=== PATIENT | male | born 1945 | race Caucasian/White ===

== ENCOUNTER 2021-02-17 13:57 | Observation (INO) | payer MEDICARE, SELFPAY ==
[2021-02-17] VITALS (8 sets, daily range): BP systolic 119–151; BP diastolic 77–97; PULSE 59–61; RESP 14–26; TEMP 36.3–37; O2SAT 90–99; BMI 18.9; BMI 19.3
--- NOTE | 2021-02-17 14:40 | EKG12_ITS ---
Test Reason : FATIGUE Blood Pressure : / mmHG Vent. Rate : 118 BPM Atrial Rate : 118 BPM P-R Int : 000 ms QRS Dur : 090 ms QT Int : 244 ms P-R-T Axes : 000 -89 -74 degrees QTc Int : 342 ms Electronic Atrial Pacemaker Low voltage QRS Left axis deviation Abnormal ECG Confirmed by ROSEANN BALES, ELIA ([id number]), editor newspaper BRANDO CHAVEZ ([id number]) on 02/21/2021 1:21:56 PM Referred By: ROBERT Confirmed By:ELIA WHITFIELD MD
--- NOTE | 2021-02-17 14:41 | EX.ED.DYSGE1 ---
HPI History of Present Illness Chief Complaint: Fatigue Detail of Chief Complaint: Fatigue and not feeling well for about a week Informant: patient Narrative Narrative: Patient presents to the emergency department complaining of feeling tired and having no energy for about a week or so. Patient had decreased p.o. intake and has early satiety. Patient has intermittent upper abdominal pain. He has history of a stent for AAA repair in his abdomen in 2012. Patient has shortness of breath and a cough that is chronic as he has COPD. Patient wears as needed oxygen at home mostly at night 4 L. Patient has pacemaker that is scheduled to be replaced soon as he has had it for 13 years. He denies any chest pain. He denies vomiting or diarrhea. He denies blood in stool or black tarry stool. Patient has been losing weight and has lost 20 to 25 pounds recently. Patient denies any fevers. He denies urinary symptoms. Prior similar symptoms: No PFSH PFS Medical History (Updated 02/17/21 @ 16:[address] Juan Pablo Hopper, DO) AAA (abdominal aortic aneurysm) COPD (chronic obstructive pulmonary disease) Coronary artery disease Emphysema lung High cholesterol Hypertension Myocardial infarct Pacemaker Home Medications albuterol sulfate 2.5 mg INHALATION Q6H PRN 02/17/21 [History Last Taken Unknown] aspirin 81 mg PO DAILY 02/17/21 [History Last Taken Unknown] atorvastatin 10 mg PO DAILY 02/17/21 [History Last Taken Unknown] budesonide-formoterol 2 puff INHALATION Q12H 02/17/21 [History Last Taken Unknown] folic acid 1 mg PO DAILY 02/17/21 [History Last Taken Unknown] ipratropium-albuterol 3 ml INHALATION Q6H 02/17/21 [History Last Taken Unknown] metoprolol tartrate 25 mg PO BID 02/17/21 [History Last Taken Unknown] midodrine 5 mg PO DAILY 02/17/21 [History Last Taken Unknown] nitroglycerin [Nitrostat] 0.4 mg SUBLINGUAL Q5M PRN 02/17/21 [History Last Taken Unknown] tiotropium bromide [Spiriva Respimat] 2 puff INHALATION DAILY 02/17/21 [History Last Taken Unknown] Allergy/AdvReac Type Severity Reaction Status Date / Time clopidogrel [From Plavix] Allergy Hives Verified 02/17/21 14:03 Penicillins Allergy Hives Verified 02/17/21 14:04 tamsulosin [From Flomax] Allergy Other Verified 02/17/21 14:03 Surgical History (Updated 02/17/21 @ 14:27 by Fouzia Villeda) Previous back surgery Social History Smoking Status: Current every day smoker tobacco type: cigarettes ROS ROS ED ROS Narrative Generalized weakness Constitutional Constitutional ED: Reports systems reviewed and no addt'l complaints, except as documented; Denies body ache(s), change in weight or chills Eyes Eyes: Denies acute decrease in peripheral vision, change in vision, double vision or loss of vision ENT ENT ED: Reports none; Denies ear pain, lip swelling, loss taste/smell, neck pain, otalgia or sore throat Cardiovascular Cardiovascular: Reports none; Denies abdominal pain, chest pain with activity, leg edema, lightheadedness, palpitations, rapid heart rate or syncope Respiratory/Chest Respiratory/Chest: Reports none, cough and dyspnea; Denies change in mental status, dry cough, hemoptysis, shortness of breath at rest or shortness of breath with exertion Gastrointestinal Gastrointestinal: Reports none and abdominal pain; Denies change in stool character, diarrhea, hematemesis, hematochezia, melena, rectal bleeding or vomiting Genitourinary Genitourinary ED: Reports none; Denies abdominal discomfort, anuria, dysuria, genital pain or polyuria Musculoskeletal Musculoskeletal: Reports none; Denies arthralgias, back pain, difficulty walking, extremity pain, muscle weakness or myalgias Integumentary Reports none; Denies abscess or rash Neurologic Neurologic: Reports none; Denies abnormal gait, confusion, focal weakness, frequent falls, headache(s), loss of vision, numbness, paresthesias, radicular pain, vertigo or weakness Psychiatric Psychiatric: Reports systems reviewed and no addt'l complaints, except as documented and none; Denies behavioral changes, confusion, difficulty concentrating, hallucinations, suicidal ideation, tactile hallucinations or visual hallucinations Endocrine Endocrinology: Denies none, cold intolerance, excessive sweating, fatigue or heat intolerance Hematologic/Lymphatic Hematologic/Lymphatic: Reports none; Denies anemia, easy bleeding or easy bruising Allergic/Immunologic Allergic/Immunologic ED: Denies as per HPI, none, lip swelling, mouth swelling, throat swelling, tongue swelling or hives EXAM Physical Exam Const Vital Signs: 02/17/21 13:59 02/17/21 14:15 02/17/21 14:58 Temperature 97.4 F L Temperature Source Temporal Pulse Rate 59 L 60 Respiratory Rate 14 20 H Respiratory Effort Normal Respiratory Pattern Normal Blood Pressure 124/81 H 119/77 Blood Pressure Mean 95 91 Pulse Ox 90 97 Oxygen Delivery Method Room Air Room Air 02/17/21 15:50 Temperature Temperature Source Pulse Rate 60 Respiratory Rate 16 Respiratory Effort Respiratory Pattern Blood Pressure 142/82 H Blood Pressure Mean 102 Pulse Ox 99 Oxygen Delivery Method Positive well nourished and well developed General Appearance ED: well developed and NAD HEENT Reports TM's clear and moist mucous membranes normocephalic and atraumatic; Negative for trauma or tenderness Tympanic Membrane ED: Yes TM's clear Eyes PERRL and EOMs intact bilaterally General Eye ED: Negative for pale conjunctiva or scleral icterus Neck no lymphadenopathy, supple and no JVD General: Negative for tenderness Chest Wall inspection of chest normal and palpation of chest normal Chest: Negative for tenderness Resp normal respiratory effort and clear to auscultation bilaterally Effort and Inspection: Negative for respiratory distress or pain with movement Auscultation: Negative for rhonchi, wheezes or diminished lung sounds Cardio regular rate, regular rhythm, S1 normal heart sound, S2 normal heart sound and no murmurs Peripheral Pulses: pulses 2+ throughout GI normal to inspection, nondistended, normoactive bowel sounds, soft to palpation, non-distended and no masses GI Narrative: Some mild tenderness in the epigastric region with mild guarding. There is no rebound, rigidity, or peritoneal signs. Palpation: tender Back/Spine no CVA tenderness and no thoracic nor lumbar tenderness Extremity normal to inspection General Extremety ED: Negative for edema General Extremity: Negative for edema Neuro oriented x3, CN's II-XII intact bilaterally, no sensory deficits noted and gait normal Sensorium / Orientation: awake, alert, oriented to person, oriented to place and oriented to time Motor Exam: strength 5/5 throughout and strength abnormal Psych mental status grossly normal Skin no rashes or lesions noted and no wounds MDM MDM MDM Narrative Medical decision making narrative: Patient was started on Rocephin 1 g IV. Family is concerned about patient going home as he is having hard time ambulating and generally is very weak. Case discussed with hospitalist will evaluate patient for possible admission. Lab Data Attestation: I reviewed the patient's lab results. Labs: Laboratory Results - last 24 hr 02/17/21 02/17/21 02/17/21 14:50 14:50 14:50 WBC 3.0 L RBC 3.67 L Hgb 11.1 L Hct 33.7 L MCV 91.8 MCH 30.2 MCHC 32.9 RDW Std Deviation 52.6 H RDW Coeff of Jimbo 15.5 H Plt Count 125 L MPV 10.5 Immature Gran % (Auto) 0.700 Neut % (Auto) 71.9 H Lymph % (Auto) 12.2 L [place] % (Auto) 14.2 H Eos % (Auto) 0.3 Baso % (Auto) 0.7 Absolute Neuts (auto) 2.2 Absolute Lymphs (auto) 0.37 L Nucleated RBC % 0 Differential Comment SCANNED Diff Path Review May foll Sodium 136 Potassium 4.1 Chloride 105 Carbon Dioxide 27.0 Anion Gap 4 L BUN 24 H Creatinine 1.15 Estim Creat Clear Calc 52.60 Est GFR (MDRD) Af Amer 80 Est GFR (MDRD) Non-Af 66 BUN/Creatinine Ratio 20.9 H Glucose 90 Lactic Acid 1.0 Calcium 8.6 Total Bilirubin 0.50 AST 26 ALT 18 Alkaline Phosphatase 55 Troponin I High Sens 10.6 Total Protein 6.1 L Albumin 2.9 L Globulin 3.2 Albumin/Globulin Ratio 0.9 Lipase 207 Urine Color Urine Clarity Urine pH Ur Specific [place] Urine Protein Urine Glucose (UA) Urine Ketones Urine Occult Blood Urine Nitrite Urine Bilirubin Urine Urobilinogen Ur Leukocyte Esterase Urine RBC Urine WBC Ur Squamous Epith Cells Urine Bacteria Urine Mucus 02/17/21 16:00 WBC RBC Hgb Hct MCV MCH MCHC RDW Std Deviation RDW Coeff of Jimbo Plt Count MPV Immature Gran % (Auto) Neut % (Auto) Lymph % (Auto) [place] % (Auto) Eos % (Auto) Baso % (Auto) Absolute Neuts (auto) Absolute Lymphs (auto) Nucleated RBC % Differential Comment Diff Path Review Sodium Potassium Chloride Carbon Dioxide Anion Gap BUN Creatinine Estim Creat Clear Calc Est GFR (MDRD) Af Amer Est GFR (MDRD) Non-Af BUN/Creatinine Ratio Glucose Lactic Acid Calcium Total Bilirubin AST ALT Alkaline Phosphatase Troponin I High Sens Total Protein Albumin Globulin Albumin/Globulin Ratio Lipase Urine Color Yellow Urine Clarity Cloudy Urine pH 6.0 Ur Specific [place] 1.020 Urine Protein 100 H Urine Glucose (UA) Normal Urine Ketones Negative Urine Occult Blood 25 H Urine Nitrite Positive H Urine Bilirubin Negative Urine Urobilinogen Normal Ur Leukocyte Esterase 500 H Urine RBC 0 SEEN Urine WBC 50-100 SEEN Ur Squamous Epith Cells 0-5 SEEN Urine Bacteria 4+ Urine Mucus 0 SEEN Radiography Diagnostic Testing: Radiology Impression Chest X-Ray 02/17/21 15:15 IMPRESSION: Pulmonary hyperinflation with no acute pulmonary abnormality. at 1546 Reported and signed by: Colton Alexander MD Electronically Signed: Colton Alexander MD at 15:44 EDT Tel , Service support , 1 view chest x-ray interpreted by myself as hyperinflation with no acute disease process. Radiology in agreement. EKG Initial EKG: Attestation: I personally reviewed and interpreted this EKG as follows: Comments: Ventricularly paced rhythm with nonspecific ST changes with a rate of 118 bpm Discharge Plan Triage Chief Complaint: Fatigue ED Provider: Juan Pablo Hopper Dx/Rx/DC Orders Clinical Impression: COVID-19, Acute UTI, Generalized weakness Prescriptions: No Action ipratropium-albuterol 0.5 mg-3 mg(2.5 mg base)/3 mL Solution For Nebulization 3 ml INHALATION Q6H RF: 0 albuterol sulfate 2.5 mg /3 mL (0.083 %) Solution For Nebulization 2.5 mg INHALATION Q6H PRN (Reason: Wheezing) RF: 0 atorvastatin 10 mg Tablet 10 mg PO DAILY RF: 0 midodrine 5 mg Tablet 5 mg PO DAILY RF: 0 nitroglycerin [Nitrostat] 0.4 mg Tablet, Sublingual 0.4 mg SUBLINGUAL Q5M PRN (Reason: Chest Pain) RF: 0 folic acid 1 mg Tablet 1 mg PO DAILY RF: 0 aspirin 81 mg Tablet 81 mg PO DAILY RF: 0 metoprolol tartrate 25 mg Tablet 25 mg PO BID RF: 0 budesonide-formoterol 160-4.5 mcg/actuation Hfa Aerosol Inhaler 2 puff INHALATION Q12H RF: 0 Spiriva Respimat 2.5 mcg/actuation Mist 2 puff INHALATION DAILY RF: 0 Referrals: Artemio Ivan [Other] Disposition Disposition: Acute Care Hospital [facility]
[2021-02-17] MEDS: 0.9% Normal Saline 1,000 ML 150 ML IV ×2 (15:03→20:54)
[2021-02-17 15:11] LABS: Absolute Lymphocyte Count 0.37 X10^3/uL (0.83-4.51); Absolute Neutrophil Count 2.2 X10^3/uL (2.0-7.7); Basophil# 0.02 X10^3/uL; Basophil% 0.7 % (0-1); Eosinophil# 0.01 X10^3/uL; Eosinophils% 0.3 % (0-5); Hematocrit 33.7 % (40-54); Hemoglobin 11.1 g/dL (13.0-16.5); Lymphocyte # 0.37 X10^3/ul (0.83-4.51); Lymphocyte % 12.2 % (19-41); Mean Corp Hgb Conc 32.9 g/dL (32-36); Mean Corpuscular Hgb 30.2 pg (27.0-32.0); Mean Corpuscular Volume 91.8 fL (80-94); Mean Platelet Vol. 10.5 fl (6.2-12.0); Monocyte# 0.43 X10^3/uL; Monocyte% 14.2 % (0-10); NRBC Flagged by Analyzer 0 % (0-5); Neutrophil # 2.18 X10^3/uL (2.7-7.7); Neutrophil % 71.9 % (47-70); POSITIVE DIFFERENTIAL YES; POSITIVE MORPHOLOGY YES; Platelet Count 125 K/mm3 (150-450); RBC Distribution Width CV 15.5 % (11.6-14.6); RBC Distribution Width SD 52.6 fl (35.1-43.9); Red Blood Count 3.67 M/mm3 (4.6-6.2)
--- NOTE | 2021-02-17 15:15 | RAD_ITS ---
EXAM: XR CHEST, 1 VIEW : 1945 CLINICAL INDICATION: dyspnea TECHNIQUE: Frontal view of the chest. This report was created using [employer] report generation technology. COMPARISON: None. FINDINGS: LUNGS AND PLEURAL SPACES: Lungs are mildly hyperinflated. No pneumothorax. No effusion. HEART: Unremarkable. Cardiac silhouette not enlarged. MEDIASTINUM: Central airways and mediastinal contour are unremarkable. BONES/JOINTS: Unremarkable. SOFT TISSUES: Unremarkable. TUBES, LINES AND DEVICES: Left-sided pacemaker is in good position. RAD/Chest 1 View (Portable) IMPRESSION: Pulmonary hyperinflation with no acute pulmonary abnormality. at 1546 Reported and signed by: Colton Alexander MD Electronically Signed: Colton Alexander MD at 15:44 EDT Tel , Service support ,
[2021-02-17 15:16] LABS: Differential Indicated SCAN CRITERIA MET
[2021-02-17 15:34] LABS: ALB/GLOB Ratio 0.9 RATIO (0.9-2.4); AST(SGOT) 26 U/L (15-37); Alanine Aminotransfer ALT/SGPT 18 U/L (16-61); Albumin, Serum 2.9 g/dL (3.2-5.0); Alkaline Phosphatase 55 U/L (45-117); Anion Gap 4 (5-15); BUN 24 mg/dL (7-18); BUN/Creat Ratio 20.9 RATIO (10-20); Calcium,Total 8.6 mg/dL (8.5-10.1); Chloride 105 mmol/L (98-107); Creatinine, Serum 1.15 mg/dL (0.70-1.30); EST Glomerular Filtration Rate 66 mL/min (>60); Est Glom Filt Rate - Afr Amer 80 mL/min (>60); Globulin 3.2 g/dL (2.2-4.2); Glucose 90 mg/dL (74-106); Lipase 207 U/L (73-393); Potassium 4.1 mmol/L (3.5-5.1); Protein, Total 6.1 g/dL (6.4-8.2); Sodium Level 136 mmol/L (136-145); Troponin-I HS 10.6 pg/mL (3.0-78.5)
[2021-02-17 15:49] LABS: Differential Comment SCANNED
[2021-02-17 16:05] LABS: Mucous, Urine 0 SEEN /hpf (<or=2+); Red Blood Cells-Urine 0 SEEN /hpf (0-5)
[2021-02-17 16:12] LABS: Color, Urine Yellow (Yellow); Glucose, Dipstick Normal (Normal); Ketone-Dipstick Negative (Negative); Leukocyte Esterase-Dipstick 500 /ul (Negative); Nitrite-Dipstick Positive (Negative); Occult Blood-Urine 25 /ul (Negative); Protein-Dipstick 100 mg/dl (Negative); Urine Bilirubin Dipstick Negative (Negative); Urine Clarity Cloudy (Clear); Urine Urobilinogen Normal (Normal)
[2021-02-17 16:22] LABS: White Blood Cells 50-100 SEEN /hpf (0-5)
[2021-02-17 16:23] LABS: Bacteria 4+ /hpf (None Seen); Squamous Epithelial Cells - UA 0-5 SEEN /hpf (0-5)
[2021-02-17] MEDS: Ceftriaxone 1 GM/50 ML BAG IV (16:55)
--- NOTE | 2021-02-17 17:28 | HP.PCM.HOS_ITS ---
HPI - General General Date of Admission: 02/17/21 Date of Service: 02/17/21 Chief Complaint: Generalized weakness, fatigue HPI Narrative DARIN CHUN, is a 76 M who presents to the emergency room at [facility] with chief complaint of generalized weakness and fatigue, he was seen at an emergency room in [facility] 2 days ago and he was felt to be dehydrated he was given IV fluids and sent home, he has not improved since then and he has become fatigued and the family states that they do not feel he is drinking or eating well. Patient denies any cough, shortness of breath, purulent sputum production, diarrhea, abdominal pain, or altered taste or smell. Patient has not had the Covid vaccine, he has not been around any individuals that knowingly had Covid. Work-up in the emergency room included labs which showed a leukopenia with a white cell count of 3, hemoglobin was 11.1, platelet count was 125,000, BUN was 94, and UA indicated a urinary tract infection with bacteria and white blood cells. Patient had a Covid antigen test performed which was positive, patient was not hypoxic in the emergency room-on room air his O2 sat was 94%, and patient's chest x-ray showed no evidence of infiltrates. Patient is on home O2 at night at 4 L. Patient was given IV Rocephin in the emergency room for acute cystitis, he will be placed in observation status on MedSurg for acute cystitis and debility, he will be given IV fluids, a PCR will be performed to verify that he has SARS 2 infection-I talked with the patient's POA who is his son and was in the room at the time of my examination, I talked to him about having the patient receive monoclonal antibody if he was able to be discharged tomorrow. He is in favor of this. Patient also has no objections to it. [facility] Medical History (Updated 02/17/21 @ 16:[address] Juan Pablo Hopper DO) AAA (abdominal aortic aneurysm) COPD (chronic obstructive pulmonary disease) Coronary artery disease Emphysema lung High cholesterol Hypertension Myocardial infarct Pacemaker Home Medications albuterol sulfate 2.5 mg INHALATION Q6H PRN 02/17/21 [History Last Taken Unkno wn] aspirin 81 mg PO DAILY 02/17/21 [History Last Taken Unknown] atorvastatin 10 mg PO DAILY 02/17/21 [History Last Taken Unknown] budesonide-formoterol 2 puff INHALATION Q12H 02/17/21 [History Last Taken Unknown] folic acid 1 mg PO DAILY 02/17/21 [History Last Taken Unknown] ipratropium-albuterol 3 ml INHALATION Q6H 02/17/21 [History Last Taken Unknown] metoprolol tartrate 25 mg PO BID 02/17/21 [History Last Taken Unknown] midodrine 5 mg PO DAILY 02/17/21 [History Last Taken Unknown] nitroglycerin [Nitrostat] 0.4 mg SUBLINGUAL Q5M PRN 02/17/21 [History Last Taken Unknown] tiotropium bromide [Spiriva Respimat] 2 puff INHALATION DAILY 02/17/21 [History Last Taken Unknown] Allergy/AdvReac Type Severity Reaction Status Date / Time clopidogrel [From Plavix] Allergy Hives Verified 02/17/21 14:03 Penicillins Allergy Hives Verified 02/17/21 14:04 tamsulosin [From Flomax] Allergy Other Verified 02/17/21 14:03 Surgical History (Updated 02/17/21 @ 14:27 by Fouzia Villeda) Previous back surgery Social History Smoking Status: Current every day smoker tobacco type: cigarettes ROS Constitutional Constitutional: Reports fatigue and weakness; Denies chills, fever(s), malaise or night sweats Eyes Eyes: Denies blurry vision, change in vision or double vision ENT HEENT: Denies abnormal hearing, dysphagia, ear pain, epistaxis, headache(s), hearing loss or nasal congestion Cardiovascular Cardiovascular: Denies chest pain, edema, lightheadedness, orthopnea, palpitations, paroxysmal nocturnal dyspnea or rapid heart rate Respiratory/Chest Respiratory/Chest: Reports dyspnea, shortness of breath with exertion and other Details: Patient has chronic dyspnea with exertion due to COPD ; Denies cough, productive cough or shortness of breath at rest Gastrointestinal Gastrointestinal: Denies abdominal pain, coffee ground emesis, constipation, diarrhea, dyspepsia or hematemesis Genitourinary Genitourinary: Denies burning urination, difficulty urinating, dysuria, hematuria, nocturia or urinary frequency Musculoskeletal Musculoskeletal: Denies arthralgias, back pain, joint pain, joint stiffness or joint swelling Neurologic Neurologic: Denies abnormal gait, abnormal speech, confusion, disequilibrium, dizziness or focal weakness Psychiatric Psychiatric: Denies anxiety, depression or homicidal ideation Endocrine Endocrinology: Denies cold intolerance, excessive sweating, heat intolerance or polydipsia Hematologic/Lymphatic Hematologic/Lymphatic: Denies anemia, easy bleeding or easy bruising Allergic/Immunologic Allergic/Immunologic: Denies eczemia or asthma Vital Signs Vital Signs Vital Signs: 02/17/21 13:59 02/17/21 14:15 02/17/21 14:58 Temperature 97.4 F L Temperature Source Temporal Pulse Rate 59 L 60 Respiratory Rate 14 20 H Respiratory Effort Normal Respiratory Pattern Normal Blood Pressure 124/81 H 119/77 Blood Pressure Mean 95 91 Pulse Ox 90 97 Oxygen Delivery Method Room Air Room Air 02/17/21 15:50 02/17/21 16:55 Temperature 98.6 F Temperature Source Oral Pulse Rate 60 60 Respiratory Rate 16 22 H Respiratory Effort Respiratory Pattern Blood Pressure 142/82 H 149/97 H Blood Pressure Mean 102 114 Pulse Ox 99 94 Oxygen Delivery Method Room Air Weight Weight: 67 kg Body Mass Index (BMI) 18.9 Physical Exam Const alert, oriented x3 and no apparent distress Constitutional Narrative: Patient appears frail and older than his stated age, he is in no distress General Appearance: cooperative, well kempt and well developed Orientation / Consciousness: awake, oriented to person, oriented to place and oriented to time HEENT normocephalic, head/scalp atraumatic, hearing grossly normal bilaterally and m oist oral mucous membranes Eyes PERRL, EOMs intact bilaterally and conjunctivae normal Neck nuchal rigidity, supple, no JVD, thyroid normal and no carotid bruits General: trachea midline Resp normal respiratory effort, no retractions, no use of accessory muscles and clear to auscultation bilaterally Resp Narrative: Breath sounds are distant bilaterally Auscultation: Negative for rales, rhonchi or wheezes Cardio regular rate, regular rhythm, S1 normal heart sound, S2 normal heart sound, no murmurs, no rub and no gallops Cardio Narrative: Patient has paced rhythm GI normal to inspection, nondistended, normoactive bowel sounds, soft to palpation, non-tender and non-distended Extremity normal to inspection and no clubbing, cyanosis or edema Skin no rashes or lesions noted, no wounds, skin turgor normal and no jaundice General Skin Exam: no breakdown Neuro oriented x3, CN's II-XII intact bilaterally, no focal motor deficits and no sensory deficits noted Sensorium / Orientation: awake and alert Speech: speech normal Psych thought process normal and affect normal Results Lab / Micro Data Result Diagrams: 02/17/21 14:50 02/17/21 14:50 Labs: Laboratory Results - last 24 hr 02/17/21 14:50: WBC 3.0 L, RBC 3.67 L, Hgb 11.1 L, Hct 33.7 L, MCV 91.8, MCH 30.2, MCHC 32.9, RDW Std Deviation 52.6 H, RDW Coeff of Jimbo 15.5 H, Plt Count 125 L, MPV 10.5, Immature Gran % (Auto) 0.700, Neut % (Auto) 71.9 H, Lymph % (Auto) 12.2 L, [place] % (Auto) 14.2 H, Eos % (Auto) 0.3, Baso % (Auto) 0.7, Absolute Neuts (auto) 2.2, Absolute Lymphs (auto) 0.37 L, Nucleated RBC % 0, Differential Comment SCANNED, Diff Path Review May foll 02/17/21 14:50: Sodium 136, Potassium 4.1, Chloride 105, Carbon Dioxide 27.0, Anion Gap 4 L, BUN 24 H, Creatinine 1.15, Estim Creat Clear Calc 52.60, Est GFR (MDRD) Af Amer 80, Est GFR (MDRD) Non-Af 66, BUN/Creatinine Ratio 20.9 H, Glucose 90, Calcium 8.6, Total Bilirubin 0.50, AST 26, ALT 18, Alkaline Phosphatase 55, Troponin I High Sens 10.6, Total Protein 6.1 L, Albumin 2.9 L, Globulin 3.2, Albumin/Globulin Ratio 0.9, Lipase 207 02/17/21 14:50: Lactic Acid 1.0 02/17/21 16:00: Urine Color Yellow, Urine Clarity Cloudy, Urine pH 6.0, Ur Specific [place] 1.020, Urine Protein 100 H, Urine Glucose (UA) Normal, Urine Ketones Negative, Urine Occult Blood 25 H, Urine Nitrite Positive H, Urine Bilirubin Negative, Urine Urobilinogen Normal, Ur Leukocyte Esterase 500 H, Urine RBC 0 SEEN, Urine WBC 50-100 SEEN, Ur Squamous Epith Cells 0-5 SEEN, Urine Bacteria 4+, Urine Mucus 0 SEEN Micro: Microbiology 02/17/21 15:00 Mucosa - Nose SARS-CoV-2 Antigen (Rapid) - Final Radiology Impression Chest X-Ray 02/17/21 15:15 IMPRESSION: Pulmonary hyperinflation with no acute pulmonary abnormality. at 1546 Reported and signed by: Colton Alexander MD Electronically Signed: Colton Alexander MD at 15:44 EDT Tel , Service support , Assessment & Plan Assessment/Plan (1) Acute UTI: PLAN: 1. Acute cystitis-patient will be admitted to [facility], he will receive IV Rocephin, CBC will be repeated tomorrow #2 acute debility secondary to multiple medical problems including acute cystitis and COPD #3 ? SARS 2 infection-patient does not have any evidence of pneumonia and he is not hypoxic, patient will be eligible for monoclonal antibody administration if he is indeed positive for SARS 2, I feel his antigen test may be a false positive, I have ordered a PCR test on the patient #4 chronic obstructive pulmonary disease #5 hyperlipidemia #6 dehydration-patient will be given IV fluids Charges/Coding Visit Charges OBSV E&M: 42170 Initial observation care L3
[2021-02-17 18:41] LABS: Probe Check PASS; Specimen Processing Control PASS
[2021-02-17] MEDS: Ipratropium/Albuterol Sulfate 3 ML AMPUL.NEB INHALATION (19:47)
[2021-02-17] MEDS: Atorvastatin Calcium 10 MG Tablet PO (20:55)
[2021-02-17] MEDS: Metoprolol Tartrate 25 MG Tablet PO (20:55)
[2021-02-17] MEDS: Acetaminophen 325 MG Tablet 650 MG PO (20:55)
[2021-02-18] VITALS (8 sets, daily range): BP systolic 109–143; BP diastolic 64–79; PULSE 59–64; RESP 16–22; TEMP 36.6–36.9; O2SAT 92–100
[2021-02-18 01:14] LABS: Ferritin 353 ng/mL (26-388); LDH 182 U/L (87-241); Magnesium 1.8 mg/dL (1.6-2.6)
[2021-02-18 01:18] LABS: D-Dimer Quantitative (DVT/PE) 1.14 FEU/ug/m (0.27-0.49)
--- NOTE | 2021-02-18 01:21 | CT_ITS ---
EXAM: CT ANGIOGRAPHY CHEST WITHOUT AND WITH INTRAVENOUS CONTRAST : 1945 CLINICAL INDICATION: ELEVATED D-DIMER, SUSPECTED PE TECHNIQUE: Helically acquired angiography images were obtained of the chest without and with intravenous contrast. This CT exam was performed using one or more of the following dose reduction techniques: automated exposure control, adjustment of the mA and/or kV according to patient size, and/or use of iterative reconstruction technique. This report was created using [employer] report generation technology. MIP reconstructed images were created and reviewed. CONTRAST: IV 75mL [id number] COMPARISON: None. FINDINGS: PULMONARY ARTERIES: Unremarkable. Normal in caliber. No evidence of pulmonary embolism. AORTA: Unremarkable. Normal in caliber. No evidence of dissection. GREAT VESSELS OF AORTIC ARCH: Unremarkable. Normal in caliber. No evidence of dissection. LUNGS AND PLEURAL SPACES: Bronchial wall thickening in the lower lobes. Moderate to severe emphysematous changes. Bibasilar scarring. No mass. No pleural effusion or thickening. No pneumothorax. HEART: Heart size is normal. Left chest pacer. No pericardial effusion. No signs of right heart strain. MEDIASTINUM: Benign calcified mediastinal and hilar lymph nodes. Esophagus is unremarkable. No hiatal hernia. THYROID: Unremarkable. No thyroid lesions. BONES/JOINTS: Diffuse degenerative changes of the spine. No suspicious lytic or blastic abnormality. CT/CTA Chest W/WO Contrast IMPRESSION: 1. No evidence of pulmonary embolism. 2. Moderate to severe emphysematous changes. 3. Bronchial wall thickening in the lower lobes. This is nonspecific but may indicate infectious or inflammatory bronchiolitis. Individualized dose optimization techniques were used for this CT. at 0326 Reported and signed by: Eron Varela MD Electronically Signed: Eron Varela MD at 3:26 EDT Tel , Service support ,
--- NOTE | 2021-02-18 01:30 | PCM.HOSP.N ---
Hospitalist Note Patient with positive COVID testing. Requested sputum cultures, respiratory viral panel and urine antigens, D-dimer, procalcitonin, CRP, CPK, Ferritin, LDH, trop and BNP, given oxygenation 94% on ED presentation, patient started on IV decadron x 10 doses, given presentation w/ history < 10 days, will also initiate IV remdesivir. D-dimer elevated with CTPA requested.
[2021-02-18] MEDS: Ipratropium/Albuterol Sulfate 3 ML AMPUL.NEB INHALATION ×2 (01:34→07:40)
[2021-02-18 01:35] LABS: Procalcitonin 0.08 ng/mL (0.00-0.09)
[2021-02-18 01:53] LABS: BNP,B-Type NATRIURETIC PEPTIDE 110.6 pg/mL (0-100)
[2021-02-18] MEDS: dexAMETHasone 4 MG/ML Vial 6 MG IV ×2 (01:59→08:36)
[2021-02-18] MEDS: 0.9% Normal Saline 1,000 ML 150 ML IV ×2 (04:30→12:10)
[2021-02-18 06:52] LABS: Absolute Lymphocyte Count 0.27 X10^3/uL (0.83-4.51); Absolute Neutrophil Count 1.5 X10^3/uL (2.0-7.7); Basophil# 0.01 X10^3/uL; Basophil% 0.5 % (0-1); Eosinophil# 0.01 X10^3/uL; Eosinophils% 0.5 % (0-5); Hematocrit 32.5 % (40-54); Hemoglobin 10.6 g/dL (13.0-16.5); Lymphocyte # 0.27 X10^3/ul (0.83-4.51); Lymphocyte % 14.1 % (19-41); Mean Corp Hgb Conc 32.6 g/dL (32-36); Mean Corpuscular Hgb 29.8 pg (27.0-32.0); Mean Corpuscular Volume 91.3 fL (80-94); Mean Platelet Vol. 10.7 fl (6.2-12.0); Monocyte% 5.2 % (0-10); NRBC Flagged by Analyzer 0 % (0-5); Neutrophil # 1.51 X10^3/uL (2.7-7.7); Neutrophil % 78.7 % (47-70); POSITIVE DIFFERENTIAL YES; POSITIVE MORPHOLOGY YES; Platelet Count 113 K/mm3 (150-450); RBC Distribution Width CV 15.2 % (11.6-14.6); RBC Distribution Width SD 51.1 fl (35.1-43.9); Red Blood Count 3.56 M/mm3 (4.6-6.2); White Blood Count 1.9 K/mm3 (4.4-11.0)
[2021-02-18 07:02] LABS: Differential Indicated SCAN CRITERIA MET
[2021-02-18 07:17] LABS: ALB/GLOB Ratio 0.9 RATIO (0.9-2.4); AST(SGOT) 25 U/L (15-37); Alanine Aminotransfer ALT/SGPT 16 U/L (16-61); Albumin, Serum 2.7 g/dL (3.2-5.0); Alkaline Phosphatase 53 U/L (45-117); Anion Gap 5 (5-15); BUN 20 mg/dL (7-18); Calcium,Total 8.2 mg/dL (8.5-10.1); Chloride 107 mmol/L (98-107); Creatinine, Serum 1.05 mg/dL (0.70-1.30); EST Glomerular Filtration Rate 73 mL/min (>60); Est Glom Filt Rate - Afr Amer 89 mL/min (>60); Estimated Creatinine Clearance 57.16 ml/min; Glucose 107 mg/dL (74-106); Protein, Total 5.7 g/dL (6.4-8.2); Sodium Level 136 mmol/L (136-145)
[2021-02-18 08:05] LABS: Differential Comment SCANNED; Reactive Lymphocyte 1+
[2021-02-18] MEDS: Enoxaparin 40 MG/0.4 ML Syringe SC (08:28)
[2021-02-18] MEDS: Folic Acid 1 MG Tablet PO (08:36)
[2021-02-18] MEDS: Aspirin 81 MG TAB.CHEW PO (08:36)
[2021-02-18] MEDS: Metoprolol Tartrate 25 MG Tablet PO (08:37)
[2021-02-18] MEDS: Midodrine HCl 5 MG Tablet PO (08:37)
[2021-02-18] MEDS: Ceftriaxone 1 GM/50 ML BAG IV (08:40)
[2021-02-18] MEDS: 0.9% Saline Lock 10 ML Syringe IV (08:43)
--- NOTE | 2021-02-18 11:17 | NURSING ---
this nurse reached out to Lakshmi Jolly METAL NUM[employer]ICAL CONTROL PROGRAMMER and Nathaniel Kiran RN director outpt services as requested by to arrange outpt treatment of monoclonal infusion, awaiting return calls.
--- NOTE | 2021-02-18 12:39 | PCM.DC ---
Discharge Instructions Diet Discharge Diet: No restrictions Activity Discharge Activity: Return to Normal Activity Dressing / Incision Call your doctor if you observe: Fever of 101 or Higher, Shortness of breath, Dizziness, Swelling in the ankles, Chest pain and Increased palpitations (irregular heartbeat) Follow Up Care Test Results: Test results from this visit will be discussed in further detail at your follow-up appointment, if applicable. Discharge Plan Admission Admit Date/Time: 02/17/21 17:11 Attending Provider: Navjot Lim Discharge Orders/Prescriptions Prescriptions: New cefdinir 300 mg capsule 300 mg PO BID 5 Days Qty: 10 RF: 0 Continued ipratropium-albuterol 0.5 mg-3 mg(2.5 mg base)/3 mL Solution For Nebulization 3 ml INHALATION Q6H RF: 0 albuterol sulfate 2.5 mg /3 mL (0.083 %) Solution For Nebulization 2.5 mg INHALATION Q6H PRN (Reason: Wheezing) RF: 0 atorvastatin 10 mg Tablet 10 mg PO DAILY RF: 0 midodrine 5 mg Tablet 5 mg PO DAILY RF: 0 nitroglycerin [Nitrostat] 0.4 mg Tablet, Sublingual 0.4 mg SUBLINGUAL Q5M PRN (Reason: Chest Pain) RF: 0 folic acid 1 mg Tablet 1 mg PO DAILY RF: 0 aspirin 81 mg Tablet 81 mg PO DAILY RF: 0 metoprolol tartrate 25 mg Tablet 25 mg PO BID RF: 0 budesonide-formoterol 160-4.5 mcg/actuation Hfa Aerosol Inhaler 2 puff INHALATION Q12H RF: 0 Spiriva Respimat 2.5 mcg/actuation Mist 2 puff INHALATION DAILY RF: 0 Referrals / Follow Up: Artemio Ivan [Other] - In 1 Week Artemio Ivan [Other] Disposition Disposition (needs filled in before D/C Order can be placed): Home, Self Care
--- NOTE | 2021-02-18 12:45 | DS.PCM_ITS ---
Providers Date of Admission: 02/17/21 Primary Care Physician: Artemio Ivan Reason For Visit: CYSTITIS, DEBILITY, SARS-2 Diagnosis Discharge Diagnosis (1) Acute UTI: Status: Acute Code(s): N39.0 - Urinary tract infection, site not specified Medications at Discharge Home Medications Spiriva Respimat 2 puff INHALATION DAILY 02/17/21 albuterol sulfate 2.5 mg INHALATION Q6H PRN 02/17/21 aspirin 81 mg PO DAILY 02/17/21 atorvastatin 10 mg PO DAILY 02/17/21 budesonide-formoterol 2 puff INHALATION Q12H 02/17/21 folic acid 1 mg PO DAILY 02/17/21 ipratropium-albuterol 3 ml INHALATION Q6H 02/17/21 metoprolol tartrate 25 mg PO BID 02/17/21 midodrine 5 mg PO DAILY 02/17/21 nitroglycerin [Nitrostat] 0.4 mg SUBLINGUAL Q5M PRN 02/17/21 cefdinir 300 mg PO BID 5 Days #10 cap 02/18/21 Hospital Course Operations None Procedures None Summary of Care Provided Minutes Spent on Discharge: 45 Hospital Course: Per HPI: DARIN CHUN, is a 76 M who presents to the emergency room at [facility] with chief complaint of generalized weakness and fatigue, he was seen at an emergency room in [facility] 2 days ago and he was felt to be dehydrated he was given IV fluids and sent home, he has not improved since then and he has become fatigued and the family states that they do not feel he is drinking or eating well. Patient denies any cough, shortness of breath, purulent sputum production, diarrhea, abdominal pain, or altered taste or smell. Patient has not had the Covid vaccine, he has not been around any individuals that knowingly had Covid. Work-up in the emergency room included labs which showed a leukopenia with a white cell count of 3, hemoglobin was 11.1, platelet count was 125,000, BUN was 94, and UA indicated a urinary tract infection with bacteria and white blood cells. Patient had a Covid antigen test performed which was positive, patient was not hypoxic in the emergency room-on room air his O2 sat was 94%, and patient's chest x-ray showed no evidence of infiltrates. Patient is on home O2 at night at 4 L. Patient was given IV Rocephin in the emergency room for acute cystitis, he will be placed in observation status on MedSurg for acute cystitis and debility, he will be given IV fluids, a PCR will be performed to verify that he has SARS 2 infection-I talked with the patient's POA who is his son and was in the room at the time of my examination, I talked to him about having the patient receive monoclonal antibody if he was able to be discharged tomorrow. He is in favor of this. Patient also has no objections to it. Hospital Course: 1. General fatigue and weakness secondary to acute UTI and [id number]-year-old male with history of emphysema presented to the hospital with shortness of breath as well as weakness. He is on chronic 4 L of oxygen at home as needed and he has not had to go up on his oxygen but he would did develop a little bit of a cough mild symptoms consistent with Covid however chest x-ray was unremarkable, he has been feeling weak for the last several days and had gone to an outside hospital for IV fluids. He was also found to have a UTI which is growing gram-negative rods. He is improved with Rocephin overnight he was sta rted on remdesivir and Decadron despite the lack of pulmonary findings. These were discontinued and he will be discharged today for outpatient follow-up and monoclonal antibody therapy for the Covid. He has received 2 doses of Rocephin, and will discharge home on 5 more days of cefdinir twice daily. Recommend that he follow-up with his PCP on discharge and that he also obtain the COVID-19 vaccine as an outpatient. He feels much better today than he did when he came in, I discussed with him the plan for discharge today and he expressed understanding of the risk and benefits of going home and would like to go home today. 2. Hypertension, hyperlipidemia, COPD are chronic medical conditions which complicate his care. His home medications were continued where appropriate. Physical Exam Const alert, oriented x3 and no apparent distress General Appearance: cooperative HEENT normocephalic and moist oral mucous membranes Eyes PERRL, EOMs intact bilaterally and conjunctivae normal Neck supple and no JVD Resp normal respiratory effort, no retractions, no use of accessory muscles and clear to auscultation bilaterally Auscultation: Negative for crackles, rales, rhonchi or wheezes Cardio regular rate, regular rhythm, S1 normal heart sound, S2 normal heart sound and no murmurs GI soft to palpation, non-tender and non-distended; Negative for hepatosplenomegaly Extremity no clubbing, cyanosis or edema Skin no rashes or lesions noted Neuro no focal motor deficits and no sensory deficits noted Psych affect normal Appearance: appropriate Weight / BMI Weight Weight: 146 lb 9 oz Body Mass Index (BMI) 19.3 ABG / Lab / Microbiology Data Result Diagrams: 02/18/21 06:30 02/18/21 06:30 Laboratory: Laboratory Results - last 24 hr 02/17/21 14:50: WBC 3.0 L, RBC 3.67 L, Hgb 11.1 L, Hct 33.7 L, MCV 91.8, MCH 30.2, MCHC 32.9, RDW Std Deviation 52.6 H, RDW Coeff of Jimbo 15.5 H, Plt Count 125 L, MPV 10.5, Immature Gran % (Auto) 0.700, Neut % (Auto) 71.9 H, Lymph % (Auto) 12.2 L, Daggett % (Auto) 14.2 H, Eos % (Auto) 0.3, Baso % (Auto) 0.7, Absolute Neuts (auto) 2.2, Absolute Lymphs (auto) 0.37 L, Nucleated RBC % 0, Differential Comment SCANNED, Diff Path Review November02/17/21 14:50: Sodium 136, Potassium 4.1, Chloride 105, Carbon Dioxide 27.0, Anion Gap 4 L, BUN 24 H, Creatinine 1.15, Estim Creat Clear Calc 52.60, Est GFR (MDRD) Af Amer 80, Est GFR (MDRD) Non-Af 66, BUN/Creatinine Ratio 20.9 H, Glu cose 90, Calcium 8.6, Total Bilirubin 0.50, AST 26, ALT 18, Alkaline Phosphatase 55, Troponin I High Sens 10.6, Total Protein 6.1 L, Albumin 2.9 L, Globulin 3.2, Albumin/Globulin Ratio 0.9, Lipase 207 02/17/21 14:50: Lactic Acid 1.0 02/17/21 14:50: Magnesium 1.8, Ferritin 353, Lactate Dehydrogenase 182, C-React Prot Ext Range 11.20 H 02/17/21 14:50: B-Natriuretic Peptide 110.6 H 02/17/21 16:00: Urine Color Yellow, Urine Clarity Cloudy, Urine pH 6.0, Ur Specific [place] 1.020, Urine Protein 100 H, Urine Glucose (UA) Normal, Urine Ketones Negative, Urine Occult Blood 25 H, Urine Nitrite Positive H, Urine Bilirubin Negative, Urine Urobilinogen Normal, Ur Leukocyte Esterase 500 H, Urine RBC 0 SEEN, Urine WBC 50-100 SEEN, Ur Squamous Epith Cells 0-5 SEEN, Urine Bacteria 4+, Urine Mucus 0 SEEN 02/17/21 17:26: COVID-19 ([facility]ADD) Positive 02/18/21 01:00: D-Dimer Quant (PE/DVT) 1.14 H* 02/18/21 01:00: Procalcitonin 0.08 02/18/21 06:30: WBC 1.9 L, RBC 3.56 L, Hgb 10.6 L, Hct 32.5 L, MCV 91.3, MCH 29.8, MCHC 32.6, RDW Std Deviation 51.1 H, RDW Coeff of Jimbo 15.2 H, Plt Count 113 L, MPV 10.7, Immature Gran % (Auto) 1.000 H, Neut % (Auto) 78.7 H, Lymph % (Auto) 14.1 L, Dag[place] % (Auto) 5.2, Eos % (Auto) 0.5, Baso % (Auto) 0.5, Absolute Neuts (auto) 1.5 L, Absolute Lymphs (auto) 0.27 L, Nucleated RBC % 0, Differential Comment SCANNED, Diff Path Review May foll, Reactive Lymphocytes 1+ 02/18/21 06:30: Sodium 136, Potassium 4.0, Chloride 107, Carbon Dioxide 24.0, Anion Gap 5, BUN 20 H, Creatinine 1.05, Estim Creat Clear Calc 57.16, Est GFR (MDRD) Af Amer 89, Est GFR (MDRD) Non-Af 73, BUN/Creatinine Ratio 19.0, Glucose 107 H, Calcium 8.2 L, Total Bilirubin 0.40, AST 25, ALT 16, Alkaline Phosphatase 53, Total Protein 5.7 L, Albumin 2.7 L, Globulin 3.0, Albumin/Globulin Ratio 0.9 Microbiology: Microbiology 02/18/21 02:30 Interface Orders Gram Stain - Final 02/18/21 02:30 Interface Orders Streptococcus pneumoniae Antigen (M - Final 02/17/21 16:00 Urine, Clean Catch Urine Culture - Preliminary GNR lactose gerontological nurse practitioner 02/17/21 17:26 Mucosa - Nasopharyngeal Respiratory Panel (PCR) - Final 02/18/21 02:50 Interface Orders Legionella Antigen - Final 02/17/21 15:00 Mucosa - Nose SARS-CoV-2 Antigen (Rapid) - Final Radiography Diagnostic Testing: Radiology Impression Chest X-Ray 02/17/21 15:15 IMPRESSION: Pulmonary hyperinflation with no acute pulmonary abnormality. at 1546 Reported and signed by: Colton Alexander MD Electronically Signed: Colton Alexander MD at 15:44 EDT Tel , Service support , Chest CTA 02/18/21 01:21 IMPRESSION: 1. No evidence of pulmonary embolism. 2. Moderate to severe emphysematous changes. 3. Bronchial wall thickening in the lower lobes. This is nonspecific but may indicate infectious or inflammatory bronchiolitis. Individualized dose optimization techniques were used for this CT. at 0326 Reported and signed by: Eron Varela MD Electronically Signed: Eron Varela MD at 3:26 EDT Tel , Service support , D/C Instructions Discharge Diet: No restrictions Call your doctor if you observe: Fever of 101 or Higher, Shortness of breath, Dizziness, Swelling in the ankles, Chest pain and Increased palpitations (irregular heartbeat) Meaningful Use Info Meaningful Use Diagnoses (Choose all that apply): None applicable Discharge Plan Admission Admit Date/Time: 02/17/21 17:11 Attending Provider: Navjot Lim Discharge Orders/Prescriptions Prescriptions: New cefdinir 300 mg capsule 300 mg PO BID 5 Days Qty: 10 RF: 0 Continued ipratropium-albuterol 0.5 mg-3 mg(2.5 mg base)/3 mL Solution For Nebulization 3 ml INHALATION Q6H RF: 0 albuterol sulfate 2.5 mg /3 mL (0.083 %) Solution For Nebulization 2.5 mg INHALATION Q6H PRN (Reason: Wheezing) RF: 0 atorvastatin 10 mg Tablet 10 mg PO DAILY RF: 0 midodrine 5 mg Tablet 5 mg PO DAILY RF: 0 nitroglycerin [Nitrostat] 0.4 mg Tablet, Sublingual 0.4 mg SUBLINGUAL Q5M PRN (Reason: Chest Pain) RF: 0 folic acid 1 mg Tablet 1 mg PO DAILY RF: 0 aspirin 81 mg Tablet 81 mg PO DAILY RF: 0 metoprolol tartrate 25 mg Tablet 25 mg PO BID RF: 0 budesonide-formoterol 160-4.5 mcg/actuation Hfa Aerosol Inhaler 2 puff INHALATION Q12H RF: 0 Spiriva Respimat 2.5 mcg/actuation Mist 2 puff INHALATION DAILY RF: 0 Referrals / Follow Up: Artemio Ivan [Other] - In 1 Week Artemio Ivan [Other] Disposition Disposition (needs filled in before D/C Order can be placed): Home, Self Care Charges/Coding Visit Charges OBSV E&M: 29564 Observation care discharge
--- NOTE | 2021-02-18 13:20 | CASEMGMT ---
STANISLAW HAQ Assessment: Face to Face with pt for initial transition planning/care coordination assessment. STANISLAW HAQ introduced self and role at [facility], pt voices understanding and consents to assessment. Pt is A/O x4 and answers all questions appropriately at this time. Pt sitting up in chair in no distress. Pt states he needs to use the restroom. Assessment answered between pt and his grandson via tc Navjot Sandoval who is DPOA. Care providers, pharmacy, and demographics verified/updated. Admitting Dx: cystitis, debility, SARS-2 PCP: [facility] Specialists:v belt coverer, grandson unaware of name Preferred Pharmacy: [facility] for medications for this admission Insurance: [employer] [facility] Prescription Benefit: yes LW/HPOA: Pt has LW/DPOA. Pt grandson gave copy of DPOA to ER lastnight. DPOA is Navjot stock. LNOK: Navjot Sandoval, grandson; Corey Varma, dtr in law, Rabia Perla, sig other Living Arrangements: Pt lives with sig other, dtr in law in a two story house. Pt uses main level. Pt indep with ADL's and denies concerns at home. Pt has two steps to enter home. Transportation: Pt drives self and denies concerns with transportation. DME/HHC/SNF: Pt has access to cane and walker although does not use at home. Pt uses 3L O2 at through [facility]. Pt denies any previous HHC or SNF stays. Pt has a bedroom and bathroom that he can use while he is in quarantine. His family is able to obtain groceries and supplies for him. He is aware of the need to quarantine. Pt states no concerns with going home at time of dc. Pt states no further concerns/needs. CM to follow. Advised pt to ask CM if any further question/concerns/needs arise, voices understanding. Pt Goal: Home with family support Plan: Home with family support
[2021-02-18 13:29] LABS: Pathologist Review Reviewed
[2021-02-18 13:36] LABS: Pathologist Review Reviewed
== END 2021-02-18 16:48 | disposition home or self-care (01) ==
LOC: ED 17:02 → MS3 17:46
PROVIDERS: Family Medicine; Admitting Provider Internal Medicine; Emergency Provider Emergency Medicine; Visit Provider Family Medicine
DX: U07.1 COVID-19 (principal); N30.00 Acute cystitis without hematuria; I25.10 Atherosclerotic heart disease of native coronary artery without angina pectoris; J43.9 Emphysema, unspecified; I10 Essential (primary) hypertension; I25.2 Old myocardial infarction; F17.210 Nicotine dependence, cigarettes, uncomplicated; E78.5 Hyperlipidemia, unspecified; E86.0 Dehydration; R06.02 Shortness of breath; Z79.899 Other long term (current) drug therapy; Z79.82 Long term (current) use of aspirin; Z99.81 Dependence on supplemental oxygen; Z95.0 Presence of cardiac pacemaker; Z23 Encounter for immunization
CPT/HCPCS: 36415; 71045; 71275; 80053; 81001; 82728; 83605; 83615; 83690; 83735; 83880; 84145; 84484; 85025; 85379; 86140; 87070; 87077; 87086; 87088; 87186; 87205; 87426; 87449; 87633; 87635; 93005; 94640; 94762; 96361; 96365; 96366; 96372; 96375; 96376; 97162; 97166; 97802; 99218; 99284; 99406; J7030; J7050; M0243; Q9967; U0005; A4216; G0378; Q0244; U0003

== ENCOUNTER 2021-02-18 16:54 | Outpatient (CLI) | payer MEDICARE, SELFPAY ==
[2021-02-18 13:36] VITALS: BMI 19.3
[2021-02-18 17:13] VITALS: BP 129/71; PULSE 60; RESP 20; TEMP 36.4; O2SAT 94
[2021-02-18 17:16] VITALS: BMI 19.1
[2021-02-18] MEDS: 0.9% Saline Lock 10 ML Syringe IV ×2 (17:16→17:52)
[2021-02-18 17:26] VITALS: BP 124/72; PULSE 60; RESP 20; TEMP 36.4; O2SAT 93
[2021-02-18 17:52] VITALS: BP 146/82; PULSE 60; RESP 20; TEMP 36.4; O2SAT 96
[2021-02-18 18:22] VITALS: BP 140/76; PULSE 60; RESP 20; TEMP 36.6; O2SAT 95
[2021-02-18 18:52] VITALS: BP 136/85; PULSE 60; RESP 20; TEMP 36.4; O2SAT 95
[2021-02-18 18:54] VITALS: BP 136/85; PULSE 60; RESP 20; TEMP 36.4; O2SAT 95
== END 2021-02-18 19:12 | disposition home or self-care (01) ==
LOC: MEDOUTP 16:57 → MS3 16:57
PROVIDERS: Visit Provider Nurse Practitioner Acute Care
DX: Z00.00 Encounter for general adult medical examination without abnormal findings (principal)
CPT/HCPCS: J7050; M0243; A4216; Q0244

== ENCOUNTER → 2021-03-12 12:03 | Outpatient (CLI) | payer MEDICARE, SELFPAY ==
[2021-03-12 15:12] LABS: Absolute Lymphocyte Count 0.47 X10^3/uL (0.83-4.51); Absolute Neutrophil Count 4.7 X10^3/uL (2.0-7.7); Basophil# 0.03 X10^3/uL; Basophil% 0.5 % (0-1); Eosinophils% 3.3 % (0-5); Hematocrit 31.7 % (40-54); Hemoglobin 9.8 g/dL (13.0-16.5); Lymphocyte # 0.47 X10^3/ul (0.83-4.51); Lymphocyte % 7.8 % (19-41); Mean Corp Hgb Conc 30.9 g/dL (32-36); Mean Corpuscular Hgb 30.5 pg (27.0-32.0); Mean Corpuscular Volume 98.8 fL (80-94); Mean Platelet Vol. 10.4 fl (6.2-12.0); Monocyte# 0.57 X10^3/uL; Monocyte% 9.5 % (0-10); NRBC Flagged by Analyzer 0 % (0-5); Neutrophil # 4.72 X10^3/uL (2.7-7.7); Neutrophil % 78.2 % (47-70); POSITIVE DIFFERENTIAL YES; Platelet Count 151 K/mm3 (150-450); RBC Distribution Width CV 17.2 % (11.6-14.6); RBC Distribution Width SD 61.5 fl (35.1-43.9); Red Blood Count 3.21 M/mm3 (4.6-6.2)
[2021-03-12 15:15] LABS: Differential Indicated SCAN CRITERIA MET
[2021-03-12 15:29] LABS: AST(SGOT) 22 U/L (15-37); Alanine Aminotransfer ALT/SGPT 40 U/L (16-61); Albumin, Serum 3.1 g/dL (3.2-5.0); Alkaline Phosphatase 58 U/L (45-117); Anion Gap 4 (5-15); BUN 26 mg/dL (7-18); BUN/Creat Ratio 26.4 RATIO (10-20); Calcium,Total 9.3 mg/dL (8.5-10.1); Chloride 104 mmol/L (98-107); Creatinine, Serum 0.98 mg/dL (0.70-1.30); EST Glomerular Filtration Rate 79 mL/min (>60); Est Glom Filt Rate - Afr Amer 95 mL/min (>60); Globulin 3.2 g/dL (2.2-4.2); Glucose 96 mg/dL (74-106); Protein, Total 6.3 g/dL (6.4-8.2); Sodium Level 136 mmol/L (136-145)
[2021-03-12 15:48] LABS: Anisocytosis 1+; Macrocytosis RARE; Platelet Estimate ADEQUATE (ADEQ); Red Cell Morphology N CHROM NORMAL (NORM C&C)
[2021-03-13 09:32] LABS: Vitamin B12 481 pg/mL (211-911)
[2021-03-13 09:37] LABS: Iron 38 ug/dL (65-175); Iron Binding Capacity,Total 279 ug/dL (250-450); PERCENT IRON SATURATION 13.6 % (15.0-55.0); Thyroid Stim Hormone (TSH) 5.28 uIU/mL (0.358-3.74)
[2021-03-13 13:05] LABS: Free T3 2.6 pg/mL (2.18-3.98); T4 Free Direct 0.88 ng/dL (0.76-1.46)
== END ==
LOC: BIMLAB 12:04
PROVIDERS: PCP Internal Medicine; Referring Provider Internal Medicine; Visit Provider Internal Medicine
DX: J44.9 Chronic obstructive pulmonary disease, unspecified (principal); D72.819 Decreased white blood cell count, unspecified; D64.9 Anemia, unspecified; R79.89 Other specified abnormal findings of blood chemistry
CPT/HCPCS: 36415; 80053; 82306; 82607; 83540; 83550; 84439; 84443; 84481; 85025

== ENCOUNTER → 2021-06-04 12:37 | Outpatient (CLI) | payer MEDICARE, SELFPAY ==
[2021-06-04 13:34] LABS: AST(SGOT) 14 U/L (15-37); Alanine Aminotransfer ALT/SGPT 13 U/L (16-61); Albumin, Serum 3.5 g/dL (3.2-5.0); Alkaline Phosphatase 75 U/L (45-117); Bilirubin, Direct 0.13 mg/dL (0.00-0.30); Cholesterol 142 mg/dL (200); Globulin 3.4 g/dL (2.2-4.2); High Density Lipoprotein 43 mg/dL; Protein, Total 6.9 g/dL (6.4-8.2); Triglycerides 77 mg/dL; Very Low Density Lipoprotein 15 mg/dL (5-40)
[2021-06-04 13:57] LABS: Free T3 2.3 pg/mL (2.18-3.98); T4 Free Direct 0.88 ng/dL (0.76-1.46); Thyroid Stim Hormone (TSH) 1.74 uIU/mL (0.358-3.74)
== END ==
PROVIDERS: PCP Internal Medicine; Referring Provider Internal Medicine Cardiovascular Disease; Visit Provider Internal Medicine Cardiovascular Disease
DX: R79.89 Other specified abnormal findings of blood chemistry (principal); E78.00 Pure hypercholesterolemia, unspecified
CPT/HCPCS: 36415; 80061; 80076; 84439; 84443; 84481

== ENCOUNTER 2021-06-04 12:58 | Emergency (ER) | payer MEDICARE, SELFPAY ==
[2021-06-04 12:59] VITALS: BP 150/92; PULSE 62; RESP 16; TEMP 36.4; O2SAT 100; BMI 21.5
--- NOTE | 2021-06-04 13:05 | RAD_ITS ---
STUDY: X-RAY - LEFT WRIST REASON FOR EXAM: Male, 76 years old. PAIN TECHNIQUE: 3 view(s) of the wrist were obtained. COMPARISON: None. FINDINGS: No acute fracture. No acute dislocation. Osteopenia. Cyst/erosions of the distal radius, ulna and lunate. Moderate first carpometacarpal joint arthrosis. Mild intercarpal joint arthrosis. Mild radiocarpal joint arthrosis. Chondrocalcinosis. Moderate soft tissue swelling. RAD/Wrist min 3 Views IMPRESSION: Left wrist intact Inflammatory arthropathy with joint space narrowing and cyst/erosions Chondrocalcinosis with moderate soft tissue swelling Electronically Signed: Mike Rodgers DO at 13:31 EST Tel , Service support ,
--- NOTE | 2021-06-04 15:22 | EDS_ITS ---
HPI History of Present Illness Chief Complaint: Upper Extremity Injury Informant: patient Onset/Context/Timing Onset: Month(s) (-07/21) Context: Gradual Onset Timing: Continuous Quality of Pain: Sharp Location: Left wrist Worsened by: Movement, lifting things Relieved by: Nothing Narrative Narrative: Patient presents with left wrist pain that has been getting worse for the past 1-1/2 months. Patient denies any trauma or injury. Patient states it has gradually gotten worse. Patient states the pain is worse with any movement or lifting things. Patient describes his pain as sharp. Patient denies any paresthesias or weakness. Patient denies any radiation of the pain. Patient states he feels a cracking sensation in his wrist. [facility] Medical History AAA (abdominal aortic aneurysm) Atherosclerotic heart disease of [place] coronary artery without angina pectoris Atrial fibrillation Atrial tachycardia Bilateral carotid artery stenosis Carotid artery stenosis Chest pain COPD (chronic obstructive pulmonary disease) Coronary artery disease Emphysema lung Essential hypertension First degree AV block GERD (gastroesophageal reflux disease) High cholesterol Mixed hyperlipidemia Myocardial infarct Paroxysmal atrial fibrillation Presence of permanent cardiac pacemaker (~04/09/21) Presence of stent in coronary artery (~1996) Sick sinus syndrome Smoker Symptomatic bradycardia Home Medications Spiriva Respimat 2 puff INHALATION DAILY 02/17/21 [History Last Taken Unknown] albuterol sulfate 2.5 mg INHALATION Q6H PRN 02/17/21 [History Last Taken Unknown] aspirin 81 mg PO DAILY 02/17/21 [History Last Taken Unknown] atorvastatin 10 mg PO DAILY 02/17/21 [History Last Taken Unknown] budesonide-formoterol 2 puff INHALATION Q12H 02/17/21 [History Last Taken Unknown] folic acid 1 mg PO DAILY 02/17/21 [History Last Taken Unknown] ipratropium-albuterol 3 ml INHALATION Q6H 02/17/21 [History Last Taken Unknown] midodrine 5 mg PO DAILY 02/17/21 [History Last Taken Unknown] metoprolol tartrate 25 mg tablet 25 mg PO BID #180 tab 05/23/21 [Rx Last Taken Unknown] nitroglycerin 0.4 mg sublingual tablet 0.4 mg SUBLINGUAL Q5-15M PRN #23 tab 05/23/21 [Rx Last Taken Unknown] meloxicam 15 mg PO DAILY #10 tab 11/16/21 [Rx Last Taken Unknown] Allergy/AdvReac Type Severity Reaction Status Date / Time clopidogrel [From Plavix] Allergy Hives Verified 06/04/21 13:01 Penicillins Allergy Hives Verified 06/04/21 13:01 tamsulosin [From Flomax] Allergy Other Verified 06/04/21 13:01 Family History Other Breast cancer CVA (cerebral vascular accident) Cancer Heart disease Hypertension Myocardial infarction Parkinson disease Surgical History History of AAA (abdominal aortic aneurysm) repair (~01/31/16) History of bilateral cataract extraction History of carpal tunnel release History of coronary artery stent placement History of hernia repair Presence of coronary angioplasty implant and graft (~1996) Previous back surgery Social History Smoking Status: Light Smoker (<10/day) alcohol intake: former substance use type: does not use caffeine: Yes Type: coffee Number of servings: 2 ROS ROS ED Constitutional Constitutional ED: Denies chills or fever(s) Eyes Eyes: Denies blurry vision or change in vision ENT ENT ED: Denies rhinorrhea or sore throat Cardiovascular Cardiovascular: Denies chest pain or palpitations Respiratory/Chest Respiratory/Chest: Reports cough; Denies dyspnea Gastrointestinal Gastrointestinal: Denies nausea or vomiting Genitourinary Genitourinary ED: Denies dysuria or hematuria Musculoskeletal Musculoskeletal: Reports back pain; Denies neck pain Integumentary Denies abscess or rash Neurologic Neurologic: Denies headache(s) or weakness Allergic/Immunologic Allergic/Immunologic ED: Denies mouth swelling or urticaria EXAM Physical Exam Const Vital Signs: 06/04/21 12:59 Temperature 97.6 F L Temperature Source Temporal Pulse Rate 62 Respiratory Rate 16 Blood Pressure 150/92 H Blood Pressure Mean 111 Pulse Ox 100 Oxygen Delivery Method Room Air Positive well nourished and well developed General Appearance ED: well developed HEENT Reports moist mucous membranes Neck full ROM and supple Extremity Extremity Narrative: There is some mild tenderness over the left wrist. There is a bony prominence over the radial styloid. There is no tenderness over the anatomic snuffbox. There is no edema or erythema. There is no warmth. There is also a ganglion cyst noted over the posterior aspect of the left wrist. Range of motion was slightly limited in all motions of the left wrist secondary to pain. There is also some tenderness of the left long finger. There is some mild edema. There is no ecchymosis or deformity. Radial pulses are equal bilateral. Sensation was intact to light touch in the radial, median, and ulnar areas. Strength is 5/5 in the radial, median, and ulnar areas. Neuro oriented x3, CN's II-XII intact bilaterally, moves all extremities, no focal motor deficits and no sensory deficits noted Sensorium / Orientation: alert Psych mental status grossly normal MDM MDM MDM Narrative Medical decision making narrative: X-rays of the left wrist were obtained. There are 3 views. On my interpretation, there is no acute fracture. There is no dislocation. There is no soft tissue swelling. Radiologist also interpreted the x-rays and agrees. Patient, was advised of his findings. Patient was instructed to elevate the left wrist. Patient was given a prescription for meloxicam. Patient was given a Velcro wrist splint. Patient was instructed to follow-up with his primary care physician in 5 to 7 days. Patient understood and was agreeable with the plan. All questions were answered. 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 Instructions: ED Osteoarthritis Prescriptions: New meloxicam 15 mg tablet 15 mg PO DAILY Qty: 10 RF: 0 No Action nitroglycerin [Nitrostat] 0.4 mg tablet, sublingual 0.4 mg SUBLINGUAL Q5-15M PRN (Reason: Chest Pain) Qty: 23 RF: 2 metoprolol tartrate 25 mg tablet 25 mg PO BID Qty: 180 RF: 4 ipratropium-albuterol 0.5 mg-3 mg(2.5 mg base)/3 mL Solution For Nebulization 3 ml INHALATION Q6H RF: 0 albuterol sulfate 2.5 mg /3 mL (0.083 %) Solution For Nebulization 2.5 mg INHALATION Q6H PRN (Reason: Wheezing) RF: 0 atorvastatin 10 mg Tablet 10 mg PO DAILY RF: 0 midodrine 5 mg Tablet 5 mg PO DAILY RF: 0 folic acid 1 mg Tablet 1 mg PO DAILY RF: 0 aspirin 81 mg Tablet 81 mg PO DAILY RF: 0 budesonide-formoterol 160-4.5 mcg/actuation Hfa Aerosol Inhaler 2 puff INHALATION Q12H RF: 0 Spiriva Respimat 2.5 mcg/actuation Mist 2 puff INHALATION DAILY RF: 0 Primary Care Provider: Brittany Persaud Referrals: Brittany Persaud MD [Primary Care Provider] - 5-7 Days Disposition Disposition: Home, Self Care Discharge Date/Time: 06/04/21 15:47
== END 2021-06-04 15:47 | disposition home or self-care (01) ==
PROVIDERS: Emergency Provider Emergency Medicine; PCP Internal Medicine
DX: M19.032 Primary osteoarthritis, left wrist (principal); R79.89 Other specified abnormal findings of blood chemistry; E78.00 Pure hypercholesterolemia, unspecified; F17.200 Nicotine dependence, unspecified, uncomplicated; I25.10 Atherosclerotic heart disease of native coronary artery without angina pectoris; Z95.0 Presence of cardiac pacemaker; Z95.5 Presence of coronary angioplasty implant and graft
CPT/HCPCS: 36415; 73110; 80061; 80076; 84439; 84443; 84481; 99283

== ENCOUNTER 2021-07-29 10:50 | Outpatient (CLI) | payer MEDICARE, SELFPAY ==
[2021-07-29 12:06] LABS: Absolute Neutrophil Count 5.1 X10^3/uL (2.0-7.7); Basophil# 0.08 X10^3/uL; Basophil% 1.2 % (0-1); Eosinophil# 0.16 X10^3/uL; Eosinophils% 2.4 % (0-5); Hematocrit 39.7 % (40-54); Hemoglobin 12.4 g/dL (13.0-16.5); Lymphocyte % 8.9 % (19-41); Mean Corp Hgb Conc 31.2 g/dL (32-36); Mean Corpuscular Hgb 29.5 pg (27.0-32.0); Mean Corpuscular Volume 94.3 fL (80-94); Mean Platelet Vol. 10.6 fl (6.2-12.0); Monocyte# 0.76 X10^3/uL; Monocyte% 11.3 % (0-10); NRBC Flagged by Analyzer 0 % (0-5); Neutrophil # 5.13 X10^3/uL (2.7-7.7); Neutrophil % 75.9 % (47-70); POSITIVE DIFFERENTIAL YES; Platelet Count 192 K/mm3 (150-450); RBC Distribution Width CV 14.9 % (11.6-14.6); RBC Distribution Width SD 51.9 fl (35.1-43.9); Red Blood Count 4.21 M/mm3 (4.6-6.2); White Blood Count 6.8 K/mm3 (4.4-11.0)
[2021-07-29 12:11] LABS: Differential Indicated SCAN CRITERIA MET
[2021-07-29 12:31] LABS: Anion Gap 5 (5-15); BUN 20 mg/dL (7-18); BUN/Creat Ratio 17.7 RATIO (10-20); Chloride 108 mmol/L (98-107); Creatinine, Serum 1.13 mg/dL (0.70-1.30); EST Glomerular Filtration Rate 67 mL/min (>60); Est Glom Filt Rate - Afr Amer 81 mL/min (>60); Glucose 81 mg/dL (74-106); Iron 36 ug/dL (65-175); Iron Binding Capacity,Total 253 ug/dL (250-450); PERCENT IRON SATURATION 14.2 % (15.0-55.0); PSA,Total - Annual Screen 1.53 ng/mL (0.00-4.00); Potassium 4.1 mmol/L (3.5-5.1); Sodium Level 141 mmol/L (136-145)
== END 2021-07-29 23:59 | disposition short-term general hospital (02) ==
LOC: BIMLAB 10:51
PROVIDERS: PCP Internal Medicine; Referring Provider Internal Medicine; Visit Provider Internal Medicine
DX: D72.819 Decreased white blood cell count, unspecified (principal); J43.9 Emphysema, unspecified; I10 Essential (primary) hypertension; D64.9 Anemia, unspecified; Z12.5 Encounter for screening for malignant neoplasm of prostate
CPT/HCPCS: 36415; 80048; 82746; 83540; 83550; 84153; 85025; G0103

== ENCOUNTER → 2021-12-02 | Outpatient (CLI) | payer MEDICARE, SELFPAY ==
--- NOTE | 2021-12-02 07:05 | CDU_ITS ---
Reason For Study: carotid stenosis Rt. Velocities/BP Lt. Velocities/BP Prox CCA 79.9/26.5 cm/sec. Prox CCA 89.3/22.3 cm/sec. Mid CCA 78.6/20.0 cm/sec. Mid CCA 76.1/25.6 cm/sec. Dist CCA 66.9/17.3 cm/sec. Dist CCA 65.1/19.0 cm/sec. Prox ICA 55.3/13.5 cm/sec. Prox ICA 82.7/28.6 cm/sec. Mid ICA 130.1/42.5 cm/sec. Mid ICA 118.3/37.2 cm/sec. Dist ICA 118.3/29.8 cm/sec. Dist ICA 109.7/39.7 cm/sec. Rt. ICA/CCA = 1.7. Lt. ICA/CCA = 1.6. Prox ECA 81.2/8.2 cm/sec. Prox ECA 58.6/8.0 cm/sec. Rt. Vert. 56.9/12.6 cm/sec. Lt. Vert. 50.7/18.8 cm/sec. Right Extracranial There is homogeneous, smooth atherosclerotic plaque noted in the right common carotid artery. There is heterogeneous, irregular atherosclerotic plaque noted in the right internal carotid artery. There is heterogeneous, irregular atherosclerotic plaque noted in the right external carotid artery. Antegrade flow is noted in the right vertebral artery. Left Extracranial There is homogeneous, smooth atherosclerotic plaque noted in the left common carotid artery. There is heterogeneous, irregular atherosclerotic plaque noted in the left internal carotid artery. There is heterogeneous, irregular atherosclerotic plaque noted in the left external carotid artery. Antegrade flow is noted in the left vertebral artery. Procedure Carotid Duplex 64709. This is a Carotid Duplex examination using B-mode, color flow and specral Doppler. The exam was diagnostic. Exam performed in department. VL/Carotid Duplex Ultrasound Interpretation Summary Mild (<50%) stenosis right extracranial internal carotid. Mild (<50%) stenosis left extracranial internal carotid. Flow within the vertebral arteries is antegrade bilaterally. Ordering Physician: Bronson Beard Performed By: Cecilio Marie RVT
--- NOTE | 2021-12-02 12:14 | STRESSREP ---
Stress Test Report Date: 12-02-2021 Procedure: Pharmacologic stress nuclear imaging study Indications: Chest pain; CAD; PCI; history of atrial fibrillation; history of permanent pacemaker Consent: Per the patient Procedure: The patient underwent pharmacologic (Regadenoson 0.4mg ) evaluation with a peak heart rate of 71 beats per minute (48%predicted maximal heart rate) and a peak blood pressure of 182/88 mmHg. The baseline ECG demonstrated electronic atrial pacemaker. The peak pharmacologic ECG demonstrated no obvious ECG changes. There were no cardiac dysrhythmias pretest, during pharmacologic infusion, or recovery. There was no complaint of chest discomfort during pharmacologic infusion or recovery. The examination was discontinued secondary to completion of protocol. Impression: 1. Pharmacologic (Regadenoson) evaluation 2. Peak pharmacologic ECG with no obvious ECG changes. 3. There were no cardiac dysrhythmias pretest, during pharmacologic infusion, or recovery. 4. Nuclear images pending Myocardial perfusion imaging study: Technique: The patient was injected with 11.9 millicuries of technetium 99m Cardiolite and subsequently rest SPECT Cardiolite nuclear imaging was obtained in the horizontal long, vertical long, and short axis views. The patient underwent pharmacologic (Regadenoson) evaluation with a peak heart rate of 71 beats per minute (48% percent predicted maximal heart rate) and a peak blood pressure of 182/88 mmHg. The patient was injected with 33.1 millicuries of technetium 99m Cardiolite and subsequently stress SPECT Cardiolite nuclear imaging was obtained in the horizontal long, vertical long, and short axis views. A gated Cardiolite study at peak stress was obtained. Interpretation: Rest and stress SPECT Cardiolite nuclear imaging status post realignment, normalization, and attenuation correction demonstrate relative uniform tracer uptake and myocardial perfusion appearing within normal limits. There is end systolic thickening and brightening. The gated Cardiolite study demonstrates myocardial thickening and inward wall motion. The reported LVEF is 69%. Impression: 1. Rest and stress SPECT Cardiolite nuclear imaging demonstrate relative uniform tracer uptake and myocardial perfusion appearing within normal limits. 2. The gated Cardiolite study reports an LVEF of 69%. This note was generated with [employer] ([employer]ation software. It may contain incorrect words, spelling, and punctuation that were not noted in checking the note before signing.
== END | disposition home or self-care (01) ==
LOC: CVS 07:04
PROVIDERS: PCP Internal Medicine; Referring Provider Internal Medicine Cardiovascular Disease; Visit Provider Internal Medicine Cardiovascular Disease
DX: R07.9 Chest pain, unspecified (principal); I71.4 Abdominal aortic aneurysm, without rupture; I48.0 Paroxysmal atrial fibrillation; I49.5 Sick sinus syndrome; I25.10 Atherosclerotic heart disease of native coronary artery without angina pectoris; I65.23 Occlusion and stenosis of bilateral carotid arteries; E78.2 Mixed hyperlipidemia; I10 Essential (primary) hypertension; R00.1 Bradycardia, unspecified; Z95.0 Presence of cardiac pacemaker; Z95.5 Presence of coronary angioplasty implant and graft
CPT/HCPCS: 78452; 93017; 93880; A9500; A4216; J2785

== ENCOUNTER → 2022-01-17 | Outpatient (CLI) | payer MEDICARE, SELFPAY ==
[2022-01-17 13:37] VITALS: PULSE 60; PULSE 63; PULSE 72; PULSE 79; PULSE 81; PULSE 83; PULSE 84; PULSE 91; O2SAT 93; O2SAT 94; O2SAT 95; O2SAT 96; O2SAT 97; O2SAT 98
--- NOTE | 2022-01-18 07:21 | PCM.PSN.6M ---
PSN 6 Minute Walk Test 6 Minute Walk Test 6 Minute Walk Test: 6 Minute Walk Test PSN:6-Minute Walk Test Start: 01/17/22 13:21 Freq: Status: Active Protocol: [id number].[id number] Document 01/17/22 13:37 DAVID (Rec: 01/17/22 13:39 DAVID [id number]) 6 Minute Walk Test Date Performed 01/17/22 Time Performed 12:45 Height 6 ft 2 in Weight: 156 lb Weight in Pounds 156.[address]: Chencho Madison Assistive device used: None Pre-test Oxygen Delivery Method Room Air Pulse Ox (%) 98 Pulse Rate (60-100 beats/min) 60 Dyspnea Arabella Scale (0-10) 3 Exertion Arabella Scale (6-20) 6 1st minute Oxygen Delivery Method Room Air Pulse Ox (%) 93 Pulse Rate (60-100 beats/min) 72 2nd minute Oxygen Delivery Method Room Air Pulse Ox (%) 97 Pulse Rate (60-100 beats/min) 81 3rd minute Oxygen Delivery Method Room Air Pulse Ox (%) 94 Pulse Rate (60-100 beats/min) 83 Number of Rests Taken 1 4th minute Oxygen Delivery Method Room Air Pulse Ox (%) 97 Pulse Rate (60-100 beats/min) 79 5th minute Oxygen Delivery Method Room Air Pulse Ox (%) 96 Pulse Rate (60-100 beats/min) 84 6th minute Oxygen Delivery Method Room Air Pulse Ox (%) 97 Pulse Rate (60-100 beats/min) 91 Dyspnea Arabella Scale (0-10) 5 Exertion Arabella Scale (6-20) 14 Post-test Oxygen Delivery Method Room Air Pulse Ox (%) 95 Pulse Rate (60-100 beats/min) 63 Full Laps Walked 14 Partial Lap, Number of Tiles Walked 20 Total Distance Walked (ft) 846 Interpretation Interpretation: The patient ambulated 846 feet over the course of 6 minutes beginning on room air without assistive devices. Pretesting oxygen saturation was noted to be 98% on room air. With ambulation, the [place] oxygen saturation was 93%. This represents a significant exertional oxygen desaturation. Recommendations Recommendations: There is no indication for the use of supplemental oxygen at this time.
== END | disposition home or self-care (01) ==
LOC: PSN 12:43
PROVIDERS: PCP Internal Medicine; Referring Provider Internal Medicine Critical Care Medicine; Visit Provider Internal Medicine Critical Care Medicine
DX: J44.9 Chronic obstructive pulmonary disease, unspecified (principal)
CPT/HCPCS: 94618

== ENCOUNTER → 2022-01-23 | Outpatient (CLI) | payer MEDICARE, SELFPAY ==
--- NOTE | 2022-01-24 05:44 | PFTCOMP_ITS ---
COMPLETE PULMONARY FUNCTION TEST INTERPRETATION Brief HPI: Patient is a 77-year-old male, currently under the care of myself, who presents to [facility] for complete pulmonary function tests secondary to diagnosis of COPD. Respiratory therapist reports good effort and reproducible results. Interpretation: Forced expiration spirometry shows a very severe large airways obstructive ventilatory defect with an FEV1 of 30% predicted. There is no significant bronchodilator response by strict ATS criteria. Spirograms are of good quality and plateau slowly, indicating slowly emptying areas of the lungs. The respiratory flow volume loop shows decreased expiratory flow rates at all lung volumes consistent with airway obstruction. Lung volumes by body plethysmography show a normal total lung capacity at 8.13 L, 110% predicted. FRC and RV are elevated out of proportion. Lung volume loida urements are consistent with hyperinflation and air-trapping. Diffusion capacity by carbon monoxide is decreased at 47% predicted. The airway resistance is elevated. No previous pulmonary function tests were available for review. Impression: Irreversible very severe large airways obstructive ventilatory defect with a symmetric reduction diffusion capacity, resulting in air trapping with hyperinflation, and a pattern consistent with advanced COPD.
== END | disposition home or self-care (01) ==
LOC: PSN 12:30
PROVIDERS: PCP Internal Medicine; Referring Provider Internal Medicine Critical Care Medicine; Visit Provider Internal Medicine Critical Care Medicine
DX: J44.9 Chronic obstructive pulmonary disease, unspecified (principal)
CPT/HCPCS: 94060; 94726; 94729

== ENCOUNTER → 2022-01-28 | Outpatient (CLI) | payer MEDICARE, SELFPAY ==
--- NOTE | 2022-01-28 12:49 | CT_ITS ---
STUDY: CT BRAIN WITHOUT CONTRAST REASON FOR EXAM: Male, 77 years old. New daily persistent headache, frontal RADIATION DOSAGE (If Supplied By Facility): CTDIvol = ( 47.06 ) mGy, DLP = ( 890.33 ) mGycm TECHNIQUE: Transaxial CT imaging of the brain was performed without administration of intravenous contrast material. Individualized dose optimization techniques were used for this CT. COMPARISON: No relevant priors. FINDINGS: Normal soft tissue structures. Normal calvarium. There is mild cerebral atrophy with widening of the extra-axial spaces and ventricular dilatation. Normal white matter tracts of the cerebral hemispheres. Normal basal ganglia and thalami. Normal brainstem. Normal cerebellum. There is no intracranial hemorrhage. There are no findings of an acute ischemic infarction. Atherosclerotic plaque formation of the cavernous portions of the internal carotid arteries bilaterally. Normal visualized paranasal sinuses. CT/Brain/Head without Contrast IMPRESSION: Chronic involutional changes of the brain. Electronically Signed: Lico Torrez MD at 14:03 EDT ,
== END | disposition home or self-care (01) ==
LOC: CT 12:48
PROVIDERS: PCP Internal Medicine; Referring Provider Internal Medicine; Visit Provider Internal Medicine
DX: G44.52 New daily persistent headache (NDPH) (principal)
CPT/HCPCS: 70450

== ENCOUNTER → 2022-01-29 | Outpatient (CLI) | payer MEDICARE, SELFPAY ==
[2022-01-29 17:33] LABS: Absolute Lymphocyte Count 1.35 X10^3/uL (0.83-4.51); Absolute Neutrophil Count 6.6 X10^3/uL (2.0-7.7); Basophil# 0.09 X10^3/uL; Eosinophil# 0.22 X10^3/uL; Eosinophils% 2.4 % (0-5); Hematocrit 39.8 % (40-54); Hemoglobin 13.1 g/dL (13.0-16.5); Lymphocyte # 1.35 X10^3/ul (0.83-4.51); Mean Corp Hgb Conc 32.9 g/dL (32-36); Mean Corpuscular Hgb 31.3 pg (27.0-32.0); Mean Corpuscular Volume 95.2 fL (80-94); Mean Platelet Vol. 10.3 fl (6.2-12.0); Monocyte# 0.69 X10^3/uL; Monocyte% 7.7 % (0-10); NRBC Flagged by Analyzer 0 % (0-5); Neutrophil # 6.64 X10^3/uL (2.7-7.7); Neutrophil % 73.7 % (47-70); Platelet Count 228 K/mm3 (150-450); RBC Distribution Width CV 14.7 % (11.6-14.6); RBC Distribution Width SD 51.6 fl (35.1-43.9); Red Blood Count 4.18 M/mm3 (4.6-6.2)
[2022-01-29 17:34] LABS: Erythrocyte Sedimentation Rate 7 mm/hr (0-20)
[2022-01-29 17:49] LABS: ALB/GLOB Ratio 1.2 RATIO (0.9-2.4); AST(SGOT) 12 U/L (15-37); Alanine Aminotransfer ALT/SGPT 17 U/L (16-61); Albumin, Serum 3.9 g/dL (3.2-5.0); Alkaline Phosphatase 83 U/L (45-117); Anion Gap 4 (5-15); BUN 35 mg/dL (7-18); Calcium,Total 9.5 mg/dL (8.5-10.1); Chloride 109 mmol/L (98-107); Creatinine, Serum 1.94 mg/dL (0.70-1.30); EST Glomerular Filtration Rate 36 mL/min (>60); Est Glom Filt Rate - Afr Amer 44 mL/min (>60); Globulin 3.3 g/dL (2.2-4.2); Glucose 98 mg/dL (74-106); Potassium 4.3 mmol/L (3.5-5.1); Protein, Total 7.2 g/dL (6.4-8.2); Sodium Level 141 mmol/L (136-145)
== END | disposition home or self-care (01) ==
PROVIDERS: PCP Internal Medicine
DX: I10 Essential (primary) hypertension (principal); G44.52 New daily persistent headache (NDPH)
CPT/HCPCS: 80053; 85025; 85652

== ENCOUNTER → 2022-03-19 | Outpatient (CLI) | payer MEDICARE, SELFPAY ==
[2022-03-19 10:31] LABS: Absolute Lymphocyte Count 1.01 X10^3/uL (0.83-4.51); Absolute Neutrophil Count 4.4 X10^3/uL (2.0-7.7); Basophil# 0.09 X10^3/uL; Basophil% 1.5 % (0-1); Eosinophil# 0.22 X10^3/uL; Eosinophils% 3.6 % (0-5); Hematocrit 39.4 % (40-54); Hemoglobin 12.8 g/dL (13.0-16.5); Lymphocyte # 1.01 X10^3/ul (0.83-4.51); Lymphocyte % 16.3 % (19-41); Mean Corp Hgb Conc 32.5 g/dL (32-36); Mean Corpuscular Hgb 31.4 pg (27.0-32.0); Mean Corpuscular Volume 96.8 fL (80-94); Monocyte# 0.48 X10^3/uL; Monocyte% 7.8 % (0-10); NRBC Flagged by Analyzer 0 % (0-5); Neutrophil # 4.36 X10^3/uL (2.7-7.7); Neutrophil % 70.5 % (47-70); Platelet Count 226 K/mm3 (150-450); RBC Distribution Width CV 14.6 % (11.6-14.6); Red Blood Count 4.07 M/mm3 (4.6-6.2); White Blood Count 6.2 K/mm3 (4.4-11.0)
[2022-03-19 10:57] LABS: Anion Gap 2 (5-15); BUN 26 mg/dL (7-18); BUN/Creat Ratio 18.4 RATIO (10-20); Calcium,Total 9.6 mg/dL (8.5-10.1); Chloride 108 mmol/L (98-107); Creatinine, Serum 1.41 mg/dL (0.70-1.30); EST Glomerular Filtration Rate 52 mL/min (>60); Est Glom Filt Rate - Afr Amer 63 mL/min (>60); Glucose 89 mg/dL (74-106); Iron 73 ug/dL (65-175); Iron Binding Capacity,Total 248 ug/dL (250-450); PERCENT IRON SATURATION 29.4 % (15.0-55.0); Potassium 4.7 mmol/L (3.5-5.1); Sodium Level 141 mmol/L (136-145)
[2022-03-19 11:10] LABS: AST(SGOT) 17 U/L (15-37); Alanine Aminotransfer ALT/SGPT 20 U/L (16-61); Albumin, Serum 3.7 g/dL (3.2-5.0); Alkaline Phosphatase 88 U/L (45-117); Bilirubin, Direct 0.18 mg/dL (0.00-0.30); Cholesterol 104 mg/dL (200); Globulin 3.5 g/dL (2.2-4.2); High Density Lipoprotein 41 mg/dL; Protein, Total 7.2 g/dL (6.4-8.2); Triglycerides 58 mg/dL; Very Low Density Lipoprotein 12 mg/dL (5-40)
== END | disposition home or self-care (01) ==
LOC: LAB 10:15
PROVIDERS: Nurse Practitioner Family; PCP Internal Medicine; Referring Provider Internal Medicine; Visit Provider Internal Medicine
DX: G44.52 New daily persistent headache (NDPH) (principal); J96.11 Chronic respiratory failure with hypoxia; I47.1 Supraventricular tachycardia; R79.89 Other specified abnormal findings of blood chemistry; I25.10 Atherosclerotic heart disease of native coronary artery without angina pectoris; E78.2 Mixed hyperlipidemia; E61.1 Iron deficiency; Z99.81 Dependence on supplemental oxygen
CPT/HCPCS: 36415; 80048; 80061; 80076; 83540; 83550; 85025

== ENCOUNTER 2022-08-22 13:24 | Observation (INO) | payer MEDICARE, SELFPAY ==
[2022-08-22] VITALS (14 sets, daily range): BP systolic 86–184; BP diastolic 44–103; PULSE 79–115; RESP 18–28; TEMP 36.8–37.7; O2SAT 82–98; BMI 23.1; BMI 20.5
--- NOTE | 2022-08-22 14:08 | RAD_ITS ---
STUDY: X-RAY CHEST REASON FOR EXAM: Male, 77 years old. SOB TECHNIQUE: Single AP portable view of the chest. COMPARISON: Comparison is made with prior study 02/17/2021. FINDINGS: EKG electrodes are seen. There is hyperinflation of the lungs consistent with chronic obstructive lung disease (COPD). Mild linear scarring at the right lung base. There is no demonstrated pleural abnormality. Normal size heart. A left-sided dual-chamber pacemaker is seen. Normal mediastinum and jonah. Normal visualized pulmonary arteries. Normal visualized aortic arch and descending thoracic aorta. There are diffuse degenerative changes of the visualized thoracic spine. Normal visualized ribs, clavicles, and shoulders. There is no demonstrated abnormality of the visualized soft tissue structures of the upper abdomen. RAD/Chest 1 View (Portable) IMPRESSION: Hyperinflation. Mild linear scarring at the right lung base. Electronically Signed: Lico Torrez MD at 15:00 EST ,
--- NOTE | 2022-08-22 14:08 | EKG12_ITS ---
Test Reason : Blood Pressure : / mmHG Vent. Rate : 098 BPM Atrial Rate : 098 BPM P-R Int : 222 ms QRS Dur : 092 ms QT Int : 346 ms P-R-T Axes : 086 -89 -42 degrees QTc Int : 441 ms Sinus rhythm with 1st degree A-V block Left axis deviation Nonspecific ST abnormality Abnormal ECG Confirmed by JAMIR BALES, YOGESH ([id number]), magazine editor ANJALI BEDNER ([id number]) on 08/25/2022 11:10:52 AM Referred By: NIRMALA Confirmed By:YOGESH BOWIE MD
--- NOTE | 2022-08-22 14:14 | EX.ED.DYSGE1 ---
HPI History of Present Illness Chief Complaint: Shortness of Breath Informant: patient Narrative Narrative: Patient presents with upper complaints. 1 is that he feels he has been short of breath. He has a history of COPD. He states he has been wheezing a little bit more off and on for a week or so. No real cough that is different. He did turn his oxygen up from 3 to 4 L at home. He states even at 4 L he had oxygen saturations down in the 70%. But it sounds like he has a very long oxygen tube. We are getting oxygen levels at 97% with 4 L here. He also complains of dysuria frequency and actually urinary incontinence which is new for him. This is all within the last 2 days. He is also noted some blood in the urine. He is on Eliquis and has been taking it 5 mg twice a day. This is for history of intermittent A. fib. He said he had some tightness in his chest when the breathing was bad but no pain. No back pain. He has had a AAA with stents he is having no abdominal or back pain in that area. He is also had cardiac stents before. He lives at home with family members. But he states he is very weak. He has not been vomiting or having nausea. He may have had fevers but has not checked at home. No change in medications recently. [facility] Medical History (Updated 08/22/22 @ 22:[address] Randy Ojeda MD) AAA (abdominal aortic aneurysm) Atherosclerotic heart disease of [place] coronary artery without angina pectoris Atrial fibrillation Atrial tachycardia Bilateral carotid artery stenosis Carotid artery stenosis Chest pain COPD (chronic obstructive pulmonary disease) Coronary artery disease Emphysema lung Essential hypertension First degree AV block GERD (gastroesophageal reflux disease) High cholesterol Mixed hyperlipidemia Myocardial infarct Paroxysmal atrial fibrillation Presence of permanent cardiac pacemaker (~04/09/21) Presence of stent in coronary artery (~1996) Severe protein-calorie malnutrition Sick sinus syndrome Smoker Symptomatic bradycardia Home Medications albuterol sulfate 2.5 mg/3 mL (0.083 %) solution for nebulization 2.5 mg inhalation Q6H PRN Wheezing 02/17/21 [History Last Taken 3 Days Ago ~08/19/22] aspirin 81 mg tablet 81 mg PO DAILY 02/17/21 [History Last Taken 08/21/22] folic acid 1 mg tablet 1 mg PO DAILY 02/17/21 [History Last Taken Unknown] ipratropium 0.5 mg-albuterol 3 mg (2.5 mg base)/3 mL nebulization soln 3 ml inhalation Q6H 02/17/21 [History Last Taken 3 Days Ago ~08/19/22] albuterol sulfate 90 mcg/actuation aerosol inhaler See Rx Instructions .Route .COMPLEX #8.5 grams 08/22/21 [Rx Last Taken 08/22/22] nitroglycerin 0.4 mg sublingual tablet (Nitrostat) 0.4 mg sublingual Q5-15M PRN Chest Pain #23 tabs 10/24/21 [Rx Last Taken Unknown] cholecalciferol (vitamin D3) 50 mcg (2,000 unit) capsule 50 mcg PO DAILY 01/08/22 [History Last Taken 08/21/22] ferrous sulfate 325 mg (65 mg iron) tablet (Feosol) 325 mg PO DAILY 01/08/22 [History Last Taken 08/21/22] apixaban 5 mg tablet (Eliquis) 5 mg PO BID #60 tabs 02/11/22 [Rx Last Taken 08/21/22] atorvastatin 10 mg tablet 10 mg PO DAILY #90 tabs 02/14/22 [Rx Last Taken 08/21/22] lisinopril 10 mg tablet 10 mg PO DAILY #90 tabs 02/14/22 [Rx Last Taken 08/21/22] midodrine 5 mg tablet 5 mg PO DAILY #90 tabs 02/14/22 [Rx Last Taken 08/21/22] tiotropium bromide 2.5 mcg/actuation mist for inhalation (Spiriva Respimat) 2 puff inhalation DAILY #4 grams 03/21/22 [Rx Last Taken 08/21/22] fluticasone propionate 50 mcg/actuation nasal spray,suspension (Flonase Allergy Relief) 2 spray intranasal DAILY #16 grams 05/22/22 [Rx Last Taken 08/21/22] metoprolol tartrate 50 mg tablet 50 mg PO BID #180 tabs 07/04/22 [Rx Last Taken 08/09/22] budesonide-formoterol HFA 160 mcg-4.5 mcg/actuation aerosol inhaler (Symbicort) See Rx Instructions .Route .COMPLEX #10.2 grams 07/31/22 [Rx Last Taken 08/21/22] Allergy/AdvReac Type Severity Reaction Status Date / Time clopidogrel [From Plavix] Allergy Hives Verified 08/22/22 13:28 Penicillins Allergy Hives Verified 08/22/22 13:28 tamsulosin [From Flomax] Allergy Other Verified 08/22/22 13:28 Family History Other Breast cancer CVA (cerebral vascular accident) Cancer Heart disease Hypertension Myocardial infarction Parkinson disease Surgical History History of AAA (abdominal aortic aneurysm) repair (~01/31/16) History of bilateral cataract extraction History of carpal tunnel release History of coronary artery stent placement History of hernia repair Presence of coronary angioplasty implant and graft (~1996) Previous back surgery Social History Smoking Status: Current every day smoker tobacco type: cigarettes Tobacco: How many years used: 66 Electronic Cigarette Use: not used second hand exposure: No alcohol intake: former substance use type: does not use caffeine: Yes Type: coffee Number of servings: 2 ROS ROS ED Constitutional Constitutional ED: Reports subjective Eyes Eyes: Denies change in vision ENT ENT ED: Denies rhinorrhea or sore throat Cardiovascular Cardiovascular: Denies chest pain, palpitations or racing heartbeat Respiratory/Chest Respiratory/Chest: Reports cough and dyspnea; Denies sputum Gastrointestinal Gastrointestinal: Denies abdominal pain, nausea or vomiting Genitourinary Genitourinary ED: Reports dysuria, hematuria and urinary frequency Musculoskeletal Musculoskeletal: Denies arthralgias, back pain, myalgias or neck pain Integumentary Denies rash Neurologic Neurologic: Denies headache(s) Endocrine Endocrinology: Denies polydipsia or polyuria Hematologic/Lymphatic Hematologic/Lymphatic: Reports easy bleeding and easy bruising Allergic/Immunologic Allergic/Immunologic ED: Denies urticaria EXAM Physical Exam Const Vital Signs: 08/22/22 13:26 08/22/22 13:24 08/22/22 14:24 Temperature 99.8 F H Temperature Source Temporal Pulse Rate 115 H 95 Respiratory Rate 26 H Respiratory Effort Short of Breath Respiratory Depth Shallow Respiratory Pattern Tachypnea Blood Pressure 184/103 H Blood Pressure Mean 130 Pulse Ox 82 95 Oxygen Delivery Method Nasal Cannula Nasal Cannula Nasal Cannula Oxygen Flow Rate (L/min) 3 4 08/22/22 14:34 08/22/22 15:45 08/22/22 15:46 Temperature 98.4 F Temperature Source Oral Pulse Rate 79 97 96 Respiratory Rate 20 H 22 H 18 Respiratory Effort Respiratory Depth Respiratory Pattern Normal Blood Pressure 121/60 H Blood Pressure Mean 80 Pulse Ox 94 95 Oxygen Delivery Method Nasal Cannula Nasal Cannula Oxygen Flow Rate (L/min) 3 3 08/22/22 16:53 Temperature Temperature Source Pulse Rate 99 Respiratory Rate 24 H Respiratory Effort Respiratory Depth Respiratory Pattern Blood Pressure 113/64 Blood Pressure Mean 80 Pulse Ox 96 Oxygen Delivery Method Nasal Cannula Oxygen Flow Rate (L/min) 3 Positive well nourished and well developed General Appearance ED: well developed and NAD; Negative for pallor HEENT Reports dry mucous membranes Mouth ED: Yes dry mucous membranes Mouth: dry mucous membranes Eyes General Eye ED: Negative for pale conjunctiva or scleral icterus Neck supple and no JVD Chest Wall inspection of chest normal Resp Resp Narrative: Overall quiet breath sounds. There is just a very subtle wheeze but not notable. His saturation was measured at 82% on nasal cannula. But he is actually 97% on 4 L nasal cannula while I am in the room. This shows no hypoxia currently Cardio regular rhythm Rate: tachycardic and other Other Details: Heart rate is tachycardic. But he does look to be in sinus rhythm on the monitor. He has a history of A. fib. GI normal to inspection, nondistended, normoactive bowel sounds, non-tender and non-distended Back/Spine no CVA tenderness Neuro oriented x3 Sensorium / Orientation: alert Psych mental status grossly normal Skin no rashes or lesions noted General Skin Exam: Negative for jaundice or pallor MDM MDM MDM Narrative Medical decision making narrative: My independent interpretation of his chest x-ray shows some mild basilar atelectasis. No acute infiltrative process. Likely COPD. Final reading by radiology shows hyperinflation and mild scarring Patient's CBC shows mild elevation of his white count at 13 4 with mild anemia at 11.0. Platelets normal. Electrolytes showed mild elevation of the creatinine at 1.47 showing some mild dehydration. Troponin is negative. Lactate was elevated 2.3. His urine showed 5-10 white cells along with positive nitrites and leukocyte Estrace. I did look back on prior cultures done in February 2021. With a urinalysis that was similar, he did end up growing out E. coli. I then noted that at that time it was resistant to Levaquin. I had given him Levaquin here because he had both pulmonary and urinary symptoms and had significant allergy to penicillin [place] with hives and trouble breathing. We discussed the patient and the above issues with the hospitalist that he will be brought in the hospital. His daughter did come in. She states he has been very weak for the last day. He is not able to get up and easily move around at home. He is too weak to get up on his own and this is not normal for him. Lab Data Attestation: I reviewed the patient's lab results. Labs: Laboratory Results - last 24 hr 08/22/22 08/22/22 08/22/22 14:00 14:00 14:00 WBC 13.4 H RBC 3.50 L Hgb 11.0 L Hct 33.6 L MCV 96.0 H MCH 31.4 MCHC 32.7 RDW Std Deviation 52.5 H RDW Coeff of Jimbo 15.3 H Plt Count 176 MPV 10.4 Immature Gran % (Auto) 0.600 Neut % (Auto) 94.8 H Lymph % (Auto) 1.8 L [place] % (Auto) 2.2 Eos % (Auto) 0.2 Baso % (Auto) 0.4 Absolute Neuts (auto) 12.7 H Absolute Lymphs (auto) 0.24 L Nucleated RBC % 0 Differential Comment COMMENT Sodium 143 Potassium 3.8 Chloride 107 Carbon Dioxide 27.0 Anion Gap 9 BUN 34 H Creatinine 1.47 H Estim Creat Clear Calc 49.37 Est GFR (MDRD) Af Amer 60 Est GFR (MDRD) Non-Af 49 L BUN/Creatinine Ratio 23.1 H Glucose 107 H Lactic Acid 2.3 H* Calcium 9.3 Troponin I High Sens 10 Urine Color Urine Clarity Urine pH Ur Specific [place] Urine Protein Urine Glucose (UA) Urine Ketones Urine Occult Blood Urine Nitrite Urine Bilirubin Urine Urobilinogen Ur Leukocyte Esterase Urine RBC Urine WBC Ur Squamous Epith Cells Urine Bacteria Urine Mucus 08/22/22 15:40 WBC RBC Hgb Hct MCV MCH MCHC RDW Std Deviation RDW Coeff of Jimbo Plt Count MPV Immature Gran % (Auto) Neut % (Auto) Lymph % (Auto) [place] % (Auto) Eos % (Auto) Baso % (Auto) Absolute Neuts (auto) Absolute Lymphs (auto) Nucleated RBC % Differential Comment Sodium Potassium Chloride Carbon Dioxide Anion Gap BUN Creatinine Estim Creat Clear Calc Est GFR (MDRD) Af Amer Est GFR (MDRD) Non-Af BUN/Creatinine Ratio Glucose Lactic Acid Calcium Troponin I High Sens Urine Color Yellow Urine Clarity Clear Urine pH 6.0 Ur Specific [place] 1.010 Urine Protein 30 H Urine Glucose (UA) Normal Urine Ketones Negative Urine Occult Blood 150 H Urine Nitrite Positive H Urine Bilirubin Negative Urine Urobilinogen 4 H Ur Leukocyte Esterase 500 H Urine RBC 0 SEEN Urine WBC 5-10 SEEN Ur Squamous Epith Cells 0-5 SEEN Urine Bacteria 2+ Urine Mucus 0 SEEN Radiography Diagnostic Testing: Clinical Impression(s) from Imaging Studies Chest X-Ray 08/22/22 14:08 IMPRESSION: Hyperinflation. Mild linear scarring at the right lung base. Electronically Signed: Lico Torrez MD at 15:00 EST , EKG Initial EKG: Comments: My independent interpretation of an EKG none for dyspnea and history of atrial fibrillation showed sinus rhythm with first-degree AV block. Overall rate is 98. No ventricular ectopy. There is very subtle ST depression in lead V3 and possibly V4. Some of this could be some subtle baseline variation. This may be a very minimal change from May 23, 2021. No ST elevation. [place] interval is long. QRS duration and QTc are normal. Discharge Plan Dx/Rx/DC Orders Clinical Impression: Acute UTI, Generalized weakness, Dehydration, Creatinine elevation Disposition Disposition: Acute Care [facility] Discharge Date/Time: 08/22/22 18:03
[2022-08-22] MEDS: Ipratropium/Albuterol Sulfate 3 ML AMPUL.NEB INHALATION ×2 (14:34→19:41)
[2022-08-22 14:37] LABS: Absolute Lymphocyte Count 0.24 X10^3/uL (0.83-4.51); Absolute Neutrophil Count 12.7 X10^3/uL (2.0-7.7); Basophil# 0.06 X10^3/uL; Basophil% 0.4 % (0-1); Eosinophil# 0.03 X10^3/uL; Eosinophils% 0.2 % (0-5); Hematocrit 33.6 % (40-54); Lymphocyte # 0.24 X10^3/ul (0.83-4.51); Lymphocyte % 1.8 % (19-41); Mean Corp Hgb Conc 32.7 g/dL (32-36); Mean Corpuscular Hgb 31.4 pg (27.0-32.0); Mean Platelet Vol. 10.4 fl (6.2-12.0); Monocyte% 2.2 % (0-10); NRBC Flagged by Analyzer 0 % (0-5); Neutrophil # 12.65 X10^3/uL (2.7-7.7); Neutrophil % 94.8 % (47-70); POSITIVE DIFFERENTIAL YES; Platelet Count 176 K/mm3 (150-450); RBC Distribution Width CV 15.3 % (11.6-14.6); RBC Distribution Width SD 52.5 fl (35.1-43.9); White Blood Count 13.4 K/mm3 (4.4-11.0)
[2022-08-22 14:44] LABS: Differential Indicated SCAN CRITERIA MET
[2022-08-22 14:58] LABS: Anion Gap 9 (5-15); BUN 34 mg/dL (7-18); BUN/Creat Ratio 23.1 RATIO (10-20); Calcium,Total 9.3 mg/dL (8.5-10.1); Chloride 107 mmol/L (98-107); Creatinine, Serum 1.47 mg/dL (0.70-1.30); EST Glomerular Filtration Rate 49 mL/min (>60); Est Glom Filt Rate - Afr Amer 60 mL/min (>60); Estimated Creatinine Clearance 49.37 ml/min; Glucose 107 mg/dL (74-106); Potassium 3.8 mmol/L (3.5-5.1); Sodium Level 143 mmol/L (136-145); Troponin-I HS 10 pg/mL (3.0-78.0)
[2022-08-22 15:20] LABS: Lactic Acid 2.3 mmol/L (0.4-1.9)
[2022-08-22] MEDS: 0.9% Normal Saline 1,000 ML 999 ML IV (15:46)
[2022-08-22 15:48] LABS: Mucous, Urine 0 SEEN /hpf (<or=2+); Red Blood Cells-Urine 0 SEEN /hpf (0-5)
[2022-08-22] MEDS: levoFLOXacin IV 750 MG/150 ML BAG 100 MG IV (15:50)
[2022-08-22 16:21] LABS: Color, Urine Yellow (Yellow); Glucose, Dipstick Normal (Normal); Ketone-Dipstick Negative (Negative); Leukocyte Esterase-Dipstick 500 /ul (Negative); Nitrite-Dipstick Positive (Negative); Occult Blood-Urine 150 /ul (Negative); Protein-Dipstick 30 mg/dl (Negative); Urine Bilirubin Dipstick Negative (Negative); Urine Clarity Clear (Clear); Urine Urobilinogen 4 mg/dl (Normal)
[2022-08-22 16:29] LABS: Bacteria 2+ /hpf (None Seen); Squamous Epithelial Cells - UA 0-5 SEEN /hpf (0-5); White Blood Cells 5-10 SEEN /hpf (0-5)
--- NOTE | 2022-08-22 17:12 | HP.PCM.HOS_ITS ---
[facility] - General General Date of Service: 08/22/22 Chief Complaint: hypoxia HPI Narrative DARIN CHUN, is a 77 M who presents with hypoxia from home. Patient is on o xygen chronically at 4 L/min and with being on oxygen, patient's pulse ox is noted to be in the 70s. Patient was brought to the emergency room. Patient has had few other episodes where drop down in the 70s but did not respond. In the emergency room, patient was not noted to be hypoxic. Patient had apparently noted some blood in urine and some urinary frequency and dysuria. Patient had a urinalysis that showed only 5-10 white blood cells but received levofloxacin for urinary tract infection. Additionally, patient did receive IV fluids. Daughter, was present at bedside, states that the patient is not drinking much fluid despite her insistence that he to drink. Patient has just been at his son's house, normally stays at his daughter's house, but apparently his close had been infested with bedbugs which have since been removed. [facility] Medical History (Updated 08/22/22 @ 17:[address] Mike Brown, ) AAA (abdominal aortic aneurysm) Atherosclerotic heart disease of false pass coronary artery without angina pectoris Atrial fibrillation Atrial tachycardia Bilateral carotid artery stenosis Carotid artery stenosis Chest pain COPD (chronic obstructive pulmonary disease) Coronary artery disease Emphysema lung Essential hypertension First degree AV block GERD (gastroesophageal reflux disease) High cholesterol Mixed hyperlipidemia Myocardial infarct Paroxysmal atrial fibrillation Presence of permanent cardiac pacemaker (~04/09/21) Presence of stent in coronary artery (~1996) Severe protein-calorie malnutrition Sick sinus syndrome Smoker Symptomatic bradycardia Home Medications albuterol sulfate 2.5 mg/3 mL (0.083 %) solution for nebulization 2.5 mg inhalation Q6H PRN Wheezing 02/17/21 [History Last Taken Unknown] aspirin 81 mg tablet 81 mg PO DAILY 02/17/21 [History Last Taken Unknown] folic acid 1 mg tablet 1 mg PO DAILY 02/17/21 [History Last Taken Unknown] ipratropium 0.5 mg-albuterol 3 mg (2.5 mg base)/3 mL nebulization soln 3 ml inhalation Q6H 02/17/21 [History Last Taken Unknown] albuterol sulfate 90 mcg/actuation aerosol inhaler See Rx Instructions .Route .COMPLEX #8.5 grams 08/22/21 [Rx Last Taken Unknown] nitroglycerin 0.4 mg sublingual tablet (Nitrostat) 0.4 mg sublingual Q5-15M PRN Chest Pain #23 tabs 10/24/21 [Rx Last Taken Unknown] cholecalciferol (vitamin D3) 50 mcg (2,000 unit) capsule 50 mcg PO DAILY 01/08/22 [History Last Taken Unknown] ferrous sulfate 325 mg (65 mg iron) tablet (Feosol) 325 mg PO DAILY 01/08/22 [History Last Taken Unknown] apixaban 5 mg tablet (Eliquis) 5 mg PO BID #60 tabs 02/11/22 [Rx Last Taken Unknown] atorvastatin 10 mg tablet 10 mg PO DAILY #90 tabs 02/14/22 [Rx Last Taken Unknown] lisinopril 10 mg tablet 10 mg PO DAILY #90 tabs 02/14/22 [Rx Last Taken Unknown] midodrine 5 mg tablet 5 mg PO DAILY #90 tabs 02/14/22 [Rx Last Taken Unknown] tiotropium bromide 2.5 mcg/actuation mist for inhalation (Spiriva Respimat) 2 puff inhalation DAILY #4 grams 03/21/22 [Rx Last Taken Unknown] fluticasone propionate 50 mcg/actuation nasal spray,suspension (Flonase Allergy Relief) 2 spray intranasal DAILY #16 grams 05/22/22 [Rx Last Taken Unknown] metoprolol tartrate 50 mg tablet 50 mg PO BID #180 tabs 07/04/22 [Rx Last Taken Unknown] budesonide-formoterol HFA 160 mcg-4.5 mcg/actuation aerosol inhaler (Symbicort) See Rx Instructions .Route .COMPLEX #10.2 grams 07/31/22 [Rx Last Taken Unknown] Allergy/AdvReac Type Severity Reaction Status Date / Time clopidogrel [From Plavix] Allergy Hives Verified 08/22/22 13:28 Penicillins Allergy Hives Verified 08/22/22 13:28 tamsulosin [From Flomax] Allergy Other Verified 08/22/22 13:28 Family History Other Breast cancer CVA (cerebral vascular accident) Cancer Heart disease Hypertension Myocardial infarction Parkinson disease Surgical History History of AAA (abdominal aortic aneurysm) repair (~01/31/16) History of bilateral cataract extraction History of carpal tunnel release History of coronary artery stent placement History of hernia repair Presence of coronary angioplasty implant and graft (~1996) Previous back surgery Social History Smoking Status: Current every day smoker tobacco type: cigarettes Tobacco: How many years used: 66 Electronic Cigarette Use: not used second hand exposure: No alcohol intake: former substance use type: does not use caffeine: Yes Type: coffee Number of servings: 2 ROS ROS Narrative According to daughter, the patient has been pretty independent and driving himself around. She has no concerns about his weakness nor requiring a usp facility. ROS Vital Signs Vital Signs Vital Signs: 08/22/22 13:26 08/22/22 13:24 08/22/22 14:24 Temperature 37.7 C H Temperature Source Temporal Pulse Rate 115 H 95 Respiratory Rate 26 H Respiratory Effort Short of Breath Respiratory Depth Shallow Respiratory Pattern Tachypnea Blood Pressure 184/103 H Blood Pressure Mean 130 Pulse Ox 82 95 Oxygen Delivery Method Nasal Cannula Nasal Cannula Nasal Cannula Oxygen Flow Rate (L/min) 3 4 08/22/22 14:34 08/22/22 15:45 08/22/22 15:46 Temperature 36.9 C Temperature Source Oral Pulse Rate 79 97 96 Respiratory Rate 20 H 22 H 18 Respiratory Effort Respiratory Depth Respiratory Pattern Normal Blood Pressure 121/60 H Blood Pressure Mean 80 Pulse Ox 94 95 Oxygen Delivery Method Nasal Cannula Nasal Cannula Oxygen Flow Rate (L/min) 3 3 08/22/22 16:53 Temperature Temperature Source Pulse Rate 99 Respiratory Rate 24 H Respiratory Effort Respiratory Depth Respiratory Pattern Blood Pressure 113/64 Blood Pressure Mean 80 Pulse Ox 96 Oxygen Delivery Method Nasal Cannula Oxygen Flow Rate (L/min) 3 Weight Weight: 81.647 kg Body Mass Index (BMI) 23.1 Physical Exam Const alert and no apparent distress Constitutional Narrative: Listless. Cooperative. No acute distress. HEENT normocephalic and hearing grossly normal bilaterally Resp normal respiratory effort, no retractions, no use of accessory muscles and clear to auscultation bilaterally Cardio regular rate, regular rhythm, S1 normal heart sound and S2 normal heart sound GI normal to inspection, nondistended, normoactive bowel sounds, soft to palpation, non-tender and non-distended Extremity normal to inspection and full ROM Skin Skin Narrative: Numerous small petechial bites on bilateral lower extremities below his knees as well as some on the upper extremities. Neuro Sensorium / Orientation: awake Psych Psych Narrative: Flat affect Results Lab / Micro Data Attestation: I reviewed the patient's lab results. Lab results narrative: Chest x-ray reviewed and showed hyperinflated airways with pacemaker leads in p lace. Result Diagrams: 08/22/22 14:00 08/22/22 14:00 Labs: Laboratory Results - last 24 hr 08/22/22 14:00: WBC 13.4 H, RBC 3.50 L, Hgb 11.0 L, Hct 33.6 L, MCV 96.0 H, MCH 31.4, MCHC 32.7, RDW Std Deviation 52.5 H, RDW Coeff of Jimbo 15.3 H, Plt Count 176, MPV 10.4, Immature Gran % (Auto) 0.600, Neut % (Auto) 94.8 H, Lymph % (Auto) 1.8 L, Dickenson % (Auto) 2.2, Eos % (Auto) 0.2, Baso % (Auto) 0.4, Absolute Neuts (auto) 12.7 H, Absolute Lymphs (auto) 0.24 L, Nucleated RBC % 0, Differential Comment COMMENT 08/22/22 14:00: Sodium 143, Potassium 3.8, Chloride 107, Carbon Dioxide 27.0, Anion Gap 9, BUN 34 H, Creatinine 1.47 H, Estim Creat Clear Calc 49.37, Est GFR (MDRD) Af Amer 60, Est GFR (MDRD) Non-Af 49 L, BUN/Creatinine Ratio 23.1 H, Glucose 107 H, Calcium 9.3, Troponin I High Sens 10 08/22/22 14:00: Lactic Acid 2.3 H* 08/22/22 15:40: Urine Color Yellow, Urine Clarity Clear, Urine pH 6.0, Ur Specific [place] 1.010, Urine Protein 30 H, Urine Glucose (UA) Normal, Urine Ketones Negative, Urine Occult Blood 150 H, Urine Nitrite Positive H, Urine Bilirubin Negative, Urine Urobilinogen 4 H, Ur Leukocyte Esterase 500 H, Urine RBC 0 SEEN, Urine WBC 5-10 SEEN, Ur Squamous Epith Cells 0-5 SEEN, Urine Bacteria 2+, Urine Mucus 0 SEEN Micro: Microbiology 08/22/22 14:00 Nasal Secretion SARS-CoV-2 & FLU Antigen (Rapid) - Final Radiology Impression Chest X-Ray 08/22/22 14:08 IMPRESSION: Hyperinflation. Mild linear scarring at the right lung base. Electronically Signed: Lico Torrez MD at 15:00 EST , Assessment & Plan Assessment/Plan (1) COPD exacerbation: PLAN: Patient had transient hypoxia at home but not currently seen there. No audible wheezing. Continue with bronchodilators. 5 days of prednisone (2) Debility: PLAN: Patient was pretty active with his ADLs up until yesterday but weaker today. PTOT evaluate and treat Daughter does not feel that he would require usp facility (3) Hypoxia: PLAN: Tranxene as above. No infiltrate appreciated on x-ray. Patient does have advanced COPD with an FEV1 of 30%. (4) Bedbug bite: PLAN: No signs symptoms of infection. According to the daughter, patient was staying with his son which is where he got the bedbugs. Clothing has been removed that was infested with the bedbugs. No sign of cellulitis at this time. (5) Severe protein-calorie malnutrition: PLAN: Add supplements with Ensure Consult nutrition PLAN: Plan VTE prophylaxis: Not indicated given observation status. Charges/Coding Visit Charges Inpatient E&M: 23227 Init Hosp L2
[2022-08-22 18:31] LABS: Reflex Lactate? Y
[2022-08-22] MEDS: 0.9% Normal Saline 1,000 ML 150 ML IV (18:42)
[2022-08-22 19:39] LABS: Lactic Acid 2.6 mmol/L (0.4-1.9)
[2022-08-22] MEDS: Midodrine HCl 5 MG Tablet PO (20:24)
[2022-08-22] MEDS: predniSONE 20 MG Tablet 40 MG PO (20:25)
[2022-08-22] MEDS: APIXABAN 5 MG TABLET PO (21:56)
[2022-08-22] MEDS: Atorvastatin Calcium 10 MG Tablet PO (21:56)
--- NOTE | 2022-08-22 23:08 | NURSING ---
Pt calls RN into room c/o shortness of breath. SpO2 93% on 2L O2. Pt anxious, sitting up in bed after using urinal recently. Jeovanny, CPS notified of pt's complaint as well as pt wheezing stating he will be up to give pt a PRN breathing treatment.
[2022-08-22] MEDS: Albuterol 2.5 MG/3 ML VIAL.NEB. INHALATION (23:12)
[2022-08-23] VITALS (9 sets, daily range): BP systolic 95–111; BP diastolic 50–62; PULSE 69–92; RESP 18–20; TEMP 36.4–36.9; O2SAT 88–98
[2022-08-23] MEDS: Ipratropium/Albuterol Sulfate 3 ML AMPUL.NEB INHALATION ×3 (01:15→13:13)
[2022-08-23 05:43] LABS: Absolute Lymphocyte Count 0.16 X10^3/uL (0.83-4.51); Absolute Neutrophil Count 13.4 X10^3/uL (2.0-7.7); Basophil# 0.03 X10^3/uL; Basophil% 0.2 % (0-1); Hematocrit 26.8 % (40-54); Hemoglobin 8.3 g/dL (13.0-16.5); Lymphocyte # 0.16 X10^3/ul (0.83-4.51); Lymphocyte % 1.1 % (19-41); Mean Corpuscular Hgb 30.4 pg (27.0-32.0); Mean Corpuscular Volume 98.2 fL (80-94); Mean Platelet Vol. 10.7 fl (6.2-12.0); Monocyte# 0.44 X10^3/uL; Monocyte% 3.1 % (0-10); NRBC Flagged by Analyzer 0 % (0-5); Neutrophil # 13.44 X10^3/uL (2.7-7.7); POSITIVE DIFFERENTIAL YES; Platelet Count 141 K/mm3 (150-450); RBC Distribution Width CV 15.6 % (11.6-14.6); Red Blood Count 2.73 M/mm3 (4.6-6.2); White Blood Count 14.2 K/mm3 (4.4-11.0)
[2022-08-23 05:50] LABS: Differential Indicated SCAN CRITERIA MET
[2022-08-23 06:12] LABS: Differential Comment SCANNED
[2022-08-23 06:18] LABS: Anion Gap 7 (5-15); BUN 28 mg/dL (7-18); BUN/Creat Ratio 21.1 RATIO (10-20); Calcium,Total 8.4 mg/dL (8.5-10.1); Chloride 110 mmol/L (98-107); Creatinine, Serum 1.33 mg/dL (0.70-1.30); EST Glomerular Filtration Rate 56 mL/min (>60); Est Glom Filt Rate - Afr Amer 67 mL/min (>60); Glucose 142 mg/dL (74-106); Potassium 4.1 mmol/L (3.5-5.1); Sodium Level 140 mmol/L (136-145)
--- NOTE | 2022-08-23 07:16 | PCM.PN.HOSP ---
Subjective Subjective Mr. Sheikh is a 7-year-old male who presented from home with hypoxia. He is evidently on 4 L/min [id number] at home and was noted to be hypoxic with sats in the 70s. He was brought to the emergency department where he was not found to be hypoxic. He did have some hematuria as well as urinary frequency and dysuria. He was started on Levaquin in the emergency department and was given IV fluids. His daughter was present at the time of admission and reported that she had been trying to get him to drink more however he had not increase her p.o. intake. He had been living with his son but normally lives with his daughter. Evidently his clothes were infested with bedbugs at the time of admission. He was admitted to the medical floor with hypoxia and COPD exacerbation as well as debility. And is currently being treated for acute exacerbation of COPD. Patient was evaluated the morning after admission. He states he feels much better and feels like he is probably back to baseline. He denies any breathing issues. He is currently on 2 L at rest and when tested for home O2 he only needed oxygen with exertion with 2 L being his requirement. As noted above he is on 4 L at baseline. He indicates his plan is to go home and live with his daughter at discharge. We will go ahead and discharge him home later today. Objective Data Objective Data Vital Signs: Vital Signs Temp Pulse Resp BP Pulse Ox O2 Del Method O2 Flow Rate 98.5 F 74 20 H 106/57 L 97 Nasal Cannula 2 08/23/22 06:06 08/23/22 06:06 08/23/22 06:06 08/23/22 06:06 08/23/22 06:06 08/23/22 06:06 08/23/22 06:06 Oxygen Flow Rate (L/min) [ 2 AMBULATING with Oxygen #1] Oxygen Flow Rate (L/min) [ 0 AMBULATING on Room Air] Oxygen Flow Rate (L/min) [At 0 REST on Room Air] Oxygen Flow Rate (L/min) 2 Oxygen Delivery Method Nasal Cannula Weight: 72.575 kg Body Mass Index (BMI) 20.5 Intake & Output: Intake and Output for Last 24 Hours 08/21/22 08/22/22 08/23/22 23:59 23:59 23:59 Intake Total 2707.5 / 2707.5 1242.5 / 1242.5 Output Total 400 / 400 475 / 475 Balance 2307.5 / 2307.5 767.5 / 767.5 Lab / Micro Data Result Diagrams: 08/23/22 04:40 08/23/22 04:40 Labs: Laboratory Results - last 24 hr 08/22/22 14:00: WBC 13.4 H, RBC 3.50 L, Hgb 11.0 L, Hct 33.6 L, MCV 96.0 H, MCH 31.4, MCHC 32.7, RDW Std Deviation 52.5 H, RDW Coeff of Jimbo 15.3 H, Plt Count 176, MPV 10.4, Immature Gran % (Auto) 0.600, Neut % (Auto) 94.8 H, Lymph % (Auto) 1.8 L, Hopkins % (Auto) 2.2, Eos % (Auto) 0.2, Baso % (Auto) 0.4, Absolute Neuts (auto) 12.7 H, Absolute Lymphs (auto) 0.24 L, Nucleated RBC % 0, Differential Comment COMMENT 08/22/22 14:00: Sodium 143, Potassium 3.8, Chloride 107, Carbon Dioxide 27.0, Anion Gap 9, BUN 34 H, Creatinine 1.47 H, Estim Creat Clear Calc 49.37, Est GFR (MDRD) Af Amer 60, Est GFR (MDRD) Non-Af 49 L, BUN/Creatinine Ratio 23.1 H, Glucose 107 H, Calcium 9.3, Troponin I High Sens 10 08/22/22 14:00: Lactic Acid 2.3 H* 08/22/22 15:40: Urine Color Yellow, Urine Clarity Clear, Urine pH 6.0, Ur Specific [place] 1.010, Urine Protein 30 H, Urine Glucose (UA) Normal, Urine Ketones Negative, Urine Occult Blood 150 H, Urine Nitrite Positive H, Urine Bilirubin Negative, Urine Urobilinogen 4 H, Ur Leukocyte Esterase 500 H, Urine RBC 0 SEEN, Urine WBC 5-10 SEEN, Ur Squamous Epith Cells 0-5 SEEN, Urine Bacteria 2+, Urine Mucus 0 SEEN 08/22/22 18:45: Lactic Acid 2.6 H* 08/23/22 04:40: WBC 14.2 H, RBC 2.73 L, Hgb 8.3 L, Hct 26.8 L, MCV 98.2 H, MCH 30.4, MCHC 31.0 L D, RDW Std Deviation 56.0 H, RDW Coeff of Jimbo 15.6 H, Plt Count 141 L, MPV 10.7, Immature Gran % (Auto) 0.600, Neut % (Auto) 95.0 H, Lymph % (Auto) 1.1 L, [place] % (Auto) 3.1, Eos % (Auto) 0.0, Baso % (Auto) 0.2, Absolute Neuts (auto) 13.4 H, Absolute Lymphs (auto) 0.16 L, Nucleated RBC % 0, Differential Comment SCANNED 08/23/22 04:40: Sodium 140, Potassium 4.1, Chloride 110 H, Carbon Dioxide 23.0, Anion Gap 7, BUN 28 H, Creatinine 1.33 H, Estim Creat Clear Calc 48.50, Est GFR (MDRD) Af Amer 67, Est GFR (MDRD) Non-Af 56 L, BUN/Creatinine Ratio 21.1 H, Glucose 142 H, Calcium 8.4 L Micro: Microbiology 08/22/22 14:00 Nasal Secretion SARS-CoV-2 & FLU Antigen (Rapid) - Final Radiography Diagnostic Testing: Radiology Impression Chest X-Ray 08/22/22 14:08 IMPRESSION: Hyperinflation. Mild linear scarring at the right lung base. Electronically Signed: Lico Torrez MD at 15:00 EST Reading Location ID and State: [address] [place] [address] , Service support , Physical Exam Const alert, oriented x3, no apparent distress and average body habitus Constitutional Narrative: Thin, older, white male, sitting up in a chair at the bedside, appears comfortable nontoxic, no issues with respiratory status HEENT head/scalp atraumatic and moist oral mucous membranes HEENT Narrative: Edentulous, Mallampati 1, no thrush Head and Scalp: normocephalic Resp normal respiratory effort, no retractions, no use of accessory muscles and No clear to auscultation bilaterally Resp Narrative: Diffusely diminished with few wheezes scattered but otherwise clear and no signs of respiratory distress/extremis, no conversational dyspnea Auscultation: wheezes; Negative for crackles or rhonchi Cardio regular rate, regular rhythm, S1 normal heart sound, S2 normal heart sound, no murmurs, no rub, no gallops and no clicks GI normal to inspection, nondistended, normoactive bowel sounds, soft to palpation and non-tender Extremity no clubbing, cyanosis or edema Extremity Narrative: Decreased lean muscle mass Neuro oriented x3, moves all extremities and no focal motor deficits Neuro Narrative: Mild Weakness proximal greater than distal Speech: speech normal Psych affect normal Psych Narrative: Very pleasant, appropriately interactive Assessment & Plan Assessment/Plan (1) Acute UTI: (2) Generalized weakness: (3) Hypoxia: (4) Bedbug bite: (5) COPD exacerbation: PLAN: Plan Hypoxia secondary to acute exacerbation of COPD -Patient had transient hypoxia at home but has been stable here on his baseline oxygen of 4 L -Has actually been weaned to 2 L with sats of 97% at this time -Continue prednisone taper -COVID and flu were negative -Continue scheduled DuoNebs and as needed albuterol -Chest x-ray reviewed and shows hyperinflation with flattened diaphragms but no acute pulmonary process -Ambulatory pulse ox performed and patient only is requiring oxygen with exertion at 2 L/min Urinary tract infection -Patient with dysuria and frequency on presentation -UA with limited white cells but did have 5-10 per-power field present as well as nitrites, leuk esterase, and bacteria -We will go ahead and treat with ceftriaxone -Blood and urine cultures are pending -We will plan on discharge for 6 more days of Keflex Debility -Patient had evidently been fairly active and stable with regards to his IADLs and ADLs up until the day prior to presentation -Weaker on the day of presentation -PT/OT evaluated the patient felt he would be stable for discharge home with home health -Upon admission daughter did not feel that he would required group home facility at discharge but will await therapy recommendations Microscopic hematuria -Would recommend outpatient follow-up after infection treatment has been completed as patient does have tobacco abuse history and would be at increased risk for bladder CA -We will recommend follow-up with Dr. Melendez after discharge -No gross hematuria Bedbug bite -Clothes have been removed that were infested at the time of admission -No sign of cellulitis -Continue to monitor CKD stage III A -Baseline serum creatinine appears to be between 1.3 and 1.4 -Current serum creatinine is 1.33 -Avoid nephrotoxins as able -Continue to monitor Severe malnutrition -Dietitian consult -Continue supplements with Ensure COPD Gold classification stage IV -Follows with pulmonary as an outpatient -Last FEV1 was 30% of predicted -Still is smoking -Has follow-up with Dr. Madison in November -Hold home inhalers and restart at discharge CAD/HPL/HTN Continue home aspirin -Continue home -Home lisinopril is on hold secondary to borderline blood pressures -Continue home metoprolol PAF/SSS -History of sick sinus syndrome with symptomatic bradycardia status post pacemaker -Continue home metoprolol with hold parameters -Continue home apixaban AAA -Status postrepair 2015 Vitamin D deficiency -Continue home vitamin D supplementation Tobacco abuse -Recommend cessation -Nicotine replacement offered DVT prophylaxis -Patient is fully anticoagulated on apixaban
[2022-08-23] MEDS: Cholecalciferol (VIT D3) 25 MCG TABLET (1,000 UNITS) 50 MCG PO (08:45)
[2022-08-23] MEDS: Midodrine HCl 5 MG Tablet PO (08:45)
[2022-08-23] MEDS: Folic Acid 1 MG Tablet PO (08:45)
[2022-08-23] MEDS: predniSONE 20 MG Tablet 40 MG PO (08:46)
[2022-08-23] MEDS: Aspirin 81 MG TAB.CHEW PO (08:46)
[2022-08-23] MEDS: Ensure Plus High Protein 120 ML LIQUID PO ×2 (08:48→11:19)
[2022-08-23] MEDS: Ceftriaxone 1 GM/50 ML BAG IV (11:14)
[2022-08-23] MEDS: Ferrous Sulfate 325 MG Tablet PO (11:16)
[2022-08-23] MEDS: Fluticasone 0.05% 1 SPRAY NASAL.SRY 2 SPRAY NASAL (11:16)
[2022-08-23] MEDS: APIXABAN 5 MG TABLET PO (11:16)
[2022-08-23] MEDS: 0.9% Saline Lock 10 ML Syringe IV ×2 (11:17→12:51)
--- NOTE | 2022-08-23 11:30 | CASEMGMT ---
STANISLAW HAQ DC Planning Assessment: Face to Face with patient for initial transition planning/care coordination assessment. Pt alert, oriented x3, and sitting up in chair eating lunch. STANISLAW HAQ introduced self and role at [facility], pt voiced understanding.? Care providers, pharmacy,?and demographics verified. ? Admitting Dx: debility, UTI PCP: Dr. Persaud Specialists:[facility] (pulm) Insurance: [facility] Prescription Benefit:?Yes Living Will/HPOA: Yes/Yes: Granduriel Morfin (1st), BISHOP Nicole (2nd) Living Arrangements: Pt had been living with BISHOP but recently moved in with his son. Pt presented from son's home with bedbugs. Pt states he is returning home with his daughter Corey in [place]. PT states he is independent with all ADLS including self care and household tasks. Transportation: Pt states he has been driving himself and denies any concerns with transportation. DME: [facility] at 3l/min, has a walker but does not use. SNF: none HHC: Had previously from [facility] Plan: Pt plans to return to his daughter's home at discharge. Discussed recommendation for additional therapy at discharge to assist with pt getting stronger during his recovery. Pt states he is not sure he needs it but states he is willing to try it. Asked that this RN SEVERINO discuss with [facility] Providers with Corey. This RN CM called Corey who states she would be agreeable to pt receiving home health care in her home. Reviewed the list of home health care providers from [facility] that are in-network with pt's insurance, consistent with pt's medical needs and including quality and resource use data. Corey states pt had [facility] in the past and would chose [facility] as their first choice. Referral placed in [facility]. Will follow-up on Thursday for acceptance and SOC. STANISLAW HAQ explained [facility]Z for to patient, patient voiced understanding. Patient signed [facility] Form and filed in chart.? Patient provided with copy of signed RAMIREZ form.? Patient had no further questions or concerns.?? ? Jovanni Allen RN CM
--- NOTE | 2022-08-23 13:45 | DS.PCM_ITS ---
Providers Date of Admission: 08/22/22 Date of Discharge: 08/23/22 Primary Care Physician: Dr. Brittany Persaud MD Reason For Visit: DEBILITY Diagnosis Discharge Diagnosis (1) Acute UTI: Status: Acute Code(s): N39.0 - Urinary tract infection, site not specified (2) Generalized weakness: Status: Acute Code(s): R53.1 - Weakness (3) Hypoxia: Status: Chronic Code(s): R09.02 - Hypoxemia (4) Bedbug bite: Status: Acute Code(s): W57.XXXA - Bitten or stung by nonvenomous insect and other nonvenomous arthropods, initial encounter (5) COPD exacerbation: Status: Chronic Code(s): J44.1 - Chronic obstructive pulmonary disease with (acute) exacerbation Medications at Discharge Home Medications albuterol sulfate 2.5 mg/3 mL (0.083 %) solution for nebulization 2.5 mg inhalation Q6H PRN Wheezing 02/17/21 aspirin 81 mg tablet 81 mg PO DAILY 02/17/21 folic acid 1 mg tablet 1 mg PO DAILY 02/17/21 ipratropium 0.5 mg-albuterol 3 mg (2.5 mg base)/3 mL nebulization soln 3 ml inhalation Q6H 02/17/21 albuterol sulfate 90 mcg/actuation aerosol inhaler See Rx Instructions .Route .COMPLEX #8.5 grams 08/22/21 nitroglycerin 0.4 mg sublingual tablet (Nitrostat) 0.4 mg sublingual Q5-15M PRN Chest Pain #23 tabs 10/24/21 cholecalciferol (vitamin D3) 50 mcg (2,000 unit) capsule 50 mcg PO DAILY 01/08/22 ferrous sulfate 325 mg (65 mg iron) tablet (Feosol) 325 mg PO DAILY 01/08/22 apixaban 5 mg tablet (Eliquis) 5 mg PO BID #60 tabs 02/11/22 atorvastatin 10 mg tablet 10 mg PO DAILY #90 tabs 02/14/22 lisinopril 10 mg tablet 10 mg PO DAILY #90 tabs 02/14/22 midodrine 5 mg tablet 5 mg PO DAILY #90 tabs 02/14/22 tiotropium bromide 2.5 mcg/actuation mist for inhalation (Spiriva Respimat) 2 puff inhalation DAILY #4 grams 03/21/22 fluticasone propionate 50 mcg/actuation nasal spray,suspension (Flonase Allergy Relief) 2 spray intranasal DAILY #16 grams 05/22/22 metoprolol tartrate 50 mg tablet 50 mg PO BID #180 tabs 07/04/22 budesonide-formoterol HFA 160 mcg-4.5 mcg/actuation aerosol inhaler (Symbicort) See Rx Instructions .Route .COMPLEX #10.2 grams 07/31/22 cephalexin 500 mg capsule 500 mg PO BID #12 caps 08/23/22 prednisone 10 mg tablet 10 mg PO DAILY #40 tabs 08/23/22 Hospital Course Operations None Procedures None Summary of Care Provided Minutes Spent on Discharge: 28 Hospital Course: Mr. Breaux is a 77-year-old white male who presented to the emergency department at [facility] on 08/22/2021 with hypoxia. The patient is evidently on 4 L [id number] at home with supplemental oxygen and was noted to be hypoxic with oxygen saturations in the 70s at home. He was brought to the emergency department where he was not found to be hypoxic at the time of admission. He did have some hematuria as well as urinary frequency and dysuria and was started on Levaquin. He was also given IV fluids as he appeared somewhat dehydrated. His daughter was present at the time of admission and reported she had been trying to get him to drink more however he had not increased his p.o. intake with her recommendations. He had been living with his son but normally lives with his daughter. Evidently his close were infested with bedbugs on admission. He was admitted to the medical floor with hypoxia and acute exacerbation of COPD as well as debility. He was placed on steroids and nebulizers. I evaluated the patient on the morning of 08/23/2022. Patient indicated he feels much better than the time of admission and felt that he was probably back to his baseline. He was actually on 2 L of oxygen at rest and an ambulatory pulse ox was performed and he needed no oxygen at rest and 2 L with exertion. His baseline is 4 L continuously. We did give him a dose of ceftriaxone as he is UA suggested infection and a urine culture was pending at the time of discharge. I will go ahead and discharge him with 6 more days of Keflex to complete treatment for this and we will review the cultures for sensitivities after discharge. He showed some signs of debility on presentation was evaluated by physical and Occupational Therapy. They recommended ongoing therapy with home health at discharge. This was arranged prior to discharge. He was found to have microscopic hematuria. With his history of tobacco abuse he would be high risk for bladder CA and I have referred him to see urology. He is to call on Thursday to make an appointment. He is anticoagulated at baseline with apixaban so this may be the etiology but with his history of tobacco abuse he at least needs reevaluated. He has appointment with Dr. Madison in November and I encouraged him to keep this appointment. I also recommended he follow-up with his primary care physician within the next 2 weeks. He was discharged home in stable condition on 08/23/2021. 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 CAD Hyperlipidemia Hypertension PAF Sick sinus syndrome History of AAA status post repair in 2016 Vitamin D deficiency Tobacco abuse Physical Exam Const alert, oriented x3, no apparent distress and average body habitus Constitutional Narrative: Thin, older, white male, sitting up in a chair at the bedside, appears comfortable nontoxic, no issues with respiratory status General Appearance: cooperative, comfortable, well kempt and well developed Orientation / Consciousness: awake, oriented to person, oriented to place and oriented to time Exam Limitations: no limitations Nutritional Appearance: thin HEENT normocephalic, head/scalp atraumatic, hearing grossly normal bilaterally and moist oral mucous membranes HEENT Narrative: Edentulous, Mallampati 1-2 Resp normal respiratory effort, no retractions, no use of accessory muscles and No clear to auscultation bilaterally Resp Narrative: Diffusely diminished with few wheezes scattered but otherwise clear and no signs of respiratory distress/extremis, no conversational dyspnea Auscultation: wheezes; Negative for crackles or rhonchi Cardio regular rate, regular rhythm, S1 normal heart sound, S2 normal heart sound, no murmurs, no rub, no gallops and no clicks GI normal to inspection, nondistended, normoactive bowel sounds, soft to palpation, non-tender and non-distended Extremity normal to inspection, full ROM and no clubbing, cyanosis or edema Extremity Narrative: Decreased lean muscle mass Skin Skin Narrative: Numerous small petechial bites on bilateral lower extremities below his knees as well as some on the upper extremities. Neuro oriented x3, moves all extremities and no focal motor deficits Neuro Narrative: Mild, Weakness proximal greater than distal Speech: speech normal Psych affect normal Psych Narrative: Very pleasant, appropriately interactive Weight / BMI Weight Weight: 72.575 kg Body Mass Index (BMI) 20.5 ABG / Lab / Microbiology Data Result Diagrams: 08/23/22 04:40 08/23/22 04:40 Laboratory: Laboratory Results - last 24 hr 08/22/22 14:00: WBC 13.4 H, RBC 3.50 L, Hgb 11.0 L, Hct 33.6 L, MCV 96.0 H, MCH 31.4, MCHC 32.7, RDW Std Deviation 52.5 H, RDW Coeff of Jimbo 15.3 H, Plt Count 176, MPV 10.4, Immature Gran % (Auto) 0.600, Neut % (Auto) 94.8 H, Lymph % (Auto) 1.[address] L, [place] % (Auto) 2.2, Eos % (Auto) 0.2, Baso % (Auto) 0.4, Absolute Neuts (auto) 12.7 H, Absolute Lymphs (auto) 0.24 L, Nucleated RBC % 0, Diff erential Comment COMMENT 08/22/22 14:00: Sodium 143, Potassium 3.8, Chloride 107, Carbon Dioxide 27.0, Anion Gap 9, BUN 34 H, Creatinine 1.47 H, Estim Creat Clear Calc 49.37, Est GFR (MDRD) Af Amer 60, Est GFR (MDRD) Non-Af 49 L, BUN/Creatinine Ratio 23.1 H, Glucose 107 H, Calcium 9.3, Troponin I High Sens 10 08/22/22 14:00: Lactic Acid 2.3 H* 08/22/22 15:40: Urine Color Yellow, Urine Clarity Clear, Urine pH 6.0, Ur Specific [place] 1.010, Urine Protein 30 H, Urine Glucose (UA) Normal, Urine Ketones Negative, Urine Occult Blood 150 H, Urine Nitrite Positive H, Urine Bilirubin Negative, Urine Urobilinogen 4 H, Ur Leukocyte Esterase 500 H, Urine RBC 0 SEEN, Urine WBC 5-10 SEEN, Ur Squamous Epith Cells 0-5 SEEN, Urine Bacteria 2+, Urine Mucus 0 SEEN 08/22/22 18:45: Lactic Acid 2.6 H* 08/23/22 04:40: WBC 14.2 H, RBC 2.73 L, Hgb 8.3 L, Hct 26.8 L, MCV 98.2 H, MCH 30.4, MCHC 31.0 L D, RDW Std Deviation 56.0 H, RDW Coeff of Jimbo 15.6 H, Plt Count 141 L, MPV 10.7, Immature Gran % (Auto) 0.600, Neut % (Auto) 95.0 H, Lymph % (Auto) 1.[address] L, [place] % (Auto) 3.1, Eos % (Auto) 0.0, Baso % (Auto) 0.2, Absolute Neuts (auto) 13.4 H, Absolute Lymphs (auto) 0.16 L, Nucleated RBC % 0, Differential Comment SCANNED 08/23/22 04:40: Sodium 140, Potassium 4.1, Chloride 110 H, Carbon Dioxide 23.0, Anion Gap 7, BUN 28 H, Creatinine 1.33 H, Estim Creat Clear Calc 48.50, Est GFR (MDRD) Af Amer 67, Est GFR (MDRD) Non-Af 56 L, BUN/Creatinine Ratio 21.1 H, Glucose 142 H, Calcium 8.4 L Microbiology: Microbiology 08/22/22 15:40 Urine, Clean Catch Urine Culture - Final Mixed Gram Pos & Gram Neg Org 08/22/22 14:00 Nasal Secretion SARS-CoV-2 & FLU Antigen (Rapid) - Final Radiography Diagnostic Testing: Radiology Impression Chest X-Ray 08/22/22 14:08 IMPRESSION: Hyperinflation. Mild linear scarring at the right lung base. Electronically Signed: Lico Torrez MD at 15:00 EST , D/C Instructions Discharge Diet: Low fat / Low cholesterol Meaningful Use Info Meaningful Use Diagnoses (Choose all that apply): None applicable Discharge Plan Admission Admit Date/Time: 08/22/22 17:06 Primary Reason for Your Visit: Hypoxia Attending Provider: Skylar Smith Primary Care Provider: Brittany Persaud Consulting Providers: Mike Brown Discharge Orders/Prescriptions Prescriptions: New prednisone 10 mg tablet 10 mg PO DAILY Qty: 40 0RF Rx Instructions: 4 tablets x 4 days, 3 tablets x 4 days, 2 tablets x 4 days, 1 tablet x 4 days cephalexin 500 mg capsule 500 mg PO BID Qty: 12 0RF Continued atorvastatin 10 mg tablet 10 mg PO DAILY Qty: 90 3RF lisinopril 10 mg tablet 10 mg PO DAILY Qty: 90 3RF midodrine 5 mg tablet 5 mg PO DAILY Qty: 90 3RF ferrous sulfate [Feosol] 325 mg (65 mg iron) tablet 325 mg PO DAILY cholecalciferol (vitamin D3) 50 mcg (2,000 unit) capsule 50 mcg PO DAILY fluticasone propionate [Flonase Allergy Relief] 50 mcg/actuation spray,suspension 2 spray intranasal DAILY Qty: 16 3RF Rx Instructions: administer into each nostril ipratropium-albuterol 0.5 mg-3 mg(2.5 mg base)/3 mL Solution For Nebulization 3 ml INHALATION Q6H albuterol sulfate 2.5 mg /3 mL (0.083 %) Solution For Nebulization 2.5 mg INHALATION Q6H PRN (Reason: Wheezing) folic acid 1 mg Tablet 1 mg PO DAILY aspirin 81 mg Tablet 81 mg PO DAILY albuterol sulfate 90 mcg/actuation HFA aerosol inhaler See Rx Instructions .ROUTE .COMPLEX Qty: 8.5 5RF Dose Instruction: inhale 2 puffs by mouth and INTO THE LUNGS every 6 hours if needed for shortness of breath or wheezing Rx Instructions: inhale 2 puffs by mouth and INTO THE LUNGS every 6 hours if needed for shortness of breath or wheezing nitroglycerin [Nitrostat] 0.4 mg tablet, sublingual 0.4 mg SUBLINGUAL Q5-15M PRN (Reason: Chest Pain) Qty: 23 2RF Eliquis 5 mg tablet 5 mg PO BID Qty: 60 11RF Hold Instructions: Order Changed Spiriva Respimat 2.5 mcg/actuation mist 2 puff INHALATION DAILY Qty: 4 3RF metoprolol tartrate 50 mg tablet 50 mg PO BID Qty: 180 4RF budesonide-formoterol [Symbicort] 160-4.5 mcg/actuation HFA aerosol inhaler See Rx Instructions .ROUTE .COMPLEX Qty: 10.2 5RF Dose Instruction: inhale 2 puffs by mouth every 12 hours Rx Instructions: inhale 2 puffs by mouth every 12 hours Referrals / Follow Up: Chencho Madison MD [Med Staff - Active Staff] - See Referral Note (as scheduled) Isael Melendez MD [Med Staff - Active Staff] - (Call thursday for an appt to be seen for microscopic hematuria (small amt of blood in the urine)) Brittany Persaud MD [Primary Care Provider] - Within 2 Weeks Disposition Disposition (needs filled in before D/C Order can be placed): Home Health Service Charges/Coding Visit Charges Inpatient E&M: 96183 Disch Hosp
--- NOTE | 2022-08-23 19:53 | CASEMGMT ---
Social Work Note LACEY met with patient's RN Albina and was informed patient and patient's family were no longer interested in HHC and asked to cancel the referral to [facility]. LACEY to follow up. LACEY contacted RN SEVERINO Mcmillan to inquire about referral for HHC via [facility]. LACEY informed the referral wasn't sent yet; [facility] will no longer be following up about HHC referral. Patient is already discharged home. Rosalind Mccray MSW, MALACHI
== END 2022-08-23 17:25 | disposition home health service (06) ==
LOC: ED 14:19 → MS3 17:22
PROVIDERS: Emergency Provider Emergency Medicine; PCP Internal Medicine; Visit Provider Internal Medicine
DX: J44.1 Chronic obstructive pulmonary disease with (acute) exacerbation (principal); E43 Unspecified severe protein-calorie malnutrition; I48.0 Paroxysmal atrial fibrillation; N18.31 Chronic kidney disease, stage 3a; N39.0 Urinary tract infection, site not specified; I12.9 Hypertensive chronic kidney disease with stage 1 through stage 4 chronic kidney disease, or unspecified chronic kidney disease; Z95.5 Presence of coronary angioplasty implant and graft; Z79.82 Long term (current) use of aspirin; D64.9 Anemia, unspecified; E55.9 Vitamin D deficiency, unspecified; E86.0 Dehydration; Z79.01 Long term (current) use of anticoagulants; R31.29 Other microscopic hematuria; E78.00 Pure hypercholesterolemia, unspecified; I25.10 Atherosclerotic heart disease of native coronary artery without angina pectoris; F17.210 Nicotine dependence, cigarettes, uncomplicated; Z79.899 Other long term (current) drug therapy; Z99.81 Dependence on supplemental oxygen; Z68.23 Body mass index [BMI] 23.0-23.9, adult; T14.8XXA Other injury of unspecified body region, initial encounter; W57.XXXA Bitten or stung by nonvenomous insect and other nonvenomous arthropods, initial encounter; Y92.019 Unspecified place in single-family (private) house as the place of occurrence of the external cause
CPT/HCPCS: 36415; 71045; 80048; 81001; 83605; 84484; 85025; 87040; 87086; 87088; 87428; 93005; 94640; 96361; 96365; 96366; 97162; 97165; 97802; 99221; 99285; J7030; J7040; P9612; A4216; G0378

== ENCOUNTER → 2023-01-01 | Outpatient (CLI) | payer MEDICARE, SELFPAY | END | disposition home or self-care (01) | LOC: LABSPEC 11:07 | PROVIDERS: PCP Internal Medicine; Referring Provider Internal Medicine Critical Care Medicine; Visit Provider Internal Medicine Critical Care Medicine | DX: G47.33 Obstructive sleep apnea (adult) (pediatric) (principal); J44.9 Chronic obstructive pulmonary disease, unspecified; J96.11 Chronic respiratory failure with hypoxia; Z99.81 Dependence on supplemental oxygen | CPT/HCPCS: 87070; 87077; 87186; 87205 ==

== ENCOUNTER → 2023-01-16 | Outpatient (CLI) | payer MEDICARE, SELFPAY ==
--- NOTE | 2023-01-16 18:04 | CT_ITS ---
STUDY: LOW DOSE CT LUNG CANCER SCREENING REASON FOR EXAM: Male, 78 years old. current smoker RADIATION DOSAGE (If Supplied By Facility): CTDIvol = ( 1.59 ) mGy, DLP = ( 65.54 ) mGycm TECHNIQUE: No contrast was administered. Low dose technique was utilized (average mAS-38 and kVp 120). 1.25 mm axial source images with a slice interval of 1.25-mm were reconstructed in lung windows. 2.5 mm axial source images with a slice interval of 2.5-mm were reconstructed in lung windows. 5.0 mm axial source images with a slice interval of 5.0-mm were reconstructed in soft tissue windows. COMPARISON: 02/18/2021 Left subclavian pacemaker. Emphysema: Mild emphysema. No change in the 4 mm noncalcified nodule in the right upper lobe of the lungs on image 63 consistent with a noncalcified granuloma. 2 new adjacent noncalcified nodules in the superior segment of the right lower lobe lungs measuring 6 mm in diameter each on image 163 and follow-up CT is recommended in 3 months document stability or resolution. No change in the thick scar in the posterior right middle lobe. Right lower lobe cylindrical bronchiectasis. Some left lower lobe linear scarring. Endobronchial lesion: Aorta: No aortic aneurysm. CORONARY ARTERIES: Coronary artery calcification is seen. Heart: No cardiomegaly. Pulmonary artery: Normal Mediastinal nodes: Normal Other chest and abdominal findings: Mild S-shaped scoliosis thoracic spine with degenerative disc disease. CT/Low Dose CT Lung Screening IMPRESSION: Lung-RADS category 4A - Screening at 3 months with LDCT or evaluation with PET/CT may be used. IMPORTANT NOTES FOR USE: ACR Lung-RADS Version 1.1 Assessment Categories Release Date: 2018 Category: Coded 0-4 bases on nodule(s) with highest degree of suspicion. Negative screen is defined as categories 1 and 2; a positive screen is defined as categories 3 and 4. Category 3 and 4A nodules that are unchanged on interval CT should be coded as category 2, and individuals returned to screening in 12 months. Category 4X: Category 3 or 4 nodules with additional imaging findings that increase the suspicion of lung cancer, such as spiculation, GGN that doubles in size in 1 year, enlarged lymph notes, etc. Category Modifiers: S (significant finding unrelated to lung cancer) Electronically Signed: Charanjit Rios MD at 23:58 EDT ,
== END | disposition home or self-care (01) ==
LOC: CT 17:43
PROVIDERS: PCP Internal Medicine; Referring Provider Nurse Practitioner Acute Care; Visit Provider Nurse Practitioner Acute Care
DX: Z12.2 Encounter for screening for malignant neoplasm of respiratory organs (principal); F17.210 Nicotine dependence, cigarettes, uncomplicated
CPT/HCPCS: 71271

== ENCOUNTER → 2023-01-22 | Outpatient (CLI) | payer MEDICARE, SELFPAY ==
--- NOTE | 2023-01-22 11:20 | PET_ITS ---
This 78-year-old patient of Drs. Brittany Persaud and Chencho Madison had a 6-minute walk test on room air by the pulmonary function lab. Indication: Determine need for supplemental oxygen with exertion. Date of study: January 22, 2023 at 1345 hrs. The patient completed the test, covered 495 feet, did not use an assistive device, took 3 rest breaks for dyspnea. Oxygen saturation was 97% at baseline, minimum saturation was 90% at 3 minutes exercise. Heart rate ranged from 60 bpm at baseline, maximum 70 at 1 minute exercise. His dyspnea scale maximum was 4 on the Arabella scale consistent with mild to moderate dyspnea. His dyspnea score was between 6 and 13 on the Arabella exertion scale with a range of 6-20. (Mild to moderate He was returned to his usual oxygen therapy at the end of the study, pending physician review and advice. Impression: 1. Moderately decreased exercise tolerance due to dyspnea. Clinical and radiographic correlation is recommended. 2. No indication for supplemental oxygen with exertion on room air. Luis Cheung MD [facility] Pulmonary Medicine [facility] January 23, 2023 11:28 AM 01/23/23 1128 <Electronically signed by Luis Cheung MD> Date Luis Cheung MD
[2023-01-22 13:45] VITALS: PULSE 60; PULSE 63; PULSE 65; PULSE 68; PULSE 70; PULSE 96; O2SAT 90; O2SAT 93; O2SAT 94; O2SAT 95; O2SAT 96; O2SAT 97; O2SAT 98
--- NOTE | 2023-01-22 13:51 | CPS ---
Pt was removed from his O2 and placed on room air upon arrival. Walk was started on room air and pt was able to remain on room air for entire walk. Pt did state that he normally doesn't drop for his saturation during his walks. Pt states his breathing becomes harder for him but his oxygen is always ok. Pt did stop for breaks at minutes 2,3 and 4 due to his increased work of breathing. Pt was placed back on his 3 lpm for recocery post the 6 minutes.
--- NOTE | 2023-01-23 11:20 | PFT_ITS ---
This 78-year-old patient of Drs. Brittany Persaud and Chencho Madison had a 6-minute walk test on room air by the pulmonary function lab. Indication: Determine need for supplemental oxygen with exertion. Date of study: January 22, 2023 at 1345 hrs. The patient completed the test, covered 495 feet, did not use an assistive device, took 3 rest breaks for dyspnea. Oxygen saturation was 97% at baseline, minimum saturation was 90% at 3 minutes exercise. Heart rate ranged from 60 bpm at baseline, maximum 70 at 1 minute exercise. His dyspnea scale maximum was 4 on the Arabella scale consistent with mild to moderate dyspnea. His dyspnea score was between 6 and 13 on the [place]ella exertion scale with a range of 6-20. (Mild to moderate He was returned to his usual oxygen therapy at the end of the study, pending physician review and advice. Impression: 1. Moderately decreased exercise tolerance due to dyspnea. Clinical and radiographic correlation is recommended. 2. No indication for supplemental oxygen with exertion on room air. Luis Cheung MD [facility] Pulmonary Medicine [facility] January 23, 2023 11:28 AM
== END | disposition home or self-care (01) ==
LOC: PSN 13:20
PROVIDERS: PCP Internal Medicine; Referring Provider Internal Medicine Critical Care Medicine; Visit Provider Internal Medicine Critical Care Medicine
DX: G47.33 Obstructive sleep apnea (adult) (pediatric) (principal); J44.9 Chronic obstructive pulmonary disease, unspecified; J96.11 Chronic respiratory failure with hypoxia; Z99.81 Dependence on supplemental oxygen
CPT/HCPCS: 94618

== ENCOUNTER → 2023-03-27 | Outpatient (CLI) | payer MEDICARE, SELFPAY ==
[2023-03-27 12:10] LABS: Absolute Lymphocyte Count 1.23 X10^3/uL (0.83-4.51); Absolute Neutrophil Count 4.2 X10^3/uL (2.0-7.7); Basophil% 1.6 % (0-1); Eosinophil# 0.23 X10^3/uL; Eosinophils% 3.7 % (0-5); Lymphocyte # 1.23 X10^3/ul (0.83-4.51); Lymphocyte % 19.6 % (19-41); Mean Corp Hgb Conc 31.6 g/dL (32-36); Mean Corpuscular Hgb 30.1 pg (27.0-32.0); Mean Corpuscular Volume 95.2 fL (80-94); Mean Platelet Vol. 10.6 fl (6.2-12.0); Monocyte# 0.47 X10^3/uL; Monocyte% 7.5 % (0-10); NRBC Flagged by Analyzer 0 % (0-5); Neutrophil # 4.23 X10^3/uL (2.7-7.7); Neutrophil % 67.3 % (47-70); Platelet Count 237 K/mm3 (150-450); RBC Distribution Width CV 14.9 % (11.6-14.6); RBC Distribution Width SD 52.2 fl (35.1-43.9); Red Blood Count 3.99 M/mm3 (4.6-6.2); White Blood Count 6.3 K/mm3 (4.4-11.0)
[2023-03-27 12:27] LABS: BNP,B-Type NATRIURETIC PEPTIDE 139.6 pg/mL (0-100)
[2023-03-27 13:08] LABS: AST(SGOT) 12 U/L (15-37); AST(SGOT) 14 U/L (15-37); Alanine Aminotransfer ALT/SGPT 12 U/L (16-61); Albumin, Serum 3.4 g/dL (3.2-5.0); Alkaline Phosphatase 78 U/L (45-117); Alkaline Phosphatase 79 U/L (45-117); Anion Gap 2 (5-15); BUN 19 mg/dL (7-18); BUN/Creat Ratio 14.6 RATIO (10-20); Bilirubin, Direct 0.23 mg/dL (0.00-0.30); Chloride 107 mmol/L (98-107); Cholesterol 97 mg/dL (200); EST Glomerular Filtration Rate 57 mL/min (>60); Est Glom Filt Rate - Afr Amer 69 mL/min (>60); Globulin 3.4 g/dL (2.2-4.2); Glucose 88 mg/dL (74-106); High Density Lipoprotein 41 mg/dL; Potassium 4.2 mmol/L (3.5-5.1); Protein, Total 6.8 g/dL (6.4-8.2); Sodium Level 137 mmol/L (136-145); Triglycerides 53 mg/dL; Very Low Density Lipoprotein 11 mg/dL (5-40)
== END | disposition home or self-care (01) ==
LOC: LAB 11:12
PROVIDERS: Nurse Practitioner Family; PCP Internal Medicine; Referring Provider Nurse Practitioner Gerontology; Visit Provider Nurse Practitioner Gerontology
DX: E78.00 Pure hypercholesterolemia, unspecified (principal); R06.09 Other forms of dyspnea; I10 Essential (primary) hypertension
CPT/HCPCS: 36415; 80053; 80061; 80076; 83880; 85025

== ENCOUNTER → 2023-04-15 | Outpatient (CLI) | payer MEDICARE, SELFPAY ==
--- NOTE | 2023-04-15 12:08 | ECHOD_ITS ---
Reason For Study: SOB Procedure This was a 2D Doppler, Color Flow transthoracic echocardiogram. Exam performed in department. Left Ventricle Normal size and thickness. The left ventricular ejection fraction is 55 %. Stage 1 diastolic dysfunction. Right Ventricle ICD or pacer leads identified within the right ventricle. Atria Normal left atrium. ICD or pacer leads identified within the right atrium. Mitral Valve Mild diffuse mitral valve thickening. Mild (1+) mitral valve insufficiency. Tricuspid Valve Mild tricuspid valve insufficiency. Right ventricular systolic pressure estimated to be 42 mmHg. Aortic Valve Aortic sclerosis, no stenosis. Mild (1+) aortic valve insufficiency. Pulmonic Valve The pulmonic valve is not well visualized. Great Vessels Moderately dilated aortic root. Pericardium/Pleural No pericardial effusion. MMode/2D Measurements & Calculations LVIDd: 4.3 cm IVSd: 1.1 cm Ao root diam: 4.5 cm LVIDs: 2.9 cm LVPWd: 1.1 cm RVDd: 3.2 cm FS: 33.8 % LAV(MOD-bp): 44.5 ml LVAd ap4: 27.8 cm2 LVAd ap2: 27.9 cm2 LAV(MOD-bp) Indexed: 22.7 ml/m2 LVLd ap4: 8.3 cm LVLd ap2: 8.7 cm LAV(MOD-sp2): 44.4 ml EDV(MOD-sp4): 80.8 ml EDV(MOD-sp2): 73.1 ml LAV(MOD-sp4): 45.0 ml EDV(sp4-el): 79.4 ml EDV(sp2-el): 76.2 ml LVAs ap4: 17.9 cm2 LVAs ap2: 19.2 cm2 LVLs ap4: 8.0 cm LVLs ap2: 8.2 cm ESV(MOD-sp4): 34.6 ml ESV(MOD-sp2): 37.7 ml ESV(sp4-el): 33.9 ml ESV(sp2-el): 38.1 ml EF(MOD-sp4): 57.2 % EF(MOD-sp2): 48.5 % EF(sp4-el): 57.3 % SV(MOD-sp4): 46.2 ml SV(MOD-sp2): 35.4 ml SV(sp4-el): 45.5 ml LA dimension(2D): 3.0 cm LA A4 area: 17.7 cm2 RA A4 area: 19.3 cm2 TAPSE: 2.3 cm Doppler Measurements & Calculations MV E max chinmay: 38.7 cm/sec Lat Peak E' Chinmay: 3.8 cm/sec Med Peak E' Chinmay: 4.0 cm/sec MV A max chinmay: 62.2 cm/sec E/E' lat: 10.2 E/E' med: 9.7 MV E/A: 0.62 Ao V2 max: 80.6 cm/sec LV V1 max: 61.8 cm/sec PA V2 max: 46.2 cm/sec Ao max P.6 mmHg LV V1 max P.5 mmHg Ao V2 mean: 52.4 cm/sec LV V1 mean P.78 mmHg Ao mean P.3 mmHg LV V1 mean: 40.6 cm/sec Ao V2 VTI: 19.4 cm LV V1 VTI: 17.8 cm AV (velocity ratio): 0.92 TR max chinmay: 262.5 cm/sec TR max P.6 mmHg ECHO/Echo Complete Interpretation Summary The left ventricular ejection fraction is 55 %. Stage 1 diastolic dysfunction. Mild (1+) mitral valve insufficiency. Aortic sclerosis, no stenosis. Mild (1+) aortic valve insufficiency. Moderately dilated aortic root. Ordering Physician: Fouzia Aponte Referring Physician: Brittany Persaud M.D. Performed By: Christiane Orantes RDCS
== END | disposition home or self-care (01) ==
PROVIDERS: PCP Internal Medicine; Referring Provider Nurse Practitioner Gerontology; Visit Provider Nurse Practitioner Gerontology
DX: R06.09 Other forms of dyspnea (principal)
CPT/HCPCS: 93306

== ENCOUNTER → 2023-04-21 | Outpatient (CLI) | payer MEDICARE, SELFPAY ==
--- NOTE | 2023-04-21 15:05 | CT_ITS ---
STUDY: CT CHEST WITHOUT CONTRAST REASON FOR EXAM: Male, 78 years old. Follow mutliple nodules RADIATION DOSAGE (If Supplied By Facility): CTDIvol = ( 7.28 ) mGy, DLP = ( 311.00 ) mGycm TECHNIQUE: Transaxial imaging was performed without the administration of intravenous contrast material. Multiplanar coronal and sagittal images were reformatted. Individualized dose optimization techniques were used for this CT. COMPARISON: Comparison is made with prior study dated January 16, 2023. FINDINGS: CHEST Hyperinflation. Emphysematous changes. Stable linear density in the right middle lobe posteriorly with a volume loss suggestive of bronchiectasis and volume loss. Stable 4 mm noncalcified nodule in the right upper lobe as seen on axial image #34. The previously seen 2 adjacent nodules in the posterior aspect of the right lower lobe is not seen at this time. There is no demonstrated pleural abnormality. There are calcifications of the coronary arteries. A left-sided dual-chamber pacemaker is seen. Normal mediastinum. Calcified right hilar lymph nodes. Normal unenhanced pulmonary arteries. There is atherosclerotic calcification of the aortic arch. There are multi-level degenerative changes of the thoracic spine. There is no demonstrated abnormality of the visualized upper abdomen. CT/Chest without Contrast IMPRESSION: Hyperinflation and emphysematous changes. The previously seen 2 adjacent nodules in the right lower lobe as seen on prior study on axial 163 are not seen at this time. Electronically Signed: Lico Torrez MD at 15:40 EDT ,
== END | disposition home or self-care (01) ==
LOC: CT 15:02
PROVIDERS: PCP Internal Medicine; Referring Provider Nurse Practitioner Acute Care; Visit Provider Nurse Practitioner Acute Care
DX: R91.1 Solitary pulmonary nodule (principal)
CPT/HCPCS: 71250

== ENCOUNTER → 2023-07-22 | Outpatient (CLI) | payer MEDICARE, SELFPAY ==
--- NOTE | 2023-07-22 16:17 | RAD_ITS ---
STUDY: X-RAY CHEST REASON FOR EXAM: Male, 78 years old. Productive cough, COPD TECHNIQUE: PA and lateral views of the chest. COMPARISON: 08/22/2022 FINDINGS: Left subclavian pacemaker which is unchanged. There is hyperinflation of the lungs consistent with chronic obstructive lung disease (COPD). There is no demonstrated pleural abnormality. Normal size heart. Normal mediastinum and jonah. Normal visualized pulmonary arteries. Normal visualized aortic arch and descending thoracic aorta. There is a levoscoliosis of the thoracic spine. Normal visualized ribs, clavicles, and shoulders. There is no demonstrated abnormality of the visualized soft tissue structures of the upper abdomen. RAD/Chest PA and Lateral IMPRESSION: Emphysema without pneumonia or atelectasis. Electronically Signed: Charanjit Rios MD at 19:15 EST ,
[2023-07-22 16:35] LABS: Hematocrit 39.1 % (40-54); Hemoglobin 12.5 g/dL (13.0-16.5); Mean Corpuscular Hgb 30.1 pg (27.0-32.0); Mean Corpuscular Volume 94.2 fL (80-94); Mean Platelet Vol. 11.4 fl (6.2-12.0); Platelet Count 155 K/mm3 (150-450); RBC Distribution Width CV 15.3 % (11.6-14.6); RBC Distribution Width SD 53.4 fl (35.1-43.9); Red Blood Count 4.15 M/mm3 (4.6-6.2)
[2023-07-22 17:04] LABS: BNP,B-Type NATRIURETIC PEPTIDE 258.4 pg/mL (0-100)
[2023-07-22 17:08] LABS: ALB/GLOB Ratio 0.9 RATIO (0.9-2.4); AST(SGOT) 21 U/L (15-37); Alanine Aminotransfer ALT/SGPT 18 U/L (16-61); Albumin, Serum 3.2 g/dL (3.2-5.0); Alkaline Phosphatase 72 U/L (45-117); Anion Gap 1 (5-15); BUN 36 mg/dL (7-18); BUN/Creat Ratio 26.7 RATIO (10-20); Calcium,Total 9.1 mg/dL (8.5-10.1); Chloride 111 mmol/L (98-107); Creatinine, Serum 1.35 mg/dL (0.70-1.30); EST Glomerular Filtration Rate 54 mL/min (>60); Est Glom Filt Rate - Afr Amer 66 mL/min (>60); Globulin 3.5 g/dL (2.2-4.2); Glucose 109 mg/dL (74-106); Potassium 3.9 mmol/L (3.5-5.1); Protein, Total 6.7 g/dL (6.4-8.2); Sodium Level 141 mmol/L (136-145)
== END | disposition home or self-care (01) ==
LOC: LAB 16:02
PROVIDERS: PCP Internal Medicine; Referring Provider Nurse Practitioner Gerontology; Visit Provider Nurse Practitioner Gerontology
DX: R05.8 Other specified cough (principal); R06.09 Other forms of dyspnea; R91.8 Other nonspecific abnormal finding of lung field; R53.1 Weakness
CPT/HCPCS: 36415; 71046; 80053; 83880; 85027

== ENCOUNTER 2023-08-05 14:12 | Emergency (ER) | payer MEDICARE, SELFPAY ==
[2023-08-05 14:14] VITALS: BP 201/67; PULSE 79; RESP 24; TEMP 36.6; O2SAT 65
[2023-08-05 14:18] VITALS: O2SAT 94
[2023-08-05 14:21] VITALS: PULSE 60; RESP 20
[2023-08-05 14:25] VITALS: PULSE 60; RESP 18; O2SAT 98
--- NOTE | 2023-08-05 15:20 | CT_ITS ---
EXAM: CT ANGIOGRAPHY CHEST WITHOUT AND WITH INTRAVENOUS CONTRAST CLINICAL INDICATION: hemoptysis TECHNIQUE: Helically acquired angiography images were obtained of the chest without and with intravenous contrast. This CT exam was performed using one or more of the following dose reduction techniques: automated exposure control, adjustment of the mA and/or kV according to patient size, and/or use of iterative reconstruction technique. MIP reconstructed images were created and reviewed. CONTRAST: IV 100mL [id number] COMPARISON: 04/21/2023 FINDINGS: PULMONARY ARTERIES: Unremarkable. Normal in caliber. No evidence of pulmonary embolism. AORTA: Unremarkable. Normal in caliber. No evidence of dissection. GREAT VESSELS OF AORTIC ARCH: Unremarkable. Normal in caliber. No evidence of dissection. LUNGS AND PLEURAL SPACES: There is minimal consolidation seen within the right middle lobe which may represent atelectasis. There is also minimal consolidation in the left lung base may represent atelectasis or developing pneumonia. Lungs are mildly hyperinflated. There are emphysematous changes seen within the lung apices and left lung base. No mass. No pleural effusion or thickening. HEART: Unremarkable. Heart size is normal. No pericardial effusion. No significant coronary artery calcifications. MEDIASTINUM: Unremarkable. No mediastinal or hilar adenopathy. Esophagus is unremarkable. No hiatal hernia. THYROID: Unremarkable. No thyroid lesions. BONES/JOINTS: Unremarkable. No suspicious lytic or blastic abnormality. CT/CTA Chest W/WO Contrast IMPRESSION: 1. No evidence of pulmonary embolus. 2. Pulmonary hyperinflation with emphysematous change. There is consolidation at the left lung base as well as in the right middle lobe which may represent atelectasis or early pneumonia. Electronically Signed: Colton Alexander MD at 16:57 EST ,
--- NOTE | 2023-08-05 15:20 | EKG12_ITS ---
Test Reason : SOB Blood Pressure : / mmHG Vent. Rate : 060 BPM Atrial Rate : 060 BPM P-R Int : 270 ms QRS Dur : 090 ms QT Int : 440 ms P-R-T Axes : 000 -89 -81 degrees QTc Int : 440 ms Atrial-paced rhythm with prolonged AV conduction Left axis deviation ST & T wave abnormality, consider inferior ischemia Abnormal ECG Confirmed by JAMIR BALES, YOGESH ([id number]), video effects editor BRANDO CHAVEZ ([id number]) on 08/07/2023 9:47:29 AM Referred By: Confirmed By:YOGESH BOWIE MD
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
[2023-08-05 15:59] LABS: Absolute Lymphocyte Count 0.77 X10^3/uL (0.83-4.51); Basophil# 0.04 X10^3/uL; Basophil% 0.4 % (0-1); Eosinophil# 0.06 X10^3/uL; Eosinophils% 0.6 % (0-5); Hematocrit 39.1 % (40-54); Hemoglobin 12.2 g/dL (13.0-16.5); Lymphocyte # 0.77 X10^3/ul (0.83-4.51); Lymphocyte % 7.6 % (19-41); Mean Corp Hgb Conc 31.2 g/dL (32-36); Mean Corpuscular Hgb 29.5 pg (27.0-32.0); Mean Corpuscular Volume 94.4 fL (80-94); Mean Platelet Vol. 11.2 fl (6.2-12.0); Monocyte# 0.23 X10^3/uL; Monocyte% 2.3 % (0-10); NRBC Flagged by Analyzer 0 % (0-5); Neutrophil # 8.98 X10^3/uL (2.7-7.7); Neutrophil % 88.4 % (47-70); Platelet Count 268 K/mm3 (150-450); RBC Distribution Width SD 51.9 fl (35.1-43.9); Red Blood Count 4.14 M/mm3 (4.6-6.2); White Blood Count 10.2 K/mm3 (4.4-11.0)
[2023-08-05 16:09] LABS: Anion Gap 6 (5-15); BUN 37 mg/dL (7-18); BUN/Creat Ratio 24.5 RATIO (10-20); Calcium,Total 9.8 mg/dL (8.5-10.1); Chloride 104 mmol/L (98-107); Creatinine, Serum 1.51 mg/dL (0.70-1.30); EST Glomerular Filtration Rate 48 mL/min (>60); Est Glom Filt Rate - Afr Amer 58 mL/min (>60); Glucose 98 mg/dL (74-106); Sodium Level 138 mmol/L (136-145); Troponin-I HS 7 pg/mL (3.0-78.0)
--- OUTSIDE RECORDS SUMMARY | 2023-08-05 16:16 | XMS RPT_ITS | CCD ---
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 [facility] Start: 03-20-2023 Influenza vaccination INFLUENZA VACCINE (#1) [facility] Start: 03-20-2022 Influenza vaccination INFLUENZA VACCINE (Season Ended) [facility] Start: 07-26-2021 Colonoscopy COLORECTAL CANCER SCREENING DISCUSSION [facility] Start: 07-26-2021 Screening for malignant neoplasm of colon COLORECTAL CANCER SCREENING DISCUSSION [facility] Start: 06-06-2021 End: 06-06-2021 Patient encounter procedure 06/06/2021 Office Visit Pulmonary Disease Keely Lanier, PATIENT CARE ASSISTANT-ROLL COVERER [address] [address] [facility] Pulmonary Disease [facility] Start: 06-05-2021 End: 06-05-2021 Patient encounter procedure [facility] Start: 05-09-2021 Prostate specific antigen measurement PROSTATE CANCER SCREENING DISCUSSION [facility] Start: 04-18-2021 End: 04-18-2021 Patient encounter procedure [facility] [place] Start: 04-11-2021 End: 04-11-2021 Patient encounter procedure [facility] [place] Start: 03-27-2021 End: 03-27-2021 Patient encounter procedure 03/27/2021 Office Visit Pulmonary Disease Eugene Ch MD [address] [place] [address] [facility] [place] Start: 03-20-2021 Influenza vaccination [facility] Start: 03-14-2021 End: 03-14-2021 Patient encounter procedure [facility] Pulmonary Disease [facility] [place] Start: 03-12-2021 End: 03-12-2021 Patient encounter procedure 03/12/2021 Office Visit Pulmonary Disease Eugene Ch MD [address] [place] [address] [facility] [place] Start: 03-06-2021 End: 12-04-[address] CHEST WITHOUT CONTRAST Imaging Routine Pulmonary nodules Centrilobular emphysema Expected: 03/06/2021 (Approximate), Expires: 12/04/2021 [facility] Immunizations Immunization Date Immunization Notes Care Provider Montrell gould 05-22-2022 influenza virus vaccine, unspecified formulation Sergio Fuentes MD Work Phone: [facility] 06-19-2016 influenza virus vaccine, unspecified formulation Charleen Mendoza [facility] Payers Date Payer Category Payer Medicare [facility] [id number] 2021-Present [address] [address] [place] [address] [id number] 2021 Private Health Insurance [id number] 2020 Medicare [id number] 1979 Medicare [id number] 1975 Medicare MEDICARE MEDICAR E A AND B xxxxxxxxxxx 1975-Present [place], [place] xxxxxxxxxxx [id number] 1975 Medicare MEDICARE MEDICAR E A AND B [id number] 1975-Present [place] [id number] 1975 Medicare [id number] 1945 Unknown [id number] 1945 Unknown [id number] 1945 Unknown [id number] 1945 Unknown [id number] Unknown [facility] MCARE HMO Social History Date Type Detail Facility Start: 07-19-2018 End: 02-05-2021 Tobacco smoking status NHIS Current every day smoker [facility] Work Phone: Start: 1945 Sex Assigned At Not on file O [facility] Work Phone: Start: 10-21-2018 End: 07-10-2023 Cigarettes smoked current (pack per day) - Reported [facility] Start: 07-11-2019 End: 07-10-2023 Alcohol intake Current non-drinker of alcohol (finding) [facility] Start: 07-19-2018 End: 02-18-2020 Tobacco use and exposure Never used [facility] Exposure to SARS-CoV -2 (event) Not sure [employer] Exposure to SARS-CoV -2 (event) Unable to assess [facility] Start: 03-14-2021 End: 04-09-2021 Tobacco smoking status NHIS Former smoker [facility] Start: 03-14-2021 End: 04-09-2021 Tobacco use and exposure Former user [employer] End: 02-25-2021 History of tobacco use User of smokeless tobacco [facility] End: 02-25-2021 History of tobacco use Current smoker [employer] Tobacco smoking consumption unknown [facility] End: 02-25-2021 History of tobacco use Cigarette Smoker [employer] Start: 07-10-2023 Tobacco use panel [facility] Start: 07-19-2018 Gender identity Identifies as male gender (finding) [employer] Medical Equipment Procedure Code Equipment Code Equipment Origin al Text Equipment Identifier Dates Cardiac pacemaker, device (physical object) ([id number]) [employer] Pulse Generator [id number] Start: 04-10-2021 Clinical Notes 11-19-2020 to 07-10-2023 Discharge InstructionsAttachmentsSergio Fuentes MD - 07/10/2023 2:34 PM Suyapa Fuentes MD - 07/10/2023 2:34 PM Tran Walker RN - 07/10/2023 2:33 PM Dank Instr - Activity Note Date & Type Note Facility 07-10-2023 Hospital Discharg e instructions Sergio Fuentes MD - 07/10/2023 4:14 PM EST Ice pack to there intermittently. Tylenol 500 mg every 4-6 hours as needed for aches or pains over the next 2 days. Do not take aspirin, ibuprofen, or other nonsteroidal anti-inflammatory medications. Return to ER if you have any other questions or concerns, or feel worse in any way. The following attachments cannot be sent through Care Everywhere.Fall Prevention at Home ([facility]) (Armenian)Head Injury: Closed: General Info (Armenian)documented in this encounter [facility] 07-10-2023 Physician Emergen cy department Note Emergency Room Note [facility] Service Date:.07/10/23 PCP: Estephania Persaud Chief Complaint: Chief Complaint Patient presents with Fall Patient arrives today for a fall and a hematoma around the right eye. Pt takes blood thinners. Pt denies LOC HPI Isaias Breaux is a 78 y.o. male presents to the ED today due to right facial pain and swelling after fall. Patient fell around 9:00 a.m. this morning. Struck the right side of his face. He states he tripped over his oxygen cord and fell. He did not lose consciousness. He has no neck pain or back pain. He was able to get up off the floor. He went to bed and took a nap. He came in because his face is now swollen and slightly sore. He has no visual changes. He has no nausea or vomiting. States other than the swelling and pain on the right side of his face he has no complaints. Review of Systems: Review of Systems Usual state of health until this occurred at 9:00 a.m. this morning. He states he simply tripped and fell over his oxygen cord. He had no lightheadedness, vertigo, or syncope. He had no chest pain. He has chronic shortness breath which he states is unchanged. He does wear oxygen at night. Longstanding history of smoking and he does continue to smoke. He denies any recent nausea, vomiting, or other gastrointestinal complaints. Denies any recent hematuria, dysuria, or other genitourinary complaints. He does take Eliquis and states he bruises easily. He has had no recent epistaxis, hematuria, melena, or hematochezia. He did have some bleeding from the right side of his nose after he fell. He was able to stop this with minimal pressure. He denies any other bleeding. He has no recent unexplained weight loss. Denies feeling anxious or depressed. I did go through remainder of review of systems with this patient to include 10 systems and is negative unless mentioned above. Past Medical History: Past Medical History: Diagnosis Date Arrhythmia Arthritis CAD (coronary artery disease) Cardiac angina COPD (chronic obstructive pulmonary disease) Emphysema lung Hyperlipidemia Hypertension Lung disease [place] (myocardial infarction) ROMEO (obstructive sleep apnea) Pacemaker Renal disease Seizure 06/06/2020 Witnessed Past Surgical History: Past Surgical History: Procedure Laterality Date AAA REPAIR 01/31/2016 REMOVAL CATARACT (PEM) Bilateral 2012 PACEMAKER PLACEMENT 2002 battery change 2012 CORONARY STENT PLACEMENT 1996 BACK SURGERY N/A [id number] HEART CATHETERIZATION RELEASE CARPAL TUNNEL Right Allergies: Allergies Allergen Reactions Penicillins Hives and Swelling Tamsulosin Other reaction(s): Other (See Comments) Makes him blackout Clopidogrel Itching Medications: Patient's Medications New Prescriptions No medications on file Previous Medications ALBUTEROL (2.5 MG/3ML) 0.083% INHALATION SOLUTION inhale contents of 1 vial ( 3 milliliters ) in nebulizer by mouth and INTO THE LUNGS every 6 hours if needed ALBUTEROL 108 (90 BASE) MCG/ACT AERO SOLN INHALER Inhale 1-2 puffs every 6 hours as needed for Shortness of Breath or Wheezing. ASPIRIN (ECOTRIN LOW STRENGTH) [address] TABLET Take 1 tablet by mouth daily. ATORVASTATIN 10 MG TABLET Take 1 tablet by mouth daily. BUDESONIDE-FORMOTEROL (SYMBICORT) 160-4.5 MCG/PUFF AEROSOL INHALER Inhale 2 puffs every 12 hours. DISABILITY PLACARD Disability placard end date 08/29/2020 DISABILITY PLACARD Disability placard end date 09/19/2025 FLUTICASONE 50 MCG/ACT SUSPENSION NASAL SPRAY 2 sprays by Nasal route daily. FOLIC ACID 1 MG TABLET Take 1 tablet by mouth daily. IPRATROPIUM-ALBUTEROL 0.5-2.5 (3) MG/3ML NEBULIZER SOLUTION Take 3 mL by nebulization 4 times daily. LISINOPRIL 10 MG TABLET Take 1 tablet by mouth daily. METOPROLOL 25 MG TAB REGULAR RELEASE Take 1 tablet by mouth 2 times daily. MIDODRINE 5 MG TABLET Take 1 tablet by mouth 3 times daily (space doses 6 hours apart). MISC. DEVICES MISC by Unknown route. APAP 5-20 cm H2O set up 04/19/21 [facility] NITROGLYCERIN 0.[address] 1 tablet under tongue every 5 minutes as needed for Chest pain. max = 3 doses. If CP persists after 3rd dose, call 911 OXYGEN GAS Patient discharged from [facility] on 4 Liters of Oxygen via nc due to desaturation. Please provide oxygen for patient due to [facility] ED discharge instructions. This order certifies that this patient is under my care and that I, or a Nurse Practitioner or Physician's Grinder Gear had a Ydlg-sl-Bjbu Encounter with them. Based upon those findings, the equipment/supplies listed above are medically necessary. ROFLUMILAST (DALIRESP) 500 MCG TABLET Take 1 tablet by mouth daily. TIOTROPIUM (SPIRIVA RESPIMAT) 2.5 MCG/ACT AERO SOLN INHALER Inhale 2 puffs daily. Modified Medications No medications on file Discontinued Medications No medications on file Family History: Family History Problem Relation Age of Onset Dysrhythmia Mother Dysrhythmia Brother Myocardial Infarction Brother Social History: Social History Socioeconomic History Marital status: Single Spouse name: Not on file Number of children: Not on file Years of education: Not on file Highest education level: Not on file Occupational History Not on file Tobacco Use Smoking status: Former Packs/day: .25 Types: Cigarettes Quit date: 02/25/2021 Years since quittin.3 Smokeless tobacco: Former Quit date: 02/25/2021 Vaping Use Vaping Use: Never used Substance and Sexual Activity Alcohol use: No Drug use: No Sexual activity: Not on file Other Topics Concern Service Not Asked Blood Transfusions Not Asked Caffeine Concern Not Asked Occupational Exposure Not Asked Hobby Hazards Not Asked Sleep Concern Not Asked Stress Concern Not Asked Weight Concern Not Asked Special Diet Not Asked Back Care Not Asked Exercise Not Asked Bike Helmet Not Asked Seat Belt Not Asked Domestic Violence No Social History Narrative Not on file Social Determinants of Health Financial Resource Strain: Not on file Food Insecurity: Not on file Transportation Needs: Not on file Physical Activity: Not on file Stress: Not on file Social Connections: Not on file Intimate Partner Violence: Not on file Housing Stability: Not on file Physical Exam: Physical Exam 78-year-old male who is awake and alert. He is opening eyes spontaneously. He answers questions appropriately. He moves all 4 extremities on command. He is oriented to person, place, and time. His Corrie coma scale is 15. He has ecchymosis with soft tissue swelling entire right orbital area as well as a right superior orbital area. He has some swelling with ecchymosis over the bridge of the nose as well. I do not see any other signs of trauma on HEENT exam. Sclera and conjunctiva clear and moist. I do not see any redness or drainage from the eyes. Pupils are equal and reactive. Extraocular movements are grossly intact. He is tender to palpation right inferior orbital area but he does have good sensation in this area. He is some tenderness over the bridge of the nose. There is some dry blood right naris but I do not see any active bleeding. Midface stable. No dental or oral lesions. No tenderness over the mandible or the TMJs. He has no tenderness over the posterior cervical spine. He has good range of motion neck without difficulty or discomfort. Trachea is midline. No crepitus or subcu emphysema. Chest has symmetrical excursion. He has no tenderness over the anterior chest. Lungs have markedly diminished breath sounds bilaterally occasional rhonchi. Heart is regular distant heart sounds. He has no tenderness over the back and no signs of trauma with inspection of the back. Abdomen is soft and nontender. Pelvis is stable and nontender. Has bruising of different ages on the forearms. He has no tenderness palpation over the upper extremities. He moves his shoulders, elbows, and wrists without difficulty or discomfort. 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 Good range of motion hips, knees, ankles without difficulty or discomfort. There is no tenderness to palpation over the lower extremities. Vital Signs During ED Visit Patient Vitals for the past 24 hrs: BP Temp Temp src Pulse Resp SpO2 Height 07/10/23 1600 -- -- -- 60 -- 95 % -- 07/10/23 1544 187/87 -- -- 60 12 97 % -- 07/10/23 1418 -- -- -- -- -- -- 1.88 m (6' 2 ) 07/10/23 1416 175/86 97.8 F (36.6 C) Temporal 93 19 94 % -- Orders/Results: Orders Placed This Encounter CT HEAD WITHOUT CONTRAST CT FACIAL WITHOUT CONTRAST Results for orders placed or performed during the hospital encounter of 09/11/22 [facility]ON[facility] LAB 1 - NASOPHARYNGEAL Specimen: NASOPHARYNGEAL; Fluid/Swab Result Value Ref Range SARS COV 2 RNA, QL REAL TIME RT PCR NOT DETECTED NOT DETECTED NARRATIVE -1 This test was performed using isothermal CHADD and has been approved as Emergency Use Authorization (EUA) for the qualitative detection [id number] nucleic acid. TROPONIN I, HIGH SENSITIVITY Result Value Ref Range TROPONIN I, HIGH SENSITIVITY 10 0 - 20 pg/mL CBC, EDIF, PLATELET Result Value Ref Range WBC (WHITE BLOOD COUNT) 11.0 3.6 - 11.0 10*3/uL RBC 3.84 (L) 4.0 - 6.1 10*6/uL HEMOGLOBIN (HGB) 11.6 (L) 14.0 - 18.0 G/DL HEMATOCRIT (HCT) 36.0 (L) 42.0 - 52.0 % MEAN CELL VOLUME 93.8 80.0 - 100.0 FL Mean Cell HGB 30.3 26.0 - 35.0 PG MEAN CELL HGB CONCENTRATION 32.3 27.0 - 37.0 G/DL RBC DISTRIBUTION 16.3 (H) 11.5 - 14.5 % PLATELET COUNT 155 130.0 - 400.0 10*3/uL MEAN PLATELET VOLUME 9.3 7.4 - 11.0 FL DIFFERENTIAL TYPE AUTO DIFF % NEUTROPHILS 85.0 (H) 37.0 - 75.0 % LYMPHOCYTE 6.5 (L) 20.0 - 55.0 % MONOCYTE % 6.9 0.0 - 10.0 % EOSINOPHIL % 1.0 0.0 - 11.0 % BASOPHIL % 0.6 0.0 - 2.0 % Absolute Neutrophil Count 9.4 (H) 1.4 - 6.5 10*3/uL LYMPHOCYTES, ABSOLUTE 0.7 (L) 1.2 - 3.4 10*3/uL MONOCYTES, ABSOLUTE 0.8 (H) 0.0 - 0.7 10*3/uL ABSOLUTE EOSINOPHIL COUNT 0.1 0.0 - 0.7 10*3/uL ABSOLUTE BASOPHIL COUNT 0.1 0.0 - 0.2 10*3/uL COMPREHENSIVE METABOLIC PANEL Result Value Ref Range Glucose 82 70 - 100 MG/DL BUN 34 (H) 7 - 20 MG/DL CREATININE SERUM 1.23 0.66 - 1.25 MG/DL SODIUM 135 (L) 136 - 145 MMOL/L POTASSIUM 3.8 3.5 - 5.1 MMOL/L CHLORIDE 104 98 - 107 MMOL/L CALCIUM 8.6 8.4 - 10.2 MG/DL PROTEIN, TOTAL 6.5 6.3 - 8.2 GM/DL Albumin 3.2 (L) 3.5 - 5.0 G/dl BILIRUBIN, TOTAL 0.7 0.2 - 1.2 MG/DL AST 15 15 - 41 IU/L ALKALINE PHOSPHATASE 54 38 - 126 IU/L CARBON DIOXIDE (CO2) 23 22 - 30 MMOL/L A/G Ratio 1.0 (L) 1.3 - 2.2 RATIO ALT 16 (L) 17 - 63 IU/L ESTIMATED GFR, NON AMER 61 ml/min/1.73sq.m ESTIMATED GFR, 74 ml/min/1.73sq.m GFR COMMENT Average GFR for 70+ years old = 75. Radiographic Imaging CT FACIAL WITHOUT CONTRAST Final Result IMPRESSION: No acute facial fracture is identified. CT HEAD WITHOUT CONTRAST Final Result IMPRESSION: Age-appropriate atrophy and small vessel ischemic changes. No evidence of intracranial hemorrhage or other acute finding. Procedures: Procedures Moderate Sedation Procedure: No ED Summary/MDM No acute findings on the CT scans. The patient remains awake and alert. On recheck Corrie coma scale 15. He is ambulatory. States feels good and wants to go home. Ice pack to the area intermittently. Tylenol as directed for any aches or pains. Follow up his primary care provider next week. Return to ER if any other questions or concerns. He did voice understanding and agreement with this. He had no further questions at this time. He is discharged ambulatory and in stable condition. Clinical Impression: 1. Contusion of face, initial encounter 2. Injury of head, initial encounter 3. Fall, initial encounter No follow-ups on file. New Prescriptions No medications on file Discontinued Medications No medications on file An After Visit Summary was printed and given to the patient with above information. . Sergio Fuentes MD 07/10/[address] [facility] 07-10-2023 Emergency department Note Emergency Room Note [facility] Service Date:.07/10/23 PCP: Estephania Persaud Chief Complaint: Chief Complaint Patient presents with Fall Patient arrives today for a fall and a hematoma around the right eye. Pt takes blood thinners. Pt denies LOC HPI Isaias Breaux is a 78 y.o. male presents to the ED today due to right facial pain and swelling after fall. Patient fell around 9:00 a.m. this morning. Struck the right side of his face. He states he tripped over his oxygen cord and fell. He did not lose consciousness. He has no neck pain or back pain. He was able to get up off the floor. He went to bed and took a nap. He came in because his face is now swollen and slightly sore. He has no visual changes. He has no nausea or vomiting. States other than the swelling and pain on the right side of his face he has no complaints. Review of Systems: Review of Systems Usual state of health until this occurred at 9:00 a.m. this morning. He states he simply tripped and fell over his oxygen cord. He had no lightheadedness, vertigo, or syncope. He had no chest pain. He has chronic shortness breath which he states is unchanged. He does wear oxygen at night. Longstanding history of smoking and he does continue to smoke. He denies any recent nausea, vomiting, or other gastrointestinal complaints. Denies any recent hematuria, dysuria, or other genitourinary complaints. He does take Eliquis and states he bruises easily. He has had no recent epistaxis, hematuria, melena, or hematochezia. He did have some bleeding from the right side of his nose after he fell. He was able to stop this with minimal pressure. He denies any other bleeding. He has no recent unexplained weight loss. Denies feeling anxious or depressed. I did go through remainder of review of systems with this patient to include 10 systems and is negative unless mentioned above. Past Medical History: Past Medical History: Diagnosis Date Arrhythmia Arthritis CAD (coronary artery disease) Cardiac angina COPD (chronic obstructive pulmonary disease) Emphysema lung Hyperlipidemia Hypertension Lung disease [place] (myocardial infarction) ROMEO (obstructive sleep apnea) Pacemaker Renal disease Seizure 06/06/2020 Witnessed Past Surgical History: Past Surgical History: Procedure Laterality Date AAA REPAIR 01/31/2016 REMOVAL CATARACT (PEM) Bilateral 2012 PACEMAKER PLACEMENT 2002 battery change 2012 CORONARY STENT PLACEMENT 1996 BACK SURGERY N/A [id number] HEART CATHETERIZATION RELEASE CARPAL TUNNEL Right Allergies: Allergies Allergen Reactions Penicillins Hives and Swelling Tamsulosin Other reaction(s): Other (See Comments) Makes him blackout Clopidogrel Itching Medications: Patient's Medications New Prescriptions No medications on file Previous Medications ALBUTEROL (2.5 MG/3ML) 0.083% INHALATION SOLUTION inhale contents of 1 vial ( 3 milliliters ) in nebulizer by mouth and INTO THE LUNGS every 6 hours if needed ALBUTEROL 108 (90 BASE) MCG/ACT AERO SOLN INHALER Inhale 1-2 puffs every 6 hours as needed for Shortness of Breath or Wheezing. ASPIRIN (ECOTRIN LOW STRENGTH) [address] TABLET Take 1 tablet by mouth daily. ATORVASTATIN 10 MG TABLET Take 1 tablet by mouth daily. BUDESONIDE-FORMOTEROL (SYMBICORT) 160-4.5 MCG/PUFF AEROSOL INHALER Inhale 2 puffs every 12 hours. DISABILITY PLACARD Disability placard end date 08/29/2020 DISABILITY PLACARD Disability placard end date 09/19/2025 FLUTICASONE 50 MCG/ACT SUSPENSION NASAL SPRAY 2 sprays by Nasal route daily. FOLIC ACID 1 MG TABLET Take 1 tablet by mouth daily. IPRATROPIUM-ALBUTEROL 0.5-2.5 (3) MG/3ML NEBULIZER SOLUTION Take 3 mL by nebulization 4 times daily. LISINOPRIL 10 MG TABLET Take 1 tablet by mouth daily. METOPROLOL 25 MG TAB REGULAR RELEASE Take 1 tablet by mouth 2 times daily. MIDODRINE 5 MG TABLET Take 1 tablet by mouth 3 times daily (space doses 6 hours apart). MISC. DEVICES MISC by Unknown route. APAP 5-20 cm H2O set up 04/19/21 [facility] NITROGLYCERIN 0.[address] 1 tablet under tongue every 5 minutes as needed for Chest pain. max = 3 doses. If CP persists after 3rd dose, call 911 OXYGEN GAS Patient discharged from [facility] on 4 Liters of Oxygen via nc due to desaturation. Please provide oxygen for patient due to [facility] ED discharge instructions. This order certifies that this patient is under my care and that I, or a Nurse Practitioner or Physician's Grinder Gear had a Bbuq-de-Qtle Encounter with them. Based upon those findings, the equipment/supplies listed above are medically necessary. ROFLUMILAST (DALIRESP) 500 MCG TABLET Take 1 tablet by mouth daily. TIOTROPIUM (SPIRIVA RESPIMAT) 2.5 MCG/ACT AERO SOLN INHALER Inhale 2 puffs daily. Modified Medications No medications on file Discontinued Medications No medications on file Family History: Family History Problem Relation Age of Onset Dysrhythmia Mother Dysrhythmia Brother Myocardial Infarction Brother Social History: Social History Socioeconomic History Marital status: Single Spouse name: Not on file Number of children: Not on file Years of education: Not on file Highest education level: Not on file Occupational History Not on file Tobacco Use Smoking status: Former Packs/day: .25 Types: Cigarettes Quit date: 02/25/2021 Years since quittin.3 Smokeless tobacco: Former Quit date: 02/25/2021 Vaping Use Vaping Use: Never used Substance and Sexual Activity Alcohol use: No Drug use: No Sexual activity: Not on file Other Topics Concern Service Not Asked Blood Transfusions Not Asked Caffeine Concern Not Asked Occupational Exposure Not Asked Hobby Hazards Not Asked Sleep Concern Not Asked Stress Concern Not Asked Weight Concern Not Asked Special Diet Not Asked Back Care Not Asked Exercise Not Asked Bike Helmet Not Asked Seat Belt Not Asked Domestic Violence No Social History Narrative Not on file Social Determinants of Health Financial Resource Strain: Not on file Food Insecurity: Not on file Transportation Needs: Not on file Physical Activity: Not on file Stress: Not on file Social Connections: Not on file Intimate Partner Violence: Not on file Housing Stability: Not on file Physical Exam: Physical Exam 78-year-old male who is awake and alert. He is opening eyes spontaneously. He answers questions appropriately. He moves all 4 extremities on command. He is oriented to person, place, and time. His Corrie coma scale is 15. He has ecchymosis with soft tissue swelling entire right orbital area as well as a right superior orbital area. He has some swelling with ecchymosis over the bridge of the nose as well. I do not see any other signs of trauma on HEENT exam. Sclera and conjunctiva clear and moist. I do not see any redness or drainage from the eyes. Pupils are equal and reactive. Extraocular movements are grossly intact. He is tender to palpation right inferior orbital area but he does have good sensation in this area. He is some tenderness over the bridge of the nose. There is some dry blood right naris but I do not see any active bleeding. Midface stable. No dental or oral lesions. No tenderness over the mandible or the TMJs. He has no tenderness over the posterior cervical spine. He has good range of motion neck without difficulty or discomfort. Trachea is midline. No crepitus or subcu emphysema. Chest has symmetrical excursion. He has no tenderness over the anterior chest. Lungs have markedly diminished breath sounds bilaterally occasional rhonchi. Heart is regular distant heart sounds. He has no tenderness over the back and no signs of trauma with inspection of the back. Abdomen is soft and nontender.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 congruent to situation Verbal Skills no deficits noted Current Interpersonal Conduct/Behavior appropriate to situation Mental Health Conditions/Symptoms denies Thought Process Alterations no deficits noted Previous Mental Health Treatment none Referral Information Referral Source physician 02/26/21 0845 Time In/Out Time In 0845 Time Out 0918 Total Visit Time 33 minutes Total Treatment Time 33 minutes PT Therapy Completed Yes Initial Evaluation/Screen Completed? yes General Information RN Approved Intervention as tolerated Diagnosis COPD with acute exacerbation Surgical Procedure none Past Medical History Past Medical History: Diagnosis Date COPD (chronic obstructive pulmonary disease) Emphysema lung Hypertension Lung disease Pacemaker Seizure 06/06/2020 Witnessed Past Surgical History Past Surgical History: Procedure Laterality Date AAA REPAIR 01/31/2016 REMOVAL CATARACT (PEM) Bilateral 2012 PACEMAKER PLACEMENT 2002 battery change 2012 CORONARY STENT PLACEMENT 1996 BACK SURGERY N/A [id number] HEART CATHETERIZATION RELEASE CARPAL TUNNEL Right Existing Precautions/Restrictions fall;supplemental oxygen (2lpm via NC) Left Upper Extremity full weight bearing Right Upper Extremity full weight bearing Left Lower Extremity full weight bearing Right Lower Extremity full weight bearing Home Setting Residence House Lives With ( grandson's mother ; ex daughter in-law) First floor setup bedroom;tub shower Second floor setup other (see comments) (not used) Number of stairs to enter home 2 Number of stairs in home 12 Stair Railings at Home entry - no rail Mobility Equipment Available none used Home Environment Details Pt's ex daughter in-law has been performing grocery shopping for the last two months Previous Level of Function Ambulation Skills independent Assistive Device none used Level of Ambulation household General Pain Documentation (Adult, OB, Peds) Presence of Pain denies pain/discomfort Cognitive Status Examination Orientation Status (Cognition) oriented x 4 Level of Consciousness alert;cooperative Able to Follow Commands (Communication) WFL Personal Safety and Judgment intact Vision (reading glasses) Hearing no gross deficit noted Range of Motion (ROM) Range of Motion Examination bilateral lower extremity ROM was WFL Manual Muscle Testing (MMT) Manual Muscle Testing Results (4/5 globally BLE) Bed Mobility Skill: Supine to Sit, Rehab Eval Level of [place]: Supine/Sit contact guard Transfer Skill: Sit To Stand, Rehab Eval [place] (Sit-Stand Transfers) contact guard Assistive Device For Transfer: Sit/Stand (none used) Gait Skills, PT Eval Level of [place]: Gait contact guard Assistive Device For Transfer: Gait (none used) Gait Distance 25 feet (x2 with 1 standing rest break) Gait Analysis, PT Eval Gait Pattern Used swing-through gait Gait Deviations Identified (Gait) decreased demetrio;decreased gait speed;decreased heel strike;decreased step length;decreased stride length Impairments Contributing To Gait Deviations impaired balance;pain;decreased strength Stair Negotiation [place] Level: Stair Negotiation unable to assess (Pt became too weak during ambulation) Balance Additional Documentation (Fair standing regressed to fair (-) with ambulation) Plan of Care Interventions Planned Therapy Interventions balance training;bed mobility training;endurance;gait training;strengthening;transfer training Assessment Assessment Narrative Pt presents with increased weakness and decreased functional strength/ endurance. Pt ambulat to maintain 90% or greater SPO2 throughout the evaluation with short recovery time in standing. Pt biggest complaint is significant weakness in BLE as walking progresses which limits his safe ambulatory distance. Pt would benefit from skilled PT treatment to address these deficits and improve safety. Discharge Recommendations home with rollator and HH PT Clinical Impression Co-evaluation/co-treatment performed? No simultaneous treatment performed Criteria for Skilled Therapeutic Interventions Met (PT Eval) yes, treatment indicated Impairments Found (PT Eval) ergonomics and body mechanics;gait, locomotion, and balance;muscle performance Rehab Potential (PT Eval) good Therapy Frequency 7 times a week PT Therapies Still to Complete 5 Anticipated Equipment Needs at Discharge (PT Eval) other (see comments) (rollator) Continue care plan yes Today's Treatment Included PT evaluation, pt education Goals Goals For Discharge Home with HH PT and use of rollator Therapist Recommendations At Discharge Recommendations PT Services recommended at Discharge Plan Plan for next session gait training with rollator, stairs, ther ex Therapist Information License # [id number] 1. Pt will increase TUG score to 12 decrease fall risk. 2. Pt will perform all transfers with mod I to ensure safety at home. 3. Pt will ambulate 150' with rest breaks and use of rollator to ensure safety with short community ambulation. 4. Pt will ambulate up and down 4 steps with rail and CGA. 5. Pt will be independent with HEP. documented in this encounter [facility] 02-26-2021 Miscellaneous Notes Patient is discharging home at this time. Discharge instructions and handouts are provided to the patient at this time. He verbalizes understanding of these as well as new medications and the importance of following up outpatient. He denies further questions and is awaiting his ride home. Assessment is complete and remains unchanged from previous at this time with any exceptions noted in the flowsheet. Patient denies pain, SOB, and further needs and is left with call light and personals in reach. Discharge instructions and continuity of care is faxed to [facility] at this time. Corey, friend, is updated via phone at this time. Rested well throughout the night. No jameson signs of shortness of breath. O2 saturations remained in the high 90s on 2L NC. Call steinberg and personal items within reach. Will continue to monitor. documented in this encounter [facility] 02-26-2021 Hospital course Narrative Images from the original note were not included. Discharge Summary Summary Time: 02/26/21 11:12 AM Name: Isaias Breaux Age: 76 y.o. Birthday: 1945 Admit Date: 02/25/2021 8:44 AM Discharge Date: 02/26/2021 Brief Summary of Hospital Course: Patient is a 76 y.o. male presents to [facility] for evaluation of shortness of breath and abdominal pain. The patient was complaining of epigastric pain has been continuous for the last 4 days. Patient also reports he has been having increased shortness of breath and decreased by mouth intake. Patient presented to the emergency department at [facility]. Patient is currently taking Levaquin and prednisone for COPD exacerbation. He recently presented to the emergency department multiple times for dehydration and COPD exacerbations. Patient did report nausea and vomiting but no diarrhea. In the emergency department basic laboratory values were obtained. Urinalysis was negative, sodium 138, potassium 3.8, chloride 105, CO2 24, BUN 32, creatinine 1.46, calcium 8.8, hemoglobin 10.1. CT chest was ordered and showed severe emphysema with bullous changes worse in the lower lobes. Patient has stable noncalcified triangular-shaped right lower lobe pulmonary nodule unchanged from previous. Patient has CT abdomen and pelvis done and showed suboptimal examination of soft tissue structures and bowel without IV or oral contrast. Aorta iliac stent graft for treatment of abdominal aortic aneurysm with maximal size of the abdominal aorta 2.8 x 2.6 cm similar to previous study. Patient was admitted to the hospitalist service, Dr. Ovalles for COPD exacerbation and dehydration. On my evaluation the patient states he feels significantly better. He is on his baseline oxygen at 2 L nasal cannula. He states that he feels comfortable going home at this time. He denies chest pain or shortness of breath other than normal. Patient will be started on an a prednisone taper. Was directed to continue Levaquin and start Zithromax. The patient was directed to return to the hospital for any worsening symptoms. 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 Consultants: AIRAM Discharge Diagnosis: Principal Problem: COPD with acute exacerbation Active Problems: Essential hypertension OSCAR (acute kidney injury) Hx of cardiac pacemaker Cigarette nicotine dependence with nicotine-induced disorder Centrilobular emphysema Chronic respiratory failure with hypoxia, on home oxygen therapy ROMEO (obstructive sleep apnea) Discharge Vital Signs: Blood pressure 160/78, pulse 63, temperature 97.8 F (36.6 C), temperature source Oral, resp. rate 16, height 1.88 m (6' 2 ), weight 67.3 kg (148 lb 4.8 oz), SpO2 97 %. O2 Sat (%): 97 % (02/27 728) O2 Device: nasal cannula (02/27 840) Flow (L/min): 2 (02/27 840) Discharge Labs: Lab Results Component Value Date WBC 4.1 02/26/2021 HGB 10.1 (L) 02/26/2021 HCT 29.6 (L) 02/26/2021 PLATELET 213 02/26/2021 MCV 88.5 02/26/2021 @LASTMAGNESIUM(1D,2)@ Lab Results Component Value Date INR 1.08 02/25/2021 INR 0.98 11/19/2020 INR 0.94 06/30/2020 PT 14.3 02/25/2021 PT 13.2 11/19/2020 PT 12.3 06/30/2020 Lab Results Component Value Date CREATSERUM 1.46 (H) 02/26/2021 BUN 32 (H) 02/26/2021 SODIUM 138 02/26/2021 POTASSIUM 3.8 02/26/2021 CHLORIDE 105 02/26/2021 CO2 24 02/26/2021 Lab Results Component Value Date SPGRVTYUR 1.020 02/25/2021 GLUCOSEURINE NEGATIVE 02/25/2021 BILIRUBINURI NEGATIVE 02/25/2021 KETONESURINE NEGATIVE 02/25/2021 NITRITESURIN NEGATIVE 02/25/2021 LEUKOCESTUR NEGATIVE 02/25/2021 WBCURINE NEGATIVE 02/25/2021 RBCURINE NEGATIVE 02/25/2021 BACTERIAURIN NEGATIVE 02/25/2021 PHYSICAL EXAM: General: Patient resting comfortably. Awake. No acute distress. Cardiovascular: Regular rate and rhythm, without murmurs, rubs, or gallops. Respiratory: Bilateral Upper and Lower Lobes with wheezes Abdomen: Soft, rounded, non-tender. Bowel sounds present x4 quadrants. No rebound. No organomegaly or masses noted upon deep palpation. Extremities: No edema, clubbing or cyanosis, pulses palpable 2+ distally. Skin: Warm, Dry, Intact. Discharge Medications: Medication List for when you go home START taking these medications azithromycin 500 MG TABS Take 1 tablet by mouth daily for 5 days. Commonly known as: ZITHROMAX CHANGE how you take these medications predniSONE 20 MG TABS Take 2 tablets by mouth 2 times daily for 3 days, THEN 1 tablet 2 times daily for 4 days, THEN 0.5 tablets 2 times daily for 4 days. Commonly known as: DELTASONE What changed: See the new instructions. Start taking on: February 26, 2021 CONTINUE taking these medications * albuterol (2.5 MG/3ML) 0.083% inhalation solution Take 3 mL by nebulization every 6 hours as needed. Commonly known as: PROVENTIL * albuterol 108 (90 Base) MCG/ACT AERS inhaler Inhale 1-2 puffs every 6 hours as needed for Shortness of Breath or Wheezing. Commonly known as: VENTOLIN HFA For diagnoses: Chronic obstructive pulmonary disease, unspecified COPD type Aspirin [address] tablet Take 1 tablet by mouth daily. Commonly known as: Ecotrin Low Strength atorvastatin 10 MG TABS Take 1 tablet by mouth daily. Commonly known as: LIPITOR budesonide-formoterol 160-4.5 mcg/puff AERO inhaler Inhale 2 puffs every 12 hours. Commonly known as: Symbicort For diagnoses: Chronic obstructive pulmonary disease, unspecified COPD type Daliresp 500 MCG TABS Take 1 tablet by mouth daily. For diagnoses: Chronic obstructive pulmonary disease, unspecified COPD type Generic drug: roflumilast * DISABILITY PLACARD Disability placard end date 08/29/2020 For diagnoses: Syncope and collapse, Orthostatic hypotension * DISABILITY PLACARD Disability placard end date 09/19/2025 For diagnoses: Syncope and collapse, Cardiac pacemaker in situ fluticasone 50 MCG/ACT SUSP nasal spray 2 sprays by Nasal route daily. Commonly known as: FLONASE For diagnoses: Non-seasonal allergic rhinitis, unspecified trigger folic acid 1 MG TABS Take 1 tablet by mouth daily. Commonly known as: FOLVITE For diagnoses: Other folate deficiency anemias ipratropium-albuterol 0.5-2.5 (3) MG/3ML nebulizer solution Take 3 mL by nebulization 4 times daily. Commonly known as: DUONEB levoFLOXacin 750 MG TABS Take 1 tablet by mouth daily for 10 days. Commonly known as: LEVAQUIN metoprolol 25 MG tab regular release Take 1 tablet by mouth 2 times daily. Commonly known as: LOPRESSOR For diagnoses: Atherosclerosis of nikolai coronary artery of nikolai heart, angina presence unspecified, Old myocardial infarction, Hypertensive heart disease without congestive heart failure midodrine 5 MG TABS Take 1 tablet by mouth 3 times daily (space doses 6 hours apart). Commonly known as: ProAmatine For diagnoses: Syncope and collapse, Orthostatic hypotension nitroGLYCERIN 0.[address] 1 tablet under tongue every 5 minutes as needed for Chest pain. max = 3 doses. If CP persists after 3rd dose, call 911 Commonly known as: NITROSTAT For diagnoses: Chest pain, unspecified type oxygen gas Patient discharged from [facility] on 4 Liters of Oxygen via nc due to desaturation. Please provide oxygen for patient due to [facility] ED discharge instructions. This order certifies that this patient is under my care and that I, or a Nurse Practitioner or Physician's Grinder Gear had a [id number] Encounter with them. Based upon those findings, the equipment/supplies listed above are medically necessary. For diagnoses: Chronic obstructive pulmonary disease, unspecified COPD type Spiriva Respimat 2.5 MCG/ACT AERS inhaler Inhale 2 puffs daily. For diagnoses: Chronic obstructive pulmonary disease, unspecified COPD type Generic drug: tiotropium * The same medication is listed twice. Please discuss with your provider. Discharge Activity: Resume pre-hospital activities as tolerated. Discharge Diet: Resume pre-hospital diet as tolerated. Discharge Follow-up: Charleen Mendoza MD [id number] [place] [id number] Eugene Eagle MD [address] [facility] [id number] In 1 week Discharge Disposition: Patient will be discharged in stable condition. Discharge Time: Including assessment, planning, and medication reconciliation was greater than 35 min. Chris Montiel APRN-ROLL COVERER completing Discharge Summary for Dr. Ovalles Please note portions of this note utilized Soceaniqation software, please excuse any typographical or grammatical errors Associated attestation - Jose Ovalles MD - 02/26/2021 12:55 PM EDT Patient seen and examined. All testing reviewed. Discussed with ROLL COVERER and agree with A/P. Feels back to baseline. AF, VS normal. Taking po well. Ambulated. Slight drop in hgb likely dilutional. WBC normal. Home on cefdinir, Zithromax, and prednisone taper. Close outpt follow up. Objective: Blood pressure 127/64, pulse 67, temperature 97.9 F (36.6 C), temperature source Oral, resp. rate 16, height 1.88 m (6' 2 ), weight 67.3 kg (148 lb 4.8 oz), SpO2 99 %. Results for orders placed or performed during the hospital encounter of 02/25/21 RESPIRATORY CULTURE Specimen: SPUTUM Result Value Ref Range SPECIMEN DESCRIPTION SPUTUM GRAM STAIN SPECIMEN IS OF UNACCEPTABLE QUALITY, PLEASE RESUBMIT. RESULT-CULT PENDING REPORT STATUS PENDING NOVEL CORONAVIRUS LAB 1 - NASOPHARYNGEAL Specimen: NASOPHARYNGEAL; Fluid/Swab Result Value Ref Range SARS COV 2 RNA, QL REAL TIME RT PCR NOT DETECTED NOT DETECTED NARRATIVE -1 This test was performed using isothermal CHADD and has been approved as Emergency Use Authorization (EUA) for the qualitative detection [id number] nucleic acid. TROPONIN I, HIGH SENSITIVITY Result Value Ref Range TROPONIN I, HIGH SENSITIVITY 16 0 - 20 pg/mL CHEM 7 (LYTES,BUN,CREA,GLUC) Result Value Ref Range GLUCOSE 133 (H) 70 - 100 MG/DL BUN 32 (H) 7.0 - 20.0 MG/DL CREATININE SERUM 1.50 (H) 0.6 - 1.2 MG/DL SODIUM 138 136 - 145 MMOL/L POTASSIUM 3.3 (L) 3.5 - 5.1 MMOL/L CHLORIDE 102 98 - 107 MMOL/L CARBON DIOXIDE (CO2) 25 22 - 30 MMOL/L ESTIMATED GFR, NON AMER 48 ml/min/1.73sq.m ESTIMATED GFR, 59 ml/min/1.73sq.m GFR COMMENT Average GFR for 70+ years old = 75. HEPATIC FUNCTION PANEL Result Value Ref Range ALBUMIN 3.9 2.9 - 5.3 G/DL BILIRUBIN, TOTAL 1.2 0.2 - 1.2 MG/DL ALKALINE PHOSPHATASE 48 38 - 126 IU/L AST 31 15 - 41 IU/L BILIRUBIN, DIRECT 0.1 0.0 - 0.2 MG/DL PROTEIN, TOTAL 6.5 6.3 - 8.2 GM/DL ALT 37 17 - 63 IU/L LIPASE Result Value Ref Range LIPASE 43 23 - 300 U/L B-TYPE NATRIURETIC PEPTIDE (BRAIN) Result Value Ref Range BRAIN NATRIURETIC PEPTIDE 128 (H) 0 - 100 pg/mL CBC, EDIF, PLATELET Result Value Ref Range WBC (WHITE BLOOD COUNT) 9.3 3.6 - 11.0 10*3/uL RBC 4.31 4.0 - 6.1 10*6/uL HEMOGLOBIN (HGB) 13.1 (L) 14.0 - 18.0 G/DL HEMATOCRIT (HCT) 37.7 (L) 42.0 - 52.0 % MEAN CELL VOLUME 87.4 80.0 - 100.0 FL Mean Cell HGB 30.3 26.0 - 35.0 PG MEAN CELL HGB CONCENTRATION 34.7 27.0 - 37.0 G/DL RBC DISTRIBUTION 15.9 (H) 11.5 - 14.5 % PLATELET COUNT 370 130 - 400 10*3/uL MEAN PLATELET VOLUME 9.0 7.4 - 11.0 FL DIFFERENTIAL TYPE AUTO DIFF % NEUTROPHILS 79.5 (H) 37.0 - 75.0 % LYMPHOCYTE 11.6 (L) 20.0 - 55.0 % MONOCYTE % 8.5 0.0 - 10.0 % EOSINOPHIL % 0.3 0.0 - 11.0 % BASOPHIL % 0.1 0.0 - 2.0 % Absolute Neutrophil Count 7.4 (H) 1 - 6 10*3/uL LYMPHOCYTES, ABSOLUTE 1.10 (L) 1.2 - 3.4 10*3/uL MONOCYTES, ABSOLUTE 0.8 (H) 0.0 - 0.7 10*3/uL ABSOLUTE EOSINOPHIL COUNT 0.00 0 - 0 10*3/uL ABSOLUTE BASOPHIL COUNT 0.0 0 - 0 10*3/uL C REACTIVE PROTEIN Result Value Ref Range C-REACTIVE PROTEIN <7.9 0 - 10.0 MG/L SEDIMENTATION RATE, AUTOMATED Result Value Ref Range SEDIMENTATION RATE AUTOMATED 10 0 - 20 MM/HR PROTIME-INR Result Value Ref Range PT 14.3 11.8 - 14.4 SEC INR 1.08 0.85 - 1.10 CBC, EDIF, PLATELET Result Value Ref Range WBC (WHITE BLOOD COUNT) 4.1 3.6 - 11.0 10*3/uL RBC 3.35 (L) 4.0 - 6.1 10*6/uL HEMOGLOBIN (HGB) 10.1 (L) 14.0 - 18.0 G/DL HEMATOCRIT (HCT) 29.6 (L) 42.0 - 52.0 % MEAN CELL VOLUME 88.5 80.0 - 100.0 FL Mean Cell HGB 30.1 26.0 - 35.0 PG MEAN CELL HGB CONCENTRATION 34.0 27.0 - 37.0 G/DL RBC DISTRIBUTION 15.7 (H) 11.5 - 14.5 % PLATELET COUNT 213 130 - 400 10*3/uL MEAN PLATELET VOLUME 8.7 7.4 - 11.0 FL DIFFERENTIAL TYPE AUTO DIFF % NEUTROPHILS 93.9 (H) 37.0 - 75.0 % LYMPHOCYTE 3.6 (L) 20.0 - 55.0 % MONOCYTE % 2.5 0.0 - 10.0 % EOSINOPHIL % 0.0 0.0 - 11.0 % BASOPHIL % 0.0 0.0 - 2.0 % Absolute Neutrophil Count 3.9 1 - 6 10*3/uL LYMPHOCYTES, ABSOLUTE 0.10 (L) 1.2 - 3.4 10*3/uL MONOCYTES, ABSOLUTE 0.1 0.0 - 0.7 10*3/uL ABSOLUTE EOSINOPHIL COUNT 0.00 0 - 0 10*3/uL ABSOLUTE BASOPHIL COUNT 0.0 0 - 0 10*3/uL MAGNESIUM Result Value Ref Range MAGNESIUM 2.1 1.6 - 2.3 MG/DL RENAL FUNCTION PANEL Result Value Ref Range GLUCOSE 194 (H) 70 - 100 MG/DL BUN 32 (H) 7.0 - 20.0 MG/DL CREATININE SERUM 1.46 (H) 0.6 - 1.2 MG/DL SODIUM 138 136 - 145 MMOL/L POTASSIUM 3.8 3.5 - 5.1 MMOL/L CHLORIDE 105 98 - 107 MMOL/L CARBON DIOXIDE (CO2) 24 22 - 30 MMOL/L ALBUMIN 3.1 (L) 3.5 - 5.0 G/dl CALCIUM 8.8 8.4 - 10.2 MG/DL PHOSPHORUS 3.0 2.5 - 4.5 MG/DL ESTIMATED GFR, NON AMER 50 ml/min/1.73sq.m ESTIMATED GFR, >60 ml/min/1.73sq.m GFR COMMENT Average GFR for 70+ years old = 75. C REACTIVE PROTEIN Result Value Ref Range C-REACTIVE PROTEIN <5.0 0 - 10.0 MG/L SEDIMENTATION RATE, AUTOMATED Result Value Ref Range SEDIMENTATION RATE AUTOMATED 6 0 - 20 MM/HR HEPATIC FUNCTION PANEL Result Value Ref Range ALBUMIN 3.1 (L) 3.5 - 5.0 G/DL BILIRUBIN, TOTAL 0.8 0.2 - 1.2 MG/DL ALKALINE PHOSPHATASE 40 38 - 126 IU/L AST 22 15 - 41 IU/L BILIRUBIN, DIRECT 0.1 0.0 - 0.2 MG/DL PROTEIN, TOTAL 5.5 (L) 6.3 - 8.2 GM/DL ALT 27 17 - 63 IU/L GLUCOSE (POC DEVICE) Result Value Ref Range GLUCOSE, POINT OF CARE 125 (H) 70 - 100 MG/DL Surgical Lead 205,953 [facility] Result Value Ref Range Legionella Urinary Antigen, serogroup 1 NEGATIVE NEGATIVE STREP PNEUMONIAE ANTIGEN, URINE Result Value Ref Range STREP PNEUMONIAE ANTIGEN, URINE NEGATIVE NEGATIVE URINALYSIS, MACRO Result Value Ref Range COLOR, URINE YELLOW YELLOW APPEARANCE, URINE CLEAR CLEAR SPECIFIC GRAVITY, URINE 1.020 1.010 - 1.025 PH URINE 6.0 5.0 - 7.0 PROTEIN, URINE TRACE (A) NEGATIVE mg/dl GLUCOSE, URINE NEGATIVE NEGATIVE mg/dl KETONES, URINE NEGATIVE NEGATIVE mg/dl BILIRUBIN, URINE NEGATIVE NEGATIVE BLOOD, URINE DIPSTICK NEGATIVE NEGATIVE NITRITES, URINE NEGATIVE NEGATIVE UROBILINOGEN, URINE 0.2 0.2 - 1.0 E.U./dL LEUKOCYTE ESTERASE, URINE NEGATIVE NEGATIVE URINE MICROSCOPIC Result Value Ref Range WBC, URINE NEGATIVE NEGATIVE /HPF RBC, URINE NEGATIVE NEGATIVE /HPF Epithelial Cells UA 1 TO 5 /HPF Mucus NEGATIVE NEGATIVE BACTERIA, URINE NEGATIVE NEGATIVE CRYSTALS, URINE NONE NONE CASTS, URINE RARE (A) NONE /LPF COMMENT, URINE PHYSICIAN REQUESTED CULTURE HEENT: NC/AT, PERRLA, EOMI, fundi benign, external ears normal, OP normal. Neck: No LAD/thyromegaly. No JVD/bruit. Lungs: Clear to auscultation bilaterally. No wheezes, rales, ronchi. Heart: RRR. No S3/S4. Abdomen: Soft, NT/ND, normal bowel sounds, no HSM, no bruits. Extremities: No clubbing, cyanosis, edema. Normal pulses. Neurologic: CN II-XII intact. Strength/DTR's/sensation symmetric. Cerebellar function normal. Skin: No rash or suspicious lesions. Musculoskeletal: No edema, redness, warmth, deformities. Psychiatric: Alert and oriented. Affect and mood normal. Jose Ovalles MD 02/26/2021 documented in this encounter [facility] 02-26-2021 Hospital Discharg e instructions Sharri Gandhi RN - 02/26/2021 11:11 AM EDT Resume home activity as tolerated. Sharri Gandhi RN - 02/26/2021 11:11 AM EDT Resume home diet as tolerated. Sharri Gandhi RN - 02/26/2021 11:34 AM EDT Return or worsening of symptoms. In the event of an emergency, call 911 or go to the nearest ER. The following attachments cannot be sent through Care Everywhere.COPD (Armenian)azithromycin (oral/injection) (Armenian)prednisone (Armenian)documented in this encounter [facility] 02-26-2021 History and physical note [facility] History and Physical Examination 02/26/21 10:54 AM Chief Complaint: Chief Complaint Patient presents with Shortness of Breath Cough Abdominal Pain History of Present Illness: Patient is a 76 y.o. male presents to [facility] for evaluation of shortness of breath and abdominal pain. The patient was complaining of epigastric pain has been continuous for the last 4 days. Patient also reports he has been having increased shortness of breath and decreased by mouth intake. Patient presented to the emergency department at [facility]. Patient is currently taking Levaquin and prednisone for COPD exacerbation. He recently presented to the emergency department multiple times for dehydration and COPD exacerbations. Patient did report nausea and vomiting but no diarrhea. In the emergency department basic laboratory values were obtained. Urinalysis was negative, sodium 138, potassium 3.8, chloride 105, CO2 24, BUN 32, creatinine 1.46, calcium 8.8, hemoglobin 10.1. CT chest was ordered and showed severe emphysema with bullous changes worse in the lower lobes. Patient has stable noncalcified triangular-shaped right lower lobe pulmonary nodule unchanged from previous. Patient has CT abdomen and pelvis done and showed suboptimal examination of soft tissue structures and bowel without IV or oral contrast. Aorta iliac stent graft for treatment of abdominal aortic aneurysm with maximal size of the abdominal aorta 2.8 x 2.6 cm similar to previous study. Patient was admitted to the hospitalist service, Dr. Ovalles for COPD exacerbation and dehydration. On my evaluation the patient states he feels significantly better. He is on his baseline oxygen at 2 L nasal cannula. He states that he feels comfortable going home at this time. He denies chest pain or shortness of breath other than normal. Objective: Patient Active Problem List Diagnosis Date Noted COPD with acute exacerbation 02/25/2021 Cigarette nicotine dependence with nicotine-induced disorder 12/04/2020 COPD (chronic obstructive pulmonary disease) 12/04/2020 Centrilobular emphysema 12/04/2020 Chronic respiratory failure with hypoxia, on home oxygen therapy 12/04/2020 ROMEO (obstructive sleep apnea) 12/04/2020 Acute cystitis without hematuria 12/01/2020 Cigarette smoker 12/01/2020 OSCAR (acute kidney injury) 12/01/2020 Hx of cardiac pacemaker 12/01/2020 Pulmonary nodules 12/01/2020 Chest pain 11/30/2020 Essential hypertension 07/13/2019 Chronic obstructive pulmonary disease with acute exacerbation 07/13/2019 Mixed hyperlipidemia 07/13/2019 Past Medical History: Diagnosis Date COPD (chronic obstructive pulmonary disease) Emphysema lung Hypertension Lung disease Pacemaker Seizure 06/06/2020 Witnessed Past Surgical History: Procedure Laterality Date AAA REPAIR 01/31/2016 REMOVAL CATARACT (PEM) Bilateral 2012 PACEMAKER PLACEMENT 2002 battery change 2012 CORONARY STENT PLACEMENT 1996 BACK SURGERY N/A [id number] HEART CATHETERIZATION RELEASE CARPAL TUNNEL Right Social History Tobacco Use Smoking status: Current Every Day Smoker Packs/day: 0.25 Smokeless tobacco: Never Used Substance Use Topics Alcohol use: No Family History Problem Relation Age of Onset Dysrhythmia Mother Dysrhythmia Brother Myocardial Infarction Brother Medications Prior to Admission Medication Sig Dispense Refill Last Dose albuterol (2.5 MG/3ML) 0.083% inhalation solution Take 3 mL by nebulization every 6 hours as needed. 20 vial 3 Past Week at Unknown time albuterol 108 (90 Base) MCG/ACT Aero Soln inhaler Inhale 1-2 puffs every 6 hours as needed for Shortness of Breath or Wheezing. 1 Inhaler 2 Past Week at Unknown time Aspirin (ECOTRIN LOW STRENGTH) [address] tablet Take 1 tablet by mouth daily. 90 tablet 3 Past Week at Unknown time atorvastatin 10 MG tablet Take 1 tablet by mouth daily. 90 tablet 1 Past Week at Unknown time budesonide-formoterol (Symbicort) 160-4.5 mcg/puff Aerosol inhaler Inhale 2 puffs every 12 hours. 10.2 g 3 Past Week at Unknown time DISABILITY PLACARD Disability placard end date 08/29/2020 1 Each 0 Past Week at Unknown time DISABILITY PLACARD Disability placard end date 09/19/2025 1 Each 0 Past Week at Unknown time fluticasone 50 MCG/ACT Suspension nasal spray 2 sprays by Nasal route daily. 9.9 mL 0 Past Week at Unknown time folic acid 1 MG tablet Take 1 tablet by mouth daily. 90 tablet 1 Past Week at Unknown time ipratropium-albuterol 0.5-2.5 (3) MG/3ML nebulizer solution Take 3 mL by nebulization 4 times daily. 30 Each 0 Past Week at Unknown time levoFLOXacin 750 MG tablet Take 1 tablet by mouth daily for 10 days. 10 tablet 0 Past Week at Unknown time metoprolol 25 MG tab regular release Take 1 tablet by mouth 2 times daily. 180 tablet 3 Past Week at Unknown time midodrine 5 MG tablet Take 1 tablet by mouth 3 times daily (space doses 6 hours apart). 90 tablet 3 Past Week at Unknown time nitroGLYCERIN 0.[address] 1 tablet under tongue every 5 minutes as needed for Chest pain. max = 3 doses. If CP persists after 3rd dose, call 911 25 tablet 0 Past Week at Unknown time oxygen gas Patient discharged from [facility] on 4 Liters of Oxygen via nc due to desaturation. Please provide oxygen for patient due to [facility] ED discharge instructions. This order certifies that this patient is under my care and that I, or a Nurse Practitioner or Physician's Grinder Gear had a [id number] Encounter with them. Based upon those findings, the equipment/supplies listed above are medically necessary. 1 Device 0 Past Week at Unknown time predniSONE 20 MG tablet Take 1 tablet by mouth daily. 10 tablet 0 Past Week at Unknown time roflumilast (Daliresp) 500 MCG tablet Take 1 tablet by mouth daily. 30 tablet 5 Past Week at Unknown time tiotropium (Spiriva Respimat) 2.5 MCG/ACT Aero Soln inhaler Inhale 2 puffs daily. 4 g 5 Past Week at Unknown time Allergies Allergen Reactions Penicillins Hives and Swelling Tamsulosin Other reaction(s): Other (See Comments) Makes him blackout Clopidogrel Itching Review of Systems: Ten systems reviewed and found to be negative unless otherwise stated in the history and present illness. PHYSICAL EXAM: Patient Vitals for the past 8 hrs: BP Temp Temp src Pulse Resp SpO2 Weight 02/26/21 0728 160/78 97.8 F (36.6 C) Oral 63 16 97 % 02/26/21 0600 98 % 02/26/21 0441 150/83 97.5 F (36.4 C) Oral 64 16 97 % 67.3 kg (148 lb 4.8 oz) General: Patient resting comfortably. Awake. No acute distress. HEENT: Normalcephalic, atraumatic. Pupils equal, round, reactive, to light and accomodation B/L. Bilateral nares patent without obvious drainage. Oral mucosa moist, pink, intact without ulcers or lesions. Neck: No JVD, no thyromegaly, no anterior or posterior lymphadenopathy. Cardiovascular: Regular rate and rhythm, without murmurs, rubs, or gallops. Respiratory: Bilateral Upper and Lower Lobes anterior and posteriorly with wheezes. Abdomen: Soft, rounded, non-tender. Bowel sounds present x4 quadrants. No rebound. No organomegaly or masses noted upon deep palpation. Extremities: No edema, clubbing or cyanosis, pulses palpable 2+ distally. Skin: Warm, Dry, Intact. No obvious rashes or lesions noted. Neuro: Patient awake, alert, orientedx3. Cranial nerves 2-12 grossly intact upon seated examination. No focal defiects noted. M/S: No joint errythema or pain noted; no clubbing Diagnostics: Lab Results Component Value Date WBC 4.1 02/26/2021 HGB 10.1 (L) 02/26/2021 HCT 29.6 (L) 02/26/2021 PLATELET 213 02/26/2021 MCV 88.5 02/26/2021 @LASTMAGNESIUM(1D,2)@ Lab Results Component Value Date INR 1.08 02/25/2021 INR 0.98 11/19/2020 INR 0.94 06/30/2020 PT 14.3 02/25/2021 PT 13.2 11/19/2020 PT 12.3 06/30/2020 Lab Results Component Value Date CREATSERUM 1.46 (H) 02/26/2021 BUN 32 (H) 02/26/2021 SODIUM 138 02/26/2021 POTASSIUM 3.8 02/26/2021 CHLORIDE 105 02/26/2021 CO2 24 02/26/2021 Lab Results Component Value Date SPGRVTYUR 1.020 02/25/2021 GLUCOSEURINE NEGATIVE 02/25/2021 BILIRUBINURI NEGATIVE 02/25/2021 KETONESURINE NEGATIVE 02/25/2021 NITRITESURIN NEGATIVE 02/25/2021 LEUKOCESTUR NEGATIVE 02/25/2021 WBCURINE NEGATIVE 02/25/2021 RBCURINE NEGATIVE 02/25/2021 BACTERIAURIN NEGATIVE 02/25/2021 Full Code Impression and Plan: Principal Problem: COPD with acute exacerbation - currently on baseline oxygen at 2 L nasal cannula. Zithromax and Rocephin. Solu-Medrol. Currently speaking in complete sentences. Active Problems: Essential hypertension - continue home medications. PRN labetalol. OSCAR (acute kidney injury) - discontinue nephrotoxic medications. Monitor. Just slightly above baseline. Improving and CREAT 1.46 today. Hx of cardiac pacemaker Cigarette nicotine dependence with nicotine-induced disorder - encourage cessation. Reports significantly decreased cigarette usage. Centrilobular emphysema - chronic. On baseline oxygen at 2 L nasal cannula. Chronic respiratory failure with hypoxia, on home oxygen therapy - on baseline oxygen at 2 L nasal cannula. ROMEO (obstructive sleep apnea) - nocturnal CPAP. PT OT SS for dc planning GI/DVT prophylaxis with protonix and lovenox Chris Montiel APRN-ROLL COVERER Completing history and physical for Dr. Ovalles 10:54 AM Please note Portions of this note utilized ED01 dictation software, please excuse any typographical or grammatical errors Associated attestation - Jose Ovalles MD - 02/26/2021 12:54 PM EDT Patient seen and examined. All testing reviewed. Discussed with ROLL COVERER and agree with A/P. Worsening symptoms despite Levaquin and steroids. CT's noted. Chronic changes only. Cr 1.5. CBC noted. IV steroids, Rocephin, Zithromax and nebs. IVF and follow labs. Objective: Blood pressure 127/64, pulse 67, temperature 97.9 F (36.6 C), temperature source Oral, resp. rate 16, height 1.88 m (6' 2 ), weight 67.3 kg (148 lb 4.8 oz), SpO2 99 %. Results for orders placed or performed during the hospital encounter of 02/25/21 RESPIRATORY CULTURE Specimen: SPUTUM Result Value Ref Range SPECIMEN DESCRIPTION SPUTUM GRAM STAIN SPECIMEN IS OF UNACCEPTABLE QUALITY, PLEASE RESUBMIT. RESULT-CULT PENDING REPORT STATUS PENDING NOVEL CORONAVIRUS LAB 1 - NASOPHARYNGEAL Specimen: NASOPHARYNGEAL; Fluid/Swab Result Value Ref Range SARS COV 2 RNA, QL REAL TIME RT PCR NOT DETECTED NOT DETECTED NARRATIVE -1 This test was performed using isothermal CHADD and has been approved as Emergency Use Authorization (EUA) for the qualitative detection [id number] nucleic acid. TROPONIN I, HIGH SENSITIVITY Result Value Ref Range TROPONIN I, HIGH SENSITIVITY 16 0 - 20 pg/mL CHEM 7 (LYTES,BUN,CREA,GLUC) Result Value Ref Range GLUCOSE 133 (H) 70 - 100 MG/DL BUN 32 (H) 7.0 - 20.0 MG/DL CREATININE SERUM 1.50 (H) 0.6 - 1.2 MG/DL SODIUM 138 136 - 145 MMOL/L POTASSIUM 3.3 (L) 3.5 - 5.1 MMOL/L CHLORIDE 102 98 - 107 MMOL/L CARBON DIOXIDE (CO2) 25 22 - 30 MMOL/L ESTIMATED GFR, NON AMER 48 ml/min/1.73sq.m ESTIMATED GFR, 59 ml/min/1.73sq.m GFR COMMENT Average GFR for 70+ years old = 75. HEPATIC FUNCTION PANEL Result Value Ref Range ALBUMIN 3.9 2.9 - 5.3 G/DL BILIRUBIN, TOTAL 1.2 0.2 - 1.2 MG/DL ALKALINE PHOSPHATASE 48 38 - 126 IU/L AST 31 15 - 41 IU/L BILIRUBIN, DIRECT 0.1 0.0 - 0.2 MG/DL PROTEIN, TOTAL 6.5 6.3 - 8.2 GM/DL ALT 37 17 - 63 IU/L LIPASE Result Value Ref Range LIPASE 43 23 - 300 U/L B-TYPE NATRIURETIC PEPTIDE (BRAIN) Result Value Ref Range BRAIN NATRIURETIC PEPTIDE 128 (H) 0 - 100 pg/mL CBC, EDIF, PLATELET Result Value Ref Range WBC (WHITE BLOOD COUNT) 9.3 3.6 - 11.0 10*3/uL RBC 4.31 4.0 - 6.1 10*6/uL HEMOGLOBIN (HGB) 13.1 (L) 14.0 - 18.0 G/DL HEMATOCRIT (HCT) 37.7 (L) 42.0 - 52.0 % MEAN CELL VOLUME 87.4 80.0 - 100.0 FL Mean Cell HGB 30.3 26.0 - 35.0 PG MEAN CELL HGB CONCENTRATION 34.7 27.0 - 37.0 G/DL RBC DISTRIBUTION 15.9 (H) 11.5 - 14.5 % PLATELET COUNT 370 130 - 400 10*3/uL MEAN PLATELET VOLUME 9.0 7.4 - 11.0 FL DIFFERENTIAL TYPE AUTO DIFF % NEUTROPHILS 79.5 (H) 37.0 - 75.0 % LYMPHOCYTE 11.6 (L) 20.0 - 55.0 % MONOCYTE % 8.5 0.0 - 10.0 % EOSINOPHIL % 0.3 0.0 - 11.0 % BASOPHIL % 0.1 0.0 - 2.0 % Absolute Neutrophil Count 7.4 (H) 1 - 6 10*3/uL LYMPHOCYTES, ABSOLUTE 1.10 (L) 1.2 - 3.4 10*3/uL MONOCYTES, ABSOLUTE 0.8 (H) 0.0 - 0.7 10*3/uL ABSOLUTE EOSINOPHIL COUNT 0.00 0 - 0 10*3/uL ABSOLUTE BASOPHIL COUNT 0.0 0 - 0 10*3/uL C REACTIVE PROTEIN Result Value Ref Range C-REACTIVE PROTEIN <7.9 0 - 10.0 MG/L SEDIMENTATION RATE, AUTOMATED Result Value Ref Range SEDIMENTATION RATE AUTOMATED 10 0 - 20 MM/HR PROTIME-INR Result Value Ref Range PT 14.3 11.8 - 14.4 SEC INR 1.08 0.85 - 1.10 CBC, EDIF, PLATELET Result Value Ref Range WBC (WHITE BLOOD COUNT) 4.1 3.6 - 11.0 10*3/uL RBC 3.35 (L) 4.0 - 6.1 10*6/uL HEMOGLOBIN (HGB) 10.1 (L) 14.0 - 18.0 G/DL HEMATOCRIT (HCT) 29.6 (L) 42.0 - 52.0 % MEAN CELL VOLUME 88.5 80.0 - 100.0 FL Mean Cell HGB 30.1 26.0 - 35.0 PG MEAN CELL HGB CONCENTRATION 34.0 27.0 - 37.0 G/DL RBC DISTRIBUTION 15.7 (H) 11.5 - 14.5 % PLATELET COUNT 213 130 - 400 10*3/uL MEAN PLATELET VOLUME 8.7 7.4 - 11.0 FL DIFFERENTIAL TYPE AUTO DIFF % NEUTROPHILS 93.9 (H) 37.0 - 75.0 % LYMPHOCYTE 3.6 (L) 20.0 - 55.0 % MONOCYTE % 2.5 0.0 - 10.0 % EOSINOPHIL % 0.0 0.0 - 11.0 % BASOPHIL % 0.0 0.0 - 2.0 % Absolute Neutrophil Count 3.9 1 - 6 10*3/uL LYMPHOCYTES, ABSOLUTE 0.10 (L) 1.2 - 3.4 10*3/uL MONOCYTES, ABSOLUTE 0.1 0.0 - 0.7 10*3/uL ABSOLUTE EOSINOPHIL COUNT 0.00 0 - 0 10*3/uL ABSOLUTE BASOPHIL COUNT 0.0 0 - 0 10*3/uL MAGNESIUM Result Value Ref Range MAGNESIUM 2.1 1.6 - 2.3 MG/DL RENAL FUNCTION PANEL Result Value Ref Range GLUCOSE 194 (H) 70 - 100 MG/DL BUN 32 (H) 7.0 - 20.0 MG/DL CREATININE SERUM 1.46 (H) 0.6 - 1.2 MG/DL SODIUM 138 136 - 145 MMOL/L POTASSIUM 3.8 3.5 - 5.1 MMOL/L CHLORIDE 105 98 - 107 MMOL/L CARBON DIOXIDE (CO2) 24 22 - 30 MMOL/L ALBUMIN 3.1 (L) 3.5 - 5.0 G/dl CALCIUM 8.8 8.4 - 10.2 MG/DL PHOSPHORUS 3.0 2.5 - 4.5 MG/DL ESTIMATED GFR, NON AMER 50 ml/min/1.73sq.m ESTIMATED GFR, >60 ml/min/1.73sq.m GFR COMMENT Average GFR for 70+ years old = 75. C REACTIVE PROTEIN Result Value Ref Range C-REACTIVE PROTEIN <5.0 0 - 10.0 MG/L SEDIMENTATION RATE, AUTOMATED Result Value Ref Range SEDIMENTATION RATE AUTOMATED 6 0 - 20 MM/HR HEPATIC FUNCTION PANEL Result Value Ref Range ALBUMIN 3.1 (L) 3.5 - 5.0 G/DL BILIRUBIN, TOTAL 0.8 0.2 - 1.2 MG/DL ALKALINE PHOSPHATASE 40 38 - 126 IU/L AST 22 15 - 41 IU/L BILIRUBIN, DIRECT 0.1 0.0 - 0.2 MG/DL PROTEIN, TOTAL 5.5 (L) 6.3 - 8.2 GM/DL ALT 27 17 - 63 IU/L GLUCOSE (POC DEVICE) Result Value Ref Range GLUCOSE, POINT OF CARE 125 (H) 70 - 100 MG/DL Surgical Lead 205,953 [facility] Result Value Ref Range Legionella Urinary Antigen, serogroup 1 NEGATIVE NEGATIVE STREP PNEUMONIAE ANTIGEN, URINE Result Value Ref Range STREP PNEUMONIAE ANTIGEN, URINE NEGATIVE NEGATIVE URINALYSIS, MACRO Result Value Ref Range COLOR, URINE YELLOW YELLOW APPEARANCE, URINE CLEAR CLEAR SPECIFIC GRAVITY, URINE 1.020 1.010 - 1.025 PH URINE 6.0 5.0 - 7.0 PROTEIN, URINE TRACE (A) NEGATIVE mg/dl GLUCOSE, URINE NEGATIVE NEGATIVE mg/dl KETONES, URINE NEGATIVE NEGATIVE mg/dl BILIRUBIN, URINE NEGATIVE NEGATIVE BLOOD, URINE DIPSTICK NEGATIVE NEGATIVE NITRITES, URINE NEGATIVE NEGATIVE UROBILINOGEN, URINE 0.2 0.2 - 1.0 E.U./dL LEUKOCYTE ESTERASE, URINE NEGATIVE NEGATIVE URINE MICROSCOPIC Result Value Ref Range WBC, URINE NEGATIVE NEGATIVE /HPF RBC, URINE NEGATIVE NEGATIVE /HPF Epithelial Cells UA 1 TO 5 /HPF Mucus NEGATIVE NEGATIVE BACTERIA, URINE NEGATIVE NEGATIVE CRYSTALS, URINE NONE NONE CASTS, URINE RARE (A) NONE /LPF COMMENT, URINE PHYSICIAN REQUESTED CULTURE HEENT: NC/AT, PERRLA, EOMI, fundi benign, external ears normal, OP normal. Neck: No LAD/thyromegaly. No JVD/bruit. Lungs: Diffuse exp wheeze. Heart: RRR. No S3/S4. Abdomen: Soft, NT/ND, normal bowel sounds, no HSM, no bruits. Extremities: No clubbing, cyanosis, edema. Normal pulses. Neurologic: CN II-XII intact. Strength/DTR's/sensation symmetric. Cerebellar function normal. Skin: No rash or suspicious lesions. Musculoskeletal: No edema, redness, warmth, deformities. Psychiatric: Alert and oriented. Affect and mood normal. Jose Ovalles MD 02/26/2021 documented in this encounter [facility] 02-25-2021 Emergency department Note [facility] taking to floor at this time Menu given to pt at this time Patient assigned to room #[id number]. Meal tray ordered for patient at this time. PCC notified of admission at this time, waiting on a room assignment. Dr. Ovalles called back at this time. Called Dr. Ovalles at this time, he will call back when he is available. Emergency Department Report [facility] EMERGENCY DEPARTMENT Service Date:.02/25/21 PCP: Charleen Mendoza Chief Complaint: Chief Complaint Patient presents with Shortness of Breath Cough Abdominal Pain HPI Isaias Breaux is a 76 y.o. male presents to the ED today due to shortness of breath and abdominal pain. The patient's complaining of epigastric pain is continuous for the last 4 days. He is also having increased shortness of breath and decreased by mouth intake. Patient said several visits to the ER recently for D hydration as well as COPD exacerbations. He is currently on Levaquin and prednisone. Patient denies diarrhea. Review of Systems: Review of Systems Constitutional: Negative for activity change, appetite change, fatigue and fever. HENT: Negative for ear pain, hearing loss, rhinorrhea, sneezing and trouble swallowing. Eyes: Negative for photophobia, pain, redness and visual disturbance. Respiratory: Positive for chest tightness and shortness of breath. Negative for wheezing. Cardiovascular: Negative for chest pain, palpitations and leg swelling. Gastrointestinal: Positive for abdominal pain, nausea and vomiting. Negative for anal bleeding and diarrhea. Endocrine: Negative for polydipsia, polyphagia and polyuria. Genitourinary: Negative for difficulty urinating, flank pain, hematuria and urgency. Musculoskeletal: Negative for back pain, joint swelling, neck pain and neck stiffness. Skin: Negative for color change, pallor and rash. Allergic/Immunologic: Negative for environmental allergies and immunocompromised state. Neurological: Negative for dizziness, seizures, syncope, weakness, numbness and headaches. Hematological: Negative for adenopathy. Does not bruise/bleed easily. Psychiatric/Behavioral: Negative for behavioral problems, confusion, dysphoric mood, hallucinations and self-injury. The patient is not nervous/anxious. Past Medical History: Past Medical History: Diagnosis Date COPD (chronic obstructive pulmonary disease) Emphysema lung Hypertension Lung disease Pacemaker Seizure 06/06/2020 Witnessed Past Surgical History: Past Surgical History: Procedure Laterality Date AAA REPAIR 01/31/2016 REMOVAL CATARACT (PEM) Bilateral 2012 PACEMAKER PLACEMENT 2002 battery change 2012 CORONARY STENT PLACEMENT 1996 BACK SURGERY N/A [id number] HEART CATHETERIZATION RELEASE CARPAL TUNNEL Right Allergies: Allergies Allergen Reactions Penicillins Hives and Swelling Tamsulosin Other reaction(s): Other (See Comments) Makes him blackout Clopidogrel Itching Medications: Patient's Medications New Prescriptions No medications on file Previous Medications ALBUTEROL (2.5 MG/3ML) 0.083% INHALATION SOLUTION Take 3 mL by nebulization every 6 hours as needed. ALBUTEROL 108 (90 BASE) MCG/ACT AERO SOLN INHALER Inhale 1-2 puffs every 6 hours as needed for Shortness of Breath or Wheezing. ASPIRIN (ECOTRIN LOW STRENGTH) [address] TABLET Take 1 tablet by mouth daily. ATORVASTATIN 10 MG TABLET Take 1 tablet by mouth daily. BUDESONIDE-FORMOTEROL (SYMBICORT) 160-4.5 MCG/PUFF AEROSOL INHALER Inhale 2 puffs every 12 hours. DISABILITY PLACARD Disability placard end date 08/29/2020 DISABILITY PLACARD Disability placard end date 09/19/2025 FLUTICASONE 50 MCG/ACT SUSPENSION NASAL SPRAY 2 sprays by Nasal route daily. FOLIC ACID 1 MG TABLET Take 1 tablet by mouth daily. IPRATROPIUM-ALBUTEROL 0.5-2.5 (3) MG/3ML NEBULIZER SOLUTION Take 3 mL by nebulization 4 times daily. LEVOFLOXACIN 750 MG TABLET Take 1 tablet by mouth daily for 10 days. METOPROLOL 25 MG TAB REGULAR RELEASE Take 1 tablet by mouth 2 times daily. MIDODRINE 5 MG TABLET Take 1 tablet by mouth 3 times daily (space doses 6 hours apart). NITROGLYCERIN 0.[address] 1 tablet under tongue every 5 minutes as needed for Chest pain. max = 3 doses. If CP persists after 3rd dose, call 911 OXYGEN GAS Patient discharged from [facility] on 4 Liters of Oxygen via nc due to desaturation. Please provide oxygen for patient due to [facility] ED discharge instructions. This order certifies that this patient is under my care and that I, or a Nurse Practitioner or Physician's Grinder Gear had a [id number] Encounter with them. Based upon those findings, the equipment/supplies listed above are medically necessary. PREDNISONE 20 MG TABLET Take 1 tablet by mouth daily. ROFLUMILAST (DALIRESP) 500 MCG TABLET Take 1 tablet by mouth daily. TIOTROPIUM (SPIRIVA RESPIMAT) 2.5 MCG/ACT AERO SOLN INHALER Inhale 2 puffs daily. Modified Medications No medications on file Discontinued Medications No medications on file Family History: Family History Problem Relation Age of Onset Dysrhythmia Mother Dysrhythmia Brother Myocardial Infarction Brother Social History: Social History Socioeconomic History Marital status: Single Spouse name: Not on file Number of children: Not on file Years of education: Not on file Highest education level: Not on file Occupational History Not on file Tobacco Use Smoking status: Current Every Day Smoker Packs/day: 0.25 Smokeless tobacco: Never Used Vaping Use Vaping Use: Never used Substance and Sexual Activity Alcohol use: No Drug use: No Sexual activity: Not on file Other Topics Concern Service Not Asked Blood Transfusions Not Asked Caffeine Concern Not Asked Occupational Exposure Not Asked Hobby Hazards Not Asked Sleep Concern Not Asked Stress Concern Not Asked Weight Concern Not Asked Special Diet Not Asked Back Care Not Asked Exercise Not Asked Bike Helmet Not Asked Seat Belt Not Asked Domestic Violence No Social History Narrative Not on file Social Determinants of Health Financial Resource Strain: Difficulty of Paying Living Expenses: Food Insecurity: Worried About Running Out of Food in the Last Year: Ran Out of Food in the Last Year: Transportation Needs: Lack of Transportation (Medical): Lack of Transportation (Non-Medical): Physical Activity: Days of Exercise per Week: Minutes of Exercise per Session: Stress: Feeling of Stress : Social Connections: Frequency of Communication with Friends and Family: Frequency of Social Gatherings with Friends and Family: Attends Hindu Services: Active Member of Clubs or Organizations: Attends Club or Organization Meetings: Marital Status: Intimate Partner Violence: Fear of Current or Ex-Partner: Emotionally Abused: Physically Abused: Sexually Abused: Physical Exam: Physical Exam Vitals and nursing note reviewed. Constitutional: General: He is not in acute distress. Appearance: He is well-developed. He is not diaphoretic. HENT: Head: Normocephalic and atraumatic. Nose: Nose normal. Mouth/Throat: Pharynx: No oropharyngeal exudate. Eyes: General: No scleral icterus. Right eye: No discharge. Left eye: No discharge. Conjunctiva/sclera: Conjunctivae normal. Pupils: Pupils are equal, round, and reactive to light. Neck: Thyroid: No thyromegaly. Vascular: No JVD. Cardiovascular: Rate and Rhythm: Normal rate and regular rhythm. Heart sounds: Normal heart sounds. No murmur heard. No friction rub. No gallop. Pulmonary: Effort: Pulmonary effort is normal. No respiratory distress. Breath sounds: Decreased breath sounds and wheezing present. No rales. Chest: Chest wall: No tenderness. Abdominal: General: Bowel sounds are normal. There is no distension. Palpations: Abdomen is soft. There is no mass. Tenderness: There is no abdominal tenderness. There is no guarding or rebound. Hernia: No hernia is present. Musculoskeletal: General: No tenderness or deformity. Normal range of motion. Cervical back: Normal range of motion and neck supple. Skin: General: Skin is warm and dry. Capillary Refill: Capillary refill takes less than 2 seconds. Coloration: Skin is not pale. Findings: No erythema or rash. Neurological: General: No focal deficit present. Mental Status: He is alert and oriented to person, place, and time. Cranial Nerves: No cranial nerve deficit. Motor: No abnormal muscle tone. Coordination: Coordination normal. Psychiatric: Behavior: Behavior normal. Thought Content: Thought content normal. Judgment: Judgment normal. Vital Signs During ED Visit Patient Vitals for the past 24 hrs: BP Temp Temp src Pulse Resp SpO2 Weight 02/25/21 1134 151/77 69 22 98 % 02/25/21 1133 71 20 97 % 02/25/21 1022 125/75 77 20 94 % 02/25/21 0900 62.4 kg (137 lb 8 oz) 02/25/21 0859 109/73 97.9 F (36.6 C) Oral 107 (!) 26 94 % Orders/Results: Orders Placed This Encounter CT PE STUDY CT ABDOMEN/PELVIS WITHOUT CONTRAST Troponin I, High sensitivity CHEM 7 (LYTES,BUN,CREA,GLUC) HEPATIC FUNCTION PANEL LIPASE B-TYPE NATRIURETIC PEPTIDE (BRAIN) CBC, EDIF, PLATELET ECG ipratropium-albuterol (DUONEB) 0.5-2.5 (3) MG/3ML nebulizer solution 3 mL ondansetron 4mg/2ml (ZOFRAN) injection 4 mg sodium chloride 0.9% IV solution 1,000 mL iodixanol (VISIPAQUE) 320 MG/ML injection 75 mL sodium chloride 0.9% IV solution 75 mL sodium chloride 0.9% IV solution 500 mL methylPREDNISolone sodium succinate (SOLU-MEDROL) injection 125 mg Results for orders placed or performed during the hospital encounter of 02/25/21 TROPONIN I, HIGH SENSITIVITY Result Value Ref Range TROPONIN I, HIGH SENSITIVITY 16 0 - 20 pg/mL CHEM 7 (LYTES,BUN,CREA,GLUC) Result Value Ref Range GLUCOSE 133 (H) 70 - 100 MG/DL BUN 32 (H) 7.0 - 20.0 MG/DL CREATININE SERUM 1.50 (H) 0.6 - 1.2 MG/DL SODIUM 138 136 - 145 MMOL/L POTASSIUM 3.3 (L) 3.5 - 5.1 MMOL/L CHLORIDE 102 98 - 107 MMOL/L CARBON DIOXIDE (CO2) 25 22 - 30 MMOL/L ESTIMATED GFR, NON AMER 48 ml/min/1.73sq.m ESTIMATED GFR, 59 ml/min/1.73sq.m GFR COMMENT Average GFR for 70+ years old = 75. HEPATIC FUNCTION PANEL Result Value Ref Range ALBUMIN 3.9 2.9 - 5.3 G/DL BILIRUBIN, TOTAL 1.2 0.2 - 1.2 MG/DL ALKALINE PHOSPHATASE 48 38 - 126 IU/L AST 31 15 - 41 IU/L BILIRUBIN, DIRECT 0.1 0.0 - 0.2 MG/DL PROTEIN, TOTAL 6.5 6.3 - 8.2 GM/DL ALT 37 17 - 63 IU/L LIPASE Result Value Ref Range LIPASE 43 23 - 300 U/L B-TYPE NATRIURETIC PEPTIDE (BRAIN) Result Value Ref Range BRAIN NATRIURETIC PEPTIDE 128 (H) 0 - 100 pg/mL CBC, EDIF, PLATELET Result Value Ref Range WBC (WHITE BLOOD COUNT) 9.3 3.6 - 11.0 10*3/uL RBC 4.31 4.0 - 6.1 10*6/uL HEMOGLOBIN (HGB) 13.1 (L) 14.0 - 18.0 G/DL HEMATOCRIT (HCT) 37.7 (L) 42.0 - 52.0 % MEAN CELL VOLUME 87.4 80.0 - 100.0 FL Mean Cell HGB 30.3 26.0 - 35.0 PG MEAN CELL HGB CONCENTRATION 34.7 27.0 - 37.0 G/DL RBC DISTRIBUTION 15.9 (H) 11.5 - 14.5 % PLATELET COUNT 370 130 - 400 10*3/uL MEAN PLATELET VOLUME 9.0 7.4 - 11.0 FL DIFFERENTIAL TYPE AUTO DIFF % NEUTROPHILS 79.5 (H) 37.0 - 75.0 % LYMPHOCYTE 11.6 (L) 20.0 - 55.0 % MONOCYTE % 8.5 0.0 - 10.0 % EOSINOPHIL % 0.3 0.0 - 11.0 % BASOPHIL % 0.1 0.0 - 2.0 % Absolute Neutrophil Count 7.4 (H) 1 - 6 10*3/uL LYMPHOCYTES, ABSOLUTE 1.10 (L) 1.2 - 3.4 10*3/uL MONOCYTES, ABSOLUTE 0.8 (H) 0.0 - 0.7 10*3/uL ABSOLUTE EOSINOPHIL COUNT 0.00 0 - 0 10*3/uL ABSOLUTE BASOPHIL COUNT 0.0 0 - 0 10*3/uL Radiographic Imaging CT PE STUDY Final Result IMPRESSION: CHEST: 1. Negative for pulmonary embolism. Recent CT pulmonary angiogram on 02/19/2021 was also negative for pulmonary embolism. 2. Thoracic aortic atherosclerosis and coronary artery calcifications without thoracic aortic aneurysm or dissection. Normal heart size with cardiac pacer. 3. Severe emphysema with bullous changes worse in both lower lobes, with chronic atelectasis or scarring in the right middle lobe that is unchanged from 09/30/2019. There is mild bibasilar atelectasis and secretions/mucous plugging in the proximal bronchioles of both lower lobes, without acute lung consolidation. 4. Stable 4 mm noncalcified triangular-shaped right lower lobe pulmonary nodule along the oblique fissure that is unchanged from 09/30/2019 consistent with a perifissural lymph node. Stable indeterminate 6 mm noncalcified right upper lobe pulmonary nodule, and 3 mm dense but not definitely calcified left upper lobe pulmonary nodule, both also unchanged from 09/30/2019. No new noncalcified pulmonary nodule. Recommend annual noncontrast low-dose chest CT for lung cancer screening. 5. Mild right hilar lymphadenopathy, unchanged from 12/01/2020. No new or progression of thoracic lymphadenopathy. 6. Sequela of old healed granulomatous infection. ABDOMEN AND PELVIS: 1. Suboptimal examination of soft tissue structures and bowel without intravenous and oral contrast. 2. Normal appendix and colonic diverticulosis. Negative for bowel obstruction or gross bowel inflammation. 3. No free fluid or free air. 4. Negative for renal obstruction or urinary calculus. 5. No gross inflammation of the gallbladder or pancreas. No radiopaque gallstones. 6. Aortobiiliac stent graft for treatment of abdominal aortic aneurysm. Maximum size of the abdominal aorta 2.8 x 2.6 cm, similar to 02/18/2020. 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 7. Additional incidental findings discussed above. CT ABDOMEN/PELVIS WITHOUT CONTRAST Final Result IMPRESSION: CHEST: 1. Negative for pulmonary embolism. Recent CT pulmonary angiogram on 02/19/2021 was also negative for pulmonary embolism. 2. Thoracic aortic atherosclerosis and coronary artery calcifications without thoracic aortic aneurysm or dissection. Normal heart size with cardiac pacer. 3. Severe emphysema with bullous changes worse in both lower lobes, with chronic atelectasis or scarring in the right middle lobe that is unchanged from 09/30/2019. There is mild bibasilar atelectasis and secretions/mucous plugging in the proximal bronchioles of both lower lobes, without acute lung consolidation. 4. Stable 4 mm noncalcified triangular-shaped right lower lobe pulmonary nodule along the oblique fissure that is unchanged from 09/30/2019 consistent with a perifissural lymph node. Stable indeterminate 6 mm noncalcified right upper lobe pulmonary nodule, and 3 mm dense but not definitely calcified left upper lobe pulmonary nodule, both also unchanged from 09/30/2019. No new noncalcified pulmonary nodule. Recommend annual noncontrast low-dose chest CT for lung cancer screening. 5. Mild right hilar lymphadenopathy, unchanged from 12/01/2020. No new or progression of thoracic lymphadenopathy. 6. Sequela of old healed granulomatous infection. ABDOMEN AND PELVIS: 1. Suboptimal examination of soft tissue structures and bowel without intravenous and oral contrast. 2. Normal appendix and colonic diverticulosis. Negative for bowel obstruction or gross bowel inflammation. 3. No free fluid or free air. 4. Negative for renal obstruction or urinary calculus. 5. No gross inflammation of the gallbladder or pancreas. No radiopaque gallstones. 6. Aortobiiliac stent graft for treatment of abdominal aortic aneurysm. Maximum size of the abdominal aorta 2.8 x 2.6 cm, similar to 02/18/2020. 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 7. Additional incidental findings discussed above. Moderate Sedation Procedure: No Procedures: Procedures EKG interpreted myself shows A. fib flutter with a ventricular rate of 108 right axis deviation there is some occasional ST depressions in the V3 through V6. No other apparent ectopy. ED Summary/MDM Patient was given a fluid bolus and breathing treatments and CT scans. DT scans showed severe COPD changes. There is some verbal bronchial thickening started for bronchitis. He has scattered nodules which appear to be chronic. The documented in the radiology report. His EKG shows no acute changes. His labs show that he is at his baseline with some mild renal insufficiency and hypokalemia. Patient was given an IV site Medrol bolus and Dr. Broussard agreed to place under observation for acute bronchitis and exacerbation of COPD. We will start him on Rocephin and Zithromax Clinical Impression: 1. Acute bronchitis with chronic obstructive pulmonary disease (COPD) No follow-ups on file. New Prescriptions No medications on file Discontinued Medications No medications on file An After Visit Summary was printed and given to the patient with above information. . . Aubrey Zurita MD 02/25/21 1135 Pt c/o shortness of breath and productive cough documented in this encounter [facility] 02-19-2021 Emergency department Note Corey Varma called and informed of patients discharge and that patient needs a ride home. Aware to call hospital when arrived and will bring patient out. Pt much more relaxed and calm, breathing easy and unlabored. Lungs diminshed in the bases with right posterior crackles in the upper lung. Pt aware of repeat lab work. Called [facility] regarding patient and receiving antibodies. ED staff states that patient was admitted to hospital and transfers to floor where I spoke with Simona DOVER who confirms that patient did receive antibodies yesterday. States she will fax over SEP. Dr. Wheeler aware. Family member Corey Varma calls in for patient update. Update provided at this time. States patient got something to fight the Covid at [facility] on Thursday that you can only get if you home. Dr. Wheeler made aware. Positive Covid result received from [facility] at this time. Patient again yelling and screaming help me I cant breath . Into room and encouraged patient to stop yelling and concentrate on his breathing. SPO2 increased from 87% to 96%. Pt states Can't you please just get me a fan or open the door a little bit? Again went over with the patient the he had a contagious virus that we do not want to spread not only to other patients but to staff as well. Pt again states that [facility] did not have the door closed when he was there just a curtain. Made aware the door will remained closed. Into medicate patient, pt yelling at arrival to room, SPO2 87% patient encouraged to stop yelling and breath in through nose and out mouth, when patient stops yelling SPO2 increases to 97%. Pt states take me back to [facility], they dont close me in like you do here. Pt. Made aware due to being Covid + he should have been in isolation at [facility] also and he will be in isolation where ever he is at. Turned on TV for patient to help occupy patient time and take mind off things. As walking out door patient states Can you keep the door open just a little? It feels so much better with the door open just a little. Again explained the reason for door being closed. Urinal provided at this time. Emergency Department Report [facility] EMERG[facility]Y [facility]PART[facility] Service Date:.02/19/21 PCP: Charleen Mendoza Chief Complaint: Chief Complaint Patient presents with Shortness of Breath HPI Isaias Breaux is a 76 y.o. male presents to the ED with chief complaint of shortness of breath. Patient was recently diagnosed with coated. He is an oxygen dependent COPD patient as well. He states he is been getting worse. He was recently seen at this hospital on the and at [facility] on Thursday. He states he is coughing and short of breath. He denies fever, syncope, chest pain. Review of Systems: Review of Systems Review of Systems Constitutional: Negative for fevers, chills Skin: Negative for rash, bruising HENT: Negative for sore throat, earache, nosebleeds Eyes: Negative for redness, drainage Cardiovascular: Negative for chest pain, palpitations Gastrointestinal: Negative for nausea, vomiting, diarrhea Respiratory: Positive for cough, shortness of breath. Phlegm production Genitourinary: Negative for frequency, dysuria Musculoskeletal: Negative for fall, trauma Neurological: Negative for headache, weakness Past Medical History: Past Medical History: Diagnosis Date COPD (chronic obstructive pulmonary disease) Emphysema lung Hypertension Lung disease Pacemaker Seizure 06/06/2020 Witnessed Past Surgical History: Past Surgical History: Procedure Laterality Date AAA REPAIR 01/31/2016 REMOVAL CATARACT (PEM) Bilateral 2013 PACEMAKER PLACEMENT 2002 battery change 2012 CORONARY STENT PLACEMENT 1996 BACK SURGERY N/A [id number] HEART CATHETERIZATION RELEASE CARPAL TUNNEL Right Allergies: Allergies Allergen Reactions Penicillins Hives and Swelling Tamsulosin Other reaction(s): Other (See Comments) Makes him blackout Clopidogrel Itching Medications: Patient's Medications New Prescriptions No medications on file Previous Medications ALBUTEROL (2.5 MG/3ML) 0.083% INHALATION SOLUTION Take 3 mL by nebulization every 6 hours as needed. ALBUTEROL 108 (90 BASE) MCG/ACT AERO SOLN INHALER Inhale 1-2 puffs every 6 hours as needed for Shortness of Breath or Wheezing. ASPIRIN (ECOTRIN LOW STRENGTH) [address] TABLET Take 1 tablet by mouth daily. ATORVASTATIN 10 MG TABLET Take 1 tablet by mouth daily. BUDESONIDE-FORMOTEROL (SYMBICORT) 160-4.5 MCG/PUFF AEROSOL INHALER Inhale 2 puffs every 12 hours. DISABILITY PLACARD Disability placard end date 08/29/2020 DISABILITY PLACARD Disability placard end date 09/19/2025 FLUTICASONE 50 MCG/ACT SUSPENSION NASAL SPRAY 2 sprays by Nasal route daily. FOLIC ACID 1 MG TABLET Take 1 tablet by mouth daily. IPRATROPIUM-ALBUTEROL 0.5-2.5 (3) MG/3ML NEBULIZER SOLUTION Take 3 mL by nebulization 4 times daily. METOPROLOL 25 MG TAB REGULAR RELEASE Take 1 tablet by mouth 2 times daily. MIDODRINE 5 MG TABLET Take 1 tablet by mouth 3 times daily (space doses 6 hours apart). NITROGLYCERIN 0.[address] 1 tablet under tongue every 5 minutes as needed for Chest pain. max = 3 doses. If CP persists after 3rd dose, call [phone] OXYGEN GAS Patient discharged from [facility] on 4 Liters of Oxygen via nc due to desaturation. Please provide oxygen for patient due to [facility] ED discharge instructions. This order certifies that this patient is under my care and that I, or a Nurse Practitioner or Physician's [employer]inder [employer] had a [id number] Encounter with them. Based upon those findings, the equipment/supplies listed above are medically necessary. ROFLUMILAST (DALIRESP) 500 MCG TABLET Take 1 tablet by mouth daily. TIOTROPIUM (SPIRIVA RESPIMAT) 2.5 MCG/ACT AERO SOLN INHALER Inhale 2 puffs daily. Modified Medications No medications on file Discontinued Medications No medications on file Family History: Family History Problem Relation Age of Onset Dysrhythmia Mother Dysrhythmia Brother Myocardial Infarction Brother Social History: Social History Socioeconomic History Marital status: Single Spouse name: Not on file Number of children: Not on file Years of education: Not on file Highest education level: Not on file Occupational History Not on file Tobacco Use Smoking status: Current Every Day Smoker Packs/day: 0.25 Smokeless tobacco: Never Used Vaping Use Vaping Use: Never used Substance and Sexual Activity Alcohol use: No Drug use: No Sexual activity: Not on file Other Topics Concern Service Not Asked Blood Transfusions Not Asked Caffeine Concern Not Asked Occupational Exposure Not Asked Hobby Hazards Not Asked Sleep Concern Not Asked Stress Concern Not Asked Weight Concern Not Asked Special Diet Not Asked Back Care Not Asked Exercise Not Asked Bike Helmet Not Asked Seat Belt Not Asked Domestic Violence No Social History Narrative Not on file Social Determinants of Health Financial Resource Strain: Difficulty of Paying Living Expenses: Food Insecurity: Worried About Running Out of Food in the Last Year: Ran Out of Food in the Last Year: Transportation Needs: Lack of Transportation (Medical): Lack of Transportation (Non-Medical): Physical Activity: Days of Exercise per Week: Minutes of Exercise per Session: Stress: Feeling of Stress : Social Connections: Frequency of Communication with Friends and Family: Frequency of Social Gatherings with Friends and Family: Attends Hindu Services: Active Member of Clubs or Organizations: Attends Club or Organization Meetings: Marital Status: Intimate Partner Violence: Fear of Current or Ex-Partner: Emotionally Abused: Physically Abused: Sexually Abused: Physical Exam: Physical Exam General: Thin male. General look of someone with chronic disease HENT: Head is atraumatic. Face is symmetric. Mucous membranes are hydrated. Nose without exudates Eyes: Pupils are equal. Sclerae anicteric Skin: Warm, dry Abdomen: Soft. No distention, guarding, rebound Respiratory: Expiratory wheezing Heart: Heart tones are regular. Capillary refill is brisk Neurologic: Awake, alert, anxious. Moving all extremities well Lymphatic: No lymphedema or lymphadenopathy Musculoskeletal: Negative Homans sign. No palpable cords Psychiatric: Anxious Vital Signs During ED Visit Patient Vitals for the past 24 hrs: BP Temp Temp src Pulse Resp SpO2 02/19/21 1014 126/68 66 20 97 % 02/19/21 0929 144/73 72 24 94 % 02/19/21 0900 159/81 77 (!) 28 94 % 02/19/21 0837 (!) 157/100 92 (!) 28 97 % 02/19/21 0754 97.7 F (36.5 C) Oral 02/19/21 0723 (!) 167/100 72 22 95 % 02/19/21 0639 177/80 97.9 F (36.6 C) Oral 65 22 100 % Orders/Results: Results for orders placed or performed during the hospital encounter of 02/19/21 COMPREHENSIVE METABOLIC PANEL Result Value Ref Range GLUCOSE 103 (H) 70 - 100 MG/DL BUN 29 (H) 7.0 - 20.0 MG/DL CREATININE SERUM 1.32 (H) 0.6 - 1.2 MG/DL SODIUM 140 136 - 145 MMOL/L POTASSIUM 4.0 3.5 - 5.1 MMOL/L CHLORIDE 102 98 - 107 MMOL/L CALCIUM 9.3 8.4 - 10.2 MG/DL PROTEIN, TOTAL 6.7 6.3 - 8.2 GM/DL ALBUMIN 3.6 3.5 - 5.0 G/dl BILIRUBIN, TOTAL 0.5 0.2 - 1.2 MG/DL AST 31 15 - 41 IU/L ALKALINE PHOSPHATASE 56 38 - 126 IU/L CARBON DIOXIDE (CO2) 22 22 - 30 MMOL/L A/G Ratio 1.2 (L) 1.3 - 2.2 RATIO ALT 18 17 - 63 IU/L ESTIMATED GFR, NON AMER 56 ml/min/1.73sq.m ESTIMATED GFR, >60 ml/min/1.73sq.m GFR COMMENT Average GFR for 70+ years old = 75. CBC, EDIF, PLATELET Result Value Ref Range WBC (WHITE BLOOD COUNT) 6.7 3.6 - 11.0 10*3/uL RBC 4.01 4.0 - 6.1 10*6/uL HEMOGLOBIN (HGB) 12.2 (L) 14.0 - 18.0 G/DL HEMATOCRIT (HCT) 35.4 (L) 42.0 - 52.0 % MEAN CELL VOLUME 88.1 80.0 - 100.0 FL Mean Cell HGB 30.4 26.0 - 35.0 PG MEAN CELL HGB CONCENTRATION 34.5 27.0 - 37.0 G/DL RBC DISTRIBUTION 15.7 (H) 11.5 - 14.5 % PLATELET COUNT 184 130 - 400 10*3/uL MEAN PLATELET VOLUME 9.0 7.4 - 11.0 FL DIFFERENTIAL TYPE AUTO DIFF % NEUTROPHILS 70.7 37.0 - 75.0 % LYMPHOCYTE 16.4 (L) 20.0 - 55.0 % MONOCYTE % 12.7 (H) 0.0 - 10.0 % EOSINOPHIL % 0.0 0.0 - 11.0 % BASOPHIL % 0.2 0.0 - 2.0 % Absolute Neutrophil Count 4.7 1 - 6 10*3/uL LYMPHOCYTES, ABSOLUTE 1.10 (L) 1.2 - 3.4 10*3/uL MONOCYTES, ABSOLUTE 0.8 (H) 0.0 - 0.7 10*3/uL ABSOLUTE EOSINOPHIL COUNT 0.00 0 - 0 10*3/uL ABSOLUTE BASOPHIL COUNT 0.0 0 - 0 10*3/uL MAGNESIUM Result Value Ref Range MAGNESIUM 2.6 (H) 1.6 - 2.3 MG/DL TROPONIN I, HIGH SENSITIVITY Result Value Ref Range TROPONIN I, HIGH SENSITIVITY 10 0 - 20 pg/mL B-TYPE NATRIURETIC PEPTIDE (BRAIN) Result Value Ref Range BRAIN NATRIURETIC PEPTIDE 280 (H) 0 - 100 pg/mL LACTATE, BLOOD Result Value Ref Range LACTATE, PLASMA 5.1 (HH) 0.5 - 2.0 MMOL/L C REACTIVE PROTEIN Result Value Ref Range C-REACTIVE PROTEIN 12.3 (H) 0 - 10.0 MG/L SEDIMENTATION RATE, AUTOMATED Result Value Ref Range SEDIMENTATION RATE AUTOMATED 20 0 - 20 MM/HR LACTATE, BLOOD Result Value Ref Range LACTATE, PLASMA 2.6 (HH) 0.5 - 2.0 MMOL/L Radiographic Imaging CT PE STUDY Final Result IMPRESSION: 1. No evidence of pulmonary embolism. 2. Stable pulmonary nodules up to 6 mm, with comparison to prior studies dating back to 09/30/2019. These are probably benign. Additional follow-up suggested as clinically warranted to assure greater than 2 years of long-term stability. 3. Centrilobular bullous emphysema and pleural-parenchymal scarring. No superimposed acute infiltrate. 4. Mildly enlarged right hilar lymph node of 1.3 cm, decreased in size compared to the most recent study of 12/01/2020, previously 1.6 cm. This is probably reactive in nature. Follow-up as clinically warranted. Procedures: Procedures Moderate Sedation Procedure: No ED Summary/MDM EKG interpretation by me shows a sinus rhythm first degree AV block. No STEMI. There is baseline artifact. NH interval 216 ms. This EKG is compared to February 15, 2021 We were able to get patient's Covid positive test from the blister. He has had breathing treatments. He is feeling better at this time. His initial lactic acid level was elevated. He is been treated and it is been repeated and is come down significantly. He initially states he did not receive the antibodies but family member called and after discussion with them and confirming with [facility] he did receive the antibodies. At this time he is resting comfortably. He will be discharged home in stable condition and he does have a prescription for antibiotics along with steroids Clinical Impression: 1. Chronic obstructive pulmonary disease with acute exacerbation 2. COVID-19 No follow-ups on file. New Prescriptions No medications on file Discontinued Medications No medications on file An After Visit Summary was printed and given to the patient with above information. . Clau Wheeler MD 02/19/21 1052 Pt arrives via EMS c/o shortness of breath. Pt recently diagnosed with Covid. Woke up around 0500 with labored breathing. Solumedrol 125 mg IVP and Magnesium 2 g IV given by EMS [employer]. Bed: E009 Expected date: Expected time: Means of arrival: Comments: ems documented in this encounter [facility] 02-15-2021 Emergency department Note Pt denies any symptoms with V tach Emergency Department Report [facility] Service Date:.02/15/21 PCP: Charleen Mendoza Chief Complaint: Chief Complaint Patient presents with Fatigue HPI Isaias Breaux is a 76 y.o. male presents to the ED today due to weakness. Family noted the patient's been increasingly tremor tremulous and having much decreased activity levels at home. They were attentive for couple days and they suspected didn't feed himself while they're out of town. Now they're back in town and they've noted him to be much quieter and disinterested in food or drinking. He's only had one cigarette as opposed to his typical 5 or 6 and he is having very decreased activity levels. There is no lateralizing signs or symptoms his speech is still clear but diminished in volume. The patient has no complaints of chest pain or abdominal pain or diarrhea Review of Systems: Review of Systems Constitutional: Positive for fatigue. Negative for activity change, appetite change and fever. HENT: Negative for ear pain, hearing loss, rhinorrhea, sneezing and trouble swallowing. Eyes: Negative for photophobia, pain, redness and visual disturbance. Respiratory: Negative for chest tightness, shortness of breath and wheezing. Cardiovascular: Negative for chest pain, palpitations and leg swelling. Gastrointestinal: Negative for abdominal pain, anal bleeding, diarrhea and nausea. Endocrine: Negative for polydipsia, polyphagia and polyuria. Genitourinary: Negative for difficulty urinating, flank pain, hematuria and urgency. Musculoskeletal: Negative for back pain, joint swelling, neck pain and neck stiffness. Skin: Negative for color change, pallor and rash. Allergic/Immunologic: Negative for environmental allergies and immunocompromised state. Neurological: Positive for dizziness, tremors and weakness. Negative for seizures, syncope, facial asymmetry, speech difficulty, light-headedness, numbness and headaches. Hematological: Negative for adenopathy. Does not bruise/bleed easily. Psychiatric/Behavioral: Negative for behavioral problems, confusion, dysphoric mood, hallucinations and self-injury. The patient is not nervous/anxious. Past Medical History: Past Medical History: Diagnosis Date COPD (chronic obstructive pulmonary disease) Emphysema lung Hypertension Lung disease Pacemaker Seizure 06/06/2020 Witnessed Past Surgical History: Past Surgical History: Procedure Laterality Date AAA REPAIR 01/31/2016 REMOVAL CATARACT (PEM) Bilateral 2013 PACEMAKER PLACEMENT 2003 battery change 2012 CORONARY STENT PLACEMENT 1996 BACK SURGERY N/A [id number] HEART CATHETERIZATION RELEASE CARPAL TUNNEL Right Allergies: Allergies Allergen Reactions Penicillins Hives and Swelling Tamsulosin Other reaction(s): Other (See Comments) Makes him blackout Clopidogrel Itching Medications: Current Discharge Medication List CONTINUE these medications which have NOT CHANGED Details albuterol (2.5 MG/3ML) 0.083% inhalation solution Take 3 mL by nebulization every 6 hours as needed. Qty: 20 vial, Refills: 3 albuterol 108 (90 Base) MCG/ACT Aero Soln inhaler Inhale 1-2 puffs every 6 hours as needed for Shortness of Breath or Wheezing. Qty: 1 Inhaler, Refills: 2 Associated Diagnoses: Chronic obstructive pulmonary disease, unspecified COPD type Aspirin (ECOTRIN LOW STRENGTH) [address] tablet Take 1 tablet by mouth daily. Qty: 90 tablet, Refills: 3 atorvastatin 10 MG tablet Take 1 tablet by mouth daily. Qty: 90 tablet, Refills: 1 budesonide-formoterol (Symbicort) 160-4.5 mcg/puff Aerosol inhaler Inhale 2 puffs every 12 hours. Qty: 10.2 g, Refills: 3 Associated Diagnoses: Chronic obstructive pulmonary disease, unspecified COPD type fluticasone 50 MCG/ACT Suspension nasal spray 2 sprays by Nasal route daily. Qty: 9.9 mL, Refills: 0 Associated Diagnoses: Non-seasonal allergic rhinitis, unspecified trigger metoprolol 25 MG tab regular release Take 1 tablet by mouth 2 times daily. Qty: 180 tablet, Refills: 3 Associated Diagnoses: Atherosclerosis of nikolai coronary artery of nikolai heart, angina presence unspecified; Old myocardial infarction; Hypertensive heart disease without congestive heart failure midodrine 5 MG tablet Take 1 tablet by mouth 3 times daily (space doses 6 hours apart). Qty: 90 tablet, Refills: 3 Associated Diagnoses: Syncope and collapse; Orthostatic hypotension oxygen gas Patient discharged from [facility] on 4 Liters of Oxygen via nc due to desaturation. Please provide oxygen for patient due to [facility] ED discharge instructions. This order certifies that this patient is under my care and that I, or a Nurse Practitioner or Physician's Grinder Gear had a [id number] Encounter with them. Based upon those findings, the equipment/supplies listed above are medically necessary. Qty: 1 Device, Refills: 0 Associated Diagnoses: Chronic obstructive pulmonary disease, unspecified COPD type roflumilast (Daliresp) 500 MCG tablet Take 1 tablet by mouth daily. Qty: 30 tablet, Refills: 5 Associated Diagnoses: Chronic obstructive pulmonary disease, unspecified COPD type tiotropium (Spiriva Respimat) 2.5 MCG/ACT Aero Soln inhaler Inhale 2 puffs daily. Qty: 4 g, Refills: 5 Associated Diagnoses: Chronic obstructive pulmonary disease, unspecified COPD type !! DISABILITY PLACARD Disability placard end date 08/29/2020 Qty: 1 Each, Refills: 0 Associated Diagnoses: Syncope and collapse; Orthostatic hypotension !! [facility] Qty: 1 Each, Refills: 0 Associated Diagnoses: Syncope and collapse; Cardiac pacemaker in situ folic acid 1 MG tablet Take 1 tablet by mouth daily. Qty: 90 tablet, Refills: 1 Associated Diagnoses: Other folate deficiency anemias ipratropium-albuterol 0.5-2.5 (3) MG/3ML nebulizer solution Take 3 mL by nebulization 4 times daily. Qty: 30 Each, Refills: 0 nitroGLYCERIN 0.[address] 1 tablet under tongue every 5 minutes as needed for Chest pain. max = 3 doses. If CP persists after 3rd dose, call 911 Qty: 25 tablet, Refills: 0 Associated Diagnoses: Chest pain, unspecified type !! - Potential duplicate medications found. Please discuss with provider. Family History: Family History Problem Relation Age of Onset Dysrhythmia Mother Dysrhythmia Brother Myocardial Infarction Brother Social History: Social History Socioeconomic History Marital status: Single Spouse name: Not on file Number of children: Not on file Years of education: Not on file Highest education level: Not on file Occupational History Not on file Tobacco Use Smoking status: Current Every Day Smoker Packs/day: 0.25 Smokeless tobacco: Never Used Vaping Use Vaping Use: Never used Substance and Sexual Activity Alcohol use: No Drug use: No Sexual activity: Not on file Other Topics Concern Service Not Asked Blood Transfusions Not Asked Caffeine Concern Not Asked Occupational Exposure Not Asked Hobby Hazards Not Asked Sleep Concern Not Asked Stress Concern Not Asked Weight Concern Not Asked Special Diet Not Asked Back Care Not Asked Exercise Not Asked Bike Helmet Not Asked Seat Belt Not Asked Domestic Violence No Social History Narrative Not on file Social Determinants of Health Financial Resource Strain: Difficulty of Paying Living Expenses: Food Insecurity: Worried About Running Out of Food in the Last Year: Ran Out of Food in the Last Year: Transportation Needs: Lack of Transportation (Medical): Lack of Transportation (Non-Medical): Physical Activity: Days of Exercise per Week: Minutes of Exercise per Session: Stress: Feeling of Stress : Social Connections: Frequency of Communication with Friends and Family: Frequency of Social Gatherings with Friends and Family: Attends Hindu Services: Active Member of Clubs or Organizations: Attends Club or Organization Meetings: Marital Status: Intimate Partner Violence: Fear of Current or Ex-Partner: Emotionally Abused: Physically Abused: Sexually Abused: Physical Exam: Physical Exam Vitals and nursing note reviewed. Constitutional: General: He is not in acute distress. Appearance: He is well-developed. He is not diaphoretic. Comments: Elderly white male awake follows commands but apathetic HENT: Head: Normocephalic and atraumatic. Nose: Nose normal. Mouth/Throat: Mouth: Mucous membranes are dry. Pharynx: No oropharyngeal exudate. Eyes: General: No scleral icterus. Right eye: No discharge. Left eye: No discharge. Conjunctiva/sclera: Conjunctivae normal. Pupils: Pupils are equal, round, and reactive to light. Neck: Thyroid: No thyromegaly. Vascular: No JVD. Cardiovascular: Rate and Rhythm: Normal rate and regular rhythm. Heart sounds: Normal heart sounds. No murmur heard. No friction rub. No gallop. Pulmonary: Effort: Pulmonary effort is normal. No respiratory distress. Breath sounds: Normal breath sounds. No wheezing or rales. Chest: Chest wall: No tenderness. Abdominal: General: Bowel sounds are normal. There is no distension. Palpations: Abdomen is soft. There is no mass. Tenderness: There is no abdominal tenderness. There is no guarding or rebound. Hernia: No hernia is present. Musculoskeletal: General: No tenderness or deformity. Normal range of motion. Cervical back: Normal range of motion and neck supple. Skin: General: Skin is warm and dry. Capillary Refill: Capillary refill takes less than 2 seconds. Coloration: Skin is not pale. Findings: No erythema or rash. Neurological: General: No focal deficit present. Mental Status: He is alert and oriented to person, place, and time. Cranial Nerves: No cranial nerve deficit. Motor: No abnormal muscle tone. Coordination: Coordination normal. Psychiatric: Behavior: Behavior normal. Thought Content: Thought content normal. Judgment: Judgment normal. Vital Signs During ED Visit Patient Vitals for the past 24 hrs: BP Temp Temp src Pulse Resp SpO2 Height Weight 02/15/21 1546 72 02/15/21 1545 133/76 02/15/21 1544 143/75 60 02/15/21 1532 150/80 72 20 93 % 02/15/21 1432 142/70 60 20 98 % 02/15/21 1354 115/66 86 22 100 % 02/15/21 1303 85/51 60 02/15/21 1301 87/53 02/15/21 1300 109/62 72 02/15/21 1259 98 % 02/15/21 1246 1.88 m (6' 2 ) 66 kg (145 lb 8 oz) 02/15/21 1240 108/67 98.2 F (36.8 C) Oral 72 (!) 26 94 % Orders/Results: Orders Placed This Encounter XR CHEST AP PORTABLE CT HEAD WITHOUT CONTRAST CHEM 7 (LYTES,BUN,CREA,GLUC) HEPATIC FUNCTION PANEL MAGNESIUM Troponin I, High sensitivity CBC, EDIF, PLATELET BLOOD GAS VENOUS sodium chloride 0.9% IV solution 500 mL sodium chloride 0.9% IV solution 1,000 mL sodium chloride 0.9% IV solution 500 mL URINALYSIS, MACRO Results for orders placed or performed during the hospital encounter of 02/15/21 CHEM 7 (LYTES,BUN,CREA,GLUC) Result Value Ref Range GLUCOSE 91 70 - 100 MG/DL BUN 34 (H) 7.0 - 20.0 MG/DL CREATININE SERUM 1.56 (H) 0.6 - 1.2 MG/DL SODIUM 136 136 - 145 MMOL/L POTASSIUM 4.0 3.5 - 5.1 MMOL/L CHLORIDE 102 98 - 107 MMOL/L CARBON DIOXIDE (CO2) 25 22 - 30 MMOL/L ESTIMATED GFR, NON AMER 46 ml/min/1.73sq.m ESTIMATED GFR, 56 ml/min/1.73sq.m GFR COMMENT Average GFR for 70+ years old = 75. HEPATIC FUNCTION PANEL Result Value Ref Range ALBUMIN 3.6 3.5 - 5.0 G/DL BILIRUBIN, TOTAL 0.6 0.2 - 1.2 MG/DL ALKALINE PHOSPHATASE 51 38 - 126 IU/L AST 24 15 - 41 IU/L BILIRUBIN, DIRECT 0.1 0.0 - 0.2 MG/DL PROTEIN, TOTAL 6.7 6.3 - 8.2 GM/DL ALT 14 (L) 17 - 63 IU/L MAGNESIUM Result Value Ref Range MAGNESIUM 1.9 1.6 - 2.3 MG/DL TROPONIN I, HIGH SENSITIVITY Result Value Ref Range TROPONIN I, HIGH SENSITIVITY 12 0 - 20 pg/mL CBC, EDIF, PLATELET Result Value Ref Range WBC (WHITE BLOOD COUNT) 2.5 (L) 3.6 - 11.0 10*3/uL RBC 3.88 (L) 4.0 - 6.1 10*6/uL HEMOGLOBIN (HGB) 11.8 (L) 14.0 - 18.0 G/DL HEMATOCRIT (HCT) 34.4 (L) 42.0 - 52.0 % MEAN CELL VOLUME 88.8 80.0 - 100.0 FL Mean Cell HGB 30.5 26.0 - 35.0 PG MEAN CELL HGB CONCENTRATION 34.4 27.0 - 37.0 G/DL RBC DISTRIBUTION 15.6 (H) 11.5 - 14.5 % PLATELET COUNT 134 130 - 400 10*3/uL MEAN PLATELET VOLUME 9.0 7.4 - 11.0 FL DIFFERENTIAL TYPE AUTO DIFF % NEUTROPHILS 70.7 37.0 - 75.0 % LYMPHOCYTE 12.3 (L) 20.0 - 55.0 % MONOCYTE % 16.2 (H) 0.0 - 10.0 % EOSINOPHIL % 0.1 0.0 - 11.0 % BASOPHIL % 0.7 0.0 - 2.0 % Absolute Neutrophil Count 1.8 1 - 6 10*3/uL LYMPHOCYTES, ABSOLUTE 0.30 (L) 1.2 - 3.4 10*3/uL MONOCYTES, ABSOLUTE 0.4 0.0 - 0.7 10*3/uL ABSOLUTE EOSINOPHIL COUNT 0.00 0 - 0 10*3/uL ABSOLUTE BASOPHIL COUNT 0.0 0 - 0 10*3/uL Radiographic Imaging CT HEAD WITHOUT CONTRAST Final Result IMPRESSION: 1. No interval change or acute intracranial abnormality. 2. Age-related minor cerebral cortical atrophy. XR CHEST AP PORTABLE Final Result IMPRESSION: 1. Prominent pulmonary hyperinflation is again noted suggesting underlying emphysematous or COPD changes. 2. Left pectoral pacemaker. 3. No acute chest finding otherwise. Moderate Sedation Procedure: No Procedures: Procedures EKG interpreted by myself shows a paced rhythm with normal axis QRS and ST segments are normal no evidence of acute ischemic changes or ST elevation per ED Summary/MDM Patient an IV established EKG basic labs as well as CT of x-ray were performed. Orthostatic vital signs were positive for symptoms and blood pressure changes. Patient was hydrated using 2 L of IV normal saline given over 2-1/2 hours. He felt much improved. His BUN and creatinine ratio climbed from his baseline and so that confirms his dehydration. He is tolerating by mouth there is no signs of elevations of any of his liver or cardiac markers and therefore given his nontoxic appearance his ability to tolerate by mouth and his ambulatory status. Discharge him home with early follow-up with his primary physician. Patient stable at this time and discharged in good condition Clinical Impression: 1. Dehydration No follow-ups on file. Current Discharge Medication List Current Discharge Medication List An After Visit Summary was printed and given to the patient with above information. . . Aubrey Zurita MD 02/15/21 1617 Pt c/o feeling weak for several days documented in this encounter [facility] 02-05-2021 History of Presen t illness Narrative PROGRESS NOTE SUBJECTIVE HPI The patient is a 76 y.o.male who presents today with the complains of pressure over the sinuses, cough, nasal congestion, nasal discharge which is clear, watery eyes with burning for one week headache last all day Continues to have shortness of breath. He has cough with clear mucus. Sneezing and coughing at the same time. Pain in the lower back on both sides Patient follows up with automotive specialty technician Dr. Lee for his COPD and the hypoxemic respiratory failure . Patient's blood pressure is being managed by his welding process engineer and as the patient had hypotension and he restarted him on Midodrine 5 mg 3 times daily.. Patient continues to smoke cigarettes less than 1/2 a pack(4 or 5) per day which he started at the age of 10. Review of Systems Constitutional: Negative for fever, chills, no fatigue. HENT: Positive for nasal congestion, pressure and some rhinorrhea Negative for hearing loss, ear pain, nosebleeds, congestion, sore throat. Eyes: Negative for blurred vision, double vision, eye pain, eye discharge, eye redness and eye watering. Cardiovascular: Negative for chest pain, dyspnea on exertion, palpitations, orthopnea, claudication, leg swelling and PND. Respiratory: Negative for cough. No shortness of breath, wheezing or stridor. Gastrointestinal: Negative for heartburn, nausea, vomiting, abdominal pain, diarrhea, constipation, blood in stool, melena. Genitourinary: Negative for bladder incontinence, dysuria, urgency, polyuria, frequency, hematuria. Musculoskeletal: Negative for myalgias, back pain, joint pain and falls. Neurological: Negative for dizziness, tingling, sensory change, speech change, focal weakness, seizures, loss of consciousness and headaches. OBJECTIVE Physical Exam Blood pressure 124/80, pulse 74, temperature 97.9 F (36.6 C), resp. rate 16, height 1.88 m (6' 2 ), weight 68.5 kg (151 lb 1.6 oz), SpO2 95 %., Body mass index is 19.4 kg/m . Constitutional:alert, well appearing, and in no distress, oriented to person, place, and time and normal appearing weight. Eyes: Reactive pupils, no conjunctival injection, no jaundice. Nose: Nasal congestion/bogginess present, percussive tenderness present over her maxillary sinuses bilaterally. Neck: Neck supple. Thyroid not enlarged. No anterior cervical adenopathy Chest: Decreased breath sounds on auscultation bilaterally, decreased chest expansion & respiratory effort.. Occasional scattered rhonchi and wheezing noted but no rales. Heart:normal rate, regular rhythm,hear rate 64 bpm normal S1, S2, no murmurs, rubs, clicks or gallops Abd:abdomen is soft without significant tenderness, masses, organomegaly or guarding. Ext:no peripheral edema and no swelling/erythema/tenderness Neurological: Alert. Extraocular movements intact, normal facial movements. Grossly normal strength noted during exam movements. Normal speech. Musculoskeletal: No joint deformity of hands, neck, or knees noted. Good ROM of all visible joints during exam. Gait & balance normal on observation within exam room. Psychiatric: Mood and affect normal. Judgment normal. Ordered thought content. RESULTS Imaging: Labs: No results found for this or any previous visit (from the past 672 hour(s)). ASSESSMENT: ICD-10-CM 1. Acute non-recurrent maxillary sinusitis J01.00 2. Non-seasonal allergic rhinitis, unspecified trigger J30.89 3. Tobacco use disorder F17.200 PLAN: Start the patient on azithromycin 250 mg(Z-Josh) 2 tablets on day 1 followed by 1 tablet daily for 4 more days. Start the patient on fluticasone propionic nasal spray 2 sprays on each nostril once daily. Patient take Claritin 10 mg 1 by mouth daily. Continue current medications including all inhalers as prescribed. Advised the patient to quit smoking as he has already extensive cardiovascular disease, hypoxemia and severe COPD. We will check CBC, comprehensive metabolic panel and lipid panel prior to next visit Return as scheduled in March 2021 or sooner when necessary. Orders Placed This Encounter azithromycin 250 MG tablet fluticasone 50 MCG/ACT Suspension nasal spray Discontinued Medications: There are no discontinued medications. Requested Prescriptions Signed Prescriptions Disp Refills azithromycin 250 MG tablet 6 tablet 0 Sig: Take by mouth 2 tablets (500 mg) on Day 1, then 1 tablet (250 mg) daily on Days 2-5 fluticasone 50 MCG/ACT Suspension nasal spray 9.9 mL 0 Si sprays by Nasal route daily. There are no Patient Instructions on file for this visit. Signed by: Charleen Mendoza MD documented in this encounter [facility] 01-18-2021 History of Presen t illness Narrative ..Patient arrived at 2120. He was roomed in bed two. The following is attached to the encounter: Test Data/Misc documented in this encounter [facility] 01-15-2021 History of Presen t illness Narrative Nurse Note: Review of Systems Constitutional: Negative for chills, fever and unexpected weight change. HENT: Negative for trouble swallowing. Respiratory: Positive for cough, shortness of breath and wheezing. Cardiovascular: Negative for chest pain and leg swelling. Gastrointestinal: Negative for diarrhea, nausea and vomiting. Musculoskeletal: Negative for neck pain. Allergic/Immunologic: Negative for environmental allergies. Neurological: Positive for dizziness. Negative for seizures and syncope. Hematological: Bruises/bleeds easily. Psychiatric/Behavioral: Positive for sleep disturbance. Nursing Assessment: Oxygen use __4 liters____ patient is benefiting from oxygen use. [facility] Most recent CT 12/01/20 Most recent PFT- 12/31/20 Symptoms include: Increase in shortness of breath- Yes Dyspnea upon exertion- Yes Dyspnea at rest- Yes Cough- productive Yes Pt presents for 6 week follow up. States he feels pretty good today but the heat and long periods of walking increase his shortness of breath. Medication refill? No Patient is a 76 y.o. male who came to be evaluated and managed for COPD, smoker hypoxemia; [facility] hosp 11/2020 Follow-up (6 week) and Chronic Obstructive Pulmonary Disease . HPI 01/15/21: not in AE; on inhalers. PFT, 6mwt, Echo, labs noted. BACKGROUND HISTORY - Smoker, hx of COPD, Chr Resp Failure on home O2 3L baseline. Ff'd by Pulm Dr. Townsend. - Admitted 11/30-: AECOPD, OSCAR. CTPE: as noted; no PE or PNA; lung nodules seen. Better after steroids, atbx levaquin, IVF. Also advised out-pt ffup w/ cardiol. for pacemaker battery. - details below Discharge Summary Admit Date: 11/30/2020 8:18 PM Discharge Date: 12/02/2020 Discharge Assesment and Plan: Principal Problem: Chronic obstructive pulmonary disease with acute exacerbation: complete atb. Steroid taper. Resume home nebs, ICS. Ct pe study ruled out pe. Pna. Will set fu with pulmonology as outpt. Active Problems: Essential hypertension: Resume home rx, stable Mixed hyperlipidemia: resume home rx. Chest pain: appear pleuritic. Worse with cough. Cardiac enzymes negative. Cs cardiology per pt/ family request. Ct pe study. + d dimer. dw dr gary no further inpt workup needed. Acute cystitis without hematuria: iv atb. GNR: complete atb course. Chronic respiratory failure with hypoxia: Baseline 02 3l/nc-- improved now back to baseline. Cigarette smoker: cessation strongly advised. OSCAR (acute kidney injury): prerenal 2/2 poor oral intake. Improving with ivf. Hx of cardiac pacemaker: Battery is nearing JASWINDER indices (0.25-0.5 years left, 2.71V) Brief Summary of Hospital Course: Patient presented with mid sternal chest pain. He was ruled out for acute coronary syndrome, pulmonary embolism, pneumonia. Patient treated for an acute exacerbation of COPD. He was also treated for acute kidney injury with IV fluid. Patient is back to baseline oxygen.Patient states she's feeling much better today and would like to go home. Cardiology did evaluate the patient and they will need to follow with him as an outpatient for his pacemaker nearing end battery. Consultants: cardiology. Current Outpatient Medications: albuterol (2.5 MG/3ML) 0.083% inhalation solution, Take 3 mL by nebulization every 6 hours as needed., Disp: 20 vial, Rfl: 3 albuterol 108 (90 Base) MCG/ACT Aero Soln inhaler, Inhale 1-2 puffs every 6 hours as needed for Shortness of Breath or Wheezing., Disp: 1 Inhaler, Rfl: 2 Aspirin (ECOTRIN LOW STRENGTH) [address] tablet, Take 1 tablet by mouth daily., Disp: 90 tablet, Rfl: 3 atorvastatin 10 MG tablet, Take 1 tablet by mouth daily., Disp: 90 tablet, Rfl: 1 budesonide-formoterol (Symbicort) 160-4.5 mcg/puff Aerosol inhaler, Inhale 2 puffs every 12 hours., Disp: 10.2 g, Rfl: 3 DISABILITY PLACARD, Disability placard end date 08/29/2020, Disp: 1 Each, Rfl: 0 DISABILITY PLACARD, Disability placard end date 09/19/2025, Disp: 1 Each, Rfl: 0 folic acid 1 MG tablet, Take 1 tablet by mouth daily., Disp: 90 tablet, Rfl: 1 ipratropium-albuterol 0.5-2.5 (3) MG/3ML nebulizer solution, Take 3 mL by nebulization 4 times daily., Disp: 30 Each, Rfl: 0 metoprolol 25 MG tab regular release, Take 1 tablet by mouth 2 times daily., Disp: 180 tablet, Rfl: 3 midodrine 5 MG tablet, Take 1 tablet by mouth daily., Disp: 90 tablet, Rfl: 3 nitroGLYCERIN 0.4 MG tablet SL, Place 1 tablet under tongue every 5 minutes as needed for Chest pain. max = 3 doses. If CP persists after 3rd dose, call 911, Disp: 25 tablet, Rfl: 0 oxygen gas, Patient discharged from [facility] on 4 Liters of Oxygen via nc due to desaturation. Please provide oxygen for patient due to [facility] ED discharge instructions. This order certifies that this patient is under my care and that I, or a Nurse Practitioner or Physician's Grinder Gear had a [id number] Encounter with them. Based upon those findings, the equipment/supplies listed above are medically necessary., Disp: 1 Device, Rfl: 0 roflumilast (Daliresp) 500 MCG tablet, Take 1 tablet by mouth daily., Disp: 30 tablet, Rfl: 5 tiotropium (Spiriva Respimat) 2.5 MCG/ACT Aero Soln inhaler, Inhale 2 puffs daily., Disp: 1 Inhaler, Rfl: 2 Past Medical History: Diagnosis Date COPD (chronic obstructive pulmonary disease) Emphysema lung Hypertension Lung disease Pacemaker Seizure 06/06/2020 Witnessed Past Surgical History: Procedure Laterality Date AAA REPAIR 01/31/2016 REMOVAL CATARACT (PEM) Bilateral 2012 PACEMAKER PLACEMENT 2002 battery change 2012 CORONARY STENT PLACEMENT 1996 BACK SURGERY N/A [id number] HEART CATHETERIZATION RELEASE CARPAL TUNNEL Right Social History Tobacco Use Smoking status: Current Every Day Smoker Packs/day: 0.25 Smokeless tobacco: Never Used Substance Use Topics Alcohol use: No Family History Problem Relation Age of Onset Dysrhythmia Mother Dysrhythmia Brother Myocardial Infarction Brother Allergies Allergen Reactions Penicillins Hives and Swelling Tamsulosin Other reaction(s): Other (See Comments) Makes him blackout Clopidogrel Itching Review of Systems Constitutional: Negative for appetite change, chills, diaphoresis, fever and unexpected weight change. HENT: Negative for nosebleeds, sinus pain and voice change. Eyes: Negative for pain and discharge. Respiratory: Positive for cough, shortness of breath and wheezing. Negative for apnea, choking, chest tightness and stridor. Cardiovascular: Negative for chest pain and leg swelling. Genitourinary: Negative for dysuria and hematuria. Allergic/Immunologic: Positive for environmental allergies. Negative for food allergies and immunocompromised state. Neurological: Negative for seizures. Psychiatric/Behavioral: Positive for sleep disturbance. Negative for confusion. The patient is not nervous/anxious. Nurse Note: Review of Systems Constitutional: Negative for chills, fever and unexpected weight change. HENT: Negative for trouble swallowing. Respiratory: Positive for cough, shortness of breath and wheezing. Cardiovascular: Negative for chest pain and leg swelling. Gastrointestinal: Negative for diarrhea, nausea and vomiting. Musculoskeletal: Negative for neck pain. Allergic/Immunologic: Negative for environmental allergies. Neurological: Positive for dizziness. Negative for seizures and syncope. Hematological: Bruises/bleeds easily. Psychiatric/Behavioral: Positive for sleep disturbance. Nursing Assessment: Oxygen use __4 liters____ patient is benefiting from oxygen use. [facility] Most recent CT 12/01/20 Most recent PFT- 12/31/20 Symptoms include: Increase in shortness of breath- Yes Dyspnea upon exertion- Yes Dyspnea at rest- Yes Cough- productive Yes Pt presents for 6 week follow up. States he feels pretty good today but the heat and long periods of walking increase his shortness of breath. Medication refill? No Vitals: 01/15/21 1307 BP: 100/72 Pulse: 69 Resp: 20 SpO2: 97% Weight: 69.4 kg (152 lb 14.4 oz) Height: 1.88 m (6' 2 ) Physical Exam Vitals and nursing note reviewed. Constitutional: General: He is not in acute distress. HENT: Head: Normocephalic and atraumatic. Right Ear: External ear normal. Left Ear: External ear normal. Nose: Nose normal. Mouth/Throat: Mouth: Mucous membranes are moist. Pharynx: Oropharynx is clear. No oropharyngeal exudate or posterior oropharyngeal erythema. Eyes: General: No scleral icterus. Conjunctiva/sclera: Conjunctivae normal. Pupils: Pupils are equal, round, and reactive to light. Neck: Vascular: No JVD. Trachea: No tracheal deviation. Cardiovascular: Rate and Rhythm: Normal rate and regular rhythm. Heart sounds: Normal heart sounds. Pulmonary: Effort: Pulmonary effort is normal. No respiratory distress. Breath sounds: No stridor. Examination of the right-lower field reveals decreased breath sounds. Examination of the left-lower field reveals decreased breath sounds. Decreased breath sounds present. No wheezing, rhonchi or rales. Chest: Chest wall: No tenderness. There is no dullness to percussion. Genitourinary: Comments: Deferred Musculoskeletal: Cervical back: Neck supple. Right lower leg: No edema. Left lower leg: No edema. Lymphadenopathy: Cervical: No cervical adenopathy. Skin: General: Skin is warm and dry. Coloration: Skin is not jaundiced. Neurological: Mental Status: He is alert and oriented to person, place, and time. Psychiatric: Mood and Affect: Mood normal. Behavior: Behavior normal. ICD-10-CM 1. Chronic obstructive pulmonary disease, unspecified COPD type J44.9 AMB REFERRAL TO PULMONARY REHAB 2. Centrilobular emphysema J43.2 AMB REFERRAL TO PULMONARY REHAB 3. Chronic respiratory failure with hypoxia, on home oxygen therapy J96.11 Z99.81 4. Cigarette nicotine dependence with nicotine-induced disorder F17.219 NH SMOKE/TOBACCO COUNSELING 3-10 MIN 5. Pulmonary nodules R91.8 6. Secondary pulmonary arterial hypertension I27.21 7. ROMEO (obstructive sleep apnea) G47.33 Problem List Items Addressed This Visit Centrilobular emphysema See COPD Relevant Orders AMB REFERRAL TO PULMONARY REHAB Chronic respiratory failure with hypoxia, on home oxygen therapy - Continue O2 3L; may titrate to keep spO2>90%; wean as tolerated; pt benefits from O2. Cigarette nicotine dependence with nicotine-induced disorder Smoking Cessation Counseling (including rationale, help that can be provided to assist in cessation; risks of smoking-related cancer, COPD or arteriovascular disease, including CAD, PVD or stroke are increased with continued smoking); 3 minutes spent; current smoker: yes; ready to quit:no; options, aids, discussed with pt. Relevant Orders NH SMOKE/TOBACCO COUNSELING 3-10 MIN COPD (chronic obstructive pulmonary disease) - Primary Smoker; chr SOB, some cough. CT w/ BUL predom Emphysema, mild central bronch. Thickening - 12/31/2020 PFT: Severe Obstruction/COPD; possibly with mild emphysema; with possible element of reversible obstruction (reactive airway disease, asthma). TLC NL. DL/VA NL. --- FEV1 to FVC ratio is 32%. FEV1 1.30 L at 36% predicted value. FVC 4.08 L at 82% predicted value. Maximal Mid-Expiratory or Small Airways Flow Rate FEF 25-75% 0.28 L/s at 11% predicted value. PEF 2.99 L/s at 34% predicted value. There was NO OR MILD (only FEF 25-75% improved, by 16%; FEV1 increased by 11%) statistically significant bronchodilator response. - 12/31/2020 LABS: Alpha 1 Antitrypsin enzyme level 189 not deficient. - 12/31/2020 IgE 13 NL. Mini-Panel, Mold Allergens : Neg. Except for Equivocal/ low level sensitization to Dog dander - minimize/avoid exposures (vacuum, wash beddings frequently, etc). May take [id number] Zyrtec (or xyzal, gino, claritin) as needed if having nasal allergy symptoms. - 12/31/2020 Vit D low (Vit D 22.3) - take OTC Vit D 5000 units daily. - PFT 02/01/2018 OSH: Severe Obstruction, w/ BD response. - On Symbicort, Spiriva, Duonebs; albuterol prn; use spacer - consider Daliresp, long-term Azithromycin, randy if has freq. AECOPD; as abdiel; if feasible - may also use duonebs; budesonide+formoterol nebs alternatively - pt benefits from nebulizer treatments - Inhaler technique teaching done/reviewed prev.; rinse mouth after inhaler use, especially steroid inhalers - Smoking cessation - monitor PFT prn, as indic. - monitor imaging prn, CXR prn (CT Chest as indicated) - Pulmonary rehab program, if feasible; rec to stay active - Influenza, pneumococcal, COVID19 vaccines recommended, updated Relevant Orders AMB REFERRAL TO PULMONARY REHAB AMB REFERRAL TO PULMONARY REHAB ROMEO (obstructive sleep apnea) Snoring, poss. Apneas, poor sleep, some excessive daytime somnolence - Sleep study; CPAP, Sleep Clinic referral, as indic. - Reinforced: adverse consequences of ROMEO, compliance, side sleeping if feasible, sleep hygiene (and avoid/minimize alcohol, sedative/respiratory depressant meds, nicotine/smoking cessation), not driving/operating machinery while sleepy. Pulmonary nodules - CTPE 11/2020: noncalcified nodules, nodular linear opacities and irregular opacities within the lung dietz as described. There are stable mediastinal and bilateral hilar lymph nodes. The mediastinal lymph nodes are not pathologically enlarged based on size however the bilateral hilar lymph nodes are prominent. BUL predom. Emphysematous changes. - prob. Benign, but smoker w/ COPD - follow-up CT 3 months is recommended to confirm continued stability. Ordered 02/2021 - further evaluation, management pending results, clinical course. - Diagnostic (malignant vs benign) and management options discussed at length w/ pt; questions answered; and pt stated understanding and agreement. RESOLVED: Secondary pulmonary arterial hypertension May develop sec PH related to cardiopulm dis. - 12/31/2020 Echocardiogram reviewed: satisfactory; normal function (LVEF), no overt pulm HTN (RVSP 31). Stable c/w 05/2020. - monitor Echo as indic - optimize underlying conditions - consider PSG, if indic I personally reviewed selected chart notes, results, interpreted tests, imaging today before seeing the pt; reviewed and discussed w/ pt, questions answered - 12/31/2020 PFT: Severe Obstruction/COPD; possibly with mild emphysema; with possible element of reversible obstruction (reactive airway disease, asthma). TLC NL. DL/VA NL. --- FEV1 to FVC ratio is 32%. FEV1 1.30 L at 36% predicted value. FVC 4.08 L at 82% predicted value. Maximal Mid-Expiratory or Small Airways Flow Rate FEF 25-75% 0.28 L/s at 11% predicted value. PEF 2.99 L/s at 34% predicted value. There was NO OR MILD (only FEF 25-75% improved, by 16%; FEV1 increased by 11%) statistically significant bronchodilator response. - 12/31/2020 LABS: Alpha 1 Antitrypsin enzyme level 189 not deficient. - 12/31/2020 IgE 13 NL. Mini-Panel, Mold Allergens : Neg. Except for Equivocal/ low level sensitization to Dog dander - minimize/avoid exposures (vacuum, wash beddings frequently, etc). May take [id number] Zyrtec (or xyzal, gino, claritin) as needed if having nasal allergy symptoms. - 12/31/2020 Vit D low (Vit D 22.3) - take OTC Vit D 5000 units daily. - 12/31/2020 6MWT: on Room Air. - As per protocol, pt. walked for 6 minutes, for a distance of 800 ft (6MWD 243.8 m). - Baseline SpO2 at rest on room air: 98%. - Significant oxygen desaturation while walking: NO OR MILD; lowest spO2 91% at 2 min; post-test spO2 94%. - Dyspnea: SEVERE, highest Mod. Arabella Dyspnea Scale Score: 10/10. IMP: Exercise limitation: YES. Required or Qualified for Oxygen Supplementation: NO. - 12/31/2020 Echocardiogram reviewed: satisfactory; normal function (LVEF), no overt pulm HTN (RVSP 31). Stable c/w 05/2020. - CTPE 11/2020: noncalcified nodules, nodular linear opacities and irregular opacities within the lung dietz as described. There are stable mediastinal and bilateral hilar lymph nodes. The mediastinal lymph nodes are not pathologically enlarged based on size however the bilateral hilar lymph nodes are prominent. A follow-up CT examination of the chest in 3 months is recommended to confirm continued stability. BUL predom. Emphysematous changes. IMPRESSION: There is no pulmonary embolus. The lung dietz are emphysematous. There are noncalcified nodules, nodular linear opacities and irregular opacities within the lung dietz as described. There are stable mediastinal and bilateral hilar lymph nodes. The mediastinal lymph nodes are not pathologically enlarged based on size however the bilateral hilar lymph nodes are prominent. A follow-up CT examination of the chest in 3 months is recommended to confirm continued stability. - PFT 02/01/2018 OSH: Severe Obstruction, w/ BD response. Return in about 3 months (around 04/17/2021). [address] 02/2021 FOLLOW-UP Patient was advised to call with any questions or concerns. If symptoms worsen or fail to improve patient was advised to call for follow up in our office and/or PCP, or go to the Emergency Dept. Benefits, Risks, Contraindications, and Complications of recommended treatments were explained, and the patient stated understanding and agreement to proceed with plan. (The above report was entered in part using Dragon voice recognition medical dictation software. Although I have reviewed this report for accuracy, certain words and phrases may not be entered as intended. Please excuse typographical and grammatical errors.) Eugene Lee MD, MPH, [facility] Pulmonary/Critical Care Medicine 01/15/2021 documented in this encounter [facility] 01-15-2021 Miscellaneous Notes Associated Problem(s): ROMEO (obstructive sleep apnea) Snoring, poss. Apneas, poor sleep, some excessive daytime somnolence - Sleep study; CPAP, Sleep Clinic referral, as indic. - Reinforced: adverse consequences of ROMEO, compliance, side sleeping if feasible, sleep hygiene (and avoid/minimize alcohol, sedative/respiratory depressant meds, nicotine/smoking cessation), not driving/operating machinery while sleepy. Associated Problem(s): Secondary pulmonary arterial hypertension (Resolved 01/15/2021) May develop sec PH related to cardiopulm dis. - 12/31/2020 Echocardiogram reviewed: satisfactory; normal function (LVEF), no overt pulm HTN (RVSP 31). Stable c/w 05/2020. - monitor Echo as indic - optimize underlying conditions - consider PSG, if indic Associated Problem(s): Pulmonary nodules - CTPE 11/2020: noncalcified nodules, nodular linear opacities and irregular opacities within the lung dietz as described. There are stable mediastinal and bilateral hilar lymph nodes. The mediastinal lymph nodes are not pathologically enlarged based on size however the bilateral hilar lymph nodes are prominent. BUL predom. Emphysematous changes. - prob. Benign, but smoker w/ COPD - follow-up CT 3 months is recommended to confirm continued stability. Ordered 02/2021 - further evaluation, management pending results, clinical course. - Diagnostic (malignant vs benign) and management options discussed at length w/ pt; questions answered; and pt stated understanding and agreement. Associated Problem(s): COPD (chronic obstructive pulmonary disease) Smoker; chr SOB, some cough. CT w/ BUL predom Emphysema, mild central bronch. Thickening - 12/31/2020 PFT: Severe Obstruction/COPD; possibly with mild emphysema; with possible element of reversible obstruction (reactive airway disease, asthma). TLC NL. DL/VA NL. --- FEV1 to FVC ratio is 32%. FEV1 1.30 L at 36% predicted value. FVC 4.08 L at 82% predicted value. Maximal Mid-Expiratory or Small Airways Flow Rate FEF 25-75% 0.28 L/s at 11% predicted value. PEF 2.99 L/s at 34% predicted value. There was NO OR MILD (only FEF 25-75% improved, by 16%; FEV1 increased by 11%) statistically significant bronchodilator response. - 12/31/2020 LABS: Alpha 1 Antitrypsin enzyme level 189 not deficient. - 12/31/2020 IgE 13 NL. Mini-Panel, Mold Allergens : Neg. Except for Equivocal/ low level sensitization to Dog dander - minimize/avoid exposures (vacuum, wash beddings frequently, etc). May take [id number] Zyrtec (or xyzal, gino, claritin) as needed if having nasal allergy symptoms. - 12/31/2020 Vit D low (Vit D 22.3) - take OTC Vit D 5000 units daily. - PFT 02/01/2018 OSH: Severe Obstruction, w/ BD response. - On Symbicort, Spiriva, Duonebs; albuterol prn; use spacer - consider Daliresp, long-term Azithromycin, randy if has freq. AECOPD; as abdiel; if feasible - may also use duonebs; budesonide+formoterol nebs alternatively - pt benefits from nebulizer treatments - Inhaler technique teaching done/reviewed prev.; rinse mouth after inhaler use, especially steroid inhalers - Smoking cessation - monitor PFT prn, as indic. - monitor imaging prn, CXR prn (CT Chest as indicated) - Pulmonary rehab program, if feasible; rec to stay active - Influenza, pneumococcal, COVID19 vaccines recommended, updated Associated Problem(s): Cigarette nicotine dependence with nicotine-induced disorder Smoking Cessation Counseling (including rationale, help that can be provided to assist in cessation; risks of smoking-related cancer, COPD or arteriovascular disease, including CAD, PVD or stroke are increased with continued smoking); 3 minutes spent; current smoker: yes; ready to quit:no; options, aids, discussed with pt. Associated Problem(s): Chronic respiratory failure with hypoxia, on home oxygen therapy - Continue O2 3L; may titrate to keep spO2>90%; wean as tolerated; pt benefits from O2. Associated Problem(s): Centrilobular emphysema See COPD documented in this encounter [facility] 01-10-2021 History of Presen t illness Narrative PROGRESS NOTE SUBJECTIVE HPI The patient is a 75 y.o.male who presents today for follow up of hyperlipidemia and anemia Patient says that he is doing good today. Patient was admitted to [facility] from 11/30/2020 to 2020 for exacerbation of COPD was discharged to home with the prednisone and the Levaquin. Patient was referred to automotive specialty technician Dr. Lee for his COPD and the hypoxemic respiratory failure . Patient's blood pressure is being managed by his welding process engineer and as the patient had hypotension he restarted him on Midodrine 5 mg 3 times daily which was discontinued may be in the ED. Patient continues to smoke cigarettes less than 1/2 a pack per day which he started at the age of 10. Patient had a negative cologuard test in July 2020. Review of Systems Constitutional: Negative for fever, chills, no fatigue. HENT: Negative for hearing loss, ear pain, nosebleeds, congestion, sore throat, rhinorrhea and sinus pain. Eyes: Negative for blurred vision, double vision, eye pain, eye discharge, eye redness and eye watering. Cardiovascular: Negative for chest pain, dyspnea on exertion, palpitations, orthopnea, claudication, leg swelling and PND. Respiratory: Negative for cough. No shortness of breath, wheezing or stridor. Gastrointestinal: Negative for heartburn, nausea, vomiting, abdominal pain, diarrhea, constipation, blood in stool, melena. Genitourinary: Negative for bladder incontinence, dysuria, urgency, polyuria, frequency, hematuria. Musculoskeletal: Negative for myalgias, back pain, joint pain and falls. Neurological: Negative for dizziness, tingling, sensory change, speech change, focal weakness, seizures, loss of consciousness and headaches. OBJECTIVE Physical Exam Blood pressure 128/64, pulse 64, temperature 98.1 F (36.7 C), resp. rate 16, height 1.88 m (6' 2 ), weight 68.6 kg (151 lb 3.2 oz), SpO2 97 %., Body mass index is 19.41 kg/m . Constitutional:alert, well appearing, and in no distress, oriented to person, place, and time and normal appearing weight. Eyes: Reactive pupils, no conjunctival injection, no jaundice. Nose: No nasal congestion/bogginess, no sinus tenderness Neck: Neck supple. Thyroid not enlarged. No anterior cervical adenopathy Chest: Decreased breath sounds on auscultation bilaterally, decreased chest expansion & respiratory effort.. Occasional scattered rhonchi and wheezing noted but no rales. Heart:normal rate, regular rhythm,hear rate 64 bpm normal S1, S2, no murmurs, rubs, clicks or gallops Abd:abdomen is soft without significant tenderness, masses, organomegaly or guarding. Ext:no peripheral edema and no swelling/erythema/tenderness Neurological: Alert. Extraocular movements intact, normal facial movements. Grossly normal strength noted during exam movements. Normal speech. Musculoskeletal: No joint deformity of hands, neck, or knees noted. Good ROM of all visible joints during exam. Gait & balance normal on observation within exam room. Psychiatric: Mood and affect normal. Judgment normal. Ordered thought content. RESULTS Imaging: Labs: Recent Results (from the past 672 hour(s)) MINI-PANEL ALLERGEN PROFILE Collection Time: 12/31/20 1:43 PM Result Value Ref Range CLASS DESCRIPTION Comment BERMUDA GRASS IGE <0.10 CAT DANDER, CONV, CLASS <0.10 House Dust Mites/D.P., Class <0.10 ELM, IGE <0.10 HUNGARIAN PLANTAIN, IGE <0.10 BLUEGRASS, [place] <0.10 OAK, WHITE <0.10 SHORT RAGWEED, IGE <0.10 House Dust Mites/D.F.,Class <0.10 ALTERNARIA ALTERNATA <0.10 Mouse Urine Protein, IgE <0.10 ALLERGEN, DOG DANDER, IGE 0.12 (A) ALLERGEN PROFILE, MOLD Collection Time: 12/31/20 1:44 PM Result Value Ref Range CLASS DESCRIPTION Comment CLADOSPORIUM HERBARUM IGE <0.10 ASPERGILLUS FUMIGATUS, IGE <0.10 IGE MUCOR RACEMOSUS <0.10 IGE USAMA ALBICANS <0.10 IGE AUREOBASIDIUM PULLUL <0.10 IGE PHOMA BETAE <0.10 IGE EPICOCCUM PURPURASCE <0.10 PENICILLIUM CHRYSOGEN <0.10 ALTERNARIA ALTERNATA <0.10 Fusarium Proliferatum <0.10 STEMPHYLIUM HERBARUM <0.10 SETOMELANOMMA ROSTRAT <0.10 IMMUNOGLOBULIN IGE Collection Time: 12/31/20 1:44 PM Result Value Ref Range IMMUNOGLOBULIN IGE 13 VITAMIN D (25-HYDROXY,TOTAL) Collection Time: 12/31/20 1:44 PM Result Value Ref Range VITAMIN D 25 HYDROXY 22.3 (L) >30 NG/ML ALPHA 1 ANTITRYPSIN Collection Time: 12/31/20 1:44 PM Result Value Ref Range ALPHA 1 ANTITRYPSIN 189 (H) ASSESSMENT: ICD-10-CM 1. Mixed hyperlipidemia E78.2 2. Tobacco use disorder F17.200 3. Anemia, normocytic normochromic D64.9 PLAN: Review of the records from her return. Review of Hospital regarding patient's admission in November 2020. Reviewed the records from his automotive specialty technician at [facility]. Continue current medications including all inhalers as prescribed. Advised the patient to quit smoking as he has already extensive cardiovascular disease, hypoxemia and severe COPD. Patient to follow-up with pulmonary. We will check CBC, comprehensive metabolic panel and lipid panel prior to next visit Return in 3 months or sooner when necessary. No orders of the defined types were placed in this encounter. Discontinued Medications: Medications Discontinued During This Encounter Medication Reason predniSONE 10 MG tablet Therapy completed Requested Prescriptions No prescriptions requested or ordered in this encounter There are no Patient Instructions on file for this visit. Signed by: Charleen Mendoza MD documented in this encounter [facility] 01-10-2021 Miscellaneous Notes Addended by: VAL BELL on: 01/10/2021 11:54 AM Modules accepted: Orders documented in this encounter [facility] 12-31-2020 Procedure note Associated Order(s): PFT COMPLETE Procedure(s): PFT COMPLETE 12/31/2020 Isaias Breaux is a 75 y.o. male, Date of :1945. Dx: COPD. Ht 74 in, Wt 159 lbs. Smoker: YES. Medications not listed. Pt efforts: FAIR. Data appear acceptable and reproducible. Albuterol given for postbronchodilator spirometry. Procedure: Pulmonary Function Test Complete PFT including spirometry, spirometry with bronchodilator response, lung volumes, Diffusion capacity and Flow Volume Loop were performed during this session. Spirometry: FEV1 to FVC ratio is 32%. FEV1 1.30 L at 36% predicted value. FVC 4.08 L at 82% predicted value. Maximal Mid-Expiratory or Small Airways Flow Rate FEF 25-75% 0.28 L/s at 11% predicted value. PEF 2.99 L/s at 34% predicted value. There was NO OR MILD (only FEF 25-75% improved, by 16%; FEV1 increased by 11%) statistically significant bronchodilator response. Maximum voluntary ventilation (MVV) 31 L/min; which is at 21% predicted value, REDUCED, somewhat [id number] from the FEV1 (suggesting either difficulty or fatigue during the maneuver, and/or hyperventilation-induced bronchospasm; please correlate clinically). Lung volumes : RV to TLC ratio 44%; Peripheral Air Trapping: YES. TLC 6.92 L at 93% predicted value. RV 3.06 L at 106% predicted value. Diffusion Capacity : DLCO at a single breath at 51% predicted value. DLCO corrected for alveolar volume (DL/VA) at 86% predicted value. Flow volume loop was reviewed: Obstructive pattern. Upper Airway Obstruction Pattern: NO. Analysis: 1. Spirometry, Flow Volume Loops: Severe Obstructive Ventilatory Defect. 2. FEF 25-75% Maximal Mid-Expiratory or Small Airways Flow Rate: REDUCED, suggesting possible Small Airways Flow limitation (small airways dysfunction/obstruction, although this parameter has poor reproducibility in general). 3. PEF Peak Expiratory Flow rate: REDUCED. 4. Statistically significant bronchodilator response: NO OR MILD (this does not preclude clinical benefit from bronchodilators; results may be affected by recent use of bronchodilators, steroids, etc.). 5. MVV: REDUCED. 6. Lung Volumes: Total Lung Capacity was NORMAL; Peripheral Air Trapping: YES. 7. Diffusion Capacity, gas transfer/gas exchange, was MODERATELY REDUCED. However, Diffusion Capacity normalizes when adjusted or corrected for lung/alveolar volume; the DL/VA ratio was Normal; suggesting more of extra-parenchymal defect (e.g., body habitus, obesity, chest wall restriction, neuromuscular disease, pleural effusions, etc.) more than intra-parenchymal abnormality (e.g., Emphysema, Pulm. Fibrosis, pulmonary vascular disease, etc.) Impression: Results would be compatible with: - 12/31/2020 PFT: Severe Obstruction/COPD; possibly with mild emphysema; with possible element of reversible obstruction (reactive airway disease, asthma). Please correlate clinically. (The above report was entered in part using Neptune recognition medical dictation software. Although I have reviewed this report for accuracy, certain words and phrases may not be entered as intended. Please excuse typographical and grammatical errors.) Associated Order(s): EXERCISE-6 MIN. WALK Procedure(s): EXERCISE-6 MIN. WALK 75 y.o. male; Dx: COPD. - 12/31/2020 6MWT: on Room Air. - As per protocol, pt. walked for 6 minutes, for a distance of 800 ft (6MWD 243.8 m). - Baseline SpO2 at rest on room air: 98%. - Significant oxygen desaturation while walking: NO OR MILD; lowest spO2 91% at 2 min; post-test spO2 94%. - Dyspnea: SEVERE, highest Mod. Arabella Dyspnea Scale Score: 10/10. IMP: Exercise limitation: YES. Required or Qualified for Oxygen Supplementation: NO. documented in this encounter [facility] 12-31-2020 Miscellaneous Notes - 12/31/2020 Echocardiogram reviewed: satisfactory; normal function (LVEF), no overt pulm HTN (RVSP 31). Stable c/w 05/2020. Will discuss details further during follow-up visit. Staff: please inform patient. Thanks. documented in this encounter [facility] 12-26-2020 History of Presen t illness Narrative FINDINGS: PPM interrogation only evaluation. Battery is nearing JASWINDER indices (2.66V with estimated 9 months, was 2.71V with 6 months at last check 8 weeks ago). PPM site examined and shows no abnormalities. Presenting rhythm is NSR at 69 bpm. Episode log indicates that there were 0 VHR, 750 AMS episodes since last interrogation. No episodes were available for EGM review to assess rhythm. Impedance, pacing, and sensing thresholds WNL. Safety margins maintained. AP 66%, ASSOCIATE ART DIRECTOR 3.8%. Mode switch 2.6% of the time. On ASA. HR histograms reviewed and WNL. No programming changes were made. Return to office for full check in 8 weeks. For full summary, see PaceArt attachment under Procedures tab under Device Evaluation for this date. If PDF from erp programmer and/or remote monitoring website is needed, please look in PaceArt or contact [facility]. documented in this encounter [facility] 12-04-2020 Miscellaneous Notes Associated Problem(s): ROMEO (obstructive sleep apnea) Snoring, poss. Apneas, poor sleep, some excessive daytime somnolence - Sleep study; CPAP, Sleep Clinic referral, as indic. - Reinforced: adverse consequences of ROMEO, compliance, side sleeping if feasible, sleep hygiene (and avoid/minimize alcohol, sedative/respiratory depressant meds, nicotine/smoking cessation), not driving/operating machinery while sleepy. Associated Problem(s): Chronic respiratory failure with hypoxia, on home oxygen therapy - Continue O2 3L; may titrate to keep spO2>90%; wean as tolerated; pt benefits from O2. Associated Problem(s): Secondary pulmonary arterial hypertension May develop sec PH related to cardiopulm dis. - monitor Echo as indic - optimize underlying conditions - consider PSG, if indic Associated Problem(s): Centrilobular emphysema See COPD Associated Problem(s): COPD (chronic obstructive pulmonary disease) Smoker; chr SOB, some cough. CT w/ BUL predom Emphysema, mild central bronch. Thickening - PFT 02/01/2018 OSH: Severe Obstruction, w/ BD response. - On Symbicort, Spiriva, Duonebs; albuterol prn; use spacer - consider Daliresp, long-term Azithromycin, randy if has freq. AECOPD; as abdiel; if feasible - may also use duonebs; budesonide+formoterol nebs alternatively - pt benefits from nebulizer treatments - Inhaler technique teaching done/reviewed prev.; rinse mouth after inhaler use, especially steroid inhalers - Smoking cessation - monitor PFT prn, as indic. - monitor imaging prn, CXR prn (CT Chest as indicated) - Pulmonary rehab program, if feasible; rec to stay active - Influenza, pneumococcal, COVID19 vaccines recommended, updated Associated Problem(s): Cigarette nicotine dependence with nicotine-induced disorder Smoking Cessation Counseling, 3 minutes spent; current smoker: yes; ready to quit:no; options, aids, discussed with pt. Associated Problem(s): Pulmonary nodules - CTPE 11/2020: noncalcified nodules, nodular linear opacities and irregular opacities within the lung dietz as described. There are stable mediastinal and bilateral hilar lymph nodes. The mediastinal lymph nodes are not pathologically enlarged based on size however the bilateral hilar lymph nodes are prominent. BUL predom. Emphysematous changes. - prob. Benign, but smoker w/ COPD - follow-up CT 3 months is recommended to confirm continued stability. - further evaluation, management pending results, clinical course. - Diagnostic (malignant vs benign) and management options discussed at length w/ pt; questions answered; and pt stated understanding and agreement. documented in this encounter [facility] 12-04-2020 History of Presen t illness Narrative Nurse Note: Review of Systems Eyes: Positive for discharge and itching. Respiratory: Positive for cough, chest tightness, shortness of breath and wheezing. Cardiovascular: Positive for chest pain. Allergic/Immunologic: Positive for environmental allergies. Neurological: Positive for dizziness, tremors, seizures, syncope, weakness, light-headedness and headaches. Hematological: Bruises/bleeds easily. Psychiatric/Behavioral: Positive for sleep disturbance. Nursing Assessment: Oxygen use ___yes, 4 lpm ___ patient is benefiting from oxygen use. [facility] Most recent CT 12/01/2020 Most recent PFT- 02/10/2018 Symptoms include: Increase in shortness of breath-yes, pt has had seizer like activity Dyspnea upon exertion-yes, walking, stairs, inclines Dyspnea at rest-no Cough- productive-yes, color-yellow/green Pt presents for review of symptoms Pt has Symbicort + Sprivia Pt has rescue inhaler, nebulizer-Duonebs Pt was 92% at rest on room air. Patient is a 75 y.o. male who came to be evaluated and managed for COPD, smoker hypoxemia; AECOPD hosp 11/2020 Other (New Patient-Low Oxygen) . HPI BACKGROUND HISTORY - Smoker, hx of COPD, Chr Resp Failure on home O2 3L baseline. Ff'd by Pulm Dr. Townsend. - Admitted 11/30-: AECOPD, OSCAR. CTPE: as noted; no PE or PNA; lung nodules seen. Better after steroids, atbx levaquin, IVF. Also advised out-pt ffup w/ cardiol. for pacemaker battery. - details below Discharge Summary Admit Date: 11/30/2020 8:18 PM Discharge Date: 12/02/2020 Discharge Assesment and Plan: Principal Problem: Chronic obstructive pulmonary disease with acute exacerbation: complete atb. Steroid taper. Resume home nebs, ICS. Ct pe study ruled out pe. Pna. Will set fu with pulmonology as outpt. Active Problems: Essential hypertension: Resume home rx, stable Mixed hyperlipidemia: resume home rx. Chest pain: appear pleuritic. Worse with cough. Cardiac enzymes negative. Cs cardiology per pt/ family request. Ct pe study. + d dimer. dw dr gary no further inpt workup needed. Acute cystitis without hematuria: iv atb. GNR: complete atb course. Chronic respiratory failure with hypoxia: Baseline 02 3l/nc-- improved now back to baseline. Cigarette smoker: cessation strongly advised. OSCAR (acute kidney injury): prerenal 2/2 poor oral intake. Improving with ivf. Hx of cardiac pacemaker: Battery is nearing JASWINDER indices (0.25-0.5 years left, 2.71V) Brief Summary of Hospital Course: Patient presented with mid sternal chest pain. He was ruled out for acute coronary syndrome, pulmonary embolism, pneumonia. Patient treated for an acute exacerbation of COPD. He was also treated for acute kidney injury with IV fluid. Patient is back to baseline oxygen.Patient states she's feeling much better today and would like to go home. Cardiology did evaluate the patient and they will need to follow with him as an outpatient for his pacemaker nearing end battery. Consultants: cardiology. Current Outpatient Medications: albuterol 108 (90 Base) MCG/ACT Aero Soln inhaler, Inhale 1-2 puffs every 6 hours as needed for Shortness of Breath or Wheezing., Disp: 1 Inhaler, Rfl: 2 Aspirin (ECOTRIN LOW STRENGTH) [address] tablet, Take 1 tablet by mouth daily., Disp: 90 tablet, Rfl: 3 atorvastatin 10 MG tablet, Take 1 tablet by mouth daily., Disp: 90 tablet, Rfl: 1 budesonide-formoterol (Symbicort) 160-4.5 mcg/puff Aerosol inhaler, Inhale 2 puffs every 12 hours., Disp: 10.2 g, Rfl: 3 DISABILITY PLACARD, Disability placard end date 08/29/2020, Disp: 1 Each, Rfl: 0 DISABILITY PLACARD, Disability placard end date 09/19/2025, Disp: 1 Each, Rfl: 0 folic acid 1 MG tablet, Take 1 tablet by mouth daily., Disp: 90 tablet, Rfl: 1 ipratropium-albuterol 0.5-2.5 (3) MG/3ML nebulizer solution, Take 3 mL by nebulization 4 times daily., Disp: 30 Each, Rfl: 0 levoFLOXacin 500 MG tablet, Take 1 tablet by mouth daily for 3 days., Disp: 3 tablet, Rfl: 0 metoprolol 25 MG tab regular release, Take 1 tablet by mouth 2 times daily., Disp: 180 tablet, Rfl: 3 midodrine 5 MG tablet, Take 1 tablet by mouth daily., Disp: 90 tablet, Rfl: 3 nitroGLYCERIN 0.4 MG tablet SL, Place 1 tablet under tongue every 5 minutes as needed for Chest pain. max = 3 doses. If CP persists after 3rd dose, call 911, Disp: 25 tablet, Rfl: 0 oxygen gas, Patient discharged from [facility] on 4 Liters of Oxygen via nc due to desaturation. Please provide oxygen for patient due to [facility] ED discharge instructions. This order certifies that this patient is under my care and that I, or a Nurse Practitioner or Physician's [employer] had a Pide-rf-Lbeh Encounter with them. Based upon those findings, the equipment/supplies listed above are medically necessary., Disp: 1 Device, Rfl: 0 predniSONE 10 MG tablet, 4 tabs po daily x 3 days, 3 tabs po daily x 3 days, 2 tabs po daily x 3 days, 1 tab po daily x 3 days, then discontinue, Disp: 30 tablet, Rfl: 0 tiotropium (Spiriva Respimat) 2.5 MCG/ACT Aero Soln inhaler, Inhale 2 puffs daily., Disp: 1 Inhaler, Rfl: 2 albuterol (2.5 MG/3ML) 0.083% inhalation solution, Take 3 mL by nebulization every 6 hours as needed. (Patient not taking: Reported on 12/04/2020), Disp: 20 vial, Rfl: 3 roflumilast (Daliresp) 500 MCG tablet, Take 1 tablet by mouth daily., Disp: 30 tablet, Rfl: 5 Past Medical History: Diagnosis Date COPD (chronic obstructive pulmonary disease) Emphysema lung Hypertension Lung disease Pacemaker Seizure 06/06/2020 Witnessed Past Surgical History: Procedure Laterality Date AAA REPAIR 01/31/2016 REMOVAL CATARACT (PEM) Bilateral 2013 PACEMAKER PLACEMENT 2002 battery change 2012 CORONARY STENT PLACEMENT 1996 BACK SURGERY N/A [id number] HEART CATHETERIZATION RELEASE CARPAL TUNNEL Right Social History Tobacco Use Smoking status: Current Every Day Smoker Packs/day: 0.25 Smokeless tobacco: Never Used Substance Use Topics Alcohol use: No Family History Problem Relation Age of Onset Dysrhythmia Mother Dysrhythmia Brother Myocardial Infarction Brother Allergies Allergen Reactions Penicillins Hives and Swelling Tamsulosin Other reaction(s): Other (See Comments) Makes him blackout Clopidogrel Itching Review of Systems Constitutional: Negative for appetite change, chills, diaphoresis, fever and unexpected weight change. HENT: Negative for nosebleeds, sinus pain and voice change. Eyes: Negative for pain and discharge. Respiratory: Positive for cough, shortness of breath and wheezing. Negative for apnea, choking, chest tightness and stridor. Cardiovascular: Negative for chest pain and leg swelling. Genitourinary: Negative for dysuria and hematuria. Allergic/Immunologic: Positive for environmental allergies. Negative for food allergies and immunocompromised state. Neurological: Negative for seizures. Psychiatric/Behavioral: Positive for sleep disturbance. Negative for confusion. The patient is not nervous/anxious. Other Nurse Note: Review of Systems Eyes: Positive for discharge and itching. Respiratory: Positive for cough, chest tightness, shortness of breath and wheezing. Cardiovascular: Positive for chest pain. Allergic/Immunologic: Positive for environmental allergies. Neurological: Positive for dizziness, tremors, seizures, syncope, weakness, light-headedness and headaches. Hematological: Bruises/bleeds easily. Psychiatric/Behavioral: Positive for sleep disturbance. Nursing Assessment: Oxygen use ___yes, 4 lpm ___ patient is benefiting from oxygen use. [facility] Most recent PFT- 02/10/2018 Symptoms include: Increase in shortness of breath-yes, pt has had seizer like activity Dyspnea upon exertion-yes, walking, stairs, inclines Dyspnea at rest-no Cough- productive-yes, color-yellow/green Pt presents for review of symptoms Pt has Symbicort + Sprivia Pt has rescue inhaler, nebulizer-Duonebs Pt was 92% at rest on room air. Vitals: 12/04/20 1307 BP: 116/64 Pulse: 74 Resp: 18 Temp: 97.7 degrees F (36.5 degrees C) TempSrc: Infrared SpO2: 98% Weight: 72.2 kg (159 lb 1.6 oz) Height: 1.88 m (6' 2.02 ) Physical Exam Vitals and nursing note reviewed. Constitutional: General: He is not in acute distress. HENT: Head: Normocephalic and atraumatic. Right Ear: External ear normal. Left Ear: External ear normal. Nose: Nose normal. Mouth/Throat: Mouth: Mucous membranes are moist. Pharynx: Oropharynx is clear. No oropharyngeal exudate or posterior oropharyngeal erythema. Eyes: General: No scleral icterus. Conjunctiva/sclera: Conjunctivae normal. Pupils: Pupils are equal, round, and reactive to light. Neck: Vascular: No JVD. Trachea: No tracheal deviation. Cardiovascular: Rate and Rhythm: Normal rate and regular rhythm. Heart sounds: Normal heart sounds. Pulmonary: Effort: Pulmonary effort is normal. No respiratory distress. Breath sounds: No stridor. Examination of the right-lower field reveals decreased breath sounds. Examination of the left-lower field reveals decreased breath sounds. Decreased breath sounds present. No wheezing, rhonchi or rales. Chest: Chest wall: No tenderness. There is no dullness to percussion. Genitourinary: Comments: Deferred Musculoskeletal: Cervical back: Neck supple. Right lower leg: No edema. Left lower leg: No edema. Lymphadenopathy: Cervical: No cervical adenopathy. Skin: General: Skin is warm and dry. Coloration: Skin is not jaundiced. Neurological: Mental Status: He is alert and oriented to person, place, and time. Psychiatric: Mood and Affect: Mood normal. Behavior: Behavior normal. ICD-10-CM 1. Chronic obstructive pulmonary disease, unspecified COPD type J44.9 ALPHA 1 ANTITRYPSIN IMMUNOGLOBULIN IGE ALLERGEN PROFILE, MOLD MINI-PANEL ALLERGEN PROFILE EXERCISE-6 MIN. WALK PFT COMPLETE roflumilast (Daliresp) 500 MCG tablet 2. Pulmonary nodules R91.8 CT CHEST WITHOUT CONTRAST 3. Cigarette nicotine dependence with nicotine-induced disorder F17.219 NH SMOKE/TOBACCO COUNSELING 3-10 MIN AMB REFERRAL TO SMOKING CESSATION 4. Centrilobular emphysema J43.[address] CHEST WITHOUT CONTRAST 5. Chronic respiratory failure with hypoxia, on home oxygen therapy J96.11 Z99.81 6. Secondary pulmonary arterial hypertension I27.21 ECHOCARDIOGRAM 7. Vitamin D deficiency E55.9 VITAMIN D (25-HYDROXY,TOTAL) 8. Screening for viral disease Z11.59 NOVEL CORONAVIRUS- NASOPHARYNGEAL 9. Uncomplicated asthma, unspecified asthma severity, unspecified whether persistent J45.909 ALLERGEN PROFILE, MOLD MINI-PANEL ALLERGEN PROFILE 10. ROMEO (obstructive sleep apnea) G47.33 SLEEP STUDY - DIAGNOSTIC SLEEP STUDY - TITRATION Problem List Items Addressed This Visit Respiratory Centrilobular emphysema See COPD Relevant Orders ALPHA [address] CHEST WITHOUT CONTRAST Chronic respiratory failure with hypoxia, on home oxygen therapy - Continue O2 3L; may titrate to keep spO2>90%; wean as tolerated; pt benefits from O2. COPD (chronic obstructive pulmonary disease) - Primary Smoker; chr SOB, some cough. CT w/ BUL predom Emphysema, mild central bronch. Thickening - PFT 02/01/2018 OSH: Severe Obstruction, w/ BD response. - On Symbicort, Spiriva, Duonebs; albuterol prn; use spacer - consider Daliresp, long-term Azithromycin, randy if has freq. AECOPD; as abdiel; if feasible - may also use duonebs; budesonide+formoterol nebs alternatively - pt benefits from nebulizer treatments - Inhaler technique teaching done/reviewed prev.; rinse mouth after inhaler use, especially steroid inhalers - Smoking cessation - monitor PFT prn, as indic. - monitor imaging prn, CXR prn (CT Chest as indicated) - Pulmonary rehab program, if feasible; rec to stay active - Influenza, pneumococcal, COVID19 vaccines recommended, updated Relevant Medications roflumilast (Daliresp) 500 MCG tablet Other Relevant Orders ALPHA [address] CHEST WITHOUT CONTRAST ALPHA 1 ANTITRYPSIN IMMUNOGLOBULIN IGE ALLERGEN PROFILE, MOLD MINI-PANEL ALLERGEN PROFILE EXERCISE-6 MIN. WALK PFT COMPLETE ROMEO (obstructive sleep apnea) Snoring, poss. Apneas, poor sleep, some excessive daytime somnolence - Sleep study; CPAP, Sleep Clinic referral, as indic. - Reinforced: adverse consequences of ROMEO, compliance, side sleeping if feasible, sleep hygiene (and avoid/minimize alcohol, sedative/respiratory depressant meds, nicotine/smoking cessation), not driving/operating machinery while sleepy. Relevant Orders SLEEP STUDY - DIAGNOSTIC SLEEP STUDY - TITRATION Pulmonary nodules - CTPE 11/2020: noncalcified nodules, nodular linear opacities and irregular opacities within the lung dietz as described. There are stable mediastinal and bilateral hilar lymph nodes. The mediastinal lymph nodes are not pathologically enlarged based on size however the bilateral hilar lymph nodes are prominent. BUL predom. Emphysematous changes. - prob. Benign, but smoker w/ COPD - follow-up CT 3 months is recommended to confirm continued stability. - further evaluation, management pending results, clinical course. - Diagnostic (malignant vs benign) and management options discussed at length w/ pt; questions answered; and pt stated understanding and agreement. Relevant Orders CT CHEST WITHOUT CONTRAST Cardiovascular Secondary pulmonary arterial hypertension May develop sec PH related to cardiopulm dis. - monitor Echo as indic - optimize underlying conditions - consider PSG, if indic Relevant Orders ECHOCARDIOGRAM Nervous Cigarette nicotine dependence with nicotine-induced disorder Smoking Cessation Counseling, 3 minutes spent; current smoker: yes; ready to quit:no; options, aids, discussed with pt. Relevant Orders NH SMOKE/TOBACCO COUNSELING 3-10 MIN AMB REFERRAL TO SMOKING CESSATION Other Visit Diagnoses Vitamin D deficiency Relevant Orders VITAMIN D (25-HYDROXY,TOTAL) Screening for viral disease Relevant Orders NOVEL CORONAVIRUS- NASOPHARYNGEAL Uncomplicated asthma, unspecified asthma severity, unspecified whether persistent Relevant Orders ALLERGEN PROFILE, MOLD MINI-PANEL ALLERGEN PROFILE I personally reviewed selected chart notes, results, interpreted tests, imaging today before seeing the pt; reviewed and discussed w/ pt, questions answered - CTPE 11/2020: noncalcified nodules, nodular linear opacities and irregular opacities within the lung dietz as described. There are stable mediastinal and bilateral hilar lymph nodes. The mediastinal lymph nodes are not pathologically enlarged based on size however the bilateral hilar lymph nodes are prominent. A follow-up CT examination of the chest in 3 months is recommended to confirm continued stability. BUL predom. Emphysematous changes. IMPRESSION: There is no pulmonary embolus. The lung dietz are emphysematous. There are noncalcified nodules, nodular linear opacities and irregular opacities within the lung dietz as described. There are stable mediastinal and bilateral hilar lymph nodes. The mediastinal lymph nodes are not pathologically enlarged based on size however the bilateral hilar lymph nodes are prominent. A follow-up CT examination of the chest in 3 months is recommended to confirm continued stability. - PFT 02/01/2018 OSH: Severe Obstruction, w/ BD response. Return in about 6 weeks (around 01/15/2021). ffup 6 wks FOLLOW-UP Patient was advised to call with any questions or concerns. If symptoms worsen or fail to improve patient was advised to call for follow up in our office and/or PCP, or go to the Emergency Dept. Benefits, Risks, Contraindications, and Complications of recommended treatments were explained, and the patient stated understanding and agreement to proceed with plan. (The above report was entered in part using [employer] recognition medical dictation software. Although I have reviewed this report for accuracy, certain words and phrases may not be entered as intended. Please excuse typographical and grammatical errors.) Eugene Lee MD, MPH, FCCP Pulmonary/Critical Care Medicine 12/04/2020 Other documented in this encounter [facility] 11-19-2020 Emergency department Note Emergency Department Report [facility] EM[facility] Service Date:.11/19/20 PCP: Charleen Mendoza Chief Complaint: Chief Complaint Patient presents with Shortness of Breath shortness of breath began this AM when patient got up to go to bathroom. wears 3L O2 at home BESSIE Breaux is a 75 y.o. male presents to the ED with chief complaint of this of breath. Patient is not oxygen dependent male with COPD presenting to the emergency department complaining of increasing shortness of breath. He states started this morning. He states he has had a cough which is productive of phlegm but states that a chronic issue and not new. He denies hemoptysis. He denies any shaking chills, loss of taste or smell or sick contacts. He denies chest pain, palpitations, frequency, urgency. He states he has no other complaints Review of Systems: Review of Systems Review of Systems Constitutional: Negative for fevers or chills Skin: Negative for rash, bruising HENT: Negative for sore throat, earache, nosebleeds Eyes: Negative for redness, drainage Cardiovascular: Negative for chest pain, palpitations Gastrointestinal: Negative for vomiting, diarrhea Respiratory: Positive for cough, COPD, shortness of breath Genitourinary: Negative for frequency, dysuria Musculoskeletal: Negative for calf pain, swelling, falls Neurological: Negative for headache, weakness Past Medical History: Past Medical History: Diagnosis Date COPD (chronic obstructive pulmonary disease) Emphysema lung Hypertension Lung disease Pacemaker Seizure 06/06/2020 Witnessed Past Surgical History: Past Surgical History: Procedure Laterality Date AAA REPAIR 01/31/2016 REMOVAL CATARACT (PEM) Bilateral 2013 PACEMAKER PLACEMENT 2003 battery change 2012 CORONARY STENT PLACEMENT 1997 HEART CATHETERIZATION RELEASE CARPAL TUNNEL Right Allergies: Allergies Allergen Reactions Penicillins Hives and Swelling Tamsulosin Other reaction(s): Other (See Comments) Makes him blackout Clopidogrel Itching Medications: Patient's Medications New Prescriptions LEVOFLOXACIN 750 MG TABLET Take 1 tablet by mouth daily for 10 days. PREDNISONE 20 MG TABLET Take 1 tablet by mouth daily. Previous Medications ALBUTEROL (2.5 MG/3ML) 0.083% INHALATION SOLUTION Take 3 mL by nebulization every 6 hours as needed. ALBUTEROL 108 (90 BASE) MCG/ACT AERO SOLN INHALER Inhale 1-2 puffs every 6 hours as needed for Shortness of Breath or Wheezing. ASPIRIN (ECOTRIN LOW STRENGTH) [address] TABLET Take 1 tablet by mouth daily. ATORVASTATIN 10 MG TABLET Take 1 tablet by mouth daily. BUDESONIDE-FORMOTEROL (SYMBICORT) 160-4.5 MCG/PUFF AEROSOL INHALER Inhale 2 puffs every 12 hours. DISABILITY PLACARD Disability placard end date 08/29/2020 DISABILITY PLACARD Disability placard end date 09/19/2025 FOLIC ACID 1 MG TABLET Take 1 tablet by mouth daily. IPRATROPIUM-ALBUTEROL 0.5-2.5 (3) MG/3ML NEBULIZER SOLUTION Take 3 mL by nebulization 4 times daily. METOPROLOL 25 MG TAB REGULAR RELEASE Take 1 tablet by mouth 2 times daily. MIDODRINE 5 MG TABLET Take 1 tablet by mouth daily. NITROGLYCERIN 0.[address] 1 tablet under tongue every 5 minutes as needed for Chest pain. max = 3 doses. If CP persists after 3rd dose, call 911 TIOTROPIUM (SPIRIVA RESPIMAT) 2.5 MCG/ACT AERO SOLN INHALER Inhale 2 puffs daily. Modified Medications No medications on file Discontinued Medications PREDNISONE 20 MG TAB TABLET Take 2 tablets by mouth daily for 3 days. PREDNISONE 20 MG TAB TABLET Take 2 tablets by mouth daily for 5 days. PREDNISONE 20 MG TAB TABLET Take 1 tablet by mouth 2 times daily for 3 days. Family History: Family History Problem Relation Age of Onset Dysrhythmia Mother Dysrhythmia Brother Myocardial Infarction Brother Social History: Social History Socioeconomic History Marital status: Single Spouse name: Not on file Number of children: Not on file Years of education: Not on file Highest education level: Not on file Occupational History Not on file Tobacco Use Smoking status: Current Every Day Smoker Packs/day: 0.25 Smokeless tobacco: Never Used Substance and Sexual Activity Alcohol use: No Drug use: No Sexual activity: Not on file Other Topics Concern Service Not Asked Blood Transfusions Not Asked Caffeine Concern Not Asked Occupational Exposure Not Asked Hobby Hazards Not Asked Sleep Concern Not Asked Stress Concern Not Asked Weight Concern Not Asked Special Diet Not Asked Back Care Not Asked Exercise Not Asked Bike Helmet Not Asked Seat Belt Not Asked Domestic Violence No Social History Narrative Not on file Social Determinants of Health Financial Resource Strain: Difficulty of Paying Living Expenses: Not on file Food Insecurity: Worried About Running Out of Food in the Last Year: Not on file Ran Out of Food in the Last Year: Not on file Transportation Needs: Lack of Transportation (Medical): Not on file Lack of Transportation (Non-Medical): Not on file Physical Activity: Days of Exercise per Week: Not on file Minutes of Exercise per Session: Not on file Stress: Feeling of Stress : Not on file Social Connections: Frequency of Communication with Friends and Family: Not on file Frequency of Social Gatherings with Friends and Family: Not on file Attends Hindu Services: Not on file Active Member of Clubs or Organizations: Not on file Attends Club or Organization Meetings: Not on file Marital Status: Not on file Intimate Partner Violence: Fear of Current or Ex-Partner: Not on file Emotionally Abused: Not on file Physically Abused: Not on file Sexually Abused: Not on file Physical Exam: Physical Exam General: Well-nourished well-hydrated nontoxic male HENT: Head is atraumatic. Scalp is nontender. Face is symmetric. Mucous membranes are well-hydrated. Nose without exudates Eyes: Pupils are equal and reactive. Sclerae anicteric Skin: Warm and dry. No rash. No petechiae, purpura Abdomen: Soft and nontender. Good bowel sounds are heard in all 4 quadrants. There is no distention, guarding, rebound Respiratory: Decreased breath sounds in the bases. Coughing occasionally. No subcostal retractions Heart: Heart tones are regular. Capillary refill is brisk and less than 2 seconds Neurologic: Awake alert and oriented 3. Moving all extremities well. Nonfocal neurologic exam Lymphatic: No lymphedema or lymphadenopathy Musculoskeletal: Negative Homans sign. No palpable cords Psychiatric: Cooperative and alert with examiner Vital Signs During ED Visit Patient Vitals for the past 24 hrs: BP Temp Temp src Pulse Resp SpO2 Height 11/19/20 0752 163/77 86 18 97 % 11/19/20 0652 95 % 11/19/20 0648 1.88 m (6' 2 ) 11/19/20 0644 (!) 185/100 97.8 F (36.6 C) Oral 82 18 95 % Orders/Results: Results for orders placed or performed during the hospital encounter of 11/19/20 CBC, EDIF, PLATELET Result Value Ref Range WBC (WHITE BLOOD COUNT) 4.9 3.6 - 11.0 10*3/uL RBC 3.91 (L) 4.0 - 6.1 10*6/uL HEMOGLOBIN (HGB) 12.1 (L) 14.0 - 18.0 G/DL HEMATOCRIT (HCT) 36.0 (L) 42.0 - 52.0 % MEAN CELL VOLUME 92.1 80.0 - 100.0 FL Mean Cell HGB 30.9 26.0 - 35.0 PG MEAN CELL HGB CONCENTRATION 33.5 27.0 - 37.0 G/DL RBC DISTRIBUTION 15.2 (H) 11.5 - 14.5 % PLATELET COUNT 176 130 - 400 10*3/uL MEAN PLATELET VOLUME 8.2 7.4 - 11.0 FL DIFFERENTIAL TYPE AUTO DIFF % NEUTROPHILS 68.5 37.0 - 75.0 % LYMPHOCYTE 17.4 (L) 20.0 - 55.0 % MONOCYTE % 7.8 0.0 - 10.0 % EOSINOPHIL % 4.8 0.0 - 11.0 % BASOPHIL % 1.5 0.0 - 2.0 % Absolute Neutrophil Count 3.3 1 - 6 10*3/uL LYMPHOCYTES, ABSOLUTE 0.80 (L) 1.2 - 3.4 10*3/uL MONOCYTES, ABSOLUTE 0.4 0.0 - 0.7 10*3/uL ABSOLUTE EOSINOPHIL COUNT 0.20 0 - 0 10*3/uL ABSOLUTE BASOPHIL COUNT 0.1 0 - 0 10*3/uL CHEM 7 (LYTES,BUN,CREA,GLUC) Result Value Ref Range GLUCOSE 108 (H) 70 - 100 MG/DL BUN 25 (H) 7.0 - 20.0 MG/DL CREATININE SERUM 1.16 0.6 - 1.2 MG/DL SODIUM 138 136 - 145 MMOL/L POTASSIUM 4.4 3.5 - 5.1 MMOL/L CHLORIDE 102 98 - 107 MMOL/L CARBON DIOXIDE (CO2) 28 22 - 30 MMOL/L ESTIMATED GFR, NON AMER >60 ml/min/1.73sq.m ESTIMATED GFR, >60 ml/min/1.73sq.m GFR COMMENT Average GFR for 70+ years old = 75. TROPONIN I, HIGH SENSITIVITY Result Value Ref Range TROPONIN I, HIGH SENSITIVITY 5 0 - 20 pg/mL PROTIME-INR Result Value Ref Range PT 13.2 11.8 - 14.4 SEC INR 0.98 0.88 - 1.12 PTT Result Value Ref Range PTT 31.0 22.4 - 34.7 SEC Radiographic Imaging XR CHEST PA AND LATERAL Final Result IMPRESSION: No active disease in the chest Procedures: Procedures Moderate Sedation Procedure: No ED Summary/MDM EKG interpreted by me shows a paced rhythm with a rate is 71 bpm. No STEMI. QRS duration of 80 ms. When compared to most recent EKGs dated June 30, 2020 he had paced rhythm at that time as well Patient is feeling better after his breathing treatments. His blood work has been reviewed. Chest x-ray shows no active disease. At this time his troponin is not elevated. He will be discharged home on steroids. He is to use his breathing treatments as indicated Clinical Impression: 1. COPD exacerbation No follow-ups on file. New Prescriptions LEVOFLOXACIN 750 MG TABLET Take 1 tablet by mouth daily for 10 days. PREDNISONE 20 MG TABLET Take 1 tablet by mouth daily. Discontinued Medications PREDNISONE 20 MG TAB TABLET Take 2 tablets by mouth daily for 3 days. PREDNISONE 20 MG TAB TABLET Take 2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 Negative for cough. No shortness of breath, wheezing or stridor. Gastrointestinal: Negative for heartburn, nausea, vomiting, abdominal pain, diarrhea, constipation,blood in stool, melena. Genitourinary: Negative for bladder incontinence, dysuria, urgency, polyuria, frequency, hematuria. Musculoskeletal: Negative for myalgias, back pain, joint pain and falls. Neurological: Negative for dizziness, tingling, sensory change, speech change, focal weakness, seizures, loss of consciousness and headaches. OBJECTIVE Physical Exam Blood pressure 130/76, pulse 59, temperature 97.9 F (36.6 C), resp. rate 16, height 1.88 m (6' 2 ),weight 70.6 kg (155 lb 9.6 oz), SpO2 96 %., Body mass index is 19.98 kg/m . Constitutional:alert, well appearing, and in no distress, oriented to person, place, and time and normal appearing weight. Eyes: Reactive pupils, no conjunctival injection, no jaundice. Nose: No nasal congestion/bogginess, no sinus tenderness Mouth/Throat: Moist mucous membranes. No pharyngeal erythema Neck: Neck supple. Thyroid not enlarged. No anterior cervical adenopathy Chest: Decreased breath sounds on auscultation bilaterally, decreased chest expansion & respiratory effort.. Occasional scattered rhonchi and wheezing noted but no rales. Heart:normal rate, regular rhythm, normal S1, S2, no murmurs, rubs, clicks or gallops Abd:abdomen is soft without significant tenderness, masses, organomegaly or guarding. Ext:no peripheral edema and no swelling/erythema/tenderness Neurological: Alert. Extraocular movements intact, normal facial movements. Grossly normal strengthnoted during exam movements. Normal speech. Musculoskeletal: No joint deformity of hands, neck, or knees noted. Good ROM of all visible joints during exam. Gait & balance normal on observation within exam room. Psychiatric: Mood and affect normal. Judgment normal. Ordered thought content. RESULTS Imaging: No results found. Labs: No results found for this or any previous visit (from the past 672 hour(s)). ASSESSMENT: ICD-10-CM 1. Encounter to establish care with new doctor Z76.89 2. Essential hypertension I10 3. Mixed hyperlipidemia E78.2 4. Tobacco use disorder F17.200 5. Chronic obstructive pulmonary disease, unspecified COPD type J44.9 PLAN: Continue current medications unchanged. Medications were reviewed with the patient. . Advised the patient to quit smoking. Will check comprehensive metabolic panel, lipid panel and CBC prior to next visit. . We'll schedule the patient for screening colonoscopy when he comes back for his next visit.Will get the records from his previous physician. Patient to follow up with welding process engineer Dr. Watson as scheduled. Return in 2 months or sooner when necessary. Orders Placed This Encounter COMPREHENSIVE METABOLIC PANEL LIPID PANEL W CALCULATED LDL CBC, EDIF, PLATELET Discontinued Medications: Medications Discontinued During This Encounter Medication Reason Acetaminophen-Caffeine (EXCEDRIN ASPIRIN FREE PO) Ineffective ketorolac 10 MG Tab Therapy completed Requested Prescriptions No prescriptions requested or ordered in this encounter There are no Patient Instructions on file for this visit. Signed by: Charleen Mendoza MD documented in this encounter* Charleen Mendoza MD - 09/22/2019 11:30 AM EST PROGRESS NOTE SUBJECTIVE HPI The patient is a 74 y.o.male who presents today for hypertension, COPD and hyperlipidemia months after establishing as a new patient to this practice. Patient complains of cough productive with lightgreen to yellow mucus with tightness in his chest when he coughs. Patient also has some soreness when he coughs. Patient was evaluated at [facility] on 08/19/2019 for productive cough and shortness of breath and the chest x-ray that was done at that time showed questionable 10 mm right lower lung nodule versus composite. COPD type changes. No consolidative pneumonia.. Patient was discharged to home with prednisone on a tapering dose and was instructed to follow-up with primary care physician. Patient continues to smoke half a pack now previously was smoking 2 packs per day and he startedto smoke at the age of 10. Denies any chest pain, palpitation, headache, near syncope or syncope. Review of Systems Constitutional: Negative for fever, chills, no fatigue. HENT: Negative for hearing loss, ear pain, nosebleeds, congestion, sore throat, rhinorrhea and sinus pain. Eyes: Negative for blurred vision, double vision, eye pain, eye discharge, eye redness and eye watering. Cardiovascular: Negative for chest pain, dyspnea on exertion, palpitations, orthopnea, claudication, leg swelling and PND. Respiratory: Negative for cough. No shortness of breath, wheezing or stridor. Gastrointestinal: Negative for heartburn, nausea, vomiting, abdominal pain, diarrhea, constipation,blood in stool, melena. Genitourinary: Negative for bladder incontinence, dysuria, urgency, polyuria, frequency, hematuria. Musculoskeletal: Negative for myalgias, back pain, joint pain and falls. Neurological: Negative for dizziness, tingling, sensory change, speech change, focal weakness, seizures, loss of consciousness and headaches. OBJECTIVE Physical Exam Blood pressure 122/78, pulse 66, temperature 98.3 F (36.8 C), resp. rate 16, height 1.88 m (6' 2 ),weight 71.2 kg (157 lb), SpO2 96 %., Body mass index is 20.16 kg/m . Constitutional:alert, well appearing, and in no distress, oriented to person, place, and time and normal appearing weight. Eyes: Reactive pupils, no conjunctival injection, no jaundice. Nose: No nasal congestion/bogginess, no sinus tenderness Mouth/Throat: Moist mucous membranes. No pharyngeal erythema Neck: Neck supple. Thyroid not enlarged. No anterior cervical adenopathy Chest: Decreased breath sounds on auscultation bilaterally, decreased chest expansion & respiratory effort.. Occasional scattered rhonchi and wheezing noted but no rales. Heart:normal rate, regular rhythm, normal S1, S2, no murmurs, rubs, clicks or gallops Abd:abdomen is soft without significant tenderness, masses, organomegaly or guarding. Ext:no peripheral edema and no swelling/erythema/tenderness Neurological: Alert. Extraocular movements intact, normal facial movements. Grossly normal strengthnoted during exam movements. Normal speech. Musculoskeletal: No joint deformity of hands, neck, or knees noted. Good ROM of all visible joints during exam. Gait & balance normal on observation within exam room. Psychiatric: Mood and affect normal. Judgment normal. Ordered thought content. RESULTS Imaging: No results found. Labs: No results found for this or any previous visit (from the past 672 hour(s)). ASSESSMENT: ICD-10-CM 1. Nodule of lower lobe of right lung R91.1 2. Chronic obstructive pulmonary disease, unspecified COPD type J44.9 3. Chronic bronchitis, unspecified chronic bronchitis type J42 4. Tobacco use disorder F17.200 5. Essential hypertension I10 PLAN: Start Doxycycline 100 mg 1 by mouth 3 times a day for 10 days.Continue current medications unchanged including the inhalers and Spiriva Respimat. Medications were reviewed with the patient. Will get CT scan of the chest without IV contrast to further evaluate the questionable nodule in his right lower lobe with his long history of smoking. Advised the patient to quit smoking. We'll schedule the patient for screening colonoscopy when he comes back for his next visit. Patient to follow up with welding process engineer Dr. Watson as scheduled. Return in 2 to 3 weeks follow-up of CT scan of chest or soonerwhen necessary. Orders Placed This Encounter CT CHEST WITHOUT CONTRAST tiotropium (Spiriva Respimat) 2.5 MCG/ACT Aero Soln inhaler doxycycline hyclate 100 MG capsule midodrine 5 MG tablet metoprolol 25 MG tab regular release budesonide-formoterol (Symbicort) 160-4.5 mcg/puff Aerosol inhaler atorvastatin 10 MG tablet albuterol 108 (90 Base) MCG/ACT Aero Soln inhaler albuterol (2.5 MG/3ML) 0.083% inhalation solution Discontinued Medications: Medications Discontinued During This Encounter Medication Reason midodrine 5 MG Tab tablet Reorder metoprolol 25 MG tab regular release Reorder budesonide-formoterol (SYMBICORT) 160-4.5 mcg/puff Aerosol inhaler Reorder atorvastatin 10 MG Tab tablet Reorder albuterol 108 (90 Base) MCG/ACT Aero Soln inhaler Reorder albuterol (2.5 MG/3ML) 0.083% inhalation solution Reorder Requested Prescriptions Signed Prescriptions Disp Refills tiotropium (Spiriva Respimat) 2.5 MCG/ACT Aero Soln inhaler 1 Inhaler 2 Sig: Inhale 2 puffs daily. doxycycline hyclate 100 MG capsule 20 capsule 0 Sig: Take 1 capsule by mouth 2 times daily for 10 days. midodrine 5 MG tablet 90 tablet 1 Sig: Take 1 tablet by mouth daily. metoprolol 25 MG tab regular release 90 tablet 1 Sig: Take 0.5 tablets by mouth 2 times daily. budesonide-formoterol (Symbicort) 160-4.5 mcg/puff Aerosol inhaler 1 Inhaler 0 Sig: Inhale 2 puffs every 12 hours. atorvastatin 10 MG tablet 90 tablet 1 Sig: Take 1 tablet by mouth daily. albuterol 108 (90 Base) MCG/ACT Aero Soln inhaler 1 Inhaler 2 Sig: Inhale 1-2 puffs every 6 hours as needed for Shortness of Breath or Wheezing. albuterol (2.5 MG/3ML) 0.083% inhalation solution 20 vial 3 Sig: Take 3 mL by nebulization every 6 hours as needed. There are no Patient Instructions on file for this visit. Signed by: Charleen Mendoza MD documented in this encounter* Charleen Mendoza MD - 04/17/2020 11:30 AM EDT PROGRESS NOTE SUBJECTIVE HPI The patient is a 75 y.o.male who presents today for hypertension, COPD and hyperlipidemia. Patient says that he is getting some dizziness intermittently especially when he he rises from sitting to standing or from lying to sitting. Patient also has been having leg cramps and they are worse at nightand wakes him up from sleep. Patient says he gets some relief temporarily when he gets up and walksaround or moving his legs.. He also notices that his legs moving on their own while he is sleeping.Following that he has muscle aches during the day. Patient also says that when the weather is hot and humid he has some trouble breathing and also the masks restricts him from breathing easily. Patient continues to smoke half a pack now previously was smoking 2 packs per day and he started to smokeat the age of 10. Denies any chest pain, palpitation, headache, near syncope or syncope. Review of Systems Constitutional: Negative for fever, chills, no fatigue. HENT: Negative for hearing loss, ear pain, nosebleeds, congestion, sore throat, rhinorrhea and sinus pain. Eyes: Negative for blurred vision, double vision, eye pain, eye discharge, eye redness and eye watering. Cardiovascular: Negative for chest pain, dyspnea on exertion, palpitations, orthopnea, claudication, leg swelling and PND. Respiratory: Negative for cough. No shortness of breath, wheezing or stridor. Gastrointestinal: Negative for heartburn, nausea, vomiting, abdominal pain, diarrhea, constipation,blood in stool, melena. Genitourinary: Negative for bladder incontinence, dysuria, urgency, polyuria, frequency, hematuria. Musculoskeletal: Negative for myalgias, back pain, joint pain and falls. Neurological: Negative for dizziness, tingling, sensory change, speech change, focal weakness, seizures, loss of consciousness and headaches. OBJECTIVE Physical Exam Blood pressure (!) 132/100, pulse 64, temperature 97.4 F (36.3 C), resp. rate 16, height 1.829 m (6'), weight 67.4 kg (148 lb 11.2 oz), SpO2 97 %., Body mass index is 20.17 kg/m . Constitutional:alert, well appearing, and in no distress, oriented to person, place, and time and normal appearing weight. Eyes: Reactive pupils, no conjunctival injection, no jaundice. Nose: No nasal congestion/bogginess, no sinus tenderness Neck: Neck supple. Thyroid not enlarged. No anterior cervical adenopathy Chest: Decreased breath sounds on auscultation bilaterally, decreased chest expansion & respiratory effort.. Occasional scattered rhonchi and wheezing noted but no rales. Heart:normal rate, regular rhythm, normal S1, S2, no murmurs, rubs, clicks or gallops Abd:abdomen is soft without significant tenderness, masses, organomegaly or guarding. Ext:no peripheral edema and no swelling/erythema/tenderness Neurological: Alert. Extraocular movements intact, normal facial movements. Grossly normal strengthnoted during exam movements. Normal speech. Musculoskeletal: No joint deformity of hands, neck, or knees noted. Good ROM of all visible joints during exam. Gait & balance normal on observation within exam room. Psychiatric: Mood and affect normal. Judgment normal. Ordered thought content. RESULTS Imaging: No results found. Labs: No results found for this or any previous visit (from the past 672 hour(s)). ASSESSMENT: ICD-10-CM 1. Restless leg syndrome G25.81 2. Essential hypertension I10 3. Mixed hyperlipidemia E78.2 4. Chronic obstructive pulmonary disease, unspecified COPD type J44.9 5. Tobacco use disorder F17.200 6. Screening for malignant neoplasm of prostate Z12.5 PLAN: Start Pramipexole 0.125 milligrams 1 tablet 2-3 hours before bedtime for restless leg syndrome.Continue current medications unchanged including the inhalers and Spiriva Respimat. Medications were reviewed with the patient. Advised the patient to quit smoking. We'll schedule the patient for screening colonoscopy when he comes back for his next visit. Patient to follow up with welding process engineer Dr. Watson as scheduled. . We will check comprehensive metabolic panel, CBC, lipid panel and PSA prior to next visit. Return in 3 months or sooner when necessary. Orders Placed This Encounter COMPREHENSIVE METABOLIC PANEL CBC, EDIF, PLATELET LIPID PANEL W CALCULATED LDL PSA, SCREENING albuterol 108 (90 Base) MCG/ACT Aero Soln inhaler atorvastatin 10 MG tablet budesonide-formoterol (Symbicort) 160-4.5 mcg/puff Aerosol inhaler midodrine 5 MG tablet tiotropium (Spiriva Respimat) 2.5 MCG/ACT Aero Soln inhaler Pramipexole Dihydrochloride 0.125 MG tablet metoprolol 25 MG tab regular release Discontinued Medications: Medications Discontinued During This Encounter Medication Reason atorvastatin 10 MG tablet Reorder albuterol 108 (90 Base) MCG/ACT Aero Soln inhaler Reorder budesonide-formoterol (Symbicort) 160-4.5 mcg/puff Aerosol inhaler Reorder metoprolol 25 MG tab regular release Reorder midodrine 5 MG tablet Reorder tiotropium (Spiriva Respimat) 2.5 MCG/ACT Aero Soln inhaler Reorder Requested Prescriptions Signed Prescriptions Disp Refills albuterol 108 (90 Base) MCG/ACT Aero Soln inhaler 1 Inhaler 2 Sig: Inhale 1-2 puffs every 6 hours as needed for Shortness of Breath or Wheezing. atorvastatin 10 MG tablet 90 tablet 0 Sig: Take 1 tablet by mouth daily. budesonide-formoterol (Symbicort) 160-4.5 mcg/puff Aerosol inhaler 1 Inhaler 2 Sig: Inhale 2 puffs every 12 hours. midodrine 5 MG tablet 90 tablet 0 Sig: Take 1 tablet by mouth daily. tiotropium (Spiriva Respimat) 2.5 MCG/ACT Aero Soln inhaler 1 Inhaler 2 Sig: Inhale 2 puffs daily. Pramipexole Dihydrochloride 0.125 MG tablet 30 tablet 2 Sig: Take 1 tab 3 to 4 hours prior to bedtime metoprolol 25 MG tab regular release 180 tablet 0 Sig: Take 0.5 tablets by mouth 2 times daily. There are no Patient Instructions on file for this visit. Signed by: Charleen Mendoza MD documented in this encounter* Roberto Carlos Townsend MD - 05/21/2020 3:45 PM EST BESSIE Breaux is a 75 y.o. male being seen today for COPD evaluation. He was diagnosed with Emphysema over 13 years ago and uses oxygen 3 LPM continuously at home which he uses it mainly at night. He takes DuoNeb, Albuterol HFA, Symbicort (160-4.5 mcg) and Spiriva at home. He has shortness of breath with exertion which has been progressively worse over the years. He has a chronic cough productive of green looking mucus. Occasionally he stated that he sees some red spot in his phlegm. He has wheezing. He was at [facility] recently with acute exacerbation of his COPD and was discharged home with Prednisone taper and antibiotic. He is currently feeling better. He smokes about 1 pack over 3 days. He has over 100 pack year history of smoking. 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 He denied any exposure to Asbestos or TB. CXR from 05/03/2020 showed no acute process. His CT chest from 09/30/2019 showed pulmonary emphysema. Past Medical History: Diagnosis Date COPD (chronic obstructive pulmonary disease) Emphysema lung Hypertension Lung disease Pacemaker Past Surgical History: Procedure Laterality Date AAA REPAIR 01/31/2016 CORONARY STENT PLACEMENT 1997 HEART CATHETERIZATION PACEMAKER PLACEMENT RELEASE CARPAL TUNNEL Right Allergies Allergen Reactions Penicillins Hives and Swelling Tamsulosin Other reaction(s): Other (See Comments) Makes him blackout Clopidogrel Itching Outpatient Medications Prior to Visit Medication Sig Dispense Refill albuterol (2.5 MG/3ML) 0.083% inhalation solution Take 3 mL by nebulization every 6 hours as needed. 20 vial 3 albuterol 108 (90 Base) MCG/ACT Aero Soln inhaler Inhale 1-2 puffs every 6 hours as needed for Shortness of Breath or Wheezing. 1 Inhaler 2 Aspirin (ECOTRIN LOW STRENGTH) [address] tablet Take 1 tablet by mouth daily. 90 tablet 3 atorvastatin 10 MG tablet Take 1 tablet by mouth daily. 90 tablet 0 budesonide-formoterol (Symbicort) 160-4.5 mcg/puff Aerosol inhaler Inhale 2 puffs every 12 hours. 1Inhaler 2 ipratropium-albuterol 0.5-2.5 (3) MG/3ML nebulizer solution Take 3 mL by nebulization 4 times daily. 30 Each 0 midodrine 5 MG tablet Take 1 tablet by mouth daily. 90 tablet 0 nitroGLYCERIN 0.[address] 1 tablet under tongue every 5 minutes as needed for Chest pain. max = 3 doses. If CP persists after 3rd dose, call 911 25 tablet 0 Pramipexole Dihydrochloride 0.125 MG tablet Take 1 tab 3 to 4 hours prior to bedtime 30 tablet 2 tiotropium (Spiriva Respimat) 2.5 MCG/ACT Aero Soln inhaler Inhale 2 puffs daily. 1 Inhaler 2 dicyclomine 10 MG capsule Take 1 capsule by mouth 3 times daily as needed for Abdominal Spasms. (Patient not taking: Reported on 05/21/2020) 15 capsule 0 guaiFENesin 600 MG Tab SR 12 HR tablet SR Take 1 tablet by mouth 2 times daily as needed. (Patient not taking: Reported on 09/22/2019) 30 tablet 0 metoprolol 25 MG tab regular release Take 0.5 tablets by mouth 2 times daily. (Patient not taking: Reported on 05/21/2020) 180 tablet 0 ondansetron 4 MG Tab Dispersible tablet Take 1 tablet by mouth every 8 hours as needed for Nausea for up to [address] on tongue (Patient not taking: Reported on 05/21/2020) 12 tablet 0 predniSONE 20 MG tablet Take 1 tablet by mouth 2 times daily. (Patient not taking: Reported on 05/21/2020) 20 tablet 0 No facility-administered medications prior to visit. Family History Problem Relation Age of Onset Dysrhythmia Mother Dysrhythmia Brother Myocardial Infarction Brother Social History Socioeconomic History Marital status: Single Spouse name: Not on file Number of children: Not on file Years of education: Not on file Highest education level: Not on file Occupational History Not on file Social Needs Financial resource strain: Not on file Food insecurity Worry: Not on file Inability: Not on file Transportation needs Medical: Not on file Non-medical: Not on file Tobacco Use Smoking status: Current Every Day Smoker Packs/day: 0.25 Smokeless tobacco: Never Used Substance and Sexual Activity Alcohol use: No Drug use: No Sexual activity: Not on file Lifestyle Physical activity Days per week: Not on file Minutes per session: Not on file Stress: Not on file Relationships Social connections Talks on phone: Not on file Gets together: Not on file Attends spiritism service: Not on file Active member of club or organization: Not on file Attends meetings of clubs or organizations: Not on file Relationship status: Not on file Intimate partner violence Fear of current or ex partner: Not on file Emotionally abused: Not on file Physically abused: Not on file Forced sexual activity: Not on file Other Topics Concern Service Not Asked Blood Transfusions Not Asked Caffeine Concern Not Asked Occupational Exposure Not Asked Hobby Hazards Not Asked Sleep Concern Not Asked Stress Concern Not Asked Weight Concern Not Asked Special Diet Not Asked Back Care Not Asked Exercise Not Asked Bike Helmet Not Asked Seat Belt Not Asked Domestic Violence No Social History Narrative Not on file Project Consultant Assessment Oxygen Use- 3L at night Most Recent Ct Thorax- 09/30/19 Symptoms include : Increase in shortness of breath- Yes Dyspnea upon Exertion-Yes Dyspnea at rest-Occasional Chest pain-Yes goes across his chest. Cough-All the time, productive yellow-green color Wheezing-Yes Swelling LE-No Hemoptysis- Occasional when coughing States he's woke up in the morning and can barely breath. Gets dizzy often. Was in bed sleeping andwoke up and couldn't breath so he went to ER. Review of Systems Constitutional: Positive for fatigue. Negative for activity change, appetite change, chills and fever. HENT: Positive for voice change. Negative for congestion, ear discharge, ear pain, hearing loss, nosebleeds and sore throat. Eyes: Negative for photophobia, pain, discharge and redness. Respiratory: Positive for cough, shortness of breath and wheezing. Negative for chest tightness. Cardiovascular: Positive for chest pain. Negative for palpitations and leg swelling. Gastrointestinal: Negative for abdominal pain, blood in stool, constipation, diarrhea and vomiting. Endocrine: Negative for cold intolerance, heat intolerance, polydipsia, polyphagia and polyuria. Genitourinary: Positive for urgency. Negative for dysuria, frequency and hematuria. Musculoskeletal: Positive for arthralgias and back pain. Negative for joint swelling, neck pain andneck stiffness. Skin: Negative for color change, rash and wound. Allergic/Immunologic: Negative for environmental allergies, food allergies and immunocompromised state. Neurological: Positive for dizziness. Negative for seizures, syncope, numbness and headaches. Hematological: Negative for adenopathy. Bruises/bleeds easily. Psychiatric/Behavioral: Negative for agitation, decreased concentration and hallucinations. The patient is not nervous/anxious. Physical Examination: Vitals: 05/21/20 1555 BP: 110/76 Pulse: 80 Resp: 20 SpO2: 94% Weight: 69.2 kg (152 lb 8 oz) Height: 1.88 m (6' 2 ) Physical Exam Vitals signs and nursing note reviewed. Constitutional: General: He is not in acute distress. Appearance: He is not diaphoretic. HENT: Head: Normocephalic and atraumatic. Right Ear: External ear normal. Left Ear: External ear normal. Nose: Nose normal. Eyes: General: Right eye: No discharge. Left eye: No discharge. Conjunctiva/sclera: Conjunctivae normal. Pupils: Pupils are equal, round, and reactive to light. Neck: Musculoskeletal: Normal range of motion and neck supple. Vascular: No JVD. Cardiovascular: Rate and Rhythm: Normal rate and regular rhythm. Heart sounds: Normal heart sounds. No murmur. No friction rub. No gallop. Pulmonary: Effort: Pulmonary effort is normal. No respiratory distress. Breath sounds: No stridor. Decreased breath sounds present. No wheezing. Abdominal: General: Bowel sounds are normal. There is no distension. Palpations: Abdomen is soft. Tenderness: There is no abdominal tenderness. Musculoskeletal: Normal range of motion. General: No deformity. Skin: General: Skin is warm and dry. Neurological: Mental Status: He is alert and oriented to person, place, and time. Psychiatric: Judgment: Judgment normal. IMPRESSION AND PLAN: - Emphysema - SOB - Smoking history * Patient will continue with Spiriva, Symbicort and Albuterol. * Patient was advised to stop using his DuoNeb while using Spiriva and instead uses Albuterol neb. * Patient was advised to get a Pneumococcal and Influenza vaccines. * Patient was advised to exercise precaution regarding COVID pandemic * Will get a PFT and 6MWT. * Rita Park LPN - 05/21/2020 3:45 PM EST Project Consultant Assessment Oxygen Use- 3L at night Most Recent Ct Thorax- 09/30/19 Symptoms include : Increase in shortness of breath- Yes Dyspnea upon Exertion-Yes Dyspnea at rest-Occasional Chest pain-Yes goes across his chest. Cough-All the time, productive yellow-green color Wheezing-Yes Swelling LE-No Hemoptysis- Occasional when coughing States he's woke up in the morning and can barely breath. Gets dizzy often. Was in bed sleeping andwoke up and couldn't breath so he went to ER. documented in this encounter* Charleen Mendoza MD - 06/21/2020 11:30 AM EST PROGRESS NOTE SUBJECTIVE HPI The patient is a 75 y.o.male who presents today for follow up after he was seen twice at [facility] ED on 06/06/2020 for possible seizure. Patient started having vigorous shaking on 06/05/2020 while he was standing and he was helped to sit on a chair and at that time the family noticed that he last consciousness for about 2 minutes. Patient had evaluation including CT scan of the brain which showed no acute abnormality. Patient was discharged to home and a referral was made with neurologist for further evaluation. Patient was again seen at emergency room on 06/19/2020 as he developed right-sided chest pain of acute onset and it was worse with coughing and that taking deep breath. He had aCT of the chest, PE study and there was no pulmonary embolus and he was diagnosed with costochondritis and bronchitis. Patient was discharged to home with the azithromycin, prednisone and benzonatatefor cough. Patient says he is doing better now but the occasionally has some chest tightness Patient continues to smoke 5 cigarettes per day. Review of Systems Constitutional: Negative for fever, chills, no fatigue. HENT: Negative for hearing loss, ear pain, nosebleeds, congestion, sore throat, rhinorrhea and sinus pain. Eyes: Negative for blurred vision, double vision, eye pain, eye discharge, eye redness and eye watering. Cardiovascular: Negative for chest pain, dyspnea on exertion, palpitations, orthopnea, claudication, leg swelling and PND. Respiratory: Negative for cough. No shortness of breath, wheezing or stridor. Gastrointestinal: Negative for heartburn, nausea, vomiting, abdominal pain, diarrhea, constipation,blood in stool, melena. Genitourinary: Negative for bladder incontinence, dysuria, urgency, polyuria, frequency, hematuria. Musculoskeletal: Negative for myalgias, back pain, joint pain and falls. Neurological: Negative for dizziness, tingling, sensory change, speech change, focal weakness, seizures, loss of consciousness and headaches. OBJECTIVE Physical Exam Blood pressure 140/80, pulse 62, temperature 99.6 F (37.6 C), resp. rate 18, height 1.88 m (6' 2 ),weight 72.2 kg (159 lb 1.6 oz), SpO2 95 %., Body mass index is 20.43 kg/m . Constitutional:alert, well appearing, and in no distress, oriented to person, place, and time and normal appearing weight. Eyes: Reactive pupils, no conjunctival injection, no jaundice. Nose: No nasal congestion/bogginess, no sinus tenderness Neck: Neck supple. Thyroid not enlarged. No anterior cervical adenopathy Chest: Decreased breath sounds on auscultation bilaterally, decreased chest expansion & respiratory effort.. Occasional scattered rhonchi and wheezing noted but no rales. Heart:normal rate, regular rhythm, normal S1, S2, no murmurs, rubs, clicks or gallops Abd:abdomen is soft without significant tenderness, masses, organomegaly or guarding. Ext:no peripheral edema and no swelling/erythema/tenderness Neurological: Alert. Extraocular movements intact, normal facial movements. Grossly normal strengthnoted during exam movements. Normal speech. Musculoskeletal: No joint deformity of hands, neck, or knees noted. Good ROM of all visible joints during exam. Gait & balance normal on observation within exam room. Psychiatric: Mood and affect normal. Judgment normal. Ordered thought content. RESULTS Imaging: Labs: Recent Results (from the past 672 hour(s)) [facility] 1 - NASOPHARYNGEAL Collection Time: 06/01/20 9:10 AM Specimen: NASOPHARYNGEAL; Fluid/Swab Result Value Ref Range SARS COV 2 RNA, QL REAL TIME RT PCR NOT DETECTED NOT DETECTED NARRATIVE -1 This test was performed using isothermal CHADD and has been approved as Emergency Use Authorization (EUA) for the qualitative detection [id number] nucleic acid. CBC, EDIF, PLATELET Collection Time: 06/06/20 1:00 PM Result Value Ref Range WBC (WHITE BLOOD COUNT) 4.9 3.6 - 11.0 10*3/uL RBC 4.06 4.0 - 6.1 10*6/uL HEMOGLOBIN (HGB) 12.7 (L) 14.0 - 18.0 G/DL HEMATOCRIT (HCT) 38.0 (L) 42.0 - 52.0 % MEAN CELL VOLUME 93.6 80.0 - 100.0 FL Mean Cell HGB 31.2 26.0 - 35.0 PG MEAN CELL HGB CONCENTRATION 33.3 27.0 - 37.0 G/DL RBC DISTRIBUTION 15.7 (H) 11.5 - 14.5 % PLATELET COUNT 184 130.0 - 400.0 10*3/uL MEAN PLATELET VOLUME 8.0 7.4 - 11.0 FL DIFFERENTIAL TYPE AUTO DIFF % NEUTROPHILS 70.5 37.0 - 75.0 % LYMPHOCYTE 17.8 (L) 20.0 - 55.0 % MONOCYTE % 7.3 0.0 - 10.0 % EOSINOPHIL % 2.8 0.0 - 11.0 % BASOPHIL % 1.6 0.0 - 2.0 % Absolute Neutrophil Count 3.4 1.4 - 6.5 10*3/uL LYMPHOCYTES, ABSOLUTE 0.90 (L) 1.2 - 3.4 10*3/uL MONOCYTES, ABSOLUTE 0.4 0.0 - 0.7 10*3/uL ABSOLUTE EOSINOPHIL COUNT 0.10 0.0 - 0.7 10*3/uL ABSOLUTE BASOPHIL COUNT 0.1 0.0 - 0.2 10*3/uL CHEM 7 (LYTES,BUN,CREA,GLUC) Collection Time: 06/06/20 1:00 PM Result Value Ref Range GLUCOSE 88 70 - 100 MG/DL BUN 25 (H) 7 - 20 MG/DL CREATININE SERUM 1.19 0.66 - 1.25 MG/DL SODIUM 141 136 - 145 MMOL/L POTASSIUM 4.2 3.5 - 5.1 MMOL/L CHLORIDE 106 98 - 107 MMOL/L CARBON DIOXIDE (CO2) 27 22 - 30 MMOL/L ESTIMATED GFR, NON AMER >60 ml/min/1.73sq.m ESTIMATED GFR, >60 ml/min/1.73sq.m GFR COMMENT Average GFR for 70+ years old = 75. TROPONIN I, HIGH SENSITIVITY Collection Time: 06/06/20 1:00 PM Result Value Ref Range TROPONIN I, HIGH SENSITIVITY 3 0 - 20 pg/mL AMMONIA Collection Time: 06/06/20 1:00 PM Result Value Ref Range AMMONIA 20 11 - 35 UMOL/L URINALYSIS, MACRO Collection Time: 06/06/20 2:08 PM Result Value Ref Range COLOR, URINE YELLOW YELLOW APPEARANCE, URINE SLIGHTLY CLOUDY (A) CLEAR SPECIFIC GRAVITY, URINE 1.025 1.010 - 1.025 PH URINE 7.0 5.0 - 7.0 PROTEIN, URINE NEGATIVE NEGATIVE mg/dl GLUCOSE, URINE NEGATIVE NEGATIVE mg/dl KETONES, URINE NEGATIVE NEGATIVE mg/dl BILIRUBIN, URINE NEGATIVE NEGATIVE BLOOD, URINE DIPSTICK NEGATIVE NEGATIVE NITRITES, URINE POSITIVE (A) NEGATIVE UROBILINOGEN, URINE 1.0 0.2 - 1.0 E.U./dL LEUKOCYTE ESTERASE, URINE SMALL (A) NEGATIVE TOXICOLOGY DRUG SCREEN, URINE Collection Time: 06/06/20 2:08 PM Result Value Ref Range CANNABINOIDS (MARIJUANA) NEGATIVE NEGATIVE NG/ML PHENCYCLIDINE NEGATIVE NEGATIVE NG/ML Cocaine Metabolite NEGATIVE NEGATIVE NG/ML METHAMPHETAMINE NEGATIVE NEGATIVE NG/ML Opiates NEGATIVE NEGATIVE NG/ML AMPHETAMINE NEGATIVE NEGATIVE NG/ML BENZODIAZEPINES NEGATIVE NEGATIVE NG/ML TRICYCLIC ANTIDEPRESSANTS SCREEN, URINE NEGATIVE NEGATIVE NG/ML METHADONE NEGATIVE NEGATIVE NG/ML Barbiturate NEGATIVE NEGATIVE NG/ML Oxycodone NEGATIVE NEGATIVE NG/ML PROPOXYPHENE NEGATIVE NEGATIVE NG/ML BUPRENORPHINE NEGATIVE NEGATIVE NG/ML URINE MICROSCOPIC Collection Time: 06/06/20 2:08 PM Result Value Ref Range WBC, URINE '5 TO 10 NEGATIVE /HPF RBC, URINE NEGATIVE NEGATIVE /HPF Epithelial Cells UA 1 TO 5 /HPF Mucus NEGATIVE NEGATIVE BACTERIA, URINE 3+ (A) NEGATIVE CRYSTALS, URINE NONE NONE CASTS, URINE NONE NONE /LPF COMMENT, URINE REFLEX CULTURE PER ESTABLISHED CRITERIA. URINE CULTURE Collection Time: 06/06/20 2:08 PM Result Value Ref Range SPECIMEN DESCRIPTION URINE CLEAN CATCH UA Dipstick LEUKOCYTE POSITIVE RESULT-CULT ESCHERICHIA COLI REPORT STATUS 06/08/2020 ORGANISM IDENTIFIED ESCHERICHIA COLI Susceptibility Escherichia coli - LYNNETTE (UG/ML/INTERP)* Ampicillin >=32 RESISTANT Resistant Ampicillin/Sulbactam (c) >=32 RESISTANT Resistant Ceftriaxone <=1 SUSCEPTIBLE Sensitive Cefazolin <=4 SUSCEPTIBLE Sensitive Imipenem <=0.25 SUSCEPTIBLE Sensitive Gentamicin 8 INTERMEDIATE Intermediate Tobramycin 8 INTERMEDIATE Intermediate Trimethoprim/Sulfamethoxazol >=320 RESISTANT Resistant Amoxicillin/Clavulanic A 16 INTERMEDIATE Intermediate Nitrofurantoin <=16 SUSCEPTIBLE Sensitive Piperacillin/Tazobactam(d) <=4 SUSCEPTIBLE Sensitive Levofloxacin >=8 RESISTANT Resistant ESBL NEGATIVE Susceptible Ceftazidime <=1 SUSCEPTIBLE Sensitive * ESCHERICHIA COLI CBC, EDIF, PLATELET Collection Time: 06/19/20 10:19 AM Result Value Ref Range WBC (WHITE BLOOD COUNT) 6.3 3.6 - 11.0 10*3/uL RBC 3.84 (L) 4.0 - 6.1 10*6/uL HEMOGLOBIN (HGB) 12.2 (L) 14.0 - 18.0 G/DL HEMATOCRIT (HCT) 36.1 (L) 42.0 - 52.0 % MEAN CELL VOLUME 94.0 80.0 - 100.0 FL Mean Cell HGB 31.7 26.0 - 35.0 PG MEAN CELL HGB CONCENTRATION 33.7 27.0 - 37.0 G/DL RBC DISTRIBUTION 15.1 (H) 11.5 - 14.5 % PLATELET COUNT 173 130.0 - 400.0 10*3/uL MEAN PLATELET VOLUME 8.2 7.4 - 11.0 FL DIFFERENTIAL TYPE AUTO DIFF % NEUTROPHILS 73.8 37.0 - 75.0 % LYMPHOCYTE 13.3 (L) 20.0 - 55.0 % MONOCYTE % 7.7 0.0 - 10.0 % EOSINOPHIL % 3.8 0.0 - 11.0 % BASOPHIL % 1.4 0.0 - 2.0 % Absolute Neutrophil Count 4.7 1.4 - 6.5 10*3/uL LYMPHOCYTES, ABSOLUTE 0.80 (L) 1.2 - 3.4 10*3/uL MONOCYTES, ABSOLUTE 0.5 0.0 - 0.7 10*3/uL ABSOLUTE EOSINOPHIL COUNT 0.20 0.0 - 0.7 10*3/uL ABSOLUTE BASOPHIL COUNT 0.1 0.0 - 0.2 10*3/uL COMPREHENSIVE METABOLIC PANEL Collection Time: 06/19/20 10:19 AM Result Value Ref Range GLUCOSE 102 (H) 70 - 100 MG/DL BUN 30 (H) 7 - 20 MG/DL CREATININE SERUM 1.30 (H) 0.66 - 1.25 MG/DL SODIUM 139 136 - 145 MMOL/L POTASSIUM 4.5 3.5 - 5.1 MMOL/L CHLORIDE 106 98 - 107 MMOL/L CALCIUM 9.5 8.4 - 10.2 MG/DL PROTEIN, TOTAL 7.0 6.3 - 8.2 GM/DL ALBUMIN 4.1 3.5 - 5.0 G/dl BILIRUBIN, TOTAL 0.7 0.2 - 1.2 MG/DL AST 15 15 - 41 IU/L ALKALINE PHOSPHATASE 62 38 - 126 IU/L CARBON DIOXIDE (CO2) 26 22 - 30 MMOL/L A/G Ratio 1.4 1.3 - 2.2 RATIO ALT 11 (L) 17 - 63 IU/L ESTIMATED GFR, NON AMER 57 ml/min/1.73sq.m ESTIMATED GFR, >60 ml/min/1.73sq.m GFR COMMENT Average GFR for 70+ years old = 75. SEDIMENTATION RATE, AUTOMATED Collection Time: 06/19/20 10:19 AM Result Value Ref Range SEDIMENTATION RATE AUTOMATED 18 0 - 20 MM/HR D-DIMER,QUANTITATIVE Collection Time: 06/19/20 10:19 AM Result Value Ref Range D-DIMER 1.39 (HH) <0.56 mg/L FEU C REACTIVE PROTEIN Collection Time: 06/19/20 10:19 AM Result Value Ref Range C-REACTIVE PROTEIN 9.0 0 - 10.0 MG/L TROPONIN I, HIGH SENSITIVITY Collection Time: 06/19/20 10:19 AM Result Value Ref Range TROPONIN I, HIGH SENSITIVITY 4 0 - 20 pg/mL [facility] LAB 1 - NASOPHARYNGEAL Collection Time: 06/19/20 10:36 AM Specimen: NASOPHARYNGEAL; Fluid/Swab Result Value Ref Range SARS COV 2 RNA, QL REAL TIME RT PCR NOT DETECTED NOT DETECTED NARRATIVE -1 This test was performed using isothermal CHADD and has been approved as Emergency Use Authorization (EUA) for the qualitative detection [id number] nucleic acid. ASSESSMENT: No diagnosis found. PLAN: Review of the records from [facility] ED regarding patient's evaluation on 06/06/2020 and 06/19/2020,including their management, labs, imaging, discharge medications and discharge instructions. Continue current medications including all inhalers as prescribed. Patient to rinse his mouth after taking the Symbicort. . Continue and complete the antibiotic and prednisone as prescribed at the ED on 06/19/2020. Medications were reviewed with the patient. Advised the patient to quit smoking. Patient to follow-up with welding process engineer Dr. Watson as scheduled for 06/22/2020. Patient to follow-up with neurologist Dr. Irwin on 06/25/2020. Patient also to see pulmonary on 07/09/2020 as scheduled. We will check iron, iron-binding capacity/transferrin, ferritin, vitamin B12 and serum folate tofurther evaluate the anemia. We'll get cologuard test as the patient as the patient un willing to have colonoscopy. Return in 3 months or sooner when necessary. No orders of the defined types were placed in this encounter. Discontinued Medications: There are no discontinued medications. Requested Prescriptions No prescriptions requested or ordered in this encounter There are no Patient Instructions on file for this visit. Signed by: Charleen Mendoza MD documented in this encounter* Jovan Irwin MD - 06/25/2020 2:20 PM EST CC: Seizures? History of Present Illness Mr. Breaux is a 75 year-old, right-handed male referred for possible seizures. He is accompanied by his granddaughter. The patient and granddaughter both explain that he has episodes only upon standing up. He will get dizzy and sometimes get weak to the point where he cannot hold himself up. Apparently, he has had several of these over the past 6+ months. Some may have actually included shaking and complete loss ofawareness for a short timeframe. The patient denies any auras or feelings before the episodes. He reports that he gets dizzy often upon standing. In fact, I was able to find that he takes Midodrine 5 mg daily, which was started several months ago by his PCP. He has never bitten his tongue or lost control of his bladder. The episodes have always happened upon standing. Patient does have a pacemaker and follows with Dr. Watson of [facility]. Dr. Watson recently increased the patient's Lopressor. The patient has not had a Tilt Table Test. The patient recently had a rather normal stress test with Dr. Watson. Seizure Risk Factors 1. / Issues -- N 2. Febrile Seizures -- N 3. Head Trauma -- N 4. SHRUB PLANTER Infection -- N 5. Family History of Epilepsy -- N Seizure Testing 1. MRI Brain -- Has pacemaker 2. CT Head -- Y (May 2020 -- unremarkable ) 3. Routine EEG -- N 4. EMU/LTM -- N AED History None OARRS-- reviewed Labs & Studies Extensive time was taken to review all available records received with the new patient referral. Inaddition, extensive time was taken to query other [facility] databases, which include [employer], [employer], [employer], [employer], and radiology PACS systems. 06/06/2020 1:41 PM EXAMINATION: CT HEAD WITHOUT CONTRAST HISTORY: Seizure. Headache. COMPARISON: None. TECHNIQUE: CT examination of the head without IV contrast. Dose reduction techniques were achieved by using automated exposure control and/or adjustment of mA and/or kV according to patient size and/or use of iterative reconstruction technique. FINDINGS: No midline shift, mass effect or intracranial hemorrhage are identified. The mastoid air cells and the visualized paranasal sinuses are clear. IMPRESSION IMPRESSION: Unremarkable unenhanced brain CT. 06/01/2020 1:49 PM EXAMINATION: VASC DUPLEX CAROTID BILATERAL HISTORY: Bilateral carotid artery occlusion. COMPARISON: 11/30/2018. TECHNIQUE: Bilateral carotid arterial duplex examination was performed using B-mode, color flow, and spectral analysis. Carotid stenosis is reported according to validated velocity parameters, similar to NASCET criteria. FINDINGS: Imaging shows that both distal common carotid bulbs extending into the internal and external carotid arteries have complex soft and calcific plaquing. There is mild color-flow alteration. Right carotid: The peak systolic velocity in the right internal carotid artery was 145 cm/s. Peak end-diastolic velocity is 45 cm/s. The ratio of the internal common carotid artery was 1.6. Left carotid: Peak systolic velocity in the left internal carotid artery was 135 cm/s. Peak end-diastolic velocity was 64 cm/s. The ratio of the internal common carotid artery is 1.7. Antegrade vertebral flow is documented bilaterally. IMPRESSION IMPRESSION: Since the prior exam there has been bilateral increase in peak systolic and end-diastolic velocities in the internal carotid arteries. By velocities the patient now has 50% to 69% bilateral carotid stenosis although visibly it does not appear as narrowed as velocities would suggest. I suspect stenosis is approaching 50% bilaterally. Bilateral antegrade vertebral flow is documented. May 2020 -- Echocardiogram APPROVED REPORT Other Information Study Quality: Fair Conclusion Left Ventricle : The left ventricular systolic function is normal. The left ventricular ejection fraction is within the normal range. Paradoxical septal motion consistent with paced rhythm. LVEF is 55-60%. Mild asymmetric septal thickening is noted. Mild diastolic dysfunction is present (impaired relaxation pattern). Right Ventricle : The right ventricle is normal size. The right ventricular systolic function is normal. Tricuspid Valve : Mild tricuspid regurgitation. No pulmonary hypertension. Right Ventricle : Pacemaker lead is present in the right ventricle. Past Medical History: Diagnosis Date COPD (chronic obstructive pulmonary disease) Emphysema lung Hypertension Lung disease Pacemaker Past Surgical History: Procedure Laterality Date AAA REPAIR 01/31/2016 CORONARY STENT PLACEMENT 1997 HEART CATHETERIZATION PACEMAKER PLACEMENT RELEASE CARPAL TUNNEL Right Current Outpatient Medications Medication Sig Last Dose Start Date End Date Authorizing Provider albuterol (2.5 MG/3ML) 0.083% inhalation solution 2.5 mg, Nebulization, EVERY 6 HOURS NEEDED 09/22/19 Charleen Mendoza MD albuterol 108 (90 Base) MCG/ACT Aero Soln inhaler 1-2 puffs, Inhalation, EVERY 6 HOURS NEEDED 04/17/20 Charleen Mendoza MD Aspirin (ECOTRIN LOW STRENGTH) [address] tablet 81 mg, Oral, DAILY 10/21/18 Luis Watson II, MD atorvastatin 10 MG tablet 10 mg, Oral, DAILY 04/17/20 Charleen Mendoza MD azithromycin 250 MG tablet Take 500 mg X1 then 250 mg PO Once Daily X 4 days 06/19/20 06/23/20 Latricia Teran PA-C benzonatate (Tessalon Perles) 100 MG capsule 100 mg, Oral, 3 TIMES DAILY NEEDED 06/19/20 Edis Aguila PA-C budesonide-formoterol (Symbicort) 160-4.5 mcg/puff Aerosol inhaler 2 puffs, Inhalation, EVERY 12 HOURS 04/17/20 Charleen Mendoza MD ipratropium-albuterol 0.5-2.5 (3) MG/3ML nebulizer solution 3 mL, Nebulization, 4 TIMES DAILY 05/03/20 Sergio Fuentes MD metoprolol 25 MG tab regular release 12.5 mg, Oral, 2 TIMES DAILY 04/17/20 Charleen Mendoza MD midodrine 5 MG tablet 5 mg, Oral, DAILY 04/17/20 Charleen Mendoza MD nitroGLYCERIN 0.4 MG tablet SL 0.4 mg, Sublingual, EVERY 5 MINUTES NEEDED, max = 3 doses. If CP persists after 3rd dose, call 911 01/21/19 Luis Watson II, MD Pramipexole Dihydrochloride 0.125 MG tablet Take 1 tab 3 to 4 hours prior to bedtime 04/17/20 Charleen Mendoza MD predniSONE 20 MG tablet 20 mg, Oral, 2 TIMES DAILY 06/19/20 Edis Teran PA-C tiotropium (Spiriva Respimat) 2.5 MCG/ACT Aero Soln inhaler 2 puffs, Inhalation, DAILY 04/17/20 MD Brenda Allergies Allergen Reactions Penicillins Hives and Swelling Tamsulosin Other reaction(s): Other (See Comments) Makes him blackout Clopidogrel Itching Social History Socioeconomic History Marital status: Single Spouse name: Not on file Number of children: Not on file Years of education: Not on file Highest education level: Not on file Occupational History Not on file Social Needs Financial resource strain: Not on file Food insecurity Worry: Not on file Inability: Not on file Transportation needs Medical: Not on file Non-medical: Not on file Tobacco Use Smoking status: Current Every Day Smoker Packs/day: 0.25 Smokeless tobacco: Never Used Substance and Sexual Activity Alcohol use: No Drug use: No Sexual activity: Not on file Lifestyle Physical activity Days per week: Not on file Minutes per session: Not on file Stress: Not on file Relationships Social connections Talks on phone: Not on file Gets together: Not on file Attends spiritism service: Not on file Active member of club or organization: Not on file Attends meetings of clubs or organizations: Not on file Relationship status: Not on file Intimate partner violence Fear of current or ex partner: Not on file Emotionally abused: Not on file Physically abused: Not on file Forced sexual activity: Not on file Other Topics Concern Service Not Asked Blood Transfusions Not Asked Caffeine Concern Not Asked Occupational Exposure Not Asked Hobby Hazards Not Asked Sleep Concern Not Asked Stress Concern Not Asked Weight Concern Not Asked Special Diet Not Asked Back Care Not Asked Exercise Not Asked Bike Helmet Not Asked Seat Belt Not Asked Domestic Violence No Social History Narrative Not on file Family History Problem Relation Age of Onset Dysrhythmia Mother Dysrhythmia Brother Myocardial Infarction Brother Review of Systems Constitutional: Negative for appetite change, chills, diaphoresis, fatigue, fever and unexpected weight change. HENT: Negative for congestion, ear pain, hearing loss, nosebleeds, rhinorrhea, sinus pressure, sinus pain, sneezing, sore throat, tinnitus, trouble swallowing and voice change. Eyes: Negative for photophobia, pain and visual disturbance. Respiratory: Negative for apnea, cough, choking, chest tightness, shortness of breath, wheezing andstridor. Cardiovascular: Negative for chest pain, palpitations and leg swelling. Gastrointestinal: Negative for abdominal distention, abdominal pain, anal bleeding, blood in stool,constipation, diarrhea, nausea, rectal pain and vomiting. Endocrine: Negative for cold intolerance, heat intolerance, polydipsia, polyphagia and polyuria. Genitourinary: Negative for decreased urine volume, difficulty urinating, dysuria, flank pain, frequency, hematuria and urgency. Musculoskeletal: Negative for arthralgias, back pain, gait problem, joint swelling, myalgias, neck pain and neck stiffness. Skin: Negative for color change, pallor, rash and wound. Allergic/Immunologic: Negative for food allergies and immunocompromised state. Neurological: Positive for tremors. Negative for dizziness, seizures, syncope, facial asymmetry, speech difficulty, weakness, light-headedness, numbness and headaches. Hematological: Negative for adenopathy. Does not bruise/bleed easily. Psychiatric/Behavioral: Negative for agitation, behavioral problems, confusion, decreased concentration, dysphoric mood, hallucinations, self-injury, sleep disturbance and suicidal ideas. The patientis not nervous/anxious and is not hyperactive. Vitals: Blood pressure 132/76, pulse 60, resp. rate 18, height 1.88 m (6' 2 ), weight 71.7 kg (158 lb). Physical Exam Constitutional: General: He is not in acute distress. Appearance: Normal appearance. He is well-developed. He is not ill-appearing, toxic-appearing or diaphoretic. HENT: Head: Normocephalic and atraumatic. Right Ear: Hearing and external ear normal. Left Ear: Hearing and external ear normal. Nose: Nose normal. Mouth/Throat: Pharynx: Uvula midline. Eyes: General: Lids are normal. Conjunctiva/sclera: Conjunctivae normal. Pupils: Pupils are equal, round, and reactive to light. Neck: Musculoskeletal: Full passive range of motion without pain, normal range of motion and neck supple.Normal range of motion. No neck rigidity, spinous process tenderness or muscular tenderness. Vascular: No carotid bruit. Trachea: Trachea and phonation normal. Cardiovascular: Rate and Rhythm: Normal rate and regular rhythm. Heart sounds: Normal heart sounds, S1 normal and S2 normal. Pulmonary: Effort: Pulmonary effort is normal. No tachypnea, bradypnea, accessory muscle usage or respiratory distress. Breath sounds: Normal breath sounds. Abdominal: General: Bowel sounds are normal. Palpations: Abdomen is soft. Tenderness: There is no abdominal tenderness. Lymphadenopathy: Cervical: No cervical adenopathy. Skin: General: Skin is warm and dry. Coloration: Skin is not pale. Findings: No rash. Nails: There is no clubbing. Neurological: Mental Status: He is alert and oriented to person, place, and time. Cranial Nerves: Cranial nerves are intact. Motor: Motor function is intact. No abnormal muscle tone. Coordination: Coordination is intact. Gait: Gait normal. Psychiatric: Attention and Perception: Attention normal. Mood and Affect: Mood normal. Speech: Speech normal. Behavior: Behavior normal. Thought Content: Thought content normal. Neurologic Exam Mental Status Oriented to person, place, and time. Speech: speech is normal Cranial Nerves CN III, IV, Pupils are equal, round, and reactive to light. Assessment and Plan 1. Syncope/near-syncope with syncopal convulsions A. The patient's history is consistent with orthostatic hypotension or POTS. I recommend that he follow-up with his welding process engineer and be considered for a Tilt Table Test. B. I asked the patient to cut out caffeine and increase his hydration. I also taught him isometric muscle contract maneuvers that can help prevent the episodes. C. Given that the patient's history is so classic for presyncope/syncope, we did not move forward with an EEG. I did offer the test to him, but we all decided that he has had enough tests for now. D. I asked to call with any more episodes. E. Follow up is prn. Please note this visit consumed 30-35 minutes, of which half or more was dedicated to [id number] counseling of the problems/issues and coordination of all care. documented in this encounter* Evelina España LPN - 07/09/2020 11:30 AM EST Upon check out, patient and granddaughter requested an order for a portable oxygen concentrator as his current portable tanks are tiny . I informed them I would pass along the information to nursingto fax an order. * Roberto Carlos Townsend MD - 07/09/2020 11:30 AM EST SUBJECTIVE: Isaias Breaux is a 75 y.o. male being seen today for COPD follow up. His 6MWT from last month showed oxygen desaturation to the 80's on room air and improved with 3 LPM. Currently he uses 3 LPM oxygen at night at home. He stated that he has shortness of breath with exertion. Has cough and wheezing occasionally. He takes DuoNeb, Albuterol HFA, Symbicort (160-4.5 mcg) and Spiriva at home. Project Consultant Assessment Oxygen Use- 2 liters at nighttime [facility] Symptoms include : Increase in shortness of breath- No Dyspnea upon Exertion-Yes Dyspnea at rest-No Chest pain-Yes it comes and goes Cough-yes productive light yellow to green phelgm Wheezing-Yes Swelling LE-No Hemoptysis-No CURRENT MEDICATIONS: Current Outpatient Medications Medication Sig Dispense Refill albuterol (2.5 MG/3ML) 0.083% inhalation solution Take 3 mL by nebulization every 6 hours as needed. 20 vial 3 albuterol 108 (90 Base) MCG/ACT Aero Soln inhaler Inhale 1-2 puffs every 6 hours as needed for Shortness of Breath or Wheezing. 1 Inhaler 2 Aspirin (ECOTRIN LOW STRENGTH) [address] tablet Take 1 tablet by mouth daily. 90 tablet 3 atorvastatin 10 MG tablet Take 1 tablet by mouth daily. 90 tablet 0 benzonatate (Tessalon Perles) 100 MG capsule Take 1 capsule by mouth 3 times daily as needed for Cough. 21 capsule 0 budesonide-formoterol (Symbicort) 160-4.5 mcg/puff Aerosol inhaler Inhale 2 puffs every 12 hours. 1Inhaler 2 folic acid 1 MG tablet Take 1 tablet by mouth daily. 90 tablet 1 ipratropium-albuterol 0.5-2.5 (3) MG/3ML nebulizer solution Take 3 mL by nebulization 4 times daily. 30 Each 0 metoprolol 25 MG tab regular release Take 1 tablet by mouth 2 times daily. 180 tablet 3 midodrine 5 MG tablet Take 1 tablet by mouth daily. 90 tablet 0 nitroGLYCERIN 0.[address] 1 tablet under tongue every 5 minutes as needed for Chest pain. max = 3 doses. If CP persists after 3rd dose, call [phone] 25 tablet 0 Pramipexole Dihydrochloride 0.125 MG tablet Take 1 tab 3 to 4 hours prior to bedtime 30 tablet 2 tiotropium (Spiriva Respimat) 2.5 MCG/ACT Aero Soln inhaler Inhale 2 puffs daily. 1 Inhaler 2 No current facility-administered medications for this visit. PHYSICAL EXAMINATION: Blood pressure 134/78, pulse 88, resp. rate 18, height 1.88 m (6' 2 ), weight 71.7 kg (158 lb). Lungs: Decreased breath sounds to auscultation bilaterally. Heart: Regular in rate and rhythm. Abd: Soft and non-distended. Skin: No obvious rashes or cyanosis. Neuro: Grossly non-focal examination. MS: No joint erythema/edema. ASSESSMENT & PLAN: * COPD * Hypoxic respiratory failure * Smoking history * His 6MWT result was reviewed and discussed with the patient during this visit. * Patient will be placed on 3 LPM oxygen continuously at home. * Patient will continue with Spiriva, Symbicort and Albuterol. * Patient was advised to get a Pneumococcal and Influenza vaccines. * Patient was advised to exercise precaution regarding COVID pandemic * Peter Acacia - 07/09/2020 11:30 AM EST Project Consultant Assessment Oxygen Use- 2 liters at nighttime [facility] Symptoms include : Increase in shortness of breath- No Dyspnea upon Exertion-Yes Dyspnea at rest-No Chest pain-Yes it comes and goes Cough-yes productive light yellow to green phelgm Wheezing-Yes Swelling LE-No Hemoptysis-No documented in this encounter* Erma Garibay, ROBIN-ROLL COVERER - 08/08/2020 9:00 AM EST FINDINGS: PPM programming evaluation. Battery is nearing JASWINDER indices (estimated 0.50 - 1 years, 2.71V). PPM site examined and shows no abnormalities. Presenting rhythm is AP-VS at 72 bpm. Underlying rhythm is CHB. Episode log indicates that there were 0 episodes since last interrogation. Impedance, pacing, and sensing thresholds WNL. Patient's A lead is stable, but impedance is often right around 200 with today's reading of 223 to <200. Safety margins maintained. AP 76%, ASSOCIATE ART DIRECTOR 1.3%. AF <1% of the time. HR histograms reviewed and WNL. No programming changes were made. Return to office in 8 weeks for battery check. For full summary, see PaceArt attachment under Procedures tab under Device Evaluation for this date. If PDF from erp programmer and/or remote monitoring website is needed, please look in [employer] or contact [facility]. documented in this encounter* Luis Watson II, MD - 01/19/2019 2:20 PM EDT Chief Complaint follow up from testing in November Isaias Breaux is a 74 y.o. male who [facility] today for follow up after havingdiagnostic testing performed in 11/2018. He had a transthoracic echocardiogram performed on 11/30/2018. This was a technically difficult study due to the patient's body habitus. Almost the entire studyhad to be done subcostally. The study revealed that the patient had normal left ventricular systolic function with an LV EF of 65-70%. A pacemaker wire was seen in the right atrium and the right ventricle. The patient had mild aortic valve sclerosis. 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 There is mild mitral valve prolapse and moderate tricuspid valve prolapse. Mild tricuspid regurgitation was seen as well as trace to mild pulmonic regurgitation. Lower extremity Doppler studies performed on 11/30/2018 were reported to show normal resting ABIs with multiphasic waveforms. Carotid arterial Doppler studies in 11/30/2018 showed mild bilateral carotid arterial d isease with lesions of less than 50% in the right and left internal carotid arteries. The patient'svertebral arteries were patent with antegrade flow. He had a dobutamine stress echocardiogram on 12/15/2018. There was 100% atrial pacing and 100% ventricular sensing at rest. With stress there was occasional ventricular pacing and periods of sinus rhythm and sinus tachycardia. The patient's LV EF was 60-65%. He achieved 85% of his maximum predicted heart rate with stress. There is no symptomatic,electrocardiographic, nor echocardiographic evidence of coronary artery ischemia. The patient currently admits to chest pain, outpatient dictations, shortness of breath, lightheadedness, and dizziness , but seems to be comfortable at rest. He failed to take his cardiovascular medicines this morning. There is no problem list on file for this patient. Review of System 1. Chest discomfort: yes 2. Shortness of breath: yes 3. Palpitations: yes 4. Dizziness: yes 5. Lightheadedness: yes 6. Syncope: no 7. Nausea: no 8. Vomiting: no 9. Diaphoresis: yes - at night occasionally 10. Jaw discomfort: no 11. Neck discomfort: no 12. Back discomfort: no 13. Arm discomfort or numbness: yes 14. Orthopnea: yes 15. PND: no 16. Increased abdominal girth: no 17. Weight gain/loss: yes - weight loss 18. Malaise: no 19. Fatigue: yes 20. Exercise intolerance: no 21. Hematemesis, hemoptysis, hematuria, melena, or hematochezia: no 22. Lower extremity swelling yes 23. Cough yes 24. Fevers/chills no Physical Exam Blood pressure (!) 158/98, pulse 80, height 1.88 m (6' 2 ), weight 67.7 kg (149 lb 3.2 oz), SpO2 93%. General appearance - Tall and slender gentleman who was alert, oriented, and in no distress Skin - normal coloration and turgor, no laxity. Nodes - anterior cervical, posterior cervical, epitrochlear, and inguinal nonpalpable. HEENT PERRLA, EOMI, no xanthelasma nor icterus. Neck - supple, FROM, No JVD,Carotids upstroke 1+ bilaterally without bruits. No thyromegaly and no lymphadenopathy. Chest - status post permanent pacemaker placement along the left anterior chest wall and the scar was well-healed. His chest was otherwisesymmetrical and non-tender. Lungs - clear to auscultation, moderate respiratory excursions, no wheezes, rales nor rhonchi. Decreased breath sounds at both bases. Heart - PMI MCL 5th ICS, normal rate and regular rhythm, S1 and S2 normal, no murmurs, rubs, nor gallops noted. Abdomen - soft, nontender, nondistended. No HSM, masses, nor bruits appreciated. Extremities -no cyanosis, clubbing, nor edema. Upper and lower extremity pulses trace to 1+ bilaterally. No femoral bruits. Musculoskeletal - mild and diffuse arthritic changes bilaterally, no tendon xanthomas. Psych- appropriate mood and affect Neurological - no focal neurological deficits appreciated. Speech fluent and appropriate, moves all4 extremities. Lab Results Component Value Date CHOLESTEROL 112 01/19/2019 TRIG 65 01/19/2019 HDL 41 01/19/2019 LDLCALC 58 01/19/2019 12 lead ECG: none. Diagnoses: 1. Coronary artery disease. 2. Status post 2 myocardial infarctions. 3. A history of abdominal aortic aneurysm for which he is status post endovascular repair 4. Status post the placement of a dual-chamberSt. [employer] pacemaker device with a generator change last performed on 06/23/2013. 5. Hypertension and hypertensive heart disease. 6. Dyslipidemia. 7. Tobacco abuse. 8. Emphysema and reliance on home oxygen therapy. 9. Recurrent episodes of syncope or near syncope for which he has been on midodrine. 10. Bilateral carotid arterial disease. 11. Medical noncompliance. Assessment & Plan His is a 74-year-old gentleman with an extensive history of cardiovascular disease as noted above who is status post diagnostic testing as noted above indicating no evidence of coronary artery ischemia, normal left ventricular function, no significant arterial disease of the lower extremities, mildand bilateral carotid arterial disease, and appropriate pacemaker function. I need to ensure that his blood pressure is adequately controlled on his current medications, and I have recommended that he adhere to these as well as to a 2 g sodium and a low-fat diet. He is to return for a follow-up visit in 4 weeks. * Genny Martinez - 01/19/2019 2:20 PM EDT Chief Complaint follow up from testing in November HPI Isaias Breaux is a 74 y.o. male who was seen by [facility] cardiology today for follow up from testingin November There is no problem list on file for this patient. Review of System 1. Chest discomfort: yes 2. Shortness of breath: yes 3. Palpitations: yes 4. Dizziness: yes 5. Lightheadedness: yes 6. Syncope: no 7. Nausea: no 8. Vomiting: no 9. Diaphoresis: yes - at night occasionally 10. Jaw discomfort: no 11. Neck discomfort: no 12. Back discomfort: no 13. Arm discomfort or numbness: yes 14. Orthopnea: yes 15. PND: no 16. Increased abdominal girth: no 17. Weight gain/loss: yes - weight loss 18. Malaise: no 19. Fatigue: yes 20. Exercise intolerance: no 21. Hematemesis, hemoptysis, hematuria, melena, or hematochezia: no 22. Lower extremity swelling yes 23. Cough yes 24. Fevers/chills no documented in this encounter* Erma Garibay APRN-CNP - 08/29/2020 1:15 PM EST FINDINGS: PPM programming evaluation. Battery is nearing JASWINDER indices with estimated 0.75- 1.25 years til JASWINDER at 2.72V (for reference, JASWINDER at 2.50V). PPM site examined and shows no abnormalities. Presenting rhythm is AP-ASSOCIATE ART DIRECTOR AT 60 bpm. Underlying rhythm is SR at 55-61 bpm. Episode log indicates that there were 1AMS episodes since last interrogation. AMS episode occurred on 08/27/20 at 6:21 pm with a duration of 8 hours and 17 minutes. No EGM is available for this event, no V rate recorded for this event but it does coordinate to patient's report of elevated HR of 135 bpm. Impedance, pacing, and sensing thresholds WNL. Safety margins maintained. AP 76%, ASSOCIATE ART DIRECTOR 1.1%. AF 1.6% of the time. On ASA only. HR histograms reviewed and show majority of time HR is between 60 to 90 bpm, very rarely 100-140 bpm. No programming changes were made. Return to office in [address] battery check[address] Watson notified. For full summary, see PaceArt attachment under Procedures tab under Device Evaluation for this date. If PDF from erp programmer and/or remote monitoring website is needed, please look in PaceArt or contact [facility]. documented in this encounter* Charleen Mendoza MD - 09/20/2020 11:00 AM EST PROGRESS NOTE SUBJECTIVE HPI The patient is a 75 y.o.male who presents today for follow up of hyperlipidemia and anemia Patient says that he is doing pretty good today. Patient says that his blood pressure is high at home with systolic blood pressure greater than 160. Patient's blood pressure is being managed by his welding process engineer and as the patient had hypotension he restarted him on Midodrine 5 mg 3 times daily which was discontinued may be in the ED. Patient has been having some chronic chest pressure for several months and patient has been seeing welding process engineer Dr. Watson and he had a Holter monitor for 7 days and he has an appointment to see him back in this office on September,. Patient also follows with the p ulmonologist Dr. Townsend for his COPD and the hypoxemic respiratory failure was advised to have oxygen 3 L continuously. Patient continues to smoke cigarettes less than 1/2 a pack per day which he started at the age of 10. Patient had a negative cologuard test in July 2020. Review of Systems Constitutional: Negative for fever, chills, no fatigue. HENT: Negative for hearing loss, ear pain, nosebleeds, congestion, sore throat, rhinorrhea and sinus pain. Eyes: Negative for blurred vision, double vision, eye pain, eye discharge, eye redness and eye watering. Cardiovascular: Negative for chest pain, dyspnea on exertion, palpitations, orthopnea, claudication, leg swelling and PND. Respiratory: Negative for cough. No shortness of breath, wheezing or stridor. Gastrointestinal: Negative for heartburn, nausea, vomiting, abdominal pain, diarrhea, constipation,blood in stool, melena. Genitourinary: Negative for bladder incontinence, dysuria, urgency, polyuria, frequency, hematuria. Musculoskeletal: Negative for myalgias, back pain, joint pain and falls. Neurological: Negative for dizziness, tingling, sensory change, speech change, focal weakness, seizures, loss of consciousness and headaches. OBJECTIVE Physical Exam Blood pressure (!) 180/98, pulse (!) 46, temperature 97.1 F (36.2 C), resp. rate 16, height 1.88 m (6' 2 ), weight 72.7 kg (160 lb 3.2 oz), SpO2 (!) 89 %., Body mass index is 20.57 kg/m . Repeat blood pressure 168/90 mm of Hg. Constitutional:alert, well appearing, and in no distress, oriented to person, place, and time and normal appearing weight. Eyes: Reactive pupils, no conjunctival injection, no jaundice. Nose: No nasal congestion/bogginess, no sinus tenderness Neck: Neck supple. Thyroid not enlarged. No anterior cervical adenopathy Chest: Decreased breath sounds on auscultation bilaterally, decreased chest expansion & respiratory effort.. Occasional scattered rhonchi and wheezing noted but no rales. Heart:normal rate, regular rhythm,hear rate 64 bpm normal S1, S2, no murmurs, rubs, clicks or gallops Abd:abdomen is soft without significant tenderness, masses, organomegaly or guarding. Ext:no peripheral edema and no swelling/erythema/tenderness Neurological: Alert. Extraocular movements intact, normal facial movements. Grossly normal strengthnoted during exam movements. Normal speech. Musculoskeletal: No joint deformity of hands, neck, or knees noted. Good ROM of all visible joints during exam. Gait & balance normal on observation within exam room. Psychiatric: Mood and affect normal. Judgment normal. Ordered thought content. RESULTS Imaging: Labs: No results found for this or any previous visit (from the past 672 hour(s)). ASSESSMENT: ICD-10-CM 1. Essential hypertension I10 2. Mixed hyperlipidemia E78.2 3. Anemia, normocytic normochromic D64.9 4. Tobacco use disorder F17.200 PLAN: Review of the records from his welding process engineer Dr. Watson at [facility] regarding his evaluation on 08/29/2020, his plan of care and recommendations. Patient needs to follow up with him as scheduled. Reviewed the records from his automotive specialty technician at [facility]. Continue current medications including all inhalers as prescribed. Advised the patient to quit smoking as he has already extensive cardiovascular disease, hypoxemia and severe COPD. Patient to follow-up with pulmonary. We will check CBC, comprehensive metabolic panel and lipid panel prior to next visit Return in 3months or sooner when necessary. Orders Placed This Encounter COMPREHENSIVE METABOLIC PANEL CBC, EDIF, PLATELET LIPID PANEL W CALCULATED LDL Discontinued Medications: There are no discontinued medications. Requested Prescriptions No prescriptions requested or ordered in this encounter There are no Patient Instructions on file for this visit. Signed by: Charleen Mendoza MD documented in this encounter* Uzma Gilbert, PATIENT CARE ASSISTANT-ROLL COVERER - 12/20/2018 9:10 AM EDT HPI Isaias Breaux is a 73 y.o. male presenting to the clinic for cough and congestion. States that he is daily smoker. [place] here [place] city. He denies any CP or SOB. He has not been taking any OTC meds. ROS Constitutional: Denies Fever or chills Eyes: Denies visual change or eye discharge Head/Ear/Nose/Throat: Denies earache or sore throat Respiratory: Denies shortness of breath. Denies cough Cardiovascular: Denies chest pain or palpitations Gastrointestinal: Denies abdominal pain, Denies nausea or vomiting. Denies constipation or diarrhea Genitourinary: Denies dysuria Musculoskeletal: Denies Joint pain, Denies muscle pain Skin: Denies Rash Neurological: Denies Headache, Denies focal neuro symptoms Social History Tobacco Use Smoking status: Current Every Day Smoker Packs/day: 0.25 Smokeless tobacco: Never Used Substance Use Topics Alcohol use: No Drug use: No PHYSICAL EXAM Blood pressure 136/82, pulse 75, temperature 98.7 F (37.1 C), temperature source Temporal, resp. rate 16, height 1.88 m (6' 2 ), weight 68.6 kg (151 lb 3.2 oz), SpO2 96 %. Primary Assessment: Airway patent. Respirations unlabored, Normal respiratory effort Constitutional: Vital signs reviewed. Well appearing. No distress Skin: Warm and dry. No rashes noted HENT: Normocephalic. Normal Tms. Posterior pharynx clear. Thorax/ Respiratory: Respiratory effort non-labored. CTAB. Heart: Regular rate and rhythm Musculoskeletal: Neck supple. All joints grossly normal. Neurologic: Alert and Oriented Diagnosis: ICD-10-CM 1. Cough R05 XR CHEST PA AND LATERAL Plan: Xray was reviewed with the patient today of suggestion to have a follow up CT study done. He is to follow up with PCP - states that she is working on finding him one now. Smoking cessation was given. He denied any questions, voiced understanding of follow up care of today's visit. WANG Sinclair 12/20/2018 documented in this encounter* Charleen Mendoza MD - 05/01/2020 10:30 AM EDT PROGRESS NOTE SUBJECTIVE HPI The patient is a 75 y.o.male who presents today for follow up after he was evaluated at the [facility] ED on 04/25/2020 for acute exacerbation of COPD.. Patient went to [facility] in ED with shortness of breath, productive cough with green mucus was diagnosed with exacerbation of COPD was given aerosol treatment, IV Solu-Medrol and Levaquin 500 mg IV And his workup for his GERD so he was discharged to home with prednisone and Zithromax. . Patient says he is doing better now but the occasionally has some chest tightness Patient continues to smoke 5 cigarettes per day. Review of Systems Constitutional: Negative for fever, chills, no fatigue. HENT: Negative for hearing loss, ear pain, nosebleeds, congestion, sore throat, rhinorrhea and sinus pain. Eyes: Negative for blurred vision, double vision, eye pain, eye discharge, eye redness and eye watering. Cardiovascular: Negative for chest pain, dyspnea on exertion, palpitations, orthopnea, claudication, leg swelling and PND. Respiratory: Negative for cough. No shortness of breath, wheezing or stridor. Gastrointestinal: Negative for heartburn, nausea, vomiting, abdominal pain, diarrhea, constipation,blood in stool, melena. Genitourinary: Negative for bladder incontinence, dysuria, urgency, polyuria, frequency, hematuria. Musculoskeletal: Negative for myalgias, back pain, joint pain and falls. Neurological: Negative for dizziness, tingling, sensory change, speech change, focal weakness, seizures, loss of consciousness and headaches. OBJECTIVE Physical Exam Blood pressure 162/86, pulse 60, temperature 97.7 F (36.5 C), resp. rate 16, height 1.88 m (6' 2 ),weight 70.3 kg (154 lb 14.4 oz), SpO2 91 %., Body mass index is 19.89 kg/m . Constitutional:alert, well appearing, and in no distress, oriented to person, place, and time and normal appearing weight. Eyes: Reactive pupils, no conjunctival injection, no jaundice. Nose: No nasal congestion/bogginess, no sinus tenderness Neck: Neck supple. Thyroid not enlarged. No anterior cervical adenopathy Chest: Decreased breath sounds on auscultation bilaterally, decreased chest expansion & respiratory effort.. Occasional scattered rhonchi and wheezing noted but no rales. Heart:normal rate, regular rhythm, normal S1, S2, no murmurs, rubs, clicks or gallops Abd:abdomen is soft without significant tenderness, masses, organomegaly or guarding. Ext:no peripheral edema and no swelling/erythema/tenderness Neurological: Alert. Extraocular movements intact, normal facial movements. Grossly normal strengthnoted during exam movements. Normal speech. Musculoskeletal: No joint deformity of hands, neck, or knees noted. Good ROM of all visible joints during exam. Gait & balance normal on observation within exam room. Psychiatric: Mood and affect normal. Judgment normal. Ordered thought content. RESULTS Imaging: Xr Chest Ap Portable Result Date: 04/25/2020 EXAM: XR CHEST AP PORTABLE HISTORY: sob COMPARISON: CT chest study dated 09/30/2019 TECHNIQUE: AP view of the chest was obtained with portable technique at 0745 hours. FINDINGS: Heart and mediastinal contours are unremarkable in appearance. No acute infiltrate or consolidations are seen. Pacemaker seen on the left similar to prior study. Generalized COPD. Slight convexity of the upper thoracic spine to the left in the midthoracic spine to the right. IMPRESSION: COPD. No acute infiltrate or consolidation seen. Labs: Recent Results (from the past 672 hour(s)) CHEM 7 (LYTES,BUN,CREA,GLUC) Collection Time: 04/25/20 7:51 AM Result Value Ref Range GLUCOSE 101 (H) 70 - 100 MG/DL BUN 20 7 - 20 MG/DL CREATININE SERUM 1.20 0.66 - 1.25 MG/DL SODIUM 137 136 - 145 MMOL/L POTASSIUM 4.0 3.5 - 5.1 MMOL/L CHLORIDE 105 98 - 107 MMOL/L CARBON DIOXIDE (CO2) 24 22 - 30 MMOL/L ESTIMATED GFR, NON AMER >60 ml/min/1.73sq.m ESTIMATED GFR, >60 ml/min/1.73sq.m GFR COMMENT Average GFR for 70+ years old = 75. HEPATIC FUNCTION PANEL Collection Time: 04/25/20 7:51 AM Result Value Ref Range ALBUMIN 4.1 3.5 - 5.0 G/DL BILIRUBIN, TOTAL 0.6 0.2 - 1.2 MG/DL ALKALINE PHOSPHATASE 58 38 - 126 IU/L AST 17 15 - 41 IU/L BILIRUBIN, DIRECT 0.1 0.0 - 0.2 MG/DL PROTEIN, TOTAL 7.1 6.3 - 8.2 GM/DL ALT 18 17 - 63 IU/L TROPONIN I, HIGH SENSITIVITY Collection Time: 04/25/20 7:51 AM Result Value Ref Range TROPONIN I, HIGH SENSITIVITY 2 0 - 20 pg/mL B-TYPE NATRIURETIC PEPTIDE (BRAIN) Collection Time: 04/25/20 7:51 AM Result Value Ref Range BRAIN NATRIURETIC PEPTIDE 142 (H) 0 - 100 pg/mL CBC, EDIF, PLATELET Collection Time: 04/25/20 7:51 AM Result Value Ref Range WBC (WHITE BLOOD COUNT) 8.0 3.6 - 11.0 10*3/uL RBC 3.72 (L) 4.0 - 6.1 10*6/uL HEMOGLOBIN (HGB) 11.6 (L) 14.0 - 18.0 G/DL HEMATOCRIT (HCT) 34.1 (L) 42.0 - 52.0 % MEAN CELL VOLUME 91.7 80.0 - 100.0 FL Mean Cell HGB 31.3 26.0 - 35.0 PG MEAN CELL HGB CONCENTRATION 34.1 27.0 - 37.0 G/DL RBC DISTRIBUTION 15.5 (H) 11.5 - 14.5 % PLATELET COUNT 205 130.0 - 400.0 10*3/uL MEAN PLATELET VOLUME 8.1 7.4 - 11.0 FL DIFFERENTIAL TYPE AUTO DIFF % NEUTROPHILS 88.4 (H) 37.0 - 75.0 % LYMPHOCYTE 5.3 (L) 20.0 - 55.0 % MONOCYTE % 3.6 0.0 - 10.0 % EOSINOPHIL % 1.8 0.0 - 11.0 % BASOPHIL % 0.9 0.0 - 2.0 % Absolute Neutrophil Count 7.1 (H) 1.4 - 6.5 10*3/uL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 GUAIFENESIN 600 MG TAB SR 12 HR TABLET SR Take 1 tablet by mouth 2 times daily as needed. METOPROLOL 25 MG TAB REGULAR RELEASE Take 0.5 tablets by mouth 2 times daily. MIDODRINE 5 MG TABLET Take 1 tablet by mouth daily. NITROGLYCERIN 0.[address] 1 tablet under tongue every 5 minutes as needed for Chest pain. max = 3 doses. If CP persists after 3rd dose, call 911 ONDANSETRON 4 MG TAB DISPERSIBLE TABLET Take 1 tablet by mouth every 8 hours as needed for Nausea for up to [address]. [address] on tongue PRAMIPEXOLE DIHYDROCHLORIDE 0.125 MG TABLET Take 1 tab 3 to 4 hours prior to bedtime TIOTROPIUM (SPIRIVA RESPIMAT) 2.5 MCG/ACT AERO SOLN INHALER Inhale 2 puffs daily. Modified Medications No medications on file Discontinued Medications No medications on file Family History: Family History Problem Relation Age of Onset Dysrhythmia Mother Dysrhythmia Brother Myocardial Infarction Brother Social History: Social History Socioeconomic History Marital status: Single Spouse name: Not on file Number of children: Not on file Years of education: Not on file Highest education level: Not on file Occupational History Not on file Social Needs Financial resource strain: Not on file Food insecurity Worry: Not on file Inability: Not on file Transportation needs Medical: Not on file Non-medical: Not on file Tobacco Use Smoking status: Current Every Day Smoker Packs/day: 0.25 Smokeless tobacco: Never Used Substance and Sexual Activity Alcohol use: No Drug use: No Sexual activity: Not on file Lifestyle Physical activity Days per week: Not on file Minutes per session: Not on file Stress: Not on file Relationships Social connections Talks on phone: Not on file Gets together: Not on file Attends spiritism service: Not on file Active member of club or organization: Not on file Attends meetings of clubs or organizations: Not on file Relationship status: Not on file Intimate partner violence Fear of current or ex partner: Not on file Emotionally abused: Not on file Physically abused: Not on file Forced sexual activity: Not on file Other Topics Concern Service Not Asked Blood Transfusions Not Asked Caffeine Concern Not Asked Occupational Exposure Not Asked Hobby Hazards Not Asked Sleep Concern Not Asked Stress Concern Not Asked Weight Concern Not Asked Special Diet Not Asked Back Care Not Asked Exercise Not Asked Bike Helmet Not Asked Seat Belt Not Asked Domestic Violence No Social History Narrative Not on file Physical Exam: @PHYSICALEXAM@ Patient is awake alert and active. Vital signs were reviewed. Mental status is good. Patient appears to have a COPD body habitus. Heart is regular rate and rhythm with no tachycardia. No murmurs. Lungs actually show good air movement in all lung dietz. No inspiratory rhonchi or rales. No expiratory wheezing. Persistent coughing noted. Abdomen thin and soft with hypoactive bowel sounds. No peripheral edema. Poor pulses to the dorsalis pedis and posterior Terrier tibial area. However, good capillary refill in the extremities are warm. Vital Signs During ED Visit Patient Vitals for the past 24 hrs: BP Temp Temp src Pulse Resp SpO2 04/25/20 0749 183/83 97.3 F (36.3 C) Oral 62 24 98 % Differential Diagnosis: COPD exacerbation chronic tobacco abuse Orders/Results: Orders Placed This Encounter BLOOD CULTURE, PERIPHERAL 1ST SITE BLOOD CULTURE, PERIPHERAL 2ND SITE XR CHEST AP PORTABLE CHEM 7 (LYTES,BUN,CREA,GLUC) HEPATIC FUNCTION PANEL Troponin I, High sensitivity B-TYPE NATRIURETIC PEPTIDE (BRAIN) CBC, EDIF, PLATELET PROTIME-INR LACTATE, BLOOD SEDIMENTATION RATE, AUTOMATED C REACTIVE PROTEIN sodium chloride 0.9% IV solution methylPREDNISolone sodium succinate (SOLU-MEDROL) injection 125 mg levoFLOXacin (LEVAQUIN) 500 mg in dextrose 5% premix IVPB Results for orders placed or performed during the hospital encounter of 02/18/20 CBC, EDIF, PLATELET Result Value Ref Range WBC (WHITE BLOOD COUNT) 9.1 3.6 - 11.0 10*3/uL RBC 4.33 4.0 - 6.1 10*6/uL HEMOGLOBIN (HGB) 13.3 (L) 14.0 - 18.0 G/DL HEMATOCRIT (HCT) 40.0 (L) 42.0 - 52.0 % MEAN CELL VOLUME 92.4 80.0 - 100.0 FL Mean Cell HGB 30.7 26.0 - 35.0 PG MEAN CELL HGB CONCENTRATION 33.2 27.0 - 37.0 G/DL RBC DISTRIBUTION 15.4 (H) 11.5 - 14.5 % PLATELET COUNT 186 130.0 - 400.0 10*3/uL MEAN PLATELET VOLUME 8.7 7.4 - 11.0 FL DIFFERENTIAL TYPE AUTO DIFF % NEUTROPHILS 88.3 (H) 37.0 - 75.0 % LYMPHOCYTE 5.9 (L) 20.0 - 55.0 % MONOCYTE % 3.9 0.0 - 10.0 % EOSINOPHIL % 1.2 0.0 - 11.0 % BASOPHIL % 0.7 0.0 - 2.0 % Absolute Neutrophil Count 8.0 (H) 1.4 - 6.5 10*3/uL LYMPHOCYTES, ABSOLUTE 0.50 (L) 1.2 - 3.4 10*3/uL MONOCYTES, ABSOLUTE 0.4 0.0 - 0.7 10*3/uL ABSOLUTE EOSINOPHIL COUNT 0.10 0.0 - 0.7 10*3/uL ABSOLUTE BASOPHIL COUNT 0.1 0.0 - 0.2 10*3/uL COMPREHENSIVE METABOLIC PANEL Result Value Ref Range GLUCOSE 102 (H) 70 - 100 MG/DL BUN 30 (H) 7 - 20 MG/DL CREATININE SERUM 1.23 0.66 - 1.25 MG/DL SODIUM 134 (L) 136 - 145 MMOL/L POTASSIUM 4.2 3.5 - 5.1 MMOL/L CHLORIDE 104 98 - 107 MMOL/L CALCIUM 9.2 8.4 - 10.2 MG/DL PROTEIN, TOTAL 7.6 6.3 - 8.2 GM/DL ALBUMIN 4.6 3.5 - 5.0 G/dl BILIRUBIN, TOTAL 0.9 0.2 - 1.2 MG/DL AST 16 15 - 41 IU/L ALKALINE PHOSPHATASE 63 38 - 126 IU/L CARBON DIOXIDE (CO2) 22 22 - 30 MMOL/L A/G Ratio 1.5 1.3 - 2.2 RATIO ALT 11 (L) 17 - 63 IU/L ESTIMATED GFR, NON AMER >60 ml/min/1.73sq.m ESTIMATED GFR, >60 ml/min/1.73sq.m GFR COMMENT Average GFR for 70+ years old = 75. Radiographic Imaging XR CHEST AP PORTABLE (Results Pending) Lab/Imaging Results Summary: EKG demonstrates a sinus rhythm. 62 bpm. NH interval of 272 ms. QRS duration of 90 ms. Left axis deviation. Nonspecific ST-T wave changes. No acute ischemic changes. First degree AV block is noted. Chest x-ray demonstrates COPD. No acute CHF or pneumonia. No evidence of any basilar effusions. CBC good. Chemistry profile good. Troponin good. Brain naturally peptide good. Moderate Sedation: Procedures: Procedures Progress Notes/Re-evaluation: Discharged ED Summary: Patient has exacerbation of COPD and chronic tobacco abuse. We will be progressing with chest x-ray, EKG, and IV. Patient will receive fluid bolus and maintenance drip. We will give Solu-Medrol 125 mg IV, Levaquin 500 mg IV piggyback, and DuoNeb. Based upon the initial evaluation, clinical appearance, vital signs, it would appear that admission will be probably unlikely unless bloodwork suggests cardiac issues. Disposition will be dependent upon test results. Workup is good. We have good vital signs. Good bloodwork. Good chest x-ray/EKG. Patient will be discharged with prednisone and Zithromax. I did review all test results with patient and family and answered questions. We suggested tobacco or evidence and this was discussed. Follow-up with primary care physician and a consult was placed. Return if more ill. Clinical Impression: Acute exacerbation of COPD chronic tobacco abuse No diagnosis found. No follow-ups on file. New Prescriptions No medications on file Discontinued Medications No medications on file An After Visit Summary was printed and given to the patient with above information. . Macario Garza DO 04/25/20 0857 documented in this encounter Clay Hernandez CNP [facility] Possible seizure yesterday. Family member reports she was walking and started shaking. Another family member was able to get into a chair. He states he seemed to be unconscious for a couple minutes minimal back. Concern for possible seizure. Call the doctor's office today and was told to come to the emergency department. Patient denies any paresthesias or focal weakness. Is not complaining the headache at this time. He did complain of headache to Radha Hernandez CNP. Please see her note for further details. He is ambulatory and speaking in full sentences. He has any facial droop. No tenderness over the scalp or face. His neck was supple is trachea is midline. Carotid upstrokes symmetrical. He is moving all extremities and has good strength in all extremities. Lungs do have slight diminished but symmetrical breath sounds. Just occasional rhonchi. Heart is regular. EKG: Atrial paced rhythm at 60 bpm. Castration is 98 ms. There is not severe ST-T wave changes present on the tracing. It is similar previous tracing done May 03, 2020. No acute findings on CT scan of the head. GFR is greater than 60. No significant abnormality on the patient's chemistry panel. Hemoglobin is 12.7 and hematocrit is 38. No leukocytosis. Platelet count is 184,000. At this time or waiting on urinalysis and urine drug screen. Please see note from Radha Hernandez CNP, for further details. Sergio Fuentes MD 06/06/20 1351 documented in this encounter Patient was seen by me as well as the PA all medical decision making and course was discussed with me. 75 [id number] male with cough for the past 2 days. He states it hurts on the right side of his chest when he coughs. Patient is a smoker and he states the cough has been productive of some green phlegm. He denies any fevers or chills. He denies sick contacts. Denies any headache. Denies palpitations, syncope, abdominal pain. He denies frequency or urgency. He denies any headache or rash. He denies loss of bowel or bladder control. He denies hemoptysis On exam patient is awake nontoxic. Lung sounds diminished in the bases. Right greater than left. There is no dullness to percussion. Heart tones are regular. Skin is warm and dry. Sclerae anicteric. Mucous membranes are well-hydrated. Neurologically he is answering questions appropriately moving all extremities well has a nonfocal neurologic exam. Negative Homans sign. Clau Wheeler MD 06/19/20 1021 documented in this encounter Emergency Department Report [facility] Service Date:.06/30/20 PCP: Charleen Mendoza Chief Complaint: Chief Complaint Patient presents with Chest Pain reports left arm pain x2 days. denies injury. reports chest pain since last night around 0 HPI Isaias Breaux is a 75 y.o. male presents to the ED today due to chest pain. Patient states he's had chest pain for the last 3 hours but also had pain in his left arm for the last 2 days. He has a prior history of coronary disease. He had a recent stress echo on June 20 which was negative. He denies any associated shortness of breath, diaphoresis or vomiting. Review of Systems: Review of Systems Constitutional: Negative for fever. Respiratory: Negative for shortness of breath. Gastrointestinal: Negative for vomiting. Past Medical History: Past Medical History: Diagnosis Date COPD (chronic obstructive pulmonary disease) Emphysema lung Hypertension Lung disease Pacemaker Seizure 06/06/2020 Witnessed Past Surgical History: Past Surgical History: Procedure Laterality Date AAA REPAIR 01/31/2016 REMOVAL CATARACT (PEM) Bilateral 2012 PACEMAKER PLACEMENT 2002 battery change 2012 CORONARY STENT PLACEMENT 1997 HEART CATHETERIZATION RELEASE CARPAL TUNNEL Right Allergies: Allergies Allergen Reactions Penicillins Hives and Swelling Tamsulosin Other reaction(s): Other (See Comments) Makes him blackout Clopidogrel Itching Medications: Patient's Medications New Prescriptions No medications on file Previous Medications ALBUTEROL (2.5 MG/3ML) 0.083% INHALATION SOLUTION Take 3 mL by nebulization every 6 hours as needed. ALBUTEROL 108 (90 BASE) MCG/ACT AERO SOLN INHALER Inhale 1-2 puffs every 6 hours as needed for Shortness of Breath or Wheezing. ASPIRIN (ECOTRIN LOW STRENGTH) [address] TABLET Take 1 tablet by mouth daily. ATORVASTATIN 10 MG TABLET Take 1 tablet by mouth daily. BENZONATATE (TESSALON PERLES) 100 MG CAPSULE Take 1 capsule by mouth 3 times daily as needed for Cough. BUDESONIDE-FORMOTEROL (SYMBICORT) 160-4.5 MCG/PUFF AEROSOL INHALER Inhale 2 puffs every 12 hours. FOLIC ACID 1 MG TABLET Take 1 tablet by mouth daily. IPRATROPIUM-ALBUTEROL 0.5-2.5 (3) MG/3ML NEBULIZER SOLUTION Take 3 mL by nebulization 4 times daily. METOPROLOL 25 MG TAB REGULAR RELEASE Take 1 tablet by mouth 2 times daily. MIDODRINE 5 MG TABLET Take 1 tablet by mouth daily. NITROGLYCERIN 0.[address] 1 tablet under tongue every 5 minutes as needed for Chest pain. max = 3 doses. If CP persists after 3rd dose, call 911 PRAMIPEXOLE DIHYDROCHLORIDE 0.125 MG TABLET Take 1 tab 3 to 4 hours prior to bedtime TIOTROPIUM (SPIRIVA RESPIMAT) 2.5 MCG/ACT AERO SOLN INHALER Inhale 2 puffs daily. Modified Medications No medications on file Discontinued Medications No medications on file Family History: Family History Problem Relation Age of Onset Dysrhythmia Mother Dysrhythmia Brother Myocardial Infarction Brother Social History: Social History Socioeconomic History Marital status: Single Spouse name: Not on file Number of children: Not on file Years of education: Not on file Highest education level: Not on file Occupational History Not on file Social Needs Financial resource strain: Not on file Food insecurity Worry: Not on file Inability: Not on file Transportation needs Medical: Not on file Non-medical: Not on file Tobacco Use Smoking status: Current Every Day Smoker Packs/day: 0.25 Smokeless tobacco: Never Used Substance and Sexual Activity Alcohol use: No Drug use: No Sexual activity: Not on file Lifestyle Physical activity Days per week: Not on file Minutes per session: Not on file Stress: Not on file Relationships Social connections Talks on phone: Not on file Gets together: Not on file Attends spiritism service: Not on file Active member of club or organization: Not on file Attends meetings of clubs or organizations: Not on file Relationship status: Not on file Intimate partner violence Fear of current or ex partner: Not on file Emotionally abused: Not on file Physically abused: Not on file Forced sexual activity: Not on file Other Topics Concern Service Not Asked Blood Transfusions Not Asked Caffeine Concern Not Asked Occupational Exposure Not Asked Hobby Hazards Not Asked Sleep Concern Not Asked Stress Concern Not Asked Weight Concern Not Asked Special Diet Not Asked Back Care Not Asked Exercise Not Asked Bike Helmet Not Asked Seat Belt Not Asked Domestic Violence No Social History Narrative Not on file Physical Exam: Physical Exam Physical Exam Nursing note and vitals reviewed. Constitutional: Patient is well-developed, well-nourished, and in no distress. HENT: Head: Normocephalic and atraumatic. Eyes: Conjunctivae are normal. Cardiovascular: Normal rate, regular rhythm and normal heart sounds. Pulmonary/Chest: Effort normal and breath sounds normal. Abd: Soft nontender nondistended normoactive bowel sounds no rebound or guarding Neurological: Patient is alert. GCS score is 15. Skin: Skin is warm and dry. Psychiatric: Affect and judgment normal. Vital Signs During ED Visit Patient Vitals for the past 24 hrs: BP Temp Temp src Pulse Resp SpO2 06/30/20 0232 60 06/30/20 0217 146/86 97.5 F (36.4 C) Oral 60 18 94 % Orders/Results: Orders Placed This Encounter XR CHEST AP PORTABLE PTT PROTIME-INR CBC, EDIF, PLATELET BASIC METABOLIC PANEL Troponin I, High sensitivity ECG Results for orders placed or performed during the hospital encounter of 06/30/20 PTT Result Value Ref Range PTT 29.6 22.4 - 34.7 SEC PROTIME-INR Result Value Ref Range PT 12.3 11.8 - 14.4 SEC INR 0.94 0.88 - 1.12 CBC, EDIF, PLATELET Result Value Ref Range WBC (WHITE BLOOD COUNT) 6.9 3.6 - 11.0 10*3/uL RBC 4.06 4.0 - 6.1 10*6/uL HEMOGLOBIN (HGB) 12.8 (L) 14.0 - 18.0 G/DL HEMATOCRIT (HCT) 38.1 (L) 42.0 - 52.0 % MEAN CELL VOLUME 93.8 80.0 - 100.0 FL Mean Cell HGB 31.4 26.0 - 35.0 PG MEAN CELL HGB CONCENTRATION 33.5 27.0 - 37.0 G/DL RBC DISTRIBUTION 15.6 (H) 11.5 - 14.5 % PLATELET COUNT 194 130.0 - 400.0 10*3/uL MEAN PLATELET VOLUME 8.3 7.4 - 11.0 FL DIFFERENTIAL TYPE AUTO DIFF % NEUTROPHILS 67.5 37.0 - 75.0 % LYMPHOCYTE 16.0 (L) 20.0 - 55.0 % MONOCYTE % 8.5 0.0 - 10.0 % EOSINOPHIL % 5.7 0.0 - 11.0 % BASOPHIL % 2.3 (H) 0.0 - 2.0 % Absolute Neutrophil Count 4.6 1.4 - 6.5 10*3/uL LYMPHOCYTES, ABSOLUTE 1.10 (L) 1.2 - 3.4 10*3/uL MONOCYTES, ABSOLUTE 0.6 0.0 - 0.7 10*3/uL ABSOLUTE EOSINOPHIL COUNT 0.40 0.0 - 0.7 10*3/uL ABSOLUTE BASOPHIL COUNT 0.2 0.0 - 0.2 10*3/uL BASIC METABOLIC PANEL Result Value Ref Range GLUCOSE 113 (H) 70 - 100 MG/DL BUN 29 (H) 7 - 20 MG/DL CREATININE SERUM 1.24 0.66 - 1.25 MG/DL SODIUM 140 136 - 145 MMOL/L POTASSIUM 3.9 3.5 - 5.1 MMOL/L CHLORIDE 106 98 - 107 MMOL/L CARBON DIOXIDE (CO2) 22 22 - 30 MMOL/L ANION GAP 12 8 - 16 MMOL/L CALCIUM 9.2 8.4 - 10.2 MG/DL ESTIMATED GFR, NON AMER >60 ml/min/1.73sq.m ESTIMATED GFR, >60 ml/min/1.73sq.m GFR COMMENT Average GFR for 70+ years old = 75. TROPONIN I, HIGH SENSITIVITY Result Value Ref Range TROPONIN I, HIGH SENSITIVITY 5 0 - 20 pg/mL Radiographic Imaging XR CHEST AP PORTABLE Final Result IMPRESSION: 1. Hyperinflation. No consolidation. Procedures: Procedures Moderate Sedation Procedure: No ED Summary/MDM EKG paced rhythm rate 60 QRS 96 QTc 347 turgor by myself. MDM Number of Diagnoses or Management Options Amount and/or Complexity of Data Reviewed Clinical lab tests: reviewed and ordered Tests in the radiology section of CPT : reviewed and ordered Review and summarize past medical records: yes Independent visualization of images, tracings, or specimens: yes Clinical Impression: 1. Chest pain, unspecified type No follow-ups on file. New Prescriptions No medications on file Discontinued Medications No medications on file An After Visit Summary was printed and given to the patient with above information. . . Alcon Mcconnell MD 06/30/20 0328 documented in this encounter Discharge instructions discussed with patient, no questions at this time. Patient and belongings wheeled off of unit. Emergency Room Note [facility] Service Date:.05/03/20 PCP: Charleen Mendoza Chief Complaint: Chief Complaint Patient presents with Chest Pain increased with cough, headache, productive cough with greenish sputum HPI Isaias Breaux is a 75 y.o. male presents to the ED today due to cough, shortness of breath. Patient states he was seen approximately week ago for similar complaints. Given medicine and was feeling improved until today. States today's coughing. He states he feels like he has no energy. States is bringing up a little bit of greenish sputum. He is a long history of COPD with chronic respiratory failure. Is on home O2. He continues to smoke. He states he is down to a quart a pack of cigarettes a day but at one point he was smoking between 2 and 3 packs cigarettes a day. He also states she has had some chest pain off and on today when he coughs. Describes as a sharp pain in the center of his chest when he coughs. He is not complaining chest pain at rest. He has had intermittent headache which he states seems to be when he has coughing episodes. Is not complaining the headache at this time. He does have chronic cough but states it seems to be getting worse. Review of Systems: Review of Systems He has not noticed any fever or chills at home. Is not complaining sore throat. Denies any swelling or asymmetry of the extremities. He generally feels like he has no energy but he denies any focal weakness or paresthesias. He does bruise easily but he denies abnormal bleeding. He has had no vertigo or syncope. He denies feeling anxious or depressed. I did go through review of systems with this patient to include 10 systems and it was negative unless mentioned above in history present illness. Past Medical History: Past Medical History: Diagnosis Date COPD (chronic obstructive pulmonary disease) Emphysema lung Hypertension Lung disease Pacemaker Past Surgical History: Past Surgical History: Procedure Laterality Date AAA REPAIR 01/31/2016 CORONARY STENT PLACEMENT 1997 HEART CATHETERIZATION PACEMAKER PLACEMENT RELEASE CARPAL TUNNEL Right Allergies: Allergies Allergen Reactions Penicillins Hives and Swelling Tamsulosin Other reaction(s): Other (See Comments) Makes him blackout Clopidogrel Itching Medications: Patient's Medications New Prescriptions IPRATROPIUM-ALBUTEROL 0.5-2.5 (3) MG/3ML NEBULIZER SOLUTION Take 3 mL by nebulization 4 times daily. Previous Medications ALBUTEROL (2.5 MG/3ML) 0.083% INHALATION SOLUTION Take 3 mL by nebulization every 6 hours as needed. ALBUTEROL 108 (90 BASE) MCG/ACT AERO SOLN INHALER Inhale 1-2 puffs every 6 hours as needed for Shortness of Breath or Wheezing. ASPIRIN (ECOTRIN LOW STRENGTH) [address] TABLET Take 1 tablet by mouth daily. ATORVASTATIN 10 MG TABLET Take 1 tablet by mouth daily. BUDESONIDE-FORMOTEROL (SYMBICORT) 160-4.5 MCG/PUFF AEROSOL INHALER Inhale 2 puffs every 12 hours. DICYCLOMINE 10 MG CAPSULE Take 1 capsule by mouth 3 times daily as needed for Abdominal Spasms. GUAIFENESIN 600 MG TAB SR 12 HR TABLET SR Take 1 tablet by mouth 2 times daily as needed. METOPROLOL 25 MG TAB REGULAR RELEASE Take 0.5 tablets by mouth 2 times daily. MIDODRINE 5 MG TABLET Take 1 tablet by mouth daily. NITROGLYCERIN 0.[address] 1 tablet under tongue every 5 minutes as needed for Chest pain. max = 3 doses. If CP persists after 3rd dose, call 911 ONDANSETRON 4 MG TAB DISPERSIBLE TABLET Take 1 tablet by mouth every 8 hours as needed for Nausea for up to [address] on tongue PRAMIPEXOLE DIHYDROCHLORIDE 0.125 MG TABLET Take 1 tab 3 to 4 hours prior to bedtime PREDNISONE 20 MG TABLET Take 1 tablet by mouth 2 times daily. TIOTROPIUM (SPIRIVA RESPIMAT) 2.5 MCG/ACT AERO SOLN INHALER Inhale 2 puffs daily. Modified Medications No medications on file Discontinued Medications No medications on file Family History: Family History Problem Relation Age of Onset Dysrhythmia Mother Dysrhythmia Brother Myocardial Infarction Brother Social History: Social History Socioeconomic History Marital status: Single Spouse name: Not on file Number of children: Not on file Years of education: Not on file Highest education level: Not on file Occupational History Not on file Social Needs Financial resource strain: Not on file Food insecurity Worry: Not on file Inability: Not on file Transportation needs Medical: Not on file Non-medical: Not on file Tobacco Use Smoking status: Current Every Day Smoker Packs/day: 0.25 Smokeless tobacco: Never Used Substance and Sexual Activity Alcohol use: No Drug use: No Sexual activity: Not on file Lifestyle Physical activity Days per week: Not on file Minutes per session: Not on file Stress: Not on file Relationships Social connections Talks on phone: Not on file Gets together: Not on file Attends spiritism service: Not on file Active member of club or organization: Not on file Attends meetings of clubs or organizations: Not on file Relationship status: Not on file Intimate partner violence Fear of current or ex partner: Not on file Emotionally abused: Not on file Physically abused: Not on file Forced sexual activity: Not on file Other Topics Concern Service Not Asked Blood Transfusions Not Asked Caffeine Concern Not Asked Occupational Exposure Not Asked Hobby Hazards Not Asked Sleep Concern Not Asked Stress Concern Not Asked Weight Concern Not Asked Special Diet Not Asked Back Care Not Asked Exercise Not Asked Bike Helmet Not Asked Seat Belt Not Asked Domestic Violence No Social History Narrative Not on file Physical Exam: Physical Exam [age] male who is awake and alert. He is speaking in full sentences. He does have occasional use of accessory muscles. He is not against pursed lips. Sclera conjunctiva clear moist mouth has pink moist mucosa. Neck is supple and trachea is midline. There is no obvious JVD. He has good range of motion neck without difficulty. No crepitus or subcutaneous emphysema. He does have increased AP diameter the chest. Lungs have diminished breath sounds bilaterally. He has some coarse rhonchi with some expiratory wheezing. Expiratory phase is prolonged. Heart is regular with distant heart sounds. He does have a pacemaker in place. There is no overlying erythema or warmth. No tenderness over this. Abdomen is soft and nontender. He has no pitting peripheral edema. Radial pulses are symmetrical. There is no tenderness over the back. Skin is warm and dry. No rash. No cyanosis or mottling. He does move all extremities on command. His radial pulses are symmetrical but I can feel just very weak dorsalis pedis pulses. Capillary refill is less than 2 seconds distally however. Skin is warm. Vital Signs During ED Visit Patient Vitals for the past 24 hrs: BP Temp Temp src Pulse Resp SpO2 Weight 05/03/20 2246 148/78 61 15 99 % 05/03/20 2144 164/80 59 19 100 % 05/03/204 98 % 05/03/202040 174/80 98 F (36.7 C) Oral 59 18 100 % 05/03/202038 70 kg (154 lb 4.8 oz) Orders/Results: EKG: Atrial paced rhythm at 60 bpm. QRS duration is 82 ms. [place] is rightward. There is non-specific ST-T wave changes present on the tracing. Orders Placed This Encounter XR CHEST PA AND LATERAL Troponin I, High sensitivity COMPREHENSIVE METABOLIC PANEL CBC, EDIF, PLATELET B-TYPE NATRIURETIC PEPTIDE (BRAIN) AMB REFERRAL TO PULMONARY AMB REFERRAL TO INTERNAL MEDICINE ECG ipratropium-albuterol (DUONEB) 0.5-2.5 (3) MG/3ML nebulizer solution 3 mL methylPREDNISolone sodium succinate (SOLU-MEDROL) injection 80 mg ondansetron 4mg/2ml (ZOFRAN) injection 4 mg pantoprazole (PROTONIX) injection 40 mg diphenhydrAMINE (BENADRYL) injection 12.5 mg magnesium sulfate 2 g/50 mL in sterile water premix IVPB 2 g 50 mL (total volume) ipratropium-albuterol 0.5-2.5 (3) MG/3ML nebulizer solution Results for orders placed or performed during the hospital encounter of 05/03/20 TROPONIN I, HIGH SENSITIVITY Result Value Ref Range TROPONIN I, HIGH SENSITIVITY 2 0 - 20 pg/mL COMPREHENSIVE METABOLIC PANEL Result Value Ref Range GLUCOSE 95 70 - 100 MG/DL BUN 33 (H) 7 - 20 MG/DL CREATININE SERUM 1.17 0.66 - 1.25 MG/DL SODIUM 138 136 - 145 MMOL/L POTASSIUM 4.6 3.5 - 5.1 MMOL/L CHLORIDE 104 98 - 107 MMOL/L CALCIUM 9.5 8.4 - 10.2 MG/DL PROTEIN, TOTAL 7.1 6.3 - 8.2 GM/DL ALBUMIN 4.2 3.5 - 5.0 G/dl BILIRUBIN, TOTAL 0.7 0.2 - 1.2 MG/DL AST 15 15 - 41 IU/L ALKALINE PHOSPHATASE 50 38 - 126 IU/L CARBON DIOXIDE (CO2) 26 22 - 30 MMOL/L A/G Ratio 1.4 1.3 - 2.2 RATIO ALT 15 (L) 17 - 63 IU/L ESTIMATED GFR, NON AMER >60 ml/min/1.73sq.m ESTIMATED GFR, >60 ml/min/1.73sq.m GFR COMMENT Average GFR for 70+ years old = 75. CBC, EDIF, PLATELET Result Value Ref Range WBC (WHITE BLOOD COUNT) 5.8 3.6 - 11.0 10*3/uL RBC 3.85 (L) 4.0 - 6.1 10*6/uL HEMOGLOBIN (HGB) 11.9 (L) 14.0 - 18.0 G/DL HEMATOCRIT (HCT) 35.8 (L) 42.0 - 52.0 % MEAN CELL VOLUME 93.1 80.0 - 100.0 FL Mean Cell HGB 31.0 26.0 - 35.0 PG MEAN CELL HGB CONCENTRATION 33.3 27.0 - 37.0 G/DL RBC DISTRIBUTION 15.6 (H) 11.5 - 14.5 % PLATELET COUNT 195 130.0 - 400.0 10*3/uL MEAN PLATELET VOLUME 8.2 7.4 - 11.0 FL DIFFERENTIAL TYPE AUTO DIFF % NEUTROPHILS 80.4 (H) 37.0 - 75.0 % LYMPHOCYTE 12.1 (L) 20.0 - 55.0 % MONOCYTE % 6.5 0.0 - 10.0 % EOSINOPHIL % 0.5 0.0 - 11.0 % BASOPHIL % 0.5 0.0 - 2.0 % Absolute Neutrophil Count 4.7 1.4 - 6.5 10*3/uL LYMPHOCYTES, ABSOLUTE 0.70 (L) 1.2 - 3.4 10*3/uL MONOCYTES, ABSOLUTE 0.4 0.0 - 0.7 10*3/uL ABSOLUTE EOSINOPHIL COUNT 0.00 0.0 - 0.7 10*3/uL ABSOLUTE BASOPHIL COUNT 0.0 0.0 - 0.2 10*3/uL B-TYPE NATRIURETIC PEPTIDE (BRAIN) Result Value Ref Range BRAIN NATRIURETIC PEPTIDE 129 (H) 0 - 100 pg/mL Radiographic Imaging XR CHEST PA AND LATERAL Final Result IMPRESSION: Nonacute portable chest with chronic changes and findings of [id number] COPD. Procedures: Procedures Moderate Sedation Procedure: No ED Summary/MDM Patient feels markedly improved after treatment in emergency department. He states he is back to his baseline and like to go home. I reexam he has much better air movement bilaterally. He still has some coarse rhonchi bilaterally. He is speaking to me in full sentences. He still has steroids to take over the next few days. He is to continue this prescription. He has an aerosol machine at home. I did give him a prescription for DuoNeb unit dose for the aerosol machine. I have asked him to use the DuoNeb aerosol every 4-5 hours while awake for the next 5 days. He is referred to Dr. Townsend for pulmonology. I did place ambulatory referral. He is also to follow-up this primary care provider, Dr. Mendoza. He is to call tomorrow to schedule follow-up for next week. Ambulatory referral was placed in the computer. I spoke at length with the patient and his daughter. I went over treatment and home going instructions outlined. They voiced understanding and had no further questions at this time. The patient is discharged in improved condition with his daughter. Clinical Impression: 1. COPD with acute exacerbation 2. Chest pain, unspecified type 3. Weakness generalized No follow-ups on file. New Prescriptions IPRATROPIUM-ALBUTEROL 0.5-2.5 (3) MG/3ML NEBULIZER SOLUTION Take 3 mL by nebulization 4 times daily. Discontinued Medications No medications on file An After Visit Summary was printed and given to the patient with above information. . Sergio Fuentes MD 05/03/20 2715 at bedside. documented in this encounter Addendum Note - Val Bell LPN - 09/20/2020 11:00 AM EST Miscellaneous Notes (unrecog nized section and content) Addended by: VAL BELL on: 09/20/2020 12:37 PM Modules accepted: Orders documented in this encounter Scheduled Active and Recently Administ ered Medications (unrecognized section and content) Scheduled Medication Order 02/17/2021 02/18/2021 02/19/2021 iodixanol (VISIPAQUE) 320 MG/ML injection 75 mL (COMPLETED) 75 mL, Intravenous, ONCE, 1 dose, On Thu02/19/21 at 0845, Extravasation Risk, Radiology Procedure 0809 (Given - Radiol ogy - Provider: Carmelina Brooks) ipratropium-albuterol (DUONEB) 0.5-2.5 (3) MG/3ML nebulizer solution 3 mL (COMPLETED) 3 mL, Nebulization, ONCE, 1 dose, On Thu02/19/21 at 0745 0729 (Given - Provid er: Mora Aguiar, EUN - Comment: iso) ipratropium-albuterol (DUONEB) 0.5-2.5 (3) MG/3ML nebulizer solution 3 mL (COMPLETED) 3 mL, Nebulization, ONCE, 1 dose, On Thu02/19/21 at 0745 0728 (Given - Provid er: Mora Aguiar, EUN) levoFLOXacin (LEVAQUIN) 750 mg in dextrose 5% premix IVPB (COMPLETED) 750 mg, Intravenous, Administer over 90 Minutes, ONCE, 1 dose, On Thu02/19/21 at 0745 0754 ($$New Bag$$ - Provider: Remedios Jones RN)0929 (Stopped - Provider: Remedios Jones RN) methylPREDNISolone sodium succinate (SOLU-MEDROL) injection 125 mg (COMPLETED) 125 mg, Intravenous, ONCE, 1 dose, On Thu02/19/21 at 0745 0719 (Given - Provid er: Remedios Jones RN) sodium chloride 0.9% IV solution 75 mL (COMPLETED) 75 mL, Intravenous, ONCE, 1 dose, On Thu02/19/21 at 0845, Radiology Procedure 0809 ($$New Bag$$ - Provider: Carmelina Brooks) Scheduled Medication Order 02/24/2021 02/25/2021 02/26/[address] 81 mg 81 mg, Oral, DAILY, First dose on Thu02/26/21 at 0900, Until Discontinued 0842 (Given - Provid er: Sharri Gandhi RN) atorvastatin (LIPITOR) tablet 10 mg 10 mg, Oral, DAILY, First dose on Thu02/26/21 at 0900, Until Discontinued 0842 (Given - Provid er: Sharri Gandhi RN) azithromycin (ZITHROMAX) 500 mg in sodium chloride 0.9% 250 mL (total volume) IVPB 500 mg, Intravenous, Administer over 60 Minutes, EVERY 24 HOURS, First dose on Thu02/26/21 at 0900, Until Discontinued 0843 ($$New Bag$$ - Provider: Sharri Gandhi RN) azithromycin (ZITHROMAX) tablet 500 mg (COMPLETED) 500 mg, Oral, ONCE, 1 dose, On Thu02/25/21 at 1215 1250 (Given - Provider: Siri Ley, STANISLAW) enOXAParin (LOVENOX) injection 40 mg 40 mg, Subcutaneous, DAILY, First dose on Thu02/26/21 at 0900, Until Discontinued, Indications: DVT/PE prophylaxis 0841 (Given - Provid er: Sharri Gandhi RN) fluticasone (FLONASE) 50 MCG/ACT nasal spray 2 spray 2 spray, Nasal, DAILY, First dose on Thu02/26/21 at 0900, Until Discontinued, Dose is for each nostril. 1152 (Given - Provid er: Sharri Gandhi RN) iodixanol (VISIPAQUE) 320 MG/ML injection 75 mL (COMPLETED) 75 mL, Intravenous, ONCE, 1 dose, On Thu02/25/21 at 1100, Extravasation Risk, Radiology Procedure 1006 (Given - Radiology - Provider: Carmelina Brooks) ipratropium-albuterol (DUONEB) 0.5-2.5 (3) MG/3ML nebulizer solution 3 mL (COMPLETED) 3 mL, Nebulization, ONCE, 1 dose, On Thu02/25/21 at 0945 0910 (Given - Provider: Cierra Tomas, EUN) ipratropium-albuterol (DUONEB) 0.5-2.5 (3) MG/3ML nebulizer solution 3 mL 3 mL, Nebulization, EVERY 6 HOURS, First dose (after last modification) on Thu02/25/21 at 1900, Until Discontinued 1938 (Given - Provider: Monika Hall, RAIL SETTER) 0057 (Given - Provider: Monika Hall, RAIL SETTER)0726 (Given - Provider: Nba Barker, RT)1243 (Given - Provider: Oma Ken, EUN) magnesium sulfate 2 g/50 mL in sterile water premix IVPB 2 g 50 mL (total volume) 2 g, Intravenous, Administer over 4 Hours, DAILY, First dose on Thu02/26/21 at 0600, Until Discontinued, Give if magnesium is less than 2 on morning labs. Infuse at a rate of 0.5 gm/hour. 0742 (Not Given - Provider: Sharri Gandhi RN - Reason: Order Parameters not met) methylPREDNISolone sodium succinate (SOLU-MEDROL) injection 125 mg (COMPLETED) 125 mg, Intravenous, ONCE, 1 dose, On Thu02/25/21 at 1145 1128 (Given - Provider: Siri Ley RN) methylPREDNISolone sodium succinate (SOLU-MEDROL) injection 40 mg (CANCELED) 40 mg, Intravenous, EVERY 6 HOURS, First dose on Thu02/25/21 at 1945, Until Discontinued 2105 (Given (IVP/IVPB) - Provider: Skylar Ny RN) methylPREDNISolone sodium succinate (SOLU-MEDROL) injection 40 mg 40 mg, Intravenous, EVERY 6 HOURS NON-STANDARD, First dose (after last modification) on Thu02/26/21 at 0300, Until Discontinued 2100 (Given (IVP/IVPB) - Provider: Skylar Ny RN) 024 (Given - Provider: Skylar Ny RN)0842 (Given - Provider: Sharri Gandhi RN)1500 (Canceled Entry - Provider: System Discharge - Comment: Automatically canceled at discontinue of medication order) midodrine (ProAmatine) tablet 5 mg 5 mg, Oral, 3 TIMES DAILY, EVERY 6 HOURS, First dose on Thu02/25/21 at 1945, Until Discontinued 2101 (Given - Provider: Skylar Ny RN) 0612 (Given - Provider: Skylar Ny RN)1046 (Not Given - Provider: Sharri Gandhi RN - Reason: Order Parameters not met) ondansetron 4mg/2ml (ZOFRAN) injection 4 mg (COMPLETED) 4 mg, Intravenous, ONCE, 1 dose, On Thu02/25/21 at 0945 0916 (Given - Provider: Marycruz Lion, STANISLAW) pantoprazole (PROTONIX) tablet DR 40 mg 40 mg, Oral, DAILY, First dose on Thu02/26/21 at 0900, Until Discontinued, Do not crush., Indications: Inpt Stress Ulcer Prophylaxis 0842 (Given - Provid er: Sharri Gandhi RN) potassium chloride (K-DUR) tablet ER 40 mEq(Linked Group 1) 40 mEq, Oral, DAILY, First dose on Thu02/26/21 at 0600, Until Discontinued, Give if potassium is 3.1 to 3.4 on morning labs and patient is able to tolerate oral medications Swallow tablets whole; do not crush, chew, or suck on tablet. Tablet may also be broken in half and each half swallowed separately. 0743 (Not Given - Provider: Sharri Gandhi RN - Reason: Order Parameters not met) potassium chloride 40 mEq in 0.9% sodium chloride 500 ml IVPB(Linked Group 1) 40 mEq, Intravenous, at 125 mL/hr, Administer over 4 Hours, DAILY, First dose on Thu02/26/21 at 0600, Until Discontinued, Give if potassium is less than 3.1 on morning labs OR if potassium is 3.1 to 3.4 on morning labs and patient is UNABLE to tolerate oral medications 0743 (See Alternativ e - Provider: Sharri Gandhi RN) sodium chloride 0.9% IV solution 1,000 mL (COMPLETED) 1,000 mL, Intravenous, ONCE, 1 dose, On Thu02/25/21 at 0945 0915 ($$New Bag$$ - Provider: Marycruz Lion RN)1030 (Stopped - Provider: Siri Ley RN) sodium chloride 0.9% IV solution 500 mL (COMPLETED) 500 mL, Intravenous, ONCE, 1 dose, On Thu02/25/21 at 1145 1127 ($$New Bag$$ - Provider: Siri Ley RN)1411 (Stopped - Provider: Siri Ley RN) sodium chloride 0.9% IV solution 75 mL (COMPLETED) 75 mL, Intravenous, ONCE, 1 dose, On Thu02/25/21 at 1100, Radiology Procedure 1006 ($$New Bag$$ - Provider: Carmelina Brooks)1550 (Stopped - Provider: Siri Ley RN) Continuous Medication Order 02/24/2021 02/25/2021 02/26/2021 sodium chloride 0.9% IV solution Intravenous, at 75 mL/hr, CONTINUOUS, Starting on Thu02/25/21 at 1945, Until Thu02/26/21 at 1602 2101 ($$New Bag$$ - Provider: Skylar Ny RN) 0843 ($$New Bag$$ - Provider: Sharri Gandhi RN) PRN Medication Order 02/24/2021 02/25/2021 02/26/2021 acetaminophen (TYLENOL) tablet 325-650 mg 325-650 mg, Oral, EVERY 4 HOURS NEEDED, Starting on Thu02/25/21 at 1938, Until Thu02/26/21 at 1602, Mild Pain, Maximum dose of acetaminophen is 4000 mg from all sources in 24 hours. labetalol (NORMODYNE) injection 20 mg 20 mg, Intravenous, EVERY 4 HOURS NEEDED, Starting on Thu02/25/21 at 1938, Until Thu02/26/21 at 1602, systolic blood pressure greater than 160, Administration duration: up to 20 mg over 2 minutes. ondansetron 4mg/2ml (ZOFRAN) injection 4 mg 4 mg, Intravenous, EVERY 4 HOURS NEEDED, Starting on Thu02/25/21 at 1938, Until Thu02/26/21 at 1602, Nausea / Vomiting potassium phosphates 30 mmol in sodium chloride 0.9%, with overfill 535 mL (total volume) IVPB 30 mmol, Intravenous, Administer over 6 Hours, NEEDED, Starting on Thu02/25/21 at 1938, Until Thu02/26/21 at 1602, Other, If phospate <2.5, give 30mmol, Extravasation Risk sodium chloride (PF) 0.9 % injection 5 mL 5 mL, Intravenous, ADMINISTER DIRECTED, Starting on Thu02/25/21 at 1939, Until Thu02/26/21 at 1602, Flush, per IV Care Guidelines Linked Groups Order Group 1: potassium chloride (K-DUR) tablet ER 40 mEqJump to med 40 mEq, Oral, DAILY, First dose on Thu02/26/21 at 0600, Until Discontinued
Give if potassium is 3.1 to 3.4 on morning labs and patient is able to tolerate oral medications Swallow tablets whole; do not crush, chew, or suck on tablet. Tablet may also be broken in half and each half swallowed separately.
Or potassium chloride 40 mEq in 0.9% sodium chloride 500 ml IVPBJump to med 40 mEq, Intravenous, at 125 mL/hr, Administer over 4 Hours, DAILY, First dose on Thu02/26/21 at 0600, Until Discontinued
Give if potassium is less than 3.1 on morning labs OR if potassium is 3.1 to 3.4 on morning labs and patient is UNABLE to tolerate oral medications
Care Teams (unrecognized sec tion and content) Pole Shaver Relationship Specialty Start Date End Date Charleen Mendoza MD [address] [place] [address] [id number] PCP - General Internal Medicine 07/11/19 Pole Shaver Relationship Specialty Start Date End Date Charleen Mendoza MD [address] [place] [address] [id number] PCP - General Internal Medicine 07/11/19 Pole Shaver Relationship Specialty Start Date End Date Charleen Mendoza MD [address] [place] [address] [id number] PCP - General Internal Medicine 07/11/19 Pole Shaver Relationship Specialty Start Date End Date Charleen Mendoza MD [address] [place] [address] [id number] PCP - General Internal Medicine 07/11/19 Pole Shaver Relationship Specialty Start Date End Date Charleen Mendoza MD [address] [place] [address] [id number] PCP - General Internal Medicine 07/11/19 Pole Shaver Relationship Specialty Start Date End Date Estephania Persaud MD [address] [place] [id number] PCP - General Pulmonary Disease 07/10/23 <item> Privacy Markings (unrecogniz ed section and content) Section Author: Rubina Montanez PROHIBITION ON REDISCLOSURE OF CONFIDENTIAL INFORMATION This notice accompanies a disclosure of information concerning a client made to you with the consent of such client. FOR RECORDS PERTAINING TO PATIENTS WHO ARE OR HAVE BEEN ENROLLED IN A CHEMICAL DEPENDENCY/SUBSTANCEABUSE PROGRAM, SOME INFORMATION MAY BE OMITTED. This clinical summary was aggregated from multiple sources. Caution should be exercised in using it in the provision of clinical care. This summary normalizes information from multiple sources, and as a consequence, information in this document may materially change the coding, format and clinical context of patient data. In addition, data may be omitted in some cases. CLINICAL DECISIONS SHOULD BE BASED ON THE PRIMARY CLINICAL RECORDS. [facility]. provides no warranty or guarantee of the accuracy or completeness of information in this document.
[2023-08-05 17:18] VITALS: PULSE 60; RESP 17; O2SAT 100
[2023-08-05] MEDS: Benzonatate 100 MG Capsule 200 MG PO (17:37)
[2023-08-05] MEDS: levoFLOXacin 750 MG Tablet PO (17:37)
== END 2023-08-05 17:47 | disposition home or self-care (01) ==
PROVIDERS: Emergency Provider Emergency Medicine; PCP Internal Medicine; Visit Provider Emergency Medicine
DX: R04.2 Hemoptysis (principal); I48.0 Paroxysmal atrial fibrillation; J18.9 Pneumonia, unspecified organism; F17.200 Nicotine dependence, unspecified, uncomplicated; I25.2 Old myocardial infarction; I25.10 Atherosclerotic heart disease of native coronary artery without angina pectoris; Z79.01 Long term (current) use of anticoagulants; Z95.0 Presence of cardiac pacemaker; Z95.5 Presence of coronary angioplasty implant and graft
CPT/HCPCS: 71275; 80048; 84484; 85025; 87631; 93005; 99283; Q9967; A4216

== ENCOUNTER → 2023-10-20 | Outpatient (CLI) | payer MEDICARE, SELFPAY ==
--- NOTE | 2023-10-20 07:47 | AAVD_ITS ---
Reason For Study: AAA w/repair Aorta Measurements Aorta Doppler Measurements Proximal aorta measures2.57 x 2.71cm. in cross- Peak systolic flow velocities within the proximal sectional axis. aorta measure 54.8 cm/sec. Proximal aorta measures2.51cm. in longitudinal Peak systolic flow velocities within the mid aorta axis. measure 39.5 cm/sec. Mid aorta measures1.98 x 1.98cm. in cross- Limb 1, 48.8 cm/sec. sectional axis. Limb 2, 36.5 cm/sec. Mid aorta measures1.93cm. in longitudinal axis. Distal Aorta, residual sac, 1.84 x 3.02 x 2.76 cm. Limb 1, 1.21 x 1.20 x 1.25 cm. Limb 2, 1.23 x 1.25 x 1.20 cm. Left Iliac Artery Left iliac artery measures 1.42 x 1.42 cm. in the cross-sectional axis. Left iliac artery measures 1.42 cm. in the longitudinal axis. Peak systolic velocity in the left iliac artery measures 32.7 cm/sec. Right Iliac Artery Right iliac artery measures 1.60 x 1.57 cm. in the cross-sectional axis. Right iliac artery measures 1.35 cm. in the longitudinal axis. Peak systolic velocity in the right iliac artery measures 34.5 cm/sec. Procedure Aorta IVC Iliac vasculature or bypass grafts [id number]. Exam performed in department. 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 Right iliac limb patent with normal velocities Left iliac limb patent with normal velocities Ordering Physician: Nimesh Valentin Referring Physician: Brittany Persaud M.D. Performed By: Antoinette Garcia RVT
--- NOTE | 2023-10-20 07:47 | CDU_ITS ---
Reason For Study: Carotid artery stenosis Rt. Velocities/BP Lt. Velocities/BP Prox CCA 76.8/19.2 cm/sec. Prox CCA 84.6/24.3 cm/sec. Mid CCA 75.9/25.8 cm/sec. Mid CCA 57/13.5 cm/sec. Dist CCA 71.1/18.2 cm/sec. Dist CCA 42.9/10.9 cm/sec. Prox ICA 56.3/15.7 cm/sec. Prox ICA 94.9/26.7 cm/sec. Mid ICA 112/42.6 cm/sec. Mid ICA 86.1/30 cm/sec. Dist ICA 87.6/33.5 cm/sec. Dist ICA 110.9/40.9 cm/sec. Rt. ICA/CCA = 1.46. Lt. ICA/CCA = 1.9. Prox ECA 80.6/9.7 cm/sec. Prox ECA 51.5/7.3 cm/sec. Rt. Vert. 47.6/13.5 cm/sec. Lt. Vert. 79/22.5 cm/sec. Right Extracranial There is homogeneous, smooth atherosclerotic plaque noted in the right common carotid artery. There is heterogeneous, irregular atherosclerotic plaque noted in the right internal carotid artery. There is heterogeneous, irregular atherosclerotic plaque noted in the right external carotid artery. Antegrade flow is noted in the right vertebral artery. Left Extracranial There is homogeneous, smooth atherosclerotic plaque noted in the left common carotid artery. There is heterogeneous, irregular atherosclerotic plaque noted in the left internal carotid artery. There is heterogeneous, irregular atherosclerotic plaque noted in the left external carotid artery. Antegrade flow is noted in the left vertebral artery. Procedure Carotid Duplex [id number]. This is a Carotid Duplex examination using B-mode, color flow and specral Doppler. Exam performed in department. VL/Carotid Duplex Ultrasound Interpretation Summary Mild (<50%) stenosis right extracranial internal carotid. Mild (<50%) stenosis left extracranial internal carotid. Patent and antegrade vertebrals bilaterally. Ordering Physician: Nimesh Valentin Referring Physician: Brittany Persaud M.D. Performed By: Antoinette Garcia RVT and Student
== END | disposition home or self-care (01) ==
LOC: CVS 07:43
PROVIDERS: PCP Internal Medicine; Referring Provider Internal Medicine Cardiovascular Disease; Visit Provider Internal Medicine Cardiovascular Disease
DX: I65.23 Occlusion and stenosis of bilateral carotid arteries (principal); I25.10 Atherosclerotic heart disease of native coronary artery without angina pectoris; I10 Essential (primary) hypertension; Z95.0 Presence of cardiac pacemaker; Z86.79 Personal history of other diseases of the circulatory system
CPT/HCPCS: 93880; 93978

== ENCOUNTER → 2024-01-05 | Outpatient (CLI) | payer MEDICARE, SELFPAY ==
--- NOTE | 2024-01-05 12:29 | STRESSREP_ITS ---
Stress Test Report Date: 01/05/2024 Procedure: Pharmacologic stress nuclear imaging study Indications: Chest pain Consent: Per the patient Procedure: The patient underwent pharmacologic (Regadenoson 0.4mg ) evaluation with a peak heart rate of 67 beats per minute (46%predicted maximal heart rate) and a peak blood pressure of 142/84 mmHg. The baseline ECG demonstrated electronic ventricular pacemaker activity. The peak pharmacologic ECG demonstrated no diagnostic changes secondary to electronic ventricular pacemaker. There were no cardiac dysrhythmias pretest, during pharmacologic infusion, or recovery. Patient complained of chest pain during recovery. The chest pain was resolved with sublingual nitroglycerin. The patient was injected with 11.9 millicuries of technetium 99m Cardiolite and subsequently rest SPECT Cardiolite nuclear imaging was obtained in the horizontal long, vertical long, and short axis views. The patient underwent pharmacologic (Regadenoson) evaluation. The patient was injected with 33.7 millicuries of technetium 99m Cardiolite and subsequently stress SPECT Cardiolite nuclear imaging was obtained in the horizontal long, vertical long, and short axis views. A gated Cardiolite study at peak stress was obtained. The examination was stopped secondary to completion of protocol. Rest and stress SPECT Cardiolite nuclear imaging status post realignment, normalization, and attenuation correction demonstrate small reversible perfusion defect of the apex. There is end systolic thickening and brightening. The gated study showed inferior hypokinesis. The reported LVEF is 43%. Impression: 1. Pharmacologic (Regadenoson) evaluation 2. Peak pharmacologic ECG with no diagnostic changes. 3. There were no cardiac dysrhythmias pretest, during pharmacologic infusion, or recovery. 5. Small reversible perfusion defect of the apex suggestive of mild ischemia. 6. The gated Cardiolite study reports an LVEF of 43%. This note was generated with [employer] software. It may contain incorrect words, spelling, and punctuation that were not noted in checking the note before signing.
== END | disposition home or self-care (01) ==
PROVIDERS: PCP Internal Medicine; Referring Provider Internal Medicine Cardiovascular Disease; Visit Provider Internal Medicine Cardiovascular Disease
DX: R07.9 Chest pain, unspecified (principal); I48.0 Paroxysmal atrial fibrillation; I25.10 Atherosclerotic heart disease of native coronary artery without angina pectoris; I65.29 Occlusion and stenosis of unspecified carotid artery; Z95.5 Presence of coronary angioplasty implant and graft; Z95.0 Presence of cardiac pacemaker
CPT/HCPCS: 78452; 93017; A9500; A4216; J2785

== ENCOUNTER 2024-01-12 10:55 | Day surgery (SDC) | payer MEDICARE, SELFPAY ==
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
--- NOTE | 2024-01-11 12:18 | RAD_ITS ---
STUDY: X-RAY CHEST REASON FOR EXAM: Male, 78 years old. Abnormal stress test. TECHNIQUE: Frontal and lateral views of the chest. COMPARISON: July 22, 2023 FINDINGS: Marked hyperinflation with flattening of the hemidiaphragms compatible with moderate to marked COPD, unchanged. Stable mild pectus excavatum defect. There is no demonstrated pleural abnormality. Mild cardiomegaly with dual lead cardiac pacer unchanged. Normal mediastinum and jonah. Stable prominent central pulmonary arteries. Aortic tortuosity with calcification unchanged. Thoracic osteopenia with diffuse mild thoracic spondylosis. Normal visualized ribs, clavicles, and shoulders. No abnormality of the visualized soft tissue structures of the upper abdomen. RAD/Chest PA and Lateral IMPRESSION: Stable chest with findings compatible with moderate to severe COPD. No acute or emergent finding. Electronically Signed: Donis Siddiqui MD at 10:06 EDT ,
[2024-01-11 13:05] VITALS: BMI 19.6
[2024-01-11 13:20] LABS: Absolute Lymphocyte Count 1.62 X10^3/uL (0.83-4.51); Absolute Neutrophil Count 5.6 X10^3/uL (2.0-7.7); Basophil# 0.12 X10^3/uL; Basophil% 1.5 % (0-1); Eosinophil# 0.17 X10^3/uL; Eosinophils% 2.1 % (0-5); Hematocrit 40.5 % (40-54); Hemoglobin 12.8 g/dL (13.0-16.5); Lymphocyte # 1.62 X10^3/ul (0.83-4.51); Lymphocyte % 19.6 % (19-41); Mean Corp Hgb Conc 31.6 g/dL (32-36); Mean Corpuscular Hgb 30.3 pg (27.0-32.0); Mean Platelet Vol. 10.6 fl (6.2-12.0); Monocyte# 0.72 X10^3/uL; Monocyte% 8.7 % (0-10); NRBC Flagged by Analyzer 0 % (0-5); Neutrophil # 5.61 X10^3/uL (2.7-7.7); Neutrophil % 67.9 % (47-70); Platelet Count 259 K/mm3 (150-450); RBC Distribution Width CV 14.9 % (11.6-14.6); RBC Distribution Width SD 52.8 fl (35.1-43.9); Red Blood Count 4.22 M/mm3 (4.6-6.2); White Blood Count 8.3 K/mm3 (4.4-11.0)
[2024-01-11 13:44] LABS: Anion Gap 4 (5-15); BUN 29 mg/dL (7-18); BUN/Creat Ratio 17.7 RATIO (10-20); Calcium,Total 9.7 mg/dL (8.5-10.1); Chloride 103 mmol/L (98-107); Creatinine, Serum 1.64 mg/dL (0.70-1.30); EST Glomerular Filtration Rate 43 mL/min (>60); Est Glom Filt Rate - Afr Amer 53 mL/min (>60); Estimated Creatinine Clearance 37.03 ml/min; Glucose 87 mg/dL (74-106); Potassium 3.9 mmol/L (3.5-5.1); Sodium Level 137 mmol/L (136-145)
[2024-01-11 14:10] LABS: AST(SGOT) 14 U/L (15-37); Alanine Aminotransfer ALT/SGPT 14 U/L (16-61); Albumin, Serum 3.6 g/dL (3.2-5.0); Alkaline Phosphatase 94 U/L (45-117); Bilirubin, Direct 0.28 mg/dL (0.00-0.30); Cholesterol 102 mg/dL (200); Globulin 3.8 g/dL (2.2-4.2); High Density Lipoprotein 35 mg/dL; Protein, Total 7.4 g/dL (6.4-8.2); Triglycerides 116 mg/dL; Very Low Density Lipoprotein 23 mg/dL (5-40)
--- NOTE | 2024-01-12 12:30 | CL.D_ITS ---
Patient Name: DARIN CHUN Study Date: 01/12/2024 Performing: Nimesh Valentin MD Ht: 74 inches 187.96 cm : 1945 Wt: 153 lbs 69.4 kg Age: 78 Gender: male BSA: 1.94 PROCEDURE(S) PERFORMED DC02-(70754)C/COR CLINICAL PROFILE AND INDICATIONS Heart Failure: None Stress/Imaging Stress Test w/SPECT MPI: Yes Result: Positive Intermediate RiskStress Test with SPECT MPI: Positive Intermediate Risk Angina Classification Anginal Classification w/in 2 Weeks: CCS II CAD Presentations: Stable angina. CONCLUSIONS 80% Mid LAD 80% ostial/Prox LCX 90% ISR distal RCA, 70% Mid RCA RECOMMENDATIONS Surgery consult for coronary revascularization DESCRIPTION OF PROCEDURE The patient arrived to the procedure lab. The risks and benefits of the procedure as well as a full description of our services here and current unavailability of surgical backup were fully explained to the patient and/or their significant other prior to the catheterization. The Timeout was completed, verifying the correct patient and procedure. The patient's procedural site was prepped and draped in the usual fashion. Local anesthetic was given subcutaneously to right radial region with Lidocaine 2%. Using a modified Seldinger technique, arterial access was obtained via the right radial artery, a 6Fr sheath was inserted. Left Coronary Artery selective angiography was performed in multiple views using a 5 Fr. 4.0 [place] catheter. Right Coronary Artery selective angiography was then performed in multiple views using a 5 Fr. 4.0 [place] catheter.The arterial sheath was pulled and a TR Band was applied for hemostasis w/ 11ml air CORONARY ANGIOGRAPHY DOMINANCE: Right Dominant LEFT MAIN: No significant disease noted LEFT ANTERIOR DESCENDING ARTERY: LAD: In-Stent Restenosis 50% Proximal lesion in LAD Tubular 80% Mid lesion in LAD OM 1: Tubular 70% Proximal lesion in MARG2 OM 2: Tubular 70% Proximal lesion in MARG2 RIGHT CORONARY ARTERY: RCA: In-Stent Restenosis 90% Distal lesion in RCA, STENT to 90% Calcified 70% Mid lesion in RCA COMPLICATIONS No Complications PROCEDURE MEDICATIONS Versed 1 mg IV Fentanyl 50 mcg IV Oxygen: 3 L/min via nasal cannula as per home Aspirin (325mg) 1 Tabs PO @ 01/12/2024 09:19:48 Heparin given IA 01/12/2024 11:31:43 Heparin 2000 unit(s) IV 01/12/2024 11:40:00 Verapamil 2.5mg, Ntg 200mcgs, 2000 units of Heparin given IA 01/12/2024 11:31:43 SUMMARY OF HEMODYNAMIC DATA Time AIR REST ECG 09:21:44 Art 128/65 (87) 11:35:39 AO 131/75 (97) SA 11:43:24 Signed By Nimesh Valentin MD On 01/12/2024 12:29:17 Nimesh Valentin MD
== END 2024-01-12 14:09 | disposition home or self-care (01) ==
PROVIDERS: Nurse Practitioner Family; Nurse Practitioner Gerontology; PCP Internal Medicine; Visit Provider Internal Medicine Cardiovascular Disease
DX: I25.118 Atherosclerotic heart disease of native coronary artery with other forms of angina pectoris (principal); J44.9 Chronic obstructive pulmonary disease, unspecified; R07.9 Chest pain, unspecified; I10 Essential (primary) hypertension; F17.200 Nicotine dependence, unspecified, uncomplicated; E78.00 Pure hypercholesterolemia, unspecified; I25.2 Old myocardial infarction; G47.33 Obstructive sleep apnea (adult) (pediatric); Z79.51 Long term (current) use of inhaled steroids; Z79.82 Long term (current) use of aspirin; Z79.899 Other long term (current) drug therapy; Z95.5 Presence of coronary angioplasty implant and graft; Z95.0 Presence of cardiac pacemaker; Z86.16 Personal history of COVID-19
CPT/HCPCS: 36415; 71046; 80048; 80061; 80076; 85025; 93454; 99152; 99153; J7040; Q9967; C1769; C1894

== ENCOUNTER 2024-02-15 11:32 | Emergency (ER) | payer MEDICARE, SELFPAY ==
[2024-02-15] VITALS (33 sets, daily range): BP systolic 104–140; BP diastolic 53–95; PULSE 57–76; RESP 13–18; TEMP 36.6–36.9; O2SAT 92–100; BMI 20.5
--- NOTE | 2024-02-15 12:37 | EKG12_ITS ---
Test Reason : SOB Blood Pressure : / mmHG Vent. Rate : 072 BPM Atrial Rate : 241 BPM P-R Int : 000 ms QRS Dur : 088 ms QT Int : 432 ms P-R-T Axes : 000 -07 -18 degrees QTc Int : 473 ms LIKELY AFIB Otherwise normal ECG Confirmed by STACY BALES, HOLLY ([id number]), editorial director ANJALI BENDER ([id number]) on 02/19/2024 9:54:02 AM Referred By: ES/TB Confirmed By:MAXI KUMAR MD
--- NOTE | 2024-02-15 12:37 | RAD_ITS ---
STUDY: X-RAY CHEST REASON FOR EXAM: Male, 79 years old. Chest pain and shortness of breath. Recent coronary bypass graft. TECHNIQUE: Single AP portable view of the chest. COMPARISON: Comparison is made with prior study dated January 11, 2024. FINDINGS: EKG electrodes are seen. Small bilateral pleural effusions with bibasilar atelectasis and/or infiltrates worse at the left lung base. Clinical correlation recommended. Sternal cerclage wires and vascular clips are present from a prior sternotomy and coronary artery bypass graft procedure (CABG). Mitral valve replacement. A left-sided dual-chamber pacemaker is seen. Normal mediastinum and jonah. Normal visualized pulmonary arteries. Normal visualized aortic arch and descending thoracic aorta. There are diffuse degenerative changes of the visualized thoracic spine. Normal visualized ribs, clavicles, and shoulders. There is no demonstrated abnormality of the visualized soft tissue structures of the upper abdomen. RAD/Chest 1 View (Portable) IMPRESSION: Bilateral pleural effusions left greater than right with bibasilar atelectasis and/or infiltrates more prominent at the left lung base. Status post midline sternotomy and coronary artery bypass graft as well as mitral valve replacement. Electronically Signed: Lico Torrez MD at 12:59 EDT ,
[2024-02-15] MEDS: Ipratropium/Albuterol Sulfate 3 ML AMPUL.NEB INHALATION ×2 (12:46)
[2024-02-15 12:48] LABS: Absolute Lymphocyte Count 0.72 X10^3/uL (0.83-4.51); Absolute Neutrophil Count 6.7 X10^3/uL (2.0-7.7); Basophil# 0.11 X10^3/uL; Basophil% 1.3 % (0-1); Eosinophil# 0.13 X10^3/uL; Eosinophils% 1.6 % (0-5); Hemoglobin 9.1 g/dL (13.0-16.5); Lymphocyte # 0.72 X10^3/ul (0.83-4.51); Lymphocyte % 8.7 % (19-41); Mean Corp Hgb Conc 30.3 g/dL (32-36); Mean Corpuscular Hgb 29.2 pg (27.0-32.0); Mean Corpuscular Volume 96.2 fL (80-94); Mean Platelet Vol. 10.7 fl (6.2-12.0); Monocyte# 0.59 X10^3/uL; Monocyte% 7.1 % (0-10); NRBC Flagged by Analyzer 0 % (0-5); Neutrophil % 80.8 % (47-70); Platelet Count 382 K/mm3 (150-450); RBC Distribution Width CV 16.2 % (11.6-14.6); RBC Distribution Width SD 56.7 fl (35.1-43.9); Red Blood Count 3.12 M/mm3 (4.6-6.2); White Blood Count 8.3 K/mm3 (4.4-11.0)
[2024-02-15 12:57] LABS: International Normalized Ratio 1.3; Prothrombin Time (Protime)PT. 16.5 SECONDS (11.7-14.9)
[2024-02-15 12:58] LABS: Partial Thromboplast Time 35.8 Seconds (24.1-36.2)
[2024-02-15 13:03] LABS: Allen Test Positive; Base Excess 1 mmol/L (-2 to +2); Blood Gas Specimen Type ART; Mode Not entered; O2 Delivery Device Cannula; PO2 119 mmHG (75-100); SITE R Radial; SO2 99 % (95-99); Total Carbon Dioxide 27 mmol/L; pCO2 42.8 mmHg (35-45); pH 7.39 (7.35-7.45)
[2024-02-15 13:11] LABS: BNP,B-Type NATRIURETIC PEPTIDE 729.2 pg/mL (0-100)
[2024-02-15 13:15] LABS: Anion Gap 2 (5-15); BUN 23 mg/dL (7-18); BUN/Creat Ratio 19.3 RATIO (10-20); Calcium,Total 9.1 mg/dL (8.5-10.1); Chloride 107 mmol/L (98-107); Creatinine, Serum 1.19 mg/dL (0.70-1.30); EST Glomerular Filtration Rate 63 mL/min (>60); Est Glom Filt Rate - Afr Amer 76 mL/min (>60); Estimated Creatinine Clearance 52.32 ml/min; Glucose 87 mg/dL (74-106); Potassium 4.1 mmol/L (3.5-5.1); Sodium Level 139 mmol/L (136-145); Troponin-I HS (w/2H Reflex) 133 pg/mL (3.0-78.0)
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
[2024-02-15 14:14] LABS: Color, Urine Yellow (Yellow); Glucose, Dipstick Normal (Normal); Ketone-Dipstick 5 mg/dl (Negative); Leukocyte Esterase-Dipstick 25 /ul (Negative); Nitrite-Dipstick Negative (Negative); Occult Blood-Urine Negative /ul (Negative); Protein-Dipstick 30 mg/dl (Negative); Specific Gravity, Urine 1.025 (1.002-1.030); Urine Clarity Sl. Cloudy (Clear); Urine Urobilinogen 1 mg/dl (Normal)
[2024-02-15 14:15] LABS: Urine Bilirubin Dipstick 1 mg/dL (Negative)
[2024-02-15 14:21] LABS: Bacteria RARE /hpf (None Seen); Mucous, Urine RARE /hpf (<or=2+); Red Blood Cells-Urine 0-5 SEEN /hpf (0-5); Squamous Epithelial Cells - UA 0-5 SEEN /hpf (0-5); White Blood Cells 0-5 SEEN /hpf (0-5)
[2024-02-15 14:44] LABS: Reflex Troponin-HS? (from REC) Y
--- NOTE | 2024-02-15 15:30 | ED.RN ---
report called to Nedra at [facility], all questions answered.
[2024-02-15 15:37] LABS: Troponin-I HS 126 pg/mL (3.0-78.0)
== END 2024-02-15 18:26 | disposition short-term general hospital (02) ==
PROVIDERS: Emergency Provider Emergency Medicine; PCP Internal Medicine; Visit Provider Emergency Medicine
DX: R07.9 Chest pain, unspecified (principal); J44.9 Chronic obstructive pulmonary disease, unspecified; I10 Essential (primary) hypertension; I25.10 Atherosclerotic heart disease of native coronary artery without angina pectoris; G47.33 Obstructive sleep apnea (adult) (pediatric); I25.2 Old myocardial infarction; Z79.01 Long term (current) use of anticoagulants; Z95.1 Presence of aortocoronary bypass graft; Z87.891 Personal history of nicotine dependence; Z86.16 Personal history of COVID-19; Z95.5 Presence of coronary angioplasty implant and graft
CPT/HCPCS: 36600; 71045; 80048; 81001; 82803; 83880; 84484; 85025; 85610; 85730; 93005; 94640; 99285; A4216

== ENCOUNTER 2024-02-25 16:13 | Inpatient (IN) | payer MEDICARE, SELFPAY ==
[2024-02-25 16:35] VITALS: BP 108/61; PULSE 55; RESP 18; TEMP 36.3; O2SAT 99; BMI 19.6
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
[2024-02-25] MEDS: APIXABAN 5 MG TABLET PO (20:40)
[2024-02-25] MEDS: Senna/Docusate Sodium 1 Tablet 2 TABLET PO (20:41)
[2024-02-25] MEDS: Fluticasone/Salmeterol 232-14 Inhaler 1 PUFF INHALATION (20:42)
[2024-02-25] MEDS: Atorvastatin Calcium 80 MG Tablet PO (20:42)
[2024-02-25 20:45] VITALS: PULSE 88; RESP 18; O2SAT 94
[2024-02-25 20:50] VITALS: BP 106/69; PULSE 76
[2024-02-25] MEDS: Metoprolol Tartrate 25 MG Tablet PO (20:50)
[2024-02-25 23:18] VITALS: O2SAT 97
[2024-02-25 23:20] VITALS: PULSE 71; RESP 22
[2024-02-25] MEDS: Ipratropium/Albuterol Sulfate 3 ML AMPUL.NEB INHALATION (23:20)
[2024-02-25 23:30] VITALS: O2SAT 96
[2024-02-26] MEDS: Albuterol IH (6.7 GM) 1 PUFF INHALER 2 PUFF INHALATION (04:28)
[2024-02-26 07:09] VITALS: O2SAT 93
[2024-02-26 07:22] LABS: Absolute Lymphocyte Count 0.59 X10^3/uL (0.83-4.51); Absolute Neutrophil Count 4.2 X10^3/uL (2.0-7.7); Basophil# 0.01 X10^3/uL; Basophil% 0.2 % (0-1); Eosinophil# 0.02 X10^3/uL; Eosinophils% 0.4 % (0-5); Hematocrit 28.6 % (40-54); Hemoglobin 8.8 g/dL (13.0-16.5); Lymphocyte # 0.59 X10^3/ul (0.83-4.51); Lymphocyte % 11.2 % (19-41); Mean Corp Hgb Conc 30.8 g/dL (32-36); Mean Corpuscular Hgb 28.9 pg (27.0-32.0); Mean Corpuscular Volume 93.8 fL (80-94); Mean Platelet Vol. 11.1 fl (6.2-12.0); Monocyte# 0.47 X10^3/uL; Monocyte% 8.9 % (0-10); NRBC Flagged by Analyzer 0 % (0-5); Neutrophil # 4.15 X10^3/uL (2.7-7.7); Neutrophil % 78.7 % (47-70); POSITIVE DIFFERENTIAL YES; Platelet Count 245 K/mm3 (150-450); RBC Distribution Width CV 15.9 % (11.6-14.6); RBC Distribution Width SD 54.6 fl (35.1-43.9); Red Blood Count 3.05 M/mm3 (4.6-6.2); White Blood Count 5.3 K/mm3 (4.4-11.0)
[2024-02-26 07:55] LABS: Anion Gap 3 (5-15); BUN 36 mg/dL (7-18); BUN/Creat Ratio 21.8 RATIO (10-20); Calcium,Total 9.5 mg/dL (8.5-10.1); Chloride 106 mmol/L (98-107); Creatinine, Serum 1.65 mg/dL (0.70-1.30); EST Glomerular Filtration Rate 43 mL/min (>60); Est Glom Filt Rate - Afr Amer 52 mL/min (>60); Estimated Creatinine Clearance 36.22 ml/min; Glucose 88 mg/dL (74-106); Potassium 4.7 mmol/L (3.5-5.1); Sodium Level 137 mmol/L (136-145)
[2024-02-26] MEDS: Folic Acid 1 MG Tablet PO (08:01)
[2024-02-26] MEDS: Ferrous Sulfate 325 MG Tablet PO (08:01)
[2024-02-26] MEDS: Smz/Tmp Ds Tablet 1 TABLET PO ×2 (08:01→18:22)
[2024-02-26 08:02] VITALS: BP 94/67; PULSE 74
[2024-02-26] MEDS: predniSONE 20 MG Tablet 40 MG PO (08:02)
[2024-02-26] MEDS: APIXABAN 5 MG TABLET PO ×2 (08:02→22:47)
[2024-02-26] MEDS: Metoprolol Tartrate 25 MG Tablet PO ×2 (08:02→22:47)
[2024-02-26] MEDS: Pantoprazole Sodium 20 MG Tablet PO (08:03)
[2024-02-26] MEDS: Cholecalciferol (VIT D3) 25 MCG TABLET (1,000 UNITS) 50 MCG PO (08:03)
[2024-02-26] MEDS: Fluticasone/Salmeterol 232-14 Inhaler 1 PUFF INHALATION ×2 (08:05→22:47)
[2024-02-26] MEDS: Umeclidinium Bromide Inhaler 1 PUFF INHALATION (08:05)
[2024-02-26] MEDS: Fluticasone 0.05% 1 SPRAY NASAL.SRY 2 SPRAY NASAL (08:06)
[2024-02-26 10:00] VITALS: BMI 19.3
--- NOTE | 2024-02-26 10:58 | NURSING ---
Equity Sales Assistant Note; Activity Asset: Kymberly Esparza is independent in his choice of daily activities. He will read if its not a lot, watches tv, enjoys paling card and dominos with his grandson. Staff will encourage group, remind him of weekly activities and respect his right to say no.
[2024-02-26 13:37] VITALS: PULSE 76; RESP 20; O2SAT 92
[2024-02-26] MEDS: Ipratropium/Albuterol Sulfate 3 ML AMPUL.NEB INHALATION (13:37)
[2024-02-26] MEDS: Tuberculin,Purif.prot.deriv. 50 TU/ML Vial 0.1 ML ID (13:42)
[2024-02-26] MEDS: Menthol/Lanolin/Calamine/Znox 113 GM Tube 1 APPLIC TOPICAL ×2 (13:47→22:48)
--- NOTE | 2024-02-26 15:10 | CASEMGMT ---
Social Work SW met with patient to complete initial assessment. Introduced self and role. Verified contacts. Patient confirmed code status as full code. Educated to [facility] insurance and continued stay is not guaranteed with each review. Pt lives at home with ex-DIL and 7 children/grandchildren. Pt states he uses 3-4LPM of O2 at home through [employer], but wishes to switch to another company. SW offered [employer] and pt agreeable. SW to assist with coordination. When verifying contacts, SW explored family history. Pt shared he's had three wives, 5 children. Pt's ex-DIL, Corey (pronounced Jalil) is from pt's son, who is estranged for the past 12 years; Navjot, pt's grandson, is Marcelon's son. Pt's children are in prison, estranged, on drugs and estranged, per pt report. SW provided supportive listening. Pt denied depression or anxiety. SW will continue to follow for DC planning and support. Salina Navas, DATA CONTROL CLERK SUPERVISOR ACID WASH OPERATOR
[2024-02-26 16:00] VITALS: BP 99/57; PULSE 71; RESP 18; TEMP 35.9; O2SAT 97
[2024-02-26 22:47] VITALS: BP 122/76; PULSE 76
[2024-02-26] MEDS: Atorvastatin Calcium 80 MG Tablet PO (22:47)
[2024-02-26 22:52] VITALS: BP 122/76; PULSE 76; O2SAT 98
--- NOTE | 2024-02-27 | NURSING ---
Resident informed this nurse after hs medication administration that he has been coughing up blood. Initially started w/ hemoptysis approximately 6 months ago which lasted for one week. Hemoptysis started again while at [facility] prior to transfer to TCU but has progressively become worse. Denies any clots noted in sputum. This nurse noted one episode of a moderate to lg amount of dark, bloody sputum slightly diluted w/ clear sputum. Reports some midsternal discomfort s/p surgery that is not new. Given pillow and encouraged to splint chest when coughing. Will continue to monitor.
[2024-02-27 02:05] VITALS: PULSE 70; RESP 16
[2024-02-27] MEDS: Ipratropium/Albuterol Sulfate 3 ML AMPUL.NEB INHALATION ×2 (02:05→22:30)
[2024-02-27 06:02] LABS: Hemoglobin 8.4 g/dL (13.0-16.5)
[2024-02-27 08:13] VITALS: BP 104/63; PULSE 76; RESP 18; TEMP 36.7; O2SAT 96
[2024-02-27] MEDS: Albuterol IH (6.7 GM) 1 PUFF INHALER 2 PUFF INHALATION (08:19)
[2024-02-27] MEDS: Ferrous Sulfate 325 MG Tablet PO (08:19)
[2024-02-27] MEDS: Smz/Tmp Ds Tablet 1 TABLET PO (08:19)
[2024-02-27] MEDS: Menthol/Lanolin/Calamine/Znox 113 GM Tube 1 APPLIC TOPICAL ×2 (08:20→22:21)
[2024-02-27] MEDS: Folic Acid 1 MG Tablet PO (08:20)
[2024-02-27] MEDS: predniSONE 20 MG Tablet 40 MG PO (08:20)
[2024-02-27] MEDS: Fluticasone 0.05% 1 SPRAY NASAL.SRY 2 SPRAY NASAL (08:21)
[2024-02-27] MEDS: Fluticasone/Salmeterol 232-14 Inhaler 1 PUFF INHALATION ×2 (08:21→22:26)
[2024-02-27] MEDS: Umeclidinium Bromide Inhaler 1 PUFF INHALATION (08:21)
[2024-02-27] MEDS: APIXABAN 5 MG TABLET PO ×2 (08:21→22:26)
[2024-02-27 08:22] VITALS: PULSE 76
[2024-02-27] MEDS: Metoprolol Tartrate 25 MG Tablet PO ×2 (08:22→22:26)
[2024-02-27] MEDS: Pantoprazole Sodium 20 MG Tablet PO (08:23)
[2024-02-27] MEDS: Cholecalciferol (VIT D3) 25 MCG TABLET (1,000 UNITS) 50 MCG PO (08:23)
--- NOTE | 2024-02-27 10:27 | CPS ---
Spoke to Erickson in pharmacy about patient being on Incruse Ellipta and Duoneb aerosols. Potential side effects of these meds being used together. I spoke to nurse about possibly increasing the frequency of the Albuterol MDI. RN will address this with Dr. Castro.
--- NOTE | 2024-02-27 11:16 | EKG12_ITS ---
Test Reason : CHEST TIGHTNESS Blood Pressure : / mmHG Vent. Rate : 072 BPM Atrial Rate : 072 BPM P-R Int : 000 ms QRS Dur : 170 ms QT Int : 498 ms P-R-T Axes : 000 116 080 degrees QTc Int : 545 ms Ventricular-paced rhythm with occasional supraventricular complexes Abnormal ECG When compared with ECG of 15-FEB-2024 11:39, Previous ECG has undetermined rhythm, needs review Confirmed by JAMIR BALES, YOGESH ([id number]), loan expeditor ANJALI BENDER ([id number]) on 02/29/2024 2:12:26 PM Referred By: Dirk Castro Confirmed By:YOGESH BOWIE MD
--- NOTE | 2024-02-27 11:28 | NURSING ---
Addendum entered by Ulices Barkley 02/27/24 15:41: Patient returned to unit at this time. Addendum entered by Ulices Barkley 02/27/24 12:14: Patient exited the unit at 1135. Original Note: Patient called out to nursing not feeling well. Patient c/o shortness of breath and chest pain. Stat EKG placed. BP 83/53. HR 78 and irregular. Patient poor in color, pale. Nursing transferred patient to bed. Patient became dizzy and almost passed out. SpO2 trending down from 99% on 4L to 90%. Call placed to Dr. Castro. Order to send patient to ER for evaluation. Report called to nurse Shannan. Patient updated. No further questions at this time.
[2024-02-27 11:30] VITALS: O2SAT 90
--- NOTE | 2024-02-27 11:39 | NURSING ---
Patient c/o chest discomfort, dizziness. EKG completed. VS obtained, BP low, decrease in SpO2. Call placed to Dr. Castro. New order to send to ED for evaluation. Family aware.
--- NOTE | 2024-02-27 14:48 | NURSING ---
Call received from Dr. Castro. New orders received. Patient to start IV Levaquin x7 days pharmacy to dose. D/C Bactrim. New orders placed.
[2024-02-27] MEDS: levoFLOXacin IV 750 MG/150 ML BAG 100 MG IV (16:07)
[2024-02-27] MEDS: 0.9% Normal Saline (250mL Bag) 250 ML 15 ML IV (16:07)
[2024-02-27 16:12] VITALS: BMI 19.8
[2024-02-27] MEDS: 0.9% Saline Lock 10 ML Syringe IV ×2 (16:19→18:22)
[2024-02-27 22:26] VITALS: BP 121/71; PULSE 75
[2024-02-27] MEDS: Senna/Docusate Sodium 1 Tablet 2 TABLET PO (22:27)
[2024-02-27] MEDS: Atorvastatin Calcium 80 MG Tablet PO (22:27)
[2024-02-27 22:31] VITALS: PULSE 70; RESP 16
[2024-02-28] MEDS: Albuterol IH (6.7 GM) 1 PUFF INHALER 2 PUFF INHALATION (05:40)
[2024-02-28 06:18] LABS: Absolute Lymphocyte Count 0.32 X10^3/uL (0.83-4.51); Absolute Neutrophil Count 5.5 X10^3/uL (2.0-7.7); Basophil# 0.01 X10^3/uL; Basophil% 0.2 % (0-1); Hematocrit 28.5 % (40-54); Hemoglobin 8.6 g/dL (13.0-16.5); Lymphocyte # 0.32 X10^3/ul (0.83-4.51); Lymphocyte % 5.2 % (19-41); Mean Corp Hgb Conc 30.2 g/dL (32-36); Mean Corpuscular Hgb 28.6 pg (27.0-32.0); Mean Corpuscular Volume 94.7 fL (80-94); Mean Platelet Vol. 10.7 fl (6.2-12.0); Monocyte# 0.34 X10^3/uL; Monocyte% 5.5 % (0-10); NRBC Flagged by Analyzer 0 % (0-5); Neutrophil # 5.46 X10^3/uL (2.7-7.7); Neutrophil % 88.5 % (47-70); POSITIVE DIFFERENTIAL YES; Platelet Count 242 K/mm3 (150-450); RBC Distribution Width CV 15.7 % (11.6-14.6); RBC Distribution Width SD 53.8 fl (35.1-43.9); Red Blood Count 3.01 M/mm3 (4.6-6.2); White Blood Count 6.2 K/mm3 (4.4-11.0)
[2024-02-28 06:40] LABS: Anion Gap 3 (5-15); BUN 33 mg/dL (7-18); BUN/Creat Ratio 23.1 RATIO (10-20); Calcium,Total 8.9 mg/dL (8.5-10.1); Chloride 105 mmol/L (98-107); Creatinine, Serum 1.43 mg/dL (0.70-1.30); EST Glomerular Filtration Rate 51 mL/min (>60); Est Glom Filt Rate - Afr Amer 62 mL/min (>60); Estimated Creatinine Clearance 42.09 ml/min; Glucose 144 mg/dL (74-106); Potassium 4.9 mmol/L (3.5-5.1); Sodium Level 135 mmol/L (136-145)
[2024-02-28 09:51] VITALS: BP 104/70; PULSE 88; RESP 19; TEMP 35.8; O2SAT 94
[2024-02-28] MEDS: Ferrous Sulfate 325 MG Tablet PO (09:57)
[2024-02-28] MEDS: Folic Acid 1 MG Tablet PO (09:57)
[2024-02-28] MEDS: APIXABAN 5 MG TABLET PO ×2 (09:58→23:35)
[2024-02-28] MEDS: Menthol/Lanolin/Calamine/Znox 113 GM Tube 1 APPLIC TOPICAL ×2 (09:58→23:34)
[2024-02-28] MEDS: Fluticasone 0.05% 1 SPRAY NASAL.SRY 2 SPRAY NASAL (09:58)
[2024-02-28] MEDS: Fluticasone/Salmeterol 232-14 Inhaler 1 PUFF INHALATION ×2 (09:59→23:35)
[2024-02-28] MEDS: Umeclidinium Bromide Inhaler 1 PUFF INHALATION (09:59)
[2024-02-28 10:00] VITALS: PULSE 88
[2024-02-28] MEDS: Metoprolol Tartrate 25 MG Tablet PO ×2 (10:00→23:35)
[2024-02-28] MEDS: Cholecalciferol (VIT D3) 25 MCG TABLET (1,000 UNITS) 50 MCG PO (10:01)
[2024-02-28] MEDS: Senna/Docusate Sodium 1 Tablet 2 TABLET PO ×2 (10:01→23:36)
[2024-02-28] MEDS: Pantoprazole Sodium 20 MG Tablet PO (10:01)
[2024-02-28 14:04] VITALS: O2SAT 94
[2024-02-28 16:44] VITALS: BMI 19.3
[2024-02-28 16:51] VITALS: BMI 19.3
[2024-02-28] MEDS: 0.9% Saline Lock 10 ML Syringe IV (19:03)
[2024-02-28 23:35] VITALS: BP 111/72; PULSE 73
[2024-02-28] MEDS: Atorvastatin Calcium 80 MG Tablet PO (23:35)
[2024-02-28] MEDS: Ipratropium/Albuterol Sulfate 3 ML AMPUL.NEB INHALATION (23:41)
[2024-02-28 23:44] VITALS: PULSE 75; RESP 18
[2024-02-29] VITALS (7 sets, daily range): BP systolic 94–102; BP diastolic 60–70; PULSE 66–78; RESP 17–20; TEMP 36.1; O2SAT 92–100; BMI 19.3
--- NOTE | 2024-02-29 07:58 | NURSING ---
Addendum entered by Courtney Morrissey 03/01/24 10:38: Discussed with patient that IDT can approve patient to self administer med, per policy, but unable to leave med at bedside, has to be locked in box. Patient had no problems with having med locked up and calling nursing when needing to use. Said he usually uses 2x/day. Albuterol locked in med box. Original Note: Verbal order received and read back that resident may keep Albuterol MDI at bedside.
--- NOTE | 2024-02-29 11:14 | PCM.PN.DRR ---
Documented by User: Kassie Barrera 02/29/24 12:49 TCU RX Drug Regimen Review Subjective/Objective Subjective/Objective: Subjective: TCU Admission. 79 YOM presented to the ER with shortness of breath and chest pain. Hospitalized for acute respiratory failure with hypoxia 2/2 copd exacerbation, serratia pneumonia, complicated by pleural effusion requiring thoracentesis/chest tube. Admitted to TCU with debility for strengthening and rehabilitation. Objective: Allergies clopidogrel (From Plavix) Allergy (Verified 02/27/24 11:50) Hives Penicillins Allergy (Verified 02/27/24 11:50) Hives tamsulosin (From Flomax) Allergy (Verified 02/27/24 11:50) Other BLACKOUT Current Medications Generic Name Dose Route Start Last Admin Trade Name Freq PRN Reason Stop Dose Admin Acetaminophen 1,000 mg 02/25/24 19:49 Acetaminophen 500 Mg Tablet PO Q6H PRN PRN Pain Score 1-5 Albuterol Sulfate 2 puff 02/29/24 07:57 Albuterol Ih (6.7 Gm) 1 Puff Inhaler INHALATION Q6H PRN SHORTNESS OF BREATH/WHEEZING Albuterol/Ipratropium 3 ml 02/25/24 17:32 02/28/24 23:41 Ipratropium/Albuterol Sulfate 3 Ml Ampul.Neb INHALATION 3 ml Q6H PRN Administration shortness of breath or wheezing Apixaban 5 mg 02/25/24 22:00 02/28/24 23:35 Apixaban 5 Mg Tablet PO 5 mg BID ALICIA Administration Atorvastatin Calcium 80 mg 02/25/24 22:00 02/28/24 23:35 Atorvastatin Calcium 80 Mg Tablet PO 80 mg QHS ALICIA Administration Benzonatate 200 mg 02/25/24 17:51 Benzonatate 100 Mg Capsule PO TID PRN PRN cough Bisacodyl 10 mg 02/25/24 17:16 Bisacodyl 10 Mg Suppository RC DAILY PRN PRN Constipation Calamine/Phenol 1 applic 02/26/24 10:00 02/28/24 23:34 Menthol/Lanolin/Calamine/Znox 113 Gm Tube TOPICAL 1 applic BID ALICIA Administration Protocol Cholecalciferol 50 mcg 02/26/24 10:00 02/28/24 10:01 Cholecalciferol (Vit D3) 25 Mcg Tablet (1,000 Units) PO 50 mcg DAILY [facility] Administration Ferrous Sulfate 325 mg 02/26/24 08:00 02/28/24 09:57 Ferrous Sulfate 325 Mg Tablet PO 325 mg DAILYCM ALICIA Administration Fluticasone Propionate 2 spray 02/26/24 10:00 02/28/24 09:58 Fluticasone 0.05% 1 [place] Nasal.Sry NASAL 2 spray DAILY ALICIA Administration Folic Acid 1 mg 02/26/24 08:00 02/28/24 09:57 Folic Acid 1 Mg Tablet PO 1 mg DAILYCM ALICIA Administration Levofloxacin 750 mg in 150 mls @ 100 mls/hr 02/29/24 10:00 Levaquin Iv IV 03/07/24 10:01 Q48 ALICIA Sodium Chloride 250 mls @ 15 mls/hr 02/27/24 15:55 02/27/24 18:24 IV 0 mls/hr .[id number] PRN Infusion Additional IVPB Infusion Magnesium Citrate 300 ml 02/25/24 17:16 Magnesium Citrate 300 Ml PO X1 PRN Constipation Metoprolol Tartrate 25 mg 02/25/24 22:00 02/28/24 23:35 Metoprolol Tartrate 25 Mg Tablet PO 25 mg BID ALICIA Administration Protocol Oxycodone HCl 5 mg 02/25/24 19:49 Oxycodone 5 Mg Tablet PO 03/01/24 19:49 Q4H PRN PRN Pain Score 6-10 or Pre PT/OT Pantoprazole Sodium 20 mg 02/26/24 10:00 02/28/24 10:01 Pantoprazole Sodium 20 Mg Tablet PO 20 mg DAILY ALICIA Administration Fluticasone/Salmeterol 1 puff 02/25/24 22:00 02/28/24 23:35 Fluticasone/Salmeterol 232-14 Inhaler INHALATION 1 puff Q12 ALICIA Administration Senna/Docusate Sodium 2 tablet 02/25/24 22:00 02/28/24 23:36 Senna/Docusate Sodium 1 Tablet PO 2 tablet BID ALICIA Administration Sodium Chloride 10 - 40 ml 02/27/24 15:55 02/28/24 19:03 0.9% Saline Lock 10 Ml Syringe IV 10 ml UD PRN Administration SALINE FLUSH Tuberculin PPD 0.1 ml 03/04/24 10:00 Tuberculin,Purif.Prot.Deriv. 50 Tu/Ml Vial ID 03/04/24 10:01 X1 ONE Umeclidinium [place] 1 puff 02/26/24 10:00 02/28/24 09:59 Umeclidinium [place] Inhaler INHALATION 1 puff DAILY ALICIA Administration Problem List GERD (gastroesophageal reflux disease) (Acute) Iron deficiency anemia (Acute) Vitamin D deficiency (Acute) Pneumonia due to Serratia marcescens (Acute) COPD exacerbation (Chronic) Bilateral pleural effusion (Acute) Acute respiratory failure with hypoxia (Acute) Debility (Acute) Coronary artery disease (Chronic) Essential hypertension (Chronic) AAA (abdominal aortic aneurysm) (Acute) Atrial fibrillation (Acute) Vital Signs Temp Pulse Resp BP Pulse Ox O2 Del Method O2 Flow Rate 96.5 F L 75 18 111/72 92 Nasal Cannula 4 02/28/24 09:51 02/28/24 23:44 02/28/24 23:44 02/28/24 23:35 02/29/24 09:26 02/29/24 07:26 02/29/24 09:26 Oxygen Flow Rate (L/min) 4 Oxygen Delivery Method Nasal Cannula Weight: 68.22 kg Body Mass Index (BMI) 19.3 Sodium 135 mmol/L (136-145) L 02/28/24 05:55 Potassium 4.9 mmol/L (3.5-5.1) 02/28/24 05:55 Chloride 105 mmol/L (98-107) 02/28/24 05:55 Carbon Dioxide 27.0 mmol/L (21.0-32.0) 02/28/24 05:55 Anion Gap 3 (5-15) L 02/28/24 05:55 BUN 33 mg/dL (7-18) H 02/28/24 05:55 Creatinine 1.43 mg/dL (0.70-1.30) H 02/28/24 05:55 Est GFR (MDRD) Af Amer 62 mL/min (>60) 02/28/24 05:55 Est GFR (MDRD) Non-Af 51 mL/min (>60) L 02/28/24 05:55 BUN/Creatinine Ratio 23.1 RATIO (10-20) H 02/28/24 05:55 Glucose 144 mg/dL (74-106) H 02/28/24 05:55 Assessment/Plan: 1. Pain: acetaminophen 1000mg PO Q6H PRN pain 1-5 and oxycodone 5mg PO Q4H PRN pain 6-10. Resident has not had any PRN doses. Please continue to monitor for increased pain and PRN usage. 2. Bowel: senna/docusate 2T PO BID, bisacodyl 10mg RC daily PRN constipation and magnesium citrate 300mL PO x1 PRN constipation. No PRN doses have been given. Last documented bowel movement was 02/27. Please continue to monitor for constipation and PRN usage. 3. Atrial fibrillation/CAD s/p CABGx3: metoprolol tartrate 20mg PO BID and apixaban 5mg PO BID. Please continue to monitor BP (last 111/72), HR (last 75), hemoglobin (last 8.6g/dL) and S/S of bleeding. 4. COPD exacerbation: fluticasone/salmeterol 232/14mcg 1puff inhalation Q12, Incruse ellipta 1puff inhalation daily, albuterol MDI 2puff inhalation Q6H PRN SOB/wheezing and Duoneb 3mL inhalation Q6H PRN SOB/wheezing. Please clarify if Duoneb or Albuterol MDI should be given first or second line for PRN SOB/wheezing. Thanks. Please continue to monitor for SOB, wheezing, PRN doses (5 Duoneb given), HR, thrush. Please rinse mouth with water and spit following fluticasone/salmeterol administration to prevent thrush. Thanks. 5. Pneumonia/cough: levofloxacin 750mg IV Q48 thru 03/07/24 and benzonatate 200mg PO TID PRN cough (no doses given). Previously on Bactrim for serratia pneumonia. Please continue to monitor renal function, tendon pain, O2, PRN usage and diarrhea. 6. Hyperlipidemia: atorvastatin 80mg PO QHS. Please continue to monitor for lipid panel (last 01/09/24), LFTs (last 02/27/24) and muscle pain. 7. Iron deficiency anemia: ferrous sulfate 325mg PO daily. Please continue to monitor hemoglobin, dark stools, constipation and iron studies (last 02/2022). 8. GERD: pantoprazole 20mg PO daily. Please continue to monitor for S/S of GERD and diarrhea (BEERs medication). 9. Allergic rhinitis: fluticasone nasal spray 0.05% 2 sprays nasal daily. Please continue to monitor for S/S of allergies and nasal irritation. 10. Folate and vitamin D deficiencies: folic acid 1mg PO daily and cholecalciferol 50mcg PO daily. Please consider ordering a vitamin D level if clinically appropriate as the last level was from 2020. Thanks. Assessment/Plan for indications treated with psychotropic medications: None Medical chart and medication regimen reviewed. The following medication irregularities or issues were identified: 1. Albuterol MDI 2puff inhalation Q6H PRN SOB/wheezing and Duoneb 3mL inhalation Q6H PRN SOB/wheezing. Please clarify if Duoneb or Albuterol MDI should be given first or second line for PRN SOB/wheezing. Thanks. 2. Cholecalciferol 50mcg PO daily. Please consider ordering a vitamin D level if clinically appropriate as the last level was from 2020. Thanks. Date Date of Note:: 02/29/24 Documented by User: Dr. Dirk Castro MD 02/29/24 12:56 TCU RX Drug Regimen Review Provider Comments Provider responsibility Provider Comments to Recommendations by Pharmacy: Agree
[2024-02-29] MEDS: Ferrous Sulfate 325 MG Tablet PO (11:50)
[2024-02-29] MEDS: APIXABAN 5 MG TABLET PO ×2 (11:51→20:45)
[2024-02-29] MEDS: Fluticasone 0.05% 1 SPRAY NASAL.SRY 2 SPRAY NASAL (11:51)
[2024-02-29] MEDS: Folic Acid 1 MG Tablet PO (11:51)
[2024-02-29] MEDS: Pantoprazole Sodium 20 MG Tablet PO (11:52)
[2024-02-29] MEDS: Fluticasone/Salmeterol 232-14 Inhaler 1 PUFF INHALATION ×2 (11:52→20:45)
[2024-02-29] MEDS: Cholecalciferol (VIT D3) 25 MCG TABLET (1,000 UNITS) 50 MCG PO (11:53)
[2024-02-29] MEDS: Senna/Docusate Sodium 1 Tablet 2 TABLET PO ×2 (11:53→20:46)
[2024-02-29] MEDS: Umeclidinium Bromide Inhaler 1 PUFF INHALATION (11:54)
[2024-02-29] MEDS: Menthol/Lanolin/Calamine/Znox 113 GM Tube 1 APPLIC TOPICAL ×2 (11:54→20:48)
[2024-02-29] MEDS: Metoprolol Tartrate 25 MG Tablet PO (11:58)
[2024-02-29] MEDS: levoFLOXacin IV 750 MG/150 ML BAG 100 MG IV (12:24)
[2024-02-29] MEDS: 0.9% Normal Saline (250mL Bag) 250 ML 15 ML IV (12:30)
[2024-02-29] MEDS: 0.9% Saline Lock 10 ML Syringe IV ×2 (12:30→20:44)
[2024-02-29] MEDS: Atorvastatin Calcium 80 MG Tablet PO (20:46)
[2024-02-29] MEDS: Ipratropium/Albuterol Sulfate 3 ML AMPUL.NEB INHALATION (23:58)
[2024-03-01] VITALS (7 sets, daily range): BP systolic 96–105; BP diastolic 54–64; PULSE 70–80; RESP 18; TEMP 36.2; O2SAT 94–98; BMI 19.5
[2024-03-01] MEDS: Albuterol IH (6.7 GM) 1 PUFF INHALER 2 PUFF INHALATION (02:30)
[2024-03-01] MEDS: Benzonatate 100 MG Capsule 200 MG PO (02:31)
[2024-03-01] MEDS: Metoprolol Tartrate 25 MG Tablet PO (10:09)
[2024-03-01] MEDS: Folic Acid 1 MG Tablet PO (10:09)
[2024-03-01] MEDS: Ferrous Sulfate 325 MG Tablet PO (10:09)
[2024-03-01] MEDS: Pantoprazole Sodium 20 MG Tablet PO (10:09)
[2024-03-01] MEDS: Senna/Docusate Sodium 1 Tablet 2 TABLET PO ×2 (10:09→20:54)
[2024-03-01] MEDS: APIXABAN 5 MG TABLET PO ×2 (10:09→20:55)
[2024-03-01] MEDS: Cholecalciferol (VIT D3) 25 MCG TABLET (1,000 UNITS) 50 MCG PO (10:09)
[2024-03-01] MEDS: Umeclidinium Bromide Inhaler 1 PUFF INHALATION (10:11)
[2024-03-01] MEDS: Fluticasone 0.05% 1 SPRAY NASAL.SRY 2 SPRAY NASAL (10:11)
[2024-03-01] MEDS: Fluticasone/Salmeterol 232-14 Inhaler 1 PUFF INHALATION ×2 (10:11→20:55)
[2024-03-01] MEDS: Menthol/Lanolin/Calamine/Znox 113 GM Tube 1 APPLIC TOPICAL ×2 (10:12→20:57)
--- NOTE | 2024-03-01 13:02 | NURSING ---
Updated patient and grandson Gerardo (via phone) that a staff member tested covid positive.
[2024-03-01] MEDS: 0.9% Saline Lock 10 ML Syringe IV (20:54)
[2024-03-01] MEDS: Atorvastatin Calcium 80 MG Tablet PO (20:55)
[2024-03-01] MEDS: Acetaminophen 500 MG Tablet 1000 MG PO (20:55)
[2024-03-01] MEDS: Ipratropium/Albuterol Sulfate 3 ML AMPUL.NEB INHALATION (23:35)
[2024-03-02 07:00] VITALS: O2SAT 94
[2024-03-02 08:30] VITALS: O2SAT 98
--- NOTE | 2024-03-02 09:06 | CASEMGMT ---
Social Work IDT met with patient, grandson, ex-DIL, ex-, and friend for care plan meeting. Discussed patient's progress in PT/OT/SN. Educated to [facility] insurance with NRD 03/04, EDC 03/07. Provided pt/family written communication on insurance process and copay coverage during stay. IDT recommending family complete therapy training to ensure they can provide the assistance pt needs. However, IDT expressed concern with pt returning home at this time d/t being medically fragile. Pt is currently on increased O2 that what pt was on at home, and IV ATB > 03/07. SW educated that if pt does still want to switch O2 providers from [facility] to [facility], to contact [facility] to roller picker equipment at home, and this worker will place a referral to [facility]. Ex-DIL to drop off the equipment at their local branch. Pt is requesting mini conservating devices at [place]. SW educated to need for meeting qualifications and this worker will make the referral for [facility] to determine. Pt also requesting hospital bed at [place] as well. Therapy educated to cardiac rehab, which [employer] would make referral. Pt/family agreeable to attending [facility]. SW to make referral for skilled HHC at [place]. SW also educated to palliative care services and encouraged to consider to medical oversight at home. Family/pt to consider and notify this worker if they want a referral made. SW to continue to follow for DC planning. KARINA LanderosW
[2024-03-02 10:11] VITALS: BP 93/54; PULSE 64; RESP 18; TEMP 36.7; O2SAT 95
[2024-03-02] MEDS: Ferrous Sulfate 325 MG Tablet PO (10:16)
[2024-03-02] MEDS: Folic Acid 1 MG Tablet PO (10:16)
[2024-03-02] MEDS: Menthol/Lanolin/Calamine/Znox 113 GM Tube 1 APPLIC TOPICAL ×2 (10:17→22:13)
[2024-03-02] MEDS: Fluticasone 0.05% 1 SPRAY NASAL.SRY 2 SPRAY NASAL (10:17)
[2024-03-02] MEDS: APIXABAN 5 MG TABLET PO ×2 (10:17→22:12)
[2024-03-02] MEDS: Cholecalciferol (VIT D3) 25 MCG TABLET (1,000 UNITS) 50 MCG PO (10:18)
[2024-03-02] MEDS: Umeclidinium Bromide Inhaler 1 PUFF INHALATION (10:18)
[2024-03-02] MEDS: Fluticasone/Salmeterol 232-14 Inhaler 1 PUFF INHALATION ×2 (10:18→22:12)
[2024-03-02] MEDS: Pantoprazole Sodium 20 MG Tablet PO (10:18)
[2024-03-02] MEDS: Senna/Docusate Sodium 1 Tablet 2 TABLET PO ×2 (10:19→22:12)
[2024-03-02] MEDS: 0.9% Normal Saline (250mL Bag) 250 ML 15 ML IV (10:29)
[2024-03-02] MEDS: levoFLOXacin IV 750 MG/150 ML BAG 100 MG IV (10:30)
[2024-03-02] MEDS: 0.9% Saline Lock 10 ML Syringe IV ×2 (10:30→22:14)
--- NOTE | 2024-03-02 11:10 | NURSING ---
Updated Dr. Castro that patient has had low BPs with controlled heart rate. Verbal order to DC metoprolol.
--- NOTE | 2024-03-02 11:43 | NURSING ---
Addendum entered by Courtney Morrissey 03/02/24 11:53: Call back from Priya, she said patient has appt scheduled in mid March and doesn't look like they have an earlier appt. She said she talked to Lakshmi Jolly CNP, they will talk to Dr. Walker and see what he wants to do. Original Note: Left VM with pulmonology office to see about scheduling appt. Patient does not want family updated or to have anyone go with him to appt.
--- NOTE | 2024-03-02 13:47 | NURSING ---
Call from Zoe at [facility] per Lakshmi Jolly NP and Dr. Walker recommendations for Dr. Castro to consider are to D/C Eliquis for hemoptysis and to send patient to ED with any worsening condition. [facility] will see patient at his next scheduled appt. on 03/30 @0699.
[2024-03-02] MEDS: Atorvastatin Calcium 80 MG Tablet PO (22:12)
[2024-03-02 23:45] VITALS: PULSE 78; RESP 16
[2024-03-02] MEDS: Ipratropium/Albuterol Sulfate 3 ML AMPUL.NEB INHALATION (23:45)
[2024-03-03] MEDS: APIXABAN 5 MG TABLET PO ×2 (09:56→20:00)
[2024-03-03] MEDS: Fluticasone/Salmeterol 232-14 Inhaler 1 PUFF INHALATION ×2 (09:57→19:55)
[2024-03-03] MEDS: Folic Acid 1 MG Tablet PO (09:57)
[2024-03-03] MEDS: Zinc Sulfate 50 mg zinc (220 mg) ORAL capsule PO (09:57)
[2024-03-03] MEDS: Cyanocobalamin 500 MCG Tablet 1000 MCG PO (09:57)
[2024-03-03] MEDS: Pantoprazole Sodium 20 MG Tablet PO (09:57)
[2024-03-03] MEDS: Senna/Docusate Sodium 1 Tablet 2 TABLET PO ×2 (09:57→20:00)
[2024-03-03] MEDS: Cholecalciferol (VIT D3) 25 MCG TABLET (1,000 UNITS) 50 MCG PO (09:57)
[2024-03-03] MEDS: Ferrous Sulfate 325 MG Tablet PO (09:57)
[2024-03-03] MEDS: Fluticasone 0.05% 1 SPRAY NASAL.SRY 2 SPRAY NASAL (09:58)
[2024-03-03] MEDS: Umeclidinium Bromide Inhaler 1 PUFF INHALATION (09:58)
[2024-03-03] MEDS: Menthol/Lanolin/Calamine/Znox 113 GM Tube 1 APPLIC TOPICAL ×2 (10:05→19:52)
--- NOTE | 2024-03-03 11:30 | CASEMGMT ---
Social Work- SW completed MDS assessment ; BIMS 06/03 and PHQ9 0/2. ANGEL Christianson
[2024-03-03 12:09] LABS: Vitamin D 1,25-Dihydroxy 20.3 pg/mL (24.8-81.5)
[2024-03-03 15:08] VITALS: BP 121/56; PULSE 81; RESP 16; TEMP 36.4; O2SAT 98
[2024-03-03] MEDS: 0.9% Saline Lock 10 ML Syringe IV (19:47)
[2024-03-03] MEDS: Atorvastatin Calcium 80 MG Tablet PO (20:00)
[2024-03-03 22:12] VITALS: PULSE 75; RESP 18
[2024-03-03] MEDS: Ipratropium/Albuterol Sulfate 3 ML AMPUL.NEB INHALATION (22:12)
[2024-03-04 05:51] LABS: Absolute Lymphocyte Count 0.74 X10^3/uL (0.83-4.51); Absolute Neutrophil Count 4.7 X10^3/uL (2.0-7.7); Basophil# 0.04 X10^3/uL; Basophil% 0.6 % (0-1); Eosinophil# 0.19 X10^3/uL; Hemoglobin 8.6 g/dL (13.0-16.5); Lymphocyte # 0.74 X10^3/ul (0.83-4.51); Lymphocyte % 11.5 % (19-41); Mean Corp Hgb Conc 30.7 g/dL (32-36); Mean Corpuscular Volume 94.3 fL (80-94); Mean Platelet Vol. 10.1 fl (6.2-12.0); Monocyte# 0.67 X10^3/uL; Monocyte% 10.5 % (0-10); NRBC Flagged by Analyzer 0 % (0-5); Neutrophil # 4.72 X10^3/uL (2.7-7.7); Neutrophil % 73.6 % (47-70); Platelet Count 225 K/mm3 (150-450); RBC Distribution Width CV 16.5 % (11.6-14.6); RBC Distribution Width SD 55.8 fl (35.1-43.9); Red Blood Count 2.97 M/mm3 (4.6-6.2); White Blood Count 6.4 K/mm3 (4.4-11.0)
[2024-03-04 06:00] VITALS: BMI 19.6
[2024-03-04 06:06] LABS: Anion Gap 3 (5-15); BUN 23 mg/dL (7-18); BUN/Creat Ratio 18.3 RATIO (10-20); Calcium,Total 8.8 mg/dL (8.5-10.1); Chloride 106 mmol/L (98-107); Creatinine, Serum 1.26 mg/dL (0.70-1.30); EST Glomerular Filtration Rate 59 mL/min (>60); Est Glom Filt Rate - Afr Amer 71 mL/min (>60); Estimated Creatinine Clearance 47.12 ml/min; Glucose 103 mg/dL (74-106); Potassium 4.2 mmol/L (3.5-5.1); Sodium Level 138 mmol/L (136-145)
[2024-03-04] MEDS: Umeclidinium Bromide Inhaler 1 PUFF INHALATION (08:17)
[2024-03-04] MEDS: Fluticasone 0.05% 1 SPRAY NASAL.SRY 2 SPRAY NASAL (08:17)
[2024-03-04] MEDS: Fluticasone/Salmeterol 232-14 Inhaler 1 PUFF INHALATION ×2 (08:17→20:25)
[2024-03-04] MEDS: Senna/Docusate Sodium 1 Tablet 2 TABLET PO (08:18)
[2024-03-04] MEDS: Pantoprazole Sodium 20 MG Tablet PO (08:18)
[2024-03-04] MEDS: Cholecalciferol (VIT D3) 25 MCG TABLET (1,000 UNITS) 50 MCG PO (08:18)
[2024-03-04] MEDS: Folic Acid 1 MG Tablet PO (08:18)
[2024-03-04] MEDS: Cyanocobalamin 500 MCG Tablet 1000 MCG PO (08:18)
[2024-03-04] MEDS: Ferrous Sulfate 325 MG Tablet PO (08:18)
[2024-03-04] MEDS: Zinc Sulfate 50 mg zinc (220 mg) ORAL capsule PO (08:18)
[2024-03-04] MEDS: APIXABAN 5 MG TABLET PO ×2 (08:19→20:25)
[2024-03-04] MEDS: Menthol/Lanolin/Calamine/Znox 113 GM Tube 1 APPLIC TOPICAL ×2 (08:22→20:26)
--- NOTE | 2024-03-04 08:31 | NURSING ---
Restaurant Assistant Note; MDS for 03/03/2024 Complete
[2024-03-04] MEDS: 0.9% Normal Saline (250mL Bag) 250 ML 15 ML IV (10:37)
[2024-03-04] MEDS: levoFLOXacin IV 750 MG/150 ML BAG 100 MG IV (10:44)
[2024-03-04] MEDS: 0.9% Saline Lock 10 ML Syringe IV (10:49)
[2024-03-04 15:02] LABS: Absolute Lymphocyte Count 0.84 X10^3/uL (0.83-4.51); Absolute Neutrophil Count 4.5 X10^3/uL (2.0-7.7); Basophil# 0.04 X10^3/uL; Basophil% 0.6 % (0-1); Eosinophil# 0.19 X10^3/uL; Erythrocyte Sedimentation Rate 3 mm/hr (0-20); Hemoglobin 8.7 g/dL (13.0-16.5); Lymphocyte # 0.84 X10^3/ul (0.83-4.51); Lymphocyte % 13.3 % (19-41); Mean Corpuscular Hgb 28.7 pg (27.0-32.0); Mean Corpuscular Volume 95.7 fL (80-94); Monocyte# 0.63 X10^3/uL; NRBC Flagged by Analyzer 0 % (0-5); Neutrophil # 4.54 X10^3/uL (2.7-7.7); Platelet Count 217 K/mm3 (150-450); RBC Distribution Width CV 16.7 % (11.6-14.6); RBC Distribution Width SD 57.2 fl (35.1-43.9); Red Blood Count 3.03 M/mm3 (4.6-6.2); White Blood Count 6.3 K/mm3 (4.4-11.0)
[2024-03-04 15:22] LABS: ALB/GLOB Ratio 0.9 RATIO (0.9-2.4); AST(SGOT) 20 U/L (15-37); Alanine Aminotransfer ALT/SGPT 31 U/L (16-61); Albumin, Serum 2.7 g/dL (3.2-5.0); Alkaline Phosphatase 90 U/L (45-117); Anion Gap 5 (5-15); BUN 23 mg/dL (7-18); BUN/Creat Ratio 18.3 RATIO (10-20); CRP 6.99 mg/L (0.0-3.0); Calcium,Total 8.6 mg/dL (8.5-10.1); Chloride 104 mmol/L (98-107); Creatinine, Serum 1.26 mg/dL (0.70-1.30); EST Glomerular Filtration Rate 59 mL/min (>60); Est Glom Filt Rate - Afr Amer 71 mL/min (>60); Estimated Creatinine Clearance 47.52 ml/min; Globulin 3.1 g/dL (2.2-4.2); Glucose 99 mg/dL (74-106); Potassium 4.4 mmol/L (3.5-5.1); Protein, Total 5.8 g/dL (6.4-8.2); Rheumatoid Factor < 10.0 IU/mL (<15); Sodium Level 137 mmol/L (136-145)
[2024-03-04] MEDS: Tuberculin,Purif.prot.deriv. 50 TU/ML Vial 0.1 ML ID (16:15)
--- NOTE | 2024-03-04 16:36 | NURSING ---
pt coughing up large amount of bloody sputum through out shift, Lung sounds are diminished maintaining at 92% oxygen on 4L AAT, this nurse has helped encourage pt to continue using IS and aerosol treatments.
[2024-03-04 16:46] VITALS: BP 113/69; PULSE 75; RESP 18; TEMP 36.6; O2SAT 100
[2024-03-04] MEDS: Albuterol IH (6.7 GM) 1 PUFF INHALER 2 PUFF INHALATION (18:47)
[2024-03-04] MEDS: Atorvastatin Calcium 80 MG Tablet PO (20:26)
[2024-03-05 00:13] VITALS: PULSE 83; RESP 22; O2SAT 96
[2024-03-05] MEDS: Ipratropium/Albuterol Sulfate 3 ML AMPUL.NEB INHALATION (00:13)
--- NOTE | 2024-03-05 06:43 | NURSING ---
Pt continues to have a strong, moist cough this shift, producing a moderate amount of blood-streaked sputum. Pt encouraged to use IS. Lung sounds diminished throughout. SpO2 of 93%; remains on 4L of oxygen via nasal cannula. Pt requested nebulizer treatment once during shift.
[2024-03-05 08:50] VITALS: BP 95/53; PULSE 75; RESP 18; TEMP 36.5; O2SAT 100
[2024-03-05 08:53] VITALS: BP 97/59
[2024-03-05] MEDS: Pantoprazole Sodium 20 MG Tablet PO (08:56)
[2024-03-05] MEDS: Folic Acid 1 MG Tablet PO (08:56)
[2024-03-05] MEDS: Senna/Docusate Sodium 1 Tablet 2 TABLET PO (08:56)
[2024-03-05] MEDS: Ferrous Sulfate 325 MG Tablet PO (08:56)
[2024-03-05] MEDS: Cyanocobalamin 500 MCG Tablet 1000 MCG PO (08:56)
[2024-03-05] MEDS: Zinc Sulfate 50 mg zinc (220 mg) ORAL capsule PO (08:56)
[2024-03-05] MEDS: Cholecalciferol (VIT D3) 25 MCG TABLET (1,000 UNITS) 50 MCG PO (08:56)
[2024-03-05] MEDS: Menthol/Lanolin/Calamine/Znox 113 GM Tube 1 APPLIC TOPICAL ×2 (08:57→21:58)
[2024-03-05] MEDS: Fluticasone 0.05% 1 SPRAY NASAL.SRY 2 SPRAY NASAL (08:57)
[2024-03-05] MEDS: Fluticasone/Salmeterol 232-14 Inhaler 1 PUFF INHALATION ×2 (08:57→21:55)
[2024-03-05] MEDS: Umeclidinium Bromide Inhaler 1 PUFF INHALATION (08:57)
[2024-03-05] MEDS: APIXABAN 5 MG TABLET PO ×2 (08:57→21:55)
[2024-03-05] MEDS: 0.9% Saline Lock 10 ML Syringe IV ×2 (08:58→21:56)
[2024-03-05 09:10] VITALS: BMI 20.1
[2024-03-05 11:30] VITALS: PULSE 82; RESP 18; O2SAT 95
--- NOTE | 2024-03-05 11:42 | NURSING ---
pt resting in bed on rt side, LT lung diminished to auscultation, rt lung clear, sat 95% on 3 liters oxygen. pt coughing up thick rust colored sputum. order to schedule appt with pulmonary for hemoptyses. Alert & oriented. BURGOS, sat dropped 88% when ambulating with therapy but recovered quickly to the 90's per physical therapist on 3 liters. denies needs at this time. call light in reach. no respiratory distress noted with resting in bed at this time. humidification placed on oxygen, old bottle emptied
[2024-03-05] MEDS: Albuterol IH (6.7 GM) 1 PUFF INHALER 2 PUFF INHALATION (16:02)
--- NOTE | 2024-03-05 16:04 | NURSING ---
Addendum entered by Acacia Fabian 03/05/24 18:15: pt denies SOB, inhaler effective. pt heard coughing, noted thick blood tinged mucus in kleenex. Original Note: albuteral inhaler administered per order, for SOB/wheezing. pt continues to cough up bloody sputum, states almost everytime. oxygen at 3 liters NC humidified, sat 83%, turned up to 4 liters sat 96%.
[2024-03-05 16:08] VITALS: BP 114/70; PULSE 83; O2SAT 96
[2024-03-05] MEDS: Atorvastatin Calcium 80 MG Tablet PO (21:54)
--- NOTE | 2024-03-06 04:10 | NURSING ---
Patient continuing to cough up a moderate amount of bloody sputum throughout the shift. Patient states he coughs up a lot of blood several times throughout the day and is worse at night. [facility] Inhalers administered this shift, PRN albuterol at patient's bedside. Patient currently on 4L O2 via NC, SpO2 at 95%.
[2024-03-06 05:37] VITALS: BMI 19.8
[2024-03-06 06:11] VITALS: PULSE 84; RESP 19; O2SAT 95
[2024-03-06] MEDS: Albuterol IH (6.7 GM) 1 PUFF INHALER 2 PUFF INHALATION (06:30)
[2024-03-06 07:53] VITALS: BP 110/69; PULSE 86; RESP 18; TEMP 36.1; O2SAT 98
[2024-03-06] MEDS: Ferrous Sulfate 325 MG Tablet PO (07:57)
[2024-03-06] MEDS: Fluticasone 0.05% 1 SPRAY NASAL.SRY 2 SPRAY NASAL (07:57)
[2024-03-06] MEDS: Cholecalciferol (VIT D3) 25 MCG TABLET (1,000 UNITS) 50 MCG PO (07:57)
[2024-03-06] MEDS: Umeclidinium Bromide Inhaler 1 PUFF INHALATION (07:57)
[2024-03-06] MEDS: Folic Acid 1 MG Tablet PO (07:57)
[2024-03-06] MEDS: Zinc Sulfate 50 mg zinc (220 mg) ORAL capsule PO (07:57)
[2024-03-06] MEDS: Fluticasone/Salmeterol 232-14 Inhaler 1 PUFF INHALATION ×2 (07:57→20:12)
[2024-03-06] MEDS: Pantoprazole Sodium 20 MG Tablet PO (07:57)
[2024-03-06] MEDS: Cyanocobalamin 500 MCG Tablet 1000 MCG PO (07:57)
[2024-03-06] MEDS: APIXABAN 5 MG TABLET PO ×2 (07:57→20:12)
[2024-03-06] MEDS: 0.9% Saline Lock 10 ML Syringe IV (07:58)
[2024-03-06] MEDS: Menthol/Lanolin/Calamine/Znox 113 GM Tube 1 APPLIC TOPICAL ×2 (07:58→20:12)
[2024-03-06 08:00] VITALS: O2SAT 87; O2SAT 90; O2SAT 99
[2024-03-06] MEDS: levoFLOXacin IV 750 MG/150 ML BAG 100 MG IV (08:02)
--- NOTE | 2024-03-06 17:45 | NURSING ---
pt continues with hemoptysis, pink tinged early AM but then turns darker during day. offered PRN aerosal tx's or inhaler today but pt declined, stated doing fine. PRN albuterol at bedside, only used early AM, none since per pt.
--- NOTE | 2024-03-06 17:49 | NURSING ---
pt began coughing this evening, sputum was pink tinged, not quite as bloody as during mid day.
[2024-03-06] MEDS: Atorvastatin Calcium 80 MG Tablet PO (20:12)
[2024-03-06 23:10] VITALS: PULSE 80; RESP 16; O2SAT 95
[2024-03-06] MEDS: Ipratropium/Albuterol Sulfate 3 ML AMPUL.NEB INHALATION (23:10)
[2024-03-07 05:26] VITALS: BMI 19.8
--- NOTE | 2024-03-07 06:02 | NURSING ---
Patient continues to have hemoptysis. Sputum moderate amount, thick, and pink-tinged. ALICIA inhalers and PRN duoneb treatment administered this shift, was effective.
[2024-03-07 07:53] VITALS: O2SAT 96
[2024-03-07 08:34] VITALS: O2SAT 98
--- NOTE | 2024-03-07 09:10 | CASEMGMT ---
Social Work LACEY received call from Rafal frantically stating nursing staff told pt he was discharging home today, and expressed concern as pt had no DME arranged. LACEY apologized for miscommunication, but there is no DC date set. LACEY educated that insurance update was 03/04 and stated pt was not medically stable d/t blood in sputum, and insurance approved continued stay with NRD 03/09. LACEY educated to 3 day notice for DC, which would be earliest DC of 03/12. LACEY assured Rafal that this worker will have all needs coordinated once DC date is set and this worker will thoroughly communicate DC date and needs. Rafal appreciative of this workers explanation, but frustrated with whomever provided that information to pt. Rafal stated she will update pt on correction. LACEY again apologized for miscommunication and assured her this worker will be in contact with pt/family once DC date is known. LACEY educated all staff to miscommunication of DC date. Salina Navas, ANALYSIS INTERN PACK PRESS OPERATOR
[2024-03-07] MEDS: Folic Acid 1 MG Tablet PO (09:44)
[2024-03-07] MEDS: APIXABAN 5 MG TABLET PO ×2 (09:44→20:51)
[2024-03-07] MEDS: Pantoprazole Sodium 20 MG Tablet PO (09:44)
[2024-03-07] MEDS: Cyanocobalamin 500 MCG Tablet 1000 MCG PO (09:44)
[2024-03-07] MEDS: Zinc Sulfate 50 mg zinc (220 mg) ORAL capsule PO (09:44)
[2024-03-07] MEDS: Cholecalciferol (VIT D3) 25 MCG TABLET (1,000 UNITS) 50 MCG PO (09:44)
[2024-03-07] MEDS: Ferrous Sulfate 325 MG Tablet PO (09:44)
[2024-03-07] MEDS: Umeclidinium Bromide Inhaler 1 PUFF INHALATION (09:45)
[2024-03-07] MEDS: Menthol/Lanolin/Calamine/Znox 113 GM Tube 1 APPLIC TOPICAL ×2 (09:45→20:53)
[2024-03-07] MEDS: Fluticasone 0.05% 1 SPRAY NASAL.SRY 2 SPRAY NASAL (09:45)
[2024-03-07] MEDS: Fluticasone/Salmeterol 232-14 Inhaler 1 PUFF INHALATION ×2 (09:45→20:51)
[2024-03-07 11:49] VITALS: BP 129/77; PULSE 91; RESP 17; TEMP 36.4; O2SAT 93
[2024-03-07 17:07] LABS: ANTINUCLEAR ANTIBODIES DIRECT Negative (Negative)
[2024-03-07 20:45] VITALS: PULSE 74; O2SAT 94
[2024-03-07] MEDS: Atorvastatin Calcium 80 MG Tablet PO (20:51)
[2024-03-07] MEDS: Senna/Docusate Sodium 1 Tablet 2 TABLET PO (20:51)
[2024-03-08 07:20] VITALS: O2SAT 93
--- NOTE | 2024-03-08 09:49 | MDS.RN ---
Information for the MDS was obtained from review of the clinical record, interview of resident, staff, and direct observation of resident?s care.
[2024-03-08 10:00] VITALS: BP 103/68; PULSE 79; RESP 18; TEMP 36.5; O2SAT 95
[2024-03-08] MEDS: Fluticasone 0.05% 1 SPRAY NASAL.SRY 2 SPRAY NASAL (10:03)
[2024-03-08] MEDS: Menthol/Lanolin/Calamine/Znox 113 GM Tube 1 APPLIC TOPICAL ×2 (10:03→20:35)
[2024-03-08] MEDS: Cholecalciferol (VIT D3) 25 MCG TABLET (1,000 UNITS) 50 MCG PO (10:05)
[2024-03-08] MEDS: Fluticasone/Salmeterol 232-14 Inhaler 1 PUFF INHALATION ×2 (10:05→20:36)
[2024-03-08] MEDS: Umeclidinium Bromide Inhaler 1 PUFF INHALATION (10:05)
[2024-03-08] MEDS: Cyanocobalamin 500 MCG Tablet 1000 MCG PO (10:06)
[2024-03-08] MEDS: Ferrous Sulfate 325 MG Tablet PO (10:06)
[2024-03-08] MEDS: APIXABAN 5 MG TABLET PO ×2 (10:06→20:36)
[2024-03-08] MEDS: Zinc Sulfate 50 mg zinc (220 mg) ORAL capsule PO (10:06)
[2024-03-08] MEDS: Folic Acid 1 MG Tablet PO (10:06)
[2024-03-08] MEDS: Pantoprazole Sodium 20 MG Tablet PO (10:06)
[2024-03-08] MEDS: Senna/Docusate Sodium 1 Tablet 2 TABLET PO (20:37)
[2024-03-08] MEDS: Atorvastatin Calcium 80 MG Tablet PO (20:37)
[2024-03-09 07:29] VITALS: O2SAT 93
[2024-03-09 08:19] VITALS: BP 102/60; PULSE 76; RESP 18; TEMP 36.4; O2SAT 100
[2024-03-09] MEDS: Cholecalciferol (VIT D3) 25 MCG TABLET (1,000 UNITS) 50 MCG PO (08:23)
[2024-03-09] MEDS: APIXABAN 5 MG TABLET PO ×2 (08:24→20:52)
[2024-03-09] MEDS: Zinc Sulfate 50 mg zinc (220 mg) ORAL capsule PO (08:24)
[2024-03-09] MEDS: Senna/Docusate Sodium 1 Tablet 2 TABLET PO ×2 (08:24→20:53)
[2024-03-09] MEDS: Cyanocobalamin 500 MCG Tablet 1000 MCG PO (08:24)
[2024-03-09] MEDS: Umeclidinium Bromide Inhaler 1 PUFF INHALATION (08:24)
[2024-03-09] MEDS: Folic Acid 1 MG Tablet PO (08:24)
[2024-03-09] MEDS: Pantoprazole Sodium 20 MG Tablet PO (08:24)
[2024-03-09] MEDS: Ferrous Sulfate 325 MG Tablet PO (08:24)
[2024-03-09] MEDS: Fluticasone/Salmeterol 232-14 Inhaler 1 PUFF INHALATION ×2 (08:24→20:53)
[2024-03-09] MEDS: Fluticasone 0.05% 1 SPRAY NASAL.SRY 2 SPRAY NASAL (08:25)
[2024-03-09] MEDS: Menthol/Lanolin/Calamine/Znox 113 GM Tube 1 APPLIC TOPICAL (08:25)
--- NOTE | 2024-03-09 10:17 | NURSING ---
Updated by DIRECTOR INPATIENT HEADACHE PROGRAM that while shaving patient with the electric razor it nicked him twice, had a small amount of bleeding. RN checked on pt, no active bleeding, very small spot of dried blood. Patient reports that he's fine, says that happens every time I shave.
--- NOTE | 2024-03-09 11:55 | CASEMGMT ---
Social Work LACEY spoke with the insurance reviewer whom was inquiring about pt's updated status. Given the updates from the medical record, Dr is waiting for pt's lab results to determine tx plan and appropriateness for DC, insurance approved continued stay until 03/11; if lab results are not received yet, NRD moved to 03/14. Pt is unable to see Pulmonology until 03/30. LACEY phoned ex-DIL to update on above, whom was appreciative. Salina Navas, LOAN SPECIALIST TOBACCO CLOTH RECLAIMER
--- NOTE | 2024-03-09 18:47 | NURSING ---
no changes, pt continues with sputum production but feels like its better today. pink tinged tonight, but in AM bloody sputum. sat 97% on 4 liters tonight
[2024-03-09 18:55] VITALS: PULSE 82; O2SAT 97
[2024-03-09 20:45] VITALS: PULSE 56; RESP 16
[2024-03-09] MEDS: Atorvastatin Calcium 80 MG Tablet PO (20:53)
[2024-03-10 03:47] VITALS: BMI 19.7
[2024-03-10 08:45] VITALS: BP 115/61; PULSE 88; RESP 18; TEMP 36.6; O2SAT 99
[2024-03-10] MEDS: Ferrous Sulfate 325 MG Tablet PO (08:48)
[2024-03-10] MEDS: Pantoprazole Sodium 20 MG Tablet PO (08:48)
[2024-03-10] MEDS: Folic Acid 1 MG Tablet PO (08:48)
[2024-03-10] MEDS: Cyanocobalamin 500 MCG Tablet 1000 MCG PO (08:48)
[2024-03-10] MEDS: APIXABAN 5 MG TABLET PO ×2 (08:49→21:03)
[2024-03-10] MEDS: Zinc Sulfate 50 mg zinc (220 mg) ORAL capsule PO (08:49)
[2024-03-10] MEDS: Senna/Docusate Sodium 1 Tablet 2 TABLET PO ×2 (08:49→21:03)
[2024-03-10] MEDS: Cholecalciferol (VIT D3) 25 MCG TABLET (1,000 UNITS) 50 MCG PO (08:49)
[2024-03-10] MEDS: Umeclidinium Bromide Inhaler 1 PUFF INHALATION (08:50)
[2024-03-10] MEDS: Menthol/Lanolin/Calamine/Znox 113 GM Tube 1 APPLIC TOPICAL ×2 (08:50→21:05)
[2024-03-10] MEDS: Fluticasone/Salmeterol 232-14 Inhaler 1 PUFF INHALATION ×2 (08:50→21:03)
[2024-03-10] MEDS: Fluticasone 0.05% 1 SPRAY NASAL.SRY 2 SPRAY NASAL (08:50)
--- NOTE | 2024-03-10 11:42 | NURSING ---
Updated that a patient and a staff member tested positive for covid. Attempted to reach grandson via phone, went to work VM.
[2024-03-10 12:04] VITALS: PULSE 72; RESP 18; O2SAT 99
[2024-03-10] MEDS: Atorvastatin Calcium 80 MG Tablet PO (21:03)
[2024-03-11 06:07] LABS: Absolute Lymphocyte Count 0.74 X10^3/uL (0.83-4.51); Absolute Neutrophil Count 4.7 X10^3/uL (2.0-7.7); Basophil# 0.05 X10^3/uL; Basophil% 0.8 % (0-1); Eosinophil# 0.14 X10^3/uL; Eosinophils% 2.3 % (0-5); Hematocrit 26.9 % (40-54); Hemoglobin 8.1 g/dL (13.0-16.5); Lymphocyte # 0.74 X10^3/ul (0.83-4.51); Lymphocyte % 11.9 % (19-41); Mean Corp Hgb Conc 30.1 g/dL (32-36); Mean Corpuscular Hgb 28.6 pg (27.0-32.0); Mean Corpuscular Volume 95.1 fL (80-94); Mean Platelet Vol. 10.4 fl (6.2-12.0); Monocyte# 0.57 X10^3/uL; Monocyte% 9.2 % (0-10); NRBC Flagged by Analyzer 0 % (0-5); Neutrophil # 4.71 X10^3/uL (2.7-7.7); Neutrophil % 75.6 % (47-70); Platelet Count 143 K/mm3 (150-450); RBC Distribution Width CV 16.2 % (11.6-14.6); RBC Distribution Width SD 56.2 fl (35.1-43.9); Red Blood Count 2.83 M/mm3 (4.6-6.2); White Blood Count 6.2 K/mm3 (4.4-11.0)
[2024-03-11 06:10] VITALS: BMI 19.6
[2024-03-11 06:42] LABS: Anion Gap 2 (5-15); BUN 16 mg/dL (7-18); BUN/Creat Ratio 14.7 RATIO (10-20); Calcium,Total 8.8 mg/dL (8.5-10.1); Chloride 105 mmol/L (98-107); Creatinine, Serum 1.09 mg/dL (0.70-1.30); EST Glomerular Filtration Rate 70 mL/min (>60); Est Glom Filt Rate - Afr Amer 84 mL/min (>60); Estimated Creatinine Clearance 54.91 ml/min; Glucose 89 mg/dL (74-106); Potassium 3.9 mmol/L (3.5-5.1); Sodium Level 140 mmol/L (136-145)
[2024-03-11] MEDS: Ferrous Sulfate 325 MG Tablet PO (08:24)
[2024-03-11] MEDS: APIXABAN 5 MG TABLET PO ×2 (08:25→20:55)
[2024-03-11] MEDS: Folic Acid 1 MG Tablet PO (08:25)
[2024-03-11] MEDS: Fluticasone 0.05% 1 SPRAY NASAL.SRY 2 SPRAY NASAL (08:25)
[2024-03-11] MEDS: Cyanocobalamin 500 MCG Tablet 1000 MCG PO (08:25)
[2024-03-11] MEDS: Umeclidinium Bromide Inhaler 1 PUFF INHALATION (08:26)
[2024-03-11] MEDS: Fluticasone/Salmeterol 232-14 Inhaler 1 PUFF INHALATION ×2 (08:26→20:53)
[2024-03-11] MEDS: Pantoprazole Sodium 20 MG Tablet PO (08:27)
[2024-03-11] MEDS: Cholecalciferol (VIT D3) 25 MCG TABLET (1,000 UNITS) 50 MCG PO (08:27)
[2024-03-11] MEDS: Zinc Sulfate 50 mg zinc (220 mg) ORAL capsule PO (08:27)
[2024-03-11] MEDS: Senna/Docusate Sodium 1 Tablet 2 TABLET PO ×2 (08:27→20:56)
[2024-03-11] MEDS: Menthol/Lanolin/Calamine/Znox 113 GM Tube 1 APPLIC TOPICAL ×2 (08:33→20:54)
[2024-03-11 09:30] VITALS: O2SAT 93
--- NOTE | 2024-03-11 13:51 | CASEMGMT ---
Addendum entered by Salina Navas 03/16/24 14:25: [facility] can accept and will contact pt for SOC. Dayami called and updated. Addendum entered by Salina Navas 03/16/24 14:01: Dayami returned called and requesting [facility]. [facility] does not service pt's home address. Dayami has no other preference. SW referred to [facility] via [employer]. Addendum entered by Salina Navas 03/16/24 12:45: [facility] cannot accept pt. SW phoned dayami and left VM to choose another agency. Addendum entered by Salina Navas 03/11/24 14:52: [facility] updated this worker the previous C agency was [facility]. SW sent referral via [employer]. Original Note: Social Work Insurance issued LCD 03/13, DC 03/14. SW spoke with pt, explained appeal rights. Pt is agreeable. SW will refer to [facility] for O2. Recommending C PT/OT/SN. Offered list of [facility] providers with quality and resource data via [employer] Guide, but pt denied stating he was using an agency prior, and ex-DIL will know the agency name. Pt stated he does not need the hospital bed anymore, as family already secured a bed. SW left VM with ex-DIL. SW received phone call from [employer] to review DC plans. SW educated to O2 portable tank from [facility] will be delivered to the pt's room prior to DC, and once testing and script has been processed the morning of DC. Then once pt arrives home, pt is to call [facility] for delivery of the concentrator. [facility] inquired about HHC and hospital bed. SW explained above. [facility]son to confirm with pt's ex-DIL and will notify this worker. SW updated [employer] via [employer] on DC date. Plan: DC home with family 03/14, HHC PT/OT/SN, oxygen KARINA LanderosW
--- NOTE | 2024-03-11 14:11 | PCM.DC.SUM ---
Providers Date of Admission: 02/25/24 Primary Care Physician: Dr. Brittany Persaud MD Reason For Visit: PLUERAL INFUSIONS Diagnosis Discharge Diagnosis (1) Debility: Status: Acute Code(s): R53.81 - Other malaise (2) Acute respiratory failure with hypoxia: Status: Acute Code(s): J96.01 - Acute respiratory failure with hypoxia (3) Bilateral pleural effusion: Status: Acute Code(s): J90 - Pleural effusion, not elsewhere classified (4) COPD exacerbation: Status: Chronic Code(s): J44.1 - Chronic obstructive pulmonary disease with (acute) exacerbation (5) Pneumonia due to Serratia marcescens: Status: Acute Code(s): J15.69 - Pneumonia due to other Gram-negative bacteria (6) Atrial fibrillation: Status: Acute Code(s): I48.91 - Unspecified atrial fibrillation (7) Essential hypertension: Status: Chronic Code(s): I10 - Essential (primary) hypertension (8) AAA (abdominal aortic aneurysm): Status: Acute Code(s): I71.4 - Abdominal aortic aneurysm, without rupture (9) Coronary artery disease: Status: Chronic Code(s): I25.10 - Atherosclerotic heart disease of [place] coronary artery without angina pectoris (10) Vitamin D deficiency: Status: Acute Code(s): E55.9 - Vitamin D deficiency, unspecified (11) Iron deficiency anemia: Status: Acute Code(s): D50.9 - Iron deficiency anemia, unspecified (12) GERD (gastroesophageal reflux disease): Status: Acute Code(s): K21.9 - Gastro-esophageal reflux disease without esophagitis Plan 79 year old male with below past medical history significant for recent cabg x 3, hospitalized for acute respiratory failure with hypoxia 2/2 copd exacerbation, serratia pneumonia, complicated by pleural effusion requiring thoracentesis/chest tube, admitted to TCU with debility, here for rehabilitation, strengthening, prior to discharge home with ex daughter in law. Debility - PT/OT. Pain - Tylenol 1000mg q6 prn pain (1-5), Oxycodone 5mg q4 prn pain (6-10). Bowel - senna/colace 2 tablets bid, Dulcolax 10mg pr daily prn, Magnesium citrate 300ml po x 1 prn. Adult immunization - Administer pneumonia vaccine, covid vaccine, flu vaccine as appropriate. DVT prophylaxis - on Eliquis. COPD exacerbation - Fluticasone/Salmeterol 1 puff q12, Incruse 1 puff daily, Albuterol 2 puffs q6 prn, Duoneb 3ml q6 prn, prednisone taper. Atrial fibrillation - Metoprolol 25mg bid, Eliquis 5mg bid. Hyperlipidemia - Atorvastatin 80mg qhs. Cough - Tessalon perles 200mg tid prn. Vitamin D deficiency - D3 50mcg daily. Iron deficiency anemia - Ferrous sulfate 325mg daily. Allergic rhinitis - Fluticasone 2 spays nasal daily. Folate deficiency - Folic acid 1mg daily. Coronary artery disease s/p cabg x 3 - Metoprolol 25mg bid, Eliquis 5mg bid. GERD - Pantoprazole 20mg daily. Serratia pneumonia - Bactrim DS 1 tablet bid thru 03/06/2024. Medications at Discharge Home Medications folic acid 1 mg tablet 1 mg PO DAILY Supplement 02/17/21 cholecalciferol (vitamin D3) 50 mcg (2,000 unit) capsule 50 mcg PO DAILY SUPPLEMENT 01/08/22 ferrous sulfate 325 mg (65 mg iron) tablet (Feosol) 325 mg PO DAILY supplement 01/08/22 albuterol sulfate 2.5 mg/3 mL (0.083 %) solution for nebulization 2.5 mg (3 mL) inhalation Q6H PRN Wheezing #180 mL 09/10/23 fluticasone propionate 50 mcg/actuation nasal spray,suspension (Flonase Allergy Relief) 2 spray intranasal DAILY congestion #3 ea 09/10/23 tiotropium bromide 2.5 mcg/actuation mist for inhalation (Spiriva Respimat) 2 puff inhalation DAILY breathing #3 ea 09/10/23 ipratropium 0.5 mg-albuterol 3 mg (2.5 mg base)/3 mL nebulization soln 3 ml inhalation Q6H PRN shortness of breath or wheezing 11/26/23 nitroglycerin 0.4 mg sublingual tablet (Nitrostat) 0.4 mg sublingual Q5-15M PRN Chest Pain #23 tabs 11/26/23 apixaban 5 mg tablet (Eliquis) 5 mg PO BID Blood thinner #60 tabs 01/12/24 albuterol sulfate 90 mcg/actuation aerosol inhaler 2 puff inhalation Q6H PRN Breathing 02/25/24 atorvastatin 80 mg tablet 80 mg PO QHS cholesterol 02/25/24 budesonide-formoterol HFA 160 mcg-4.5 mcg/actuation aerosol inhaler (Symbicort) 2 puff inhalation Q12H Breathing 02/25/24 pantoprazole 20 mg tablet,delayed release 20 mg PO DAILY 30 days #30 tabs 03/11/24 Hospital Course Operations None Procedures None Summary of Care Provided Minutes Spent on Discharge: 35 Hospital Course: 79 year old male with below past medical history significant for recent cabg x 3, hospitalized for acute respiratory failure with hypoxia 2/2 copd exacerbation, serratia pneumonia, complicated by pleural effusion requiring thoracentesis/chest tube, admitted to TCU with debility, here for rehabilitation, strengthening, prior to discharge home with ex daughter in law. I spoke with resident today. He continues to cough up blood. At times the sputum is blood tinged, and at times it is jameson blood. He started coughing up blood on 02/15/2024, so he has been coughing up blood for 19 days. On 02/15/2024, resident was admitted to [email or web address] with acute respiratory failure, he was treated for copd exacerbation, serratia pneumonia, but focus was not on the hemoptysis. On 02/27/2024, resident was evaluated at [facility] Emergency Department. CT chest showed following: IMPRESSION: Mild bilateral pleural effusions with multifocal consolidation most confluent in the lung bases, concerning for pneumonia. Moderate emphysema. Stable 5 mm right upper lobe pulmonary nodule. Presence of pulmonary emphysema on CT is an independent risk factor for lung cancer. Consider LDCT lung cancer screening in the future. I broadened his antibiotic from bactrim to Levaquin iv x 7 days for treatment of pneumonia. Throughout his course, the hemoptysis persists, he continues to require oxygen 4 liters per nasal cannula, his baseline oxygen requirement is 3 liters per nasal cannula. I am concerned with pulmonary vasculitis, and I have ordered a panel of bloodwork to evaluate for this. An appointment was made with pulmonary but I am not sure when that will be. With pulmonary vasculitis, it is possible for resident to decompensate very quickly if he was discharged home, requiring return for hospitalization. Hopefully, his bloodwork will return in a few days to rule out vasculitis, and certainly if his hemoptysis resolves, he would be more stable for successful discharge home. Discharge home with ex daughter in law 03/30/2024, [facility] PT/OT/SN, oxygen. Oxygen documentation: Patient requires 4 LPM of oxygen via cannula due to diagnosis emphysema, hemoptysis; requires a concentrator and portable O2 tanks to allow patient to be mobile in the home and the community; O2 will improve the patient's condition in the home setting. Patient has appointment with [facility] 03/30/2024. Physical Exam Const alert General Appearance: cooperative HEENT normocephalic Eyes PERRL and EOMs intact bilaterally Neck supple, no JVD and no carotid bruits Chest Chest Narrative: Midline incision healed. Resp normal respiratory effort, normal air movement and clear to auscultation bilaterally Cardio regular rate and regular rhythm GI normal to inspection, nondistended, normoactive bowel sounds, non-tender and non-distended Extremity normal capillary refill General Extremity: Negative for edema Skin no rashes or lesions noted General Skin Exam: no breakdown Psych affect normal Appearance: appropriate Weight / BMI Weight Weight: 69.5 kg Body Mass Index (BMI) 19.6 ABG / Lab / Microbiology Data 03/11/24 05:27 03/11/24 05:27 Laboratory: Laboratory Results - last 24 hr 03/11/24 05:27: WBC 6.2, RBC 2.83 L, Hgb 8.1 L, Hct 26.9 L, MCV 95.1 H, MCH 28.6, MCHC 30.1 L, RDW Std Deviation 56.2 H, RDW Coeff of Jimbo 16.2 H, Plt Count 143 L, MPV 10.4, Immature Gran % (Auto) 0.200, Neut % (Auto) 75.6 H, Lymph % (Auto) 11.9 L, [place] % (Auto) 9.2, Eos % (Auto) 2.3, Baso % (Auto) 0.8, Absolute Neuts (auto) 4.7, Absolute Lymphs (auto) 0.74 L, Nucleated RBC % 0, Sodium 140, Potassium 3.9, Chloride 105, Carbon Dioxide 33.0 H, Anion Gap 2 L, BUN 16, Creatinine 1.09, Estim Creat Clear Calc 54.91, Est GFR (MDRD) Af Amer 84, Est GFR (MDRD) Non-Af 70, BUN/Creatinine Ratio 14.7, Glucose 89, Calcium 8.8 Microbiology: Microbiology 03/10/24 06:30 Nasal Secretion SARS-CoV-2 Antigen (Rapid) - Final 03/01/24 16:25 Sputum, Expectorated/Coughed Gram Stain - Final 03/01/24 16:25 Sputum, Expectorated/Coughed Respiratory Culture - Final 03/03/24 05:23 Nasal Secretion SARS-CoV-2 Antigen (Rapid) - Final 02/25/24 18:50 Nasal Secretion SARS-CoV-2 Antigen (Rapid) - Final D/C Instructions Discharge Diet: No restrictions Discharge Activity: Return to Normal Activity, May Shower and Use Walker Weight Bearing Status: Weight bearing as tolerated Call your doctor if you observe: Fever of 101 or Higher, Inability to urinate, Inability to have a bowel movement, Shortness of breath, Dizziness, Fainting spells, Swelling in the ankles, Chest pain and Uncontrolled pain Additional Instructions: Discharge home with ex daughter in law 03/30/2024, [facility] PT/OT/SN, oxygen. Oxygen documentation: Patient requires 4 LPM of oxygen via cannula due to diagnosis emphysema, hemoptysis; requires a concentrator and portable O2 tanks to allow patient to be mobile in the home and the community; O2 will improve the patient's condition in the home setting. Patient has appointment with [facility] 03/30/2024. Please Follow Up With: Mariajose Patricia When: As scheduled. Meaningful Use Info Meaningful Use Meaningful Use Diagnoses (Choose all that apply): None applicable Ischemic Stroke Statin Dosing Therapy Reference: STATIN DOSE THERAPY REFERENCE: * Patients > 75 years receive moderate or high dose statin therapy. * Patients 75 years or YOUNGER should receive HIGH intensity statin dose unless contraindicated. You will be required to document reason for non-treatment if statin daily dose does not meet guidelines. HIGH DOSE STATIN THERAPY DAILY Atorvastatin > than or = to 40 mg Rosuvastatin > than or = to 20 mg Amlodipine + Atorvastatin > than or = to 2.5/40 mg Ezetimibe + Simvastatin 10/80 mg Simvastatin 80mg Discharge Plan Admission Admit Date/Time: 02/25/24 16:13 Primary Reason for Your Visit: Debility. Attending Provider: Dirk Castro Chi Primary Care Provider: Brittany Persaud Instructions Additional Instructions / Restrictions: Discharge home with ex daughter in law 03/30/2024, [facility] PT/OT/SN, oxygen. Oxygen documentation: Patient requires 4 LPM of oxygen via cannula due to diagnosis emphysema, hemoptysis; requires a concentrator and portable O2 tanks to allow patient to be mobile in the home and the community; O2 will improve the patient's condition in the home setting. Patient has appointment with [facility] 03/30/2024. Discharge Orders/Prescriptions Prescriptions: New pantoprazole 20 mg Tablet,Delayed Release (Dr/Ec) 20 mg PO DAILY 30 Days Qty: 30 0RF Continued ferrous sulfate [Feosol] 325 mg (65 mg iron) tablet 325 mg PO DAILY cholecalciferol (vitamin D3) 50 mcg (2,000 unit) capsule 50 mcg PO DAILY Spiriva Respimat 2.5 mcg/actuation mist 2 puff INHALATION DAILY Qty: 3 3RF fluticasone propionate [Flonase Allergy Relief] 50 mcg/actuation spray,suspension 2 spray intranasal DAILY Qty: 3 3RF Rx Instructions: administer into each nostril albuterol sulfate 2.5 mg /3 mL (0.083 %) solution for nebulization 2.5 mg INHALATION Q6H PRN (Reason: Wheezing) Qty: 180 6RF ipratropium-albuterol 0.5 mg-3 mg(2.5 mg base)/3 mL solution for nebulization 3 ml INHALATION Q6H PRN (Reason: shortness of breath or wheezing) nitroglycerin [Nitrostat] 0.4 mg tablet, sublingual 0.4 mg SUBLINGUAL Q5-15M PRN (Reason: Chest Pain) Qty: 23 2RF folic acid 1 mg Tablet 1 mg PO DAILY atorvastatin 80 mg tablet 80 mg PO QHS albuterol sulfate 90 mcg/actuation HFA aerosol inhaler 2 puff inhalation Q6H PRN (Reason: Breathing) Rx Instructions: inhale 2 puffs by mouth and INTO THE LUNGS every 6 hours if needed for shortness of breath or wheezing budesonide-formoterol [Symbicort] 160-4.5 mcg/actuation HFA aerosol inhaler 2 puff inhalation Q12H Rx Instructions: inhale 2 puffs by mouth every 12 hours Eliquis 5 mg tablet 5 mg PO BID Qty: 60 11RF Discontinued B-complex with vitamin C Tablet 1 tab PO DAILY zinc gluconate 50 mg tablet 50 mg PO DAILY aspirin 81 mg Tablet 81 mg PO DAILY benzonatate 200 mg capsule 200 mg PO TID PRN PRN (Reason: cough) acetaminophen 500 mg capsule 1,000 mg PO Q8H PRN (Reason: Pain 1-6 or fever) oxycodone 5 mg tablet 5 mg PO Q6H PRN (Reason: pain (scale score 7-10)) prednisone 10 mg tablet 40 mg PO DAILY sulfamethoxazole-trimethoprim [Bactrim DS] 800-160 mg tablet 1 tab PO BID metoprolol tartrate 100 mg tablet 25 mg PO BID pantoprazole 20 mg tablet,delayed release (DR/EC) 20 mg PO DAILY Qty: 90 3RF diltiazem HCl 120 mg capsule,extended release 24hr 120 mg PO DAILY Qty: 90 3RF atorvastatin 10 mg tablet 10 mg PO DAILY Qty: 90 3RF isosorbide mononitrate 30 mg tablet extended release 24 hr 30 mg PO DAILY Qty: 90 3RF doxycycline hyclate 100 mg tablet 100 mg PO BID Qty: 20 0RF Referrals / Follow Up: Brittany Persaud MD [Primary Care Provider] - Disposition Disposition (needs filled in before D/C Order can be placed): Home Health Service
[2024-03-11 16:00] VITALS: BP 101/66; PULSE 68; RESP 20; TEMP 36.5; O2SAT 97
--- NOTE | 2024-03-11 19:32 | NURSING ---
Patient reports he continues to have a productive cough but only small flecks of blood and otherwise white sputum. 97% on 4L.
[2024-03-11] MEDS: Atorvastatin Calcium 80 MG Tablet PO (20:55)
--- NOTE | 2024-03-12 06:51 | NURSING ---
Patient continues to cough up sputum frequently. Sputum is thick, yellow-tinged, and has streaks of blood at times. Patient reports he feels the sputum is starting to clear up.
[2024-03-12 07:42] LABS: Hematocrit 26.2 % (40-54); Hemoglobin 7.9 g/dL (13.0-16.5)
[2024-03-12] MEDS: Ferrous Sulfate 325 MG Tablet PO (09:13)
[2024-03-12] MEDS: Folic Acid 1 MG Tablet PO (09:13)
[2024-03-12] MEDS: Cyanocobalamin 500 MCG Tablet 1000 MCG PO (09:13)
[2024-03-12] MEDS: Menthol/Lanolin/Calamine/Znox 113 GM Tube 1 APPLIC TOPICAL ×2 (09:14→19:51)
[2024-03-12] MEDS: Umeclidinium Bromide Inhaler 1 PUFF INHALATION (09:14)
[2024-03-12] MEDS: Senna/Docusate Sodium 1 Tablet 2 TABLET PO ×2 (09:14→19:47)
[2024-03-12] MEDS: APIXABAN 5 MG TABLET PO (09:14)
[2024-03-12] MEDS: Fluticasone 0.05% 1 SPRAY NASAL.SRY 2 SPRAY NASAL (09:14)
[2024-03-12] MEDS: Fluticasone/Salmeterol 232-14 Inhaler 1 PUFF INHALATION ×2 (09:14→19:50)
[2024-03-12] MEDS: Pantoprazole Sodium 20 MG Tablet PO (09:14)
[2024-03-12] MEDS: Zinc Sulfate 50 mg zinc (220 mg) ORAL capsule PO (09:15)
[2024-03-12] MEDS: Cholecalciferol (VIT D3) 25 MCG TABLET (1,000 UNITS) 50 MCG PO (09:15)
[2024-03-12 10:49] VITALS: BP 125/73; PULSE 82; RESP 18; TEMP 36.3; O2SAT 99
--- NOTE | 2024-03-12 11:58 | NURSING ---
Patient continues to cough up sputum frequently. Sputum is thick and blood-tinged.
[2024-03-12 12:18] VITALS: O2SAT 97
[2024-03-12] MEDS: Atorvastatin Calcium 80 MG Tablet PO (19:48)
[2024-03-12 19:54] VITALS: PULSE 74; RESP 18
[2024-03-13 06:00] VITALS: BMI 19.8
[2024-03-13 08:12] VITALS: BP 137/81; PULSE 93; RESP 16; TEMP 36.8; O2SAT 97
[2024-03-13] MEDS: Cyanocobalamin 500 MCG Tablet 1000 MCG PO (08:15)
[2024-03-13] MEDS: Ferrous Sulfate 325 MG Tablet PO (08:15)
[2024-03-13] MEDS: Folic Acid 1 MG Tablet PO (08:15)
[2024-03-13] MEDS: Fluticasone/Salmeterol 232-14 Inhaler 1 PUFF INHALATION ×2 (08:16→21:10)
[2024-03-13] MEDS: Fluticasone 0.05% 1 SPRAY NASAL.SRY 2 SPRAY NASAL (08:16)
[2024-03-13] MEDS: Menthol/Lanolin/Calamine/Znox 113 GM Tube 1 APPLIC TOPICAL ×2 (08:16→21:12)
[2024-03-13] MEDS: Umeclidinium Bromide Inhaler 1 PUFF INHALATION (08:16)
[2024-03-13] MEDS: Pantoprazole Sodium 20 MG Tablet PO (08:17)
[2024-03-13] MEDS: Senna/Docusate Sodium 1 Tablet 2 TABLET PO ×2 (08:17→21:10)
[2024-03-13] MEDS: Cholecalciferol (VIT D3) 25 MCG TABLET (1,000 UNITS) 50 MCG PO (08:18)
[2024-03-13] MEDS: Zinc Sulfate 50 mg zinc (220 mg) ORAL capsule PO (08:18)
[2024-03-13] MEDS: Atorvastatin Calcium 80 MG Tablet PO (21:11)
[2024-03-14 06:00] VITALS: BMI 19.8
[2024-03-14 08:43] VITALS: BP 91/59; PULSE 78; RESP 16; O2SAT 96
[2024-03-14] MEDS: Fluticasone/Salmeterol 232-14 Inhaler 1 PUFF INHALATION (08:45)
[2024-03-14] MEDS: Umeclidinium Bromide Inhaler 1 PUFF INHALATION (08:45)
[2024-03-14] MEDS: Cholecalciferol (VIT D3) 25 MCG TABLET (1,000 UNITS) 50 MCG PO (08:46)
[2024-03-14] MEDS: Ferrous Sulfate 325 MG Tablet PO (08:46)
[2024-03-14] MEDS: Cyanocobalamin 500 MCG Tablet 1000 MCG PO (08:47)
[2024-03-14] MEDS: Zinc Sulfate 50 mg zinc (220 mg) ORAL capsule PO (08:47)
[2024-03-14] MEDS: Pantoprazole Sodium 20 MG Tablet PO (08:47)
[2024-03-14] MEDS: Folic Acid 1 MG Tablet PO (08:48)
[2024-03-14] MEDS: Fluticasone 0.05% 1 SPRAY NASAL.SRY 2 SPRAY NASAL (08:48)
[2024-03-14] MEDS: Menthol/Lanolin/Calamine/Znox 113 GM Tube 1 APPLIC TOPICAL (08:49)
--- NOTE | 2024-03-14 11:59 | CASEMGMT ---
Social Work SW conducted BIMS () and PHQ-2 () for MDS assessment. Salina Navas MSW [employer]
[2024-03-14 14:00] VITALS: BP 98/59; PULSE 70; RESP 18; TEMP 36.6; O2SAT 99
[2024-03-14 14:21] VITALS: O2SAT 83; O2SAT 99
== END 2024-03-14 14:40 | disposition home health service (06) | DRG 177 ==
PROVIDERS: Admitting Provider Family Medicine Geriatric Medicine; PCP Internal Medicine; Referring Provider Family Medicine Geriatric Medicine; Visit Provider Family Medicine Geriatric Medicine
DX: J15.69 Pneumonia due to other Gram-negative bacteria (principal); E43 Unspecified severe protein-calorie malnutrition; J96.21 Acute and chronic respiratory failure with hypoxia; J44.0 Chronic obstructive pulmonary disease with (acute) lower respiratory infection; J90 Pleural effusion, not elsewhere classified; J44.1 Chronic obstructive pulmonary disease with (acute) exacerbation; Z68.1 Body mass index [BMI] 19.9 or less, adult; Z99.81 Dependence on supplemental oxygen; I48.0 Paroxysmal atrial fibrillation; D50.9 Iron deficiency anemia, unspecified; I10 Essential (primary) hypertension; I71.40 Abdominal aortic aneurysm, without rupture, unspecified; I25.10 Atherosclerotic heart disease of native coronary artery without angina pectoris; K21.9 Gastro-esophageal reflux disease without esophagitis; E53.8 Deficiency of other specified B group vitamins; E55.9 Vitamin D deficiency, unspecified; E78.2 Mixed hyperlipidemia; J30.9 Allergic rhinitis, unspecified; Z79.82 Long term (current) use of aspirin; Z95.5 Presence of coronary angioplasty implant and graft; Z79.01 Long term (current) use of anticoagulants; Z79.51 Long term (current) use of inhaled steroids; Z87.891 Personal history of nicotine dependence; Z79.899 Other long term (current) drug therapy; Z95.1 Presence of aortocoronary bypass graft; R91.8 Other nonspecific abnormal finding of lung field
CPT/HCPCS: 36415; 80048; 80053; 80074; 82595; 82652; 83520; 85014; 85018; 85025; 85652; 86038; 86140; 86225; 86235; 86256; 86431; 87070; 87205; 87426; 87811; 93005; 94640; 97110; 97116; 97162; 97166; 97530; 97535; 97802; J7050; A4216

== ENCOUNTER 2024-02-27 11:43 | Emergency (ER) | payer MEDICARE, SELFPAY ==
[2024-02-27] VITALS (9 sets, daily range): BP systolic 98–115; BP diastolic 59–102; PULSE 70–74; RESP 16; TEMP 36.4–36.6; O2SAT 94–99; BMI 20.5
--- NOTE | 2024-02-27 11:55 | CT_ITS ---
HISTORY: hemoptysis. TECHNIQUE: Helically acquired images were obtained of the chest without contrast. A radiation dose optimization technique was used for this scan. 914 images. COMPARISON: XR 02/15/2024, CTA 08/05/2023. FINDINGS: LARGE AIRWAYS: Patent. LUNGS: Moderate emphysema. Stable 5 mm noncalcified right upper lobe nodule. Calcified portable lobe granuloma again seen. Increased opacity in the right middle lobe superimposed on chronic scarring and bronchiectasis. Mild patchy dependent opacities in the right lower lobe. Mild left upper lobe groundglass opacities. Left lower lobe consolidation. PLEURA: Mild bilateral pleural effusions. HEART/PERICARDIUM: Mild hepatomegaly with coronary artery disease. Pacemaker enclosure device in place. Midline sternotomy. No pericardial effusion. VESSELS: Thoracic aorta nondilated. MEDIASTINUM/JANIS: Small calcified right hilar lymph nodes. UPPER ABDOMEN: Calcified splenic granulomas. BONES: Degenerative change. CT/Chest without Contrast IMPRESSION: Mild bilateral pleural effusions with multifocal consolidation most confluent in the lung bases, concerning for pneumonia. Moderate emphysema. Stable 5 mm right upper lobe pulmonary nodule. Presence of pulmonary emphysema on CT is an independent risk factor for lung cancer. Consider LDCT lung cancer screening in the future. Electronically Signed: Martha Roberson MD at 13:00 EDT ,
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
[2024-02-27 12:43] LABS: ALB/GLOB Ratio 0.9 RATIO (0.9-2.4); AST(SGOT) 34 U/L (15-37); Alanine Aminotransfer ALT/SGPT 57 U/L (16-61); Albumin, Serum 2.9 g/dL (3.2-5.0); Alkaline Phosphatase 90 U/L (45-117); Anion Gap 4 (5-15); BUN 36 mg/dL (7-18); BUN/Creat Ratio 20.5 RATIO (10-20); Calcium,Total 8.9 mg/dL (8.5-10.1); Chloride 107 mmol/L (98-107); Creatinine, Serum 1.76 mg/dL (0.70-1.30); EST Glomerular Filtration Rate 40 mL/min (>60); Est Glom Filt Rate - Afr Amer 48 mL/min (>60); Estimated Creatinine Clearance 35.57 ml/min; Globulin 3.2 g/dL (2.2-4.2); Glucose 92 mg/dL (74-106); Potassium 4.4 mmol/L (3.5-5.1); Protein, Total 6.1 g/dL (6.4-8.2); Sodium Level 139 mmol/L (136-145); Troponin-I HS 32 pg/mL (3.0-78.0)
[2024-02-27 12:55] LABS: Lactic Acid 1.7 mmol/L (0.4-1.9)
[2024-02-27 13:10] LABS: Absolute Lymphocyte Count 0.52 X10^3/uL (0.83-4.51); Basophil# 0.02 X10^3/uL; Basophil% 0.3 % (0-1); Eosinophil# 0.09 X10^3/uL; Eosinophils% 1.3 % (0-5); Hematocrit 29.7 % (40-54); Hemoglobin 9.2 g/dL (13.0-16.5); Lymphocyte # 0.52 X10^3/ul (0.83-4.51); Lymphocyte % 7.2 % (19-41); Mean Corpuscular Hgb 28.9 pg (27.0-32.0); Mean Corpuscular Volume 93.4 fL (80-94); Mean Platelet Vol. 10.7 fl (6.2-12.0); Monocyte# 0.57 X10^3/uL; Monocyte% 7.9 % (0-10); NRBC Flagged by Analyzer 0 % (0-5); Neutrophil # 5.95 X10^3/uL (2.7-7.7); Neutrophil % 82.9 % (47-70); POSITIVE DIFFERENTIAL YES; Platelet Count 263 K/mm3 (150-450); RBC Distribution Width CV 15.8 % (11.6-14.6); RBC Distribution Width SD 54.3 fl (35.1-43.9); Red Blood Count 3.18 M/mm3 (4.6-6.2); White Blood Count 7.2 K/mm3 (4.4-11.0)
[2024-02-27 13:11] LABS: Bacteria 0 SEEN /hpf (None Seen); Mucous, Urine 0 SEEN /hpf (<or=2+); Red Blood Cells-Urine 0 SEEN /hpf (0-5); White Blood Cells 0 SEEN /hpf (0-5)
[2024-02-27 13:27] LABS: Color, Urine Yellow (Yellow); Glucose, Dipstick Normal (Normal); Ketone-Dipstick Negative (Negative); Leukocyte Esterase-Dipstick Negative /ul (Negative); Nitrite-Dipstick Negative (Negative); Occult Blood-Urine Negative /ul (Negative); Protein-Dipstick 30 mg/dl (Negative); Urine Bilirubin Dipstick 1 mg/dL (Negative); Urine Clarity Clear (Clear); Urine Urobilinogen 4 mg/dl (Normal)
[2024-02-27] MEDS: 0.9% Normal Saline (500mL Bag) 500 ML 999 ML IV (13:43)
[2024-02-27 13:45] LABS: Squamous Epithelial Cells - UA 5-10 SEEN /hpf (0-5)
== END 2024-02-27 15:33 ==
PROVIDERS: Emergency Provider Emergency Medicine; PCP Internal Medicine; Visit Provider Emergency Medicine
DX: J15.69 Pneumonia due to other Gram-negative bacteria (principal); J43.9 Emphysema, unspecified; J44.0 Chronic obstructive pulmonary disease with (acute) lower respiratory infection; I48.0 Paroxysmal atrial fibrillation; E78.2 Mixed hyperlipidemia; I10 Essential (primary) hypertension; I95.9 Hypotension, unspecified; Z87.891 Personal history of nicotine dependence; J90 Pleural effusion, not elsewhere classified; I25.10 Atherosclerotic heart disease of native coronary artery without angina pectoris; R04.2 Hemoptysis; Z79.01 Long term (current) use of anticoagulants; Z99.81 Dependence on supplemental oxygen; Z95.1 Presence of aortocoronary bypass graft; K21.9 Gastro-esophageal reflux disease without esophagitis; Z79.82 Long term (current) use of aspirin; Z79.899 Other long term (current) drug therapy; Z79.51 Long term (current) use of inhaled steroids; R20.2 Paresthesia of skin
CPT/HCPCS: 71250; 80048; 80053; 81001; 83605; 84484; 85025; 96360; 99282; J7040; A4216

== ENCOUNTER → 2024-03-16 | Outpatient (CLI) | payer MEDICARE, SELFPAY ==
[2024-03-16 12:00] LABS: Absolute Lymphocyte Count 0.67 X10^3/uL (0.83-4.51); Absolute Neutrophil Count 5.5 X10^3/uL (2.0-7.7); Basophil# 0.07 X10^3/uL; Eosinophil# 0.11 X10^3/uL; Eosinophils% 1.6 % (0-5); Hematocrit 30.8 % (40-54); Hemoglobin 9.2 g/dL (13.0-16.5); Lymphocyte # 0.67 X10^3/ul (0.83-4.51); Lymphocyte % 9.7 % (19-41); Mean Corp Hgb Conc 29.9 g/dL (32-36); Mean Corpuscular Hgb 28.5 pg (27.0-32.0); Mean Corpuscular Volume 95.4 fL (80-94); Mean Platelet Vol. 10.6 fl (6.2-12.0); Monocyte% 7.3 % (0-10); NRBC Flagged by Analyzer 0 % (0-5); Neutrophil # 5.49 X10^3/uL (2.7-7.7); Neutrophil % 79.8 % (47-70); Platelet Count 200 K/mm3 (150-450); RBC Distribution Width CV 16.3 % (11.6-14.6); RBC Distribution Width SD 56.3 fl (35.1-43.9); Red Blood Count 3.23 M/mm3 (4.6-6.2); White Blood Count 6.9 K/mm3 (4.4-11.0)
[2024-03-16 12:26] LABS: Anion Gap 4 (5-15); BNP,B-Type NATRIURETIC PEPTIDE 219.7 pg/mL (0-100); BUN 21 mg/dL (7-18); BUN/Creat Ratio 19.1 RATIO (10-20); Calcium,Total 9.5 mg/dL (8.5-10.1); Chloride 106 mmol/L (98-107); EST Glomerular Filtration Rate 69 mL/min (>60); Est Glom Filt Rate - Afr Amer 83 mL/min (>60); Glucose 78 mg/dL (74-106); Sodium Level 139 mmol/L (136-145)
== END | disposition home or self-care (01) ==
LOC: LAB 11:28
PROVIDERS: PCP Internal Medicine; Referring Provider Nurse Practitioner Gerontology; Visit Provider Nurse Practitioner Gerontology
DX: R06.00 Dyspnea, unspecified (principal)
CPT/HCPCS: 36415; 80048; 83880; 85025

== ENCOUNTER 2024-03-21 14:02 | Emergency (ER) | payer MEDICARE, SELFPAY ==
[2024-03-21 14:03] VITALS: PULSE 100; RESP 20; TEMP 36.4; O2SAT 92
[2024-03-21 14:15] VITALS: BMI 21.2
[2024-03-21 14:18] VITALS: O2SAT 100
--- NOTE | 2024-03-21 14:41 | EKG12_ITS ---
Test Reason : SOB Blood Pressure : / mmHG Vent. Rate : 086 BPM Atrial Rate : 000 BPM P-R Int : 000 ms QRS Dur : 092 ms QT Int : 386 ms P-R-T Axes : 000 093 -17 degrees QTc Int : 461 ms Atrial fibrillation Rightward axis Low voltage QRS Abnormal QRS-T angle, consider primary T wave abnormality Abnormal ECG Confirmed by JAMIR BALES, YOGESH ([id number]), video tape editor BRANDO CHAVEZ ([id number]) on 03/22/2024 1:14:53 PM Referred By: Confirmed By:YOGESH BOWIE MD
--- NOTE | 2024-03-21 14:41 | CT_ITS ---
STUDY: CT BRAIN WITHOUT CONTRAST REASON FOR EXAM: Male, 79 years old. ams RADIATION DOSAGE (If Supplied By Facility): CTDIvol = ( 44.99 ) mGy, DLP = ( 796.11 ) mGycm TECHNIQUE: Transaxial CT imaging of the brain was performed without administration of intravenous contrast material. Individualized dose optimization techniques were used for this CT. The protocol utilizes one or more of the following dose reduction techniques: automated exposure control, adjustment of mA and/or kV according to patient size,and/or use of iterative reconstruction technique. COMPARISON: January 28, 2022 CT head FINDINGS: Normal soft tissue structures. Normal calvarium. There is moderate cerebral atrophy with widening of the extra-axial spaces and ventricular dilatation. Normal white matter tracts of the cerebral hemispheres. Normal basal ganglia and thalami. Normal brainstem. Normal cerebellum. There is no intracranial hemorrhage. There are no findings of an acute ischemic infarction. Soft tissue density in the external auditory canals bilaterally. Normal visualized paranasal sinuses. CT/Brain/Head without Contrast IMPRESSION: No acute disease Electronically Signed: Parth Tapia MD at 16:55 EDT ,
--- NOTE | 2024-03-21 15:11 | RAD_ITS ---
STUDY: X-RAY CHEST REASON FOR EXAM: Male, 79 years old. chest pain TECHNIQUE: Frontal and lateral views of the chest. COMPARISON: 02/15/2024. FINDINGS: There is severe fibrotic COPD. There are opacities in the lung bases consistent with atelectasis or infiltrate with pleural effusions. Findings are better than on the prior study. Mild cardiomegaly. Previous CABG. Pacemaker is seen with leads terminating in the right atrium and right ventricle. Normal mediastinum and jonah. There is prominence of the pulmonary hilar arteries without peripheral pulmonary vascular congestion, suggesting pulmonary hypertension. Normal visualized aortic arch and descending thoracic aorta. Normal visualized thoracic spine. Normal visualized ribs, clavicles, and shoulders. There is no demonstrated abnormality of the visualized soft tissue structures of the upper abdomen. RAD/Chest PA and Lateral IMPRESSION: Severe fibrotic COPD. Atelectasis or infiltrate with small pleural effusions in both lung bases, improved since prior exam. Electronically Signed: Hussain Lopez MD at 16:17 EDT ,
[2024-03-21 15:18] LABS: Absolute Lymphocyte Count 0.48 X10^3/uL (0.83-4.51); Basophil# 0.06 X10^3/uL; Basophil% 1.1 % (0-1); Eosinophil# 0.17 X10^3/uL; Eosinophils% 3.2 % (0-5); Hematocrit 28.3 % (40-54); Hemoglobin 8.4 g/dL (13.0-16.5); Lymphocyte # 0.48 X10^3/ul (0.83-4.51); Mean Corp Hgb Conc 29.7 g/dL (32-36); Mean Corpuscular Hgb 28.2 pg (27.0-32.0); Mean Platelet Vol. 9.9 fl (6.2-12.0); Monocyte% 11.3 % (0-10); NRBC Flagged by Analyzer 0 % (0-5); Neutrophil # 4.01 X10^3/uL (2.7-7.7); Neutrophil % 75.2 % (47-70); POSITIVE DIFFERENTIAL YES; Platelet Count 230 K/mm3 (150-450); RBC Distribution Width CV 16.3 % (11.6-14.6); RBC Distribution Width SD 56.5 fl (35.1-43.9); Red Blood Count 2.98 M/mm3 (4.6-6.2); White Blood Count 5.3 K/mm3 (4.4-11.0)
[2024-03-21 15:24] LABS: International Normalized Ratio 1.4; Prothrombin Time (Protime)PT. 17.2 SECONDS (11.7-14.9)
[2024-03-21 15:25] LABS: Partial Thromboplast Time 38.1 Seconds (24.1-36.2)
[2024-03-21 15:32] LABS: Anion Gap 4 (5-15); BUN 19 mg/dL (7-18); BUN/Creat Ratio 19.6 RATIO (10-20); Calcium,Total 9.3 mg/dL (8.5-10.1); Chloride 108 mmol/L (98-107); Creatinine, Serum 0.97 mg/dL (0.70-1.30); EST Glomerular Filtration Rate 80 mL/min (>60); Est Glom Filt Rate - Afr Amer 97 mL/min (>60); Estimated Creatinine Clearance 66.49 ml/min; Glucose 88 mg/dL (74-106); Potassium 4.3 mmol/L (3.5-5.1); Sodium Level 141 mmol/L (136-145); Troponin-I HS (w/2H Reflex) 17 pg/mL (3.0-78.0)
[2024-03-21 15:40] LABS: BNP,B-Type NATRIURETIC PEPTIDE 335.1 pg/mL (0-100)
[2024-03-21 15:49] VITALS: BP 138/88; RESP 20; O2SAT 100
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
[2024-03-21 16:55] VITALS: O2SAT 98
[2024-03-21 17:10] LABS: Reflex Troponin-HS? (from REC) Y
[2024-03-21 17:13] VITALS: BP 151/93; RESP 18; O2SAT 100
--- NOTE | 2024-03-21 17:15 | ED.RN ---
Ambulated with walker and home 4L NC. Steady gait. unable to obtain pulse ox reading during ambulation due to poor circulation and equipment unable to obtain reading. starting pulse ox 98% on 4L NC RR 20 min. Post ambulation pulse ox reading obtained within a minute with ear pulse ox. 100% on 4L NC. Doctor updated.
[2024-03-21] MEDS: Furosemide 40 MG/4 ML Vial IV (17:25)
[2024-03-21 17:40] VITALS: BP 147/89; PULSE 79; RESP 20; TEMP 36.6; O2SAT 100
== END 2024-03-21 17:41 | disposition home or self-care (01) ==
PROVIDERS: Emergency Provider Emergency Medicine; PCP Internal Medicine; Visit Provider Emergency Medicine
DX: J96.11 Chronic respiratory failure with hypoxia (principal); J44.9 Chronic obstructive pulmonary disease, unspecified; I48.0 Paroxysmal atrial fibrillation; H72.90 Unspecified perforation of tympanic membrane, unspecified ear; I25.10 Atherosclerotic heart disease of native coronary artery without angina pectoris; G47.33 Obstructive sleep apnea (adult) (pediatric); I25.2 Old myocardial infarction; Z87.891 Personal history of nicotine dependence; Z79.01 Long term (current) use of anticoagulants; Z86.16 Personal history of COVID-19
CPT/HCPCS: 70450; 71046; 80048; 83880; 84484; 85025; 85610; 85730; 93005; 96374; 99285; A4216; J1940

== ENCOUNTER → 2024-04-26 | Outpatient (CLI) | payer MEDICARE, SELFPAY ==
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
[2024-04-26 10:25] VITALS: BP 137/79; PULSE 79; O2SAT 95; BMI 20.2
--- NOTE | 2024-04-26 10:54 | PCM.CR.ITP ---
Diagnosis General Information Admitting Diagnosis: CABG Personal Learning Style:: Audio/Visual Barriers to Learning: No Barriers Stage of change r/t lifestyle modifications:: Contemplation Gave educational material for:: Treating Heart Disease, How The Heart Works, What it means to have Heart Disease, How Coronary Artery Disease is Diagnosed, Heart Procedures, What Heart Medications Do, Risk Factors & Modifications, Living an Active Life, Nutrition, Emotions & Heart Disease, Stress Management & Relaxation and Sleep Disorders & Heart Disease Education/Goals Cardiac Rehabilitation Goals Personal Goals: Initial Assessment: Improve management of stress and emotions, Improve energy level, Get back to work, or to resume activities faster, Improve knowledge of cardiac disease and Improve muscle strength and endurance Scale for measuring improvement of personal goals Diagnosis & Disease Process Outcomes/Goals: Pt IDs own risk factors & lifestyle modifications by Session 10, Verbalizes symptoms of angina & response by session 3., Pt independently manages and Other Additional Outcomes/Goals: Exercise - Initial Assessment Visit Date of Eval: 04/26/24 (initial eval ) Mets: Pre-: >3 METS for 30 minutes by discharge, >5 METS for 30 minutes by discharge, >7 METS for 30 minutes by discharge and Unable to meet goal due to: (see comment below) Physician Prescribed Exercise Modalities: Yanni Hernandez AD-7, Make YES! HappenFit Stepper, Make YES! HappenFit Pro-II Ergometer and Make YES! HappenFit Lateral [place] Frequency: 3x/week for 12 weeks [36 sessions] Intensity: 60-80% of age predicted maximum heart rate reserve Duration: 30 - 45 minutes Current METSs:: 3 Target Heart Rate:: 85-107 Resting Blood Pressure: 137/79 EKG Type: A-Fib Outcomes & Goals Goals:: Verbalizes understanding of THR, RPE & goal METS by session 6, Documents in home exercise log/reports 30 min aerobic 5 day/wk by DC, Demonstrates accurate pulse taking by DC and Other additional outcome/goals: see below Intervention & Plan Exercise Program Goals: Instruct on personal THR & RPE, Instruct on MET level & personal MET goal, Show patient to take own pulse /validate performance until accurate, Instruct on home exercise and Other additional plan/int Physical Activity Home Exercise Physical Activity - Home Exercise: Safe Exercise, Warm-up, Self-monitoring, Cool-Down, Home Exercise > 30 min Daily and Sitting Time <3 hours/daily Outcomes & Goals Outcomes/Goals: Demonstrates correct Warm-up/exercise Cool-Down (S3) if = 2.5 METs, Verbalizes symptoms of exercise intolerance by Session 3 (S3), Demonstrate safe equipment use (S3) & follows exercise prescrition (6) and Other: See below Intervention & Plan Plan/Intervention: Instruct warm-up & cool-down if exercising at > 2 METs, Instruct on symptoms of exercise intolerance & actions to take, Instruct & monitor on saf, Assess intial functional capacity & safety risk and Other See below Nutrition - Initial Assessment Program Goals Nutrition Program Goals Patient has diagnosis of Hyperlipidemia (ICD E78)?: Yes Visit Date of Eval: 04/26/24 (initial eval ) Cholesterol/Lipids (Other Core Measures) Determine presence & major risk factors that modify LDL goal: Cigarette smoking, Hypertension or hypertensive medication, Low HDL cholesterol <40 mg/dL*, Family history of premature CHD in Male < 55 years: female <65 yearsFa and Age men > 45 years; women >/= 55 years Outcomes/Goals: Pt IDs own risk factors & lifestyle modifications by Session 10, Verbalizes symptoms of angina & response by session 3., Pt independently manages and Other Additional Outcomes/Goals: Intervention/Plan: Advocate for lipid panel cholesterol medication if applicable, Instruct on personal lipid levels & lipid goals/NCEP guidelines, Instruct on cholesterol and Other additional plan/int Referral to dietitian:: No (declines) Diabetes (Other Core Measures) Diabetes Type: Not Applicable Weight Mgt (Other Care) Height: 6 ft 2 in Weight:: 158 lb BMI: 20.2 Diagnosis Overweight/Obesity BMI> 30% ICD-10 E66: No Diagnosis High BMI/Morbid Obesity BMI> 35% ICD-10 Z68: No Outcomes/Goals: Pt sets, maintains & shows weight loss goal & trend during rehab and Other additional outcomes/goals Intervention/Plan: Instruct on ideal BMI & set weight loss goal w/patient, Assist pt to ID & incorporate diet changes for weight loss by S9, Refer to Structured Weight Loss program as appropriate, Encourage goal of using 250-300dcal per session for weight loss and Other additional plan/interventions Healthy Eating Habits Will attend diet classes:: Yes Outcomes/Goals:: Consume diet rich in vegs,fruits,whole grain/high fiber,fish,lean meat, Limit sat/trans fats,cholesterol & added salts & sugars and Other additional outcome/goals: Intervention/Plan:: Assess current eating habits and Other Additional plan/interventions Education Gave educational materials for:: Signs & symptoms of hypoglycemia, Signs & symptoms of hyperglycemia and Relate diabetes to coronary artery disease Core - Initial Assessment Visit Date of Eval: 04/26/24 (initial eval ) Medication Compliance Preventative Medication(s):: Statin/lipid and Eliquis H/O mental health issues: depression, anxiety, or addiction?: No Doesn?t believe in the benefits of treatment?: No Believes medications are unnecessary or harmful?: No Has a concern about medication side effects?: No Expresses concern over the cost of medications?: No Outcomes/Goals: Verbalizes medications,desired effect & common side effects @ DC, Pt self-reports following medication regimen, Keeps card in wallet w/medications listed by DC and Other additional outcome/goals: Interventions/plans: Instruct on medication effects & side effects, Review medication list w/patient every two weeks, Instruct importance of taking meds as ordered & assist problem solving and Other additional Tobacco Use Tobacco Use: Non-smoker How long ago did you quit using tobacco products?: Greater than or equal to 6 months ago Years Smokin Do you use smokeless tobacco?: No Hypertension Hypertension Diagnosis:: Hypertension ICD-10 I10 Resting Blood Pressure:: 137/79 [place] [employer] Hypertension Guidelines Outcomes/Goals: Able to verbalize/achieve optimal blood pressure <130/80, Incorporates diet changes & exercise for blood pressure control by DC and Other additional outcomes/goals Interventions/plan: Instruct on optimal blood pressure, hypertension & medications, Instruct on effects of sodium, alcohol, stress, exercise &hypertension and Other additional plan/interventions Tobacco Cessation Referral Smoking Cessation Referral:: No Individual Education/Counseling:: No Education Schedule Given:: Yes Psychosocial - Initial Assess VIsit Date of Eval: 04/26/24 (initial eval ) History of previous Mental disease:: No Target Goals Target Goals Referral to Behavioral Health PS - Interventions: Yes: Attend Stress Management Classes Outcomes/Goals: See list Psychosocial Outcomes/Goals:: ID's personal stressors & 2 strategies to manage stress by discharge and Other Additional outcome/goals: Intervention/Plan: See List Interventions/Plan:: Assess stressors,coping strategies & signs of derpression on admission, Instruct/assist pt to develop coping & personal stress Mgt strategies, Refer to Behavioral Health if appropriate, Refer to Physician if appropriate, Instruct patient to recognize signs & symptoms of depression, Instruct patient to recog and Other additional plan/intervention Patient Health Questionnaire PHQ-9 Screening Initial Assessment: 1. Little interest or pleasure in doing things: More than half the days 2. Feeling down, depressed, or hopeless: Not at all 3. Trouble falling or staying asleep, or sleeping too much: Nearly every day 4. Feeling tired or having little energy: More than half the days 5. Poor appetite or overeating: Not at all 6. Feeling bad about yourself -- or that you are a failure or have let yourself or your family down: Not at all 7. Trouble concentrating on things, such as reading the newspaper or watching television: Not at all 8. Moving or speaking so slowly that other people could have noticed. Or the opposite - being so fidgety or restless that you have been moving around a lot more than usual: Not at all 9. Thoughts that you would be better off , or of hurting yourself in some way: Not at all How difficult have these problems made it for you to do your work, take care of things at home, or get along with other people?: Somewhat difficult Total Score: 7 RANDY-Q SV Test Statements CAD is a disease of the arteries in the heart: I Don't Know Examples of risk factors for heart disease: I Don't Know Angina is chest pain or discomfort: I Don't Know The benefits of resistance training include: I Don't Know Eating more meat and dairy products: I Don't Know Anti-platelet medications such as aspirin are important: I Don't Know The only effective way to manage stress: I Don't Know An exercise warm-up slowly increases heart rate: I Don't Know Prepared, processed foods usually have high sodium: I Don't Know Depression is common after a heart attack: I Don't Know The statin medications lower cholesterol: I Don't Know To control blood pressure, lower the amount of sodium: I Don't Know If someone gets chest discomfort during walking: I Don't Know Transfats are partially hydrogenated vegetable oils: I Don't Know Sleep apnea that is not treated increases the risk: I Don't Know To control cholesterol, one should become a vegetarian: I Don't Know Someone knows if he/she is exercising at the right level: I Don't Know Diabetes cannot be prevented with exercise & health eating: I Don't Know Stress is a large risk for heart attack: I Don't Know A diet that can help lower blood pressure is rich in: I Don't Know Total Score Total Correct Responses: 0 Self-Efficacy 6-Item Scale Initial Assessment: We would like to know how confident you are in doing certain activities. Please select your confidence level for: Fatigue Select Number: 8 Physical Discomfort or Pain Select Number: 8 Emotional Distress Select Number: 8 Other Symptoms or Health Problems Select Number: 3 Different Tasks and Activities Select Number: 3 Medication Select Number: 5 Total Score:: 5 Nutrition Survey Nutrition Survey Instructions Scoring Instructions Nutrition Survey Initial: Have you lost >10 lbs over the past 2 months without trying?: No Are you following a special diet at home for diabetes, low fat, or low salt?: No Are you interested in meeting with a dietitian for help understanding your diet?: No Do you eat less than 3 meals a day?: Yes Do you eat fatty meats (eisenberg, sausage, ribs, etc), fried foods, desserts, large amounts of salad dressings, margarine, butter, or cheese most days?: No Do you have food allergies? [Enter types in comment field]: No Do you eat in restaurants more than 3 times a week?: No Do you season food with salt, seasoning salt, or garlic salt?: Yes Do you used canned, boxed, frozen meals, or soups, seasoning packets?: Yes Total Score:: 3 Exercise - 30-day Assessment Physician Prescribed Exercise Modalities: Yanni Hernandez AD-7, SciFit Stepper, SciFit Pro-II Ergometer and SciFit Lateral [place] Exercise - 60-day Assessment Physician Prescribed Exercise Modalities: Yanni Hernandez AD-7, SciFit Stepper, SciFit Pro-II Ergometer and SciFit Lateral Housing Property Manager Exercise - 90-day Assessment Physician Prescribed Exercise Modalities: Yanni Hernandez AD-7, SciFit Stepper, SciFit Pro-II Ergometer and SciFit Lateral Housing Property Manager Exercise - Final/Discharge Physician Prescribed Exercise Modalities: Yanni Hernandez AD-7, SciFit Stepper, SciFit Pro-II Ergometer and SciFit Lateral Housing Property Manager Frequency: 3x/week for 12 weeks [36 sessions] Intensity: 60-80% of age predicted maximum heart rate reserve Current METSs:: 3 Target Heart Rate:: 85-107 Nutrition - 30-Day Assessment Weight Mgt (Other Care) Height: 6 ft 2 in Weight:: 158 lb BMI: 20.2 Nutrition - 60-Day Assessment Weight Mgt (Other Care) Height: 6 ft 2 in Weight:: 158 lb BMI: 20.2 Core - 30-Day Assessment Tobacco Use Years Smokin Core - Final Assessment Hypertension Resting Blood Pressure:: 137/79 [place] [employer] Hypertension Guidelines Core - 60-Day Assessment Hypertension Resting Blood Pressure:: 137/79 [place] [employer] Hypertension Guidelines Psychosocial - 30-Day Assess Target Goals Target Goals Referral to Behavioral Health PS - Interventions: Yes: Attend Stress Management Classes Psychosocial - 60-Day Assess Target Goals Target Goals Referral to Behavioral Health PS - Interventions: Yes: Attend Stress Management Classes Psychosocial - 90-Day Assess Target Goals Target Goals Referral to Behavioral Health PS - Interventions: Yes: Attend Stress Management Classes Psychosocial - Final Assessmen Target Goals Target Goals Referral to Behavioral Health PS - Interventions: Yes: Attend Stress Management Classes Nutrition - 90-Day Assessment Weight Mgt (Other Care) Height: 6 ft 2 in Weight:: 158 lb BMI: 20.2 Nutrition - Final Assessment Program Goals Patient has diagnosis of Hyperlipidemia (ICD E78)?: Yes Weight Mgt (Other Care) Height: 6 ft 2 in Weight:: 158 lb BMI: 20.2
[2024-04-26 11:03] VITALS: BP 137/79; BMI 20.2
== END | disposition home or self-care (01) ==
LOC: CR 09:54
PROVIDERS: PCP Internal Medicine; Referring Provider Internal Medicine Cardiovascular Disease; Visit Provider Internal Medicine Cardiovascular Disease
DX: I10 Essential (primary) hypertension (principal); I48.0 Paroxysmal atrial fibrillation; E78.2 Mixed hyperlipidemia; I25.10 Atherosclerotic heart disease of native coronary artery without angina pectoris; Z86.79 Personal history of other diseases of the circulatory system; Z95.1 Presence of aortocoronary bypass graft; Z95.0 Presence of cardiac pacemaker

== ENCOUNTER → 2024-04-29 | Outpatient (CLI) | payer MEDICARE, SELFPAY ==
[2024-04-26 11:03] VITALS: BMI 20.2
--- NOTE | 2024-04-29 17:25 | CT_ITS ---
STUDY: LOW DOSE CT LUNG CANCER SCREENING REASON FOR EXAM: Male, 79 years old. smoking RADIATION DOSAGE (If Supplied By Facility): CTDIvol = ( 3.02 ) mGy, DLP = ( 112.87 ) mGycm TECHNIQUE: No contrast was administered. Low dose technique was utilized (average mAS-38 and kVp 120). 1.25 mm axial source images with a slice interval of 1.25-mm were reconstructed in lung windows. . Coronal sagittal reformats obtained. COMPARISON: January 16, 2023, February 27, 2024 NODULES: Nodule #: 1 Density: Solid Lung location: Right upper lobe lobe: 2.8 cm from pleura Location in series: Series Number: 2 Image: 56 Size - D1 x D2 mm: 5 x 3 mm: 4 average diameter Margin: Circumscribed Shape: Oval Calcification: None Fat: None Temporal comparison: Unchanged from January 16, 2023 Nodule #: 2 Density: Solid Lung location: Left upper lobe lobe: 2.3 cm from pleura Location in series: Series Number: 2 Image: 1: 118 Size - D1 x D2 mm: 2 x 2 mm: 2 average diameter Margin: Circumscribed Shape: Round Calcification: None Fat: None Temporal comparison: Unchanged from January 16, 2023 Other: Stable calcified granulomas medial right upper lobe. Parenchyma: Severe diffuse emphysematous change most prominent in the upper lungs. Moderate bilateral layering pleural effusions with mild compressive atelectasis of the posterior lower lobes. Atelectasis of the lateral segment right middle lobe. . No pneumothorax. Endobronchial lesion: Mild endobronchial debris with right bronchus intermedius. Mild diffuse peribronchial thickening. Aorta: Aortic atherosclerosis without ectasia. CORONARY ARTERIES: Severe dense calcified coronary atherosclerosis. Suggestion of left coronary stent. Heart: 2-lead left chest cardiac pacer. Borderline cardiomegaly. No pericardial effusion. Left atrial appendage clip. Pulmonary artery: No main pulmonary arterial enlargement. Mediastinal nodes: No mediastinal or hilar adenopathy. Other chest and abdominal findings: Unremarkable thyroid. Unremarkable esophagus. Splenic calcified sequela of prior granulomatous disease.. Scattered peripheral atherosclerosis. Prior sternotomy., February 27, 2024 CT/Low Dose CT Lung Screening IMPRESSION: Stable small 2 to 4 mm noncalcified nodules without suspicious change from January 16. Moderate layering pleural effusions with scattered linear atelectasis within the lower lungs, not significantly changed from prior CT Thoracic and abdominal sequela of prior granulomatous disease. . Lung-RADS category 2 - Continue annual screening with LDCT in 12 months. IMPORTANT NOTES FOR USE: ACR Lung-RADS Version 1.1 Assessment Categories Release Date: 2018 Category: Coded 0-4 bases on nodule(s) with highest degree of suspicion. Negative screen is defined as categories 1 and 2; a positive screen is defined as categories 3 and 4. Category 3 and 4A nodules that are unchanged on interval CT should be coded as category 2, and individuals returned to screening in 12 months. Category 4X: Category 3 or 4 nodules with additional imaging findings that increase the suspicion of lung cancer, such as spiculation, GGN that doubles in size in 1 year, enlarged lymph notes, etc. Category Modifiers: S (significant finding unrelated to lung cancer) Electronically Signed: Aubrey Siddiqui MD at 20:37 EDT ,
== END | disposition home or self-care (01) ==
PROVIDERS: PCP Internal Medicine; Referring Provider Nurse Practitioner Acute Care; Visit Provider Nurse Practitioner Acute Care
DX: Z12.2 Encounter for screening for malignant neoplasm of respiratory organs (principal); F17.210 Nicotine dependence, cigarettes, uncomplicated
CPT/HCPCS: 71271

== ENCOUNTER 2024-06-15 13:00 | Outpatient (RCR) | payer MEDICARE, SELFPAY ==
[2024-04-26 11:03] VITALS: BMI 20.2
--- NOTE | 2024-06-03 14:43 | CR.ITP_ITS ---
Exercise - Initial Assessment Visit Comments:: Isaias has not attended 1 session of rehab at this time. Family called and said they would like to have him start ThursdayJun 06. Physician Prescribed Exercise Modalities: Schwinn Airdyne AD-7, SciFit Stepper, SciFit Pro-II Ergometer and SciFit Lateral Respiratory Therapy Assistant Psychosocial - Initial Assess Target Goals Target Goals Nutrition Survey Nutrition Survey Instructions Scoring Instructions Exercise - 30-day Assessment Visit Date of Eval: 06/03/24 Comments:: Isaias has not attended 1 session of rehab at this time. Family called and said they would like to have him start ThursdayJun 06. Physician Prescribed Exercise Modalities: Schwinn Airdyne AD-7, SciFit Stepper, SciFit Pro-II Ergometer and SciFit Lateral [place] Frequency: 3x/week for 12 weeks [36 sessions] Intensity: 60-80% of age predicted maximum heart rate reserve Duration: 30 - 45 minutes Current METSs:: 3 Target Heart Rate:: 85-107 Resting Blood Pressure: 137/79 EKG Type: A-Fib Outcomes & Goals Goals:: Verbalizes understanding of THR, RPE & goal METS by session 6, Documents in home exercise log/reports 30 min aerobic 5 day/wk by DC, Demonstrates accurate pulse taking by DC and Other additional outcome/goals: see below Intervention & Plan Exercise Program Goals: Instruct on personal THR & RPE, Instruct on MET level & personal MET goal, Show patient to take own pulse /validate performance until accurate, Instruct on home exercise and Other additional plan/int 30-day Reassessments 30 day Reassessments:: Not Met Physical Activity Home Exercise Physical Activity - Home Exercise: Safe Exercise, Warm-up, Self-monitoring, Cool-Down, Home Exercise > 30 min Daily and Sitting Time <3 hours/daily Outcomes & Goals Outcomes/Goals: Demonstrates correct Warm-up/exercise Cool-Down (S3) if = 2.5 METs, Verbalizes symptoms of exercise intolerance by Session 3 (S3), Demonstrate safe equipment use (S3) & follows exercise prescrition (6) and Other: See below Intervention & Plan Plan/Intervention: Instruct warm-up & cool-down if exercising at > 2 METs, Instruct on symptoms of exercise intolerance & actions to take, Instruct & monitor on saf, Assess intial functional capacity & safety risk and Other See below 30-day Reassessments 30 day Reassessments:: Not Met Exercise - 60-day Assessment Physician Prescribed Exercise Modalities: Yanni Hernandez AD-7, SciFit Stepper, SciFit Pro-II Ergometer and SciFit Lateral Respiratory Therapy Assistant Exercise - 90-day Assessment Physician Prescribed Exercise Modalities: Yanni Hernandez AD-7, SciFit Stepper, SciFit Pro-II Ergometer and SciFit Lateral Respiratory Therapy Assistant Exercise - Final/Discharge Physician Prescribed Exercise Modalities: Yanni Hernandez AD-7, SciFit Stepper, SciFit Pro-II Ergometer and SciFit Lateral Respiratory Therapy Assistant Psychosocial - 30-Day Assess Target Goals Target Goals Psychosocial - 60-Day Assess Target Goals Target Goals Psychosocial - 90-Day Assess Target Goals Target Goals Psychosocial - Final Assessmen Target Goals Target Goals
[2024-06-03 14:46] VITALS: BP 137/79
== END 2024-06-18 23:59 ==
LOC: CR 13:00
PROVIDERS: PCP Internal Medicine; Referring Provider Internal Medicine Cardiovascular Disease; Visit Provider Internal Medicine Cardiovascular Disease
DX: Z95.1 Presence of aortocoronary bypass graft (principal); I48.0 Paroxysmal atrial fibrillation; Z86.79 Personal history of other diseases of the circulatory system; I25.10 Atherosclerotic heart disease of native coronary artery without angina pectoris; E78.2 Mixed hyperlipidemia; I10 Essential (primary) hypertension; Z95.0 Presence of cardiac pacemaker
CPT/HCPCS: 93798

== ENCOUNTER 2024-07-18 13:00 | Outpatient (RCR) | payer MEDICARE, SELFPAY ==
[2024-04-26 11:03] VITALS: BMI 20.2
[2024-06-19 00:07] VITALS: BP 137/79
--- NOTE | 2024-06-29 08:35 | PCM.CR.ITP ---
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 Little interest or pleasure in doing things: More than half the days 2. Feeling down, depressed, or hopeless: Not at all 3. Trouble falling or staying asleep, or sleeping too much: Nearly every day 4. Feeling tired or having little energy: More than half the days 5. Poor appetite or overeating: Not at all 6. Feeling bad about yourself -- or that you are a failure or have let yourself or your family down: Not at all 7. Trouble concentrating on things, such as reading the newspaper or watching television: Not at all 8. Moving or speaking so slowly that other people could have noticed. Or the opposite - being so fidgety or restless that you have been moving around a lot more than usual: Not at all 9. Thoughts that you would be better off , or of hurting yourself in some way: Not at all How difficult have these problems made it for you to do your work, take care of things at home, or get along with other people?: Somewhat difficult Total Score: 7 Self-Efficacy 6-Item Scale 60-Day Re-eval Assessment: We would like to know how confident you are in doing certain activities. Please select your confidence level for: Fatigue Select Number: 8 Physical Discomfort or Pain Select Number: 8 Emotional Distress Select Number: 8 Other Symptoms or Health Problems Select Number: 3 Different Tasks and Activities Select Number: 3 Medication Select Number: 5 Total Score:: 5 Nutrition Survey Nutrition Survey Instructions Scoring Instructions Exercise - 30-day Assessment Physician Prescribed Exercise Modalities: SciFit Stepper and SciFit Lateral [place] Exercise - 60-day Assessment Visit Date of Eval: 06/29/24 Session #:: 9 Physician Prescribed Exercise Modalities: SciFit Stepper and SciFit Lateral Protective Services Case Worker Frequency: 3x/week for 12 weeks [36 sessions] Intensity: 60-80% of age predicted maximum heart rate reserve Duration: 30 - 45 minutes Current METSs:: 3 Target Heart Rate:: 85-107 Current RPE:: 11.5-13 Maximum Excercise HR:: 133 Resting Blood Pressure: 134/80 Maximum Exercise Blood Pressure: 160/90 EKG Type: Afib with occas PVC Outcomes & Goals Goals:: Verbalizes understanding of THR, RPE & goal METS by session 6, Documents in home exercise log/reports 30 min aerobic 5 day/wk by DC, Demonstrates accurate pulse taking by DC and Other additional outcome/goals: see below Intervention & Plan Exercise Program Goals: Instruct on personal THR & RPE, Instruct on MET level & personal MET goal, Show patient to take own pulse /validate performance until accurate, Instruct on home exercise and Other additional plan/int 30-day Reassessments 30 day Reassessments:: Progressing Reassessment Notes & Comments:: Pt is on O2. Was increased to 4L last session. The importance of monitoring O2 stressed to pt. Pt demonstrates understanding. Physical Activity Home Exercise Physical Activity - Home Exercise: Safe Exercise, Warm-up, Self-monitoring, Cool-Down, Home Exercise > 30 min Daily and Sitting Time <3 hours/daily Outcomes & Goals Outcomes/Goals: Demonstrates correct Warm-up/exercise Cool-Down (S3) if = 2.5 METs, Verbalizes symptoms of exercise intolerance by Session 3 (S3), Demonstrate safe equipment use (S3) & follows exercise prescrition (6) and Other: See below Intervention & Plan Plan/Intervention: Instruct warm-up & cool-down if exercising at > 2 METs, Instruct on symptoms of exercise intolerance & actions to take, Instruct & monitor on saf, Assess intial functional capacity & safety risk and Other See below 30-day Reassessments 30 day Reassessments:: Progressing Reassessment Notes & Comments:: Cool down explained and demonstrated to pt. Pt is able to return demonstration. Exercise - 90-day Assessment Physician Prescribed Exercise Modalities: SciFit Stepper and SciFit Lateral [place] Exercise - Final/Discharge Physician Prescribed Exercise Modalities: SciFit Stepper and SciFit Lateral Protective Services Case Worker Nutrition - 30-Day Assessment Weight Mgt (Other Care) Height: 6 ft 2 in Weight:: 161 lb 8 oz BMI: 20.7 Nutrition - 60-Day Assessment Program Goals Nutrition Program Goals Patient has diagnosis of Hyperlipidemia (ICD E78)?: Yes Visit Date of Eval: 06/29/24 Session #:: 9 Cholesterol/Lipids (Other Core Measures) Determine presence & major risk factors that modify LDL goal: Cigarette smoking, Hypertension or hypertensive medication, Low HDL cholesterol <40 mg/dL*, Family history of premature CHD in Male < 55 years: female <65 yearsFa and Age men > 45 years; women >/= 55 years Outcomes/Goals: Pt IDs own risk factors & lifestyle modifications by Session 10, Verbalizes symptoms of angina & response by session 3., Pt independently manages and Other Additional Outcomes/Goals: Intervention/Plan: Advocate for lipid panel cholesterol medication if applicable, Instruct on personal lipid levels & lipid goals/NCEP guidelines, Instruct on cholesterol and Other additional plan/int Referral to dietitian:: No (declines) 30-day Reassessments:: Progressing Reassessment Notes & Comments:: Risk factors discussed with pt. Pt understand his risk factors and how to minimize them. Diabetes (Other Core Measures) Diabetes Type: Not Applicable Weight Mgt (Other Care) Height: 6 ft 2 in Weight:: 161 lb 8 oz BMI: 20.7 Diagnosis Overweight/Obesity BMI> 30% ICD-10 E66: No Diagnosis High BMI/Morbid Obesity BMI> 35% ICD-10 Z68: No Outcomes/Goals: Pt sets, maintains & shows weight loss goal & trend during rehab and Other additional outcomes/goals Intervention/Plan: Instruct on ideal BMI & set weight loss goal w/patient, Assist pt to ID & incorporate diet changes for weight loss by S9, Refer to Structured Weight Loss program as appropriate, Encourage goal of using 250-300dcal per session for weight loss and Other additional plan/interventions 30 day Reassessments:: Met Reassessment Notes & Comments:: Pt is at a healthy weight. Pt understands the benefits of a heart healthy diet. Healthy Eating Habits Will attend diet classes:: Yes Outcomes/Goals:: Consume diet rich in vegs,fruits,whole grain/high fiber,fish,lean meat, Limit sat/trans fats,cholesterol & added salts & sugars and Other additional outcome/goals: Intervention/Plan:: Assess current eating habits and Other Additional plan/interventions 30-day Reassessments:: Progressing Reassessment Notes & Comments:: Pt is scheduled to attend nutrition class. Education Gave educational materials for:: Signs & symptoms of hypoglycemia, Signs & symptoms of hyperglycemia, Relate diabetes to coronary artery disease and Healthy eating Core - Final Assessment Tobacco Use Years Smokin Hypertension Resting Blood Pressure:: 128/78 [place] [employer] Hypertension Guidelines Core - 60-Day Assessment Visit Date of Eval: 06/29/24 Session #:: 9 Medication Compliance Preventative Medication(s):: Statin/lipid and Eliquis H/O mental health issues: depression, anxiety, or addiction?: No Doesn?t believe in the benefits of treatment?: No Believes medications are unnecessary or harmful?: No Has a concern about medication side effects?: No Expresses concern over the cost of medications?: No Outcomes/Goals: Verbalizes medications,desired effect & common side effects @ DC, Pt self-reports following medication regimen, Keeps card in wallet w/medications listed by DC and Other additional outcome/goals: Interventions/plans: Instruct on medication effects & side effects, Review medication list w/patient every two weeks, Instruct importance of taking meds as ordered & assist problem solving and Other additional 30-day Reassessments:: Progressing Reassessment Notes & Comments:: The importance of taking meds as prescribed by physician explained to pt. Pt demonstrates understanding. Pt has family members to assist. Tobacco Use Tobacco Use: Non-smoker How long ago did you quit using tobacco products?: Greater than or equal to 6 months ago Years Smokin Outcomes/Goals: Smoking cessation achieved or maintained by discharge, Identify aids/strategies for achieving smoking cessation by session 6 and Other additional outcome/goals Interventions/plan: Instruct on effects of smoking & provide smoking cessation resource, Assist pt to set quit date & provide encouragement, Assist pt to develop strategies to achieve/maintain quit date, Assist pt w/nicotine replacement & medication for cessation success and Other additional plan/interventions 30-day Reassessments:: Met Reassessment Notes & Comments:: Pt has stopped smoking. Pt will attend smoking class. Hypertension Hypertension Diagnosis:: Hypertension ICD-10 I10 Resting Blood Pressure:: 134/80 Resting Blood Pressure:: 128/78 [place] [employer] Hypertension Guidelines Peak Exercise Blood Pressure:: 160/90 Outcomes/Goals: Able to verbalize/achieve optimal blood pressure <130/80, Incorporates diet changes & exercise for blood pressure control by DC and Other additional outcomes/goals Interventions/plan: Instruct on optimal blood pressure, hypertension & medications, Instruct on effects of sodium, alcohol, stress, exercise &hypertension and Other additional plan/interventions 30 day Reassessments:: Progressing Reassessment Notes & Comments:: Pt's BP's a slightly elevated. Low sodium diet encouraged. Will continue to monitor and send report to physician if necessary. Tobacco Cessation Referral Smoking Cessation Referral:: No Individual Education/Counseling:: No Education Schedule Given:: Yes Psychosocial - 30-Day Assess Target Goals Target Goals Referral to Behavioral Health PS - Interventions: Yes: Attend Stress Management Classes Outcomes/Goals: See list Psychosocial Outcomes/Goals:: ID's personal stressors & 2 strategies to manage stress by discharge and Other Additional outcome/goals: Psychosocial - 60-Day Assess VIsit Date of Eval: 06/29/24 Session #:: 9 History of previous Mental disease:: No Target Goals Target Goals Psychosocial Test Tool Used:: [employer] QOL Cardiac and PHQ-9 Questionnaire phq-9 Severity Referral to Behavioral Health PS - Interventions: Yes: Attend Stress Management Classes Outcomes/Goals: See list Psychosocial Outcomes/Goals:: ID's personal stressors & 2 strategies to manage stress by discharge and Other Additional outcome/goals: Intervention/Plan: See List Interventions/Plan:: Assess stressors,coping strategies & signs of derpression on admission, Instruct/assist pt to develop coping & personal stress Mgt strategies, Refer to Behavioral Health if appropriate, Refer to Physician if appropriate, Instruct patient to recognize signs & symptoms of depression, Instruct patient to recog and Other additional plan/intervention 30-day Reassessments: 30 day Reassessments:: Met Reassessment Notes & Comments:: Pt denies any psychosocial issues at this time. Psychosocial - 90-Day Assess Target Goals Target Goals Referral to Behavioral Health PS - Interventions: Yes: Attend Stress Management Classes Psychosocial - Final Assessmen Target Goals Target Goals Referral to Behavioral Health PS - Interventions: Yes: Attend Stress Management Classes Nutrition - 90-Day Assessment Weight Mgt (Other Care) Height: 6 ft 2 in Weight:: 161 lb 8 oz BMI: 20.7 Nutrition - Final Assessment Weight Mgt (Other Care) Height: 6 ft 2 in Weight:: 161 lb 8 oz BMI: 20.7
[2024-06-29 08:45] VITALS: BP 134/80
[2024-06-29 09:00] VITALS: BP 128/78; BP 134/80; BMI 20.7
== END 2024-07-19 23:59 ==
LOC: CR 13:00
PROVIDERS: PCP Internal Medicine; Referring Provider Internal Medicine Cardiovascular Disease; Visit Provider Internal Medicine Cardiovascular Disease
DX: Z95.1 Presence of aortocoronary bypass graft (principal); Z86.79 Personal history of other diseases of the circulatory system; I25.10 Atherosclerotic heart disease of native coronary artery without angina pectoris; I48.0 Paroxysmal atrial fibrillation; E78.2 Mixed hyperlipidemia; I10 Essential (primary) hypertension; Z95.0 Presence of cardiac pacemaker
CPT/HCPCS: 93798

== ENCOUNTER 2024-08-19 13:00 | Outpatient (RCR) | payer MEDICARE, SELFPAY ==
[2024-06-29 09:00] VITALS: BMI 20.7
[2024-07-20 00:35] VITALS: BP 128/78; BP 134/80; BP 137/79
--- NOTE | 2024-07-29 07:10 | PCM.CR.ITP ---
Exercise - Initial Assessment Physician Prescribed Exercise Modalities: SciFit Stepper and SciFit Lateral [place] Nutrition - Initial Assessment Weight Mgt (Other Care) Height: 6 ft 2 in Weight:: 166 lb BMI: 21.3 Psychosocial - Initial Assess Target Goals Target Goals Referral to Behavioral Health PS - Interventions: Yes: Attend Stress Management Classes Patient Health Questionnaire PHQ-9 Screening 90-Day Re-eval Assessment: 1. Little interest or pleasure in doing things: More than half the days 2. Feeling down, depressed, or hopeless: Not at all 3. Trouble falling or staying asleep, or sleeping too much: Nearly every day 4. Feeling tired or having little energy: More than half the days 5. Poor appetite or overeating: Not at all 6. Feeling bad about yourself -- or that you are a failure or have let yourself or your family down: Not at all 7. Trouble concentrating on things, such as reading the newspaper or watching television: Not at all 8. Moving or speaking so slowly that other people could have noticed. Or the opposite - being so fidgety or restless that you have been moving around a lot more than usual: Not at all 9. Thoughts that you would be better off , or of hurting yourself in some way: Not at all How difficult have these problems made it for you to do your work, take care of things at home, or get along with other people?: Somewhat difficult Total Score: 7 Self-Efficacy 6-Item Scale 90-Day Re-eval Assessment: We would like to know how confident you are in doing certain activities. Please select your confidence level for: Fatigue Select Number: 8 Physical Discomfort or Pain Select Number: 8 Emotional Distress Select Number: 8 Other Symptoms or Health Problems Select Number: 3 Different Tasks and Activities Select Number: 3 Medication Select Number: 5 Total Score:: 5 Nutrition Survey Nutrition Survey Instructions Scoring Instructions Exercise - 30-day Assessment Physician Prescribed Exercise Modalities: SciFit Stepper and SciFit Lateral Prior Authorization Nurse Exercise - 60-day Assessment Physician Prescribed Exercise Modalities: SciFit Stepper and SciFit Lateral [place] Exercise - 90-day Assessment Visit Date of Eval: 07/29/24 Session #:: 17 Physician Prescribed Exercise Modalities: SciFit Stepper and SciFit Lateral Prior Authorization Nurse Frequency: 3x/week for 12 weeks [36 sessions] Intensity: 60-80% of age predicted maximum heart rate reserve Duration: 30 - 45 minutes Current METSs:: 3.5 Target Heart Rate:: 83-107 Current RPE:: 12-13 Maximum Excercise HR:: 131 Resting Blood Pressure: 128/72 Maximum Exercise Blood Pressure: 128/72 EKG Type: Afib with [place] PVC Outcomes & Goals Goals:: Verbalizes understanding of THR, RPE & goal METS by session 6, Documents in home exercise log/reports 30 min aerobic 5 day/wk by DC, Demonstrates accurate pulse taking by DC and Other additional outcome/goals: see below Intervention & Plan Exercise Program Goals: Instruct on personal THR & RPE, Instruct on MET level & personal MET goal, Show patient to take own pulse /validate performance until accurate, Instruct on home exercise and Other additional plan/int Physical Activity Home Exercise Physical Activity - Home Exercise: Safe Exercise, Warm-up, Self-monitoring, Cool-Down, Home Exercise > 30 min Daily and Sitting Time <3 hours/daily Outcomes & Goals Outcomes/Goals: Demonstrates correct Warm-up/exercise Cool-Down (S3) if = 2.5 METs, Verbalizes symptoms of exercise intolerance by Session 3 (S3), Demonstrate safe equipment use (S3) & follows exercise prescrition (6) and Other: See below Intervention & Plan Plan/Intervention: Instruct warm-up & cool-down if exercising at > 2 METs, Instruct on symptoms of exercise intolerance & actions to take, Instruct & monitor on saf, Assess intial functional capacity & safety risk and Other See below 30-day Reassessments 30 day Reassessments:: Progressing Reassessment Notes & Comments:: Target HR explained in exercise class. Pt demonstrates understanding Exercise - Final/Discharge Physician Prescribed Exercise Modalities: SciFit Stepper and SciFit Lateral [place] Nutrition - 30-Day Assessment Weight Mgt (Other Care) Height: 6 ft 2 in Weight:: 166 lb BMI: 21.3 Nutrition - 60-Day Assessment Weight Mgt (Other Care) Height: 6 ft 2 in Weight:: 166 lb BMI: 21.3 Core - 30-Day Assessment Hypertension [place] [employer] Hypertension Guidelines Reassessment Notes & Comments:: Pt's BP's are improveing. Low sodium diet encouraged. Core - Final Assessment Hypertension [place] [employer] Hypertension Guidelines Reassessment Notes & Comments:: Pt's BP's are improveing. Low sodium diet encouraged. Core - 90 Day Assessment Visit Date of Eval: 07/29/24 Session #:: 17 Medication Compliance Preventative Medication(s):: Statin/lipid and Eliquis H/O mental health issues: depression, anxiety, or addiction?: No Doesn?t believe in the benefits of treatment?: No Believes medications are unnecessary or harmful?: No Has a concern about medication side effects?: No Expresses concern over the cost of medications?: No Outcomes/Goals: Verbalizes medications,desired effect & common side effects @ DC, Pt self-reports following medication regimen, Keeps card in wallet w/medications listed by DC and Other additional outcome/goals: Interventions/plans: Instruct on medication effects & side effects, Review medication list w/patient every two weeks, Instruct importance of taking meds as ordered & assist problem solving and Other additional Tobacco Use Tobacco Use: Non-smoker Outcomes/Goals: Smoking cessation achieved or maintained by discharge, Identify aids/strategies for achieving smoking cessation by session 6 and Other additional outcome/goals Interventions/plan: Instruct on effects of smoking & provide smoking cessation resource, Assist pt to set quit date & provide encouragement, Assist pt to develop strategies to achieve/maintain quit date, Assist pt w/nicotine replacement & medication for cessation success and Other additional plan/interventions 30-day Reassessments:: Met Reassessment Notes & Comments:: pt has stopped smoking. Pt to attend smoking class Hypertension Hypertension Diagnosis:: Hypertension ICD-10 I10 Resting Blood Pressure:: 128/72 [place] [employer] Hypertension Guidelines Peak Exercise Blood Pressure:: 128/72 Outcomes/Goals: Able to verbalize/achieve optimal blood pressure <130/80, Incorporates diet changes & exercise for blood pressure control by DC and Other additional outcomes/goals Interventions/plan: Instruct on optimal blood pressure, hypertension & medications, Instruct on effects of sodium, alcohol, stress, exercise &hypertension and Other additional plan/interventions 30 day Reassessments:: Progressing Reassessment Notes & Comments:: Pt's BP's are improveing. Low sodium diet encouraged. Tobacco Cessation Referral Smoking Cessation Referral:: No Individual Education/Counseling:: No Education Schedule Given:: Yes Psychosocial - 30-Day Assess Target Goals Target Goals Referral to Behavioral Health PS - Interventions: Yes: Attend Stress Management Classes Psychosocial - 60-Day Assess Target Goals Target Goals Referral to Behavioral Health PS - Interventions: Yes: Attend Stress Management Classes Psychosocial - 90-Day Assess VIsit Date of Eval: 07/29/24 Session #:: 17 History of previous Mental disease:: No Target Goals Target Goals Psychosocial Test Tool Used:: [employer] QOL Cardiac and PHQ-9 Questionnaire phq-9 Severity Referral to Behavioral Health PS - Interventions: Yes: Attend Stress Management Classes Outcomes/Goals: See list Psychosocial Outcomes/Goals:: ID's personal stressors & 2 strategies to manage stress by discharge and Other Additional outcome/goals: Intervention/Plan: See List Interventions/Plan:: Assess stressors,coping strategies & signs of derpression on admission, Instruct/assist pt to develop coping & personal stress Mgt strategies, Refer to Behavioral Health if appropriate, Refer to Physician if appropriate, Instruct patient to recognize signs & symptoms of depression, Instruct patient to recog and Other additional plan/intervention 30-day Reassessments: 30 day Reassessments:: Met Reassessment Notes & Comments:: Pt denies any psychosocial issues at this time. Psychosocial - Final Assessmen Target Goals Target Goals Referral to Behavioral Health PS - Interventions: Yes: Attend Stress Management Classes Nutrition - 90-Day Assessment Visit Date of Eval: 07/29/24 Session #:: 17 Cholesterol/Lipids (Other Core Measures) Determine presence & major risk factors that modify LDL goal: Cigarette smoking, Hypertension or hypertensive medication, Low HDL cholesterol <40 mg/dL*, Family history of premature CHD in Male < 55 years: female <65 yearsFa and Age men > 45 years; women >/= 55 years Outcomes/Goals: Pt IDs own risk factors & lifestyle modifications by Session 10, Verbalizes symptoms of angina & response by session 3., Pt independently manages and Other Additional Outcomes/Goals: Intervention/Plan: Advocate for lipid panel cholesterol medication if applicable, Instruct on personal lipid levels & lipid goals/NCEP guidelines, Instruct on cholesterol and Other additional plan/int Referral to dietitian:: No (declines) Diabetes (Other Core Measures) Diabetes Type: Not Applicable Weight Mgt (Other Care) Height: 6 ft 2 in Weight:: 166 lb BMI: 21.3 Diagnosis Overweight/Obesity BMI> 30% ICD-10 E66: No Diagnosis High BMI/Morbid Obesity BMI> 35% ICD-10 Z68: No Outcomes/Goals: Pt sets, maintains & shows weight loss goal & trend during rehab and Other additional outcomes/goals Intervention/Plan: Instruct on ideal BMI & set weight loss goal w/patient, Assist pt to ID & incorporate diet changes for weight loss by S9, Refer to Structured Weight Loss program as appropriate, Encourage goal of using 250-300dcal per session for weight loss and Other additional plan/interventions Healthy Eating Habits Will attend diet classes:: Yes Outcomes/Goals:: Consume diet rich in vegs,fruits,whole grain/high fiber,fish,lean meat, Limit sat/trans fats,cholesterol & added salts & sugars and Other additional outcome/goals: Intervention/Plan:: Assess current eating habits and Other Additional plan/interventions 30-day Reassessments:: Met Reassessment Notes & Comments:: Pt has attended nutrition class. Pt understands the benefits of a heart healthy low sodium diet. Pt encouraged to keep a food log and bring in for review. Education Gave educational materials for:: Signs & symptoms of hypoglycemia, Signs & symptoms of hyperglycemia, Relate diabetes to coronary artery disease and Healthy eating Nutrition - Final Assessment Weight Mgt (Other Care) Height: 6 ft 2 in Weight:: 166 lb BMI: 21.3
[2024-07-29 07:21] VITALS: BP 128/72; BMI 21.3
== END 2024-08-19 23:59 ==
LOC: CR 13:00
PROVIDERS: PCP Internal Medicine; Referring Provider Internal Medicine Cardiovascular Disease; Visit Provider Internal Medicine Cardiovascular Disease
DX: Z95.1 Presence of aortocoronary bypass graft (principal); Z86.79 Personal history of other diseases of the circulatory system; I25.10 Atherosclerotic heart disease of native coronary artery without angina pectoris; I48.0 Paroxysmal atrial fibrillation; E78.2 Mixed hyperlipidemia; I10 Essential (primary) hypertension; Z95.0 Presence of cardiac pacemaker

== ENCOUNTER → 2024-08-31 | Outpatient (CLI) | payer MEDICARE, SELFPAY ==
[2024-08-22 08:53] VITALS: BMI 21.4
[2024-08-31 14:59] LABS: Absolute Lymphocyte Count 0.91 X10^3/uL (0.83-4.51); Absolute Neutrophil Count 5.4 X10^3/uL (2.0-7.7); Basophil# 0.08 X10^3/uL; Basophil% 1.1 % (0-1); Eosinophil# 0.24 X10^3/uL; Eosinophils% 3.3 % (0-5); Hematocrit 38.4 % (40-54); Hemoglobin 11.8 g/dL (13.0-16.5); Lymphocyte # 0.91 X10^3/ul (0.83-4.51); Lymphocyte % 12.6 % (19-41); Mean Corp Hgb Conc 30.7 g/dL (32-36); Mean Corpuscular Hgb 28.6 pg (27.0-32.0); Mean Platelet Vol. 10.5 fl (6.2-12.0); Monocyte# 0.56 X10^3/uL; Monocyte% 7.8 % (0-10); NRBC Flagged by Analyzer 0 % (0-5); Neutrophil # 5.41 X10^3/uL (2.7-7.7); Neutrophil % 74.9 % (47-70); Platelet Count 214 K/mm3 (150-450); RBC Distribution Width CV 16.9 % (11.6-14.6); RBC Distribution Width SD 57.6 fl (35.1-43.9); Red Blood Count 4.13 M/mm3 (4.6-6.2); White Blood Count 7.2 K/mm3 (4.4-11.0)
[2024-08-31 15:34] LABS: Vitamin B12 750 pg/mL (211-911); Vitamin D,25 Hydroxy 38.2 ng/mL
[2024-08-31 16:13] LABS: AST(SGOT) 19 U/L (15-37); Alanine Aminotransfer ALT/SGPT 19 U/L (16-61); Albumin, Serum 3.5 g/dL (3.2-5.0); Alkaline Phosphatase 102 U/L (45-117); Anion Gap 5 (5-15); BUN 18 mg/dL (7-18); BUN/Creat Ratio 14.1 RATIO (10-20); Calcium,Total 9.5 mg/dL (8.5-10.1); Chloride 108 mmol/L (98-107); Cholesterol 97 mg/dL (200); Creatinine, Serum 1.28 mg/dL (0.70-1.30); EST Glomerular Filtration Rate 58 mL/min (>60); Est Glom Filt Rate - Afr Amer 70 mL/min (>60); Globulin 3.5 g/dL (2.2-4.2); Glucose 97 mg/dL (74-106); High Density Lipoprotein 48 mg/dL; PSA,Total - Annual Screen 1.81 ng/mL (0.00-4.00); Potassium 3.8 mmol/L (3.5-5.1); Sodium Level 142 mmol/L (136-145); Triglycerides 102 mg/dL; Very Low Density Lipoprotein 20 mg/dL (5-40)
[2024-09-01 13:41] LABS: Free T3 2.1 pg/mL (2.18-3.98); T4 Free Direct 1.05 ng/dL (0.76-1.46)
== END | disposition home or self-care (01) ==
LOC: LAB 14:04
PROVIDERS: PCP Internal Medicine; Referring Provider Internal Medicine; Visit Provider Internal Medicine
DX: I25.10 Atherosclerotic heart disease of native coronary artery without angina pectoris (principal); F17.210 Nicotine dependence, cigarettes, uncomplicated; I10 Essential (primary) hypertension; E03.9 Hypothyroidism, unspecified; E55.9 Vitamin D deficiency, unspecified; Z13.220 Encounter for screening for lipoid disorders; Z12.5 Encounter for screening for malignant neoplasm of prostate
CPT/HCPCS: 36415; 80053; 80061; 82306; 82607; 84153; 84439; 84443; 84481; 85025; G0103

== ENCOUNTER 2024-09-16 13:00 | Outpatient (RCR) | payer MEDICARE, SELFPAY ==
[2024-07-29 07:21] VITALS: BMI 21.3
[2024-08-20 02:06] VITALS: BP 128/72; BP 128/78; BP 134/80; BP 137/79
--- NOTE | 2024-08-22 08:37 | CR.ITP_ITS ---
Exercise - Initial Assessment Physician Prescribed Exercise Modalities: SciFit Stepper and SciFit Lateral Physicians Assistant Nutrition - Initial Assessment Program Goals Nutrition Program Goals Patient has diagnosis of Hyperlipidemia (ICD E78)?: Yes Weight Mgt (Other Care) Height: 6 ft 2 in Weight:: 166 lb 8 oz BMI: 21.4 Core - Initial Assessment Hypertension Resting Blood Pressure:: 122/78 [place] [employer] Hypertension Guidelines Psychosocial - Initial Assess Target Goals Target Goals Referral to Behavioral Health PS - Interventions: Yes: Attend Stress Management Classes Patient Health Questionnaire PHQ-9 Screening Discharge Assessment: 1. Little interest or pleasure in doing things: More than half the days 2. Feeling down, depressed, or hopeless: Not at all 3. Trouble falling or staying asleep, or sleeping too much: Nearly every day 4. Feeling tired or having little energy: More than half the days 5. Poor appetite or overeating: Not at all 6. Feeling bad about yourself -- or that you are a failure or have let yourself or your family down: Not at all 7. Trouble concentrating on things, such as reading the newspaper or watching television: Not at all 8. Moving or speaking so slowly that other people could have noticed. Or the opposite - being so fidgety or restless that you have been moving around a lot more than usual: Not at all 9. Thoughts that you would be better off , or of hurting yourself in some way: Not at all How difficult have these problems made it for you to do your work, take care of things at home, or get along with other people?: Somewhat difficult Total Score: 7 Self-Efficacy 6-Item Scale Discharge Assessment: We would like to know how confident you are in doing certain activities. Please select your confidence level for: Fatigue Select Number: 8 Physical Discomfort or Pain Select Number: 8 Emotional Distress Select Number: 8 Other Symptoms or Health Problems Select Number: 3 Different Tasks and Activities Select Number: 3 Medication Select Number: 5 Total Score:: 5 Nutrition Survey Nutrition Survey Instructions Scoring Instructions Exercise - 30-day Assessment Physician Prescribed Exercise Modalities: SciFit Stepper and SciFit Lateral Physicians Assistant Exercise - 60-day Assessment Physician Prescribed Exercise Modalities: SciFit Stepper and SciFit Lateral Physicians Assistant Exercise - 90-day Assessment Physician Prescribed Exercise Modalities: SciFit Stepper and SciFit Lateral Physicians Assistant Exercise - Final/Discharge Visit Date of Eval: 08/22/24 Session #:: 22 Physician Prescribed Exercise Modalities: SciFit Stepper and SciFit Lateral Physicians Assistant Frequency: 3x/week for 12 weeks [36 sessions] Intensity: 60-80% of age predicted maximum heart rate reserve Duration: 30 - 45 minutes Current METSs:: 3.5 Target Heart Rate:: 85-114 Current RPE:: 12-13 Maximum Heart Rate:: 134 Resting Blood Pressure: 122/78 Maximum Exercise Blood Pressure: 140/70 EKG Type: A-fib with occas PVC Outcomes & Goals Goals:: Verbalizes understanding of THR, RPE & goal METS by session 6, Documents in home exercise log/reports 30 min aerobic 5 day/wk by DC, Demonstrates accurate pulse taking by DC and Other additional outcome/goals: see below Intervention & Plan Exercise Program Goals: Instruct on personal THR & RPE, Instruct on MET level & personal MET goal, Show patient to take own pulse /validate performance until accurate, Instruct on home exercise and Other additional plan/int Physical Activity Home Exercise Physical Activity - Home Exercise: Safe Exercise, Warm-up, Self-monitoring, Cool-Down, Home Exercise > 30 min Daily and Sitting Time <3 hours/daily Outcomes & Goals Outcomes/Goals: Demonstrates correct Warm-up/exercise Cool-Down (S3) if = 2.5 METs, Verbalizes symptoms of exercise intolerance by Session 3 (S3), Demonstrate safe equipment use (S3) & follows exercise prescrition (6) and Other: See below Intervention & Plan Plan/Intervention: Instruct warm-up & cool-down if exercising at > 2 METs, Instruct on symptoms of exercise intolerance & actions to take, Instruct & mo nitor on saf, Assess intial functional capacity & safety risk and Other See below 30-day Reassessments 30 day Reassessments:: Progressing Reassessment Notes & Comments:: Pt has been able to increase his exercise intensity and duration. Pt has increased his strength and endurance. Upon discharge pt will be given his exercise prescription. Nutrition - 30-Day Assessment Weight Mgt (Other Care) Height: 6 ft 2 in Weight:: 166 lb 8 oz BMI: 21.4 Nutrition - 60-Day Assessment Weight Mgt (Other Care) Height: 6 ft 2 in Weight:: 166 lb 8 oz BMI: 21.4 Core - 30-Day Assessment Hypertension [place] [employer] Hypertension Guidelines Reassessment Notes & Comments:: Pt's BP's are within AHA normal limits on most days. Core - Final Assessment Visit Date of Eval: 08/22/24 Session #:: 22 Medication Compliance Preventative Medication(s):: Statin/lipid and Eliquis Doesn?t believe in the benefits of treatment?: No Believes medications are unnecessary or harmful?: No Has a concern about medication side effects?: No Expresses concern over the cost of medications?: No Outcomes/Goals: Verbalizes medications,desired effect & common side effects @ DC, Pt self-reports following medication regimen, Keeps card in wallet w/medications listed by DC and Other additional outcome/goals: Interventions/plans: Instruct on medication effects & side effects, Review medication list w/patient every two weeks, Instruct importance of taking meds as ordered & assist problem solving and Other additional Tobacco Use Tobacco Use: Non-smoker Outcomes/Goals: Smoking cessation achieved or maintained by discharge, Identify aids/strategies for achieving smoking cessation by session 6 and Other additional outcome/goals 30 day Reassessments:: Met Reassessment Notes & Comments:: Pt has stopped smoking. Hypertension Hypertension Diagnosis:: Hypertension ICD-10 I10 Resting Blood Pressure:: 122/78 [place] [employer] Hypertension Guidelines Peak Exercise Blood Pressure:: 140/70 Outcomes/Goals: Able to verbalize/achieve optimal blood pressure <130/80, Incorporates diet changes & exercise for blood pressure control by DC and Other additional outcomes/goals Interventions/plan: Instruct on optimal blood pressure, hypertension & medications, Instruct on effects of sodium, alcohol, stress, exercise &hypertension and Other additional plan/interventions 30 day Reassessments:: Met Reassessment Notes & Comments:: Pt's BP's are within AHA normal limits on most days. Tobacco Cessation Referral Smoking Cessation Referral:: No Individual Education/Counseling:: No Education Schedule Given:: Yes Core - 90 Day Assessment Hypertension [place] [employer] Hypertension Guidelines Reassessment Notes & Comments:: Pt's BP's are within AHA normal limits on most days. Core - 60-Day Assessment Tobacco Use Reassessment Notes & Comments:: Pt has stopped smoking. Hypertension Resting Blood Pressure:: 122/78 [place] [employer] Hypertension Guidelines Psychosocial - 30-Day Assess Target Goals Target Goals Referral to Behavioral Health PS - Interventions: Yes: Attend Stress Management Classes Psychosocial - 60-Day Assess Target Goals Target Goals Referral to Behavioral Health PS - Interventions: Yes: Attend Stress Management Classes Psychosocial - 90-Day Assess Target Goals Target Goals Referral to Behavioral Health PS - Interventions: Yes: Attend Stress Management Classes Psychosocial - Final Assessmen VIsit Date of Eval: 08/22/24 Session #:: 22 History of previous Mental disease:: No Target Goals Target Goals Psychosocial Test Tool Used:: [employer] QOL Cardiac and PHQ-9 Questionnaire phq-9 Severity Referral to Behavioral Health PS - Interventions: Yes: Attend Stress Management Classes Outcomes/Goals: See list Psychosocial Outcomes/Goals:: ID's personal stressors & 2 strategies to manage stress by discharge and Other Additional outcome/goals: 30-day Reassessments: 30 day Reassessments:: Met Reassessment Notes & Comments:: Pt denies any psychosocial issues at this time. Nutrition - 90-Day Assessment Program Goals Nutrition Program Goals Patient has diagnosis of Hyperlipidemia (ICD E78)?: Yes Visit Date of Eval: 08/22/24 Session #:: 22 Cholesterol/Lipids (Other Core Measures) Determine presence & major risk factors that modify LDL goal: Cigarette smoking, Hypertension or hypertensive medication, Low HDL cholesterol <40 mg/dL*, Family history of premature CHD in Male < 55 years: female <65 yearsFa and Age men > 45 years; women >/= 55 years Outcomes/Goals: Pt IDs own risk factors & lifestyle modifications by Session 10, Verbalizes symptoms of angina & response by session 3., Pt independently manages and Other Additional Outcomes/Goals: Intervention/Plan: Advocate for lipid panel cholesterol medication if applicable, Instruct on personal lipid levels & lipid goals/NCEP guidelines, Instruct on cholesterol and Other additional plan/int Diabetes (Other Core Measures) Diabetes Type: Not Applicable Weight Mgt (Other Care) Height: 6 ft 2 in Weight:: 166 lb 8 oz BMI: 21.4 Diagnosis Overweight/Obesity BMI> 30% ICD-10 E66: No Diagnosis High BMI/Morbid Obesity BMI> 35% ICD-10 Z68: No Outcomes/Goals: Pt sets, maintains & shows weight loss goal & trend during rehab and Other additional outcomes/goals Intervention/Plan: Instruct on ideal BMI & set weight loss goal w/patient, Assist pt to ID & incorporate diet changes for weight loss by S9, Refer to Structured Weight Loss program as appropriate, Encourage goal of using 250- 300dcal per session for weight loss and Other additional plan/interventions 30 day Reassessments:: Met Reassessment Notes & Comments:: Pt is at a healthy weight. Pt understands the benefits of heart healthy low sodium diet. Healthy Eating Habits Will attend diet classes:: Yes Outcomes/Goals:: Consume diet rich in vegs,fruits,whole grain/high fiber,fish,lean meat, Limit sat/trans fats,cholesterol & added salts & sugars and Other additional outcome/goals: Intervention/Plan:: Assess current eating habits and Other Additional plan/interventions 30-day Reassessments:: Met Education Gave educational materials for:: Signs & symptoms of hypoglycemia, Signs & symptoms of hyperglycemia, Relate diabetes to coronary artery disease and Healthy eating Nutrition - Final Assessment Program Goals Patient has diagnosis of Hyperlipidemia (ICD E78)?: Yes Visit Date of Assessment:: 08/22/24 Session #:: 22 Cholesterol/Lipids (Other Core Measures) Determine presence & major risk factors that modify LDL goal: Cigarette smoking, Hypertension or hypertensive medication, Low HDL cholesterol <40 mg/dL*, Family history of premature CHD in Male < 55 years: female <65 yearsFa and Age men > 45 years; women >/= 55 years Outcomes/Goals: Pt IDs own risk factors & lifestyle modifications by Session 10, Verbalizes symptoms of angina & response by session 3., Pt independently manages and Other Additional Outcomes/Goals: Intervention/Plan: Advocate for lipid panel cholesterol medication if applicable, Instruct on personal lipid levels & lipid goals/NCEP guidelines, Instruct on cholesterol and Other additional plan/int Diabetes (Other Core Measures) Diabetes Type: Not Applicable Weight Mgt (Other Care) Height: 6 ft 2 in Weight:: 166 lb 8 oz BMI: 21.4 Diagnosis Overweight/Obesity BMI> 30% ICD-10 E66: No Diagnosis High BMI/Morbid Obesity BMI> 35% ICD-10 Z68: No Outcomes/Goals: Pt sets, maintains & shows weight loss goal & trend during rehab and Other additional outcomes/goals Intervention/Plan: Instruct on ideal BMI & set weight loss goal w/patient, Assist pt to ID & incorporate diet changes for weight loss by S9, Refer to Structured Weight Loss program as appropriate, Encourage goal of using 250- 300dcal per session for weight loss and Other additional plan/interventions 30 day Reassessments:: Met Reassessment Notes & Comments:: Pt is at a healthy weight. Pt understands the benefits of heart healthy low sodium diet. Healthy Eating Habits Will attend diet classes:: Yes Outcomes/Goals:: Consume diet rich in vegs,fruits,whole grain/high fiber,fish,lean meat, Limit sat/trans fats,cholesterol & added salts & sugars and Other additional outcome/goals: Intervention/Plan:: Assess current eating habits and Other Additional plan/interventions 30-day Reassessments:: Met Education Gave educational materials for:: Signs & symptoms of hypoglycemia, Signs & symptoms of hyperglycemia, Relate diabetes to coronary artery disease and Healthy eating
[2024-08-22 08:53] VITALS: BP 122/78
[2024-09-15 08:31] VITALS: BMI 21.4
--- NOTE | 2024-09-15 09:01 | CR.ITP_ITS ---
Exercise - Initial Assessment Physician Prescribed Exercise Modalities: SciFit Stepper Nutrition - Initial Assessment Program Goals Nutrition Program Goals Patient has diagnosis of Hyperlipidemia (ICD E78)?: Yes Weight Mgt (Other Care) Height: 6 ft 2 in Weight:: 166 lb BMI: 21.3 Core - Initial Assessment Hypertension Resting Blood Pressure:: 128/64 [place] [employer] Hypertension Guidelines Psychosocial - Initial Assess Target Goals Target Goals Referral to Behavioral Health PS - Interventions: Yes: Attend Stress Management Classes Patient Health Questionnaire PHQ-9 Screening Discharge Assessment: 1. Little interest or pleasure in doing things: More than half the days 2. Feeling down, depressed, or hopeless: Not at all 3. Trouble falling or staying asleep, or sleeping too much: Nearly every day 4. Feeling tired or having little energy: More than half the days 5. Poor appetite or overeating: Not at all 6. Feeling bad about yourself -- or that you are a failure or have let yourself or your family down: Not at all 7. Trouble concentrating on things, such as reading the newspaper or watching television: Not at all 8. Moving or speaking so slowly that other people could have noticed. Or the opposite - being so fidgety or restless that you have been moving around a lot more than usual: Not at all 9. Thoughts that you would be better off , or of hurting yourself in some way: Not at all How difficult have these problems made it for you to do your work, take care of things at home, or get along with other people?: Somewhat difficult Total Score: 7 Self-Efficacy 6-Item Scale Discharge Assessment: We would like to know how confident you are in doing certain activities. Please select your confidence level for: Fatigue Select Number: 8 Physical Discomfort or Pain Select Number: 8 Emotional Distress Select Number: 3 Other Symptoms or Health Problems Select Number: 3 Different Tasks and Activities Select Number: 5 Medication Nutrition Survey Nutrition Survey Instructions Scoring Instructions Exercise - 30-day Assessment Physician Prescribed Exercise Modalities: SciFit Stepper Exercise - 60-day Assessment Physician Prescribed Exercise Modalities: SciFit Stepper Exercise - 90-day Assessment Physician Prescribed Exercise Modalities: SciFit Stepper Exercise - Final/Discharge Visit Date of Eval: 09/15/24 Session #:: 26 Physician Prescribed Exercise Modalities: SciFit Stepper Frequency: 3x/week for 12 weeks [36 sessions] Intensity: 60-80% of age predicted maximum heart rate reserve Duration: 30 - 45 minutes Current METSs:: 4.6 Target Heart Rate:: 85-114 Current RPE:: 12-13 Maximum Heart Rate:: 105 Resting Blood Pressure: 128/64 Maximum Exercise Blood Pressure: 148/82 EKG Type: A-fib with rare PVC's Outcomes & Goals Goals:: Verbalizes understanding of THR, RPE & goal METS by session 6, Documents in home exercise log/reports 30 min aerobic 5 day/wk by DC, Demonstrates accurate pulse taking by DC and Other additional outcome/goals: see below Intervention & Plan Exercise Program Goals: Instruct on personal THR & RPE, Instruct on MET level & personal MET goal, Show patient to take own pulse /validate performance until accurate, Instruct on home exercise and Other additional plan/int Physical Activity Home Exercise Physical Activity - Home Exercise: Safe Exercise, Warm-up, Self-monitoring, Cool-Down, Home Exercise > 30 min Daily and Sitting Time <3 hours/daily Outcomes & Goals Outcomes/Goals: Demonstrates correct Warm-up/exercise Cool-Down (S3) if = 2.5 METs, Verbalizes symptoms of exercise intolerance by Session 3 (S3), Demonstrate safe equipment use (S3) & follows exercise prescrition (6) and Other: See below Intervention & Plan Plan/Intervention: Instruct warm-up & cool-down if exercising at > 2 METs, Instruct on symptoms of exercise intolerance & actions to take, Instruct & monitor on saf, Assess intial functional capacity & safety risk and Other See below 30-day Reassessments 30 day Reassessments:: Met Reassessment Notes & Comments:: Pt has done very well. Pt understands exercise safety, exercise intensity, duration, and frequency. Nutrition - 30-Day Assessment Weight Mgt (Other Care) Height: 6 ft 2 in Weight:: 166 lb BMI: 21.3 Nutrition - 60-Day Assessment Weight Mgt (Other Care) Height: 6 ft 2 in Weight:: 166 lb BMI: 21.3 Core - 30-Day Assessment Hypertension [place] [employer] Hypertension Guidelines Reassessment Notes & Comments:: Pt's BP's are within AHA normal limits on most days. Core - Final Assessment Visit Date of Eval: 09/15/24 Session #:: 27 Medication Compliance Preventative Medication(s):: Statin/lipid and Eliquis H/O mental health issues: depression, anxiety, or addiction?: No Doesn?t believe in the benefits of treatment?: No Has a concern about medication side effects?: No Expresses concern over the cost of medications?: No Outcomes/Goals: Verbalizes medications,desired effect & common side effects @ DC, Pt self-reports following medication regimen, Keeps card in wallet w/medications listed by DC and Other additional outcome/goals: Interventions/plans: Instruct on medication effects & side effects, Review medication list w/patient every two weeks, Instruct importance of taking meds as ordered & assist problem solving and Other additional Tobacco Use Tobacco Use: Non-smoker Outcomes/Goals: Smoking cessation achieved or maintained by discharge, Identify aids/strategies for achieving smoking cessation by session 6 and Other additional outcome/goals Interventions/plan: Instruct on effects of smoking & provide smoking cessation resource, Assist pt to set quit date & provide encouragement, Assist pt to develop strategies to achieve/maintain quit date, Assist pt w/nicotine replacement & medication for cessation success and Other additional plan/interventions 30 day Reassessments:: Met Reassessment Notes & Comments:: Pt has stopped smoking. Hypertension Hypertension Diagnosis:: Hypertension ICD-10 I10 Resting Blood Pressure:: 128/64 [place] [employer] Hypertension Guidelines Peak Exercise Blood Pressure:: 148/82 Outcomes/Goals: Able to verbalize/achieve optimal blood pressure <130/80, Incorporates diet changes & exercise for blood pressure control by DC and Other additional outcomes/goals Interventions/plan: Instruct on optimal blood pressure, hypertension & medications, Instruct on effects of sodium, alcohol, stress, exercise &hypertension and Other additional plan/interventions 30 day Reassessments:: Met Reassessment Notes & Comments:: Pt's BP's are within AHA normal limits on most days. Tobacco Cessation Referral Smoking Cessation Referral:: No Individual Education/Counseling:: No Education Schedule Given:: Yes Core - 90 Day Assessment Hypertension [place] [employer] Hypertension Guidelines Reassessment Notes & Comments:: Pt's BP's are within AHA normal limits on most days. Core - 60-Day Assessment Tobacco Use Reassessment Notes & Comments:: Pt has stopped smoking. Hypertension Resting Blood Pressure:: 128/64 [place] [employer] Hypertension Guidelines Psychosocial - 30-Day Assess Target Goals Target Goals Referral to Behavioral Health PS - Interventions: Yes: Attend Stress Management Classes Psychosocial - 60-Day Assess Target Goals Target Goals Referral to Behavioral Health PS - Interventions: Yes: Attend Stress Management Classes Psychosocial - 90-Day Assess Target Goals Target Goals Referral to Behavioral Health PS - Interventions: Yes: Attend Stress Management Classes Psychosocial - Final Assessmen VIsit Date of Eval: 09/15/24 Session #:: 27 History of previous Mental disease:: No Target Goals Target Goals Psychosocial Test Tool Used:: [employer] QOL Cardiac and PHQ-9 Questionnaire phq-9 Severity Referral to Behavioral Health PS - Interventions: Yes: Attend Stress Management Classes Outcomes/Goals: See list Psychosocial Outcomes/Goals:: ID's personal stressors & 2 strategies to manage stress by discharge and Other Additional outcome/goals: Intervention/Plan: See List Interventions/Plan:: Assess stressors,coping strategies & signs of derpression on admission, Instruct/assist pt to develop coping & personal stress Mgt strategies, Refer to Behavioral Health if appropriate, Refer to Physician if appropriate, Instruct patient to recognize signs & symptoms of depression, Instruct patient to recog and Other additional plan/intervention 30-day Reassessments: 30 day Reassessments:: Met Reassessment Notes & Comments:: Pt denies any psychosocial issues at this time. Nutrition - 90-Day Assessment Weight Mgt (Other Care) Height: 6 ft 2 in Weight:: 166 lb BMI: 21.3 Nutrition - Final Assessment Program Goals Patient has diagnosis of Hyperlipidemia (ICD E78)?: Yes Visit Date of Assessment:: 09/15/24 Session #:: 27 Cholesterol/Lipids (Other Core Measures) Determine presence & major risk factors that modify LDL goal: Cigarette smoking, Hypertension or hypertensive medication, Low HDL cholesterol <40 mg/dL*, Family history of premature CHD in Male < 55 years: female <65 yearsFa and Age men > 45 years; women >/= 55 years Outcomes/Goals: Pt IDs own risk factors & lifestyle modifications by Session 10, Verbalizes symptoms of angina & response by session 3., Pt independently manages and Other Additional Outcomes/Goals: Intervention/Plan: Advocate for lipid panel cholesterol medication if applicable, Instruct on personal lipid levels & lipid goals/NCEP guidelines, Instruct on cholesterol and Other additional plan/int Weight Mgt (Other Care) Height: 6 ft 2 in Weight:: 166 lb BMI: 21.3 Diagnosis Overweight/Obesity BMI> 30% ICD-10 E66: No Diagnosis High BMI/Morbid Obesity BMI> 35% ICD-10 Z68: No Outcomes/Goals: Pt sets, maintains & shows weight loss goal & trend during rehab and Other additional outcomes/goals Intervention/Plan: Instruct on ideal BMI & set weight loss goal w/patient, Assist pt to ID & incorporate diet changes for weight loss by S9, Refer to Str [facility]ctured Weight Loss program as appropriate, Encourage goal of using 250-300dcal per session for weight loss and Other additional plan/interventions Healthy Eating Habits Will attend diet classes:: Yes Outcomes/Goals:: Consume diet rich in vegs,fruits,whole grain/high fiber,fish,lean meat, Limit sat/trans fats,cholesterol & added salts & sugars and Other additional outcome/goals: Intervention/Plan:: Assess current eating habits and Other Additional plan/interventions 30-day Reassessments:: Met Reassessment Notes & Comments:: Pt has attended nutrition class. Pt understands the benefits of a heart healthy low sodium diet. Education Gave educational materials for:: Signs & symptoms of hypoglycemia, Signs & symptoms of hyperglycemia, Relate diabetes to coronary artery disease and Healthy eating
[2024-09-15 09:24] VITALS: BP 128/64; BMI 21.3
== END 2024-09-16 23:59 ==
LOC: CR 13:00
PROVIDERS: PCP Internal Medicine; Referring Provider Internal Medicine Cardiovascular Disease; Visit Provider Internal Medicine Cardiovascular Disease
DX: Z95.1 Presence of aortocoronary bypass graft (principal); Z86.79 Personal history of other diseases of the circulatory system; I25.10 Atherosclerotic heart disease of native coronary artery without angina pectoris; I48.0 Paroxysmal atrial fibrillation; E78.2 Mixed hyperlipidemia; I10 Essential (primary) hypertension; Z95.0 Presence of cardiac pacemaker
CPT/HCPCS: 93798

== ENCOUNTER 2024-10-10 13:00 | Outpatient (RCR) | payer MEDICARE, SELFPAY ==
[2024-09-15 09:24] VITALS: BMI 21.3
[2024-09-17 01:14] VITALS: BP 128/64; BP 128/72; BP 134/80; BP 137/79
== END 2024-10-17 23:59 ==
LOC: CR 13:00
PROVIDERS: PCP Internal Medicine; Referring Provider Internal Medicine Cardiovascular Disease; Visit Provider Internal Medicine Cardiovascular Disease
DX: Z95.1 Presence of aortocoronary bypass graft (principal); Z86.79 Personal history of other diseases of the circulatory system; I25.10 Atherosclerotic heart disease of native coronary artery without angina pectoris; I48.0 Paroxysmal atrial fibrillation; E78.2 Mixed hyperlipidemia; I10 Essential (primary) hypertension; Z95.0 Presence of cardiac pacemaker
CPT/HCPCS: 93798

== ENCOUNTER → 2025-05-05 | Outpatient (CLI) | payer MEDICARE, SELFPAY ==
[2024-07-29 07:21] VITALS: BMI 21.3
[2024-09-15 09:24] VITALS: BMI 21.3
--- NOTE | 2025-05-05 16:20 | CT_ITS ---
PROCEDURE: LOW DOSE CT LUNG SCREENING 05/05/2025 REASON FOR EXAM: QUIT SMOKING 01/2025 TECHNIQUE: Procedure Code: CTLUNGSCREEN Modality: CT Procedure: LOW DOSE CT LUNG SCREENING Coronal and Sagittal reconstruction series were provided. One or more dose reduction techniques were used (e.g., Automated exposure control, adjustment of the mA and/or kV according to patient size, use of iterative reconstruction technique). REFERENCE LINK: [employer] Lung-RADS RADIATION DOSE SUMMARY: CTDlvol: 1.59 mGy DLP: 64.34 mGycm COMPARISON: None FINDINGS: PULMONARY NODULES: (Only nodules >3mm are reported) Lower neck:The thyroid gland is grossly unremarkable. There is no supraclavicular lymphadenopathy. Mediastinum:There is mediastinal lymphadenopathy. There is left hilar lymphadenopathy measuring 3.1 x 2.9 x 2.8 cm. Heart and Vasculature:The heart size is normal. There is no pericardial effusion. There is significant calcific vascular disease of the coronary arteries and thoracic aorta. Status post CABG surgery. There are multiple pacemaker leads in the right cardiac chambers. Esophagus:There is a small hiatal hernia. Upper Abdomen:There is significant calcific vascular disease of the visualized abdominal aorta. Chest wall:There is a pacemaker generator in the left upper chest wall. There is no axillary lymphadenopathy. There is multilevel degenerative disc disease of the thoracic and upper lumbar spine. There is mild levoscoliosis of the thoracic spine. Status post median sternotomy. Lungs, airways and pleura: There is severe upper lobe predominant centrilobular emphysema. There is a pleural-parenchymal scar and in the middle lobe of the right lung. In the superior segment of the lower lobe of the left lung there is a pleural-based soft tissue mass, measuring 5.2 x 4.6 x 4.4 cm. There are multiple benign calcified granulomas in both lungs. There are no pleural effusions. CT/Low Dose CT Lung Screening IMPRESSION: 1. There is a 5.2 cm in greatest dimension mass in the lower lobe of the left lung consistent with a primary bronchogenic carcinoma. 2. There is a 3.1 cm in greatest dimension left hilar lymph node consistent wi th metastatic disease. 3. Other findings as noted. Lung-RADS Category: 4XS VERY SUSPICIOUS WITH ADDITIONAL FEATURES THAT INCREASE SUSPICION FOR LUNG CANCER. Recommendation: Tissue sampling and PET scan. Reading Location: [place] [id number]
--- OUTSIDE RECORDS SUMMARY | 2025-05-05 16:20 | XMS RPT_ITS | CCD ---
Author Organization [facility] Care Team Providers Care Rn Rehab Name Role Phone [employer] Unavailable Unavailable NONE, DOCTOR Unavailable Unavailable Unavailable Unavailable Unavailable Unavailable Primary Care Provider UnavailDom [place] Primary Care Provider Artemio Ivan Primary Care Provider Artemio Ivan Primary Care Provider Artemio Ivan MD Primary Care Provider Artemio Ivan MD Primary Care Provider Dr. Estephania Alvarado Primary Care Provider Dr. Estephania Alvarado Referring Provider [phone] Ruddy MANUFACTURING SHIFT SUPERVISOR, MANUFACTURING SHIFT SUPERVISOR-C Artemio Pennington Attending Provider Dr. Estephania Alvarado Attending Provider [phone] Dr. Bronson Beard Attending Provider Dr. Bronson Beard Referring Provider Dr. Bronson Beard Other Provider Dr. Chencho Madison Attending Provider Dr. Manish Walker Attending Provider Dr. Chencho Madison Referring Provider Dr. Estephania Alvarado Primary Care Provider Dr. Estephania Alvarado Referring Provider [phone] Dr. Estephania Alvarado Attending Provider [phone] Ruddy MANUFACTURING SHIFT SUPERVISOR, MANUFACTURING SHIFT SUPERVISOR-C Artemio Pennington Attending Provider Nathalia Ibarra Attending Provider Unavailable Dr. Estephania Alvarado Primary Care Provider Shanae MANUFACTURING SHIFT SUPERVISOR, MANUFACTURING SHIFT SUPERVISOR-C Lakshmi Attending Provider Shanae MANUFACTURING SHIFT SUPERVISOR, MANUFACTURING SHIFT SUPERVISOR-C Lakshmi Referring Provider Dr. Estephania Alvarado Referring Provider Nathalia Ibarra Attending Provider Unavailable Dr. Bronson Beard Attending Provider Dr. Bronson Beard Referring Provider Dr. Randy Ojeda Emergency Provider Dr. Mike Brown Admit Provider Dr. Mike Brown Attending Provider Dr. Mike Brown Other Provider Dr. Skylar Smith Attending Provider Dr. Skylar Smith Other Provider Required, No Pcp Unavailable Unavailable FranchescaAlexandria Unavailable Franchesca Joycelyn Alexandria Wesley Attending JyothinjArtemio Adair MD Primary Care Provider Dr. Estephania Alvarado Primary Care Provider Dr. Tu Mcmahon Attending Provider Dr. Tu Mcmahon Referring Provider Dr. Estephania Alvarado Attending Provider Dr. Estephania Alvarado Referring Provider [phone] Chencho Madison Attending Provider Dr. Chencho Madison Referring Provider Dr. Chencho Madison Other Provider Dr. Luis Cheung Attending Provider Dr. Estephania Alvarado Primary Care Provider Fadi KUNZ, MANUFACTURING SHIFT SUPERVISOR-C Fouzia Attending Provider Dr. Estephania Alvarado Primary Care Provider Shanae MANUFACTURING SHIFT SUPERVISOR, MANUFACTURING SHIFT SUPERVISOR-C Lakshmi Attending Provider Nathalia Ibarra Attending Provider Unavailable Homero, Dr. Beavers Attending Provider Estephania Alvarado MD Primary Care Provider Dr. Estephania Alvarado Primary Care Provider Dr. Estephania Alvarado Referring Provider Nathalia Ibarra Attending Provider Unavailable Dr. Nimesh Valentin Attending Provider Homero, Dr. Beavers Referring Provider Fadi MANUFACTURING SHIFT SUPERVISOR, MANUFACTURING SHIFT SUPERVISOR-C Fouzia Attending Provider Dr. Tu Mcmahon Attending Provider Shanae MANUFACTURING SHIFT SUPERVISOR, MANUFACTURING SHIFT SUPERVISOR-C Lakshmi Attending Provider Dr. Tu Mcmahon Referring Provider Unavailable Primary Care Provider UnavailDr. Estephania Ziegler Primary Care Provider Dr. Tu Mcmahon Attending Provider Dr. Tu Mcmahon Referring Provider Dr. Estephania Alvarado Referring Provider Dr. Chencho Madison Attending Provider Dr. Nimesh Valentin Attending Provider Estephania Alvarado MD Primary Care Provider Estephania Alvarado Primary Care Provider Estephania Alvarado Primary Care Provider [phone] Peter RN, Albina Unavailable Unavailable Poonam Mcbride I. Unavailable Un available AMADO VARGAS Attending Unavailable LUCYR AMADO Referring Unavailable ESTEPHANIA ALVARADO Primary Care Unavailable MELO VARGASIN Attending Unavailable ESTEPHANIA ALVARADO Primary Care Unavailable ESTEPHANIA ALVARADO Primary Care Unavailable MELY PATRICIA Attending Unavailzack e ESTEPHANIA ALVARADO Primary Care Unavailable MAYOR, AMADO Attending Unavailable JENNY, ESTEPHANIA Primary Care Unavailable MAYOR, AMADO Attending Unavailable MAYOR, AMADO Referring Unavailable JENNY, ESTEPHANIA Primary Care Unavailable MAYOR, AMADO Attending Unavailable MAYOR, AMADO Referring Unavailable EAST, MIKE Admitting Unavailable EAST, MIKE Attending Unavailable JENNY, ESTEPHANIA Primary Care Unavailable NONE, PCP Referring Unavailable ASSAAD, ELVA Consulting Unavailable VEERAVANALLUR APPUSWAMY, ANGELES Consulting Unavailable JENNY, ESTEPHANIA Primary Care Unavailable MAYOR, AMADO Admitting Unavailable MAYOR, AMADO Attending Unavailable MAYOR, AMADO Attending Unavailable MAYOR, AMADO Referring Unavailable JENNY, ESTEPHANIA Primary Care Unavailable JANEEN, MADDIE Referring Unavailable JENNY, ESTEPHANIA Primary Care Unavailable VELURY, SRIHARSHA Attending Unavailable VELURY, SRIHARSHA Primary Care Unavailable JENNY, ESTEPHANIA Primary Care Unavailable MCCAINDYLON Attending Unavailable JENNY, ESTEPHANIA Primary Care Unavailable MCCAINDYLON Attending Unavailable JENNY, ESTEPHANIA Primary Care Unavailable SELF, SELF Referring Unavailable ARUNA PRESCOTT Attending Unavailable DAVE ESPINAL Attending Unavailable JENNY, ESTEPHANIA Primary Care Unavailable JENNY, ESTEPHANIA Primary Care Unavailable JEANNINE FUENTES Attending Unavailable Dr. Estephania Alvarado MD Primary Care Provider [phone] Dr. Nimesh Valentin MD Attending Provider Dr. Nimesh Valentin MD Referring Provider Dr. Estephania Alvarado MD Referring Provider Artemio Perez Attending Provider [phone] Dr. Tu Mcmahon MD Attending Provider Dr. Tu Mcmahon MD Referring Provider Lakshmi Diaz Attending Provider Dr. Estephania Alvarado MD Attending Provider Generic Provider MD, No Assigned Pcp Primary Car e Provider Unavailable ARTEMIO EDMONDSON Attending Unavailable GENERIC PROVIDER, NO ASSIGNED PCP Primary Care Unavailable MOON HARRIS Attending Unavailable ESTEPHANIA ALVARADO Primary Care Unavailable Dr. Estephania Alvarado MD Primary Care Provider Homero BALES, Dr. Beavers Attending Provider Homero BALES, Dr. Beavers Referring Provider Lisandro BALES, Dr. Mae Attending Provider Jenny BALES, Dr. Soto Attending Provider Jenny BALES, Dr. Soto Referring Provider Lakshmi Diaz Attending Provider Jenny BALES, Dr. Soto Primary Care Provider Homero BALES, Dr. Beavers Attending Provider Homero BALES, Dr. Beavers Referring Provider Jenny BALES, Dr. Soto Primary Care Provider [phone] Jenny BALES, Dr. Soto Primary Care Provider [phone] Lisandro BALES, Dr. Mae Attending Provider Lisandro BALES, Dr. Mae Referring Provider Jenny BALES, Dr. Soto Attending Provider Artemio Fox NP Attending Unavailable Jenny, Estephania Primary Care Unavailable Jenny, Estephania Referring Unavailable Jenny, Estephania Primary Care Unavailable Lisandro, [place] Referring Unavailable Lisandro, Tu Attending Unavailable Jenny, Estephania Primary Care Unavailable Lisandro, [place] Attending Unavailable Lisandro, [place] Referring Unavailable Homero, Nimesh Referring Unavailable Jenny, Estephania Primary Care Unavailable Homero, Nimesh Attending Unavailable Jenny, Estephania Primary Care Unavailable Lisandro, [place] Attending Unavailable Jenny, Estephania Primary Care Unavailable Lisandro, [place] Referring Unavailable Lisandro, [place] Attending Unavailable Jenny, Estephania Primary Care Unavailable Lisandro, [place] Attending Unavailable Homero, Nimesh Referring Unavailable Jenny, Estephania Primary Care Unavailable Homero, Nimesh Attending Unavailable Homero, Nimesh Referring Unavailable Jenny, Estephania Primary Care Unavailable Homero, Nimesh Attending Unavailable Homero, Nimesh Referring Unavailable Jenny, Estephania Primary Care Unavailable Homero, Nimesh Attending Unavailable Jenny, Estephania Primary Care Unavailable Jolly MANUFACTURING SHIFT SUPERVISOR, Lakshmi Attending Unavailable Jenny, Estephania Referring Unavailable Jenny, Estephania Referring Unavailable Jenny, Estephania Attending Unavailable Jenny, Estephania Primary Care Unavailable Homero, Nimesh Attending Unavailable Homero, Nimesh Referring Unavailable Jenny, Estephania Primary Care Unavailable Jenny, Estephania Primary Care Unavailable Jolly MANUFACTURING SHIFT SUPERVISOR, Lakshmi Referring Unavailable Jolly MANUFACTURING SHIFT SUPERVISOR, Lakshmi Attending Unavailable Homero, Nimesh Referring Unavailable Homero, Nimesh Attending Unavailable Jenny, Estephania Primary Care Unavailable Jenny, Estephania Attending Unavailable Jenny, Estephania Primary Care Unavailable Jenny, Estephania Primary Care Unavailable Jenny, Estephania Attending Unavailable Lisandro, Tu Referring Unavailable Jenny, Estephania Referring Unavailable Jenny, Estephania Primary Care Unavailable Jolly MANUFACTURING SHIFT SUPERVISOR, Lakshmi Attending Unavailable Jenny, Estephania Referring Unavailable Jenny, Estephania Primary Care Unavailable Jolly MANUFACTURING SHIFT SUPERVISOR, Lakshmi Attending Unavailable Jenny, Estephania Attending Unavailable Jenny, Estephania Primary Care Unavailable Allergies Allergy Classification Reported Allergen(s) Allergy Type Date of Onset Reaction(s) Facility Adrenergic Antagonists (12 sources) tamsulosin Drug Allergy [address] [place] [address] Penicillins (antibiotic) (12 sources) Penicillins Drug Allergy 3 [facility] Platelet Inhibitors (P2Y12, not including aspirin) (12 sources) [facility] clopidogrel; Translations: [PLAVIX] Drug Allergy [facility] Repository (2 sources) penicillin; Translations: [PENICILLIN] Drug Allergy [facility] Repository (1 source) YES - ALLERGIES EXIST; Translations: [YES - ALLERGIES EXIST] Propensity to adverse reactions (disorder) [facility] Repository (20 sources) clopidogrel; Translations: [facility]OGREL[facility] ([facility] Penicillins; Translations: [PENICILLINS] Propensity to adverse reactions to drug 3 [facility] Work Phone: (20 sources) tamsulosin; Translations: [TAMSULOSIN] Drug Allergy 6 Unknown, Other [facility] Work Phone: Comment on above: "BLACKOUT" (15 sources) Penicillins Allergy to substance 2 Hives [facility] (20 sources) Penicillins Propensity to adverse reactions to drug 3 Hives, [facility] (2 sources) Penicillins Drug Intolerance 3 Hives, [facility] Work Phone: (1 source) Penicillins Drug Intolerance 3 Hives, [facility] Work Phone: (1 source) clopidogrel Drug Allergy 5 [facility] Repository (1 source) Penicillins Drug allergy (disorder) 5 [facility] Repository (1 source) tamsulosin Drug Allergy 5 [facility] Repository Medications Current Medications Medication Drug Class(es) Dates Sig (Normalized) Sig (Original) [id number] 200 actuat albuterol 0.09 mg/actuat metered dose inhaler (20 sources) beta2-Adrenergic Agonist Start: 02-25-2024 End: 08-31-2024 take 2 puff(s) by mouth every six hours as needed for wheezing Albuterol Sulfate 90 mcg/actuation HFA aerosol inhaler Active 2 NMA INHALATION EVERY 6 HOURS as needed for Breathing 8.5 6 August 31, 2024 2:48pm Smoking greater than 40 pack years Nicotine dependence, cigarettes, uncomplicated inhale 2 puffs by mouth and INTO THE LUNGS every 6 hours if needed for shortness of breath or wheezing Start: 02-15-2024 End: 02-25-2024 Start: 10-15-2023 take 2 puff(s) by in halation every six hours as needed albuterol 108 (90 Base) MCG/ACT inhaler Inhale 2 puffs every 6 hours as needed. 10/15/2023 Active Start: 10-15-2023 Start: 09-01-2022 End: 09-29-2022 take 2.5 mg by inhalation every six hours Albuterol Sulfate Discontinued 2.5 MG INHALATION EVERY 6 HOURS 180 September 01, 2022 7:57am September 29, 2022 11:47am Start: 09-01-2022 End: 09-29-2022 take 2.5 mg by inhalation every six hours Albuterol Sulfate Discontinued 2.5 MG INHALATION EVERY 6 HOURS 180 September 01, 2022 8:57am September 29, 2022 12:47pm Start: 08-22-2021 End: 02-25-2024 take 2 puff(s) by mouth every six hours for wheezing Albuterol Sulfate 90 mcg/actuation HFA aerosol inhaler Discontinued 0 .ROUTE .COMPLEX 8.5 5 October 23, 2022 4:15pm April 06, 2023 10:15am inhale 2 puffs by mouth and INTO THE LUNGS every 6 hours if needed for shortness of breath or wheezing Start: 07-15-2021 End: 08-22-2021 Albuterol Sulfate 90 mcg/act uation HFA aerosol inhaler Discontinued 2 NMA INHALATION EVERY 6 HOURS as needed for shortness of breath or wheezing 8.5 0 July 15, 2021 1:00am August 22, 2021 9:52am Start: 07-15-2021 End: 08-22-2021 take 1 puff(s) by inhalation every six hours Albuterol Sulfate Discontinued 2 PUFF INHALATION EVERY 6 HOURS 8.5 July 15, 2021 1:00am August 22, 2021 9:52am Start: 02-17-2021 End: 02-09-2024 take 2.5 mg by inhalation every six hours as needed for wheezing Albuterol Sulfate 2.5 mg /3 mL (0.083 %) solution for nebulization Discontinued 2.5 mg INHALATION EVERY 6 HOURS as needed for Wheezing 180 6 September 29, 2022 12:47pm April 06, 2023 10:15am Start: 12-31-2020 albuterol (KARELY TOLIN HFA) inhaler 2 puff Start: 06-26-2020 take 1-2 puff(s) by inhalation every six hours as needed for wheezing albuterol 108 (90 Base) MCG/ACT Aero Soln inhaler Indications: Chronic obstructive pulmonary disease, unspecified COPD type Inhale 1-2 puffs every 6 hours as needed for Shortness of Breath or Wheezing. 1 Inhaler 2 06/26/2020 Active Start: 06-01-2019 End: 02-26-2022 take 2.5 mg by inhalation every six hours as needed albuterol (2.5 MG/3ML) 0.083% inhalation solution Take 3 mL by nebulization every 6 hours as needed. 360 mL 3 02/26/2021 02/26/2022 Active Start: 04-21-2018 albuterol 108 (90 Base) MCG/ACT Aero Soln inhaler Inhale 1-2 puffs As directed as needed. 0 04/21/2018 Active Start: 04-21-2018 albuterol 108 (90 Base) MCG/ACT Aero Soln inhaler Inhale 1-2 puffs As directed as needed. 0 04/21/2018 Active take 2 puff(s) by mo uth every six hours as needed for wheezing albuterol 90 mcg/actuation inhaler INHALE TWO PUFFS BY MOUTH EVERY 6 HOURS NEEDED FOR SHORTNESS OF BREATH OR wheezing Active take 2 puff(s) by in halation every six hours as needed albuterol 90 mcg/inh inhalation aerosol ; 2 puff(s) inhaled every 6 hours, As Needed Quantity: 0 Refills: 0 Ordered: 30-Sep-2022 Alexandria Sorensen Generic Substitution Allowed albuterol (VENTOLIN HFA) inhaler 2 puff (1 source) Start: 06-01-2020 albuterol (KARELY TOLIN HFA) inhaler 2 puff albuterol 108 (90 Base) MCG/ACT Aero Soln inhaler (20 sources) Start: 06-26-2020 take 1-2 puff(s) by inhalation every six hours as needed for wheezing albuterol 108 (90 Base) MCG/ACT Aero Soln inhaler Indications: Chronic obstructive pulmonary disease, unspecified COPD type Inhale 1-2 puffs every 6 hours as needed for Shortness of Breath or Wheezing. 1 Inhaler 2 06/26/2020 Active Start: 04-17-2020 take 1-2 puff(s) by inhalation every six hours as needed for wheezing albuterol 108 (90 Base) MCG/ACT Aero Soln inhaler Indications: Chronic obstructive pulmonary disease, unspecified COPD type Inhale 1-2 puffs every 6 hours as needed for Shortness of Breath or Wheezing. 1 Inhaler 2 04/17/2020 Active Start: 04-12-2020 End: 04-17-2020 take 1-2 puff(s) by inhalation every six hours as needed for wheezing albuterol 108 (90 Base) MCG/ACT Aero Soln inhaler Indications: Chronic obstructive pulmonary disease, unspecified COPD type Inhale 1-2 puffs every 6 hours as needed for Shortness of Breath or Wheezing. 1 Inhaler 0 04/12/2020 04/17/2020 Discontinued (Reorder) Start: 09-22-2019 take 1-2 puff(s) by inhalation every six hours as needed for wheezing albuterol 108 (90 Base) MCG/ACT Aero Soln inhaler Indications: Chronic obstructive pulmonary disease, unspecified COPD type Inhale 1-2 puffs every 6 hours as needed for Shortness of Breath or Wheezing. 1 Inhaler 2 09/22/2019 Active Start: 07-25-2019 End: 09-22-2019 take 1-2 puff(s) by inhalation every six hours as needed for wheezing albuterol 108 (90 Base) MCG/ACT Aero Soln inhaler Indications: Chronic obstructive pulmonary disease, unspecified COPD type Inhale 1-2 puffs every 6 hours as needed for Shortness of Breath or Wheezing. 1 Inhaler 0 07/25/2019 09/22/2019 Discontinued (Reorder) Start: 07-25-2019 take 1-2 puff(s) by inhalation every six hours as needed for wheezing albuterol 108 (90 Base) MCG/ACT Aero Soln inhaler Indications: Chronic obstructive pulmonary disease, unspecified COPD type Inhale 1-2 puffs every 6 hours as needed for Shortness of Breath or Wheezing. 1 Inhaler 0 07/25/2019 Active amLODIPine 5 mg oral tablet (20 sources) Dihydropyridine Calcium Channel Morteza Start: 03-01-2025 take 1 tablet by mouth once daily Amlodipine 5 mg tablet Active 5 mg PO DAILY 90 March 01, 2025 1:38pm Start: 02-05-2024 End: 02-09-2024 Start: 12-31-2023 End: 02-25-2024 take 5 mg by mouth once daily 5 mg, Oral, Daily, First dose on Thu02/15/24 at 2015, On hold since Cyndee 02/18/2024 at 0852 until manually unheld Start: 11-26-2023 End: 12-16-2023 take 1 tablet by mouth once daily Amlodipine 5 mg tablet Discontinued 5 mg PO DAILY 30 November 26, 2023 12:00am December 16, 2023 12:31pm B-Complex With Vitamin C (1 source) Start: 09-10-2023 take 1 tablet by mouth once daily B-Complex With Vitamin C Active 1 TABLET PO DAILY September 10, 2023 1:00am Budesonide-Formot sabine (20 sources) Corticosteroid, beta2-Adrenergi c Agonist Start: 08-31-2024 take 2 puff(s) by mouth every twelve hours Budesonide-Formoterol (Symbicort) 160-4.5 mcg/actuation HFA aerosol inhaler Active 2 NMA INHALATION Q12H 3 3 August 31, 2024 2:49pm Smoking greater than 40 pack years Nicotine dependence, cigarettes, uncomplicated Breathing inhale 2 puffs by mouth every 12 hours Start: 08-31-2024 take 2 puff(s) by mo uth every twelve hours Budesonide-Formoterol (Symbicort) 160-4.5 mcg/actuation HFA aerosol inhaler Active 2 NMA INHALATION Q12H 3 August 31, 2024 2:49pm inhale 2 puffs by mouth every 12 hours Start: 03-31-2024 End: 08-31-2024 take 2 puff(s) by mouth every twelve hours Budesonide-Formoterol (Symbicort) 160-4.5 mcg/actuation HFA aerosol inhaler Discontinued 2 NMA INHALATION Q12H 3 3 March 31, 2024 12:44pm August 31, 2024 2:50pm Breathing inhale 2 puffs by mouth every 12 hours Start: 03-31-2024 End: 08-31-2024 take 2 puff(s) by mouth every twelve hours Budesonide-Formoterol (Symbicort) 160-4.5 mcg/actuation HFA aerosol inhaler Discontinued 2 NMA INHALATION Q12H 3 March 31, 2024 12:44pm August 31, 2024 2:50pm inhale 2 puffs by mouth every 12 hours Start: 02-25-2024 End: 03-31-2024 take 2 puff(s) by mouth every twelve hours Budesonide-Formoterol (Symbicort) 160-4.5 mcg/actuation HFA aerosol inhaler Discontinued 2 NMA INHALATION Q1February 25, 2024 12:00am March 31, 2024 12:45pm Breathing inhale 2 puffs by mouth every 12 hours Start: 02-25-2024 End: 03-31-2024 take 2 puff(s) by mouth every twelve hours Budesonide-Formoterol (Symbicort) 160-4.5 mcg/actuation HFA aerosol inhaler Discontinued 2 NMA INHALATION Q1February 25, 2024 12:00am March 31, 2024 12:45pm inhale 2 puffs by mouth every 12 hours Start: 12-31-2023 take 2 puff(s) by in halation in the morning Symbicort 160-4.5 MCG/ACT inhaler Inhale 2 puffs in the morning and 2 puffs in the evening. 12/31/2023 Active Start: 12-31-2023 Start: 09-10-2023 End: 02-25-2024 take 2 puff(s) by mouth every twelve hours Budesonide-Formoterol (Symbicort) 160-4.5 mcg/actuation HFA aerosol inhaler Discontinued 0 .ROUTE .COMPLEX 3 3 September 10, 2023 12:17pm February 25, 2024 5:16pm inhale 2 puffs by mouth every 12 hours Start: 09-10-2023 End: 02-25-2024 take 2 puff(s) by mouth every twelve hours Budesonide-Formoterol (Symbicort) 160-4.5 mcg/actuation HFA aerosol inhaler Discontinued 0 .ROUTE .COMPLEX 3 September 10, 2023 12:17pm February 25, 2024 5:16pm inhale 2 puffs by mouth every 12 hours Start: 09-10-2023 take 2 puff(s) by mo uth every twelve hours Budesonide-Formoterol (Symbicort) 160-4.5 mcg/actuation HFA aerosol inhaler Active 0 .ROUTE .COMPLEX 3 September 10, 2023 12:17pm inhale 2 puffs by mouth every 12 hours Start: 04-06-2023 End: 09-10-2023 take 2 puff(s) by mouth every twelve hours Budesonide-Formoterol (Symbicort) 160-4.5 mcg/actuation HFA aerosol inhaler Discontinued 0 .ROUTE .COMPLEX 3 3 April 06, 2023 10:13am September 10, 2023 12:18pm inhale 2 puffs by mouth every 12 hours Start: 04-06-2023 End: 09-10-2023 take 2 puff(s) by mouth every twelve hours Budesonide-Formoterol (Symbicort) 160-4.5 mcg/actuation HFA aerosol inhaler Discontinued 0 .ROUTE .COMPLEX 3 April 06, 2023 10:13am September 10, 2023 12:18pm inhale 2 puffs by mouth every 12 hours Start: 04-06-2023 take 2 puff(s) by mo uth every twelve hours Budesonide-Formoterol (Symbicort) 160-4.5 mcg/actuation HFA aerosol inhaler Active 0 .ROUTE .COMPLEX 3 April 06, 2023 9:13am inhale 2 puffs by mouth every 12 hours Start: 04-06-2023 take 2 puff(s) by mo uth every twelve hours Budesonide-Formoterol (Symbicort) 160-4.5 mcg/actuation HFA aerosol inhaler Active 0 .ROUTE .COMPLEX 3 April 06, 2023 10:13am inhale 2 puffs by mouth every 12 hours Start: 07-31-2022 End: 04-06-2023 take 2 puff(s) by mouth every twelve hours Budesonide-Formoterol (Symbicort) 160-4.5 mcg/actuation HFA aerosol inhaler Discontinued 0 .ROUTE .COMPLEX 10.2 July 31, 2022 8:59am April 06, 2023 10:15am inhale 2 puffs by mouth every 12 hours Start: 07-31-2022 End: 04-06-2023 take 2 puff(s) by mouth every twelve hours Budesonide-Formoterol (Symbicort) 160-4.5 mcg/actuation HFA aerosol inhaler Discontinued 0 .ROUTE .COMPLEX 10.2 July 31, 2022 7:59am Zaira 18th, 2023 9:15am inhale 2 puffs by mouth every 12 hours Start: 07-31-2022 End: 04-06-2023 take 2 puff(s) by mouth every twelve hours Budesonide-Formoterol (Symbicort) 160-4.5 mcg/actuation HFA aerosol inhaler Discontinued 0 .ROUTE .COMPLEX 10.2 July 31, 2022 8:59am April 06, 2023 10:15am inhale 2 puffs by mouth every 12 hours Start: 07-31-2022 take 2 puff(s) by mo uth every twelve hours Budesonide-Formoterol (Symbicort) 160-4.5 mcg/actuation HFA aerosol inhaler Active 0 .ROUTE .COMPLEX 10.2 July 31, 2022 8:59am inhale 2 puffs by mouth every 12 hours Start: 07-31-2022 take 2 puff(s) by mo uth every twelve hours Budesonide-Formoterol (Symbicort) 160-4.5 mcg/actuation HFA aerosol inhaler Active 0 .ROUTE .COMPLEX 10.2 July 31, 2022 7:59am inhale 2 puffs by mouth every 12 hours Start: 07-16-2022 End: 07-31-2022 take 2 puff(s) by mouth every twelve hours Budesonide-Formoterol (Symbicort) 160-4.5 mcg/actuation HFA aerosol inhaler Discontinued 0 .ROUTE .COMPLEX 10.2 July 16, 2022 11:15am July 31, 2022 8:59am inhale 2 puffs by mouth every 12 hours Start: 07-16-2022 End: 07-31-2022 take 2 puff(s) by mouth every twelve hours Budesonide-Formoterol (Symbicort) 160-4.5 mcg/actuation HFA aerosol inhaler Discontinued 0 .ROUTE .COMPLEX 10.2 July 16, 2022 11:15am July 31, 2022 8:59am inhale 2 puffs by mouth every 12 hours Start: 07-16-2022 End: 07-31-2022 take 2 puff(s) by mouth every twelve hours Budesonide-Formoterol (Symbicort) 160-4.5 mcg/actuation HFA aerosol inhaler Discontinued 0 .ROUTE .COMPLEX 10.2 July 16, 2022 10:15am July 31, 2022 7:59am inhale 2 puffs by mouth every 12 hours Start: 08-22-2021 End: 07-16-2022 take 2 puff(s) by mouth every twelve hours Budesonide-Formoterol (Symbicort) 160-4.5 mcg/actuation HFA aerosol inhaler Discontinued 0 .ROUTE .COMPLEX 10.2 August 22, 2021 9:51am July 16, 2022 11:16am inhale 2 puffs by mouth every 12 hours Start: 07-16-2021 End: 08-22-2021 Budesonide-Formoterol 160-4. 5 mcg/actuation HFA aerosol inhaler Discontinued 2 NMA INHALATION Q12H 10.2 0 July 16, 2021 5:40pm August 22, 2021 9:52am Start: 07-16-2021 End: 08-22-2021 Budesonide-Formoterol 160-4. 5 mcg/actuation HFA aerosol inhaler Discontinued 2 NMA INHALATION Q12H 10.2 July 16, 2021 5:40pm August 22, 2021 9:52am Start: 07-16-2021 End: 08-22-2021 take 1 puff(s) by inhalation every twelve hours Budesonide-Formoterol Discontinued 2 PUFF INHALATION Q12H 10.2 July 16, 2021 4:40pm August 22, 2021 8:52am Start: 07-16-2021 End: 08-22-2021 take 1 puff(s) by inhalation every twelve hours Budesonide-Formoterol Discontinued 2 PUFF INHALATION Q12H 10.2 July 16, 2021 5:40pm August 22, 2021 9:52am Start: 02-17-2021 End: 07-16-2021 Budesonide-Formoterol 160-4. 5 mcg/actuation Hfa Aerosol Inhaler Discontinued 2 NMA INHALATION Q12H February 17, 2021 12:00am July 16, 2021 5:40pm Start: 02-17-2021 End: 07-16-2021 take 1 puff(s) by inhalation every twelve hours Budesonide-Formoterol Discontinued 2 PUFF INHALATION Q12H February 16, 2021 11:00pm July 16, 2021 4:40pm Start: 02-17-2021 End: 07-16-2021 take 1 puff(s) by inhalation every twelve hours Budesonide-Formoterol Discontinued 2 PUFF INHALATION Q12H February 17, 2021 12:00am July 16, 2021 5:40pm Start: 12-02-2020 take 2 puff(s) by in halation twice daily budesonide-formoteroL (Symbicort) 160-4.5 mcg/actuation inhaler Inhale 2 puffs twice a day. 12/02/2020 Active Start: 12-02-2020 take 2 puff(s) by in halation every twelve hours budesonide-formoterol (Symbicort) 160-4.5 mcg/puff Aerosol inhaler Indications: Chronic obstructive pulmonary disease, unspecified COPD type Inhale 2 puffs every 12 hours. 10.2 g 3 12/02/2020 Active Start: 12-02-2020 take 2 puff(s) by in halation twice daily budesonide-formoteroL (Symbicort) 160-4.5 mcg/actuation inhaler Inhale 2 puffs twice a day. 0 12/02/2020 Active Start: 04-12-2020 End: 06-21-2020 take 2 puff(s) by inhalation every twelve hours budesonide-formoterol (Symbicort) 160-4.5 mcg/puff Aerosol inhaler Indications: Chronic obstructive pulmonary disease, unspecified COPD type Inhale 2 puffs every 12 hours. 1 Inhaler 2 06/21/2020 Active Start: 10-31-2019 take 2 puff(s) by in halation every twelve hours budesonide-formoterol (Symbicort) 160-4.5 mcg/puff Aerosol inhaler Indications: Chronic obstructive pulmonary disease, unspecified COPD type Inhale 2 puffs every 12 hours. 1 Inhaler 1 10/31/2019 Active Start: 07-25-2019 End: 09-22-2019 take 2 puff(s) by inhalation every twelve hours budesonide-formoterol (Symbicort) 160-4.5 mcg/puff Aerosol inhaler Indications: Chronic obstructive pulmonary disease, unspecified COPD type Inhale 2 puffs every 12 hours. 1 Inhaler 0 09/22/2019 Active take 2 puff(s) by in halation twice daily Symbicort 160 mcg-4.5 mcg/inh inhalation aerosol ; 2 puff(s) inhaled 2 times a day Quantity: 0 Refills: 0 Ordered: 30-Sep-2022 Franchesca, [place] Generic Substitution Allowed take 2 puff(s) by in halation every twelve hours budesonide-formoterol (SYMBICORT) 160-4.5 mcg/puff Aerosol inhaler Inhale 2 puffs every 12 hours. 0 Active cholecalciferol 0.05 mg oral capsule (20 sources) Vitamin D Start: 01-08-2022 End: 08-31-2024 take 1 capsule by mouth once daily Cholecalciferol (Vitamin D3) 50 mcg (2,000 unit) capsule Active 50 ug PO DAILY 90 August 31, 2024 2:48pm Smoking greater than 40 pack years Nicotine dependence, cigarettes, uncomplicated SUPPLEMENT take 1 capsule by mouth once krystin ly cholecalciferol (Vitamin D-3) 50 MCG (1999 UT) capsule Take 2,000 Units by mouth daily. Active 2 ml dicyclomine hydrochloride 10 mg/ml injection (7 sources) Anticholinergic Start: 02-18-2020 dicyclomine (B ENTYL) injection 20 mg Start: 02-18-2020 take 1 capsule by mo uth three times daily as needed for muscle spasms dicyclomine 10 MG capsule Take 1 capsule by mouth 3 times daily as needed for Abdominal Spasms. 15 capsule 0 02/18/2020 Active DISABILITY PLACARD (20 sources) Start: 09-19-2020 End: 09-19-2025 DISABILITY PLACARD Indicatio ns: Syncope and collapse , Cardiac pacemaker in situ Disability placard end date 09/19/2025 1 Each 09/19/2020 09/19/2025 Active Start: 09-19-2020 End: 09-19-2025 DISABILITY PLACARD Indicatio ns: Syncope and collapse , Cardiac pacemaker in situ Disability placard end date 09/19/2025 1 Each 0 09/19/2020 09/19/2025 Active Start: 08-29-2020 End: 08-29-2025 DISABILITY PLACARD Indicatio ns: Syncope and collapse , Orthostatic hypotension Disability placard end date 08/29/2020 1 Each 08/29/2020 08/29/2025 Active Start: 08-29-2020 End: 08-29-2025 DISABILITY PLACARD Indicatio ns: Syncope and collapse , Orthostatic hypotension Disability placard end date 08/29/2020 1 Each 0 08/29/2020 08/29/2025 Active Start: 08-29-2020 DISABILITY ROSAMARIA CARD Indications: Syncope and collapse , Orthostatic hypotension Disability placard end date 08/29/2020 1 Each 0 08/29/2020 Active Drug or medicament (substance) (4 sources) folic acid 1 mg oral tablet (20 sources) Start: 02-17-2021 take 1 tablet by mouth once daily Folic Acid 1 mg Tablet Active 1 mg PO DAILY February 17, 2021 12:00am Supplement Start: 06-26-2020 End: 09-20-2020 take 1 tablet by mouth once daily Folic Acid 1 mg Tablet Active 1 mg PO DAILY February 17, 2021 12:00am take 1 tablet by cristina th once daily FOLIC ACID PO Take 1 tablet by mouth daily. Suspended take 1 tablet by cristina th once daily FOLIC ACID PO Take 1 tablet by mouth daily. Active furosemide 40 mg oral tablet (20 sources) Loop Diuretic Start: 03-16-2024 take 1 tablet by mouth once daily as needed for edema Furosemide (Lasix) 40 mg tablet Active 40 mg PO DAILY as needed for edema/SOB 5 0 March 16, 2024 12:00am On Hold: Incorrect ordering Start: 02-18-2024 End: 02-19-2024 40 mg, IntraVENous, Daily, F irst dose (after last modification) on Thu02/18/24 at 0900 Start: 02-16-2024 End: 02-17-2024 40 mg, IntraVENous, 2 times daily, First dose on Thu02/16/24 at 0915 Start: 02-04-2024 End: 02-05-2024 Start: 07-23-2023 End: 09-10-2023 take 1 tablet by mouth once daily Furosemide 40 mg tablet Discontinued 40 mg PO .COMPLEX 5 July 23, 2023 1:00am September 10, 2023 12:05pm 40 mg orally daily X 5 days; Start: 03-27-2023 End: 07-21-2023 take 1 tablet by mouth once daily Furosemide (Lasix) 40 mg tablet Discontinued 40 mg PO DAILY 3 March 27, 2023 12:00am July 21, 2023 3:42pm metoprolol tartrate 25 mg oral tablet (20 sources) beta-Adrenergic Morteza Start: 04-19-2024 End: 04-19-2024 5 mg, Intravenous, ONCE, 1 dose, On Thu04/19/24 at 1815 Start: 02-25-2024 End: 03-11-2024 Metoprolol Tartrate 100 mg t ablet Discontinued 25 mg PO TWICE A DAY February 25, 2024 12:00am March 11, 2024 2:19pm heart Start: 02-24-2024 End: 02-24-2025 take 1 tablet by mouth twice daily metoprolol tartrate (Lopressor) 25 MG tablet Take 1 tablet (25 mg) by mouth 2 times daily. 02/25/2024 02/24/2025 Active Start: 02-23-2024 End: 02-24-2024 12.5 mg, Oral, 2 times daily , First dose (after last modification) on Thu02/23/24 at 2100, Hold for SBP less than 105 and/or MAPs less than 65 and/or HR less than 60 Start: 02-07-2024 Start: 02-06-2024 End: 05-09-2024 take 50 mg by mouth twice daily 50 mg, Oral, 2 times d aily, First dose on Thu02/15/24 at 2100 Start: 10-01-2023 End: 02-25-2024 take 1 tablet by mouth twice daily Metoprolol Tartrate 100 mg tablet Discontinued 100 mg PO TWICE A DAY 180 October 02, 2023 8:58am February 25, 2024 5:16pm Start: 07-04-2022 End: 10-01-2023 take 1 tablet by mouth twice daily Metoprolol Tartrate 50 mg tablet Discontinued 50 mg PO TWICE A DAY 180 May 25, 2023 4:59pm October 01, 2023 1:44pm Start: 06-22-2020 End: 02-23-2024 take 1 tablet by mouth twice daily Metoprolol Tartrate 25 mg Tablet Discontinued 25 mg PO TWICE A DAY February 17, 2021 12:00am May 23, 2021 1:48pm Start: 06-20-2020 End: 06-21-2020 metoprolol (LOPRESSOR) injec tion 0-15 mg Start: 04-12-2020 End: 06-22-2020 take 0.5 tablet by mouth twice daily metoprolol 25 MG tab regular release Take 0.5 tablets by mouth 2 times daily. 180 tablet 0 04/17/2020 Active Start: 12-15-2018 End: 12-16-2018 metoprolol (LOPRESSOR) injec tion 0-15 mg Start: 10-21-2018 End: 09-22-2019 take 0.5 tablet by mouth twice daily metoprolol 25 MG tab regular release Take 0.5 tablets by mouth 2 times daily. 90 tablet 1 09/22/2019 Active take 1 tablet by cristina th once daily metoprolol succinate 25 mg oral tablet, extended release ; 1 tab(s) orally once a day Quantity: 0 Refills: 0 Ordered: 30-Sep-2022 [place] Sorensen Generic Substitution Allowed take 1 tablet by cristina th twice daily metoprolol succinate 25 MG tablet XL Take 25 mg by mouth 2 times daily. Active Misc. Devices Misc (7 sources) Oxygen (20 sources) Start: 12-03-2020 oxygen gas Ind ications: Chronic obstructive pulmonary disease, unspecified COPD type Patient discharged from [facility] on 4 Liters of Oxygen via nc due to desaturation. Please provide oxygen for patient due to [facility] ED discharge instructions. This order certifies that this patient is under my care and that I, or a Nurse Practitioner or Physician's Food Service Supervisor had a Asup-ta-Desj Encounter with them. Based upon those findings, the equipment/supplies listed above are medically necessary. 1 Device 12/03/2020 Active Start: 12-03-2020 oxygen gas Ind ications: Chronic obstructive pulmonary disease, unspecified COPD type Patient discharged from [facility] on 4 Liters of Oxygen via nc due to desaturation. Please provide oxygen for patient due to [facility] ED discharge instructions. This order certifies that this patient is under my care and that I, or a Nurse Practitioner or Physician's Food Service Supervisor had a [id number] Encounter with them. Based upon those findings, the equipment/supplies listed above are medically necessary. 1 Device 0 12/03/2020 Active pramipexole dihydrochloride 0.125 mg oral tablet (18 sources) Nonergot Dopamine Agonist Start: 04-17-2020 End: 06-21-2020 Pramipexole Dihydrochloride 0.125 MG tablet Indications: Restless leg syndrome Take 1 tab 3 to 4 hours prior to bedtime 30 tablet 2 06/21/2020 Active roflumilast 0.5 mg oral tablet (20 sources) Phosphodiesterase 4 Inhibitor Start: 12-04-2020 take 1 tablet by mouth once daily roflumilast (Daliresp) 500 mcg tablet Take 1 tablet (500 mcg) by mouth once daily. 12/04/2020 Active valACYclovir 1000 mg oral tablet (1 source) Herpesvirus Nucleoside Analog DNA Polymerase Inhibitor, Herpes Simplex Virus Nucleoside Analog DNA Polymerase Inhibitor, Herpes Zoster Virus Nucleoside Analog DNA Polymerase Inhibitor Start: 10-26-2023 End: 11-02-2023 take 1 tablet by mouth three times daily Valacyclovir 1 g tablet Take 1 tablet by mouth 3 times daily for 7 days. 21 tablet 10/26/2023 11/02/2023 Active Completed/Discontinued Medications Medication Drug Class(es) Dates Sig (Normalized) Sig (Original) acetaminophen 500 mg oral capsule (20 sources) Start: 02-25-2024 End: 03-11-2024 take 1-6 capsules by mouth every eight hours as needed for pain Acetaminophen 500 mg capsule Discontinued 1000 mg PO Q8H as needed for Pain 1-6 or fever February 25, 2024 12:00am March 11, 2024 2:18pm Start: 02-15-2024 End: 02-25-2024 take 1 tablet by mouth every eight hours as needed for pain and pain and fever and headache 1,000 mg, Oral, Every 8 hours PRN, mild pain (1-3), moderate pain (4-6), fever, headaches, Starting on Thu02/15/24 at 2001, Maximum dose of acetaminophen is 4000 mg from all sources in 24 hours. Start: 02-09-2024 End: 03-26-2024 take 2 tablets by mouth every eight hours as needed for pain and pain and fever and headache acetaminophen (Tylenol) 500 MG tablet Take 2 tablets (1,000 mg) by mouth every 8 hours as needed for mild pain (1-3), moderate pain (4-6), fever or headaches. 02/25/2024 03/26/2024 Active Start: 02-02-2024 End: 02-09-2024 take 1 tablet by mouth every eight hours Start: 02-25-2021 End: 02-26-2021 take 325-650 mg by mouth every four hours as needed acetaminophen (TYLENOL) tablet 325-650 mg Acetaminophen / Caffeine (18 sources) Central Nervous System Stimulant, Methylxanthine End: 07-11-2019 Acetaminophen-Caffeine (EXCEDRIN ASPIRIN FREE PO) Take by mouth. 0 07/11/2019 Discontinued (Ineffective) Acetaminophen-Ca ffeine (EXCEDRIN ASPIRIN FREE PO) Take by mouth. 0 Active Acetaminophen-Ca ffeine (EXCEDRIN ASPIRIN FREE PO) Take by mouth. Active 20 ml albumin human, snf 250 mg/ml injection (10 sources) Human Serum Albumin Start: 02-20-2024 End: 02-20-2024 50 g, IntraVENous, at 180 mL/hr, Once, On 02/20/24 at 2030, For 1 dose, Infusion rate depends on indication and clinical situation. In emergencies, may administer as rapidly as necessary to improve clinical condition. After initial volume replacement: 25%: Do not exceed 1 mL/minute (60 mL/hr) in patients with normal plasma volume; 2 to 3 mL/minute (120 to 180 mL/hr) in patients with hypoproteinemia Start: 02-03-2024 End: 02-03-2024 Start: 02-02-2024 End: 02-02-2024 Start: 02-02-2024 End: 02-02-2024 albuterol 0.833 mg/ml / ipratropium bromide 0.167 mg/ml inhalation solution (20 sources) Anticholinergic, beta2-Adrenergic Agonist Start: 04-19-2024 End: 04-19-2024 3 mL, Nebulization, ONCE, 1 dose, On Thu04/19/24 at 1815 Start: 02-18-2024 End: 02-25-2024 3 mL, Nebulization, 3 times daily, First dose (after last modification) on [place] 02/18/24 at 0930 Start: 02-15-2024 End: 02-17-2024 3 mL, Nebulization, 4 times daily, First dose on 02/15/24 at 2015 Start: 09-10-2023 End: 02-03-2024 Start: 02-25-2021 End: 02-26-2021 ipratropium-albuterol (DUONE B) 0.5-2.5 (3) MG/3ML nebulizer solution 3 mL Start: 02-19-2021 ipratropium-al buterol (DUONEB) 0.5-2.5 (3) MG/3ML nebulizer solution 3 mL Start: 02-17-2021 End: 11-26-2023 take 1 mL by inhalation every six hours Ipratropium-Albuterol 0.5 mg-3 mg(2.5 mg base)/3 mL solution for nebulization Discontinued 3 mL INHALATION EVERY 6 HOURS 180 0 September 01, 2022 8:57am April 06, 2023 10:15am Start: 02-17-2021 End: 09-10-2023 ipratropium-albuterol (Duo-N eb) 0.5-2.5 mg/3 mL nebulizer solution Take 3 mL by nebulization every 6 hours as needed. 09/10/2023 Active Start: 11-19-2020 ipratropium-al buterol (DUONEB) 0.5-2.5 (3) MG/3ML nebulizer solution 3 mL Start: 05-03-2020 ipratropium-al buterol (DUONEB) 0.5-2.5 (3) MG/3ML nebulizer solution 3 mL Start: 05-03-2020 ipratropium-al buterol 0.5-2.5 (3) MG/3ML nebulizer solution Take 3 mL by nebulization 4 times daily. 30 Each 05/03/2020 Active Start: 04-25-2020 End: 04-25-2020 ipratropium-albuterol (DUONE B) 0.5-2.5 (3) MG/3ML nebulizer solution 3 mL Start: 06-01-2019 End: 06-01-2019 ipratropium-albuterol (DUONE B) 0.5-2.5 (3) MG/3ML nebulizer solution 3 mL Start: 06-01-2019 End: 06-01-2019 ipratropium-albuterol (DUONE B) 0.5-2.5 (3) MG/3ML nebulizer solution 3 mL Start: 07-19-2018 End: 07-19-2018 ipratropium-albuterol (DUONE B) 0.5-2.5 (3) MG/3ML nebulizer solution 3 mL Albuterol Sulfate 2.5 mg /3 mL (0.083 %) solution for nebulization (6 sources) Start: 09-01-2022 End: 09-29-2022 take 2.5 mg by inhalation every six hours as needed for wheezing Albuterol Sulfate 2.5 mg /3 mL (0.083 %) solution for nebulization Discontinued 2.5 mg INHALATION EVERY 6 HOURS as needed for Wheezing 180 6 September 01, 2022 8:57am September 29, 2022 12:47pm Start: 09-01-2022 End: 09-29-2022 take 2.5 mg by inhalation every six hours as needed for wheezing Albuterol Sulfate 2.5 mg /3 mL (0.083 %) solution for nebulization Discontinued 2.5 mg INHALATION EVERY 6 HOURS as needed for Wheezing 180 September 01, 2022 8:57am September 29, 2022 12:47pm apixaban 5 mg oral tablet (20 sources) Factor Xa Inhibitor Start: 02-11-2022 End: 08-31-2024 take 1 tablet by mouth twice daily Apixaban (Eliquis) 5 mg tablet Discontinued 5 mg PO TWICE A DAY 60 January 12, 2024 2:11pm July 21, 2024 3:26pm Blood thinner aspirin 81 mg oral tablet (20 sources) Platelet Aggregation Inhibitor, Nonsteroidal Anti-inflammatory Drug Start: 02-17-2021 End: 03-11-2024 take 1 tablet by mouth once daily Aspirin 81 mg Tablet Discontinued 81 mg PO DAILY February 17, 2021 12:00am March 11, 2024 2:18pm heart Start: 10-21-2018 End: 02-25-2024 take 81 mg by mouth once daily 81 mg, Oral, Daily, Fir st dose on Thu02/15/24 at 2014, Do not crush, chew, or split. atorvastatin 80 mg oral tablet (20 sources) HMG-CoA Reductase Inhibitor Start: 02-03-2024 End: 07-21-2024 take 1 tablet by mouth at bedtime Atorvastatin 80 mg tablet Discontinued 80 mg PO AT BEDTIME 90 June 29, 2024 3:05pm July 21, 2024 3:27pm cholesterol Start: 10-21-2018 End: 03-11-2024 take 1 tablet by mouth once daily Atorvastatin 10 mg tablet Discontinued 10 mg PO DAILY 90 3 December 31, 2023 1:04pm March 11, 2024 2:18pm 10 ml atropine sulfate 0.1 mg/ml prefilled syringe (2 sources) Anticholinergic, Cholinergic Muscarinic Antagonist Start: 06-20-2020 End: 06-21-2020 atropine injection 0-2 mg Start: 12-15-2018 End: 12-16-2018 atropine injection 0-2 mg azithromycin 250 mg oral tablet (18 sources) Macrolide Antimicrobial Start: 04-27-2024 End: 07-21-2024 Azithromycin 250 mg tablet Discontinued 0 PO .COMPLEX 6 0 April 27, 2024 12:00am July 21, 2024 3:00pm For 250 mg dose pack: take 500 mg today (day 1), then 250 mg for 4 days (days 2-5) PO Start: 04-20-2024 End: 04-23-2024 take 1 tablet by mouth once daily Azithromycin 250 MG tablet 250 mg PO Once Daily X 4 days 4 tablet 04/20/2024 04/23/2024 Active Start: 04-19-2024 End: 04-19-2024 take 1 dose by mouth once 500 mg, Oral, ONCE, 1 dose, On Thu04/19/24 at 2014 Start: 09-30-2022 End: 10-04-2022 Zithromax Z-Johs 250 mg oral tablet ; 2 tablets initially day one, then one tablet daily until gone Quantity: 6 Refills: 0 Ordered: 30-Sep-2022 [place] Sorensen Start: 30-Sep-2022 End: 04-Oct-2022 Generic Substitution Allowed Comments: Do not take dairy products, antacids, or iron preparations within one hour of this medication.Finish all this medication unless otherwise directed by prescriber. Start: 02-26-2021 End: 03-03-2021 take 1 tablet by mouth once daily azithromycin 500 MG tablet Take 1 tablet by mouth daily for 5 days. 5 tablet 0 02/26/2021 03/03/2021 Active Start: 02-25-2021 End: 02-25-2021 azithromycin (ZITHROMAX) tab let 500 mg Start: 02-05-2021 End: 02-09-2021 azithromycin 250 MG tablet Indications: Acute non-recurrent maxillary sinusitis Take by mouth 2 tablets (500 mg) on Day 1, then 1 tablet (250 mg) daily on Days 2-5 6 tablet 0 02/05/2021 02/09/2021 Active Start: 06-19-2020 End: 06-23-2020 azithromycin 250 MG tablet T mj 500 mg X1 then 250 mg PO Once Daily X 4 days 6 tablet 0 06/19/2020 06/23/2020 Active Start: 04-25-2020 End: 04-30-2020 azithromycin 250 MG tablet T mj 500 mg X1 then 250 mg PO Once Daily X 4 days 6 tablet 0 04/25/2020 04/30/2020 Active Start: 12-20-2018 End: 12-25-2018 azithromycin 250 MG Tab tabl et Take 2 tablets (500 mg) on Day 1, then 1 tablet (250 mg) daily on Days 2-5 6 tablet 0 12/20/2018 12/25/2018 Active Comment on above: Do not take dairy pr oducts, antacids, or iron preparations within one hour of this medication.Finish all this medication unless otherwise directed by prescriber. azithromycin (ZITHROMAX) 500 mg in sodium chloride 0.9% 250 mL (total volume) IVPB (1 source) Start: 2020 End: 2020 take 500 mg intravenously every twenty-four hours azithromycin (ZITHROMAX) 500 mg in sodium chloride 0.9% 250 mL (total volume) IVPB B-Complex With Vitamin C tablet (6 sources) Start: 2023 End: 2023 B-Complex With Vitamin C tablet Discontinued 1 {tbl} PO DAILY September 10, 2023 1:00am March 11, 2024 2:19pm bacitracin zinc 0.5 unt/mg topical ointment (1 source) Start: 2024 End: 2024 1 Application, Topical, Once, On Thu10/24/24 at 0830, For 1 dose, Apply to: LEG benzonatate 200 mg oral capsule (20 sources) Non-narcotic Antitussive Start: 2023 End: 2023 take 1 capsule by mouth three times daily as needed for cough Benzonatate 200 mg capsule Discontinued 200 mg PO 3 TIMES DAILY NEEDED as needed for cough February 25, 2024 12:00am March 11, 2024 2:19pm Start: 08-05-2023 End: 01-12-2024 take 1 capsule by mouth three times daily as needed for cough Benzonatate 200 mg capsule Discontinued 200 mg PO THREE TIMES A DAY as needed for cough 90 3 September 10, 2023 12:17pm January 12, 2024 9:15am Start: 06-19-2020 take 1 capsule by mo [facility] three times daily as needed for cough benzonatate (Tessalon Perles) 100 MG capsule Take 1 capsule by mouth 3 times daily as needed for Cough. 21 capsule 0 06/19/2020 Active calcium ascorbate 500 mg oral tablet (19 sources) Start: 01-08-2022 End: 07-07-2022 take 1 tablet by mouth once daily Ascorbate Calcium (Vitamin C) 500 mg tablet Discontinued 500 mg PO DAILY January 08, 2022 12:00am July 07, 2022 11:54am calcium chloride 0.0014 meq/ml / potassium chloride 0.004 meq/ml / sodium chloride 0.103 meq/ml / sodium lactate 0.028 meq/ml injectable solution (6 sources) Start: 02-02-2024 End: 02-03-2024 100 ml calcium gluconate 20 mg/ml injection (2 sources) Start: 02-02-2024 End: 02-09-2024 cefdinir 300 mg oral capsule (19 sources) Cephalosporin Antibacterial Start: 02-18-2021 End: 03-12-2021 take 1 capsule by mouth twice daily Cefdinir 300 mg capsule Discontinued 300 mg PO TWICE A DAY 10 5 0 February 18, 2021 12:00am March 12, 2021 10:45am cephalexin 500 mg oral capsule (13 sources) Cephalosporin Antibacterial Start: 08-23-2022 End: 01-05-2023 take 1 capsule by mouth twice daily Cephalexin 500 mg capsule Discontinued 500 mg PO TWICE A DAY 12 0 August 23, 2022 1:00am January 05, 2023 7:36am chlorhexidine gluconate 1.2 mg/ml mouthwash (6 sources) Start: 01-26-2024 End: 02-09-2024 cholecalciferol 9.52 unt/ml / glucose 357 mg/ml oral gel (2 sources) Vitamin D Start: 02-02-2024 End: 02-09-2024 ciprofloxacin 250 mg oral tablet (2 sources) Quinolone Antimicrobial Start: 01-28-2024 End: 02-09-2024 24 hr dilTIAZem hydrochloride 120 mg extended release oral capsule (10 sources) Calcium Channel Morteza Start: 12-16-2023 End: 03-11-2024 take 1 capsule by mouth once daily Diltiazem Hcl 120 mg capsule,extended release 24hr Discontinued 120 mg PO DAILY 90 December 16, 2023 12:00am March 11, 2024 2:19pm 1 ml diphenhydrAMINE hydrochloride 50 mg/ml cartridge (2 sources) Histamine-1 Receptor Antagonist Start: 05-03-2020 End: 05-03-2020 diphenhydrAMINE (BENADRYL) injection 12.5 mg Start: 02-18-2020 End: 02-18-2020 diphenhydrAMINE (BENADRYL) i njection 25 mg 250 ml DOBUTamine 2 mg/ml injection (2 sources) beta-Adrenergic Agonist Start: 06-20-2020 End: 06-21-2020 DOBUTamine in dextrose 5% (DOBUTREX) 500 mg/250 ml premix infusion Start: 12-15-2018 End: 12-16-2018 DOBUTamine in dextrose 5% (D OBUTREX) 500 mg/250 ml premix infusion docusate sodium 50 mg / sennosides, snf 8.6 mg oral tablet (2 sources) Start: 02-02-2024 End: 02-09-2024 doxycycline hyclate 100 mg oral tablet (20 sources) Tetracycline- class Drug Start: 11-14-2024 End: 03-01-2025 take 1 tablet by mouth twice daily Doxycycline Hyclate 100 mg tablet Discontinued 100 mg PO TWICE A DAY November 14, 2024 12:00am March 01, 2025 1:08pm Start: 02-22-2024 End: 02-23-2024 100 mg, Oral, 2 times daily, First dose on Thu02/22/24 at 1445, Take with at least 8 ounces (large glass) of water, do not lie down for 30 minutes after, Suspected Indication (Select all that apply): COPD Exacerbation Start: 02-11-2024 End: 03-11-2024 take 1 tablet by mouth twice daily Doxycycline Hyclate 100 mg tablet Discontinued 100 mg PO TWICE A DAY February 11, 2024 12:00am March 11, 2024 2:19pm Start: 05-11-2023 take 1 capsule by mo ut twice daily doxycycline (Vibramycin) 100 mg capsule Take 1 capsule (100 mg) by mouth 2 times a day. 05/11/2023 Active Start: 05-11-2023 End: 09-10-2023 take 1 tablet by mouth twice daily Doxycycline Hyclate 100 mg tablet Discontinued 100 mg PO TWICE A DAY May 11, 2023 12:00am September 10, 2023 12:05pm Smoking greater than 40 pack years Nicotine dependence, cigarettes, uncomplicated Start: 09-22-2019 End: 10-02-2019 take 1 capsule by mouth twice daily doxycycline hyclate 100 MG capsule Indications: Chronic bronchitis, unspecified chronic bronchitis type Take 1 capsule by mouth 2 times daily for 10 days. 20 capsule 0 09/22/2019 10/02/2019 Active Start: 06-01-2019 End: 06-01-2019 doxycycline hyclate (VIBRAMY MICHAEL) capsule 100 mg Start: 06-01-2019 End: 06-08-2019 take 1 capsule by mouth twice daily doxycycline hyclate 100 MG Cap capsule Take 1 capsule by mouth 2 times daily for 7 days. 14 capsule 0 06/01/2019 06/08/2019 Active Start: 07-01-2018 End: 06-01-2019 doxycycline hyclate 100 MG C ap capsule Take 160 mg by mouth as needed. 0 07/01/2018 06/01/2019 Discontinued (Therapy completed) 0.4 ml enoxaparin sodium 100 mg/ml prefilled syringe (1 source) Low Molecular Weight Heparin Start: 02-26-2021 End: 02-26-2021 enOXAParin (LOVENOX) injection 40 mg EPINEPHrine 5mg in 0.9% sodium chloride 250 mL infusion (weight-based) (2 sources) Start: 02-02-2024 End: 02-03-2024 2 ml fentaNYL 0.05 mg/ml injection (2 sources) Opioid Agonist Start: 02-18-2024 End: 02-18-2024 IntraVENous, As needed, Starting on [place] 02/18/24 at 1502, Intraprocedure ferrous sulfate 325 mg oral tablet (20 sources) Start: 01-08-2022 End: 04-27-2024 take 1 tablet by mouth once daily Ferrous Sulfate (Feosol) 325 mg (65 mg iron) tablet Discontinued 325 mg PO DAILY January 08, 2022 12:00am April 27, 2024 1:09pm supplement take 1 tablet by mouth once jo-ann y Ferrous Sulfate (IRON PO) Take 1 tablet by mouth daily. Suspended take 1 tablet by mouth once jo-ann y Ferrous Sulfate (IRON PO) Take 1 tablet by mouth daily. Active fluticasone propionate 0.05 mg/actuat metered dose nasal spray (20 sources) Corticosteroid Start: 09-24-2021 End: 11-14-2024 take 50 ug nasal route once daily Fluticasone Propionate (Flonase Allergy Relief) 50 mcg/actuation spray,suspension Discontinued 2 NMA INTRANASAL DAILY 16 March 21, 2022 5:31pm May 22, 2022 9:29am administer into each nostril Start: 09-24-2021 End: 09-10-2023 take 1 spray(s) nasal route once daily Fluticasone Propionate (Flonase Allergy Relief) 50 mcg/actuation spray,suspension Discontinued 2 SPRAY INTRANASAL DAILY March 21, 2022 5:31pm May 22, 2022 9:29am administer into each nostril Start: 02-05-2021 End: 02-26-2021 take 2 spray(s) nasal route once daily fluticasone (Flonase) 50 mcg/actuation nasal spray Administer 2 sprays into affected nostril(s) once daily. 02/05/2021 Active Start: 02-05-2021 fluticasone 50 MCG/ACT Suspension nasal spray Indications: Non-seasonal allergic rhinitis, unspecified trigger 2 sprays by Nasal route daily. 9.9 mL 02/05/2021 Active fluticasone 50 m cg/inh nasal spray ; 1 spray(s) nasal once a day Quantity: 0 Refills: 0 Ordered: 30-Sep-2022 Alexandria Sorensen Generic Substitution Allowed 0.5 ml fondaparinux sodium 5 mg/ml prefilled syringe (2 sources) Factor Xa Inhibitor Start: 02-07-2024 End: 02-09-2024 60 actuat formoterol fumarate 0.005 mg/actuat / mometasone furoate 0.1 mg/actuat metered dose inhaler (4 sources) Corticosteroid, beta2-Adrenergic Agonist Start: 02-15-2024 End: 02-25-2024 take 2 puff(s) by mouth twice daily 2 puff, Inhalation, 2 times daily, First dose on Thu02/15/24 at 2015, @@@COMMON CANISTER@@@ Rinse mouth with water after use to reduce aftertaste and incidence of candidiasis. Do not swallow. Start: 02-03-2024 End: 02-09-2024 glucagon (rdna) 1 mg injecti on (2 sources) Antihypoglycemic Agent Start: 02-02-2024 End: 02-09-2024 150 ml glucose 50 mg/ml inje ction (4 sources) Start: 02-02-2024 End: 02-09-2024 Start: 02-02-2024 End: 02-09-2024 12 hr guaiFENesin 600 mg ext ended release oral tablet (19 sources) Start: 02-04-2024 End: 02-09-2024 Start: 12-20-2018 take 1 tablet by cristina th twice daily as needed guaiFENesin 600 MG Tab SR 12 HR tablet SR Take 1 tablet by mouth 2 times daily as needed. 30 tablet 0 12/20/2018 Active 0.5 ml heparin sodium, porcine 08017 unt/ml prefilled syringe (2 sources) Unfractionated Heparin, Anti-coagulant Start: 02-03-2024 End: 02-05-2024 100 ml insulin, regular, human 1 unt/ml injection (2 sources) Insulin Start: 02-02-2024 End: 02-03-2024 iodixanol (VISIPAQUE) 320 MG/ML injection 75 mL (3 sources) Start: 02-25-2021 End: 02-25-2021 iodixanol (VISIPAQUE) 320 MG/ML injection 75 mL Start: 02-19-2021 End: 02-19-2021 iodixanol (VISIPAQUE) 320 MG /ML injection 75 mL Start: 06-19-2020 End: 06-19-2020 iodixanol (VISIPAQUE) 320 MG /ML injection 75 mL iohexol (OMNIPAQUE) 350 MG/ML injection 75 mL (1 source) Start: 02-18-2020 End: 02-18-2020 iohexol (OMNIPAQUE) 350 MG/ML injection 75 mL 24 hr isosorbide mononitrate 30 mg extended release oral tablet (10 sources) Nitrate Vasodilator Start: 01-13-2024 End: 03-11-2024 take 1 tablet by mouth once daily, then take 1 tablet by mouth every twenty-four hours Isosorbide Mononitrate 30 mg tablet extended release 24 hr Discontinued 30 mg PO DAILY 90 3 January 13, 2024 12:00am March 11, 2024 2:19pm 1 ml ketorolac tromethamine 15 mg/ml cartridge (20 sources) Nonsteroidal Anti-inflammatory Drug, Cyclooxygenase Inhibitor Start: 02-04-2024 End: 02-05-2024 take 15 mg intravenously every six hours End: 07-11-2019 take 1 tablet by mouth every four hours as needed ketorolac 10 MG Tab Take 10 mg by mouth every 4 hours as needed. Max of 40mg/day. Max of 5 days. 0 07/11/2019 Discontinued (Therapy completed) labetalol hydrochloride 5 mg/ml injectable solution (1 source) beta-Adrenergic Morteza Start: 02-25-2021 End: 02-26-2021 take 20 mg intravenously every four hours as needed labetalol (NORMODYNE) injection 20 mg levoFLOXacin 750 mg oral tablet (20 sources) Quinolone Antimicrobial Start: 08-05-2023 End: 09-10-2023 take 1 tablet by mouth once daily Levofloxacin 750 mg tablet Discontinued 750 mg PO DAILY 4 August 05, 2023 1:00am September 10, 2023 12:05pm Start: 01-05-2023 End: 01-15-2023 take 1 tablet by mouth every twenty-four hours Levofloxacin 750 mg tablet Discontinued 750 mg PO Q24H 10 10 January 05, 2023 12:00am 2023 12:00am January 15, 2023 12:11am Start: 02-19-2021 End: 03-01-2021 take 1 tablet by mouth once daily levoFLOXacin 750 MG tablet Take 1 tablet by mouth daily for 10 days. 10 tablet 0 02/19/2021 03/01/2021 Active Start: 02-19-2021 End: 02-19-2021 levoFLOXacin (LEVAQUIN) 750 mg in dextrose 5% premix IVPB Start: 12-02-2020 End: 12-05-2020 take 1 tablet by mouth once daily levoFLOXacin 500 MG tablet Take 1 tablet by mouth daily for 3 days. 3 tablet 0 12/02/2020 12/05/2020 Active Start: 11-19-2020 End: 11-29-2020 take 1 tablet by mouth once daily levoFLOXacin 750 MG tablet Take 1 tablet by mouth daily for 10 days. 10 tablet 0 11/19/2020 11/29/2020 Active Start: 04-25-2020 End: 04-25-2020 levoFLOXacin (LEVAQUIN) 500 mg in dextrose 5% premix IVPB 10 ml lidocaine hydrochloride 10 mg/ml injection (10 sources) Antiarrhythmic, Amide Local Anesthetic Start: 02-18-2024 End: 02-18-2024 As needed, Starting on [place] 02/18/24 at 1502, Intraprocedure Start: 02-17-2024 End: 02-17-2024 As needed, Starting on Thu at 1149, Intraprocedure Start: 02-02-2024 End: 02-09-2024 Start: 10-26-2023 lidocaine 5 % Patch patch Place 1 patch on skin every 24 hours. Max of 12 hours of application then remove. 12 patch 10/26/2023 Active lisinopril 10 mg oral tablet (20 sources) Angiotensin Converting Enzyme Inhibitor Start: 04-15-2023 End: 02-09-2024 take 1 tablet by mouth twice daily Lisinopril 10 mg tablet Discontinued 10 mg PO TWICE A DAY 180 April 15, 2023 7:18pm September 10, 2023 12:05pm This is a dose increase On Hold: Hypotension Start: 12-25-2021 End: 04-15-2023 take 1 tablet by mouth once daily Lisinopril 10 mg tablet Discontinued 10 mg PO DAILY 90 February 10, 2023 10:14am April 15, 2023 7:19pm Start: 11-25-2021 End: 12-25-2021 take 1 tablet by mouth once daily Lisinopril 5 mg tablet Discontinued 5 mg PO DAILY 30 November 25, 2021 12:00am December 25, 2021 4:46pm magnesium hydroxide 80 mg/ml oral suspension (4 sources) Start: 02-02-2024 End: 02-09-2024 50 ml magnesium sulfate 40 m g/ml injection (2 sources) Start: 02-26-2021 End: 02-26-2021 magnesium sulfate 2 g/50 mL in sterile water premix IVPB 2 g 50 mL (total volume) Start: 05-03-2020 End: 05-03-2020 magnesium sulfate 2 g/50 mL in sterile water premix IVPB 2 g 50 mL (total volume) Medrol Dosepak 4 mg oral tablet (1 source) Start: 09-30-2022 Medrol Dosepak 4 mg oral tablet ; 1 kit orally once a day TAKE DIRECTED Quantity: 1 Refills: 0 Ordered: 30-Sep-2022 Alexandria Sorensen Start: 30-Sep-2022 Generic Substitution Allowed Comments: It is very important that you take or use this exactly as directed. Do not skip doses or discontinue unless directed by your doctor.Obtain medical advice before taking any non-prescription drugs as some may affect the action of this medication.Take with food or milk. Comment on above: It is very important that you take or use this exactly as directed. Do not skip doses or discontinue unless directed by your doctor.Obtain medical advice before taking any non-prescription drugs as some may affect the action of this medication.Take with food or milk. meloxicam 15 mg oral tablet (19 sources) Nonsteroidal Anti-inflammatory Drug Start: 06-04-2021 End: 11-20-2021 take 1 tablet by mouth once daily Meloxicam 15 mg tablet Discontinued 15 mg PO DAILY June 04, 2021 1:00am November 20, 2021 10:35am methylPREDNISolone 40 mg injection (8 sources) Corticosteroid Start: 04-19-2024 End: 04-19-2024 125 mg, Intravenous, ONCE, 1 dose, On Thu04/19/24 at 1900 Start: 02-25-2021 End: 02-26-2021 take 40 mg intravenously every six hours methylPREDNISolone sodium succinate (SOLU-MEDROL) injection 40 mg Start: 02-25-2021 End: 02-25-2021 methylPREDNISolone sodium davies ccinate (SOLU-MEDROL) injection 125 mg Start: 02-19-2021 End: 02-19-2021 methylPREDNISolone sodium davies ccinate (SOLU-MEDROL) injection 125 mg Start: 05-03-2020 End: 05-03-2020 methylPREDNISolone sodium davies ccinate (SOLU-MEDROL) injection 80 mg Start: 04-25-2020 End: 04-25-2020 methylPREDNISolone sodium davies ccinate (SOLU-MEDROL) injection 125 mg Start: 06-01-2019 End: 06-01-2019 methylPREDNISolone sodium davies ccinate (SOLU-MEDROL) injection 125 mg 2 ml metoclopramide 5 mg/ml prefilled syringe (1 source) Dopamine-2 Receptor Antagonist Start: 02-18-2020 End: 02-18-2020 metoclopramide (REGLAN) injection 10 mg Start: 02-18-2020 End: 02-18-2020 metoclopramide (REGLAN) inje ction 10 mg midodrine hydrochloride 5 mg oral tablet (20 sources) alpha-Adrenergic Agonist Start: 11-20-2021 End: 02-14-2022 take 2.5 mg by mouth once daily Midodrine 5 mg tablet Discontinued 2.5 mg PO DAILY November 20, 2021 11:02am February 14, 2022 9:08am Start: 11-20-2021 End: 02-14-2022 take 2.5 mg by mouth once daily Midodrine Discontinued 2.5 MG PO DAILY November 20, 2021 11:02am February 14, 2022 9:08am Start: 01-31-2021 End: 04-15-2023 take 1 tablet by mouth once daily Midodrine 5 mg tablet Discontinued 5 mg PO DAILY 90 November 12, 2022 10:02am April 15, 2023 7:16pm Start: 01-31-2021 End: 02-26-2021 take 5 mg by mouth every two hours 5 mg, Oral, 3 TIMES DAILY, EVERY 6 HOURS, First dose on Thu02/25/21 at 1945, Until Discontinued Start: 01-31-2021 take 1 tablet by cristina th three times daily, then take 1 tablet by mouth every six hours midodrine 5 MG tablet Indications: Syncope and collapse , Orthostatic hypotension Take 1 tablet by mouth 3 times daily (space doses 6 hours apart). 90 tablet 3 01/31/2021 Active Start: 08-29-2020 take 1 tablet by cristina th once daily midodrine 5 MG tablet Indications: Syncope and collapse , Orthostatic hypotension Take 1 tablet by mouth daily. 90 tablet 3 08/29/2020 Active Start: 04-12-2020 End: 04-17-2020 take 1 tablet by mouth once daily midodrine 5 MG tablet Take 1 tablet by mouth daily. 90 tablet 0 04/17/2020 Active Start: 09-22-2019 take 1 tablet by cristina th once daily midodrine 5 MG tablet Take 1 tablet by mouth daily. 90 tablet 1 09/22/2019 Active Start: 10-21-2018 End: 09-22-2019 take 0.5 tablet by mouth three times daily midodrine 5 MG Tab tablet Take 0.5 tablets by mouth 3 times daily. 90 tablet 6 10/21/2018 09/22/2019 Discontinued (Reorder) take 2 tablets by mo uth three times daily midodrine 5 mg oral tablet ; 2 tab(s) orally 3 times a day Quantity: 0 Refills: 0 Ordered: 30-Sep-2022 Alexandria Sorensen Generic Substitution Allowed take 2.5 mg by mouth three times daily midodrine 5 MG Tab tablet Take 2.5 mg by mouth 3 times daily. Active 1 ml morphine sulfate 2 mg/ml cartridge (1 source) Opioid Agonist Start: 06-19-2020 End: 06-19-2020 morphine (PF) injection 2 mg Start: 06-19-2020 End: 06-19-2020 morphine (PF) injection 2 mg mupirocin 0.02 mg/mg topical ointment (8 sources) RNA Synthetase Inhibitor Antibacterial Start: 02-02-2024 End: 02-05-2024 Start: 02-02-2024 End: 02-02-2024 Start: 01-26-2024 End: 02-09-2024 Start: 01-26-2024 mupirocin (Evangelina troban) 2 % ointment Apply liberal amount per nostril the night before surgery and then again the morning of surgery 1 g 01/26/2024 Active 1 ml naloxone hydrochloride 0.4 mg/ml injection (4 sources) Opioid Antagonist Start: 02-15-2024 End: 02-25-2024 0.4 mg, IntraVENous, Every 5 min PRN, opioid reversal, respiratory depression, Starting on Thu02/15/24 at 2013, +++ For RR Start: 02-04-2024 End: 02-09-2024 niCARdipine (Cardene) infusion 20mg in 0.9 % sodium chloride 200mL (premix) (2 sources) Start: 02-02-2024 End: 02-03-2024 nitroglycerin 0.4 mg sublingual tablet (20 sources) Nitrate Vasodilator Start: 05-23-2021 End: 10-24-2021 Nitroglycerin (Nitrostat) 0.4 mg tablet, sublingual Discontinued 0.4 MG SL every 5 to 15 minutes May 23, 2021 1:47pm October 24, 2021 3:51pm Start: 02-17-2021 End: 05-23-2021 Nitroglycerin (Nitrostat) 0. 4 mg Tablet, Sublingual Discontinued 0.4 MG SL Q5M February 17, 2021 12:00am May 23, 2021 1:47pm Start: 10-21-2018 End: 02-09-2024 Nitroglycerin (Nitrostat) 0. 4 mg tablet, sublingual Discontinued 0.4 mg SL every 5 to 15 minutes as needed for Chest Pain 11 09October 24, 2021 3:50pm November 26, 2023 2:38pm norepinephrine (Levophed) 16 mg in 0.9% sodium chloride 250 mL infusion (weight based) (premix) (2 sources) Start: 02-02-2024 End: 02-03-2024 2 ml ondansetron 2 mg/ml injection (10 sources) Serotonin-3 Receptor Antagonist Start: 02-25-2021 End: 02-26-2021 take 4 mg intravenously every four hours as needed ondansetron 4mg/2ml (ZOFRAN) injection 4 mg Start: 06-19-2020 End: 06-19-2020 ondansetron 4mg/2ml (ZOFRAN) injection 4 mg Start: 05-03-2020 End: 05-03-2020 ondansetron 4mg/2ml (ZOFRAN) injection 4 mg Start: 02-18-2020 take 1 tablet by cristina th every eight hours as needed ondansetron 4 MG Tab Dispersible tablet Take 1 tablet by mouth every 8 hours as needed for Nausea for up to [address] on tongue 12 tablet 0 02/18/2020 Active ondansetron ODT (Zofran-ODT) disintegrating tablet 4 mg (2 sources) Start: 02-15-2024 End: 02-25-2024 take 1 tablet by mouth every eight hours as needed for nausea and vomiting ondansetron ODT (Zofran-ODT) disintegrating tablet 4 mg oxyCODONE hydrochloride 5 mg oral tablet (10 sources) Opioid Agonist Start: 02-15-2024 End: 03-11-2024 take 1 tablet by mouth every six hours as needed for pain Oxycodone 5 mg tablet Discontinued 5 mg PO EVERY 6 HOURS as needed for pain (scale score 7-10) 0 February 25, 2024 12:00am March 11, 2024 2:22pm pantoprazole 20 mg delayed release oral tablet (20 sources) Proton Pump Inhibitor Start: 02-03-2024 End: 02-09-2024 Start: 02-03-2024 End: 02-03-2024 Start: 10-01-2023 End: 08-31-2024 take 1 tablet by mouth once daily Pantoprazole 20 mg tablet,delayed release (DR/EC) Discontinued 20 mg PO DAILY 90 June 30, 2024 11:07am August 31, 2024 2:50pm Start: 02-26-2021 End: 02-26-2021 pantoprazole (PROTONIX) tabl et DR 40 mg Start: 05-03-2020 End: 05-03-2020 pantoprazole (PROTONIX) inje ction 40 mg PERFLUTREN LIPID MICROSPHERE 1.3 ML/8.7ML (1 source) Start: 12-15-2018 End: 12-15-2018 PERFLUTREN LIPID MICROSPHERE 1.3 ML/8.7ML perflutren protein A microsphere (Optison) 3 mL in sodium chloride (PF) 0.9 % 10 mL IV syringe (2 sources) Start: 01-22-2024 End: 01-22-2024 0-10 mL, IntraVENous, IMG once PRN, other, Starting on Thu01/22/24 at 1357, For 1 dose, CV Procedural Medications, Draw entire 3 mL vial of perflutren protein A microspheres into 7 mL of NS in a syringe to a total volume of 10 mL. polyethylene glycol [id number] [id number] mg powder for oral solution (4 sources) Osmotic Laxative Start: 02-15-2024 End: 02-25-2024 take 17 g by mouth every twenty-four hours as needed for constipation 17 g, Oral, Daily PRN, constipation, Starting on Thu02/15/24 at 2001, 1st line for treatment of constipation - give scheduled if no bowel movement in past 24 hours. Start: 02-02-2024 End: 02-09-2024 potassium chloride 10 meq ex tended release oral tablet (3 sources) Start: 02-03-2024 End: 02-09-2024 Start: 02-26-2021 End: 02-26-2021 potassium chloride (K-DUR) t ablet ER 40 mEq potassium phosphates 30 mmol in sodium chloride 0.9%, with overfill 535 mL (total volume) IVPB (1 source) Start: 02-25-2021 End: 02-26-2021 potassium phosphates 30 mmol in sodium chloride 0.9%, with overfill 535 mL (total volume) IVPB predniSONE 10 mg oral tablet (20 sources) Start: 11-14-2024 End: 11-26-2024 Prednisone 10 mg tablet Discontinued 10 mg PO daily 30 12 0 November 14, 2024 12:00am November 25, 2024 12:00am November 26, 2024 12:09am take 4 tabs for three days, then 3 tabs for three days, then 2 tabs for three days, then 1 tab for 3 days Start: 04-19-2024 take 1 tablet by cristina th once daily predniSONE 20 MG tablet Take 1 tablet by mouth daily. 10 tablet 04/19/2024 Active Start: 02-26-2024 End: 02-28-2024 take 2 tablets by mouth once daily predniSONE (Deltasone) 20 MG tablet Take 2 tablets (40 mg) by mouth daily for 2 doses. 02/26/2024 02/28/2024 Active Start: 02-25-2024 End: 03-11-2024 take 4 tablets by mouth once daily Prednisone 10 mg tablet Discontinued 40 mg PO DAILY February 25, 2024 12:00am March 11, 2024 2:22pm inflammation Start: 02-22-2024 End: 02-25-2024 take 40 mg by mouth once daily 40 mg, Oral, Daily, Fir st dose on Thu02/22/24 at 1445, For 5 days Start: 10-08-2023 End: 10-15-2023 take 2 tablets by mouth once daily predniSONE (Deltasone) 10 mg tablet Indications: Acute cough Take 2 tablets (20 mg) by mouth once daily for 7 days. 14 tablet 0 10/08/2023 10/15/2023 Active Start: 08-23-2022 End: 03-27-2023 Prednisone 10 mg tablet Disc ontinued 10 mg PO DAILY 40 0 August 23, 2022 1:00am March 27, 2023 10:55am 4 tablets x 4 days, 3 tablets x 4 days, 2 tablets x 4 days, 1 tablet x 4 days Start: 02-26-2021 End: 03-09-2021 take 2 tablets by mouth twice daily, then take 1 tablet by mouth twice daily, then take 0.5 tablet by mouth twice daily predniSONE 20 MG tablet Take 2 tablets by mouth 2 times daily for 3 days, THEN 1 tablet 2 times daily for 4 days, THEN 0.5 tablets 2 times daily for 4 days. 24 tablet 0 02/26/2021 03/09/2021 Active Start: 02-19-2021 End: 02-26-2021 take 1 tablet by mouth once daily predniSONE 20 MG tablet Take 1 tablet by mouth daily. 10 tablet 0 02/19/2021 02/26/2021 Discontinued (Stop Taking at Discharge) Start: 12-02-2020 End: 01-10-2021 predniSONE 10 MG tablet 4 ta bs po daily x 3 days, 3 tabs po daily x 3 days, 2 tabs po daily x 3 days, 1 tab po daily x 3 days, then discontinue 30 tablet 0 12/02/2020 01/10/2021 Discontinued (Therapy completed) Start: 11-19-2020 take 1 tablet by cristina th once daily predniSONE 20 MG tablet Take 1 tablet by mouth daily. 10 tablet 0 11/19/2020 Active Start: 06-19-2020 End: 06-25-2020 take 1 tablet by mouth twice daily predniSONE 20 MG tablet Take 1 tablet by mouth 2 times daily. 10 tablet 0 06/19/2020 06/25/2020 Discontinued (Therapy completed) Start: 04-25-2020 take 1 tablet by cristina th twice daily predniSONE 20 MG tablet Take 1 tablet by mouth 2 times daily. 20 tablet 0 04/25/2020 Active Start: 08-19-2019 End: 08-22-2019 take 1 tablet by mouth twice daily predniSONE 20 MG Tab tablet Take 1 tablet by mouth 2 times daily for 3 days. 6 tablet 0 08/19/2019 08/22/2019 Active Start: 06-01-2019 End: 06-06-2019 take 2 tablets by mouth once daily predniSONE 20 MG Tab tablet Take 2 tablets by mouth daily for 5 days. 10 tablet 0 06/01/2019 06/06/2019 Active Start: 07-19-2018 End: 01-19-2019 take 2 tablets by mouth once daily predniSONE 20 MG Tab tablet Take 2 tablets by mouth daily for 3 days. 6 tablet 0 12/20/2018 12/23/2018 Active End: 07-19-2018 take 1 tablet by mouth once daily predniSONE 10 MG Tab tablet Take 10 mg by mouth daily. 07/19/2018 Discontinued prochlorperazine 5 mg/ml injectable solution (2 sources) Phenothiazine Start: 02-03-2024 End: 02-09-2024 take 5 mg intravenously every six hours as needed for nausea and vomiting 100 ml propofol 10 mg/ml injection (2 sources) General Anesthetic Start: 02-02-2024 End: 02-03-2024 rifAMPin 300 mg oral capsule (2 sources) Rifamycin Antibacterial Start: 02-06-2024 End: 02-09-2024 10 ml sodium bicarbonate 84 mg/ml injection (2 sources) Start: 02-02-2024 End: 02-02-2024 1000 ml sodium chloride 9 mg/ml injection (20 sources) Start: 02-20-2024 End: 02-25-2024 250 mL/hr, IntraVENous, Administer over 10 Minutes, As needed, For use in priming line prior to transfusion (prime via gravity) and flush line post transfusion, Starting on 02/20/24 at 2020, For 1 dose, For use in priming line prior to transfusion (prime via gravity) and flush line post transfusion ONLY. Discontinue once line has been cleared of remaining blood product. Start: 02-15-2024 End: 02-25-2024 take 5-40 mL intravenously every twelve hours 5-40 mL, IntraVENous, Every 12 hours, First dose on Thu02/15/24 at 2014, For Line Patency: Peripheral IV = 5 mL; Midline or Central Line = 10 mL/lumen. If following IV push medication, administer flush at same rate as the IV push. Flush volume is determined by type of infusion therapy being given. For non-viscous solutions use: Peripheral IV = 5 mL Midline or Central Line = 10 mL/lumen For viscous solutions (i.e. blood components, parenteral nutrition, contrast media, or after obtaining blood sample) use: Peripheral IV = 10 mL Midline or Central Line = 20 mL/lumen Start: 02-15-2024 End: 02-25-2024 Start: 02-15-2024 End: 02-25-2024 Start: 02-02-2024 End: 02-09-2024 Start: 02-02-2024 End: 02-04-2024 Start: 02-02-2024 End: 02-05-2024 take 5-40 mL intraluminal route every eight hours Start: 02-02-2024 End: 02-02-2024 Start: 02-25-2021 End: 02-26-2021 sodium chloride 0.9% IV solu tion Start: 02-25-2021 End: 02-26-2021 take 5 mL intravenously once 5 mL, Intravenous, ADMINI STER DIRECTED, Starting on Thu02/25/21 at 1939, Until Thu02/26/21 at 1602, Flush, per IV Care Guidelines Start: 02-25-2021 End: 02-25-2021 sodium chloride 0.9% IV solu tion 500 mL Start: 02-19-2021 End: 02-19-2021 sodium chloride 0.9% IV solu tion 75 mL Start: 02-15-2021 End: 02-15-2021 sodium chloride 0.9% IV solu tion 500 mL Start: 02-15-2021 End: 02-15-2021 sodium chloride 0.9% IV solu tion 1,000 mL Start: 06-19-2020 End: 06-19-2020 sodium chloride 0.9% IV solu tion 75 mL Start: 04-25-2020 End: 04-25-2020 sodium chloride 0.9% IV solu tion Start: 02-18-2020 End: 02-18-2020 sodium chloride 0.9% IV solu tion 75 mL Start: 02-18-2020 End: 02-18-2020 sodium chloride 0.9% IV solu tion 5 ml sugammadex 100 mg/ml injection (2 sources) Start: 02-02-2024 End: 02-02-2024 sulfamethoxazole 800 mg / trimethoprim 160 mg oral tablet (10 sources) Dihydrofolate Reductase Inhibitor Antibacterial, Sulfonamide Antimicrobial Start: 02-25-2024 End: 03-11-2024 Sulfamethoxazole-Tri methoprim (Bactrim Ds) 800-160 mg tablet Discontinued 1 {tbl} PO TWICE A DAY February 25, 2024 12:00am March 11, 2024 2:22pm infection Start: 06-06-2020 End: 06-06-2020 sulfamethoxazole-trimethopri m (BACTRIM DS) 800-160 MG per tablet 1 tablet Start: 06-06-2020 End: 06-13-2020 take 1 tablet by mouth twice daily sulfamethoxazole-trimethoprim (Bactrim D S) 800-160 MG per tablet Take 1 tablet by mouth 2 times daily for 7 days. 14 tablet 0 06/06/2020 06/13/2020 Active sulfamethoxazole-trimethopri m (Bactrim) 336 mg of trimethoprim in dextrose 5 % 500 mL IVPB (2 sources) Start: 02-23-2024 End: 02-25-2024 336 mg of trimethoprim (rounded from 339 mg of trimethoprim = 5 mg/kg of trimethoprim 67.8 kg), IntraVENous, at 333.3 mL/hr, Administer over 90 Minutes, Every 8 hours, First dose on Thu02/23/24 at 0700, Suspected Indication (Select all that apply): Pneumonia (HAP) 60 actuat tiotropium 0.0025 mg/actuat inhalation spray (20 sources) Anticholinergic Start: 02-03-2024 End: 02-09-2024 Start: 12-31-2023 take 2 puff(s) by in halation once daily Spiriva Respimat 2.5 MCG/ACT inhaler 2 puffs daily. 12/31/2023 Active Start: 12-31-2023 Spiriva Respim at 2.5 MCG/ACT inhaler 12/31/2023 Active Start: 11-18-2021 End: 08-31-2024 take 2.5 ug by inhalation once daily Tiotropium [place] (Spiriva Respimat) 2.5 mcg/actuation mist Discontinued 2 NMA INHALATION DAILY 3 3 March 31, 2024 12:45pm August 31, 2024 2:50pm breathing Start: 11-18-2021 End: 09-10-2023 take 1 puff(s) by inhalation once daily Tiotropium [place] (Spiriva Respimat) 2.5 mcg/actuation mist Discontinued 2 PUFF INHALATION DAILY October 23, 2022 4:15pm April 06, 2023 10:15am Start: 07-15-2021 End: 11-18-2021 take 2.5 ug by inhalation once daily Tiotropium [place] (Spiriva Respimat) 2.5 mcg/actuation mist Discontinued 2 NMA INHALATION DAILY 4 July 15, 2021 5:38pm November 18,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 REED ([id number])[address] Hematocrit (Bld) [Volume fraction] 25.4 % Low 40.0-52.0 [facility] Comment on above: Performed By: #### L [id number] ####Popcorn Vendor: SILVA REED ([id number])[facility])[address] [place] [address] Hemoglobin (Bld) [Mass/Vol] 7.9 g/dL Low 13.0-18.0 [facility] Comment on above: Performed By: #### L [id number] ####Popcorn Vendor: SILVA REED ([id number])[address] MCH (RBC) [Entitic mass] 28.5 pg Normal 26.0-34.0 [facility] Comment on above: Performed By: #### L [id number] ####Popcorn Vendor: SILVA REED ([id number])[facility])[address] [place] [address] MCHC 31.1 % Normal 30.5-36.0 [facility] Comment on above: Performed By: #### L [id number] ####Popcorn Vendor: SILVA REED ([id number])[facility])[address] [place] [address] MCV (RBC) [Entitic vol] 91.7 fL Normal 77.0-99.0 [facility] Comment on above: Performed By: #### L [id number] ####Popcorn Vendor: SILVA REED ([id number])[facility])[address] [place] [address] Platelet mean volume (Bld) [Entitic vol] 11.0 fL Normal 9.0-12.7 [facility] Comment on above: Performed By: #### L [id number] ####Popcorn Vendor: SILVA REED ([id number])[facility])[address] [place] [address] Platelets (Bld) [#/Vol] 220 10*3/uL Normal 140-440 [facility] Comment on above: Performed By: #### L [id number] ####Popcorn Vendor: SILVA REED ([id number])[facility] ([facility])[address] [place] [address] RBC (Bld) [#/Vol] 2.77 10*6/uL Low 4.40-5.90 [facility] Comment on above: Performed By: #### L [id number] ####Popcorn Vendor: SILVA REED ([id number])[facility])[address] [place] [address] WBC (Bld) [#/Vol] 6.0 10*3/uL Normal 3.6-10.7 [facility] Comment on above: Performed By: #### L [id number] ####Popcorn Vendor: SILVA REED ([id number])[facility] ([facility])[address] [place] [address] CBC panel Auto (Bld)on 02-24 Erythrocyte distribution width (RBC) [Ratio] 15.9 % High 11.5 - 15.0 % [facility] Hematocrit (Bld) [Volume fraction] 25.4 % Low 40.0 - 52.0 % [facility] Hemoglobin (Bld) [Mass/Vol] 7.9 g/dL Low 13.0 - 18.0 g/dL [facility] Interpretation and review of laboratory results Abnormal [facility] MCH (RBC) [Entitic mass] 28.5 pg 26. 0 - 34.0 pg [facility] MCHC (RBC) [Mass/Vol] 31.1 % 30.5 - 36.0 % [facility] MCV (RBC) [Entitic vol] 91.7 fL 77.0 - 99.0 fL [facility] Platelet mean volume (Bld) [Entitic vol] 11.0 fL 9.0 - 12.7 fL [facility] Platelets (Bld) [#/Vol] 220 10*3/uL 140 - 440 10*3/uL [facility] RBC (Bld) [#/Vol] 2.77 10*6/uL Low 4.40 - 5.9 0 10*6/uL [facility] WBC (Bld) [#/Vol] 6.0 10*3/uL 3.6 - 10.7 10*3/uL [facility] Laboratory - Microbiology an d Antimicrobial susceptibilityOrdered By: Elyse Duenas on 02-25-2024 Bacteria identified Aer cx Nom (Lower resp) Few respiratory severiano present. [facility] Bacteria identified Aer cx Nom (Lower resp) Moderate Serratia marcescens Abnormal [facility] Comment on above: This organism posses ses an ampC beta-lactamase. For serious infections outside of the urinary tract, third generation cephalosporins may not be effective, even if test results indicate the organism is susceptible. Nursing Noteon 02-25-2024 Nursing Note Taken to facility by Mejia Kenyon Normal [facility] Progress Noteon 02-25-2024 Progress Note Normal [facility] Progress Note Normal [facility] Progress Note PHYSICAL THERAPY [facility] Name/MRN: Darin Breaux ([id number]) Date: 02/25/2024 PT attempted this AM pt requesting to wait until after he gets his breakfast. Will re-attempt at a later time. Latanya Hutchins, PT [facility] Progress Note Normal [facility] BASIC METABOLIC PANELon Anion gap [Moles/Vol] 7 mmol/L Normal 3-[address] [facility] Comment on above: Performed By: #### L [id number], [id number], LAB15 ####Popcorn Vendor: SILVA REED ([id number])[facility])[address] [place] [address] Calcium [Mass/Vol] 9.4 mg/dL Normal 8.4-10.4 [facility] Comment on above: Performed By: #### L AB103, [id number], LAB15 ####Popcorn Vendor: SILVA REED ([id number])[facility] ([facility])[address] [place] [address] Chloride [Moles/Vol] 101 mmol/L Normal 98-107 [facility] Comment on above: Performed By: #### L AB103, [id number], LAB15 ####Popcorn Vendor: SILVA REED ([id number])[facility])[address] [place] [address] CO2 [Moles/Vol] 23 mmol/L Normal 22-30 [facility] Comment on above: Performed By: #### L AB103, [id number], LAB15 ####Popcorn Vendor: SILVA REED ([id number])[facility])[address] [place] [address] Creatinine [Mass/Vol] 1.11 mg/dL Normal 0.66-1.[address] [facility] Comment on above: Performed By: #### L AB103, [id number], LAB15 ####Popcorn Vendor: SILVA REED ([id number])[facility])[address] [place] [address] GLOMERULAR FILTRATION RATE ML/MIN/1.73 SQ M.PREDICTED 68.0 mL/min/1.73m*2 Normal >60.0 [facility] Comment on above: Result Comment: Calc ulation based on the Chronic Kidney Disease Epidemiology Collaboration (CKD-EPI) equation refit without adjustment for race Performed By: #### L AB103, [id number], LAB15 ####Popcorn Vendor: SILVA REED ([id number])[facility] ([facility])[address] [place] [address] Glucose [Mass/Vol] 118 mg/dL High 70-100 [facility] Comment on above: Performed By: #### L AB103, [id number], LAB15 ####Popcorn Vendor: SILVA REED ([id number])[facility])[address] [place] [address] Potassium [Moles/Vol] 4.7 mmol/L Normal 3.5-5.[address] [facility] Comment on above: Performed By: #### L AB103, [id number], LAB15 ####Popcorn Vendor: SILVA REED ([id number])[facility] ([facility])[address] [place] [address] Sodium [Moles/Vol] 132 mmol/L Low 135-145 [facility] Comment on above: Performed By: #### L AB103, [id number], LAB15 ####Popcorn Vendor: SILVA REED ([id number])[facility] ([facility])[address] [place] [address] Urea nitrogen [Mass/Vol] 32 mg/dL High 9-20 [facility] Comment on above: Performed By: #### L AB103, [id number], LAB15 ####Popcorn Vendor: SILVA REED ([id number])[facility] ([facility])[address] [place] [address] Basic metabolic 1998 panelon 02-24-2024 Anion gap [Moles/Vol] 7 mmol/L 3 - 13 mmol/L [facility] Calcium [Mass/Vol] 9.4 mg/dL 8.4 - 10. 4 mg/dL [facility] Chloride [Moles/Vol] 101 mmol/L 98 - 10 7 mmol/L [facility] CO2 [Moles/Vol] 23 mmol/L 22 - 30 mmol/L [facility] Creatinine [Mass/Vol] 1.11 mg/dL 0.66 - 1.25 mg/dL [facility] GFR/1.73 sq M.predicted (S/P/Bld) [Vol rate/Area] 68.0 mL/min - PINF [facility] Comment on above: Calculation based on the Chronic Kidney Disease Epidemiology Collaboration (CKD-EPI) equation refit without adjustment for race Glucose [Mass/Vol] 118 mg/dL High 70 - 100 mg/dL [facility] Interpretation and review of laboratory results Abnormal [facility] Potassium [Moles/Vol] 4.7 mmol/L 3.5 - 5.1 mmol/L [facility] Sodium [Moles/Vol] 132 mmol/L Low 135 - 145 mmol/L [facility] Urea nitrogen [Mass/Vol] 32 mg/dL High 9 - 20 mg/d L [facility] CARECOORDon 02-24-2024 [facility] Completed transportation and placed on a will call for potential discharge on 02/25/24. Social work to follow. Normal [facility] CARECOORD Normal [facility] CBC (HEMOGRAM)on 02-24-2024 Erythrocyte distribution width (RBC) [Ratio] 15.6 % High 11.5-15.0 [facility] Comment on above: Performed By: #### L [id number] ####Popcorn Vendor: SILVA REED ([id number])[facility])[address] [place] [address] Hematocrit (Bld) [Volume fraction] 25.1 % Low 40.0-52.0 [facility] Comment on above: Performed By: #### L [id number] ####Popcorn Vendor: SILVA REED ([id number])[address] Hemoglobin (Bld) [Mass/Vol] 8.1 g/dL Low 13.0-18.0 [facility] Comment on above: Performed By: #### L [id number] ####Popcorn Vendor: SILVA REED ([id number])[address] MCH (RBC) [Entitic mass] 29.1 pg Normal 26.0-34.0 [facility] Comment on above: Performed By: #### L [id number] ####Popcorn Vendor: SILVA REED ([id number])[address] MCHC 32.3 % Normal 30.5-36.0 [facility] Comment on above: Performed By: #### L [id number] ####Popcorn Vendor: SILVA REED ([id number])[address] MCV (RBC) [Entitic vol] 90.3 fL Normal 77.0-99.0 [facility] Comment on above: Performed By: #### L [id number] ####Popcorn Vendor: SILVA REED ([id number])[facility] ([facility])[address] [place] [address] Platelet mean volume (Bld) [Entitic vol] 11.2 fL Normal 9.0-12.7 [facility] Comment on above: Performed By: #### L [id number] ####Popcorn Vendor: SILVA REED ([id number])[facility] ([facility])[address] [place] [address] Platelets (Bld) [#/Vol] 218 10*3/uL Normal 140-440 [facility] Comment on above: Performed By: #### L [id number] ####Popcorn Vendor: SILVA REED ([id number])[facility] ([facility])[address] [place] [address] RBC (Bld) [#/Vol] 2.78 10*6/uL Low 4.40-5.90 [facility] Comment on above: Performed By: #### L [id number] ####Popcorn Vendor: SILVA REED ([id number])[facility] ([facility])[address] [place] [address] WBC (Bld) [#/Vol] 6.4 10*3/uL Normal 3.6-10.7 [facility] Comment on above: Performed By: #### L [id number] ####Popcorn Vendor: SILVA REED ([id number])[facility])[address] [place] [address] CBC panel Auto (Bld)on 02-23 Erythrocyte distribution width (RBC) [Ratio] 15.6 % High 11.5 - 15.0 % [facility] Hematocrit (Bld) [Volume fraction] 25.1 % Low 40.0 - 52.0 % [facility] Hemoglobin (Bld) [Mass/Vol] 8.1 g/dL Low 13.0 - 18.0 g/dL [facility] Interpretation and review of laboratory results Abnormal [facility] MCH (RBC) [Entitic mass] 29.1 pg 26. 0 - 34.0 pg [facility] MCHC (RBC) [Mass/Vol] 32.3 % 30.5 - 36.0 % [facility] MCV (RBC) [Entitic vol] 90.3 fL 77.0 - 99.0 fL [facility] Platelet mean volume (Bld) [Entitic vol] 11.2 fL 9.0 - 12.7 fL [facility] Platelets (Bld) [#/Vol] 218 10*3/uL 140 - 440 10*3/uL [facility] RBC (Bld) [#/Vol] 2.78 10*6/uL Low 4.40 - 5.9 0 10*6/uL [facility] WBC (Bld) [#/Vol] 6.4 10*3/uL 3.6 - 10.7 10*3/uL [facility] Laboratory - Chemistry and C hemistry - challengeon 02-24-2024 Magnesium [Mass/Vol] 2.1 mg/dL 1.6 - 2 .3 mg/dL [facility] MAGNESIUMon 02-24-2024 Magnesium [Mass/Vol] 2.1 mg/dL Normal 1.6-2.3 [facility] Comment on above: Performed By: #### L [id number], [id number], LAB15 ####Popcorn Vendor: SILVA REED ([id number])[address] No Panel Informationon 02-23 Interpretation and review of laboratory results Normal [facility] PHOSPHORUSon 02-24-2024 Phosphate [Mass/Vol] 3.5 mg/dL Normal 2.5-4.5 [facility] Comment on above: Performed By: #### L AB103, [id number], LAB15 ####Popcorn Vendor: SILVA REED ([id number])[facility] ([facility])[address] [place] [address] Phosphate [Moles/Vol]on Phosphate [Mass/Vol] 3.5 mg/dL 2.5 - 4 .5 mg/dL [facility] Progress Noteon 02-24-[address] [facility] Progress Note [facility] Progress Note Normal [facility] CARECOORDon 02-23-2024 CARECOORD Normal [facility] CBC (HEMOGRAM)on 02-23-2024 Erythrocyte distribution width (RBC) [Ratio] 15.5 % High 11.5-15.0 [facility] Comment on above: Performed By: #### L [id number] ####Popcorn Vendor: SILVA REED ([id number])[facility])[address] [place] [address] Hematocrit (Bld) [Volume fraction] 28.4 % Low 40.0-52.0 [facility] Comment on above: Performed By: #### L [id number] ####Popcorn Vendor: SILVA REED ([id number])[facility])[address] [place] [address] Hemoglobin (Bld) [Mass/Vol] 8.8 g/dL Low 13.0-18.0 [facility] Comment on above: Performed By: #### L [id number] ####Popcorn Vendor: SILVA REED ([id number])[facility])[address] [place] [address] MCH (RBC) [Entitic mass] 28.5 pg Normal 26.0-34.0 [facility] Comment on above: Performed By: #### L [id number] ####Popcorn Vendor: SILVA REED ([id number])[facility])[address] [place] [address] MCHC 31.0 % Normal 30.5-36.0 [facility] Comment on above: Performed By: #### L [id number] ####Popcorn Vendor: SILVA REED ([id number])[facility] ([facility])[address] [place] [address] MCV (RBC) [Entitic vol] 91.9 fL Normal 77.0-99.0 [facility] Comment on above: Performed By: #### L [id number] ####Popcorn Vendor: SILVA REED ([id number])[facility])[address] [place] [address] Platelet mean volume (Bld) [Entitic vol] 11.1 fL Normal 9.0-12.7 [facility] Comment on above: Performed By: #### L [id number] ####Popcorn Vendor: SILVA REED ([id number])[facility])[address] [place] [address] Platelets (Bld) [#/Vol] 233 10*3/uL Normal 140-440 [facility] Comment on above: Performed By: #### L [id number] ####Popcorn Vendor: SILVA REED ([id number])[facility] ([facility])[address] [place] [address] RBC (Bld) [#/Vol] 3.09 10*6/uL Low 4.40-5.90 [facility] Comment on above: Performed By: #### L [id number] ####Popcorn Vendor: SILVA REED ([id number])[facility])[address] [place] [address] WBC (Bld) [#/Vol] 5.2 10*3/uL Normal 3.6-10.7 [facility] Comment on above: Performed By: #### L [id number] ####Popcorn Vendor: SILVA REED ([id number])[facility])[address] [place] [address] CBC panel Auto (Bld)on 02-22 Erythrocyte distribution width (RBC) [Ratio] 15.5 % High 11.5 - 15.0 % [facility] Hematocrit (Bld) [Volume fraction] 28.4 % Low 40.0 - 52.0 % [facility] Hemoglobin (Bld) [Mass/Vol] 8.8 g/dL Low 13.0 - 18.0 g/dL [facility] Interpretation and review of laboratory results Abnormal [facility] MCH (RBC) [Entitic mass] 28.5 pg 26. 0 - 34.0 pg [facility] MCHC (RBC) [Mass/Vol] 31.0 % 30.5 - 36.0 % [facility] MCV (RBC) [Entitic vol] 91.9 fL 77.0 - 99.0 fL [facility] Platelet mean volume (Bld) [Entitic vol] 11.1 fL 9.0 - 12.7 fL [facility] Platelets (Bld) [#/Vol] 233 10*3/uL 140 - 440 10*3/uL [facility] RBC (Bld) [#/Vol] 3.09 10*6/uL Low 4.40 - 5.9 0 10*6/uL [facility] WBC (Bld) [#/Vol] 5.2 10*3/uL 3.6 - 10.7 10*3/uL [facility] IDNon 02-23-2024 IDN Normal [facility] Progress Noteon 02-23-[address] [facility] Progress Note Normal [facility] Progress Note Normal [facility] Progress Note Normal [facility] BASIC METABOLIC PANELon Anion gap [Moles/Vol] 6 mmol/L Normal 3-13 [facility] Comment on above: Performed By: #### L [id number] ####Popcorn Vendor: SILVA REED ([id number])[facility] ([facility])[address] [place] [address] [place] Calcium [Mass/Vol] 9.1 mg/dL Normal 8.4-10.4 [facility] Comment on above: Performed By: #### L [id number] ####Popcorn Vendor: SILVA REED ([id number])[facility] ([facility])[address] [place] [address] [place] Chloride [Moles/Vol] 103 mmol/L Normal 98-107 [facility] Comment on above: Performed By: #### L AB15 ####Popcorn Vendor: SILVA REED ([id number])[facility] ([facility])[address] [place] [address] [place] CO2 [Moles/Vol] 27 mmol/L Normal 22-30 [facility] Comment on above: Performed By: #### L AB15 ####Popcorn Vendor: SILVA REED ([id number])[facility] ([facility])[address] [place] [address] [place] Creatinine [Mass/Vol] 1.12 mg/dL Normal 0.66-1.[address] [facility] Comment on above: Performed By: #### L AB15 ####Popcorn Vendor: SILVA REED ([id number])[facility])[address] [place] [address] GLOMERULAR FILTRATION RATE ML/MIN/1.73 SQ M.PREDICTED 67.2 mL/min/1.73m*2 Normal >60.0 [facility] Comment on above: Result Comment: Calc ulation based on the Chronic Kidney Disease Epidemiology Collaboration (CKD-EPI) equation refit without adjustment for race Performed By: #### L AB15 ####Popcorn Vendor: SILVA REED ([id number])[facility] ([facility])[address] [place] [address] Glucose [Mass/Vol] 106 mg/dL High 70-100 [facility] Comment on above: Performed By: #### L AB15 ####Popcorn Vendor: SILVA REED ([id number])[facility] ([facility])[address] [place] [address] Potassium [Moles/Vol] 4.3 mmol/L Normal 3.5-5.[address] [facility] Comment on above: Performed By: #### L AB15 ####Popcorn Vendor: SILVA REED ([id number])[facility] ([facility])[address] [place] [address] Sodium [Moles/Vol] 136 mmol/L Normal 135-145 [facility] Comment on above: Performed By: #### L AB15 ####Popcorn Vendor: SILVA REED ([id number])[facility] ([facility])[address] [place] [address] [place] Urea nitrogen [Mass/Vol] 35 mg/dL High 9-20 [facility] Comment on above: Performed By: #### L AB15 ####Popcorn Vendor: SILVA REED ([id number])[facility] ([facility])[address] [place] [address] Basic metabolic 1998 panelon 02-22-2024 Anion gap [Moles/Vol] 6 mmol/L 3 - 13 mmol/L [facility] Calcium [Mass/Vol] 9.1 mg/dL 8.4 - 10. 4 mg/dL [facility] Chloride [Moles/Vol] 103 mmol/L 98 - 10 7 mmol/L [facility] CO2 [Moles/Vol] 27 mmol/L 22 - 30 mmol/L [facility] Creatinine [Mass/Vol] 1.12 mg/dL 0.66 - 1.25 mg/dL [facility] GFR/1.73 sq M.predicted (S/P/Bld) [Vol rate/Area] 67.2 mL/min - PINF [facility] Comment on above: Calculation based on the Chronic Kidney Disease Epidemiology Collaboration (CKD-EPI) equation refit without adjustment for race Glucose [Mass/Vol] 106 mg/dL High 70 - 100 mg/dL [facility] Interpretation and review of laboratory results Abnormal [facility] Potassium [Moles/Vol] 4.3 mmol/L 3.5 - 5.1 mmol/L [facility] Sodium [Moles/Vol] 136 mmol/L 135 - 145 mmol/L [facility] Urea nitrogen [Mass/Vol] 35 mg/dL High 9 - 20 mg/d L [facility] CARECOORDon 02-22-2024 CARECOCONOWINGO Normal [facility] Normal [facility] Normal [facility] CBC (HEMOGRAM)on 02-22-2024 Erythrocyte distribution width (RBC) [Ratio] 16.0 % High 11.5-15.0 [facility] Comment on above: Performed By: #### L [id number] ####Popcorn Vendor: SILVA REED ([id number])[address] Hematocrit (Bld) [Volume fraction] 27.9 % Low 40.0-52.0 [facility] Comment on above: Performed By: #### L [id number] ####Popcorn Vendor: SILVA REED ([id number])[address] Hemoglobin (Bld) [Mass/Vol] 8.6 g/dL Low 13.0-18.0 [facility] Comment on above: Performed By: #### L [id number] ####Popcorn Vendor: SILVA REED ([id number])[facility] ([facility])[address] [place] [address] MCH (RBC) [Entitic mass] 29.4 pg Normal 26.0-34.0 [facility] Comment on above: Performed By: #### L [id number] ####Popcorn Vendor: SILVA REED ([id number])[facility])[address] [place] [address] MCHC 30.8 % Normal 30.5-36.0 [facility] Comment on above: Performed By: #### L [id number] ####Popcorn Vendor: SILVA REED ([id number])[facility])[address] [place] [address] MCV (RBC) [Entitic vol] 95.2 fL Normal 77.0-99.0 [facility] Comment on above: Performed By: #### L [id number] ####Popcorn Vendor: SILVA REED ([id number])[facility] ([facility])[address] [place] [address] Platelet mean volume (Bld) [Entitic vol] 11.0 fL Normal 9.0-12.7 [facility] Comment on above: Performed By: #### L [id number] ####Popcorn Vendor: SILVA REED ([id number])[facility])[address] [place] [address] Platelets (Bld) [#/Vol] 242 10*3/uL Normal 140-440 [facility] Comment on above: Performed By: #### L [id number] ####Popcorn Vendor: SILVA REED ([id number])[facility])[address] [place] [address] RBC (Bld) [#/Vol] 2.93 10*6/uL Low 4.40-5.90 [facility] Comment on above: Performed By: #### L [id number] ####Popcorn Vendor: SILVA REED ([id number])[facility] ([facility])[address] [place] [address] WBC (Bld) [#/Vol] 6.3 10*3/uL Normal 3.6-10.7 [facility] Comment on above: Performed By: #### L [id number] ####Popcorn Vendor: SILVA REED ([id number])[facility] [place] [address] CBC panel Auto (Bld)on 02-21 Erythrocyte distribution width (RBC) [Ratio] 16.0 % High 11.5 - 15.0 % [facility] Hematocrit (Bld) [Volume fraction] 27.9 % Low 40.0 - 52.0 % [facility] Hemoglobin (Bld) [Mass/Vol] 8.6 g/dL Low 13.0 - 18.0 g/dL [facility] Interpretation and review of laboratory results Abnormal [facility] MCH (RBC) [Entitic mass] 29.4 pg 26. 0 - 34.0 pg [facility] MCHC (RBC) [Mass/Vol] 30.8 % 30.5 - 36.0 % [facility] MCV (RBC) [Entitic vol] 95.2 fL 77.0 - 99.0 fL [facility] Platelet mean volume (Bld) [Entitic vol] 11.0 fL 9.0 - 12.7 fL [facility] Platelets (Bld) [#/Vol] 242 10*3/uL 140 - 440 10*3/uL [facility] RBC (Bld) [#/Vol] 2.93 10*6/uL Low 4.40 - 5.9 0 10*6/uL [facility] WBC (Bld) [#/Vol] 6.3 10*3/uL 3.6 - 10.7 10*3/uL [facility] Consulton 02-22-2024 Consult Normal [facility] Laboratory - Chemistry and C hemistry - challengeon 02-22-2024 Procalcitonin [Mass/Vol] 0.05 ng/mL 0.0 0 - 0.09 ng/mL [facility] PNEUMONIA PCR PANELon 2023 PNEUMONIA PCR PANEL Normal [facility] Comment on above: Performed By: #### L [id number] ####Popcorn Vendor: SILVA REED ([id number])[facility] ([facility])[address] [place] [address] PROCALCITONIN TESTon 024 PROCALCITONIN 0.05 ng/mL Normal 0.00-0.09 [facility] Comment on above: Result Comment: PANCHO Quiroga COMMENTS:PCT <0.50 = Low risk of severe sepsis and/or septic shock.PCT >2.00 = High risk of severe sepsis and/or septic shock. Performed By: #### L [id number] ####Popcorn Vendor: SILVA REED ([id number])[facility])[address] [place] [address] Procalcitonin [Mass/Vol]on 0 02-22-2024 Interpretation and review of laboratory results Normal [facility] PCT <0.50 = Low risk of severe sepsis and/or septic shock. PCT >2.00 = High risk of severe sepsis and/or septic shock. [facility] Progress Noteon 02-22-2024 Progress Note Normal [facility] Progress Note Normal [facility] Progress Note Chart reviewed for Transitional follow up, noted patient remains admitted to [facility]. Will follow up with patient after he is discharged to home. Normal [facility] Progress Note .Nutrition update completed. Chart reviewed. Patient to be monitored and followed by the diet field support technician. REBECA Morales Normal [facility] RESPIRATORY CULTURE AND STAI Non 02-22-2024 RESPIRATORY CULTURE AND STAIN Normal [facility] Comment on above: Performed By: #### L [id number] ####Popcorn Vendor: SILVA REED ([id number])[facility] ([facility])[address] [place] [address] Respiratory pathogens DNA an d RNA panel CHADD+non-probe (Lower resp)Ordered By: Selma Almonte on 02-22-2024 Acinetobacter baumannii complex Not detected Not Detected [facility] Adenovirus Not detected Not Detected [facility] Chlamydia pneumoniae Not detected Not Detected [facility] Enterobacter cloacae complex Not detected Not Detected [facility] Escherichia coli Not detected Not Detected [facility] FLUAV RNA CHADD+non-probe Ql (Lower resp) Not detected Not Detected [facility] FLUBV RNA CHADD+non-probe Ql (Lower resp) Not detected Not Detected [facility] Haemophilus influenzae Not detected Not Detecte d [facility] Human Metapneumovirus Not detected Not Detected [facility] Human Rhinovirus/Enterovirus Not detected Not Detected [facility] Interpretation and review of laboratory results Abnormal [facility] Klebsiella (Enterobacter) aerogenes Not detected Not Detected [facility] Klebsiella oxytoca Not detected Not Detected [facility] Klebsiella pneumoniae Not detected Not Detected [facility] Legionella pneumophila Not detected Not Detecte d [facility] Moraxella catarrhalis Not detected Not Detected [facility] Mycoplasma pneumoniae Not detected Not Detected [facility] Parainfluenza virus Not detected Not Detected [facility] Proteus spp Not detected Not Detected [facility] Pseudomonas aeruginosa Not detected Not Detecte d [facility] RSV RNA CHADD+probe Ql (Resp) Not detected Not Detected [facility] S. agalactiae Org specific cx Ql (Vag fld) Not detected Not Detected [facility] SARS-CoV-2 (COVID-19) RNA CHADD+non-probe Ql (Nph) Not detected Not Detected [facility] SARS-CoV-2 (COVID-19) RNA CHADD+probe Ql (Unsp spec) A positive Coronavirus (not SARS-CoV-2) result on the [employer] Pneumonia PCR Panel should be taken in the context of other clinical data as increased false positive detection has been noted by the strawhat inspector and packer. Consider collecting a nasopharyngeal sample for the Respiratory Pathogens Panel by PCR if clinically indicated. Methodology: Multiplex PCR This panel does not test for SARS-CoV-2 (Covid-19). The following antimicrobial resistance gene is reported if the appropriate organism is detected: mecA. The following antimicrobial resistance genes are reported if detected and the appropriate organisms are detected: CTX-M, IMP, KPC, NDM, OXA-48-like, and VIM. [facility] Serratia marcescens Detected Abnormal Not Detected [facility] Staphylococcus aureus Not detected Not Detected [facility] Streptococcus pneumoniae Not detected Not Detec evita [facility] Streptococcus pyogenes Not detected Not Detecte d [facility] BASIC METABOLIC PANELon 08-0 Anion gap [Moles/Vol] 6 mmol/L Normal 3-[address] [facility] Comment on above: Performed By: #### L AB15 ####Popcorn Vendor: SILVA REED ([id number])[facility] ([facility])[address] [place] [address] Calcium [Mass/Vol] 9.0 mg/dL Normal 8.4-10.4 [facility] Comment on above: Performed By: #### L AB15 ####Popcorn Vendor: SILVA REED ([id number])[facility] [place] [address] [place] Chloride [Moles/Vol] 104 mmol/L Normal 98-107 [facility] Comment on above: Performed By: #### L AB15 ####Popcorn Vendor: SILVA REED ([id number])[facility] ([facility])[address] [place] [address] CO2 [Moles/Vol] 26 mmol/L Normal 22-30 [facility] Comment on above: Performed By: #### L AB15 ####Popcorn Vendor: SILVA REED ([id number])[facility] ([facility])[address] [place] [address] Creatinine [Mass/Vol] 1.19 mg/dL Normal 0.66-1.[address] [facility] Comment on above: Performed By: #### L AB15 ####Popcorn Vendor: SILVA REED ([id number])[facility] ([facility])[address] [place] [address] [place] GLOMERULAR FILTRATION RATE ML/MIN/1.73 SQ M.PREDICTED 62.5 mL/min/1.73m*2 Normal >60.0 [facility] Comment on above: Result Comment: Calc ulation based on the Chronic Kidney Disease Epidemiology Collaboration (CKD-EPI) equation refit without adjustment for race Performed By: #### L AB15 ####Popcorn Vendor: SILVA REED ([id number])[facility] ([facility])[address] [place] [address] [place] Glucose [Mass/Vol] 102 mg/dL High 70-100 [facility] Comment on above: Performed By: #### L AB15 ####Popcorn Vendor: SILVA REED ([id number])[facility] ([facility])[address] [place] [address] Potassium [Moles/Vol] 4.4 mmol/L Normal 3.5-5.[address] [facility] Comment on above: Performed By: #### L AB15 ####Popcorn Vendor: SILVA REED ([id number])[facility] ([facility])[address] [place] [address] Sodium [Moles/Vol] 136 mmol/L Normal 135-145 [facility] Comment on above: Performed By: #### L AB15 ####Popcorn Vendor: SILVA REED ([id number])[facility] ([facility])[address] [place] [address] Urea nitrogen [Mass/Vol] 34 mg/dL High 9-20 [facility] Comment on above: Performed By: #### L AB15 ####Popcorn Vendor: SILVA REED ([id number])[facility] ([facility])[address] [place] [address] Basic metabolic 1998 panelon 02-21-2024 Anion gap [Moles/Vol] 6 mmol/L 3 - 13 mmol/L [facility] Calcium [Mass/Vol] 9.0 mg/dL 8.4 - 10. 4 mg/dL [facility] Chloride [Moles/Vol] 104 mmol/L 98 - 10 7 mmol/L [facility] CO2 [Moles/Vol] 26 mmol/L 22 - 30 mmol/L [facility] Creatinine [Mass/Vol] 1.19 mg/dL 0.66 - 1.25 mg/dL [facility] GFR/1.73 sq M.predicted (S/P/Bld) [Vol rate/Area] 62.5 mL/min - PINF [facility] Comment on above: Calculation based on the Chronic Kidney Disease Epidemiology Collaboration (CKD-EPI) equation refit without adjustment for race Glucose [Mass/Vol] 102 mg/dL High 70 - 100 mg/dL [facility] Interpretation and review of laboratory results Abnormal [facility] Potassium [Moles/Vol] 4.4 mmol/L 3.5 - 5.1 mmol/L [facility] Sodium [Moles/Vol] 136 mmol/L 135 - 145 mmol/L [facility] Urea nitrogen [Mass/Vol] 34 mg/dL High 9 - 20 mg/d L [facility] CBC (HEMOGRAM)on 02-21-2024 Erythrocyte distribution width (RBC) [Ratio] 15.9 % High 11.5-15.0 [facility] Comment on above: Performed By: #### L [id number] ####Popcorn Vendor: SILVA REED ([id number])[facility])[address] [place] [address] Hematocrit (Bld) [Volume fraction] 27.0 % Low 40.0-52.0 [facility] Comment on above: Performed By: #### L [id number] ####Popcorn Vendor: SILVA REED ([id number])[address] Hemoglobin (Bld) [Mass/Vol] 8.4 g/dL Low 13.0-18.0 [facility] Comment on above: Performed By: #### L [id number] ####Popcorn Vendor: SILVA REED ([id number])[facility])[address] [place] [address] MCH (RBC) [Entitic mass] 29.4 pg Normal 26.0-34.0 [facility] Comment on above: Performed By: #### L [id number] ####Popcorn Vendor: SILVA REED ([id number])[address] MCHC 31.1 % Normal 30.5-36.0 [facility] Comment on above: Performed By: #### L [id number] ####Popcorn Vendor: SILVA REED ([id number])[address] MCV (RBC) [Entitic vol] 94.4 fL Normal 77.0-99.0 [facility] Comment on above: Performed By: #### L [id number] ####Popcorn Vendor: SILVA [id number])[facility] ([facility])[address] [place] [address] Platelet mean volume (Bld) [Entitic vol] 10.6 fL Normal 9.0-12.7 [facility] Comment on above: Performed By: #### L [id number] ####Popcorn Vendor: SILVA REED ([id number])[facility])[address] [place] [address] Platelets (Bld) [#/Vol] 243 10*3/uL Normal 140-440 [facility] Comment on above: Performed By: #### L [id number] ####Popcorn Vendor: SILVA REED ([id number])[facility])[address] [place] [address] RBC (Bld) [#/Vol] 2.86 10*6/uL Low 4.40-5.90 [facility] Comment on above: Performed By: #### L [id number] ####Popcorn Vendor: SILVA REED ([id number])[facility] ([facility])[address] [place] [address] WBC (Bld) [#/Vol] 5.4 10*3/uL Normal 3.6-10.7 [facility] Comment on above: Performed By: #### L [id number] ####Popcorn Vendor: SILVA REED ([id number])[facility])[address] [place] [address] CBC panel Auto (Bld)on 02-20 Erythrocyte distribution width (RBC) [Ratio] 15.9 % High 11.5 - 15.0 % [facility] Hematocrit (Bld) [Volume fraction] 27.0 % Low 40.0 - 52.0 % [facility] Hemoglobin (Bld) [Mass/Vol] 8.4 g/dL Low 13.0 - 18.0 g/dL [facility] Interpretation and review of laboratory results Abnormal [facility] MCH (RBC) [Entitic mass] 29.4 pg 26. 0 - 34.0 pg [facility] MCHC (RBC) [Mass/Vol] 31.1 % 30.5 - 36.0 % [facility] MCV (RBC) [Entitic vol] 94.4 fL 77.0 - 99.0 fL [facility] Platelet mean volume (Bld) [Entitic vol] 10.6 fL 9.0 - 12.7 fL [facility] Platelets (Bld) [#/Vol] 243 10*3/uL 140 - 440 10*3/uL [facility] RBC (Bld) [#/Vol] 2.86 10*6/uL Low 4.40 - 5.9 0 10*6/uL [facility] WBC (Bld) [#/Vol] 5.4 10*3/uL 3.6 - 10.7 10*3/uL [facility] ECG 12-LEADon 02-21-2024 ECG 12-LEAD IMPRESSION: Afib/flut and V-paced complexes Low voltage, extremity and precordial leads Nonspecific T abnormalities, anterior leads Electronically Signed On 02-21-2024 13:10:44 EDT by Misty Negro Normal [facility] IDNon 02-21-2024 IDN [facility] No Panel InformationOrdered By: Misty Negro on 02-21-2024 P [place] 0 degrees [facility] Work Phone: AK Interval 0 ms [facility] Work Phone: QRS [place] 35 degrees [facility] Work Phone: QRSD Interval [address] [facility] Work Phone: QT Interval 419 ms [facility] Work Phone: QTC Interval 463 ms [facility] Work Phone: T Wave [place] 52 degrees [facility] Work Phone: [facility] Work Phone: No Panel Informationon 02-20 Afib/flut and V-paced complexes Low voltage, extremity and precordial leads Nonspecific T abnormalities, anterior leads Electronically Signed On 02-21-2024 13:10:44 EDT by Misty Negro CV Misty Parker MD - 02/21/2024 IMPRESSION: Afib/flut and V-paced complexes Low voltage, extremity and precordial leads Nonspecific T abnormalities, anterior leads Electronically Signed On 02-21-2024 13:10:44 EDT by Misty Negro [facility] Progress Noteon 02-21-2024 Progress Note Normal [facility] Progress Note Normal [facility] Vital signsOrdered By: Misty Negro on 02-21-2024 Heart rate 73 /min bpm [facility] [employer] Work Phone: XR CHEST 1 VIEWon 02-21-2024 XR CHEST 1 VIEW Normal [facility] XR Chest Single viewon 02-20 1. Stable cardiomegaly and small bilateral pleural effusions with streaky atelectasis near the medial right lung base. 2. COPD changes. Report Dictated on Electronically Signed By: Jarek Gustafson MD Electronically Signed Date/Time: 02/21/2024 8:55 AM EDT [facility] RADIOLOGY SYSTEM [facility] 1945 [id number] Exam Date/Time: 02/21/2024 08:19 Procedure: XR CHEST 1 VIEW Ordering Provider: PATRICIA JENNIFER Reason For Exam: DYSPNEA EXAMINATION: XR chest AP. EXAM DATE & TIME: 02/21/2024 8:19 AM EDT INDICATION: DYSPNEA ADDITIONAL INFORMATION: 79-year-old male with dyspnea presents for evaluation COMPARISON: Chest x-ray dated 02/20/2024 TECHNIQUE: Frontal view of the chest was obtained. FINDINGS: Lines/support devices: Cardiac leads project over the chest, somewhat limiting evaluation. Left chest dual-lead ICD is seen. Left basilar pigtail thoracostomy is redemonstrated. Cardiomediastinal silhouette: Stable cardiomegaly. Lungs/pleura: There is lung hyperinflation, flattening of the hemidiaphragms and coarsening of the interstitium. Unchanged small bilateral pleural effusions and streaky atelectasis near the medial right lung base. No evidence of pneumothorax. Osseous structures: Degenerative changes of the spine and shoulders are seen. No acute osseous abnormality is demonstrated. The bones are osteopenic. The patient is status post median sternotomy and cardiac surgery. Other findings: None. [facility] Jarek Gustafson MD - 02/21/2024 Patient Name: DARIN BREAUX : 1945 [facility]#: [id number] Exam Date/Time: 02/21/2024 08:19 Procedure: XR CHEST 1 VIEW Ordering Provider: PATRICIA JENNIFER Reason For Exam: DYSPNEA EXAMINATION: XR chest AP. EXAM DATE & TIME: 02/21/2024 8:19 AM EDT INDICATION: DYSPNEA ADDITIONAL INFORMATION: 79-year-old male with dyspnea presents for evaluation COMPARISON: Chest x-ray dated 02/20/2024 TECHNIQUE: Frontal view of the chest was obtained. FINDINGS: Lines/support devices: Cardiac leads project over the chest, somewhat limiting evaluation. Left chest dual-lead ICD is seen. Left basilar pigtail thoracostomy is redemonstrated. Cardiomediastinal silhouette: Stable cardiomegaly. Lungs/pleura: There is lung hyperinflation, flattening of the hemidiaphragms and coarsening of the interstitium. Unchanged small bilateral pleural effusions and streaky atelectasis near the medial right lung base. No evidence of pneumothorax. Osseous structures: Degenerative changes of the spine and shoulders are seen. No acute osseous abnormality is demonstrated. The bones are osteopenic. The patient is status post median sternotomy and cardiac surgery. Other findings: None. IMPRESSION: 1. Stable cardiomegaly and small bilateral pleural effusions with streaky atelectasis near the medial right lung base. 2. COPD changes. Report Dictated on Electronically Signed By: Jarek Gustafson MD Electronically Signed Date/Time: 02/21/2024 8:55 AM EDT [facility] Radiology Study observation (narrative) [facility] BASIC METABOLIC PANELon 08-0 Anion gap [Moles/Vol] 4 mmol/L Normal 3-[address] [facility] Comment on above: Performed By: #### L [id number] ####Popcorn Vendor: SILVA REED ([id number])[facility] ([facility])[address] [place] [address] Calcium [Mass/Vol] 8.9 mg/dL Normal 8.4-10.4 [facility] Comment on above: Performed By: #### L AB15 ####Popcorn Vendor: SILVA REED ([id number])[facility] [place] [address] Chloride [Moles/Vol] 102 mmol/L Normal 98-107 [facility] Comment on above: Performed By: #### L AB15 ####Popcorn Vendor: SILVA REED ([id number])[facility] ([facility])[address] [place] [address] CO2 [Moles/Vol] 27 mmol/L Normal 22-30 [facility] Comment on above: Performed By: #### L AB15 ####Popcorn Vendor: SILVA REED ([id number])[facility] ([facility])[address] [place] [address] Creatinine [Mass/Vol] 1.27 mg/dL High 0.66-1.[address] [facility] Comment on above: Performed By: #### L AB15 ####Popcorn Vendor: SILVA REED ([id number])[facility] ([facility])[address] [place] [address] GLOMERULAR FILTRATION RATE ML/MIN/1.73 SQ M.PREDICTED 57.8 mL/min/1.73m*2 Low >60.0 [facility] Comment on above: Result Comment: Calc ulation based on the Chronic Kidney Disease Epidemiology Collaboration (CKD-EPI) equation refit without adjustment for race Performed By: #### L AB15 ####Popcorn Vendor: SILVA REED ([id number])[facility] ([facility])[address] [place] [address] [place] Glucose [Mass/Vol] 110 mg/dL High 70-100 [facility] Comment on above: Performed By: #### L AB15 ####Popcorn Vendor: SILVA REED ([id number])[facility] ([facility])[address] [place] [address] Potassium [Moles/Vol] 4.6 mmol/L Normal 3.5-5.[address] [facility] Comment on above: Performed By: #### L AB15 ####Popcorn Vendor: SILVA REED ([phone])[facility] ([facility])[address] [place] [address] Sodium [Moles/Vol] 134 mmol/L Low 135-145 [facility] Comment on above: Performed By: #### L AB15 ####Popcorn Vendor: SILVA REED ([id number])[facility] ([facility])[address] [place] [address] Urea nitrogen [Mass/Vol] 33 mg/dL High 9-20 [facility] Comment on above: Performed By: #### L AB15 ####Popcorn Vendor: SILVA REED ([id number])[facility] ([facility])[address] [place] [address] Anion gap [Moles/Vol] 4 mmol/L Normal 3-13 [facility] Comment on above: Performed By: #### L AB15 ####Popcorn Vendor: SILVA REED ([id number])[facility] ([facility])[address] [place] [address] Calcium [Mass/Vol] 8.9 mg/dL Normal 8.4-10.4 [facility] Comment on above: Performed By: #### L AB15 ####Popcorn Vendor: SILVA REED ([phone])[facility] ([facility])[address] [place] [address] Chloride [Moles/Vol] 101 mmol/L Normal 98-107 [facility] Comment on above: Performed By: #### L AB15 ####Popcorn Vendor: SILVA REED ([id number])[facility] ([facility])[address] [place] [address] CO2 [Moles/Vol] 27 mmol/L Normal 22-30 [facility] Comment on above: Performed By: #### L AB15 ####Popcorn Vendor: SILVA REED ([phone])[facility] [place] [address] Creatinine [Mass/Vol] 1.23 mg/dL Normal 0.66-1.[address] [facility] Comment on above: Performed By: #### L AB15 ####Popcorn Vendor: SILVA REED ([id number])[facility])[address] [place] [address] [place] GLOMERULAR FILTRATION RATE ML/MIN/1.73 SQ M.PREDICTED 60.1 mL/min/1.73m*2 Normal >60.0 [facility] Comment on above: Result Comment: Calc ulation based on the Chronic Kidney Disease Epidemiology Collaboration (CKD-EPI) equation refit without adjustment for race Performed By: #### L AB15 ####Popcorn Vendor: SILVA REED ([id number])[facility] ([facility])[address] [place] [address] Glucose [Mass/Vol] 100 mg/dL Normal 70-100 [facility] Comment on above: Performed By: #### L AB15 ####Popcorn Vendor: SILVA REED ([id number])[facility] ([facility])[address] [place] [address] [place] Potassium [Moles/Vol] 4.4 mmol/L Normal 3.5-5.[address] [facility] Comment on above: Performed By: #### L AB15 ####Popcorn Vendor: SILVA REED ([id number])[facility] [place] [address] [place] Sodium [Moles/Vol] 132 mmol/L Low 135-145 [facility] Comment on above: Performed By: #### L AB15 ####Popcorn Vendor: SILVA REED ([id number])[facility] ([facility])[address] [place] [address] [place] Urea nitrogen [Mass/Vol] 36 mg/dL High 9-20 [facility] Comment on above: Performed By: #### L AB15 ####Popcorn Vendor: SILVA REED ([id number])[facility] ([facility])[address] [place] [address] BLOOD TYPE AND SCREEN GELon 02-20-2024 ABO GROUPING A Normal [facility] Comment on above: Performed By: #### L [id number] ####Popcorn Vendor: SILVA REED ([id number])[facility] ([facility])[address] [place] [address] RH TYPE IN BLOOD Positive Normal [facility] Comment on above: Performed By: #### L [id number] ####Popcorn Vendor: SILVA REED ([id number])[facility] ([facility])[address] [place] [address] Basic metabolic 1998 panelon 02-20-2024 Anion gap [Moles/Vol] 4 mmol/L 3 - 13 mmol/L [facility] Calcium [Mass/Vol] 8.9 mg/dL 8.4 - 10. 4 mg/dL [facility] Chloride [Moles/Vol] 102 mmol/L 98 - 10 7 mmol/L [facility] CO2 [Moles/Vol] 27 mmol/L 22 - 30 mmol/L [facility] Creatinine [Mass/Vol] 1.27 mg/dL High 0.66 - 1.25 mg/dL [facility] GFR/1.73 sq M.predicted (S/P/Bld) [Vol rate/Area] 57.8 mL/min Low - PINF [facility] Comment on above: Calculation based on the Chronic Kidney Disease Epidemiology Collaboration (CKD-EPI) equation refit without adjustment for race Glucose [Mass/Vol] 110 mg/dL High 70 - 100 mg/dL [facility] Interpretation and review of laboratory results Abnormal [facility] Potassium [Moles/Vol] 4.6 mmol/L 3.5 - 5.1 mmol/L [facility] Sodium [Moles/Vol] 134 mmol/L Low 135 - 145 mmol/L [facility] Urea nitrogen [Mass/Vol] 33 mg/dL High 9 - 20 mg/d L [facility] Anion gap [Moles/Vol] 4 mmol/L 3 - 13 mmol/L [facility] Calcium [Mass/Vol] 8.9 mg/dL 8.4 - 10. 4 mg/dL [facility] Chloride [Moles/Vol] 101 mmol/L 98 - 10 7 mmol/L [facility] CO2 [Moles/Vol] 27 mmol/L 22 - 30 mmol/L [facility] Creatinine [Mass/Vol] 1.23 mg/dL 0.66 - 1.25 mg/dL [facility] GFR/1.73 sq M.predicted (S/P/Bld) [Vol rate/Area] 60.1 mL/min - PINF [facility] Comment on above: Calculation based on the Chronic Kidney Disease Epidemiology Collaboration (CKD-EPI) equation refit without adjustment for race Glucose [Mass/Vol] 100 mg/dL 70 - 100 mg/dL [facility] Interpretation and review of laboratory results Abnormal [facility] Potassium [Moles/Vol] 4.4 mmol/L 3.5 - 5.1 mmol/L [facility] Sodium [Moles/Vol] 132 mmol/L Low 135 - 145 mmol/L [facility] Urea nitrogen [Mass/Vol] 36 mg/dL High 9 - 20 mg/d L [facility] Blood type and Crossmatch pa isma (Bld)on 02-20-2024 ABO group Nom (Bld) A [facility] Blood group antibody screen GEL Ql Negative [facility] D Ag Ql (RBC) Positive [facility] CBC (HEMOGRAM)on 02-20-2024 Erythrocyte distribution width (RBC) [Ratio] 16.3 % High 11.5-15.0 [facility] Comment on above: Performed By: #### L [id number] ####Popcorn Vendor: SILVA REED ([id number])[address] Hematocrit (Bld) [Volume fraction] 25.2 % Low 40.0-52.0 [facility] Comment on above: Performed By: #### L [id number] ####Popcorn Vendor: SILVA [id number])[address] Hemoglobin (Bld) [Mass/Vol] 8.0 g/dL Low 13.0-18.0 [facility] Comment on above: Performed By: #### L AB294 ####Popcorn Vendor: SILVA [id number])[facility] ([facility])[address] [place] [address] MCH (RBC) [Entitic mass] 29.4 pg Normal 26.0-34.0 [facility] Comment on above: Performed By: #### L AB294 ####Popcorn Vendor: SILVA REED ([id number])[facility] ([facility])[address] [place] [address] MCHC 31.7 % Normal 30.5-36.0 [facility] Comment on above: Performed By: #### L AB294 ####Popcorn Vendor: SILVA REED ([id number])[facility] ([facility])[address] [place] [address] MCV (RBC) [Entitic vol] 92.6 fL Normal 77.0-99.0 [facility] Comment on above: Performed By: #### L [id number] ####Popcorn Vendor: SILVA REED ([id number])[facility] ([facility])[address] [place] [address] Platelet mean volume (Bld) [Entitic vol] 10.6 fL Normal 9.0-12.7 [facility] Comment on above: Performed By: #### L AB294 ####Popcorn Vendor: SILVA REED ([id number])[facility] ([facility])[address] [place] [address] Platelets (Bld) [#/Vol] 293 10*3/uL Normal 140-440 [facility] Comment on above: Performed By: #### L AB294 ####Popcorn Vendor: SILVA REED ([id number])[facility] ([facility])[address] [place] [address] RBC (Bld) [#/Vol] 2.72 10*6/uL Low 4.40-5.90 [facility] Comment on above: Performed By: #### L AB294 ####Popcorn Vendor: SILVA REED ([id number])[facility] ([facility])[address] [place] [address] [place] WBC (Bld) [#/Vol] 6.2 10*3/uL Normal 3.6-10.7 [facility] Comment on above: Performed By: #### L AB294 ####Popcorn Vendor: SILVA REED ([phone])[facility])[address] [place] [address] Erythrocyte distribution width (RBC) [Ratio] 16.1 % High 11.5-15.0 [facility] Comment on above: Performed By: #### L AB294 ####Popcorn Vendor: SILVA REED ([id number])[facility])[address] [place] [address] Hematocrit (Bld) [Volume fraction] 25.5 % Low 40.0-52.0 [facility] Comment on above: Performed By: #### L AB294 ####Popcorn Vendor: SILVA REED ([id number])[address] Hemoglobin (Bld) [Mass/Vol] 8.1 g/dL Low 13.0-18.0 [facility] Comment on above: Performed By: #### L AB294 ####Popcorn Vendor: SILVA REED ([id number])[address] MCH (RBC) [Entitic mass] 29.1 pg Normal 26.0-34.0 [facility] Comment on above: Performed By: #### L AB294 ####Popcorn Vendor: SILVA REED ([id number])[address] MCHC 31.8 % Normal 30.5-36.0 [facility] Comment on above: Performed By: #### L AB294 ####Popcorn Vendor: SILVA REED ([id number])[address] MCV (RBC) [Entitic vol] 91.7 fL Normal 77.0-99.0 [facility] Comment on above: Performed By: #### L AB294 ####Popcorn Vendor: SILVA REED ([id number])[facility] ([facility])[address] [place] [address] Platelet mean volume (Bld) [Entitic vol] 10.4 fL Normal 9.0-12.7 [facility] Comment on above: Performed By: #### L AB294 ####Popcorn Vendor: SILVA REED ([id number])[facility] ([facility])[address] [place] [address] Platelets (Bld) [#/Vol] 284 10*3/uL Normal 140-440 [facility] Comment on above: Performed By: #### L [id number] ####Popcorn Vendor: SILVA REED ([id number])[facility] ([facility])[address] [place] [address] RBC (Bld) [#/Vol] 2.78 10*6/uL Low 4.40-5.90 [facility] Comment on above: Performed By: #### L [id number] ####Popcorn Vendor: SILVA REED ([id number])[facility])[address] [place] [address] WBC (Bld) [#/Vol] 6.3 10*3/uL Normal 3.6-10.7 [facility] Comment on above: Performed By: #### L AB294 ####Popcorn Vendor: SILVA REED ([id number])[facility] ([facility])[address] [place] [address] CBC panel Auto (Bld)Ordered By: Radha Aaron on 02-20-2024 Erythrocyte distribution width (RBC) [Ratio] 16.3 % High 11.5 - 15.0 % [facility] Hematocrit (Bld) [Volume fraction] 25.2 % Low 40.0 - 52.0 % [facility] Hemoglobin (Bld) [Mass/Vol] 8.0 g/dL Low 13.0 - 18.0 g/dL [facility] Interpretation and review of laboratory results Abnormal [facility] MCH (RBC) [Entitic mass] 29.4 pg 26. 0 - 34.0 pg [facility] MCHC (RBC) [Mass/Vol] 31.7 % 30.5 - 36.0 % [facility] MCV (RBC) [Entitic vol] 92.6 fL 77.0 - 99.0 fL [facility] Platelet mean volume (Bld) [Entitic vol] 10.6 fL 9.0 - 12.7 fL [facility] Platelets (Bld) [#/Vol] 293 10*3/uL 140 - 440 10*3/uL [facility] RBC (Bld) [#/Vol] 2.72 10*6/uL Low 4.40 - 5.9 0 10*6/uL [facility] WBC (Bld) [#/Vol] 6.2 10*3/uL 3.6 - 10.7 10*3/uL [facility] CBC panel Auto (Bld)on 02-19 Erythrocyte distribution width (RBC) [Ratio] 16.1 % High 11.5 - 15.0 % [facility] Hematocrit (Bld) [Volume fraction] 25.5 % Low 40.0 - 52.0 % [facility] Hemoglobin (Bld) [Mass/Vol] 8.1 g/dL Low 13.0 - 18.0 g/dL [facility] Interpretation and review of laboratory results Abnormal [facility] MCH (RBC) [Entitic mass] 29.1 pg 26. 0 - 34.0 pg [facility] MCHC (RBC) [Mass/Vol] 31.8 % 30.5 - 36.0 % [facility] MCV (RBC) [Entitic vol] 91.7 fL 77.0 - 99.0 fL [facility] Platelet mean volume (Bld) [Entitic vol] 10.4 fL 9.0 - 12.7 fL [facility] Platelets (Bld) [#/Vol] 284 10*3/uL 140 - 440 10*3/uL [facility] RBC (Bld) [#/Vol] 2.78 10*6/uL Low 4.40 - 5.9 0 10*6/uL [facility] WBC (Bld) [#/Vol] 6.3 10*3/uL 3.6 - 10.7 10*3/uL [facility] Consulton 02-20-2024 Consult Normal [facility] IDNon 02-20-2024 IDN Normal [facility] IDN Normal [facility] LACTIC ACID WITH REFLEXon Lactate [Moles/Vol] 1.1 mmol/L Normal 0.7-2.0 [facility] Comment on above: Performed By: #### L [id number] ####Popcorn Vendor: SILVA REED ([phone])[facility] ([facility] Laboratory - Chemistry and C hemistry - challengeon 02-20-2024 Lactate [Moles/Vol] 1.1 mmol/L 0.7 - 2. 0 mmol/L [facility] No Panel Informationon 02-19 Blood Expiration Date S [facility] Crossmatch interpretation COMP [facility] Dispense Status Transfused [facility] Product Blood Type 6200 [facility] PRODUCT CODE [id number] [facility] Unit ABO A [facility] Unit Number [id number] [facility] alth Unit RH Positive [facility] Volume 300 mL [facility] Interpretation and review of laboratory results Normal [facility] Nursing Noteon 02-20-2024 Nursing Note Normal [facility] Nursing Note MICU at bedside evaluating patient. Normal [facility] Progress Noteon 02-20-2024 Progress Note Normal [facility] XR CHEST 1 VIEWon 02-20-2024 XR CHEST 1 VIEW Normal [facility] XR CHEST 1 VIEW Normal [facility] XR Chest Single viewon 02-19 Lines, tubes, and devices: Dual-chamber pacemaker with leads projecting over the right atrium and right ventricle. Left basilar pigtail drainage catheter again noted. Lungs and pleura: Hyperinflated lungs with inferior prominence in keeping with emphysema/COPD. Blunting of the left costophrenic angle suggesting a small effusion with associated atelectasis. Mild streaky bibasilar opacities likely atelectasis. No sizable pneumothorax. Cardiomediastinal silhouette: Stable enlarged cardiomediastinal silhouette. Status post median sternotomy. Left atrial appendage ligation clip and mediastinal clips noted. Other: Partially imaged stent of the abdominal descending aorta. Bony thorax is grossly unchanged. Report Dictated on Electronically Signed By: Vinicio Eduardo MD Electronically Signed Date/Time: 02/20/2024 8:57 PM EDT [facility] Patient Name: DARIN BREAUX : 1945 Exam Date/Time: 02/20/2024 21:02 Procedure: XR CHEST 1 VIEW Ordering Provider: EAST, , MIKE Reason For Exam: hypotension EXAMINATION: CHEST RADIOGRAPH (SINGLE VIEW AP OR PA) Clinical History: hypotension Comparison: Radiograph 02/20/2024 at 10:56 RESULT: See impression [facility] Vinicio Eduardo MD - 02/20/2024 Patient Name: DARIN BREAUX : 1945 Exam Date/Time: 02/20/2024 21:02 Procedure: XR CHEST 1 VIEW Ordering Provider: EAST, , MIKE Reason For Exam: hypotension EXAMINATION: CHEST RADIOGRAPH (SINGLE VIEW AP OR PA) Clinical History: hypotension Comparison: Radiograph 02/20/2024 at 10:56 RESULT: See impression IMPRESSION: Lines, tubes, and devices: Dual-chamber pacemaker with leads projecting over the right atrium and right ventricle. Left basilar pigtail drainage catheter again noted. Lungs and pleura: Hyperinflated lungs with inferior prominence in keeping with emphysema/COPD. Blunting of the left costophrenic angle suggesting a small effusion with associated atelectasis. Mild streaky bibasilar opacities likely atelectasis. No sizable pneumothorax. Cardiomediastinal silhouette: Stable enlarged cardiomediastinal silhouette. Status post median sternotomy. Left atrial appendage ligation clip and mediastinal clips noted. Other: Partially imaged stent of the abdominal descending aorta. Bony thorax is grossly unchanged. Report Dictated on Electronically Signed By: Vinicio Eduardo MD Electronically Signed Date/Time: 02/20/2024 8:57 PM EDT [facility] Radiology Study observation (narrative) [facility] 1. COPD. 2. No focal infiltrates. 3. Small-bore left-sided pigtail chest tube in place. 4. No pneumothorax. Report Dictated on Electronically Signed By: Micah Garcia MD Electronically Signed Date/Time: 02/20/2024 11:45 AM EDT [facility] Patient Name: DARIN BREAUX : 1945 Exam Date/Time: 02/20/2024 10:57 Procedure: XR CHEST 1 VIEW Ordering Provider: PATRICIA JENNIFER Reason For Exam: DYSPNEA CLINICAL INFORMATION: Dyspnea. Portable view of the chest at 1055 hours is provided and compared to a previous study dated February 19, 2024. 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 The patient is status post median sternotomy. The heart size is normal. Emphysematous changes are noted diffusely. There are no focal infiltrates. A small-bore pigtail chest tube is noted on the left. There is no pneumothorax. [facility] Micah Garcia MD - 02/20/2024 Patient Name: DARIN BREAUX : 1945 Exam Date/Time: 02/20/2024 10:57 Procedure: XR CHEST 1 VIEW Ordering Provider: PATRICIA JENNIFER Reason For Exam: DYSPNEA CLINICAL INFORMATION: Dyspnea. Portable view of the chest at 1055 hours is provided and compared to a previous study dated February 19, 2024. 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 The patient is status post median sternotomy. The heart size is normal. Emphysematous changes are noted diffusely. There are no focal infiltrates. A small-bore pigtail chest tube is noted on the left. There is no pneumothorax. IMPRESSION: 1. COPD. 2. No focal infiltrates. 3. Small-bore left-sided pigtail chest tube in place. 4. No pneumothorax. Report Dictated on Electronically Signed By: Micah Garcia MD Electronically Signed Date/Time: 02/20/2024 11:45 AM EDT [facility] Radiology Study observation (narrative) [facility] XR Chest Single viewOrdered By: Micah Garcia on 02-20-2024 [facility] Work Phone: BASIC METABOLIC PANELon 080 Anion gap [Moles/Vol] 6 mmol/L Normal 3-[address] [facility] Comment on above: Performed By: #### L [id number] ####Popcorn Vendor: SILVA REED ([id number])[facility] ([facility])[address] [place] [address] Calcium [Mass/Vol] 8.9 mg/dL Normal 8.4-10.4 [facility] Comment on above: Performed By: #### L [id number] ####Popcorn Vendor: SILVA REED ([id number])[facility] ([facility])[address] [place] [address] Chloride [Moles/Vol] 97 mmol/L Low 98-107 [facility] Comment on above: Performed By: #### L [id number] ####Popcorn Vendor: SILVA REED ([id number])[facility] ([facility])[address] [place] [address] CO2 [Moles/Vol] 28 mmol/L Normal 22-30 [facility] Comment on above: Performed By: #### L [id number] ####Popcorn Vendor: SILVA REED ([phone])[facility])[address] [place] [address] Creatinine [Mass/Vol] 1.20 mg/dL Normal 0.66-1.[address] [facility] Comment on above: Performed By: #### L [id number] ####Popcorn Vendor: SILVA REED ([id number])[facility])[address] [place] [address] GLOMERULAR FILTRATION RATE ML/MIN/1.73 SQ M.PREDICTED 61.9 mL/min/1.73m*2 Normal >60.0 [facility] Comment on above: Result Comment: Calc ulation based on the Chronic Kidney Disease Epidemiology Collaboration (CKD-EPI) equation refit without adjustment for race Performed By: #### L [id number] ####Popcorn Vendor: SILVA REED ([id number])[facility])[address] [place] [address] Glucose [Mass/Vol] 97 mg/dL Normal 70-100 [facility] Comment on above: Performed By: #### L [id number] ####Popcorn Vendor: SILVA REED ([id number])[facility] ([facility])[address] [place] [address] Potassium [Moles/Vol] 4.1 mmol/L Normal 3.5-5.[address] [facility] Comment on above: Performed By: #### L [id number] ####Popcorn Vendor: SILVA REED ([id number])[facility] ([facility])[address] [place] [address] Sodium [Moles/Vol] 131 mmol/L Low 135-145 [facility] Comment on above: Performed By: #### L [id number] ####Popcorn Vendor: SILVA REED ([id number])[facility] ([facility])[address] [place] [address] Urea nitrogen [Mass/Vol] 35 mg/dL High 9-20 [facility] Comment on above: Performed By: #### L [id number] ####Popcorn Vendor: SILVA REED ([phone])[facility])[address] [place] [address] Basic metabolic 1998 panelon 02-19-2024 Anion gap [Moles/Vol] 6 mmol/L 3 - 13 mmol/L [facility] Calcium [Mass/Vol] 8.9 mg/dL 8.4 - 10. 4 mg/dL [facility] Chloride [Moles/Vol] 97 mmol/L Low 98 - 10 7 mmol/L [facility] CO2 [Moles/Vol] 28 mmol/L 22 - 30 mmol/L [facility] Creatinine [Mass/Vol] 1.20 mg/dL 0.66 - 1.25 mg/dL [facility] GFR/1.73 sq M.predicted (S/P/Bld) [Vol rate/Area] 61.9 mL/min - PINF [facility] Comment on above: Calculation based on the Chronic Kidney Disease Epidemiology Collaboration (CKD-EPI) equation refit without adjustment for race Glucose [Mass/Vol] 97 mg/dL 70 - 100 mg/dL [facility] Interpretation and review of laboratory results Abnormal [facility] Potassium [Moles/Vol] 4.1 mmol/L 3.5 - 5.1 mmol/L [facility] Sodium [Moles/Vol] 131 mmol/L Low 135 - 145 mmol/L [facility] Urea nitrogen [Mass/Vol] 35 mg/dL High 9 - 20 mg/d L [facility] CARECOORDon 02-19-2024 CARECOCONOWINGO Normal [facility] CBC W Auto Differential pane l (Bld)on 02-19-2024 Basophils (Bld) [#/Vol] 0.1 10*3/uL 0.0 - 0.2 10*3/uL [facility] Basophils/100 WBC (Bld) 1.0 % 0.0 - 2.0 % [facility] Eosinophils (Bld) [#/Vol] 0.2 10*3/uL 0.0 - 0.5 10*3/uL [facility] Eosinophils/100 WBC (Bld) 2.3 % 0.0 - 6.0 % [facility] Erythrocyte distribution width (RBC) [Ratio] 16.4 % High 11.5 - 15.0 % [facility] Hematocrit (Bld) [Volume fraction] 27.7 % Low 40.0 - 52.0 % [facility] Hemoglobin (Bld) [Mass/Vol] 8.9 g/dL Low 13.0 - 18.0 g/dL [facility] Immature granulocytes (Bld) [#/Vol] 0.0 10*3/uL NINF - 0.1 10*3/uL [facility] Immature granulocytes/100 WBC (Bld) 0.4 % 0.0 - 2.0 % [facility] Interpretation and review of laboratory results Abnormal [facility] Lymphocytes (Bld) [#/Vol] 0.8 10*3/uL Low 1.0 - 4.3 10*3/uL [facility] Lymphocytes/100 WBC (Bld) 11.9 % Low 15.0 - 45.0 % [facility] MCH (RBC) [Entitic mass] 29.6 pg 26. 0 - 34.0 pg [facility] MCHC (RBC) [Mass/Vol] 32.1 % 30.5 - 36.0 % [facility] MCV (RBC) [Entitic vol] 92.0 fL 77.0 - 99.0 fL [facility] Monocytes (Bld) [#/Vol] 0.7 10*3/uL 0.0 - 0.9 10*3/uL [facility] Monocytes/100 WBC (Bld) 10.5 % 5.0 - 13.0 % [facility] Neutrophils (Bld) [#/Vol] 5.2 10*3/uL 1.8 - 7.5 10*3/uL [facility] Neutrophils/100 WBC (Bld) 73.9 % 38.0 - 82.0 % [facility] Nucleated RBC/100 WBC (Bld) [Ratio] 0.0 % [facility] Platelet mean volume (Bld) [Entitic vol] 10.6 fL 9.0 - 12.7 fL [facility] Platelets (Bld) [#/Vol] 343 10*3/uL 140 - 440 10*3/uL [facility] RBC (Bld) [#/Vol] 3.01 10*6/uL Low 4.40 - 5.9 0 10*6/uL [facility] WBC (Bld) [#/Vol] 7.1 10*3/uL 3.6 - 10.7 10*3/uL [facility] CBC WITH AUTO DIFFERENTIALon 02-19-2024 Basophils (Bld) [#/Vol] 0.1 10*3/uL Normal 0.0-0.2 [facility] Comment on above: Performed By: #### L [id number] ####Popcorn Vendor: SILVA REED ([id number])[facility] ([facility])[address] [place] [address] Basophils/100 WBC (Bld) 1.0 % Normal 0.0-2.0 [facility] Comment on above: Performed By: #### L [id number] ####Popcorn Vendor: SILVA REED ([id number])[facility] ([facility])[address] [place] [address] Eosinophils (Bld) [#/Vol] 0.2 10*3/uL Normal 0.0-0.5 [facility] Comment on above: Performed By: #### L [id number] ####Popcorn Vendor: SILVA REED ([id number])[facility])[address] [place] [address] Eosinophils/100 WBC (Bld) 2.3 % Normal 0.0-6.0 [facility] Comment on above: Performed By: #### L [id number] ####Popcorn Vendor: SILVA REED ([phone])[facility])[address] [place] [address] Erythrocyte distribution width (RBC) [Ratio] 16.4 % High 11.5-15.0 [facility] Comment on above: Performed By: #### L [id number] ####Popcorn Vendor: SILVA REED ([id number])[facility])[address] [place] [address] Hematocrit (Bld) [Volume fraction] 27.7 % Low 40.0-52.0 [facility] Comment on above: Performed By: #### L [id number] ####Popcorn Vendor: SILVA REED ([id number])[address] Hemoglobin (Bld) [Mass/Vol] 8.9 g/dL Low 13.0-18.0 [facility] Comment on above: Performed By: #### L [id number] ####Popcorn Vendor: SILVA REED ([id number])[facility])[address] [place] [address] IMMATURE GRANS % 0.4 % Normal 0.0-2.0 [facility] Comment on above: Performed By: #### L [id number] ####Popcorn Vendor: SILVA REED ([id number])[facility])[address] [place] [address] IMMATURE GRANS ABSOLUTE 0.0 10*3/uL Normal <0.1 [facility] Comment on above: Performed By: #### L [id number] ####Popcorn Vendor: SILVA REED ([id number])[facility])[address] [place] [address] Lymphocytes (Bld) [#/Vol] 0.8 10*3/uL Low 1.0-4.3 [facility] Comment on above: Performed By: #### L [id number] ####Popcorn Vendor: SILVA REED ([id number])[facility])[address] [place] [address] Lymphocytes/100 WBC (Bld) 11.9 % Low 15.0-45.0 [facility] Comment on above: Performed By: #### L [id number] ####Popcorn Vendor: SILVA REED ([id number])[facility])[address] [place] [address] MCH (RBC) [Entitic mass] 29.6 pg Normal 26.0-34.0 [facility] Comment on above: Performed By: #### L [id number] ####Popcorn Vendor: SILVA REED ([phone])[facility])[address] [place] [address] MCHC 32.1 % Normal 30.5-36.0 [facility] Comment on above: Performed By: #### L [id number] ####Popcorn Vendor: SILVA REED ([id number])[facility])[address] [place] [address] MCV (RBC) [Entitic vol] 92.0 fL Normal 77.0-99.0 [facility] Comment on above: Performed By: #### L [id number] ####Popcorn Vendor: SILVA REED ([id number])[facility])[address] [place] [address] Monocytes (Bld) [#/Vol] 0.7 10*3/uL Normal 0.0-0.9 [facility] Comment on above: Performed By: #### L [id number] ####Popcorn Vendor: SILVA REED ([id number])[facility] [place] [address] Monocytes/100 WBC (Bld) 10.5 % Normal 5.0-13.0 [facility] Comment on above: Performed By: #### L [id number] ####Popcorn Vendor: SILVA REED ([id number])[facility] ([facility])[address] [place] [address] NEUTROPHILS ABSOLUTE 5.2 10*3/uL Normal 1.8-7.5 [facility] Comment on above: Performed By: #### L [id number] ####Popcorn Vendor: SILVA REED ([id number])[facility] ([facility])[address] [place] [address] Neutrophils/100 WBC (Bld) 73.9 % Normal 38.0-82.0 [facility] Comment on above: Performed By: #### L [id number] ####Popcorn Vendor: SILVA REED ([id number])[facility] ([facility])[address] [place] [address] NRBC 0.0 /100 WBCs Normal 0.0-2.0 [facility] Comment on above: Performed By: #### L [id number] ####Popcorn Vendor: SILVA REED ([id number])[facility] ([facility])[address] [place] [address] Platelet mean volume (Bld) [Entitic vol] 10.6 fL Normal 9.0-12.7 [facility] Comment on above: Performed By: #### L [id number] ####Popcorn Vendor: SILVA REED ([id number])[facility] ([facility])[address] [place] [address] [place] Platelets (Bld) [#/Vol] 343 10*3/uL Normal 140-440 [facility] Comment on above: Performed By: #### L [id number] ####Popcorn Vendor: SILVA REED ([id number])[facility] ([facility])[address] [place] [address] [place] RBC (Bld) [#/Vol] 3.01 10*6/uL Low 4.40-5.90 [facility] Comment on above: Performed By: #### L [id number] ####Popcorn Vendor: SILVA REED ([id number])[facility] ([facility])[address] [place] [address] WBC (Bld) [#/Vol] 7.1 10*3/uL Normal 3.6-10.7 [facility] Comment on above: Performed By: #### L [id number] ####Popcorn Vendor: SILVA PATSYSTAR ([id number])[facility] [place] [address] [place] IDNon 02-19-2024 IDN Normal [facility] IDN Normal [facility] Progress Noteon 02-19-2024 Progress Note Normal [facility] Progress Note Normal [facility] XR CHEST 1 VIEWon 02-19-2024 XR CHEST 1 VIEW Normal [facility] XR Chest Single viewon 02-18 FINDINGS/IMPRESSION: Limitations: Patient positioning/rotation Lines, tubes, and devices: Left basilar pigtail thoracostomy catheter appears new from prior study. Unchanged multilead left-sided pacemaker device. Cardiomediastinal silhouette: Unchanged in appearance with postsurgical changes present Lungs/Pleura: Right greater than left pleural effusions, decreased on the left similar on the right. Improved aeration of the left lung base with persistent bibasilar airspace disease. Pulmonary vascular congestion overall similar. No pneumothorax. Osseous structures: Unchanged in appearance. Soft tissues: No soft tissue abnormality is detected. Report Dictated on Electronically Signed By: Emmanuel Maldonado MD Electronically Signed Date/Time: 02/19/2024 8:23 AM [facility] [employer] Patient Name: DARIN BREAUX : 1945 Exam Date/Time: 02/19/2024 06:30 Procedure: XR CHEST 1 VIEW Ordering Provider: PATRICIA JENNIFER Reason For Exam: DYSPNEA CHEST - PORTABLE: CLINICAL INDICATION: Dyspnea. TECHNIQUE: Portable AP COMPARISON: One day ago. [facility] Jesusita Maldonado MD - 02/19/2024 Patient Name: [facility] 1945 [id number] Exam Date/Time: 02/19/2024 06:30 Procedure: XR CHEST 1 VIEW Ordering Provider: PATRICIA JENNIFER Reason For Exam: DYSPNEA CHEST - PORTABLE: CLINICAL INDICATION: Dyspnea. TECHNIQUE: Portable AP COMPARISON: One day ago. IMPRESSION: FINDINGS/IMPRESSION: Limitations: Patient positioning/rotation Lines, tubes, and devices: Left basilar pigtail thoracostomy catheter appears new from prior study. Unchanged multilead left-sided pacemaker device. Cardiomediastinal silhouette: Unchanged in appearance with postsurgical changes present Lungs/Pleura: Right greater than left pleural effusions, decreased on the left similar on the right. Improved aeration of the left lung base with persistent bibasilar airspace disease. Pulmonary vascular congestion overall similar. No pneumothorax. Osseous structures: Unchanged in appearance. Soft tissues: No soft tissue abnormality is detected. Report Dictated on Electronically Signed By: Emmanuel Maldonado MD Electronically Signed Date/Time: 02/19/2024 8:23 AM EDT [facility] Radiology Study observation (narrative) [facility] [id number] 02-18-2024 [id number] Patient is active with: [facility] [address] [facility], [facility] [address] [place] [address] HCl will continue to follow. Normal [facility] BASIC METABOLIC PANELon 08-0 Anion gap [Moles/Vol] 6 mmol/L Normal 3-[address] [facility] Comment on above: Performed By: #### L [id number] ####Popcorn Vendor: SILVA REED ([phone])[facility] ([id number] Calcium [Mass/Vol] 8.7 mg/dL Normal 8.4-10.4 [facility] Comment on above: Performed By: #### L [id number] ####Popcorn Vendor: SILVA REED ([id number])[facility] ([facility])[address] [place] [address] Chloride [Moles/Vol] 101 mmol/L Normal 98-107 [facility] Comment on above: Performed By: #### L [id number] ####Popcorn Vendor: SILVA REED ([id number])[facility] ([facility])[address] [place] [address] CO2 [Moles/Vol] 28 mmol/L Normal 22-30 [facility] Comment on above: Performed By: #### L [id number] ####Popcorn Vendor: SILVA REED ([id number])[facility] ([facility])[address] [place] [address] Creatinine [Mass/Vol] 1.16 mg/dL Normal 0.66-1.[address] [facility] Comment on above: Performed By: #### L [id number] ####Popcorn Vendor: SILVA REED ([phone])[facility] ([facility])[address] [place] [address] [place] GLOMERULAR FILTRATION RATE ML/MIN/1.73 SQ M.PREDICTED 64.5 mL/min/1.73m*2 Normal >60.0 [facility] Comment on above: Result Comment: Calc ulation based on the Chronic Kidney Disease Epidemiology Collaboration (CKD-EPI) equation refit without adjustment for race Performed By: #### L [id number] ####Popcorn Vendor: SILVA REED ([id number])[facility] ([facility])[address] [place] [address] [place] Glucose [Mass/Vol] 93 mg/dL Normal 70-100 [facility] Comment on above: Performed By: #### L [id number] ####Popcorn Vendor: SILVA REED ([id number])[facility] ([facility])[address] [place] [address] [place] Potassium [Moles/Vol] 4.1 mmol/L Normal 3.5-5.1 [facility] Comment on above: Performed By: #### L [id number] ####Popcorn Vendor: SILVA REED ([id number])[facility])[address] [place] [address] Sodium [Moles/Vol] 134 mmol/L Low 135-145 [facility] Comment on above: Performed By: #### L [id number] ####Popcorn Vendor: SILVA REED ([id number])[facility] ([facility])[address] [place] [address] Urea nitrogen [Mass/Vol] 34 mg/dL High 9-20 [facility] Comment on above: Performed By: #### L [id number] ####Popcorn Vendor: SILVA REED ([phone])[facility])[address] [place] [address] Basic metabolic 1998 panelon 02-18-2024 Anion gap [Moles/Vol] 6 mmol/L 3 - 13 mmol/L [facility] Calcium [Mass/Vol] 8.7 mg/dL 8.4 - 10. 4 mg/dL [facility] Chloride [Moles/Vol] 101 mmol/L 98 - 10 7 mmol/L [facility] CO2 [Moles/Vol] 28 mmol/L 22 - 30 mmol/L [facility] Creatinine [Mass/Vol] 1.16 mg/dL 0.66 - 1.25 mg/dL [facility] GFR/1.73 sq M.predicted (S/P/Bld) [Vol rate/Area] 64.5 mL/min - PINF [facility] Comment on above: Calculation based on the Chronic Kidney Disease Epidemiology Collaboration (CKD-EPI) equation refit without adjustment for race Glucose [Mass/Vol] 93 mg/dL 70 - 100 mg/dL [facility] Interpretation and review of laboratory results Abnormal [facility] Potassium [Moles/Vol] 4.1 mmol/L 3.5 - 5.1 mmol/L [facility] Sodium [Moles/Vol] 134 mmol/L Low 135 - 145 mmol/L [facility] Urea nitrogen [Mass/Vol] 34 mg/dL High 9 - 20 mg/d L [facility] CBC W Auto Differential pane l (Bld)on 02-18-2024 Basophils (Bld) [#/Vol] 0.1 10*3/uL 0.0 - 0.2 10*3/uL [facility] Basophils/100 WBC (Bld) 1.4 % 0.0 - 2.0 % [facility] Eosinophils (Bld) [#/Vol] 0.2 10*3/uL 0.0 - 0.5 10*3/uL [facility] Eosinophils/100 WBC (Bld) 3.2 % 0.0 - 6.0 % [facility] Erythrocyte distribution width (RBC) [Ratio] 16.5 % High 11.5 - 15.0 % [facility] Hematocrit (Bld) [Volume fraction] 28.0 % Low 40.0 - 52.0 % [facility] Hemoglobin (Bld) [Mass/Vol] 8.8 g/dL Low 13.0 - 18.0 g/dL [facility] Immature granulocytes (Bld) [#/Vol] 0.0 10*3/uL NINF - 0.1 10*3/uL [facility] Immature granulocytes/100 WBC (Bld) 0.4 % 0.0 - 2.0 % [facility] Interpretation and review of laboratory results Abnormal [facility] Lymphocytes (Bld) [#/Vol] 0.9 10*3/uL Low 1.0 - 4.3 10*3/uL [facility] Lymphocytes/100 WBC (Bld) 12.6 % Low 15.0 - 45.0 % [facility] MCH (RBC) [Entitic mass] 29.3 pg 26. 0 - 34.0 pg [facility] MCHC (RBC) [Mass/Vol] 31.4 % 30.5 - 36.0 % [facility] MCV (RBC) [Entitic vol] 93.3 fL 77.0 - 99.0 fL [facility] Monocytes (Bld) [#/Vol] 0.8 10*3/uL 0.0 - 0.9 10*3/uL [facility] Monocytes/100 WBC (Bld) 10.5 % 5.0 - 13.0 % [facility] Neutrophils (Bld) [#/Vol] 5.2 10*3/uL 1.8 - 7.5 10*3/uL [facility] Neutrophils/100 WBC (Bld) 71.9 % 38.0 - 82.0 % [facility] Nucleated RBC/100 WBC (Bld) [Ratio] 0.0 % [facility] Platelet mean volume (Bld) [Entitic vol] 10.5 fL 9.0 - 12.7 fL [facility] Platelets (Bld) [#/Vol] 345 10*3/uL 140 - 440 10*3/uL [facility] RBC (Bld) [#/Vol] 3.00 10*6/uL Low 4.40 - 5.9 0 10*6/uL [facility] WBC (Bld) [#/Vol] 7.2 10*3/uL 3.6 - 10.7 10*3/uL [facility] CBC WITH AUTO DIFFERENTIALon 02-18-2024 Basophils (Bld) [#/Vol] 0.1 10*3/uL Normal 0.0-0.2 [facility] Comment on above: Performed By: #### L [id number] ####Popcorn Vendor: SILVA REED ([phone])[facility])[address] [place] [address] Basophils/100 WBC (Bld) 1.4 % Normal 0.0-2.0 [facility] Comment on above: Performed By: #### L [id number] ####Popcorn Vendor: SILVA REED ([phone])[facility])[address] [place] [address] Eosinophils (Bld) [#/Vol] 0.2 10*3/uL Normal 0.0-0.5 [facility] Comment on above: Performed By: #### L [id number] ####Popcorn Vendor: SILVA REED ([phone])[facility])[address] [place] [address] Eosinophils/100 WBC (Bld) 3.2 % Normal 0.0-6.0 [facility] Comment on above: Performed By: #### L [id number] ####Popcorn Vendor: SILVA REED ([id number])[facility])[address] [place] [address] Erythrocyte distribution width (RBC) [Ratio] 16.5 % High 11.5-15.0 [facility] Comment on above: Performed By: #### L [id number] ####Popcorn Vendor: SILVA REED ([id number])[address] Hematocrit (Bld) [Volume fraction] 28.0 % Low 40.0-52.0 [facility] Comment on above: Performed By: #### L [id number] ####Popcorn Vendor: SILVA REED ([id number])[facility])[address] [place] [address] Hemoglobin (Bld) [Mass/Vol] 8.8 g/dL Low 13.0-18.0 [facility] Comment on above: Performed By: #### L [id number] ####Popcorn Vendor: SILVA REED ([id number])[address] IMMATURE GRANS % 0.4 % Normal 0.0-2.0 [facility] Comment on above: Performed By: #### L [id number] ####Popcorn Vendor: SILVA REED ([id number])[address] IMMATURE GRANS ABSOLUTE 0.0 10*3/uL Normal <0.1 [facility] Comment on above: Performed By: #### L [id number] ####Popcorn Vendor: SILVA REED ([id number])[facility])[address] [place] [address] Lymphocytes (Bld) [#/Vol] 0.9 10*3/uL Low 1.0-4.3 [facility] Comment on above: Performed By: #### L [id number] ####Popcorn Vendor: SILVA REED ([id number])[address] Lymphocytes/100 WBC (Bld) 12.6 % Low 15.0-45.0 [facility] Comment on above: Performed By: #### L [id number] ####Popcorn Vendor: SILVA REED ([id number])[facility])[address] [place] [address] MCH (RBC) [Entitic mass] 29.3 pg Normal 26.0-34.0 [facility] Comment on above: Performed By: #### L [id number] ####Popcorn Vendor: SILVA REED ([id number])[facility])[address] [place] [address] MCHC 31.4 % Normal 30.5-36.0 [facility] Comment on above: Performed By: #### L [id number] ####Popcorn Vendor: SILVA REED ([id number])[address] MCV (RBC) [Entitic vol] 93.3 fL Normal 77.0-99.0 [facility] Comment on above: Performed By: #### L [id number] ####Popcorn Vendor: SILVA REED ([id number])[facility])[address] [place] [address] Monocytes (Bld) [#/Vol] 0.8 10*3/uL Normal 0.0-0.9 [facility] Comment on above: Performed By: #### L [id number] ####Popcorn Vendor: SILVA REED ([id number])[facility])[address] [place] [address] Monocytes/100 WBC (Bld) 10.5 % Normal 5.0-13.0 [facility] Comment on above: Performed By: #### L [id number] ####Popcorn Vendor: SILVA REED ([id number])[facility])[address] [place] [address] NEUTROPHILS ABSOLUTE 5.2 10*3/uL Normal 1.8-7.5 [facility] Comment on above: Performed By: #### L [id number] ####Popcorn Vendor: SILVA REED ([id number])[facility])[address] [place] [address] Neutrophils/100 WBC (Bld) 71.9 % Normal 38.0-82.0 [facility] Comment on above: Performed By: #### L [id number] ####Popcorn Vendor: SILVA REED ([id number])[facility])[address] [place] [address] NRBC 0.0 /100 WBCs Normal 0.0-2.0 [facility] Comment on above: Performed By: #### L [id number] ####Popcorn Vendor: SILVA REED ([id number])[facility] ([facility])[address] [place] [address] Platelet mean volume (Bld) [Entitic vol] 10.5 fL Normal 9.0-12.7 [facility] Comment on above: Performed By: #### L [id number] ####Popcorn Vendor: SILVA REED ([id number])[facility] ([facility])[address] [place] [address] Platelets (Bld) [#/Vol] 345 10*3/uL Normal 140-440 [facility] Comment on above: Performed By: #### L [id number] ####Popcorn Vendor: SILVA REED ([id number])[facility] ([facility])[address] [place] [address] RBC (Bld) [#/Vol] 3.00 10*6/uL Low 4.40-5.90 [facility] Comment on above: Performed By: #### L [id number] ####Popcorn Vendor: SILVA REED ([id number])[facility] ([facility])[address] [place] [address] WBC (Bld) [#/Vol] 7.2 10*3/uL Normal 3.6-10.7 [facility] Comment on above: Performed By: #### L [id number] ####Popcorn Vendor: SILVA REED ([id number])[facility] ([facility])[address] [place] [address] [place] IDNon 02-18-2024 IDN Normal [facility] No Panel Informationon 02-17 Technically successful uncomplicated ultrasound-guided left pigtail thoracostomy insertion. Report Dictated on Electronically Signed By: Jarek Gustafson MD Electronically Signed Date/Time: 02/18/2024 5:05 PM EDT [facility] Patient Name: DARIN BREAUX : 1945 [facility]#: [id number] Exam Date/Time: 02/18/2024 15:35 Procedure: US GUIDED CHEST TUBE PLACEMENT Ordering Provider: PATRICIA JENNIFER Reason For Exam: PLEURAL EFFUSION EXAMINATION: Ultrasound-guided left pigtail thoracostomy insertion. EXAM DATE & TIME: 02/18/2024 3:35 PM EDT INDICATION: PLEURAL EFFUSION ADDITIONAL INFORMATION: 79-year-old male with left pleural effusion presents for ultrasound-guided chest tube insertion COMPARISON: Thoracentesis dated 02/17/2024 INFORMED CONSENT: Written informed consent was obtained. The procedure, risks, benefits, and alternatives were discussed. All questions were answered. TIMEOUT: Physician-led timeout was conducted documenting correct patient, procedure, site, fire risk, antibiotics and allergies. COMPLICATIONS: None. ESTIMATED BLOOD LOSS: Less than 10 mL. MEDICATIONS: Antibiotics: None. Contrast dose: None. STERILE TECHNIQUE: All elements of maximal sterile technique were applied: cap, mask, sterile gown, proper hand hygiene including sterile gloves, a large sterile sheet, and hospital-approved cutaneous antisepsis at the site (2% chlorhexidine). A sterile probe cover and sterile gel were also used to ensure ultrasound sterility. ANESTHESIA/SEDATION: Local. PROCEDURE/TECHNIQUE: The patient was positioned in the sitting position on a hospital bed. Ultrasound surveillance of the posterior left chest was performed and a suitable needle entry site was designated. The site was then prepped and draped in the usual aseptic fashion. Local anesthesia was achieved with 1% lidocaine solution. A small skin incision was made and through it, an 18-gauge Chiba needle was advanced into the target pleural effusion. The inner stylette was withdrawn and a 10 mL sample was aspirated and made available to be sent to the lab for testing. Subsequently, a 0.035 inch Amplatz wire was advanced through the needle and the needle was removed. Serial fascial dilations were performed, followed by the placement of an 8 Italian locking pigtail drainage catheter. The pigtail was formed and the hub of the catheter was connected to an Atrium. The catheter was sutured to the skin using 2-0 silk suture. Post-procedural imaging was obtained. A sterile dressing was applied. The patient tolerated the procedure well without immediate complication and was transferred from the interventional suite in stable condition. FINDINGS: Ultrasound spot image demonstrates the targeted left pleural effusion and defines the pathway for needle passage. Postprocedural spot image demonstrates the presence of the thoracostomy within the pleural space. [facility] Jarek Gustafson MD - 02/18/2024 Patient Name: DARIN BREAUX : 1945 Exam Date/Time: 02/18/2024 15:35 Procedure: US GUIDED CHEST TUBE PLACEMENT Ordering Provider: PATRICIA JENNIFER Reason For Exam: PLEURAL EFFUSION EXAMINATION: Ultrasound-guided left pigtail thoracostomy insertion. EXAM DATE & TIME: 02/18/2024 3:35 PM EDT INDICATION: PLEURAL EFFUSION ADDITIONAL INFORMATION: 79-year-old male with left pleural effusion presents for ultrasound-guided chest tube insertion COMPARISON: Thoracentesis dated 02/17/2024 INFORMED CONSENT: Written informed consent was obtained. The procedure, risks, benefits, and alternatives were discussed. All questions were answered. TIMEOUT: Physician-led timeout was conducted documenting correct patient, procedure, site, fire risk, antibiotics and allergies. COMPLICATIONS: None. ESTIMATED BLOOD LOSS: Less than 10 mL. MEDICATIONS: Antibiotics: None. Contrast dose: None. STERILE TECHNIQUE: All elements of maximal sterile technique were applied: cap, mask, sterile gown, proper hand hygiene including sterile gloves, a large sterile sheet, and hospital-approved cutaneous antisepsis at the site (2% chlorhexidine). A sterile probe cover and sterile gel were also used to ensure ultrasound sterility. ANESTHESIA/SEDATION: Local. PROCEDURE/TECHNIQUE: The patient was positioned in the sitting position on a hospital bed. Ultrasound surveillance of the posterior left chest was performed and a suitable needle entry site was designated. The site was then prepped and draped in the usual aseptic fashion. Local anesthesia was achieved with 1% lidocaine solution. A small skin incision was made and through it, an 18-gauge Chiba needle was advanced into the target pleural effusion. The inner stylette was withdrawn and a 10 mL sample was aspirated and made available to be sent to the lab for testing. Subsequently, a 0.035 inch Amplatz wire was advanced through the needle and the needle was removed. Serial fascial dilations were performed, followed by the placement of an 8 Italian locking pigtail drainage catheter. The pigtail was formed and the hub of the catheter was connected to an Atrium. The catheter was sutured to the skin using 2-0 silk suture. Post-procedural imaging was obtained. A sterile dressing was applied. The patient tolerated the procedure well without immediate complication and was transferred from the interventional suite in stable condition. FINDINGS: Ultrasound spot image demonstrates the targeted left pleural effusion and defines the pathway for needle passage. Postprocedural spot image demonstrates the presence of the thoracostomy within the pleural space. IMPRESSION: Technically successful uncomplicated ultrasound-guided left pigtail thoracostomy insertion. Report Dictated on Electronically Signed By: Jarek Gustafson MD Electronically Signed Date/Time: 02/18/2024 5:05 PM EDT [facility] Radiology Study observation (narrative) [facility] Nursing Noteon 02-18-2024 Nursing Note Normal [facility] Progress Noteon 02-18-[address] [facility] Progress Note Normal [facility] Progress Note Normal [facility] Progress Note Normal [facility] US GUIDED CHEST TUBE PLACEME NTon 02-18-2024 US GUIDED CHEST TUBE PLACEMENT Normal [facility] XR CHEST 1 VIEWon 02-18-2024 XR CHEST 1 VIEW Normal [facility] XR Chest Single viewon 02-17 FINDINGS/IMPRESSION: Limitations: Patient positioning/rotation Lines, tubes, and devices: Multilead left-sided pacemaker device unchanged. Cardiomediastinal silhouette: Unchanged appearance to median sternotomy wires Lungs/Pleura: Small layering left greater than right pleural effusions with persistent bibasilar airspace disease, likely somewhat improved on the left and fairly similar in the right. Pulmonary vascular congestion is similar. No pneumothorax. Osseous structures: Unchanged in appearance. Soft tissues: No soft tissue abnormality is detected. Report Dictated on Electronically Signed By: Emmanuel Maldonado MD Electronically Signed Date/Time: 02/18/2024 8:17 AM EDT [facility] Patient Name: DARIN BREAUX : 1945 Exam Date/Time: 02/18/2024 06:44 Procedure: XR CHEST 1 VIEW Ordering Provider: PATRICIA JENNIFER Reason For Exam: DYSPNEA CHEST - PORTABLE: CLINICAL INDICATION: Respiratory distress for follow up. Dyspnea. TECHNIQUE: Portable AP COMPARISON: One day ago. [facility] Jesusita Maldonado MD - 02/18/2024 Patient Name: DARIN BREAUX : 1945 Exam Date/Time: 02/18/2024 06:44 Procedure: XR CHEST 1 VIEW Ordering Provider: PATRICIA JENNIFER Reason For Exam: DYSPNEA CHEST - PORTABLE: CLINICAL INDICATION: Respiratory distress for follow up. Dyspnea. TECHNIQUE: Portable AP COMPARISON: One day ago. IMPRESSION: FINDINGS/IMPRESSION: Limitations: Patient positioning/rotation Lines, tubes, and devices: Multilead left-sided pacemaker device unchanged. Cardiomediastinal silhouette: Unchanged appearance to median sternotomy wires Lungs/Pleura: Small layering left greater than right pleural effusions with persistent bibasilar airspace disease, likely somewhat improved on the left and fairly similar in the right. Pulmonary vascular congestion is similar. No pneumothorax. Osseous structures: Unchanged in appearance. Soft tissues: No soft tissue abnormality is detected. Report Dictated on Electronically Signed By: Emmanuel Maldonado MD Electronically Signed Date/Time: 02/18/2024 8:17 AM EDT [facility] Radiology Study observation (narrative) [facility] XR Chest Single viewOrdered By: Jesusita Maldonado on 02-18-2024 [employer] Work Phone: BASIC METABOLIC PANELon 07-3 Anion gap [Moles/Vol] 5 mmol/L Normal 3-[address] [facility] Comment on above: Performed By: #### L [id number] ####Popcorn Vendor: SILVA REED ([id number])[facility] ([facility])[address] [place] [address] Calcium [Mass/Vol] 9.0 mg/dL Normal 8.4-10.4 [facility] Comment on above: Performed By: #### L [id number] ####Popcorn Vendor: SILVA REED ([id number])[facility] [place] [address] Chloride [Moles/Vol] 99 mmol/L Normal 98-107 [facility] Comment on above: Performed By: #### L [id number] ####Popcorn Vendor: SILVA REED ([id number])[facility] [place] [address] CO2 [Moles/Vol] 32 mmol/L High 22-30 [facility] Comment on above: Performed By: #### L [id number] ####Popcorn Vendor: SILVA REED ([id number])[facility] ([facility])[address] [place] [address] Creatinine [Mass/Vol] 1.38 mg/dL High 0.66-1.[address] [facility] Comment on above: Performed By: #### L [id number] ####Popcorn Vendor: SILVA REED ([id number])[facility] ([facility])[address] [place] [address] GLOMERULAR FILTRATION RATE ML/MIN/1.73 SQ M.PREDICTED 52.3 mL/min/1.73m*2 Low >60.0 [facility] Comment on above: Result Comment: Calc ulation based on the Chronic Kidney Disease Epidemiology Collaboration (CKD-EPI) equation refit without adjustment for race Performed By: #### L [id number] ####Popcorn Vendor: SILVA REED ([id number])[facility] [place] [address] Glucose [Mass/Vol] 103 mg/dL High 70-100 [facility] Comment on above: Performed By: #### L [id number] ####Popcorn Vendor: SILVA REED ([id number])[facility] ([facility])[address] [place] [address] Potassium [Moles/Vol] 4.1 mmol/L Normal 3.5-5.[address] [facility] Comment on above: Performed By: #### L [id number] ####Popcorn Vendor: SILVA REED ([id number])[facility] [place] [address] Sodium [Moles/Vol] 136 mmol/L Normal 135-145 [facility] Comment on above: Performed By: #### L [id number] ####Popcorn Vendor: SILVA REED ([id number])[facility] ([facility])[address] [place] [address] Urea nitrogen [Mass/Vol] 29 mg/dL High 9-20 [facility] Comment on above: Performed By: #### L [id number] ####Popcorn Vendor: SILVA REED ([id number])[facility] ([facility])[address] [place] [address] Basic metabolic 1998 panelon 02-17-2024 Anion gap [Moles/Vol] 5 mmol/L 3 - 13 mmol/L [facility] Calcium [Mass/Vol] 9.0 mg/dL 8.4 - 10. 4 mg/dL [facility] Chloride [Moles/Vol] 99 mmol/L 98 - 10 7 mmol/L [facility] CO2 [Moles/Vol] 32 mmol/L High 22 - 30 mmol/L [facility] Creatinine [Mass/Vol] 1.38 mg/dL High 0.66 - 1.25 mg/dL [facility] GFR/1.73 sq M.predicted (S/P/Bld) [Vol rate/Area] 52.3 mL/min Low - PINF [facility] Comment on above: Calculation based on the Chronic Kidney Disease Epidemiology Collaboration (CKD-EPI) equation refit without adjustment for race Glucose [Mass/Vol] 103 mg/dL High 70 - 100 mg/dL [facility] Interpretation and review of laboratory results Abnormal [facility] Potassium [Moles/Vol] 4.1 mmol/L 3.5 - 5.1 mmol/L [facility] Sodium [Moles/Vol] 136 mmol/L 135 - 145 mmol/L [facility] Urea nitrogen [Mass/Vol] 29 mg/dL High 9 - 20 mg/d L [facility] CARECOORDon 02-17-2024 CARECOORD Normal [facility] CBC W Auto Differential pane l (Bld)on 02-17-2024 Basophils (Bld) [#/Vol] 0.1 10*3/uL 0.0 - 0.2 10*3/uL [facility] Basophils/100 WBC (Bld) 1.7 % 0.0 - 2.0 % [facility] Eosinophils (Bld) [#/Vol] 0.2 10*3/uL 0.0 - 0.5 10*3/uL [facility] Eosinophils/100 WBC (Bld) 2.2 % 0.0 - 6.0 % [facility] Erythrocyte distribution width (RBC) [Ratio] 16.5 % High 11.5 - 15.0 % [facility] Hematocrit (Bld) [Volume fraction] 27.1 % Low 40.0 - 52.0 % [facility] Hemoglobin (Bld) [Mass/Vol] 8.4 g/dL Low 13.0 - 18.0 g/dL [facility] Immature granulocytes (Bld) [#/Vol] 0.0 10*3/uL NINF - 0.1 10*3/uL [facility] Immature granulocytes/100 WBC (Bld) 0.5 % 0.0 - 2.0 % [facility] Interpretation and review of laboratory results Abnormal [facility] Lymphocytes (Bld) [#/Vol] 0.7 10*3/uL Low 1.0 - 4.3 10*3/uL [facility] Lymphocytes/100 WBC (Bld) 9.0 % Low 15.0 - 45.0 % [facility] MCH (RBC) [Entitic mass] 29.1 pg 26. 0 - 34.0 pg [facility] MCHC (RBC) [Mass/Vol] 31.0 % 30.5 - 36.0 % [facility] MCV (RBC) [Entitic vol] 93.8 fL 77.0 - 99.0 fL [facility] Monocytes (Bld) [#/Vol] 0.7 10*3/uL 0.0 - 0.9 10*3/uL [facility] Monocytes/100 WBC (Bld) 9.0 % 5.0 - 13.0 % [facility] Neutrophils (Bld) [#/Vol] 6.3 10*3/uL 1.8 - 7.5 10*3/uL [facility] Neutrophils/100 WBC (Bld) 77.6 % 38.0 - 82.0 % [facility] Nucleated RBC/100 WBC (Bld) [Ratio] 0.0 % [facility] Platelet mean volume (Bld) [Entitic vol] 10.3 fL 9.0 - 12.7 fL [facility] Platelets (Bld) [#/Vol] 361 10*3/uL 140 - 440 10*3/uL [facility] RBC (Bld) [#/Vol] 2.89 10*6/uL Low 4.40 - 5.9 0 10*6/uL [facility] WBC (Bld) [#/Vol] 8.1 10*3/uL 3.6 - 10.7 10*3/uL [facility] CBC WITH AUTO DIFFERENTIALon 02-17-2024 Basophils (Bld) [#/Vol] 0.1 10*3/uL Normal 0.0-0.2 [facility] Comment on above: Performed By: #### L [id number] ####Popcorn Vendor: SILVA [id number])[facility] ([facility])[address] [place] [address] Basophils/100 WBC (Bld) 1.7 % Normal 0.0-2.0 [facility] Comment on above: Performed By: #### L [id number] ####Popcorn Vendor: SILVA [id number])[facility] ([facility])[address] [place] [address] Eosinophils (Bld) [#/Vol] 0.2 10*3/uL Normal 0.0-0.5 [facility] Comment on above: Performed By: #### L [id number] ####Popcorn Vendor: SILVA [id number])[facility])[address] [place] [address] Eosinophils/100 WBC (Bld) 2.2 % Normal 0.0-6.0 [facility] Comment on above: Performed By: #### L [id number] ####Popcorn Vendor: SILVA REED ([id number])[facility])[address] [place] [address] Erythrocyte distribution width (RBC) [Ratio] 16.5 % High 11.5-15.0 [facility] Comment on above: Performed By: #### L [id number] ####Popcorn Vendor: SILVA REED ([id number])[facility])[address] [place] [address] Hematocrit (Bld) [Volume fraction] 27.1 % Low 40.0-52.0 [facility] Comment on above: Performed By: #### L [id number] ####Popcorn Vendor: SILVA REED ([id number])[facility])[address] [place] [address] Hemoglobin (Bld) [Mass/Vol] 8.4 g/dL Low 13.0-18.0 [facility] Comment on above: Performed By: #### L [id number] ####Popcorn Vendor: SILVA REED ([id number])[facility])[address] [place] [address] IMMATURE GRANS % 0.5 % Normal 0.0-2.0 [facility] Comment on above: Performed By: #### L [id number] ####Popcorn Vendor: SILVA REED ([id number])[facility])[address] [place] [address] IMMATURE GRANS ABSOLUTE 0.0 10*3/uL Normal <0.1 [facility] Comment on above: Performed By: #### L [id number] ####Popcorn Vendor: SILVA REED ([id number])[facility])[address] [place] [address] [place] Lymphocytes (Bld) [#/Vol] 0.7 10*3/uL Low 1.0-4.3 [facility] Comment on above: Performed By: #### L [id number] ####Popcorn Vendor: SILVA REED ([id number])[facility])[address] [place] [address] Lymphocytes/100 WBC (Bld) 9.0 % Low 15.0-45.0 [facility] Comment on above: Performed By: #### L [id number] ####Popcorn Vendor: SILVA REED ([id number])[facility])[address] [place] [address] MCH (RBC) [Entitic mass] 29.1 pg Normal 26.0-34.0 [facility] Comment on above: Performed By: #### L [id number] ####Popcorn Vendor: SILVA REED ([id number])[facility])[address] [place] [address] MCHC 31.0 % Normal 30.5-36.0 [facility] Comment on above: Performed By: #### L [id number] ####Popcorn Vendor: SILVA REED ([id number])[facility])[address] [place] [address] MCV (RBC) [Entitic vol] 93.8 fL Normal 77.0-99.0 [facility] Comment on above: Performed By: #### L [id number] ####Popcorn Vendor: SILVA REED ([id number])[facility])[address] [place] [address] Monocytes (Bld) [#/Vol] 0.7 10*3/uL Normal 0.0-0.9 [facility] Comment on above: Performed By: #### L [id number] ####Popcorn Vendor: SILVA REED ([id number])[facility])[address] [place] [address] Monocytes/100 WBC (Bld) 9.0 % Normal 5.0-13.0 [facility] Comment on above: Performed By: #### L [id number] ####Popcorn Vendor: SILVA REED ([id number])[facility] ([facility])[address] [place] [address] NEUTROPHILS ABSOLUTE 6.3 10*3/uL Normal 1.8-7.5 [facility] Comment on above: Performed By: #### L [id number] ####Popcorn Vendor: SILVA REED ([id number])[facility] ([facility])[address] [place] [address] Neutrophils/100 WBC (Bld) 77.6 % Normal 38.0-82.0 [facility] Comment on above: Performed By: #### L [id number] ####Popcorn Vendor: SILVA REED ([id number])[facility] ([facility])[address] [place] [address] NRBC 0.0 /100 WBCs Normal 0.0-2.0 [facility] Comment on above: Performed By: #### L [id number] ####Popcorn Vendor: SILVA REED ([id number])[facility] ([facility])[address] [place] [address] Platelet mean volume (Bld) [Entitic vol] 10.3 fL Normal 9.0-12.7 [facility] Comment on above: Performed By: #### L [id number] ####Popcorn Vendor: SILVA REED ([id number])[facility] ([facility])[address] [place] [address] Platelets (Bld) [#/Vol] 361 10*3/uL Normal 140-440 [facility] Comment on above: Performed By: #### L [id number] ####Popcorn Vendor: SILVA REED ([id number])[facility] ([facility])[address] [place] [address] RBC (Bld) [#/Vol] 2.89 10*6/uL Low 4.40-5.90 [facility] Comment on above: Performed By: #### L [id number] ####Popcorn Vendor: SILVA REED ([id number])[facility])[address] [place] [address] WBC (Bld) [#/Vol] 8.1 10*3/uL Normal 3.6-10.7 [facility] Comment on above: Performed By: #### L [id number] ####Popcorn Vendor: SILVA REED ([id number])[facility])[address] [place] [address] COMPLETE URINALYSISon 2023 BILIRUBIN, TOTAL PRESENCE IN URINE Negative Normal Negative [facility] Comment on above: Performed By: #### L [id number] ####Popcorn Vendor: SILVA REED ([id number])[facility])[address] [place] [address] Clarity (U) Clear Normal Clear [facility] Comment on above: Performed By: #### L [id number] ####Popcorn Vendor: SILVA REED ([id number])[facility])[address] [place] [address] Color (U) Light Yellow Normal Lt. Yellow [facility] Comment on above: Performed By: #### L [id number] ####Popcorn Vendor: SILVA REED ([id number])[facility])[address] [place] [address] GLUCOSE (MG/DL) IN URINE Normal Normal Normal (<70 ) [facility] Comment on above: Performed By: #### L [id number] ####Popcorn Vendor: SILVA REED ([id number])[facility])[address] [place] [address] HEMOGLOBIN PRESENCE IN URINE Negative Normal Negative [facility] Comment on above: Performed By: #### L [id number] ####Popcorn Vendor: SILVA REED ([id number])[facility])[address] [place] [address] Ketones Ql (U) Negative Normal Negative [facility] Comment on above: Performed By: #### L [id number] ####Popcorn Vendor: SILVA REED ([id number])[facility] [place] [address] LEUKOCYTE ESTERASE PRESENCE IN URINE BY TEST STRIP Negative Normal Negative [facility] Comment on above: Performed By: #### L [id number] ####Popcorn Vendor: SILVA REED ([id number])[facility] ([facility])[address] [place] [address] NITRITE PRESENCE IN URINE Negative Normal Negative [facility] Comment on above: Performed By: #### L [id number] ####Popcorn Vendor: SILVA REED ([id number])[facility] ([facility])[address] [place] [address] pH (U) 5.0 [pH] Normal 5.0-8.0 [facility] Comment on above: Performed By: #### L [id number] ####Popcorn Vendor: SILVA REED ([id number])[facility] ([facility])[address] [place] [address] Protein (U) [Mass/Vol] Negative Normal Negative [facility] Comment on above: Performed By: #### L [id number] ####Popcorn Vendor: SILVA REED ([id number])[facility] ([facility])[address] [place] [address] Specific gravity (U) [Rel density] 1.010 Normal 1.005-1.030 [facility] Comment on above: Performed By: #### L [id number] ####Popcorn Vendor: SILVA REED ([id number])[facility] ([facility])[address] [place] [address] [place] UROBILINOGEN (MG/DL) IN URINE Normal Normal Normal (0-1) [facility] Comment on above: Performed By: #### L [id number] ####Popcorn Vendor: SILVA REED ([id number])[facility] ([facility])[address] [place] [address] [place] CREATININE, URINE, RANDOMon 02-17-2024 CREATININE, URINE 50.1 mg/dL Normal No Range [facility] Comment on above: Performed By: #### L [id number], [id number], [id number] ####Popcorn Vendor: SILVA REED ([id number])[facility] ([facility])[address] [place] [address] Consulton 02-17-2024 Consult Normal [facility] Creatinine (U) [Mass/Vol]on 02-17-2024 CREATININE, URINE 50.1 mg/dL No Range [facility] Laboratory - Chemistry and C hemistry - challengeon 02-17-2024 Osmolality [Osmolality] 294 mosm/kg [facility] Sodium (24H U) [Mass/Vol] 128 mmol/L High 30 - 90 mmol/L [facility] No Panel Informationon 02-16 Successful ultrasound-guided left thoracentesis with drainage of 1000 mL of dark red fluid. Moderate residual pleural effusion. PROCEDURE SUMMARY: - Limited thoracic ultrasound - Ultrasound-guided thoracentesis - Additional procedure(s): None PROCEDURE DETAILS: Pre-procedure Consent: Informed consent for the procedure including risks, benefits and alternatives was obtained and time-out was performed prior to the procedure. Preparation: The site was prepared and draped using maximal sterile barrier technique including cutaneous antisepsis. Anesthesia/sedation None Limited thoracic ultrasound Limited thoracic ultrasound was performed using a curved transducer. A safe window for thoracentesis was identified. Moderate to large pleural effusion was seen on the side of aspiration. The contralateral side was not investigated. Thoracentesis Local anesthesia was administered. Ultrasound was used to pick a safe access site. A permanent image was stored. The pleural space was accessed and fluid return confirmed position. The fluid was drained. Catheter placed: 5F Yueh Closure The catheter was removed. A sterile bandage was applied. Post-drainage hemithorax findings: Minimal effusion Additional Details Additional description of procedure: None Equipment details: None Specimens removed: Pleural fluid Estimated blood loss (mL): Less than 10 Report Dictated on Electronically Signed By: Shazia Foss PA-C Electronically Signed Date/Time: 02/17/2024 12:23 PM [employer] Patient Name: DARIN BREAUX : 1945 Exam Date/Time: 02/17/2024 12:02 Procedure: US GUIDED THORACENTESIS Ordering Provider: PATRICIA JENNIFER Reason For Exam: DYSPNEA PROCEDURE: Ultrasound-guided left thoracentesis Procedural Personnel Attending physician(s): Wang Power M.D. Advanced practice provider(s): Shazia Foss PA-C bottom crane operator: Shazia Foss PA-C Attending physician was available in the department if needed. Indication: Pleural effusion Additional clinical history: None Complications: No immediate complications. [facility] Shazia Foss PA-C - 02/17/2024 Patient Name: DARIN BREAUX : 1945 Exam Date/Time: 02/17/2024 12:02 Procedure: US GUIDED THORACENTESIS Ordering Provider: PATRICIA JENNIFER Reason For Exam: DYSPNEA PROCEDURE: Ultrasound-guided left thoracentesis Procedural Personnel Attending physician(s): Wang Power M.D. Advanced practice provider(s): Shazia Foss PA-C bottom crane operator: Shazia Foss PA-C Attending physician was available in the department if needed. Indication: Pleural effusion Additional clinical history: None Complications: No immediate complications. IMPRESSION: Successful ultrasound-guided left thoracentesis with drainage of 1000 mL of dark red fluid. Moderate residual pleural effusion. PROCEDURE SUMMARY: - Limited thoracic ultrasound - Ultrasound-guided thoracentesis - Additional procedure(s): None PROCEDURE DETAILS: Pre-procedure Consent: Informed consent for the procedure including risks, benefits and alternatives was obtained and time-out was performed prior to the procedure. Preparation: The site was prepared and draped using maximal sterile barrier technique including cutaneous antisepsis. Anesthesia/sedation None Limited thoracic ultrasound Limited thoracic ultrasound was performed using a curved transducer. A safe window for thoracentesis was identified. Moderate to large pleural effusion was seen on the side of aspiration. The contralateral side was not investigated. Thoracentesis Local anesthesia was administered. Ultrasound was used to pick a safe access site. A permanent image was stored. The pleural space was accessed and fluid return confirmed position. The fluid was drained. Catheter placed: 5F Yueh Closure The catheter was removed. A sterile bandage was applied. Post-drainage hemithorax findings: Minimal effusion Additional Details Additional description of procedure: None Equipment details: None Specimens removed: Pleural fluid Estimated blood loss (mL): Less than 10 Report Dictated on Electronically Signed By: Shazia Foss PA-C Electronically Signed Date/Time: 02/17/2024 12:23 PM EDT [facility] Radiology Study observation (narrative) [facility] Interpretation and review of laboratory results Normal [facility] Interpretation and review of laboratory results Abnormal [facility] No Panel InformationOrdered By: Shazia Foss on 02-17-2024 [facility] Work Phone: No Panel InformationOrdered By: Marquis Cota on 02-17-2024 Interpretation and review of laboratory results Normal [facility] OSMOLALITY, URINE 399 [facility] Nursing Noteon 02-17-2024 Nursing Note Messaged attending for multiple BP readings of systolic in 80's and diastolic in the 50's. Pt is asymptomatic and color is good. Thoracentesis site is clean, intact, and dry. No new orders at this time. Normal [facility] Nursing Note Normal [facility] OSMOLALITY, SERUMon 02-17-20 24 OSMOLALITY, SERUM 294 mOsm/kg Normal 280-300 [facility] Comment on above: Performed By: #### L [id number] ####Popcorn Vendor: SILVA REED ([phone])[address] OSMOLALITY, URINEon 02-17-20 24 OSMOLALITY, URINE 399 mOsm/kg Normal 300-1000 [facility] Comment on above: Performed By: #### L [id number], [id number], [id number] ####Popcorn Vendor: SILVA REED ([id number])[facility])[address] [place] [address] Progress Noteon 02-17-2024 Progress Note Normal [facility] Progress Note .Nutrition rescreen completed. Chart reviewed. Patient to be monitored and followed by the diet field support technician. REBECA Morales Normal [facility] SODIUM, URINE, RANDOMon 01-19 Sodium (U) [Moles/Vol] 128 mmol/L High 30-90 [facility] Comment on above: Performed By: #### L [id number], [id number], [id number] ####Popcorn Vendor: SILVA REED ([id number])[facility] ([facility])[address] [place] [address] US GUIDED THORACENTESISon US GUIDED THORACENTESIS Normal [facility] Urinalysis complete panel (U )on 02-17-2024 Bilirubin Ql (U) Negative Negative mg/dL [facility] Clarity (U) Clear Clear [facility] Color (U) Light Yellow Lt. Yellow [facility] Glucose Ql (U) Normal Normal (<70) mg/dL [facility] Hemoglobin Ql (U) Negative Negative mg/dL [facility] Interpretation and review of laboratory results Normal [facility] Ketones (U) [Mass/Vol] Negative Negat uvaldo mg/dL [facility] Leukocyte esterase Test strip Ql (U) Negative Negative Cristela/uL [facility] Nitrite Ql (U) Negative Negative [facility] th pH (U) 5.0 [pH] 5.0 - 8.0 pH [facility] Protein (U) [Mass/Vol] Negative Negat uvaldo mg/dL [facility] Specific gravity (U) [Rel density] 1.010 1.005 - 1.030 [facility] Urobilinogen (U) [Mass/Vol] Normal Normal (0-1) mg/dL [facility] XR CHEST 1 VIEWon 02-17-2024 XR CHEST 1 VIEW Normal [facility] XR Chest Single viewon 02-16 1. Lines/Tubes/Devices/ Hardware: Stable projection of pacer and leads. Please confirm position and function of any catheters or attempted catheters clinically. 2. Lungs: Persistent bibasilar infiltrates and effusion. Limited due to portable technique. Consider follow-up with PA and lateral chest for persistent symptoms. 3. Pleura: See above. No significant pneumothorax. 4. Heart and mediastinum: Limited due to technique. 5. Upper abdomen: No acute process seen. 6. Thorax:No acute bony process Report Dictated on Electronically Signed By: Artemio Field MD Electronically Signed Date/Time: 02/17/2024 7:22 AM [facility] [facility] Patient Name: DARIN BREAUX DOB: 1945 Exam Date/Time: 02/17/2024 06:44 Procedure: XR CHEST 1 VIEW Ordering Provider: PATRICIA JENNIFER Reason For Exam: DYSPNEA EXAM TYPE: RADIOLOGIC EXAMINATION, CHEST, SINGLE VIEW FRONTAL (CXR SINGLE VIEW) EXAM DATE AND TIME: 02/17/2024 6:44 AM EDT INDICATION: Respiratory distress COMPARISON: 02/16/2024 TECHNIQUE: A single frontal view of the thorax was obtained and reviewed. Special views: None. [facility] Artemio Field MD - 02/17/2024 Patient Name: DARIN BREAUX : 1945 Exam Date/Time: 02/17/2024 06:44 Procedure: XR CHEST 1 VIEW Ordering Provider: PATRICIA JENNIFER Reason For Exam: DYSPNEA EXAM TYPE: RADIOLOGIC EXAMINATION, CHEST, SINGLE VIEW FRONTAL (CXR SINGLE VIEW) EXAM DATE AND TIME: 02/17/2024 6:44 AM EDT INDICATION: Respiratory distress COMPARISON: 02/16/2024 TECHNIQUE: A single frontal view of the thorax was obtained and reviewed. Special views: None. IMPRESSION: 1. Lines/Tubes/Devices/ Hardware: Stable projection of pacer and leads. Please confirm position and function of any catheters or attempted catheters clinically. 2. Lungs: Persistent bibasilar infiltrates and effusion. Limited due to portable technique. Consider follow-up with PA and lateral chest for persistent symptoms. 3. Pleura: See above. No significant pneumothorax. 4. Heart and mediastinum: Limited due to technique. 5. Upper abdomen: No acute process seen. 6. Thorax:No acute bony process Report Dictated on Electronically Signed By: Artemio Field MD Electronically Signed Date/Time: 02/17/2024 7:22 AM EDT [facility] Radiology Study observation (narrative) [facility] Chest Single viewOrdered By: Artemio Field on 02-17-2024 [employer] Work Phone: CARECO[employer]Don 02-16-2024 [facility] Normal [facility] CBC W Auto Differential pane l (Bld)Ordered By: Shanell Winn on 02-16-2024 Basophils (Bld) [#/Vol] 0.1 10*3/uL 0.0 - 0.2 10*3/uL [facility] Basophils/100 WBC (Bld) 1.7 % 0.0 - 2.0 % [facility] Eosinophils (Bld) [#/Vol] 0.1 10*3/uL 0.0 - 0.5 10*3/uL [facility] Eosinophils/100 WBC (Bld) 1.8 % 0.0 - 6.0 % [facility] Erythrocyte distribution width (RBC) [Ratio] 16.4 % High 11.5 - 15.0 % [facility] Hematocrit (Bld) [Volume fraction] 25.8 % Low 40.0 - 52.0 % [facility] Hemoglobin (Bld) [Mass/Vol] 7.8 g/dL Low 13.0 - 18.0 g/dL [facility] Immature granulocytes (Bld) [#/Vol] 0.0 10*3/uL NINF - 0.1 10*3/uL [facility] Immature granulocytes/100 WBC (Bld) 0.6 % 0.0 - 2.0 % [facility] Interpretation and review of laboratory results Abnormal [facility] Lymphocytes (Bld) [#/Vol] 0.7 10*3/uL Low 1.0 - 4.3 10*3/uL [facility] Lymphocytes/100 WBC (Bld) 9.8 % Low 15.0 - 45.0 % [facility] MCH (RBC) [Entitic mass] 29.5 pg 26. 0 - 34.0 pg [facility] MCHC (RBC) [Mass/Vol] 30.2 % Low 30.5 - 36.0 % [facility] MCV (RBC) [Entitic vol] 97.7 fL 77.0 - 99.0 fL [facility] Monocytes (Bld) [#/Vol] 0.8 10*3/uL 0.0 - 0.9 10*3/uL [facility] Monocytes/100 WBC (Bld) 10.5 % 5.0 - 13.0 % [facility] Neutrophils (Bld) [#/Vol] 5.4 10*3/uL 1.8 - 7.5 10*3/uL [facility] Neutrophils/100 WBC (Bld) 75.6 % 38.0 - 82.0 % [facility] Nucleated RBC/100 WBC (Bld) [Ratio] 0.0 % [facility] Platelet mean volume (Bld) [Entitic vol] 10.6 fL 9.0 - 12.7 fL [facility] Platelets (Bld) [#/Vol] 317 10*3/uL 140 - 440 10*3/uL [facility] RBC (Bld) [#/Vol] 2.64 10*6/uL Low 4.40 - 5.9 0 10*6/uL [facility] WBC (Bld) [#/Vol] 7.1 10*3/uL 3.6 - 10.7 10*3/uL [facility] CBC WITH AUTO DIFFERENTIALon 02-16-2024 Basophils (Bld) [#/Vol] 0.1 10*3/uL Normal 0.0-0.2 [facility] Comment on above: Performed By: #### L [id number] ####Popcorn Vendor: SILVA REED ([id number])[facility])[address] [place] [address] Basophils/100 WBC (Bld) 1.7 % Normal 0.0-2.0 [facility] Comment on above: Performed By: #### L [id number] ####Popcorn Vendor: SILVA REED ([id number])[facility])[address] [place] [address] [place] Eosinophils (Bld) [#/Vol] 0.1 10*3/uL Normal 0.0-0.5 [facility] Comment on above: Performed By: #### L [id number] ####Popcorn Vendor: SILVA REED ([id number])[facility])[address] [place] [address] Eosinophils/100 WBC (Bld) 1.8 % Normal 0.0-6.0 [facility] Comment on above: Performed By: #### L [id number] ####Popcorn Vendor: SILVA REED ([id number])[facility])[address] [place] [address] Erythrocyte distribution width (RBC) [Ratio] 16.4 % High 11.5-15.0 [facility] Comment on above: Performed By: #### L [id number] ####Popcorn Vendor: SILVA REED ([id number])[facility])[address] [place] [address] Hematocrit (Bld) [Volume fraction] 25.8 % Low 40.0-52.0 [facility] Comment on above: Performed By: #### L [id number] ####Popcorn Vendor: SILVA REED ([id number])[facility])[address] [place] [address] Hemoglobin (Bld) [Mass/Vol] 7.8 g/dL Low 13.0-18.0 [facility] Comment on above: Performed By: #### L [id number] ####Popcorn Vendor: SILVA REED ([id number])[facility] ([facility])[address] [place] [address] IMMATURE GRANS % 0.6 % Normal 0.0-2.0 [facility] Comment on above: Performed By: #### L [id number] ####Popcorn Vendor: SILVA REED ([id number])[facility])[address] [place] [address] IMMATURE GRANS ABSOLUTE 0.0 10*3/uL Normal <0.1 [facility] Comment on above: Performed By: #### L [id number] ####Popcorn Vendor: SILVA REED ([id number])[facility])[address] [place] [address] Lymphocytes (Bld) [#/Vol] 0.7 10*3/uL Low 1.0-4.3 [facility] Comment on above: Performed By: #### L [id number] ####Popcorn Vendor: SILVA REED ([id number])[facility])[address] [place] [address] [place] Lymphocytes/100 WBC (Bld) 9.8 % Low 15.0-45.0 [facility] Comment on above: Performed By: #### L [id number] ####Popcorn Vendor: SILVA REED ([id number])[facility] ([facility])[address] [place] [address] MCH (RBC) [Entitic mass] 29.5 pg Normal 26.0-34.0 [facility] Comment on above: Performed By: #### L [id number] ####Popcorn Vendor: SILVA REED ([id number])[facility] ([facility])[address] [place] [address] MCHC 30.2 % Low 30.5-36.0 [facility] Comment on above: Performed By: #### L [id number] ####Popcorn Vendor: SILVA REED ([id number])[facility])[address] [place] [address] MCV (RBC) [Entitic vol] 97.7 fL Normal 77.0-99.0 [facility] Comment on above: Performed By: #### L [id number] ####Popcorn Vendor: SILVA REED ([id number])[facility] ([facility])[address] [place] [address] Monocytes (Bld) [#/Vol] 0.8 10*3/uL Normal 0.0-0.9 [facility] Comment on above: Performed By: #### L [id number] ####Popcorn Vendor: SILVA REED ([id number])[facility] ([facility])[address] [place] [address] Monocytes/100 WBC (Bld) 10.5 % Normal 5.0-13.0 [facility] Comment on above: Performed By: #### L [id number] ####Popcorn Vendor: SILVA REED ([id number])[facility])[address] [place] [address] NEUTROPHILS ABSOLUTE 5.4 10*3/uL Normal 1.8-7.5 [facility] Comment on above: Performed By: #### L [id number] ####Popcorn Vendor: SILVA REED ([id number])[facility] ([facility])[address] [place] [address] Neutrophils/100 WBC (Bld) 75.6 % Normal 38.0-82.0 [facility] Comment on above: Performed By: #### L [id number] ####Popcorn Vendor: SILVA REED ([id number])[facility] ([facility])[address] [place] [address] NRBC 0.0 /100 WBCs Normal 0.0-2.0 [facility] Comment on above: Performed By: #### L [id number] ####Popcorn Vendor: SILVA REED ([id number])[facility])[address] [place] [address] Platelet mean volume (Bld) [Entitic vol] 10.6 fL Normal 9.0-12.7 [facility] Comment on above: Performed By: #### L [id number] ####Popcorn Vendor: SILVA REED ([id number])[facility] ([facility])[address] [place] [address] Platelets (Bld) [#/Vol] 317 10*3/uL Normal 140-440 [facility] Comment on above: Performed By: #### L [id number] ####Popcorn Vendor: SILVA REED ([id number])[facility] ([facility])[address] [place] [address] RBC (Bld) [#/Vol] 2.64 10*6/uL Low 4.40-5.90 [facility] Comment on above: Performed By: #### L [id number] ####Popcorn Vendor: SILVA REED ([phone])[facility])[address] [place] [address] WBC (Bld) [#/Vol] 7.1 10*3/uL Normal 3.6-10.7 [facility] Comment on above: Performed By: #### L [id number] ####Popcorn Vendor: SILVA REED ([id number])[facility] ([facility])[address] [place] [address] COMPREHENSIVE METABOLIC PANE Luis Eduardo 02-16-2024 Albumin [Mass/Vol] 2.8 g/dL Low 3.5-5.0 [facility] Comment on above: Performed By: #### L [id number] ####Popcorn Vendor: SILVA REED ([id number])[facility] ([facility])[address] [place] [address] ALP [Catalytic activity/Vol] 60 U/L Normal 38-126 [facility] Comment on above: Performed By: #### L AB17 ####Popcorn Vendor: SILVA REED ([id number])[facility] ([facility])[address] [place] [address] ALT [Catalytic activity/Vol] 33 U/L Normal 0-49 [facility] Comment on above: Performed By: #### L AB17 ####Popcorn Vendor: SILVA REED ([id number])[facility] ([facility])[address] [place] [address] Anion gap [Moles/Vol] 4 mmol/L Normal 3-13 [facility] Comment on above: Performed By: #### L AB17 ####Popcorn Vendor: SILVA REED ([id number])[facility] ([facility])[address] [place] [address] AST [Catalytic activity/Vol] 27 U/L Normal 15-46 [facility] Comment on above: Performed By: #### L AB17 ####Popcorn Vendor: SILVA REED ([id number])[facility] ([facility])[address] [place] [address] [place] Bilirubin [Mass/Vol] 0.3 mg/dL Normal 0.2-1.3 [facility] Comment on above: Performed By: #### L AB17 ####Popcorn Vendor: SILVA REED ([id number])[facility] ([facility])[address] [place] [address] [place] Calcium [Mass/Vol] 8.7 mg/dL Normal 8.4-10.4 [facility] Comment on above: Performed By: #### L AB17 ####Popcorn Vendor: SILVA REED ([id number])[facility] ([facility])[address] [place] [address] Chloride [Moles/Vol] 105 mmol/L Normal 98-107 [facility] Comment on above: Performed By: #### L AB17 ####Popcorn Vendor: SILVA REED ([id number])[facility] ([facility])[address] [place] [address] CO2 [Moles/Vol] 27 mmol/L Normal 22-30 [facility] Comment on above: Performed By: #### L AB17 ####Popcorn Vendor: SILVA REED ([id number])[facility] ([facility])[address] [place] [address] Creatinine [Mass/Vol] 1.04 mg/dL Normal 0.66-1.[address] [facility] Comment on above: Performed By: #### L AB17 ####Popcorn Vendor: SILVA REED ([id number])[facility] ([facility])[address] [place] [address] [place] GLOMERULAR FILTRATION RATE ML/MIN/1.73 SQ M.PREDICTED 73.5 mL/min/1.73m*2 Normal >60.0 [facility] Comment on above: Result Comment: Calc ulation based on the Chronic Kidney Disease Epidemiology Collaboration (CKD-EPI) equation refit without adjustment for race Performed By: #### L AB17 ####Popcorn Vendor: SILVA REED ([id number])[facility] [place] [address] [place] Glucose [Mass/Vol] 98 mg/dL Normal 70-100 [facility] Comment on above: Performed By: #### L AB17 ####Popcorn Vendor: SILVA REED ([id number])[facility] ([facility])[address] [place] [address] Potassium [Moles/Vol] 3.8 mmol/L Normal 3.5-5.[address] [facility] Comment on above: Performed By: #### L AB17 ####Popcorn Vendor: SLIVA REED ([id number])[facility] ([facility])[address] [place] [address] Protein [Mass/Vol] 5.3 g/dL Low 6.3-8.2 [facility] Comment on above: Performed By: #### L AB17 ####Popcorn Vendor: SILVA REED ([id number])[facility] ([facility])[address] [place] [address] Sodium [Moles/Vol] 136 mmol/L Normal 135-145 [facility] Comment on above: Performed By: #### L AB17 ####Popcorn Vendor: SILVA REED ([phone])[facility] ([facility])[address] [place] [address] Urea nitrogen [Mass/Vol] 28 mg/dL High 9-20 [facility] Comment on above: Performed By: #### L AB17 ####Popcorn Vendor: SILVA REED ([id number])[facility] ([facility])[address] [place] [address] Comprehensive metabolic 1998 panelon 02-16-2024 Albumin [Mass/Vol] 2.8 g/dL Low 3.5 - 5.0 g/dL [facility] ALP [Catalytic activity/Vol] 60 U/L 38 - 126 U/L [facility] ALT [Catalytic activity/Vol] 33 U/L 0 - 49 U/L [facility] Anion gap [Moles/Vol] 4 mmol/L 3 - 13 mmol/L [facility] AST [Catalytic activity/Vol] 27 U/L 15 - 46 U/L [facility] Bilirubin [Mass/Vol] 0.3 mg/dL 0.2 - 1 .3 mg/dL [facility] Calcium [Mass/Vol] 8.7 mg/dL 8.4 - 10. 4 mg/dL [facility] Chloride [Moles/Vol] 105 mmol/L 98 - 10 7 mmol/L [facility] CO2 [Moles/Vol] 27 mmol/L 22 - 30 mmol/L [facility] Creatinine [Mass/Vol] 1.04 mg/dL 0.66 - 1.25 mg/dL [facility] GFR/1.73 sq M.predicted MDRD (S/P/Bld) [Vol rate/Area] 73.5 mL/min/{1.73_m2} - PINF [facility] Comment on above: Calculation based on the Chronic Kidney Disease Epidemiology Collaboration (CKD-EPI) equation refit without adjustment for race Glucose [Mass/Vol] 98 mg/dL 70 - 100 mg/dL [facility] Interpretation and review of laboratory results Abnormal [facility] Potassium [Moles/Vol] 3.8 mmol/L 3.5 - 5.1 mmol/L [facility] Protein [Mass/Vol] 5.3 g/dL Low 6.3 - 8.2 g/dL [facility] Sodium [Moles/Vol] 136 mmol/L 135 - 145 mmol/L [facility] Urea nitrogen [Mass/Vol] 28 mg/dL High 9 - 20 mg/d L [facility] ECG 12-LEADon 02-16-2024 ECG 12-LEAD IMPRESSION: Afib/flut and V-paced complexes Low voltage, extremity leads Ventricular paced rhythm Electronically Signed On 02-16-2024 08:06:46 EDT by Carmela Curtis Normal [facility] IDNon 02-16-2024 IDN Normal [facility] No Panel InformationOrdered By: Carmela Curtis on 02-16-2024 P [place] 0 degrees [facility] Work Phone: AK Interval 0 ms [facility] Work Phone: QRS [place] 26 degrees [facility] Work Phone: QRSD Interval [address] [facility] Work Phone: QT Interval 432 ms [facility] Work Phone: QTC Interval 468 ms [facility] Work Phone: T Wave [place] 23 degrees [facility] Work Phone: [facility] Work Phone: No Panel Informationon 02-15 Afib/flut and V-paced complexes Low voltage, extremity leads Ventricular paced rhythm Electronically Signed On 02-16-2024 08:06:46 EDT by Carmela Hooper MD - 02/16/2024 IMPRESSION: Afib/flut and V-paced complexes Low voltage, extremity leads Ventricular paced rhythm Electronically Signed On 02-16-2024 08:06:46 EDT by Carmela Curtis [facility] Vital signsOrdered By: Soren Curtis on 02-16-2024 Heart rate 70 /min bpm [facility] Work Phone: XR CHEST 1 VIEWon 02-16-2024 XR CHEST 1 VIEW Normal [facility] XR CHEST 1 VIEW Normal [facility] XR Chest Single viewon 02-15 Lines, tubes, and devices: Dual chamber pacemaker with leads again projecting over the right atrium and right ventricle. Lungs and pleura: Small left greater right pleural effusions with associated atelectasis, similar to prior exam. Superimposed infectious/inflammat ory process is not entirely excluded. Central vascular congestion without overt pulmonary edema. No sizable pneumothorax. Emphysematous changes again present. Cardiomediastinal silhouette: Stable enlarged cardiomediastinal silhouette.Status post median sternotomy. Postoperative surgical clips noted. Other: Bony thorax appears grossly unchanged. Report Dictated on Electronically Signed By: Vinicio Eduardo MD Electronically Signed Date/Time: 02/16/2024 2:48 PM EDT [facility] Patient Name: DARIN BREAUX : 1945 Exam Date/Time: 02/16/2024 06:38 Procedure: XR CHEST 1 VIEW Ordering Provider: PATRICIA JENNIFER Reason For Exam: DYSPNEA EXAMINATION: CHEST RADIOGRAPH (SINGLE VIEW AP OR PA) Clinical History: DYSPNEA Comparison: Radiograph 02/15/2024 RESULT: See [facility] RADIOLOGY SYSTEM Vinicio Eduardo MD - 02/16/2024 Patient Name: DARIN BREAUX : 1945 Exam Date/Time: 02/16/2024 06:38 Procedure: XR CHEST 1 VIEW Ordering Provider: PATRICIA JENNIFER Reason For Exam: DYSPNEA EXAMINATION: CHEST RADIOGRAPH (SINGLE VIEW AP OR PA) Clinical History: DYSPNEA Comparison: Radiograph 02/15/2024 RESULT: See impression IMPRESSION: Lines, tubes, and devices: Dual chamber pacemaker with leads again projecting over the right atrium and right ventricle. Lungs and pleura: Small left greater right pleural effusions with associated atelectasis, similar to prior exam. Superimposed infectious/inflammat ory process is not entirely excluded. Central vascular congestion without overt pulmonary edema. No sizable pneumothorax. Emphysematous changes again present. Cardiomediastinal silhouette: Stable enlarged cardiomediastinal silhouette.Status post median sternotomy. Postoperative surgical clips noted. Other: Bony thorax appears grossly unchanged. Report Dictated on Electronically Signed By: Vinicio Eduardo MD Electronically Signed Date/Time: 02/16/2024 2:48 PM EDT [facility] Cardiomegaly and pulmonary venous congestion. Small-moderate volume left and small right pleural effusion. Emphysematous changes bilaterally. Report Dictated on Electronically Signed By: Donis Macedo MD Electronically Signed Date/Time: 02/16/2024 6:59 AM EDT [employer] [facility] Patient Name: DARIN BREAUX : 1945 Exam Date/Time: 02/15/2024 21:26 Procedure: XR CHEST 1 VIEW Ordering Provider: PATRICIA JENNIFER Reason For Exam: DYSPNEA AP CHEST X-RAY CLINICAL INDICATION: DYSPNEA TECHNIQUE: AP portable x-ray of the chest. COMPARISON: 02/09/2024 FINDINGS: Limitations: None. Lines/Tubes: Pacemaker leads are intact and in stable position Heart/Mediastinum: Stable cardiomegaly and vascular redistribution suggesting venous congestion Lungs: New small to moderate volume left pleural effusion and similar small volume right pleural effusion. Bibasilar atelectasis. Emphysematous changes bilaterally. Bones: Unremarkable [facility] RADIOLOGY SYSTEM Donis Macedo MD - 02/16/2024 Patient Name: DARIN BREAUX : 1945 [facility]#: [id number] Exam Date/Time: 02/15/2024 21:26 Procedure: XR CHEST 1 VIEW Ordering Provider: PATRICIA JENNIFER Reason For Exam: DYSPNEA AP CHEST X-RAY CLINICAL INDICATION: DYSPNEA TECHNIQUE: AP portable x-ray of the chest. COMPARISON: 02/09/2024 FINDINGS: Limitations: None. Lines/Tubes: Pacemaker leads are intact and in stable position Heart/Mediastinum: Stable cardiomegaly and vascular redistribution suggesting venous congestion Lungs: New small to moderate volume left pleural effusion and similar small volume right pleural effusion. Bibasilar atelectasis. Emphysematous changes bilaterally. Bones: Unremarkable IMPRESSION: Cardiomegaly and pulmonary venous congestion. Small-moderate volume left and small right pleural effusion. Emphysematous changes bilaterally. Report Dictated on Electronically Signed By: Donis Macedo MD Electronically Signed Date/Time: 02/16/2024 6:59 AM EDT [facility] Radiology Study observation (narrative) [facility] X[facility] Chest Single viewOrdered By: Vinicio Eduardo on 02-16-2024 [facility] Work Phone: XR Chest Single viewOrdered By: Donis Macedo on 02-16-2024 [facility] Work Phone: IDNon 02-15-2024 IDN Normal [facility] Progress Noteon 02-15-2024 Progress Note Normal [facility] Progress Note Normal [facility] XR Chest Single viewon 02-14 Radiology Study observation (narrative) [facility] Progress Noteon 02-12-2024 Progress Note Normal [facility] Progress Note Normal [facility] 36on 02-11-2024 36 Normal [facility] [id number] 02-09-2024 [id number] [facility] notified that patient will discharge to home today. Normal [facility] BASIC METABOLIC PANELon 07-2 Anion gap [Moles/Vol] 5 mmol/L Normal 3-[address] [facility] Comment on above: Performed By: #### L AB113, LAB15, [id number] ####Popcorn Vendor: SILVA REED ([id number])[facility] ([facility])[address] [place] [address] Calcium [Mass/Vol] 8.7 mg/dL Normal 8.4-10.4 [facility] Comment on above: Performed By: #### L AB113, LAB15, [id number] ####Popcorn Vendor: SILVA REED ([id number])[facility] ([facility])[address] [place] [address] Chloride [Moles/Vol] 102 mmol/L Normal 98-107 [facility] Comment on above: Performed By: #### L AB113, LAB15, [id number] ####Popcorn Vendor: SILVA REED ([id number])[facility] ([facility])[address] [place] [address] [place] CO2 [Moles/Vol] 23 mmol/L Normal 22-30 [facility] Comment on above: Performed By: #### L AB113, LAB15, [id number] ####Popcorn Vendor: SILVA REED ([id number])[facility] ([facility])[address] [place] [address] Creatinine [Mass/Vol] 0.99 mg/dL Normal 0.66-1.[address] [facility] Comment on above: Performed By: #### L AB113, LAB15, [id number] ####Popcorn Vendor: SILVA REED ([id number])[facility])[address] [place] [address] [place] GLOMERULAR FILTRATION RATE ML/MIN/1.73 SQ M.PREDICTED 78.0 mL/min/1.73m*2 Normal >60.0 [facility] Comment on above: Result Comment: Calc ulation based on the Chronic Kidney Disease Epidemiology Collaboration (CKD-EPI) equation refit without adjustment for race Performed By: #### L AB113, LAB15, [id number] ####Popcorn Vendor: SILVA REED ([id number])[facility] ([facility])[address] [place] [address] Glucose [Mass/Vol] 89 mg/dL Normal 70-100 [facility] Comment on above: Performed By: #### L AB113, LAB15, [id number] ####Popcorn Vendor: SILVA REED ([id number])[facility] ([facility])[address] [place] [address] Potassium [Moles/Vol] 4.3 mmol/L Normal 3.5-5.[address] [facility] Comment on above: Performed By: #### L AB113, LAB15, [id number] ####Popcorn Vendor: SILVA REED ([id number])[facility] ([facility])[address] [place] [address] Sodium [Moles/Vol] 130 mmol/L Low 135-145 [facility] Comment on above: Performed By: #### L AB113, LAB15, [id number] ####Popcorn Vendor: SILVA REED ([id number])[facility] ([facility])[address] [place] [address] Urea nitrogen [Mass/Vol] 28 mg/dL High 9-20 [facility] Comment on above: Performed By: #### L AB113, LAB15, [id number] ####Popcorn Vendor: SILVA REED ([id number])[facility] ([facility])[address] [place] [address] Basic metabolic 1998 panelon 02-09-2024 Anion gap [Moles/Vol] 5 mmol/L 3 - 13 mmol/L [facility] Calcium [Mass/Vol] 8.7 mg/dL 8.4 - 10. 4 mg/dL [facility] Chloride [Moles/Vol] 102 mmol/L 98 - 10 7 mmol/L [facility] CO2 [Moles/Vol] 23 mmol/L 22 - 30 mmol/L [facility] Creatinine [Mass/Vol] 0.99 mg/dL 0.66 - 1.25 mg/dL [facility] GFR/1.73 sq M.predicted MDRD (S/P/Bld) [Vol rate/Area] 78.0 mL/min/{1.73_m2} - PINF [facility] Glucose [Mass/Vol] 89 mg/dL 70 - 100 mg/dL [facility] Interpretation and review of laboratory results Abnormal [facility] Potassium [Moles/Vol] 4.3 mmol/L 3.5 - 5.1 mmol/L [facility] Sodium [Moles/Vol] 130 mmol/L Low 135 - 145 mmol/L [facility] Urea nitrogen [Mass/Vol] 28 mg/dL High 9 - 20 mg/d L [facility] CARECOORDon 02-09-2024 CARECOCONOWINGO Normal [facility] CARECOCONOWINGO Normal [facility] CBC (HEMOGRAM)on 02-09-2024 Erythrocyte distribution width (RBC) [Ratio] 16.2 % High 11.5-15.0 [facility] Comment on above: Performed By: #### L [id number] ####Popcorn Vendor: SILVA REED ([id number])[address] Hematocrit (Bld) [Volume fraction] 28.5 % Low 40.0-52.0 [facility] Comment on above: Performed By: #### L [id number] ####Popcorn Vendor: SILVA REED ([id number])[facility])[address] [place] [address] Hemoglobin (Bld) [Mass/Vol] 8.9 g/dL Low 13.0-18.0 [facility] Comment on above: Performed By: #### L AB294 ####Popcorn Vendor: SILVA REED ([id number])[facility])[address] [place] [address] MCH (RBC) [Entitic mass] 29.1 pg Normal 26.0-34.0 [facility] Comment on above: Performed By: #### L AB294 ####Popcorn Vendor: SILVA REED ([id number])[facility])[address] [place] [address] MCHC 31.2 % Normal 30.5-36.0 [facility] Comment on above: Performed By: #### L AB294 ####Popcorn Vendor: SILVA REED ([id number])[facility] ([facility])[address] [place] [address] MCV (RBC) [Entitic vol] 93.1 fL Normal 77.0-99.0 [facility] Comment on above: Performed By: #### L AB294 ####Popcorn Vendor: SILVA REED ([id number])[facility] ([facility])[address] [place] [address] Platelet mean volume (Bld) [Entitic vol] 10.5 fL Normal 9.0-12.7 [facility] Comment on above: Performed By: #### L AB294 ####Popcorn Vendor: SILVA REED ([id number])[facility] ([facility])[address] [place] [address] Platelets (Bld) [#/Vol] 174 10*3/uL Normal 140-440 [facility] Comment on above: Performed By: #### L [id number] ####Popcorn Vendor: SILVA REED ([id number])[facility])[address] [place] [address] RBC (Bld) [#/Vol] 3.06 10*6/uL Low 4.40-5.90 [facility] Comment on above: Performed By: #### L AB294 ####Popcorn Vendor: SILVA REED ([id number])[facility] ([facility])[address] [place] [address] WBC (Bld) [#/Vol] 5.6 10*3/uL Normal 3.6-10.7 [facility] Comment on above: Performed By: #### L AB294 ####Popcorn Vendor: SILVA REED ([id number])[facility])[address] [place] [address] Erythrocyte distribution width (RBC) [Ratio] 16.2 % High 11.5-15.0 [facility] Comment on above: Performed By: #### L AB294 ####Popcorn Vendor: SILVA REED ([id number])[facility])[address] [place] [address] Hematocrit (Bld) [Volume fraction] 22.8 % Low 40.0-52.0 [facility] Comment on above: Performed By: #### L AB294 ####Popcorn Vendor: SILVA REED ([id number])[facility])[address] [place] [address] Hemoglobin (Bld) [Mass/Vol] 7.2 g/dL Low 13.0-18.0 [facility] Comment on above: Performed By: #### L AB294 ####Popcorn Vendor: SILVA REED ([id number])[facility])[address] [place] [address] MCH (RBC) [Entitic mass] 29.1 pg Normal 26.0-34.0 [facility] Comment on above: Performed By: #### L [id number] ####Popcorn Vendor: SILVA REED ([id number])[facility] ([facility])[address] [place] [address] MCHC 31.6 % Normal 30.5-36.0 [facility] Comment on above: Performed By: #### L [id number] ####Popcorn Vendor: SILVA REED ([id number])[facility])[address] [place] [address] MCV (RBC) [Entitic vol] 92.3 fL Normal 77.0-99.0 [facility] Comment on above: Performed By: #### L [id number] ####Popcorn Vendor: SILVA REED ([id number])[facility])[address] [place] [address] Platelet mean volume (Bld) [Entitic vol] 11.1 fL Normal 9.0-12.7 [facility] Comment on above: Performed By: #### L [id number] ####Popcorn Vendor: SILVA REED ([id number])[facility])[address] [place] [address] Platelets (Bld) [#/Vol] 142 10*3/uL Normal 140-440 [facility] Comment on above: Performed By: #### L [id number] ####Popcorn Vendor: SILVA REED ([id number])[address] RBC (Bld) [#/Vol] 2.47 10*6/uL Low 4.40-5.90 [facility] Comment on above: Performed By: #### L [id number] ####Popcorn Vendor: SILVA REED ([id number])[address] WBC (Bld) [#/Vol] 4.7 10*3/uL Normal 3.6-10.7 [facility] Comment on above: Performed By: #### L [id number] ####Popcorn Vendor: SILVA REED ([id number])[facility])[address] [place] [address] CBC panel Auto (Bld)on 02-08 Erythrocyte distribution width (RBC) [Ratio] 16.2 % High 11.5 - 15.0 % [facility] Hematocrit (Bld) [Volume fraction] 28.5 % Low 40.0 - 52.0 % [facility] Hemoglobin (Bld) [Mass/Vol] 8.9 g/dL Low 13.0 - 18.0 g/dL [facility] Interpretation and review of laboratory results Abnormal [facility] MCH (RBC) [Entitic mass] 29.1 pg 26. 0 - 34.0 pg [facility] MCHC (RBC) [Mass/Vol] 31.2 % 30.5 - 36.0 % [facility] MCV (RBC) [Entitic vol] 93.1 fL 77.0 - 99.0 fL [facility] Platelet mean volume (Bld) [Entitic vol] 10.5 fL 9.0 - 12.7 fL [facility] Platelets (Bld) [#/Vol] 174 10*3/uL 140 - 440 10*3/uL [facility] RBC (Bld) [#/Vol] 3.06 10*6/uL Low 4.40 - 5.9 0 10*6/uL [facility] WBC (Bld) [#/Vol] 5.6 10*3/uL 3.6 - 10.7 10*3/uL [facility] Erythrocyte distribution width (RBC) [Ratio] 16.2 % High 11.5 - 15.0 % [facility] Hematocrit (Bld) [Volume fraction] 22.8 % Low 40.0 - 52.0 % [facility] Hemoglobin (Bld) [Mass/Vol] 7.2 g/dL Low 13.0 - 18.0 g/dL [facility] Interpretation and review of laboratory results Abnormal [facility] MCH (RBC) [Entitic mass] 29.1 pg 26. 0 - 34.0 pg [facility] MCHC (RBC) [Mass/Vol] 31.6 % 30.5 - 36.0 % [facility] MCV (RBC) [Entitic vol] 92.3 fL 77.0 - 99.0 fL [facility] Platelet mean volume (Bld) [Entitic vol] 11.1 fL 9.0 - 12.7 fL [facility] Platelets (Bld) [#/Vol] 142 10*3/uL 140 - 440 10*3/uL [facility] RBC (Bld) [#/Vol] 2.47 10*6/uL Low 4.40 - 5.9 0 10*6/uL [facility] WBC (Bld) [#/Vol] 4.7 10*3/uL 3.6 - 10.7 10*3/uL [facility] FREE T4on 02-09-2024 Free T4 [Mass/Vol] 1.17 ng/dL Normal 0.78-2.19 [facility] Comment on above: Performed By: #### L [id number], [id number] ####Popcorn Vendor: SILVA REED ([id number])[address] Free T4 [Mass/Vol]on 024 Free T4 Dialysis [Mass/Vol] 1.17 ng/dL 0.78 - 2.19 ng/dL [facility] Interpretation and review of laboratory results Normal [facility] IDNon 02-09-2024 IDN Normal [facility] Laboratory - Chemistry and C hemistry - challengeon 02-09-2024 TSH Qn 10.053 m[IU]/L High [facility] th Osmolality [Osmolality] 292 mosm/kg [facility] Sodium (24H U) [Mass/Vol] 141 mmol/L High 30 - 90 mmol/L [facility] Magnesium [Mass/Vol] 2.1 mg/dL 1.6 - 2 .3 mg/dL [facility] MAGNESIUMon 02-09-2024 Magnesium [Mass/Vol] 2.1 mg/dL Normal 1.6-2.3 [facility] Comment on above: Performed By: #### L AB113, LAB15, [id number] ####Popcorn Vendor: SILVA REED ([id number])[facility])[address] [place] [address] No Panel InformationOrdered By: Isamar Espinoza on 02-09-2024 Interpretation and review of laboratory results Normal [facility] OSMOLALITY, URINE 718 [facility] ealth [facility] No Panel Informationon 02-08 Interpretation and review of laboratory results Normal [facility] Interpretation and review of laboratory results Abnormal [facility] Interpretation and review of laboratory results Normal [facility] OSMOLALITY, SERUMon 02-09-20 24 OSMOLALITY, SERUM 292 mOsm/kg Normal 280-300 [facility] Comment on above: Performed By: #### L [id number] ####Popcorn Vendor: SILVA REED ([id number])[facility])[address] [place] [address] OSMOLALITY, URINEon 02-09-20 24 OSMOLALITY, URINE 718 mOsm/kg Normal 300-1000 [facility] Comment on above: Performed By: #### L AB444, [id number] ####Popcorn Vendor: SILVA REED ([phone])[facility])[address] [place] [address] [place] PHOSPHORUSon 02-09-2024 Phosphate [Mass/Vol] 3.2 mg/dL Normal 2.5-4.5 [facility] Comment on above: Performed By: #### L AB113, LAB15, [id number] ####Popcorn Vendor: SILVA REED ([id number])[facility] ([facility])[address] [place] [address] [place] Phosphate [Moles/Vol]on 01-18 Phosphate [Mass/Vol] 3.2 mg/dL 2.5 - 4 .5 mg/dL [facility] Progress Noteon 02-09-2024 Progress Note Normal [facility] Progress Note For coding query: Severe malnutrition, seen by dietitian. Normal [facility] Progress Note Normal [facility] Progress Note Normal [facility] SODIUM, URINE, RANDOMon 01-18 Sodium (U) [Moles/Vol] 141 mmol/L High 30-90 [facility] Comment on above: Performed By: #### L AB444, [id number] ####Popcorn Vendor: SILVA REED ([id number])[facility] ([facility])[address] [place] [address] THYROID STIMULATING HORMONEo n 02-09-2024 THYROID STIMULATING HORMONE 10.053 uIU/mL High 0.465-4.680 [facility] Comment on above: Performed By: #### L AB129, [id number] ####Popcorn Vendor: SILVA REED ([id number])[facility] ([facility])[address] [place] [address] [place] TSH Qnon 02-09-2024 Interpretation and review of laboratory results Abnormal [facility] XR CHEST 1 VIEWon 02-09-2024 XR CHEST 1 VIEW Normal [facility] XR Chest Single viewon 02-08 [facility] RADIOLOGY SYSTEM [facility] Radiology Study observation (narrative) [facility] XR Chest Single viewOrdered By: Donis Macedo on 02-09-2024 [facility] Work Phone: BASIC METABOLIC PANELon 01-18 Anion gap [Moles/Vol] 7 mmol/L Normal 3-[address] [facility] Comment on above: Performed By: #### L AB15 ####Popcorn Vendor: SILVA REED ([id number])[facility] ([facility])[address] [place] [address] Calcium [Mass/Vol] 8.7 mg/dL Normal 8.4-10.4 [facility] Comment on above: Performed By: #### L AB15 ####Popcorn Vendor: SILVA REED ([id number])[facility] [place] [address] Chloride [Moles/Vol] 102 mmol/L Normal 98-107 [facility] Comment on above: Performed By: #### L AB15 ####Popcorn Vendor: SILVA REED ([id number])[facility] [place] [address] CO2 [Moles/Vol] 24 mmol/L Normal 22-30 [facility] Comment on above: Performed By: #### L AB15 ####Popcorn Vendor: SILVA REED ([id number])[facility] [place] [address] Creatinine [Mass/Vol] 1.16 mg/dL Normal 0.66-1.[address] [facility] Comment on above: Performed By: #### L AB15 ####Popcorn Vendor: SILVA REED ([id number])[facility] ([facility])[address] [place] [address] [place] GLOMERULAR FILTRATION RATE ML/MIN/1.73 SQ M.PREDICTED 64.5 mL/min/1.73m*2 Normal >60.0 [facility] Comment on above: Result Comment: Calc ulation based on the Chronic Kidney Disease Epidemiology Collaboration (CKD-EPI) equation refit without adjustment for race Performed By: #### L AB15 ####Popcorn Vendor: SILVA REED ([id number])[facility] ([facility])[address] [place] [address] [place] Glucose [Mass/Vol] 84 mg/dL Normal 70-100 [facility] Comment on above: Performed By: #### L AB15 ####Popcorn Vendor: SILVA [id number])[facility] ([facility] Potassium [Moles/Vol] 4.2 mmol/L Normal 3.5-5.[address] [facility] Comment on above: Performed By: #### L AB15 ####Popcorn Vendor: SILVA REED ([id number])[facility] ([facility])[address] [place] [address] Sodium [Moles/Vol] 133 mmol/L Low 135-145 [facility] Comment on above: Performed By: #### L AB15 ####Popcorn Vendor: SILVA REED ([id number])[facility] [place] [address] Urea nitrogen [Mass/Vol] 32 mg/dL High 9-20 [facility] Comment on above: Performed By: #### L AB15 ####Popcorn Vendor: SILVA REED ([id number])[facility] [place] [address] Basic metabolic 1998 panelon 02-08-2024 Anion gap [Moles/Vol] 7 mmol/L 3 - 13 mmol/L [facility] Calcium [Mass/Vol] 8.7 mg/dL 8.4 - 10. 4 mg/dL [facility] Chloride [Moles/Vol] 102 mmol/L 98 - 10 7 mmol/L [facility] CO2 [Moles/Vol] 24 mmol/L 22 - 30 mmol/L [facility] Creatinine [Mass/Vol] 1.16 mg/dL 0.66 - 1.25 mg/dL [facility] GFR/1.73 sq M.predicted MDRD (S/P/Bld) [Vol rate/Area] 64.5 mL/min/{1.73_m2} - PINF [facility] Glucose [Mass/Vol] 84 mg/dL 70 - 100 mg/dL [facility] Interpretation and review of laboratory results Abnormal [facility] Potassium [Moles/Vol] 4.2 mmol/L 3.5 - 5.1 mmol/L [facility] Sodium [Moles/Vol] 133 mmol/L Low 135 - 145 mmol/L [facility] Urea nitrogen [Mass/Vol] 32 mg/dL High 9 - 20 mg/d L [facility] CARECOORDon 07-22-2024 CARECOORD Normal [facility] CBC (HEMOGRAM)on 02-08-2024 Erythrocyte distribution width (RBC) [Ratio] 16.5 % High 11.5-15.0 [facility] Comment on above: Performed By: #### L [id number] ####Popcorn Vendor: SILVA REED ([phone])[facility])[address] [place] [address] Hematocrit (Bld) [Volume fraction] 27.0 % Low 40.0-52.0 [facility] Comment on above: Performed By: #### L AB294 ####Popcorn Vendor: SILVA REED ([id number])[facility])[address] [place] [address] Hemoglobin (Bld) [Mass/Vol] 8.5 g/dL Low 13.0-18.0 [facility] Comment on above: Performed By: #### L AB294 ####Popcorn Vendor: SILVA REED ([id number])[facility])[address] [place] [address] MCH (RBC) [Entitic mass] 29.2 pg Normal 26.0-34.0 [facility] Comment on above: Performed By: #### L AB294 ####Popcorn Vendor: SILVA REED ([id number])[facility])[address] [place] [address] MCHC 31.5 % Normal 30.5-36.0 [facility] Comment on above: Performed By: #### L AB294 ####Popcorn Vendor: SILVA REED ([id number])[facility])[address] [place] [address] MCV (RBC) [Entitic vol] 92.8 fL Normal 77.0-99.0 [facility] Comment on above: Performed By: #### L AB294 ####Popcorn Vendor: SILVA REED ([id number])[facility])[address] [place] [address] Platelet mean volume (Bld) [Entitic vol] 11.2 fL Normal 9.0-12.7 [facility] Comment on above: Performed By: #### L AB294 ####Popcorn Vendor: SILVA REED ([id number])[facility])[address] [place] [address] Platelets (Bld) [#/Vol] 147 10*3/uL Normal 140-440 [facility] Comment on above: Performed By: #### L AB294 ####Popcorn Vendor: SILVA REED ([id number])[facility])[address] [place] [address] RBC (Bld) [#/Vol] 2.91 10*6/uL Low 4.40-5.90 [facility] Comment on above: Performed By: #### L AB294 ####Popcorn Vendor: SILVA REED ([id number])[facility] ([facility])[address] [place] [address] WBC (Bld) [#/Vol] 6.2 10*3/uL Normal 3.6-10.7 [facility] Comment on above: Performed By: #### L AB294 ####Popcorn Vendor: SILVA REED ([id number])[facility])[address] [place] [address] CBC panel Auto (Bld)on 02-07 Erythrocyte distribution width (RBC) [Ratio] 16.5 % High 11.5 - 15.0 % [facility] Hematocrit (Bld) [Volume fraction] 27.0 % Low 40.0 - 52.0 % [facility] Hemoglobin (Bld) [Mass/Vol] 8.5 g/dL Low 13.0 - 18.0 g/dL [facility] Interpretation and review of laboratory results Abnormal [facility] MCH (RBC) [Entitic mass] 29.2 pg 26. 0 - 34.0 pg [facility] MCHC (RBC) [Mass/Vol] 31.5 % 30.5 - 36.0 % [facility] MCV (RBC) [Entitic vol] 92.8 fL 77.0 - 99.0 fL [facility] Platelet mean volume (Bld) [Entitic vol] 11.2 fL 9.0 - 12.7 fL [facility] Platelets (Bld) [#/Vol] 147 10*3/uL 140 - 440 10*3/uL [facility] RBC (Bld) [#/Vol] 2.91 10*6/uL Low 4.40 - 5.9 0 10*6/uL [facility] WBC (Bld) [#/Vol] 6.2 10*3/uL 3.6 - 10.7 10*3/uL [facility] Progress Noteon 02-08-2024 Progress Note Normal [facility] Normal [facility] Progress Note Normal [facility] Progress Note [facility] XR CHEST 1 VIEWon 02-08-2024 XR CHEST 1 VIEW Normal [facility] XR Chest Single viewon 02-07 [facility] RADIOLOGY [facility] Radiology Study observation (narrative) [facility] Radiology Study observation (narrative) [facility] XR Chest Single viewOrdered By: Jeannine Sarmiento on 02-08-2024 [facility] Work Phone: XR Chest Single viewOrdered By: Vinicio Eduardo on 02-08-2024 [facility] Work Phone: BASIC METABOLIC PANELon 01-18 Anion gap [Moles/Vol] 6 mmol/L Normal 3-[address] [facility] Comment on above: Performed By: #### L AB15 ####Popcorn Vendor: SILVA REED ([id number])[facility] ([facility])[address] [place] [address] Calcium [Mass/Vol] 8.6 mg/dL Normal 8.4-10.4 [facility] Comment on above: Performed By: #### L AB15 ####Popcorn Vendor: SILVA REED ([id number])[facility] ([facility])[address] [place] [address] Chloride [Moles/Vol] 103 mmol/L Normal 98-107 [facility] Comment on above: Performed By: #### L AB15 ####Popcorn Vendor: SILVA REED ([id number])[facility])[address] [place] [address] CO2 [Moles/Vol] 24 mmol/L Normal 22-30 [facility] Comment on above: Performed By: #### L AB15 ####Popcorn Vendor: SILVA REED ([id number])[facility])[address] [place] [address] Creatinine [Mass/Vol] 1.27 mg/dL High 0.66-1.[address] [facility] Comment on above: Performed By: #### L AB15 ####Popcorn Vendor: SILVA REED ([id number])[facility])[address] [place] [address] GLOMERULAR FILTRATION RATE ML/MIN/1.73 SQ M.PREDICTED 57.8 mL/min/1.73m*2 Low >60.0 [facility] Comment on above: Result Comment: Calc ulation based on the Chronic Kidney Disease Epidemiology Collaboration (CKD-EPI) equation refit without adjustment for race Performed By: #### L AB15 ####Popcorn Vendor: SILVA REED ([id number])[facility])[address] [place] [address] Glucose [Mass/Vol] 90 mg/dL Normal 70-100 [facility] Comment on above: Performed By: #### L AB15 ####Popcorn Vendor: SILVA REED ([id number])[facility])[address] [place] [address] Potassium [Moles/Vol] 4.4 mmol/L Normal 3.5-5.[address] [facility] Comment on above: Performed By: #### L AB15 ####Popcorn Vendor: SILVA REED ([id number])[facility])[address] [place] [address] Sodium [Moles/Vol] 133 mmol/L Low 135-145 [facility] Comment on above: Performed By: #### L AB15 ####Popcorn Vendor: SILVA REED ([id number])[facility] ([facility])[address] [place] [address] Urea nitrogen [Mass/Vol] 34 mg/dL High 9-20 [facility] Comment on above: Performed By: #### L AB15 ####Popcorn Vendor: SILVA REED ([id number])[facility] ([facility])[address] [place] [address] Basic metabolic 1998 panelon 02-07-2024 Anion gap [Moles/Vol] 6 mmol/L 3 - 13 mmol/L [facility] Calcium [Mass/Vol] 8.6 mg/dL 8.4 - 10. 4 mg/dL [facility] Chloride [Moles/Vol] 103 mmol/L 98 - 10 7 mmol/L [facility] CO2 [Moles/Vol] 24 mmol/L 22 - 30 mmol/L [facility] Creatinine [Mass/Vol] 1.27 mg/dL High 0.66 - 1.25 mg/dL [facility] GFR/1.73 sq M.predicted MDRD (S/P/Bld) [Vol rate/Area] 57.8 mL/min/{1.73_m2} Low - PINF [facility] Glucose [Mass/Vol] 90 mg/dL 70 - 100 mg/dL [facility] Interpretation and review of laboratory results Abnormal [facility] Potassium [Moles/Vol] 4.4 mmol/L 3.5 - 5.1 mmol/L [facility] Sodium [Moles/Vol] 133 mmol/L Low 135 - 145 mmol/L [facility] Urea nitrogen [Mass/Vol] 34 mg/dL High 9 - 20 mg/d L [facility] CBC (HEMOGRAM)on 02-07-2024 Erythrocyte distribution width (RBC) [Ratio] 16.4 % High 11.5-15.0 [facility] Comment on above: Performed By: #### L [id number] ####Popcorn Vendor: SILVA REED ([id number])[facility] ([facility])[address] [place] [address] Hematocrit (Bld) [Volume fraction] 27.2 % Low 40.0-52.0 [facility] Comment on above: Performed By: #### L [id number] ####Popcorn Vendor: SILVA REED ([id number])[facility])[address] [place] [address] Hemoglobin (Bld) [Mass/Vol] 8.6 g/dL Low 13.0-18.0 [facility] Comment on above: Performed By: #### L AB294 ####Popcorn Vendor: SILVA REED ([id number])[facility] ([facility])[address] [place] [address] MCH (RBC) [Entitic mass] 29.4 pg Normal 26.0-34.0 [facility] Comment on above: Performed By: #### L AB294 ####Popcorn Vendor: SILVA REED ([id number])[facility])[address] [place] [address] MCHC 31.6 % Normal 30.5-36.0 [facility] Comment on above: Performed By: #### L AB294 ####Popcorn Vendor: SILVA REED ([id number])[facility] ([facility])[address] [place] [address] MCV (RBC) [Entitic vol] 92.8 fL Normal 77.0-99.0 [facility] Comment on above: Performed By: #### L AB294 ####Popcorn Vendor: SILVA REED ([id number])[facility])[address] [place] [address] Platelet mean volume (Bld) [Entitic vol] 11.1 fL Normal 9.0-12.7 [facility] Comment on above: Performed By: #### L AB294 ####Popcorn Vendor: SILVA REED ([id number])[facility])[address] [place] [address] Platelets (Bld) [#/Vol] 147 10*3/uL Normal 140-440 [facility] Comment on above: Performed By: #### L AB294 ####Popcorn Vendor: SILVA REED ([id number])[facility] ([facility])[address] [place] [address] RBC (Bld) [#/Vol] 2.93 10*6/uL Low 4.40-5.90 [facility] Comment on above: Performed By: #### L AB294 ####Popcorn Vendor: SILVA REED ([id number])[facility] ([facility])[address] [place] [address] WBC (Bld) [#/Vol] 6.5 10*3/uL Normal 3.6-10.7 [facility] Comment on above: Performed By: #### L [id number] ####Popcorn Vendor: SILVA REED ([id number])[facility] ([facility])[address] [place] [address] CBC panel Auto (Bld)Ordered By: Rodriguez Ruby on 02-07-2024 Erythrocyte distribution width (RBC) [Ratio] 16.4 % High 11.5 - 15.0 % [facility] Hematocrit (Bld) [Volume fraction] 27.2 % Low 40.0 - 52.0 % [facility] Hemoglobin (Bld) [Mass/Vol] 8.6 g/dL Low 13.0 - 18.0 g/dL [facility] Interpretation and review of laboratory results Abnormal [facility] MCH (RBC) [Entitic mass] 29.4 pg 26. 0 - 34.0 pg [facility] MCHC (RBC) [Mass/Vol] 31.6 % 30.5 - 36.0 % [facility] MCV (RBC) [Entitic vol] 92.8 fL 77.0 - 99.0 fL [facility] Platelet mean volume (Bld) [Entitic vol] 11.1 fL 9.0 - 12.7 fL [facility] Platelets (Bld) [#/Vol] 147 10*3/uL 140 - 440 10*3/uL [facility] RBC (Bld) [#/Vol] 2.93 10*6/uL Low 4.40 - 5.9 0 10*6/uL [facility] WBC (Bld) [#/Vol] 6.5 10*3/uL 3.6 - 10.7 10*3/uL [facility] Nursing Noteon 02-07-2024 Nursing Note Normal [facility] Progress Noteon 02-07-[address] [facility] Progress Note Normal [facility] Progress Note Normal [facility] XR CHEST 1 VIEWon 02-07-2024 XR CHEST 1 VIEW Normal [facility] XR Chest Single viewon 02-06 [facility] RADIOLOGY [facility] RADIOLOG[facility] Radiology Study observation (narrative) [facility] BASIC METABOLIC PANELon 01-18 Anion gap [Moles/Vol] 8 mmol/L Normal 3-[address] [facility] Comment on above: Performed By: #### L AB15 ####Popcorn Vendor: SILVA REED ([id number])[facility] ([facility])[address] [place] [address] Calcium [Mass/Vol] 9.0 mg/dL Normal 8.4-10.4 [facility] Comment on above: Performed By: #### L AB15 ####Popcorn Vendor: SILVA REED ([phone])[facility] ([facility])[address] [place] [address] [place] Chloride [Moles/Vol] 101 mmol/L Normal 98-107 [facility] Comment on above: Performed By: #### L AB15 ####Popcorn Vendor: SILVA REED ([id number])[facility] ([facility])[address] [place] [address] [place] CO2 [Moles/Vol] 23 mmol/L Normal 22-30 [facility] Comment on above: Performed By: #### L AB15 ####Popcorn Vendor: SILVA REED ([id number])[facility] ([facility])[address] [place] [address] [place] Creatinine [Mass/Vol] 1.17 mg/dL Normal 0.66-1.[address] [facility] Comment on above: Performed By: #### L AB15 ####Popcorn Vendor: SILVA REED ([id number])[facility] ([facility])[address] GLOMERULAR FILTRATION RATE ML/MIN/1.73 SQ M.PREDICTED 63.8 mL/min/1.73m*2 Normal >60.0 [facility] Comment on above: Result Comment: Calc ulation based on the Chronic Kidney Disease Epidemiology Collaboration (CKD-EPI) equation refit without adjustment for race Performed By: #### L AB15 ####Popcorn Vendor: SILVA REED ([id number])[facility] ([facility])[address] [place] [address] Glucose [Mass/Vol] 87 mg/dL Normal 70-100 [facility] Comment on above: Performed By: #### L AB15 ####Popcorn Vendor: SILVA REED ([id number])[facility])[address] [place] [address] Potassium [Moles/Vol] 4.0 mmol/L Normal 3.5-5.[address] [facility] [facility] Comment on above: Performed By: #### L AB15 ####Popcorn Vendor: ISLVA REED ([id number])[facility] ([facility])[address] [place] [address] Sodium [Moles/Vol] 131 mmol/L Low 135-145 [facility] Comment on above: Performed By: #### L AB15 ####Popcorn Vendor: SILVA REED ([phone])[facility])[address] [place] [address] Urea nitrogen [Mass/Vol] 30 mg/dL High 9-20 [facility] Comment on above: Performed By: #### L AB15 ####Popcorn Vendor: SILVA REED ([id number])[facility])[address] [place] [address] Basic metabolic 1998 panelon 02-06-2024 Anion gap [Moles/Vol] 8 mmol/L 3 - 13 mmol/L [facility] Calcium [Mass/Vol] 9.0 mg/dL 8.4 - 10. 4 mg/dL [facility] Chloride [Moles/Vol] 101 mmol/L 98 - 10 7 mmol/L [facility] CO2 [Moles/Vol] 23 mmol/L 22 - 30 mmol/L [facility] Creatinine [Mass/Vol] 1.17 mg/dL 0.66 - 1.25 mg/dL [facility] GFR/1.73 sq M.predicted MDRD (S/P/Bld) [Vol rate/Area] 63.8 mL/min/{1.73_m2} - PINF [facility] Glucose [Mass/Vol] 87 mg/dL 70 - 100 mg/dL [facility] Interpretation and review of laboratory results Abnormal [facility] Potassium [Moles/Vol] 4.0 mmol/L 3.5 - 5.1 mmol/L [facility] Sodium [Moles/Vol] 131 mmol/L Low 135 - 145 mmol/L [facility] Urea nitrogen [Mass/Vol] 30 mg/dL High 9 - 20 mg/d L [facility] CBC (HEMOGRAM)on 02-06-2024 Erythrocyte distribution width (RBC) [Ratio] 16.3 % High 11.5-15.0 [facility] Comment on above: Performed By: #### L [id number] ####Popcorn Vendor: SILVA REED ([phone])[address] Hematocrit (Bld) [Volume fraction] 27.5 % Low 40.0-52.0 [facility] Comment on above: Performed By: #### L [id number] ####Popcorn Vendor: SILVA [id number])[address] Hemoglobin (Bld) [Mass/Vol] 8.9 g/dL Low 13.0-18.0 [facility] Comment on above: Performed By: #### L [id number] ####Popcorn Vendor: SILVA REED ([id number])[address] MCH (RBC) [Entitic mass] 29.0 pg Normal 26.0-34.0 [facility] Comment on above: Performed By: #### L [id number] ####Popcorn Vendor: SILVA [id number])[facility])[address] [place] [address] MCHC 32.4 % Normal 30.5-36.0 [facility] Comment on above: Performed By: #### L [id number] ####Popcorn Vendor: SILVA REED ([phone])[facility] ([facility])[address] [place] [address] MCV (RBC) [Entitic vol] 89.6 fL Normal 77.0-99.0 [facility] Comment on above: Performed By: #### L [id number] ####Popcorn Vendor: SILVA REED ([phone])[facility])[address] [place] [address] Platelet mean volume (Bld) [Entitic vol] 11.7 fL Normal 9.0-12.7 [facility] Comment on above: Performed By: #### L [id number] ####Popcorn Vendor: SILVA REED ([phone])[facility] ([facility])[address] [place] [address] Platelets (Bld) [#/Vol] 111 10*3/uL Low 140-440 [facility] Comment on above: Performed By: #### L [id number] ####Popcorn Vendor: SILVA REED ([phone])[facility] ([facility])[address] [place] [address] RBC (Bld) [#/Vol] 3.07 10*6/uL Low 4.40-5.90 [facility] Comment on above: Performed By: #### L [id number] ####Popcorn Vendor: SILVA REED ([id number])[facility] ([facility])[address] [place] [address] WBC (Bld) [#/Vol] 7.6 10*3/uL Normal 3.6-10.7 [facility] Comment on above: Performed By: #### L [id number] ####Popcorn Vendor: SILVA REED ([phone])[facility] ([facility])[address] [place] [address] CBC panel Auto (Bld)on 02-05 Erythrocyte distribution width (RBC) [Ratio] 16.3 % High 11.5 - 15.0 % [facility] Hematocrit (Bld) [Volume fraction] 27.5 % Low 40.0 - 52.0 % [facility] Hemoglobin (Bld) [Mass/Vol] 8.9 g/dL Low 13.0 - 18.0 g/dL [facility] Interpretation and review of laboratory results Abnormal [facility] MCH (RBC) [Entitic mass] 29.0 pg 26. 0 - 34.0 pg [facility] MCHC (RBC) [Mass/Vol] 32.4 % 30.5 - 36.0 % [facility] MCV (RBC) [Entitic vol] 89.6 fL 77.0 - 99.0 fL [facility] Platelet mean volume (Bld) [Entitic vol] 11.7 fL 9.0 - 12.7 fL [facility] Platelets (Bld) [#/Vol] 111 10*3/uL Low 140 - 440 10*3/uL [facility] RBC (Bld) [#/Vol] 3.07 10*6/uL Low 4.40 - 5.9 0 10*6/uL [facility] WBC (Bld) [#/Vol] 7.6 10*3/uL 3.6 - 10.7 10*3/uL [facility] No Panel Informationon 02-05 Blood Expiration Date S [facility] Blood Expiration Date [id number] S [facility] Blood Expiration Date [id number] S [facility] Crossmatch interpretation COMP [facility] Dispense Status Released from Crossmatch [facility] Dis[facility]ense Status Transfused [facility] Product Blood Type 6200 [facility] PRODUCT CODE [id number] [facility] Unit ABO A [facility] Unit Number [id number] [facility] Number [id number] [facility] Number [id number] [facility] Number [id number] [facility] Number [id number] [facility] RH Positive [facility] Volume 300 mL [facility] Progress Noteon 02-06-2024 Progress Note Normal [facility] Progress Note Normal [facility] XR CHEST 1 VIEWon 02-06-2024 XR CHEST 1 VIEW Normal [facility] XR Chest Single viewon 02-05 [facility] RADIOLOGY [facility] Radiology Study observation (narrative) [facility] [id number] 02-05-2024 [id number] Normal [facility] BASIC METABOLIC PANELon 01-17 Anion gap [Moles/Vol] 7 mmol/L Normal 3-[address] [facility] Comment on above: Performed By: #### L [id number] ####Popcorn Vendor: SILVA REED ([id number])[facility])[address] [place] [address] Calcium [Mass/Vol] 9.2 mg/dL Normal 8.4-10.4 [facility] Comment on above: Performed By: #### L AB15 ####Popcorn Vendor: SILVA REED ([id number])[facility] ([facility])[address] [place] [address] Chloride [Moles/Vol] 103 mmol/L Normal 98-107 [facility] Comment on above: Performed By: #### L AB15 ####Popcorn Vendor: SILVA REED ([id number])[facility] ([facility])[address] [place] [address] CO2 [Moles/Vol] 21 mmol/L Low 22-30 [facility] Comment on above: Performed By: #### L AB15 ####Popcorn Vendor: SILVA REED ([id number])[facility] ([facility])[address] [place] [address] [place] Creatinine [Mass/Vol] 1.31 mg/dL High 0.66-1.25 [facility] Comment on above: Performed By: #### L AB15 ####Popcorn Vendor: SILVA REED ([id number])[facility] ([facility])[address] [place] [address] [place] GLOMERULAR FILTRATION RATE ML/MIN/1.73 SQ M.PREDICTED 55.7 mL/min/1.73m*2 Low >60.0 [facility] Comment on above: Result Comment: Calc ulation based on the Chronic Kidney Disease Epidemiology Collaboration (CKD-EPI) equation refit without adjustment for race Performed By: #### L AB15 ####Popcorn Vendor: SILVA REED ([id number])[facility] ([facility])[address] [place] [address] Glucose [Mass/Vol] 96 mg/dL Normal 70-100 [facility] Comment on above: Performed By: #### L AB15 ####Popcorn Vendor: SILVA REED ([id number])[facility] ([facility])[address] [place] [address] Potassium [Moles/Vol] 3.9 mmol/L Normal 3.5-5.[address] [facility] Comment on above: Performed By: #### L AB15 ####Popcorn Vendor: SILVA REED ([id number])[facility] ([facility])[address] [place] [address] Sodium [Moles/Vol] 131 mmol/L Low 135-145 [facility] Comment on above: Performed By: #### L AB15 ####Popcorn Vendor: SILVA REED ([id number])[facility])[address] [place] [address] Urea nitrogen [Mass/Vol] 26 mg/dL High 9-20 [facility] Comment on above: Performed By: #### L AB15 ####Popcorn Vendor: SILVA REED ([id number])[facility])[address] [place] [address] Basic metabolic 1998 panelon 02-05-2024 Anion gap [Moles/Vol] 7 mmol/L 3 - 13 mmol/L [facility] Calcium [Mass/Vol] 9.2 mg/dL 8.4 - 10. 4 mg/dL [facility] Chloride [Moles/Vol] 103 mmol/L 98 - 10 7 mmol/L [facility] CO2 [Moles/Vol] 21 mmol/L Low 22 - 30 mmol/L [facility] Creatinine [Mass/Vol] 1.31 mg/dL High 0.66 - 1.25 mg/dL [facility] GFR/1.73 sq M.predicted MDRD (S/P/Bld) [Vol rate/Area] 55.7 mL/min/{1.73_m2} Low - PINF [facility] Glucose [Mass/Vol] 96 mg/dL 70 - 100 mg/dL [facility] Interpretation and review of laboratory results Abnormal [facility] Potassium [Moles/Vol] 3.9 mmol/L 3.5 - 5.1 mmol/L [facility] Sodium [Moles/Vol] 131 mmol/L Low 135 - 145 mmol/L [facility] Urea nitrogen [Mass/Vol] 26 mg/dL High 9 - 20 mg/d L [facility] CARECOORDon 02-05-2024 CARECOORD Normal [facility] CBC (HEMOGRAM)on 02-05-2024 Erythrocyte distribution width (RBC) [Ratio] 16.5 % High 11.5-15.0 [facility] Comment on above: Performed By: #### L [id number] ####Popcorn Vendor: SILVA REED ([id number])[facility])[address] [place] [address] Hematocrit (Bld) [Volume fraction] 26.2 % Low 40.0-52.0 [facility] Comment on above: Performed By: #### L [id number] ####Popcorn Vendor: SILVA REED ([id number])[facility])[address] [place] [address] Hemoglobin (Bld) [Mass/Vol] 8.6 g/dL Low 13.0-18.0 [facility] Comment on above: Performed By: #### L [id number] ####Popcorn Vendor: SILVA REED ([phone])[facility] ([facility])[address] [place] [address] [place] IPF 6 Normal [facility] Comment on above: Performed By: #### L [id number] ####Popcorn Vendor: SILVA REED ([id number])[facility])[address] [place] [address] MCH (RBC) [Entitic mass] 29.3 pg Normal 26.0-34.0 [facility] Comment on above: Performed By: #### L [id number] ####Popcorn Vendor: SILVA REED ([id number])[facility])[address] [place] [address] MCHC 32.8 % Normal 30.5-36.0 [facility] Comment on above: Performed By: #### L [id number] ####Popcorn Vendor: SILVA REED ([id number])[facility])[address] [place] [address] MCV (RBC) [Entitic vol] 89.1 fL Normal 77.0-99.0 [facility] Comment on above: Performed By: #### L [id number] ####Popcorn Vendor: SILVA REED ([id number])[facility])[address] [place] [address] Platelet mean volume (Bld) [Entitic vol] 11.5 fL Normal 9.0-12.7 [facility] Comment on above: Performed By: #### L [id number] ####Popcorn Vendor: SILVA REED ([phone])[facility])[address] [place] [address] Platelets (Bld) [#/Vol] 89 10*3/uL Low 140-440 [facility] Comment on above: Performed By: #### L [id number] ####Popcorn Vendor: SILVA REED ([id number])[facility])[address] [place] [address] RBC (Bld) [#/Vol] 2.94 10*6/uL Low 4.40-5.90 [facility] Comment on above: Performed By: #### L [id number] ####Popcorn Vendor: SILVA REED ([phone])[facility])[address] [place] [address] WBC (Bld) [#/Vol] 7.7 10*3/uL Normal 3.6-10.7 [facility] Comment on above: Performed By: #### L [id number] ####Popcorn Vendor: SILVA REED ([id number])[facility] [place] [address] CBC W Auto Differential pane l (Bld)on 02-05-2024 Erythrocyte distribution width (RBC) [Ratio] 16.4 % High 11.5 - 15.0 % [facility] Hematocrit (Bld) [Volume fraction] 27.7 % Low 40.0 - 52.0 % [facility] Hemoglobin (Bld) [Mass/Vol] 9.0 g/dL Low 13.0 - 18.0 g/dL [facility] Interpretation and review of laboratory results Abnormal [facility] IPF 6 [facility] MCH (RBC) [Entitic mass] 29.3 pg 26. 0 - 34.0 pg [facility] MCHC (RBC) [Mass/Vol] 32.5 % 30.5 - 36.0 % [facility] MCV (RBC) [Entitic vol] 90.2 fL 77.0 - 99.0 fL [facility] Platelet mean volume (Bld) [Entitic vol] 11.2 fL 9.0 - 12.7 fL [facility] Platelets (Bld) [#/Vol] 105 10*3/uL Low 140 - 440 10*3/uL [facility] RBC (Bld) [#/Vol] 3.07 10*6/uL Low 4.40 - 5.9 0 10*6/uL [facility] WBC (Bld) [#/Vol] 8.0 10*3/uL 3.6 - 10.7 10*3/uL [facility] CBC WITH AUTO DIFFERENTIALon 02-05-2024 Erythrocyte distribution width (RBC) [Ratio] 16.4 % High 11.5-15.0 [facility] Comment on above: Performed By: #### L [id number], [id number] ####Popcorn Vendor: SILVA REED ([id number])[facility] ([facility])[address] [place] [address] Hematocrit (Bld) [Volume fraction] 27.7 % Low 40.0-52.0 [facility] Comment on above: Performed By: #### L [id number], [id number] ####Popcorn Vendor: SILVA REED ([phone])[facility])[address] [place] [address] Hemoglobin (Bld) [Mass/Vol] 9.0 g/dL Low 13.0-18.0 [facility] Comment on above: Performed By: #### L [id number], [id number] ####Popcorn Vendor: SILVA REED ([id number])[facility])[address] [place] [address] IPF 6 Normal [facility] Comment on above: Performed By: #### L [id number], [id number] ####Popcorn Vendor: SILVA REED ([id number])[facility])[address] [place] [address] MCH (RBC) [Entitic mass] 29.3 pg Normal 26.0-34.0 [facility] Comment on above: Performed By: #### Gama [id number], [id number] ####Popcorn Vendor: SILVA REED ([id number])[facility] ([facility])[address] [place] [address] MCHC 32.5 % Normal 30.5-36.0 [facility] Comment on above: Performed By: #### L [id number], [id number] ####Popcorn Vendor: SILVA REED ([id number])[facility])[address] [place] [address] MCV (RBC) [Entitic vol] 90.2 fL Normal 77.0-99.0 [facility] Comment on above: Performed By: #### L [id number], [id number] ####Popcorn Vendor: SILVA REED ([id number])[facility])[address] [place] [address] Platelet mean volume (Bld) [Entitic vol] 11.2 fL Normal 9.0-12.7 [facility] Comment on above: Performed By: #### L [id number], [id number] ####Popcorn Vendor: SILVA [id number])[facility] [place] [address] Platelets (Bld) [#/Vol] 105 10*3/uL Low 140-440 [facility] Comment on above: Performed By: #### L [id number], [id number] ####Popcorn Vendor: SILVA REED ([id number])[facility] ([facility])[address] [place] [address] RBC (Bld) [#/Vol] 3.07 10*6/uL Low 4.40-5.90 [facility] Comment on above: Performed By: #### L [id number], [id number] ####Popcorn Vendor: SILVA REED ([id number])[facility] ([facility])[address] [place] [address] WBC (Bld) [#/Vol] 8.0 10*3/uL Normal 3.6-10.7 [facility] Comment on above: Performed By: #### L [id number], [id number] ####Popcorn Vendor: SILVA REED ([id number])[facility] ([facility])[address] [place] [address] CBC panel Auto (Bld)Ordered By: Shanell Winn on 02-05-2024 Erythrocyte distribution width (RBC) [Ratio] 16.5 % High 11.5 - 15.0 % [facility] Hematocrit (Bld) [Volume fraction] 26.2 % Low 40.0 - 52.0 % [facility] Hemoglobin (Bld) [Mass/Vol] 8.6 g/dL Low 13.0 - 18.0 g/dL [facility] Interpretation and review of laboratory results Abnormal [facility] IPF 6 [facility] MCH (RBC) [Entitic mass] 29.3 pg 26. 0 - 34.0 pg [facility] MCHC (RBC) [Mass/Vol] 32.8 % 30.5 - 36.0 % [facility] MCV (RBC) [Entitic vol] 89.1 fL 77.0 - 99.0 fL [facility] Platelet mean volume (Bld) [Entitic vol] 11.5 fL 9.0 - 12.7 fL [facility] Platelets (Bld) [#/Vol] 89 10*3/uL Low 140 - 440 10*3/uL [facility] RBC (Bld) [#/Vol] 2.94 10*6/uL Low 4.40 - 5.9 0 10*6/uL [facility] WBC (Bld) [#/Vol] 7.7 10*3/uL 3.6 - 10.7 10*3/uL [facility] Laboratory - Chemistry and C hemistry - challengeon 02-05-2024 Glucose [Mass/Vol] 117 mg/dL High 70 - 100 mg/dL [facility] Laboratory - Coagulationon 0 02-05-2024 aPTT Coag (PPP) [Time] 31.0 s High 20.0 - 30.5 s [facility] INR Coag (PPP) [Relative time] 1.0 {INR} 0.9 - 1.1 [facility] PT Coag (Bld) [Time] 11.4 s 9.0 - 12.0 s [facility] Laboratory - Hematology and Cell countson 02-05-2024 Band form neutrophils (Bld) [#/Vol] 0.3 10*3/uL High NINF - 0.0 10*3/uL [facility] Band form neutrophils/100 WBC (Bld) 4 % High NINF - 0 % [facility] Basophils (Bld) [#/Vol] 0.1 10*3/uL 0.0 - 0.2 10*3/uL [facility] Basophils/100 WBC (Bld) 1 % 0 - 2 % S [facility] Eosinophils (Bld) [#/Vol] 0.2 10*3/uL 0.0 - 0.5 10*3/uL [facility] Eosinophils/100 WBC (Bld) 3 % 0 - 6 % [facility] Lymphocytes (Bld) [#/Vol] 0.2 10*3/uL Low 1.0 - 4.3 10*3/uL [facility] Lymphocytes/100 WBC (Bld) 3 % Low 15 - 45 % [facility] Monocytes (Bld) [#/Vol] 0.3 10*3/uL 0.0 - 0.9 10*3/uL [facility] Monocytes/100 WBC (Bld) 4 % Low 5 - 13 % S [facility] Neutrophils (Bld) [#/Vol] 7.1 10*3/uL 1.8 - 7.5 10*3/uL [facility] RBC morphology finding Nom (Bld) Normal [facility] Segmented neutrophils/100 WBC (Bld) 85 % High 38 - 82 % [facility] MANUAL DIFFERENTIAL (CELLAVI DON)on 02-05-2024 BAND NEUTROPHILS TOTAL PER COUNTED LEUKOCYTES BY MANUAL COUNT 4 Normal [facility] Comment on above: Performed By: #### Gama HANDLEY, [id number] ####Popcorn Vendor: SILVA REED ([id number])[facility] [place] [address] [place] BANDS (10*3/UL) IN BLOOD-CELLAVISION 0.3 10*3/uL High <=0.0 [facility] Comment on above: Performed By: #### Gama HANDLEY, [id number] ####Popcorn Vendor: SILVA REED ([phone])[facility] ([facility])[address] [place] [address] [place] BASOPHILS (10*3/UL) IN BLOOD-CELLAVISION 0.1 10*3/uL Normal 0.0-0.2 [facility] Comment on above: Performed By: #### Gama HANDLEY, [id number] ####Popcorn Vendor: SILVA REED ([id number])[facility] ([facility])[address] [place] [address] [place] BASOPHILS TOTAL PER COUNTED LEUKOCYTES BY MANUAL COUNT 1 Normal [facility] Comment on above: Performed By: #### Gama HANDLEY, [id number] ####Popcorn Vendor: SILVA REED ([id number])[facility] ([facility])[address] [place] [address] [place] BASOPHILS/100 LEUKOCYTES IN BLOOD-CELLAVISION 1 % Normal 0-2 [facility] Comment on above: Performed By: #### Gama [id number], [id number] ####Popcorn Vendor: SILVA REED ([id number])[facility] ([facility])[address] [place] [address] [place] BLASTS TOTAL PER COUNTED LEUKOCYTES BY MANUAL COUNT Normal [facility] Comment on above: Performed By: #### L [id number], [id number] ####Popcorn Vendor: SILVA REED ([id number])[facility])[address] [place] [address] [place] EOSINOPHILS (10*3/UL) IN BLOOD-CELLAVISION 0.2 10*3/uL Normal 0.0-0.5 [facility] Comment on above: Performed By: #### L [id number], [id number] ####Popcorn Vendor: SILVA REED ([phone])[facility] ([facility])[address] [place] [address] [place] EOSINOPHILS TOTAL PER COUNTED LEUKOCYTES BY MANUAL COUNT 3 High 0-1 [facility] Comment on above: Performed By: #### L [id number], [id number] ####Popcorn Vendor: SILVA REED ([id number])[facility])[address] [place] [address] [place] EOSINOPHILS/100 LEUKOCYTES IN BLOOD-CELLAVISION 3 % Normal 0-6 [facility] Comment on above: Performed By: #### L [id number], [id number] ####Popcorn Vendor: SILVA REED ([phone])[facility])[address] [place] [address] [place] LYMPHOCYTES (10*3/UL) IN BLOOD-CELLAVISION 0.2 10*3/uL Low 1.0-4.3 [facility] Comment on above: Performed By: #### L [id number], [id number] ####Popcorn Vendor: SILVA REED ([phone])[facility] ([facility])[address] [place] [address] [place] LYMPHOCYTES TOTAL PER COUNTED LEUKOCYTES BY MANUAL COUNT 3 Normal [facility] Comment on above: Performed By: #### L [id number], [id number] ####Popcorn Vendor: SILVA REED ([phone])[facility] ([facility])[address] [place] [address] [place] LYMPHOCYTES/100 LEUKOCYTES IN BLOOD-CELLAVISION 3 % Low 15-45 [facility] Comment on above: Performed By: #### L [id number], [id number] ####Popcorn Vendor: SILVA REED ([phone])[facility])[address] [place] [address] METAMYELOCYTES TOTAL PER COUNTED LEUKOCYTES BY MANUAL COUNT Normal [facility] Comment on above: Performed By: #### L [id number], [id number] ####Popcorn Vendor: SILVA REED ([id number])[facility])[address] [place] [address] MONOCYTES (10*3/UL) IN BLOOD-CELLAVISION 0.3 10*3/uL Normal 0.0-0.9 [facility] Comment on above: Performed By: #### L [id number], [id number] ####Popcorn Vendor: SILVA REED ([id number])[facility])[address] [place] [address] MONOCYTES TOTAL PER COUNTED LEUKOCYTES BY MANUAL COUNT 4 Normal [facility] Comment on above: Performed By: #### L [id number], [id number] ####Popcorn Vendor: SILVA REED ([id number])[facility])[address] [place] [address] [place] MONOCYTES/100 LEUKOCYTES IN BLOOD-JIMMY 4 % Low 5-13 [facility] Comment on above: Performed By: #### L [id number], [id number] ####Popcorn Vendor: SILVA REED ([id number])[facility])[address] [place] [address] MYELOCYTES COUNTED BY MANUAL COUNT Normal [facility] Comment on above: Performed By: #### L [id number], [id number] ####Popcorn Vendor: SILVA REED ([id number])[facility])[address] [place] [address] NEUTROPHILS BAND FORM/100 LEUKOCYTES IN BLOOD-CELLAVISI 4 % High <=0 [facility] Comment on above: Performed By: #### L [id number], [id number] ####Popcorn Vendor: SILVA REED ([id number])[facility] ([facility])[address] [place] [address] [place] NEUTROPHILS TOTAL PER COUNTED LEUKOCYTES BY MANUAL COUNT 85 Normal [facility] Comment on above: Performed By: #### L [id number], [id number] ####Popcorn Vendor: SILVA REED ([id number])[facility] [place] [address] [place] PROMYELOCYTES TOTAL PER COUNTED LEUKOCYTES BY MANUAL COUNT [facility] Comment on above: Performed By: #### L [id number], [id number] ####Popcorn Vendor: SILVA REED ([id number])[facility] ([facility])[address] [place] [address] [place] RBC MORPHOLOGY IN BLOOD Normal Normal [facility] Comment on above: Performed By: #### L [id number], [id number] ####Popcorn Vendor: SILVA REED ([id number])[facility])[address] [place] [address] [place] SEGMENTED NEUTROPHILS (10*3/UL) IN BLOOD-CELLAVISION 7.1 10*3/uL Normal 1.8-7.5 [facility] Comment on above: Performed By: #### L [id number], [id number] ####Popcorn Vendor: SILVA REED ([id number])[facility])[address] [place] [address] [place] SEGMENTED NEUTROPHILS/100 LEUKOCYTES-CE 85 % High 38-82 [facility] Comment on above: Performed By: #### L [id number], [id number] ####Popcorn Vendor: SILVA REED ([id number])[facility] ([facility])[address] [place] [address] [place] UNCLASSIFIED CELLS TOTAL PER COUNTED LEUKOCYTES BY MANUAL COUNT [facility] Comment on above: Performed By: #### L [id number], [id number] ####Popcorn Vendor: SILVA REED ([id number])[facility])[address] [place] [address] [place] VARIANT LYMPHOCYTES TOTAL PER COUNTED LEUKOCYTES BY MANUAL COUNT Normal [facility] Comment on above: Performed By: #### L [id number], [id number] ####Popcorn Vendor: SILVA REED ([id number])[facility])[address] [place] [address] No Panel Informationon 02-04 Interpretation and review of laboratory results Abnormal [facility] Bands Manual 4 [facility] Basophils Manual 1 [facility] alth Eosinophils Manual 3 High 0 - 1 [facility] Interpretation and review of laboratory results Abnormal [facility] Lymphocytes Manual 3 [facility] Monocytes Manual 4 [facility] alth Neutrophils Manual 85 [facility] Interpretation and review of laboratory results Abnormal [facility] PROTIME AND APTTon aPTT Coag (Bld) [Time] 31.0 s High 20.0-30.5 [facility] Comment on above: Performed By: #### L [id number] ####Popcorn Vendor: SILVA REED ([id number])[address] INR Coag (PPP) [Relative time] 1.0 {INR} Normal 0.9-1.1 [facility] Comment on above: Result Comment: Frank mmended Anticoagulant Therapy: SEE BELOW----- INR of 2.0 - 3.0 : - Prophylaxis of Venous Thrombosis (high-risk surgery) - Treatment of Venous Thrombosis - Treatment of Pulmonary Embolism (Includes tissue heart valves, Acute Myocardial Infarction to prevent systemic embolism, Valvular Heart Disease, and Atrial Fibrillation)----- INR of 2.5 - 3.5 : - Mechanical Prosthetic Valves (high risk) - If oral anticoagulant therapy is used to prevent Myocardial Infarction Performed By: #### L [id number] ####Popcorn Vendor: SILVA REED ([id number])[address] PT Coag (PPP) [Time] 11.4 s Normal 9.0-12.0 [facility] Comment on above: Performed By: #### L [id number] ####Popcorn Vendor: SILVA REED ([phone])[facility])[address] [place] [address] [place] Progress Noteon 02-05-2024 Progress Note Normal [facility] Progress Note Normal [facility] Progress Note Normal [facility] XR CHEST 1 VIEWon 02-05-2024 XR CHEST 1 VIEW Normal [facility] XR Chest Single viewon 02-04 [facility] SYSTEM [facility] Radiology Study observation (narrative) [facility] BASIC METABOLIC PANELon 01-17 Anion gap [Moles/Vol] 9 mmol/L Normal 3-[address] [facility] Comment on above: Performed By: #### L [id number], [id number] ####Popcorn Vendor: SILVA REED ([id number])[facility] ([facility])[address] [place] [address] Calcium [Mass/Vol] 9.5 mg/dL Normal 8.4-10.4 [facility] Comment on above: Performed By: #### L [id number], [id number] ####Popcorn Vendor: SILVA REED ([id number])[facility])[address] [place] [address] [place] Chloride [Moles/Vol] 104 mmol/L Normal 98-107 [facility] Comment on above: Performed By: #### L [id number], [id number] ####Popcorn Vendor: SILVA REED ([id number])[facility])[address] [place] [address] [place] CO2 [Moles/Vol] 21 mmol/L Low 22-30 [facility] Comment on above: Performed By: #### L [id number], [id number] ####Popcorn Vendor: SILVA REED ([id number])[facility] ([facility])[address] [place] [address] [place] Creatinine [Mass/Vol] 1.00 mg/dL Normal 0.66-1.25 [facility] Comment on above: Performed By: #### L [id number], [id number] ####Popcorn Vendor: SILVA REED ([id number])[facility])[address] [place] [address] GLOMERULAR FILTRATION RATE ML/MIN/1.73 SQ M.PREDICTED 77.0 mL/min/1.73m*2 Normal >60.0 [facility] Comment on above: Result Comment: Calc ulation based on the Chronic Kidney Disease Epidemiology Collaboration (CKD-EPI) equation refit without adjustment for race Performed By: #### L [id number], [id number] ####Popcorn Vendor: SILVA REED ([phone])[facility])[address] [place] [address] Glucose [Mass/Vol] 115 mg/dL High 70-100 [facility] Comment on above: Performed By: #### L [id number], [id number] ####Popcorn Vendor: SILVA REED ([id number])[facility])[address] [place] [address] Potassium [Moles/Vol] 4.1 mmol/L Normal 3.5-5.[address] [facility] Comment on above: Performed By: #### L [id number], [id number] ####Popcorn Vendor: SILVA REED ([id number])[facility])[address] [place] [address] Sodium [Moles/Vol] 134 mmol/L Low 135-145 [facility] Comment on above: Performed By: #### L AB15, [id number] ####Popcorn Vendor: SILVA REED ([id number])[facility])[address] [place] [address] Urea nitrogen [Mass/Vol] 20 mg/dL Normal 9-20 [facility] Comment on above: Performed By: #### L AB15, [id number] ####Popcorn Vendor: SILVA REED ([id number])[address] Basic metabolic 1998 panelon 02-04-2024 Anion gap [Moles/Vol] 9 mmol/L 3 - 13 mmol/L [facility] Calcium [Mass/Vol] 9.5 mg/dL 8.4 - 10. 4 mg/dL [facility] Chloride [Moles/Vol] 104 mmol/L 98 - 10 7 mmol/L [facility] CO2 [Moles/Vol] 21 mmol/L Low 22 - 30 mmol/L [facility] Creatinine [Mass/Vol] 1.00 mg/dL 0.66 - 1.25 mg/dL [facility] GFR/1.73 sq M.predicted MDRD (S/P/Bld) [Vol rate/Area] 77.0 mL/min/{1.73_m2} - PINF [facility] Glucose [Mass/Vol] 115 mg/dL High 70 - 100 mg/dL [facility] Interpretation and review of laboratory results Abnormal [facility] Potassium [Moles/Vol] 4.1 mmol/L 3.5 - 5.1 mmol/L [facility] Sodium [Moles/Vol] 134 mmol/L Low 135 - 145 mmol/L [facility] Urea nitrogen [Mass/Vol] 20 mg/dL 9 - 20 mg/d L [facility] CARECOORDon 02-04-2024 CARECOORD Normal [facility] CBC (HEMOGRAM)on 02-04-2024 Erythrocyte distribution width (RBC) [Ratio] 16.6 % High 11.5-15.0 [facility] Comment on above: Performed By: #### L [id number] ####Popcorn Vendor: SILVA REED ([phone])[address] Hematocrit (Bld) [Volume fraction] 28.5 % Low 40.0-52.0 [facility] Comment on above: Performed By: #### L [id number] ####Popcorn Vendor: SILVA REED ([phone])[facility])[address] [place] [address] Hemoglobin (Bld) [Mass/Vol] 9.2 g/dL Low 13.0-18.0 [facility] Comment on above: Performed By: #### L [id number] ####Popcorn Vendor: SILVA REED ([id number])[facility])[address] [place] [address] [place] IPF 6 Normal [facility] Comment on above: Performed By: #### L [id number] ####Popcorn Vendor: SILVA REED ([id number])[facility] ([facility])[address] [place] [address] MCH (RBC) [Entitic mass] 29.2 pg Normal 26.0-34.0 [facility] Comment on above: Performed By: #### L [id number] ####Popcorn Vendor: SILVA REED ([id number])[facility] ([facility])[address] [place] [address] MCHC 32.3 % Normal 30.5-36.0 [facility] Comment on above: Performed By: #### L [id number] ####Popcorn Vendor: SILVA REED ([phone])[facility])[address] [place] [address] MCV (RBC) [Entitic vol] 90.5 fL Normal 77.0-99.0 [facility] Comment on above: Performed By: #### L [id number] ####Popcorn Vendor: SILVA REED ([id number])[facility] ([facility])[address] [place] [address] Platelet mean volume (Bld) [Entitic vol] 10.8 fL Normal 9.0-12.7 [facility] Comment on above: Performed By: #### L [id number] ####Popcorn Vendor: SILVA REED ([id number])[facility] ([facility])[address] [place] [address] Platelets (Bld) [#/Vol] 107 10*3/uL Low 140-440 [facility] Comment on above: Performed By: #### L [id number] ####Popcorn Vendor: SILVA REED ([id number])[facility] ([facility])[address] [place] [address] RBC (Bld) [#/Vol] 3.15 10*6/uL Low 4.40-5.90 [facility] Comment on above: Performed By: #### L [id number] ####Popcorn Vendor: SILVA REED ([id number])[facility] ([facility])[address] [place] [address] WBC (Bld) [#/Vol] 11.7 10*3/uL High 3.6-10.7 [facility] Comment on above: Performed By: #### L [id number] ####Popcorn Vendor: SILVA REED ([id number])[facility] ([facility])[address] [place] [address] CBC panel Auto (Bld)on 02-03 Erythrocyte distribution width (RBC) [Ratio] 16.6 % High 11.5 - 15.0 % [facility] Hematocrit (Bld) [Volume fraction] 28.5 % Low 40.0 - 52.0 % [facility] Hemoglobin (Bld) [Mass/Vol] 9.2 g/dL Low 13.0 - 18.0 g/dL [facility] Interpretation and review of laboratory results Abnormal [facility] IPF 6 [facility] MCH (RBC) [Entitic mass] 29.2 pg 26. 0 - 34.0 pg [facility] MCHC (RBC) [Mass/Vol] 32.3 % 30.5 - 36.0 % [facility] MCV (RBC) [Entitic vol] 90.5 fL 77.0 - 99.0 fL [facility] Platelet mean volume (Bld) [Entitic vol] 10.8 fL 9.0 - 12.7 fL [facility] Platelets (Bld) [#/Vol] 107 10*3/uL Low 140 - 440 10*3/uL [facility] RBC (Bld) [#/Vol] 3.15 10*6/uL Low 4.40 - 5.9 0 10*6/uL [facility] WBC (Bld) [#/Vol] 11.7 10*3/uL High 3.6 - 10.7 10*3/uL [facility] ECG 12-LEADon 02-04-2024 ECG 12-LEAD IMPRESSION: Afib/flut and V-paced complexes Left axis deviation Electronically Signed On 02-04-2024 09:15:27 EDT by Joey Neal Normal [facility] IDNon 02-04-2024 IDN Normal [facility] Laboratory - Chemistry and C hemistry - challengeon 02-04-2024 Glucose [Mass/Vol] 105 mg/dL High 70 - 100 mg/dL [facility] Magnesium [Mass/Vol] 1.8 mg/dL 1.6 - 2 .3 mg/dL [facility] Laboratory - Coagulationon 0 02-04-2024 aPTT Coag (PPP) [Time] 32.7 s High 20.0 - 30.5 s [facility] INR Coag (PPP) [Relative time] 1.1 {INR} 0.9 - 1.1 [facility] PT Coag (Bld) [Time] 11.8 s 9.0 - 12.0 s [facility] MAGNESIUMon 02-04-2024 Magnesium [Mass/Vol] 1.8 mg/dL Normal 1.6-2.3 [facility] Comment on above: Performed By: #### L [id number], [id number] ####Popcorn Vendor: SILVA REED ([phone])[address] Magnesium [Mass/Vol]on 02-03 Interpretation and review of laboratory results Normal [facility] No Panel InformationOrdered By: Joey Neal on 02-04-2024 P [place] 0 degrees [facility] [employer] Work Phone: [place] Interval 0 ms [facility] Work Phone: QRS [place] -56 degrees [facility] Work Phone: QRSD Interval 105 ms [facility] [employer] Work Phone: QT Interval 424 ms [facility] [employer] Work Phone: QTC Interval 473 ms [facility] Work Phone: T Wave [place] -47 degrees [facility] Work Phone: [facility] Work Phone: No Panel Informationon 02-03 CV EPIPHANY [facility] Interpretation and review of laboratory results Abnormal [facility] Interpretation and review of laboratory results Abnormal [facility] PROTIME AND APTTon aPTT Coag (Bld) [Time] 32.7 s High 20.0-30.5 [facility] Comment on above: Performed By: #### L [id number] ####Popcorn Vendor: SILVA REED ([id number])[facility])[address] [place] [address] INR Coag (PPP) [Relative time] 1.1 {INR} Normal 0.9-1.1 [facility] Comment on above: Result Comment: Frank mmended Anticoagulant Therapy: SEE BELOW----- INR of 2.0 - 3.0 : - Prophylaxis of Venous Thrombosis (high-risk surgery) - Treatment of Venous Thrombosis - Treatment of Pulmonary Embolism (Includes tissue heart valves, Acute Myocardial Infarction to prevent systemic embolism, Valvular Heart Disease, and Atrial Fibrillation)----- INR of 2.5 - 3.5 : - Mechanical Prosthetic Valves (high risk) - If oral anticoagulant therapy is used to prevent Myocardial Infarction Performed By: #### L [id number] ####Popcorn Vendor: SILVA REED ([id number])[facility])[address] [place] [address] PT Coag (PPP) [Time] 11.8 s Normal 9.0-12.0 [facility] Comment on above: Performed By: #### L [id number] ####Popcorn Vendor: SILVA REED ([id number])[facility])[address] [place] [address] Progress Noteon 02-04-2024 Progress Note Normal [facility] Progress Note Normal [facility] Progress Note Normal [facility] Progress Note Normal [facility] Vital signsOrdered By: Kevin Neal on 02-04-2024 Heart rate 75 /min bpm [facility] [employer] Phone: XR CHEST 1 VIEWon 02-04-2024 XR CHEST 1 VIEW Normal [facility] XR Chest Single viewon 02-03 [facility] Radiology Study observation (narrative) [facility] XR Chest Single viewOrdered By: Micah Santillan on 02-04-2024 [facility] [employer] Phone: BASIC METABOLIC PANELon 01-17 Anion gap [Moles/Vol] 10 mmol/L Normal 3-[address] [facility] Comment on above: Performed By: #### L [id number] ####Popcorn Vendor: SILVA REED ([id number])[facility] [place] [address] Calcium [Mass/Vol] 9.0 mg/dL Normal 8.4-10.4 [facility] Comment on above: Performed By: #### L AB15 ####Popcorn Vendor: SILVA REED ([id number])[facility])[address] [place] [address] Chloride [Moles/Vol] 104 mmol/L Normal 98-107 [facility] Comment on above: Performed By: #### L AB15 ####Popcorn Vendor: SILVA REED ([id number])[facility])[address] [place] [address] CO2 [Moles/Vol] 20 mmol/L Low 22-30 [facility] Comment on above: Performed By: #### L AB15 ####Popcorn Vendor: SILVA REED ([id number])[facility] ([facility])[address] [place] [address] Creatinine [Mass/Vol] 1.14 mg/dL Normal 0.66-1.[address] [facility] Comment on above: Performed By: #### L AB15 ####Popcorn Vendor: SILVA REED ([id number])[facility] ([facility])[address] [place] [address] GLOMERULAR FILTRATION RATE ML/MIN/1.73 SQ M.PREDICTED 65.8 mL/min/1.73m*2 Normal >60.0 [facility] Comment on above: Result Comment: Calc ulation based on the Chronic Kidney Disease Epidemiology Collaboration (CKD-EPI) equation refit without adjustment for race Performed By: #### L AB15 ####Popcorn Vendor: SILVA REED ([id number])[facility])[address] [place] [address] Glucose [Mass/Vol] 125 mg/dL High 70-100 [facility] Comment on above: Performed By: #### L AB15 ####Popcorn Vendor: SILVA REED ([id number])[facility])[address] [place] [address] Potassium [Moles/Vol] 4.3 mmol/L Normal 3.5-5.[address] [facility] Comment on above: Performed By: #### L AB15 ####Popcorn Vendor: SILVA REED ([id number])[facility] ([facility])[address] [place] [address] Sodium [Moles/Vol] 134 mmol/L Low 135-145 [facility] Comment on above: Performed By: #### L AB15 ####Popcorn Vendor: SILVA REED ([id number])[facility] ([facility])[address] [place] [address] Urea nitrogen [Mass/Vol] 20 mg/dL Normal 9-20 [facility] Comment on above: Performed By: #### L AB15 ####Popcorn Vendor: SILVA REED ([id number])[facility] ([facility])[address] [place] [address] Anion gap [Moles/Vol] 8 mmol/L Normal 3-13 [facility] Comment on above: Performed By: #### L AB15, [id number] ####Popcorn Vendor: SILVA REED ([id number])[facility] ([facility])[address] [place] [address] Calcium [Mass/Vol] 8.7 mg/dL Normal 8.4-10.4 [facility] Comment on above: Performed By: #### L AB15, [id number] ####Popcorn Vendor: SILVA REED ([id number])[facility] ([facility])[address] [place] [address] [place] Chloride [Moles/Vol] 109 mmol/L High 98-107 [facility] Comment on above: Performed By: #### L AB15, [id number] ####Popcorn Vendor: SILVA REED ([id number])[facility] [place] [address] [place] CO2 [Moles/Vol] 20 mmol/L Low 22-30 [facility] Comment on above: Performed By: #### L AB15, [id number] ####Popcorn Vendor: SILVA REED ([id number])[facility] ([facility])[address] [place] [address] Creatinine [Mass/Vol] 1.11 mg/dL Normal 0.66-1.[address] [facility] Comment on above: Performed By: #### L AB15, [id number] ####Popcorn Vendor: SILVA REED ([id number])[facility] ([facility])[address] [place] [address] GLOMERULAR FILTRATION RATE ML/MIN/1.73 SQ M.PREDICTED 68.0 mL/min/1.73m*2 Normal >60.0 [facility] Comment on above: Result Comment: Calc ulation based on the Chronic Kidney Disease Epidemiology Collaboration (CKD-EPI) equation refit without adjustment for race Performed By: #### L AB15, [id number] ####Popcorn Vendor: SILVA REED ([id number])[facility] ([facility])[address] [place] [address] [place] Glucose [Mass/Vol] 114 mg/dL High 70-100 [facility] Comment on above: Performed By: #### L AB15, [id number] ####Popcorn Vendor: SILVA REED ([id number])[facility] ([facility])[address] [place] [address] [place] Potassium [Moles/Vol] 4.6 mmol/L Normal 3.5-5.[address] [facility] Comment on above: Performed By: #### L AB15, [id number] ####Popcorn Vendor: SILVA REED ([phone])[facility])[address] [place] [address] Sodium [Moles/Vol] 138 mmol/L Normal 135-145 [facility] Comment on above: Performed By: #### L AB15, [id number] ####Popcorn Vendor: SILVA [id number])[facility] ([facility])[address] [place] [address] Urea nitrogen [Mass/Vol] 20 mg/dL Normal 9-20 [facility] Comment on above: Performed By: #### L AB15, [id number] ####Popcorn Vendor: SILVA REED ([id number])[facility] ([facility])[address] [place] [address] BLOOD GAS ARTERIALon 024 Base excess Calc (Bld) [Moles/Vol] -3.1000 mmol/L Low -3.0-3.0 [facility] Comment on above: Performed By: #### L AB76 ####Popcorn Vendor: SILVA REED ([id number])[facility])[address] [place] [address] CO2 [Moles/Vol] 23.8 mmol/L Normal 23.0-27.0 [facility] Comment on above: Performed By: #### L AB76 ####Popcorn Vendor: SILVA REED ([id number])[facility] ([facility])[address] [place] [address] HCO3 (Bld) [Moles/Vol] 22.5 mmol/L Normal 21.0-25.0 [facility] Comment on above: Performed By: #### L AB76 ####Popcorn Vendor: SILVA REED ([id number])[facility] ([facility])[address] [place] [address] Hemoglobin (Bld) [Mass/Vol] 10.2 g/dL Normal Screen only [facility] Comment on above: Performed By: #### L AB76 ####Popcorn Vendor: SILVA REED ([id number])[facility])[address] [place] [address] OXYGEN SATURATION (%) IN ARTERIAL BLOOD 98.0 % Normal 95.0-100.0 [facility] Comment on above: Performed By: #### L AB76 ####Popcorn Vendor: SILVA REED ([id number])[facility] ([facility])[address] [place] [address] PCO2 ARTERIAL 42.8 mm Hg Normal >35.0-<45.0 [facility] Comment on above: Performed By: #### L AB76 ####Popcorn Vendor: SILVA REED ([id number])[facility] ([facility])[address] [place] [address] PH ARTERIAL 7.339 Low 7.350-7.450 [facility] Comment on above: Performed By: #### L AB76 ####Popcorn Vendor: SILVA REED ([id number])[facility] [place] [address] PO2 ARTERIAL 125.8 mm Hg High 80.0-100.0 [facility] Comment on above: Performed By: #### L AB76 ####Popcorn Vendor: SILVA REED ([id number])[facility] ([facility])[address] [place] [address] SOURCE OF OXYGEN 40% Oxygen Normal [facility] Comment on above: Performed By: #### L AB76 ####Popcorn Vendor: SILVA REED ([id number])[facility] [place] [address] Basic metabolic 1998 panelon 02-03-2024 Anion gap [Moles/Vol] 10 mmol/L 3 - 13 mmol/L [facility] Calcium [Mass/Vol] 9.0 mg/dL 8.4 - 10. 4 mg/dL [facility] Chloride [Moles/Vol] 104 mmol/L 98 - 10 7 mmol/L [facility] CO2 [Moles/Vol] 20 mmol/L Low 22 - 30 mmol/L [facility] Creatinine [Mass/Vol] 1.14 mg/dL 0.66 - 1.25 mg/dL [facility] GFR/1.73 sq M.predicted MDRD (S/P/Bld) [Vol rate/Area] 65.8 mL/min/{1.73_m2} - PINF [facility] Glucose [Mass/Vol] 125 mg/dL High 70 - 100 mg/dL [facility] Interpretation and review of laboratory results Abnormal [facility] Potassium [Moles/Vol] 4.3 mmol/L 3.5 - 5.1 mmol/L [facility] Sodium [Moles/Vol] 134 mmol/L Low 135 - 145 mmol/L [facility] Urea nitrogen [Mass/Vol] 20 mg/dL 9 - 20 mg/d L [facility] Anion gap [Moles/Vol] 8 mmol/L 3 - 13 mmol/L [facility] Calcium [Mass/Vol] 8.7 mg/dL 8.4 - 10. 4 mg/dL [facility] Chloride [Moles/Vol] 109 mmol/L High 98 - 10 7 mmol/L [facility] CO2 [Moles/Vol] 20 mmol/L Low 22 - 30 mmol/L [facility] Creatinine [Mass/Vol] 1.11 mg/dL 0.66 - 1.25 mg/dL [facility] GFR/1.73 sq M.predicted MDRD (S/P/Bld) [Vol rate/Area] 68.0 mL/min/{1.73_m2} - PINF [facility] Glucose [Mass/Vol] 114 mg/dL High 70 - 100 mg/dL [facility] Interpretation and review of laboratory results Abnormal [facility] Potassium [Moles/Vol] 4.6 mmol/L 3.5 - 5.1 mmol/L [facility] Sodium [Moles/Vol] 138 mmol/L 135 - 145 mmol/L [facility] Urea nitrogen [Mass/Vol] 20 mg/dL 9 - 20 mg/d L [facility] CALCIUM, IONIZEDon 4 CALCIUM IONIZED 4.50 mg/dL Normal 4.30-5.20 [facility] Comment on above: Order Comment: Obtai n PRN and check ionized Ca level if serum Ca level less than 8.0 Performed By: #### L AB54 ####Popcorn Vendor: SILVA REED ([id number])[facility] ([address] PH, IONIZED CALCIUM 7.37 Normal 7.31-7.46 [facility] Comment on above: Order Comment: Obtai n PRN and check ionized Ca level if serum Ca level less than 8.0 Performed By: #### L AB54 ####Popcorn Vendor: SILVA REED ([id number])[facility])[address] [place] [address] CARECOORDon 02-03-2024 CARECOORD Normal [facility] CBC (HEMOGRAM)on 02-03-2024 Erythrocyte distribution width (RBC) [Ratio] 16.4 % High 11.5-15.0 [facility] Comment on above: Performed By: #### L AB294 ####Popcorn Vendor: SILVA REED ([id number])[facility])[address] [place] [address] Hematocrit (Bld) [Volume fraction] 29.4 % Low 40.0-52.0 [facility] Comment on above: Performed By: #### L AB294 ####Popcorn Vendor: SILVA REED ([id number])[facility])[address] [place] [address] Hemoglobin (Bld) [Mass/Vol] 9.5 g/dL Low 13.0-18.0 [facility] Comment on above: Performed By: #### L AB294 ####Popcorn Vendor: SILVA REED ([id number])[facility])[address] [place] [address] IPF 3 Normal [facility] Comment on above: Performed By: #### L AB294 ####Popcorn Vendor: SILVA REED ([id number])[facility])[address] [place] [address] MCH (RBC) [Entitic mass] 29.6 pg Normal 26.0-34.0 [facility] Comment on above: Performed By: #### L AB294 ####Popcorn Vendor: SILVA REED ([id number])[facility])[address] [place] [address] MCHC 32.3 % Normal 30.5-36.0 [facility] Comment on above: Performed By: #### L AB294 ####Popcorn Vendor: SILVA REED ([id number])[facility])[address] [place] [address] MCV (RBC) [Entitic vol] 91.6 fL Normal 77.0-99.0 [facility] Comment on above: Performed By: #### L AB294 ####Popcorn Vendor: SILVA REED ([id number])[facility])[address] [place] [address] Platelet mean volume (Bld) [Entitic vol] 10.6 fL Normal 9.0-12.7 [facility] Comment on above: Performed By: #### L AB294 ####Popcorn Vendor: SILVA REED ([id number])[facility])[address] [place] [address] Platelets (Bld) [#/Vol] 114 10*3/uL Low 140-440 [facility] Comment on above: Performed By: #### L AB294 ####Popcorn Vendor: SILVA REED ([id number])[facility])[address] [place] [address] RBC (Bld) [#/Vol] 3.21 10*6/uL Low 4.40-5.90 [facility] Comment on above: Performed By: #### L AB294 ####Popcorn Vendor: SILVA REED ([id number])[facility])[address] [place] [address] WBC (Bld) [#/Vol] 9.2 10*3/uL Normal 3.6-10.7 [facility] Comment on above: Performed By: #### L AB294 ####Popcorn Vendor: SILVA REED ([id number])[facility])[address] [place] [address] CBC panel Auto (Bld)Ordered By: Kailey Rodriguez on 02-03-2024 Erythrocyte distribution width (RBC) [Ratio] 16.4 % High 11.5 - 15.0 % [facility] Hematocrit (Bld) [Volume fraction] 29.4 % Low 40.0 - 52.0 % [facility] Hemoglobin (Bld) [Mass/Vol] 9.5 g/dL Low 13.0 - 18.0 g/dL [facility] Interpretation and review of laboratory results Abnormal [facility] IPF 3 [facility] MCH (RBC) [Entitic mass] 29.6 pg 26. 0 - 34.0 pg [facility] MCHC (RBC) [Mass/Vol] 32.3 % 30.5 - 36.0 % [facility] MCV (RBC) [Entitic vol] 91.6 fL 77.0 - 99.0 fL [facility] Platelet mean volume (Bld) [Entitic vol] 10.6 fL 9.0 - 12.7 fL [facility] Platelets (Bld) [#/Vol] 114 10*3/uL Low 140 - 440 10*3/uL [facility] RBC (Bld) [#/Vol] 3.21 10*6/uL Low 4.40 - 5.9 0 10*6/uL [facility] WBC (Bld) [#/Vol] 9.2 10*3/uL 3.6 - 10.7 10*3/uL [facility] Calcium.ionized [Moles/Vol]o n 02-03-2024 Calcium.ionized (Bld) [Moles/Vol] 4.50 mg/dL 4.30 - 5.20 mg/dL [facility] Interpretation and review of laboratory results Normal [facility] PH, IONIZED CALCIUM 7.37 7.31 - 7.46 [facility] Consulton 02-03-2024 Consult Normal [facility] Consult Normal [facility] ECG 12-LEADon 02-03-2024 ECG 12-LEAD IMPRESSION: A-V dual-paced rhythm with some inhibition Electronically Signed On 02-03-2024 15:22:09 EDT by [facility] ECG 12-LEAD IMPRESSION: Ventricular-paced rhythm Electronically Signed On 02-03-2024 14:43:43 EDT by [facility] IDNon 02-03-2024 IDN The patient is Moderately Stable - Low risk of patient condition declining or worsening Normal [facility] Laboratory - Chemistry and C hemistry - challengeon 02-03-2024 Glucose [Mass/Vol] 108 mg/dL High 70 - 100 mg/dL [facility] Glucose [Mass/Vol] 133 mg/dL High 70 - 100 mg/dL [facility] Glucose [Mass/Vol] 138 mg/dL High 70 - 100 mg/dL [facility] Glucose [Mass/Vol] 130 mg/dL High 70 - 100 mg/dL [facility] Glucose [Mass/Vol] 102 mg/dL High 70 - 100 mg/dL [facility] Magnesium [Mass/Vol] 2.1 mg/dL 1.6 - 2 .3 mg/dL [facility] Glucose [Mass/Vol] 117 mg/dL High 70 - 100 mg/dL [facility] Glucose [Mass/Vol] 105 mg/dL High 70 - 100 mg/dL [facility] Glucose [Mass/Vol] 109 mg/dL High 70 - 100 mg/dL [facility] Glucose [Mass/Vol] 109 mg/dL High 70 - 100 mg/dL [facility] Laboratory - Chemistry and C hemistry - challengeOrdered By: Janet Cobian on 02-03-2024 Base excess Calc (Bld) [Moles/Vol] -3.1000 mmol/L Low -3.0 - 3.0 mmol/L [facility] CO2 (Bld) [Partial pressure] 42.8 mm[Hg] - PINF [facility] CO2 [Moles/Vol] 23.8 mmol/L 23.0 - 27.0 mmol/L [facility] HCO3 (Bld) [Moles/Vol] 22.5 mmol/L 21.0 - 25.0 mmol/L [facility] Oxygen (Bld) [Partial pressure] 125.8 mm[Hg] High [facility] pH (Bld) 7.339 [pH] Low 7.350 - 7.450 [facility] h Laboratory - Coagulationon 0 02-03-2024 aPTT Coag (PPP) [Time] 27.1 s 20.0 - 30.5 s [facility] INR Coag (PPP) [Relative time] 1.1 {INR} 0.9 - 1.1 [facility] PT Coag (Bld) [Time] 11.8 s 9.0 - 12.0 s [facility] Laboratory - Hematology and Cell countsOrdered By: Janet Cobian on 02-03-2024 Hemoglobin (Bld) [Mass/Vol] 10.2 g/dL Screen only [facility] MAGNESIUMon 02-03-2024 Magnesium [Mass/Vol] 2.1 mg/dL Normal 1.6-2.3 [facility] Comment on above: Performed By: #### L AB15, [id number] ####Popcorn Vendor: SILVA REED ([phone])[address] Magnesium [Mass/Vol]on 02-02 Interpretation and review of laboratory results Normal [facility] No Panel Informationon 02-02 Interpretation and review of laboratory results Abnormal [facility] Interpretation and review of laboratory results Abnormal [facility] P [place] 0 degrees [facility] [place] Interval 194 ms [facility] QRS [place] -73 degrees [facility] QRSD Interval 162 ms [facility] QT Interval 501 ms [facility] QTC Interval 501 ms [facility] T Wave [place] 67 degrees [facility] CV [facility] Interpretation and review of laboratory results Abnormal [facility] Interpretation and review of laboratory results Abnormal [facility] Interpretation and review of laboratory results Abnormal [facility] Interpretation and review of laboratory results Normal [facility] Interpretation and review of laboratory results Abnormal [facility] Interpretation and review of laboratory results Abnormal [facility] Interpretation and review of laboratory results Abnormal [facility] Blood Expiration Date S [facility] Blood Expiration Date [id number] S [facility] Dispense Status Transfused [facility] Dispense Status Presumed Transfuse S [facility] Product Blood Type 6200 [facility] PRODUCT CODE [id number] [facility] PRODUCT CODE [id number] [facility] ABO A [facility] Unit Number [id number] [facility] Number [id number] [facility] RH Positive [facility] Volume 299 mL [facility] Volume 203 ml [facility] Interpretation and review of laboratory results Abnormal [facility] No Panel InformationOrdered By: Tereso Aguilera on 02-03-2024 P [place] 238 degrees [facility] Work Phone: [place] Interval 154 ms [facility] Work Phone: QRS [place] -85 degrees [facility] Work Phone: QRSD Interval 163 ms [facility]alt h Work Phone: QT Interval 510 ms [facility] Work Phone: QTC Interval 510 ms [facility] Work Phone: T Wave [place] 89 degrees [facility] Work Phone: [facility] Work Phone: No Panel InformationOrdered By: Janet Cobian on 02-03-2024 Interpretation and review of laboratory results Abnormal [facility] Of Oxygen 40% Oxygen [facility] ed [facility] PROTIME AND APTTon aPTT Coag (Bld) [Time] 27.1 s Normal 20.0-30.5 [facility] Comment on above: Performed By: #### L [id number] ####Popcorn Vendor: SILVA REED ([id number])[facility] [employer])[address] [place] [address] INR Coag (PPP) [Relative time] 1.1 {INR} Normal 0.9-1.1 [facility] Comment on above: Result Comment: Frank mmended Anticoagulant Therapy: SEE BELOW----- INR of 2.0 - 3.0 : - Prophylaxis of Venous Thrombosis (high-risk surgery) - Treatment of Venous Thrombosis - Treatment of Pulmonary Embolism (Includes tissue heart valves, Acute Myocardial Infarction to prevent systemic embolism, Valvular Heart Disease, and Atrial Fibrillation)----- INR of 2.5 - 3.5 : - Mechanical Prosthetic Valves (high risk) - If oral anticoagulant therapy is used to prevent Myocardial Infarction Performed By: #### L [id number] ####Popcorn Vendor: SILVA REED ([id number])[facility])[address] [place] [address] PT Coag (PPP) [Time] 11.8 s Normal 9.0-12.0 [facility] Comment on above: Performed By: #### L [id number] ####Popcorn Vendor: SILVA [id number])[facility] ([facility] [place] [address] [place] Progress Noteon 02-03-2024 Progress Note Normal [facility] Progress Note Normal [facility] Progress Note Normal [facility] Vital signsOrdered By: Antonina Aguilera on 02-03-2024 Heart rate 60 /min bpm [facility] Work Phone: Vital signson 02-03-2024 Heart rate 60 /min bpm [facility] XR CHEST 1 VIEWon 02-03-2024 XR CHEST 1 VIEW Normal [facility] XR Chest Single viewon 02-02 [facility] RADIOLOGY SYSTEM [facility] RADI[facility] Radiology Study observation (narrative) [facility] XR Chest Single viewOrdered By: Micah Garcia on 02-03-2024 [facility] Work Phone: [phone] 02-02-2024 [id number] Normal [facility] Anesthesia Noteon 02-02-2024 Anesthesia Note Normal [facility] BASIC METABOLIC PANELon 01-17 Anion gap [Moles/Vol] 7 mmol/L Normal 3-[address] [facility] Comment on above: Performed By: #### Gama AB113, LAB15, [id number] ####Popcorn Vendor: SILVA REED ([id number])[facility])[address] [place] [address] [place] Calcium [Mass/Vol] 8.7 mg/dL Normal 8.4-10.4 [facility] Comment on above: Performed By: #### Gama AB113, LAB15, [id number] ####Popcorn Vendor: SILVA REED ([id number])[facility] [place] [address] [place] Chloride [Moles/Vol] 110 mmol/L High 98-107 [facility] Comment on above: Performed By: #### L AB113, LAB15, [id number] ####Popcorn Vendor: SILVA REED ([id number])[facility] ([facility])[address] [place] [address] [place] CO2 [Moles/Vol] 21 mmol/L Low 22-30 [facility] Comment on above: Performed By: #### L AB113, LAB15, [id number] ####Popcorn Vendor: SILVA REED ([id number])[facility] ([facility])[address] [place] [address] Creatinine [Mass/Vol] 1.28 mg/dL High 0.66-1.[address] [facility] Comment on above: Performed By: #### L AB113, LAB15, [id number] ####Popcorn Vendor: SILVA REED ([id number])[facility] ([facility])[address] [place] [address] GLOMERULAR FILTRATION RATE ML/MIN/1.73 SQ M.PREDICTED 57.3 mL/min/1.73m*2 Low >60.0 [facility] Comment on above: Result Comment: Calc ulation based on the Chronic Kidney Disease Epidemiology Collaboration (CKD-EPI) equation refit without adjustment for race Performed By: #### Gama AB113, LAB15, [id number] ####Popcorn Vendor: SILVA REED ([id number])[facility])[address] [place] [address] Glucose [Mass/Vol] 138 mg/dL High 70-100 [facility] Comment on above: Performed By: #### L AB113, LAB15, [id number] ####Popcorn Vendor: SILVA REED ([id number])[facility] ([facility])[address] [place] [address] [place] Potassium [Moles/Vol] 4.5 mmol/L Normal 3.5-5.[address] [facility] Comment on above: Performed By: #### L AB113, LAB15, [id number] ####Popcorn Vendor: SILVA REED ([id number])[facility])[address] [place] [address] [place] Sodium [Moles/Vol] 138 mmol/L Normal 135-145 [facility] Comment on above: Performed By: #### L AB113, LAB15, [id number] ####Popcorn Vendor: SILVA REED ([id number])[facility] [place] [address] [place] Urea nitrogen [Mass/Vol] 20 mg/dL Normal 9-20 [facility] Comment on above: Performed By: #### L AB113, LAB15, [id number] ####Popcorn Vendor: SILVA REED ([id number])[facility] ([facility])[address] [place] [address] [facility] Anion gap [Moles/Vol] 9 mmol/L Normal 3-13 [facility] Comment on above: Performed By: #### L AB103, LAB15 ####Popcorn Vendor: SILVA REED ([id number])[facility] ([facility])[address] [place] [address] Calcium [Mass/Vol] 8.4 mg/dL Normal 8.4-10.4 [facility] Comment on above: Performed By: #### L AB103, LAB15 ####Popcorn Vendor: SILVA REED ([id number])[facility] ([facility])[address] [place] [address] [place] Chloride [Moles/Vol] 108 mmol/L High 98-107 [facility] Comment on above: Performed By: #### L AB103, LAB15 ####Popcorn Vendor: SILVA REED ([id number])[facility] ([facility])[address] [place] [address] [place] CO2 [Moles/Vol] 20 mmol/L Low 22-30 [facility] Comment on above: Performed By: #### L AB103, LAB15 ####Popcorn Vendor: SILVA REED ([id number])[facility] ([facility])[address] [place] [address] [place] Creatinine [Mass/Vol] 1.29 mg/dL High 0.66-1.25 [facility] Comment on above: Performed By: #### L AB103, LAB15 ####Popcorn Vendor: SILVA REED ([id number])[facility] ([facility])[address] [place] [address] [place] GLOMERULAR FILTRATION RATE ML/MIN/1.73 SQ M.PREDICTED 56.8 mL/min/1.73m*2 Low >60.0 [facility] Comment on above: Result Comment: Calc ulation based on the Chronic Kidney Disease Epidemiology Collaboration (CKD-EPI) equation refit without adjustment for race Performed By: #### L AB103, LAB15 ####Popcorn Vendor: SILVA REED ([id number])[facility])[address] [place] [address] Glucose [Mass/Vol] 131 mg/dL High 70-100 [facility] Comment on above: Performed By: #### L AB103, LAB15 ####Popcorn Vendor: SILVA REED ([id number])[facility])[address] [place] [address] Potassium [Moles/Vol] 4.2 mmol/L Normal 3.5-5.[address] [facility] Comment on above: Performed By: #### L AB103, LAB15 ####Popcorn Vendor: SILVA REED ([id number])[facility] ([facility])[address] [place] [address] Sodium [Moles/Vol] 137 mmol/L Normal 135-145 [facility] [facility] Comment on above: Performed By: #### L AB103, LAB15 ####Popcorn Vendor: SILVA REED ([phone])[facility])[address] [place] [address] Urea nitrogen [Mass/Vol] 18 mg/dL Normal 9-20 [facility] Comment on above: Performed By: #### L AB103, LAB15 ####Popcorn Vendor: SILVA REED ([id number])[facility])[address] [place] [address] [place] Anion gap [Moles/Vol] 5 mmol/L Normal 3-[address] [facility] Comment on above: Performed By: #### L AB113, LAB15, [id number] ####Popcorn Vendor: SILVA REED ([id number])[facility])[address] [place] [address] [place] Calcium [Mass/Vol] 8.4 mg/dL Normal 8.4-10.4 [facility] Comment on above: Performed By: #### L AB113, LAB15, [id number] ####Popcorn Vendor: SILVA REED ([id number])[facility])[address] [place] [address] Chloride [Moles/Vol] 109 mmol/L High 98-107 [facility] Comment on above: Performed By: #### L AB113, LAB15, [id number] ####Popcorn Vendor: SILVA REED ([id number])[facility] ([facility])[address] [place] [address] CO2 [Moles/Vol] 24 mmol/L Normal 22-30 [facility] Comment on above: Performed By: #### L AB113, LAB15, [id number] ####Popcorn Vendor: SILVA REED ([id number])[facility])[address] [place] [address] Creatinine [Mass/Vol] 1.32 mg/dL High 0.66-1.[address] [facility] Comment on above: Performed By: #### L AB113, LAB15, [id number] ####Popcorn Vendor: SILVA REED ([id number])[facility])[address] [place] [address] GLOMERULAR FILTRATION RATE ML/MIN/1.73 SQ M.PREDICTED 55.2 mL/min/1.73m*2 Low >60.0 [facility] Comment on above: Result Comment: Calc ulation based on the Chronic Kidney Disease Epidemiology Collaboration (CKD-EPI) equation refit without adjustment for race Performed By: #### L AB113, LAB15, [id number] ####Popcorn Vendor: SILVA REED ([id number])[facility] ([facility])[address] [place] [address] Glucose [Mass/Vol] 97 mg/dL Normal 70-100 [facility] Comment on above: Performed By: #### L AB113, LAB15, [id number] ####Popcorn Vendor: SILVA [id number])[facility])[address] [place] [address] Potassium [Moles/Vol] 4.2 mmol/L Normal 3.5-5.[address] [facility] Comment on above: Performed By: #### L AB113, LAB15, [id number] ####Popcorn Vendor: SILVA REED ([id number])[facility] [place] [address] Sodium [Moles/Vol] 138 mmol/L Normal 135-145 [facility] Comment on above: Performed By: #### L AB113, LAB15, [id number] ####Popcorn Vendor: SILVA REED ([id number])[facility] ([facility])[address] [place] [address] Urea nitrogen [Mass/Vol] 19 mg/dL Normal 9-20 [facility] Comment on above: Performed By: #### L AB113, LAB15, [id number] ####Popcorn Vendor: SILVA REED ([id number])[facility] ([facility])[address] [place] [address] BLOOD GAS ARTERIALon 024 Base excess Calc (Bld) [Moles/Vol] -1.3000 mmol/L Normal -3.0-3.0 [facility] Comment on above: Order Comment: 30 mi n after vent changes Performed By: #### L AB76 ####Popcorn Vendor: SILVA REED ([id number])[facility] ([facility])[address] [place] [address] CO2 [Moles/Vol] 25.6 mmol/L Normal 23.0-27.0 [facility] Comment on above: Order Comment: 30 mi n after vent changes Performed By: #### L AB76 ####Popcorn Vendor: SILVA REDE ([id number])[facility])[address] [place] [address] HCO3 (Bld) [Moles/Vol] 24.2 mmol/L Normal 21.0-25.0 [facility] Comment on above: Order Comment: 30 mi n after vent changes Performed By: #### L AB76 ####Popcorn Vendor: SILVA REED ([id number])[facility] [place] [address] Hemoglobin (Bld) [Mass/Vol] 8.6 g/dL Normal Screen only [facility] Comment on above: Order Comment: 30 mi n after vent changes Performed By: #### L AB76 ####Popcorn Vendor: SILVA REED ([id number])[facility] [place] [address] OXYGEN SATURATION (%) IN ARTERIAL BLOOD 98.0 % Normal 95.0-100.0 [facility] Comment on above: Order Comment: 30 mi n after vent changes Performed By: #### L AB76 ####Popcorn Vendor: SILVA REED ([id number])[facility] ([facility])[address] [place] [address] PCO2 ARTERIAL 44.6 mm Hg Normal >35.0-<45.0 [facility] Comment on above: Order Comment: 30 mi n after vent changes Performed By: #### L [id number] ####Popcorn Vendor: SILVA REED ([id number])[facility] ([facility])[address] [place] [address] PH ARTERIAL 7.353 Normal 7.350-7.450 [facility] Comment on above: Order Comment: 30 mi n after vent changes Performed By: #### L AB76 ####Popcorn Vendor: SILVA REED ([id number])[facility] [place] [address] PO2 ARTERIAL 135.0 mm Hg High 80.0-100.0 [facility] Comment on above: Order Comment: 30 mi n after vent changes Performed By: #### L AB76 ####Popcorn Vendor: SILVA REED ([id number])[facility] ([facility])[address] [place] [address] SOURCE OF OXYGEN 40% Oxygen Normal [facility] Comment on above: Order Comment: 30 mi n after vent changes Result Comment: NIV Performed By: #### L [id number] ####Popcorn Vendor: SILVA REED ([id number])[facility])[address] [place] [address] Base excess Calc (Bld) [Moles/Vol] -3.5000 mmol/L Low -3.0-3.0 [facility] Comment on above: Performed By: #### L AB76 ####Popcorn Vendor: SILVA REED ([id number])[facility] ([facility])[address] [place] [address] CO2 [Moles/Vol] 23.7 mmol/L Normal 23.0-27.0 [facility] Comment on above: Performed By: #### L AB76 ####Popcorn Vendor: SILVA REED ([id number])[facility] ([facility])[address] [place] [address] HCO3 (Bld) [Moles/Vol] 22.4 mmol/L Normal 21.0-25.0 [facility] Comment on above: Performed By: #### L AB76 ####Popcorn Vendor: SILVA REED ([id number])[facility] ([facility])[address] [place] [address] Hemoglobin (Bld) [Mass/Vol] 8.1 g/dL Normal Screen only [facility] Comment on above: Performed By: #### L AB76 ####Popcorn Vendor: SILVA REED ([id number])[facility] ([facility])[address] [place] [address] OXYGEN SATURATION (%) IN ARTERIAL BLOOD 98.1 % Normal 95.0-100.0 [facility] Comment on above: Performed By: #### L AB76 ####Popcorn Vendor: SILVA REED ([id number])[facility] ([facility])[address] [place] [address] PCO2 ARTERIAL 44.0 mm Hg Normal >35.0-<45.0 [facility] Comment on above: Performed By: #### L AB76 ####Popcorn Vendor: SILVA REED ([id number])[facility] ([facility])[address] [place] [address] [place] PH ARTERIAL 7.324 Low 7.350-7.450 [facility] Comment on above: Performed By: #### L AB76 ####Popcorn Vendor: SILVA REED ([id number])[facility] ([facility])[address] [place] [address] PO2 ARTERIAL 143.9 mm Hg High 80.0-100.0 [facility] Comment on above: Performed By: #### L [id number] ####Popcorn Vendor: SILVA REED ([id number])[facility] ([facility])[address] [place] [address] SOURCE OF OXYGEN Bi-PAP Normal [facility] Comment on above: Performed By: #### L AB76 ####Popcorn Vendor: SILVA REED ([id number])[facility] ([facility])[address] [place] [address] Base excess Calc (Bld) [Moles/Vol] -3.6000 mmol/L Low -3.0-3.0 [facility] Comment on above: Performed By: #### L AB76 ####Popcorn Vendor: SILVA REED ([id number])[facility] ([facility])[address] [place] [address] CO2 [Moles/Vol] 23.7 mmol/L Normal 23.0-27.0 [facility] Comment on above: Performed By: #### L [id number] ####Popcorn Vendor: SILVA REED ([id number])[facility] ([facility])[address] [place] [address] HCO3 (Bld) [Moles/Vol] 22.4 mmol/L Normal 21.0-25.0 [facility] Comment on above: Performed By: #### L AB76 ####Popcorn Vendor: SILVA REED ([id number])[facility] ([facility])[address] [place] [address] Hemoglobin (Bld) [Mass/Vol] 7.3 g/dL Normal Screen only [facility] Comment on above: Performed By: #### L [id number] ####Popcorn Vendor: SILVA REED ([id number])[facility] ([facility])[address] [place] [address] OXYGEN SATURATION (%) IN ARTERIAL BLOOD 98.2 % Normal 95.0-100.0 [facility] Comment on above: Performed By: #### L AB76 ####Popcorn Vendor: SILVA REED ([id number])[facility] ([facility])[address] [place] [address] PCO2 ARTERIAL 45.0 mm Hg High >35.0-<45.0 [facility] Comment on above: Performed By: #### L [id number] ####Popcorn Vendor: SILVA REED ([id number])[facility] ([facility])[address] [place] [address] PH ARTERIAL 7.314 Low 7.350-7.450 [facility] Comment on above: Performed By: #### L [id number] ####Popcorn Vendor: SILVA REED ([id number])[facility] ([facility])[address] [place] [address] PO2 ARTERIAL 132.4 mm Hg High 80.0-100.0 [facility] Comment on above: Performed By: #### L AB76 ####Popcorn Vendor: SILVA REED ([id number])[facility] ([facility])[address] [place] [address] SOURCE OF OXYGEN Vent Normal [facility] Comment on above: Performed By: #### L AB76 ####Popcorn Vendor: SILVA REED ([id number])[facility] ([facility])[address] [place] [address] [place] Base excess Calc (Bld) [Moles/Vol] -6.4000 mmol/L Low -3.0-3.0 [facility] Comment on above: Performed By: #### L [id number] ####Popcorn Vendor: SILVA REED ([id number])[facility] ([facility])[address] [place] [address] [place] CO2 [Moles/Vol] 21.5 mmol/L Low 23.0-27.0 [facility] Comment on above: Performed By: #### L [id number] ####Popcorn Vendor: SILVA REED ([id number])[facility] ([facility])[address] [place] [address] HCO3 (Bld) [Moles/Vol] 20.1 mmol/L Low 21.0-25.0 [facility] Comment on above: Performed By: #### L [id number] ####Popcorn Vendor: SILVA REED ([id number])[facility] ([facility])[address] [place] [address] Hemoglobin (Bld) [Mass/Vol] 6.6 g/dL Critically low Screen only [facility] Comment on above: Performed By: #### L [id number] ####Popcorn Vendor: SILVA REED ([id number])[facility])[address] [place] [address] OXYGEN SATURATION (%) IN ARTERIAL BLOOD 98.5 % Normal 95.0-100.0 [facility] Comment on above: Performed By: #### L AB76 ####Popcorn Vendor: SILVA REED ([id number])[facility] ([facility])[address] [place] [address] PCO2 ARTERIAL 46.0 mm Hg High >35.0-<45.0 [facility] Comment on above: Performed By: #### L AB76 ####Popcorn Vendor: SILVA REED ([id number])[facility] ([facility])[address] [place] [address] PH ARTERIAL 7.259 Low 7.350-7.450 [facility] Comment on above: Performed By: #### L AB76 ####Popcorn Vendor: SILVA REED ([id number])[facility])[address] [place] [address] PO2 ARTERIAL 228.3 mm Hg High 80.0-100.0 [facility] Comment on above: Performed By: #### L [id number] ####Popcorn Vendor: SILVA REED ([id number])[facility])[address] [place] [address] SOURCE OF OXYGEN Vent Normal [facility] Comment on above: Performed By: #### L AB76 ####Popcorn Vendor: SILVA REED ([id number])[facility] ([facility])[address] [place] [address] Base excess Calc (Bld) [Moles/Vol] -3.1000 mmol/L Low -3.0-3.0 [facility] Comment on above: Performed By: #### L AB76 ####Popcorn Vendor: SILVA REED ([id number])[facility] ([facility])[address] [place] [address] CO2 [Moles/Vol] 26.0 mmol/L Normal 23.0-27.0 [facility] Comment on above: Performed By: #### L AB76 ####Popcorn Vendor: SILVA REED ([id number])[facility] ([facility])[address] [place] [address] HCO3 (Bld) [Moles/Vol] 24.2 mmol/L Normal 21.0-25.0 [facility] Comment on above: Performed By: #### L AB76 ####Popcorn Vendor: SILVA REED ([id number])[facility] ([facility])[address] [place] [address] Hemoglobin (Bld) [Mass/Vol] 7.0 g/dL Normal Screen only [facility] Comment on above: Performed By: #### L AB76 ####Popcorn Vendor: SILVA REED ([id number])[facility] ([facility])[address] [place] [address] OXYGEN SATURATION (%) IN ARTERIAL BLOOD 98.7 % Normal 95.0-100.0 [facility] Comment on above: Performed By: #### L AB76 ####Popcorn Vendor: SILVA REED ([id number])[facility] ([facility])[address] [place] [address] PCO2 ARTERIAL 58.1 mm Hg High >35.0-<45.0 [facility] Comment on above: Performed By: #### L AB76 ####Popcorn Vendor: SILVA REED ([id number])[facility])[address] [place] [address] PH ARTERIAL 7.238 Low 7.350-7.450 [facility] Comment on above: Performed By: #### L AB76 ####Popcorn Vendor: SILVA REED ([id number])[facility])[address] [place] [address] PO2 ARTERIAL 392.7 mm Hg High 80.0-100.0 [facility] Comment on above: Performed By: #### L AB76 ####Popcorn Vendor: SILVA REED ([id number])[facility])[address] [place] [address] SOURCE OF OXYGEN ETT Normal [facility] Comment on above: Performed By: #### L AB76 ####Popcorn Vendor: SILVA REED ([id number])[facility])[address] [place] [address] Basic metabolic 1998 panelon 02-02-2024 Anion gap [Moles/Vol] 7 mmol/L 3 - 13 mmol/L [facility] Calcium [Mass/Vol] 8.7 mg/dL 8.4 - 10. 4 mg/dL [facility] Chloride [Moles/Vol] 110 mmol/L High 98 - 10 7 mmol/L [facility] CO2 [Moles/Vol] 21 mmol/L Low 22 - 30 mmol/L [facility] Creatinine [Mass/Vol] 1.28 mg/dL High 0.66 - 1.25 mg/dL [facility] GFR/1.73 sq M.predicted MDRD (S/P/Bld) [Vol rate/Area] 57.3 mL/min/{1.73_m2} Low - PINF [facility] Glucose [Mass/Vol] 138 mg/dL High 70 - 100 mg/dL [facility] Interpretation and review of laboratory results Abnormal [facility] Potassium [Moles/Vol] 4.5 mmol/L 3.5 - 5.1 mmol/L [facility] Sodium [Moles/Vol] 138 mmol/L 135 - 145 mmol/L [facility] Urea nitrogen [Mass/Vol] 20 mg/dL 9 - 20 mg/d L [facility] Anion gap [Moles/Vol] 9 mmol/L 3 - 13 mmol/L [facility] Calcium [Mass/Vol] 8.4 mg/dL 8.4 - 10. 4 mg/dL [facility] Chloride [Moles/Vol] 108 mmol/L High 98 - 10 7 mmol/L [facility] CO2 [Moles/Vol] 20 mmol/L Low 22 - 30 mmol/L [facility] Creatinine [Mass/Vol] 1.29 mg/dL High 0.66 - 1.25 mg/dL [facility] GFR/1.73 sq M.predicted MDRD (S/P/Bld) [Vol rate/Area] 56.8 mL/min/{1.73_m2} Low - PINF [facility] Glucose [Mass/Vol] 131 mg/dL High 70 - 100 mg/dL [facility] Interpretation and review of laboratory results Abnormal [facility] Potassium [Moles/Vol] 4.2 mmol/L 3.5 - 5.1 mmol/L [facility] Sodium [Moles/Vol] 137 mmol/L 135 - 145 mmol/L [facility] Urea nitrogen [Mass/Vol] 18 mg/dL 9 - 20 mg/d L [facility] Anion gap [Moles/Vol] 5 mmol/L 3 - 13 mmol/L [facility] Calcium [Mass/Vol] 8.4 mg/dL 8.4 - 10. 4 mg/dL [facility] Chloride [Moles/Vol] 109 mmol/L High 98 - 10 7 mmol/L [facility] CO2 [Moles/Vol] 24 mmol/L 22 - 30 mmol/L [facility] Creatinine [Mass/Vol] 1.32 mg/dL High 0.66 - 1.25 mg/dL [facility] GFR/1.73 sq M.predicted MDRD (S/P/Bld) [Vol rate/Area] 55.2 mL/min/{1.73_m2} Low - PINF [facility] Glucose [Mass/Vol] 97 mg/dL 70 - 100 mg/dL [facility] Potassium [Moles/Vol] 4.2 mmol/L 3.5 - 5.1 mmol/L [facility] Sodium [Moles/Vol] 138 mmol/L 135 - 145 mmol/L [facility] Urea nitrogen [Mass/Vol] 19 mg/dL 9 - 20 mg/d L [facility] CALCIUM, IONIZEDon 4 CALCIUM IONIZED 4.40 mg/dL Normal 4.30-5.20 [facility] Comment on above: Order Comment: Obtai n PRN and check ionized Ca level if serum Ca level less than 8.0 Performed By: #### L AB54 ####Popcorn Vendor: SILVA REED ([id number])[facility])[address] [place] [address] PH, IONIZED CALCIUM 7.38 Normal 7.31-7.46 [facility] Comment on above: Order Comment: Obtai n PRN and check ionized Ca level if serum Ca level less than 8.0 Performed By: #### L AB54 ####Popcorn Vendor: SILVA REED ([phone])[facility])[address] [place] [address] CALCIUM IONIZED 4.40 mg/dL Normal 4.30-5.20 [facility] Comment on above: Performed By: #### L AB54 ####Popcorn Vendor: SILVA REED ([id number])[facility])[address] [place] [address] PH, IONIZED CALCIUM 7.37 Normal 7.31-7.46 [facility] Comment on above: Performed By: #### L AB54 ####Popcorn Vendor: SILVA REED ([id number])[facility])[address] [place] [address] [place] CALCIUM IONIZED 4.70 mg/dL Normal 4.30-5.20 [facility] Comment on above: Performed By: #### L AB54 ####Popcorn Vendor: SILVA REED ([id number])[facility])[address] [place] [address] PH, IONIZED CALCIUM 7.25 Low 7.31-7.46 [facility] Comment on above: Performed By: #### L AB54 ####Popcorn Vendor: SILVA REED ([id number])[facility])[address] [place] [address] CBC (HEMOGRAM)on 02-02-2024 Erythrocyte distribution width (RBC) [Ratio] 15.9 % High 11.5-15.0 [facility] Comment on above: Performed By: #### L [id number] ####Popcorn Vendor: SILVA REED ([id number])[facility])[address] [place] [address] Hematocrit (Bld) [Volume fraction] 24.5 % Low 40.0-52.0 [facility] Comment on above: Performed By: #### L AB294 ####Popcorn Vendor: SILVA REED ([id number])[address] Hemoglobin (Bld) [Mass/Vol] 7.8 g/dL Low 13.0-18.0 [facility] Comment on above: Performed By: #### L [id number] ####Popcorn Vendor: SILVA REED ([id number])[facility])[address] [place] [address] MCH (RBC) [Entitic mass] 29.4 pg Normal 26.0-34.0 [facility] Comment on above: Performed By: #### L AB294 ####Popcorn Vendor: SILVA REED ([id number])[address] MCHC 31.8 % Normal 30.5-36.0 [facility] Comment on above: Performed By: #### L [id number] ####Popcorn Vendor: SILVA REED ([id number])[address] MCV (RBC) [Entitic vol] 92.5 fL Normal 77.0-99.0 [facility] Comment on above: Performed By: #### L AB294 ####Popcorn Vendor: SILVA REED ([id number])[facility])[address] [place] [address] Platelet mean volume (Bld) [Entitic vol] 10.4 fL Normal 9.0-12.7 [facility] Comment on above: Performed By: #### L AB294 ####Popcorn Vendor: SILVA REED ([id number])[facility])[address] [place] [address] Platelets (Bld) [#/Vol] 145 10*3/uL Normal 140-440 [facility] Comment on above: Performed By: #### L AB294 ####Popcorn Vendor: SILVA REED ([id number])[facility])[address] [place] [address] RBC (Bld) [#/Vol] 2.65 10*6/uL Low 4.40-5.90 [facility] Comment on above: Performed By: #### L [id number] ####Popcorn Vendor: SILVA REED ([id number])[facility] ([facility])[address] [place] [address] WBC (Bld) [#/Vol] 15.7 10*3/uL High 3.6-10.7 [facility] Comment on above: Performed By: #### L [id number] ####Popcorn Vendor: SILVA REED ([id number])[facility])[address] [place] [address] Erythrocyte distribution width (RBC) [Ratio] 15.5 % High 11.5-15.0 [facility] Comment on above: Performed By: #### L [id number] ####Popcorn Vendor: SILVA REED ([phone])[facility])[address] [place] [address] Hematocrit (Bld) [Volume fraction] 22.3 % Low 40.0-52.0 [facility] Comment on above: Performed By: #### L [id number] ####Popcorn Vendor: SILVA REED ([id number])[facility])[address] [place] [address] Hemoglobin (Bld) [Mass/Vol] 7.2 g/dL Low 13.0-18.0 [facility] Comment on above: Performed By: #### L [id number] ####Popcorn Vendor: SILVA REED ([id number])[facility] ([facility])[address] [place] [address] MCH (RBC) [Entitic mass] 30.5 pg Normal 26.0-34.0 [facility] Comment on above: Performed By: #### L [id number] ####Popcorn Vendor: SILVA REED ([id number])[facility])[address] [place] [address] MCHC 32.3 % Normal 30.5-36.0 [facility] Comment on above: Performed By: #### L [id number] ####Popcorn Vendor: SILVA REED ([id number])[facility])[address] [place] [address] MCV (RBC) [Entitic vol] 94.5 fL Normal 77.0-99.0 [facility] Comment on above: Performed By: #### L [id number] ####Popcorn Vendor: SILVA REED ([id number])[facility] ([facility])[address] [place] [address] Platelet mean volume (Bld) [Entitic vol] 10.3 fL Normal 9.0-12.7 [facility] Comment on above: Performed By: #### L [id number] ####Popcorn Vendor: SILVA REED ([id number])[facility] ([facility])[address] [place] [address] Platelets (Bld) [#/Vol] 150 10*3/uL Normal 140-440 [facility] Comment on above: Performed By: #### L [id number] ####Popcorn Vendor: SILVA REED ([id number])[facility])[address] [place] [address] RBC (Bld) [#/Vol] 2.36 10*6/uL Low 4.40-5.90 [facility] Comment on above: Performed By: #### L [id number] ####Popcorn Vendor: SILVA REED ([id number])[facility])[address] [place] [address] WBC (Bld) [#/Vol] 16.5 10*3/uL High 3.6-10.7 [facility] Comment on above: Performed By: #### L [id number] ####Popcorn Vendor: SILVA REED ([id number])[facility])[address] [place] [address] Erythrocyte distribution width (RBC) [Ratio] 15.3 % High 11.5-15.0 [facility] Comment on above: Performed By: #### L [id number] ####Popcorn Vendor: SILVA REED ([id number])[facility])[address] [place] [address] Hematocrit (Bld) [Volume fraction] 20.4 % Low 40.0-52.0 [facility] Comment on above: Performed By: #### L [id number] ####Popcorn Vendor: SILVA REED ([id number])[facility])[address] [place] [address] Hemoglobin (Bld) [Mass/Vol] 6.5 g/dL Critically low 13.0-18.0 [facility] Comment on above: Performed By: #### L [id number] ####Popcorn Vendor: SILVA REED ([id number])[facility])[address] [place] [address] MCH (RBC) [Entitic mass] 30.8 pg Normal 26.0-34.0 [facility] Comment on above: Performed By: #### L [id number] ####Popcorn Vendor: SILVA REED ([id number])[facility])[address] [place] [address] MCHC 31.9 % Normal 30.5-36.0 [facility] Comment on above: Performed By: #### L [id number] ####Popcorn Vendor: SILVA REED ([id number])[facility] ([facility])[address] [place] [address] MCV (RBC) [Entitic vol] 96.7 fL Normal 77.0-99.0 [facility] Comment on above: Performed By: #### L [id number] ####Popcorn Vendor: SILVA REED ([id number])[facility] ([facility])[address] [place] [address] Platelet mean volume (Bld) [Entitic vol] 10.1 fL Normal 9.0-12.7 [facility] Comment on above: Performed By: #### L [id number] ####Popcorn Vendor: SILVA REED ([id number])[facility] ([facility])[address] [place] [address] Platelets (Bld) [#/Vol] 156 10*3/uL Normal 140-440 [facility] Comment on above: Performed By: #### L [id number] ####Popcorn Vendor: SILVA REED ([id number])[facility] ([facility])[address] [place] [address] RBC (Bld) [#/Vol] 2.11 10*6/uL Low 4.40-5.90 [facility] Comment on above: Performed By: #### L [id number] ####Popcorn Vendor: SILVA REED ([id number])[facility])[address] [place] [address] WBC (Bld) [#/Vol] 11.9 10*3/uL High 3.6-10.7 [facility] Comment on above: Performed By: #### L [id number] ####Popcorn Vendor: SILVA REED ([id number])[facility])[address] [place] [address] CBC panel Auto (Bld)on 02-01 Erythrocyte distribution width (RBC) [Ratio] 15.9 % High 11.5 - 15.0 % [facility] Hematocrit (Bld) [Volume fraction] 24.5 % Low 40.0 - 52.0 % [facility] Hemoglobin (Bld) [Mass/Vol] 7.8 g/dL Low 13.0 - 18.0 g/dL [facility] Interpretation and review of laboratory results Abnormal [facility] MCH (RBC) [Entitic mass] 29.4 pg 26. 0 - 34.0 pg [facility] MCHC (RBC) [Mass/Vol] 31.8 % 30.5 - 36.0 % [facility] MCV (RBC) [Entitic vol] 92.5 fL 77.0 - 99.0 fL [facility] Platelet mean volume (Bld) [Entitic vol] 10.4 fL 9.0 - 12.7 fL [facility] Platelets (Bld) [#/Vol] 145 10*3/uL 140 - 440 10*3/uL [facility] RBC (Bld) [#/Vol] 2.65 10*6/uL Low 4.40 - 5.9 0 10*6/uL [facility] WBC (Bld) [#/Vol] 15.7 10*3/uL High 3.6 - 10.7 10*3/uL [facility] Erythrocyte distribution width (RBC) [Ratio] 15.5 % High 11.5 - 15.0 % [facility] Hematocrit (Bld) [Volume fraction] 22.3 % Low 40.0 - 52.0 % [facility] Hemoglobin (Bld) [Mass/Vol] 7.2 g/dL Low 13.0 - 18.0 g/dL [facility] Interpretation and review of laboratory results Abnormal [facility] MCH (RBC) [Entitic mass] 30.5 pg 26. 0 - 34.0 pg [facility] MCHC (RBC) [Mass/Vol] 32.3 % 30.5 - 36.0 % [facility] MCV (RBC) [Entitic vol] 94.5 fL 77.0 - 99.0 fL [facility] Platelet mean volume (Bld) [Entitic vol] 10.3 fL 9.0 - 12.7 fL [facility] Platelets (Bld) [#/Vol] 150 10*3/uL 140 - 440 10*3/uL [facility] RBC (Bld) [#/Vol] 2.36 10*6/uL Low 4.40 - 5.9 0 10*6/uL [facility] WBC (Bld) [#/Vol] 16.5 10*3/uL High 3.6 - 10.7 10*3/uL [facility] CBC panel Auto (Bld)Ordered By: Tim Ponce on 02-02-2024 Erythrocyte distribution width (RBC) [Ratio] 15.3 % High 11.5 - 15.0 % [facility] Hematocrit (Bld) [Volume fraction] 20.4 % Low 40.0 - 52.0 % [facility] Hemoglobin (Bld) [Mass/Vol] 6.5 g/dL Critically low 13.0 - 18.0 g/dL [facility] Interpretation and review of laboratory results Abnormal [facility] MCH (RBC) [Entitic mass] 30.8 pg 26. 0 - 34.0 pg [facility] MCHC (RBC) [Mass/Vol] 31.9 % 30.5 - 36.0 % [facility] MCV (RBC) [Entitic vol] 96.7 fL 77.0 - 99.0 fL [facility] Platelet mean volume (Bld) [Entitic vol] 10.1 fL 9.0 - 12.7 fL [facility] Platelets (Bld) [#/Vol] 156 10*3/uL 140 - 440 10*3/uL [facility] RBC (Bld) [#/Vol] 2.11 10*6/uL Low 4.40 - 5.9 0 10*6/uL [facility] WBC (Bld) [#/Vol] 11.9 10*3/uL High 3.6 - 10.7 10*3/uL [facility] Calcium.ionized [Moles/Vol]o n 02-02-2024 Calcium.ionized (Bld) [Moles/Vol] 4.40 mg/dL 4.30 - 5.20 mg/dL [facility] Interpretation and review of laboratory results Normal [facility] PH, IONIZED CALCIUM 7.38 7.31 - 7.46 [facility] Calcium.ionized (Bld) [Moles/Vol] 4.40 mg/dL 4.30 - 5.20 mg/dL [facility] Interpretation and review of laboratory results Normal [facility] PH, IONIZED CALCIUM 7.37 7.31 - 7.46 [facility] Calcium.ionized (Bld) [Moles/Vol] 4.70 mg/dL 4.30 - 5.20 mg/dL [facility] Interpretation and review of laboratory results Abnormal [facility] PH, IONIZED CALCIUM 7.25 Low 7.31 - 7.46 [facility] Consulton 02-02-2024 Consult Normal [facility] Consult Normal [facility] Consult Normal [facility] FIBRINOGENon 02-02-2024 FIBRINOGEN 226 mg/dL Normal 200-400 [facility] Comment on above: Performed By: #### L [id number], [id number] ####Popcorn Vendor: SILVA REED ([id number])[facility] ([facility])[address] [place] [address] FIBRINOGEN 175 mg/dL Low 200-400 [facility] Comment on above: Performed By: #### L [id number], [id number] ####Popcorn Vendor: SILVA REED ([id number])[facility] ([facility])[address] [place] [address] FIBRINOGEN 173 mg/dL Low 200-400 [facility] Comment on above: Performed By: #### L [id number], [id number] ####Popcorn Vendor: SILVA REED ([id number])[facility] ([facility])[address] [place] [address] Fibrinogen Coag (PPP) [Mass/ Vol]on 02-02-2024 Interpretation and review of laboratory results Abnormal [facility] Interpretation and review of laboratory results Abnormal [facility] HEMOGLOBIN AND HEMATOCRIT, B LOODon 02-02-2024 Hematocrit (Bld) [Volume fraction] 22.2 % Low 40.0-52.0 [facility] Comment on above: Order Comment: Recom mend 1 hour post transfusion Performed By: #### L [id number] ####Popcorn Vendor: SILVA REED ([id number])[facility] ([facility])[address] [place] [address] Hemoglobin (Bld) [Mass/Vol] 7.1 g/dL Low 13.0-18.0 [facility] Comment on above: Order Comment: Recom mend 1 hour post transfusion Performed By: #### L [id number] ####Popcorn Vendor: SILVA REED ([id number])[address] Hemoglobin (Bld) [Mass/Vol]O rdered By: Yessica Patel on 02-02-2024 Hematocrit (Bld) [Volume fraction] 22.2 % Low 40.0 - 52.0 % [facility] Interpretation and review of laboratory results Abnormal [facility] IDNon 02-02-2024 IDN The patient is Moderately Unstable - Medium risk of patient condition declining or worsening Normal [facility] Laboratory - Chemistry and C hemistry - challengeon 02-02-2024 Glucose [Mass/Vol] 121 mg/dL High 70 - 100 mg/dL [facility] Glucose [Mass/Vol] 118 mg/dL High 70 - 100 mg/dL [facility] Glucose [Mass/Vol] 131 mg/dL High 70 - 100 mg/dL [facility] Glucose [Mass/Vol] 131 mg/dL High 70 - 100 mg/dL [facility] Magnesium [Mass/Vol] 2.2 mg/dL 1.6 - 2 .3 mg/dL [facility] Glucose [Mass/Vol] 138 mg/dL High 70 - 100 mg/dL [facility] Glucose [Mass/Vol] 149 mg/dL High 70 - 100 mg/dL [facility] Glucose [Mass/Vol] 143 mg/dL High 70 - 100 mg/dL [facility] Glucose [Mass/Vol] 140 mg/dL High 70 - 100 mg/dL [facility] Glucose [Mass/Vol] 134 mg/dL High 70 - 100 mg/dL [facility] Magnesium [Mass/Vol] 2.3 mg/dL 1.6 - 2 .3 mg/dL [facility] Base excess Calc (Bld) [Moles/Vol] -3.6000 mmol/L Low -3.0 - 3.0 mmol/L [facility] CO2 (Bld) [Partial pressure] 45.0 mm[Hg] High - PINF [facility] CO2 [Moles/Vol] 23.7 mmol/L 23.0 - 27.0 mmol/L [facility] HCO3 (Bld) [Moles/Vol] 22.4 mmol/L 21.0 - 25.0 mmol/L [facility] Oxygen (Bld) [Partial pressure] 132.4 mm[Hg] High [facility] pH (Bld) 7.314 [pH] Low 7.350 - 7.450 [facility] Glucose [Mass/Vol] 121 mg/dL High 70 - 100 mg/dL [facility] Glucose [Mass/Vol] 112 mg/dL High 70 - 100 mg/dL [facility] Magnesium [Mass/Vol] 2.9 mg/dL High 1.6 - 2 .3 mg/dL [facility] Glucose [Mass/Vol] 105 mg/dL High 70 - 100 mg/dL [facility] Laboratory - Chemistry and C hemistry - challengeOrdered By: Kimberly Willoughby on 02-02-2024 Base excess Calc (Bld) [Moles/Vol] -1.3000 mmol/L -3.0 - 3.0 mmol/L [facility] CO2 (Bld) [Partial pressure] 44.6 mm[Hg] - PINF [facility] CO2 [Moles/Vol] 25.6 mmol/L 23.0 - 27.0 mmol/L [facility] HCO3 (Bld) [Moles/Vol] 24.2 mmol/L 21.0 - 25.0 mmol/L [facility] Oxygen (Bld) [Partial pressure] 135.0 mm[Hg] High [facility] pH (Bld) 7.353 [pH] 7.350 - 7.450 [facility] Laboratory - Chemistry and C hemistry - challengeOrdered By: Antoinette Hermosillo on 02-02-2024 Base excess Calc (Bld) [Moles/Vol] -3.5000 mmol/L Low -3.0 - 3.0 mmol/L [facility] CO2 (Bld) [Partial pressure] 44.0 mm[Hg] - PINF [facility] CO2 [Moles/Vol] 23.7 mmol/L 23.0 - 27.0 mmol/L [facility] HCO3 (Bld) [Moles/Vol] 22.4 mmol/L 21.0 - 25.0 mmol/L [facility] Oxygen (Bld) [Partial pressure] 143.9 mm[Hg] High [facility] pH (Bld) 7.324 [pH] Low 7.350 - 7.450 [facility] Laboratory - Chemistry and C hemistry - challengeOrdered By: Nuno Logan on 02-02-2024 Base excess Calc (Bld) [Moles/Vol] -6.4000 mmol/L Low -3.0 - 3.0 mmol/L [facility] CO2 (Bld) [Partial pressure] 46.0 mm[Hg] High - PINF [facility] CO2 [Moles/Vol] 21.5 mmol/L Low 23.0 - 27.0 mmol/L [facility] HCO3 (Bld) [Moles/Vol] 20.1 mmol/L Low 21.0 - 25.0 mmol/L [facility] Oxygen (Bld) [Partial pressure] 228.3 mm[Hg] High [facility] pH (Bld) 7.259 [pH] Low 7.350 - 7.450 [facility] Laboratory - Chemistry and C hemistry - challengeOrdered By: Clara Gastelum on 02-02-2024 Base excess Calc (Bld) [Moles/Vol] -3.1000 mmol/L Low -3.0 - 3.0 mmol/L [facility] CO2 (Bld) [Partial pressure] 58.1 mm[Hg] High - PINF [facility] CO2 [Moles/Vol] 26.0 mmol/L 23.0 - 27.0 mmol/L [facility] HCO3 (Bld) [Moles/Vol] 24.2 mmol/L 21.0 - 25.0 mmol/L [facility] Oxygen (Bld) [Partial pressure] 392.7 mm[Hg] High [facility] pH (Bld) 7.238 [pH] Low 7.350 - 7.450 [facility] Laboratory - Coagulationon 0 02-02-2024 aPTT Coag (PPP) [Time] 27.6 s 20.0 - 30.5 s [facility] Fibrinogen Coag (PPP) [Mass/Vol] 226 mg/dL 200 - 400 mg/dL [facility] INR Coag (PPP) [Relative time] 1.1 {INR} 0.9 - 1.1 [facility] PT Coag (Bld) [Time] 11.9 s 9.0 - 12.0 s [facility] Fibrinogen Coag (PPP) [Mass/Vol] 175 mg/dL Low 200 - 400 mg/dL [facility] aPTT Coag (PPP) [Time] 29.3 s 20.0 - 30.5 s [facility] INR Coag (PPP) [Relative time] 1.2 {INR} High 0.9 - 1.1 [facility] PT Coag (Bld) [Time] 13.2 s High 9.0 - 12.0 s [facility] Fibrinogen Coag (PPP) [Mass/Vol] 173 mg/dL Low 200 - 400 mg/dL [facility] aPTT Coag (PPP) [Time] 27.6 s 20.0 - 30.5 s [facility] INR Coag (PPP) [Relative time] 1.4 {INR} High 0.9 - 1.1 [facility] PT Coag (Bld) [Time] 14.6 s High 9.0 - 12.0 s [facility] Laboratory - Hematology and Cell countsOrdered By: Kimberly Willoughby on 02-02-2024 Hemoglobin (Bld) [Mass/Vol] 8.6 g/dL Screen only [facility] Laboratory - Hematology and Cell countsOrdered By: Yessica Patel on 02-02-2024 Hemoglobin (Bld) [Mass/Vol] 7.1 g/dL Low 13.0 - 18.0 g/dL [facility] Laboratory - Hematology and Cell countsOrdered By: Antoinette Hermosillo on 02-02-2024 Hemoglobin (Bld) [Mass/Vol] 8.1 g/dL Screen only [facility] Laboratory - Hematology and Cell countson 02-02-2024 Hemoglobin (Bld) [Mass/Vol] 7.3 g/dL Screen only [facility] Laboratory - Hematology and Cell countsOrdered By: Nuno Logan on 02-02-2024 Hemoglobin (Bld) [Mass/Vol] 6.6 g/dL Critically low Screen only [facility] Laboratory - Hematology and Cell countsOrdered By: Clara Gastelum on 02-02-2024 Hemoglobin (Bld) [Mass/Vol] 7.0 g/dL Screen only [facility] MAGNESIUMon 02-02-2024 Magnesium [Mass/Vol] 2.2 mg/dL Normal 1.6-2.3 [facility] Comment on above: Performed By: #### L [id number], [id number], [id number] ####Popcorn Vendor: SILVA REED ([id number])[facility] ([facility])[address] Magnesium [Mass/Vol] 2.3 mg/dL Normal 1.6-2.3 [facility] Comment on above: Performed By: #### L [id number], LAB15 ####Popcorn Vendor: SILVA REED ([id number])[facility])[address] Magnesium [Mass/Vol] 2.9 mg/dL High 1.6-2.3 [facility] Comment on above: Performed By: #### L [id number], LAB15, [id number] ####Popcorn Vendor: SILVA REED ([id number])[facility] [place] [address] Magnesium [Mass/Vol]on 02-01 Interpretation and review of laboratory results Normal [facility] No Panel Informationon 02-01 Interpretation and review of laboratory results Normal [facility] Interpretation and review of laboratory results Abnormal [facility] Interpretation and review of laboratory results Abnormal [facility] Interpretation and review of laboratory results Abnormal [facility] Interpretation and review of laboratory results Abnormal [facility] Interpretation and review of laboratory results Normal [facility] Interpretation and review of laboratory results Abnormal [facility] Interpretation and review of laboratory results Abnormal [facility] Interpretation and review of laboratory results Abnormal [facility] Interpretation and review of laboratory results Abnormal [facility] Interpretation and review of laboratory results Abnormal [facility] Interpretation and review of laboratory results Abnormal [facility] Interpretation and review of laboratory results Abnormal [facility] Source Of Oxygen Vent [facility] Interpretation and review of laboratory results Abnormal [facility] Interpretation and review of laboratory results Abnormal [facility] Interpretation and review of laboratory results Abnormal [facility] Interpretation and review of laboratory results Abnormal [facility] Interpretation and review of laboratory results Abnormal [facility] Blood Expiration Date [id number] S [facility] Dispense Status Transfused [facility] Product Blood Type 8400 [facility] PRODUCT CODE [id number] [facility] Unit ABO AB [facility] Unit Number [id number] [facility] RH Positive [facility] Unit Volume 300 mL [facility] No Panel InformationOrdered By: Kimberly Willoughby on 02-02-2024 Interpretation and review of laboratory results Abnormal [facility] Source Of Oxygen 40% Oxygen [facility] Ramez [facility] No Panel InformationOrdered By: Antoinette Hermosillo on 02-02-2024 Interpretation and review of laboratory results Abnormal [facility] Source Of Oxygen Bi-PAP [facility] Ramez ward [facility] No Panel InformationOrdered By: Nuno Logan on 02-02-2024 Interpretation and review of laboratory results Abnormal [facility] Source Of Oxygen Vent [facility] No Panel InformationOrdered By: Clara Gastelum on 02-02-2024 Interpretation and review of laboratory results Abnormal [facility] Source Of Oxygen ETT [facility] Op Noteon 02-02-2024 Op Note Normal [facility] PHOSPHORUSon 02-02-2024 Phosphate [Mass/Vol] 3.5 mg/dL Normal 2.5-4.5 [facility] Comment on above: Performed By: #### L [id number], LAB15, [id number] ####Popcorn Vendor: SILVA REED ([id number])[address] Phosphate [Mass/Vol] 4.0 mg/dL Normal 2.5-4.5 [facility] Comment on above: Performed By: #### L AB113, LAB15, [id number] ####Popcorn Vendor: SILVA REED ([id number])[address] PROTIME AND APTTon aPTT Coag (Bld) [Time] 27.6 s Normal 20.0-30.5 [facility] Comment on above: Performed By: #### L [id number], [id number] ####Popcorn Vendor: SILVA REED ([phone])[facility])[address] [place] [address] INR Coag (PPP) [Relative time] 1.1 {INR} Normal 0.9-1.1 [facility] Comment on above: Result Comment: Frank mmended Anticoagulant Therapy: SEE BELOW----- INR of 2.0 - 3.0 : - Prophylaxis of Venous Thrombosis (high-risk surgery) - Treatment of Venous Thrombosis - Treatment of Pulmonary Embolism (Includes tissue heart valves, Acute Myocardial Infarction to prevent systemic embolism, Valvular Heart Disease, and Atrial Fibrillation)----- INR of 2.5 - 3.5 : - Mechanical Prosthetic Valves (high risk) - If oral anticoagulant therapy is used to prevent Myocardial Infarction Performed By: #### Gama [id number], [id number] ####Popcorn Vendor: SILVA REED ([id number])[facility])[address] [place] [address] PT Coag (PPP) [Time] 11.9 s Normal 9.0-12.0 [facility] Comment on above: Performed By: #### Gama [id number], [id number] ####Popcorn Vendor: SILVA REED ([phone])[facility])[address] [place] [address] aPTT Coag (Bld) [Time] 29.3 s Normal 20.0-30.5 [facility] Comment on above: Performed By: #### [place] [id number], [id number] ####Popcorn Vendor: SILVA REED ([id number])[facility])[address] [place] [address] INR Coag (PPP) [Relative time] 1.2 {INR} High 0.9-1.1 [facility] Comment on above: Result Comment: Frank mmended Anticoagulant Therapy: SEE BELOW----- INR of 2.0 - 3.0 : - Prophylaxis of Venous Thrombosis (high-risk surgery) - Treatment of Venous Thrombosis - Treatment of Pulmonary Embolism (Includes tissue heart valves, Acute Myocardial Infarction to prevent systemic embolism, Valvular Heart Disease, and Atrial Fibrillation)----- INR of 2.5 - 3.5 : - Mechanical Prosthetic Valves (high risk) - If oral anticoagulant therapy is used to prevent Myocardial Infarction Performed By: #### L [id number], [id number] ####Popcorn Vendor: SILVA REED ([id number])[facility])[address] [place] [address] PT Coag (PPP) [Time] 13.2 s High 9.0-12.0 [facility] Comment on above: Performed By: #### L [id number], [id number] ####Popcorn Vendor: SILVA REED ([id number])[facility])[address] [place] [address] aPTT Coag (Bld) [Time] 27.6 s Normal 20.0-30.5 [facility] Comment on above: Performed By: #### L [id number], [id number] ####Popcorn Vendor: SILVA [id number])[facility])[address] [place] [address] INR Coag (PPP) [Relative time] 1.4 {INR} High 0.9-1.1 [facility] Comment on above: Result Comment: Frank mmended Anticoagulant Therapy: SEE BELOW----- INR of 2.0 - 3.0 : - Prophylaxis of Venous Thrombosis (high-risk surgery) - Treatment of Venous Thrombosis - Treatment of Pulmonary Embolism (Includes tissue heart valves, Acute Myocardial Infarction to prevent systemic embolism, Valvular Heart Disease, and Atrial Fibrillation)----- INR of 2.5 - 3.5 : - Mechanical Prosthetic Valves (high risk) - If oral anticoagulant therapy is used to prevent Myocardial Infarction Performed By: #### L [id number], [id number] ####Popcorn Vendor: SILVA REED ([id number])[facility])[address] [place] [address] PT Coag (PPP) [Time] 14.6 s High 9.0-12.0 [facility] Comment on above: Performed By: #### L [id number], [id number] ####Popcorn Vendor: SILVA [id number])[facility] ([facility])[address] [place] [address] Phosphate [Moles/Vol]on 01-17 Phosphate [Mass/Vol] 3.5 mg/dL 2.5 - 4 .5 mg/dL [facility] Interpretation and review of laboratory results Normal [facility] Phosphate [Mass/Vol] 4.0 mg/dL 2.5 - 4 .5 mg/dL [facility] Progress Noteon 02-02-2024 Progress Note Pt extubated to NIV medium mask. Pt verbalized name post extubation. Settings per MD orders. Will continue care. Normal [facility] Progress Note Normal [facility] Progress Note Normal [facility] Progress Note Increased rate to 18 per MD due to ABG results. Normal [facility] US Heart Transesophagealon 0 02-02-2024 CV CPACS HEMO [facility] XR ABDOMEN 1 VIEWon 02-02-20 24 XR ABDOMEN 1 VIEW Normal [facility]domen Single viewon [facility] Radiology Study observation (narrative) [facility] CHEST 1 VIEWon 02-02-2024 XR CHEST 1 VIEW Normal [facility] XR Chest Single viewon 02-01 [facility] RADIOLOGY [facility] Radiology Study observation (narrative) [facility] Chest Single viewOrdered By: Jesusita Maldonado on 02-02-2024 [facility] Work Phone: XR CHEST 2 VIEWSon 4 XR CHEST 2 VIEWS Normal [facility] 36on 01-28-2024 36 Pt notified Normal [facility] 36 Labs reviewed, shows + UA. Will send in script for Cipro. Please notify patient. Dr. Vargas notified of Creatinine. 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 Normal [facility] ECG 12-LEADon 01-28-2024 ECG 12-LEAD IMPRESSION: A-V dual-paced rhythm with some inhibition Electronically Signed On 01-28-2024 10:47:07 EDT by Dave Parkinson Normal [facility] Anesthesia Noteon 01-26-2024 Anesthesia Note Normal [facility] BLOOD TYPE AND SCREEN GELon 01-26-2024 ABO GROUPING A Normal [facility] Comment on above: Performed By: #### L [id number] ####Popcorn Vendor: SILVA REED ([id number])[facility] ([facility])[address] [place] [address] RH TYPE IN BLOOD Positive Normal [facility] Comment on above: Performed By: #### L [id number] ####Popcorn Vendor: SILVA REED ([id number])[facility] ([facility])[address] [place] [address] CBC (HEMOGRAM)on 01-26-2024 Erythrocyte distribution width (RBC) [Ratio] 14.9 % Normal 11.5-15.0 [facility] Comment on above: Performed By: #### L [id number] ####Popcorn Vendor: SILVA REED ([id number])[facility] ([facility])[address] [place] [address] Hematocrit (Bld) [Volume fraction] 35.3 % Low 40.0-52.0 [facility] Comment on above: Performed By: #### L [id number] ####Popcorn Vendor: SILVA REED ([id number])[facility] ([facility])[address] [place] [address] Hemoglobin (Bld) [Mass/Vol] 11.2 g/dL Low 13.0-18.0 [facility] Comment on above: Performed By: #### L [id number] ####Popcorn Vendor: SILVA REED ([id number])[facility] ([facility])[address] [place] [address] MCH (RBC) [Entitic mass] 30.2 pg Normal 26.0-34.0 [facility] Comment on above: Performed By: #### L [id number] ####Popcorn Vendor: SILVA REED ([id number])[facility] ([facility])[address] [place] [address] MCHC 31.7 % Normal 30.5-36.0 [facility] Comment on above: Performed By: #### L [id number] ####Popcorn Vendor: SILVA REED ([id number])[facility])[address] [place] [address] MCV (RBC) [Entitic vol] 95.1 fL Normal 77.0-99.0 [facility] Comment on above: Performed By: #### L [id number] ####Popcorn Vendor: SILVA REED ([id number])[facility] ([facility])[address] [place] [address] Platelet mean volume (Bld) [Entitic vol] 10.8 fL Normal 9.0-12.7 [facility] Comment on above: Performed By: #### L [id number] ####Popcorn Vendor: SILVA REED ([id number])[facility] ([facility])[address] [place] [address] Platelets (Bld) [#/Vol] 268 10*3/uL Normal 140-440 [facility] Comment on above: Performed By: #### L [id number] ####Popcorn Vendor: SILVA REED ([id number])[facility])[address] [place] [address] RBC (Bld) [#/Vol] 3.71 10*6/uL Low 4.40-5.90 [facility] Comment on above: Performed By: #### L [id number] ####Popcorn Vendor: SILVA REED ([id number])[facility])[address] [place] [address] WBC (Bld) [#/Vol] 8.8 10*3/uL Normal 3.6-10.7 [facility] Comment on above: Performed By: #### L [id number] ####Popcorn Vendor: SILVA REED ([id number])[facility])[address] [place] [address] COMPLETE URINALYSISon 2023 BACTERIA (#/HPF) IN URINE Few Abnormal Negative [facility] Comment on above: Performed By: #### L [id number] ####Popcorn Vendor: SILVA REED ([id number])[facility])[address] [place] [address] BILIRUBIN, TOTAL PRESENCE IN URINE Negative Normal Negative [facility] Comment on above: Performed By: #### L [id number] ####Popcorn Vendor: SILVA REED ([id number])[facility])[address] [place] [address] Clarity (U) Clear Normal Clear [facility] Comment on above: Performed By: #### L [id number] ####Popcorn Vendor: SILVA REED ([id number])[facility])[address] [place] [address] Color (U) Yellow Normal Lt. Yellow [facility] Comment on above: Performed By: #### L [id number] ####Popcorn Vendor: SILVA REED ([id number])[facility])[address] [place] [address] GLUCOSE (MG/DL) IN URINE Normal Normal Normal (<70 ) [facility] Comment on above: Performed By: #### L [id number] ####Popcorn Vendor: SILVA REED ([id number])[facility])[address] [place] [address] HEMOGLOBIN PRESENCE IN URINE Negative Normal Negative [facility] Comment on above: Performed By: #### L [id number] ####Popcorn Vendor: SILVA REED ([id number])[facility])[address] [place] [address] HYALINE CASTS (#/LPF) IN URINE SEDIMENT BY MICROSCOPY Negative Normal Negative [facility] Comment on above: Performed By: #### L [id number] ####Popcorn Vendor: SILVA REED ([id number])[facility])[address] [place] [address] Ketones Ql (U) Negative Normal Negative [facility] Comment on above: Performed By: #### L [id number] ####Popcorn Vendor: SILVA REED ([id number])[facility] ([facility])[address] [place] [address] LEUKOCYTE ESTERASE PRESENCE IN URINE BY TEST STRIP 250 Cristela/uL Abnormal Negative [facility] Comment on above: Performed By: #### L [id number] ####Popcorn Vendor: SILVA REED ([id number])[facility] ([facility])[address] [place] [address] MUCUS (#/LPF) IN URINE SEDIMENT Few Normal Negative [facility] Comment on above: Performed By: #### L [id number] ####Popcorn Vendor: SILVA REED ([id number])[facility] ([facility])[address] [place] [address] NITRITE PRESENCE IN URINE Negative Normal Negative [facility] Comment on above: Performed By: #### L [id number] ####Popcorn Vendor: SILVA REED ([id number])[facility] ([facility])[address] [place] [address] pH (U) 5.5 [pH] Normal 5.0-8.0 [facility] Comment on above: Performed By: #### L [id number] ####Popcorn Vendor: SILVA REED ([id number])[facility] ([facility])[address] [place] [address] Protein (U) [Mass/Vol] 20 mg/dL Abnormal Negative [facility] Comment on above: Performed By: #### L [id number] ####Popcorn Vendor: SILVA REED ([id number])[facility] ([facility])[address] [place] [address] RBC (#/HPF) IN URINE SEDIMENT 3-5 Abnormal 0-2 [facility] Comment on above: Performed By: #### L [id number] ####Popcorn Vendor: SILVA REED ([id number])[facility])[address] [place] [address] Specific gravity (U) [Rel density] 1.027 Normal 1.005-1.030 [facility] Comment on above: Performed By: #### L [id number] ####Popcorn Vendor: SILVA REED ([id number])[facility] ([facility])[address] [place] [address] SQUAMOUS EPITHELIAL CELLS (#/HPF) IN URINE SEDIMENT 0-2 Normal 3-5 [facility] Comment on above: Performed By: #### L [id number] ####Popcorn Vendor: SILVA REED ([id number])[facility] ([facility])[address] [place] [address] UROBILINOGEN (MG/DL) IN URINE 3 mg/dL Abnormal Normal (0-1) [facility] Comment on above: Performed By: #### L [id number] ####Popcorn Vendor: SILVA REED ([id number])[facility])[address] [place] [address] WBC (LEUKOCYTE) (#/HPF) IN URINE SEDIMENT 11-25 Abnormal 0-5 [facility] Comment on above: Performed By: #### L [id number] ####Popcorn Vendor: SILVA REED ([id number])[facility] ([facility])[address] [place] [address] COMPREHENSIVE METABOLIC PANE Luis Eduardo 01-26-2024 Albumin [Mass/Vol] 4.0 g/dL Normal 3.5-5.0 [facility] Comment on above: Performed By: #### L [id number] ####Popcorn Vendor: SILVA REED ([id number])[facility] ([facility])[address] [place] [address] ALP [Catalytic activity/Vol] 79 U/L Normal 38-126 [facility] Comment on above: Performed By: #### L [id number] ####Popcorn Vendor: SILVA REED ([id number])[facility] ([facility])[address] [place] [address] ALT [Catalytic activity/Vol] 10 U/L Normal 0-49 [facility] Comment on above: Performed By: #### L [id number] ####Popcorn Vendor: SILVA REED ([id number])[facility] ([facility])[address] [place] [address] Anion gap [Moles/Vol] 9 mmol/L Normal 3-[address] [facility] Comment on above: Performed By: #### L AB17 ####Popcorn Vendor: SILVA REED ([id number])[facility] ([facility])[address] [place] [address] AST [Catalytic activity/Vol] 19 U/L Normal 15-46 [facility] Comment on above: Performed By: #### L [id number] ####Popcorn Vendor: SILVA REED ([id number])[facility] ([facility])[address] [place] [address] Bilirubin [Mass/Vol] 0.9 mg/dL Normal 0.2-1.3 [facility] Comment on above: Performed By: #### L AB17 ####Popcorn Vendor: SILVA REED ([id number])[facility] ([facility])[address] [place] [address] Calcium [Mass/Vol] 9.6 mg/dL Normal 8.4-10.4 [facility] Comment on above: Performed By: #### L [id number] ####Popcorn Vendor: SILVA REED ([id number])[facility] ([facility])[address] [place] [address] [place] Chloride [Moles/Vol] 103 mmol/L Normal 98-107 [facility] Comment on above: Performed By: #### L [id number] ####Popcorn Vendor: SILVA REED ([id number])[facility] ([facility])[address] [place] [address] [place] CO2 [Moles/Vol] 28 mmol/L Normal 22-30 [facility] Comment on above: Performed By: #### L [id number] ####Popcorn Vendor: SILVA REED ([id number])[facility] ([facility])[address] [place] [address] Creatinine [Mass/Vol] 1.39 mg/dL High 0.66-1.25 [facility] Comment on above: Performed By: #### L [id number] ####Popcorn Vendor: SILVA REED ([id number])[facility] ([facility])[address] [place] [address] [place] GLOMERULAR FILTRATION RATE ML/MIN/1.73 SQ M.PREDICTED 51.9 mL/min/1.73m*2 Low >60.0 [facility] Comment on above: Result Comment: Calc ulation based on the Chronic Kidney Disease Epidemiology Collaboration (CKD-EPI) equation refit without adjustment for race Performed By: #### L [id number] ####Popcorn Vendor: SILVA REED ([id number])[facility] ([facility])[address] [place] [address] Glucose [Mass/Vol] 91 mg/dL Normal 70-100 [facility] Comment on above: Performed By: #### L [id number] ####Popcorn Vendor: SILVA REED ([id number])[facility])[address] [place] [address] Potassium [Moles/Vol] 4.1 mmol/L Normal 3.5-5.[address] [facility] Comment on above: Performed By: #### L [id number] ####Popcorn Vendor: SILVA REED ([id number])[facility] ([facility])[address] [place] [address] Protein [Mass/Vol] 7.0 g/dL Normal 6.3-8.2 [facility] Comment on above: Performed By: #### L [id number] ####Popcorn Vendor: SILVA REED ([id number])[facility] ([facility])[address] [place] [address] [place] Sodium [Moles/Vol] 140 mmol/L Normal 135-145 [facility] Comment on above: Performed By: #### L [id number] ####Popcorn Vendor: SILVA REED ([id number])[facility])[address] [place] [address] [place] Urea nitrogen [Mass/Vol] 25 mg/dL High 9-20 [facility] Comment on above: Performed By: #### L [id number] ####Popcorn Vendor: SILVA REED ([id number])[facility] ([facility])[address] [place] [address] HEMOGLOBIN A1Con 01-26-2024 Glucose [Mass/Vol] 100 mg/dL Normal [facility] Comment on above: Performed By: #### L [id number] ####Popcorn Vendor: SILVA REED ([id number])[facility])[address] [place] [address] HbA1c (Bld) [Mass fraction] 5.1 % Normal <5.7 [facility] Comment on above: Result Comment: Norm al less than 5.7%Prediabetes 5.7% to 6.4%Diabetes 6.5% or higher--HgbA1C levels may not be accurate in patients who have renal disease, received recent blood transfusions, are anemic, or who have dyshemoglobinemia. Performed By: #### L AB90 ####Popcorn Vendor: SILVA REED ([id number])[facility])[address] [place] [address] MRSA BY PCRon 01-26-2024 MRSA BY PCR Normal [facility] Comment on above: Performed By: #### L [id number] ####Popcorn Vendor: SILVA REED ([id number])[facility])[address] [place] [address] PREPROCINSon 01-26-2024 PREPROCINS Normal [facility] PROTIME AND APTTon aPTT Coag (Bld) [Time] 26.6 s Normal 20.0-30.5 [facility] Comment on above: Performed By: #### L [id number] ####Popcorn Vendor: SILVA REED ([id number])[facility] ([facility])[address] [place] [address] INR Coag (PPP) [Relative time] 1.0 {INR} Normal 0.9-1.1 [facility] Comment on above: Result Comment: Frank mmended Anticoagulant Therapy: SEE BELOW----- INR of 2.0 - 3.0 : - Prophylaxis of Venous Thrombosis (high-risk surgery) - Treatment of Venous Thrombosis - Treatment of Pulmonary Embolism (Includes tissue heart valves, Acute Myocardial Infarction to prevent systemic embolism, Valvular Heart Disease, and Atrial Fibrillation)----- INR of 2.5 - 3.5 : - Mechanical Prosthetic Valves (high risk) - If oral anticoagulant therapy is used to prevent Myocardial Infarction Performed By: #### L [id number] ####Popcorn Vendor: SILVA REED ([id number])[facility] ([facility])[address] [place] [address] PT Coag (PPP) [Time] 10.8 s Normal 9.0-12.0 [facility] Comment on above: Performed By: #### L [id number] ####Popcorn Vendor: SILVA REED ([id number])[facility] [place] [address] Progress Noteon 01-26-2024 Progress Note Normal [facility] URINE CULTUREon 01-26-2024 Bacteria identified Cx Nom (U) Normal [facility] Comment on above: Performed By: #### L [id number] ####Popcorn Vendor: SILVA REED ([id number])[facility] ([facility])[address] [place] [address] 36on 01-25-2024 36 Normal [facility] 36 Normal [facility] No Panel InformationOrdered By: Alyx Schilling on 01-22-2024 Left CCA dist EDV 15.0 cm[facility] Work Phone: Left CCA dist PSV 61.1 cm/s [facility] Work Phone: Left CCA mid EDV 19.70 cm/s [facility] Work Phone: Left CCA mid PSV 66.80 cm/s [facility] Work Phone: Left CCA prox EDV 35.6 cm/s [facility] Work Phone: Left CCA prox PSV 108.1 cm/s [facility] Work Phone: Left ECA EDV 8.40 cm/s [facility] Work Phone: Left ECA PSV 48.9 cm/s [facility] Work Phone: Left ICA dist EDV 45.7 cm/s [facility] Work Phone: Left ICA dist PSV 103.2 cm/s [facility] Work Phone: Left ICA mid EDV 45.7 cm/s [facility] Work Phone: Left ICA mid PSV 117.9 cm/s [facility] Work Phone: Left ICA prox EDV 35.9 cm/s [facility] Work Phone: Left ICA prox PSV 110.6 cm/s [facility] Work Phone: Left ICA/CCA PSV 1.76 [facility] Work Phone: Left subclavian prox EDV 4.1 cm/s [facility] Work Phone: Left subclavian prox PSV 98.7 cm/s [facility] Work Phone: Left vertebral EDV 26.10 cm/s [facility] Work Phone: Left vertebral PSV 109.4 cm/s [facility] Work Phone: Right CCA dist EDV 18.4 cm/s [facility] Work Phone: Right cca dist PSV 57.6 cm/s [facility] Work Phone: Right CCA mid EDV 27.50 cm/s [facility] Work Phone: Right CCA mid PSV 80.90 cm/s [facility] Work Phone: Right CCA prox EDV 37.7 cm/s [facility] Work Phone: Right CCA prox PSV 99.8 cm/s [facility] Work Phone: Right ECA EDV 10.10 cm/s [facility] Work Phone: Right ECA PSV 108.1 cm/s [facility] Work Phone: Right ICA dist EDV 36.3 cm/s [facility] Work Phone: Right ICA dist PSV 89.6 cm/s [facility] Work Phone: Right ICA mid EDV 24.3 cm/s [facility] Work Phone: Right ICA mid PSV 65.6 cm/s [facility] Work Phone: Right ICA prox EDV 21.0 cm/s [facility] Work Phone: Right ICA prox PSV 58.0 cm/s [facility] Work Phone: Right ICA/CCA PSV 1.11 [facility] Work Phone: Right subclavian prox EDV 0.0 cm/s [facility] Work Phone: Right subclavian prox PSV 164.9 cm/s [facility] Work Phone: Left arm BP 180 mmHg [facility] Work Phone: Left Prox Radial A BP 176 mmHg [facility] Work Phone: Left Prox Ulnar A BP 180 mmHg [facility] Work Phone: Left WBI 1.00 [facility] Work Phone: Right arm BP 165 mmHg [facility] Work Phone: Right Prox Radial A BP 156 mmHg [facility] Work Phone: Right Prox Ulnar A BP 166 mmHg [facility] Work Phone: Right WBI 0.92 [facility] Work Phone: Left GSV at Knee Diam 0.98 mm [facility] Work Phone: Left GSV BK Dist Diam 0.98 [facility] Work Phone: Left GSV BK Mid Diam 0.85 [facility] Work Phone: Left GSV BK Prox Diam 0.88 mm [facility] Work Phone: Left GSV Junc Diam 3.40 mm [facility] Work Phone: Left GSV Thigh Dist Diam 1.45 mm [facility] Work Phone: Left GSV Thigh Mid Diam 1.96 [facility] Work Phone: Left GSV Thigh Prox Diam 2.34 mm [facility] Work Phone: [phone] Right GSV at Knee Diam 1.52 mm [facility] Work Phone: Right GSV BK Dist Diam 0.95 mm [facility] Work Phone: Right GSV BK Mid Diam 1.11 mm [facility] Work Phone: Right GSV BK Prox Diam 1.52 mm [facility] Work Phone: [phone] Right GSV Junc Diam 4.10 mm [facility] Work Phone: [phone] Right GSV Thigh Dist Diam 1.70 mm [facility] Work Phone: [phone] Right GSV Thigh Mid Diam 2.30 mm [facility] Work Phone: Right GSV Thigh Prox Diam 1.77 mm [facility] Work Phone: No Panel Informationon 01-21 <50% stenosis in the right internal carotid artery. Heterogeneous plaque (proximal) in the right internal carotid artery. <50% stenosis in the left internal carotid artery. Heterogeneous plaque (proximal) in the left internal carotid artery. Normal antegrade flow involving the right vertebral artery. Normal antegrade flow involving the left vertebral artery. Right Carotid Common Carotid Artery: Patent. Mild and heterogeneous plaque (distal). Internal Carotid Artery: <50% stenosis. Minimal and heterogeneous plaque (proximal). External Carotid Artery: <50% stenosis. Mild and heterogeneous plaque (proximal). Vertebral Artery: Flow is antegrade. Subclavian Artery: Normal. Left Carotid Common Carotid Artery: Patent. Minimal and heterogeneous plaque (distal). Internal Carotid Artery: <50% stenosis. Minimal and heterogeneous plaque (proximal). External Carotid Artery: <50% stenosis. Minimal and heterogeneous plaque. Vertebral Artery: Flow is antegrade. Subclavian Artery: Normal. Field Cane Scale Clerk Details A teran scale, color Doppler imaging and spectral Doppler analysis ultrasound was performed. During the study longitudinal and transverse views were obtained. Pulsed wave doppler was performed. The exam was performed with the patient in the supine position. Overall the study quality was adequate. CV CPACS Right side findings: WBI is 0.92. This is normal. Left side findings: WBI is 1.00. This is normal. Right digit PPGs are dampened in the 1st, 2nd, 3rd, 4th and 5th digit at baseline. There is diminished right PPG waveforms with radial artery compression indicative of incomplete arch. Left digit PPGs are dampened in the 1st, 2nd, 3rd and 5th digit at baseline. There is diminished left PPG waveforms with radial artery compression indicative of incomplete arch. Right Upper Arterial Lower arm PVR waveforms: consistent with mild disease. 1st digit PVR waveforms: consistent with moderate disease. 2nd digit PVR waveforms: consistent with moderate disease. 3rd digit PVR waveforms: consistent with moderate disease. 4th digit PVR waveforms: consistent with mild disease. 5th digit PVR waveforms: consistent with moderate disease. Normal wrist brachial index (WBI). Right digit PPGs are dampened in the 1st, 2nd, 3rd, 4th and 5th digit. There is diminished right PPG waveforms with radial artery compression indicative of incomplete arch. Left Upper Arterial Lower arm PVR waveforms: consistent with mild disease. 1st digit PVR waveforms: consistent with moderate disease. 2nd digit PVR waveforms: consistent with severe disease. 3rd digit PVR waveforms: consistent with severe disease. 4th digit PVR waveforms: consistent with moderate disease. 5th digit PVR waveforms: consistent with moderate disease. Normal wrist brachial index (WBI). Left digit PPGs are dampened in the 1st, 2nd, 3rd and 5th digit. There is diminished left PPG waveforms with radial artery compression indicative of incomplete arch. Field Cane Scale Clerk Details A spectral Doppler analysis ultrasound was performed. Continuous wave doppler, pulsed volume recording (PVR) and photo plethysmography was performed. The exam was performed with the patient in the supine position. Overall the study quality was adequate. CV CPACS Vessel diameters as noted in the table below. Right Lower Venous Greater Saphenous Vein: Entire vessel patent, compressible Left Lower Venous Greater Saphenous Vein: Enitre vessel patent, compressible. Field Cane Scale Clerk Details A teran scale, color Doppler imaging and spectral Doppler analysis ultrasound was performed. During the study longitudinal and transverse views were obtained. Pulsed wave doppler was performed. The exam was performed with the patient in the reverse Trendelenburg position. Overall the study quality was adequate. CV CPA US Heart TransthoracicOrdere d By: Joey Neal on 01-22-2024 Ao Root Index 2.19 cm/m2 [facility] Work Phone: Aortic Root 4.2 cm [facility] Work Phone: Aortic Sinus Valsalva 4.2 cm [facility] Work Phone: Aortic Sinus Valsalva Index 2.19 cm/m2 [facility] Work Phone: Ascending Aorta 3.3 cm [facility] Work Phone: Ascending Aorta Index 1.72 cm/m2 [facility] Work Phone: E/E' Lateral 5.50 [facility] Work Phone: E/E' Ratio (Averaged) 5.19 [facility] Work Phone: E/E' Septal 4.89 [facility] Work Phone: EF BP 71 % 55 - 100 % [facility] Work Phone: Est. RA Pressure 8 mmHg [facility] Work Phone: Fractional Shortening 2D 24 % 28 - 44 % [facility] Work Phone: Global Longitudinal Strain -16.8 % [facility] Work Phone: Interpretation and review of laboratory results Abnormal [facility] Work Phone: IVC Diameter 2.5 cm [facility] Work Phone: IVSd 0.9 cm 0.6 - 1.0 cm [facility] Work Phone: LA Diameter 3.4 cm [facility] Work Phone: LA Size Index 1.77 cm/m2 [facility] Work Phone: LA Volume 2C 49 mL 18 - 58 mL [facility] Work Phone: LA Volume 4C 48 mL 18 - 58 mL [facility] Work Phone: LA Volume A/L 54 mL [facility] Work Phone: LA Volume BP 50 mL 18 - 58 mL [facility] Work Phone: LA Volume Index 2C 26 mL/m2 16 - 34 mL/m2 [facility] Work Phone: LA Volume Index 4C 25 mL/m2 16 - 34 mL/m2 [facility] Work Phone: LA Volume Index A/L 28 mL/m2 16 - 34 mL/m2 [facility] Work Phone: LA Volume Index BP 26 ml/m2 16 - 34 ml/m2 [facility] Work Phone: LA/AO Root Ratio 0.81 [facility] Work Phone: LV E' Lateral Velocity 8 cm/s [facility] Work Phone: LV E' Septal Velocity 9 cm/s [facility] Work Phone: LV EDV A2C 58 mL [facility] Work Phone: LV EDV A4C 92 mL [facility] Work Phone: LV EDV BP 74 mL 67 - 155 mL [facility] Work Phone: LV EDV Index A2C 30 mL/m2 [facility] Work Phone: LV EDV Index A4C 48 mL/m2 [facility] Work Phone: LV EDV Index BP 39 mL/m2 [facility] Work Phone: LV Ejection Fraction A2C 74 % [facility] Work Phone: LV Ejection Fraction A4C 72 % [facility] Work Phone: LV ESV A2C 15 mL [facility] Work Phone: LV ESV A4C 26 mL [facility] Work Phone: LV ESV BP 22 mL 22 - 58 mL [facility] Work Phone: LV ESV Index A2C 8 mL/m2 [facility] Work Phone: LV ESV Index A4C 14 mL/m2 [facility] Work Phone: LV ESV Index BP 11 mL/m2 [facility] Work Phone: LV Mass 2D 104.6 g 88 - 224 g [facility] Work Phone: LV Mass 2D Index 54.5 g/m2 49 - 115 g/m2 [facility] Work Phone: LV RWT Ratio 0.54 [facility] Work Phone: LVIDd 3.7 cm Abnormal 4.2 - 5.9 cm [facility] Work Phone: LVIDd Index 1.93 cm/m2 [facility] Work Phone: LVIDs 2.8 cm [facility] Work Phone: LVIDs Index 1.46 cm/m2 [facility] Work Phone: LVOT Area 4.9 cm2 [facility] Work Phone: LVOT Cardiac Output 4.6 liter/minute [facility] Work Phone: LVOT Diameter 2.5 cm [facility] Work Phone: LVOT Mean Gradient 1 mmHg [facility] Work Phone: LVOT Peak Gradient 2 mmHg [facility] Work Phone: LVOT Peak Velocity 0.7 m/s [facility] Work Phone: LVOT Stroke Volume Index 41.7 mL/m2 [facility] Work Phone: LVOT SV 80.0 ml [facility] Work Phone: LVOT VTI 16.3 cm [facility] Work Phone: LVPWd 1.0 cm 0.6 - 1.0 cm [facility] Work Phone: MV A Velocity 0.52 m/s [facility] Work Phone: MV E Velocity 0.44 m/s [facility] Work Phone: MV E Wave Deceleration Time 337.2 ms [facility] Work Phone: MV E/A 0.85 [facility] Work Phone: RV Free Wall Peak S' 15 cm/s [facility] Work Phone: RVSP 50 mmHg [facility] Work Phone: Sinotubular Junction 3.1 cm [facility] Work Phone: TAPSE 2.2 cm 1.7 cm [facility] Work Phone: TR Max Velocity 3.25 m/s [facility] Work Phone: TR Peak Gradient 42 mmHg [facility] Work Phone: [facility] Work Phone: US Heart Transthoracicon Left Ventricle: Left ventricle size is normal. Normal wall thickness. Normal left ventricular systolic function. The EF by visual approximation is 65%. Global longitudinal strain is reduced with a value of -16.8%. Normal wall motion. Right Ventricle: Right ventricle size is normal. Pacemaker lead present in the right ventricle. Normal systolic function. TAPSE is normal. Tricuspid Valve: Valve structure is normal. Mildly thickened leaflets. Moderate (2+) regurgitation. RVSP is 50 mmHg. Right Atrium: Right atrium is mildly dilated. Pacemaker lead present in the right atrium. Aorta: Normal sized ascending aorta. Mildly dilated sinuses of Valsalva. Sinuses of Valsalva diameter is 4.2 cm. Left Ventricle Left ventricle size is normal. Normal wall thickness. Normal left ventricular systolic function. The EF by visual approximation is 65%. Global longitudinal strain is reduced with a value of -16.8%. Normal wall motion. Right Ventricle Right ventricle size is normal. Pacemaker lead present in the right ventricle.Normal systolic function. TAPSE is normal. Left Atrium Left atrium size is normal (LA volume index 16-34 mL/m2). Right Atrium Right atrium is mildly dilated. Pacemaker lead present in the right atrium. IVC/SVC IVC is mildly dilated. IVC diameter is dilated and decreases less than 50% during inspiration; therefore the estimated right atrial pressure is elevated (~15 mmHg). Mitral Valve Valve structure is normal. Physiologically normal regurgitation. No stenosis noted. Tricuspid Valve Valve structure is normal. Mildly thickened leaflets. Moderate (2+) regurgitation. RVSP is 50 mmHg. Aortic Valve Not well visualized. Mildly thickened cusps. Trace regurgitation. No stenosis. Pulmonic Valve The pulmonic valve visualization is suboptimal but appears to be functioning normally. Valve structure is normal. No regurgitation. Ascending Aorta Normal sized ascending aorta. Mildly dilated sinuses of Valsalva. Sinuses of Valsalva diameter is 4.2 cm. Pericardium No pericardial effusion. Septum No interatrial shunt visualized on color Doppler. Study Details Image quality: poor. Additional technique includes myocardial strain. Heart rate: 60 bpm. Blood pressure: 146/74 mmHg. Technical qualifiers: Technically difficult study with poor endocardial visualization. Ultrasound enhancement agent was given to enhance imaging. CV CPACS 36on 01-19-2024 36 Normal [facility] Progress Noteon 01-19-2024 Progress Note Normal [facility] TROPONIN I, HIGH SENSITIVITY on 12-16-2023 TROPONIN I, HIGH SENSITIVITY 7 pg/mL 0 - 20 pg/mL [facility] Comment on above: Indeterminant: >12 to 100 pg/mL female >20 to 100 pg/mL male Indicative of myocardial injury. Serial sampling is recommended, a change of greater than or equal to 20 pg/mL is indicative of acute coronary syndrome. [facility] TROPONIN I, HIGH SENSITIVITY 7 pg/mL Normal 0-20 [facility] Comment on above: Result Comment: Indeterminant: >12 to 100 pg/mL female >20 to 100 pg/mL male Indicative of myocardial injury. Serial sampling is recommended, a change of greater than or equal to 20 pg/mL is indicative of acute coronary syndrome. Performed By: #### T ROHS ####Testing performed at [facility] [place] [address] CBCon 12-15-2023 ABSOLUTE BAS 0.1 10*3/uL Normal 0.0-0.2 [facility] Comment on above: Performed By: #### A CBC, CMPF, MG #### Testing performed at [address] [address] ABSOLUTE EOS 0.2 10*3/uL Normal 0.0-0.7 [facility] Comment on above: Performed By: #### A CBC, CMPF, MG #### Testing performed at [address] [address] ABSOLUTE NEUTROPHIL COUNT 3.9 10*3/uL Normal 1.4-6.5 [facility] Comment on above: Performed By: #### A CBC, CMPF, MG #### Testing performed at [address] [address] Basophils/100 WBC (Bld) 2.0 % Normal 0.0-2.0 [facility] Comment on above: Performed By: #### A CBC, CMPF, MG #### Testing performed at [address] [address] DTYPE AUTO DIFF Normal [facility] Comment on above: Performed By: #### A CBC, CMPF, MG #### Testing performed at [address] [address] Eosinophils/100 WBC (Bld) 2.9 % Normal 0.0-11.0 [facility] Comment on above: Performed By: #### A CBC, CMPF, MG #### Testing performed at [address] [address] Erythrocyte distribution width (RBC) [Ratio] 16.5 % High 11.5-14.5 [facility] Comment on above: Performed By: #### A CBC, CMPF, MG #### Testing performed at [address] [place] [address] Hematocrit (Bld) [Volume fraction] 36.7 % Low 42.0-52.0 [facility] Comment on above: Performed By: #### A CBC, CMPF, MG #### Testing performed at [address] [place] [address] Hemoglobin (Bld) [Mass/Vol] 12.2 g/dL Low 14.0-18.0 [facility] Comment on above: Performed By: #### A CBC, CMPF, MG #### Testing performed at [address] [address] Lymphocytes (Bld) [#/Vol] 1.4 10*3/uL Normal 1.2-3.4 [facility] Comment on above: Performed By: #### A CBC, CMPF, MG #### Testing performed at [address] [address] Lymphocytes/100 WBC (Bld) 22.8 % Normal 20.0-55.0 [facility] Comment on above: Performed By: #### A CBC, CMPF, MG #### Testing performed at [address] [address] MCH (RBC) [Entitic mass] 30.6 pg Normal 26.0-35.0 [facility] Comment on above: Performed By: #### A CBC, CMPF, MG #### Testing performed at [address] [address] MCHC (RBC) [Mass/Vol] 33.2 g/dL Normal 27.0-37.0 [facility] Comment on above: Performed By: #### A CBC, CMPF, MG #### Testing performed at [address] [address] MCV (RBC) [Entitic vol] 92.3 fL Normal 80.0-100.0 [facility] Comment on above: Performed By: #### A CBC, CMPF, MG #### Testing performed at [address] [address] Monocytes (Bld) [#/Vol] 0.5 10*3/uL Normal 0.0-0.7 [facility] Comment on above: Performed By: #### A CBC, CMPF, MG #### Testing performed at [address] [address] Monocytes/100 WBC (Bld) 8.2 % Normal 0.0-10.0 [facility] Comment on above: Performed By: #### A CBC, CMPF, MG #### Testing performed at [address] [address] Neutrophils/100 WBC (Bld) 64.1 % Normal 37.0-75.0 [facility] Comment on above: Performed By: #### A CBC, CMPF, MG #### Testing performed at [address] [address] Platelet mean volume (Bld) [Entitic vol] 8.8 fL Normal 7.4-11.0 [facility] Comment on above: Performed By: #### A CBC, CMPF, MG #### Testing performed at [address] [address] Platelets (Bld) [#/Vol] 223 10*3/uL Normal 130-400 [facility] Comment on above: Performed By: #### A CBC, CMPF, MG #### Testing performed at [address] [address] RBC (Bld) [#/Vol] 3.97 10*6/uL Low 4.0-6.1 [facility] Comment on above: Performed By: #### A CBC, CMPF, MG #### Testing performed at [address] [address] WBC (Bld) [#/Vol] 6.1 10*3/uL Normal 3.6-11.0 [facility] Comment on above: Performed By: #### A CBC, CMPF, MG #### Testing performed at [address] [address] CBC, EDIF, PLATELETon 2023 ABSOLUTE BASOPHIL COUNT 0.1 10*3/uL 0.0 - 0.2 10*3/uL [facility] Basophils/100 WBC (Bld) 2.0 % 0.0 - 2.0 % [facility] Differential cell count method Nom (Bld) AUTO DIFF % [facility] Eosinophils (Bld) [#/Vol] 0.2 10*3/uL 0.0 - 0.7 10*3/uL [facility] Eosinophils/100 WBC (Bld) 2.9 % 0.0 - 11.0 % [facility] Erythrocyte distribution width (RBC) [Ratio] 16.5 % High 11.5 - 14.5 % [facility] Hematocrit (Bld) [Volume fraction] 36.7 % Low 42.0 - 52.0 % [facility] Hemoglobin (Bld) [Mass/Vol] 12.2 g/dL Low [facility] Interpretation and review of laboratory results Abnormal [facility] Lymphocytes (Bld) [#/Vol] 1.4 10*3/uL 1.2 - 3.4 10*3/uL [facility] Lymphocytes/100 WBC (Bld) 22.8 % 20.0 - 55.0 % [facility] MCH (RBC) [Entitic mass] 30.6 pg 26. 0 - 35.0 PG [facility] MCHC (RBC) [Mass/Vol] 33.2 g/dL [facility] MCV (RBC) [Entitic vol] 92.3 fL A [facility] Monocytes (Bld) [#/Vol] 0.5 10*3/uL 0.0 - 0.7 10*3/uL [facility] Monocytes/100 WBC (Bld) 8.2 % 0.0 - 10.0 % [facility] Neutrophils (Bld) [#/Vol] 3.9 10*3/uL 1.4 - 6.5 10*3/uL [facility] Neutrophils/100 WBC (Bld) 64.1 % 37.0 - 75.0 % [facility] Platelet mean volume (Bld) [Entitic vol] 8.8 fL [facility] Platelets (Bld) [#/Vol] 223 10*3/uL 130 - 400 10*3/uL [facility] RBC (Bld) [#/Vol] 3.97 10*6/uL Low 4.0 - 6.1 10*6/uL [facility] WBC (Bld) [#/Vol] 6.1 10*3/uL 3.6 - 11.0 10*3/uL [facility] CMP FASTINGon 12-15-2023 A:G RATIO 1.6 RATIO Normal [facility] Comment on above: Performed By: #### A CBC, CMPF, MG #### Testing performed at [facility] [address] [place] [address] ALBUMIN 4.0 G/dl Normal 3.5-5.0 [facility] Comment on above: Performed By: #### A CBC, CMPF, MG #### Testing performed at [address] [address] ALP [Catalytic activity/Vol] 71 U/L Normal 38-126 [facility] Comment on above: Performed By: #### A CBC, CMPF, MG #### Testing performed at [address] [address] ALT [Catalytic activity/Vol] 13 U/L Normal <50 [facility] Comment on above: Performed By: #### A CBC, CMPF, MG #### Testing performed at [address] [address] AST [Catalytic activity/Vol] 17 U/L Normal 17-59 [facility] Comment on above: Performed By: #### A CBC, CMPF, MG #### Testing performed at [address] [address] Bilirubin [Mass/Vol] 0.5 mg/dL Normal 0.2-1.3 [facility] Comment on above: Performed By: #### A CBC, CMPF, MG #### Testing performed at [address] [address] Calcium [Mass/Vol] 9.5 mg/dL Normal 8.4-10.2 [facility] Comment on above: Performed By: #### A CBC, CMPF, MG #### Testing performed at [address] [address] Chloride [Moles/Vol] 105 mmol/L Normal 98-107 [facility] Comment on above: Result Comment: [place] cobian note: Triglyceride levels of 600mg/dL or higher may positively bias chloride results by approximately 2.1 mmol Performed By: #### A CBC, CMPF, MG #### Testing performed at [address] [address] CO2 [Moles/Vol] 30 mmol/L Normal 22-30 [facility] Comment on above: Performed By: #### A CBC, CMPF, MG #### Testing performed at [address] [place] [address] Creatinine [Mass/Vol] 1.39 mg/dL High 0.70-1.20 [facility] Comment on above: Performed By: #### A CBC, CMPF, MG #### Testing performed at [address] [address] EST. GFR, 64 ml/min/1.73sq.m [facility] Comment on above: Performed By: #### A CBC, CMPF, MG #### Testing performed at [address] [address] EST. GFR,Non 53 ml/min/1.73sq.m [facility] Comment on above: Performed By: #### A CBC, CMPF, MG #### Testing performed at [address] [address] GFR Information Average GFR for 70+ years old = 75. 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 Kidney failure, GFR = <15. The GFR estimate is not adjusted for extreme body surface area or acute process, nor has it been validated for women or ethnic groups other than and . Performed By: #### A CBC, CMPF, MG #### Testing performed at [address] [address] Glucose [Mass/Vol] 101 mg/dL High 70-100 [facility] Comment on above: Result Comment: NORMAL <100 mg/dL PREDIABETES 101-126 mg/dL DIABETES 126 mg/dL or higher Performed By: #### A CBC, CMPF, MG #### Testing performed at [address] [address] Potassium [Moles/Vol] 4.3 mmol/L Normal 3.5-5.1 [facility] Comment on above: Performed By: #### A CBC, CMPF, MG #### Testing performed at [address] [address] Protein [Mass/Vol] 6.5 g/dL Normal 6.3-8.2 [facility] Comment on above: Performed By: #### A CBC, CMPF, MG #### Testing performed at [address] [address] Sodium [Moles/Vol] 139 mmol/L Normal 137-145 [facility] Comment on above: Performed By: #### A CBC, CMPF, MG #### Testing performed at [address] [address] Urea nitrogen [Mass/Vol] 27 mg/dL [facility] 7- [facility] Comment on above: Performed By: #### A CBC, CMPF, MG #### Testing performed at [address] [address] COMPREHENSIVE METABOLIC PANE Luis Eduardo 12-15-2023 Albumin [Mass/Vol] 4.0 G/dl 3.5 - 5.0 G/dl [facility] Albumin/Globulin [Mass ratio] 1.6 {ratio} RATIO [facility] ALP [Catalytic activity/Vol] 71 U/L [facility] ALT [Catalytic activity/Vol] 13 U/L NINF [facility] AST [Catalytic activity/Vol] 17 U/L [facility] Bilirubin [Mass/Vol] 0.5 mg/dL [facility] Calcium [Mass/Vol] 9.5 mg/dL [facility] Chloride [Moles/Vol] 105 mmol/L [facility] Comment on above: Please note: Triglyc eride levels of 600mg/dL or higher may positively bias chloride results by approximately 2.1 mmol CO2 [Moles/Vol] 30 mmol/L [facility] Creatinine [Mass/Vol] 1.39 mg/dL High [facility] GFR COMMENT Average GFR for 70+ years old = 75. [facility] Comment on above: Chronic Kidney disea se, GFR = <60. Kidney failure, GFR = <15. The GFR estimate is not adjusted for extreme body surface area or acute process, nor has it been validated for women or ethnic groups other than and . GFR/1.73 sq M.predicted among blacks MDRD (S/P/Bld) [Vol rate/Area] 64 mL/min/{1.73_m2} ml/min/1.73sq .m [facility] GFR/1.73 sq M.predicted among non-blacks MDRD (S/P/Bld) [Vol rate/Area] 53 mL/min/{1.73_m2} ml/min/1.73sq .m [facility] Glucose post fast [Mass/Vol] 101 mg/dL High [facility] Comment on above: NORMAL <100 mg/dL PREDIABETES 101-126 mg/dL DIABETES 126 mg/dL or higher Interpretation and review of laboratory results Abnormal [facility] Potassium [Moles/Vol] 4.3 mmol/L [facility] Protein [Mass/Vol] 6.5 g/dL [facility] Sodium [Moles/Vol] 139 mmol/L [facility] Urea nitrogen [Mass/Vol] 27 mg/dL High [facility] INFLUENZA A AND B, PCRon FLUAV and FLUBV Ag IF Nom (Unsp spec) Negative NEGATIVE [facility] FLUBV Ag IA Ql (Unsp spec) Negative NEGATIVE [facility] Comment on above: TESTING PERFORMED BY CHADD [facility] MAGNESIUMon 12-15-2023 Magnesium [Mass/Vol] 2.1 mg/dL [facility] Magnesium [Mass/Vol] 2.1 mg/dL Normal 1.6-2.3 [facility] Comment on above: Performed By: #### A CBC, CMPF, MG ####[place] [address] NOVEL CORONAVIRUSon 12-15-19 24 NARRATIVE This test was performed using isothermal CHADD and has been approved as Emergency Use Authorization (EUA) for the qualitative detection [id number] nucleic acid. Normal [facility] Comment on above: Performed By: #### C OVID ####Testing performed at [place] [id number] SARS-CoV-2 (COVID-19) RNA CHADD+probe Ql (Unsp spec) Not detected Normal NOT DETECTED [facility] Comment on above: Result Comment: Nega tive results do not preclude SARS-CoV-2 infection and should not be used as the sole basis for treatment or other patient management decisions. Optimum specimen types and timing for peak viral levels during infections caused by SARS-CoV-2 has not been determined. The possibility of a false negative result should especially be considered if the patient's recent exposures or clinical presentation suggest that SARS-CoV-2 infection is probable, and diagnostic tests for other causes of illness (e.g., other respiratory illness) are negative. Collection of a new specimen and re-testing may be necessary if the patient is critically ill or clinically deteriorating. Performed By: #### C OVID ####[place] [address] NOVEL CORONAVIRUS LAB 1 - NA SOPHARYNGEALon 12-15-2023 NARRATIVE -1 This test was performed using isothermal CHADD and has been approved as Emergency Use Authorization (EUA) for the qualitative detection [id number] nucleic acid. [facility] SARS-CoV-2 (COVID-19) RNA CHADD+probe Ql (Unsp spec) Not detected NOT DETECTED [facility] Comment on above: Negative results do not preclude SARS-CoV-2 infection and should not be used as the sole basis for treatment or other patient management decisions. Optimum specimen types and timing for peak viral levels during infections caused by SARS-CoV-2 has not been determined. The possibility of a false negative result should especially be considered if the patient's recent exposures or clinical presentation suggest that SARS-CoV-2 infection is probable, and diagnostic tests for other causes of illness (e.g., other respiratory illness) are negative. Collection of a new specimen and re-testing may be necessary if the patient is critically ill or clinically deteriorating. [facility] No Panel Informationon 12-14 [facility] RAPID FLU Aon 12-15-2023 INFLUENZA A Negative Normal NEGATIVE [facility] Comment on above: Performed By: #### R FLUAB ####[place] [address] INFLUENZA B Negative Normal NEGATIVE [facility] Comment on above: Result Comment: TEST ING PERFORMED BY CHADD Performed By: #### R FLUAB ####Testing performed at [place] [id number] TROPONIN I, HIGH SENSITIVITY on 12-15-2023 TROPONIN I, HIGH SENSITIVITY 6 pg/mL 0 - 20 pg/mL [facility] Comment on above: Indeterminant: >12 to 100 pg/mL female >20 to 100 pg/mL male Indicative of myocardial injury. Serial sampling is recommended, a change of greater than or equal to 20 pg/mL is indicative of acute coronary syndrome. [facility] TROPONIN I, HIGH SENSITIVITY 6 pg/mL Normal 0-20 [facility] Comment on above: Result Comment: Indeterminant: >12 to 100 pg/mL female >20 to 100 pg/mL male Indicative of myocardial injury. Serial sampling is recommended, a change of greater than or equal to 20 pg/mL is indicative of acute coronary syndrome. Performed By: #### T [facility] ####Testing performed at [facility] [place] [address] XR CHEST PA AND LATERAL 2 EWSon 12-15-2023 XR CHEST PA AND LATERAL 2 VIEWS EXAM: XR CHEST PA AND LATERAL 2 VIEWS HISTORY: Cough shortness of breath x1 week COMPARISON: X-ray chest 11/19/2020. TECHNIQUE: 3 views FINDINGS: The cardiac silhouette is normal in size. The mediastinum is not widened. There is a left subclavian pacemaker with leads overlying the right atrium and right ventricle. The lungs are hyperinflated. There is coarsening of the lung markings with fibrotic change. There are calcified granulomata. There is no consolidation or large effusion. No pneumothorax is seen. There are degenerative changes of the spine with a slight scoliosis. There is no acute bony pathology. IMPRESSION: Pulmonary hyperinflation. No acute pathology seen. Normal [facility] XR Chest PA and Lateralon IMPRESSION: Pulmonary hyperinflation. No acute pathology seen. RADIOLOGY EXAM: XR CHEST PA AND LATERAL 2 VIEWS HISTORY: Cough shortness of breath x1 week COMPARISON: X-ray chest 11/19/2020. TECHNIQUE: 3 views FINDINGS: The cardiac silhouette is normal in size. The mediastinum is not widened. There is a left subclavian pacemaker with leads overlying the right atrium and right ventricle. The lungs are hyperinflated. There is coarsening of the lung markings with fibrotic change. There are calcified granulomata. There is no consolidation or large effusion. No pneumothorax is seen. There are degenerative changes of the spine with a slight scoliosis. There is no acute bony pathology. RADIOLOGY Rhonda Moise MD - 12/15/2023 EXAM: XR CHEST PA AND LATERAL 2 VIEWS HISTORY: Cough shortness of breath x1 week COMPARISON: X-ray chest 11/19/2020. TECHNIQUE: 3 views FINDINGS: The cardiac silhouette is normal in size. The mediastinum is not widened. There is a left subclavian pacemaker with leads overlying the right atrium and right ventricle. The lungs are hyperinflated. There is coarsening of the lung markings with fibrotic change. There are calcified granulomata. There is no consolidation or large effusion. No pneumothorax is seen. There are degenerative changes of the spine with a slight scoliosis. There is no acute bony pathology. IMPRESSION IMPRESSION: Pulmonary hyperinflation. No acute pathology seen. [facility] Radiology Study observation (narrative) [facility] XR Chest PA and LateralOrder ed By: Rhnoda Moise on 12-15-2023 [facility] Work Phone: TROPONIN I, HIGH SENSITIVITY on 10-26-2023 TROPONIN I, HIGH SENSITIVITY 4 pg/mL 0 - 20 pg/mL [facility] Comment on above: Indeterminant: >12 to 100 pg/mL female >20 to 100 pg/mL male Indicative of myocardial injury. Serial sampling is recommended, a change of greater than or equal to 20 pg/mL is indicative of acute coronary syndrome. [facility] TROPONIN I, HIGH SENSITIVITY 4 pg/mL Normal 0-20 [facility] Comment on above: Result Comment: Indeterminant: >12 to 100 pg/mL female >20 to 100 pg/mL male Indicative of myocardial injury. Serial sampling is recommended, a change of greater than or equal to 20 pg/mL is indicative of acute coronary syndrome. Performed By: #### T [facility] ####Testing performed at [facility] [place] [id number] POCT BD Veritor Triplex Agon 10-08-2023 Interpretation and review of laboratory results Normal [facility] Work Phone: POC Triplex Flu A-Ag Presumptive negativ e for Triplex FLU A (no antigen detected) Presumptive negative for [facility] FLU A (no antigen detected) [facility] Work Phone: POC Tri[facility] Flu B-Ag Presumptive negativ e for [facility]plex FLU B (no antigen detected) Presumptive negative for [facility] FLU B (no antigen detected) [facility] Work Phone: SARS-CoV-2 (COVID-19) RNA CHADD+probe Ql (Unsp spec) Presumptive negative for Triplex SARS-CoV-2 (no antigen detected) Presumptive negative for [facility] SARS-CoV-2 (no antigen detected) [facility] Work Phone: [facility] Work Phone: Absolute lymphocyte countOrd ered By: Mely Sanderson on 08-05-2023 Lymphocytes Auto (Unsp spec) [#/Vol] 0.77 10*3/uL 0.83-4.51 [facility] Automated lymphocyte count a s percentage of total leukocytesOrdered By: Mely Sanderson on 08-05-2023 Lymphocytes/100 WBC Auto (Unsp spec) 7.6 % 19-41 [facility] Basophil percentageOrdered B y: Mely Sanderson on 08-05-2023 Basophils/100 WBC (Bld) 0.4 % 0-[address] [facility] Chloride [Moles/Vol] 104 mmol/L 98-107 [facility] Eosinophils/100 WBC (Bld) 0.6 % 0-5 [facility] Glucose [Mass/Vol] 98 mg/dL 74-106 [facility] Hemoglobin (Bld) [Mass/Vol] 12.2 g/dL 13.0-16.5 [facility] Monocytes/100 WBC (Bld) 2.3 % 0-[address] [facility] Neutrophils (Bld) [#/Vol] 9.0 10*3/uL 2.0-7.7 [facility] Neutrophils/100 WBC (Bld) 88.4 % 47-70 [facility] Potassium [Moles/Vol] 4.0 mmol/L 3.5-5.1 [facility] Sodium [Moles/Vol] 138 mmol/L 136-145 [facility] WBC (Bld) [#/Vol] 10.2 10*3/uL 4.4-11.0 [facility] Determination of erythrocyte mean corpuscular volume (MCV)Ordered By: Mely Sanderson on 08-05-2023 MCV (RBC) [Entitic vol] 94.4 fL 80-[address] [facility] Erythrocyte distribution wid th ratioOrdered By: Mely Sanderson on 08-05-2023 Erythrocyte distribution width (RBC) [Ratio] 15.0 % 11.6-14.6 [facility] Erythrocyte distribution wid th standard deviationOrdered By: Mely Sanderson on 08-05-2023 Erythrocyte distribution width (RBC) [Entitic vol] 51.9 fL 35.1-43.9 [facility] Hematocrit Auto (Bld) [Volum e fraction]Ordered By: Mely Sanderson on 08-05-2023 Hematocrit (Bld) [Volume fraction] 39.1 % 40-54 [facility] Immature granulocytes/100 WB C Auto (Bld)Ordered By: Mely Sanderson on 08-05-2023 Immature granulocytes/100 WBC (Bld) 0.700 % 0.0-0.9 [facility] Comment on above: IG% - Immature Granu locytes (promyelocytes, myelocytes and metamyelocytes) > 1% indicates that a LEFT SHIFT is Present. Laboratory - Chemistry and C hemistry - challengeOrdered By: Mely Sanderson on 08-05-2023 CO2 [Moles/Vol] 28.0 mmol/L 21.0-32.0 [facility] Urea nitrogen/Creatinine [Mass ratio] 24.5 mg/mg 10-20 [facility] Laboratory - Hematology and Cell countsOrdered By: Mely Sanderson on 08-05-2023 MCH (RBC) [Entitic mass] 29.5 pg 27.0-32.0 [facility] MCHC (RBC) [Mass/Vol] 31.2 g/dL 32-36 [facility] Nucleated RBC/100 WBC (Bld) [Ratio] 0 % 0-5 [facility] Platelets (Bld) [#/Vol] 268 10*3/uL 150-450 [facility] Laboratory - Microbiology an d Antimicrobial susceptibilityOrdered By: Mely Sanderson on 08-05-2023 SARS-CoV-2 (COVID-19) RNA CHADD+probe Ql (Unsp spec) [facility] SARS-CoV-2 (COVID-19) RNA CHADD+probe Ql (Unsp spec) [facility] No Panel InformationOrdered By: Mely Sanderson on 08-05-2023 Estimated GFR (MDRD) Amer 58 mL/min >60 [facility] Comment on above: GFR Calc Estimated GFR (MDRD) Non-Af Amer 48 mL/min >60 [facility] Comment on above: Non- GFR Calc Troponin I High Sensitivity 7 pg/mL 3.0-78.0 [facility] Comment on above: Please Note: [place] t Units and Gender Specific Reference Ranges. For more information see Policy Stat Procedure [place] High Sensitivity Troponin (TNIH) and attachments. Platelet mean volume Vini-Ec ker (Bld) [Entitic vol]Ordered By: Mely Sanderson on 08-05-2023 Platelet mean volume (Bld) [Entitic vol] 11.2 fL 6.2-12.0 [facility] RBC Auto (Bld) [#/Vol]Ordere d By: Mely Sanderson on 08-05-2023 RBC (Bld) [#/Vol] 4.14 10*6/uL 4.6-6.2 [facility] Serum or plasma calcium loida urement (mass/volume)Ordered By: Mely Sanderson on 08-05-2023 Calcium [Mass/Vol] 9.8 mg/dL 8.5-10.1 [facility] Serum or plasma creatinine m easurement (mass/volume)Ordered By: Mely Sanderson on 08-05-2023 Creatinine [Mass/Vol] 1.51 mg/dL 0.70-1.30 [facility] Comment on above: The validity of the calculated GFR & GFRAA in patients over 70 years has not been determined. Clinical correlation is essential. Serum or plasma urea nitroge n measurement (mass/volume)Ordered By: Mely Sanderson on 08-05-2023 Urea nitrogen [Mass/Vol] 37 mg/dL 7-18 [facility] Thin prep Papanicolaou smear with manual screeningOrdered By: Mely Sanderson on 08-05-2023 Thin prep Papanicolaou smear with manual screening 6 5-15 [facility] Basophil percentageOrdered B y: Fouzia Aponte on 07-22-2023 Bilirubin [Mass/Vol] 0.50 mg/dL 0.20-1.00 [facility] Comment on above: For patients on eltr ombopag therapy, use of Dimension [place] TBIL is not recommended. Chloride [Moles/Vol] 111 mmol/L 98-107 [facility] Glucose [Mass/Vol] 109 mg/dL 74-106 [facility] Comment on above: Fasting Glucose resu lt from 100 to 125 mg/dL suggests IMPAIRED HOMEOSTASIS per A.D.A. criteria. Potassium [Moles/Vol] 3.9 mmol/L 3.5-5.1 [facility] Protein [Mass/Vol] 6.7 g/dL 6.4-8.2 [facility] Sodium [Moles/Vol] 141 mmol/L 136-145 [facility] WBC (Bld) [#/Vol] 4.0 10*3/uL 4.4-11.0 [facility] Blood erythrocytes count (nu mber/volume)Ordered By: Fouzia Aponte on 07-22-2023 RBC (Bld) [#/Vol] 4.15 10*6/uL 4.6-6.2 [facility] Blood hemoglobin measurement (mass/volume)Ordered By: Fouzia Aponte on 07-22-2023 Hemoglobin (Bld) [Mass/Vol] 12.5 g/dL 13.0-16.5 [facility] Blood platelet mean volumeOr dered By: Fouzia Aponte on 07-22-2023 Platelet mean volume (Bld) [Entitic vol] 11.4 fL 6.2-12.0 [facility] Determination of erythrocyte mean corpuscular volume (MCV)Ordered By: Fouzia Aponte on 07-22-2023 MCV (RBC) [Entitic vol] 94.2 fL 80-[address] [facility] Hematocrit Auto (Bld) [Volum e fraction]Ordered By: Fouzia Aponet on 07-22-2023 Hematocrit (Bld) [Volume fraction] 39.1 % 40-54 [facility] Laboratory - Chemistry and C hemistry - challengeOrdered By: Fouzia Aponte on 07-22-2023 ALP [Catalytic activity/Vol] 72 U/L 45-117 [facility] ALT [Catalytic activity/Vol] 18 U/L 16-61 [facility] CO2 [Moles/Vol] 29.0 mmol/L 21.0-32.0 [facility] Globulin (S) [Mass/Vol] 3.5 g/dL 2.2-4.[address] [facility] Natriuretic peptide B (Bld) [Mass/Vol] 258.4 pg/mL 0-100 [facility] Urea nitrogen/Creatinine [Mass ratio] 26.7 mg/mg 10-20 [facility] Laboratory - Hematology and Cell countsOrdered By: Fouzia Aponte on 07-22-2023 Erythrocyte distribution width (RBC) [Entitic vol] 53.4 fL 35.1-43.9 [facility] Erythrocyte distribution width (RBC) [Ratio] 15.3 % 11.6-14.6 [facility] MCH (RBC) [Entitic mass] 30.1 pg 27.0-32.0 [facility] MCHC Auto (RBC) [Mass/Vol]Or dered By: Fouzia Aponte on 07-22-2023 MCHC (RBC) [Mass/Vol] 32.0 g/dL 32-36 [facility] No Panel InformationOrdered By: Fouzia Aponte on 07-22-2023 Estimated GFR (MDRD) Amer 66 mL/min >60 [facility] Comment on above: GFR Calc Estimated GFR (MDRD) Non-Af Amer 54 mL/min >60 [facility] Comment on above: Non- GFR Calc Platelets bldOrdered By: Wei Aponte on 07-22-2023 Platelets (Bld) [#/Vol] 155 10*3/uL 150-450 [facility] Serum or plasma albumin loida urement (mass/volume)Ordered By: Fouzia Aponte on 07-22-2023 Albumin [Mass/Vol] 3.2 g/dL 3.2-5.0 [facility] Serum or plasma albumin/glob ulin mass ratioOrdered By: Fouzia Aponte on 07-22-2023 Albumin/Globulin [Mass ratio] 0.9 {ratio} 0.9-2.4 [facility] Serum or plasma calcium loida urement (mass/volume)Ordered By: Fouzia Aponte on 07-22-2023 Calcium [Mass/Vol] 9.1 mg/dL 8.5-10.1 [facility] Serum or plasma creatinine m easurement (mass/volume)Ordered By: Fouzia Aponte on 07-22-2023 Creatinine [Mass/Vol] 1.35 mg/dL 0.70-1.30 [facility] Comment on above: The validity of the calculated GFR & GFRAA in patients over 70 years has not been determined. Clinical correlation is essential. Serum or plasma urea nitroge n measurement (mass/volume)Ordered By: Fouzia Aponte on 07-22-2023 Urea nitrogen [Mass/Vol] 36 mg/dL 7-18 [facility] Thin prep Papanicolaou smear with manual screeningOrdered By: Fouzia Aponte on 07-22-2023 Thin prep Papanicolaou smear with manual screening 21 U/L 15-37 [facility] Thin prep Papanicolaou smear with manual screening 1 5-[address] [facility] [address] FACIAL WITHOUT CONTRASTon 07-10-2023 CT F[address] WITHOUT CONTRAST CT MAXILLOFACIAL without CONTRAST, 07/10/2023 3:08 PM EST INDICATION: Fall COMPARISON: None. TECHNIQUE: High-resolution axial images of the maxillofacial region with multiplanar reformatted imaging. Portions of the brain, skull base, and upper neck were also included in the imaging field. Dose reduction techniques were achieved by using automated exposure control and/or adjustment of mA and/or kV according to patient size and/or use of iterative reconstruction technique. FINDINGS: Limited evaluation of the visualized brain parenchyma is unremarkable. Orbital mejia and maxillary sinus mejia are intact. Mandible, as well as mandibular condyles are intact. Temporomandibular joints are appropriately positioned. Zygomatic arches are intact. No evidence for nasal bone fracture. There is leftward deviation of the nasal septum with a leftward directed bony spur. There is mucosal thickening in the left maxillary sinus. Somewhat hypoplastic mastoid air cells, otherwise clear. On the coronal reformatted images, the inferior orbital floor and rims are intact. Right periorbital soft tissue swelling is noted. IMPRESSION: No acute facial fracture is identified. Normal [facility] CT Facial bones WO contrasto n 07-10-2023 IMPRESSION: No acute facial fracture is identified. RADIOLOGY CT MAXILLOFACIAL without CONTRAST, 07/10/2023 3:08 PM EST INDICATION: Fall COMPARISON: None. TECHNIQUE: High-resolution axial images of the maxillofacial region with multiplanar reformatted imaging. Portions of the brain, skull base, and upper neck were also included in the imaging field. Dose reduction techniques were achieved by using automated exposure control and/or adjustment of mA and/or kV according to patient size and/or use of iterative reconstruction technique. FINDINGS: Limited evaluation of the visualized brain parenchyma is unremarkable. Orbital mejia and maxillary sinus mejia are intact. Mandible, as well as mandibular condyles are intact. Temporomandibular joints are appropriately positioned. Zygomatic arches are intact. No evidence for nasal bone fracture. There is leftward deviation of the nasal septum with a leftward directed bony spur. There is mucosal thickening in the left maxillary sinus. Somewhat hypoplastic mastoid air cells, otherwise clear. On the coronal reformatted images, the inferior orbital floor and rims are intact. Right periorbital soft tissue swelling is noted. RADIOLOGY Artemio Dangelo MD - 07/10/2023 CT MAXILLOFACIAL without CONTRAST, 07/10/2023 3:08 PM EST INDICATION: Fall COMPARISON: None. TECHNIQUE: High-resolution axial images of the maxillofacial region with multiplanar reformatted imaging. Portions of the brain, skull base, and upper neck were also included in the imaging field. Dose reduction techniques were achieved by using automated exposure control and/or adjustment of mA and/or kV according to patient size and/or use of iterative reconstruction technique. FINDINGS: Limited evaluation of the visualized brain parenchyma is unremarkable. Orbital mejia and maxillary sinus mejia are intact. Mandible, as well as mandibular condyles are intact. Temporomandibular joints are appropriately positioned. Zygomatic arches are intact. No evidence for nasal bone fracture. There is leftward deviation of the nasal septum with a leftward directed bony spur. There is mucosal thickening in the left maxillary sinus. Somewhat hypoplastic mastoid air cells, otherwise clear. On the coronal reformatted images, the inferior orbital floor and rims are intact. Right periorbital soft tissue swelling is noted. IMPRESSION IMPRESSION: No acute facial fracture is identified. [facility] Radiology Study observation (narrative) [facility] CT Facial bones WO contrastO rdered By: Artemio Dangelo on 07-10-2023 [facility] Work Phone: CT HEAD WITHOUT CONTRASTon 1 09-10-2022 CT HEAD WITHOUT CONTRAST CT HEAD WITHOUT CONTRAST: 07/10/2023 3:08 PM EST HISTORY: Fall TECHNIQUE: CT scan brain without IV contrast was obtained. COMPARISON: 11/28/2022. FINDINGS: There is a normal sulcal pattern and gyral configuration. No mass or mass effect or intracranial hemorrhage is seen. CSF spaces are prominent consistent with age-appropriate atrophy. Hypoattenuation of the periventricular and subcortical white matter consistent with small vessel ischemic changes are seen. Cerebellum and brainstem appear grossly normal. Mastoid and ethmoid air cells are well-developed and pneumatized. The visualized paranasal sinuses appear normal. IMPRESSION: Age-appropriate atrophy and small vessel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 08-22-2022 Hemoglobin (Bld) [Mass/Vol] 11.0 g/dL 13.0-16.5 [facility] Blood lymphocytes/100 leukoc ytesOrdered By: Dr. Ojeda on 08-22-2022 Lymphocytes/100 WBC (Bld) 1.8 % 19-41 [facility] Blood manual differential co mment interpretation (narrative result)Ordered By: Dr. Ojeda on 08-22-2022 Manual differential comment Reji (Bld) [Interp] COMMENT [facility] Comment on above: LYMPHOPENIA. Blood monocytes/100 leukocyt esOrdered By: Dr. Ojeda on 08-22-2022 Monocytes/100 WBC (Bld) 2.2 % 0-[address] [facility] Blood platelet mean volumeOr dered By: Dr. Ojeda on 08-22-2022 Platelet mean volume (Bld) [Entitic vol] 10.4 fL 6.2-12.0 [facility] Determination of erythrocyte mean corpuscular volume (MCV)Ordered By: Dr. Ojeda on 08-22-2022 MCV (RBC) [Entitic vol] 96.0 fL 80-[address] [facility] Hematocrit Auto (Bld) [Volum e fraction]Ordered By: Dr. Ojeda on 08-22-2022 Hematocrit (Bld) [Volume fraction] 33.6 % 40-54 [facility] Influenza virus A and B and SARS-CoV-2 (COVID-19) Ag panel - Upper respiratory specimOrdered By: Dr. Ojeda on 08-22-2022 SARS-CoV-2 (COVID-19) RNA CHADD+probe Ql (Resp) [facility] Ketones Test strip Ql (U)Ord ered By: Dr. Ojeda on 08-22-2022 Ketones Ql (U) Negative Negative [facility] Laboratory - Chemistry and C hemistry - challengeOrdered By: Dr. Ojeda on 08-22-2022 CO2 [Moles/Vol] 27.0 mmol/L 21.0-32.0 [facility] Urea nitrogen/Creatinine [Mass ratio] 23.1 mg/mg 10-20 [facility] Laboratory - Hematology and Cell countsOrdered By: Dr. Ojeda on 08-22-2022 Erythrocyte distribution width (RBC) [Entitic vol] 52.5 fL 35.1-43.9 [facility] Erythrocyte distribution width (RBC) [Ratio] 15.3 % 11.6-14.6 [facility] Immature granulocytes/100 WBC (Bld) 0.600 % 0.0-0.9 [facility] Comment on above: IG% - Immature Granu locytes (promyelocytes, myelocytes and metamyelocytes) > 1% indicates that a LEFT SHIFT is Present. MCH (RBC) [Entitic mass] 31.4 pg 27.0-32.0 [facility] Nucleated RBC/100 WBC (Bld) [Ratio] 0 % 0-5 [facility] MCHC Auto (RBC) [Mass/Vol]Or dered By: Dr. Ojeda on 08-22-2022 MCHC (RBC) [Mass/Vol] 32.7 g/dL 32-36 [facility] Mucus LM Ql (Urine sed)Order ed By: Dr. Ojeda on 08-22-2022 Mucus Ql (Urine sed) 0 SEEN /hpf [facility] Nitrite Test strip Ql (U)Ord ered By: Dr. Ojeda on 08-22-2022 Nitrite Ql (U) Positive Negative [facility] No Panel InformationOrdered By: Dr. Ojeda on 08-22-2022 Estimated Creatinine Clearance Calc 49.37 ml/min [facility] Estimated GFR (MDRD) Amer 60 mL/min >60 [facility] Comment on above: GFR Calc Estimated GFR (MDRD) Non-Af Amer 49 mL/min >60 [facility] Comment on above: Non- GFR Calc Troponin I High Sensitivity 10 pg/mL 3.0-78.0 [facility] Comment on above: Please Note: [place] t Units and Gender Specific Reference Ranges. For more information see Policy Stat Procedure [place] High Sensitivity Troponin (TNIH) and attachments. Platelets bldOrdered By: Dr. Ojeda on 08-22-2022 Platelets (Bld) [#/Vol] 176 10*3/uL 150-450 [facility] Protein Test strip Ql (U)Ord ered By: Dr. Ojeda on 08-22-2022 Protein Ql (U) 30 mg/dl Negative [facility] Serum or plasma calcium loida urement (mass/volume)Ordered By: Dr. Ojeda on 08-22-2022 Calcium [Mass/Vol] 9.3 mg/dL 8.5-10.1 [facility] Serum or plasma creatinine m easurement (mass/volume)Ordered By: Dr. Ojeda on 08-22-2022 Creatinine [Mass/Vol] 1.47 mg/dL 0.70-1.30 [facility] Comment on above: The validity of the calculated GFR & GFRAA in patients over 70 years has not been determined. Clinical correlation is essential. Serum or plasma urea nitroge n measurement (mass/volume)Ordered By: Dr. Ojeda on 08-22-2022 Urea nitrogen [Mass/Vol] 34 mg/dL 7-18 [facility] Squamous epithelial cells de tection in urine sediment by light microscopyOrdered By: Dr. Ojeda on 08-22-2022 Epithelial cells.squamous LM Ql (Urine sed) 0-5 SEEN /hpf 0-5 [facility] Thin prep Papanicolaou smear with manual screeningOrdered By: Dr. Ojeda on 08-22-2022 Thin prep Papanicolaou smear with manual screening 9 5-15 [facility] Urine blood detectionOrdered By: Dr. Ojeda on 08-22-2022 RBC Ql (U) 150 /ul Negative [facility] RBC Ql (U) 0 SEEN /hpf 0-5 [facility] Urine clarityOrdered By: Dr. Ojeda on 08-22-2022 Clarity (U) Clear Clear [facility] Urine color determinationOrd ered By: Dr. Ojeda on 08-22-2022 Color (U) Yellow Yellow [facility] Urine glucose detectionOrder ed By: Dr. Ojeda on 08-22-2022 Glucose Ql (U) Normal mg/dl Normal [facility] Urine leukocyte esterase det ection by dipstickOrdered By: Dr. Ojeda on 08-22-2022 Leukocyte esterase Test strip Ql (U) 500 /ul Negative [facility] Urine pHOrdered By: Dr. Mercedes law on 08-22-2022 pH (U) 6.0 [pH] 5.0 - 8.0 [facility] Urine sediment bacteria coun t by microscopy (number/high power field)Ordered By: Dr. Ojeda on 08-22-2022 Bacteria LM.HPF (Urine sed) [#/Area] 2 /[HPF] None Seen [facility] Urine specific gravity measu rementOrdered By: Dr. Ojeda on 08-22-2022 Specific gravity (U) [Rel density] 1.010 1.002-1.030 [facility] Urobilinogen Auto test strip Ql (U)Ordered By: Dr. Ojeda on 08-22-2022 Urobilinogen Ql (U) 4 mg/dl Normal [facility] Absolute lymphocyte counton 03-19-2022 Lymphocytes Auto (Unsp spec) [#/Vol] 1.01 10*3/uL 0.83-4.51 [facility] Work Phone: Basophil percentageon 2021 Bilirubin [Mass/Vol] 0.60 mg/dL 0.20-1.00 [facility] Work Phone: Comment on above: For patients on eltr ombopag therapy, use of Dimension [place] TBIL is not recommended. Cholesterol [Mass/Vol] 104 mg/dL <200 [facility] Work Phone: Comment on above: <200 mg/dL Desirable 200-240 mg/dL Borderline >240 mg/dL High Risk Protein [Mass/Vol] 7.2 g/dL 6.4-8.2 [facility] Work Phone: Triglyceride [Mass/Vol] 58 mg/dL <[address] [facility] Work Phone: Comment on above: The drugs N-Acetylcy steine and Metamizole may falsely depress this assay.Serum Triglycerides Reference Interval Normal <150 mg/dL Borderline high 150 - 199 mg/dL High 200 - 499 mg/dL Very High > or = 500 mg/dL Basophils/100 WBC (Bld) 1.5 % 0-[address] [facility] Work Phone: Chloride [Moles/Vol] 108 mmol/L 98-107 [facility] Work Phone: Eosinophils/100 WBC (Bld) 3.6 % 0-5 [facility] Work Phone: Glucose [Mass/Vol] 89 mg/dL 74-106 [facility] Work Phone: Neutrophils (Bld) [#/Vol] 4.4 10*3/uL 2.0-7.7 [facility] Work Phone: Neutrophils/100 WBC (Bld) 70.5 % 47-70 [facility] Work Phone: Potassium [Moles/Vol] 4.7 mmol/L 3.5-5.1 [facility] Work Phone: Sodium [Moles/Vol] 141 mmol/L 136-145 [facility] Work Phone: WBC (Bld) [#/Vol] 6.2 10*3/uL 4.4-11.0 [facility] Work Phone: Blood erythrocytes count (nu mber/volume)on 03-19-2022 RBC (Bld) [#/Vol] 4.07 10*6/uL 4.6-6.2 [facility] Work Phone: Blood hemoglobin measurement (mass/volume)on 03-19-2022 Hemoglobin (Bld) [Mass/Vol] 12.8 g/dL 13.0-16.5 [facility] Work Phone: Blood lymphocytes/100 leukoc yteson 03-19-2022 Lymphocytes/100 WBC (Bld) 16.3 % 19-41 [facility] Work Phone: [phone] Blood monocytes/100 leukocyt eson 03-19-2022 Monocytes/100 WBC (Bld) 7.8 % 0-[address] [facility] Work Phone: Blood platelet mean volumeon 03-19-2022 Platelet mean volume (Bld) [Entitic vol] 10.0 fL 6.2-12.0 [facility] Work Phone: [phone] Determination of erythrocyte mean corpuscular volume (MCV)on 03-19-2022 MCV (RBC) [Entitic vol] 96.8 fL 80-[address] [facility] Work Phone: Direct bilirubinon Bilirubin.direct [Mass/Vol] 0.18 mg/dL 0.00-0.30 [facility] Work Phone: Hematocrit Auto (Bld) [Volum e fraction]on 03-19-2022 Hematocrit (Bld) [Volume fraction] 39.4 % 40-54 [facility] Work Phone: Iron measurement (mass/mass) on 03-19-2022 Iron (Unsp spec) [Mass/Mass] 73 ug/dL 65-175 [facility] Work Phone: Laboratory - Chemistry and C hemistry - challengeon 03-19-2022 ALP [Catalytic activity/Vol] 88 U/L 45-117 [facility] Work Phone: ALT [Catalytic activity/Vol] 20 U/L 16-61 [facility] Work Phone: [phone] Globulin (S) [Mass/Vol] 3.5 g/dL 2.2-4.[address] [facility] Work Phone: [phone] CO2 [Moles/Vol] 31.0 mmol/L 21.0-32.0 [facility] Work Phone: [phone] Urea nitrogen/Creatinine [Mass ratio] 18.4 mg/mg 10-20 [facility] Work Phone: [phone] Laboratory - Hematology and Cell countson 03-19-2022 Erythrocyte distribution width (RBC) [Entitic vol] 52.0 fL 35.1-43.9 [facility] Work Phone: [phone] Erythrocyte distribution width (RBC) [Ratio] 14.6 % 11.6-14.6 [facility] Work Phone: [phone] Immature granulocytes/100 WBC (Bld) 0.300 % 0.0-0.9 [facility] Work Phone: [phone] Comment on above: IG% - Immature Granu locytes (promyelocytes, myelocytes and metamyelocytes) > 1% indicates that a LEFT SHIFT is Present. MCH (RBC) [Entitic mass] 31.4 pg 27.0-32.0 [facility] Work Phone: [phone] Nucleated RBC/100 WBC (Bld) [Ratio] 0 % 0-5 [facility] Work Phone: [phone] MCHC Auto (RBC) [Mass/Vol]on 03-19-2022 MCHC (RBC) [Mass/Vol] 32.5 g/dL 32-36 [facility] Work Phone: No Panel Informationon 03-19 Estimated GFR (MDRD) Amer 63 mL/min >60 [facility] Work Phone: [phone] Comment on above: GFR Calc Estimated GFR (MDRD) Non-Af Amer 52 mL/min >60 [facility] Work Phone: [phone] Comment on above: Non- GFR Calc Total Iron Binding Capacity 248 ug/dL 250-450 [facility] Work Phone: [phone] Platelets bldon 03-19-2022 Platelets (Bld) [#/Vol] 226 10*3/uL 150-450 [facility] Work Phone: [phone] Serum or plasma albumin loida urement (mass/volume)on 03-19-2022 Albumin [Mass/Vol] 3.7 g/dL 3.2-5.0 [facility] Work Phone: Serum or plasma calcium loida urement (mass/volume)on 03-19-2022 Calcium [Mass/Vol] 9.6 mg/dL 8.5-10.1 [facility] Work Phone: Serum or plasma cholesterol in HDL measurement (mass/volume)on 03-19-2022 Cholesterol in HDL [Mass/Vol] 41 mg/dL >40 [facility] Work Phone: Comment on above: The drugs N-Acetylcy steine and Metamizole may falsely depress this assay. Reference Range HDL <40 mg/dL Low HDL Cholesterol HDL >or= 60 mg/dL High HDL Cholesterol Serum or plasma cholesterol in VLDL measurement (mass/volume)on 03-19-2022 Cholesterol in VLDL [Mass/Vol] 12 mg/dL 5-40 [facility] Work Phone: Serum or plasma creatinine m easurement (mass/volume)on 03-19-2022 Creatinine [Mass/Vol] 1.41 mg/dL 0.70-1.30 [facility] Work Phone: Comment on above: The validity of the calculated GFR & GFRAA in patients over 70 years has not been determined. Clinical correlation is essential. Serum or plasma iron saturat ion measurement (mass fraction)on 03-19-2022 Iron saturation [Mass fraction] 29.4 % 15.0-55.0 [facility] Work Phone: Serum or plasma low density lipoprotein (LDL) cholesterol measurement (mass/volume)on 03-19-2022 Cholesterol in LDL [Mass/Vol] 51 mg/dL 0-130 [facility] Work Phone: Serum or plasma urea nitroge n measurement (mass/volume)on 03-19-2022 Urea nitrogen [Mass/Vol] 26 mg/dL 7-18 [facility] Work Phone: Thin prep Papanicolaou smear with manual screeningon 03-19-2022 Thin prep Papanicolaou smear with manual screening 17 U/L 15-37 [facility] Work Phone: Thin prep Papanicolaou smear with manual screening 2 5-15 [facility] Work Phone: Absolute lymphocyte counton 01-29-2022 Lymphocytes Auto (Unsp spec) [#/Vol] 1.35 10*3/uL 0.83-4.51 [facility] Work Phone: Basophil percentageon 2021 Basophils/100 WBC (Bld) 1.0 % 0-[address] [facility] Work Phone: Bilirubin [Mass/Vol] 0.30 mg/dL 0.20-1.00 [facility] Work Phone: Comment on above: For patients on eltr ombopag therapy, use of Dimension [place] TBIL is not recommended. Chloride [Moles/Vol] 109 mmol/L 98-107 [facility] Work Phone: Eosinophils/100 WBC (Bld) 2.4 % 0-5 [facility] Work Phone: Glucose [Mass/Vol] 98 mg/dL 74-106 [facility] Work Phone: Neutrophils (Bld) [#/Vol] 6.6 10*3/uL 2.0-7.7 [facility] Work Phone: Neutrophils/100 WBC (Bld) 73.7 % 47-70 [facility] Work Phone: Potassium [Moles/Vol] 4.3 mmol/L 3.5-5.1 [facility] Work Phone: Protein [Mass/Vol] 7.2 g/dL 6.4-8.2 [facility] Work Phone: Sodium [Moles/Vol] 141 mmol/L 136-145 [facility] Work Phone: WBC (Bld) [#/Vol] 9.0 10*3/uL 4.4-11.0 [facility] Work Phone: Blood erythrocytes count (nu mber/volume)on 01-29-2022 RBC (Bld) [#/Vol] 4.18 10*6/uL 4.6-6.2 [facility] Work Phone: Blood hemoglobin measurement (mass/volume)on 01-29-2022 Hemoglobin (Bld) [Mass/Vol] 13.1 g/dL 13.0-16.5 [facility] Work Phone: Blood lymphocytes/100 leukoc yteson 01-29-2022 Lymphocytes/100 WBC (Bld) 15.0 % 19-41 [facility] Work Phone: Blood monocytes/100 leukocyt eson 01-29-2022 Monocytes/100 WBC (Bld) 7.7 % 0-[address] [facility] Work Phone: Blood platelet mean volumeon 01-29-2022 Platelet mean volume (Bld) [Entitic vol] 10.3 fL 6.2-12.0 [facility] Work Phone: Determination of erythrocyte mean corpuscular volume (MCV)on 01-29-2022 MCV (RBC) [Entitic vol] 95.2 fL 80-[address] [facility] Work Phone: Erythrocyte sedimentation ra adarsh 01-29-2022 ESR (Bld) [Velocity] 7 mm/h 0-20 [facility] Work Phone: Hematocrit Auto (Bld) [Volum e fraction]on 01-29-2022 Hematocrit (Bld) [Volume fraction] 39.8 % 40-54 [facility] Work Phone: Laboratory - Chemistry and C hemistry - challengeon 01-29-2022 ALP [Catalytic activity/Vol] 83 U/L 45-117 [facility] Work Phone: ALT [Catalytic activity/Vol] 17 U/L 16-61 [facility] Work Phone: CO2 [Moles/Vol] 28.0 mmol/L 21.0-32.0 [facility] Work Phone: Globulin (S) [Mass/Vol] 3.3 g/dL 2.2-4.[address] [facility] Work Phone: [phone] Urea nitrogen/Creatinine [Mass ratio] 18.0 mg/mg 10-20 [facility] Work Phone: [phone] Laboratory - Hematology and Cell countson 01-29-2022 Erythrocyte distribution width (RBC) [Entitic vol] 51.6 fL 35.1-43.9 [facility] Work Phone: [phone] Erythrocyte distribution width (RBC) [Ratio] 14.7 % 11.6-14.6 [facility] Work Phone: [phone] Immature granulocytes/100 WBC (Bld) 0.200 % 0.0-0.9 [facility] Work Phone: [phone] Comment on above: IG% - Immature Granu locytes (promyelocytes, myelocytes and metamyelocytes) > 1% indicates that a LEFT SHIFT is Present. MCH (RBC) [Entitic mass] 31.3 pg 27.0-32.0 [facility] Work Phone: [phone] Nucleated RBC/100 WBC (Bld) [Ratio] 0 % 0-5 [facility] Work Phone: [phone] MCHC Auto (RBC) [Mass/Vol]on 01-29-2022 MCHC (RBC) [Mass/Vol] 32.9 g/dL 32-36 [facility] Work Phone: No Panel Informationon 01-29 Estimated GFR (MDRD) Amer 44 mL/min >60 [facility] Work Phone: [phone] Comment on above: GFR Calc Estimated GFR (MDRD) Non-Af Amer 36 mL/min >60 [facility] Work Phone: [phone] Comment on above: Non- GFR Calc Platelets bldon 01-29-2022 Platelets (Bld) [#/Vol] 228 10*3/uL 150-450 [facility] Work Phone: [phone] Serum or plasma albumin loida urement (mass/volume)on 01-29-2022 Albumin [Mass/Vol] 3.9 g/dL 3.2-5.0 [facility] Work Phone: Serum or plasma albumin/glob ulin mass ratioon 01-29-2022 Albumin/Globulin [Mass ratio] 1.2 {ratio} 0.9-2.4 [facility] Work Phone: Serum or plasma calcium loida urement (mass/volume)on 01-29-2022 Calcium [Mass/Vol] 9.5 mg/dL 8.5-10.1 [facility] Work Phone: Serum or plasma creatinine m easurement (mass/volume)on 01-29-2022 Creatinine [Mass/Vol] 1.94 mg/dL 0.70-1.30 [facility] Work Phone: Comment on above: The validity of the calculated GFR & GFRAA in patients over 70 years has not been determined. Clinical correlation is essential. Serum or plasma urea nitroge n measurement (mass/volume)on 01-29-2022 Urea nitrogen [Mass/Vol] 35 mg/dL 7-18 [facility] Work Phone: Thin prep Papanicolaou smear with manual screeningon 01-29-2022 Thin prep Papanicolaou smear with manual screening 12 U/L 15-37 [facility] Work Phone: Thin prep Papanicolaou smear with manual screening 4 5-15 [facility] Work Phone: C REACTIVE PROTEINon 021 CRP [Mass/Vol] mg/L 0 - 10.0 MG/L [facility] CBC, EDIF, [employer]Ton 2020 ABSOLUTE BASOPHIL COUNT 0.0 10*3/uL 0.0 - 0.2 10*3/uL [facility] Basophils/100 WBC (Bld) 0.0 % 0.0 - 2.0 % [facility] Differential cell count method Nom (Bld) AUTO DIFF % [facility] Eosinophils (Bld) [#/Vol] 0.00 10*3/uL 0.0 - 0.7 10*3/uL [facility] Eosinophils/100 WBC (Bld) 0.0 % 0.0 - 11.0 % [email or web address] Erythrocyte distribution width (RBC) [Ratio] 15.7 % High 11.5 - 14.5 % [facility] Hematocrit (Bld) [Volume fraction] 29.6 % Low 42.0 - 52.0 % [facility] Hemoglobin (Bld) [Mass/Vol] 10.1 g/dL Low [facility] Interpretation and review of laboratory results Abnormal [facility] Lymphocytes (Bld) [#/Vol] 0.10 10*3/uL Low 1.2 - 3.4 10*3/uL [facility] Lymphocytes/100 WBC (Bld) 3.6 % Low 20.0 - 55.0 % [facility] MCH (RBC) [Entitic mass] 30.1 pg 26. 0 - 35.0 PG [facility] MCHC (RBC) [Mass/Vol] 34.0 g/dL [facility] MCV (RBC) [Entitic vol] 88.5 fL [facility] Monocytes (Bld) [#/Vol] 0.1 10*3/uL 0.0 - 0.7 10*3/uL [facility] Monocytes/100 WBC (Bld) 2.5 % 0.0 - 10.0 % [facility] Neutrophils (Bld) [#/Vol] 3.9 10*3/uL 1.4 - 6.5 10*3/uL [facility] Neutrophils/100 WBC (Bld) 93.9 % High 37.0 - 75.0 % [facility] Platelet mean volume (Bld) [Entitic vol] 8.7 fL [facility] Platelets (Bld) [#/Vol] 213 10*3/uL 130. 0 - 400.0 10*3/uL [facility] RBC (Bld) [#/Vol] 3.35 10*6/uL Low 4.0 - 6.1 10*6/uL [facility] WBC (Bld) [#/Vol] 4.1 10*3/uL 3.6 - 11.0 10*3/uL [facility] GLUCOSE (POC DEVICE)on 02-26 GLUCOSE, POINT OF CARE [address] [facility] Interpretation and review of laboratory results Abnormal [facility] [employer] [id number] [facility] HEPATIC FUNCTION PANELon Albumin [Mass/Vol] 3.1 g/dL Low [facility] ALP [Catalytic activity/Vol] 40 U/L [facility] ALT [Catalytic activity/Vol] 27 U/L [facility] AST [Catalytic activity/Vol] 22 U/L [facility] Bilirubin [Mass/Vol] 0.8 mg/dL [facility] Bilirubin.direct [Mass/Vol] 0.1 mg/dL [facility] Interpretation and review of laboratory results Abnormal [facility] Protein [Mass/Vol] 5.5 g/dL Low [facility] LEGIONELLA URINARY AGon 08 L. pneumophila 1 Ag IA Ql (U) Negative NEGATIVE [facility] MAGNESIUMon 02-26-2021 Magnesium [Mass/Vol] 2.1 mg/dL [facility] NOVEL CORONAVIRUS LAB 1 - NA SOPHARYNGEALon 02-26-2021 NARRATIVE -1 This test was performed using isothermal CHADD and has been approved as Emergency Use Authorization (EUA) for the qualitative detection [id number] nucleic acid. [facility] SARS-CoV-2 (COVID-19) RNA CHADD+probe Ql (Unsp spec) Not detected NOT DETECTED [facility] Comment on above: Negative results do not preclude SARS-CoV-2 infection and should not be used as the sole basis for treatment or other patient management decisions. Optimum specimen types and timing for peak viral levels during infections caused by SARS-CoV-2 has not been determined. The possibility of a false negative result should especially be considered if the patient's recent exposures or clinical presentation suggest that SARS-CoV-2 infection is probable, and diagnostic tests for other causes of illness (e.g., other respiratory illness) are negative. Collection of a new specimen and re-testing may be necessary if the patient is critically ill or clinically deteriorating. [facility] No Panel Informationon 02-26 [facility] Interpretation and review of laboratory results Abnormal [facility] RENAL FUNCTION PANELon 02-26 Albumin [Mass/Vol] 3.1 G/dl Low 3.5 - 5.0 G/dl [facility] Calcium [Mass/Vol] 8.8 mg/dL [facility] Chloride [Moles/Vol] 105 mmol/L [facility] CO2 [Moles/Vol] 24 mmol/L [facility] Creatinine [Mass/Vol] 1.46 mg/dL High [facility] GFR COMMENT Average GFR for 70+ years old = 75. [facility] Comment on above: Chronic Kidney disea se, GFR = <60. Kidney failure, GFR = <15. The GFR estimate is not adjusted for extreme body surface area or acute process, nor has it been validated for women or ethnic groups other than and . GFR/1.73 sq M.predicted among blacks MDRD (S/P/Bld) [Vol rate/Area] mL/min/{1.73_m2} ml/min/1.73sq .m [facility] GFR/1.73 sq M.predicted among non-blacks MDRD (S/P/Bld) [Vol rate/Area] 50 mL/min/{1.73_m2} ml/min/1.73sq .m [facility] Glucose post fast [Mass/Vol] 194 mg/dL High [facility] Comment on above: NORMAL <100 mg/dL PREDIABETES 101-126 mg/dL DIABETES 126 mg/dL or higher Interpretation and review of laboratory results Abnormal [facility] Phosphate [Mass/Vol] 3.0 mg/dL [facility] Potassium [Moles/Vol] 3.8 mmol/L [facility] Sodium [Moles/Vol] 138 mmol/L [facility] Urea nitrogen [Mass/Vol] 32 mg/dL High [facility] SEDIMENTATION RATE, AUTOMATE Don 02-26-2021 ESR (Bld) [Velocity] 6 mm/h [facility] STREP PNEUMONIAE ANTIGEN, UR INEon 02-26-2021 S. pneumoniae Ag Ql (U) Negative NEGATIVE A [facility] URINALYSIS, MACROon 02-27-20 Bilirubin Ql (U) Negative NEGATIVE [facility] Clarity (U) CLEAR CLEAR [facility] Color (U) YELLOW YELLOW [facility] Glucose Test strip (U) [Mass/Vol] Negative NEGATIVE mg/dl [facility] Hemoglobin Ql (U) Negative NEGATIVE [facility] Ketones (U) [Mass/Vol] Negative NEGAT UVALDO mg/dl [facility] Leukocyte esterase Test strip Ql (U) Negative NEGATIVE [facility] Nitrite Ql (U) Negative NEGATIVE [facility] pH (U) 6.0 [pH] [facility] Protein Ql (U) TRACE Abnormal NEGATIVE mg/dl [facility] Specific gravity (U) [Rel density] 1.020 [facility] Urobilinogen (U) [Mass/Vol] 0.2 mg/dL [facility] URINE MICROSCOPICon 02-27-20 21 Bacteria LM.HPF (Urine sed) [#/Area] Negative NEGATIVE [facility] Casts LM.LPF (Urine sed) [#/Area] RARE Abnormal NONE /LPF [facility] Comment on above: HYALINE Crystals LM Nom (Urine sed) NONE NONE [facility] Epithelial cells LM Ql (Urine sed) 1 TO 5 /HPF [facility] Mucus Ql (Urine sed) Negative NEGATIVE [facility] RBC LM.HPF (Urine sed) [#/Area] Negative NEGATIVE /HPF [facility] Urine sediment comments LM Reji (Urine sed) PHYSICIAN REQUESTED CULTURE [facility] WBC LM.HPF (Urine sed) [#/Area] Negative NEGATIVE /HPF [facility] B-TYPE NATRIURETIC PEPTIDE ( BRAIN)on 02-25-2021 Interpretation and review of laboratory results Abnormal [facility] Natriuretic peptide B (Bld) [Mass/Vol] 128 pg/mL High 0 - 100 pg/mL [facility] C REACTIVE PROTEINon 021 CRP [Mass/Vol] mg/L 0 - 10.0 MG/L [facility] CBC, EDIF, PLATELETon 2020 ABSOLUTE BASOPHIL COUNT 0.0 10*3/uL 0.0 - 0.2 10*3/uL [facility] Basophils/100 WBC (Bld) 0.1 % 0.0 - 2.0 % [facility] Differential cell count method Nom (Bld) AUTO DIFF % [facility] Eosinophils (Bld) [#/Vol] 0.00 10*3/uL 0.0 - 0.7 10*3/uL [facility] Eosinophils/100 WBC (Bld) 0.3 % 0.0 - 11.0 % [facility] Erythrocyte distribution width (RBC) [Ratio] 15.9 % High 11.5 - 14.5 % [facility] Hematocrit (Bld) [Volume fraction] 37.7 % Low 42.0 - 52.0 % [facility] Hemoglobin (Bld) [Mass/Vol] 13.1 g/dL Low [facility] Interpretation and review of laboratory results Abnormal [facility] Lymphocytes (Bld) [#/Vol] 1.10 10*3/uL Low 1.2 - 3.4 10*3/uL [facility] Lymphocytes/100 WBC (Bld) 11.6 % Low 20.0 - 55.0 % [facility] MCH (RBC) [Entitic mass] 30.3 pg 26. 0 - 35.0 PG [facility] MCHC (RBC) [Mass/Vol] 34.7 g/dL [facility] MCV (RBC) [Entitic vol] 87.4 fL [facility] Monocytes (Bld) [#/Vol] 0.8 10*3/uL High 0.0 - 0.7 10*3/uL [facility] Monocytes/100 WBC (Bld) 8.5 % 0.0 - 10.0 % [facility] Neutrophils (Bld) [#/Vol] 7.4 10*3/uL High 1.4 - 6.5 10*3/uL [facility] Neutrophils/100 WBC (Bld) 79.5 % High 37.0 - 75.0 % [facility] Platelet mean volume (Bld) [Entitic vol] 9.0 fL [facility] Platelets (Bld) [#/Vol] 370 10*3/uL 130. 0 - 400.0 10*3/uL [facility] RBC (Bld) [#/Vol] 4.31 10*6/uL 4.0 - 6.1 10*6/uL [facility] WBC (Bld) [#/Vol] 9.3 10*3/uL 3.6 - 11.0 10*3/uL [facility] CHEM 7 (LYTES,BUN,CREA,GLUC) on 02-25-2021 Chloride [Moles/Vol] 102 mmol/L [facility] CO2 [Moles/Vol] 25 mmol/L [facility] Creatinine [Mass/Vol] 1.50 mg/dL High [facility] GFR COMMENT Average GFR for 70+ years old = 75. [facility] Comment on above: Chronic Kidney disea se, GFR = <60. Kidney failure, GFR = <15. The GFR estimate is not adjusted for extreme body surface area or acute process, nor has it been validated for women or ethnic groups other than and . GFR/1.73 sq M.predicted among blacks MDRD (S/P/Bld) [Vol rate/Area] 59 mL/min/{1.73_m2} ml/min/1.73sq .m [facility] GFR/1.73 sq M.predicted among non-blacks MDRD (S/P/Bld) [Vol rate/Area] 48 mL/min/{1.73_m2} ml/min/1.73sq .m [facility] Glucose post fast [Mass/Vol] 133 mg/dL High [facility] Comment on above: NORMAL <100 mg/dL PREDIABETES 101-126 mg/dL DIABETES 126 mg/dL or higher Interpretation and review of laboratory results Abnormal [facility] Potassium [Moles/Vol] 3.3 mmol/L Low [facility] Sodium [Moles/Vol] 138 mmol/L [facility] Urea nitrogen [Mass/Vol] 32 mg/dL High [facility] CT ABDOMEN/PELVIS WITHOUT CO NTRASTon 02-25-2021 Radiology Study observation (narrative) [facility] CT PE STUDYon 02-25-2021 Radiology Study observation (narrative) [facility] HEPATIC FUNCTION PANELon Albumin [Mass/Vol] 3.9 g/dL [facility] ALP [Catalytic activity/Vol] 48 U/L [facility] ALT [Catalytic activity/Vol] 37 U/L [facility] AST [Catalytic activity/Vol] 31 U/L [facility] Bilirubin [Mass/Vol] 1.2 mg/dL [facility] Bilirubin.direct [Mass/Vol] 0.1 mg/dL [facility] Protein [Mass/Vol] 6.5 g/dL [facility] LIPASEon 02-25-2021 Lipase [Catalytic activity/Vol] 43 U/L 23 - 300 U/L [facility] No Panel Informationon 02-25 IMPRESSION: CHEST: 1. Negative for pulmonary embolism. [...] unchanged. 7. Additional incidental findings discussed above. RADIOLOGY EXAMINATION: CT ABDOMEN/PELVIS WITHOUT CONTRAST, CT PE STUDY, 02/25/2021 9:38 AM EDT HISTORY: Shortness of breath and productive cough , history of abdominal aortic aneurysm repair. COMPARISON: Chest CT 02/19/2021, 12/01/2020, 06/19/2020, 09/30/2019. CT of the abdomen and pelvis 02/18/2020 was reviewed. TECHNIQUE: CT scan of the abdomen and pelvis was performed without IV contrast. CT dose reduction technique was used, including Automated Exposure Control. FINDINGS: CHEST: There is no large, central, lobar, or segmental pulmonary embolism. The right, left, and main pulmonary arteries are normal caliber. There is atherosclerosis of a tortuous thoracic aorta without thoracic aortic aneurysm or dissection. Heart size is normal. There is no pericardial effusion. There are coronary artery calcifications and left-sided cardiac pacer device. There are small calcified mediastinal lymph nodes. Mildly enlarged right hilar lymph node (image 88 series 4) is 1.8 x 1.4 cm, unchanged from 12/01/2020. No other enlarged mediastinal or hilar lymph nodes. No axillary lymphadenopathy. There is a background of severe emphysema, with bullous changes worse at the lower lobes. There is breathing motion artifact, with small area of chronic atelectasis/scarring and mild bronchiectasis in the right middle lobe that is unchanged from 09/30/2019. There is peribronchial wall thickening in both lungs. There are some secretions filling the proximal right lower lobe and left lower lobe bronchioles. There is subsegmental atelectasis at both lower lobes. No new site of lung consolidation. No pleural effusion or pneumothorax. A triangle shaped noncalcified right lower lobe pulmonary nodule along the oblique fissure (image 107 series 5) measures 4 x 3 mm, unchanged from 09/30/2019 and compatible with a perifissural lymph node. A 6 x 3 mm noncalcified right upper lobe pulmonary nodule (image 44 series 5) is unchanged from 09/30/2019. There is also a dense but not definitely calcified 3 mm left upper lobe pulmonary nodule (image 79 series 5) that is also unchanged. There is a there are few tiny calcified lung granulomas. ABDOMEN AND PELVIS: Soft tissue structures in the abdomen and pelvis are poorly evaluated without intravenous contrast or oral contrast. Liver and spleen size are normal. No inflammation of gallbladder or pancreas. No radiopaque gallstones. There is no adrenal nodule. Kidneys are normal in size without perinephric stranding or hydronephrosis. There is no urinary calculus. Bladder is decompressed and not well evaluated but no bladder stone. Nonenlarged prostate gland. There is mild wall thickening of the decompressed stomach. Small bowel loops are of normal caliber. Moderate to large colonic stool burden particularly in the proximal colon. There is colonic diverticulosis. No gross bowel inflammation. There is a normal appendix (image 71 series 2). There is abdominal aortic and branch vessel atherosclerosis. Aortobiiliac stent graft is identified for treatment of abdominal aortic aneurysm, but without intravenous contrast, cannot evaluate for endoleak or graft patency. Maximum dimension of the abdominal aorta at 2.8 x 2.6 cm. 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 No free fluid or free air. There are degenerative changes of the spine with thoracolumbar scoliosis. No listhesis or compression fracture. [facility] Lizbeth Garza MD - 02/25/2021 EXAMINATION: CT ABDOMEN/PELVIS WITHOUT CONTRAST, CT PE STUDY, 02/25/2021 9:38 AM EDT HISTORY: Shortness of breath and productive cough , history of abdominal aortic aneurysm repair. COMPARISON: Chest CT 02/19/2021, 12/01/2020, 06/19/2020, 09/30/2019. CT of the abdomen and pelvis 02/18/2020 was reviewed. TECHNIQUE: CT scan of the abdomen and pelvis was performed without IV contrast. CT dose reduction technique was used, including Automated Exposure Control. FINDINGS: CHEST: There is no large, central, lobar, or segmental pulmonary embolism. The right, left, and main pulmonary arteries are normal caliber. There is atherosclerosis of a tortuous thoracic aorta without thoracic aortic aneurysm or dissection. Heart size is normal. There is no pericardial effusion. There are coronary artery calcifications and left-sided cardiac pacer device. There are small calcified mediastinal lymph nodes. Mildly enlarged right hilar lymph node (image 88 series 4) is 1.8 x 1.4 cm, unchanged from 12/01/2020. No other enlarged mediastinal or hilar lymph nodes. No axillary lymphadenopathy. There is a background of severe emphysema, with bullous changes worse at the lower lobes. There is breathing motion artifact, with small area of chronic atelectasis/scarring and mild bronchiectasis in the right middle lobe that is unchanged from 09/30/2019. There is peribronchial wall thickening in both lungs. There are some secretions filling the proximal right lower lobe and left lower lobe bronchioles. There is subsegmental atelectasis at both lower lobes. No new site of lung consolidation. No pleural effusion or pneumothorax. A triangle shaped noncalcified right lower lobe pulmonary nodule along the oblique fissure (image 107 series 5) measures 4 x 3 mm, unchanged from 09/30/2019 and compatible with a perifissural lymph node. A 6 x 3 mm noncalcified right upper lobe pulmonary nodule (image 44 series 5) is unchanged from 09/30/2019. There is also a dense but not definitely calcified 3 mm left upper lobe pulmonary nodule (image 79 series 5) that is also unchanged. There is a there are few tiny calcified lung granulomas. ABDOMEN AND PELVIS: Soft tissue structures in the abdomen and pelvis are poorly evaluated without intravenous contrast or oral contrast. Liver and spleen size are normal. No inflammation of gallbladder or pancreas. No radiopaque gallstones. There is no adrenal nodule. Kidneys are normal in size without perinephric stranding or hydronephrosis. There is no urinary calculus. Bladder is decompressed and not well evaluated but no bladder stone. Nonenlarged prostate gland. There is mild wall thickening of the decompressed stomach. Small bowel loops are of normal caliber. Moderate to large colonic stool burden particularly in the proximal colon. There is colonic diverticulosis. No gross bowel inflammation. There is a normal appendix (image 71 series 2). There is abdominal aortic and branch vessel atherosclerosis. Aortobiiliac stent graft is identified for treatment of abdominal aortic aneurysm, but without intravenous contrast, cannot evaluate for endoleak or graft patency. Maximum dimension of the abdominal aorta at 2.8 x 2.6 cm. 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 No free fluid or free air. There are degenerative changes of the spine with thoracolumbar scoliosis. No listhesis or compression fracture. IMPRESSION IMPRESSION: CHEST: 1. Negative for pulmonary embolism. [...] AND PELVIS: 1. Suboptimal examination of soft t (more content not included)... [facility] No Panel InformationOrdered By: Lizbeth Garza on 02-25-2021 [facility] Work Phone: PROTIME-INRon 02-25-2021 INR Coag (PPP) [Relative time] 1.08 {INR} [facility] Comment on above: 2.0-3.0 THERAPEUTIC RANGE 2.5-3.5 MECHANICAL VALVE RANGE PT Coag (PPP) [Time] 14.3 s [facility] SEDIMENTATION RATE, AUTOMATE Don 02-25-2021 ESR (Bld) [Velocity] 10 mm/h [facility] TROPONIN I, HIGH SENSITIVITY on 02-25-2021 TROPONIN I, HIGH SENSITIVITY 16 pg/mL 0 - 20 pg/mL [facility] Comment on above: Indeterminant: >12 to 100 pg/mL female >20 to 100 pg/mL male Indicative of myocardial injury. Serial sampling is recommended, a change of greater than or equal to 20 pg/mL is indicative of acute coronary syndrome. [facility] B-TYPE NATRIURETIC PEPTIDE ( BRAIN)on 02-19-2021 Interpretation and review of laboratory results Abnormal [facility] Natriuretic peptide B (Bld) [Mass/Vol] 280 pg/mL High 0 - 100 pg/mL [facility] C REACTIVE PROTEINon 021 CRP [Mass/Vol] 12.3 mg/L High 0 - 10.0 MG/L [facility] CBC, EDIF, PLATELETon 2020 ABSOLUTE BASOPHIL COUNT 0.0 10*3/uL 0.0 - 0.2 10*3/uL [facility] Basophils/100 WBC (Bld) 0.2 % 0.0 - 2.0 % [facility] Differential cell count method Nom (Bld) AUTO DIFF % [facility] Eosinophils (Bld) [#/Vol] 0.00 10*3/uL 0.0 - 0.7 10*3/uL [facility] Eosinophils/100 WBC (Bld) 0.0 % 0.0 - 11.0 % [facility] Erythrocyte distribution width (RBC) [Ratio] 15.7 % High 11.5 - 14.5 % [facility] Hematocrit (Bld) [Volume fraction] 35.4 % Low 42.0 - 52.0 % [facility] Hemoglobin (Bld) [Mass/Vol] 12.2 g/dL Low [facility] Interpretation and review of laboratory results Abnormal [facility] Lymphocytes (Bld) [#/Vol] 1.10 10*3/uL Low 1.2 - 3.4 10*3/uL [facility] Lymphocytes/100 WBC (Bld) 16.4 % Low 20.0 - 55.0 % [facility] MCH (RBC) [Entitic mass] 30.4 pg 26. 0 - 35.0 PG [facility] MCHC (RBC) [Mass/Vol] 34.5 g/dL [facility] MCV (RBC) [Entitic vol] 88.1 fL [facility] Monocytes (Bld) [#/Vol] 0.8 10*3/uL High 0.0 - 0.7 10*3/uL [facility] Monocytes/100 WBC (Bld) 12.7 % High 0.0 - 10.0 % [facility] Neutrophils (Bld) [#/Vol] 4.7 10*3/uL 1.4 - 6.5 10*3/uL [facility] Neutrophils/100 WBC (Bld) 70.7 % 37.0 - 75.0 % [facility] Platelet mean volume (Bld) [Entitic vol] 9.0 fL [facility] Platelets (Bld) [#/Vol] 184 10*3/uL 130. 0 - 400.0 10*3/uL [facility] RBC (Bld) [#/Vol] 4.01 10*6/uL 4.0 - 6.1 10*6/uL [facility] WBC (Bld) [#/Vol] 6.7 10*3/uL 3.6 - 11.0 10*3/uL [facility] COMPREHENSIVE METABOLIC PANE Luis Eduardo 02-19-2021 Albumin [Mass/Vol] 3.6 G/dl 3.5 - 5.0 G/dl [facility] Albumin/Globulin [Mass ratio] 1.2 {ratio} Low [facility] ALP [Catalytic activity/Vol] 56 U/L [facility] ALT [Catalytic activity/Vol] 18 U/L [facility] AST [Catalytic activity/Vol] 31 U/L [facility] Bilirubin [Mass/Vol] 0.5 mg/dL [facility] Calcium [Mass/Vol] 9.3 mg/dL [facility] Chloride [Moles/Vol] 102 mmol/L [facility] CO2 [Moles/Vol] 22 mmol/L [facility] Creatinine [Mass/Vol] 1.32 mg/dL High [facility] GFR COMMENT Average GFR for 70+ years old = 75. [facility] Comment on above: Chronic Kidney disea se, GFR = <60. Kidney failure, GFR = <15. The GFR estimate is not adjusted for extreme body surface area or acute process, nor has it been validated for women or ethnic groups other than and . GFR/1.73 sq M.predicted among blacks MDRD (S/P/Bld) [Vol rate/Area] mL/min/{1.73_m2} ml/min/1.73sq .m [facility] GFR/1.73 sq M.predicted among non-blacks MDRD (S/P/Bld) [Vol rate/Area] 56 mL/min/{1.73_m2} ml/min/1.73sq .m [facility] Glucose post fast [Mass/Vol] 103 mg/dL High [facility] Comment on above: NORMAL <100 mg/dL PREDIABETES 101-126 mg/dL DIABETES 126 mg/dL or higher Potassium [Moles/Vol] 4.0 mmol/L [facility] Protein [Mass/Vol] 6.7 g/dL [facility] Sodium [Moles/Vol] 140 mmol/L [facility] Urea nitrogen [Mass/Vol] 29 mg/dL High [facility] CT PE STUDYon 02-19-2021 IMPRESSION: 1. No evidence of pulmonary embolism. [...] reactive in nature. Follow-up as clinically warranted. RADIOLOGY CT CHEST WITH CONTRAST (CT Pulmonary Angiogram) CLINICAL: Increased shortness of breath. History of COPD. Covid positive COMPARISON: 12/01/2020 and 06/19/2020 TECHNIQUE: Thin section axial images were obtained from thoracic inlet to the diaphragms following the administration of intravenous contrast. CT angiographic reconstructions of the pulmonary arteries including multiple intensity projections in coronal and sagittal planes were performed. Dose reduction: mA and/or kV are were adjusted by automated exposure control software based upon patients height and weight. FINDINGS: Thoracic inlet and axillary structures are intact. Heart size is normal. No pericardial effusion. No mediastinal or hilar adenopathy by CT criteria. Thoracic aorta shows no gross abnormality, within limits of pulmonary CTA technique. Pulmonary arteries show no filling defect to indicate pulmonary embolism. Limited upper abdominal images to the level of the adrenals show no acute abnormality. Lung windows show no evidence of expansile pulmonary mass, focal infiltrate, regional consolidation, pleural effusion or pneumothorax. As previously, several small pulmonary nodules are identified, measuring 6 mm in the right upper lobe on series 4 image 39, stable, left upper lobe 5 mm, stable on image 75, right middle lobe measuring 6 mm on image 98, stable, and right lower lobe 4 mm image 122, stable. Parenchymal banding in the right middle lobe extending from the anterior hilar region is stable, as are additional linear pleural-based densities at the lung bases and mild peribronchial interstitial thickening at the infrahilar levels. Centrilobular emphysematous changes in the upper lobes are stable. No new or superimposed airspace infiltrate or consolidation. Crescentic pleural-based density medial right lung base is also stable. Osseous structures appear intact. [facility] Marquis Willingham MD - 02/19/2021 CT CHEST WITH CONTRAST (CT Pulmonary Angiogram) CLINICAL: Increased shortness of breath. History of COPD. Covid positive COMPARISON: 12/01/2020 and 06/19/2020 TECHNIQUE: Thin section axial images were obtained from thoracic inlet to the diaphragms following the administration of intravenous contrast. CT angiographic reconstructions of the pulmonary arteries including multiple intensity projections in coronal and sagittal planes were performed. Dose reduction: mA and/or kV are were adjusted by automated exposure control software based upon patients height and weight. FINDINGS: Thoracic inlet and axillary structures are intact. Heart size is normal. No pericardial effusion. No mediastinal or hilar adenopathy by CT criteria. Thoracic aorta shows no gross abnormality, within limits of pulmonary CTA technique. Pulmonary arteries show no filling defect to indicate pulmonary embolism. Limited upper abdominal images to the level of the adrenals show no acute abnormality. Lung windows show no evidence of expansile pulmonary mass, focal infiltrate, regional consolidation, pleural effusion or pneumothorax. As previously, several small pulmonary nodules are identified, measuring 6 mm in the right upper lobe on series 4 image 39, stable, left upper lobe 5 mm, stable on image 75, right middle lobe measuring 6 mm on image 98, stable, and right lower lobe 4 mm image 122, stable. Parenchymal banding in the right middle lobe extending from the anterior hilar region is stable, as are additional linear pleural-based densities at the lung bases and mild peribronchial interstitial thickening at the infrahilar levels. Centrilobular emphysematous changes in the upper lobes are stable. No new or superimposed airspace infiltrate or consolidation. Crescentic pleural-based density medial right lung base is also stable. Osseous structures appear intact. IMPRESSION IMPRESSION: 1. No evidence of pulmonary embolism. [...] reactive in nature. Follow-up as clinically warranted. [facility] Radiology Study observation (narrative) [facility] CT PE STUDYOrdered By: Marquis Willingham on 02-19-2021 [facility] Work Phone: LACTATE, BLOODon 02-19-2021 Interpretation and review of laboratory results Abnormal [facility] Lactate [Moles/Vol] 2.6 mmol/L Critically high [facility] Comment on above: PLEASE REPEAT INITIA L CRITICAL IN 3 HOURS IF ED OR INPATIENT SEPSIS PATIENT Result called to read back by: KIRK 02/19/2021 @ 10:[address] [facility] Interpretation and review of laboratory results Abnormal [facility] Lactate [Moles/Vol] 5.1 mmol/L Critically high [facility] Comment on above: PLEASE REPEAT INITIA L CRITICAL IN 3 HOURS IF ED OR INPATIENT SEPSIS PATIENT Result called to read back by: JOANIE 02/19/2021 @ 07:[address] [facility] MAGNESIUMon 02-19-2021 Magnesium [Mass/Vol] 2.6 mg/dL High [facility] No Panel Informationon 02-19 Interpretation and review of laboratory results Abnormal [facility] SEDIMENTATION RATE, AUTOMATE Don 02-19-2021 ESR (Bld) [Velocity] 20 mm/h [facility] TROPONIN I, HIGH SENSITIVITY on 02-19-2021 TROPONIN I, HIGH SENSITIVITY 10 pg/mL 0 - 20 pg/mL [facility] Comment on above: Indeterminant: >12 to 100 pg/mL female >20 to 100 pg/mL male Indicative of myocardial injury. Serial sampling is recommended, a change of greater than or equal to 20 pg/mL is indicative of acute coronary syndrome. [facility] CBC, EDIF, PLATELETon 2020 ABSOLUTE BASOPHIL COUNT 0.0 10*3/uL 0.0 - 0.2 10*3/uL [facility] Basophils/100 WBC (Bld) 0.7 % 0.0 - 2.0 % [facility] Differential cell count method Nom (Bld) AUTO DIFF % [facility] Eosinophils (Bld) [#/Vol] 0.00 10*3/uL 0.0 - 0.7 10*3/uL [facility] Eosinophils/100 WBC (Bld) 0.1 % 0.0 - 11.0 % [facility] Erythrocyte distribution width (RBC) [Ratio] 15.6 % High 11.5 - 14.5 % [facility] Hematocrit (Bld) [Volume fraction] 34.4 % Low 42.0 - 52.0 % [facility] Hemoglobin (Bld) [Mass/Vol] 11.8 g/dL Low [facility] Interpretation and review of laboratory results Abnormal [facility] Lymphocytes (Bld) [#/Vol] 0.30 10*3/uL Low 1.2 - 3.4 10*3/uL [facility] Lymphocytes/100 WBC (Bld) 12.3 % Low 20.0 - 55.0 % [facility] MCH (RBC) [Entitic mass] 30.5 pg 26. 0 - 35.0 PG [facility] MCHC (RBC) [Mass/Vol] 34.4 g/dL [facility] MCV (RBC) [Entitic vol] 88.8 fL [facility] Monocytes (Bld) [#/Vol] 0.4 10*3/uL 0.0 - 0.7 10*3/uL [facility] Monocytes/100 WBC (Bld) 16.2 % High 0.0 - 10.0 % [facility] Neutrophils (Bld) [#/Vol] 1.8 10*3/uL 1.4 - 6.5 10*3/uL [facility] Neutrophils/100 WBC (Bld) 70.7 % 37.0 - 75.0 % [facility] Platelet mean volume (Bld) [Entitic vol] 9.0 fL [facility] Platelets (Bld) [#/Vol] 134 10*3/uL 130. 0 - 400.0 10*3/uL [facility] RBC (Bld) [#/Vol] 3.88 10*6/uL Low 4.0 - 6.1 10*6/uL [facility] WBC (Bld) [#/Vol] 2.5 10*3/uL Low 3.6 - 11.0 10*3/uL [facility] CHEM 7 (LYTES,BUN,CREA,GLUC) on 02-15-2021 Chloride [Moles/Vol] 102 mmol/L [facility] CO2 [Moles/Vol] 25 mmol/L [facility] Creatinine [Mass/Vol] 1.56 mg/dL High [facility] GFR COMMENT Average GFR for 70+ years old = 75. [facility] Comment on above: Chronic Kidney disea se, GFR = <60. Kidney failure, GFR = <15. The GFR estimate is not adjusted for extreme body surface area or acute process, nor has it been validated for women or ethnic groups other than and . GFR/1.73 sq M.predicted among blacks MDRD (S/P/Bld) [Vol rate/Area] 56 mL/min/{1.73_m2} ml/min/1.73sq .m [facility] GFR/1.73 sq M.predicted among non-blacks MDRD (S/P/Bld) [Vol rate/Area] 46 mL/min/{1.73_m2} ml/min/1.73sq .m [facility] Glucose post fast [Mass/Vol] 91 mg/dL [facility] Comment on above: NORMAL <100 mg/dL PREDIABETES 101-126 mg/dL DIABETES 126 mg/dL or higher Potassium [Moles/Vol] 4.0 mmol/L [facility] Sodium [Moles/Vol] 136 mmol/L [facility] Urea nitrogen [Mass/Vol] 34 mg/dL High [facility] CT HEAD WITHOUT CONTRASTon 0 02-15-2021 IMPRESSION: 1. No interval change or acute intracranial abnormality. 2. Age-related minor cerebral cortical atrophy. [facility] EXAMINATION: CT HEAD WITHOUT CONTRAST HISTORY: Fatigue. COMPARISON: 06/06/2020. TECHNIQUE: CT examination of the head without IV contrast. Dose reduction techniques were achieved by using automated exposure control and/or adjustment of mA and/or kV according to patient size and/or use of iterative reconstruction technique. FINDINGS: The ventricular system is still small and symmetric. It is midline. There is no hemorrhage, mass, mass effect or midline shift. There is no subdural blood or fluid. Minimal vascular calcifications are seen. There is mild symmetrical generalized cerebral cortical atrophy. Bone windows show no unusual findings. [facility] Michelle Garcia, DO - 02/15/2021 EXAMINATION: CT HEAD WITHOUT CONTRAST HISTORY: Fatigue. COMPARISON: 06/06/2020. TECHNIQUE: CT examination of the head without IV contrast. Dose reduction techniques were achieved by using automated exposure control and/or adjustment of mA and/or kV according to patient size and/or use of iterative reconstruction technique. FINDINGS: The ventricular system is still small and symmetric. It is midline. There is no hemorrhage, mass, mass effect or midline shift. There is no subdural blood or fluid. Minimal vascular calcifications are seen. There is mild symmetrical generalized cerebral cortical atrophy. Bone windows show no unusual findings. IMPRESSION IMPRESSION: 1. No interval change or acute intracranial abnormality. 2. Age-related minor cerebral cortical atrophy. [facility] Radiology Study observation (narrative) [facility] HEPATIC FUNCTION PANELon Albumin [Mass/Vol] 3.6 g/dL [facility] ALP [Catalytic activity/Vol] 51 U/L [facility] ALT [Catalytic activity/Vol] 14 U/L Low [facility] AST [Catalytic activity/Vol] 24 U/L [facility] Bilirubin [Mass/Vol] 0.6 mg/dL [facility] Bilirubin.direct [Mass/Vol] 0.1 mg/dL [facility] Protein [Mass/Vol] 6.7 g/dL [facility] MAGNESIUMon 02-15-2021 Magnesium [Mass/Vol] 1.9 mg/dL [facility] No Panel Informationon 02-15 Interpretation and review of laboratory results Abnormal [facility] TROPONIN I, HIGH SENSITIVITY on 02-15-2021 TROPONIN I, HIGH SENSITIVITY 12 pg/mL 0 - 20 pg/mL [facility] Comment on above: Indeterminant: >12 to 100 pg/mL female >20 to 100 pg/mL male Indicative of myocardial injury. Serial sampling is recommended, a change of greater than or equal to 20 pg/mL is indicative of acute coronary syndrome. [facility] XR CHEST AP PORTABLEon 02-15 IMPRESSION: 1. Prominent pulmonary hyperinflation is again noted suggesting underlying emphysematous or COPD changes. 2. Left pectoral pacemaker. 3. No acute chest finding otherwise. RADIOLOGY EXAM: XR CHEST AP PORTABLE HISTORY: Fatigue. COMPARISON: 06/30/2020. TECHNIQUE: An AP erect portable view of the chest was obtained at 1337 hours. FINDINGS: The heart is slender. The trachea is midline. Aorta is minimally calcified. It is normal in caliber. There is no mediastinal or hilar pathology. There is a dual-lead left pectoral pacemaker. Lung dietz are prominently hyperinflated suggesting emphysematous changes. No acute infiltrate or other acute pulmonary pathology is otherwise seen. [facility] Michelle Garcia DO - 02/15/2021 EXAM: XR CHEST AP PORTABLE HISTORY: Fatigue. COMPARISON: 06/30/2020. TECHNIQUE: An AP erect portable view of the chest was obtained at 1337 hours. FINDINGS: The heart is slender. The trachea is midline. Aorta is minimally calcified. It is normal in caliber. There is no mediastinal or hilar pathology. There is a dual-lead left pectoral pacemaker. Lung dietz are prominently hyperinflated suggesting emphysematous changes. No acute infiltrate or other acute pulmonary pathology is otherwise seen. IMPRESSION IMPRESSION: 1. Prominent pulmonary hyperinflation is again noted suggesting underlying emphysematous or COPD changes. 2. Left pectoral pacemaker. 3. No acute chest finding otherwise. [facility] Radiology Study observation (narrative) [facility] XR CHEST AP PORTABLEOrdered By: Michelle Garcia on 02-15-2021 [facility] ECHOCARDIOGRAMOrdered By: Karan Lee on 01-01-2021 APPROVED REPORT Other Information Study Quality: Adequate Conclusion I'll LV cavity size with LVH, baseline atrial fibrillation with ejection fraction greater than 65%. Normal RV size and function. Trivial to mild tricuspid regurgitation with estimated PA pressure 31 mmHg. No significant pericardial abnormality. Study similar to that of 05/2020. Left Ventricle Left ventricular cavity is small. Left ventricular systolic function is normal. Mild concentric left ventricular hypertrophy. There is normal LV segmental wall motion. The diastolic function was indeterminate. LVEF is 65-70%. Right Ventricle The right ventricle is normal size. The right ventricular systolic function is normal. Pacemaker lead is present in the right ventricle. Atria The left atrium size is normal. Right atrium is borderline dilated. Aortic Valve The aortic valve is normal in structure. There is no aortic valvular stenosis. No aortic regurgitation is present. Mitral Valve The mitral valve is normal in structure. There is no mitral valve regurgitation noted. Tricuspid Valve The tricuspid valve is normal in structure. Trace to mild tricuspid regurgitation. Pulmonic Valve The pulmonary valve is normal in structure. Great Vessels The aortic root is normal in size. Pericardium There is no pericardial effusion. EXAM: Comprehensive 2D, Doppler, and color-flow Echocardiogram 2D Dimensions IVSd 1.6 cm M: 0.6-1.0 LVEF (White's) 58.47 % M: 52 - 72 PWd 1.2 cm M: 0.6 - 1.0 EF AP4-a2DQ 57.33 % LVDd 3.0 cm M: 4.2 - 5.8 EF AP2-a2DQ 56.18 % LVDs 2.05 cm M: 2.5 - 4.0 EF BP-a2DQ 58.47 % Ascending Aorta 3.13 cm M: 2.6 - 3.4 LVSV 23 mL Ascending Aorta Index: 1.6 cm/m2 LV Volume 56.30 mL M: 62 - 150 Left Atrium 2.70 cm M: 3.0 - 4.0 LV Volume Index 28.57 mL/m2 M: 34 - 74 LVOT 2.17 cm (M/F) 1.5-2.5 RV Major 3.58 cm RV Minor 6.96 cm RVIDd 2.76 cm (M/F) 2.5-4.1 Right Atrium 5.6 cm (M/F) 2.9-4.5 LV Diastology Septal E' 0.12 (<.07 m/s) LAT E' 0.18 (<.10 m/s) E/LAT E' Ratio 3.47 (>14) Aortic Valve LVOT Max 0.83 (0.7-1.1 m/s) LVOT VTI 14.70 cm AV DI 0.80 (>0.25) AoV Peak Chinmay. 1.08 (0.5-1.3 m/s) AV Vmean 0.76 m/s AO Peak GR. 4.64 mmHg AO Mean GR. 2.59 (<5 mmHg) AO VTI 18.2 (18-25 cm) CONRAD (VTI) 2.97 (2.5-4.5 cm2) Tricuspid Valve TR P. Velocity 2.66 m/s RAP Estimate 3 mmHg RVSP 31.20 mmHg TR maxPG 28.20 mmHg [facility] User, Interfaces - 01/01/2021 6:23 AM EDT APPROVED REPORT Other Information Study Quality: Adequate Conclusion I'll LV cavity size with LVH, baseline atrial fibrillation with ejection fraction greater than 65%. Normal RV size and function. Trivial to mild tricuspid regurgitation with estimated PA pressure 31 mmHg. No significant pericardial abnormality. Study similar to that of 05/2020. Left Ventricle Left ventricular cavity is small. Left ventricular systolic function is normal. Mild concentric left ventricular hypertrophy. There is normal LV segmental wall motion. The diastolic function was indeterminate. LVEF is 65-70%. Right Ventricle The right ventricle is normal size. The right ventricular systolic function is normal. Pacemaker lead is present in the right ventricle. Atria The left atrium size is normal. Right atrium is borderline dilated. Aortic Valve The aortic valve is normal in structure. There is no aortic valvular stenosis. No aortic regurgitation is present. Mitral Valve The mitral valve is normal in structure. There is no mitral valve regurgitation noted. Tricuspid Valve The tricuspid valve is normal in structure. Trace to mild tricuspid regurgitation. Pulmonic Valve The pulmonary valve is normal in structure. Great Vessels The aortic root is normal in size. Pericardium There is no pericardial effusion. EXAM: Comprehensive 2D, Doppler, and color-flow Echocardiogram 2D Dimensions IVSd 1.6 cm M: 0.6-1.0LVEF (White's)58.47 % M: 52 - 72 PWd 1.2 cm M: 0.6 - 1.0EF AP4-a2DQ57.33 % LVDd 3.0 cm M: 4.2 - 5.8EF AP2-a2DQ56.18 % LVDs 2.05 cm M: 2.5 - 4.0EF BP-a2DQ58.47 % Ascending Aorta 3.13 cm M: 2.6 - 3.7TOWS22 mL Ascending Aorta Index: 1.6 cm/m2LV Mxfotp57.30 mL M: 62 - 150 Left Atrium 2.70 cm M: 3.0 - 4.0LV Volume Index28.57 mL/m2 M: 34 - 74 LVOT2.17 cm (M/F) 1.5-2.5RV Major 3.58 cm RV Minor6.96 cm RVIDd2.76 cm (M/F) 2.5-4.1 Right Atrium 5.6 cm (M/F) 2.9-4.5 LV Diastology Septal E'0.12 (<.07 m/s)LAT E'0.18 (<.10 m/s) E/LAT E' Ratio3.47 (>14) Aortic Valve LVOT Max0.83 (0.7-1.1 m/s)LVOT VTI14.70 cm AV DI0.80 (>0.25)AoV Peak Chinmay.1.08 (0.5-1.3 m/s) AV Vmean 0.76 m/Madelaine Peak GR.4.64 mmHg AO Mean GR.2.59 (<5 mmHg)AO VTI18.2 (18-25 cm) CONRAD (VTI)2.97 (2.5-4.5 cm2) Tricuspid Valve TR P. Velocity2.66 m/sRAP Estimate3 mmHg RVSP31.20 mmHgTR maxPG 28.20 mmHg [facility] EXERCISE-6 MIN. WALKOrdered By: Eugene Lee on 12-31-2020 Eugene Eagle MD 12/31/2020 6:55 PM 75 y.o. male; Dx: COPD. - 12/31/2020 6MWT: on Room Air. - As per protocol, pt. walked for 6 minutes, for a distance of 800 ft (6MWD 243.8 m). - Baseline SpO2 at rest on room air: 98%. - Significant oxygen desaturation while walking: NO OR MILD; lowest spO2 91% at 2 min; post-test spO2 94%. - Dyspnea: SEVERE, highest Mod. [place] Dyspnea Scale Score: 10/10. IMP: Exercise limitation: YES. Required or Qualified for Oxygen Supplementation: NO. [facility] CBC, EDIF, PLATELETOrdered B y: Dave Espinal on 11-19-2020 ABSOLUTE BASOPHIL COUNT 0.1 10*3/uL 0.0 - 0.2 10*3/uL [facility] Basophils/100 WBC (Bld) 1.5 % 0.0 - 2.0 % [facility] Differential cell count method Nom (Bld) AUTO DIFF % [facility] Eosinophils (Bld) [#/Vol] 0.20 10*3/uL 0.0 - 0.7 10*3/uL [facility] Eosinophils/100 WBC (Bld) 4.8 % 0.0 - 11.0 % [facility] Erythrocyte distribution width (RBC) [Ratio] 15.2 % High 11.5 - 14.5 % [facility] Hematocrit (Bld) [Volume fraction] 36.0 % Low 42.0 - 52.0 % [facility] Hemoglobin (Bld) [Mass/Vol] 12.1 g/dL Low [facility] Interpretation and review of laboratory results Abnormal [facility] Lymphocytes (Bld) [#/Vol] 0.80 10*3/uL Low 1.2 - 3.4 10*3/uL [facility] Lymphocytes/100 WBC (Bld) 17.4 % Low 20.0 - 55.0 % [facility] MCH (RBC) [Entitic mass] 30.9 pg 26. 0 - 35.0 PG [facility] MCHC (RBC) [Mass/Vol] 33.5 g/dL [facility] MCV (RBC) [Entitic vol] 92.1 fL A [facility] Monocytes (Bld) [#/Vol] 0.4 10*3/uL 0.0 - 0.7 10*3/uL [facility] Monocytes/100 WBC (Bld) 7.8 % 0.0 - 10.0 % [facility] Neutrophils (Bld) [#/Vol] 3.3 10*3/uL 1.4 - 6.5 10*3/uL [facility] Neutrophils/100 WBC (Bld) 68.5 % 37.0 - 75.0 % [facility] Platelet mean volume (Bld) [Entitic vol] 8.2 fL [facility] Platelets (Bld) [#/Vol] 176 10*3/uL 130. 0 - 400.0 10*3/uL [facility] RBC (Bld) [#/Vol] 3.91 10*6/uL Low 4.0 - 6.1 10*6/uL [facility] WBC (Bld) [#/Vol] 4.9 10*3/uL 3.6 - 11.0 10*3/uL [facility] CHEM 7 (LYTES,BUN,CREA,GLUC) Ordered By: Dave Espinal on 11-19-2020 Chloride [Moles/Vol] 102 mmol/L [facility] CO2 [Moles/Vol] 28 mmol/L [facility] Creatinine [Mass/Vol] 1.16 mg/dL [facility] GFR COMMENT Average GFR for 70+ years old = 75. [facility] Comment on above: Chronic Kidney disea se, GFR = <60. Kidney failure, GFR = <15. The GFR estimate is not adjusted for extreme body surface area or acute process, nor has it been validated for women or ethnic groups other than and . GFR/1.73 sq M.predicted among blacks MDRD (S/P/Bld) [Vol rate/Area] mL/min/{1.73_m2} ml/min/1.73sq .[facility] GFR/1.73 sq M.predicted among non-blacks MDRD (S/P/Bld) [Vol rate/Area] mL/min/{1.73_m2} ml/min/1.73sq .[facility] Glucose post fast [Mass/Vol] 108 mg/dL High [facility] Comment on above: NORMAL <100 mg/dL PREDIABETES 101-126 mg/dL DIABETES 126 mg/dL or higher Interpretation and review of laboratory results Abnormal [facility] Potassium [Moles/Vol] 4.4 mmol/L [facility] Sodium [Moles/Vol] 138 mmol/L [facility] Urea nitrogen [Mass/Vol] 25 mg/dL High [facility] PROTIME-INROrdered By: Angela Espinal on 11-19-2020 INR Coag (PPP) [Relative time] 0.98 {INR} [facility] Comment on above: 2.0-3.0 THERAPEUTIC RANGE 2.5-3.5 MECHANICAL VALVE RANGE PT Coag (PPP) [Time] 13.2 s [facility] PTTOrdered By: Dave Espinal on 11-19-2020 aPTT Coag (Bld) [Time] 31.0 s [facility] Comment on above: CARDIAC AND PE/DVT THERAPUTIC RANGE 69-97 SEC VASCULAR/THREATENED LIMB THERAPUTIC RANGE 80-112 SEC [facility] TROPONIN I, HIGH SENSITIVITY Ordered By: Dave Espinal on 11-19-2020 TROPONIN I, HIGH SENSITIVITY 5 pg/mL 0 - 20 pg/mL [facility] Comment on above: Indeterminant: >12 to 100 pg/mL female >20 to 100 pg/mL male Indicative of myocardial injury. Serial sampling is recommended, a change of greater than or equal to 20 pg/mL is indicative of acute coronary syndrome. [facility] XR CHEST PA AND LATERALOrder ed By: Dave Espinal on 11-19-2020 IMPRESSION: No active disease in the chest [facility] EXAM: XR CHEST PA AND LATERAL REASON FOR EXAM: Shortness of breath. TECHNIQUE: Two-view chest. COMPARISON: 05/03/2020. FINDINGS: Stable left anterior chest wall pacemaker. Lungs are hyperinflated, otherwise clear. Heart size is normal. No pleural effusion or pneumothorax. Osseous structures are without acute abnormality. [facility] User, Interfaces - 11/19/2020 8:19 AM EDT EXAM: XR CHEST PA AND LATERAL REASON FOR EXAM: Shortness of breath. TECHNIQUE: Two-view chest. COMPARISON: 05/03/2020. FINDINGS: Stable left anterior chest wall pacemaker. Lungs are hyperinflated, otherwise clear. Heart size is normal. No pleural effusion or pneumothorax. Osseous structures are without acute abnormality. IMPRESSION IMPRESSION: No active disease in the chest [facility] BASIC METABOLIC PANELon 12- Anion gap [Moles/Vol] 12 mmol/L [facility] Calcium [Mass/Vol] 9.2 mg/dL [facility] Chloride [Moles/Vol] 106 mmol/L [facility] CO2 [Moles/Vol] 22 mmol/L [facility] Creatinine [Mass/Vol] 1.24 mg/dL [facility] GFR/1.73 sq M predicted among blacks MDRD (S/P/Bld) [Vol rate/Area] mL/min/{1.73_m2} ml/min/1.73sq .m [facility] GFR/1.73 sq M predicted among non-blacks MDRD (S/P/Bld) [Vol rate/Area] mL/min/{1.73_m2} ml/min/1.73sq .m [facility] GFR/1.73 sq M predicted among non-blacks MDRD (S/P/Bld) [Vol rate/Area] Average GFR for 70+ years old = 75. [facility] Comment on above: Chronic Kidney disea se, GFR = <60. Kidney failure, GFR = <15. The GFR estimate is not adjusted for extreme body surface area or acute process, nor has it been validated for women or ethnic groups other than and . Glucose post fast [Mass/Vol] 113 mg/dL High [facility] Comment on above: NORMAL <100 mg/dL PREDIABETES 101-126 mg/dL DIABETES 126 mg/dL or higher Interpretation and review of laboratory results Abnormal [facility] Potassium [Moles/Vol] 3.9 mmol/L [facility] Sodium [Moles/Vol] 140 mmol/L [facility] Urea nitrogen [Mass/Vol] 29 mg/dL High [facility] CBC, EDIF, PLATELETon 2019 ABSOLUTE BASOPHIL COUNT 0.2 10*3/uL 0 - 0.2 10*3/uL [facility] Basophils/100 WBC (Bld) 2.3 % High 0 - 2 % A [facility] Differential cell count method Nom (Bld) AUTO DIFF % [facility] Eosinophils (Bld) [#/Vol] 0.40 10*3/uL 0 - 0.7 10*3/uL [facility] Eosinophils/100 WBC (Bld) 5.7 % 0 - 11 % [facility] Erythrocyte distribution width (RBC) [Ratio] 15.6 % High 11.5 - 14.5 % [facility] Hematocrit (Bld) [Volume fraction] 38.1 % Low 42 - 52 % [facility] Hemoglobin (Bld) [Mass/Vol] 12.8 g/dL Low [facility] Interpretation and review of laboratory results Abnormal [facility] Lymphocytes (Bld) [#/Vol] 1.10 10*3/uL Low 1.2 - 3.4 10*3/uL [facility] Lymphocytes/100 WBC (Bld) 16.0 % Low 20 - 55 % [facility] MCH (RBC) [Entitic mass] 31.4 pg 26 - 35 PG [facility] MCHC (RBC) [Mass/Vol] 33.5 g/dL [facility] MCV (RBC) [Entitic vol] 93.8 fL [facility] Monocytes (Bld) [#/Vol] 0.6 10*3/uL 0 - 0.7 10*3/uL [facility] Monocytes/100 WBC (Bld) 8.5 % 0 - 10 % [facility] Neutrophils (Bld) [#/Vol] 4.6 10*3/uL 1.4 - 6.5 10*3/uL [facility] Neutrophils/100 WBC (Bld) 67.5 % 37 - 75 % [facility] Platelet mean volume (Bld) [Entitic vol] 8.3 fL [facility] Platelets (Bld) [#/Vol] 194 10*3/uL 130 - 400 10*3/uL [facility] RBC (Bld) [#/Vol] 4.06 10*6/uL 4 - 6.1 10*6/uL [facility] WBC (Bld) [#/Vol] 6.9 10*3/uL 3.6 - 11 10*3/uL [facility] PROTIME-INRon 06-30-2020 INR Coag (PPP) [Relative time] 0.94 {INR} [facility] Comment on above: 2.0-3.0 THERAPEUTIC RANGE 2.5-3.5 MECHANICAL VALVE RANGE PT Coag (PPP) [Time] 12.3 s [facility] PTTon 06-30-2020 aPTT Coag (Bld) [Time] 29.6 s [facility] Comment on above: CARDIAC AND PE/DVT THERAPUTIC RANGE 69-97 SEC VASCULAR/THREATENED LIMB THERAPUTIC RANGE 80-112 SEC TROPONIN I, HIGH SENSITIVITY on 06-30-2020 TROPONIN I, HIGH SENSITIVITY 5 pg/mL 0 - 20 pg/mL [facility] Comment on above: Indeterminant: >12 to 100 pg/mL female >20 to 100 pg/mL male Indicative of myocardial injury. Serial sampling is recommended, a change of greater than or equal to 20 pg/mL is indicative of acute coronary syndrome. XR CHEST AP PORTABLEon 06-30 User, Interfaces - 06/30/2020 2:44 AM EST EXAM: XR CHEST AP PORTABLE HISTORY: chest pain 75-year-old male COMPARISON: Chest x-ray dated 06/19/2020. TECHNIQUE: Erect AP portable view of the chest. FINDINGS: Hyperinflation.. No consolidation. No pneumothorax. No effusion. Cardiac silhouette within normal limits. Jonah and mediastinum within normal limits. Bony structures within normal limits. Pacemaker with battery pack on the left. IMPRESSION IMPRESSION: 1. Hyperinflation. No consolidation. [employer] EXAM: XR CHEST AP PORTABLE HISTORY: chest pain 75-year-old male COMPARISON: Chest x-ray dated 06/19/2020. TECHNIQUE: Erect AP portable view of the chest. FINDINGS: Hyperinflation.. No consolidation. No pneumothorax. No effusion. Cardiac silhouette within normal limits. Jonah and mediastinum within normal limits. Bony structures within normal limits. Pacemaker with battery pack on the left. [employer] IMPRESSION: 1. Hyperinflation. No consolidation. [facility] ECHOCARDIOGRAM PHARMACOLOGIC AL STRESS TESTon 06-20-2020 APPROVED REPORT EXAM: Dobutamine Stress Echo Conclusion A maximal Dobutamine stress echocardiogram with no syptomatic nor echocardiographic evidence of coronary artery ischemia. Intermittent atrial and ventricular pacing, and periods of sinus tachycardia. The pacemaker precluded a definitive ECG assessment of coronary artery ischemia. Paradoxical septal wall motion due to the presence of the pacemaker lead. A preserved LV EF 60-65% at rest and >70% with stress. Echo Findings The Pre-Stress Echocardiogram showed normal left ventricular contractility with an estimated Ejection Fraction of about 60-65%. Paradoxical septal wall motion due to the presence of the pacemaker lead. The Post-Stress Echocardiogram showed normal left ventricular contractility with an estimated Ejection Fraction of about >70%. Normal left ventricular size and function with no regional wall motion abnormalities. Other Information Study Quality: Good Echo Procedure The patient underwent a Pharmacological Stress Test using Dobutamine. Blood pressure, heart rate, and EKG were monitored. An Echocardiogram was performed by field support technician in four stages in quad fashion. At peak stress, four selected images were obtained and placed side by side with resting images for comparison. Stress Test Details Test: dobutamine stress echo Reason for pharmacologic stress test: physical limitation. HR Resting HR: 60 bpm Max Heart Rate (APMHR): 146 bpm Max HR Achieved: 129 bpm Target HR (85% APMHR): 124 bpm % of APMHR: 88 Recovery HR: 83 bpm HR response to stress: normal response to Dobutamine and Atropine BP Resting BP: 154/89 mmHg Max BP: 159/86 mmHg BP response to stress: normal response to dobutamine ECG Resting EC% atrial paced, 100% ventricular paced Stress ECG: Intermittent atrial and ventricular pacing, periods of sinus tachycardia. ST Change: pacemaker precluded a defenitive assessment of ischemia Maximum ST Deviation: 0 mm Arrhythmia: intermittent atrial and ventricular pacing, sinus tachycardia Recovery ECG: Sinus rhythm and paced beats. Recovery ST Change: Nondiagnostic V-pacing or LBBB Recovery Arrhythmia: None Medications Administered Dobutamine ( mg at ) Atropine ( mg at ) Lopressor ( mg at ) Clinical Reason for Termination: Reached Target HR Stress Symptoms: None Scale: Sedentary Angina Score: None [facility] User, Interfaces - 06/20/2020 3:45 PM EST APPROVED REPORT EXAM: Dobutamine Stress Echo Conclusion A maximal Dobutamine stress echocardiogram with no syptomatic nor echocardiographic evidence of coronary artery ischemia. Intermittent atrial and ventricular pacing, and periods of sinus tachycardia. The pacemaker precluded a definitive ECG assessment of coronary artery ischemia. Paradoxical septal wall motion due to the presence of the pacemaker lead. A preserved LV EF 60-65% at rest and >70% with stress. Echo Findings The Pre-Stress Echocardiogram showed normal left ventricular contractility with an estimated Ejection Fraction of about 60-65%. Paradoxical septal wall motion due to the presence of the pacemaker lead. The Post-Stress Echocardiogram showed normal left ventricular contractility with an estimated Ejection Fraction of about >70%. Normal left ventricular size and function with no regional wall motion abnormalities. Other Information Study Quality: Good Echo Procedure The patient underwent a Pharmacological Stress Test using Dobutamine. Blood pressure, heart rate, and EKG were monitored. An Echocardiogram was performed by field support technician in four stages in quad fashion. At peak stress, four selected images were obtained and placed side by side with resting images for comparison. Stress Test Details Test: dobutamine stress echo Reason for pharmacologic stress test: physical limitation. HR Resting HR: 60 bpmMax Heart Rate (APMHR): 146 bpm Max HR Achieved: 129 bpmTarget HR (85% APMHR): 124 bpm % of APMHR: 88 Recovery HR: 83 bpm HR response to stress: normal response to Dobutamine and Atropine BP Resting BP: 154/89 mmHg Max BP: 159/86 mmHg BP response to stress: normal response to dobutamine ECG Resting EC% atrial paced, 100% ventricular paced Stress ECG: Intermittent atrial and ventricular pacing, periods of sinus tachycardia. ST Change: pacemaker precluded a defenitive assessment of ischemia Maximum ST Deviation: 0 mm Arrhythmia: intermittent atrial and ventricular pacing, sinus tachycardia Recovery ECG: Sinus rhythm and paced beats. Recovery ST Change: Nondiagnostic V-pacing or LBBB Recovery Arrhythmia: None Medications Administered Dobutamine ( mg at ) Atropine ( mg at )Lopressor ( mg at ) Clinical Reason for Termination: Reached Target HR Stress Symptoms: None Scale: Sedentary Angina Score: None [facility] C REACTIVE PROTEINon 020 CRP [Mass/Vol] 9.0 mg/L 0 - 10 MG/L [email or web address] CBC, EDIF, PLATELETon 2019 ABSOLUTE BASOPHIL COUNT 0.1 10*3/uL 0 - 0.2 10*3/uL [email or web address] Basophils/100 WBC (Bld) 1.4 % 0 - 2 % A [facility] Differential cell count method Nom (Bld) AUTO DIFF % [facility] Eosinophils (Bld) [#/Vol] 0.20 10*3/uL 0 - 0.7 10*3/uL [facility] Eosinophils/100 WBC (Bld) 3.8 % 0 - 11 % [facility] Erythrocyte distribution width (RBC) [Ratio] 15.1 % High 11.5 - 14.5 % [email or web address] Hematocrit (Bld) [Volume fraction] 36.1 % Low 42 - 52 % [facility] Hemoglobin (Bld) [Mass/Vol] 12.2 g/dL Low [facility] Interpretation and review of laboratory results Abnormal [facility] Lymphocytes (Bld) [#/Vol] 0.80 10*3/uL Low 1.2 - 3.4 10*3/uL [facility] Lymphocytes/100 WBC (Bld) 13.3 % Low 20 - 55 % [facility] MCH (RBC) [Entitic mass] 31.7 pg 26 - 35 PG [facility] MCHC (RBC) [Mass/Vol] 33.7 g/dL [facility] MCV (RBC) [Entitic vol] 94.0 fL A [facility] Monocytes (Bld) [#/Vol] 0.5 10*3/uL 0 - 0.7 10*3/uL [facility] Monocytes/100 WBC (Bld) 7.7 % 0 - 10 % A [facility] Neutrophils (Bld) [#/Vol] 4.7 10*3/uL 1.4 - 6.5 10*3/uL [facility] Neutrophils/100 WBC (Bld) 73.8 % 37 - 75 % [facility] Platelet mean volume (Bld) [Entitic vol] 8.2 fL [facility] Platelets (Bld) [#/Vol] 173 10*3/uL 130 - 400 10*3/uL [facility] RBC (Bld) [#/Vol] 3.84 10*6/uL Low 4 - 6.1 10*6/uL [facility] WBC (Bld) [#/Vol] 6.3 10*3/uL 3.6 - 11 10*3/uL [facility] COMPREHENSIVE METABOLIC PANE Luis Eduardo 06-19-2020 Albumin [Mass/Vol] 4.1 G/dl 3.5 - 5 G/dl [facility] Albumin/Globulin [Mass ratio] 1.4 {ratio} [facility] ALP [Catalytic activity/Vol] 62 U/L [facility] ALT [Catalytic activity/Vol] 11 U/L Low [facility] AST [Catalytic activity/Vol] 15 U/L [facility] Bilirubin [Mass/Vol] 0.7 mg/dL [facility] Calcium [Mass/Vol] 9.5 mg/dL [facility] Chloride [Moles/Vol] 106 mmol/L [facility] CO2 [Moles/Vol] 26 mmol/L [facility] Creatinine [Mass/Vol] 1.30 mg/dL High [facility] GFR/1.73 sq M predicted among blacks MDRD (S/P/Bld) [Vol rate/Area] mL/min/{1.73_m2} ml/min/1.73sq .m [facility] GFR/1.73 sq M predicted among non-blacks MDRD (S/P/Bld) [Vol rate/Area] 57 mL/min/{1.73_m2} ml/min/1.73sq .m [facility] GFR/1.73 sq M predicted among non-blacks MDRD (S/P/Bld) [Vol rate/Area] Average GFR for 70+ years old = 75. [facility] Comment on above: Chronic Kidney disea se, GFR = <60. Kidney failure, GFR = <15. The GFR estimate is not adjusted for extreme body surface area or acute process, nor has it been validated for women or ethnic groups other than and . Glucose post fast [Mass/Vol] 102 mg/dL High [facility] Comment on above: NORMAL <100 mg/dL PREDIABETES 101-126 mg/dL DIABETES 126 mg/dL or higher Interpretation and review of laboratory results Abnormal [facility] Potassium [Moles/Vol] 4.5 mmol/L [email or web address]. [facility] Protein [Mass/Vol] 7.0 g/dL [facility] Sodium [Moles/Vol] 139 mmol/L [facility] Urea nitrogen [Mass/Vol] 30 mg/dL [facility] CT PE STUDYon 06-19-2020 User, Interfaces - 06/19/2020 11:44 AM EST EXAMINATION: CT PE STUDY HISTORY: Chest pain with elevated d-dimer, intermediate clinical suspicion. COMPARISON: Portable chest x-ray performed earlier the same day TECHNIQUE: CT angiography of the pulmonary arteries following the administration of 75 mL Visipaque intravenous contrast. Coronal and sagittal MIP (maximum intensity projection) images were performed. Dose reduction techniques were achieved by using automated exposure control and/or adjustment of mA and/or kV according to patient size and/or use of iterative reconstruction technique. The timing of bolus is ideal. There is some breathing motion artifact. FINDINGS: There are no filling defects to suggest pulmonary embolism. Central pulmonary vessels are not distended. The heart is mildly enlarged, especially the right side of the heart. The aorta has a normal course. There is scattered calcified plaque in the aorta and coronary arteries. The proximal descending thoracic aorta measures just over 3 cm. There is no mass or pathologic adenopathy mediastinum or jonah. The lungs are hyperinflated and show changes of centrilobular emphysema. There is scar versus atelectasis in the right middle lobe and in both lung bases. There are no suspicious masses or nodules in the lungs. No endobronchial or endotracheal lesions are seen. Limited evaluation of the upper abdomen shows a portion of an aortobiiliac stent graft. The upper abdomen is otherwise grossly unremarkable. No suspicious or destructive bone lesions are seen. IMPRESSION IMPRESSION: Negative for pulmonary embolism. No evidence of an acute process in the lungs. Changes of COPD and centrilobular emphysema. Mild cardiomegaly with atherosclerotic disease and coronary artery disease. 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 [facility] IMPRESSION: Negative for pulmonary embolism. No evidence of an acute process in the lungs. Changes of COPD and centrilobular emphysema. Mild cardiomegaly with atherosclerotic disease and coronary artery disease. 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 [facility] EXAMINATION: CT PE STUDY HISTORY: Chest pain with elevated d-dimer, intermediate clinical suspicion. COMPARISON: Portable chest x-ray performed earlier the same day TECHNIQUE: CT angiography of the pulmonary arteries following the administration of 75 mL Visipaque intravenous contrast. Coronal and sagittal MIP (maximum intensity projection) images were performed. Dose reduction techniques were achieved by using automated exposure control and/or adjustment of mA and/or kV according to patient size and/or use of iterative reconstruction technique. The timing of bolus is ideal. There is some breathing motion artifact. FINDINGS: There are no filling defects to suggest pulmonary embolism. Central pulmonary vessels are not distended. The heart is mildly enlarged, especially the right side of the heart. The aorta has a normal course. There is scattered calcified plaque in the aorta and coronary arteries. The proximal descending thoracic aorta measures just over 3 cm. There is no mass or pathologic adenopathy mediastinum or jonah. The lungs are hyperinflated and show changes of centrilobular emphysema. There is scar versus atelectasis in the right middle lobe and in both lung bases. There are no suspicious masses or nodules in the lungs. No endobronchial or endotracheal lesions are seen. Limited evaluation of the upper abdomen shows a portion of an aortobiiliac stent graft. The upper abdomen is otherwise grossly unremarkable. No suspicious or destructive bone lesions are seen. [facility] D-DIMER,QUANTITATIVEon 06-19 Fibrin D-dimer FEU (PPP) [Mass/Vol] 1.39 Critically high <0.56 mg/L FEU [facility] Comment on above: If result is greater than the cutoff value of 0.5 mg/L then the potential for PE or DVT exists. Other conditions exist which may cause a falsely elevated level. Please correlate clinically, including radiological findings and other clinical parameters. Result called to read back by: Lula GARZA 06/19/2020 @ 10:39 by [facility] Interpretation and review of laboratory results Abnormal [facility] NOVEL CORONAVIRUS LAB 1 - NA SOPHARYNGEALon 06-19-2020 NARRATIVE -1 This test was performed using isothermal CHADD and has been approved as Emergency Use Authorization (EUA) for the qualitative detection [id number] nucleic acid. [facility] SARS COV 2 RNA, QL REAL TIME RT PCR NOT DETECTED NOT DETECTED [facility] Comment on above: Negative results do not preclude SARS-CoV-2 infection and should not be used as the sole basis for treatment or other patient management decisions. Optimum specimen types and timing for peak viral levels during infections caused by SARS-CoV-2 has not been determined. The possibility of a false negative result should especially be considered if the patient's recent exposures or clinical presentation suggest that SARS-CoV-2 infection is probable, and diagnostic tests for other causes of illness (e.g., other respiratory illness) are negative. Collection of a new specimen and re-testing may be necessary if the patient is critically ill or clinically deteriorating. SEDIMENTATION RATE, AUTOMATE Don 06-19-2020 ESR (Bld) [Velocity] 18 mm/h [employer] TROPONIN I, HIGH SENSITIVITY on 06-19-2020 TROPONIN I, HIGH SENSITIVITY 4 pg/mL 0 - 20 pg/mL [facility] Comment on above: Indeterminant: >12 to 100 pg/mL female >20 to 100 pg/mL male Indicative of myocardial injury. Serial sampling is recommended, a change of greater than or equal to 20 pg/mL is indicative of acute coronary syndrome. XR CHEST AP PORTABLEon 06-19 IMPRESSION: Mild bilateral lower lung subsegmental atelectasis. Otherwise, no acute process identified. [email or web address] EXAM: XR CHEST AP PORTABLE HISTORY: Chest pain. COMPARISON: May 03, 2020. TECHNIQUE: Portable erect view of the chest on 2 films. FINDINGS: Cardiac silhouette and mediastinal contours are stable. A dual-lead left pectoral transvenous pacer in place. There are several mildly increased linear type markings in both lung bases consistent with subsegmental atelectasis. No airspace consolidation, pneumothorax, or sizable pleural effusion. [employer] User, Interfaces - 06/19/2020 2:12 PM EST EXAM: XR CHEST AP PORTABLE HISTORY: Chest pain. COMPARISON: May 03, 2020. TECHNIQUE: Portable erect view of the chest on 2 films. FINDINGS: Cardiac silhouette and mediastinal contours are stable. A dual-lead left pectoral transvenous pacer in place. There are several mildly increased linear type markings in both lung bases consistent with subsegmental atelectasis. No airspace consolidation, pneumothorax, or sizable pleural effusion. IMPRESSION IMPRESSION: Mild bilateral lower lung subsegmental atelectasis. Otherwise, no acute process identified. [facility] AMMONIAon 06-06-2020 Ammonia (P) [Mass/Vol] 20 ug/dL [facility] CBC, EDIF, PLATELETon 2019 ABSOLUTE BASOPHIL COUNT 0.1 10*3/uL 0 - 0.2 10*3/uL [facility] Basophils/100 WBC (Bld) 1.6 % 0 - 2 % A [employer] Differential cell count method Nom (Bld) AUTO DIFF % [facility] Eosinophils (Bld) [#/Vol] 0.10 10*3/uL 0 - 0.7 10*3/uL [facility] Eosinophils/100 WBC (Bld) 2.8 % 0 - 11 % [facility] Erythrocyte distribution width (RBC) [Ratio] 15.7 % High 11.5 - 14.5 % [facility] Hematocrit (Bld) [Volume fraction] 38.0 % Low 42 - 52 % [facility] Hemoglobin (Bld) [Mass/Vol] 12.7 g/dL Low [facility] Interpretation and review of laboratory results Abnormal [facility] Lymphocytes (Bld) [#/Vol] 0.90 10*3/uL Low 1.2 - 3.4 10*3/uL [facility] Lymphocytes/100 WBC (Bld) 17.8 % Low 20 - 55 % [facility] MCH (RBC) [Entitic mass] 31.2 pg 26 - 35 PG [facility] MCHC (RBC) [Mass/Vol] 33.3 g/dL [facility] MCV (RBC) [Entitic vol] 93.6 fL A [facility] Monocytes (Bld) [#/Vol] 0.4 10*3/uL 0 - 0.7 10*3/uL [facility] Monocytes/100 WBC (Bld) 7.3 % 0 - 10 % A [facility] Neutrophils (Bld) [#/Vol] 3.4 10*3/uL 1.4 - 6.5 10*3/uL [facility] Neutrophils/100 WBC (Bld) 70.5 % 37 - 75 % [facility] Platelet mean volume (Bld) [Entitic vol] 8.0 fL [facility] Platelets (Bld) [#/Vol] 184 10*3/uL 130 - 400 10*3/uL [facility] RBC (Bld) [#/Vol] 4.06 10*6/uL 4 - 6.1 10*6/uL [facility] WBC (Bld) [#/Vol] 4.9 10*3/uL 3.6 - 11 10*3/uL [facility] CHEM 7 (LYTES,BUN,CREA,GLUC) on 06-06-2020 Chloride [Moles/Vol] 106 mmol/L [facility] CO2 [Moles/Vol] 27 mmol/L [facility] Creatinine [Mass/Vol] 1.19 mg/dL [facility] GFR/1.73 sq M predicted among blacks MDRD (S/P/Bld) [Vol rate/Area] mL/min/{1.73_m2} ml/min/1.73sq .m [facility] GFR/1.73 sq M predicted among non-blacks MDRD (S/P/Bld) [Vol rate/Area] Average GFR for 70+ years old = 75. [facility] Comment on above: Chronic Kidney disea se, GFR = <60. Kidney failure, GFR = <15. The GFR estimate is not adjusted for extreme body surface area or acute process, nor has it been validated for women or ethnic groups other than and . GFR/1.73 sq M predicted among non-blacks MDRD (S/P/Bld) [Vol rate/Area] mL/min/{1.73_m2} ml/min/1.73sq .m [facility] Glucose post fast [Mass/Vol] 88 mg/dL [facility] Comment on above: NORMAL <100 mg/dL PREDIABETES 101-126 mg/dL DIABETES 126 mg/dL or higher Interpretation and review of laboratory results Abnormal [employer] Potassium [Moles/Vol] 4.2 mmol/L [employer] Sodium [Moles/Vol] 141 mmol/L [facility] Urea nitrogen [Mass/Vol] 25 mg/dL High [facility] HEAD WITHOUT CONTRASTon 1 08-06-2019 EXAMINATION: CT HEAD WITHOUT CONTRAST HISTORY: Seizure. [...] and the visualized paranasal sinuses are clear. [facility] IMPRESSION: Unremarkable unenhanced brain CT. [facility] User, Interfaces - 06/06/2020 1:41 PM EST EXAMINATION: CT HEAD WITHOUT CONTRAST HISTORY: Seizure. [...] clear. IMPRESSION IMPRESSION: Unremarkable unenhanced brain CT. [facility] Otheron 06-06-2020 Interpretation and review of laboratory results Abnormal [facility] TOXICOLOGY DRUG SCREEN, URIN Robert 06-06-2020 Amphetamine (U) [Mass/Vol] Negative NEGATIVE NG/ML [facility] Comment on above: <500 ng/ml CUTOFF Barbiturates Screen Ql (U) Negative NEGATIVE NG/ML [facility] Comment on above: <200 ng/ml CUTOFF Benzodiazepines Ql (U) Negative NEGAT UVALDO NG/ML [facility] Comment on above: <150 ng/ml CUTOFF Benzoylecgonine Ql (U) Negative NEGAT UVALDO NG/ML [facility] Comment on above: <150 ng/ml CUTOFF Buprenorphine Ql (U) Negative NEGATIV E NG/ML [facility] Comment on above: <10 ng/ml CUTOFF Cannabinoids Screen Ql (U) Negative NEGATIVE NG/ML [facility] Comment on above: <50 ng/ml CUTOFF Methadone Screen Ql (U) Negative NEGA TIVE NG/ML [facility] Comment on above: <200 ng/ml CUTOFF Methamphetamine (U) [Mass/Vol] Negative NEGATIVE NG/ML [facility] Comment on above: <500 ng/ml CUTOFF Opiates Screen Ql (U) Negative NEGATI VE NG/ML [facility] Comment on above: <100 ng/ml CUTOFF Oxycodone Ql (U) Negative NEGATIVE NG/ML [facility] Comment on above: <100 ng/ml CUTOFF Phencyclidine Screen method >25 ng/mL Ql (U) Negative NEGATIVE NG/ML [facility] Comment on above: <25 ng/ml CUTOFF Propoxyphene + Norpropoxyphene Screen Ql (U) Negative NEGATIVE NG/ML [facility] Comment on above: <300 ng/ml CUTOFF Tricyclic antidepressants Screen Ql (U) Negative NEGATIVE NG/ML [facility] Comment on above: <300 ng/ml [facility] TROPONIN I, HIGH SENSITIVITY on 06-06-2020 TROPONIN I, HIGH SENSITIVITY 3 pg/mL 0 - 20 pg/mL [facility] Comment on above: Indeterminant: >12 to 100 pg/mL female >20 to 100 pg/mL male Indicative of myocardial injury. Serial sampling is recommended, a change of greater than or equal to 20 pg/mL is indicative of acute coronary syndrome. URINALYSIS, MACROon 06-06-20 20 Bilirubin Ql (U) Negative NEGATIVE [facility] Clarity (U) SLIGHTLY CLOUDY Abnormal CLEAR [facility] Color (U) YELLOW YELLOW [facility] Glucose Test strip (U) [Mass/Vol] Negative NEGATIVE mg/dl [facility] Hemoglobin Ql (U) Negative NEGATIVE [facility] Ketones (U) [Mass/Vol] Negative NEGAT UVALDO mg/dl [facility] Leukocyte esterase Test strip Ql (U) SMALL Abnormal NEGATIVE [facility] Nitrite Ql (U) Positive Abnormal NEGATIVE [facility] pH (U) 7.0 [pH] [facility] Protein Ql (U) Negative NEGATIVE mg/dl [facility] Specific gravity (U) [Rel density] 1.025 [facility] Urobilinogen (U) [Mass/Vol] 1.0 [facility] URINE MICROSCOPICon 06-06-20 20 Bacteria LM.HPF (Urine sed) [#/Area] 3+ Abnormal NEGATIVE [facility] Casts LM.LPF (Urine sed) [#/Area] NONE NONE /LPF [facility] Crystals LM Nom (Urine sed) NONE NONE [facility] Epithelial cells LM Ql (Urine sed) 1 TO 5 /HPF [facility] Mucus Ql (Urine sed) Negative NEGATIVE [facility] RBC LM.HPF (Urine sed) [#/Area] Negative NEGATIVE /HPF [facility] Urine sediment comments LM Reji (Urine sed) REFLEX CULTURE PER ESTABLISHED CRITERIA. [facility] WBC LM.HPF (Urine sed) [#/Area] '5 TO 10 NEGATIVE /HPF [facility] ECHOCARDIOGRAMon 06-01-2020 APPROVED REPORT Other Information Study Quality: Fair [...] lead is present in the right ventricle. Left Ventricle The left ventricle is normal size. The left ventricular systolic function is normal. The left ventricular ejection fraction is within the normal range. Mild asymmetric septal thickening is noted. Paradoxical septal motion consistent with paced rhythm. Mild diastolic dysfunction is present (impaired relaxation pattern). There is no ventricular septal defect visualized. No left ventricle thrombus noted on this study. LVEF is 55-60%. Right Ventricle The right ventricle is normal size. The right ventricular systolic function is normal. There is normal right ventricular wall thickness. Pacemaker lead is present in the right ventricle. Atria The left atrium size is normal. The right atrium size is normal. The interatrial septum is intact with no evidence for an atrial septal defect. Aortic Valve Aortic valve is probably trileaflet. No hemodynamically significant valvular aortic stenosis. No aortic regurgitation is present. Mitral Valve The mitral valve is normal in structure. No evidence of mitral valve stenosis. There is no mitral valve regurgitation noted. There is no evidence of mitral valve vegetations. There is no evidence of mitral valve prolapse. Tricuspid Valve The tricuspid valve is normal in structure. There is no tricuspid valve stenosis. Mild tricuspid regurgitation. No pulmonary hypertension. There is no tricuspid valve vegetations. Pulmonic Valve The pulmonary valve is normal in structure. There is no pulmonic valvular stenosis. There is no pulmonic valvular regurgitation. There is no pulmonic valve vegetations. Great Vessels The aortic root is normal in size. The pulmonary artery is normal. The ascending aorta is normal in size. IVC is normal in size and collapses >50% with inspiration. Pericardium There is no pericardial effusion. There is no pleural effusion. EXAM: Comprehensive 2D, Doppler, and color-flow Echocardiogram 2D Dimensions IVSd 1.3 cm M: 0.6-1.0 LVEF (Visual) 42.59 % PWd 1.0 cm M: 0.6 - 1.0 LVEF (White's) 39.78 % M: 52 - 72 LVDd 3.1 cm M: 4.2 - 5.8 EF AP4-a2DQ 41.99 % LVDs 2.47 cm M: 2.5 - 4.0 EF AP2-a2DQ 55.43 % Aortic Root 3.33 cm M: 3.1 - 3.7 EF BP-a2DQ 39.78 % Aortic Root Index 1.7 cm/m2 LVSV 27 mL Ascending Aorta 3.26 cm M: 2.6 - 3.4 LV Volume 45.40 mL M: 62 - 150 Ascending Aorta Index: 1.7 cm/m2 LV Volume Index 23.40 mL/m2 M: 34 - 74 Left Atrium 3.08 cm M: 3.0 - 4.0 LA Volume 68.6 mL LVOT 2.46 cm (M/F) 1.5-2.5 LA Volume Index 35.36 mL/m2 (M/F) 16-34 TAPSE 3.0 >1.7 cm RV Major 4.15 cm IVC 2.4 cm RV Minor 6.77 cm RVID Base (AP4) 3.85 cm (M/F) 2.5-4.1 Right Atrium 5.4 cm (M/F) 2.9-4.5 LV Diastology E/A Ratio 0.8 LAT E' 0.09 (<.10 m/s) E/LAT E' Ratio 5.61 (>14) Aortic Valve LVOT Max 0.79 (0.7-1.1 m/s) LVOT VTI 19.43 cm AV DI 0.91 (>0.25) AoV Peak Chinmay. 1.00 (0.5-1.3 m/s) AV Vmean 0.75 m/s AO Peak GR. 4.04 mmHg AO Mean GR. 2.45 (<5 mmHg) AO VTI 21.4 (18-25 cm) CONRAD (VTI) 4.30 (2.5-4.5 cm2) Mitral Valve MV E Max Chinmay. 0.5 (0.4-1.3 m/s) MV A Velocity 0.62 (0.4-1.3 m/s) E/A Ratio 0.84 MV PHT 120.92 ms MVA PHT 1.82 cm2 MV Dec Dane 216.76 cm/s2 MV Decel. Time 237.61 (160-240 ms) Tricuspid Valve TR P. Velocity 2.76 m/s RAP Estimate 15 mmHg TR maxPG 30.45 mmHg [employer] User, Interfaces - 06/01/2020 3:26 PM EST APPROVED REPORT Other Information Study Quality: Fair [...] lead is present in the right ventricle. Left Ventricle The left ventricle is normal size. The left ventricular systolic function is normal. The left ventricular ejection fraction is within the normal range. Mild asymmetric septal thickening is noted. Paradoxical septal motion consistent with paced rhythm. Mild diastolic dysfunction is present (impaired relaxation pattern). There is no ventricular septal defect visualized. No left ventricle thrombus noted on this study. LVEF is 55-60%. Right Ventricle The right ventricle is normal size. The right ventricular systolic function is normal. There is normal right ventricular wall thickness. Pacemaker lead is present in the right ventricle. Atria The left atrium size is normal. The right atrium size is normal. The interatrial septum is intact with no evidence for an atrial septal defect. Aortic Valve Aortic valve is probably trileaflet. No hemodynamically significant valvular aortic stenosis. No aortic regurgitation is present. Mitral Valve The mitral valve is normal in structure. No evidence of mitral valve stenosis. There is no mitral valve regurgitation noted. There is no evidence of mitral valve vegetations. There is no evidence of mitral valve prolapse. Tricuspid Valve The tricuspid valve is normal in structure. There is no tricuspid valve stenosis. Mild tricuspid regurgitation. No pulmonary hypertension. There is no tricuspid valve vegetations. Pulmonic Valve The pulmonary valve is normal in structure. There is no pulmonic valvular stenosis. There is no pulmonic valvular regurgitation. There is no pulmonic valve vegetations. Great Vessels The aortic root is normal in size. The pulmonary artery is normal. The ascending aorta is normal in size. IVC is normal in size and collapses >50% with inspiration. Pericardium There is no pericardial effusion. There is no pleural effusion. EXAM: Comprehensive 2D, Doppler, and color-flow Echocardiogram 2D Dimensions IVSd 1.3 cm M: 0.6-1.0LVEF (Visual)42.59 % PWd 1.0 cm M: 0.6 - 1.0LVEF (White's)39.78 % M: 52 - 72 LVDd 3.1 cm M: 4.2 - 5.8EF AP4-a2DQ41.99 % LVDs 2.47 cm M: 2.5 - 4.0EF AP2-a2DQ55.43 % Aortic Root 3.33 cm M: 3.1 - 3.7EF BP-a2DQ39.78 % Aortic Root Index1.7 cm/e4NNXY81 mL Ascending Aorta 3.26 cm M: 2.6 - 3.4LV Prknwd51.40 mL M: 62 - 150 Ascending Aorta Index: 1.7 cm/m2LV Volume Index23.40 mL/m2 M: 34 - 74 Left Atrium 3.08 cm M: 3.0 - 4.0LA Hmjghi45.6 mL LVOT2.46 cm (M/F) 1.5-2.5LA Volume Index35.36 mL/m2 (M/F) 16-34 TAPSE 3.0 >1.7 cmRV Major 4.15 cm IVC2.4 cmRV Minor6.77 cm RVID Base (AP4)3.85 cm (M/F) 2.5-4.1 Right Atrium 5.4 cm (M/F) 2.9-4.5 LV Diastology E/A Ratio 0.8LAT E'0.09 (<.10 m/s) E/LAT E' Ratio5.61 (>14) Aortic Valve LVOT Max0.79 (0.7-1.1 m/s)LVOT VTI19.43 cm AV DI0.91 (>0.25)AoV Peak Chinmay.1.00 (0.5-1.3 m/s) AV Vmean 0.75 m/Madelaine Peak GR.4.04 mmHg AO Mean GR.2.45 (<5 mmHg)AO VTI21.4 (18-25 cm) CONRAD (VTI)4.30 (2.5-4.5 cm2) Mitral Valve MV E Max Chinmay.0.5 (0.4-1.3 m/s)MV A Velocity0.62 (0.4-1.3 m/s) E/A Ratio0.84MV DBF147.92 ms MVA PHT1.82 cm2MV Dec Dane 216.76 cm/s2 MV Decel. Cvmt945.61 (160-240 ms) Tricuspid Valve TR P. Velocity2.76 m/sRAP Sfniakgt62 mmHg TR maxPG 30.45 mmHg [facility] NOVEL CORONAVIRUS LAB 1 - NA [facility] 06-01-2020 NARRATIVE -1 This test was performed using isothermal CHADD and has been approved as Emergency Use Authorization (EUA) for the qualitative detection [id number] nucleic acid. [facility] SARS COV 2 RNA, QL REAL TIME RT PCR NOT DETECTED NOT DETECTED [facility] Comment on above: Negative results do not preclude SARS-CoV-2 infection and should not be used as the sole basis for treatment or other patient management decisions. Optimum specimen types and timing for peak viral levels during infections caused by SARS-CoV-2 has not been determined. The possibility of a false negative result should especially be considered if the patient's recent exposures or clinical presentation suggest that SARS-CoV-2 infection is probable, and diagnostic tests for other causes of illness (e.g., other respiratory illness) are negative. Collection of a new specimen and re-testing may be necessary if the patient is critically ill or clinically deteriorating. [facility] DUPLEX CAROTID BILATERA Luis Eduardo 06-01-2020 EXAMINATION: VASC DUPLEX CAROTID BILATERAL HISTORY: Bilateral [...] 1.7. Antegrade vertebral flow is documented bilaterally. [employer] [facility] User, Interfaces - 06/01/2020 1:49 PM EST EXAMINATION: VASC DUPLEX CAROTID BILATERAL HISTORY: Bilateral [...] bilaterally. Bilateral antegrade vertebral flow is documented. [email or web address] B-TYPE NATRIURETIC PEPTIDE ( BRAIN)on 05-03-2020 Interpretation and review of laboratory results Abnormal [facility] Natriuretic peptide B (Bld) [Mass/Vol] 129 pg/mL High 0 - 100 pg/mL [facility] CBC, EDIF, PLATELETon 2019 ABSOLUTE BASOPHIL COUNT 0.0 10*3/uL 0 - 0.2 10*3/uL [facility] Basophils/100 WBC (Bld) 0.5 % 0 - 2 % A [employer] Differential cell count method Nom (Bld) AUTO DIFF % [facility] Eosinophils (Bld) [#/Vol] 0.00 10*3/uL 0 - 0.7 10*3/uL [facility] Eosinophils/100 WBC (Bld) 0.5 % 0 - 11 % [facility] Erythrocyte distribution width (RBC) [Ratio] 15.6 % High 11.5 - 14.5 % [facility] Hematocrit (Bld) [Volume fraction] 35.8 % Low 42 - 52 % [facility] Hemoglobin (Bld) [Mass/Vol] 11.9 g/dL Low [email or web address] Interpretation and review of laboratory results Abnormal [email or web address] Lymphocytes (Bld) [#/Vol] 0.70 10*3/uL Low 1.2 - 3.4 10*3/uL [facility] Lymphocytes/100 WBC (Bld) 12.1 % Low 20 - 55 % [facility] MCH (RBC) [Entitic mass] 31.0 pg 26 - 35 PG [facility] MCHC (RBC) [Mass/Vol] 33.3 g/dL [facility] MCV (RBC) [Entitic vol] 93.1 fL A [facility] Monocytes (Bld) [#/Vol] 0.4 10*3/uL 0 - 0.7 10*3/uL [facility] Monocytes/100 WBC (Bld) 6.5 % 0 - 10 % A [facility] Neutrophils (Bld) [#/Vol] 4.7 10*3/uL 1.4 - 6.5 10*3/uL [facility] Neutrophils/100 WBC (Bld) 80.4 % High 37 - 75 % [facility] Platelet mean volume (Bld) [Entitic vol] 8.2 fL [facility] Platelets (Bld) [#/Vol] 195 10*3/uL 130 - 400 10*3/uL [facility] RBC (Bld) [#/Vol] 3.85 10*6/uL Low 4 - 6.1 10*6/uL [facility] WBC (Bld) [#/Vol] 5.8 10*3/uL 3.6 - 11 10*3/uL [facility] COMPREHENSIVE METABOLIC PANE Luis Eduardo 05-03-2020 Albumin [Mass/Vol] 4.2 G/dl 3.5 - 5 G/dl [facility] Albumin/Globulin [Mass ratio] 1.4 {ratio} [facility] ALP [Catalytic activity/Vol] 50 U/L [facility] ALT [Catalytic activity/Vol] 15 U/L Low [facility] AST [Catalytic activity/Vol] 15 U/L [facility] Bilirubin [Mass/Vol] 0.7 mg/dL [facility] Calcium [Mass/Vol] 9.5 mg/dL [facility] Chloride [Moles/Vol] 104 mmol/L [facility] CO2 [Moles/Vol] 26 mmol/L [facility] Creatinine [Mass/Vol] 1.17 mg/dL [facility] GFR/1.73 sq M predicted among blacks MDRD (S/P/Bld) [Vol rate/Area] mL/min/{1.73_m2} ml/min/1.73sq .m [facility] GFR/1.73 sq M predicted among non-blacks MDRD (S/P/Bld) [Vol rate/Area] mL/min/{1.73_m2} ml/min/1.73sq .m [email or web address] System GFR/1.73 sq M predicted among non-blacks MDRD (S/P/Bld) [Vol rate/Area] Average GFR for 70+ years old = 75. [employer] Comment on above: Chronic Kidney disea se, GFR = <60. Kidney failure, GFR = <15. The GFR estimate is not adjusted for extreme body surface area or acute process, nor has it been validated for women or ethnic groups other than and . Glucose post fast [Mass/Vol] 95 mg/dL [facility] Comment on above: NORMAL <100 mg/dL PREDIABETES 101-126 mg/dL DIABETES 126 mg/dL or higher Interpretation and review of laboratory results Abnormal [facility] Potassium [Moles/Vol] 4.6 mmol/L [employer] Protein [Mass/Vol] 7.1 g/dL [employer] Sodium [Moles/Vol] 138 mmol/L [facility] Urea nitrogen [Mass/Vol] 33 mg/dL High [facility] TROPONIN I, HIGH SENSITIVITY on 05-03-2020 TROPONIN I, HIGH SENSITIVITY 2 pg/mL 0 - 20 pg/mL [facility] Comment on above: Indeterminant: >12 to 100 pg/mL female >20 to 100 pg/mL male Indicative of myocardial injury. Serial sampling is recommended, a change of greater than or equal to 20 pg/mL is indicative of acute coronary syndrome. XR CHEST PA AND LATERALon User, Interfaces - 05/03/2020 10:02 PM EDT EXAM: XR CHEST PA AND LATERAL HISTORY: susspected COPD flare. (R/O infiltrate)(R/O CHF) COMPARISON: Portable chest from 04/24/2020. TECHNIQUE: Frontal and lateral films are done of the chest. FINDINGS: There is slight blunting of the right costophrenic angle which may be due to fluid versus more likely pleural thickening. The lungs show mild hyperaeration without infiltrate or nodule or effusion. Trachea, mediastinum and heart size are unremarkable. 2-lead cardiac pacer is noted. IMPRESSION IMPRESSION: Nonacute portable chest with chronic changes and findings of [id number] COPD. [facility] IMPRESSION: Nonacute portable chest with chronic changes and findings of [id number] COPD. [email or web address] [facility] EXAM: XR CHEST PA AND LATERAL HISTORY: susspected COPD flare. (R/O infiltrate)(R/O CHF) COMPARISON: Portable chest from 04/24/2020. TECHNIQUE: Frontal and lateral films are done of the chest. FINDINGS: There is slight blunting of the right costophrenic angle which may be due to fluid versus more likely pleural thickening. The lungs show mild hyperaeration without infiltrate or nodule or effusion. Trachea, mediastinum and heart size are unremarkable. 2-lead cardiac pacer is noted. [email or web address] B-TYPE NATRIURETIC PEPTIDE ( BRAIN)on 04-25-2020 Natriuretic peptide B (Bld) [Mass/Vol] 142 pg/mL High 0 - 100 pg/mL [facility] C REACTIVE PROTEINon 020 CRP [Mass/Vol] 5.9 mg/L 0 - 10 MG/L [email or web address]. [facility] CBC, EDIF, PLATELETon 2019 ABSOLUTE BASOPHIL COUNT 0.1 10*3/uL 0 - 0.2 10*3/uL [facility] Basophils/100 WBC (Bld) 0.9 % 0 - 2 % [employer] [facility] Differential cell count method Nom (Bld) AUTO DIFF % [facility] Eosinophils (Bld) [#/Vol] 0.10 10*3/uL 0 - 0.7 10*3/uL [facility] Eosinophils/100 WBC (Bld) 1.8 % 0 - 11 % [facility] Erythrocyte distribution width (RBC) [Ratio] 15.5 % High 11.5 - 14.5 % [facility] Hematocrit (Bld) [Volume fraction] 34.1 % Low 42 - 52 % [facility] Hemoglobin (Bld) [Mass/Vol] 11.6 g/dL Low [facility] Interpretation and review of laboratory results Abnormal [facility] Lymphocytes (Bld) [#/Vol] 0.40 10*3/uL Low 1.2 - 3.4 10*3/uL [facility] Lymphocytes/100 WBC (Bld) 5.3 % Low 20 - 55 % [facility] MCH (RBC) [Entitic mass] 31.3 pg 26 - 35 PG [facility] MCHC (RBC) [Mass/Vol] 34.1 g/dL [facility] MCV (RBC) [Entitic vol] 91.[address] [facility] Monocytes (Bld) [#/Vol] 0.3 10*3/uL 0 - 0.7 10*3/uL [facility] Monocytes/100 WBC (Bld) 3.6 % 0 - 10 % A [facility] Neutrophils (Bld) [#/Vol] 7.1 10*3/uL High 1.4 - 6.5 10*3/uL [facility] Neutrophils/100 WBC (Bld) 88.4 % High 37 - 75 % [facility] Platelet mean volume (Bld) [Entitic vol] 8.1 fL [facility] Platelets (Bld) [#/Vol] 205 10*3/uL 130 - 400 10*3/uL [facility] RBC (Bld) [#/Vol] 3.72 10*6/uL Low 4 - 6.1 10*6/uL [facility] WBC (Bld) [#/Vol] 8.0 10*3/uL 3.6 - 11 10*3/uL [facility] CHEM 7 (LYTES,BUN,CREA,GLUC) on 04-25-2020 Chloride [Moles/Vol] 105 mmol/L [facility] CO2 [Moles/Vol] 24 mmol/L [facility] Creatinine [Mass/Vol] 1.20 mg/dL [facility] GFR/1.73 sq M predicted among blacks MDRD (S/P/Bld) [Vol rate/Area] mL/min/{1.73_m2} ml/min/1.73sq .m [facility] GFR/1.73 sq M predicted among non-blacks MDRD (S/P/Bld) [Vol rate/Area] Average GFR for 70+ years old = 75. [facility] Comment on above: Chronic Kidney disea se, GFR = <60. Kidney failure, GFR = <15. The GFR estimate is not adjusted for extreme body surface area or acute process, nor has it been validated for women or ethnic groups other than and . GFR/1.73 sq M predicted among non-blacks MDRD (S/P/Bld) [Vol rate/Area] mL/min/{1.73_m2} ml/min/1.73sq .m [facility] Glucose post fast [Mass/Vol] 101 mg/dL High [facility] Comment on above: NORMAL <100 mg/dL PREDIABETES 101-126 mg/dL DIABETES 126 mg/dL or higher Potassium [Moles/Vol] 4.0 mmol/L [facility] Sodium [Moles/Vol] 137 mmol/L [facility] Urea nitrogen [Mass/Vol] 20 mg/dL [facility] HEPATIC FUNCTION PANELon Albumin [Mass/Vol] 4.1 g/dL [facility] ALP [Catalytic activity/Vol] 58 U/L [facility] ALT [Catalytic activity/Vol] 18 U/L [facility] AST [Catalytic activity/Vol] 17 U/L [facility] Bilirubin [Mass/Vol] 0.6 mg/dL [facility] Bilirubin.direct [Mass/Vol] 0.1 mg/dL [facility] Protein [Mass/Vol] 7.1 g/dL [facility] LACTATE, BLOODon 04-25-2020 Lactate [Moles/Vol] 1.3 mmol/L [facility] Otheron 04-25-2020 Interpretation and review of laboratory results Abnormal [facility] PROTIME-INRon 04-25-2020 INR Coag (PPP) [Relative time] 0.98 {INR} [facility] Comment on above: 2.0-3.0 THERAPEUTIC RANGE 2.5-3.5 MECHANICAL VALVE RANGE PT Coag (PPP) [Time] 12.9 s [facility] SEDIMENTATION RATE, AUTOMATE Don 04-25-2020 ESR (Bld) [Velocity] 32 mm/h High [facility] Interpretation and review of laboratory results Abnormal [facility] TROPONIN I, HIGH SENSITIVITY on 04-25-2020 TROPONIN I, HIGH SENSITIVITY 2 pg/mL 0 - 20 pg/mL [facility] Comment on above: Indeterminant: >12 to 100 pg/mL female >20 to 100 pg/mL male Indicative of myocardial injury. Serial sampling is recommended, a change of greater than or equal to 20 pg/mL is indicative of acute coronary syndrome. XR CHEST AP PORTABLEon 04-25 User, Interfaces - 04/25/2020 8:16 AM EDT EXAM: XR CHEST AP PORTABLE HISTORY: sob [...] in the midthoracic spine to the right. IMPRESSION IMPRESSION: COPD. No acute infiltrate or consolidation seen. [employer] EXAM: XR CHEST AP PORTABLE HISTORY: sob [...] in the midthoracic spine to the right. [employer] IMPRESSION: COPD. No acute infiltrate or consolidation seen. [employer] [facility] CBC, EDIF, PLATELETon 2019 ABSOLUTE BASOPHIL COUNT 0.1 10*3/uL 0 - 0.2 10*3/uL [employer] Basophils/100 WBC (Bld) 0.7 % 0 - 2 % A [employer] Differential cell count method Nom (Bld) AUTO DIFF % [employer] Eosinophils (Bld) [#/Vol] 0.10 10*3/uL 0 - 0.7 10*3/uL [employer] Eosinophils/100 WBC (Bld) 1.2 % 0 - 11 % [employer] Erythrocyte distribution width (RBC) [Ratio] 15.4 % High 11.5 - 14.5 % [employer] Hematocrit (Bld) [Volume fraction] 40.0 % Low 42 - 52 % [employer] Hemoglobin (Bld) [Mass/Vol] 13.3 g/dL Low [employer] Interpretation and review of laboratory results Abnormal [employer] Lymphocytes (Bld) [#/Vol] 0.50 10*3/uL Low 1.2 - 3.4 10*3/uL [employer] Lymphocytes/100 WBC (Bld) 5.9 % Low 20 - 55 % [employer] MCH (RBC) [Entitic mass] 30.7 pg 26 - 35 PG [employer] MCHC (RBC) [Mass/Vol] 33.2 g/dL [facility] MCV (RBC) [Entitic vol] 92.4 fL [facility] Monocytes (Bld) [#/Vol] 0.4 10*3/uL 0 - 0.7 10*3/uL [facility] Monocytes/100 WBC (Bld) 3.9 % 0 - 10 % [facility] Neutrophils (Bld) [#/Vol] 8.0 10*3/uL High 1.4 - 6.5 10*3/uL [facility] Neutrophils/100 WBC (Bld) 88.3 % High 37 - 75 % [facility] Platelet mean volume (Bld) [Entitic vol] 8.7 fL [facility] [employer] Platelets (Bld) [#/Vol] 186 10*3/uL 130 - 400 10*3/uL [facility] RBC (Bld) [#/Vol] 4.33 10*6/uL 4 - 6.1 10*6/uL [facility] WBC (Bld) [#/Vol] 9.1 10*3/uL 3.6 - 11 10*3/uL [facility] COMPREHENSIVE METABOLIC PANE Luis Eduardo 02-18-2020 Albumin [Mass/Vol] 4.6 G/dl 3.5 - 5 G/dl [facility] Albumin/Globulin [Mass ratio] 1.5 {ratio} [facility] ALP [Catalytic activity/Vol] 63 U/L [facility] ALT [Catalytic activity/Vol] 11 U/L Low [facility] AST [Catalytic activity/Vol] 16 U/L [facility] Bilirubin [Mass/Vol] 0.9 mg/dL [facility] Calcium [Mass/Vol] 9.2 mg/dL [facility] Chloride [Moles/Vol] 104 mmol/L [facility] CO2 [Moles/Vol] 22 mmol/L [facility] Creatinine [Mass/Vol] 1.23 mg/dL [facility] GFR/1.73 sq M predicted among blacks MDRD (S/P/Bld) [Vol rate/Area] mL/min/{1.73_m2} ml/min/1.73sq .m [facility] GFR/1.73 sq M predicted among non-blacks MDRD (S/P/Bld) [Vol rate/Area] mL/min/{1.73_m2} ml/min/1.73sq .m [employer] GFR/1.73 sq M predicted among non-blacks MDRD (S/P/Bld) [Vol rate/Area] Average GFR for 70+ years old = 75. [employer] Comment on above: Chronic Kidney disea se, GFR = <60. Kidney failure, GFR = <15. The GFR estimate is not adjusted for extreme body surface area or acute process, nor has it been validated for women or ethnic groups other than and . Glucose post fast [Mass/Vol] 102 mg/dL High [employer] Comment on above: NORMAL <100 mg/dL PREDIABETES 101-126 mg/dL DIABETES 126 mg/dL or higher Interpretation and review of laboratory results Abnormal [employer] Potassium [Moles/Vol] 4.2 mmol/L [facility] Protein [Mass/Vol] 7.6 g/dL [employer] Sodium [Moles/Vol] 134 mmol/L Low [employer] Urea nitrogen [Mass/Vol] 30 mg/dL High [employer] [facility] CT ABDOMEN/PELVIS WITH CONTR Lazara 02-18-2020 EXAM: CT ABDOMEN/PELVIS WITH CONTRAST INDICATION: Diarrhea and cramping since last night" COMPARISONS: 09/30/2019 TECHNIQUE: Standard CT abdomen/pelvis with 75 cc IV contrast. Dose reduction techniques were achieved by using: automated exposure control and/or adjustment of mA and/or kV according to patient size and/or use of iterative reconstruction technique. FINDINGS: [employer] Coordinator: No additional acute findings Mediastinum: Dual-lead cardiac pacemaker. Lung bases: Bibasilar scarring and interstitial thickening similar to prior exam from 09/30/2019. Liver: Scattered calcifications suggesting prior granulomatous disease Biliary tract: Unremarkable. Pancreas: Unremarkable. Spleen: Scattered splenic punctate calcifications suggesting prior granulomatous disease. Adrenals: Unremarkable. tract: Unremarkable. GI tract and mesentery: Coarse calcification in the right mid abdomen, perhaps a granuloma. Appendix is normal. Partially fluid-filled small and large bowel. Small and large bowel wall also appears edematous. Vasculature: Infrarenal aortobiiliac graft. Excluded aortic aneurysm measures up to 2.9 cm transverse. Atherosclerotic calcifications within the imaged aorta and its branches. Lymphatics: No pathologically enlarged lymph nodes. Pelvic structures: Appropriate for age. Bones: Degenerative changes in the spine and hips. Soft Tissues: Unremarkable. [employer] IMPRESSION: 1. Fluid-filled and edematous small and large bowel suggesting infectious or inflammatory process. No evidence of bowel obstruction. 2. Infrarenal aortobiiliac graft as above. This appears patent and without obvious complication. 3. Additional findings as above which appear chronic. [employer] User, Interfaces - 02/18/2020 7:01 PM EDT EXAM: CT ABDOMEN/PELVIS WITH CONTRAST INDICATION: Diarrhea and cramping since last night" COMPARISONS: 09/30/2019 TECHNIQUE: Standard CT abdomen/pelvis with 75 cc IV contrast. Dose reduction techniques were achieved by using: automated exposure control and/or adjustment of mA and/or kV according to patient size and/or use of iterative reconstruction technique. FINDINGS: [employer] Coordinator: No additional acute findings Mediastinum: Dual-lead cardiac pacemaker. Lung bases: Bibasilar scarring and interstitial thickening similar to prior exam from 09/30/2019. Liver: Scattered calcifications suggesting prior granulomatous disease Biliary tract: Unremarkable. Pancreas: Unremarkable. Spleen: Scattered splenic punctate calcifications suggesting prior granulomatous disease. Adrenals: Unremarkable. tract: Unremarkable. GI tract and mesentery: Coarse calcification in the right mid abdomen, perhaps a granuloma. Appendix is normal. Partially fluid-filled small and large bowel. Small and large bowel wall also appears edematous. Vasculature: Infrarenal aortobiiliac graft. Excluded aortic aneurysm measures up to 2.9 cm transverse. Atherosclerotic calcifications within the imaged aorta and its branches. Lymphatics: No pathologically enlarged lymph nodes. Pelvic structures: Appropriate for age. Bones: Degenerative changes in the spine and hips. Soft Tissues: Unremarkable. IMPRESSION IMPRESSION: 1. Fluid-filled and edematous small and large bowel suggesting infectious or inflammatory process. No evidence of bowel obstruction. 2. Infrarenal aortobiiliac graft as above. This appears patent and without obvious complication. 3. Additional findings as above which appear chronic. [employer] CT CHEST WITHOUT CONTRASTon 09-30-2019 IMPRESSION: 1. Scattered areas of bandlike opacity in the mid to lower lungs one of which present into the lateral segment of the middle lobe appears to correspond to the suspected nodule. There are no suspicious lung nodules. 2. Moderately severe upper lobe predominant emphysema with moderate diffuse bronchitis and scattered debris/mucus within the lower lobe segmental and subsegmental bronchi. No central airway obstruction. No consolidative pneumonia. 3. Sequela of remote granulomatous disease. 4. Atherosclerotic vascular disease of the aorta with multivessel coronary artery calcifications. Partially imaged is an endograft stent within the infrarenal abdominal aorta. [facility] EXAMINATION: CT CHEST WITHOUT CONTRAST HISTORY: Shortness of breath. Abnormal chest x-ray. COMPARISON: No previous CT studies. Chest x-ray August 19, 2019. TECHNIQUE: CT examination of the chest without IV contrast. Coronal and sagittal reformations were performed. Dose reduction techniques were achieved by using automated exposure control and/or adjustment of mA and/or kV according to patient size and/or use of iterative reconstruction technique. FINDINGS: There are moderately severe changes of upper lobe predominant emphysema. There is moderate diffuse perihilar and lower lobe predominant bronchial wall thickening compatible with bronchial inflammation. There are scattered areas of debris within the segmental and subsegmental bronchi of the lower lobes. A minimal amount of debris is present within the dependent portion of the trachea and bronchus intermedius. There is no pneumothorax or pleural effusion. There is a bandlike opacity in the lateral segment of the middle lobe which is in the vicinity of the suspected nodule on chest x-ray but has a configuration consistent with either atelectasis or scar. Additional small areas of bandlike atelectasis are present within the inferior aspect of the middle lobe and both lower lobes. There are a few scattered small calcified lung nodules consistent with remote granulomatous disease. There are no suspicious lung nodules. A few triangular tiny nodules along the fissures consistent with lymph nodes. There is a dual lead left pectoral transvenous pacemaker with leads terminating in the right atrial appendage and right ventricular apex. The thoracic aorta shows mild to moderate scattered atherosclerotic calcifications with no aneurysmal dilatation. There is no bulky mediastinal, axillary, or hilar adenopathy. Small calcified mediastinal/hilar lymph nodes are noted consistent with remote granulomatous disease. The upper abdomen partially imaged the superior portion of an endograft stent in the aorta. There is sequela of remote granulomatous disease in the liver. No acute or significant findings on the unenhanced study. Severe degenerative disc changes are seen in the lower dorsal and included lumbar spine. No acute osseous abnormality. [employer] User, Interfaces - 09/30/2019 1:42 PM EDT EXAMINATION: CT CHEST WITHOUT CONTRAST HISTORY: Shortness of breath. Abnormal chest x-ray. COMPARISON: No previous CT studies. Chest x-ray August 19, 2019. TECHNIQUE: CT examination of the chest without IV contrast. Coronal and sagittal reformations were performed. Dose reduction techniques were achieved by using automated exposure control and/or adjustment of mA and/or kV according to patient size and/or use of iterative reconstruction technique. FINDINGS: There are moderately severe changes of upper lobe predominant emphysema. There is moderate diffuse perihilar and lower lobe predominant bronchial wall thickening compatible with bronchial inflammation. There are scattered areas of debris within the segmental and subsegmental bronchi of the lower lobes. A minimal amount of debris is present within the dependent portion of the trachea and bronchus intermedius. There is no pneumothorax or pleural effusion. There is a bandlike opacity in the lateral segment of the middle lobe which is in the vicinity of the suspected nodule on chest x-ray but has a configuration consistent with either atelectasis or scar. Additional small areas of bandlike atelectasis are present within the inferior aspect of the middle lobe and both lower lobes. There are a few scattered small calcified lung nodules consistent with remote granulomatous disease. There are no suspicious lung nodules. A few triangular tiny nodules along the fissures consistent with lymph nodes. There is a dual lead left pectoral transvenous pacemaker with leads terminating in the right atrial appendage and right ventricular apex. The thoracic aorta shows mild to moderate scattered atherosclerotic calcifications with no aneurysmal dilatation. There is no bulky mediastinal, axillary, or hilar adenopathy. Small calcified mediastinal/hilar lymph nodes are noted consistent with remote granulomatous disease. The upper abdomen partially imaged the superior portion of an endograft stent in the aorta. There is sequela of remote granulomatous disease in the liver. No acute or significant findings on the unenhanced study. Severe degenerative disc changes are seen in the lower dorsal and included lumbar spine. No acute osseous abnormality. IMPRESSION IMPRESSION: 1. Scattered areas of bandlike opacity in the mid to lower lungs one of which present into the lateral segment of the middle lobe appears to correspond to the suspected nodule. There are no suspicious lung nodules. 2. Moderately severe upper lobe predominant emphysema with moderate diffuse bronchitis and scattered debris/mucus within the lower lobe segmental and subsegmental bronchi. No central airway obstruction. No consolidative pneumonia. 3. Sequela of remote granulomatous disease. 4. Atherosclerotic vascular disease of the aorta with multivessel coronary artery calcifications. Partially imaged is an endograft stent within the infrarenal abdominal aorta. [facility] BASIC METABOLIC PANELon 07-22 Anion gap [Moles/Vol] 9 mmol/L [facility] [employer] Calcium [Mass/Vol] 9.4 mg/dL [facility] [employer] Chloride [Moles/Vol] 104 mmol/L [facility] CO2 [Moles/Vol] 26 mmol/L [facility] Creatinine [Mass/Vol] 1.33 mg/dL High [facility] [employer] GFR/1.73 sq M predicted among blacks MDRD (S/P/Bld) [Vol rate/Area] mL/min/{1.73_m2} ml/min/1.73sq .m [facility] [employer] GFR/1.73 sq M predicted among non-blacks MDRD (S/P/Bld) [Vol rate/Area] Average GFR for 70+ years old = 75. [employer] Comment on above: Chronic Kidney disea se, GFR = <60. Kidney failure, GFR = <15. The GFR estimate is not adjusted for extreme body surface area or acute process, nor has it been validated for women or ethnic groups other than and . GFR/1.73 sq M predicted among non-blacks MDRD (S/P/Bld) [Vol rate/Area] 56 mL/min/{1.73_m2} ml/min/1.73sq .m [facility] [employer] Glucose post fast [Mass/Vol] 103 mg/dL High [facility] Comment on above: NORMAL <100 mg/dL PREDIABETES 101-126 mg/dL DIABETES 126 mg/dL or higher Potassium [Moles/Vol] 3.6 mmol/L [facility] [employer] Sodium [Moles/Vol] 139 mmol/L [facility] [employer] Urea nitrogen [Mass/Vol] 18 mg/dL [facility] [employer] CBC, EDIF, PLATELETon 2019 ABSOLUTE BASOPHIL COUNT 0.1 10*3/uL 0 - 0.2 10*3/uL [facility] [employer] Basophils/100 WBC (Bld) 2.4 % High 0 - 2 % [facility] [employer] Differential cell count method Nom (Bld) AUTO DIFF % [facility] [employer] Eosinophils (Bld) [#/Vol] 0.30 10*3/uL 0 - 0.7 10*3/uL [facility] [employer] Eosinophils/100 WBC (Bld) 5.3 % 0 - 11 % [facility] [employer] Erythrocyte distribution width (RBC) [Ratio] 16.0 % High 11.5 - 14.5 % [facility] [employer] Hematocrit (Bld) [Volume fraction] 35.8 % Low 42 - 52 % [facility] Hemoglobin (Bld) [Mass/Vol] 12.1 g/dL Low [facility] Lymphocytes (Bld) [#/Vol] 0.80 10*3/uL Low 1.2 - 3.4 10*3/uL [facility] Lymphocytes/100 WBC (Bld) 17.3 % Low 20 - 55 % [facility] MCH (RBC) [Entitic mass] 30.6 pg 26 - 35 PG [facility] MCHC (RBC) [Mass/Vol] 33.9 g/dL [facility] [employer] MCV (RBC) [Entitic vol] 90.2 fL [facility] Monocytes (Bld) [#/Vol] 0.3 10*3/uL 0 - 0.7 10*3/uL [facility] Monocytes/100 WBC (Bld) 7.0 % 0 - 10 % [facility] [employer] Neutrophils (Bld) [#/Vol] 3.2 10*3/uL 1.4 - 6.5 10*3/uL [facility] Neutrophils/100 WBC (Bld) 68.0 % 37 - 75 % [facility] [employer] Platelet mean volume (Bld) [Entitic vol] 8.2 fL [facility] [employer] Platelets (Bld) [#/Vol] 183 10*3/uL 130 - 400 10*3/uL [facility] RBC (Bld) [#/Vol] 3.96 10*6/uL Low 4 - 6.1 10*6/uL [facility] WBC (Bld) [#/Vol] 4.7 10*3/uL 3.6 - 11 10*3/uL [facility] INFLUENZA A AND B, PCRon FLUBV Ag IA Ql (Unsp spec) Negative NEGATIVE [facility] [employer] Comment on above: TESTING PERFORMED BY [facility] INFLUENZA A Negative NEGATIVE [facility] [employer] LACTATE, BLOODon 08-19-2019 Lactate [Moles/Vol] 1.1 mmol/L [facility] Otheron 08-19-2019 Interpretation and review of laboratory results Abnormal [employer] TROPONINon 08-19-2019 Troponin I.cardiac [Mass/Vol] ng/mL 0 - 0.08 ng/mL [employer] XR CHEST PA 1 VIEWon 2 020 User, Interfaces - 08/19/2019 2:05 PM EST EXAM: XR CHEST PA 1 VIEW. HISTORY: Chest pain. COMPARISON: Chest x-ray June 01, 2019. TECHNIQUE: Single AP view of the chest. FINDINGS: Cardiac silhouette and mediastinal contours are stable and within normal limits. The left pectoral transvenous pacer is in similar position. Lungs are again hyperinflated. There is a questionable faint 10 mm nodule overlying the right lateral lower lung, not identified with certainty on the previous study. Otherwise, lungs are expanded with no airspace consolidation, pneumothorax or sizable effusion. IMPRESSION IMPRESSION: 1. Questionable 10 mm right lower lung nodule versus composite. Suggest either follow-up chest x-ray or further evaluation with CT. 2. COPD type changes. No consolidative pneumonia. [employer] IMPRESSION: 1. Questionable 10 mm right lower lung nodule versus composite. Suggest either follow-up chest x-ray or further evaluation with CT. 2. COPD type changes. No consolidative pneumonia. [employer] EXAM: XR CHEST PA 1 VIEW. HISTORY: Chest pain. COMPARISON: Chest x-ray June 01, 2019. TECHNIQUE: Single AP view of the chest. FINDINGS: Cardiac silhouette and mediastinal contours are stable and within normal limits. The left pectoral transvenous pacer is in similar position. Lungs are again hyperinflated. There is a questionable faint 10 mm nodule overlying the right lateral lower lung, not identified with certainty on the previous study. Otherwise, lungs are expanded with no airspace consolidation, pneumothorax or sizable effusion. [employer] CBC, EDIF, PLATELETon 2018 ABSOLUTE BASOPHIL COUNT 0.0 10*3/uL 0 - 0.2 10*3/uL [employer] Basophils/100 WBC (Bld) 0.5 % 0 - 2 % [facility] [employer] Differential cell count method Nom (Bld) AUTO DIFF % [employer] Eosinophils (Bld) [#/Vol] 0.10 10*3/uL 0 - 0.7 10*3/uL [employer] Eosinophils/100 WBC (Bld) 1.2 % 0 - 11 % [employer] Erythrocyte distribution width (RBC) [Ratio] 14.9 % High 11.5 - 14.5 % [employer] Hematocrit (Bld) [Volume fraction] 36.5 % Low 42 - 52 % [facility] Hemoglobin (Bld) [Mass/Vol] 12.7 g/dL Low [facility] Lymphocytes (Bld) [#/Vol] 0.90 10*3/uL Low 1.2 - 3.4 10*3/uL [facility] Lymphocytes/100 WBC (Bld) 9.4 % Low 20 - 55 % [facility] MCH (RBC) [Entitic mass] 31.7 pg 26 - 35 PG [facility] MCHC (RBC) [Mass/Vol] 34.9 g/dL [facility] MCV (RBC) [Entitic vol] 90.9 fL [facility] Monocytes (Bld) [#/Vol] 0.7 10*3/uL 0 - 0.7 10*3/uL [facility] Monocytes/100 WBC (Bld) 6.8 % 0 - 10 % [facility] Neutrophils (Bld) [#/Vol] 8.2 10*3/uL High 1.4 - 6.5 10*3/uL [facility] Neutrophils/100 WBC (Bld) 82.1 % High 37 - 75 % [facility] Platelet mean volume (Bld) [Entitic vol] 8.0 fL [facility] Platelets (Bld) [#/Vol] 298 10*3/uL 130 - 400 10*3/uL [facility] RBC (Bld) [#/Vol] 4.02 10*6/uL 4 - 6.1 10*6/uL [facility] WBC (Bld) [#/Vol] 10.0 10*3/uL 3.6 - 11 10*3/uL [facility] [employer] CHEM 7 (LYTES,BUN,CREA,GLUC) on 06-01-2019 Chloride [Moles/Vol] 105 mmol/L [facility] CO2 [Moles/Vol] 29 mmol/L [facility] Creatinine [Mass/Vol] 1.29 mg/dL High [facility] GFR/1.73 sq M predicted among blacks MDRD (S/P/Bld) [Vol rate/Area] mL/min/{1.73_m2} ml/min/1.73sq .m [facility] GFR/1.73 sq M predicted among non-blacks MDRD (S/P/Bld) [Vol rate/Area] Average GFR for 70+ years old = 75. [employer] Comment on above: Chronic Kidney disea se, GFR = <60. Kidney failure, GFR = <15. The GFR estimate is not adjusted for extreme body surface area or acute process, nor has it been validated for women or ethnic groups other than and . GFR/1.73 sq M predicted among non-blacks MDRD (S/P/Bld) [Vol rate/Area] 58 mL/min/{1.73_m2} ml/min/1.73sq .m [employer] Glucose post fast [Mass/Vol] 110 mg/dL High [employer] Comment on above: NORMAL <100 mg/dL PREDIABETES 101-126 mg/dL DIABETES 126 mg/dL or higher Potassium [Moles/Vol] 3.4 mmol/L Low [place] Sodium [Moles/Vol] 140 mmol/L [employer] Urea nitrogen [Mass/Vol] 29 mg/dL High [employer] Otheron 06-01-2019 Interpretation and review of laboratory results Abnormal [employer] PROTIME-INRon 06-01-2019 INR Coag (PPP) [Relative time] 1.00 {INR} [employer] Comment on above: 2.0-3.0 THERAPEUTIC RANGE 2.5-3.5 PROSTHETIC VALVE RANGE PT Coag (PPP) [Time] 13.1 s [facility] TROPONINon 06-01-2019 Troponin I.cardiac [Mass/Vol] ng/mL 0 - 0.08 ng/mL [employer] XR CHEST PA AND LATERALon IMPRESSION: 1. No acute cardiopulmonary abnormalities. 2. There is apparent scarring in the right lung apex again noted. [employer] EXAM: XR CHEST PA AND LATERAL 06/01/2019 3:32 PM EST HISTORY: cough, SOB COMPARISON: 12/20/2018. TECHNIQUE: Frontal and lateral views of the chest. FINDINGS: A left-sided cardiac device is again noted. There is scarring in the right lung apex. No definite acute infiltrates. The cardiomediastinal configuration is within normal limits. No acute bony abnormalities. [employer] User, Interfaces - 06/01/2019 3:54 PM EST EXAM: XR CHEST PA AND LATERAL 06/01/2019 3:32 PM EST HISTORY: cough, SOB COMPARISON: 12/20/2018. TECHNIQUE: Frontal and lateral views of the chest. FINDINGS: A left-sided cardiac device is again noted. There is scarring in the right lung apex. No definite acute infiltrates. The cardiomediastinal configuration is within normal limits. No acute bony abnormalities. IMPRESSION IMPRESSION: 1. No acute cardiopulmonary abnormalities. 2. There is apparent scarring in the right lung apex again noted. [employer] 12-20-2018 IMPRESSION: No acute cardiopulmonary disease. Emphysema. Subtle nodular density in the upper right lung. Follow up nonemergent CT is recommended for further evaluation. [employer] XR CHEST PA AND LATERAL, 12/20/2018 10:15 AM EDT CLINICAL STATEMENT: Cough and congestion. COMPARISON: Chest x-ray 07/19/2018. FINDINGS: Frontal and lateral views of the chest were obtained. Left pectoral pacing device is in place with leads in stable position. The cardiomediastinal silhouette is within normal limits. The lungs are hyperinflated. No focal airspace consolidation. There is a small nodular density in the upper right lung not confidently identified on prior study. No pneumothorax or pleural effusion. Visualized portions of the upper abdomen are unremarkable. No acute osseous abnormalities. [employer] User, Interfaces - 12/20/2018 10:49 AM EDT XR CHEST PA AND LATERAL, 12/20/2018 10:15 AM EDT CLINICAL STATEMENT: Cough and congestion. COMPARISON: Chest x-ray 07/19/2018. FINDINGS: Frontal and lateral views of the chest were obtained. Left pectoral pacing device is in place with leads in stable position. The cardiomediastinal silhouette is within normal limits. The lungs are hyperinflated. No focal airspace consolidation. There is a small nodular density in the upper right lung not confidently identified on prior study. No pneumothorax or pleural effusion. Visualized portions of the upper abdomen are unremarkable. No acute osseous abnormalities. IMPRESSION IMPRESSION: No acute cardiopulmonary disease. Emphysema. Subtle nodular density in the upper right lung. Follow up nonemergent CT is recommended for further evaluation. [employer] 11-30-2018 IMPRESSION: Normal resting ABIs with multiphasic waveforms. Waveforms are multiphasic at each station. [employer] CLINICAL DATA: History of abdominal aortic aneurysm. Intermittent claudication. PROCEDURE: 1. Resting ABIs 2. Segmental pressures. COMPARISON: None FINDINGS: Right DEQUAN 1.04. Left DEQUAN 1.02. Waveforms are multiphasic. [employer] User, Interfaces - 11/30/2018 8:00 PM EDT CLINICAL DATA: History of abdominal aortic aneurysm. Intermittent claudication. PROCEDURE: 1. Resting ABIs 2. Segmental pressures. COMPARISON: None FINDINGS: Right DEQUAN 1.04. Left DEQUAN 1.02. Waveforms are multiphasic. IMPRESSION IMPRESSION: Normal resting ABIs with multiphasic waveforms. Waveforms are multiphasic at each station. [facility] US LIMITED DOPPLER ARTERIAL LEGS BILATERALon 11-30-2018 US LIMITED DOPPLER ARTERIAL LEGS BILATERAL CLINICAL DATA: History of abdominal aortic aneurysm. Intermittent claudication. PROCEDURE: 1. Resting ABIs 2. Segmental pressures. COMPARISON: None FINDINGS: Right DEQUAN 1.04. Left DEQUAN 1.02. Waveforms are multiphasic. IMPRESSION: Normal resting ABIs with multiphasic waveforms. Waveforms are multiphasic at each station. Normal [facility] DUPLEX CAROTID BILATERA Luis Eduardo 11-30-2018 [facility] DUPLEX CAROTID BILATERAL DUPLEX ULTRASOUND EXAMINATION OF THE CAROTID ARTERIES. COMPARISON: None. HISTORY / INDICATIONS: Syncopal episode. TECHNIQUE: Bilateral common carotid arteries, extracranial internal and external carotid arteries are evaluated with teran-scale imaging, color Doppler, and spectral analysis according to a standard protocol. ICA-CCA ratios are calculated with chain sales representative peak-systolic velocities and recorded. Vertebral arteries are evaluated in one segment to evaluate for patency and character of flow. Comparison with previous evaluation is performed when available. Unless otherwise specified, all velocities are measured in cm/sec. Carotid stenosis is reported according to validated velocity parameters, similar to NASCET criteria. FINDINGS: Right Carotid: Plaque was noted. Velocity measurements as follows: Internal Carotid Artery 114/43, 82/38, and 90/26. ICA to CCA ratio: 1.2. Left Carotid: Plaque was noted. Velocity measurements as follows: Internal Carotid Artery 102/47, 114/49, and 120/49. ICA to CCA ratio: 1.1. Antegrade flow was seen in both vertebral arteries. CONCLUSION: 1. Less than 50% stenosis of the right ICA. 2. Less than 50% stenosis of the left ICA. 3. Vertebral arteries are patent and demonstrate antegrade flow. Normal [facility] DUPLEX ULTRASOUND EXAMINATION OF THE CAROTID ARTERIES. COMPARISON: None. HISTORY / INDICATIONS: Syncopal episode. TECHNIQUE: Bilateral common carotid arteries, extracranial internal and external carotid arteries are evaluated with teran-scale imaging, color Doppler, and spectral analysis according to a standard protocol. ICA-CCA ratios are calculated with chain sales representative peak-systolic velocities and recorded. Vertebral arteries are evaluated in one segment to evaluate for patency and character of flow. Comparison with previous evaluation is performed when available. Unless otherwise specified, all velocities are measured in cm/sec. Carotid stenosis is reported according to validated velocity parameters, similar to NASCET criteria. FINDINGS: Right Carotid: Plaque was noted. Velocity measurements as follows: Internal Carotid Artery 114/43, 82/38, and 90/26. ICA to CCA ratio: 1.2. Left Carotid: Plaque was noted. Velocity measurements as follows: Internal Carotid Artery 102/47, 114/49, and 120/49. ICA to CCA ratio: 1.1. Antegrade flow was seen in both vertebral arteries. CONCLUSION: 1. Less than 50% stenosis of the right ICA. 2. Less than 50% stenosis of the left ICA. 3. Vertebral arteries are patent and demonstrate antegrade flow. [employer] User, Interfaces - 11/30/2018 8:00 PM EDT DUPLEX ULTRASOUND EXAMINATION OF THE CAROTID ARTERIES. COMPARISON: None. HISTORY / INDICATIONS: Syncopal episode. TECHNIQUE: Bilateral common carotid arteries, extracranial internal and external carotid arteries are evaluated with teran-scale imaging, color Doppler, and spectral analysis according to a standard protocol. ICA-CCA ratios are calculated with chain sales representative peak-systolic velocities and recorded. Vertebral arteries are evaluated in one segment to evaluate for patency and character of flow. Comparison with previous evaluation is performed when available. Unless otherwise specified, all velocities are measured in cm/sec. Carotid stenosis is reported according to validated velocity parameters, similar to NASCET criteria. FINDINGS: Right Carotid: Plaque was noted. Velocity measurements as follows: Internal Carotid Artery 114/43, 82/38, and 90/26. ICA to CCA ratio: 1.2. Left Carotid: Plaque was noted. Velocity measurements as follows: Internal Carotid Artery 102/47, 114/49, and 120/49. ICA to CCA ratio: 1.1. Antegrade flow was seen in both vertebral arteries. CONCLUSION: 1. Less than 50% stenosis of the right ICA. 2. Less than 50% stenosis of the left ICA. 3. Vertebral arteries are patent and demonstrate antegrade flow. [employer] XR CHEST PA AND LATERALon Impression: Hyperinflated lungs with possible small pleural effusions. Invalid Interpretation Code RADIOLOGY XR CHEST PA AND LATERAL 07/19/2018 6:08 AM EST Indication: cough Technique: Routine radiographs of the chest were obtained. Comparison: None. Findings: The lungs are hyperinflated. There may be tiny effusions present. No acute rib fractures, pneumothorax or mediastinal shift. No focal consolidation. Heart is normal in size and contour. Pacemaker present. Invalid Interpretation Code RADIOLOGY User, Interfaces - 07/19/2018 7:00 AM EST XR CHEST PA AND LATERAL 07/19/2018 6:08 AM EST Indication: cough Technique: Routine radiographs of the chest were obtained. Comparison: None. Findings: The lungs are hyperinflated. There may be tiny effusions present. No acute rib fractures, pneumothorax or mediastinal shift. No focal consolidation. Heart is normal in size and contour. Pacemaker present. IMPRESSION Impression: Hyperinflated lungs with possible small pleural effusions. Invalid Interpretation Code RADIOLOGY Blood Cultureon 10-29-2017 Bacteria culture No Growth of aerobic or anaerobic bacteria after 1 day No Growth of aerobic or anaerobic bacteria after 1 day No Growth of aerobic or anaerobic bacteria after 2 days No growth of aerobic or anaerobic bacteria after 5 days of incubation. Normal [facility] Comment on above: Performed By: #### B LC ####[facility] Laboratory ServicesDr. Basim Blackburn MD[address] [place] [id number] Lower Respiratory Tract Cult ureon 10-26-2017 Lower Respiratory Tract Culture Normal severiano of the upper respiratory tract. Normal severiano of the upper respiratory tract only. No organisms considered to be pathogens were isolated. Normal [facility] Comment on above: Performed By: #### S PC ####[facility] Laboratory ServicesDr. Basim Blackburn MD[address] [place] [address] Basic Metabolic Panelon Creatinine 1.260 mg/dL Normal 0.700-1.300 [facility] Comment on above: Performed By: #### B MP ####[facility] Laboratory ServicesDr. Basim Blackburn MD[address] [place] [address] eGFR (non-black) 60 mL/min/{1.73_m2} Normal [facility] Comment on above: Result Comment: K/DO QI Guideline:Stage 1 >/=90 mL/min/1.73m2 - Not Consistent with CKDStage 2 60-89 mL/min/1.73m2 - Consistent with Mild CKDStage 3 30-59 mL/min/1.73m2 - Consistent with Moderate CKDStage 4 15-29 mL/min/1.73m2 - Consistent with Severe CKDStage 5 <15 mL/min/1.73m2 - Consistent with Kidney FailureEstimated Glomerular Filtration Rate (eGFR) is a calculated value utilizingthe MDRD equation and provides an estimate of renal function. The equationassumes a "steady state" and should not be used for patients that meet anyof the following criteria:- Are younger than 18 or older than 70- Have rapidly fluctuating kidney function- Are - Have serious comorbid conditions- Have extremes of body size- Have extremes of muscle mass- Have extremes of nutritional status- Are non- or non-- Have normal kidney function Performed By: #### B MP ####[facility] Laboratory ServicesDrJoycelyn Blackburn [address] [address] Urea nitrogen 20 mg/dL High 7-18 [facility] Comment on above: Performed By: #### B MP ####[facility] Laboratory ServicesDrJoycelyn Blackburn [address] [address] Calcium 8.0 mg/dL Low 8.5-10.1 [facility] Comment on above: Performed By: #### B MP ####[facility] Laboratory ServicesDrJoycelyn Blackburn MD[address] [place] [address] CO2 30.0 mmol/L Normal 21.0-32.0 [facility] Comment on above: Performed By: #### B MP ####[facility] Laboratory ServicesDrJoycelyn Blackburn MD[address] [place] [address] Glucose mass conc 103 mg/dL Normal 74-106 [facility] Comment on above: Performed By: #### B MP ####[facility] Laboratory ServicesDrJoycelyn Blackburn [address] [address] Chloride 108 mmol/L Normal 100-108 [facility] Comment on above: Performed By: #### B MP ####[facility] Laboratory ServicesDr. Basim Blackburn [address] [address] Potassium molar conc 3.8 mmol/L Normal 3.5-5.1 [facility] Comment on above: Performed By: #### B MP ####[facility] Laboratory ServicesDr. Basim Blackburn MD[address] [place] [address] Sodium 142 mmol/L Normal 136-145 [facility] Comment on above: Performed By: #### B MP ####[facility] Laboratory ServicesDr. Basim Blackburn [address] [address] CBC With Platelet and Differ entialon 10-24-2017 Abs. Basophils 0.01 10*3/uL Normal 0.00-0.10 [facility] Comment on above: Performed By: #### C BC ####[facility] Laboratory ServicesDr. Basim Blackburn [address] [address] Basophils/100 WBC Auto (Bld) 0.1 % Normal 0.0-1.3 [facility] Comment on above: Performed By: #### C BC ####[facility] Laboratory ServicesDr. Basim Blackburn [address] [address] Differential Automated Normal [facility] Comment on above: Performed By: #### C BC ####[facility] Laboratory ServicesDr. Basim Blackburn [address] [address] Eosinophils 0.13 10*3/uL Normal 0.00-0.50 [facility] Comment on above: Performed By: #### C BC ####[facility] Laboratory ServicesDr. Basim Blackburn MD[address] [place] [address] Eosinophils/100 leukocytes 1.6 % Normal 0.0-5.8 [facility] Comment on above: Performed By: #### C BC ####[facility] Laboratory ServicesDr. Basim Blackburn [address] [address] Erythrocyte distribution width Auto Ratio (RBC) 14.2 % Normal 11.6-14.8 [facility] Comment on above: Performed By: #### C BC ####[facility] Laboratory ServicesDr. Basim Blackburn [address] [address] Erythrocytes (RBC) 3.54 10*6/uL Low 3.90-5.90 [facility] Comment on above: Performed By: #### C BC ####[facility] Laboratory ServicesDr. Basim Blackburn [address] [address] Hematocrit (HCT) 33.8 % Low 41.0-53.0 [facility] Comment on above: Performed By: #### C BC ####[facility] Laboratory ServicesDr. Basim Blackburn [address] [address] Hemoglobin mass conc (Bld) 10.9 g/dL Low 13.5-17.7 [facility] Comment on above: Performed By: #### C BC ####[facility] Laboratory ServicesDr. Basim Blackburn [address] [address] Lymphocytes 0.78 10*3/uL Low 0.80-3.30 [facility] Comment on above: Performed By: #### C BC ####[facility] Laboratory ServicesDr. Basim Blackburn [address] [address] Lymphocytes/100 leukocytes 9.8 % Low 13.4-45.1 [facility] Comment on above: Performed By: #### C BC ####[facility] Laboratory ServicesDr. Basim Blackburn [id number] [place] [address] MCH 30.8 pg Normal 27.2-33.0 [facility] Comment on above: Performed By: #### C BC ####[facility] Laboratory ServicesDr. Basim Blackburn MD[address] [place] [address] MCHC mass conc (RBC) 32.2 g/dL Normal 31.9-35.1 [facility] Comment on above: Performed By: #### C BC ####[facility] Laboratory ServicesDr. Basim Blackburn [address] [address] MCV 95.5 fL Normal 81.7-97.1 [facility] Comment on above: Performed By: #### C BC ####[facility] Laboratory ServicesDr. Basim Blackburn [address] [address] Monocytes 0.63 10*3/uL Normal 0.30-0.90 [facility] Comment on above: Performed By: #### C BC ####[facility] Laboratory ServicesDr. Basim Blackburn [address] [address] Monocytes/100 leukocytes 7.9 % Normal 4.0-12.7 [facility] Comment on above: Performed By: #### C BC ####[facility] Laboratory ServicesDr. Basim Blackburn [address] [address] Neutrophils 6.34 10*3/uL Normal 1.70-7.00 [facility] Comment on above: Performed By: #### C BC ####[facility] Laboratory ServicesDr. Basim Blackburn [address] [address] Neutrophils/100 leukocytes 79.7 % High 41.1-75.9 [facility] Comment on above: Performed By: #### C BC ####[facility] Laboratory ServicesDr. Basim Blackburn MD[address] [place] [address] Platelet mean volume (PMV) 9.9 fL Normal 8.6-12.2 [facility] Comment on above: Performed By: #### C BC ####[facility] Laboratory ServicesDr. Basim Blackburn [id number] [address] [place] [address] Platelets 217 10*3/uL Normal 133-425 [facility] Comment on above: Performed By: #### C BC ####[facility] Laboratory ServicesDr. Basim Blackburn [id number] [address] [place] [address] WBC (Leukocytes) 8.0 10*3/uL Normal 4.5-11.0 [facility] Comment on above: Performed By: #### C BC ####[facility] Laboratory ServicesDr. Basim Blackburn [id number] [address] [place] [address] CHEST PORTABLE FRONTAL 1Von 10-24-2017 CHEST PORTABLE FRONTAL 1V PROCEDURE:CHEST PORTABLE FRONTAL 1V - 81203 CLINICAL:SHORT OF BREATH Special Instructions: = NA COMPARISON:Chest xray from 09/19/2006 FINDINGS:Bipolar pacing leads unchanged. Cardiac size is thin normal limits unchanged. Focal consolidation at the right lung base on the old study from 2006 has resolved. Mild peribronchial increased markings left mid lung slightly more prominent. This may represent exacerbation of bronchial disease. No focal airspace disease, vascular congestion or effusions. IMPRESSION:Focal consolidation at the right lung base on the old study from 2006 has resolved.Mild peribronchial increased markings left mid lung slightly more prominent. This may represent exacerbation of bronchial disease.No focal airspace disease, vascular congestion or effusions. Electronicall y signed by: Kwesi Haines M.D., MSDate/time: 10-24-2017, 09:13 AM Final Report Normal [facility] Electrocardiogramon 10-25-19 18 Electrocardiogram Normal [facility] Gram Stainon 10-24-2017 Gram Stain This specimen contained <10 squamous epithelial cells and >25leukocytes per low power field. This is consistent with aspecimen that is primarily lower respiratory tract secretionswith little contamination from the upper respiratory tract.Good quality specimen.Many gram positive cocci in chains and clustersFew gram positive bacilli Normal [facility] Comment on above: Performed By: #### G RMRES ####[facility] Laboratory ServicesDr. Basim Blackburn [address] [address] Hepatic Function Panelon Alkaline phosphatase (ALP) 57 U/L Normal 45-117 [facility] Comment on above: Performed By: #### H FP ####[facility] Laboratory ServicesDr. Basim Blackburn [address] [address] Bilirubin (total) 0.4 mg/dL Normal 0.2-1.0 [facility] Comment on above: Performed By: #### H FP ####[facility] Laboratory ServicesDr. Basim Blackburn [address] [address] Protein 5.7 g/dL Low 6.4-8.2 [facility] Comment on above: Performed By: #### H FP ####[facility] Laboratory ServicesDr. Basim Blackburn [address] [address] Alanine aminotransferase (ALT) 34 U/L Normal 13-61 [facility] Comment on above: Performed By: #### H FP ####[facility] Laboratory ServicesDr. Basim Blackburn [address] [address] Aspartate aminotransferase (AST) 13 U/L Low 15-37 [facility] Comment on above: Performed By: #### H FP ####[facility] Laboratory ServicesDr. Basim Blackburn [address] [address] Bilirubin (direct) 0.1 mg/dL Normal 0.0-0.2 [facility] Comment on above: Performed By: #### H FP ####[facility] Laboratory ServicesDr. Basim Blackburn [id number] [address] [place] [address] Albumin 2.3 g/dL Low 3.4-5.0 [facility] Comment on above: Performed By: #### H FP ####[facility] Laboratory ServicesDr. Basim Blackburn MD[address] [place] [address] Procalcitoninon 10-24-2017 Procalcitonin 0.05 ug/L Normal [facility] Comment on above: Result Comment: Proc alcitonin levels of <0.10 micrograms/Liter indicate that abacteriology etiology is very unlikely.Initial antibiotics may be indicated if patient has: - Respiratory or hemodynamic instability - Life-threatening comorbidity - Community-acquired pneumonia with a Pneumonia severity index V - COPD with Global initiative for obstructive lung disease IV - Localised infection (abscess, empyema, L. pneumophila - Compromised hos defense (e.g. immunosuppression other than corticosteroids) - Concomitant infection in need of antibiotic therapyReference: Maria D Carreon, et al. 2009. Effect of procalcitonin-basedguidelines vs standard guidelines on antibiotic use in lowerrespiratory tract infections. The ProHOSP Randomized ControlledTrial. SPENCER 302: [id number] - 1066. Performed By: #### P CT ####[facility] Laboratory ServicesDr. Basim Blackburn MD[address] [place] [address] Troponin Ion 10-24-2017 Troponin I.cardiac mass conc ng/mL Normal 0.000-0.044 [facility] Comment on above: Result Comment: Trop onin-I Reference Range: <0.045 Negative, repeat testing in 4-6 hours if clinically indicated. =>0.045 Indicative of myocardial injury.Erroneous results may be obtained with patients taking high dose biotinsupplements. Performed By: #### T RO ####[facility] Laboratory ServicesDr. Basim Blackburn MD[address] [place] [address] Urgent Care and Emergency De partmenton 10-24-2017 Urgent Care and Emergency Department Normal [facility] Urgent Care and Emergency Department Normal [facility] Vital Signs Date Time Vital Sign Value Performing Clinician Facility 03-01-2025 13:09-0400 Body height 187.[address] Estephania Alvarado MD Work Phone: [facility] 03-01-2025 13:09-0400 Body mass index (BMI) [Ratio] 21.4 kg/m2 Dr. Estephania Alvarado MD Work Phone: [facility] 03-01-2025 13:09-0400 Body temperature 97.8 [degF] Dr. Estephania Alvarado MD Work Phone: [facility] 03-01-2025 13:09-0400 Body weight 75.[address] Estephania Alvarado MD Work Phone: [facility] 03-01-2025 13:09-0400 Diastolic blood pressure 96 mm[Hg] Dr. Estephania Alvarado MD Work Phone: [facility] 03-01-2025 13:09-0400 Heart rate 79 /min Dr. Estephania Alvarado MD Work Phone: [facility] 03-01-2025 13:09-0400 Inhaled oxygen flow rate 2 L/min Dr. Estephania Alvarado MD Work Phone: [facility] 03-01-2025 13:09-0400 Respiratory rate 16 /min Dr. Estephania Alvarado MD Work Phone: [facility] 03-01-2025 13:09-0400 SaO2% (BldA) [Mass fraction] 94 % Dr. Estephania Alvarado MD Work Phone: [facility] 03-01-2025 13:09-0400 Systolic blood pressure 156 mm[Hg] Dr. Estephania Alvarado MD Work Phone: [facility] 02-13-2025 07:52-0400 Body mass index (BMI) [Ratio] 20.9 kg/m2 Dr. Estephania Alvarado MD Work Phone: [facility] 02-13-2025 07:52-0400 Body temperature 97.6 [degF] Dr. Estephania Alvarado MD Work Phone: [facility] 02-13-2025 07:52-0400 Body weight 73.[address] Estephania Alvarado MD Work Phone: [facility] 02-13-2025 07:52-0400 Diastolic blood pressure 75 mm[Hg] Dr. Estephania Alvarado MD Work Phone: [facility] 02-13-2025 07:52-0400 Heart rate 78 /min Dr. Estephania Alvarado MD Work Phone: [facility] 02-13-2025 07:52-0400 Inhaled oxygen flow rate 2 L/min Dr. Estephania Alvarado MD Work Phone: [facility] 02-13-2025 07:52-0400 Respiratory rate 18 /min Dr. Estephania Alvarado MD Work Phone: [facility] 02-13-2025 07:52-0400 SaO2% (BldA) [Mass fraction] 99 % Dr. Estephania Alvarado MD Work Phone: [facility] 02-13-2025 07:52-0400 Systolic blood pressure 124 mm[Hg] Dr. Estephania Alvarado MD Work Phone: [facility] 11-14-2024 08:33-0400 Body mass index (BMI) [Ratio] 21.3 kg/m2 Dr. Estephania Alvarado MD Work Phone: [facility] 11-14-2024 08:33-0400 Body temperature 97.7 [degF] Dr. Estephania Alvarado MD Work Phone: [facility] 11-14-2024 08:33-0400 Body weight 75.[address] Estephania Alvarado MD Work Phone: [facility] 11-14-2024 08:33-0400 Diastolic blood pressure 101 mm[Hg] Dr. Estephania Alvarado MD Work Phone: [facility] 11-14-2024 08:33-0400 Heart rate 83 /min Dr. Estephania Alvarado MD Work Phone: [facility] 11-14-2024 08:33-0400 Inhaled oxygen flow rate 3 L/min Dr. Estephania Alvarado MD Work Phone: [facility] 11-14-2024 08:33-0400 Respiratory rate 18 /min Dr. Estephania Alvarado MD Work Phone: [facility] 11-14-2024 08:33-0400 SaO2% (BldA) [Mass fraction] 98 % Dr. Estephania Alvarado MD Work Phone: [facility] 11-14-2024 08:33-0400 Systolic blood pressure 152 mm[Hg] Dr. Estephania Alvarado MD Work Phone: [facility] 10-26-2024 14:17-0400 Body height 187.[address] Estephania Alvarado MD Work Phone: [facility] 10-26-2024 14:17-0400 Body mass index (BMI) [Ratio] 21.2 kg/m2 Dr. Estephania Alvarado MD Work Phone: [facility] 10-26-2024 14:17-0400 Body temperature 98.6 [degF] Dr. Estephania Alvarado MD Work Phone: [facility] 10-26-2024 14:17-0400 Body weight 74.[address] Estephania Alvarado MD Work Phone: [facility] 10-26-2024 14:17-0400 Diastolic blood pressure 63 mm[Hg] Dr. Estephania Alvarado MD Work Phone: [facility] 10-26-2024 14:17-0400 Heart rate 89 /min Dr. Estephania Alvarado MD Work Phone: [facility] 10-26-2024 14:17-0400 Inhaled oxygen flow rate 2.5 L/min Dr. Estephania Alvarado MD Work Phone: [facility] 10-26-2024 14:17-0400 Respiratory rate 16 /min Dr. Estephania Alvarado MD Work Phone: [facility] 10-26-2024 14:17-0400 SaO2% (BldA) [Mass fraction] 94 % Dr. Estephania Alvarado MD Work Phone: [facility] 10-26-2024 14:17-0400 Systolic blood pressure 108 mm[Hg] Dr. Estephania Alvarado MD Work Phone: [facility] 10-24-2024 08:20-0400 Body height 188 cm Artemio Edmondson MD Work Phone: [facility] 10-24-2024 08:20-0400 Body mass index (BMI) [Ratio] 21.44 kg/m2 Artemio Edmondson MD Work Phone: [facility] 10-24-2024 08:20-0400 Body temperature 97.2 [degF] Artemio Edmondson MD Work Phone: [facility] 10-24-2024 08:20-0400 Body weight 75.75 kg Artemio Edmondson MD Work Phone: [facility] 10-24-2024 08:20-0400 Diastolic blood pressure 81 mm[Hg] Artemio Edmondson MD Work Phone: [facility] 10-24-2024 08:20-0400 Heart rate 83 /min Artemio Edmondson MD Work Phone: [facility] 10-24-2024 08:20-0400 Respiratory rate 18 /min Artemio Edmondson MD Work Phone: [facility] 10-24-2024 08:20-0400 SaO2% (BldA) [Mass fraction] 95 % Artemio Edmondson MD Work Phone: [facility] 10-24-2024 08:20-0400 Systolic blood pressure 147 mm[Hg] Artemio Edmondson MD Work Phone: [facility] 09-17-2024 01:14-0500 Body weight 75.[address] Estephania Alvarado MD Work Phone: [facility] 09-15-2024 09:24-0500 Body height 187.[address] Estephania Alvarado MD Work Phone: [facility] 09-15-2024 09:24-0500 Body weight 75.[address] Estephania Alvarado MD Work Phone: [facility] 08-31-2024 13:02-0500 Body mass index (BMI) [Ratio] 21.4 kg/m2 Dr. Estephania Alvarado MD Work Phone: [facility] 08-31-2024 13:02-0500 Body temperature 97.8 [degF] Dr. Estephania Alvarado MD Work Phone: [facility] 08-31-2024 13:02-0500 Body weight 75.[address] Estephania Alvarado MD Work Phone: [facility] 08-31-2024 13:02-0500 Diastolic blood pressure 81 mm[Hg] Dr. Estephania Alvarado MD Work Phone: [facility] 08-31-2024 13:02-0500 Heart rate 87 /min Dr. Estephania Alvarado MD Work Phone: [facility] 08-31-2024 13:02-0500 Inhaled oxygen flow rate 2 L/min Dr. Estephania Alvarado MD Work Phone: [facility] 08-31-2024 13:02-0500 Respiratory rate 16 /min Dr. Estephania Alvarado MD Work Phone: [facility] 08-31-2024 13:02-0500 SaO2% (BldA) [Mass fraction] 96 % Dr. Estephania Alvarado MD Work Phone: [facility] 08-31-2024 13:02-0500 Systolic blood pressure 149 mm[Hg] Dr. Estephania Alvarado MD Work Phone: [facility] 08-12-2024 01:35-0500 Body mass index (BMI) [Ratio] 21.3 kg/m2 Dr. Estephania Alvarado MD Work Phone: [facility] 08-12-2024 01:35-0500 Body temperature 97.3 [degF] Dr. Estephania Alvarado MD Work Phone: [facility] 08-12-2024 01:35-0500 Body weight 75.[address] Estephania Alvarado MD Work Phone: [facility] 08-12-2024 01:35-0500 Diastolic blood pressure 78 mm[Hg] Dr. Estephania Alvarado MD Work Phone: [facility] 08-12-2024 01:35-0500 Heart rate 77 /min Dr. Estephania Alvarado MD Work Phone: [facility] 08-12-2024 01:35-0500 Inhaled oxygen flow rate 3 L/min Dr. Estephania Alvarado MD Work Phone: [facility] 08-12-2024 01:35-0500 Respiratory rate 18 /min Dr. Estephania Alvarado MD Work Phone: [facility] 08-12-2024 01:35-0500 SaO2% (BldA) [Mass fraction] 98 % Dr. Estephania Alvarado MD Work Phone: [facility] 08-12-2024 01:35-0500 Systolic blood pressure 135 mm[Hg] Dr. Estephania Alvarado MD Work Phone: [facility] 07-29-2024 07:21-0500 Body weight 75.[address] Estephania Alvarado MD Work Phone: [facility] 07-21-2024 13:54-0500 Body mass index (BMI) [Ratio] 21.2 kg/m2 Dr. Estephania Alvarado MD Work Phone: [facility] 07-21-2024 13:54-0500 Body weight 74.[address] Estephania Alvarado MD Work Phone: [facility] 07-21-2024 13:54-0500 Diastolic blood pressure 68 mm[Hg] Dr. Estephania Alvarado MD Work Phone: [facility] 07-21-2024 13:54-0500 Heart rate 82 /min Dr. Estephania Alvarado MD Work Phone: [facility] 07-21-2024 13:54-0500 Inhaled oxygen flow rate 3 L/min Dr. Estephania Alvarado MD Work Phone: [facility] 07-21-2024 13:54-0500 Respiratory rate 18 /min Dr. Estephaina Alvarado MD Work Phone: [facility] 07-21-2024 13:54-0500 SaO2% (BldA) [Mass fraction] 96 % Dr. Estephania Alvarado MD Work Phone: [facility] 07-21-2024 13:54-0500 Systolic blood pressure 108 mm[Hg] Dr. Estephania Alvarado MD Work Phone: [facility] 06-29-2024 09:00-0500 Body weight 73.[address] Estephania Alvarado MD Work Phone: [facility] 04-19-2024 19:53-0400 Diastolic blood pressure 60 mm[Hg] Dave Espinal MD Work Phone: [facility] 04-19-2024 19:53-0400 Heart rate 88 /min Dave Espinal MD Work Phone: [facility] 04-19-2024 19:53-0400 Respiratory rate 16 /min Dave Espinal MD Work Phone: [facility] 04-19-2024 19:53-0400 SaO2% (BldA) [Mass fraction] 100 % Dave Espinal MD Work Phone: [employer] 04-19-2024 19:53-0400 Systolic blood pressure 125 mm[Hg] Dave Espinal MD Work Phone: [facility] 04-19-2024 17:25-0400 Body temperature 98.49 [degF] Dave Espinal MD Work Phone: [facility] 04-19-2024 17:24-0400 Body height 188 cm Dave Espinal MD Work Phone: [facility] 04-19-2024 17:24-0400 Body mass index (BMI) [Ratio] 19.9 kg/m2 Dave Espinal MD Work Phone: [facility] 04-19-2024 17:24-0400 Body weight 70.31 kg Dave Espinal MD Work Phone: [facility] 03-20-2024 16:22-0400 Body height 188 cm Aruna Dackin PA Work Phone: [facility] 03-20-2024 16:22-0400 Body mass index (BMI) [Ratio] 19.77 kg/m2 Aruna Dackin PA Work Phone: [facility] 03-20-2024 16:22-0400 Body temperature 97.81 [degF] Aruna Dackin PA Work Phone: [facility] 03-20-2024 16:22-0400 Body weight 69.85 kg Aruna Dackin PA Work Phone: [facility] 03-20-2024 16:22-0400 Diastolic blood pressure 85 mm[Hg] Rauna Dackin PA Work Phone: [facility] 03-20-2024 16:22-0400 Heart rate 99 /min Aruna Dackin PA Work Phone: [employer] 03-20-2024 16:22-0400 Respiratory rate 22 /min Aruna Dackin PA Work Phone: [employer] [facility] 03-20-2024 16:22-0400 SaO2% (BldA) [Mass fraction] 100 % Aruna Flowervalentín PA Work Phone: [employer] [facility] 03-20-2024 16:22-0400 Systolic blood pressure 144 mm[Hg] Aruna Deacon PA Work Phone: [employer] [facility] 02-25-2024 11:51-0400 Heart rate 70 /min Mike East MD Work Phone: [employer] 02-25-2024 11:51-0400 Respiratory rate 16 /min Mike East MD Work Phone: [employer] 02-25-2024 11:51-0400 SaO2% (BldA) [Mass fraction] 100 % Mike East MD Work Phone: [employer] 02-25-2024 11:01-0400 Body temperature 94.89 [degF] Mike East MD Work Phone: [employer] 02-25-2024 11:01-0400 Diastolic blood pressure 75 mm[Hg] Mike East MD Work Phone: [employer] 02-25-2024 11:01-0400 Systolic blood pressure 139 mm[Hg] Mike East MD Work Phone: [employer] 02-25-2024 05:51-0400 Body mass index (BMI) [Ratio] 19.9 kg/m2 Mike East MD Work Phone: [employer] 02-25-2024 05:51-0400 Body weight 70.3 kg Mike East MD Work Phone: [employer] Comment on above: bed 02-09-2024 12:00-0400 Body temperature 97.9 [degF] Amado Vargas MD Work Phone: [employer] 02-09-2024 12:00-0400 Diastolic blood pressure 70 mm[Hg] Amado Vargas MD Work Phone: [employer] 02-09-2024 12:00-0400 Heart rate 74 /min Amado Vargas MD Work Phone: [facility] 02-09-2024 12:00-0400 Respiratory rate 16 /min Amado Vargas MD Work Phone: [facility] 02-09-2024 12:00-0400 SaO2% (BldA) [Mass fraction] 95 % Amado Vargas MD Work Phone: [facility] 02-09-2024 12:00-0400 Systolic blood pressure 120 mm[Hg] Amado Vargas MD Work Phone: [facility] 02-09-2024 05:30-0400 Body mass index (BMI) [Ratio] 20.75 kg/m2 Amado Vargas MD Work Phone: [facility] 02-09-2024 05:30-0400 Body weight 73.3 kg Amado Vargas MD Work Phone: [facility] 02-03-2024 08:50-0400 Body height 188 cm Amado Vargas MD Work Phone: [facility] 02-03-2024 04:22-0400 SaO2% (BldA) [Mass fraction] 98.0 % Amado Vargas MD Work Phone: [facility] 02-02-2024 19:41-0400 SaO2% (BldA) [Mass fraction] 98.0 % Amado Vargas MD Work Phone: [facility] 02-02-2024 16:45-0400 SaO2% (BldA) [Mass fraction] 98.1 % Amado Vargas MD Work Phone: [facility] 02-02-2024 14:35-0400 SaO2% (BldA) [Mass fraction] 98.2 % Amado Vargas MD Work Phone: [facility] 02-02-2024 12:56-0400 SaO2% (BldA) [Mass fraction] 98.5 % Amado Vargas MD Work Phone: [facility] 02-02-2024 11:47-0400 SaO2% (BldA) [Mass fraction] 98.7 % Amado Vargas MD Work Phone: [employer] [facility] 01-19-2024 14:30-0400 Body weight 68.04 kg Amado Vargas MD Work Phone: [facility] 01-19-2024 14:30-0400 Diastolic blood pressure 88 mm[Hg] Amado Vargas MD Work Phone: [facility] 01-19-2024 14:30-0400 Heart rate 60 /min Amado Vargas MD Work Phone: [employer] [facility] 01-19-2024 14:30-0400 Systolic blood pressure 145 mm[Hg] Amado Vargas MD Work Phone: [facility] 12-16-2023 00:48-0400 Diastolic blood pressure 94 mm[Hg] Dylon Mccain MD Work Phone: [employer] [facility] 12-16-2023 00:48-0400 Heart rate 60 /min Dylon Mccain MD Work Phone: [employer] [facility] 12-16-2023 00:48-0400 Respiratory rate 14 /min Dylon Mccain MD Work Phone: [employer] [facility] 12-16-2023 00:48-0400 SaO2% (BldA) [Mass fraction] 97 % Dylon [facility]ccain [facility] 12-16-2023 00:48-0400 Systolic blood pressure 170 mm[Hg] Dylon Mccain MD Work Phone: [employer] [facility] 12-15-2023 20:49-0400 Body height 188 cm Dylon [facility]ccain MD [facility] 12-15-2023 20:48-0400 Body temperature 98.2 [degF] Dylon Mccain MD Work Phone: [employer] [facility] 10-26-2023 12:19-0400 Diastolic blood pressure 71 mm[Hg] Dylon Mccain MD Work Phone: [facility] 10-26-2023 12:19-0400 Heart rate 77 /min Dylon Mccain MD Work Phone: 3(251)225-7229[address] [place] [address] 10-26-2023 12:19-0400 Respiratory rate 18 /min Dylon Mccain MD Work Phone: 5(733)512-644601 [place] [address] 10-26-2023 12:19-0400 Systolic blood pressure 117 mm[Hg] Dylon Mccain MD Work Phone: 3(523)182-741701 [place] [address] 10-26-2023 11:20-0400 Body temperature 98.4 [degF] Dylon Mccain MD Work Phone: 9(082)050-742301 [place] [address] 10-26-2023 11:20-0400 SaO2% (BldA) [Mass fraction] 100 % Dylon Mccain MD Work Phone: [facility] 10-26-2023 10:04-0400 Body height 188 cm Gianna Strickland PA-C Work Phone: [facility] 10-26-2023 10:04-0400 Body mass index (BMI) [Ratio] 19.64 kg/m2 Gianna Perezert PA-C Work Phone: [facility] 10-26-2023 10:04-0400 Body weight 69.4 kg Gianna Perezert PA-C Work Phone: [facility] 10-26-2023 10:04-0400 Diastolic blood pressure 45 mm[Hg] Gianna Perezert PA-C Work Phone: [facility] 10-26-2023 10:04-0400 Heart rate 67 /min Gainna Perezert PA-C Work Phone: [facility] 10-26-2023 10:04-0400 Respiratory rate 16 /min Gianna Perezert PA-C Work Phone: [facility] 10-26-2023 10:04-0400 SaO2% (BldA) [Mass fraction] 85 % Gianna Lambert PA-C Work Phone: [facility] 10-26-2023 10:04-0400 Systolic blood pressure 85 mm[Hg] Gianna Lambert PA-C Work Phone: 2(091)569-464463 [place] [address] 10-08-2023 09:44-0400 Body height 188 cm Gianna Lambert PA-C Work Phone: 0(743)235-276863 [place] [address] 10-08-2023 09:44-0400 Body mass index (BMI) [Ratio] 19.77 kg/m2 Gianna Lambert PA-C Work Phone: 6(375)747-334463 [place] [address] 10-08-2023 09:44-0400 Body temperature 97.5 [degF] Gianna Lambert PA-C Work Phone: 3(165)803-425263 [place] [address] 10-08-2023 09:44-0400 Body weight 69.85 kg Gianna Lambert PA-C Work Phone: 9(541)482-421978 [place] [address] 10-08-2023 09:44-0400 Diastolic blood pressure 90 mm[Hg] Gianna Lambert PA-C Work Phone: 6(200)490-452578 [place] [address] 10-08-2023 09:44-0400 Heart rate 59 /min Gianna Lambert PA-C Work Phone: 4(956)328-765778 [place] [address] 10-08-2023 09:44-0400 Respiratory rate 16 /min Gianna Lambert PA-C Work Phone: 7(190)962-083478 [place] [address] 10-08-2023 09:44-0400 SaO2% (BldA) [Mass fraction] 95 % Gianna Lambert PA-C Work Phone: 9(173)343-204478 [place] [address] 10-08-2023 09:44-0400 Systolic blood pressure 161 mm[Hg] Gianna Lambert PA-C Work Phone: 9(013)102-966763 [place] [address] 10-01-2023 13:11-0400 Body height 187.[address] Estephania Alvarado Work Phone: [facility] 10-01-2023 13:11-0400 Body mass index (BMI) [Ratio] 19.6 kg/m2 Dr. Estephania Alvarado Work Phone: [facility] 10-01-2023 13:11-0400 Body weight 69.[address] Estephania Alvarado Work Phone: [facility] 10-01-2023 13:11-0400 Diastolic blood pressure 90 mm[Hg] Dr. Estephania Alvarado Work Phone: [facility] 10-01-2023 13:11-0400 Heart rate 60 /min Dr. Estephania Alvarado Work Phone: [facility] 10-01-2023 13:11-0400 Inhaled oxygen flow rate 3 L/min Dr. Estephania Alvarado Work Phone: [facility] 10-01-2023 13:11-0400 Respiratory rate 18 /min Dr. Estephania Alvarado Work Phone: [facility] 10-01-2023 13:11-0400 SaO2% (BldA) [Mass fraction] 99 % Dr. Estephania Alvarado Work Phone: [facility] 10-01-2023 13:11-0400 Systolic blood pressure 145 mm[Hg] Dr. Estephania Alvarado Work Phone: [facility] 09-10-2023 05:59-0500 Body mass index (BMI) [Ratio] 19.7 kg/m2 Dr. Estephania Alvarado Work Phone: [facility] 09-10-2023 05:59-0500 Body temperature 97.7 [degF] Dr. Estehpania Alvarado Work Phone: [facility] 09-10-2023 05:59-0500 Body weight 69.[address] Estephania Alvarado Work Phone: [facility] 09-10-2023 05:59-0500 Diastolic blood pressure 90 mm[Hg] Dr. Estephania Alvarado Work Phone: [facility] 09-10-2023 05:59-0500 Heart rate 60 /min Dr. Estephania Alvarado Work Phone: [facility] 09-10-2023 05:59-0500 Inhaled oxygen flow rate 3 L/min Dr. Estephania Alvarado Work Phone: [facility] 09-10-2023 05:59-0500 Respiratory rate 18 /min Dr. Estephania Alvarado Work Phone: [facility] 09-10-2023 05:59-0500 SaO2% (BldA) [Mass fraction] 98 % Dr. Estephania Alvarado Work Phone: [facility] 09-10-2023 05:59-0500 Systolic blood pressure 152 mm[Hg] Dr. Estephania Alvarado Work Phone: [facility] 08-05-2023 17:18-0500 Heart rate 60 /min Dr. Estephania Alvarado Work Phone: [facility] 08-05-2023 17:18-0500 Respiratory rate 17 /min Dr. Estephania Alvarado Work Phone: [facility] 08-05-2023 17:18-0500 SaO2% (BldA) [Mass fraction] 100 % Dr. Estephania Alvarado Work Phone: [facility] 08-05-2023 14:25-0500 Inhaled oxygen flow rate 3 L/min Dr. Estephania Alvarado Work Phone: [facility] 08-05-2023 14:14-0500 Body height 187.[address] Estephania Alvarado Work Phone: [facility] 08-05-2023 14:14-0500 Body temperature 98 [degF] Dr. Estephania Alvarado Work Phone: [facility] 08-05-2023 14:14-0500 Diastolic blood pressure 67 mm[Hg] Dr. Estephania Alvarado Work Phone: [facility] 08-05-2023 14:14-0500 Systolic blood pressure 201 mm[Hg] Dr. Estephania Alvarado Work Phone: [facility] 07-10-2023 16:18-0500 Diastolic blood pressure 87 mm[Hg] Jeannine Fuentes MD Work Phone: [facility] 07-10-2023 16:18-0500 Respiratory rate 16 /min Jeannine Fuentes MD Work Phone: [facility] 07-10-2023 16:18-0500 SaO2% (BldA) [Mass fraction] 97 % Jeannine Fuentes MD Work Phone: [facility] 07-10-2023 16:18-0500 Systolic blood pressure 178 mm[Hg] Jeannine Fuentes MD Work Phone: [facility] 07-10-2023 16:00-0500 Heart rate 60 /min Jeannine Fuentes MD Work Phone: [facility] 07-10-2023 14:18-0500 Body height 188 cm Jeannine Fuentes MD Work Phone: [facility] 07-10-2023 14:16-0500 Body temperature 97.81 [degF] Jeannine Fuentes MD Work Phone: [facility] 05-11-2023 07:59-0400 Body mass index (BMI) [Ratio] 19.8 kg/m2 Dr. Estephania Alvarado Work Phone: [facility] 05-11-2023 07:59-0400 Body temperature 96.2 [degF] Dr. Estephania Alvarado Work Phone: [facility] 05-11-2023 07:59-0400 Body weight 69.[address] Estephaina Alvarado Work Phone: [facility] 05-11-2023 07:59-0400 Diastolic blood pressure 89 mm[Hg] Dr. Estephania Alvarado Work Phone: [facility] 05-11-2023 07:59-0400 Heart rate 59 /min Dr. Estephania Alvarado Work Phone: [facility] 05-11-2023 07:59-0400 Inhaled oxygen flow rate 3 L/min Dr. Estephania Alvarado Work Phone: [facility] 05-11-2023 07:59-0400 Respiratory rate 18 /min Dr. Estephania Alvarado Work Phone: [facility] 05-11-2023 07:59-0400 Systolic blood pressure 168 mm[Hg] Dr. Estephania Alvarado Work Phone: [facility] 04-06-2023 07:43-0400 Body height 187.[address] Estephania Alvarado Work Phone: [facility] 04-06-2023 07:43-0400 Body mass index (BMI) [Ratio] 20.1 kg/m2 Dr. Estephania Alvarado Work Phone: [facility] 04-06-2023 07:43-0400 Body temperature 96.1 [degF] Dr. Estephania Alvarado Work Phone: [facility] 04-06-2023 07:43-0400 Body weight 71.[address] Estephania Alvarado Work Phone: [facility] 04-06-2023 07:43-0400 Diastolic blood pressure 83 mm[Hg] Dr. Estephania Alvarado Work Phone: [facility] 04-06-2023 07:43-0400 Heart rate 66 /min Dr. Estephania Alvarado Work Phone: [facility] 04-06-2023 07:43-0400 Respiratory rate 20 /min Dr. Estephania Alvarado Work Phone: [facility] 04-06-2023 07:43-0400 SaO2% (BldA) [Mass fraction] 99 % Dr. Estephania Alvarado Work Phone: [facility] 04-06-2023 07:43-0400 Systolic blood pressure 124 mm[Hg] Dr. Estephania Alvarado Work Phone: [facility] 03-27-2023 10:42-0400 Body height 187.[address] Estephania Alvarado Work Phone: [facility] 03-27-2023 10:42-0400 Body mass index (BMI) [Ratio] 19.8 kg/m2 Dr. Estephania Alvarado Work Phone: [facility] 03-27-2023 10:42-0400 Body weight 69.[address] Estephania Alvarado Work Phone: [facility] 03-27-2023 10:42-0400 Diastolic blood pressure 92 mm[Hg] Dr. Estephania Alvarado Work Phone: [facility] 03-27-2023 10:42-0400 Heart rate 60 /min Dr. Estephania Alvarado Work Phone: [facility] 03-27-2023 10:42-0400 Respiratory rate 18 /min Dr. Estephania Alvarado Work Phone: [facility] 03-27-2023 10:42-0400 SaO2% (BldA) [Mass fraction] 2 % Dr. Estephania Alvarado Work Phone: [facility] 03-27-2023 10:42-0400 Systolic blood pressure 137 mm[Hg] Dr. Estephania Alvarado Work Phone: [facility] 01-22-2023 13:45-0400 Body height 187.[address] Estephania Alvarado Work Phone: [facility] 01-22-2023 13:45-0400 Body weight 72.[address] Estephania Alvarado Work Phone: [facility] 01-22-2023 13:45-0400 Heart rate 60 /min Dr. Estephania Alvarado Work Phone: [facility] 01-22-2023 13:45-0400 Inhaled oxygen flow rate 3 L/min Dr. Estephania Alvarado Work Phone: [facility] 01-22-2023 13:45-0400 SaO2% (BldA) [Mass fraction] 97 % Dr. Estephania Alvarado Work Phone: [facility] 12-31-2022 10:00-0400 Body height 187.[address] Estephania Alvarado Work Phone: [facility] 12-31-2022 09:55-0400 Body mass index (BMI) [Ratio] 20.2 kg/m2 Dr. Estephania Alvarado Work Phone: [facility] 12-31-2022 09:55-0400 Body temperature 97.6 [degF] Dr. Estephania Alvarado Work Phone: [facility] 12-31-2022 09:55-0400 Body weight 71.[address] Estephania Alvarado Work Phone: [facility] 12-31-2022 09:55-0400 Diastolic blood pressure 81 mm[Hg] Dr. Estephania Alvarado Work Phone: [facility] 12-31-2022 09:55-0400 Heart rate 58 /min Dr. Estephania Alvarado Work Phone: [facility] 12-31-2022 09:55-0400 Respiratory rate 18 /min Dr. Estephania Alvarado Work Phone: [facility] 12-31-2022 09:55-0400 SaO2% (BldA) [Mass fraction] 90 % Dr. Estephania Alvarado Work Phone: [facility] 12-31-2022 09:55-0400 Systolic blood pressure 156 mm[Hg] Dr. Estephania Alvarado Work Phone: [facility] 12-17-2022 13:09-0400 Body mass index (BMI) [Ratio] 20.8 kg/m2 Dr. Estephania Alvarado Work Phone: [facility] 12-17-2022 13:09-0400 Body temperature 98.6 [degF] Dr. Estephania Alvarado Work Phone: [facility] 12-17-2022 13:09-0400 Body weight 73.[address] Estephania Alvarado Work Phone: [facility] 12-17-2022 13:09-0400 Diastolic blood pressure 66 mm[Hg] Dr. Estephania Alvarado Work Phone: [facility] 12-17-2022 13:09-0400 Heart rate 60 /min Dr. Estephania Alvarado Work Phone: [facility] 12-17-2022 13:09-0400 Respiratory rate 18 /min Dr. Estephania Alvarado Work Phone: [facility] 12-17-2022 13:09-0400 SaO2% (BldA) [Mass fraction] 94 % Dr. Estephania Alvarado Work Phone: [facility] 12-17-2022 13:09-0400 Systolic blood pressure 120 mm[Hg] Dr. Estephania Alvarado Work Phone: [facility] 11-28-2022 18:54-0400 Diastolic blood pressure 74 mm[Hg] Artemio Ivan MD Work Phone: [facility] 11-28-2022 18:54-0400 Heart rate 82 /min Artemio Ivan MD Work Phone: [facility] 11-28-2022 18:54-0400 Respiratory rate 18 /min Artemio Ivan MD Work Phone: [facility] 11-28-2022 18:54-0400 Systolic blood pressure 152 mm[Hg] Artemio Ivan MD Work Phone: [facility] 11-28-2022 17:53-0400 SaO2% (BldA) [Mass fraction] 96 % Artemio Ivan MD Work Phone: [facility] 11-28-2022 17:29-0400 Body height 188 cm Artemio Ivan MD Work Phone: [facility] 11-28-2022 17:29-0400 Body mass index (BMI) [Ratio] 23.37 kg/m2 Artemio Ivan MD Work Phone: [facility] 11-28-2022 17:29-0400 Body weight 82.56 kg Artemio Ivan MD Work Phone: [facility] 11-28-2022 17:27-0400 Body temperature 97.7 [degF] Artemio Ivan MD Work Phone: [facility] 08-23-2022 15:44-0500 Body temperature 97.7 [degF] Dr. Estephania Alvarado Work Phone: [facility] 08-23-2022 15:44-0500 Diastolic blood pressure 62 mm[Hg] Dr. Estephania Alvarado Work Phone: [facility] 08-23-2022 15:44-0500 Heart rate 69 /min Dr. Estephania Alvarado Work Phone: [facility] 08-23-2022 15:44-0500 Respiratory rate 18 /min Dr. Estephania Alvarado Work Phone: [facility] 08-23-2022 15:44-0500 SaO2% (BldA) [Mass fraction] 96 % Dr. Estephania Alvarado Work Phone: [facility] 08-23-2022 15:44-0500 Systolic blood pressure 111 mm[Hg] Dr. Estephania Alvarado Work Phone: [facility] 08-23-2022 10:14-0500 Body height 187.[address] Estephania Alvarado Work Phone: [facility] 08-23-2022 10:14-0500 Body weight 72.[address] Estephania Alvarado Work Phone: [facility] 08-23-2022 09:34-0500 Inhaled oxygen flow rate 2 L/min Dr. Estephania Alvarado Work Phone: [facility] 08-22-2022 18:10-0500 Body mass index (BMI) [Ratio] 20.5 kg/m2 Dr. Estephania Alvarado Work Phone: [facility] 08-22-2022 17:15-0500 Body temperature 98.4 [degF] Dr. Estephania Alvarado Work Phone: [facility] 08-22-2022 17:15-0500 Diastolic blood pressure 62 mm[Hg] Dr. Estephania Alvarado Work Phone: [facility] 08-22-2022 17:15-0500 Heart rate 106 /min Dr. Estephania Alvarado Work Phone: [facility] 08-22-2022 17:15-0500 Inhaled oxygen flow rate 3 L/min Dr. Estephania Alvarado Work Phone: [facility] 08-22-2022 17:15-0500 Respiratory rate 24 /min Dr. Estephania Alvarado Work Phone: [facility] 08-22-2022 17:15-0500 SaO2% (BldA) [Mass fraction] 96 % Dr. Estephania Alvarado Work Phone: [facility] 08-22-2022 17:15-0500 Systolic blood pressure 106 mm[Hg] Dr. Estephania Alvarado Work Phone: [facility] 08-22-2022 13:26-0500 Body height 187.[address] Estephania Alvarado Work Phone: [facility] 08-22-2022 13:26-0500 Body mass index (BMI) [Ratio] 23.1 kg/m2 Dr. Estephania Alvarado Work Phone: [facility] 08-22-2022 13:26-0500 Body weight 81.[address] Estephania Alvarado Work Phone: [facility] 07-07-2022 10:53-0500 Body mass index (BMI) [Ratio] 20.8 kg/m2 Dr. Estephania Alvarado Work Phone: [facility] 07-07-2022 10:53-0500 Body weight 73.[address] Estephania Alvarado Work Phone: [facility] 07-07-2022 10:53-0500 Diastolic blood pressure 68 mm[Hg] Dr. Estephania Alvarado Work Phone: [facility] 07-07-2022 10:53-0500 Heart rate 60 /min Dr. Estephania Alvarado Work Phone: [facility] 07-07-2022 10:53-0500 Respiratory rate 18 /min Dr. Estephania Alvarado Work Phone: [facility] 07-07-2022 10:53-0500 Systolic blood pressure 102 mm[Hg] Dr. Estephania Alvarado Work Phone: [facility] 05-22-2022 09:10-0400 Body mass index (BMI) [Ratio] 20.4 kg/m2 Dr. Estephania Alvarado Work Phone: [facility] 05-22-2022 09:10-0400 Body temperature 96.2 [degF] Dr. Estephania Alvarado Work Phone: [facility] 05-22-2022 09:10-0400 Body weight 72.[address] Estephania Alvarado Work Phone: [facility] 05-22-2022 09:10-0400 Diastolic blood pressure 84 mm[Hg] Dr. Estephania Alvarado Work Phone: [facility] 05-22-2022 09:10-0400 Heart rate 59 /min Dr. Estephania Alvarado Work Phone: [facility] 05-22-2022 09:10-0400 Respiratory rate 18 /min Dr. Estephania Alvarado Work Phone: [facility] 05-22-2022 09:10-0400 SaO2% (BldA) [Mass fraction] 91 % Dr. Estephania Alvarado Work Phone: [facility] 05-22-2022 09:10-0400 Systolic blood pressure 147 mm[Hg] Dr. Estephania Alvarado Work Phone: [facility] 03-19-2022 09:10-0400 Body temperature 97.8 [degF] Dr. Estephania Alvarado Work Phone: [facility] Work Phone: 03-19-2022 09:10-0400 Body weight 68.[address] Estephania Alvarado Work Phone: [facility] Work Phone: 03-19-2022 09:10-0400 Diastolic blood pressure 68 mm[Hg] Dr. Estephania Alvarado Work Phone: [facility] Work Phone: 03-19-2022 09:10-0400 Heart rate 63 /min Dr. Estephania Alvarado Work Phone: [facility] Work Phone: 03-19-2022 09:10-0400 Respiratory rate 18 /min Dr. Estephania Alvarado Work Phone: [facility] Work Phone: 03-19-2022 09:10-0400 SaO2% (BldA) [Mass fraction] 97 % Dr. Estephania Alvarado Work Phone: [facility] Work Phone: 03-19-2022 09:10-0400 Systolic blood pressure 124 mm[Hg] Dr. Estephania Alvarado Work Phone: [facility] Work Phone: 02-14-2022 08:38-0400 Body height 187.[address] Estephania Alvarado Work Phone: [facility] Work Phone: 02-14-2022 08:38-0400 Body mass index (BMI) [Ratio] 19.5 kg/m2 Dr. Estephania Alvarado Work Phone: [facility] Work Phone: 02-14-2022 08:38-0400 Body weight 68.[address] Estephania Alvarado Work Phone: [facility] Work Phone: 02-14-2022 08:38-0400 Diastolic blood pressure 65 mm[Hg] Dr. Estephania Alvarado Work Phone: [facility] Work Phone: 02-14-2022 08:38-0400 Heart rate 61 /min Dr. Estephania Alvarado Work Phone: [facility] Work Phone: 02-14-2022 08:38-0400 Respiratory rate 18 /min Dr. Estephania Alvarado Work Phone: [facility] Work Phone: 02-14-2022 08:38-0400 Systolic blood pressure 116 mm[Hg] Dr. Estephania Alvarado Work Phone: [facility] Work Phone: 01-22-2022 15:57-0400 Body height 187.[address] Estephania Alvarado Work Phone: [facility] Work Phone: 01-22-2022 15:57-0400 Body mass index (BMI) [Ratio] 19.9 kg/m2 Dr. Estephania Alvarado Work Phone: [facility] Work Phone: 01-22-2022 15:57-0400 Body weight 70.[address] Estephania Alvarado Work Phone: [facility] Work Phone: 01-22-2022 15:57-0400 Diastolic blood pressure 66 mm[Hg] Dr. Estephania Alvarado Work Phone: [facility] Work Phone: 01-22-2022 15:57-0400 Heart rate 79 /min Dr. Estephania Alvarado Work Phone: [facility] Work Phone: 01-22-2022 15:57-0400 Respiratory rate 26 /min Dr. Estephania Alvarado Work Phone: [facility] Work Phone: 01-22-2022 15:57-0400 SaO2% (BldA) [Mass fraction] 96 % Dr. Estephania Alvarado Work Phone: [facility] Work Phone: 01-22-2022 15:57-0400 Systolic blood pressure 142 mm[Hg] Dr. Estephania Alvarado Work Phone: [facility] Work Phone: 01-17-2022 13:37-0400 Body weight 70.[address] Estephania Alvarado Work Phone: [facility] Work Phone: 01-17-2022 13:37-0400 Heart rate 60 /min Dr. Estephania Alvarado Work Phone: [facility] Work Phone: 01-17-2022 13:37-0400 SaO2% (BldA) [Mass fraction] 98 % Dr. Estephania Alvarado Work Phone: [facility] Work Phone: 01-08-2022 10:08-0400 Body mass index (BMI) [Ratio] 19.6 kg/m2 Dr. Estephania Alvarado Work Phone: [facility] Work Phone: 01-08-2022 10:08-0400 Body temperature 98.1 [degF] Dr. Estephania Alvarado Work Phone: [facility] Work Phone: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 MANAGER - STRUCTURAL METAL FABRICATOR APPRENTICE Work Phone: [facility] Cardi[facility] Thoracic [facility] Comment on above: CAD in nisqually artery (Primary Dx); Preoperative clearance Start: 01-26-2024 End: 01-26-2024 Preoperative state Mariely Vasquez JOB ANALYSIS MANAGER [employer] Work Phone: [facility] Work Phone: Start: 01-26-2024 End: 01-26-2024 Subsequent hospital visit by physician Manjeet Xr Exam Room 1 [facility] X-Ray Comment on above: Arrived Start: 01-26-2024 End: 01-26-2024 ambulatory Mariely Vasquez JOB ANALYSIS MANAGER - STRUCTURAL METAL FABRICATOR APPRENTICE Work Phone: [facility] Thoracic [facility] Start: 01-22-2024 End: 01-22-2024 Preprocedural examination done Amado Vargas MD Work Phone: [facility] Work Phone: Start: 01-22-2024 End: 01-22-2024 Encounter for other preprocedural examination [email or web address] Start: 01-22-2024 End: 01-22-2024 Subsequent hospital visit by physician Amado Vargas MD Work Phone: [facility] Non-Invasive Cardiology Comment on above: CAD (coronary artery disease) CAD (coronary artery disease); Bruit Other disorders of a rteries, arterioles and capillaries in diseases classified elsewhere (HCC) Preop examination; Other disorders of arteries, arterioles and capillaries in diseases classified elsewhere (HCC); Aneurysm of other specified arteries (HCC) Start: 01-22-2024 End: 01-22-2024 ambulatory AMADO VARGAS [facility] Start: 01-19-2024 End: 01-19-2024 Office consultation new/estab patient 80 min Amado Vargas MD Work Phone: [facility] Cardi[facility] Thoracic [facility] Comment on above: Coronary artery dise ase involving nisqually coronary artery of nisqually heart with unstable angina pectoris (HCC) (Primary Dx) Start: 01-19-2024 End: 01-19-2024 ambulatory ESTEPHANIA ALVARADO [facility] Start: 12-15-2023 End: 12-16-2023 Emergency department patient visit Dylon Mccain MD Work Phone: [facility] Emergency Department Start: 10-26-2023 End: 10-26-2023 Emergency department patient visit Dylon Mccain MD Work Phone: [facility] Emergency Department Start: 10-26-2023 End: 10-26-2023 Patient encounter procedure Gianna Strickland PA-C Work Phone: [facility] Comment on above: SOB (shortness of br eat) (Primary Dx); Herpes zoster with complication Start: 10-20-2023 End: 10-20-[address] Estephania Alvarado Work Phone: [facility] Work Phone: Start: 10-20-2023 End: 10-20-[address] Estephania Alvarado Work Phone: [facility]-Cardiovascular Services Work Phone: Start: 10-08-2023 End: 10-08-2023 Patient encounter procedure Gianna Strickland PA-C Work Phone: [facility] Comment on above: Acute cough (Primary Dx) Start: 10-01-2023 End: 10-01-[address] Estephania Alvarado Work Phone: [facility] Work Phone: Start: 09-10-2023 End: 09-10-[address] Estephania Alvarado Work Phone: [facility] Work Phone: Start: 09-08-2023 End: 09-08-[address] Estephania Alvarado Work Phone: [facility] Work Phone: Start: 08-05-2023 End: 08-05-2023 Emergency department patient visit [facility]ado [facility] Start: 07-29-2023 End: 07-29-[address] Estephania Alvarado Work Phone: [facility] Work Phone: Start: 07-22-2023 End: 07-22-[address] Estephania Alvarado Work Phone: [facility]-Laboratory Work Phone: Start: 07-10-2023 End: 07-10-2023 Emergency department patient visit Jeannine Fuentes MD Work Phone: [facility] Emergency Department Start: 06-11-2023 End: 06-11-[address] Estephania Alvarado Work Phone: [facility] Work Phone: Start: 05-11-2023 End: 05-11-[address] Estephania Alvarado Work Phone: [facility]-Pulmonary Medicine [facility] Work Phone: Start: 04-29-2023 End: 04-29-[address] Estephania Alvarado Work Phone: [facility] Work Phone: Start: 04-21-2023 End: 04-21-[address] Estephania Alvarado Work Phone: [facility] Work Phone: Start: 04-16-2023 Non-patient / Non-visit Dr. Tasha Alvarado Work Phone: [facility] Work Phone: Start: 04-15-2023 Non-patient / Non-visit Dr. Tasha Alvarado Work Phone: [facility] Start: 04-15-2023 End: 04-15-[address] Estephania Alvarado Work Phone: [facility] Work Phone: Start: 04-15-2023 End: 04-15-[address] Estephania Alvarado Work Phone: [facility] Work Phone: Start: 04-15-2023 End: 04-15-[address] [facility]ia Alvarado [facility] Start: 04-06-2023 End: 04-06-[address] [facility]varado [facility] Work Phone: Start: 03-27-2023 End: 03-27-[address] Estephania Alvarado Work Phone: [facility] Work Phone: Start: 03-27-2023 End: 03-27-[address] Estephania Alvarado Work Phone: [facility] Work Phone: Start: 01-23-2023 Non-patient / Non-visit Dr. Tasha Alvarado Work Phone: [facility] Start: 01-22-2023 End: 01-22-[address] Estephania Alvarado Work Phone: [facility] Work Phone: Start: 01-22-2023 End: 01-22-[address] Estephania Alvarado Work Phone: [facility]-Pulmonary Services/Neurology Work Phone: Start: 01-16-2023 End: 01-16-[address] Estephania Alvarado Work Phone: [facility] Work Phone: Start: 01-01-2023 End: 01-01-[address] Estephania Alvarado Work Phone: [facility] Work Phone: Start: 01-01-2023 End: 01-01-[address] Estephania Alvarado Work Phone: [facility]-Laboratory, Specimen Start: 12-31-2022 End: 12-31-[address] [facility]ia Alvarado [facility] Start: 12-17-2022 End: 12-17-[address] Estephania Alvarado Work Phone: [facility] Start: 11-28-2022 End: 11-28-2022 Emergency department patient visit Artemio Ivan MD Work Phone: [facility] Emergency Department Start: 10-08-2022 End: 10-08-[address] Estephania Alvarado Work Phone: [facility] Start: 09-30-2022 End: 09-30-2022 Emergency department patient visit Alexandria Sorensen [facility] [place] [id number] Start: 08-23-2022 Non-patient / Non-visit Dr. Tasha Alvarado Work Phone: [facility] Inpatient Physicians Start: 08-22-2022 Non-patient / Non-visit Dr. Tasha Alvarado Work Phone: [facility] Start: 08-22-2022 End: 08-23-2022 Evaluation and management of inpatient Dr. Estephania Alvarado Work Phone: [facility]-Medical Surgical 3 Start: 08-22-2022 End: 08-23-[address] Estephania Alvarado Work Phone: [facility] Work Phone: Start: 07-07-2022 End: 07-07-[address] Estephania Alvarado Work Phone: [facility] Start: 07-04-2022 End: 07-04-[address] Estephania Alvarado Work Phone: [facility] Start: 07-02-2022 End: 07-02-[address] Estephania Alvarado Work Phone: [facility] Start: 05-22-2022 End: 05-22-[address] Estephania Alvarado Work Phone: [facility]-Pulmonary Medicine [facility] Start: 03-19-2022 End: 03-19-[address] Estephania Alvarado Work Phone: [facility] Work Phone: Start: 03-19-2022 End: 03-19-[address] Estephania Alvarado Work Phone: [facility]-Laboratory Start: 03-19-2022 End: 03-19-[address] Estephania Alvarado Work Phone: [facility] [place] [facility] Start: 02-14-2022 End: 02-14-[address] Estephania Alvarado Work Phone: [facility] Start: 01-29-2022 End: 01-29-[address] Estephania Alvarado Work Phone: [facility]-Laboratory Start: 01-28-2022 End: 01-28-[address] Estephania Alvarado Work Phone: [facility] Start: 01-24-2022 Non-patient / Non-visit Dr. Tasha Alvarado Work Phone: [facility] Start: 01-23-2022 End: 01-23-[address] Estephania Alvarado Work Phone: [facility]-Pulmonary Services/Neurology Start: 01-22-2022 End: 01-22-[address] Estephania Alvarado Work Phone: [facility] Internal Medicine Start: 01-18-2022 Non-patient / Non-visit Dr. Tasha Alvarado Work Phone: [facility] Start: 01-17-2022 End: 01-17-[address] [facility]stephania Alvarado [facility] Start: 01-08-2022 End: 01-08-[address] [facility]stephania Alvarado [facility] Start: 12-11-2021 End: 12-11-2021 Subsequent hospital visit by physician Erma Garibay APRN-RENETTA Work Phone: [facility] Start: 12-02-2021 Non-patient / Non-visit Dr. Tasha Alvarado Work Phone: [facility] Start: 12-02-2021 End: 12-02-[address] Estephania Alvarado Work Phone: [facility]-Cardiovascular Services Start: 11-28-2021 End: 11-28-[address] Estephania Alvarado Work Phone: [facility] Start: 11-21-2021 End: 11-21-[address] Estephania Alvarado Work Phone: [facility] Internal Medicine Start: 11-20-2021 End: 11-20-[address] Estephania Alvarado Work Phone: [facility] Start: 03-14-2021 End: 03-14-2021 Office outpatient new 30 minutes Keely Lanier APRN-STRUCTURAL METAL FABRICATOR APPRENTICE Work Phone: [facility] Pulmonary Disease [facility] Comment on above: Obstructive sleep ap maira (Primary Dx); Sleep related hypoxia; Fatigue, unspecified type; Hypersomnia, unspecified; Snoring; Pedal edema Start: 02-25-2021 End: 02-26-2021 Emergency department patient visit Aubrey Zurita MD Work Phone: [facility] Med Surg Comment on above: COPD with acute exac erbation Start: 02-19-2021 End: 02-19-2021 Emergency department patient visit Jimmy Wheeler MD Work Phone: [facility] Emergency Department Start: 02-15-2021 End: 02-15-2021 Emergency department patient visit Aubrey Zurita MD Work Phone: [facility] Emergency Department Start: 02-05-2021 End: 02-05-2021 Office outpatient visit 25 minutes Artemio Ivan MD Work Phone: [facility] Internal Medicine [place] Comment on above: Acute non-recurrent maxillary sinusitis (Primary Dx); Non-seasonal allergic rhinitis, unspecified trigger; Tobacco use disorder Start: 01-18-2021 End: 01-22-2021 Clinical Support Encounter Roberto Carlos Townsend MD Work Phone: [facility] Sleep Lab Comment on above: ROMEO (obstructive sle ep apnea) (Primary Dx) Start: 01-15-2021 End: 01-15-2021 Office outpatient visit 25 minutes Eugene Lee MD Work Phone: [facility] Pulmonary [place] Comment on above: Chronic obstructive pulmonary disease, unspecified COPD type (Primary Dx); Centrilobular emphysema; Chronic respiratory failure with hypoxia, on home oxygen therapy; Cigarette nicotine dependence with nicotine-induced disorder; Pulmonary nodules; Secondary pulmonary arterial hypertension; ROMEO (obstructive sleep apnea) Start: 01-10-2021 End: 01-10-2021 Office outpatient visit 15 minutes Artemio Ivan MD Work Phone: [facility] Internal Medicine [place] Comment on above: Mixed hyperlipidemia (Primary Dx); Tobacco use disorder; Anemia, normocytic normochromic Start: 12-31-2020 End: 12-31-2020 Subsequent hospital visit by physician Eugene Lee MD Work Phone: [facility] Pulmonary Comment on above: Arrived Start: 12-26-2020 End: 12-26-2020 Subsequent hospital visit by physician Erma Garibay JOB ANALYSIS MANAGER-STRUCTURAL METAL FABRICATOR APPRENTICE [facility] Start: 12-04-2020 End: 12-04-2020 Office outpatient visit 25 minutes Eugene Lee MD Work Phone: [facility] Comment on above: Chronic obstructive pulmonary disease, unspecified COPD type (Primary Dx); Pulmonary nodules; Cigarette nicotine dependence with nicotine-induced disorder; Centrilobular emphysema; Chronic respiratory failure with hypoxia, on home oxygen therapy; Secondary pulmonary arterial hypertension; Vitamin D deficiency; Screening for viral disease; Uncomplicated asthma, unspecified asthma severity, unspecified whether persistent; ROMEO (obstructive sleep apnea) Start: 11-19-2020 End: 11-19-2020 Emergency department patient visit Jimmy Wheeler MD Work Phone: [facility] Emergency Department Start: 10-31-2020 End: 10-31-2020 Subsequent hospital visit by physician Erma Garibay [facility] Start: 09-20-2020 End: 09-20-2020 Office outpatient visit 25 minutes Artemio Narcisopiyushhanggorge Work Phone: [facility] Comment on above: Essential hypertensi on (Primary Dx); Mixed hyperlipidemia; Anemia, normocytic normochromic; Tobacco use disorder; Other folate deficiency anemias Start: 09-07-2020 End: 09-07-2020 Subsequent hospital visit by physician Luis Watson Work Phone: [facility] [employer] Comment on above: Arrived Start: 08-29-2020 End: 08-29-2020 Subsequent hospital visit by physician Erma Garibay Work Phone: [facility] Start: 08-08-2020 End: 08-08-2020 Subsequent hospital visit by physician Erma Garibay Work Phone: [facility] Start: 07-09-2020 End: 07-09-2020 Office outpatient visit 25 minutes Roberto Carlos Townsend Work Phone: [facility] [place] Comment on above: Chronic obstructive pulmonary disease, unspecified COPD type (Primary Dx); Chronic respiratory failure with hypoxia; Former cigarette smoker Start: 06-30-2020 End: 06-30-2020 Emergency department patient visit Alcon Mcconnell Work Phone: [facility] Emergency Department Start: 06-25-2020 End: 06-25-2020 Office outpatient new 30 minutes Jovan Irwin Work Phone: [facility] Neurology Comment on above: Vasovagal syncope (P rimary Dx) Start: 06-21-2020 End: 06-21-2020 Office outpatient visit 25 minutes Artemio Moncho Work Phone: [facility] Internal [facility] Comment on above: Essential hypertensi on (Primary Dx); Chronic obstructive pulmonary disease, unspecified COPD type; Mixed hyperlipidemia; Anemia, unspecified type; Restless leg syndrome; Screening for colon cancer Start: 06-20-2020 End: 06-20-2020 Subsequent hospital visit by physician Luis Watson Work Phone: [facility] Echocardiography Comment on above: Arrived Start: 06-19-2020 End: 06-19-2020 Emergency department patient visit Jimmy Summer Work Phone: [facility] Emergency Department Start: 06-06-2020 End: 06-06-2020 Emergency department patient visit Jeannine Fuentes Work Phone: [facility] Emergency Department Start: 06-01-2020 End: 06-01-2020 Subsequent hospital visit by physician Luis Watson Work Phone: [facility] Ultrasound Comment on above: Arrived Start: 05-21-2020 End: 05-21-2020 Office outpatient new 45 minutes Roberto Carlos Townsend Work Phone: [facility] [place] Comment on above: Pulmonary emphysema, unspecified emphysema type (Primary Dx); Shortness of breath; Former cigarette smoker Start: 05-03-2020 End: 05-03-2020 Emergency department patient visit Jeannine Fuentes Work Phone: [facility] Emergency Department Start: 05-01-2020 End: 05-01-2020 Office outpatient visit 25 minutes Artemio Ivan Work Phone: [facility] Comment on above: Chronic obstructive pulmonary disease, unspecified COPD type (Primary Dx); Essential hypertension; Tobacco use disorder Start: 04-25-2020 End: 04-25-2020 Emergency department patient visit Macario Garza Work Phone: [facility] Emergency Department Start: 04-17-2020 End: 04-17-2020 Office outpatient visit 25 minutes Artemio Ivan Work Phone: [facility] Comment on above: Restless leg syndrom e (Primary Dx); Essential hypertension; Mixed hyperlipidemia; Chronic obstructive pulmonary disease, unspecified COPD type; Tobacco use disorder; Screening for malignant neoplasm of prostate Start: 02-18-2020 End: 02-18-2020 Emergency department patient visit Jimmy Wheeler Work Phone: [facility] Emergency Department Start: 09-30-2019 End: 09-30-2019 Subsequent hospital visit by physician Artemio Ivan Work Phone: [facility] CT Scan Comment on above: Arrived Start: 09-22-2019 End: 09-22-2019 Office outpatient visit 25 minutes Artemio Ivan Work Phone: [facility] Comment on above: Nodule of lower lobe of right lung (Primary Dx); Chronic obstructive pulmonary disease, unspecified COPD type; Chronic bronchitis, unspecified chronic bronchitis type; Tobacco use disorder; Essential hypertension Start: 08-19-2019 End: 08-19-2019 Emergency department patient visit Jimmy Gonzaleznakia Work Phone: [facility] Emergency Department Start: 07-11-2019 End: 07-11-2019 Office outpatient new 45 minutes Artemio Ivan Work Phone: [facility] Comment on above: Encounter to [facility] with new doctor (Primary Dx); Essential hypertension; Mixed hyperlipidemia; Tobacco use disorder; Chronic obstructive pulmonary disease, unspecified COPD type Start: 06-01-2019 End: 06-01-2019 Emergency department patient visit [facility] Emergency Department Start: 02-18-2019 End: 02-18-2019 Letter encounter Luis Watson Work Phone: [facility] Start: 01-21-2019 End: 01-21-2019 Refill Erma Garibay [facility] Comment on above: Chest pain, unspecif ied type (Primary Dx) Start: 01-19-2019 End: 01-19-2019 Office outpatient visit 25 minutes Luis Watson Work Phone: [facility] Comment on above: Atherosclerosis of n ative coronary artery of [place] heart, angina presence unspecified (Primary Dx); Old myocardial infarction; Abdominal aortic aneurysm without rupture; History of repair of aneurysm of abdominal aorta using endovascular stent graft; Hypertensive heart disease without congestive heart failure; Mixed hyperlipidemia; Syncope and collapse; Bilateral carotid artery occlusion; H/O noncompliance with medical treatment, presenting hazards to health Start: 01-19-2019 End: 01-19-2019 Refill Luis Watson Work Phone: [facility] Start: 12-20-2018 End: 12-20-2018 Subsequent hospital visit by physician Uzma Gilbert Work Phone: [facility] Comment on above: Arrived Start: 12-20-2018 End: 12-20-2018 Office outpatient new 30 minutes Uzma Gilbert Work Phone: [facility] Comment on above: Cough (Primary Dx); COPD exacerbation Start: 12-17-2018 End: 12-17-2018 Telephone encounter Doreen Narvaez [facility] Comment on above: Results Start: 12-16-2018 End: 12-16-2018 Telephone encounter Celsocachorro Arguelles Taya Work Phone: [facility] Comment on above: No Show Start: 12-15-2018 End: 12-15-2018 Patient encounter procedure Luis Watson Work Phone: [facility] Echocardiography Comment on above: Arrived Start: 11-30-2018 End: 11-30-2018 Patient encounter procedure Luis Watson Work Phone: [facility] Comment on above: Arrived Abdominal aortic ane urysm without rupture; Status post abdominal aortic aneurysm repair; Intermittent claudication Start: 11-30-2018 End: 11-30-2018 Subsequent hospital visit by physician Luis Watson Work Phone: [facility] Comment on above: Arrived Start: 11-08-2018 End: 11-08-2018 Patient encounter procedure Deyanira Greenberg Work Phone: [facility] Comment on above: Symptomatic sinus br adycardia (Primary Dx) Start: 07-19-2018 End: 07-19-2018 Emergency department patient visit Dave Espinal Work Phone: [facility] Emergency Department Start: 10-24-2017 End: 10-24-2017 Emergency department patient visit [employer] Facility:[facility] Procedures Date Procedure Procedure Detail Performing Clinician Start: 10-24-2024 PB ED PLACEHOLDER Artemio Edmondson MD Work Phone: Start: 04-19-2024 Assay of troponin quantitative Dave Espinal MD Work Phone: Start: 04-19-2024 Radiologic exam ches t 2 views Dave Espinal MD Work Phone: Start: 04-19-2024 Complete blood count with white cell differential, automated Dave Espinal MD Work Phone: Start: 04-19-2024 Infectious agent dna /rna influenza 1st 2 types Dave Espinal MD Work Phone: Start: 04-19-2024 Prothrombin time Mando Espinal MD Work Phone: Start: 02-25-2024 Blood count complete automated Mariely Vasquez JOB ANALYSIS MANAGER - STRUCTURAL METAL FABRICATOR APPRENTICE Work Phone: Start: 02-24-2024 Basic metabolic pane l calcium total Aubrey Telles MD Work Phone: Start: 02-23-2024 Blood count complete automated Mariely Vasquez JOB ANALYSIS MANAGER - STRUCTURAL METAL FABRICATOR APPRENTICE Work Phone: Start: 02-22-2024 End: 02-22-2024 Smr prim src gram/giemsa stain bct fungi/cell Aubrey Telles MD Work Phone: Start: 02-22-2024 Basic metabolic pane l calcium total Mariely Vasquez JOB ANALYSIS MANAGER - STRUCTURAL METAL FABRICATOR APPRENTICE Work Phone: Start: 02-21-2024 Radiologic exam ches t single view 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 JOB ANALYSIS MANAGER - STRUCTURAL METAL FABRICATOR APPRENTICE Work Phone: Start: 02-21-2024 Basic metabolic pane l calcium total Mike East MD Work Phone: Start: 02-20-2024 Compatibility each u nit electronic Red Mitchell MD Work Phone: Start: 02-20-2024 End: 02-21-2024 TRANSFUSE RED BLOOD CELLS Red Mitchell MD Work Phone: Start: 02-20-2024 Radiologic exam ches t single view Chad Carlson DO Work Phone: Start: 02-20-2024 Antibody screen AMADO SOLOMON Comment on above: Performed By: #### L [id number] ####Popcorn Vendor: SILVA REED ([id number])[facility] ([facility])[address] [place] [address] Start: 02-20-2024 Basic metabolic pane l calcium total Chad Carlson DO Work Phone: Start: 02-20-2024 Blood typing serologic abo Red Mitchell MD Work Phone: Start: 02-20-2024 Ecg routine ecg w/le ast 12 lds trcg only w/o i&r Mike East MD Work Phone: Start: 02-20-2024 Radiologic exam ches t single view Mely Lisandra Haneymagdaleno JOB ANALYSIS MANAGER - STRUCTURAL METAL FABRICATOR APPRENTICE Work Phone: Start: 02-20-2024 Basic metabolic pane l calcium total Mariely Vasquez JOB ANALYSIS MANAGER - STRUCTURAL METAL FABRICATOR APPRENTICE Work Phone: Start: 02-19-2024 Radiologic exam ches t single view Mely Ortizbatshevamagdaleno JOB ANALYSIS MANAGER - STRUCTURAL METAL FABRICATOR APPRENTICE Work Phone: Start: 02-19-2024 Basic metabolic pane l calcium total Mely Ortizbatshevamagdaleno JOB ANALYSIS MANAGER - STRUCTURAL METAL FABRICATOR APPRENTICE Work Phone: Start: 02-18-2024 Perq drainage pleura insert cath w/imaging 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 JOB ANALYSIS MANAGER - STRUCTURAL METAL FABRICATOR APPRENTICE Work Phone: Start: 02-18-2024 Radiologic exam ches t single view 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 JOB ANALYSIS MANAGER - STRUCTURAL METAL FABRICATOR APPRENTICE Work Phone: Start: 02-18-2024 Basic metabolic pane l calcium total Mely Ortizbatshevamagdaleno JOB ANALYSIS MANAGER - STRUCTURAL METAL FABRICATOR APPRENTICE Work Phone: Start: 02-17-2024 Thoracentesis needle /cath pleura w/imaging 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 JOB ANALYSIS MANAGER - STRUCTURAL METAL FABRICATOR APPRENTICE Work Phone: Start: 02-17-2024 Radiologic exam ches t single view Mely Fry Lyndonmagdaleno JOB ANALYSIS MANAGER - STRUCTURAL METAL FABRICATOR APPRENTICE Work Phone: Start: 02-17-2024 End: 02-17-2024 Assay of osmolality blood Mariely Vasquez JOB ANALYSIS MANAGER - STRUCTURAL METAL FABRICATOR APPRENTICE Work Phone: Start: 02-17-2024 Urnls dip stick/tabl et rgnt auto w/o microscopy Mariely Sheaer JOB ANALYSIS MANAGER - STRUCTURAL METAL FABRICATOR APPRENTICE Work Phone: Start: 02-17-2024 Basic metabolic pane l calcium total 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 JOB ANALYSIS MANAGER - STRUCTURAL METAL FABRICATOR APPRENTICE Work Phone: Start: 02-16-2024 Radiologic exam ches t single view 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 JOB ANALYSIS MANAGER - STRUCTURAL METAL FABRICATOR APPRENTICE Work Phone: Start: 02-16-2024 Comprehensive metabo lic panel 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 JOB ANALYSIS MANAGER - STRUCTURAL METAL FABRICATOR APPRENTICE Work Phone: Start: 02-15-2024 Radiologic exam ches t single view 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 JOB ANALYSIS MANAGER - STRUCTURAL METAL FABRICATOR APPRENTICE Work Phone: Start: 02-15-2024 Ecg routine ecg w/le ast 12 lds trcg only w/o i&r 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 JOB ANALYSIS MANAGER - STRUCTURAL METAL FABRICATOR APPRENTICE Work Phone: Start: 02-09-2024 Assay of osmolality blood Nathaniel López DO Work Phone: Start: 02-09-2024 Radiologic exam ches t single view Wesley Magana JOB ANALYSIS MANAGER - STRUCTURAL METAL FABRICATOR APPRENTICE Work Phone: Start: 02-09-2024 Basic metabolic pane l calcium total Amado Vargas MD Work Phone: Start: 02-09-2024 Blood count complete automated Amado Vargas MD Work Phone: Start: 02-08-2024 Radiologic exam ches t single view Elva Dietz MD Work Phone: Start: 02-08-2024 Radiologic exam ches t single view Wesley Magana JOB ANALYSIS MANAGER - STRUCTURAL METAL FABRICATOR APPRENTICE Work Phone: Start: 02-08-2024 Basic metabolic pane l calcium total Amado Vargas MD Work Phone: Start: 02-07-2024 HOME O2 EVAL (DESATU RATION SCREEN) 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 JOB ANALYSIS MANAGER - STRUCTURAL METAL FABRICATOR APPRENTICE Work Phone: Start: 02-07-2024 Radiologic exam ches t single view Wesley Magana JOB ANALYSIS MANAGER - STRUCTURAL METAL FABRICATOR APPRENTICE Work Phone: Start: 02-07-2024 Basic metabolic pane l calcium total Amado Vargas MD Work Phone: Start: 02-06-2024 Radiologic exam ches t single view Wesley Magana JOB ANALYSIS MANAGER - STRUCTURAL METAL FABRICATOR APPRENTICE Work Phone: Start: 02-06-2024 Compatibility each u nit electronic Amado Vargas MD Work Phone: Start: 02-06-2024 Basic metabolic pane l calcium total Amado Vargas MD Work Phone: Start: 02-05-2024 Glucose quantitative blood xcpt reagent strip Amado Vargas MD Work Phone: Start: 02-05-2024 Blood count complete auto&auto difrntl wbc Mely Lisandra Patricia JOB ANALYSIS MANAGER - STRUCTURAL METAL FABRICATOR APPRENTICE Work Phone: Start: 02-05-2024 Manual Differential panel - Blood Mely Lisandra Patricia JOB ANALYSIS MANAGER - STRUCTURAL METAL FABRICATOR APPRENTICE Work Phone: Start: 02-05-2024 Radiologic exam ches t single view Wesley Magana JOB ANALYSIS MANAGER - STRUCTURAL METAL FABRICATOR APPRENTICE Work Phone: Start: 02-05-2024 Basic metabolic pane l calcium total Amado Vargas MD Work Phone: Start: 02-04-2024 Glucose quantitative blood xcpt reagent strip Amado Vargas MD Work Phone: Start: 02-04-2024 Radiologic exam ches t single view Wesley Magana JOB ANALYSIS MANAGER - STRUCTURAL METAL FABRICATOR APPRENTICE Work Phone: Start: 02-04-2024 Ecg routine ecg w/le ast 12 lds trcg only w/o i&r Wesley Magana JOB ANALYSIS MANAGER - STRUCTURAL METAL FABRICATOR APPRENTICE Work Phone: Start: 02-04-2024 Basic metabolic pane l calcium total Amado Vargas MD Work Phone: Start: 02-03-2024 Glucose quantitative blood xcpt reagent strip Amado Vargas MD Work Phone: Start: 02-03-2024 End: 02-03-2024 Basic metabolic panel calcium total 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 JOB ANALYSIS MANAGER - STRUCTURAL METAL FABRICATOR APPRENTICE Work Phone: Start: 02-03-2024 Glucose quantitative blood xcpt reagent strip Amado Vargas MD Work Phone: Start: 02-03-2024 Glucose quantitative blood xcpt reagent strip Amado Vargas MD Work Phone: Start: 02-03-2024 Glucose quantitative blood xcpt reagent strip Amado Vargas MD Work Phone: Start: 02-03-2024 Radiologic exam ches t single view Wesley Magana JOB ANALYSIS MANAGER [employer] Work Phone: Start: 02-03-2024 Ecg routine ecg w/le ast 12 lds trcg only w/o i&r Wesley Magana JOB ANALYSIS MANAGER - STRUCTURAL METAL FABRICATOR APPRENTICE Work Phone: Start: 02-03-2024 End: 02-03-2024 Basic metabolic panel calcium total Amado Vargas MD Work Phone: Start: 02-03-2024 Blood gases any comb ination ph pco2 po2 co2 hco3 Amado Vargas MD Work Phone: Start: 02-03-2024 End: 02-03-2024 Glucose quantitative blood xcpt reagent strip Amado Vargas MD Work Phone: Start: 02-03-2024 Plasma 1 donor frz w /in 8 hr Amado Vargas MD Work Phone: Start: 02-03-2024 Glucose quantitative blood xcpt reagent strip Amado Vargas MD Work Phone: Start: 02-02-2024 End: 02-03-2024 TRANSFUSE RED BLOOD CELLS Amado Vargas MD Work Phone: Start: 02-02-2024 Fibrinogen activity Melo Vargas MD Work Phone: Start: 02-02-2024 End: 02-02-2024 Glucose quantitative blood xcpt reagent strip Amado Vargas MD Work Phone: Start: 02-02-2024 End: 02-02-2024 TRANSFUSE RED BLOOD CELLS Amado Vargas MD Work Phone: Start: 02-02-2024 End: 02-02-2024 Basic metabolic panel calcium total Amado Vargas MD Work Phone: Start: 02-02-2024 Blood gases any comb ination ph pco2 po2 co2 hco3 Wesley Williamson Izzy JOB ANALYSIS MANAGER - STRUCTURAL METAL FABRICATOR APPRENTICE Work Phone: Start: 02-02-2024 End: 02-02-2024 Glucose quantitative blood xcpt reagent strip Amado Vargas MD Work Phone: Start: 02-02-2024 End: 02-02-2024 Blood count hematocrit Wesley Williamson Izzy JOB ANALYSIS MANAGER - STRUCTURAL METAL FABRICATOR APPRENTICE Work Phone: Start: 02-02-2024 Blood gases any comb ination ph pco2 po2 co2 hco3 Austen Suarez MD Work Phone: Start: 02-02-2024 EXTUBATION Austen Schafer MD Work Phone: Start: 02-02-2024 Blood gases any comb ination ph pco2 po2 co2 hco3 Austen Suarez MD Work Phone: Start: 02-02-2024 End: 02-02-2024 Basic metabolic panel calcium total Wesley Williamson Izzy JOB ANALYSIS MANAGER - STRUCTURAL METAL FABRICATOR APPRENTICE Work Phone: Start: 02-02-2024 End: 02-02-2024 TRANSFUSE RED BLOOD CELLS Austen Foster MD Work Phone: Start: 02-02-2024 End: 02-02-2024 Glucose quantitative blood xcpt reagent strip Amado Vargas MD Work Phone: Start: 02-02-2024 Blood gases any comb ination ph pco2 po2 co2 hco3 Austen Suarez MD Work Phone: Start: 02-02-2024 Radiologic exam abdo men 1 view Austen Suarez MD Work Phone: Start: 02-02-2024 Radiologic exam ches t single view Wesley LulaJoycelyn Magana JOB ANALYSIS MANAGER - STRUCTURAL METAL FABRICATOR APPRENTICE Work Phone: Start: 02-02-2024 Ecg routine ecg w/le ast 12 lds trcg only w/o i&r Wesley Magana JOB ANALYSIS MANAGER - STRUCTURAL METAL FABRICATOR APPRENTICE Work Phone: Start: 02-02-2024 End: 02-02-2024 TRANSFUSE FRESH FROZEN PLASMA Navjot Robison CRNA Work Phone: Start: 02-02-2024 End: 02-02-2024 Basic metabolic panel calcium total Amado Vargas MD Work Phone: Start: 02-02-2024 Blood gases any comb ination ph pco2 po2 co2 hco3 Amado Vargas MD Work Phone: Start: 02-02-2024 Platelets, pheresis Melo Vargas MD Work Phone: Start: 02-02-2024 End: 02-02-2024 TRANSFUSE PLATELETS Navjot Cotton Work Phone: Start: 02-02-2024 Echo transesophag r- t 2d w/prb img acquisj i&r Wesley Magana JOB ANALYSIS MANAGER - STRUCTURAL METAL FABRICATOR APPRENTICE Work Phone: Start: 02-02-2024 End: 02-02-2024 Ablation & rcnstj atria extnsv w/bypass Amado Vargas MD Work Phone: Start: 02-02-2024 End: 02-02-2024 Cabg w/arterial graft three arterial grafts Amado Vargas MD Work Phone: Start: 02-02-2024 End: 02-02-2024 Echo transesophag r-t 2d w/prb img acquisj i&r Amado Vargas MD Work Phone: Start: 01-26-2024 Antibody screen AMADO SOLOMON Comment on above: Performed By: #### L [id number] ####Popcorn Vendor: SILVA REED ([id number])[facility] ([facility])[address] [place] [id number] [facility] Start: 01-22-2024 TTE w or wo fol wcon,Doppler Amado Vargas MD Work Phone: Start: 01-22-2024 Dup-scan xtr veins c omplete bilateral study Amado Vargas MD Work Phone: Start: 01-22-2024 Non-invas physiologi c std extremity art 2 level Amado Vargas MD Work Phone: Start: 01-22-2024 Duplex scan extracra nial art compl bi study Amado Vargas MD Work Phone: Start: 01-19-2024 Follow-up visit AMADO SOLOMON Start: 12-15-2023 Assay of troponin quantitative Dylon Mccain MD Work Phone: Start: 12-15-2023 Radiologic exam ches t 2 views Dylon Mccain MD Work Phone: Start: 12-15-2023 Infectious agent dna /rna influenza 1st 2 types Dylon Mccain MD Work Phone: Start: 12-15-2023 Complete blood count with white cell differential, automated Dylon Mccain MD Work Phone: Start: 12-15-2023 Comprehensive metabo lic panel Dylon Mccain MD Work Phone: Start: 12-15-2023 Ecg routine ecg w/le ast 12 lds w/i&r Dylon Mccain MD Work Phone: Start: 10-26-2023 Assay of troponin quantitative Dylon Mccain MD Work Phone: Start: 10-26-2023 Ecg routine ecg w/le ast 12 lds trcg only w/o i&r Dylon Mccain MD Work Phone: Start: 10-08-2023 POCT BD VERITOR TRIPLEX AG Gianna ADDISONC Work Phone: Start: 08-05-2023 CT angiography of ch est with contrast Dr. Estephania Alvarado Work Phone: Start: 08-05-2023 SARS-CoV-2, Influenz a & RSV (PCR) Dr. Estephania Alvarado Work Phone: Start: 07-22-2023 Plain chest X-ray Dr. Gama Alvarado Work Phone: Start: 07-10-2023 End: 07-10-2023 Ct head/brain w/o contrast material Jeannine Fuentes MD Work Phone: Start: 04-21-2023 CT of chest without contrast Dr. Estephania Alvarado Work Phone: Start: 01-16-[address] Estephania Alvarado Work Phone: Start: 01-01-2023 Investigation of transfusion reaction Dr. Estephania Alvarado Work Phone: Start: 01-01-2023 Respiratory microbia l culture Dr. Estephania Alvarado Work Phone: Start: 11-28-2022 Ct cervical spine w/ o contrast material Eron P Don PAC Work Phone: Start: 11-28-2022 Ct head/brain w/o co ntrast material Eron P Don PAC Work Phone: Start: 08-22-2022 Plain chest X-ray Dr. Gama Alvarado Work Phone: Start: 01-28-2022 CT of head without contrast Dr. Estephania Alvarado Work Phone: Start: 12-02-2021 Cardiovascular stres s test using pharmacologic stress agent Dr. Estephania Alvarado Work Phone: Start: 02-26-2021 Gluc bld gluc mntr d ev cleared fda spec home use Jose Ovalles MD Work Phone: Start: 02-26-2021 Iadna nos amplified probe tq each organism Андрей Terrell MD Work Phone: Start: 02-26-2021 C-reactive protein Denv er Cruz MT-C Work Phone: Start: 02-26-2021 Complete blood count with white cell differential, automated Deyanira K Sgambellone JOB ANALYSIS MANAGER-STRUCTURAL METAL FABRICATOR APPRENTICE Work Phone: Start: 02-26-2021 Renal function panel Li sa K Sgambellone JOB ANALYSIS MANAGER-STRUCTURAL METAL FABRICATOR APPRENTICE Work Phone: Start: 02-25-2021 Culture bacterial quanttative colony count urine Deyanira K Sgambellone JOB ANALYSIS MANAGER-STRUCTURAL METAL FABRICATOR APPRENTICE Work Phone: Start: 02-25-2021 Respiratory microbia l culture Flora Cruz MT-C Work Phone: Start: 02-25-2021 Urinalysis, reagent strip without microscopy Deyanira K Sgambellone JOB ANALYSIS MANAGER-STRUCTURAL METAL FABRICATOR APPRENTICE Work Phone: Start: 02-25-2021 Ct angiography chest [...] Work Phone: Start: 02-19-2021 Assay of lactate Jimmy Wheeler MD Work Phone: Start: 02-19-2021 Ct [...] Phone: Start: 01-18-2021 SLEEP STUDY PSG Histori [facility] Provider Start: 12-31-2020 PFT COMPLETE Eugene Lee MD Work Phone: Start: 12-31-2020 Pulmonary stress testing Eugene Lee MD Work Phone: Start: 12-31-2020 Echo tthrc r-t 2d w/wom-mode compl spec&colr d Eugene Lee MD Work Phone: Start: 12-26-2020 DEVICE EVALUATION Other Other Start: 11-19-2020 Radiologic exam ches t 2 views Dave Espinal MD Work Phone: Start: 11-19-2020 Complete blood count with white cell differential, automated Dave Espinal MD Work Phone: Start: 11-19-2020 Prothrombin time Mando Espinal MD Work Phone: Start: 11-19-2020 Ecg routine ecg w/le ast 12 lds w/i&r Dave Espinal MD Work Phone: Start: 10-31-2020 DEVICE EVALUATION [...] s test using pharmacologic stress agent Luis B Walter Work Phone: Start: 06-19-2020 CT of chest Edis Gorge molina Work Phone: Start: 06-19-2020 Plain chest [...] Teran Work Phone: Start: 06-19-2020 Standard ECG Jimmy Jones podrandi Work Phone: Start: 06-06-2020 Culture bacterial quanttative colony count urine Jeannine Fuentes Work Phone: Start: 06-06-2020 Urinalysis microscopic only Radha Hernandez Work Phone: Start: 06-06-2020 Urinalysis, reagent strip without microscopy Radha Hernandez Work Phone: Start: 06-06-2020 Urine drug screening As yvonne Hernandez Work Phone: Start: 06-06-2020 Standard ECG Radha [...] Start: 06-01-2020 Imaging of carotid arteries Luis Jimy Watson Work Phone: Start: 06-01-2020 6-minute walk test Mesf in [employer] Work Phone: Start: 06-01-2020 Transthoracic echocardiography Luis B Walter Work Phone: Start: 06-01-2020 Iadna nos amplified probe tq each organism Roberto Carlos Seifu Work Phone: Start: 05-09-2020 Lipid 1996 panel - S brady or Plasma Roberto Carlos Seifu Start: 05-03-2020 Diagnostic radiograp hy of chest, combined PA and lateral Jeannine Fuentes Work Phone: Start: 05-03-2020 Assay of troponin quantitative Jeannine Fuentes Work Phone: Start: 05-03-2020 Complete blood count with white cell differential, automated Jeannine Fuentes Work Phone: Start: 05-03-2020 Comprehensive metabo lic panel Jeannine Fuentes Work Phone: Start: 05-03-2020 Natriuretic peptide Ant michelle Fuentes Work Phone: Start: 05-03-2020 Standard ECG Jeannine Fuentes Work Phone: Start: 04-25-2020 Plain chest X-ray Florentino Garza Work Phone: Start: 04-25-2020 End: 04-25-2020 Culture bacterial blood aerobic w/id isolates Macario Garza Work Phone: Start: 04-25-2020 Albumin serum plasma /whole blood Macario Garza Work Phone: Start: 04-25-2020 Assay of lactate Temi Arguelles [employer] Work Phone: Start: 04-25-2020 Assay of troponin quantitative Macario Garza Work Phone: Start: 04-25-2020 C-reactive protein Lawr figueroa Garza Work Phone: Start: 04-25-2020 Complete blood count with white cell differential, automated Macario Garza Work Phone: Start: 04-25-2020 Creatinine blood Temi Garza Work Phone: Start: 04-25-2020 Natriuretic peptide Law eileenregan Tijerinaton Work Phone: Start: 04-25-2020 Prothrombin time Temi Arguelles [employer] Work Phone: Start: 04-25-2020 Sedimentation rate r bc automated Macario Garza Work Phone: Start: 04-25-2020 Standard ECG Macario Garza Work Phone: Start: 02-18-2020 Computed tomography of abdomen and pelvis with contrast Jimmy Wheeler Work Phone: Start: 02-18-2020 Complete blood count with white cell differential, automated Jimmy Wheeler Work Phone: Start: 02-18-2020 Comprehensive metabo lic panel Jimmy Wheeler Work Phone: Start: 09-30-2019 CT of chest Artemio martinez Work Phone: Start: 08-19-2019 Diagnostic radiograp hy of chest, PA Blayne Arroyo Work Phone: Start: 08-19-2019 Assay of lactate Blayne Arroyo Work Phone: Start: 08-19-2019 Assay of troponin quantitative Blayne Arroyo Work Phone: Start: 08-19-2019 Basic metabolic pane l calcium total Blayne Arroyo Work Phone: Start: 08-19-2019 CBC, EDIF, PLATELET Jamel jerson Cruz Work Phone: Start: 08-19-2019 Standard ECG Blayne ferrera Work Phone: Start: 08-19-2019 INFLUENZA A AND B, PCR Blayne Arroyo Work Phone: Start: 07-27-2019 Lipid 1996 panel - S brady or Plasma Jimmy Wheeler Start: 06-01-2019 Diagnostic radiograp hy of chest, combined PA and lateral Pily Cuellar Work Phone: Start: 06-01-2019 Assay of troponin quantitative Pily Cuellar Work Phone: Start: 06-01-2019 CBC, EDIF, PLATELET Marita martin Cuellar Work Phone: Start: 06-01-2019 Creatinine blood Tiesha Cuellar Work Phone: Start: 06-01-2019 Prothrombin time Tiesha Cuellar Work Phone: Start: 01-19-2019 Lipid 1996 panel - S brady or Plasma Erma Garibay Start: 12-20-2018 Diagnostic radiograp hy of chest, combined PA and lateral Uzma Gilbert Work Phone: Start: 12-15-2018 CARDIO-PULMONARY EXE RCISE STUDY (SCANNED) Luissveta Watson Work Phone: Start: 11-30-2018 Imaging of carotid arteries Luissveta Watson Work Phone: Start: 11-30-2018 Doppler ultrasonogra phy of artery of lower limb Luis Watson Work Phone: Start: 07-19-2018 End: 07-19-2018 Diagnostic radiography of chest, combined PA and lateral Dave Espinal Work Phone: History of coronary artery bypass grafting S/P CABG (coronary artery bypass graft) Mike East MD Work Phone: History of coronary artery bypass grafting S/P CABG (coronary artery bypass graft) 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 APRN - STRUCTURAL METAL FABRICATOR APPRENTICE Work Phone: History of coronary artery bypass grafting S/P triple vessel bypass Dr. Estephania Alvarado MD Work Phone: Comment on above: MCDUFFIE mid- LAD; AO OM 1 PDA seq w/rsvg) MAZE procedure with LA appendage exclusion with atriclip at [facility] on 02/02/2024. History of coronary artery bypass grafting S/P triple vessel bypass Artemio Fox MANUFACTURING SHIFT SUPERVISOR-C History of coronary artery bypass grafting S/P triple vessel bypass Dr. Estephania Alvarado MD History of coronary artery bypass grafting S/P triple vessel bypass Dr. Estephania Alvarado MD Investigation of transfusion reaction Dr. Estephania Alvarado Work Phone: Respiratory microbia l culture Dr. Estephania Alvarado Work Phone: SARS-CoV-2 & FLU Ant igen (Rapid) Dr. Estephania Alvarado Work Phone: Urine culture Dr. Estephania Pierre hner Work Phone: Plan of Treatment Date Care Activity Detail Author Start: 10-24-2034 DTaP/Tdap/Td Vaccines (2 - Td or Tdap) DTaP/Tdap/Td Vaccines (2 - Td or Tdap) [facility] Start: 09-21-2025 Fasting lipid profile LIPID SCREENING [facility] [employer] Start: 05-09-2025 Fasting lipid profile LIPID SCREENING [facility] [employer] Start: 05-05-2025 ambulatory Ambulatory Facility:[facility] Start: 03-20-2025 Influenza vaccination Influenza Vaccine (Season Ended) [facility] Start: 07-27-2024 Fasting lipid profile LIPID SCREENING [facility] Start: 03-20-2024 COVID-19 VACCINE ( season) COVID-19 VACCINE ( season) [facility] Start: 03-20-2024 COVID-19 Vaccine ( season) COVID-19 Vaccine ( season) [facility] Start: 03-20-2024 Influenza vaccination [facility] Start: 03-20-2024 [facility] Start: 03-04-2024 End: 03-04-2024 Telemedicine consultation with patient 03/04/2024 10:30 AM EDT Telemedicine [facility] Cardiovascular [facility] Thoracic Surgery [address] [place] [id number] Wesley Magana, JOB ANALYSIS MANAGER - STRUCTURAL METAL FABRICATOR APPRENTICE [address] [place] [address] [facility] Start: 02-16-2024 End: 02-16-2024 ambulatory [facility] Start: 02-16-2024 End: 02-16-2024 Patient encounter procedure 02/16/2024 12:30 PM EDT Office Visit [facility] Cardi[facility] Surgery [address] [place] [address] Jeckel, Mely Lisandra, JOB ANALYSIS MANAGER - STRUCTURAL METAL FABRICATOR APPRENTICE [address] [place] [address] [facility] Start: 02-02-2024 End: 02-02-2024 Ablation & rcnstj atria extnsv w/bypass Operative tissue ablation and reconstruction of atria (Maze procedure) 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) 02/02/2024 7:00 AM EDT [facility] Operating Room Start: 02-02-2024 End: 02-02-2024 Admission to same day surgery center 02/02/2024 7:00 AM EDT - 02/02/2024 12:00 PM EDT Surgery [facility] MAIN OR [address] [place] [id number] Amado Vargas MD [address] [place] [id number] CORONARY ARTERY BYPASS GRAFT, MODIFIED MAZE PROCEDURE FOR ATRIAL ABLATION WITH RADIOFREQUENCY ABLATION BY ATRICURE USING THE [facility] CLAMP AND THE LEFT ATRIAL APPENDAGE EXCLUSION WITH THE ATRICLIP, TRANSESOPHAGEAL ECHOCARDIOGRAM [32940 (CPT )] [facility] MAIN OR Comment on above: CORONARY ARTERY BYPASS GRAFT, MODIFIED M AZE PROCEDURE FOR ATRIAL ABLATION WITH RADIOFREQUENCY ABLATION BY ATRICURE USING THE [employer] CLAMP AND THE LEFT ATRIAL APPENDAGE EXCLUSION WITH THE ATRICLIP, TRANSESOPHAGEAL ECHOCARDIOGRAM [29844 (CPT )] Start: 02-02-2024 End: 02-02-2024 Anesthesia consultation 02/02/2024 7:00 AM EDT Anesthesia Event [facility] MAIN OR [address] [place] [id number] Maddie Vernon, JOB ANALYSIS MANAGER - STRUCTURAL METAL FABRICATOR APPRENTICE [address] [place] [address] [facility] MAIN OR Start: 02-02-2024 End: 02-02-2024 Atria ablate & rcnstj w/other procedure limite OPERATIVE TISSUE ABLATION AND RECONSTRUCTION OF ATRIA LIMITED PERFORMED WITH OTHER PROCEDURES 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) 02/02/2024 7:00 AM EDT [facility] Operating Room Start: 02-02-2024 End: 02-02-2024 Cabg w/arterial graft three arterial grafts CORONARY ARTERY BYPASS GRAFT X3 ARTERIAL GRAFTS 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) 02/02/2024 7:00 AM EDT [facility] Operating Room Start: 02-02-2024 End: 02-02-2024 Echo transesophag r-t 2d w/prb img acquisj i&r Echocardiography transesophageal real-time 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) 02/02/2024 7:00 AM EDT [facility] Operating Room Start: 02-02-2024 Subsequent hospital visit by physician [facility] MAIN OR Start: 01-26-2024 End: 01-26-2024 Admission to establishment 01/26/2024 2:00 PM EDT Pre-Admission Testing [facility] Pre-Admit Testing [address] [place] [address] Amado Vargas MD [address] [place], [place] [id number] [facility] Pre-Admit Testing Start: 01-22-2024 End: 01-22-2024 Patient encounter procedure [facility] Start: 01-20-2024 Fasting lipid profile LIPID SCREENING [facility] Start: 10-01-2023 Patient referral [facility] Work Phone: Start: 08-05-2023 [facility] Start: 07-20-2023 Medicare Advantage Annual Wellness Visit Medicare Advantage Annual Wellness Visit [facility] Start: 07-20-2023 [facility] Start: 03-20-2023 COVID-19 VACCINE ( season) COVID-19 VACCINE ( season) [facility] Start: 03-20-2023 Influenza vaccination INFLUENZA VACCINE (#1) [facility] Start: 03-20-2023 [facility] Start: 12-17-2022 Patient referral [facility] Work Phone: Start: 08-23-2022 Patient discharge [facility] Start: 08-23-2022 Referral to service [facility] Start: 08-23-2022 Oxygen therapy [facility] Start: 08-22-2022 Following clinical pathway protocol [facility] Start: 08-22-2022 Assessment of risk of venous thromboembolism [facility] Start: 08-22-2022 Contact precautions [facility] Start: 08-22-2022 Inhalation therapy procedure [facility] Start: 08-22-2022 Insertion of catheter into peripheral vein [facility] Start: 08-22-2022 Patient referral to dietitian [facility] Start: 08-22-2022 Providing care according to standard [facility] Start: 08-22-2022 Provision of activity privileges [facility] Start: 08-22-2022 Referral to occupational therapist [facility] Start: 08-22-2022 Referral to service [facility] Start: 08-22-2022 [facility] Start: 08-22-2022 Admission procedure [facility] Start: 08-22-2022 [facility] Start: 08-22-2022 End: 08-22-2022 Blood culture [facility] Start: 03-20-2022 Influenza vaccination INFLUENZA VACCINE (Season Ended) [facility] Start: 01-28-2022 CT of head without contrast Brain/Head without Contrast [facility] Work Phone: Start: 01-28-2022 CT Unspecified body region [facility] Work Phone: Start: 07-26-2021 Colonoscopy COLORECTAL CANCER SCREENING DISCUSSION [facility] Start: 07-26-2021 Screening for malignant neoplasm of colon COLORECTAL CANCER SCREENING DISCUSSION [facility] Start: 06-06-2021 End: 06-06-2021 Patient encounter procedure 06/06/2021 Office Visit Pulmonary Disease Keely Lanier, JOB ANALYSIS MANAGER-STRUCTURAL METAL FABRICATOR APPRENTICE [address] [facility] [address] [place] [address] [facility] Pulmonary Disease [facility] Start: 06-05-2021 End: 06-05-[address] [facility] Start: 05-09-2021 Prostate specific antigen measurement PROSTATE CANCER SCREENING DISCUSSION [facility] Start: 04-18-2021 End: 04-18-2021 Patient encounter procedure [facility] Start: 04-11-2021 End: 04-11-2021 Patient encounter procedure [facility] Start: 03-27-2021 End: 03-27-2021 Patient encounter procedure 03/27/2021 Office Visit Pulmonary Disease Eugene Ch MD [address] [place] [address] [facility] Start: 03-20-2021 Influenza vaccination [facility] Start: 03-14-2021 End: 03-14-2021 Patient encounter procedure [facility] Pulmonary Disease [facility] Start: 03-12-2021 End: 03-12-2021 Patient encounter procedure 03/12/2021 Office Visit Pulmonary Disease Eugene Ch MD [address] [place] [address] [facility] Start: 03-06-2021 End: 12-04-[address] CHEST WITHOUT CONTRAST Imaging Routine Pulmonary nodules Centrilobular emphysema Expected: 03/06/2021 (Approximate), Expires: 12/04/2021 [facility] Comment on above: Expected: 03/06/2021 (Approximate), Expi res: 12/04/2021 Start: 02-20-2021 End: 02-20-2021 Patient encounter procedure 02/20/2021 Appointment [facility] Start: 02-13-2021 End: 02-13-2021 Clinical Support Encounter [facility] Start: 01-31-2021 End: 01-31-2021 Office Visit 01/31/2021 Office Visit Cardiovascular Medicine Luis Watson II, MD [address] [place] [address] [phone] [facility] Start: 01-24-2021 End: 01-25-2021 Clinical Support Encounter 01/24/2021 Clinical Support Encounter Sleep Medicine [facility] Start: 01-23-2021 End: 01-23-2021 Patient encounter procedure 01/23/2021 Lab Encounter Clinical Pathology/Laboratory Medicine Eugene Ch MD [address] [place] [address] [phone] [facility] Clinical Lab Start: 01-18-2021 End: 01-18-2021 Clinical Support Encounter 01/18/2021 Clinical Support Encounter Sleep Medicine [facility] Start: 01-15-2021 End: 01-15-2021 Patient encounter procedure 01/15/2021 Office Visit Pulmonary Disease Eugene Ch MD [address] [place] [address] [phone] [facility] Start: 2021 RSV High Risk: (Elderly (60+) or Population) (1 - 1-dose 75+ series) RSV High Risk: (Elderly (60+) or Population) (1 - 1-dose 75+ series) [facility] Start: 01-10-2021 End: 01-10-2022 Complete blood count with white cell differential, automated CBC, EDIF, PLATELET Lab Routine Anemia, normocytic normochromic Expected: 01/10/2021, Expires: 01/10/2022 [facility] Comment on above: Expected: 01/10/2021, Expires: 2 Start: 01-10-2021 End: 01-10-2022 Comprehensive metabolic 2000 panel - Serum or Plasma COMPREHENSIVE METABOLIC PANEL Lab Routine Mixed hyperlipidemia Expected: 01/10/2021, Expires: 01/10/2022 [facility] Comment on above: Expected: 01/10/2021, Expires: 2 Start: 01-10-2021 End: 01-10-2022 LIPID PANEL W CALCULATED LDL LIPID PANEL W CALCULATED LDL Lab Routine Mixed hyperlipidemia Expected: 01/10/2021, Expires: 01/10/2022 [facility] Comment on above: Expected: 01/10/2021, Expires: 2 Start: 01-10-2021 End: 01-10-2021 Office Visit 01/10/2021 Office Visit Internal Medicine Artemio Ivan MD [address] [place] [address] [phone] [facility] Start: 12-31-2020 End: 12-31-2020 Patient encounter procedure [facility] Echocardiography Start: 12-26-2020 End: 12-26-2020 Appointment 12/26/2020 Appointment Cardiovascular Medicine [facility] Start: 12-04-2020 End: 12-04-2021 6-minute walk test EXERCISE-6 MIN. WALK PFT Routine Chronic obstructive pulmonary disease, unspecified COPD type Expected: 12/04/2020, Expires: 12/04/2021 [facility] Comment on above: Expected: 12/04/2020, Expires: Start: 12-04-2020 End: 12-04-2021 ALLERGEN PROFILE, MOLD ALLERGEN PROFILE, MOLD Lab Routine Chronic obstructive pulmonary disease, unspecified COPD type Uncomplicated asthma, unspecified asthma severity, unspecified whether persistent Expected: 12/04/2020, Expires: 12/04/2021 [facility] Comment on above: Expected: 12/04/2020, Expires: 2 Start: 12-04-2020 End: 12-04-2021 ALPHA 1 ANTITRYPSIN ALPHA 1 ANTITRYPSIN Lab Routine Chronic obstructive pulmonary disease, unspecified COPD type Centrilobular emphysema Expected: 12/04/2020, Expires: 12/04/2021 [facility] Comment on above: Expected: 12/04/2020, Expires: 2 Start: 12-04-2020 End: 12-04-2021 IMMUNOGLOBULIN IGE IMMUNOGLOBULIN IGE Lab Routine Chronic obstructive pulmonary disease, unspecified COPD type Expected: 12/04/2020, Expires: 12/04/2021 [facility] Comment on above: Expected: 12/04/2020, Expires: 2 Start: 12-04-2020 End: 12-04-2021 MINI-PANEL ALLERGEN PROFILE MINI-PANEL ALLERGEN PROFILE Lab Routine Chronic obstructive pulmonary disease, unspecified COPD type Uncomplicated asthma, unspecified asthma severity, unspecified whether persistent Expected: 12/04/2020, Expires: 12/04/2021 [facility] Comment on above: Expected: 12/04/2020, Expires: Start: 12-04-2020 End: 12-04-2021 NOVEL CORONAVIRUS- NASOPHARYNGEAL NOVEL CORONAVIRUS- NASOPHARYNGEAL Microbiology STAT Screening for viral disease Expected: 12/04/2020 (Approximate), Expires: 12/04/2021 [facility] Comment on above: Expected: 12/04/2020 (Approximate), Expi res: 12/04/2021 Start: 12-04-2020 End: 12-04-2021 Transthoracic echocardiography ECHOCARDIOGRAM Echocardiography Routine Secondary pulmonary arterial hypertension Expected: 12/04/2020 (Approximate), Expires: 12/04/2021 [facility] Comment on above: Expected: 12/04/2020 (Approximate), Expi res: 12/04/2021 Start: 12-04-2020 End: 12-04-2021 VITAMIN D (25-HYDROXY,TOTAL) VITAMIN D (25-HYDROXY,TOTAL) Lab Routine Vitamin D deficiency Expected: 12/04/2020, Expires: 12/04/2021 [facility] Comment on above: Expected: 12/04/2020, Expires: Start: 11-22-2020 End: 11-22-2020 Office Visit 11/22/2020 Office Visit Cardiovascular Medicine Luis Watson II, MD [address] [place] [address] [phone] [facility] Start: 10-31-2020 End: 10-31-2020 Appointment 10/31/2020 Appointment [facility] Start: 10-03-2020 End: 10-03-2020 Appointment 10/03/2020 Appointment Cardiovascular Medicine [facility] Start: 09-27-2020 End: 09-27-2020 Office Visit 09/27/2020 Office Visit Cardiovascular Medicine Luis Watson II, MD [address] [place] [address] [phone] [facility] Start: 09-20-2020 End: 09-20-2021 Complete blood count with white cell differential, automated CBC, EDIF, PLATELET Lab Routine Anemia, normocytic normochromic Expected: 09/20/2020, Expires: 09/20/2021 [facility] Comment on above: Expected: 09/20/2020, Expires: Start: 09-20-2020 End: 09-20-2021 Comprehensive metabolic 2000 panel COMPREHENSIVE METABOLIC PANEL Lab Routine Essential hypertension Expected: 09/20/2020, Expires: 09/20/2021 [facility] Comment on above: Expected: 09/20/2020, Expires: Start: 09-20-2020 End: 09-20-2021 LIPID PANEL W CALCULATED LDL LIPID PANEL W CALCULATED LDL Lab Routine Mixed hyperlipidemia Expected: 09/20/2020, Expires: 09/20/2021 [facility] Comment on above: Expected: 09/20/2020, Expires: Start: 09-20-2020 End: 09-20-2020 Office Visit 09/20/2020 Office Visit Internal Medicine Artemio Ivan MD [address] [place] [address] [phone] [facility] Start: 08-08-2020 End: 08-08-[address] [facility] Start: 07-09-2020 End: 07-09-2020 Office Visit 07/09/2020 Office Visit Pulmonary Disease Roberto Carlos Townsend MD [address] [facility] [address] [place] [id number] [facility] Start: 06-25-2020 End: 06-25-2020 Office Visit 06/25/2020 Office Visit Neurology Jovan Irwin MD [address] [place] [address] [phone] [facility] Neurology Start: 06-22-2020 End: 06-22-2020 Office Visit 06/22/2020 Office Visit Cardiovascular Medicine Luis Watson II, MD [address] [place] [address] [phone] [facility] Start: 06-21-2020 End: 06-21-2021 Cobalamin (Vitamin B12) [Mass/Vol] VITAMIN B12 Lab Routine Anemia, unspecified type Expected: 06/21/2020, Expires: 06/21/2021 [facility] Comment on above: Expected: 06/21/2020, Expires: Start: 06-21-2020 End: 06-21-2021 Ferritin [Mass/Vol] FERRITIN Lab Routine Anemia, unspecified type Expected: 06/21/2020, Expires: 06/21/2021 [facility] Comment on above: Expected: 06/21/2020, Expires: Start: 06-21-2020 End: 06-21-2021 Folate [Mass/Vol] FOLATE, SERUM Lab Routine Anemia, unspecified type Expected: 06/21/2020, Expires: 06/21/2021 [facility] Comment on above: Expected: 06/21/2020, Expires: Start: 06-21-2020 End: 06-21-2021 IRON/IRON BINDING/TRANSFERRIN IRON/IRON BINDING/TRANSFERRIN Lab Routine Anemia, unspecified type Expected: 06/21/2020, Expires: 06/21/2021 [facility] Comment on above: Expected: 06/21/2020, Expires: Start: 06-21-2020 End: 06-21-2020 Office Visit 06/21/2020 Office Visit Internal Medicine Artemio Ivan MD [address] [place] [address] [phone] [facility] Start: 06-20-2020 End: 06-20-2020 Appointment [facility] Echocardiography Start: 05-24-2020 End: 05-24-2020 Office Visit 05/24/2020 Office Visit Cardiovascular Medicine Luis Watson II, MD [address] [place] [address] [phone] [facility] Start: 05-09-2020 End: 05-09-2020 Office Visit 05/09/2020 Office Visit Cardiovascular Medicine [facility] Start: 04-26-2020 End: 04-26-2020 Office Visit 04/26/2020 Office Visit Cardiovascular Medicine Luis Watson II, MD [address] [place] [address] [phone] [facility] Start: 04-17-2020 End: 04-17-2021 [object Object] PSA, SCREENING Lab Routine Screening for malignant neoplasm of prostate Expected: 04/17/2020, Expires: 04/17/2021 [facility] Comment on above: Expected: 04/17/2020, Expires: 1 Start: 04-17-2020 End: 04-17-2021 Complete blood count with white cell differential, automated CBC, EDIF, PLATELET Lab Routine Essential hypertension Expected: 04/17/2020, Expires: 04/17/2021 [facility] Comment on above: Expected: 04/17/2020, Expires: Start: 04-17-2020 End: 04-17-2021 Comprehensive metabolic 2000 panel COMPREHENSIVE METABOLIC PANEL Lab Routine Essential hypertension Expected: 04/17/2020, Expires: 04/17/2021 [facility] Comment on above: Expected: 04/17/2020, Expires: 1 Start: 04-17-2020 End: 04-17-2021 LIPID PANEL W CALCULATED LDL LIPID PANEL W CALCULATED LDL Lab Routine Mixed hyperlipidemia Expected: 04/17/2020, Expires: 04/17/2021 [facility] Comment on above: Expected: 04/17/2020, Expires: 1 Start: 03-20-2020 Influenza vaccination INFLUENZA VACCINE (#1) [facility] Start: 01-25-2020 End: 01-25-2020 Office Visit 01/25/2020 Office Visit Cardiovascular Medicine [facility] Start: 10-13-2019 End: 10-13-2019 Office Visit 10/13/2019 Office Visit Internal Medicine Artemio Ivan MD [address] [place] [address] [phone] [facility] Start: 09-28-2019 End: 09-27-[address] CHEST WITHOUT CONTRAST Imaging Routine Nodule of lower lobe of right lung Expected: 09/28/2019, Expires: 09/27/2020 [facility] Comment on above: Expected: 09/28/2019, Expires: 1 Start: 09-12-2019 End: 09-12-2019 Office Visit 09/12/2019 Office Visit Internal Medicine Artemio Ivan MD [address] [place] [address] [phone] [facility] Start: 07-27-2019 End: 07-27-2019 Office Visit 07/27/2019 Office Visit Cardiovascular Medicine [facility] Start: 07-11-2019 End: 07-11-2020 CBC, EDIF, PLATELET CBC, EDIF, PLATELET Lab Routine Essential hypertension Expected: 07/11/2019, Expires: 07/11/2020 [facility] Comment on above: Expected: 07/11/2019, Expires: 0 Start: 07-11-2019 End: 07-11-2020 Comprehensive metabolic 2000 panel COMPREHENSIVE METABOLIC PANEL Lab Routine Essential hypertension Expected: 07/11/2019, Expires: 07/11/2020 [facility] Comment on above: Expected: 07/11/2019, Expires: 0 Start: 07-11-2019 End: 07-11-2020 LIPID PANEL W CALCULATED LDL LIPID PANEL W CALCULATED LDL Lab Routine Mixed hyperlipidemia Expected: 07/11/2019, Expires: 07/11/2020 [facility] Comment on above: Expected: 07/11/2019, Expires: 0 Start: 05-02-2019 End: 05-02-[address] [facility] Start: 03-20-2019 Influenza vaccination [facility] Start: 02-18-2019 End: 02-18-2019 Office Visit 02/18/2019 Office Visit Cardiovascular Medicine Luis Watson II, MD [address] [place] [address] [facility] Start: 12-15-2018 End: 12-15-2018 Appointment 12/15/2018 Appointment Cardiovascular Medicine Luis Watson II, MD [address] [place] [address] [phone] [facility] Echocardiography Start: 12-10-2018 End: 12-10-2018 Office Visit 12/10/2018 Office Visit Cardiovascular Medicine Luis Watson II, MD [address] [place] [address] [phone] [facility] Start: 12-09-2018 End: 12-09-2018 Office Visit 12/09/2018 Office Visit Family Medicine Dom Bain MD [address] [place] [address] [phone] [facility] Family Medicine Start: 12-03-2018 End: 12-03-2018 Office Visit 12/03/2018 Office Visit Cardiovascular Medicine Luis Watson II, MD [address] [place] [address] [phone] [facility] Start: 12-02-2018 End: 12-02-2018 Appointment 12/02/2018 Appointment Cardiovascular Medicine Luis Watson II, MD [address] [place] [address] [phone] [facility] Echocardiography Start: 11-30-2018 End: 11-30-2018 Appointment [facility] ECHOC[facility] Start: 03-20-2018 Influenza vaccination INFLUENZA VACCINE (#1) [facility] Work Phone: Start: 2011 Abdominal aortic aneurysm screening ABDOMINAL AORTIC ANEURYSM HIGH RISK SCREEN [facility] Start: 2011 Pneumococcal vaccination [facility] Start: 2006 RSV Immunization aged 60 or older (1 - 1-dose 60+ series) RSV Immunization aged 60 or older (1 - 1-dose 60+ series) [facility] Start: 2006 RSV VACCINE (1 - 1-dose 60+ series) RSV VACCINE (1 - 1-dose 60+ series) [facility] Start: 2006 [facility] Start: 01-15-1996 Colonoscopy [facility] Start: 01-15-1996 Prostate specific antigen measurement PROSTATE CANCER SCREENING DISCUSSION [facility] [place] [facility] Work Phone: Start: 01-15-1996 Protein mass conc COLON CANCER SCREENING DISCUSSION [facility] Work Phone: Start: 01-15-1996 Screening for malignant neoplasm of lung [facility] Start: 01-15-1996 Zoster vaccine hzv live for subcutaneous use ZOSTER (SHINGLES) VACCINE (1 of 2) [facility] Start: 01-15-1996 Zoster Vaccines (1 of 2) Zoster Vaccines (1 of 2) [facility] Start: 01-15-1996 [facility] Start: 1986 Fasting lipid profile LIPID SCREENING [facility] Work Phone: Start: 01-15-1968 DTaP/Tdap/Td Vaccines (1 - Tdap) DTaP/Tdap/Td Vaccines (1 - Tdap) [facility] Start: 1965 DTaP/Tdap/Td Vaccines (1 - Tdap) DTaP/Tdap/Td Vaccines (1 - Tdap) [facility] Start: 1965 Third diphtheria, tetanus and acellular pertussis (DTaP) vaccination TDAP (ADULT) [facility] Start: 1965 [facility] Start: 01-15-1964 Hepatitis C screening [facility] Start: 01-15-1964 End: 01-15-1964 Tetanus vaccination TETANUS [facility] Start: 1962 COVID-19 VACCINE (1 of 2) COVID-19 VACCINE (1 of 2) [facility] Start: 1962 COVID-19 VACCINE (1) COVID-19 VACCINE (1) [facility] Start: 1958 COVID-19 VACCINE (1) COVID-19 VACCINE (1) [facility] Start: 1958 Depression Screening Depression Screening [facility] Start: 1958 [facility] Start: 1951 COVID-19 VACCINE (#1) COVID-19 VACCINE (#1) [facility] Start: 1946 COVID-19 VACCINE (#1) COVID-19 VACCINE (#1) [facility] Start: 1946 Hepatitis C screening HEPATITIS C VIRUS SCREENING [facility] Start: 1946 Lipid panel [facility] Start: 1946 Medicare Annual Wellness Visit Medicare Annual Wellness Visit (AWV) [facility] Start: 1946 Tetanus vaccination TETANUS [facility] Start: 1946 End: 1946 Hepatitis C antibody, confirmatory test HEPATITIS C VIRUS SCREENING [facility] 6-minute walk test EXERCISE-6 SD N. 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) [facility] Operating Room Bacteria identified Cx Nom (Bld) [facility] Bacteria identified Cx Nom (U) [facility] Bacteria identified in Urine by Culture URINE CULTURE Microbiology Today 02/25/2021 11:15 PM EDT [facility] Work Phone: BLOOD GAS VENOUS BLOOD GAS VENOU S Lab STAT [facility] three arterial grafts CORONARY ARTERY BYPASS GRAFT X3 ARTERIAL GRAFTS 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) [facility] Operating Room CBC W Auto Different ial panel - Blood [facility] COLOGUARD COLOGUARD Outsid e Labs Routine Screening for colon cancer Ordered: 06/21/2020 [facility] Comment on above: Ordered: 06/21/2020 Comprehensive metabo lic 2000 panel - Serum or Plasma [facility] CT Chest [facility] CT Chest [facility] CT Chest [facility] CT Chest WO contrast [facility] CT Unspecified body region WO contrast [facility] Work Phone: End: 02-08-2024 ECG 12 lead [facility] Work Phone: End: 02-16-2024 ECG 12 lead in a.m. ECG 12 lead in a.m. CV ECG Routine Once for 1 Occurrences starting 02/16/2024 until 02/16/2024 [employer] 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) [facility] Operating Room Exercise tolerance test [facility] End: 09-07-2020 HOLTER MONITOR - NURSING HOME HOLTER MONITOR - PLASTERER JOURNEYMAN ECG Routine Palpitations Tachycardia, unspecified Cardiac pacemaker in situ 1 Occurrences starting 09/07/2020 until 09/07/2020 [employer] Comment on above: 1 Occurrences starting 09/07/2020 until 09/07/2020 Lipid 1996 panel - S brady or Plasma [facility] Work Phone: Lipid [facility] panel - S brady or Plasma [facility] Measurement of respiratory function [facility] Work Phone: NM Heart Views W str ess and W radionuclide IV [facility] Patient Education ED Hemoptysis ED Pneumonia (Adult) [facility] Work Phone: Patient referral [facility] Work Phone: PFT COMPLETE [employer] Comment on above: Ordered: 05/21/2020 Ordered: 12/04/2020 Polysomnography SLEEP STUDY - DIAGNOSTIC PFT Routine ROMEO (obstructive sleep apnea) Ordered: 12/04/2020 [facility] Comment on above: Ordered: 12/04/2020 End: 02-02-2024 Prothrombin time (PT) in Blood by Coagulation assay [employer] Work Phone: Respiratory microbia l culture RESPIRATORY CULTURE Microbiology Today 02/25/2021 11:15 PM EDT [facility] Work Phone: SLEEP STUDY - TITRATION SLEEP ST UDY - TITRATION PFT Routine ROMEO (obstructive sleep apnea) Ordered: 12/04/2020 [facility] Comment on above: Ordered: 12/04/2020 End: 07-19-2018 Standard ECG [facility] Work Phone: Comment on above: One Time for 1 Occurrences starting 06/21 until 07/19/2018 Standard ECG [employer] End: 06-30-2020 Standard ECG ECG ECG STAT One Time for 1 Occurrences starting 06/30/2020 until 06/30/2020 [facility] Comment on above: One Time for 1 Occurrences starting 06/19 until 06/30/2020 End: 06-01-2019 Standard ECG ECG ECG STAT One Time for 1 Occurrences starting 06/01/2019 until 06/01/2019 [employer] Comment on above: One Time for 1 Occurrences starting 05/20 until 06/01/2019 End: 02-15-2021 Standard ECG ECG ECG STAT One Time for 1 Occurrences starting 02/15/2021 until 02/15/2021 [employer] Work Phone: Comment on above: One Time for 1 Occurrences starting 01/19 until 02/15/2021 Standard ECG ECG ECG STAT 09/2020 6:48 AM [facility] Work Phone: Standard ECG ECG ECG STAT 03/2021 8:46 AM [facility] Work Phone: Standard ECG ECG ECG STAT 02/2024 11:16 AM [facility] Standard ECG ECG ECG STAT 8:53 PM [facility] [employer] [facility] End: 04-19-2024 Standard ECG ECG ECG STAT One Time for 1 Occurrences starting 04/19/2024 until 04/19/2024 [employer] Comment on above: One Time for 1 Occurrences starting 07/2023 until 04/19/2024 T4 free measurement [facility] Thyroid stimulating hormone measurement [facility] Tobacco use cessatio n intermediate 3-10 minutes [employer] [facility] Comment on above: Ordered: 12/04/2020 Ordered: 01/15/2021 Transthoracic echocardiography ECHOCARDIOGRAM Echocardiography Routine Atherosclerosis of [place] coronary artery of [place] heart, angina presence unspecified Old myocardial infarction Shortness of breath Syncope and collapse 11/30/2018 2:18 PM EDT [facility] Triiodothyronine, fr ee measurement [facility] Vitamin B12 measurement [facility] Vitamin D, 25-hydrox y measurement [facility] XR Chest 2 Views XR chest 2 view s Imaging Routine Preop testing 01/26/2024 3:15 PM EDT [facility] Work Phone: Immunizations Immunization Date Immunization Notes Care Provider Fa cilisharron 10-24-2024 tetanus toxoid, redu kevan diphtheria toxoid, and acellular pertussis vaccine, adsorbed Artemio Edmondson MD Work Phone: [facility] 05-22-2022 influenza, injectabl e, quadrivalent, preservative free Dr. Estephania Alvarado Work Phone: [facility] 05-22-2022 influenza, seasonal, injectable Dr. Estephania Alvarado Work Phone: [facility] 05-22-2022 influenza virus vaccine, unspecified formulation Jeannine Fuentes MD Work Phone: [facility] 12-20-2018 pneumococcal conjuga te vaccine, [address] Esetphania Alvarado MD Work Phone: [facility] 06-19-2016 pneumococcal polysaccharide vaccine, [address] Estephania Alvarado MD Work Phone: [facility] 06-19-2016 influenza virus vaccine, unspecified formulation Artemio Ivan [facility] Payers Date Payer Category Payer Legal Liability / Liability Insurance ACCIDENT RELATED NON-MEDICARE [id number] 2024 Medicare [id number] 2024 Self-pay [id number] 2021 Medicare [id number] 2021 Unknown [id number] 2020 Medicare [id number] 1979 Medicare [id number] 1975 Medicare MEDICARE MEDICAR E A AND B xxxxxxxxxxx 1975-Present [place], [place] xxxxxxxxxxx [id number] 1975 Medicare MEDICARE MEDICAR E A AND B [id number] 1975-Present [place] [id number] 1975 Medicare [id number] 1946 Unknown [id number] 2.840.1.150871.3.579.2 .1069 1946 Unknown [id number] .840.1.033848.3.579.2 .983 1946 Unknown [id number] 2.16840.1.065037.3.579.2 .983 1946 Unknown [id number] 2.16840.1.275705.3.579.2 .983 1946 Unknown [id number] 2.16840.1.211741.3.579.2 .983 1946 Unknown [id number] 2.16840.1.691049.3.579.2 .983 1946 Unknown [id number] 2.16.840.1.725255.3.579.2 .1243 1946 Unknown [id number] 2.16840.1.599519.3.579.2 .902 Medicare [id number] Medicare [employer] MEDICARE HMO [id number] Unknown [facility] [id number] Unknown [facility] Unknown [id number] Unknown [id number] 2.16.840.1.530024.3.579.2 .462 Unknown [id number] 2.16840.1.670722.3.579.2 .462 Unknown [id number] 2.16840.1.593404.3.579.2 .462 Unknown [id number] 2.16840.1.541651.3.579.2 .462 Unknown [id number] 2.16.840.1.126722.3.579.2 .462 Unknown [id number] 2.16.840.1.178248.3.579.2 .462 Unknown [id number] 2.16.840.1.482716.3.579.2 .462 Unknown [id number] 2.16.840.1.402831.3.579.2 .462 Unknown [id number] 2.16.840.1.199977.3.579.2 .462 Unknown [id number] 2.16.840.1.091941.3.579.2 .462 Unknown [id number] 2.16.840.1.260240.3.579.2 .462 Unknown [id number] 2.16.840.1.214499.3.579.2 .462 Unknown [id number] 2.16.840.1.229903.3.579.2 .462 Unknown [id number] 2.16.840.1.308203.3.579.2 .462 Unknown [id number] 2.16.840.1.305211.3.579.2 .462 Unknown [id number] 2.16.840.1.728999.3.579.2 .462 Unknown [id number] 2.16.840.1.085450.3.579.2 .462 Unknown [id number] 2.16.840.1.951518.3.579.2 .462 Unknown [id number] 2.16.840.1.354634.3.579.2 .462 Unknown [id number] 2.16.840.1.720847.3.579.2 .462 Unknown [id number] 2.16.840.1.322191.3.579.2 .462 Social History Date Type Detail Facility Start: 07-19-2018 End: 10-08-2023 Tobacco smoking status NHIS Current every day smoker [facility] Work Phone: Start: 1945 Sex Assigned At Not on file O [facility] Work Phone: Start: 10-21-2018 End: 10-26-2023 Cigarettes smoked current (pack per day) - Reported [employer] Start: 07-11-2019 End: 04-19-2024 Alcohol intake Current non-drinker of alcohol (finding) [employer] Start: 02-18-2020 End: 10-08-2023 Tobacco use and exposure Never used [employer] Start: 09-28-2023 End: 10-24-2024 Exposure to SARS-CoV-2 (event) Not sure [facility] Exposure to SARS-CoV -2 (event) Unable to assess [employer] Start: 03-14-2021 End: 04-26-2024 Tobacco smoking status NHIS Former smoker [facility] Start: 03-14-2021 End: 03-20-2024 Tobacco use and exposure Former user [facility] End: 02-25-2021 History of tobacco use User of smokeless tobacco [facility] End: 02-25-2021 History of tobacco use Current smoker [facility] Start: 01-22-2022 End: 10-01-2023 Tobacco smoking status ARIS Unknown if ever smoked [facility] Start: 1945 Sex Assigned At Male W [facility] Start: 07-20-1955 End: 02-25-2021 History of tobacco use Cigarette Smoker [facility] Start: 07-10-2023 End: 10-26-2023 Tobacco use panel [facility] Start: 07-19-2018 Gender identity Identifies as male gender (finding) [facility] Start: 01-19-2024 End: 02-23-2024 Alcoholic beverage intake Ex-drinker (finding) [facility] Start: 01-26-2024 Alcohol Comment sober since 2006 [facility] Within the last year , have you been afraid of your partner or ex-partner? No [facility] How often do you nee d to have someone help you when you read instructions, pamphlets, or other written material from your doctor or pharmacy [SILS] Never [facility] Are you now , , , , never or living with a partner? [facility] How often to you hav e a drink containing alcohol? Never [facility] How hard is it for y ou to pay for the very basics like food, housing, medical care, and heating Not very hard [facility] Do you feel stress - tense, restless, nervous, or anxious, or unable to sleep at night because your mind is troubled all the time - these days [OSQ] Only a little [facility] (I/We) worried wheth er (my/our) food would run out before (I/we) got money to buy more. Never true [facility] Start: 10-18-2024 Sex Male (finding) [facility] Medical Equipment Procedure Code Equipment Code Equipment Origin al Text Equipment Identifier Dates Cardiac pacemaker, device (physical object) ([id number]) [employer] [id number], [id number] FDA Start: 04-10-2021 [id number] Start: 02-02-2024 Goals Date Patient Goal Desired Activity /State Functional Status Date Assessment Result Facility 08-23-2022 Functional status Bedrest [facility] Work Phone: Mental Status Date Assessment Result Facility 08-23-2022 Cognitive function Appropriate;[facility] Work Phone: Clinical Notes 11-19-2020 to 11-14-2024 Note Date & Type Note Facility 11-14-2024 Evaluation note Diagnosis Onset Date Resolution Chronic respiratory failure with hypoxia, on home O2 therapy chronic November 14, 2024 10:11am Smoking greater than 40 pack years chronic November 14, 2024 10:11am Stage 4 very severe COPD by GOLD classification october 10:11am Chronic respiratory failure with hypoxia, on home O2 therapy chronic February 13, 2025 10:41am Smoking greater than 40 pack years chronic February 13, 2025 10:41am 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 January 10:41am [facility] Work Phone: 1(719) 866-897904-28-2025 Evaluation note* Diagnosis Onset Date Resolution Status Admit Date Chronic respiratory failure with hypoxia, on home O2 therapy chronic November 14, 2024 10:11am Smoking greater than 40 pack years chronic November 14, 2024 10:11am 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 November 14, 2024 10:11am Chronic respiratory failure with hypoxia, on home O2 therapy chronic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 Ipratropium-albuterol (DUONEB) 0.5-2.5 (3) MG/3ML nebulizer solution 3 mL 3 mL Nebulization Once Dave Espinal MD Ipratropium-albuterol (DUONEB) 0.5-2.5 (3) MG/3ML nebulizer solution 3 mL 3 mL Nebulization Once Dave Espinal MD metoprolol (LOPRESSOR) injection 5 mg 5 mg Intravenous Once Dave Espinal MD Current Outpatient Medications Medication Sig Dispense Refill albuterol (2.5 MG/3ML) 0.083% inhalation solution inhale contents of 1 vial ( 3 milliliters ) in nebulizer by mouth and INTO THE LUNGS every 6 hours if needed 300 mL 3 albuterol 108 (90 Base) MCG/ACT [...] nebulization 4 times daily. 30 Each 0 lidocaine 5 % Patch patch Place 1 patch on skin every 24 hours. Max of 12 hours of application thenremove. 12 patch 0 Lisinopril 10 MG tablet Take 1 tablet by mouth daily. metoprolol 25 MG tab regular release Take 1 tablet by mouth 2 times daily. 180 tablet 3 midodrine 5 MG tablet Take 1 tablet by mouth 3 times daily (space doses 6 hours apart). 90 tablet 3 Misc. Devices Misc by Unknown route. APAP 5-20 cm H2O set up 04/19/21 [facility] nitroGLYCERIN 0.[address] 1 tablet under tongue every 5 minutes as needed for Chest pain. max = 3 doses. If CP persists after 3rd dose, call 911 25 tablet 0 oxygen gas Patient discharged from [facility] on 4 Liters of Oxygen via nc due to desaturation.Please provide oxygen for patient due to [facility] ED discharge instructions. This order certifies that this patient is under my care and that I, or a Nurse Practitioner or Physician's Food Service Supervisor had a [id number] Encounter with them. Based upon those findings, the equipment/supplies listed above are medically necessary. (Patient taking differently: 1.5 L. [facility] on 4 Liters of Oxygen via nc due to desaturation. Please provide oxygen for patient due to [facility] ED discharge instructions. This order certifies that this patient is under my care and that I, or a Nurse Practitioner or Physician's Food Service Supervisor had a [id number] Encounter with them. Based upon those findings, the equipment/supplies listed above are medically necessary. PRN) 1 Device 0 pantoprazole [address] tablet DR Take 1 tablet by mouth. roflumilast (Daliresp) 500 MCG tablet Take 1 tablet by mouth daily. 30 tablet 5 tiotropium (Spiriva Respimat) 2.5 MCG/ACT Aero Soln inhaler Inhale 2 puffs daily. 4 g 5 ALLERGIES Allergies Allergen Reactions Penicillins Hives and Swelling Tamsulosin Other reaction(s): Other (See Comments) Makes him "blackout" Clopidogrel Itching FAMILY HISTORY Family History Problem Relation Age of Onset Dysrhythmia Mother Dysrhythmia Brother Myocardial Infarction Brother SOCIAL HISTORY Social History Socioeconomic History Marital status: Single Spouse name: Not on file Number of children: Not on file Years of education: Not on file Highest education level: Not on file Occupational History Not on file Tobacco Use Smoking status: Former Current packs/day: 0.00 Types: Cigarettes Quit date: 02/25/2021 Years since quittin.1 Smokeless tobacco: Former Quit date: 02/25/2021 Vaping Use Vaping status: Never Used Substance and Sexual Activity Alcohol [...] Social Determinants of Health Financial Resource Strain: Low Risk (02/23/2024) Received from [facility] Overall Financial Resource Strain (CARDIA) Difficulty of Paying Living Expenses: Not very hard Food Insecurity: No Food Insecurity (02/23/2024) Received from [facility] Hunger Vital Sign Worried About Running Out of Food in the Last Year: Never true Ran Out of Food in the Last Year: Never true Transportation Needs: No Transportation Needs (02/23/2024) Received from [facility] PRAPARE - Transportation Lack of Transportation (Medical): No Lack of Transportation (Non-Medical): No Physical Activity: Insufficiently Active (02/23/2024) Received from [facility] Exercise Vital Sign Days of Exercise per Week: 2 days Minutes of Exercise per Session: 10 min Stress: No Stress Concern Present (02/23/2024) Received from [facility] [employer] - Occupational Stress Questionnaire Feeling of Stress : Only a little Social Connections: Moderately Isolated (02/23/2024) Received from [facility] Social Connection and Isolation Panel [NHANES] Frequency of Communication with Friends and Family: More than three times a week Frequency of Social Gatherings with Friends and Family: Three times a week Attends Synagogue Services: 1 to 4 times per year Active Member of Clubs or Organizations: No Attends Club or Organization Meetings: Patient declined Marital Status: Intimate Partner Violence: Not At Risk (02/15/2024) Received from [facility] Humiliation, Afraid, Rape, and Kick questionnaire Fear of Current or Ex-Partner: No Emotionally Abused: No Physically Abused: No Sexually Abused: No Housing Stability: Low Risk (02/23/2024) Received from [facility] Housing Stability Vital Sign Unable to Pay for Housing in the Last Year: No Number of Times Moved in the Last Year: 0 Homeless in the Last Year: No PHYSICAL EXAM BP 128/70 Pulse 122 Temp 98.5 F (36.9 C) (Oral) Resp 24 Ht 1.88 m (6' 2") Wt 70.3 kg (155lb) SpO2 100% BMI 19.90 kg/m Smoking Status Former Physical Exam The patient is well-developed, well-nourished, and in no acute distress. Head is atraumatic and normocephalic. Pupils are equal and reactive. Face is symmetric. Mucous membranes are moist. Neck is supple. Heart is irregularly irregular. Lungs have wheezing in all dietz. Abdomen is soft, nontender, nondistended. Skin is warm and dry. Extremities are warm and well perfused and without acute deformity. No leg swelling or calf tenderness. Neurologically, the patient is awake, alert, and without acute deficit. Psychiatrically, the patient is calm and cooperative. ED COURSE & MEDICAL DECISION MAKING EKG interpretation: Atrial flutter with a ventricular rate of 125 beats per minute. Normal QRS duration. Rightward axis. No acute ST elevations. No left bundle-branch block. Patient feels improved after breathing treatments. He will be given some IV Solu-Medrol. Chest x-ray shows what appears to be chronic changes since his open heart surgery. Heart rate has improved. Patient does have a mild elevation of troponin. Patient will be kept for a repeat troponin. If he is not showing any significant change in troponin level, then he can be discharged home on prednisone and Zithromax. The patient is in agreement with that plan of care. Dave Espinal MD 04/19/24 [id number] [employer] Work Phone: 1(992) 622-473209-01-2024 History of Present illness Narrative* Aruna Prescott RAJI - 03/20/2024 4:10 PM EDT HPI Darin Breaux presents to the [facility] with Chief Complaint Patient presents with Ear Fullness Pt thinks that he has something stuck in his ear Patient presents today with left ear fullness, and a decrease in hearing. Patient states on Thursday he was using a Qtip to clean his left ear when he noticed blood coming from left ear. Patient reports continuous bleeding from left ear which subsided last night. Patient is now experiencing left ear f ullness, and feels something is stuck in left ear. Patient currently taking Eliquis and aspirin. Patient denies ear pain or pruritus. Patient denies fevers, chills, body aches, nausea, vomiting, diarrhea, chest pain, SOB, lightheadedness, dizziness, or JEFF. The following sections were personally reviewed by me: Allergies Meds Problems Med Hx Surg Hx Fam Hx ROS Review of Systems 8 systems reviewed with patient, negative unless specifically mentioned in history of present illness PHYSICAL EXAM Visit Vitals BP 144/85 (BP Location: Right arm, BP Position: Sitting) Pulse 99 Temp 97.8 F (36.6 C) (Temporal) Resp 22 Ht 1.88 m (6' 2") Wt 69.9 kg (154 lb) SpO2 100% BMI 19.77 kg/m Physical Exam Vitals and nursing note reviewed. Constitutional: Appearance: Normal appearance. HENT: Head: Normocephalic. Right Ear: Tympanic membrane, ear canal and external ear normal. Left Ear: Decreased hearing noted. Ears: Comments: Blood clot obstructing left ear canal noted on exam Nose: Nose normal. Mouth/Throat: Mouth: Mucous membranes are moist. Eyes: Pupils: Pupils are equal, round, and reactive to light. Cardiovascular: Rate and Rhythm: Normal rate and regular rhythm. Pulses: Normal pulses. Heart sounds: Normal heart sounds. Pulmonary: Effort: Pulmonary effort is normal. Breath sounds: Normal breath sounds. Abdominal: Palpations: Abdomen is soft. Musculoskeletal: General: Normal range of motion. Skin: General: Skin is warm and dry. Neurological: General: No focal deficit present. Mental Status: He is alert and oriented to person, place, and time. Psychiatric: Mood and Affect: Mood normal. Behavior: Behavior normal. Judgment: Judgment normal. RESULTS No results found for this or any previous visit (from the past 1 hour(s)). ASSESSMENT/PLAN 1. Injury of left ear, initial encounter Orders Placed This Encounter ENT (OTOLARYNGOLOGY) Injury to left ear canal. On exam, blood clot completely obstructing left ear canal noted. Thoroughly discussed with patient and family member risk of removal in the outpatient setting. Discussed following up with ENT for further management, referral placed. Discussed closely following up with PCP as well, patient has follow up with PCP on 03/22/24. Discussed at home care. Thoroughly discussed red flag signs and symptoms that should prompt return to the ER. Patient and family member agreeable to plan. If symptoms worsen patient was advised to follow up in our office, primary care provider or the Emergency Dept. Benefits, Risks, Contraindications, and Complications of recommended treatments were explained. The patient understands and agrees to proceed with the plan. [facility] History of Present illness Narrative* 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, ROBIN - STRUCTURAL METAL FABRICATOR APPRENTICE - 03/10/2024 11:30 AM EDT Images from the original note were not included. [facility]: [facility] [employer] [place] [address] [facility] [address] Dept: [phone] Dept Loc: [phone] Visit type: Established patient - Virtual Reason for Visit: Postop Assessment/Plan Diagnosis: CAD s/p CABG 02/02/24: Dr. Vargas- CABGx3 (MCDUFFIE-LAD, SVG-OM1-PDA sequential), LEVH, modified MAZE with left atrial appendage clip Plan: POD#37 Day from Discharge (02/09/2024) #30 - Patient remains in [facility]. He reports he continues to improve from a strength and stamina standpoint. He is still having some bloody sputum at times, which they are working up. - Patient will call our office once he is discharged from [facility]. We charles schedule in office follow up at that time. Disposition: F/U with CTS once discharged from [facility] Patient verbalized understanding of plan and stated they would call if any questions or concerns arise. Treatment Team: PCP: Estephania Alvarado Cardiology: [facility] Patient was seen today via Telehealth by agreement and consent. I used the following Telehealth technology: Audio capability only. Total length of call 10 minutes. The patient was offered and advisedvideo for a more comprehensive evaluation, but the patient declined or was unable to use video. Patient location: Patient Location: Outpatient hospital. This patient encounter is appropriate and reasonable under the circumstances: transportation issues . The patient has been advised of the potential risks and limitations of this mode of treatment (including but not limited to the absence of in-person examination) and has agreed to be treated in a remote fashion in spite of them. Any and all o f the patient's/patient's family's questions on this issue have been answered and I have made no promises or guarantees to the patient. The patient has also been advised to contact this office for worsening conditions or problems, and seek emergency medical treatment and/or call 911 if the patient deems either necessary. The patient stated that they are currently in the [facility]. If the patient is a minor, permission has been obtained by the parent or guardian for the patient to receive medical care at this visit. Patient identification was verified at the start of the visit: yes Total time spent on this encounter: 20 minutes Subjective HPI: 79 y.o. male who was direct admitted from [facility] due to increase in SOB and chest pain. CXR completed at [facility] showed bilateral pleural effusions left greater than right with bibasilar atelectasis and/or infiltrates more prominent at the left lung base. Patient is known to our practice. He recently underwent CABGx3, MAZE, LAAL with atriclip on 02/[address] Vargas. Post op course was uncomplicated and once medically optimized he was discharged home with family on POD#7. Per patient after he got home he continue to decline from a respiratory standpoint. He noticed hiswork of breathing worsened and he could barely walk without getting short of breath. He does admit to some CP but relates that to his incision. He had his family take him to [facility] which led to his transfer to [facility]. Patient was admitted for COPD exacerbation. Blood tinged sputum noted, attributed to bronchitis. PNA PCR with serratia marcescens, sputum culture with serratia, abx changed to bactrim IV, able to transition to PO ABX. Also seen by Pulmonology, treated with steroid burst. Patient was weaned back to home 3L O2. Was able to discharge to [facility] on 02/25/24. 03/10/24: Patient remains in [facility]. He reports he continues to get stronger. Review of Systems Constitutional: Negative for fatigue and fever. Respiratory: Positive for cough and shortness of breath. Negative for wheezing. Cardiovascular: Negative for chest pain, palpitations and leg swelling. Skin: Negative for pallor, rash and wound. Objective Patient reported: none noted Wt Readings from Last 3 Encounters: 02/25/24 154 lb 15.7 oz (70.3 kg) 02/09/24 161 lb 9.6 oz (73.3 kg) 01/26/24 150 lb 6.4 oz (68.2 kg) Physical exam deferred due to virtual visit-with audio (telephone) capabilities only Labs/Imaging/Testing: reviewed EMR, see A&P for pertinent diagnostic results related to office visit Disclaimer INFORMED CONSENT:The nature and purpose of the proposed treatment or procedure have been discussed.The risks and benefits of the proposed treatment or procedures have been reviewed. Alternatives have been reviewed in addition to the risks and benefits of not receiving treatments or undergoing procedures. Pursuant to this discussion, the patient agrees to undergo the proposed treatment or procedure. Captured images seen in this note from are not a substitute for a comprehensive interpretation of the entire data set as reflected by the interpreting physician with regard to radiology, echocardiography, and other diagnostic images. This note may have been dictated using [employer] Practice Edition 2.6 and/or [employer] Voice Recognition Feature. The document was proofread, however unrecognized voice recognition grain manager errors may be present. documented in this [facility]08-08-2024 Nurse Note* Mely Bronson LPN - 02/25/2024 2:55 PM EDT Taken to facility by Mejia Kenyon [id number] Nurse Note* Mely Bronson LPN - 02/25/2024 2:55 PM EDT Taken to facility by Mejia Kenyon * Mely Bronson LPN - 02/25/2024 1:36 PM EDT Report called to [facility] * Misty Aragon RN - 02/20/2024 8:30 PM EDT This RN was notified by tech for a blood pressure of 68/39 (49) at 1939. Upon assessment, pt deniesHA, dizziness, CP. Confirms he has intermittent exertional dyspnea but denied current SOB. Pt is A+Ox4. Chest tube assessed. No noted crepitus or air-leak. Output serosanguinous as it had been previously. No excessive output noted since last recorded output. This RN moved the BP cuff from the LUE to the RUE and re-assessed BP, which was 83/38 (46) at 194.Monitor alarming at this time stating "pacer not capturing". 12-lead ecg ordered per protocol by this RN at 1944. Cardiology notified at 194 of current status via secure chat. Dr. East notified via secure chat at 1955 of the above findings, as well as resulted 12-lead ecg results. Dr. East ca lled 1Central extension and requested to message MICU to come to bedside to assess patient. Rapid response contacted approx. 1954. MICU to bedside 2015. CXR ordered. Dr. Carlson performed ultrasound. STAT labs ordered and sent. Given down-trending hgb, 1 unit PRBC ordered. 50g albumin also ordered. Blood consent signed by patient. Patient with no complaints at this time. Vital signs improving (see vital sign documentation). * Misty Aragon RN - 02/20/2024 8:16 PM EDT MICU at bedside evaluating patient. * Ladan Reyes RN - 02/17/2024 9:07 PM EDT Messaged attending for multiple BP readings of systolic in 80's and diastolic in the 50's. Pt is asymptomatic and color is good. Thoracentesis site is clean, intact, and dry. No new orders at this time. * Rachelle Heck RN - 02/17/2024 11:58 AM EDT Patient arrived to Ultrasound department for thoracentesis. History, medications and allergies reviewed. PA. Foss in to discuss procedure and informed consent obtained. Patient assisted to sitting on the edge of the bed. Left upper back scanned, marked and prepped in sterile fashion. 1L of dark red fluid removed. Vaseline guaze dressing applied. Patient tolerated procedure well. documented in this [facility]08-08-2024 History of Present illness Narrative* Nasima GrangerYONI - 02/25/2024 1:43 PM EDT Images from the original note were not included. OCCUPATIONAL THERAPY [facility] Treatment Note Name/MRN: Darin Breaux ([id number]) Date of : 1945 Age: 79 y.o. Room/Bed: 1C-131/1C-131 A Discharge Recommendation: Halfway Facility Equipment Needed: (continue to assess) Prior Level of Function ADL Assistance: Independent Ambulation Assistance: Independent Transfer Assistance: Independent Assessment Pt limited with SOBOE/decreased functional activity tolerance and strength. CGA for ADLs, transfers; edu on "move in the tube" for increased STS within sternal precautions. Recommend FBT at discharge Subjective Pt agreeable to OT services; RN approved Pain: RN managing pain. 0-10 pain scale: 5/10 Location: LLE Medical Precautions: No active isolations Proper PPE donned/doffed in accordance with facility standards. Fall Risk: Hutchison Fall Risk Score: 60 (High Risk) Precautions/Restrictions: Lines/Drains/Airways: PIV Sternal precautions Family/Caregiver Present: none Objective ADLs LE Dressing: Contact Guard, assist with balance dynamic standing; fww used. Doff/don pants, don underwear, doff/don bilateral socks; increased time and effort; SOBOE, instruction for pursed lip breathing. AE edu provided; did not trial for EC. Toileting: pt declined need to void Grooming: Supervision, seated chair level hands and face UE Dressing: Min Assist, Threading BUE's minimally to don button down shirt UE Bathing: did not trial this session; edu on EC with use of hand held shower head/shower chair/ext tub bench LE Bathing: did not trial; edu on AE for EC w use of LH sponge Adaptive Equipment: Ext tub bench/shower chair and BSC as riser for EC All tasks completed within sternal precautions; Teach back w/100% accuracy verbally and w/demonstration Transfers/Mobility Sit to stand: Contact Guard Stand to sit: Contact Guard Sitting balance: Supervision Standing balance: Contact Guard Fww used Plan Continue acute OT per plan of care. Safety/Education Safety Safety Devices in place: All fall risk precautions in place, call light within reach, left in chair, patient at risk for falls, nurse notified, and no alarms engaged upon entry Restraints: No Education Education Given To: patient Education Provided: OT Role, Plan of Care, Precautions, ADL Adaptive Strategies, Transfer Training,Energy Conservation, Equipment, Fall Prevention Education, Discharge Recommendations, Benefits of Increasing Activity, and Breathing Techniques Education Method: Verbal, Demonstration, and Teach Back Barriers to Learning: Hearing Education Outcome: Verbalized Understanding, Demonstrated Understanding, and Teach back with 100% accuracy; verbal and demonstration on Sternal precautions and move in the tube AM-PAC AM-PAC Inpatient Daily Activity Raw Score: 21 ADL Inpatient CMS G-Code Modifier: CJ Goals Patient Stated Goal: to go home Encounter Problems Encounter Problems (Active) Balance Patient will maintain dynamic standing balance for 3-5 minutes with modified independence in order to demonstrate decreased risk of falling. (Progressing) Start: 02/21/24 Expected End: 03/20/24 Bathing Patient will utilize adaptive techniques to bathe body SD. (Progressing) Start: 02/21/24 Expected End: 03/20/24 Dressing Upper Extremities Patient will complete upper body dressing SD. (Progressing) Start: 02/21/24 Expected End: 03/20/24 Dressings Lower Extremities Patient will dress lower body SD. (Progressing) Start: 02/21/24 Expected End: 03/20/24 Toileting Patient will complete toileting tasks at standard toilet with modified independence. (Progressing) Start: 02/21/24 Expected End: 03/20/24 Therapy Time Individual Co-treatment Time In 1300 Time Out 1338 Minutes 38 Timed Code Treatment Minutes: 38 Minutes (2 self 1 act) YONI Schulz * Latanya Hutchins PT - 02/25/2024 11:56 AM EDT Images from the original note were not included. PHYSICAL THERAPY [facility] Treatment Note Name/MRN: Darin Breaux ([id number]) Date of : 1945 Age: 79 y.o. Room/Bed: 1C-131/1C-131 A Discharge Recommendation: Halfway Facility Prior Level of Function ADL Assistance: Independent Ambulation Assistance: Independent Transfer Assistance: Independent Assessment Pt pleasant and agreeable to participate this date. Pt performs bed mobility with HOB and SBA. Pt transfers with min A. Pt ambulates within room and reports SOB and monitor is having trouble reading stats. Pt encouraged to sit down. Pt performs exercises while seated in chair. Monitor having trouble capturing pacer and reflects asystole at points. Pt reports being okay, pt is encouraged to rest and nurse is notified. Subjective Pleasant and agreeable Pain: Pt denies any current pain. Medical Precautions: No active isolations Proper PPE donned/doffed in accordance with facility standards. Fall Risk: Hutchison Fall Risk Score: 60 (High Risk) Precautions/Restrictions: Lines/Drains/Airways: PIV Overall Cognitive Status: WNL Overall Orientation Status: Oriented x4 Family/Caregiver Present: none Objective Bed Mobility Supine to sit: SBA HOB elevated Transfers/Mobility Sit to stand: Min Assist Stand to sit: Contact Guard Good job maintaining precautions (arms across chest),. Pt rocks to stand. Device(s) used: Front wheeled walker Ambulation Ambulation 1 Assistive device(s) used: Front wheeled walker Assist level: Contact Guard Distance (ft): 15 Quality of gait: narrow REZA, slow demetrio, postural sway, decreased step length, SOBOE Exercises Marches x10 Ankle pumps x10 LAQ x10 Plan Continue acute PT per plan of care. Safety/Education Safety Safety Devices in place: call light within reach, left in chair, and nurse notified Restraints: N/A Education Education Given To: patient Education Provided: PT Role, PT Goals, Plan of Care, Transfer Training, Energy Conservation, Fall Prevention Education, Discharge Recommendations, and Benefits of Increasing Activity Education Method: Verbal Barriers to Learning: None Education Outcome: Verbalized Understanding Outcome Measures AM-PAC AM-PAC Inpatient Mobility Raw Score (No Stairs) : 19 JH-HLM JH-HLM Score: Walked 10 steps or more (i.e. walked to restroom) Goals Patient Stated Goal: to go home Encounter Problems Encounter Problems (Active) Mobility Patient will ambulate 150 feet with modified independence and least restrictive device in order to improve safety and independence with mobility. (Progressing) Start: 02/18/24 Expected End: 03/17/24 Patient will ascend and descend 3 stairs with least restrictive device and modified independence inorder to safely negotiate home. (Not Addressed) Start: 02/18/24 Expected End: 03/17/24 Pain - Adult Transfers Patient will complete sit to stand transfer with independence to least restrictive device in order to improve safety and prepare for out of bed mobility. (Progressing) Start: 02/18/24 Expected End: 03/17/24 Therapy Time Individual Co-treatment Time In 1055 Time Out 1115 Minutes 20 Latanya Hutchins PT * Latanya Hutchins PT - 02/25/2024 8:45 AM EDT Images from the original note were not included. PHYSICAL THERAPY [facility] Name/MRN: Darin Breaux ([id number]) Date: 02/25/2024 PT attempted this AM pt requesting to wait until after he gets his breakfast. Will re-attempt at a later time. Latanya Hutchins PT * Chad Carlson, DO - 02/25/2024 8:22 AM EDT Images from the original note were not included. [facility] [place], Pulmonary Medicine Patient - Darin Breaux, Age - 79 y.o. - 1945 Room Number - @[email or web address]@ Consulting - Mike East MD Primary Care Physician - Estephania Alvarado Date of Admission - 02/15/2024 7:39 PM Hospital Day - 9 Reason for Consult/Chief Complaint: dyspnea Interval History No acute events overnight. The patient reports he feels like he needs a breathing treatment this morning. Denies chest pain. Reports he is still coughing up some bloody sputum. ROS: 05/02 systems reviewed and otherwise negative except as noted above. Objective Vitals: BP 109/70 (BP Location: Right arm, Patient Position: Lying) Pulse 89 Temp (!) 34.9 C (94.8 F) (Temporal) Resp 18 Wt 70.3 kg (154 lb 15.7 oz) Comment: bed SpO2 100% BMI 19.90 kg/m Pulse Ox: SpO2 Av % Min: 90 % Max: 100 % Supplemental O2: O2 Flow Rate (L/min): 3 L/min I/O 24HR INTAKE/OUTPUT: Intake/Output Summary (Last 24 hours) at 02/25/2024 0952 Last data filed at 02/25/2024 0548 Gross per 24 hour Intake 250 ml Output 1100 ml Net -850 ml Exam General appearance: Awake, alert, no acute distress. On 3 liters NC. Thin HEENT: NCAT, pupils equal, round and reactive to light, negative for scleral icterus. No congestion. Neck: ROM normal, supple, trachea midline. No lymphadenopathy Cardiovascular: RRR. Heart sounds normal. Negative for murmur, friction rub or gallop. Pulmonary: effort normal, no accessory muscle use noted, decreased airflow. Pt. Coughed up some bloody mucous, it is brown tinged sputum Abdomen: Soft, non tender, non-distended, bowel sounds normal. No palpable masses. Musculoskeletal: ROM normal, Negative for swelling, tenderness or deformity. Skin: warm, dry. Skin color, texture, turgor normal. Negative for rashes or lesions. Extremities: no clubbing, cyanosis, or extremity edema Neurological: No focal deficits. Alert and oriented x 3. Cranial nerves II-XII are intact Psychiatric: Mood, behavior, thought content normal. Cooperative with exam. Medications apixaban, 5 mg, Oral, BID aspirin, 81 mg, Oral, Daily atorvastatin, 80 mg, Oral, Daily ipratropium-albuterol, 3 mL, Nebulization, TID metoprolol tartrate, 25 mg, Oral, BID mometasone-formoterol, 2 puff, Inhalation, BID pantoprazole, 20 mg, Oral, qAM AC predniSONE, 40 mg, Oral, Daily sodium chloride 0.9%, 5-40 mL, IntraVENous, q12h sulfamethoxazole-trimethoprim (Bactrim) 336 mg of trimethoprim in dextrose 5 % 500 mL IVPB, 5 mg/kgof trimethoprim, IntraVENous, q8h tiotropium, 2 puff, Inhalation, Daily PRN medications: acetaminophen, albuterol, naloxone, ondansetron ODT OR ondansetron, oxyCODONE,polyethylene glycol (PEG) 3350, sodium chloride, sodium chloride, sodium chloride 0.9% Labs CBC Recent Labs 02/25/24 0131 WBC 6.0 HGB 7.9* HCT 25.4* MCV 91.7 PLT 220 BMP: Recent Labs 02/24/24 0008 NA 132* K 4.7 CL 101 CO2 23 BUN 32* CREATININE 1.11 GLUCOSE 118* MG 2.1 PHOS 3.5 ABG: No results for input(s): "PH", "PCO2", "PO2", "HCO3", "O2SAT" in the last 72 hours. LIVER PROFILE No results for input(s): "AST", "ALT", "LIPASE", "AMYLASE", "BILIDIR", "BILITOT", "ALKPHOS" in the last 72 hours. No lab exists for component: "LB" INR Lab Results Component Value Date INR 1.0 02/05/2024 INR 1.1 02/04/2024 INR 1.1 02/03/2024 PROTIME 11.4 02/05/2024 PROTIME 11.8 02/04/2024 PROTIME 11.8 02/03/2024 PTT Lab Results Component Value Date APTT 31.0 (H) 02/05/2024 Cultures COVID19: No results found for: "COVID19" Legionella Ag: No components found for: "LEGIONELLAANTIGEN" Strep Ag: No components found for: "STREPNEUMAGU" Sputum Cx: No components found for: "RESPCULTURE" Gram Stain: Lab Results Component Value Date LABGRAM (A) 02/22/2024 Few Polymorphonuclear leukocytes per low power field LABGRAM Few Epithelial cells per low power field (A) 02/22/2024 LABGRAM Few Gram positive cocci (A) 02/22/2024 LABGRAM Rare Gram positive bacilli (A) 02/22/2024 LABGRAM Rare Gram negative bacilli (A) 02/22/2024 LABGRAM Rare Gram negative coccobacilli (A) 02/22/2024 PNA PCR: No components found for: "PNPCRPNL" Urine Cx: No components found for: "LABURIN" Blood Cx: No components found for: "BC" Radiology Previous imaging reviewed, no new images. Active Hospital Problem List @[id number]@ Assessment and Plan A Acute exacerbation of COPD Hemoptysis: likely bronchitis with blood tinged sputum, stable. Acute on chronic hypoxemic respiratory failure, improved to home 3lnc CAD/CABG 02/02/24 Hx of Afib s/p MAZE on DOAC Lung nodules P Patient with some improvement, on prednisone burst, day 4/5, lama/laba/ics with dulera and spiriva,encourage increased activity, PNA PCR with serratia marcescens, sputum culture with serratia, on day 3 of bactrim, hemoptysis stable, suspect secondary to infection, ok to continue DOAC Now on home oxygen, titrate oxygen to maintain sats 88 and above CTS service primary Continue doac and home metoprolol resumed. CT from July reviewed, recommend follow up with Dr. Madison after DC. Can transition to PO bactrim on DC to SNF Would recommend completing a ten day course. Currently on09/26 Advance Directive: Full Code Discharge planning: TBD Case discussed with nurse and patient/family. Questions and concerns addressed. * Elma Ernestine Eduardo, BUSINESS LINE CONTROLLER - 02/24/2024 1:48 PM EDT Images from the original note were not included. PHYSICAL THERAPY [facility] Treatment Note Name/MRN: Darin Breaux ([id number]) Date of : 1945 Age: 79 y.o. Room/Bed: 1C-131/1C-131 A Discharge Recommendation: Halfway Facility Prior Level of Function ADL Assistance: Independent Ambulation Assistance: Independent Transfer Assistance: Independent Assessment Pt presents with the listed deficits and decreased functional mobility. Bed Mobility demo'd SUP with use of bed features. Transfers demo'd CGA from various surface heights. Ambulation demo'd with useof FWW at [place]. Pt limited by SOBOE, weakness, decreased balance, decreased endurance and fatigue. Increased time required to complete tasks for line and tube management. Able to maintain all precautions throughout session. PT goals not met. Pt would benefit from continued skilled PT. Recommend SNFat discharge. Subjective Pt supine. Agreeable to therapy. RN cleared for PT. Reviewed Sternal Precautions. Pt able to recallall and maintain throughout session. Pain: Pt denies any current pain. Medical Precautions: No active isolations Proper PPE donned/doffed in accordance with facility standards. Fall Risk: Hutchison Fall Risk Score: 60 (High Risk) Precautions/Restrictions: Lines/Drains/Airways: PIV Overall Cognitive Status: WFL Overall Orientation Status: Oriented x4 Family/Caregiver Present: none Objective Bed Mobility Supine to sit: Supervision Sit to supine: Supervision Scooting: Supervision Increased time and effort required to complete. HOB elevated with use of bed rails. No cues for sequencing and initiation required. Able to maintain all precautions. Required rest break d/t SOBOE. Cues for pursed lip breathing. Increased O2 to 3L. Required no physical assist. Denies dizziness. Increased time for line and tube management. Transfers/Mobility Sit to stand: Contact Guard Stand to sit: Contact Guard Toilet: CGA X 3 from EOB, x 2 from toilet. Good anterior wt shift. Increased time for line and tube management.Able to maintain precautions throughout. Demo'd proper hand and foot placement. Cues to reach for safety awareness and maintain eccentric control when returning to seated surface. Cues for upright posture. Notable posting against bed to maintain stability. No overt LOB. SOBOE, requiring cues for pursed lip breathing. Denies dizziness. Device(s) used: Front wheeled walker Ambulation Ambulation 1 Assistive device(s) used: Front wheeled walker Assist level: Contact Guard Distance (ft): 25ft Quality of gait: No LOB, reciprocal stepping, B foot clearance, shuffling, uneven step length, slowcadence, postural sway Heavy SOBOE. Required extended rest break in sitting with cues for pursed lip breathing. Able to manage FWW with safety. Cues to increase step height and length. Line and tube management assist required. Ambulation 2 Assistive device(s) used: Front wheeled walker Assist level: Min Assist Distance (ft): 12ft Quality of gait: See above. SOBOE, requiring increased time and rest break Balance During Session: Posture: fair Sitting - Static: Supervision, SBA Sitting - Dynamic: Supervision Standing - Static: Contact Guard Standing - Dynamic: Contact Guard, Min Assist Plan Continue acute PT per plan of care. Safety/Education Safety Safety Devices in place: All fall risk precautions in place, call light within reach, left in bed, gait belt, patient at risk for falls, nurse notified, and no alarms engaged upon entry Restraints: No Education Education Given To: patient Education Provided: PT Role, PT Goals, Gait Training, Plan of Care, Precautions, Transfer Training,Energy Conservation, Equipment, Fall Prevention Education, Discharge Recommendations, Benefits of Increasing Activity, and Breathing Techniques Education Method: Verbal, Demonstration, and Teach Back Barriers to Learning: None Education Outcome: Verbalized Understanding, Demonstrated Understanding, and Continued Education Needed Outcome Measures AM-PAC AM-PAC Inpatient Mobility Raw Score (No Stairs) : 17 JH-HLM -HLM Score: Walked 25 ft or more (i.e. walked outside of room) Goals Patient Stated Goal: to go home Encounter Problems Encounter Problems (Active) Mobility Patient will ambulate 150 feet with modified independence and least restrictive device in order to improve safety and independence with mobility. (Progressing) Start: 02/18/24 Expected End: 03/17/24 Patient will ascend and descend 3 stairs with least restrictive device and modified independence inorder to safely negotiate home. (Not Addressed) Start: 02/18/24 Expected End: 03/17/24 Pain - Adult Transfers Patient will complete sit to stand transfer with independence to least restrictive device in order to improve safety and prepare for out of bed mobility. (Progressing) Start: 02/18/24 Expected End: 03/17/24 Therapy Time Individual Co-treatment Time In 0952 Time Out 1016 Minutes 24 Timed Code Treatment Minutes: 24 Minutes (GT, FA) BUSINESS LINE CONTROLLER wore PPE in compliance with hospital guidelines and regulation when treating this patient. Elma Eduardo, BUSINESS LINE CONTROLLER * Chad Carlson, DO - 02/24/2024 9:48 AM EDT Images from the original note were not included. [facility] [place], Pulmonary Medicine Patient - Darin Breaux, Age - 79 y.o. - 1945 Room Number - @[email or web address]@ Consulting - Mike East MD Primary Care Physician - Estephania Alvarado Date of Admission - 02/15/2024 7:39 PM Hospital Day - 8 Reason for Consult/Chief Complaint: dyspnea Interval History No acute events overnight. The patient reports he has had a couple of episodes where he got warm and his breathing was more difficult, overall reports breathing feels mildly improved. Cough seems to be about the same, still producing blood streaked sputum. Patient has been afebrile, reports increasing activity has gone well, and he felt well sitting up in the chair. ROS: 05/02 systems reviewed and otherwise negative except as noted above. Objective Vitals: BP 103/66 Pulse 71 Temp 36.2 C (97.1 F) (Temporal) Resp 25 Wt 69.8 kg (153 lb 14.1 oz) SpO2 98% BMI 19.76 kg/m Pulse Ox: SpO2 Av.6 % Min: 90 % Max: 100 % Supplemental O2: O2 Flow Rate (L/min): 3 L/min I/O 24HR INTAKE/OUTPUT: Intake/Output Summary (Last 24 hours) at 02/24/2024 0948 Last data filed at 02/24/2024 0857 Gross per 24 hour Intake 200 ml Output 300 ml Net -100 ml Exam General appearance: Awake, alert, no acute distress. On 3 liters NC. Thin HEENT: NCAT, pupils equal, round and reactive to light, negative for scleral icterus. No congestion. Neck: ROM normal, supple, trachea midline. No lymphadenopathy Cardiovascular: RRR. Heart sounds normal. Negative for murmur, friction rub or gallop. Pulmonary: effort normal, no accessory muscle use noted, increased wheezes, and increased airflow. Abdomen: Soft, non tender, non-distended, bowel sounds normal. No palpable masses. Musculoskeletal: ROM normal, Negative for swelling, tenderness or deformity. Skin: Warm, dry. Skin color, texture, turgor normal. Negative for rashes or lesions. Extremities: no clubbing, cyanosis, or extremity edema Neurological: No focal deficits. Alert and oriented x 3. Cranial nerves II-XII are intact Psychiatric: Mood, behavior, thought content normal. Cooperative with exam. Medications apixaban, 5 mg, Oral, BID aspirin, 81 mg, Oral, Daily atorvastatin, 80 mg, Oral, Daily ipratropium-albuterol, 3 mL, Nebulization, TID metoprolol tartrate, 25 mg, Oral, BID mometasone-formoterol, 2 puff, Inhalation, BID pantoprazole, 20 mg, Oral, qAM AC predniSONE, 40 mg, Oral, Daily sodium chloride 0.9%, 5-40 mL, IntraVENous, q12h sulfamethoxazole-trimethoprim (Bactrim) 336 mg of trimethoprim in dextrose 5 % 500 mL IVPB, 5 mg/kgof trimethoprim, IntraVENous, q8h tiotropium, 2 puff, Inhalation, Daily PRN medications: acetaminophen, albuterol, naloxone, ondansetron ODT OR ondansetron, oxyCODONE,polyethylene glycol (PEG) 3350, sodium chloride, sodium chloride, sodium chloride 0.9% Labs CBC Recent Labs 02/24/24 0008 WBC 6.4 HGB 8.1* HCT 25.1* MCV 90.3 PLT 218 BMP: Recent Labs 02/24/24 0008 NA 132* K 4.7 CL 101 CO2 23 BUN 32* CREATININE 1.11 GLUCOSE 118* MG 2.1 PHOS 3.5 ABG: No results for input(s): "PH", "PCO2", "PO2", "HCO3", "O2SAT" in the last 72 hours. LIVER PROFILE No results for input(s): "AST", "ALT", "LIPASE", "AMYLASE", "BILIDIR", "BILITOT", "ALKPHOS" in the last 72 hours. No lab exists for component: "LB" INR Lab Results Component Value Date INR 1.0 02/05/2024 INR 1.1 02/04/2024 INR 1.1 02/03/2024 PROTIME 11.4 02/05/2024 PROTIME 11.8 02/04/2024 PROTIME 11.8 02/03/2024 PTT Lab Results Component Value Date APTT 31.0 (H) 02/05/2024 Cultures COVID19: No results found for: "COVID19" Legionella Ag: No components found for: "LEGIONELLAANTIGEN" Strep Ag: No components found for: "STREPNEUMAGU" Sputum Cx: No components found for: "RESPCULTURE" Gram Stain: Lab Results Component Value Date LABGRAM (A) 02/22/2024 Few Polymorphonuclear leukocytes per low power field LABGRAM Few Epithelial cells per low power field (A) 02/22/2024 LABGRAM Few Gram positive cocci (A) 02/22/2024 LABGRAM Rare Gram positive bacilli (A) 02/22/2024 LABGRAM Rare Gram negative bacilli (A) 02/22/2024 LABGRAM Rare Gram negative coccobacilli (A) 02/22/2024 PNA PCR: No components found for: "PNPCRPNL" Urine Cx: No components found for: "LABURIN" Blood Cx: No components found for: "BC" Radiology Previous imaging reviewed, no new images. Active Hospital Problem List @[id number]@ Assessment and Plan A Acute exacerbation of COPD Hemoptysis: likely bronchitis with blood tinged sputum, asked nurse to give patient a cup and notify provider to help quantify the character and quantity of hemoptysis Acute on chronic hypoxemic respiratory failure, improved to home 3lnc CAD/CABG 02/02/24 Hx of Afib s/p MAZE on DOAC Lung nodules P Patient with some improvement, on prednisone burst, lama/laba/ics with dulera and spiriva, encourage increased activity, PNA PCR with serratia marcescens, sputum culture with serratia, abx changed to bactrim IV, hemoptysis stable, suspect secondary to infection, ok to continue DOAC Now on home oxygen, titrate oxygen to maintain sats 88 and above CTS service primary Continue doac and home metoprolol resumed. CT from July reviewed, recommend follow up with Dr. Madison after DC. Can transition to PO bactrim on DC to SNF Would recommend completing a ten day course. Advance Directive: Full Code Discharge planning: TBD Case discussed with nurse and patient/family. Questions and concerns addressed. Associated attestation - Aubrey Telles MD - 02/24/2024 10:56 AM EDT I have personally performed a [id number] diagnostic evaluation on this patient on date of service02/24/2024. History, labs, imaging studies, and electronic medical record have been reviewed by me. This note documented by the [x]pet house sitter []TACO reflects my history, exam, and medical decision making. I have reviewed and agree with the care plan. Changes were made in the orders as necessary. ROS documentation was reviewed and negative unless otherwise stated in HPI. Additional pertinent interval history, ROS, and physical exam findings: Somewhat better but still with cough. Labs stable. Getting up to chair. Arrangements for inpatient rehab pending. - Continue IV TMP/SMX in-house - Transition to Bactrim DS one tab BID for a total of 10 days at discharge - Scheduled bronchodilators - Complete 5 day course prednisone 40mg every day. - CT scan 07/2023 without apparent malignancy. Follow up with Dr. Madison as outpt. * 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, JOB ANALYSIS MANAGER - STRUCTURAL METAL FABRICATOR APPRENTICE - 02/24/2024 9:42 AM EDT Images from the original note were not included. Cardiothoracic Surgery Progress Note PATIENT NAME: Darin Breaux DATE: 02/24/24 HPI: 79 y.o. male who was direct admitted from [facility] due to increase in SOB and chest pain. CXR completed at [facility] showed bilateral pleural effusions left greater than right with bibasilar atelectasis and/or infiltrates more prominent at the left lung base. Patient is known to our practice. He recently underwent CABGx3, MAZE, LAAL with atriclip on 02/[address] Vargas. Post op course was uncomplicated and once medically optimized he was discharged home with family on POD#7. Perpatient after he got home he continue to decline from a respiratory standpoint. He noticed his workof breathing worsened and he could barely walk without getting short of breath. He does admit to some CP but relates that to his incision. He had his family take him to [facility] which led to his transfer to [facility]. Interval History: 02/24/24: One episode of HTN overnight, otherwise VSS , afebrile. Remains on baseline 3L NC. No acute events overnight. States he is breathing good today as long as the temperature stays low in his room. Review of Systems Constitutional: Positive for activity change and fatigue. Negative for diaphoresis and fever. Respiratory: Positive for cough and shortness of breath. Negative for wheezing. Cardiovascular: Negative for chest pain, palpitations and leg swelling. Gastrointestinal: Negative for abdominal distention, constipation and diarrhea. Skin: Negative for color change, pallor and rash. Objective: Last BM Date: 02/22/24 Vitals: BP: 103/66, MAP (mmHg): 127, BP Method: Automatic Heart Rate: 71 Resp: 25 Temp: 36.2 C (97.1 F), Temp Source: Temporal BMI (Calculated): 19.75 BMP: Recent Labs 02/22/24 0017 02/24/24 0008 NA 136 132* K 4.3 4.7 CL 103 101 CO2 27 23 BUN 35* 32* CREATININE 1.12 1.11 CALCIUM 9.1 9.4 MG -- 2.1 PHOS -- 3.5 CBC: Recent Labs 02/22/24 0017 02/23/24 0624 02/24/24 0008 WBC 6.3 5.2 6.4 HGB 8.6* 8.8* 8.1* HCT 27.9* 28.4* 25.1* PLT 242 233 218 MCV 95.2 91.9 90.3 RDW 16.0* 15.5* 15.6* INR: No results for input(s): "INR" in the last 72 hours. Physical Exam Constitutional: Interventions: Nasal cannula in place. Cardiovascular: Rate and Rhythm: Normal rate and regular rhythm. Heart sounds: Normal heart sounds. Comments: PPM Pulmonary: Effort: Pulmonary effort is normal. Breath sounds: Wheezing and rhonchi present. Abdominal: General: Bowel sounds are normal. Palpations: Abdomen is soft. Tenderness: There is no abdominal tenderness. Musculoskeletal: Right lower leg: No edema. Left lower leg: No edema. Skin: General: Skin is warm and dry. Capillary Refill: Capillary refill takes less than 2 seconds. Findings: Bruising and ecchymosis present. Comments: Surgical Incisions: well approximate; clean dry with no drainage noted. Surrounding skin no redness, warmth, or signs of infection noted. Neurological: Mental Status: He is alert and oriented to person, place, and time. Psychiatric: Behavior: Behavior is cooperative. Assessment: SOB likely related to post op fluid overload/bilateral pleural effusions CAD s/p CABG (02/02/24) SSS, Afib s/p dual chamber [facility], on Eliquis s/p MAZE AE COPD Hemoptysis HTN HPL COPD/Emphysema (3L O2) Current tobacco use GERD AAA s/p Endovascular repair Hx PCI Plan: Patient status: tele Continue current med regimen: ASA, Statin Resumed BB- increase to 25mg BID Holding lasix- patient appears euvolemic Continue NOAC-AFib Continue Duoneb, Spiriva, Symbicort, Albuterol PRN Pulmonology/CCM reevaluated, appreciate recs treat for AE COPD with abx and steroids + Serratia- Bactrim IV q8hr, recommend 10 day course Pending sputum culture final results PT recommending SNF Awaiting final results of sputum culture. Once completed will transition to PO abx and plan for discharge to SNF. Hopeful for discharge tomorrow. * YONI Garza - 02/23/2024 11:18 AM EDT Images from the original note were not included. OCCUPATIONAL THERAPY [facility] Treatment Note Name/MRN: Darin Breaux ([id number]) Date of : 1945 Age: 79 y.o. Room/Bed: 1C-131/1C-131 A Discharge Recommendation: Halfway Facility Equipment Needed: (continue to assess) Prior Level of Function ADL Assistance: Independent Ambulation Assistance: Independent Transfer Assistance: Independent Assessment Currently, Pt required MIN A for functional transfers and static standing balance. Functional mobility deferred this date secondary to desat o2 levels to 86% on 4 L of o2. Pt required MIN A for UB ADL and MOD A for LB ADL without use of AE required. Pt required MAX A for toileting hygiene d/t incontinent episode of stool. Pt is limited by decreased functional endurance, decreased mobility and decreased respiratory endurance hindering indep and safety with functional tasks. Recommending SNF upon discharge in order to achieve highest level of function. Subjective Pt reclined in bed upon entry. Pt reported pain d/t coughing and produced thick mucus with tinge ofblood- RN notified of such. Pt pleasant and agreeable to OT TX. Pt stated "I gotta have it cold in here so I can breathe easier- these coughing fits make me hot all over!" Vitals were closely monitored and remained WFL throughout TX session. However, at the EOS once Pt seated EOB- Pt had a coughingfit and vitals checked once again with levels as followed at the EOS: BP- 140/63; HR- 132; 02- 86%-with 45 seconds recovery to 96%. Pt seated EOB with RN present with call light placed within reach and all needs met. Pain: Veloz-Barrios Pain Ratin = Hurts little more Pain Location: Chest from coughing Per Pt Medical Precautions: No active isolations Proper PPE donned/doffed in accordance with facility standards. Fall Risk: Hutchison Fall Risk Score: 60 (High Risk) Precautions/Restrictions: Lines/Drains/Airways: PIV, Fall, Skin & sternal precautions (recent CABG 7/16/24) Family/Caregiver Present: none Objective ADLs LE Dressing: Mod Assist physical assist to thread LLE onto pant leg opening and assist to pull up to waist level d/t decreased posterior reach with unilateral support of FWW. Toileting: SBA/ MAX A - for use of urinal d/t urgency to urinate while seated EOB. MAX A for posterior hygiene d/t incontinent episode of stool. Grooming: Contact Guard, after setup- touch assist to wash face, neck and hands with tactile cues to reach sides of head with set up assist of ADL supplies required. UE Dressing: Contact Guard UE Bathing: Min Assist LE Bathing: Mod Assist- physical assist to wash below knees + tactile and visual cues for PLB technique to decreased fatigue. Bed Mobility Supine to sit: Contact Guard Sit to supine: SBA Rolling to right: Contact Guard Rolling to left: Contact Guard Scooting: SBA Transfers/Mobility Sit to stand: Min Assist with emphasis on sternal precautions and using heart pillow and tactile cues for quad activation Stand to sit: Contact Guard Stand step: Min Assist Sitting balance: Supervision- static sitting balance EOB approx 15 minutes for grooming and UB ADL + tactile cues for forward reaching of ADL items Standing balance: Min Assist x 3 at bed level approx 60 seconds each trial for toilet hygiene + tactile cues for increased bilateral knee ext. Device(s) used: Front wheeled walker Cognition - Following commands: follows one step commands consistently - Safety judgement: decreased awareness of need for assistance - Problem solving: assistance required to generate solutions Plan Continue acute OT per plan of care. Safety/Education Safety Safety Devices in place: All fall risk precautions in place, call light within reach, left in bed, bed alarm in place, and nurse notified Restraints: No Education Education Given To: patient Education Provided: OT Role, Plan of Care, Precautions, ADL Adaptive Strategies, Transfer Training,Energy Conservation, Discharge Recommendations, Benefits of Increasing Activity, and Breathing Techniques Education Method: Verbal, Demonstration, and Teach Back Barriers to Learning: Lack of Family/Social Support Education Outcome: Verbalized Understanding and Continued Education Needed AM-PAC AM-PAC Inpatient Daily Activity Raw Score: 20 ADL Inpatient CMS G-Code Modifier: CJ Goals Patient Stated Goal: to get better Encounter Problems Encounter Problems (Active) Balance Patient will maintain dynamic standing balance for 3-5 minutes with modified independence in order to demonstrate decreased risk of falling. (Slowly Progressing) Start: 02/21/24 Expected End: 03/20/24 Bathing Patient will utilize adaptive techniques to bathe body SD. (Progressing) Start: 02/21/24 Expected End: 03/20/24 Dressing Upper Extremities Patient will complete upper body dressing SD. (Progressing) Start: 02/21/24 Expected End: 03/20/24 Dressings Lower Extremities Patient will dress lower body SD. (Progressing) Start: 02/21/24 Expected End: 03/20/24 Toileting Patient will complete toileting tasks at standard toilet with modified independence. (Not Addressed) Start: 02/21/24 Expected End: 03/20/24 Goal Note Pt declined and requested use of urinal d/t urgency requiring SBA. MAX A for posterior hygiene d/t decreased posterior reach/ sternal precautions & incontinent episode of stool. Therapy Time Individual Co-treatment Time In 1037 Time Out 1103 Minutes 26 Timed Code Treatment Minutes: 26 Minutes (1-ADL; 1- FUNCT ACT) YONI Garza * Latanya Hutchins PT - 02/23/2024 11:06 AM EDT Images from the original note were not included. PHYSICAL THERAPY [facility] Name/MRN: Darin Breaux ([id number]) Date: 02/23/2024 Tx attempted this AM, pt reporting a hard time breathing and just worked with OT. Pt declining working with PT at this time, will try again as schedule permits. Latanya Hutchins PT * 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 APRN - STRUCTURAL METAL FABRICATOR APPRENTICE - 02/23/2024 10:34 AM EDT Images from the original note were not included. Cardiothoracic Surgery Progress Note PATIENT NAME: Darin Breaux DATE: 02/23/24 HPI: 79 y.o. male who was direct admitted from [facility] due to increase in SOB and chest pain. CXR completed at [facility] showed bilateral pleural effusions left greater than right with bibasilar atelectasis and/or infiltrates more prominent at the left lung base. Patient is known to our practice. He recently underwent CABGx3, MAZE, LAAL with atriclip on 02/[address] Vargas. Post op course was uncomplicated and once medically optimized he was discharged home with family on POD#7. Perpatient after he got home he continue to decline from a respiratory standpoint. He noticed his workof breathing worsened and he could barely walk without getting short of breath. He does admit to some CP but relates that to his incision. He had his family take him to [facility] which led to his transfer to [facility]. Interval History: 02/23/24: VSS overnight, afebrile. States his breathing is about the same, on 3L NC. PCR positive for Serratia. No acute events overnight. Review of Systems Constitutional: Positive for activity change and fatigue. Negative for diaphoresis and fever. Respiratory: Positive for cough and shortness of breath. Negative for wheezing. Cardiovascular: Negative for chest pain, palpitations and leg swelling. Gastrointestinal: Negative for abdominal distention, constipation and diarrhea. Skin: Negative for color change, pallor and rash. Objective: Last BM Date: 02/20/24 Vitals: BP: 118/71, MAP (mmHg): 87, BP Method: Automatic Heart Rate: 91 Resp: 18 Temp: 36.1 C (97 F), Temp Source: Temporal BMI (Calculated): 19.1 BMP: Recent Labs 02/20/243 02/21/24 0146 02/22/24 0017 NA 134* 136 136 K 4.6 4.4 4.3 CL 102 104 103 CO2 27 26 27 BUN 33* 34* 35* CREATININE 1.27* 1.19 1.12 CALCIUM 8.9 9.0 9.1 CBC: Recent Labs 02/21/24 0146 02/22/24 0017 02/23/24 0624 WBC 5.4 6.3 5.2 HGB 8.4* 8.6* 8.8* HCT 27.0* 27.9* 28.4* PLT 243 242 233 MCV 94.4 95.2 91.9 RDW 15.9* 16.0* 15.5* INR: No results for input(s): "INR" in the last 72 hours. Physical Exam Constitutional: Interventions: Nasal cannula in place. Cardiovascular: Rate and Rhythm: Normal rate and regular rhythm. Heart sounds: Normal heart sounds. Comments: PPM Pulmonary: Effort: Pulmonary effort is normal. Breath sounds: Wheezing and rhonchi present. Abdominal: General: Bowel sounds are normal. Palpations: Abdomen is soft. Tenderness: There is no abdominal tenderness. Musculoskeletal: Right lower leg: No edema. Left lower leg: No edema. Skin: General: Skin is warm and dry. Capillary Refill: Capillary refill takes less than 2 seconds. Findings: Bruising and ecchymosis present. Comments: Surgical Incisions: well approximate; clean dry with no drainage noted. Surrounding skin no redness, warmth, or signs of infection noted. Neurological: Mental Status: He is alert and oriented to person, place, and time. Psychiatric: Behavior: Behavior is cooperative. Assessment: SOB likely related to post op fluid overload/bilateral pleural effusions CAD s/p CABG (02/02/24) SSS, Afib s/p dual chamber [facility], on Eliquis s/p MAZE HTN HPL COPD/Emphysema (3L O2) Current tobacco use GERD AAA s/p Endovascular repair Hx PCI Plan: Patient status: tele Continue current med regimen: ASA, Statin Holding BB d/t hypotension Holding lasix- patient appears euvolemic Continue NOAC-AFib Continue Duoneb, Spiriva, Symbicort, Albuterol PRN Pulmonology/CCM reevaluated, appreciate recs treat for AE COPD with abx and steroids + Serratia- abx changed to Bactrim IV q8hr Respiratory culture in progress PT recommending SNF * Chad Carlson, DO - 02/23/2024 6:39 AM EDT Images from the original note were not included. [facility] [place], Pulmonary Medicine Patient - Darin Breaux, Age - 79 y.o. - 1945 Room Number - @[email or web address]@ Consulting - Mike East MD Primary Care Physician - Estephania Alvarado Date of Admission - 02/15/2024 7:39 PM Hospital Day - 7 Reason for Consult/Chief Complaint: dyspnea Interval History No acute events overnight. The patient reports his breathing feels a little easier. He is on his home oxygen of 3lnc. Denies chest pain, coughing some whitish phlegm up. Afebrile. ROS: 05/02 systems reviewed and otherwise negative except as noted above. Objective Vitals: BP 113/84 (BP Location: Right arm, Patient Position: Sitting) Pulse 86 Temp 36.7 C (98.1 F) (Temporal) Resp 20 Wt 67.5 kg (148 lb 13 oz) SpO2 93% BMI 19.11 kg/m Pulse Ox: SpO2 Av.9 % Min: 90 % Max: 100 % Supplemental O2: O2 Flow Rate (L/min): 3 L/min I/O 24HR INTAKE/OUTPUT: No intake or output data in the 24 hours ending 02/23/24 0640 Exam General appearance: Awake, alert, no acute distress. On 3 liters NC. Thin HEENT: Normocephalic, atraumatic. Pupils equil and round, External ear normal, conjunctivae normal,negative for scleral icterus. No congestion. Neck: ROM normal, supple, trachea midline. No lymphadenopathy Cardiovascular: Regular rate and rhythm. Heart sounds normal. Negative for murmur, friction rub or gallop. Pulmonary: Effort normal, no respiratory distress. Faint wheezes appreciated. Abdomen: Soft, non distended, non tender, bowel sounds normal. No palpable masses. Musculoskeletal: ROM normal, Negative for swelling, tenderness or deformity. Skin: Warm, dry. Skin color, texture, turgor normal. Negative for rashes or lesions. Extremities: No clubbing, cyanosis, or extremity edema Neurological: No focal deficits. Alert and oriented x 3. Cranial nerves II-XII are intact Psychiatric: Mood, behavior, thought content normal. Cooperative with exam. Medications apixaban, 5 mg, Oral, BID aspirin, 81 mg, Oral, Daily atorvastatin, 80 mg, Oral, Daily [Held by provider] furosemide, 40 mg, Oral, Daily ipratropium-albuterol, 3 mL, Nebulization, TID [Held by provider] metoprolol tartrate, 25 mg, Oral, BID mometasone-formoterol, 2 puff, Inhalation, BID pantoprazole, 20 mg, Oral, qAM AC predniSONE, 40 mg, Oral, Daily sodium chloride 0.9%, 5-40 mL, IntraVENous, q12h sulfamethoxazole-trimethoprim (Bactrim) 336 mg of trimethoprim in dextrose 5 % 500 mL IVPB, 5 mg/kgof trimethoprim, IntraVENous, q8h tiotropium, 2 puff, Inhalation, Daily PRN medications: acetaminophen, albuterol, naloxone, ondansetron ODT OR ondansetron, oxyCODONE,polyethylene glycol (PEG) 3350, sodium chloride, sodium chloride, sodium chloride 0.9% Labs CBC Recent Labs 02/22/24 0017 WBC 6.3 HGB 8.6* HCT 27.9* MCV 95.2 PLT 242 BMP: Recent Labs 02/22/24 0017 NA 136 K 4.3 CL 103 CO2 27 BUN 35* CREATININE 1.12 GLUCOSE 106* ABG: No results for input(s): "PH", "PCO2", "PO2", "HCO3", "O2SAT" in the last 72 hours. LIVER PROFILE No results for input(s): "AST", "ALT", "LIPASE", "AMYLASE", "BILIDIR", "BILITOT", "ALKPHOS" in the last 72 hours. No lab exists for component: "LB" INR Lab Results Component Value Date INR 1.0 02/05/2024 INR 1.1 02/04/2024 INR 1.1 02/03/2024 PROTIME 11.4 02/05/2024 PROTIME 11.8 02/04/2024 PROTIME 11.8 02/03/2024 PTT Lab Results Component Value Date APTT 31.0 (H) 02/05/2024 Cultures COVID19: No results found for: "COVID19" Legionella Ag: No components found for: "LEGIONELLAANTIGEN" Strep Ag: No components found for: "STREPNEUMAGU" Sputum Cx: No components found for: "RESPCULTURE" Gram Stain: Lab Results Component Value Date LABGRAM (A) 02/22/2024 Few Polymorphonuclear leukocytes per low power field LABGRAM Few Epithelial cells per low power field (A) 02/22/2024 LABGRAM Few Gram positive cocci (A) 02/22/2024 LABGRAM Rare Gram positive bacilli (A) 02/22/2024 LABGRAM Rare Gram negative bacilli (A) 02/22/2024 LABGRAM Rare Gram negative coccobacilli (A) 02/22/2024 PNA PCR: No components found for: "PNPCRPNL" Urine Cx: No components found for: "LABURIN" Blood Cx: No components found for: "BC" Radiology Previous imaging reviewed, no new images. Active Hospital Problem List @[id number]@ Assessment and Plan A Acute exacerbation of COPD Hemoptysis: likely bronchitis with blood tinged sputum Acute on chronic hypoxemic respiratory failure, improved to home 3lnc CAD/CABG 02/02/24 Hx of Afib s/p MAZE on DOAC P Patient with some improvement, on prednisone burst, lama/laba/ics with dulera and spiriva PNA PCR with serratia marcescens, sputum culture pending, abx changed to bactrim IV, hemoptysis stable, suspect secondary to infection, ok to continue DOAC Now on home oxygen, titrate oxygen to maintain sats 88 and above CTS service primary Continue doac and Plan to transition to po abx in the next 1-2 days pending sputum culture, in anticipation of dc to SNF. Would recommend completing a course for a minimum of 7 days. Advance Directive: Full Code Discharge planning: TBD Case discussed with nurse and patient/family. Questions and concerns addressed. Associated attestation - Aubrey Telles MD - 02/23/2024 7:14 PM EDT I have personally performed a [id number] diagnostic evaluation on this patient on date of service02/23/24. History, labs, imaging studies, and electronic medical record have been reviewed by me. This note documented by the [x]pet house sitter []TACO reflects my history, exam, and medical decision making. I have reviewed and agree with the care plan. Changes were made in the orders as necessary. ROS documentation was reviewed and negative unless otherwise stated in HPI. Additional pertinent interval history, ROS, and physical exam findings: Unlabored. Still with cough, though possibly better. Diminished air movement. Changed to IV bactrimthis AM. Possible transition to oral tomorrow. * Elma Eduardo, BUSINESS LINE CONTROLLER - 02/22/2024 11:59 AM EDT Images from the original note were not included. PHYSICAL THERAPY [facility] Treatment Note Name/MRN: Darin Breaux ([id number]) Date of : 1945 Age: 79 y.o. Room/Bed: 1C-131/1C-131 A Discharge Recommendation: [facility] Prior Level of Function ADL Assistance: Independent Ambulation Assistance: Independent Transfer Assistance: Independent Assessment Pt presents with the listed deficits and decreased functional mobility. Bed Mobility demo'd SUP with use of bed features. Transfers demo'd CGA. Ambulation demo'd with therapist for assistance at [place]. Pt limited by weakness and decreased balance as well as O2 needs. Increased time required to complete tasks. Maintains Sternal precautions throughout, as well as use of sternal pillow. PT goals progressing. Pt would benefit from continued skilled PT. Recommend SNF at discharge. Subjective Pt supine. Agreeable to therapy. Reports requiring use of toilet. Reviewed Sternal Precautions. Pt able to recall without cueing. RN cleared for PT. Pain: Denies pain, reports discomfort at chest incision site. Medical Precautions: No active isolations Proper PPE donned/doffed in accordance with facility standards. Fall Risk: Hutchison Fall Risk Score: 60 (High Risk) Precautions/Restrictions: Lines/Drains/Airways: PIV, telemetry, O2, BP Fall Precautions, Sternal precautions (only 2 weeks out from open heart surgery) Overall Cognitive Status: WFL Overall Orientation Status: Oriented to Person Family/Caregiver Present: none Objective Bed Mobility Supine to sit: Supervision Scooting: Supervision Increased time and effort required to complete. HOB elevated with no use of bed rails. Log Roll andMove in the Tube technique performed. No cues for sequencing and initiation required. Required no physical assist. Denies dizziness. Transfers/Mobility Sit to stand: Contact Guard Stand to sit: Contact Guard X 3 from EOB, x 1 from toilet. Demo'd good anterior wt shift and use of momentum with Sternal Pillow. Maintained precautions throughout. Demo'd proper hand and foot placement. Demo'd safety awarenessand maintains eccentric control when returning to seated surface. Cues for upright posture. No LOB or instability noted. Denies dizziness. Device(s) used: None Ambulation Ambulation 1 Assistive device(s) used: Used therapist for support Assist level: Min Assist Distance (ft): 12ft Quality of gait: No LOB, short reciprocal stepping, decreased B foot clearance, shuffling, uneven step length, narrow REZA, slow demetrio, postural sway, forward flexed posture Cues for upright posture. Occasional unsteadiness noted. Reports wanting to reach for furniture forincrease stability. No overt LOB. Cues for increased REZA and step height and length to normalize gait. Pt fatigues quickly, requiring seated rest break. Balance During Session: Posture: fair Sitting - Static: Modified Independent Sitting - Dynamic: Modified Independent Standing - Static: Contact Guard Standing - Dynamic: Min Assist Exercises Exercises Hip Flexion: BLE AROM x 10 reps, in sitting Knee Long Arc Quad: BLE AROM x 10 reps, in sitting Ankle Pumps: BLE AROM x 10 reps, in supine Comments: P&C ex's #1-9 verbally reviewed. Pt reports having just completed 10 reps of each Educated on LE Therapeutic Exercise to improve muscle strength and therefore improve ease with functional transfers. Instruction for proper technique and alignment. Cues for appropriate pace and focus oneccentric control. Educated on benefits of performing exercise throughout the day. Recommend 2-3 sets of 5-10 reps, 2x daily. Plan Continue acute PT per plan of care. Safety/Education Safety Safety Devices in place: All fall risk precautions in place, call light within reach, gait belt, patient at risk for falls, nurse notified, no alarms engaged upon entry, and left sitting on commode. Restraints: No Education Education Given To: patient Education Provided: PT Role, PT Goals, Gait Training, Plan of Care, Home Exercise Program, Precautions, Transfer Training, Energy Conservation, Equipment, Fall Prevention Education, Discharge Recommendations, Benefits of Increasing Activity, and Breathing Techniques Education Method: Verbal, Demonstration, and Teach Back Barriers to Learning: None Education Outcome: Verbalized Understanding, Demonstrated Understanding, and Continued Education Needed Outcome Measures AM-PAC AM-PAC Inpatient Mobility Raw Score (No Stairs) : 17 JH-HLM -HLM Score: Walked 10 steps or more (i.e. walked to restroom) Goals Patient Stated Goal: to go home Encounter Problems Encounter Problems (Active) Mobility Patient will ambulate 150 feet with modified independence and least restrictive device in order to improve safety and independence with mobility. (Progressing) Start: 02/18/24 Expected End: 03/17/24 Patient will ascend and descend 3 stairs with least restrictive device and modified independence inorder to safely negotiate home. (Not Addressed) Start: 02/18/24 Expected End: 03/17/24 Pain - Adult Transfers Patient will complete sit to stand transfer with independence to least restrictive device in order to improve safety and prepare for out of bed mobility. (Progressing) Start: 02/18/24 Expected End: 03/17/24 Therapy Time Individual Co-treatment Time In 1024 Time Out 1047 Minutes 23 Timed Code Treatment Minutes: 23 Minutes (FA, GT) BUSINESS LINE CONTROLLER wore PPE in compliance with hospital guidelines and regulation when treating this patient. Elma Eduardo, BUSINESS LINE CONTROLLER * 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, JOB ANALYSIS MANAGER - STRUCTURAL METAL FABRICATOR APPRENTICE - 02/22/2024 9:53 AM EDT Images from the original note were not included. Cardiothoracic Surgery Progress Note PATIENT NAME: Darin Breaux DATE: 02/22/24 HPI: 79 y.o. male who was direct admitted from [facility] due to increase in SOB and chest pain. CXR completed at [facility] showed bilateral pleural effusions left greater than right with bibasilar atelectasis and/or infiltrates more prominent at the left lung base. Patient is known to our practice. He recently underwent CABGx3, MAZE, LAAL with atriclip on 02/[address] Vargas. Post op course was uncomplicated and once medically optimized he was discharged home with family on POD#7. Perpatient after he got home he continue to decline from a respiratory standpoint. He noticed his workof breathing worsened and he could barely walk without getting short of breath. He does admit to some CP but relates that to his incision. He had his family take him to [facility] which led to his transfer to [facility]. Interval History: 02/22/24: VSS overnight, afebrile. Remains on baseline 3L NC. Today patient reports blood- tinged sputum. He notes he has had this in the past, but not recently until the last few days. Review of Systems Constitutional: Positive for activity change and fatigue. Negative for diaphoresis and fever. Respiratory: Positive for cough and shortness of breath. Negative for wheezing. Hemoptysis Cardiovascular: Negative for chest pain, palpitations and leg swelling. Gastrointestinal: Negative for abdominal distention, constipation and diarrhea. Skin: Negative for color change, pallor and rash. Objective: Last BM Date: 02/20/24 Vitals: BP: 110/54, MAP (mmHg): 73, BP Method: Automatic Heart Rate: 80 Resp: 16 Temp: (!) 35.3 C (95.5 F), Temp Source: Temporal BMI (Calculated): 19.18 BMP: Recent Labs 02/20/24203202/21/2414502/22/24 0017 NA 134* 136 136 K 4.6 4.4 4.3 CL 102 104 103 CO2 27 26 27 BUN 33* 34* 35* CREATININE 1.27* 1.19 1.12 CALCIUM 8.9 9.0 9.1 CBC: Recent Labs 02/20/24203202/21/2414502/22/24 0017 WBC 6.2 5.4 6.3 HGB 8.0* 8.4* 8.6* HCT 25.2* 27.0* 27.9* PLT 293 243 242 MCV 92.6 94.4 95.2 RDW 16.3* 15.9* 16.0* INR: No results for input(s): "INR" in the last 72 hours. Physical Exam Constitutional: Interventions: Nasal cannula in place. Cardiovascular: Rate and Rhythm: Normal rate and regular rhythm. Heart sounds: Normal heart sounds. Comments: PPM Pulmonary: Effort: Pulmonary effort is normal. Breath sounds: Wheezing and rhonchi present. Abdominal: General: Bowel sounds are normal. Palpations: Abdomen is soft. Tenderness: There is no abdominal tenderness. Musculoskeletal: Right lower leg: No edema. Left lower leg: No edema. Skin: General: Skin is warm and dry. Capillary Refill: Capillary refill takes less than 2 seconds. Findings: Bruising and ecchymosis present. Comments: Surgical Incisions: well approximate; clean dry with no drainage noted. Surrounding skin no redness, warmth, or signs of infection noted. Neurological: Mental Status: He is alert and oriented to person, place, and time. Psychiatric: Behavior: Behavior is cooperative. Assessment: SOB likely related to post op fluid overload/bilateral pleural effusions CAD s/p CABG (02/02/24) SSS, Afib s/p dual chamber [facility], on Eliquis s/p MAZE HTN HPL COPD/Emphysema (3L O2) Current tobacco use GERD AAA s/p Endovascular repair Hx PCI Plan: Patient status: tele Continue current med regimen: ASA, Statin Holding BB d/t hypotension Holding lasix- patient appears euvolemic Continue NOAC-AFib Continue Duoneb, Spiriva, Symbicort, Albuterol PRN Pulmonology/CCM reevaluated, appreciate recs treat for AE COPD with abx and steroids Send resp culture/pna PCR PT recommending SNF * Loretta Reyes - 02/22/2024 7:22 AM EDT .Nutrition update completed. Chart reviewed. Patient to be monitored and followed by the diet field support technician. Loretta Reyes DT * Oma Bone OT - 02/21/2024 11:30 AM EDT Images from the original note were not included. OCCUPATIONAL THERAPY [facility] Initial Evaluation Name/MRN: Darin Breaux ([id number]) Evaluation Date: 02/21/2024 Date of : 1945 Admission Date: 02/15/2024 7:39 PM Age: 79 y.o. Room/Bed: 1C-131/1C-131 A Discharge Recommendation: [facility] Facility Equipment Needed: (continue to assess) Assessment IMPRESSION: Patient is a 79-year-old male hospitalized s/p post-operative fluid overload/bilateral pleural effusions following CABG on 02/01. Patient is functionally independent with self-care tasks and functional mobility at baseline. Patient is limited by the deficits listed below. Patient is Super vision for UB ADLs, Contact Guard LB ADLs and Contact Guard toileting. Patient is Contact Guard bedmobility and Contact Guard for transfers/functional mobility. Recommending SNF upon discharge. Admitting Diagnosis: shortness of breathe Performance Deficits /Impairments: Increased Pain, Decreased Functional Mobility, Decreased ADL status, Decreased Strength, Decreased Safety Awareness, Decreased Endurance, and Decreased Balance Prognosis: Good Decision Making: Medium Complexity Subjective Patient supine in bed; patient agreeable to therapy evaluation. Pain: Pt denies any current pain. Past Medical History: Past Medical History: Diagnosis Date AAA (abdominal aortic aneurysm) ([facility]) Arthritis Atrial fibrillation (HCC) Carotid artery stenosis COPD (chronic obstructive pulmonary disease) (HCC) Coronary artery disease GERD (gastroesophageal reflux disease) Hyperlipidemia Hypertension Myocardial infarction ([facility]) Presence of permanent cardiac pacemaker Past Surgical History: Past Surgical History: Procedure Laterality Date ABDOMINAL AORTIC ANEURYSM REPAIR BACK SURGERY lumbar discectomy CARPAL TUNNEL RELEASE Right CATARACT EXTRACTION Bilateral COLONOSCOPY CORONARY ANGIOPLASTY WITH STENT PLACEMENT 1996 CORONARY STENT PLACEMENT HERNIA REPAIR Bilateral inguinal TRANSURETHRAL RESECTION OF PROSTATE US GUIDED CHEST TUBE PLACEMENT 02/18/2024 US GUIDED CHEST TUBE PLACEMENT 02/18/2024 Jarek Gustafson MD [facility] US IMAGING Admission Diagnosis: Patient Active Problem List Diagnosis Date Noted Shortness of breath 02/15/2024 Severe malnutrition (CMS/HCC) ([facility]) 02/03/2024 CAD in [place] artery 02/02/2024 Medical Precautions: No active isolations Proper PPE donned/doffed in accordance with facility standards. Fall Risk: Hutchison Fall Risk Score: 35 (Medium Risk) Precautions/Restrictions: Lines/Drains/Airways: PIV Family/Caregiver Present: none Overall Cognitive Status: WFL Overall Orientation Status: Oriented x4 Social/Functional History Patient admitted from home. Lives With: Family daughter in law Type of Home: single family home Home Layout: Two Level Home and Able to Live on Main Level Home Access: Stairs to Enter without Rails (# of stairs: 3) Bathroom Shower/Tub: Tub/Shower Combo Toilet: Standard Home Equipment: front wheeled walker and wheelchair - manual Homemaking Responsibilities: Needs Assist Receives Help From: Family Active Relocation Specialist: Yes Prior Level of Function ADL Assistance: Independent Ambulation Assistance: Independent Transfer Assistance: Independent Objective ADLs LE Dressing: Contact Guard, donning/doffing socks; patient requiring increased time for task completion and states, "I didn't know changing your socks could be so tiring". Upper Extremity Assessment AROM: WFL PROM: Not assessed this session Strength: WFL Vision: no visual deficits Hearing: normal Bed Mobility Supine to sit: Contact Guard Scooting: Contact Guard HOB elevated; cueing needed for not pushing through arms due to sternal precautions. Patient with FAIR+ sitting balance. Patient requiring seated rest break once sitting to catch breathe. Transfers/Functional Mobility Sit to stand: Contact Guard Stand to sit: Contact Guard Standing balance: Contact Guard Functional mobility: Contact Guard Patient CGA for sit-stand from EOB. Patient with good carryover of sternal precautions. Patient ambulated over to recliner without device and CGA. Patient with no overt LOB but considerably limited by SOB and decreased endurance. Device(s) used: None AM-PAC AM-PAC Inpatient Daily Activity Raw Score: 21 ADL Inpatient CMS G-Code Modifier: CJ Plan Pt would benefit from skilled acute OT services to address Strengthening, Gait Training, Balance Training, Self-Care/ADL Training, Functional Mobility Training, Endurance Training, and Safety Education and Training. Frequency: 5x/week for 4 weeks Barriers: Pain, Impaired balance, Lower extremity weakness, Upper extremity weakness, and Decreasedendurance Safety/Education Safety Safety Devices in place: All fall risk precautions in place, call light within reach, left in chair, and gait belt Restraints: No Education Education Given To: patient Education Provided: OT Role, Plan of Care, Precautions, and Discharge Recommendations Education Method: Verbal Barriers to Learning: None Education Outcome: Continued Education Needed Goals Patient Stated Goal: to get better Encounter Problems Encounter Problems (Active) Balance Patient will maintain dynamic standing balance for 3-5 minutes with modified independence in order to demonstrate decreased risk of falling. Start: 02/21/24 Expected End: 03/20/24 Bathing Patient will utilize adaptive techniques to bathe body SD. Start: 02/21/24 Expected End: 03/20/24 Dressing Upper Extremities Patient will complete upper body dressing SD. Start: 02/21/24 Expected End: 03/20/24 Dressings Lower Extremities Patient will dress lower body SD. Start: 02/21/24 Expected End: 03/20/24 Toileting Patient will complete toileting tasks at standard toilet with modified independence. Start: 02/21/24 Expected End: 03/20/24 Therapy Time Individual Co-treatment Time In 1120 Time Out 1130 Minutes 10 Oma Bone OT Patient's Occupational Therapy Plan of Care supervision is transferred to a [facility] Therapy Services Occupational Therapist. Goals and/or treatment plan was established in collaboration with patient/family/other representatives. * Mariely Vasquez, JOB ANALYSIS MANAGER - STRUCTURAL METAL FABRICATOR APPRENTICE - 02/21/2024 9:53 AM EDT Images from the original note were not included. Cardiothoracic Surgery Progress Note PATIENT NAME: Darin Breuax DATE: 02/21/24 HPI: 79 y.o. male who was direct admitted from [facility] due to increase in SOB and chest pain. CXR completed at [facility] showed bilateral pleural effusions left greater than right with bibasilar atelectasis and/or infiltrates more prominent at the left lung base. Patient is known to our practice. He recently underwent CABGx3, MAZE, LAAL with atriclip on 02/[address] Vargas. Post op course was uncomplicated and once medically optimized he was discharged home with family on POD#7. Perpatient after he got home he continue to decline from a respiratory standpoint. He noticed his workof breathing worsened and he could barely walk without getting short of breath. He does admit to some CP but relates that to his incision. He had his family take him to [facility] which led to his transfer to [facility]. Interval History: 02/21/24:VSS on 3LNC transfused 1 unit pRBC yesterday-hypotensive drop in hgb. CT with no air leak;0cc noted for 24hrs. Review of Systems Constitutional: Negative for diaphoresis, fatigue and fever. Respiratory: Positive for shortness of breath (improving). Negative for cough and wheezing. Cardiovascular: Negative for chest pain, palpitations and leg swelling. Gastrointestinal: Negative for abdominal distention, constipation and diarrhea. Skin: Negative for color change, pallor and rash. Objective: CT: 0/24hrs Last BM Date: 02/20/24 Vitals: BP: 138/76, MAP (mmHg): 79, BP Method: Automatic Heart Rate: 81 Resp: 18 Temp: 36.4 C (97.5 F), Temp Source: Temporal BMI (Calculated): 19.07 BMP: Recent Labs 02/20/2441102/20/24203202/21/24 0146 NA 132* 134* 136 K 4.4 4.6 4.4 CL 101 102 104 CO2 27 27 26 BUN 36* 33* 34* CREATININE 1.23 1.27* 1.19 CALCIUM 8.9 8.9 9.0 CBC: Recent Labs 02/20/2441102/20/24203202/21/24 0146 WBC 6.3 6.2 5.4 HGB 8.1* 8.0* 8.4* HCT 25.5* 25.2* 27.0* PLT 284 293 243 MCV 91.7 92.6 94.4 RDW 16.1* 16.3* 15.9* Physical Exam Cardiovascular: Rate and Rhythm: Normal rate and regular rhythm. Heart sounds: Normal heart sounds. No murmur heard. No friction rub. Comments: PPM Pulmonary: Effort: Pulmonary effort is normal. Skin: General: Skin is warm and dry. Capillary Refill: Capillary refill takes less than 2 seconds. Findings: Bruising and ecchymosis present. Neurological: Mental Status: He is alert. Psychiatric: Behavior: Behavior is cooperative. Assessment: SOB likely related to post op fluid overload/bilateral pleural effusions CAD s/p CABG (02/02/24) SSS, Afib s/p dual chamber [facility], on Eliquis s/p MAZE HTN HPL COPD/Emphysema (3L O2) Current tobacco use GERD AAA s/p Endovascular repair Hx PCI Plan: Patient Status: Telemetry Continue medications as ordered ASA, statin Holding BB Holding lasix Continue NOAC - Afib Chest tubes assessed: no air leak, subcutaneous air noted. Chest tubes removed without difficulty and dressing applied. Patient tolerated well. Patient and nurse educated on possible complications toobserve for. Will continue to monitor. Pulm followed signed off DuoNeb, Spiriva, Symbicort, Albuterol PRN PT recommending facility Pulmonary hygiene: IS and Acapella Wean O2 as able baseline 3LNC at home GI prophy: PO protonix DVT prophy:Patient on OAC/NOAC Disposition: Dispo planning - SNF planning for tomorrow; monitor H/H tomorrows lab Patient discussed and plan of day developed with Cardiothoracic Surgery Surgeon Associated attestation - Mike East MD - 02/21/2024 3:16 PM EDT DOS: 02-20 I personally performed a [id number]-[id number] diagnostic evaluation on this patient I agree with the findings and plan of care as documented by the TACO or resident. There has been no change in the physical exam or findings unless otherwise noted below. A total of 35 minutes were spent between the [id number]-eh-huym encounter, physical exam, reviewing the medical history, coordinating the patient's care, counseling/educating the patient, ordering medications/test/procedures, interpreting results and documenting clinical information in the patients electr on health record on the day of the encounter. The patient was seen and examined independently andrelevant data reviewed by myself. A full chart review was performed. Patient continues to respond to treatment. Hopefully, he will be prepared for discharge this upcoming week. A multidisciplinary approach has been conducted and pulmonology has been involved. * ROBIN Saez CNP - 02/20/2024 9:57 AM EDT Images from the original note were not included. Cardiothoracic Surgery Progress Note PATIENT NAME: Darin Breaux DATE: 02/20/24 HPI: 79 y.o. male who was direct admitted from [facility] due to increase in SOB and chest pain. CXR completed at [facility] showed bilateral pleural effusions left greater than right with bibasilar atelectasis and/or infiltrates more prominent at the left lung base. Patient is known to our practice. He recently underwent CABGx3, MAZE, LAAL with atriclip on 02/[address] Vargas. Post op course was uncomplicated and once medically optimized he was discharged home with family on POD#7. Perpatient after he got home he continue to decline from a respiratory standpoint. He noticed his workof breathing worsened and he could barely walk without getting short of breath. He does admit to some CP but relates that to his incision. He had his family take him to [facility] which led to his transfer to [facility]. Interval History: 02/20/24:VSS remains on 4LNC. Resting in bed. Stated he is still getting winded walking but also stated he has greatly improved from admission. Metoprolol held 2/3 last doses due to hypotension. Lasix also held yesterday and today. CT with no air leak; minimal out serous sang 60cc in 24 hours. No needs at this time. 02/16 - L thoracentesis 1L removed 02/17 -LCT placed by IR Review of Systems Constitutional: Negative for diaphoresis, fatigue and fever. Respiratory: Positive for shortness of breath (improving). Negative for cough and wheezing. Cardiovascular: Negative for chest pain, palpitations and leg swelling. Gastrointestinal: Negative for abdominal distention, constipation and diarrhea. Skin: Negative for color change, pallor and rash. Objective: CT: 1095/24hrs Last BM Date: 02/20/24 Vitals: BP: (!) 80/50, MAP (mmHg): 74, BP Method: Manual Heart Rate: 66 Resp: 19 Temp: 36.7 C (98.1 F), Temp Source: Temporal BMI (Calculated): 18.63 BMP: Recent Labs 02/18/24 01002/19/24 0141 02/20/24411 NA 134* 131* 132* K 4.1 4.1 4.4 CL 101 97* 101 CO2 28 28 27 BUN 34* 35* 36* CREATININE 1.16 1.20 1.23 CALCIUM 8.7 8.9 8.9 CBC: Recent Labs 02/18/24 01002/19/24 0141 02/20/24 0412 WBC 7.2 7.1 6.3 HGB 8.8* 8.9* 8.1* HCT 28.0* 27.7* 25.5* PLT 345 343 284 MCV 93.3 92.0 91.7 RDW 16.5* 16.4* 16.1* Physical Exam Cardiovascular: Rate and Rhythm: Normal rate and regular rhythm. Heart sounds: Normal heart sounds. No murmur heard. No friction rub. Comments: PPM Pulmonary: Effort: Pulmonary effort is normal. Skin: General: Skin is warm and dry. Capillary Refill: Capillary refill takes less than 2 seconds. Findings: Bruising and ecchymosis present. Neurological: Mental Status: He is alert. Psychiatric: Behavior: Behavior is cooperative. Assessment: SOB likely related to post op fluid overload/bilateral pleural effusions CAD s/p CABG (02/02/24) SSS, Afib s/p dual chamber [facility], on Eliquis s/p MAZE HTN HPL COPD/Emphysema (3L O2) Current tobacco use GERD AAA s/p Endovascular repair Hx PCI Plan: Patient Status: Telemetry Continue medications as ordered ASA, statin, BB, CCB Holding BB if BP meets parameters Holding lasix Continue NOAC - Afib CT to waterseal - maintain today; follow up CXR tomorrow - likely d/c tomorrow Pulm followed signed off DuoNeb, Spiriva, Symbicort, Albuterol PRN PT recommending facility Pulmonary hygiene: IS and Acapella Wean O2 as able baseline 3LNC at home GI prophy: PO protonix DVT prophy:Patient on OAC/NOAC Disposition: Dispo planning - hopefully CT out tomorrow; then placement at SNF early next week. Patient discussed and plan of day developed with Cardiothoracic Surgery Surgeon * Clau Ohara, BUSINESS LINE CONTROLLER - 02/19/2024 10:09 AM EDT Images from the original note were not included. PHYSICAL THERAPY [facility] Treatment Note Name/MRN: Darin Breaux ([id number]) Date of : 1945 Age: 79 y.o. Room/Bed: 1C-131/1C-131 A Discharge Recommendation: Halfway Facility Prior Level of Function ADL Assistance: Independent Ambulation Assistance: Independent Transfer Assistance: Independent Assessment Pt limited by fatigue and declined to ambulate this session but was willing to get to the chair anddo ex's. Min assist for transfer and for taking steps over to the recliner. Unsteady while standing. Currently recommend SNF level therapy at discharge. Subjective Pt supine in bed with HOB up. Pt on 3L O2 via NC. Agreeable to PT. Pain: Pt denies any current pain. Medical Precautions: No active isolations Proper PPE donned/doffed in accordance with facility standards. Fall Risk: Hutchison Fall Risk Score: 45 (High Risk) Precautions/Restrictions: Lines/Drains/Airways: oxygen, Spo2, telemetry, BP Fall Precautions, Sternal precautions (only 2 weeks out from open heart surgery) Overall Cognitive Status: WNL Overall Orientation Status: Oriented x4 Family/Caregiver Present: none Objective Bed Mobility Supine to sit: Supervision Scooting: Supervision HOB elevated. Transfers/Mobility Sit to stand: Min Assist Stand to sit: Min Assist Cues for sternal precautions Device(s) used: None Ambulation Ambulation 1 Assistive device(s) used: Used therapist for support Assist level: Min Assist Distance (ft): 3ft Quality of gait: B foot clearance, instability through all phases Exercises Exercises Hip Flexion: seated marching x 10 reps, BLE Knee Long Arc Quad: seated x 10 reps, BLE Ankle Pumps: seated x 10 reps, BLE Comments: P&C ex's #1-9 x 10 reps each Plan Continue acute PT per plan of care. Safety/Education Safety Safety Devices in place: All fall risk precautions in place, call light within reach, left in chair, gait belt, and no alarms engaged upon entry Restraints: No Education P&C ex's, Transfers, Bed mobility Outcome Measures AM-PAC AM-PAC Inpatient Mobility Raw Score (No Stairs) : 17 JH-HLM -HLM Score: Static standing (1 or more minutes) Goals Patient Stated Goal: to go home Encounter Problems Encounter Problems (Active) Mobility Patient will ambulate 150 feet with modified independence and least restrictive device in order to improve safety and independence with mobility. (Initiated) Start: 02/18/24 Expected End: 03/17/24 Patient will ascend and descend 3 stairs with least restrictive device and modified independence inorder to safely negotiate home. (Not Addressed) Start: 02/18/24 Expected End: 03/17/24 Pain - Adult Transfers Patient will complete sit to stand transfer with independence to least restrictive device in order to improve safety and prepare for out of bed mobility. (Progressing) Start: 02/18/24 Expected End: 03/17/24 Therapy Time Individual Co-treatment Time In 09 Time Out 1006 Minutes 24 Timed Code Treatment Minutes: 24 Minutes (FA, TP) Clau Ohara PTA * Mariely Vasquez, JOB ANALYSIS MANAGER - STRUCTURAL METAL FABRICATOR APPRENTICE - 02/19/2024 6:32 AM EDT Images from the original note were not included. Cardiothoracic Surgery Progress Note PATIENT NAME: Darin Breaux DATE: 02/19/24 HPI: 79 y.o. male who was direct admitted from [facility] due to increase in SOB and chest pain. CXR completed at [facility] showed bilateral pleural effusions left greater than right with bibasilar atelectasis and/or infiltrates more prominent at the left lung base. Patient is known to our practice. He recently underwent CABGx3, MAZE, LAAL with atriclip on 02/[address] Vargas. Post op course was uncomplicated and once medically optimized he was discharged home with family on POD#7. Perpatient after he got home he continue to decline from a respiratory standpoint. He noticed his workof breathing worsened and he could barely walk without getting short of breath. He does admit to some CP but relates that to his incision. He had his family take him to [facility] which led to his transfer to [facility]. Interval History: 02/19/24:VSS no acute issues noted overnight. Still remains on 4LNC. CT with large amount serous fluid - no air leak noted. Per patient he is breathing someone better. Not anxious to go get out of the hospital too soon. Discussed dispo - pt recommending SNF patient agreeable. 02/16 - L thoracentesis 1L removed 02/17 -LCT placed by IR Review of Systems Constitutional: Negative for diaphoresis, fatigue and fever. Respiratory: Positive for shortness of breath (improving). Negative for cough and wheezing. Cardiovascular: Negative for chest pain, palpitations and leg swelling. Gastrointestinal: Negative for abdominal distention, constipation and diarrhea. Skin: Negative for color change, pallor and rash. Objective: CT: 1095/24hrs Vitals: BP: 105/57, MAP (mmHg): 73, BP Method: Manual Heart Rate: 70 Resp: 18 Temp: 36.1 C (97 F), Temp Source: Temporal BMI (Calculated): 18.63 CXR: BMP: Recent Labs 02/17/2421902/18/2410502/19/24 014 NA 136 134* 131* K 4.1 4.1 4.1 CL 99 101 97* CO2 32* 28 28 BUN 29* 34* 35* CREATININE 1.38* 1.16 1.20 CALCIUM 9.0 8.7 8.9 CBC: Recent Labs 02/17/2421902/18/2410502/19/24 014 WBC 8.1 7.2 7.1 HGB 8.4* 8.8* 8.9* HCT 27.1* 28.0* 27.7* PLT 361 345 343 MCV 93.8 93.3 92.0 RDW 16.5* 16.5* 16.4* Physical Exam Cardiovascular: Rate and Rhythm: Normal rate and regular rhythm. Heart sounds: Normal heart sounds. No murmur heard. No friction rub. Comments: PPM Pulmonary: Effort: Pulmonary effort is normal. Skin: General: Skin is warm and dry. Capillary Refill: Capillary refill takes less than 2 seconds. Findings: Bruising and ecchymosis present. Neurological: Mental Status: He is alert. Psychiatric: Behavior: Behavior is cooperative. Assessment: SOB likely related to post op fluid overload/bilateral pleural effusions CAD s/p CABG (02/02/24) SSS, Afib s/p dual chamber [facility], on Eliquis s/p MAZE HTN HPL COPD/Emphysema (3L O2) Current tobacco use GERD AAA s/p Endovascular repair Hx PCI Plan: Patient Status: Telemetry Continue medications as ordered ASA, statin, BB, CCB Lasix daily - transition to PO today Continue NOAC - Afib CT to waterseal - maintain due to large output Pulm followed signed off DuoNeb, Spiriva, Symbicort, Albuterol PRN PT recommending facility Pulmonary hygiene: IS and Acapella Wean O2 as able baseline 3LNC at home GI prophy: PO protonix DVT prophy:Patient on OAC/NOAC Disposition: Dispo planning - continue to monitor output from CT - likely d/c to SNF - will discusswith TCC - patient agreeable Patient discussed and plan of day developed with Cardiothoracic Surgery Surgeon * Latanya Hutchins, PT - 02/18/2024 10:58 AM EDT Images from the original note were not included. PHYSICAL THERAPY [facility] Initial Evaluation Name/MRN: Darin Breaux ([id number]) Evaluation Date: 02/18/2024 Date of : 1945 Admission Date: 02/15/2024 7:39 PM Age: 79 y.o. Room[facility]Bed: [facility] A Discharge Recommendation: Halfway Facility Assessment IMPRESSION: Pt admitted from [facility] for SOB and chest pain. Pt recent admit with CABG x3 02/01. Pt found to have bilateral PE and atelectasias at [facility]. S/p thoracentesis 02/16. Pt's BP has been lowso orthostatics were obtained at start of evaluation. Supine 88/55 Sitting 93/59 and standing 121/53. Pt requires min A for transfers and CGA for ambulation with FWW. Pt reports feeling short of breathe with exertion. Pt is currently functioning below baseline with the documented impairments. Pt would benefit from SNF rehab at this time but may work up to home going. Admitting Diagnosis: SOB Prognosis: good Performance Deficits /Impairments: Decreased Strength, Decreased Safety Awareness, and Decreased Endurance Decision Making: Low Complexity Subjective Pleasant and agreeable. Pain: 0-10 pain scale: 5/10 Location: right clavicle Past Medical History: Past Medical History: Diagnosis Date AAA (abdominal aortic aneurysm) (HCC) Arthritis Atrial fibrillation (HCC) Carotid artery stenosis COPD (chronic obstructive pulmonary disease) (HCC) Coronary artery disease GERD (gastroesophageal reflux disease) Hyperlipidemia Hypertension Myocardial infarction (HCC) Presence of permanent cardiac pacemaker Past Surgical History: Past Surgical History: Procedure Laterality Date ABDOMINAL AORTIC ANEURYSM REPAIR BACK SURGERY lumbar discectomy CARPAL TUNNEL RELEASE Right CATARACT EXTRACTION Bilateral COLONOSCOPY CORONARY ANGIOPLASTY WITH STENT PLACEMENT 1996 CORONARY STENT PLACEMENT HERNIA REPAIR Bilateral inguinal TRANSURETHRAL RESECTION OF PROSTATE Admission Diagnosis: Patient Active Problem List Diagnosis Date Noted Shortness of breath 02/15/2024 Severe malnutrition (CMS/HCC) (HCC) 02/03/2024 CAD in [place] artery 02/02/2024 Medical Precautions: No active isolations Proper PPE donned/doffed in accordance with facility standards. Fall Risk: Hutchison Fall Risk Score: 60 (High Risk) Precautions/Restrictions: Lines/Drains/Airways: oxygen, Spo2, telemetry, BP Fall Precautions Family/Caregiver Present: none Overall Cognitive Status: WNL Overall Orientation Status: Oriented x4 Vision: wears glasses for reading and and are NOT being used during the eval Hearing: normal Social/Functional History Patient admitted from home. Lives With: Family daughter in law Type of Home: single family home Home Layout: Two Level Home and Able to Live on Main Level Home Access: Stairs to Enter without Rails (# of stairs: 3) Bathroom Shower/Tub: Tub/Shower Combo Toilet: Standard Home Equipment: front wheeled walker and wheelchair - manual Homemaking Responsibilities: Needs Assist Receives Help From: Family Active Relocation Specialist: Yes Prior Level of Function ADL Assistance: Independent Ambulation Assistance: Independent Transfer Assistance: Independent Objective Lower Extremity Assessment AROM: WFL Strength: Exceptions: BLE grossly 3+/5 seen through functional mobility. Balance: Balance During Session: Posture: fair Sitting - Static: Independent Sitting - Dynamic: Modified Independent Standing - Static: Contact Guard Standing - Dynamic: Contact Guard Sensation: Not assessed this session Bed Mobility: Supine to sit: SBA Transfers Sit to stand: Min Assist Stand to sit: Min Assist VC for hand placement and safe use of walker Ambulation Ambulation 1 Assistive device(s) used: Front wheeled walker Assist level: Contact Guard Distance (ft): 30 Quality of gait: narrow REZA, slow demetrio, postural sway Outcome Measures AM-PAC How much HELP from another person do you currently need Turning from your back to your side while in a flat bed without using bedrails?: None Moving from lying on your back to sitting on the side of a flat bed without using bedrails?: None Moving to and from a bed to a chair (including a wheelchair)?: A Little Standing up from a chair using your arms (wheelchair or bedside chair)?: A Little Walking in a hospital room?: None Stair climbing assessed?: No AM-PAC Inpatient Mobility Raw Score (No Stairs) : 18 JH-HLM JH-HLM Score: Walked 25 ft or more (i.e. walked outside of room) Plan Pt would benefit from skilled acute PT services to address Strengthening, ROM, Gait Training, Balance Training, Self-Care/ADL Training, Functional Mobility Training, Endurance Training, Safety Education and Training, Stair Training, and Pain Management. Frequency: 3x/week for 4 weeks Barriers: Decreased endurance Safety/Education Safety Safety Devices in place: call light within reach, left in chair, and nurse notified Restraints: N/A Education Education Given To: patient Education Provided: PT Role, PT Goals, Plan of Care, Fall Prevention Education, Discharge Recommendations, and Benefits of Increasing Activity Education Method: Verbal Barriers to Learning: None Education Outcome: Verbalized Understanding Goals Patient Stated Goal: to go home Encounter Problems Encounter Problems (Active) Mobility Patient will ambulate 150 feet with modified independence and least restrictive device in order to improve safety and independence with mobility. Start: 02/18/24 Expected End: 03/17/24 Patient will ascend and descend 3 stairs with least restrictive device and modified independence inorder to safely negotiate home. Start: 02/18/24 Expected End: 03/17/24 Pain - Adult Transfers Patient will complete sit to stand transfer with independence to least restrictive device in order to improve safety and prepare for out of bed mobility. Start: 02/18/24 Expected End: 03/17/24 Therapy Time Individual Co-treatment Time In 1016 Time Out 1036 Minutes 20 Latanya Hutchins PT Patient's Physical Therapy Plan of Care supervision is transferred to a [facility] Therapy Services Physical Therapist. Goals and/or treatment plan was established in collaboration with patient/family/other representatives. * Diandra Khan MD - 02/18/2024 8:36 AM EDT PULMONOLOGY CONSULT PROGRESS NOTE 02/18/2024 Hospital LOS: LOS: 2 days Subjective/Interval History: Patient was seen and examined at bedside not in acute distress. A pertinent review of systems was performed and was otherwise non-contributory except as detailed in Subjective section above. Assessment and Plan: Darin Breaux is a 79 year old make admitted from [facility] due to increase in shortness of breath and chest pain from B/L pleural effusion. Acute hypoxic respiratory failure 2/2 bilateral pleural effusion s/p CABG History of severe obstruction/COPD. ABG showed CO2 42. Not retaining CO2. Bilateral pleural effusion s/p CABG x 3, maze, LAAL with artclip on 02/01. Patient received 1 dose of Lasix today. CAD s/p CABG x 3 on 02/01. Atrial fibrillation on Eliquis. Hypertension Hyperlipidemia GERD Current tobacco user S/p thoracentesis on the left side. Removed 1 L hemorrhagic fluid yesterday. May need additional tap. CT surgery on board, plan for IR placed pigtail CT on the left for residual pleural effusion. Chesttube management per CT surgery. Currently on 4 L oxygen, wean oxygen with goal SpO2 of >90%. Home baseline 3 L oxygen. Resumed home DuoNeb, Spiriva and Symbicort. Albuterol inhaler as necessary. No significant wheezing present, less likely COPD exacerbation. CT surgery on board for post CABG management. Advised to follow with his wood window and door craftsman Dr Madison after discharge. Pulmonary team will sign off. Portions of the information within this encounter were entered using an electronic dictation system. Best attempts were made to edit/proofread the information prior to note completion. Despite the review of information, some errors may remain. If there are questions related to the information contained within the note please contact the signing physician directly. Vitals- BP 92/56 Pulse 77 Temp (!) 35.9 C (96.6 F) (Temporal) Resp 18 Wt 67 kg (147 lb 9.6 oz) SpO2 97% BMI 18.95 kg/m Tmax: Temp (24hrs), Av.1 C (96.9 F), Min:35.8 C (96.4 F), Max:36.3 C (97.4 F) Hemodynamics: Cuff: Systolic (24hrs), Av , Min:82 , Max:121 /Diastolic (24hrs), Av, Min:44, Max:71 Cuff MAP:MAP (mmHg) Av.3 Min: 57 Max: 107 P: Pulse Av.8 Min: 56 Max: 85 Observed RR: Resp Av.5 Min: 7 Max: 28 Observed O2 sats: SpO2 Av.3 % Min: 84 % Max: 100 % Intake/Output Summary (Last 24 hours) at 02/18/2024 1340 Last data filed at 02/18/2024 0706 Gross per 24 hour Intake 750 ml Output 200 ml Net 550 ml Physical exam- Physical Exam Constitutional: General: He is not in acute distress. HENT: Mouth/Throat: Mouth: Mucous membranes are moist. Eyes: Pupils: Pupils are equal, round, and reactive to light. Cardiovascular: Rate and Rhythm: Normal rate and regular rhythm. Pulses: Normal pulses. Heart sounds: Normal heart sounds. Pulmonary: Effort: Pulmonary effort is normal. No respiratory distress. Breath sounds: No stridor. No wheezing, rhonchi or rales. Comments: Diminished B/L breath sound Abdominal: General: Abdomen is flat. Palpations: Abdomen is soft. Musculoskeletal: General: Normal range of motion. Skin: General: Skin is warm. Capillary Refill: Capillary refill takes less than 2 seconds. Neurological: Mental Status: He is alert and oriented to person, place, and time. Data: [facility] within last 24 hours- BMP: Recent Labs 02/16/24302/17/2421902/18/24105 NA 136 136 134* K 3.8 4.1 4.1 CL 105 99 101 CO2 27 32* 28 BUN 28* 29* 34* CREATININE 1.04 1.38* 1.16 CALCIUM 8.7 9.0 8.7 LFTs: Recent Labs 02/16/24302/17/24 0628 AST 27 -- ALT 33 -- PROT 5.3* -- ALBUMIN 2.8* -- BILITOT 0.3 -- BILIRUBINU -- Negative ALKPHOS 60 -- Glucose: Recent Labs 02/16/24302/17/2421902/18/24 010 GLUCOSE 98 103* 93 Procal: No results for input(s): "PROCAL" in the last 72 hours. CBC: Recent Labs 07/30/24 0004 07/31/24 0220 08/01/24 0106 WBC 7.1 8.1 7.2 HGB 7.8* 8.4* 8.8* HCT 25.8* 27.1* 28.0* PLT 317 361 345 MCV 97.7 93.8 93.3 RDW 16.4* 16.5* 16.5* ABGs: No results for input(s): "PHART", "DNE1WEJ", "PO2ART", "BXM1YGQ", "SO2ART", "E4UXSLIQ" in thelast 72 hours. Lactic Acid: No results for input(s): "LACTATE" in the last 72 hours. INR: No results for input(s): "INR" in the last 72 hours. Cardiac Injury Profile: No results for input(s): "CKTOTAL", "CKMB", "TROPONINI" in the last 72 hours. Labs in Last 3 months: Lab Results Component Value Date TSH 10.053 (H) 02/09/2024 INR 1.0 02/05/2024 Microbiology- Urine Cx: Lab Results Component Value Date URINECX Normal urogenital severiano present 01/26/2024 URINECX 10,000-50,000 CFU/mL Aerococcus urinae (A) 01/26/2024 Blood Cx: No results found for: "BLOODCX" Sputum Cx: No results found for: "RESPCULT" Gram Stain: No results found for: "LABGRAM" PNA PCR: No results found for: "HUMANMETAPNE" COVID19: No results found for: "COVID19" Legionella Ag: No results found for: "LEGIONELLAPN" Strep Ag: No results for input(s): "STREPPNEUMO" in the last 72 hours. Imaging- CXR portable: Results for orders placed during the hospital encounter of 02/15/24 XR chest 1 view Narrative Patient Name: DARIN BREAUX : 1945 Exam Date/Time: 02/18/2024 06:44 Procedure: XR CHEST 1 VIEW Ordering Provider: PATRICIA JENNIFER Reason For Exam: DYSPNEA CHEST - PORTABLE: CLINICAL INDICATION: Respiratory distress for follow up. Dyspnea. TECHNIQUE: Portable AP COMPARISON: One day ago. Impression FINDINGS/IMPRESSION: Limitations: Patient positioning/rotation Lines, tubes, and devices: Multilead left-sided pacemaker device unchanged. Cardiomediastinal silhouette: Unchanged appearance to median sternotomy wires Lungs/Pleura: Small layering left greater than right pleural effusions with persistent bibasilar airspace disease, likely somewhat improved on the left and fairly similar in the right. Pulmonary vascular congestion is similar. No pneumothorax. Osseous structures: Unchanged in appearance. Soft tissues: No soft tissue abnormality is detected. Report Dictated on Electronically Signed By: Emmanuel Maldonado MD Electronically Signed Date/Time: 02/18/2024 8:17 AM EDT CXR (2V): Results for orders placed in visit on 01/26/24 XR chest 2 views Narrative [facility] Name[facility] 1945 [id number] Exam Date/Time: 01/26/2024 15:15 Procedure: XR CHEST 2 VIEWS Ordering Provider: VERNON BRANDY Reason For Exam: PREOPERATIVE ANESTHESIA CLINICAL INFORMATION: Preoperative study. PA and lateral views of the chest are provided without comparison. 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 The cardiac silhouette and mediastinum are otherwise within normal limits. The lungs are hyperexpanded but free of infiltrate or pleural effusion. The visualized bones and soft tissues are grossly unremarkable. Impression 1. Left chest wall pacer. 2. COPD. 3. No focal infiltrates. Report Dictated on Electronically Signed By: Micah Garcia MD Electronically Signed Date/Time: 01/29/2024 1:[address] Chest: No results found for this or any previous visit. CTA Chest: No results found for this or any previous visit. Other Studies: Reviewed and as per electronic record. CxR/CT images personally reviewed by me when available; salient findings summarized in A/P. Current Facility-Administered Medications: acetaminophen (Tylenol) tablet 1,000 mg, 1,000 mg, Oral, q8h PRN, 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 APRN - STRUCTURAL METAL FABRICATOR APPRENTICE,1,000 mg at 02/15/242025 albuterol 108 (90 Base) MCG/ACT inhaler 2 puff, 2 puff, Inhalation, q6h PRN, ROBIN Evans CNP [Held by provider] amLODIPine (Norvasc) tablet 5 mg, 5 mg, Oral, Daily, 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 APRN - STRUCTURAL METAL FABRICATOR APPRENTICE, 5 mg at 02/16/24 1019 [Held by provider] apixaban (Eliquis) tablet 5 mg, 5 mg, Oral, BID, 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 APRN - STRUCTURAL METAL FABRICATOR APPRENTICE, 5 mg at 02/17/248 aspirin EC tablet 81 mg, 81 mg, Oral, Daily, 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 APRN - R[place], 81 mg at 02/18/24 0839 atorvastatin (Lipitor) tablet 80 mg, 80 mg, Oral, Daily, 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 APRN - STRUCTURAL METAL FABRICATOR APPRENTICE, 80 mg at02/18/24 0839 furosemide (Lasix) injection 40 mg, 40 mg, IntraVENous, Daily, 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 APRN - STRUCTURAL METAL FABRICATOR APPRENTICE, 40mg at 02/18/24 0839 ipratropium-albuterol (Duo-Neb) 0.5-2.5 mg/3 mL nebulizer solution 3 mL, 3 mL, Nebulization, TID, 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 APRN - RENET[place], 3 mL at 02/18/24 1251 metoprolol tartrate (Lopressor) tablet 25 mg, 25 mg, Oral, BID, 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 APRN - [place], 25 mg at 02/18/24 0913 mometasone-formoterol (Dulera 100) 100-5 MCG/ACT inhaler 2 puff, 2 puff, Inhalation, BID, 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 APRN - STRUCTURAL METAL FABRICATOR APPRENTICE, 2 puff at 02/18/24 0840 naloxone (Narcan) injection 0.4 mg, 0.4 mg, IntraVENous, q5 min PRN, Mike East MD ondansetron ODT (Zofran-ODT) disintegrating tablet 4 mg, 4 mg, Oral, q8h PRN OR ondansetron (Zofran) injection 4 mg, 4 mg, IntraVENous, q6h PRN, 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 APRN - R[place] oxyCODONE (Roxicodone) immediate release tablet 5 mg, 5 mg, Oral, q6h PRN, 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 APRN - R[place] pantoprazole (ProtoNix) EC tablet 20 mg, 20 mg, Oral, qAM AC, 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 APRN - [place], 20 mg at 02/18/24 0618 polyethylene glycol (PEG) 3350 (Miralax) packet 17 g, 17 g, Oral, Daily PRN, 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 APRN - REN[place] sodium chloride 0.9 % infusion, 5-250 mL/hr, IntraVENous, PRN, 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 APRN - REN[place] sodium chloride 0.9% (NS) flush 5-40 mL, 5-40 mL, IntraVENous, q12h, 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 APRN - [place], 10 mL at 02/18/24 0840 sodium chloride 0.9% (NS) flush 5-40 mL, 5-40 mL, IntraVENous, PRN, 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 APRN - REN[place] tiotropium (Spiriva Respimat) 2.5 MCG/ACT inhaler 2 puff, 2 puff, Inhalation, Daily, ROBIN Evans CNP, 2 puff at 02/18/24 0900 Allergies Allergies Allergen Reactions Penicillins Hives Plavix [Clopidogrel] Hives Tamsulosin Other Blacked out Diandra Khan MD PGY- 4 Pulmonary and Critical Care Medicine Associated attestation - Kavon Engle MD - 02/18/2024 1:45 PM EDT I saw and evaluated the patient, participating in the borrego portions of the service. I reviewed the resident s note. I agree with the resident s findings and plan. Severe copd not in acute exacerbation- on triple inhalers. No need for steroids/ abx. BL pleural effusions- management as per CTS Chronic respiratory failure on home oxygen- stable on 4 lpm Rest of care as per fellow note. Nothing else to optimize, will defer to CTS but complete drainage of effusions advised. Call with any questions. Kavon Engle MD * 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, JOB ANALYSIS MANAGER - STRUCTURAL METAL FABRICATOR APPRENTICE - 02/18/2024 7:02 AM EDT Images from the original note were not included. Cardiothoracic Surgery Progress Note PATIENT NAME: Darin Breaux DATE: 02/18/24 HPI: 79 y.o. male who was direct admitted from [facility] due to increase in SOB and chest pain. CXR completed at [place] showed bilateral pleural effusions left greater than right with bibasilar atelectasis and/or infiltrates more prominent at the left lung base. Patient is known to our practice. He recently underwent CABGx3, MAZE, LAAL with atriclip on 02/[address] Vargas. Post op course was uncomplicated and once medically optimized he was discharged home with family on POD#7. Perpatient after he got home he continue to decline from a respiratory standpoint. He noticed his workof breathing worsened and he could barely walk without getting short of breath. He does admit to some CP but relates that to his incision. He had his family take him to [facility] which led to his transfer to [facility]. A complete ROS is documented below. Interval History: 02/18/24: Had some hypotension yesterday and overnight. Afebrile, Vpaced rhythm on tele. On 3-4L NC, baseline 3L NC at home. Had thoracentesis yesterday with 1L removed. Cr improved 1.16 (1.38) Review of Systems Constitutional: Positive for activity change and fatigue. Negative for diaphoresis and fever. Respiratory: Positive for shortness of breath. Negative for cough and wheezing. Cardiovascular: Negative for chest pain, palpitations and leg swelling. Gastrointestinal: Negative for abdominal distention, abdominal pain, nausea and vomiting. Skin: Negative for color change, pallor and rash. Objective: Vitals: BP: 118/68, MAP (mmHg): 73, BP Method: Manual Heart Rate: 73 Resp: 13 Temp: 36.2 C (97.1 F), Temp Source: Temporal BMI (Calculated): 20.23 CXR: BMP: Recent Labs 02/16/24 0004 02/17/24 0220 02/18/24 0106 NA 136 136 134* K 3.8 4.1 4.1 CL 105 99 101 CO2 27 32* 28 BUN 28* 29* 34* CREATININE 1.04 1.38* 1.16 CALCIUM 8.7 9.0 8.7 CBC: Recent Labs 02/16/24 0004 02/17/24 0220 02/18/24 0106 WBC 7.1 8.1 7.2 HGB 7.8* 8.4* 8.8* HCT 25.8* 27.1* 28.0* PLT 317 361 345 MCV 97.7 93.8 93.3 RDW 16.4* 16.5* 16.5* INR: No results for input(s): "INR" in the last 72 hours. Physical Exam Constitutional: Comments: 4L NC Cardiovascular: Rate and Rhythm: Normal rate. Heart sounds: Normal heart sounds. Comments: PPM noted - paced rhythm Pulmonary: Effort: Pulmonary effort is normal. Breath sounds: Decreased breath sounds present. Abdominal: General: Bowel sounds are normal. Palpations: Abdomen is soft. Tenderness: There is no abdominal tenderness. Musculoskeletal: Right lower leg: No edema. Left lower leg: No edema. Skin: General: Skin is warm and dry. Findings: Bruising and ecchymosis present. Comments: Surgical Incisions: well approximate; clean dry with no drainage noted. Surrounding skin no redness, warmth, or signs of infection noted. Neurological: Mental Status: He is alert and oriented to person, place, and time. Assessment: SOB likely related to post op fluid overload/bilateral pleural effusions- Pleural Effusion is an expected occurrence following this surgery and is not a complication of the surgery CAD s/p CABG (02/02/24) SSS, Afib s/p dual chamber [facility], on Eliquis s/p MAZE HTN HPL COPD/Emphysema (3L O2) Current tobacco use GERD AAA s/p Endovascular repair Hx PCI Post operative Pulm Management: Normal Post-operative Course Acute blood loss anemia/consumptive coagulopathy Plan: Continue medications as ordered - ASA, statin - Hold Amlodipine - Decrease BB- Metoprolol 25mg BID - Eliquis for AFib - held today - Continue Lasix 40mg IVP daily Will place order for IR placed pigtail CT on Left for residual pleural effusion Pulmonology following, appreciate recs - Continue home med regimen: DuoNeb, Spiriva, Symbicort, Albuterol PRN - Suspect dyspnea r/t pleural effusions, COPD exacerbation less likely - Defer steroids/abx at this time Consult PT/OT - pending eval * ROBIN Evans CNP - 02/17/2024 9:29 AM EDT Images from the original note were not included. Cardiothoracic Surgery Progress Note PATIENT NAME: Darin Breaux DATE: 02/17/24 HPI: 79 y.o. male who was direct admitted from [facility] due to increase in SOB and chest pain. CXR completed at [place] showed bilateral pleural effusions left greater than right with bibasilar atelectasis and/or infiltrates more prominent at the left lung base. Patient is known to our practice. He recently underwent CABGx3, MAZE, LAAL with atriclip on 02/[address] Vargas. Post op course was uncomplicated and once medically optimized he was discharged home with family on POD#7. Perpatient after he got home he continue to decline from a respiratory standpoint. He noticed his workof breathing worsened and he could barely walk without getting short of breath. He does admit to some CP but relates that to his incision. He had his family take him to [facility] which led to his transfer to [facility]. A complete ROS is documented below. Interval History: 02/17/24: VSS, afebrile, on 4L NC. Reports he continues to have SOB, is able to cough up some sputum. Cr increased yesterday from 1.04->1.38. Diuresed well with 3.8 L output. Review of Systems Constitutional: Positive for activity change and fatigue. Negative for diaphoresis and fever. Respiratory: Positive for shortness of breath. Negative for cough and wheezing. Cardiovascular: Negative for chest pain, palpitations and leg swelling. Gastrointestinal: Negative for abdominal distention, abdominal pain, nausea and vomiting. Skin: Negative for color change, pallor and rash. Objective: UO cc/24hrs: 3,850 mL Vitals: BP: 93/53, MAP (mmHg): 66, Heart Rate: 73 Resp: 18 Temp: 36.4 C (97.6 F), Temp Source: Temporal BMI (Calculated): 20.23 CXR: BMP: Recent Labs 02/16/24 0004 02/17/24 0220 NA 136 136 K 3.8 4.1 CL 105 99 CO2 27 32* BUN 28* 29* CREATININE 1.04 1.38* CALCIUM 8.7 9.0 CBC: Recent Labs 02/16/24 0004 02/17/24 0220 WBC 7.1 8.1 HGB 7.8* 8.4* HCT 25.8* 27.1* PLT 317 361 MCV 97.7 93.8 RDW 16.4* 16.5* INR: No results for input(s): "INR" in the last 72 hours. Physical Exam Constitutional: Comments: 4L NC Cardiovascular: Rate and Rhythm: Normal rate. Heart sounds: Normal heart sounds. Comments: PPM noted - paced rhythm Pulmonary: Effort: Pulmonary effort is normal. Breath sounds: Decreased breath sounds present. Abdominal: General: Bowel sounds are normal. Palpations: Abdomen is soft. Tenderness: There is no abdominal tenderness. Musculoskeletal: Right lower leg: No edema. Left lower leg: No edema. Skin: General: Skin is warm and dry. Findings: Bruising and ecchymosis present. Comments: Surgical Incisions: well approximate; clean dry with no drainage noted. Surrounding skin no redness, warmth, or signs of infection noted. Neurological: Mental Status: He is alert and oriented to person, place, and time. Assessment: SOB likely related to post op fluid overload/bilateral pleural effusions CAD s/p CABG (02/02/24) SSS, Afib s/p dual chamber [facility], on Eliquis s/p MAZE HTN HPL COPD/Emphysema (3L O2) Current tobacco use GERD AAA s/p Endovascular repair Hx PCI Post operative Pulm Management: Normal Post-operative Course Acute blood loss anemia/consumptive coagulopathy Plan: Continue medications as ordered ASA, CCB, statin, BB Resume Eliquis after thoracentesis Decrease Lasix to daily given rise in Cr US guided thoracentesis ordered Will place consult to Pulmonology to assist with COPD management and recs for SOB Patient is afebrile, no leukocytosis. Will hold off on Abx therapy. Consult PT/OT for eval * Loretta Reyes - 02/17/2024 7:41 AM EDT .Nutrition rescreen completed. Chart reviewed. Patient to be monitored and followed by the diet field support technician. REBECA Morales documented in this [facility]08-08-2024 Nurse Note* Mely Bronson LPN - 02/25/2024 1:36 PM EDT Report called to [facility] [id number] Note* Care Coordination - Malaika Salvador - 02/25/2024 11:15 AM EDT LACEY contacted daughter-in law to inform her Darin is being discharged today at 2pm, to [facility]. Daughter-in law explained Darin needs an oxygen portable portable tank: she explained [facility] will not supply a portable tank , due to patients contract ending soon. She explained she contacted the insurance and was approved,however she would like to switch companies. SW worker encouragedher to call around to different suppliers so when Darin's contact is up with [facility], he will have other options. Daughter- in law explained Darin will need a hospital to rent once he returns home. LACEY explained once Darin is ready for discharged from [facility], the elementary school social worker att facility will assist with durable medical equipment and oxygen. [facility] [id number] Note* Care Coordination - Malaika Salvador - 02/25/2024 11:15 AM EDT LACEY contacted daughter-in law to inform her Darin is being discharged today at 2pm, to [facility]. Daughter-in law explained Darin needs an oxygen portable portable tank: she explained [facility] will not supply a portable tank , due to patients contract ending soon. She explained she contacted the insurance and was approved,however she would like to switch companies. SW worker encouragedher to call around to different suppliers so when Darin's contact is up with [facility], he will have other options. Daughter- in law explained Darin will need a hospital to rent once he returns home. LAECY explained once Darin is ready for discharged from [facility], the elementary school social worker atthe facility will assist with durable medical equipment and oxygen. [facility] [id number] Miscellaneous Notes* Care Coordination - Malaika Salvador - 02/25/2024 11:15 AM EDT LAECY contacted daughter-in law to inform her Darin is being discharged today at 2pm, to [facility]. Daughter-in law explained Darin needs an oxygen portable portable tank: she explained [employer] will not supply a portable tank , due to patients contract ending soon. She explained she contacted the insurance and was approved,however she would like to switch companies. LACEY worker encouraged to call around to different suppliers so when Darin's contact is up with [facility], he will have other options. Daughter- in law explained Darin will need a hospital to rent once he returns home. LACEY explained once Darin is ready for discharged from [facility], the elementary school social worker atthe facility will assist with durable medical equipment and oxygen. * Care Coordination - Unknown Case Management - 02/25/2024 11:15 AM EDT Patient Choice Patient Name: DARIN BREAUX Date of : 1945 All Providers Sent Referral Name: [facility] Phone: [phone] Address: [address] [phone] Name: [facility] Address: [address] [id number] Name: [facility] Address: [facility] [place] [address] * Care Coordination - ANGEL Weldon - 02/25/2024 11:10 AM EDT [facility] Mejia Ramirez claimed trip. Notified TCC, bedside nurse, community relations director and facility. * Care Coordination - Aimee Morrell - 02/25/2024 9:59 AM EDT Discharge med list, MAR and updated notes transmitted to SN[facility] request. * Care Coordination - Anju Carney RN - 02/25/2024 8:57 AM EDT Images from the original note were not included. Update- pt now has dc orders. IRA completed. Social work setting up transport apx 1300 today with 02. CONSUMER SERVICES CONSULTANT sending clinical to facility and completing 7000 form. Care Management Progress Note Pt auth approved for [facility]- auth Id: [id number] Reference Id: [id number] Dates Approved: 02/24/2024-02/26/2024 Next Review Date: 02/26/2024. Alerted this facility as talked with MANUFACTURING SHIFT SUPERVISOR Wesley Malloy who will work on dc today. Messaged RN and elementary school social worker to alert of plan and for elementary school social worker to set up transport today 1pm per request of MANUFACTURING SHIFT SUPERVISOR but not prior to 12noon. IRA completed and [facility] tasked to send clinical dc paperwork. Discharge Milestones and Delays Expected date/time: 02/25/2024 Expected discharge disposition: [facility] Dis[facility] Milestones [facility] discharge order Complete med reconciliation Case mgmt discharge readiness Clinical Stability Diagnostic Workup Facility Choice Selection Imaging Results Patient Education Complete Expected Discharge History Expected Date/Time Set By Reviewed At 02/25/2024 Anju Carney RN 02/25/2024 8:18 AM auth approved 02/25/2024 Anju Carney RN 02/24/2024 11:37 AM auth pending 02/25/2024 Anju Carney RN 02/23/2024 2:36 PM 02/23/2024 Twyla Monique, STANISLAW 02/22/2024 2:53 PM 02/22/2024 Hermann Lazo, STANISLAW 02/19/2024 7:08 AM 02/19/2024 Olamide Tanner, STANISLAW 02/17/2024 10:48 AM 02/18/2024 Mariely Vasquez, JOB ANALYSIS MANAGER - STRUCTURAL METAL FABRICATOR APPRENTICE 02/16/2024 1:40 PM 02/17/2024 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, JOB ANALYSIS MANAGER - STRUCTURAL METAL FABRICATOR APPRENTICE 02/15/2024 3:07 PM Length of Stay (Days): 9 GMLOS: 4.4 * Care Plan - Carly Mejia RN - 02/24/2024 7:54 PM EDT Problem: Pain - Adult Goal: Verbalizes/displays adequate comfort level or baseline comfort level Outcome: Progressing * Care Coordination - ANGEL Weldon - 02/24/2024 11:40 AM EDT Completed transportation and placed on a will call for potential discharge on 02/25/24. Social work to follow. * Care Coordination - Anju Carney RN - 02/24/2024 11:37 AM EDT Images from the original note were not included. Care Management Progress Note Attending service confirms plan for pt to dc tomorrow for clinical stability and to start auth for post acute dc. Did task CONSUMER SERVICES CONSULTANT cooler supervisor to start auth for [facility]; auth now pending and auth #ID [id number]. Did note and address with attending service of pt having high BP readings. Will await for auth determination and if approved, plan for dc tomorrow and will have transport set up. COCportion for critical care unit manager is completed. Discharge Milestones and Delays Expected date/time: 02/25/2024 Expected discharge disposition: [facility] Discharge Milestones Place discharge order Complete med reconciliation Case mgmt discharge readiness Clinical Stability Diagnostic Workup Acid Filler Recommendations Facility Choice Selection Imaging Results PT discharge readiness OT discharge readiness Patient Education Complete Expected Discharge History Expected Date/Time Set By Reviewed At 02/25/2024 Anju Carney RN 02/24/2024 11:37 AM auth pending 02/25/2024 Anju Carney RN 02/23/2024 2:36 PM 02/23/2024 Twyla Monique, STANISLAW 02/22/2024 2:53 PM 02/22/2024 Hermann Lazo RN 02/19/2024 7:08 AM 02/19/2024 Olamide Tanner RN 02/17/2024 10:48 AM 02/18/2024 Mariely Vasquez APRN - RENETTA 02/16/2024 1:40 PM 02/17/2024 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, ROBIN [facility] 02/15/2024 3:07 PM Length of Stay (Days): 8 GMLOS: 4.4 * Care Coordination - Anju Carney RN - 02/23/2024 2:36 PM EDT Images from the original note were not included. Care Management Progress Note Pt accepted to [facility] pending auth approval (not submitted yet). Per CTS- + Serratia-abx changed to Bactrim IV q8hr. Per Pulm service, Plan to transition to po abx in the next 1-2 dayspending sputum culture, in anticipation of dc to SNF. Would recommend completing a course for a minimum of 7 days. PT will need to see pt for updated eval; pt worked with OT (SNF recs) and too tired to work with PT. Once PT notes in and pt moving towards stable for dc, will have CONSUMER SERVICES CONSULTANT cooler supervisor submit insurance auth. Pt is 02 dependant. Will follow up tomorrow. Discharge Milestones and Delays Expected date/time: 02/25/2024 Expected discharge disposition: [facility] Discharge Milestones Place discharge order Complete med reconciliation Case mgmt discharge readiness Clinical Stability Diagnostic Workup Facility Choice Selection Patient Education Complete Expected Discharge History Expected Date/Time Set By Reviewed At 02/25/2024 Anju Carney RN 02/23/2024 2:36 PM 02/23/2024 Twyla Monique, STANISLAW 02/22/2024 2:53 PM 02/22/2024 Hermann Lazo RN 02/19/2024 7:08 AM 02/19/2024 Olamide Tanner, STANISLAW 02/17/2024 10:48 AM 02/18/2024 Mariely Vasquez, ROBIN - STRUCTURAL METAL FABRICATOR APPRENTICE 02/16/2024 1:40 PM 02/17/2024 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, ROBIN [facility] 02/15/2024 3:07 PM Length of Stay (Days): 7 GMLOS: 4.4 * Care Plan - Nasima Gonzalez RN - 02/23/2024 4:41 AM EDT The patient is Moderately Stable - Low risk of patient condition declining or worsening The patient's goals for the shift include safety The clinical goals for the shift include safety Over the shift, the patient did make progress toward all of the stated goals. * Care Coordination - Twyla Monique RN - 02/22/2024 2:13 PM EDT Addendum to Earlier Note: 1414 [facility] messaged CTS resident to see if pt is ready for discharge. Per 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 APRN, pt not quite ready today. Possible discharge to [facility] tomorrow. Tcc did not have CONSUMER SERVICES CONSULTANT initiate insurance auth just yet. Awaiting medical stability. * Care Coordination - Aimee Morrell - 02/22/2024 11:25 AM EDT Referral placed to SN[facility] per TCC request. Await review and response regarding ability to accept. TCC notified. * Care Coordination - Twyla Monique RN - 02/22/2024 10:39 AM EDT Images from the original note were not included. Care Management Progress Note 1039 This tcc spoke with pt at bedside for snf choices. Pt states that he and his family are requesting facility in [place]. I told pt I would bring him a [place] SNF list but he asked that I call his grandson, Navjot, for choices. I spoke with Navjot by telephone. [place] SNF list was emailed to Navjot Doll at [email or web address]. Navjot also asked if I can look into getting a new O2 supplier for his grandfather. I called Oscar from [facility]. Pt is active with [employer] and has been with them x 32 months. Oscar states that pt will likely not be able to change O2 suppliers as he has been with this company almost three years. Oscar states that he did send an order for portable O2 tank to [facility] with pt's last admission. Tcc will look into this time permitting. Pt's grandson, Navjot, stated that he would have choices for me later today. Addendum 1113: Received phone call from Navjot Doll, pt's grandson. He has given his SNF choices. Tcc explained to Navjot about the home O2 situation and he verbalized understanding. Tcc taskedCMA to send referrals to [facility], [facility] and [facility]. Tcc will follow for response and initiate auth if able. Discharge Milestones and Delays Expected date/time: 02/22/[address] discharge order Complete med reconciliation Case mgmt discharge readiness Clinical Stability Diagnostic Workup Imaging Results Patient Education Complete Expected Discharge History Expected Date/Time Set By Reviewed At 02/22/2024 Hermann Lazo RN 02/19/2024 7:08 AM 02/19/2024 Olamide Tanner RN 02/17/2024 10:48 AM 02/18/2024 Mariely Vasquez APRN - STRUCTURAL METAL FABRICATOR APPRENTICE 02/16/2024 1:40 PM 02/17/2024 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 APRN - STRUCTURAL METAL FABRICATOR APPRENTICE 02/15/2024 3:07 PM Length of Stay (Days): 6 GMLOS: 3.1 * Care Plan - Donna Lutz RN - 02/21/2024 8:31 PM EDT Problem: Pain - Adult Goal: Verbalizes/displays adequate comfort level or baseline comfort level Outcome: Progressing Problem: Safety - Adult Goal: Free from fall injury Outcome: Progressing Problem: Discharge Planning Goal: Discharge to home or other facility with appropriate resources Outcome: Progressing Problem: Chronic Conditions and Co-morbidities Goal: Patient's chronic conditions and co-morbidity symptoms are monitored and maintained or improved Outcome: Progressing * Rapid Response Note - Darlene Duff RN - 02/20/2024 8:09 PM EDT 1950 - called to see patient for hypotension with BP 68/39. Upon our assessment patient is awake and alert x 4. Repeat BP on HAILEY 80/55(61), HR 77 (paced), SpO2 96% on 3L NC. Patient denies discomfortof any kind, denies SOB. Left chest tube in place- to water seal. No crepitus or air leak noted. Bedside nurse in contact with physician prior to our arrival and MICU team on way to bedside for further evaluation. 2015 - Dr. Carlson at bedside * Care Plan - Suad Gomez RN - 02/20/2024 12:48 PM EDT Problem: Pain - Adult Goal: Verbalizes/displays adequate comfort level or baseline comfort level Outcome: Progressing Problem: Safety - Adult Goal: Free from fall injury Outcome: Progressing The patient is Moderately Stable - Low risk of patient condition declining or worsening The patient's goals for the shift include safety The clinical goals for the shift include safety Over the shift, the patient did not make progress toward the following goals. Barriers to progression include na. Recommendations to address these barriers include na . * Care Plan - Mely Obregon RN - 02/19/2024 10:08 PM EDT The patient is Moderately Stable - Low risk of patient condition declining or worsening The patient's goals for the shift include safety The clinical goals for the shift include safety Over the shift, the patient did not make progress toward the following goals. Barriers to progression include none. Recommendations to address these barriers include continue current care plan. * Care Plan - Mely Obregon RN - 02/19/2024 9:59 PM EDT The patient is Moderately Stable - Low risk of patient condition declining or worsening The patient's goals for the shift include safety The clinical goals for the shift include safety Over the shift, the patient did not make progress toward the following goals. Barriers to progression include none. Recommendations to address these barriers include continue current care plan. * Care Coordination - Hermann Lazo RN - 02/19/2024 10:35 AM EDT Images from the original note were not included. Care Management Progress Note Remains on 1C. Chest tube to waterseal. NC 3L. B/P soft. Toprol and Lasix held. TCC met with pt at bedside and informed of therapy recommending SNF. Pt agreeable when medically ready. List given withexplanation of 5 star rating and [employer]. Pt plans to discuss with son and let me know choices. TCC to follow. Discharge Milestones and Delays Expected date/time: 02/22/[address] discharge order Complete med reconciliation Case mgmt discharge readiness Clinical Stability Diagnostic Workup Patient Education Complete Expected Discharge History Expected Date/Time Set By Reviewed At 02/22/2024 Hermann Lazo RN 02/19/2024 7:08 AM 02/19/2024 Olamide Tanner RN 02/17/2024 10:48 AM 02/18/2024 Mariely Vasquez, JOB ANALYSIS MANAGER - STRUCTURAL METAL FABRICATOR APPRENTICE 02/16/2024 1:40 PM 02/17/2024 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, JOB ANALYSIS MANAGER - STRUCTURAL METAL FABRICATOR APPRENTICE 02/15/2024 3:07 PM Length of Stay (Days): 3 GMLOS: 3.1 * Care Plan - Marquis Cevallos Jr., RN - 02/18/2024 11:48 PM EDT Problem: Pain - Adult Goal: Verbalizes/displays adequate comfort level or baseline comfort level Outcome: Progressing Problem: Safety - Adult Goal: Free from fall injury Outcome: Progressing Problem: Discharge Planning Goal: Discharge to home or other facility with appropriate resources Outcome: Progressing * Post-Procedure Note - Jarek Gustafson MD - 02/18/2024 5:02 PM EDT Interventional Radiology Brief Postprocedure Note Procedure: US guided chest tube placement Preprocedure Diagnosis: US-guided left chest tube placement Postprocedure Diagnosis: no change Staff: Staff Role Jarek Gustafson MD Radiologist Charis Berry, automatic blocker Nurse Rodney Milton [facility] [employer] Manufacturing Tech Description of procedure: US-guided 8F left chest tube placement Estimated Blood Loss: Minimal Medications Medications (Filter: Administrations occurring from 1702 to 1702 on 02/18/24) As of 02/18/24 1702 None Specimens 10 mL serosanguinous sample was aspirated and sent to the lab for evaluation. Testing per primary service Findings: moderate left pleural effusion Plan: routine postop care Complications: None Anesthesia: local See detailed result report with images in PACS. The patient tolerated the procedure well without incident or complication and is in stable condition. Jarek Gustafson MD Interventional Radiology Pager: * Perioperative Nursing Note - Charis Berry RN - 02/18/2024 2:38 PM EDT Patient arrived to Radiology department from for Ultrasound guided Chest Tube placement. Dr. Gustafson in to discuss procedure with patient and informed consent obtained. Patient on bed. corporate risk analyst applied, vital signs obtained and monitored throughout procedure. 8 Fr. Pigtail drain placed at left lower back, 10ml bloody drainage aspirated,secured with suture, Stay-Fix dressing and 2 large Tegaderm. Attached to At[facility]. Patient tolerated procedure well. Returned to supine position in bed with raised HOB. Patient in noapparent distress. No complaints voiced.Report called to RN. Patient returned to unit via bed byTransportation personnel. Specimen labeled and taken to lab for 72 hour hold. * Home Care - Christina Montiel RN - 02/18/2024 9:56 AM EDT Patient is active with: [facility], [address] [place] [phone] [facility] will continue to follow. * Care Plan - Ladan Reyes RN - 02/17/2024 9:17 PM EDT Problem: Safety - Adult Goal: Free from fall injury Outcome: Progressing * Care Coordination - Olamide Tanner RN - 02/17/2024 10:48 AM EDT Images from the original note were not included. Care Management Progress Note Patient remains on 1C with shortness of breath. VSS, remains on 4L NC-baseline home O2, VSS, afebrile, SCr bumped- decreased diuresis, thoracentesis pending and Pulmonology consulted. DCP-home, active with [facility] Discharge Milestones and Delays Expected date/time: 02/19/[address] discharge order Complete med reconciliation Case mgmt discharge readiness Clinical Stability Diagnostic Workup Patient Education Complete Expected Discharge History Expected Date/Time Set By Reviewed At 02/19/2024 Olamide Tanner RN 02/17/2024 10:48 AM 02/18/2024 Mariely Vasquez, JOB ANALYSIS MANAGER - [facility] 02/16/2024 1:40 PM 02/17/2024 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, JOB ANALYSIS MANAGER - [facility] 02/15/2024 3:07 PM Length of Stay (Days): 1 GMLOS: No GMLOS Documented * Care Plan - Donna Lutz RN - 02/16/2024 8:19 PM EDT Problem: Pain - Adult Goal: Verbalizes/displays adequate comfort level or baseline comfort level Outcome: Progressing Problem: Safety - Adult Goal: Free from fall injury Outcome: Progressing Problem: Discharge Planning Goal: Discharge to home or other facility with appropriate resources Outcome: Progressing Problem: Chronic Conditions and Co-morbidities Goal: Patient's chronic conditions and co-morbidity symptoms are monitored and maintained or improved Outcome: Progressing * Care Coordination - Olamide Tanner RN - 02/16/2024 2:03 PM EDT Care Managment Initial Assessment Date: 02/16/2024 Patient Name: Darin Breaux : 1945 Patient Information Source of Information: Patient ([place] previous admission) Cognition/Language: WFL - Within Functional Limits Permission given to speak with patient chain sales representative/caregiver as indicated: Confirmation of Payer with patient/family: Yes Payer Name: [employer] : No Confirmation of Primary Care Physician: Confirmed PCP Name: Estephania Alvarado Seen in last 2 years?: Yes Primary Caregiver: Self If assistance needed, confirmed caregiver ready, willing and able to care for patient at discharge: Confirmed with: Living Arrangements Current Residence: House Number of Floors 2 Number of Entry Steps: 3 Bed/Bath Levels: Both first floor Facility: Facility Name: Plan to Return: Lives with: Children Support Systems: Children Activities of Daily Living Ambulation: Independent Bathing/Dressing: Independent Elimination/Continence/Toileting: Independent Feeding: Independent Who Assists with Activities of Daily Living: Instrumental Activities of Daily Living Prescription Coverage: Yes Pharmacy Used: [facility] Medication Management: Independent Transportation/Shopping: Independent Transportation Mode: Car Needs Assistance with Transportation at Discharge: No Meal Preparation: Assistance Provider Meal Prep Assistance Provider Name: matthew ALAS Laundry/Cleaning: Assistance Provider Laundry/Cleaning Assistance Provider Name: Sinan Finances/Bill Paying: Assistance Provider Finances/Bill Payer Assistance Provider Name: Sinan Communication: Independent Types of Care Services/Equipment Utilized Care Services: Skilled Home Health Services Care Services Provider Name: [facility] Dialysis Type: Durable Medical Equipment: [place], Oxygen (Continuous or prn) Oxygen Flow Rate: [facility] Patient's Goal/Discharge Plan Patient expects to be discharged to: home Discharge Planning Actions: Continue to follow Patient's Choice Rights and [employer] and Collaborative Relationships Disclosed as Indicated for Post-Acute Care: Interdisciplinary Team Engagement: Home Health Care Social Work Referral for: Additional Information: Patient admitted to with SOB. Patient known to TCC from recent admission to [facility] ICU s/p CABG. Patient from home with ex-daughter in law, was discharged with home with home O2 per [facility] last admission and active with [facility]. Olamide Tanner RN * Care Plan - Donna Lutz RN - 02/15/2024 8:44 PM EDT Problem: Pain - Adult Goal: Verbalizes/displays adequate comfort level or baseline comfort level Outcome: Progressing Problem: Safety - Adult Goal: Free from fall injury Outcome: Progressing Problem: Discharge Planning Goal: Discharge to home or other facility with appropriate resources Outcome: Progressing Problem: Chronic Conditions and Co-morbidities Goal: Patient's chronic conditions and co-morbidity symptoms are monitored and maintained or improved Outcome: Progressing documented in this [place] [id number] Note* Care Coordination - Unknown Case Management - 02/25/2024 11:15 AM EDT Patient Choice Patient Name: DARIN BREAUX Date of : 1945 All Providers Sent Referral Name: [facility] SNF Phone: [phone] Address: [address] [place] [address] [facility] Address: [address] [place] [address] Name: [facility] Address: [address] [place] [address] [place] [id number] Note* Care Coordination - Unknown Case Management - 02/25/2024 11:15 AM EDT Patient Choice Patient Name: DARIN BREAUX Date of : 1945 All Providers Sent Referral Name: [facility] SNF Phone: [phone] Address: [address] [place] [address]: [facility] Address: [address] [place] [address] Name: [facility] Address: [address] [place] [address] [place] [id number] Note* Care Coordination - ANGEL Weldon - 02/25/2024 11:10 AM EDT [facility] scheduled [facility] Mejia Ramirez claimed trip. Notified TCC, bedside nurse, community relations director and facility. [place] [id number] Note* Care Coordination - ANGEL Weldon - 02/25/2024 11:10 AM EDT Transportation scheduled in Round trip for Patient to discharge to [facility] at 2:00. Mejia Ramirez claimed trip. Notified TCC, bedside nurse, community relations director and facility. [place] [id number] Note* Care Coordination - Aimee Morrell - 02/25/2024 9:59 AM EDT Discharge med list, MAR and updated notes transmitted to [facility] SN[facility] via Careport per TCC request. [place] [id number] Note* Care Coordination - Aimeeyoko Morrell - 02/25/2024 9:59 AM EDT Discharge med list, MAR and updated notes transmitted to [facility] SN[facility] via Careport per TCC request. [place] [id number] [facility]08-08-2024 Hospital course Narrative* Wesley Magana APRN - [place] - 02/25/2024 9:29 AM EDT Images from the original note were not included. Discharge Summary: Cardiothoracic Surgery Darin Breaux, 79 y.o., 1945 ADMIT DATE: 02/15/2024 DISCHARGE DATE: 02/25/2024 VISIT STATUS: Admission CODE STATUS: Full Code DISCHARGING SURGEON: Mike East MD, Office Number: [phone] DISCHARGE DIAGNOSES: SOB likely related to post op fluid overload/bilateral pleural effusions CAD s/p CABG (02/02/24) SSS, Afib s/p dual chamber [facility], on Eliquis s/p MAZE AE COPD Hemoptysis HTN HPL COPD/Emphysema (3L O2) Current tobacco use GERD AAA s/p Endovascular repair Hx PCI -PO bactrim DS BID for 10 days. -Prednisone for 2 more days. -Aspirin, statin and BB. -Eliquis BID for afib. -Dulera, Spiriva, duonebs. BMI CLASSIFICATION:Normal Weight (BMI 18.5-24.9) TREATMENT TEAM: Primary Care Physician: Estephania Alvarado Surgical Orderly: Dr. Valentin SURGERY: 02/02/24: Dr. Vargas- CABGx3 (MCDUFFIE-LAD, SVG-OM1-PDA sequential), LEVH, modified MAZE with left atrial appendage clip HOSPITAL COURSE: 79 y.o. male who was direct admitted from [facility] due to increase in SOB and chest pain. CXR completed at [facility] showed bilateral pleural effusions left greater than right with bibasilar atelectasis and/or infiltrates more prominent at the left lung base. Patient is known to our practice. He recently underwent CABGx3, MAZE, LAAL with atriclip on 02/[address] Vargas. Post op course was uncomplicated and once medically optimized he was discharged home with family on POD#7. Perpatient after he got home he continue to decline from a respiratory standpoint. He noticed his workof breathing worsened and he could barely walk without getting short of breath. He does admit to some CP but relates that to his incision. He had his family take him to [facility] which led to his transfer to [facility]. Patient was admitted for COPD exacerbation. Blood tinged sputum noted, attributed to bronchitis. PNA PCR with serratia marcescens, sputum culture with serratia, abx changed to bactrim IV, able to transition to PO ABX. Also seen by Pulmonology, treated with steroid burst. Patientwas weaned back to home 3L O2. Was able to discharge to SNF on 02/25/24. DIAGNOSTICS: BP 109/70 (BP Location: Right arm, Patient Position: Lying) Pulse 89 Temp (!) 34.9 C (94.8 F) (Temporal) Resp 18 Wt 154 lb 15.7 oz (70.3 kg) Comment: bed SpO2 100% BMI 19.90 kg/m Recent Labs 02/23/24 0624 02/24/24 0008 02/25/24 0131 CREATININE -- 1.11 -- HGB 8.8* 8.1* 7.9* PLT 233 218 220 WBC 5.2 6.4 6.0 NA -- 132* -- K -- 4.7 -- DISCHARGE MEDICATIONS: Medication List START taking these medications oxyCODONE 5 MG immediate release tablet Commonly known as: Roxicodone Take 1 tablet (5 mg) by mouth every 6 hours as needed for severe pain (7-10) for up to 5 days. predniSONE 20 MG tablet Commonly known as: Deltasone Take 2 tablets (40 mg) by mouth daily for 2 doses. Start taking on: February 26, 2024 sulfamethoxazole-trimethoprim 800-160 MG tablet Commonly known as: Bactrim DS Take 1 tablet by mouth 2 times daily for 10 days. CHANGE how you take these medications acetaminophen 500 MG tablet Commonly known as: Tylenol Take 2 tablets (1,000 mg) by mouth every 8 hours as needed for mild pain (1-3), moderate pain (4-6), fever or headaches. What changed: when to take this reasons to take this metoprolol tartrate 25 MG tablet Commonly known as: Lopressor Take 1 tablet (25 mg) by mouth 2 times daily. What changed: medication strength how much to take CONTINUE taking these medications albuterol 108 (90 Base) MCG/ACT inhaler aspirin 81 MG EC tablet atorvastatin 80 MG tablet Commonly known as: Lipitor Take 1 tablet (80 mg) by mouth daily. benzonatate 200 MG capsule Commonly known as: Tessalon cholecalciferol 50 MCG (2000 UT) capsule Commonly known as: Vitamin D-3 Eliquis 5 MG tablet Generic drug: apixaban fluticasone 50 MCG/ACT nasal spray Commonly known as: Flonase FOLIC ACID PO ipratropium-albuterol 0.5-2.5 mg/3 mL nebulizer solution Commonly known as: Duo-Neb IRON PO pantoprazole 20 MG EC tablet Commonly known as: ProtoNix Spiriva Respimat 2.5 MCG/ACT inhaler Generic drug: tiotropium Symbicort 160-4.5 MCG/ACT inhaler Generic drug: budesonide-formoterol STOP taking these medications amLODIPine 5 MG tablet Commonly known as: Norvasc Where to Get Your Medications You can get these medications from any pharmacy Bring a paper prescription for each of these medications oxyCODONE 5 MG immediate release tablet Information about where to get these medications is not yet available Ask your nurse or doctor about these medications acetaminophen 500 MG tablet metoprolol tartrate 25 MG tablet predniSONE 20 MG tablet sulfamethoxazole-trimethoprim 800-160 MG tablet ACTIVITY: activity as tolerated, strict post-sternotomy/post-thoracotomy sternal precautions as outlined in the home going instructions, and no driving or operating heavy machinery until released by provider STRICT POST-STERNOTOMY/POST-THORACOTOMY PRECAUTIONS OUTLINED IN THE HOME GOING INSTRUCTIONS FOLLOW UP: Phone call on 03/04/24 at 10:30AM. [address] [place] [id number] Dept: [phone] Dept CORE CARDIAC MEDICATIONS PRESCRIBED AT DISCHARGE: Beta-morteza prescribed at discharge: [x] Yes [] No - reason why: ACEi or ARB prescribed at discharge: [] Yes [x] No - reason why: Statin prescribed at discharge: [x] Yes [] No - reason why: Anti-platelet agent prescribed at discharge: [x] Yes [] No - reason why: If yes, type: Post-operative Atrial Fibrillation: [x]Yes [] No OAC: [x] Yes [] No DISPOSITION: [facility] A copy of the discharge instructions which included the medications at the time of discharge, follow-up appointments, phone numbers to call with questions, activity, restrictions, and limitations wasprovided to the patient or their family. We greatly appreciate the opportunity to participate in the care of your patient. If you have any additional questions or concerns regarding any aspects of their care or management please do not hesitate to contact us. SIGNED: ROBIN Anglin CNP 02/25/2024, 9:29 AM documented in this [facility]08-08-2024 Hospital Discharge instructions* Discharge Instructions* Wesley Magana, ROBIN - STRUCTURAL METAL FABRICATOR APPRENTICE - 02/25/2024 9:01 AM EDT Images from the original note were not included. [facility]: Cardiothoracic Surgery [address] [facility] #[phone] Notify us if the following occur - Increased tenderness, redness, or swelling of your incisions. - Any drainage from the chest incision (clear or pink drainage from the leg incision or chest tube site is common). - Angina symptoms like those you had before surgery - Sharp pain in chest, neck or shoulder that is worse when taking a deep breath - Persistent fever greater than 100 degrees F or 38 degrees C - Flu-like symptoms-chills, aches, fever, increased fatigue - Heart rate faster than 150 beats/minute with shortness of breath or new irregular heart rate. - Any unusual bleeding - Shortness of breath not relieved by rest - Weight gain of three pounds in one day or five pounds over one week Activity Instructions - Sternal Precautions for 6 weeks - Do not lift, push, or pull anything heavier than 10 pounds for 6 weeks (a gallon of milk weighs 8pounds). - Do not drive until you have been given permission by your surgeon/provider and until you are off narcotic/opioid pain medication - It is ok to sleep on your side if you prop pillows to support your back. Do not sleep on your stomach. - Walk at least 4 times a day, start with 5 minute intervals, increase minutes walked each day. Do not walk on a treadmill - Balance rest and activity during your recovery - Use the stairs, but go slowly, Use the handrail for balance but do not pull yourself up with yourarms. - Shower daily. Do not take your heart medication right before you shower. You could become lightheaded from your blood pressure and heart medication. Always have someone nearby to assist you. - Do not take a tub bath or use a hot tub until all incision are completely healed (no scab). - Put evita hose on in AM and remove at bedtime. Elevate your feet above level of heart when you are sitting. - Cough and deep breathe and use incentive spirometer every hour (10x/hour while awake for two weeks). Other Instructions - Weigh yourself daily at the same time (after you urinate but before breakfast) - Keep a record of your daily weight, and bring to your first post op office visit - Take all medications as prescribed. Bring all your medication bottles to any follow up office visit Incision Care - Wash your sternal incision with anti-bacterial soap and warm water. Pat dry, and leave open to air. Do not use any lotions, or powders, or ointments. * Discharge Instr - IRA* Anju Carney RN - 02/18/2024 9:59 AM EDT Images from the original note were not included. Continuity of Care Form Patient Name: Darin Breaux : 1945 Admit date: 02/15/2024 Discharge date: 02/25/24 Code Status Order: Full Code Advance Directives: N Admitting Physician: Mike East MD PCP: Estephania Alvarado Discharging Nurse: STANISLAW Donaldson Discharging Hospital Unit/Room#: 1C-131/1C-131 A Discharging Unit Emergency Contact: Extended Emergency Contact Information Primary Emergency Contact: corey moran [place] Relation: [id number] Audio Visual Aide needed? No Secondary Emergency Contact: [facility] [place] Relation: Grandchild Past Surgical History: Past Surgical History: Procedure Laterality Date ABDOMINAL AORTIC ANEURYSM REPAIR BACK SURGERY lumbar discectomy CARPAL TUNNEL RELEASE Right CATARACT EXTRACTION Bilateral COLONOSCOPY CORONARY ANGIOPLASTY WITH STENT PLACEMENT 1996 CORONARY STENT PLACEMENT HERNIA REPAIR Bilateral inguinal TRANSURETHRAL RESECTION OF PROSTATE Immunization History: There is no immunization history on file for this patient. Active Problems: Medical Problems Problem List * (Principal) Shortness of breath CAD in [place] artery Severe malnutrition (CMS/HCC) (HCC) Isolation/Infection: No active isolations No active infections Nurse Assessment: Last Vital Signs: BP 96/53 (BP Location: Left arm) Pulse 79 Temp (!) 35.8 C (96.4 F) (Temporal) Resp 20 Wt 67 kg (147 lb 9.6 oz) SpO2 96% BMI 18.95 kg/m Last documented pain score (0-10 scale): Last Weight: Wt Readings from Last 1 Encounters: 02/18/24 67 kg (147 lb 9.6 oz) Mental Status: IRA Patient Mental Status: oriented and alert IV Access: IRA IV Access: Peripheral IV - site: forearm left, condition patent and no redness, insertion date:02/20/24 Nursing Mobility/ADLs: Walking Minimal assistance Transfer Minimal assistance Bathing Minimal assistance Dressing Independent Toileting Independent Feeding Independent Unit Supervisor Independent Med Delivery yes Wound Care Documentation and Therapy: Wound/Incision 02/02/24 Incision Calf Anterior;Left (Active) Number of days: 16 Wound/Incision 02/02/24 Incision Sternum (Active) Number of days: 16 Elimination: Continence: Bowel: yes Bladder: yes Urinary Catheter: None Colostomy/Ileostomy/Ileal Conduit: None Date of Last BM: 02/23/24 Intake/Output Summary (Last 24 hours) at 02/18/2024 0957 Last data filed at 02/18/2024 0706 Gross per 24 hour Intake 500 ml Output 200 ml Net 300 ml I/O last 3 completed shifts: In: 500 (7 mL/kg) [P.O.:500] Out: 1600 (22.4 mL/kg) [Urine:1600 (0.6 mL/kg/hr)] Weight: 71.5 kg Safety Concerns: at risk for falls Impairments/Disabilities: hearing Nutrition Therapy: Current Nutrition Therapy: Oral diet: general Routes of Feeding: oral Liquids: thin liquids Daily Fluid Restriction: no Last Modified Barium Swallow with Video (Video Swallowing Test): not done Treatments at the Time of Hospital Discharge: Respiratory Treatments: Duo-neb Oxygen Therapy: is on oxygen at 3 L/min per nasal cannula. Ventilator: No ventilator support Rehab Therapies: physical therapy, occupational therapy, and nursing Weight Bearing Status/Restrictions: no restriction Other Medical Equipment (for information only, NOT a DME order): walker Other Treatments: Patient's personal belongings (please select all that are sent with patient): RN SIGNATURE: MANAGEMENT/SOCIAL WORK SECTION Inpatient Status Date: 02/16/24 Discharging to Facility/ Agency [facility] [address], [place], [place] [address] - (RN report ph# [phone]) Dialysis Facility (if applicable) Name: Address: Dialysis Schedule: Phone: Fax: Pattern Assembler/Felled Seam Operator signature: ICIAN SECTION Name: Darin Breaux Prognosis: fair Condition at Discharge: stable Rehab Potential (if transferring to Rehab): good Recommended Labs or Other Treatments After Discharge: PRN nebulizer for SOB, CXR for new shortness of breath. The individual is being admitted to a nursing facility directly from an [facility] or a unit of a [facility] that is not operated by or licensed by [facility] under section 5119.14 or 5160-3-15.1 5 The individual requires the level of services provided by a nursing facility for the condition for which he or she was treated in the hospital and, Physician Certification: I certify the above information and transfer of Darin Breaux is necessaryfor the continuing treatment of the diagnosis listed and that he requires detention facility for less than 30 days. Update Admission H&P: 79 y.o. male who was direct admitted from [facility] due to increase in SOB and chest pain. CXR completed at [facility] showed bilateral pleural effusions left greater than right with bibasilar atelectasis and/or infiltrates more prominent at the left lung base. Patient is known to our practice. He recently underwent CABGx3, MAZE, LAAL with atriclip on 02/[address] Vargas. Post op course was uncomplicated and once medically optimized he was discharged homewith family on POD#7. Per patient after he got home he continue to decline from a respiratory standpoint. He noticed his work of breathing worsened and he could barely walk without getting short of breath. He does admit to some CP but relates that to his incision. He had his family take him to [facility] which led to his transfer to [facility]. Patient was admitted for COPD exacerbation. Blood tinged sputum noted, attributed to bronchitis. PNA PCR with serratia marcescens, sputum culture with serratia, abx changed to bactrim IV, able to transition to PO ABX. Also seen by Pulmonology, treated with steroid burst. Patient was weaned back to home 3L O2. Was able to discharge to SNF on 02/25/24. PHYSICIAN SIGNATURE: Wound care/dressing changes: -Surgical incisions leave open to air, cleanse daily with mild soap & warm water, pat dry, no lotion or powders on incision.Call if incision becomes reddened, opens or drains. Respiratory Care: -Cough and Deep Breath; Use incentive spirometry 10 times every hour while awake for 2 weeks. -Oxygen therapy-prn- Maintain oxygen sat> 92% Medications: -see Medication reconciliation (Med rec) Additional Orders: -Sternal precautions (no lifting, pushing, pulling >10 lbs) for 6 weeks-use heart pillow -Vitals every 8 hours while awake-call for fever and chills -Daily weights- call for weight gain -Wear TEDs during day and off at night. Lab/Imaging Work: -CXR for new shortness of breath. Activity/Weight Bearing: -Up with assistance: up in chair for all meals, ambulate 3-4 times a day -Ok to shower with assist (if pt has IV line then only if completely covered) Therapies: -PT: Eval and treat OT: eval and treat Consults: -Pulmonology for COPD Follow up Appointments: Phone Call- Wesley Magana APRN Date:03/04/24 Time: 10:30AM Post op follow up [address] documented in this [facility]08-08-2024 Note* Care Coordination - Anju Carney RN - 02/25/2024 8:57 AM EDT Images from the original note were not included. Update- pt now has dc orders. IRA completed. Social work setting up transport apx 1300 today with 02. CONSUMER SERVICES CONSULTANT sending clinical to facility and completing 7000 form. Care Management Progress Note [id number] Reference Id: [id number] Dates Approved: 02/24/2024-02/26/2024 Next Review Date: 02/26/2024. Alerted this facility as talked with MANUFACTURING SHIFT SUPERVISOR Wesley Malloy who will work on dc today. Messaged RN and elementary school social worker to alert of plan and for elementary school social worker to set up transport today 1pm per request of MANUFACTURING SHIFT SUPERVISOR but not prior to 12noon. IRA completed and [facility] tasked to send clinical dc paperwork. Discharge Milestones and Delays Expected date/time: 02/25/2024 Expected discharge disposition: Halfway Facility Discharge Milestones [facility] discharge order Complete med reconciliation Case mgmt discharge readiness Clinical Stability Diagnostic Workup Facility Choice Selection Imaging Results Patient Education Complete Expected Discharge History Expected Date/Time Set By Reviewed At 02/25/2024 Anju Carney RN 02/25/2024 8:18 AM auth approved 02/25/2024 Anju Carney RN 02/24/2024 11:37 AM auth pending 02/25/2024 Anju Carney RN 02/23/2024 2:36 PM 02/23/2024 Twyla Monique, STANISLAW 02/22/2024 2:53 PM 02/22/2024 Hermann Lazo RN 02/19/2024 7:08 AM 02/19/2024 Olamide Tanner, STANISLAW 02/17/2024 10:48 AM 02/18/2024 Mariely Vasquez, JOB ANALYSIS MANAGER - STRUCTURAL METAL FABRICATOR APPRENTICE 02/16/2024 1:40 PM 02/17/2024 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 JOB ANALYSIS MANAGER - STRUCTURAL METAL FABRICATOR APPRENTICE 02/15/2024 3:07 PM Length of Stay (Days): 9 GMLOS: 4.4 [id number] Note* Care Coordination - Anju Carney RN - 02/25/2024 8:57 AM EDT Images from the original note were not included. Update- pt now has dc orders. IRA completed. Social work setting up transport apx 1300 today with 02. CONSUMER SERVICES CONSULTANT sending clinical to facility and completing 7000 form. Care Management Progress Note [facility]: [id number] Reference Id: [id number] Dates Approved: 02/24/2024-02/26/2024 Next Review Date: 02/26/2024. Alerted this facility as talked with MANUFACTURING SHIFT SUPERVISOR Wesley Malloy who will work on dc today. Messaged RN and elementary school social worker to alert of plan and for elementary school social worker to set up transport today 1pm per request of MANUFACTURING SHIFT SUPERVISOR but not prior to 12noon. IRA completed and [facility] tasked to send clinical dc paperwork. Discharge Milestones and Delays Expected date/time: 02/25/2024 Expected discharge disposition: Halfway Facility Discharge Milestones Place discharge order Complete med reconciliation Case mgmt discharge readiness Clinical Stability Diagnostic Workup Facility Choice Selection Imaging Results Patient Education Complete Expected Discharge History Expected Date/Time Set By Reviewed At 02/25/2024 Anju Carney RN 02/25/2024 8:18 AM auth approved 02/25/2024 Anju Carney RN 02/24/2024 11:37 AM auth pending 02/25/2024 Anju Carney RN 02/23/2024 2:36 PM 02/23/2024 Twyla Monique, RN 02/22/2024 2:53 PM 02/22/2024 Hermann Lazo, STANISLAW 02/19/2024 7:08 AM 02/19/2024 Olamide Tanner, STANISLAW 02/17/2024 10:48 AM 02/18/2024 Mariely Vasquez, JOB ANALYSIS MANAGER - STRUCTURAL METAL FABRICATOR APPRENTICE 02/16/2024 1:40 PM 02/17/2024 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, JOB ANALYSIS MANAGER - STRUCTURAL METAL FABRICATOR APPRENTICE 02/15/2024 3:07 PM Length of Stay (Days): 9 GMLOS: 4.4 [place] [facility] [id number] NoteProblem: Pain - Adult Goal: Verbalizes/displays adequate comfort level or baseline comfort level [facility] Plan of care note* Care Plan - Carly Mejia RN - 02/24/2024 7:54 PM EDT Problem: Pain - Adult Goal: Verbalizes/displays adequate comfort level or baseline comfort level Outcome: Progressing [facility] [id number] Note* Care Coordination - ANGEL Weldon - 02/24/2024 11:40 AM EDT Completed transportation and placed on a will call for potential discharge on 02/25/24. Social work to follow. [place] [facility] [id number] Note* Care Coordination - ANGEL Weldon - 02/24/2024 11:40 AM EDT Completed transportation and placed on a will call for potential discharge on 02/25/24. Social work to follow. [facility] [id number] Note* Care Coordination - Anju Carney RN - 02/24/2024 11:37 AM EDT Images from the original note were not included. Care Management Progress Note Attending service confirms plan for pt to dc tomorrow for clinical stability and to start auth for post acute dc. Did task CONSUMER SERVICES CONSULTANT cooler supervisor to start auth for [facility]; auth now pending and auth #ID [id number]. Did note and address with attending service of pt having high BP readings. Will await for auth determination and if approved, plan for dc tomorrow and will have transport set up. COCportion for critical care unit manager is completed. Discharge Milestones and Delays Expected date/time: 02/25/2024 Expected discharge disposition: Halfway Facility Discharge Milestones Place discharge order Complete med reconciliation Case mgmt discharge readiness Clinical Stability Diagnostic Workup Acid Filler Recommendations Facility Choice Selection Imaging Results PT discharge readiness OT discharge readiness Patient Education Complete Expected Discharge History Expected Date/Time Set By Reviewed At 02/25/2024 Anju Careny RN 02/24/2024 11:37 AM auth pending 02/25/2024 Anju Carney RN 02/23/2024 2:36 PM 02/23/2024 Twyla Monique, STANISLAW 02/22/2024 2:53 PM 02/22/2024 Hermann Lazo, STANISLAW 02/19/2024 7:08 AM 02/19/2024 Olamide Tanner, STANISLAW 02/17/2024 10:48 AM 02/18/2024 Mariely Vasquez JOB ANALYSIS MANAGER - STRUCTURAL METAL FABRICATOR APPRENTICE 02/16/2024 1:40 PM 02/17/2024 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 JOB ANALYSIS MANAGER - STRUCTURAL METAL FABRICATOR APPRENTICE 02/15/2024 3:07 PM Length of Stay (Days): 8 GMLOS: 4.4 [place] [facility] [id number] Note* Care Coordination - Anju Carney RN - 02/24/2024 11:37 AM EDT Images from the original note were not included. Care Management Progress Note Attending service confirms plan for pt to dc tomorrow for clinical stability and to start auth for post acute dc. Did task CONSUMER SERVICES CONSULTANT cooler supervisor to start auth for [facility]; auth now pending and auth #ID [id number]. Did note and address with attending service of pt having high BP readings. Will await for auth determination and if approved, plan for dc tomorrow and will have transport set up. COCportion for critical care unit manager is completed. Discharge Milestones and Delays Expected date/time: 02/25/2024 Expected discharge disposition: Halfway Facility Discharge Milestones Place discharge order Complete med reconciliation Case mgmt discharge readiness Clinical Stability Diagnostic Workup Acid Filler Recommendations Facility Choice Selection Imaging Results PT discharge readiness OT discharge readiness Patient Education Complete Expected Discharge History Expected Date/Time Set By Reviewed At 02/25/2024 Anju Carney RN 02/24/2024 11:37 AM auth pending 02/25/2024 Anju Carney RN 02/23/2024 2:36 PM 02/23/2024 Twyla Monique, STANISLAW 02/22/2024 2:53 PM 02/22/2024 Hermann Lazo RN 02/19/2024 7:08 AM 02/19/2024 Olamide Tanner RN 02/17/2024 10:48 AM 02/18/2024 Mariely Vasquez, JOB ANALYSIS MANAGER - STRUCTURAL METAL FABRICATOR APPRENTICE 02/16/2024 1:40 PM 02/17/2024 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, JOB ANALYSIS MANAGER - STRUCTURAL METAL FABRICATOR APPRENTICE 02/15/2024 3:07 PM Length of Stay (Days): 8 GMLOS: 4.4 [facility] [id number] Note* Care Coordination - Anju Carney RN - 02/23/2024 2:36 PM EDT Images from the original note were not included. Care Management Progress Note Pt accepted to [facility] pending auth approval (not submitted yet). Per CTS- + Serratia-abx changed to Bactrim IV q8hr. Per Pulm service, Plan to transition to po abx in the next 1-2 dayspending sputum culture, in anticipation of dc to SNF. Would recommend completing a course for a minimum of 7 days. PT will need to see pt for updated eval; pt worked with OT (SNF recs) and too tired to work with PT. Once PT notes in and pt moving towards stable for dc, will have [facility] cooler supervisor submit insurance auth. Pt is 02 dependant. Will follow up tomorrow. Discharge Milestones and Delays Expected date/time: 02/25/2024 Expected discharge disposition: Halfway Facility Discharge Milestones Place discharge order Complete med reconciliation Case mgmt discharge readiness Clinical Stability Diagnostic Workup Facility Choice Selection Patient Education Complete Expected Discharge History Expected Date/Time Set By Reviewed At 02/25/2024 Anju Carney RN 02/23/2024 2:36 PM 02/23/2024 Twyla Monique, STANISLAW 02/22/2024 2:53 PM 02/22/2024 Hermann Lazo, STANISLAW 02/19/2024 7:08 AM 02/19/2024 Olamide Tanner, STANISLAW 02/17/2024 10:48 AM 02/18/2024 Mariely Vasquez, JOB ANALYSIS MANAGER - STRUCTURAL METAL FABRICATOR APPRENTICE 02/16/2024 1:40 PM 02/17/2024 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 JOB ANALYSIS MANAGER - STRUCTURAL METAL FABRICATOR APPRENTICE 02/15/2024 3:07 PM Length of Stay (Days): 7 GMLOS: 4.4 [facility] [id number] Note* Care Coordination - Anju Carney RN - 02/23/2024 2:36 PM EDT Images from the original note were not included. Care Management Progress Note Pt accepted to [facility] pending auth approval (not submitted yet). Per CTS- + Serratia-abx changed to Bactrim IV q8hr. Per Pulm service, Plan to transition to po abx in the next 1-2 dayspending sputum culture, in anticipation of dc to SNF. Would recommend completing a course for a minimum of 7 days. PT will need to see pt for updated eval; pt worked with OT (SNF recs) and too tired to work with PT. Once PT notes in and pt moving towards stable for dc, will have [facility] cooler supervisor submit insurance auth. Pt is 02 dependant. Will follow up tomorrow. Discharge Milestones and Delays Expected date/time: 02/25/2024 Expected discharge disposition: Halfway Facility Discharge Milestones Place discharge order Complete med reconciliation Case mgmt discharge readiness Clinical Stability Diagnostic Workup Facility Choice Selection Patient Education Complete Expected Discharge History Expected Date/Time Set By Reviewed At 02/25/2024 Anju Carney RN 02/23/2024 2:36 PM 02/23/2024 Twyla Monique, STANISLAW 02/22/2024 2:53 PM 02/22/2024 Hermann Lazo, STANISLAW 02/19/2024 7:08 AM 02/19/2024 Olamide Tanner RN 02/17/2024 10:48 AM 02/18/2024 Mariely Vasquez, JOB ANALYSIS MANAGER - STRUCTURAL METAL FABRICATOR APPRENTICE 02/16/2024 1:40 PM 02/17/2024 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, JOB ANALYSIS MANAGER - STRUCTURAL METAL FABRICATOR APPRENTICE 02/15/2024 3:07 PM Length of Stay (Days): 7 GMLOS: 4.4 [facility] [id number] Plan of care note* Care Plan - Nasima Gonzalez RN - 02/23/2024 4:41 AM EDT The patient is Moderately Stable - Low risk of patient condition declining or worsening The patient's goals for the shift include safety The clinical goals for the shift include safety Over the shift, the patient did make progress toward all of the stated goals. [facility] [id number] Consult note* Aubrey Telles MD - 02/22/2024 2:13 PM EDT Images from the original note were not included. Internal Medicine: Pulmonary Initial Consult Name: Darin Breaux : 1945(79 y.o.) Date: 02/22/24 Subjective: Chief Complaint: Dyspnea HPI: 79yoM with O2-dependent COPD follows with Dr. Chencho Madison in [place] for pulmonology. He had a CABG x3v on 02/01. He was discharged home in stable condition on POD#7, but gradually worsened with his breathing. Presented to [facility] and subsequently to [facility]. Here, he has been diuresed and placed on scheduled nebs. He does not feel better despite that. Overthe last day or two, he has started to have blood-tinged hemoptysis. Notably, 2 days prior to his CT surgery, he was started on oral antibiotics by his wood window and door craftsman. He states he got 3 pills in then went for CABG. He was given rifampin while admitted for CABG due to meningitis prophy per chart. He receives prednisone tapers about twice a year. He had a similar episode of hemoptysis a few weeks ago that resolved on its own. A CT Scan is visible on PACS from 07/2023. No obvious mass on that imaging. Past Medical History: Diagnosis Date AAA (abdominal aortic aneurysm) ([facility]) Arthritis Atrial fibrillation (HCC) Carotid artery stenosis COPD (chronic obstructive pulmonary disease) (HCC) Coronary artery disease GERD (gastroesophageal reflux disease) Hyperlipidemia Hypertension Myocardial infarction (HCC) Presence of permanent cardiac pacemaker Past Surgical History: Procedure Laterality Date ABDOMINAL AORTIC ANEURYSM REPAIR BACK SURGERY lumbar discectomy CARPAL TUNNEL RELEASE Right CATARACT EXTRACTION Bilateral COLONOSCOPY CORONARY ANGIOPLASTY WITH STENT PLACEMENT 1996 CORONARY STENT PLACEMENT HERNIA REPAIR Bilateral inguinal TRANSURETHRAL RESECTION OF PROSTATE US GUIDED CHEST TUBE PLACEMENT 02/18/2024 US GUIDED CHEST TUBE PLACEMENT 02/18/2024 Jarek Gustafson MD [facility] US IMAGING No family history on file. Social History Socioeconomic History Marital status: Spouse name: Not on file Number of children: Not on file Years of education: Not on file Highest education level: Not on file Occupational History Not on file Tobacco Use Smoking status: Every Day Current packs/day: 0.50 Average packs/day: 1.9 packs/day for 68.6 years (133.3 ttl pk-yrs) Types: Cigarettes Start date: 1955 Smokeless tobacco: Never Vaping Use Vaping status: Never Used Substance and Sexual Activity Alcohol use: Not Currently Comment: sober since 2006 Drug use: Never Sexual activity: Not on file Other Topics Concern Not on file Social History Narrative Not on file Social Determinants of Health Financial Resource Strain: Not on file Food Insecurity: Not on file Transportation Needs: Not on file Physical Activity: Not on file Stress: Not on file Social Connections: Not on file Intimate Partner Violence: Not At Risk (02/15/2024) Humiliation, Afraid, Rape, and Kick questionnaire Fear of Current or Ex-Partner: No Emotionally Abused: No Physically Abused: No Sexually Abused: No Housing Stability: Not on file Allergies Allergen Reactions Penicillins Hives Plavix [Clopidogrel] Hives Tamsulosin Other Blacked out Prior to Admission medications Medication Sig Start Date End Date Taking? Authorizing Provider acetaminophen (Tylenol) 500 MG tablet Take 2 tablets (1,000 mg) by mouth in the morning and 2 tablets (1,000 mg) at noon and 2 tablets (1,000 mg) before bedtime. 02/09/24 03/13/24 Yes ROBIN Gracia CNP albuterol 108 (90 Base) MCG/ACT inhaler Inhale 2 puffs every 6 hours as needed. 10/15/23 Historical Provider, amLODIPine (Norvasc) 5 MG tablet Take 5 mg by mouth daily. 12/31/23 Historical Provider, aspirin 81 MG EC tablet Take 81 mg by mouth daily. Historical Provider, atorvastatin (Lipitor) 80 MG tablet Take 1 tablet (80 mg) by mouth daily. 02/10/24 05/10/24 ROBIN Gracia CNP benzonatate (Tessalon) 200 MG capsule Take 200 mg by mouth 3 times daily as needed. 10/08/23 Historical ProviderMD cholecalciferol (Vitamin D-3) 50 MCG (2000 UT) capsule Take 2,000 Units by mouth daily. Historical Provider, Eliquis 5 MG tablet Take 5 mg by mouth 2 times daily. 01/13/24 Historical ProviderMD Ferrous Sulfate (IRON PO) Take 1 tablet by mouth daily. Historical Provider, fluticasone (Flonase) 50 MCG/ACT nasal spray Administer 2 sprays into each nostril daily. 12/31/23 Historical Provider, FOLIC ACID PO Take 1 tablet by mouth daily. Historical Provider, ipratropium-albuterol (Duo-Neb) 0.5-2.5 mg/3 mL nebulizer solution Take 3 mL by nebulization every 6 hours as needed. 09/10/23 Historical Provider, metoprolol tartrate (Lopressor) 50 MG tablet Take 1 tablet (50 mg) by mouth 2 times daily. 02/09/24 05/09/24 Wesley Magana, JOB ANALYSIS MANAGER - STRUCTURAL METAL FABRICATOR APPRENTICE pantoprazole (ProtoNix) 20 MG EC tablet Take 20 mg by mouth every morning (before breakfast). 01/02/24 Historical Provider, Spiriva Respimat 2.5 MCG/ACT inhaler 2 puffs daily. 12/31/23 Historical Provider, Symbicort 160-4.5 MCG/ACT inhaler Inhale 2 puffs in the morning and 2 puffs in the evening. 12/31/23istorical Provider, Objective: Oxygen Delivery: O2 Flow Rate (L/min): 3 L/min VITALS: BP 121/79 Pulse 91 Temp (!) 35.3 C (95.5 F) (Temporal) Resp 16 Wt 67.8 kg (149 lb 7.6 oz) SpO2 97% BMI 19.19 kg/m CURRENT PULSE OXIMETRY: SpO2: 97 % Review of Systems +blood tinged hemoptysis, +cough, no CP, no abdominal pain, +dyspnea Constitutional: General Appearance []WDWN []Obese []Cachectic [x]Thin []Ill Eyes: Inspection of Pupils/Irises Pupils round and react: [x]Yes []No Sclera: []Icteric [x]Non-Icteric Inspection of Conjunctiva/Lids Conjunctiva: []Injected [x]Non-Injected Lids: [x]Intact []Lesion Present ENT/Mouth: External Inspection of ears/nose [x] Normal [] Scar/Lesion/Mass Inspection of teeth/lips/gums Dentition: Lips/Gums: [x]Intact [x]Lesion Present Mucosa: [x][place] [x]Moist []Dry Neck: External Appearance Overall Appearance: [x]Normal []Lesion/Mass/Crepitus Present Trachea midline: [x]Yes []No Thyroid [x]Normal []Enlarged []Tender []Mass []Absent Respiratory: Respiratory effort []Labored [x]Non-Labored [] Mechanically-Ventilated Auscultation []Clear []Crackles [x]Wheezes [x]Rhonchi Cardiovascular: Auscultation Rate: [x]Regular []Irregular []Tachycardia []Bradycardia Rhythm: [x]Regular []Irregular Murmur: []Present []Absent Extremities Peripheral Edema: []Present [x]Absent Varicosities: []Present [x]Absent Gastrointestinal: Abdomen Palpation: [x]Soft []Firm []Tender []Non-Tender []Distended [x]Non-distended Mass: []Present []Absent Bowel Sounds: []Present []Absent Hernia: []Present []Absent Liver/Spleen: []Hepatosplenomegaly [x]Organomegaly Absent Musculoskeletal: Inspection of Digits and Nails Cyanosis: []Present [x]Absent Clubbing: []Present []Absent Ischemia: []Present [x]Absent Infection: []Present []Absent Extremities ANDRADE Equally: Except ([]RUE []RLE []LUE []LLE) Strength/Tone: Intact and Normal ([x]RUE [x]RLE [x]LUE [x]LLE) Skin: Inspection [x]Normal []Rash []Lesion []Ulcer Palpation [x]Warm []Cool [x]Dry []Clammy []Nodules []Induration []Skin-tightening Cap-Refill: [] <3 sec [] >3 seconds (delayed) Neurologic: GCS EYE: 4 - Opens spontaneously GCS MOTOR: 6 - Obeys commands for movement GCS VERBAL: 5 - Oriented to person, place, time Total GCS: 15 [] Sensation grossly intact Psych: Mental Status Alert: [x]Yes [] No Oriented: []x0 []X1 []X2 [x]x3 Mood/Affect []Normal []Flat []Agitated []Depressed []Anxious []Calm []Sedated [x]NAD [facility] within last 24 hours- BMP: Recent Labs 02/20/243 02/21/24 0146 02/22/24 0017 NA 134* 136 136 K 4.6 4.4 4.3 CL 102 104 103 CO2 27 26 27 BUN 33* 34* 35* CREATININE 1.27* 1.19 1.12 CALCIUM 8.9 9.0 9.1 LFTs: No results for input(s): "AST", "ALT", "PROT", "ALBUMIN", "BILITOT", "BILIRUBINU", "ALKPHOS","LIPASE" in the last 72 hours. Glucose: Recent Labs 02/20/24 0412 02/20/24203202/21/2414502/22/24 0017 GLUCOSE 100 110* 102* 106* Procal: No results for input(s): "PROCAL" in the last 72 hours. CBC: Recent Labs 02/20/24203202/21/2414502/22/24 0017 WBC 6.2 5.4 6.3 HGB 8.0* 8.4* 8.6* HCT 25.2* 27.0* 27.9* PLT 293 243 242 MCV 92.6 94.4 95.2 RDW 16.3* 15.9* 16.0* ABGs: No results for input(s): "PHART", "EEJ7FPA", "PO2ART", "WGK1LXB", "SO2ART", "J6PMVSVU" in thelast 72 hours. Lactic Acid: Recent Labs 02/20/242032 LACTATE 1.1 INR: No results for input(s): "INR" in the last 72 hours. Cardiac Injury Profile: No results for input(s): "CKTOTAL", "CKMB", "TROPONINI" in the last 72 hours. Labs in Last 3 months: Lab Results Component Value Date TSH 10.053 (H) 02/09/2024 INR 1.0 02/05/2024 Microbiology- Urine Cx: Lab Results Component Value Date URINECX Normal urogenital severiano present 01/26/2024 URINECX 10,000-50,000 CFU/mL Aerococcus urinae (A) 01/26/2024 Assessment and Plan: Principal Problem: Shortness of breath Assessment: Acute exacerbation of COPD Hemoptysis: likely bronchitis Acute on chronic respiratory failure CAD/CABG 02/02/24 Hx of Afib s/p MAZE on DOAC Plan: Not improved following diuresis and scheduled nebs. Favor further treatment for AE COPD with abx and steroid burst. Send respiratory culture/pneumonia PCR. Will start with doxy pending further info from cultures. Add on procal, though would give abx even if negative. Short burst steroids Defer further chest imaging for now. Will need to follow up with his outpt wood window and door craftsman for further lung screening. Will scan sooner if he does not improve with treatment for AE COPD. Continue DOAC. Hemoptysis is essentially blood-tinged sputum, fairly minimal DVT Prophylaxis: Full anticoagulation BMI Classification: Body mass index is 19.19 kg/m . normal BMI 18.5-24.9 [email or web address] Phone: [phone] 422-220708-05-2024 Note* Care Coordination - Twyla Monique RN - 02/22/2024 2:13 PM EDT Addendum to Earlier Note: 1414 Received [facility] that [facility] Tcc messaged [facility] resident to see if pt is ready for discharge. Per 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 APRN, pt not quite ready today. [facility]. Tcc did not have CONSUMER SERVICES CONSULTANT initiate insurance auth just yet. Awaiting medical stability. [facility] [id number] Note* Care Coordination - Twyla Monique RN - 02/22/2024 2:13 PM EDT Addendum to Earlier Note: 1414 Received [facility] Tcc messaged [facility] resident to see if pt is ready for discharge. Per 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 APRN, pt not quite ready today. Possible discharge to [facility] tomorrow. Tcc did not have CONSUMER SERVICES CONSULTANT initiate insurance auth just yet. Awaiting medical stability. [id number] Consult [facility]* Aubrey Telles MD - 02/22/2024 2:13 PM EDT Images from the original note were not included. Internal Medicine: Pulmonary Initial Consult Name: Darin Breaux : 1945(79 y.o.) Date: 02/22/24 Subjective: Chief Complaint: Dyspnea HPI: 79yoM with O2-dependent COPD follows with Dr. Chencho Madison in [place] for pulmonology. He had a CABG x3v on 02/01. He was discharged home in stable condition on POD#7, but gradually worsened with his breathing. Presented to [place] and subsequently to [facility]. Here, he has been diuresed and placed on scheduled nebs. He does not feel better despite that. Overthe last day or two, he has started to have blood-tinged hemoptysis. Notably, 2 [address] his [address] surgery, he was started on oral antibiotics by his wood window and door craftsman. He states he got 3 pills in then went for CABG. He was given rifampin while admitted for CABG due to meningitis prophy per chart. He receives prednisone tapers about twice a year. He had a similar episode of hemoptysis a few weeks ago that resolved on its own. A CT Scan is visible on PACS from 07/2023. No obvious mass on that imaging. Past Medical History: Diagnosis Date AAA (abdominal aortic aneurysm) ([facility]) Arthritis Atrial fibrillation (HCC) Carotid artery stenosis COPD (chronic obstructive pulmonary disease) (HCC) Coronary artery disease GERD (gastroesophageal reflux disease) Hyperlipidemia Hypertension Myocardial infarction (HCC) Presence of permanent cardiac pacemaker Past Surgical History: Procedure Laterality Date ABDOMINAL AORTIC ANEURYSM REPAIR BACK SURGERY lumbar discectomy CARPAL TUNNEL RELEASE Right CATARACT EXTRACTION Bilateral COLONOSCOPY CORONARY ANGIOPLASTY WITH STENT PLACEMENT 1996 CORONARY STENT PLACEMENT HERNIA REPAIR Bilateral inguinal TRANSURETHRAL RESECTION OF PROSTATE US GUIDED CHEST TUBE PLACEMENT 02/18/2024 US GUIDED CHEST TUBE PLACEMENT 02/18/2024 Jarek Gustafson MD [facility] US IMAGING No family history on file. Social History Socioeconomic History Marital status: Spouse name: Not on file Number of children: Not on file Years of education: Not on file Highest education level: Not on file Occupational History Not on file Tobacco Use Smoking status: Every Day Current packs/day: 0.50 Average packs/day: 1.9 packs/day for 68.6 years (133.3 ttl pk-yrs) Types: Cigarettes Start date: 1955 Smokeless tobacco: Never Vaping Use Vaping status: Never Used Substance and Sexual Activity Alcohol use: Not Currently Comment: sober since 2006 Drug use: Never Sexual activity: Not on file Other Topics Concern Not on file Social History Narrative Not on file Social Determinants of Health Financial Resource Strain: Not on file Food Insecurity: Not on file Transportation Needs: Not on file Physical Activity: Not on file Stress: Not on file Social Connections: Not on file Intimate Partner Violence: Not At Risk (02/15/2024) Humiliation, Afraid, Rape, and Kick questionnaire Fear of Current or Ex-Partner: No Emotionally Abused: No Physically Abused: No Sexually Abused: No Housing Stability: Not on file Allergies Allergen Reactions Penicillins Hives Plavix [Clopidogrel] Hives Tamsulosin Other Blacked out Prior to Admission medications Medication Sig Start Date End Date Taking? Authorizing Provider acetaminophen (Tylenol) 500 MG tablet Take 2 tablets (1,000 mg) by mouth in the morning and 2 tablets (1,000 mg) at noon and 2 tablets (1,000 mg) before bedtime. 02/09/24 03/13/24 Yes ROBIN Gracia CNP albuterol 108 (90 Base) MCG/ACT inhaler Inhale 2 puffs every 6 hours as needed. 10/15/23 Historical Provider, amLODIPine (Norvasc) 5 MG tablet Take 5 mg by mouth daily. 12/31/23 Historical Provider, aspirin 81 MG EC tablet Take 81 mg by mouth daily. Historical Provider, atorvastatin (Lipitor) 80 MG tablet Take 1 tablet (80 mg) by mouth daily. 02/10/24 05/10/24 ROBIN Gracia CNP benzonatate (Tessalon) 200 MG capsule Take 200 mg by mouth 3 times daily as needed. 10/08/23 Historical Provider, cholecalciferol (Vitamin D-3) 50 MCG (2000 UT) capsule Take 2,000 Units by mouth daily. Historical Provider, Eliquis 5 MG tablet Take 5 mg by mouth 2 times daily. 01/13/24 Historical Provider, Ferrous Sulfate (IRON PO) Take 1 tablet by mouth daily. Historical Provider, fluticasone (Flonase) 50 MCG/ACT nasal spray Administer 2 sprays into each nostril daily. 12/31/23 Historical Provider, FOLIC ACID PO Take 1 tablet by mouth daily. Historical Provider, ipratropium-albuterol (Duo-Neb) 0.5-2.5 mg/3 mL nebulizer solution Take 3 mL by nebulization every 6 hours as needed. 09/10/23 Historical Provider, metoprolol tartrate (Lopressor) 50 MG tablet Take 1 tablet (50 mg) by mouth 2 times daily. 02/09/24 05/09/24 Wesley Magana, JOB ANALYSIS MANAGER - STRUCTURAL METAL FABRICATOR APPRENTICE pantoprazole (ProtoNix) 20 MG EC tablet Take 20 mg by mouth every morning (before breakfast). 01/02/24 Historical Provider, Spiriva Respimat 2.5 MCG/ACT inhaler 2 puffs daily. 12/31/23 Historical Provider, Symbicort 160-4.5 MCG/ACT inhaler Inhale 2 puffs in the morning and 2 puffs in the evening. 12/31/23istorical Provider, Objective: Oxygen Delivery: O2 Flow Rate (L/min): 3 L/min VITALS: BP 121/79 Pulse 91 Temp (!) 35.3 C (95.5 F) (Temporal) Resp 16 Wt 67.8 kg (149 lb 7.6 oz) SpO2 97% BMI 19.19 kg/m CURRENT PULSE OXIMETRY: SpO2: 97 % Review of Systems +blood tinged hemoptysis, +cough, no CP, no abdominal pain, +dyspnea Constitutional: General Appearance []WDWN []Obese []Cachectic [x]Thin []Ill Eyes: Inspection of Pupils/Irises Pupils round and react: [x]Yes []No Sclera: []Icteric [x]Non-Icteric Inspection of Conjunctiva/Lids Conjunctiva: []Injected [x]Non-Injected Lids: [x]Intact []Lesion Present ENT/Mouth: External Inspection of ears/nose [x] Normal [] Scar/Lesion/Mass Inspection of teeth/lips/gums Dentition: Lips/Gums: [x]Intact [x]Lesion Present Mucosa: [x][place] [x]Moist []Dry Neck: External Appearance Overall Appearance: [x]Normal []Lesion/Mass/Crepitus Present Trachea midline: [x]Yes []No Thyroid [x]Normal []Enlarged []Tender []Mass []Absent Respiratory: Respiratory effort []Labored [x]Non-Labored [] Mechanically-Ventilated Auscultation []Clear []Crackles [x]Wheezes [x]Rhonchi Cardiovascular: Auscultation Rate: [x]Regular []Irregular []Tachycardia []Bradycardia Rhythm: [x]Regular []Irregular Murmur: []Present []Absent Extremities Peripheral Edema: []Present [x]Absent Varicosities: []Present [x]Absent Gastrointestinal: Abdomen Palpation: [x]Soft []Firm []Tender []Non-Tender []Distended [x]Non-distended Mass: []Present []Absent Bowel Sounds: []Present []Absent Hernia: []Present []Absent Liver/Spleen: []Hepatosplenomegaly [x]Organomegaly Absent Musculoskeletal: Inspection of Digits and Nails Cyanosis: []Present [x]Absent Clubbing: []Present []Absent Ischemia: []Present [x]Absent Infection: []Present []Absent Extremities ANDRADE Equally: Except ([]RUE []RLE []LUE []LLE) Strength/Tone: Intact and Normal ([x]RUE [x]RLE [x]LUE [x]LLE) Skin: Inspection [x]Normal []Rash []Lesion []Ulcer Palpation [x]Warm []Cool [x]Dry []Clammy []Nodules []Induration []Skin-tightening Cap-Refill: [] <3 sec [] >3 seconds (delayed) Neurologic: GCS EYE: 4 - Opens spontaneously GCS MOTOR: 6 - Obeys commands for movement GCS VERBAL: 5 - Oriented to person, place, time Total GCS: 15 [] Sensation grossly intact Psych: Mental Status Alert: [x]Yes [] No Oriented: []x0 []X1 []X2 [x]x3 Mood/Affect []Normal []Flat []Agitated []Depressed []Anxious []Calm []Sedated [x]NAD Select Labs within last 24 hours- BMP: Recent Labs 02/20/24203202/21/24 0146 02/22/24 0017 NA 134* 136 136 K 4.6 4.4 4.3 CL 102 104 103 CO2 27 26 27 BUN 33* 34* 35* CREATININE 1.27* 1.19 1.12 CALCIUM 8.9 9.0 9.1 LFTs: No results for input(s): "AST", "ALT", "PROT", "ALBUMIN", "BILITOT", "BILIRUBINU", "ALKPHOS","LIPASE" in the last 72 hours. Glucose: Recent Labs 02/20/24 0412 02/20/24203202/21/2414502/22/24 0017 GLUCOSE 100 110* 102* 106* Procal: No results for input(s): "PROCAL" in the last 72 hours. CBC: Recent Labs 02/20/24203202/21/2414502/22/24 0017 WBC 6.2 5.4 6.3 HGB 8.0* 8.4* 8.6* HCT 25.2* 27.0* 27.9* PLT 293 243 242 MCV 92.6 94.4 95.2 RDW 16.3* 15.9* 16.0* ABGs: No results for input(s): "PHART", "LYD8ZBR", "PO2ART", "REM7FLN", "SO2ART", "Z1HJNURR" in thelast 72 hours. Lactic Acid: Recent Labs 02/20/242032 LACTATE 1.1 INR: No results for input(s): "INR" in the last 72 hours. Cardiac Injury Profile: No results for input(s): "CKTOTAL", "CKMB", "TROPONINI" in the last 72 hours. Labs in Last 3 months: Lab Results Component Value Date TSH 10.053 (H) 02/09/2024 INR 1.0 02/05/2024 Microbiology- Urine Cx: Lab Results Component Value Date URINECX Normal urogenital severiano present 01/26/2024 URINECX 10,000-50,000 CFU/mL Aerococcus urinae (A) 01/26/2024 Assessment and Plan: Principal Problem: Shortness of breath Assessment: Acute exacerbation of COPD Hemoptysis: likely bronchitis Acute on chronic respiratory failure CAD/CABG 02/02/24 Hx of Afib s/p MAZE on DOAC Plan: Not improved following diuresis and scheduled nebs. Favor further treatment for AE COPD with abx and steroid burst. Send respiratory culture/pneumonia PCR. Will start with doxy pending further info from cultures. Add on procal, though would give abx even if negative. Short burst steroids Defer further chest imaging for now. Will need to follow up with his outpt wood window and door craftsman for further lung screening. Will scan sooner if he does not improve with treatment for AE COPD. Continue DOAC. Hemoptysis is essentially blood-tinged sputum, fairly minimal DVT Prophylaxis: Full anticoagulation BMI Classification: Body mass index is 19.19 kg/m . normal BMI 18.5-24.9 * Freeman Lerner MD - 02/20/2024 8:47 PM EDT Images from the original note were not included. Internal Medicine: MICU Initial Consult Name: Darin Breaux : 1945(79 y.o.) Date: 02/20/24 Attending: Dr. Mitchell Subjective: Chief Complaint: Hypotension HPI: Darin Breaux is is a 79 y.o. M with a past medical history significant for CAD status post CABG (02/01 11/10; history of PCI), COPD (on 3 L O2), AAA status post endovascular repair, hypertension,A-fib (on Eliquis), GERD, tobacco use, who was admitted to [facility] from [facility] due to shortness of breath and chest pain in the setting of recent CABG x 3 on 02/[address] Vargas. On chart review, the patient's procedure was uncomplicated and he was medically optimized with plan for discharge home on postoperative day 7, though began to decline in terms of respiratory status. Pulmonology was following (though has since signed off); the patient is status post thoracentesis on the left with 1 L of hemorrhagic fluid removed on 02/16. CT surgery has been following with continued chest tube. Patient continues on DuoNebs, Spiriva and Symbicort for his breathing, and has been stable from a respiratory status recently. Over the course of admission at [facility], he has been borderline hypotensive with soft pressures throughout; ICU asked to evaluate given hypotension. On review of vitals, blood pressure of 60/39 though with subsequent improvement to SBP within the upper 80s to 90. Continues in A-fib though nontachycardic and on 3 L nasal cannula satting at 90%. Labs reviewed and fairly stable with mildly downtrending hemoglobin to 8; continued mild hyponatremia 132. Cardiology and ICU fellow at the bedside with POCUS ultrasound; no signs of effusion or pneumothorax though found to be fluid-down. Proceeding with stat x-ray for further evaluation as well. On evaluation, the patient is resting in bed comfortably and in no acute distress. He denies any lightheadedness or dizziness, as well as any chest pressure, though he does have superficial left-sided chest pain in the setting of his prior surgery (reproducible). He denies any shortness of breath, dyspnea, nausea, vomiting, abdominal pain, or lower extremity edema. Discussed with team and the patient the plan for IV albumin and 1 unit of blood given his dry status on exam (IVC collapsible on ultrasound). Consented for blood products and will continue to monitor throughout the night closely. Patient agreeable to plan with no additional questions or concerns at this time. Past Medical History: Diagnosis Date AAA (abdominal aortic aneurysm) (HCC) Arthritis Atrial fibrillation (HCC) Carotid artery stenosis COPD (chronic obstructive pulmonary disease) (HCC) Coronary artery disease GERD (gastroesophageal reflux disease) Hyperlipidemia Hypertension Myocardial infarction (HCC) Presence of permanent cardiac pacemaker Past Surgical History: Procedure Laterality Date ABDOMINAL AORTIC ANEURYSM REPAIR BACK SURGERY lumbar discectomy CARPAL TUNNEL RELEASE Right CATARACT EXTRACTION Bilateral COLONOSCOPY CORONARY ANGIOPLASTY WITH STENT PLACEMENT 1996 CORONARY STENT PLACEMENT HERNIA REPAIR Bilateral inguinal TRANSURETHRAL RESECTION OF PROSTATE US GUIDED CHEST TUBE PLACEMENT 02/18/2024 US GUIDED CHEST TUBE PLACEMENT 02/18/2024 Jarek Gustafson MD [facility] US IMAGING No family history on file. Social History Socioeconomic History Marital status: Spouse name: Not on file Number of children: Not on file Years of education: Not on file Highest education level: Not on file Occupational History Not on file Tobacco Use Smoking status: Every Day Current packs/day: 0.50 Average packs/day: 1.9 packs/day for 68.6 years (133.3 ttl pk-yrs) Types: Cigarettes Start date: 1955 Smokeless tobacco: Never Vaping Use Vaping status: Never Used Substance and Sexual Activity Alcohol use: Not Currently Comment: sober since 2006 Drug use: Never Sexual activity: Not on file Other Topics Concern Not on file Social History Narrative Not on file Social Determinants of Health Financial Resource Strain: Not on file Food Insecurity: Not on file Transportation Needs: Not on file Physical Activity: Not on file Stress: Not on file Social Connections: Not on file Intimate Partner Violence: Not At Risk (02/15/2024) Humiliation, Afraid, Rape, and Kick questionnaire Fear of Current or Ex-Partner: No Emotionally Abused: No Physically Abused: No Sexually Abused: No Housing Stability: Not on file Allergies Allergen Reactions Penicillins Hives Plavix [Clopidogrel] Hives Tamsulosin Other Blacked out Prior to Admission medications Medication Sig Start Date End Date Taking? Authorizing Provider acetaminophen (Tylenol) 500 MG tablet Take 2 tablets (1,000 mg) by mouth in the morning and 2 tablets (1,000 mg) at noon and 2 tablets (1,000 mg) before bedtime. 02/09/24 03/13/24 Yes ROBIN Gracia CNP albuterol 108 (90 Base) MCG/ACT inhaler Inhale 2 puffs every 6 hours as needed. 10/15/23 Historical Provider, amLODIPine (Norvasc) 5 MG tablet Take 5 mg by mouth daily. 12/31/23 Historical Provider, aspirin 81 MG EC tablet Take 81 mg by mouth daily. Historical Provider, atorvastatin (Lipitor) 80 MG tablet Take 1 tablet (80 mg) by mouth daily. 02/10/24 05/10/24 ROBIN Gracia CNP benzonatate (Tessalon) 200 MG capsule Take 200 mg by mouth 3 times daily as needed. 10/08/23 Historical Provider, cholecalciferol (Vitamin D-3) 50 MCG (2000 UT) capsule Take 2,000 Units by mouth daily. Historical Provider, Eliquis 5 MG tablet Take 5 mg by mouth 2 times daily. 01/13/24 Historical Provider, Ferrous Sulfate (IRON PO) Take 1 tablet by mouth daily. Historical Provider, fluticasone (Flonase) 50 MCG/ACT nasal spray Administer 2 sprays into each nostril daily. 12/31/23 Historical Provider, FOLIC ACID PO Take 1 tablet by mouth daily. Historical Provider, ipratropium-albuterol (Duo-Neb) 0.5-2.5 mg/3 mL nebulizer solution Take 3 mL by nebulization every 6 hours as needed. 09/10/23 Historical Provider, metoprolol tartrate (Lopressor) 50 MG tablet Take 1 tablet (50 mg) by mouth 2 times daily. 02/09/24 05/09/24 Wesley Magana JOB ANALYSIS MANAGER - STRUCTURAL METAL FABRICATOR APPRENTICE pantoprazole (ProtoNix) 20 MG EC tablet Take 20 mg by mouth every morning (before breakfast). 01/02/24 Historical Provider, Spiriva Respimat 2.5 MCG/ACT inhaler 2 puffs daily. 12/31/23 Historical Provider, Symbicort 160-4.5 MCG/ACT inhaler Inhale 2 puffs in the morning and 2 puffs in the evening. 12/31/23istorical Provider, Objective: Oxygen Delivery: O2 Flow Rate (L/min): 3 L/min VITALS: BP (!) 68/39 Pulse 73 Temp 36.1 C (96.9 F) (Temporal) Resp 20 Wt 145 lb 3.2 oz (65.9 kg) SpO2 90% BMI 18.64 kg/m CURRENT PULSE OXIMETRY: SpO2: 90 % Review of Systems Constitutional: Negative for chills and fever. Respiratory: Positive for cough (Chronic). Negative for shortness of breath. Cardiovascular: Negative for chest pain and leg swelling. Gastrointestinal: Negative for abdominal pain, constipation, diarrhea, nausea and vomiting. Genitourinary: Negative for difficulty urinating. Neurological: Negative for dizziness and light-headedness. Constitutional: General Appearance []WDWN []Obese []Cachectic [x]Thin []Ill Eyes: Inspection of Pupils/Irises Pupils round and react: [x]Yes []No Sclera: []Icteric [x]Non-Icteric Inspection of Conjunctiva/Lids Conjunctiva: []Injected [x]Non-Injected Lids: [x]Intact []Lesion Present ENT/Mouth: External Inspection of ears/nose [x] Normal [] Scar/Lesion/Mass Inspection of teeth/lips/gums Dentition: [x][place] Teeth []Dentures Lips/Gums: [x]Intact []Lesion Present Mucosa: [][place] [x]Moist []Dry Neck: External Appearance Overall Appearance: [x]Normal []Lesion/Mass/Crepitus Present Trachea midline: [x]Yes []No Thyroid [x]Normal []Enlarged []Tender []Mass []Absent Respiratory: Respiratory effort []Labored [x]Non-Labored [] Mechanically-Ventilated Auscultation []Clear [x]Crackles []Wheezes []Rhonchi Cardiovascular: Auscultation Rate: [x]Regular []Irregular []Tachycardia []Bradycardia Rhythm: []Regular [x]Irregular Murmur: []Present [x]Absent Extremities Peripheral Edema: []Present [x]Absent Varicosities: []Present [x]Absent Gastrointestinal: Abdomen Palpation: [x]Soft []Firm []Tender [x]Non-Tender []Distended [x]Non-distended Mass: []Present [x]Absent Bowel Sounds: [x]Present []Absent Hernia: []Present [x]Absent Liver/Spleen: []Hepatosplenomegaly [x]Organomegaly Absent Musculoskeletal: Inspection of Digits and Nails Cyanosis: []Present [x]Absent Clubbing: []Present [x]Absent Ischemia: []Present [x]Absent Infection: []Present [x]Absent Extremities ANDRADE Equally: Except ([]RUE []RLE []LUE []LLE) Strength/Tone: Intact and Normal ([]RUE []RLE []LUE []LLE) Skin: Inspection [x]Normal []Rash []Lesion []Ulcer Healing surgical incisions on thorax and upper abdomen - no bleeding; healing appropriately Palpation [x]Warm []Cool []Dry []Clammy []Nodules []Induration []Skin-tightening Cap-Refill: [x] <3 sec [] >3 seconds (delayed) Neurologic: GCS EYE: 4 - Opens spontaneously GCS MOTOR: 6 - Obeys commands for movement GCS VERBAL: 5 - Oriented to person, place, time Total GCS: 15 [x] Sensation grossly intact Psych: Mental Status Alert: [x]Yes [] No Oriented: []x0 []X1 []X2 [x]x3 Mood/Affect [x]Normal []Flat []Agitated []Depressed []Anxious []Calm []Sedated []NAD [facility] Labs within last 24 hours- BMP: Recent Labs 02/18/2410502/19/2414002/20/24 0412 NA 134* 131* 132* K 4.1 4.1 4.4 CL 101 97* 101 CO2 28 28 27 BUN 34* 35* 36* CREATININE 1.16 1.20 1.23 CALCIUM 8.7 8.9 8.9 LFTs: No results for input(s): "AST", "ALT", "PROT", "ALBUMIN", "BILITOT", "BILIRUBINU", "ALKPHOS","LIPASE" in the last 72 hours. Glucose: Recent Labs 02/18/2410502/19/2414002/20/24 0412 GLUCOSE 93 97 100 Procal: No results for input(s): "PROCAL" in the last 72 hours. CBC: Recent Labs 02/18/2410502/19/2414002/20/24 0412 WBC 7.2 7.1 6.3 HGB 8.8* 8.9* 8.1* HCT 28.0* 27.7* 25.5* PLT 345 343 284 MCV 93.3 92.0 91.7 RDW 16.5* 16.4* 16.1* ABGs: No results for input(s): "PHART", "UBD0LHB", "PO2ART", "DNQ2RWA", "SO2ART", "O4EMXJUS" in thelast 72 hours. Lactic Acid: No results for input(s): "LACTATE" in the last 72 hours. INR: No results for input(s): "INR" in the last 72 hours. Cardiac Injury Profile: No results for input(s): "CKTOTAL", "CKMB", "TROPONINI" in the last 72 hours. Labs in Last 3 months: Lab Results Component Value Date TSH 10.053 (H) 02/09/2024 INR 1.0 02/05/2024 Microbiology- Urine Cx: Lab Results Component Value Date URINECX Normal urogenital severiano present 01/26/2024 URINECX 10,000-50,000 CFU/mL Aerococcus urinae (A) 01/26/2024 Blood Cx: No results found for: "BLOODCX" Sputum Cx: No results found for: "RESPCULT" Gram Stain: No results found for: "LABGRAM" PNA PCR: No results found for: "HUMANMETAPNE" COVID19: No results found for: "COVID19" Legionella Ag: No results found for: "LEGIONELLAPN" Strep Ag: No results for input(s): "STREPPNEUMO" in the last 72 hours. Imaging- CXR IMPRESSION: Lines, tubes, and devices: Dual-chamber pacemaker with leads projecting over the right atrium and right ventricle. Left basilar pigtail drainage catheter again noted. Lungs and pleura: Hyperinflated lungs with inferior prominence in keeping with emphysema/COPD. Blunting of the left costophrenic angle suggesting a small effusion with associated atelectasis. Mild streaky bibasilar opacities likely atelectasis. No sizable pneumothorax. Cardiomediastinal silhouette: Stable enlarged cardiomediastinal silhouette. Status post median sternotomy. Left atrial appendage ligation clip and mediastinal clips noted. Other: Partially imaged stent of the abdominal descending aorta. Bony thorax is grossly unchanged. Assessment and Plan: Principal Problem: Shortness of breath Assessment: CAD, status post CABG x 3 on 02/01 Hypotension -stable and improving; likely 2/2 hypovolemia A-fib (on Eliquis) COPD Acute hypoxic respiratory failure secondary to bilateral pleural effusions status post CABG - stable History of hypertension Hyperlipidemia Tobacco abuse GERD Plan: Interval improvement in blood pressure to systolics in the upper 80s to 90s with maps above 65. Patient asymptomatic from a hypertension standpoint. Will proceed with 50 g of albumin given IVC collapse indicating low volume status and is 4 L down admission. Additionally, noted slight downtrend in hemoglobin, though with no obvious signs of hemorrhage apart from his chest tube, which which contains some serosanguineous and blood within the tube. Patient consented for blood products and will proceed with x 1 PRBC transfusion to help with volume status as well. Chest x-ray without any sizable pneumothorax; stable in appearance with left costophrenic small effusion and possible atelectasis. Respiratory status currently stable; continues on 3 L nasal cannula. Daily Lasix held in light of above resuscitation Okay to continue Eliquis Continue Dulera, Spiriva, and DuoNebs per pulmonology's prior recommendations Stable to remain on GMF for the time-being. ICU will reevaluate throughout the night to ensure continued stability GI Prophylaxis: Pantoprazole PO DVT Prophylaxis: Full anticoagulation - On Eliquis BMI Classification: Body mass index is 18.64 kg/m . normal BMI 18.5-24.9 Disposition: Remain on GMF Associated attestation - Red Mitchell MD - 02/21/2024 3:58 AM EDT I have personally seen the patient and examined along with the TACO/resident team. I personally obtained the borrego and relevent portions of the history and performed physical exam. I reviewed the chart including MAR , labs and radiology and discussed the patient's plan of action with the resident/TACO.This note reflects my plan of care as I have edited the note to reflect my findings and my assessment and plan. Date of service: 02/21/24 Discussed with: [x]Residents [x]Patient/Family [x]RN []Consultants []SW/TCC []Other []TACO Personally Reviewed: [x]Epic notes [x]Radiology studies [x]Labs [x]EKG []Other Assessment: -Hypotension -Anemia Plan: -Non-toxic appearing, quite negative for hospitalization. Diuretics held since yesterday. -Transfuse 1 PRBC -50 g albumin -avoid IVF -Continue current therapies otherwise -Stable to remain on floor * Diandra Khan MD - 02/17/2024 11:26 AM EDTAssociated Order(s): Inpatient consult to Pulmonology PULMONOLOGY CONSULT NOTE 02/17/2024 4:00 PM Reason for consult: COPD Inpatient consult to Pulmonology Consult performed by: Diadnra Khan MD Consult ordered by: 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, JOB ANALYSIS MANAGER - STRUCTURAL METAL FABRICATOR APPRENTICE Reason for consult: acute hypoxic respiratory failure Subjective: Admit Date: 02/15/2024 PCP: Estephania Alvarado HPI: Darin Breaux is a 79 year old make admitted from [facility] due to increase in shortness of breath and chest pain. Patient recently underwent CABG X 3, MAZE LAAL with atriclip on 02/[address] Vargas. Post operative course was uncomplicated an once medically stable he ws discharged to home on POD 7. After discharge his shortness of breath was worsening both rest and exertion. Alsoexperiencing chest pain. Patient was brought to the [facility] and CXR at the showed bilateral pleural effusion left more than the right. Also showed bibasilar atelectasis and/or infiltrates more prominent at the left lung base. Patient was seen and examined at bedside, not in acute distress. Remains on 4 L oxygen, normally baseline 3 L oxygen at home. Patient follows up with wood window and door craftsman, PFT done in 2020 showed FEV1 FVC ratio 32%. FEV1 1.30 L at 36% predicted value with significant bronchodilator response. Patient was using Spiriva Respimat, Symbicort and DuoNeb at home. Assessment and Plan: Acute hypoxic respiratory failure 2/2 bilateral pleural effusion s/p CABG History of severe obstruction/COPD. ABG showed CO2 42. Not retaining CO2. Bilateral pleural effusion s/p CABG x 3, maze, LAAL with artclip on 02/01. Patient received 1 dose of Lasix today. CAD s/p CABG x 3 on 02/01. Atrial fibrillation on Eliquis. Hypertension Hyperlipidemia GERD Current tobacco user Plan S/p thoracentesis on the left side. Removed 1 L hemorrhagic fluid. Currently on 4 L oxygen, wean oxygen with goal SpO2 of >90%. Home baseline 3 L oxygen. Resumed home DuoNeb, Spiriva and Symbicort. Albuterol inhaler as necessary. No significant wheezing present, less likely COPD exacerbation. CT surgery on board for post CABG management. Advised to follow with his wood window and door craftsman after discharge. Pulmonary team will continue to follow Portions of the information within this encounter were entered using an electronic dictation system. Best attempts were made to edit/proofread the information prior to note completion. Despite the review of information, some errors may remain. If there are questions related to the information contained within the note please contact the signing physician directly. Past Medical History: Past Medical History: Diagnosis Date AAA (abdominal aortic aneurysm) (HCC) Arthritis Atrial fibrillation (HCC) Carotid artery stenosis COPD (chronic obstructive pulmonary disease) (HCC) Coronary artery disease GERD (gastroesophageal reflux disease) Hyperlipidemia Hypertension Myocardial infarction (HCC) Presence of permanent cardiac pacemaker Past Surgical History: Past Surgical History: Procedure Laterality Date ABDOMINAL AORTIC ANEURYSM REPAIR BACK SURGERY lumbar discectomy CARPAL TUNNEL RELEASE Right CATARACT EXTRACTION Bilateral COLONOSCOPY CORONARY ANGIOPLASTY WITH STENT PLACEMENT 1996 CORONARY STENT PLACEMENT HERNIA REPAIR Bilateral inguinal TRANSURETHRAL RESECTION OF PROSTATE Allergies: Allergies Allergen Reactions Penicillins Hives Plavix [Clopidogrel] Hives Tamsulosin Other Blacked out Social History: Social History Substance and Sexual Activity Alcohol Use Not Currently Comment: sober since 2006 Social History Substance and Sexual Activity Drug Use Never Social History Tobacco Use Smoking Status Every Day Current packs/day: 0.50 Average packs/day: 1.9 packs/day for 68.6 years (133.3 ttl pk-yrs) Types: Cigarettes Start date: 1955 Smokeless Tobacco Never Family History: No family history on file. Review of Systems Constitutional: Negative. HENT: Negative. Eyes: Negative. Respiratory: Positive for cough and shortness of breath. Negative for chest tightness, wheezing andstridor. Cardiovascular: Positive for chest pain. Negative for palpitations. Gastrointestinal: Negative. Genitourinary: Negative. Musculoskeletal: Negative. Allergic/Immunologic: Negative. Neurological: Negative. Hematological: Negative. Psychiatric/Behavioral: Negative. Medications: Scheduled Meds:amLODIPine, 5 mg, Oral, Daily apixaban, 5 mg, Oral, BID aspirin, 81 mg, Oral, Daily atorvastatin, 80 mg, Oral, Daily [START ON 02/18/2024] furosemide, 40 mg, IntraVENous, Daily metoprolol tartrate, 50 mg, Oral, BID mometasone-formoterol, 2 puff, Inhalation, BID pantoprazole, 20 mg, Oral, qAM AC sodium chloride 0.9%, 5-40 mL, IntraVENous, q12h tiotropium, 2 puff, Inhalation, Daily Continuous Infusions: Data: [facility] within last 24 hours- BMP: Recent Labs 02/16/24 0004 02/17/24 0220 NA 136 136 K 3.8 4.1 CL 105 99 CO2 27 32* BUN 28* 29* CREATININE 1.04 1.38* CALCIUM 8.7 9.0 LFTs: Recent Labs 02/16/24 0004 02/17/24 0628 AST 27 -- ALT 33 -- PROT 5.3* -- ALBUMIN 2.8* -- BILITOT 0.3 -- BILIRUBINU -- Negative ALKPHOS 60 -- Glucose: Recent Labs 02/16/24 0004 02/17/24 0220 GLUCOSE 98 103* Procal: No results for input(s): "PROCAL" in the last 72 hours. CBC: Recent Labs 02/16/24 0004 02/17/24 0220 WBC 7.1 8.1 HGB 7.8* 8.4* HCT 25.8* 27.1* PLT 317 361 MCV 97.7 93.8 RDW 16.4* 16.5* ABGs: No results for input(s): "PHART", "GOB9PLM", "PO2ART", "JIM1IPK", "SO2ART", "D2CQKIXQ" in thelast 72 hours. Lactic Acid: No results for input(s): "LACTATE" in the last 72 hours. INR: No results for input(s): "INR" in the last 72 hours. Cardiac Injury Profile: No results for input(s): "CKTOTAL", "CKMB", "TROPONINI" in the last 72 hours. Labs in Last 3 months: Lab Results Component Value Date TSH 10.053 (H) 02/09/2024 INR 1.0 02/05/2024 Microbiology- Urine Cx: Lab Results Component Value Date URINECX Normal urogenital severiano present 01/26/2024 URINECX 10,000-50,000 CFU/mL Aerococcus urinae (A) 01/26/2024 Blood Cx: No results found for: "BLOODCX" Sputum Cx: No results found for: "RESPCULT" Gram Stain: No results found for: "LABGRAM" PNA PCR: No results found for: "HUMANMETAPNE" COVID19: No results found for: "COVID19" Legionella Ag: No results found for: "LEGIONELLAPN" Strep Ag: No results for input(s): "STREPPNEUMO" in the last 72 hours. Imaging- CXR portable: Results for orders placed during the hospital encounter of 02/15/24 XR chest 1 view Narrative [facility] Name[facility] 1945 [id number] Exam Date/Time: 02/17/2024 06:44 Procedure: XR CHEST 1 VIEW Ordering Provider: PATRICIA JENNIFER Reason For Exam: DYSPNEA EXAM TYPE: RADIOLOGIC EXAMINATION, CHEST, SINGLE VIEW FRONTAL (CXR SINGLE VIEW) EXAM DATE AND TIME: 02/17/2024 6:44 AM EDT INDICATION: Respiratory distress COMPARISON: 02/16/2024 TECHNIQUE: A single frontal view of the thorax was obtained and reviewed. Special views: None. Impression 1. Lines/Tubes/Devices/Hardware: Stable projection of pacer and leads. Please confirm position and function of any catheters or attempted catheters clinically. 2. Lungs: Persistent bibasilar infiltrates and effusion. Limited due to portable technique. Consider follow-up with PA and lateral chest for persistent symptoms. 3. Pleura: See above. No significant pneumothorax. 4. Heart and mediastinum: Limited due to technique. 5. Upper abdomen: No acute process seen. 6. Thorax:No acute bony process Report Dictated on Electronically Signed By: Artemio Field MD Electronically Signed Date/Time: 02/17/2024 7:22 AM EDT CXR (2V): Results for orders placed in visit on 01/26/24 XR chest 2 views Narrative Patient Name: [facility]AR[facility] BREAUX : 1945 [id number] Exam Date/Time: 01/26/2024 15:15 Procedure: XR CHEST 2 VIEWS Ordering Provider: VERNON BRANDY Reason For Exam: PREOPERATIVE ANESTHESIA CLINICAL INFORMATION: Preoperative study. PA and lateral views of the chest are provided without comparison. 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 The cardiac silhouette and mediastinum are otherwise within normal limits. The lungs are hyperexpanded but free of infiltrate or pleural effusion. The visualized bones and soft tissues are grossly unremarkable. Impression 1. Left chest wall pacer. 2. COPD. 3. No focal infiltrates. Report Dictated on Electronically Signed By: Micah Garcia MD Electronically Signed Date/Time: 01/29/2024 1:[address] Chest: No results found for this or any previous visit. CTA Chest: No results found for this or any previous visit. Other Studies: Reviewed and as per electronic record. CxR/CT images personally reviewed by me when available; salient findings summarized in A/P. Objective: Vitals: BP 96/67 Pulse 70 Temp 36.4 C (97.6 F) (Temporal) Resp 18 Wt 71.5 kg (157 lb 10.1 oz) SpO2 94% BMI 20.24 kg/m Physical Exam Constitutional: Appearance: He is ill-appearing. Eyes: Pupils: Pupils are equal, round, and reactive to light. Cardiovascular: Rate and Rhythm: Normal rate and regular rhythm. Pulses: Normal pulses. Heart sounds: Normal heart sounds. No murmur heard. No friction rub. No gallop. Pulmonary: Effort: Pulmonary effort is normal. No respiratory distress. Breath sounds: Normal breath sounds. No wheezing. Comments: Decreased bilateral breath sounds. Abdominal: General: Abdomen is flat. Musculoskeletal: General: Normal range of motion. Skin: General: Skin is warm. Capillary Refill: Capillary refill takes less than 2 seconds. Neurological: Mental Status: He is alert and oriented to person, place, and time. Diandra Khan MD PGY- 4 Pulmonary and Critical Care Medicine Associated attestation - Kavon Engle MD - 02/17/2024 5:43 PM EDT I saw and evaluated the patient, participating in the borrego portions of the service. I reviewed the resident s note. I agree with the resident s findings and plan. Patient with recent CABG by Dr Vargas. Readmit with dyspnea. PFT reviewed by me from 2020- severe disease Patient found to have large pleural effusions. CXR interpreted by me shows R> L pleural effusions Had thoracentesis today 1 liter red fluid off likely related to post OP effusion. Patient resting comfortably in chair. No wheeze. On baseline oxygen. Patient has history of severe COPD, on triple therapy as OP, multiple previous exacerbations, home oxygen use 3 lpm, ROMEO intolerant to CPAP, still smoked until CABG, previous intolerance to daliresp.Also had remote history lung nodules, small benign. Most of his chronic respiratory issues are at baseline, suspect dyspnea related to pleural effusions. Agree with ongoing effort with thoracentesis/diuresis. May need additional tap. No evidence of AE-COPD. Patient on appropriate inhaler therapy. Defer steroids/abx. Sees Dr Madison. NO evidence of hypercarbia on ABG, no need for nightly BiPAP, additionally he could not tolerate PAP Will follow Kavon Engle MD documented in this [facility]08-05-2024 Note* Care Coordination - Aimeeyoko Morrell - 02/22/2024 11:25 AM EDT Referral placed to SNFs [facility] via [facility] per TCC request. Await review and response regarding ability to accept. TCC notified. [id number]* Care Coordination - Aimeeyoko Morrell - 02/22/2024 11:25 AM EDT Referral placed to SNFs [facility] via [facility] per TCC request. Await review and response regarding ability to accept. TCC notified. [id number] Note* Care Coordination - Twyla Monique RN - 02/22/2024 10:39 AM EDT Images from the original note were not included. Care Management Progress Note 1039 This [facility] spoke with pt at bedside for snf choices. Pt states that he and his family are requesting facility in [place]. I told pt I would bring him a [place] SNF list but he asked that I call his grandson, Navjot, for choices. I spoke with Navjot by telephone. [place] SNF list was emailed to Navjot Doll at [email or web address]. Navjot also asked if I can look into getting a new O2 supplier for his grandfather. I called Oscar from [facility]. Pt is active with [employer] and has been with them x 32 months. Oscar states that pt will likely not be able to change O2 suppliers as he has been with this company almost three years. Oscar states that he did send an order for portable O2 tank to [facility] with pt's last admission. Tcc will look into this time permitting. Pt's grandson, Navjot, stated that he would have choices for me later today. Addendum 1113: Received phone call from Navjot Doll, pt's grandson. He has given his SNF choices. Tcc explained to Navjot about the home O2 situation and he verbalized understanding. Tcc taskedCMA to send referrals to [facility], [facility] and [facility]. Tcc will follow for response and initiate auth if able. Discharge Milestones and Delays Expected date/time: 02/22/[address] discharge order Complete med reconciliation Case mgmt discharge readiness Clinical Stability Diagnostic Workup Imaging Results Patient Education Complete Expected Discharge History Expected Date/Time Set By Reviewed At 02/22/2024 Hermann Lazo RN 02/19/2024 7:08 AM 02/19/2024 Olamide Tanner RN 02/17/2024 10:48 AM 02/18/2024 Mariely Vasquez APRN - STRUCTURAL METAL FABRICATOR APPRENTICE 02/16/2024 1:40 PM 02/17/2024 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 APRN - STRUCTURAL METAL FABRICATOR APPRENTICE 02/15/2024 3:07 PM Length of Stay (Days): 6 GMLOS: 3.1 [id number] Note* Care Coordination - Twyla Monique RN - 02/22/2024 10:39 AM EDT Images from the original note were not included. Care Management Progress Note 1039 This tcc spoke with pt at bedside for snf choices. Pt states that he and his family are requesting facility in [place]. I told pt I would bring him a [place] SNF list but he asked that I call his grandson, Navjot, for choices. I spoke with Navjot by telephone. [place] SNF list was emailed to Navjot Carey at [email or web address]. Navjot also asked if I can look into getting a new O2 supplier for his grandfather. I called Oscar from [facility]. Pt is active with [employer] and has been with them x 32 months. Oscar states that pt will likely not be able to change O2 suppliers as he has been with this company almost three years. Oscar states that he did send an order for portable O2 tank to [employer] with pt's last admission. Tcc will look into this time permitting. Pt's grandson, Navjot, stated that he would have choices for me later today. Addendum 1113: Received phone call from Navjot Doll, pt's grandson. He has given his SNF choices. Tcc explained to Navjot about the home O2 situation and he verbalized understanding. Tcc taskedCMA to send referrals to [facility], [facility] and [facility]. Tcc will follow for response and initiate auth if able. Discharge Milestones and Delays Expected date/time: 02/22/[address] discharge order Complete med reconciliation Case mgmt discharge readiness Clinical Stability Diagnostic Workup Imaging Results Patient Education Complete Expected Discharge History Expected Date/Time Set By Reviewed At 02/22/2024 Hermann Lazo RN 02/19/2024 7:08 AM 02/19/2024 Olamide Tanner RN 02/17/2024 10:48 AM 02/18/2024 Mariely Vasquez, JOB ANALYSIS MANAGER - STRUCTURAL METAL FABRICATOR APPRENTICE 02/16/2024 1:40 PM 02/17/2024 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 APRN - STRUCTURAL METAL FABRICATOR APPRENTICE 02/15/2024 3:07 PM Length of Stay (Days): 6 GMLOS: 3.1 [facility] [id number] Plan of care note* Care Plan - Donna Lutz RN - 02/21/2024 8:31 PM EDT Problem: Pain - Adult Goal: Verbalizes/displays adequate comfort level or baseline comfort level Outcome: Progressing Problem: Safety - Adult Goal: Free from fall injury Outcome: Progressing Problem: Discharge Planning Goal: Discharge to home or other facility with appropriate resources Outcome: Progressing Problem: Chronic Conditions and Co-morbidities Goal: Patient's chronic conditions and co-morbidity symptoms are monitored and maintained or improved Outcome: Progressing [facility] [id number] Consult note* Freeman Lerner MD - 02/20/2024 8:47 PM EDT Images from the original note were not included. Internal Medicine: MICU Initial Consult Name: Darin Breaux : 1945(79 y.o.) Date: 02/20/24 Attending: Dr. Mitchell Subjective: Chief Complaint: Hypotension HPI: Darin Breaux is is a 79 y.o. M with a past medical history significant for CAD status post CABG (02/01 11/10; history of PCI), COPD (on 3 L O2), AAA status post endovascular repair, hypertension,A-fib (on Eliquis), GERD, tobacco use, who was admitted to [facility] from [facility] due to shortness of breath and chest pain in the setting of recent CABG x 3 on 02/[address] Vargas. On chart review, the patient's procedure was uncomplicated and he was medically optimized with plan for discharge home on postoperative day 7, though began to decline in terms of respiratory status. Pulmonology was following (though has since signed off); the patient is status post thoracentesis on the left with 1 L of hemorrhagic fluid removed on 02/16. CT surgery has been following with continued chest tube. Patient continues on DuoNebs, Spiriva and Symbicort for his breathing, and has been stable from a respiratory status recently. Over the course of admission at [facility], he has been borderline hypotensive with soft pressures throughout; ICU asked to evaluate given hypotension. On review of vitals, blood pressure of 60/39 though with subsequent improvement to SBP within the upper 80s to 90. Continues in A-fib though nontachycardic and on 3 L nasal cannula satting at 90%. Labs reviewed and fairly stable with mildly downtrending hemoglobin to 8; continued mild hyponatremia 132. Cardiology and ICU fellow at the bedside with POCUS ultrasound; no signs of effusion or pneumothorax though found to be fluid-down. Proceeding with stat x-ray for further evaluation as well. On evaluation, the patient is resting in bed comfortably and in no acute distress. He denies any lightheadedness or dizziness, as well as any chest pressure, though he does have superficial left-sided chest pain in the setting of his prior surgery (reproducible). He denies any shortness of breath, dyspnea, nausea, vomiting, abdominal pain, or lower extremity edema. Discussed with team and the patient the plan for IV albumin and 1 unit of blood given his dry status on exam (IVC collapsible on ultrasound). Consented for blood products and will continue to monitor throughout the night closely. Patient agreeable to plan with no additional questions or concerns at this time. Past Medical History: Diagnosis Date AAA (abdominal aortic aneurysm) (HCC) Arthritis Atrial fibrillation (HCC) Carotid artery stenosis COPD (chronic obstructive pulmonary disease) (HCC) Coronary artery disease GERD (gastroesophageal reflux disease) Hyperlipidemia Hypertension Myocardial infarction (HCC) Presence of permanent cardiac pacemaker Past Surgical History: Procedure Laterality Date ABDOMINAL AORTIC ANEURYSM REPAIR BACK SURGERY lumbar discectomy CARPAL TUNNEL RELEASE Right CATARACT EXTRACTION Bilateral COLONOSCOPY CORONARY ANGIOPLASTY WITH STENT PLACEMENT 1996 CORONARY STENT PLACEMENT HERNIA REPAIR Bilateral inguinal TRANSURETHRAL RESECTION OF PROSTATE US GUIDED CHEST TUBE PLACEMENT 02/18/2024 US GUIDED CHEST TUBE PLACEMENT 02/18/2024 Jarek Gustafson MD [facility] US IMAGING No family history on file. Social History Socioeconomic History Marital status: Spouse name: Not on file Number of children: Not on file Years of education: Not on file Highest education level: Not on file Occupational History Not on file Tobacco Use Smoking status: Every Day Current packs/day: 0.50 Average packs/day: 1.9 packs/day for 68.6 years (133.3 ttl pk-yrs) Types: Cigarettes Start date: 1955 Smokeless tobacco: Never Vaping Use Vaping status: Never Used Substance and Sexual Activity Alcohol use: Not Currently Comment: sober since 2006 Drug use: Never Sexual activity: Not on file Other Topics Concern Not on file Social History Narrative Not on file Social Determinants of Health Financial Resource Strain: Not on file Food Insecurity: Not on file Transportation Needs: Not on file Physical Activity: Not on file Stress: Not on file Social Connections: Not on file Intimate Partner Violence: Not At Risk (02/15/2024) Humiliation, Afraid, Rape, and Kick questionnaire Fear of Current or Ex-Partner: No Emotionally Abused: No Physically Abused: No Sexually Abused: No Housing Stability: Not on file Allergies Allergen Reactions Penicillins Hives Plavix [Clopidogrel] Hives Tamsulosin Other Blacked out Prior to Admission medications Medication Sig Start Date End Date Taking? Authorizing Provider acetaminophen (Tylenol) 500 MG tablet Take 2 tablets (1,000 mg) by mouth in the morning and 2 tablets (1,000 mg) at noon and 2 tablets (1,000 mg) before bedtime. 02/09/24 03/13/24 Yes ROBIN Gracia CNP albuterol 108 (90 Base) MCG/ACT inhaler Inhale 2 puffs every 6 hours as needed. 10/15/23 Historical Provider, amLODIPine (Norvasc) 5 MG tablet Take 5 mg by mouth daily. 12/31/23 Historical Provider, aspirin 81 MG EC tablet Take 81 mg by mouth daily. Historical Provider, atorvastatin (Lipitor) 80 MG tablet Take 1 tablet (80 mg) by mouth daily. 02/10/24 05/10/24 ROBIN Gracia CNP benzonatate (Tessalon) 200 MG capsule Take 200 mg by mouth 3 times daily as needed. 10/08/23 Historical Provider, cholecalciferol (Vitamin D-3) 50 MCG (2000 UT) capsule Take 2,000 Units by mouth daily. Historical Provider, Eliquis 5 MG tablet Take 5 mg by mouth 2 times daily. 01/13/24 Historical Provider, Ferrous Sulfate (IRON PO) Take 1 tablet by mouth daily. Historical Provider, fluticasone (Flonase) 50 MCG/ACT nasal spray Administer 2 sprays into each nostril daily. 12/31/23 Historical Provider, FOLIC ACID PO Take 1 tablet by mouth daily. Historical Provider, ipratropium-albuterol (Duo-Neb) 0.5-2.5 mg/3 mL nebulizer solution Take 3 mL by nebulization every 6 hours as needed. 09/10/23 Historical Provider, metoprolol tartrate (Lopressor) 50 MG tablet Take 1 tablet (50 mg) by mouth 2 times daily. 02/09/24 05/09/24 Wesley Magana, JOB ANALYSIS MANAGER - STRUCTURAL METAL FABRICATOR APPRENTICE pantoprazole (ProtoNix) 20 MG EC tablet Take 20 mg by mouth every morning (before breakfast). 01/02/24 Historical Provider, Spiriva Respimat 2.5 MCG/ACT inhaler 2 puffs daily. 12/31/23 Historical Provider, Symbicort 160-4.5 MCG/ACT inhaler Inhale 2 puffs in the morning and 2 puffs in the evening. 12/31/23istorical Provider, Objective: Oxygen Delivery: O2 Flow Rate (L/min): 3 L/min VITALS: BP (!) 68/39 Pulse 73 Temp 36.1 C (96.9 F) (Temporal) Resp 20 Wt 145 lb 3.2 oz (65.9 kg) SpO2 90% BMI 18.64 kg/m CURRENT PULSE OXIMETRY: SpO2: 90 % Review of Systems Constitutional: Negative for chills and fever. Respiratory: Positive for cough (Chronic). Negative for shortness of breath. Cardiovascular: Negative for chest pain and leg swelling. Gastrointestinal: Negative for abdominal pain, constipation, diarrhea, nausea and vomiting. Genitourinary: Negative for difficulty urinating. Neurological: Negative for dizziness and light-headedness. Constitutional: General Appearance []WDWN []Obese []Cachectic [x]Thin []Ill Eyes: Inspection of Pupils/Irises Pupils round and react: [x]Yes []No Sclera: []Icteric [x]Non-Icteric Inspection of Conjunctiva/Lids Conjunctiva: []Injected [x]Non-Injected Lids: [x]Intact []Lesion Present ENT/Mouth: External Inspection of ears/nose [x] Normal [] Scar/Lesion/Mass Inspection of teeth/lips/gums Dentition: [x][place] Teeth []Dentures Lips/Gums: [x]Intact []Lesion Present Mucosa: [][place] [x]Moist []Dry Neck: External Appearance Overall Appearance: [x]Normal []Lesion/Mass/Crepitus Present Trachea midline: [x]Yes []No Thyroid [x]Normal []Enlarged []Tender []Mass []Absent Respiratory: Respiratory effort []Labored [x]Non-Labored [] Mechanically-Ventilated Auscultation []Clear [x]Crackles []Wheezes [][place] Cardiovascular: Auscultation Rate: [x]Regular []Irregular []Tachycardia []Bradycardia Rhythm: []Regular [x]Irregular Murmur: []Present [x]Absent Extremities Peripheral Edema: []Present [x]Absent Varicosities: []Present [x]Absent Gastrointestinal: Abdomen Palpation: [x]Soft []Firm []Tender [x]Non-Tender []Distended [x]Non-distended Mass: []Present [x]Absent Bowel Sounds: [x]Present []Absent Hernia: []Present [x]Absent Liver/Spleen: []Hepatosplenomegaly [x]Organomegaly Absent Musculoskeletal: Inspection of Digits and Nails Cyanosis: []Present [x]Absent Clubbing: []Present [x]Absent Ischemia: []Present [x]Absent Infection: []Present [x]Absent Extremities ANDRADE Equally: Except ([]RUE []RLE []LUE []LLE) Strength/Tone: Intact and Normal ([]RUE []RLE []LUE []LLE) Skin: Inspection [x]Normal []Rash []Lesion []Ulcer Healing surgical incisions on thorax and upper abdomen - no bleeding; healing appropriately Palpation [x]Warm []Cool []Dry []Clammy []Nodules []Induration []Skin-tightening Cap-Refill: [x] <3 sec [] >3 seconds (delayed) Neurologic: GCS EYE: 4 - Opens spontaneously GCS MOTOR: 6 - Obeys commands for movement GCS VERBAL: 5 - Oriented to person, place, time Total GCS: 15 [x] Sensation grossly intact Psych: Mental Status Alert: [x]Yes [] No Oriented: []x0 []X1 []X2 [x]x3 Mood/Affect [x]Normal []Flat []Agitated []Depressed []Anxious []Calm []Sedated []NAD [facility] within last 24 hours- BMP: Recent Labs 02/18/2410502/19/2414002/20/24 0412 NA 134* 131* 132* K 4.1 4.1 4.4 CL 101 97* 101 CO2 28 28 27 BUN 34* 35* 36* CREATININE 1.16 1.20 1.23 CALCIUM 8.7 8.9 8.9 LFTs: No results for input(s): "AST", "ALT", "PROT", "ALBUMIN", "BILITOT", "BILIRUBINU", "ALKPHOS","LIPASE" in the last 72 hours. Glucose: Recent Labs 02/18/2410502/19/2414002/20/24 0412 GLUCOSE 93 97 100 Procal: No results for input(s): "PROCAL" in the last 72 hours. CBC: Recent Labs 02/18/2410502/19/2414002/20/24 0412 WBC 7.2 7.1 6.3 HGB 8.8* 8.9* 8.1* HCT 28.0* 27.7* 25.5* PLT 345 343 284 MCV 93.3 92.0 91.7 RDW 16.5* 16.4* 16.1* ABGs: No results for input(s): "PHART", "GLE4OQB", "PO2ART", "XHQ5NWL", "SO2ART", "M9DZFCRL" in thelast 72 hours. Lactic Acid: No results for input(s): "LACTATE" in the last 72 hours. INR: No results for input(s): "INR" in the last 72 hours. Cardiac Injury Profile: No results for input(s): "CKTOTAL", "CKMB", "TROPONINI" in the last 72 hours. Labs in Last 3 months: Lab Results Component Value Date TSH 10.053 (H) 02/09/2024 INR 1.0 02/05/2024 Microbiology- Urine Cx: Lab Results Component Value Date URINECX Normal urogenital severiano present 01/26/2024 URINECX 10,000-50,000 CFU/mL Aerococcus urinae (A) 01/26/2024 Blood Cx: No results found for: "BLOODCX" Sputum Cx: No results found for: "RESPCULT" Gram Stain: No results found for: "LABGRAM" PNA PCR: No results found for: "HUMANMETAPNE" COVID19: No results found for: "COVID19" Legionella Ag: No results found for: "LEGIONELLAPN" Strep Ag: No results for input(s): "STREPPNEUMO" in the last 72 hours. Imaging- CXR IMPRESSION: Lines, tubes, and devices: Dual-chamber pacemaker with leads projecting over the right atrium and right ventricle. Left basilar pigtail drainage catheter again noted. Lungs and pleura: Hyperinflated lungs with inferior prominence in keeping with emphysema/COPD. Blunting of the left costophrenic angle suggesting a small effusion with associated atelectasis. Mild streaky bibasilar opacities likely atelectasis. No sizable pneumothorax. Cardiomediastinal silhouette: Stable enlarged cardiomediastinal silhouette. Status post median sternotomy. Left atrial appendage ligation clip and mediastinal clips noted. Other: Partially imaged stent of the abdominal descending aorta. Bony thorax is grossly unchanged. Assessment and Plan: Principal Problem: Shortness of breath Assessment: CAD, status post CABG x 3 on 02/01 Hypotension -stable and improving; likely 2/2 hypovolemia A-fib (on Eliquis) COPD Acute hypoxic respiratory failure secondary to bilateral pleural effusions status post CABG - stable History of hypertension Hyperlipidemia Tobacco abuse GERD Plan: Interval improvement in blood pressure to systolics in the upper 80s to 90s with maps above 65. Patient asymptomatic from a hypertension standpoint. Will proceed with 50 g of albumin given IVC collapse indicating low volume status and is 4 L down admission. Additionally, noted slight downtrend in hemoglobin, though with no obvious signs of hemorrhage apart from his chest tube, which which contains some serosanguineous and blood within the tube. Patient consented for blood products and will proceed with x 1 PRBC transfusion to help with volume status as well. Chest x-ray without any sizable pneumothorax; stable in appearance with left costophrenic small effusion and possible atelectasis. Respiratory status currently stable; continues on 3 L nasal cannula. Daily Lasix held in light of above resuscitation Okay to continue Eliquis Continue Dulera, Spiriva, and DuoNebs per pulmonology's prior recommendations Stable to remain on GMF for the time-being. ICU will reevaluate throughout the night to ensure continued stability GI Prophylaxis: Pantoprazole PO DVT Prophylaxis: Full anticoagulation - On Eliquis BMI Classification: Body mass index is 18.64 kg/m . normal BMI 18.5-24.9 Disposition: Remain on GMF Associated attestation - Red Mitchell MD - 02/21/2024 3:58 AM EDT I have personally seen the patient and examined along with the TACO/resident team. I personally obtained the borrego and relevent portions of the history and performed physical exam. I reviewed the chart including MAR , labs and radiology and discussed the patient's plan of action with the resident/TACO.This note reflects my plan of care as I have edited the note to reflect my findings and my assessment and plan. Date of service: 02/21/24 Discussed with: [x]Residents [x]Patient/Family [x]RN []Consultants []SW/TCC []Other []TACO Personally Reviewed: [x]Epic notes [x]Radiology studies [x]Labs [x]EKG []Other Assessment: -Hypotension -Anemia Plan: -Non-toxic appearing, quite negative for hospitalization. Diuretics held since yesterday. -Transfuse 1 PRBC -50 g albumin -avoid IVF -Continue current therapies otherwise -Stable to remain on floor [facility] Work Phone: 1(368) 841-838308-03-2024 Nurse Note* Misty Aragon RN - 02/20/2024 8:30 PM EDT This RN was notified by [facility] for a blood pressure of 68/39 (49) at 193. Upon assessment, pt deniesHA, dizziness, CP. Confirms he has intermittent exertional dyspnea but denied current SOB. Pt is A+Ox4. Chest tube assessed. No noted crepitus or air-leak. Output serosanguinous as it had been previously. No excessive output noted since last recorded output. This RN moved the BP cuff from the LUE to the RUE and re-assessed BP, which was 83/38 (46) at 194.Monitor alarming at this time stating "pacer not capturing". 12-lead ecg ordered per protocol by this RN at 194. Cardiology notified at 1945 of current status via secure chat. Dr. East notified via secure chat at 1955 of the above findings, as well as resulted 12-lead ecg results. Dr. East ca lled 1Central extension and requested to message MICU to come to bedside to assess patient. Rapid response contacted approx. 1954. MICU to bedside 2015. CXR ordered. Dr. Carlson performed ultrasound. STAT labs ordered and sent. Given down-trending hgb, 1 unit PRBC ordered. 50g albumin also ordered. Blood consent signed by patient. Patient with no complaints at this time. Vital signs improving (see vital sign documentation). [id number] Nurse Note* Misty Aragon RN - 02/20/2024 8:16 PM EDT MICU at bedside evaluating patient. [facility] [id number] Note* Rapid Response Note - Darlene Duff RN - 02/20/2024 8:09 PM EDT 1950 - called to see patient for hypotension with BP 68/39. Upon our assessment patient is awake and alert x 4. Repeat BP on HAILEY 80/55(61), HR 77 (paced), SpO2 96% on 3L NC. Patient denies discomfortof any kind, denies SOB. Left chest tube in place- to water seal. No crepitus or air leak noted. Bedside nurse in contact with physician prior to our arrival and MICU team on way to bedside for further evaluation. 2014 - Dr. Carlson at bedside [place] [id number] Note* Rapid Response Note - Darlene Duff RN - 02/20/2024 8:09 PM EDT 1950 - called to see patient for hypotension with BP 68/39. Upon our assessment patient is awake and alert x 4. Repeat BP on HAILEY 80/55(61), HR 77 (paced), SpO2 96% on 3L NC. Patient denies discomfortof any kind, denies SOB. Left chest tube in place- to water seal. No crepitus or air leak noted. Bedside nurse in contact with physician prior to our arrival and MICU team on way to bedside for further evaluation. 2014 - Dr. Carlson at bedside [facility] [id number] Plan of care note* Care Plan - Suad Gomez RN - 02/20/2024 12:48 PM EDT Problem: Pain - Adult Goal: Verbalizes/displays adequate comfort level or baseline comfort level Outcome: Progressing Problem: Safety - Adult Goal: Free from fall injury Outcome: Progressing The patient is Moderately Stable - Low risk of patient condition declining or worsening The patient's goals for the shift include safety The clinical goals for the shift include safety Over the shift, the patient did not make progress toward the following goals. Barriers to progression include na. Recommendations to address these barriers include na . [facility] [id number] Plan of care note* Care Plan - Mely Obregon RN - 02/19/2024 10:08 PM EDT The patient is Moderately Stable - Low risk of patient condition declining or worsening The patient's goals for the shift include safety The clinical goals for the shift include safety Over the shift, the patient did not make progress toward the following goals. Barriers to progression include none. Recommendations to address these barriers include continue current care plan. [facility] HospitalOgvoqg04-23-3852 Plan of care note* Care Plan - Mely Obregon RN - 02/19/2024 9:59 PM EDT The patient is Moderately Stable - Low risk of patient condition declining or worsening The patient's goals for the shift include safety The clinical goals for the shift include safety Over the shift, the patient did not make progress toward the following goals. Barriers to progression include none. Recommendations to address these barriers include continue current care plan. [facility] [id number] Note* Care Coordination - Hermann Lazo RN - 02/19/2024 10:35 AM EDT Images from the original note were not included. Care Management Progress Note Remains on 1C. Chest tube to waterseal. NC 3L. B/P soft. Toprol and Lasix held. TCC met with pt at bedside and informed of therapy recommending SNF. Pt agreeable when medically ready. List given withexplanation of 5 star rating and [facility]. Pt plans to discuss with son and let me know choices. TCC to follow. Discharge Milestones and Delays Expected date/time: 02/22/[address] discharge order Complete med reconciliation Case mgmt discharge readiness Clinical Stability Diagnostic Workup Patient Education Complete Expected Discharge History Expected Date/Time Set By Reviewed At 02/22/2024 Hermann Lazo RN 02/19/2024 7:08 AM 02/19/2024 Olamide Tanner RN 02/17/2024 10:48 AM 02/18/2024 Mariely Vasquez APRN - STRUCTURAL METAL FABRICATOR APPRENTICE 02/16/2024 1:40 PM 02/17/2024 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 APRN - STRUCTURAL METAL FABRICATOR APPRENTICE 02/15/2024 3:07 PM Length of Stay (Days): 3 GMLOS: 3.1 [facility] [id number] Note* Care Coordination - Hermann Lazo RN - 02/19/2024 10:35 AM EDT Images from the original note were not included. Care Management Progress Note Remains on 1C. Chest tube to waterseal. NC 3L. B/P soft. Toprol and Lasix held. TCC met with pt at bedside and informed of therapy recommending SNF. Pt agreeable when medically ready. List given withexplanation of 5 star rating and [facility] Collaboration. Pt plans to discuss with son and let me know choices. TCC to follow. Discharge Milestones and Delays Expected date/time: 02/22/[address] discharge order Complete med reconciliation Case mgmt discharge readiness Clinical Stability Diagnostic Workup Patient Education Complete Expected Discharge History Expected Date/Time Set By Reviewed At 02/22/2024 Hermann Lazo RN 02/19/2024 7:08 AM 02/19/2024 Olamide Tanner RN 02/17/2024 10:48 AM 02/18/2024 Mariely Vasquez APRN - STRUCTURAL METAL FABRICATOR APPRENTICE 02/16/2024 1:40 PM 02/17/2024 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 APRN - STRUCTURAL METAL FABRICATOR APPRENTICE 02/15/2024 3:07 PM Length of Stay (Days): 3 GMLOS: 3.1 [facility] [id number] Plan of care note* Care Plan - Marquis Cevallos Jr., RN - 02/18/2024 11:48 PM EDT Problem: Pain - Adult Goal: Verbalizes/displays adequate comfort level or baseline comfort level Outcome: Progressing Problem: Safety - Adult Goal: Free from fall injury Outcome: Progressing Problem: Discharge Planning Goal: Discharge to home or other facility with appropriate resources Outcome: Progressing [facility] [id number] Note* Post-Procedure Note - Jarek Gustafson MD - 02/18/2024 5:02 PM EDT Interventional Radiology Brief Postprocedure Note Procedure: US guided chest tube placement Preprocedure Diagnosis: US-guided left chest tube placement Postprocedure Diagnosis: no change Staff: Staff Role Jarek Gustafson MD Radiologist Charis Berry, automatic blocker Nurse Rodney Milton [facility] Eyewear Manufacturing Tech Description of procedure: US-guided 8F left chest tube placement Estimated Blood Loss: Minimal Medications Medications (Filter: Administrations occurring from 1702 to 1702 on 02/18/24) As of 02/18/24 1702 None Specimens 10 mL serosanguinous sample was aspirated and sent to the lab for evaluation. Testing per primary service Findings: moderate left pleural effusion Plan: routine postop care Complications: None Anesthesia: local See detailed result report with images in PACS. The patient tolerated the procedure well without incident or complication and is in stable condition. Jarek Gustafson MD Interventional Radiology Pager: [employer] Work Phone: 1(383) 550-241408-01-2024 Note* Post-Procedure Note - Jarek Gustafson MD - 02/18/2024 5:02 PM EDT Interventional Radiology Brief Postprocedure Note Procedure: US guided chest tube placement Preprocedure Diagnosis: US-guided left chest tube placement Postprocedure Diagnosis: no change Staff: Staff Role Jarek Gustafson MD Radiologist Charis Berry, automatic blocker Nurse Rodney Milton RDRI [employer] Manufacturing Tech Description of procedure: US-guided 8F left chest tube placement Estimated Blood Loss: Minimal Medications Medications (Filter: Administrations occurring from 1702 to 1702 on 02/18/24) As of 02/18/24 170 None Specimens 10 mL serosanguinous sample was aspirated and sent to the lab for evaluation. Testing per primary service Findings: moderate left pleural effusion Plan: routine postop care Complications: None Anesthesia: local See detailed result report with images in PACS. The patient tolerated the procedure well without incident or complication and is in stable condition. Jarek Gustafson MD Interventional Radiology Pager: [employer] Work Phone: 1(818) 703-205108-01-2024 Note* Perioperative Nursing Note - Charis Berry RN - 02/18/2024 2:38 PM EDT Patient arrived to Radiology department from for Ultrasound guided Chest Tube placement. Dr. Gustafson in to discuss procedure with patient and informed consent obtained. Patient on bed. corporate risk analyst applied, vital signs obtained and monitored throughout procedure. 8 Fr. Pigtail drain placed at left lower back, 10ml bloody drainage aspirated,secured with suture, Stay-Fix dressing and 2 large Tegaderm. Attached to Atrium. Patient tolerated procedure well. Returned to supine position in bed with raised HOB. Patient in noapparent distress. No complaints voiced.Report called to RN. Patient returned to unit via bed byTransportation personnel. Specimen labeled and taken to lab for 72 hour hold. [id number] Note* Perioperative Nursing Note - Charis Berry RN - 02/18/2024 2:38 PM EDT Patient arrived to Radiology department from for Ultrasound guided Chest Tube placement. Dr. Gustafson in to discuss procedure with patient and informed consent obtained. Patient on bed. corporate risk analyst applied, vital signs obtained and monitored throughout procedure. 8 Fr. Pigtail drain placed at left lower back, 10ml bloody drainage aspirated,secured with suture, Stay-Fix dressing and 2 large Tegaderm. Attached to Atrium. Patient tolerated procedure well. Returned to supine position in bed with raised HOB. Patient in noapparent distress. No complaints voiced.Report called to 1C RN. Patient returned to unit via bed byTransportation personnel. Specimen labeled and taken to lab for 72 hour hold. [facility] [id number] Note* Home Care - Christina Montiel RN - 02/18/2024 9:56 AM EDT Patient is active with: [facility] [address] [place], [place] [id number] [facility] will continue to follow. [place] [id number] Note* Home Care - Christina Montiel RN - 02/18/2024 9:56 AM EDT Patient is active with: [facility] [address] [place], [place] [id number] HCl will continue to follow. [facility] [id number] NoteProblem: Safety - Adult Goal: Free from fall injury [facility] Plan of care note* Care Plan - Ladan Reyes RN - 02/17/2024 9:17 PM EDT Problem: Safety - Adult Goal: Free from fall injury Outcome: Progressing [facility] [id number] Nurse Note* Ladan Reyes RN - 02/17/2024 9:07 PM EDT Messaged attending for multiple BP readings of systolic in 80's and diastolic in the 50's. Pt is asymptomatic and color is good. Thoracentesis site is clean, intact, and dry. No new orders at this time. [facility] [id number] Nurse Note* Rachelle Heck RN - 02/17/2024 11:58 AM EDT Patient arrived to Ultrasound department for thoracentesis. History, medications and allergies reviewed. PA. Hairstonos in to discuss procedure and informed consent obtained. Patient assisted to sitting on the edge of the bed. Left upper back scanned, marked and prepped in sterile fashion. 1L of dark red fluid removed. Vaseline guaze dressing applied. Patient tolerated procedure well. [facility] HospitalFyhdoy21-20-2125 Consult note* Diandra Khan MD - 02/17/2024 11:26 AM EDTAssociated Order(s): Inpatient consult to Pulmonology PULMONOLOGY CONSULT NOTE 02/17/2024 4:00 PM Reason for consult: COPD Inpatient consult to Pulmonology Consult performed by: Diandra Khan MD Consult ordered by: 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 APRN - STRUCTURAL METAL FABRICATOR APPRENTICE Reason for consult: acute hypoxic respiratory failure Subjective: Admit Date: 02/15/2024 PCP: Estephania Alvarado HPI: Darin Breaux is a 79 year old make admitted from [facility] due to increase in shortness of breath and chest pain. Patient recently underwent CABG X 3, MAZE LAAL with atriclip on 02/[address] Vargas. Post operative course was uncomplicated an once medically stable he ws discharged to home on POD 7. After discharge his shortness of breath was worsening both rest and exertion. Alsoexperiencing chest pain. Patient was brought to the [facility] and CXR at the showed bilateral pleural effusion left more than the right. Also showed bibasilar atelectasis and/or infiltrates more prominent at the left lung base. Patient was seen and examined at bedside, not in acute distress. Remains on 4 L oxygen, normally baseline 3 L oxygen at home. Patient follows up with wood window and door craftsman, PFT done in 2020 showed FEV1 FVC ratio 32%. FEV1 1.30 L at 36% predicted value with significant bronchodilator response. Patient was using Spiriva Respimat, Symbicort and DuoNeb at home. Assessment and Plan: Acute hypoxic respiratory failure 2/2 bilateral pleural effusion s/p CABG History of severe obstruction/COPD. ABG showed CO2 42. Not retaining CO2. Bilateral pleural effusion s/p CABG x 3, maze, LAAL with artclip on 02/01. Patient received 1 dose of Lasix today. CAD s/p CABG x 3 on 02/01. Atrial fibrillation on Eliquis. Hypertension Hyperlipidemia GERD Current tobacco user Plan S/p thoracentesis on the left side. Removed 1 L hemorrhagic fluid. Currently on 4 L oxygen, wean oxygen with goal SpO2 of >90%. Home baseline 3 L oxygen. Resumed home DuoNeb, Spiriva and Symbicort. Albuterol inhaler as necessary. No significant wheezing present, less likely COPD exacerbation. CT surgery on board for post CABG management. Advised to follow with his wood window and door craftsman after discharge. Pulmonary team will continue to follow Portions of the information within this encounter were entered using an electronic dictation system. Best attempts were made to edit/proofread the information prior to note completion. Despite the review of information, some errors may remain. If there are questions related to the information contained within the note please contact the signing physician directly. Past Medical History: Past Medical History: Diagnosis Date AAA (abdominal aortic aneurysm) (HCC) Arthritis Atrial fibrillation (HCC) Carotid artery stenosis COPD (chronic obstructive pulmonary disease) (HCC) Coronary artery disease GERD (gastroesophageal reflux disease) Hyperlipidemia Hypertension Myocardial infarction (HCC) Presence of permanent cardiac pacemaker Past Surgical History: Past Surgical History: Procedure Laterality Date ABDOMINAL AORTIC ANEURYSM REPAIR BACK SURGERY lumbar discectomy CARPAL TUNNEL RELEASE Right CATARACT EXTRACTION Bilateral COLONOSCOPY CORONARY ANGIOPLASTY WITH STENT PLACEMENT 1996 CORONARY STENT PLACEMENT HERNIA REPAIR Bilateral inguinal TRANSURETHRAL RESECTION OF PROSTATE Allergies: Allergies Allergen Reactions Penicillins Hives Plavix [Clopidogrel] Hives Tamsulosin Other Blacked out Social History: Social History Substance and Sexual Activity Alcohol Use Not Currently Comment: sober since 2006 Social History Substance and Sexual Activity Drug Use Never Social History Tobacco Use Smoking Status Every Day Current packs/day: 0.50 Average packs/day: 1.9 packs/day for 68.6 years (133.3 ttl pk-yrs) Types: Cigarettes Start date: 1955 Smokeless Tobacco Never Family History: No family history on file. Review of Systems Constitutional: Negative. HENT: Negative. Eyes: Negative. Respiratory: Positive for cough and shortness of breath. Negative for chest tightness, wheezing andstridor. Cardiovascular: Positive for chest pain. Negative for palpitations. Gastrointestinal: Negative. Genitourinary: Negative. Musculoskeletal: Negative. Allergic/Immunologic: Negative. Neurological: Negative. Hematological: Negative. Psychiatric/Behavioral: Negative. Medications: Scheduled Meds:amLODIPine, 5 mg, Oral, Daily apixaban, 5 mg, Oral, BID aspirin, 81 mg, Oral, Daily atorvastatin, 80 mg, Oral, Daily [START ON 02/18/2024] furosemide, 40 mg, IntraVENous, Daily metoprolol tartrate, 50 mg, Oral, BID mometasone-formoterol, 2 puff, Inhalation, BID pantoprazole, 20 mg, Oral, qAM AC sodium chloride 0.9%, 5-40 mL, IntraVENous, q12h tiotropium, 2 puff, Inhalation, Daily Continuous Infusions: Data: [facility] within last 24 hours- BMP: Recent Labs 02/16/24 0004 02/17/24219 NA 136 136 K 3.8 4.1 CL 105 99 CO2 27 32* BUN 28* 29* CREATININE 1.04 1.38* CALCIUM 8.7 9.0 LFTs: Recent Labs 02/16/24 0004 02/17/24 0628 AST 27 -- ALT 33 -- PROT 5.3* -- ALBUMIN 2.8* -- BILITOT 0.3 -- BILIRUBINU -- Negative ALKPHOS 60 -- Glucose: Recent Labs 02/16/24 0004 02/17/24219 GLUCOSE 98 103* Procal: No results for input(s): "PROCAL" in the last 72 hours. CBC: Recent Labs 02/16/24 0004 02/17/24219 WBC 7.1 8.1 HGB 7.8* 8.4* HCT 25.8* 27.1* PLT 317 361 MCV 97.7 93.8 RDW 16.4* 16.5* ABGs: No results for input(s): "PHART", "UDM8TUL", "PO2ART", "DDA8WZA", "SO2ART", "B3HOFTJM" in thelast 72 hours. Lactic Acid: No results for input(s): "LACTATE" in the last 72 hours. INR: No results for input(s): "INR" in the last 72 hours. Cardiac Injury Profile: No results for input(s): "CKTOTAL", "CKMB", "TROPONINI" in the last 72 hours. Labs in Last 3 months: Lab Results Component Value Date TSH 10.053 (H) 02/09/2024 INR 1.0 02/05/2024 Microbiology- Urine Cx: Lab Results Component Value Date URINECX Normal urogenital esveriano present 01/26/2024 URINECX 10,000-50,000 CFU/mL Aerococcus urinae (A) 01/26/2024 Blood Cx: No results found for: "BLOODCX" Sputum Cx: No results found for: "RESPCULT" Gram Stain: No results found for: "LABGRAM" PNA PCR: No results found for: "HUMANMETAPNE" COVID19: No results found for: "COVID19" Legionella Ag: No results found for: "LEGIONELLAPN" Strep Ag: No results for input(s): "STREPPNEUMO" in the last 72 hours. Imaging- CXR portable: Results for orders placed during the hospital encounter of 02/15/24 XR chest 1 view Narrative [facility] 1945 [id number] Exam Date/Time: 02/17/2024 06:44 Procedure: XR CHEST 1 VIEW Ordering Provider: PATRICIA JENNIFER Reason For Exam: DYSPNEA EXAM TYPE: RADIOLOGIC EXAMINATION, CHEST, SINGLE VIEW FRONTAL (CXR SINGLE VIEW) EXAM DATE AND TIME: 02/17/2024 6:44 AM EDT INDICATION: Respiratory distress COMPARISON: 02/16/2024 TECHNIQUE: A single frontal view of the thorax was obtained and reviewed. Special views: None. Impression 1. Lines/Tubes/Devices/Hardware: Stable projection of pacer and leads. Please confirm position and function of any catheters or attempted catheters clinically. 2. Lungs: Persistent bibasilar infiltrates and effusion. Limited due to portable technique. Consider follow-up with PA and lateral chest for persistent symptoms. 3. Pleura: See above. No significant pneumothorax. 4. Heart and mediastinum: Limited due to technique. 5. Upper abdomen: No acute process seen. 6. Thorax:No acute bony process Report Dictated on Electronically Signed By: Artemio Field MD Electronically Signed Date/Time: 02/17/2024 7:22 AM EDT CXR (2V): Results for orders placed in visit on 01/26/24 XR chest 2 views Narrative Patient Name: DARIN BREAUX : 1945 Exam Date/Time: 01/26/2024 15:15 Procedure: XR CHEST 2 VIEWS Ordering Provider: VERNON BRANDY Reason For Exam: PREOPERATIVE ANESTHESIA CLINICAL INFORMATION: Preoperative study. PA and lateral views of the chest are provided without comparison. 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 The cardiac silhouette and mediastinum are otherwise within normal limits. The lungs are hyperexpanded but free of infiltrate or pleural effusion. The visualized bones and soft tissues are grossly unremarkable. Impression 1. Left chest wall pacer. 2. COPD. 3. No focal infiltrates. Report Dictated on Electronically Signed By: Micah Garcia MD Electronically Signed Date/Time: 01/29/2024 1:[address] Chest: No results found for this or any previous visit. CTA Chest: No results found for this or any previous visit. Other Studies: Reviewed and as per electronic record. CxR/CT images personally reviewed by me when available; salient findings summarized in A/P. Objective: Vitals: BP 96/67 Pulse 70 Temp 36.4 C (97.6 F) (Temporal) Resp 18 Wt 71.5 kg (157 lb 10.1 oz) SpO2 94% BMI 20.24 kg/m Physical Exam Constitutional: Appearance: He is ill-appearing. Eyes: Pupils: Pupils are equal, round, and reactive to light. Cardiovascular: Rate and Rhythm: Normal rate and regular rhythm. Pulses: Normal pulses. Heart sounds: Normal heart sounds. No murmur heard. No friction rub. No gallop. Pulmonary: Effort: Pulmonary effort is normal. No respiratory distress. Breath sounds: Normal breath sounds. No wheezing. Comments: Decreased bilateral breath sounds. Abdominal: General: Abdomen is flat. Musculoskeletal: General: Normal range of motion. Skin: General: Skin is warm. Capillary Refill: Capillary refill takes less than 2 seconds. Neurological: Mental Status: He is alert and oriented to person, place, and time. Diandra Khan MD PGY- 4 Pulmonary and Critical Care Medicine Associated attestation - Kavon Engle MD - 02/17/2024 5:43 PM EDT I saw and evaluated the patient, participating in the borrego portions of the service. I reviewed the resident s note. I agree with the resident s findings and plan. Patient with recent CABG by Dr Vargas. Readmit with dyspnea. PFT reviewed by me from 2020- severe disease Patient found to have large pleural effusions. CXR interpreted by me shows R> L pleural effusions Had thoracentesis today 1 liter red fluid off likely related to post OP effusion. Patient resting comfortably in chair. No wheeze. On baseline oxygen. Patient has history of severe COPD, on triple therapy as OP, multiple previous exacerbations, home oxygen use 3 lpm, ROMEO intolerant to CPAP, still smoked until CABG, previous intolerance to daliresp.Also had remote history lung nodules, small benign. Most of his chronic respiratory issues are at baseline, suspect dyspnea related to pleural effusions. Agree with ongoing effort with thoracentesis/diuresis. May need additional tap. No evidence of AE-COPD. Patient on appropriate inhaler therapy. Defer steroids/abx. Sees Dr Madison. NO evidence of hypercarbia on ABG, no need for nightly BiPAP, additionally he could not tolerate PAP Will follow Kavon Engle MD [id number]* Care Coordination - Olamide Tanner RN - 02/17/2024 10:48 AM EDT Images from the original note were not included. Care Management Progress Note Patient remains on 1C with shortness of breath. VSS, remains on 4L NC-baseline home O2, VSS, afebrile, SCr bumped- decreased diuresis, thoracentesis pending and Pulmonology consulted. DCP-home, active with [facility] Discharge Milestones and Delays Expected date/time: 02/19/[address] discharge order Complete med reconciliation Case mgmt discharge readiness Clinical Stability Diagnostic Workup Patient Education Complete Expected Discharge History Expected Date/Time Set By Reviewed At 02/19/2024 Olamide Tanner RN 02/17/2024 10:48 AM 02/18/2024 ROBIN Saez CNP 02/16/2024 1:40 PM 02/17/2024 ROBIN Evans CNP 02/15/2024 3:07 PM Length of Stay (Days): 1 GMLOS: No GMLOS Documented [id number] Note* Care Coordination - Olamide Tanner RN - 02/17/2024 10:48 AM EDT Images from the original note were not included. Care Management Progress Note Patient remains on 1C with shortness of breath. VSS, remains on 4L NC-baseline home O2, VSS, afebrile, SCr bumped- decreased diuresis, thoracentesis pending and Pulmonology consulted. DCP-home, active with [facility] Discharge Milestones and Delays Expected date/time: 02/19/[address] discharge order Complete med reconciliation Case mgmt discharge readiness Clinical Stability Diagnostic Workup Patient Education Complete Expected Discharge History Expected Date/Time Set By Reviewed At 02/19/2024 Olamide Tanner RN 02/17/2024 10:48 AM 02/18/2024 ROBIN Saez CNP 02/16/2024 1:40 PM 02/17/2024 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 APRN - [facility] 02/15/2024 3:07 PM Length of Stay (Days): 1 GMLOS: No GMLOS Documented [id number] Plan of care note* Care Plan - Donna Lutz RN - 02/16/2024 8:19 PM EDT Problem: Pain - Adult Goal: Verbalizes/displays adequate comfort level or baseline comfort level Outcome: Progressing Problem: Safety - Adult Goal: Free from fall injury Outcome: Progressing Problem: Discharge Planning Goal: Discharge to home or other facility with appropriate resources Outcome: Progressing Problem: Chronic Conditions and Co-morbidities Goal: Patient's chronic conditions and co-morbidity symptoms are monitored and maintained or improved Outcome: Progressing [id number] Note* Care Coordination - Olamide Tanner RN - 02/16/2024 2:03 PM EDT Care Managment Initial Assessment Date: 02/16/2024 Patient Name: Darin Breaux : 1945 Patient Information Source of Information: Patient ([place] previous admission) Cognition/Language: WFL - Within Functional Limits Permission given to speak with patient chain sales representative/caregiver as indicated: Confirmation of Payer with patient/family: Yes Payer Name: [employer] : No Confirmation of Primary Care Physician: Confirmed PCP Name: Estephania Alvarado Seen in last 2 years?: Yes Primary Caregiver: Self If assistance needed, confirmed caregiver ready, willing and able to care for patient at discharge: Confirmed with: Living Arrangements Current Residence: House Number of Floors 2 Number of Entry Steps: 3 Bed/Bath Levels: Both first floor Facility: Facility Name: Plan to Return: Lives with: Children Support Systems: Children Activities of Daily Living Ambulation: Independent Bathing/Dressing: Independent Elimination/Continence/Toileting: Independent Feeding: Independent Who Assists with Activities of Daily Living: Instrumental Activities of Daily Living Prescription Coverage: Yes Pharmacy Used: [facility] Medication Management: Independent Transportation/Shopping: Independent Transportation Mode: Car Needs Assistance with Transportation at Discharge: No Meal Preparation: Assistance Provider Meal Prep Assistance Provider Name: matthew ALAS Laundry/Cleaning: Assistance Provider Laundry/Cleaning Assistance Provider Name: Sinan Finances/Bill Paying: Assistance Provider Finances/Bill Payer Assistance Provider Name: Sinan Communication: Independent Types of Care Services/Equipment Utilized Care Services: Skilled Home Health Services Care Services Provider Name: [facility] Dialysis Type: Durable Medical Equipment: Walker, Oxygen (Continuous or prn) Oxygen Flow Rate: [facility] Patient's Goal/Discharge Plan Patient expects to be discharged to: home Discharge Planning Actions: Continue to follow Patient's Choice Rights and [employer] and Collaborative Relationships Disclosed as Indicated for Post-Acute Care: Interdisciplinary Team Engagement: Home Health Care Social Work Referral for: Additional Information: Patient admitted to with SOB. Patient known to [facility] from recent admission to [facility] ICU s/p CABG. Patient from home with ex-daughter in law, was discharged with home with home O2 per [facility] last admission and active with [facility]. Olamide Tanner RN [facility] [id number] Note* Care Coordination - Olamide Tanner RN - 02/16/2024 2:03 PM EDT Care Managment Initial Assessment Date: 02/16/2024 Patient Name: Darin Breaux : 1945 Patient Information Source of Information: Patient (IA previous admission) Cognition/Language: WFL - Within Functional Limits Permission given to speak with patient chain sales representative/caregiver as indicated: Confirmation of Payer with patient/family: Yes Payer Name: [employer] : No Confirmation of Primary Care Physician: Confirmed PCP Name: Estephania Alvarado Seen in last 2 years?: Yes Primary Caregiver: Self If assistance needed, confirmed caregiver ready, willing and able to care for patient at discharge: Confirmed with: Living Arrangements Current Residence: House Number of Floors 2 Number of Entry Steps: 3 Bed/Bath Levels: Both first floor Facility: Facility Name: Plan to Return: Lives with: Children Support Systems: Children Activities of Daily Living Ambulation: Independent Bathing/Dressing: Independent Elimination/Continence/Toileting: Independent Feeding: Independent Who Assists with Activities of Daily Living: Instrumental Activities of Daily Living Prescription Coverage: Yes Pharmacy Used: [facility] Medication Management: Independent Transportation/Shopping: Independent Transportation Mode: Car Needs Assistance with Transportation at Discharge: No Meal Preparation: Assistance Provider Meal Prep Assistance Provider Name: matthew ALAS Laundry/Cleaning: Assistance Provider Laundry/Cleaning Assistance Provider Name: Sinan Finances/Bill Paying: Assistance Provider Finances/Bill Payer Assistance Provider Name: Sinan Communication: Independent Types of Care Services/Equipment Utilized Care Services: Skilled Home Health Services Care Services Provider Name: [facility] Dialysis Type: Durable Medical Equipment: Walker, Oxygen (Continuous or prn) Oxygen Flow Rate: [facility] Patient's Goal/Discharge Plan Patient expects to be discharged to: home Discharge Planning Actions: Continue to follow Patient's Choice Rights and [employer] and Collaborative Relationships Disclosed as Indicated for Post-Acute Care: Interdisciplinary Team Engagement: Home Health Care Social Work Referral for: Additional Information: Patient admitted to with SOB. Patient known to [facility] from recent admission to [facility] ICU s/p CABG. Patient from home with ex-daughter in law, was discharged with home with home O2 per [facility] last admission and active with [facility]. Olamide Tanner RN [facility] [id number] History and physical note* Mariely Vasquez APRN - [facility] - 02/16/2024 9:35 AM EDT Images from the original note were not included. [facility]: Cardiothoracic Surgery H&P PATIENT NAME: Darin Breaux : 1945 (79 y.o.) TODAY'S DATE: 02/16/2024 DATE OF ADMISSION: 02/15/2024 7:39 PM Subjective: CC: SOB HPI: 79 y.o. male who was direct admitted from [facility] due to increase in SOB and chest pain. CXR completed at [facility] showed bilateral pleural effusions left greater than right with bibasilar atelectasis and/or infiltrates more prominent at the left lung base. Patient is known to our practice. He recently underwent CABGx3, MAZE, LAAL with atriclip on 02/[address] Vargas. Post op course was uncomplicated and once medically optimized he was discharged home with family on POD#7. Per patient after he got home he continue to decline from a respiratory standpoint. He noticed hiswork of breathing worsened and he could barely walk without getting short of breath. He does admit to some CP but relates that to his incision. He had his family take him to [facility] which led to his transfer to [facility]. A complete ROS is documented below. Review of Systems Constitutional: Positive for activity change and fatigue. Negative for appetite change, diaphoresis, fever and unexpected weight change. HENT: Negative for congestion and dental problem. Eyes: Negative for pain, redness and visual disturbance. Respiratory: Positive for shortness of breath. Negative for cough, choking, chest tightness and wheezing. Cardiovascular: Positive for chest pain (incisional). Gastrointestinal: Negative for abdominal distention, abdominal pain, blood in stool, constipation, diarrhea, nausea and vomiting. Endocrine: Negative for cold intolerance and heat intolerance. Genitourinary: Negative for difficulty urinating and frequency. Musculoskeletal: Negative for arthralgias, back pain, gait problem and joint swelling. Skin: Negative for color change, pallor, rash and wound. Allergic/Immunologic: Negative for immunocompromised state. Neurological: Negative for dizziness, seizures, syncope, speech difficulty, weakness, light-headedness and numbness. Hematological: Does not bruise/bleed easily. Psychiatric/Behavioral: Negative for confusion, decreased concentration and sleep disturbance. The patient is not nervous/anxious. Allergies: Penicillins, Plavix [clopidogrel], and Tamsulosin Past Medical History: has a past medical history of AAA (abdominal aortic aneurysm) ([facility]), Arthritis, Atrial fibrillation([facility]), Carotid artery stenosis, COPD (chronic obstructive pulmonary disease) ([facility]), Coronary arterydisease, GERD (gastroesophageal reflux disease), Hyperlipidemia, Hypertension, Myocardial infarction (HCC), and Presence of permanent cardiac pacemaker. Past Surgical History: has a past surgical history that includes Abdominal aortic aneurysm repair; Cataract extraction (Bilateral); Carpal tunnel release (Right); Coronary stent placement; Hernia repair (Bilateral); Back surgery; Coronary angioplasty with stent (1996); Colonoscopy; and Transurethral resection of prostate. Social History: reports that he has been smoking cigarettes. He started smoking about 68 years ago. He has a 133.3 pack-year smoking history. He has never used smokeless tobacco. He reports that he does not currently use alcohol. He reports that he does not use drugs. Family History: family history is not on file. Medications: Prior to Admission medications Medication Sig Start Date End Date Taking? Authorizing Provider acetaminophen (Tylenol) 500 MG tablet Take 2 tablets (1,000 mg) by mouth in the morning and 2 tablets (1,000 mg) at noon and 2 tablets (1,000 mg) before bedtime. 02/09/24 03/13/24 Yes ROBIN Gracia CNP albuterol 108 (90 Base) MCG/ACT inhaler Inhale 2 puffs every 6 hours as needed. 10/15/23 Historical Provider, amLODIPine (Norvasc) 5 MG tablet Take 5 mg by mouth daily. 12/31/23 Historical Provider, aspirin 81 MG EC tablet Take 81 mg by mouth daily. Historical Provider, atorvastatin (Lipitor) 80 MG tablet Take 1 tablet (80 mg) by mouth daily. 02/10/24 05/10/24 ROBIN Gracia CNP benzonatate (Tessalon) 200 MG capsule Take 200 mg by mouth 3 times daily as needed. 10/08/23 Historical Provider, cholecalciferol (Vitamin D-3) 50 MCG (2000 UT) capsule Take 2,000 Units by mouth daily. Historical Provider, Eliquis 5 MG tablet Take 5 mg by mouth 2 times daily. 01/13/24 Historical Provider, Ferrous Sulfate (IRON PO) Take 1 tablet by mouth daily. Historical Provider, fluticasone (Flonase) 50 MCG/ACT nasal spray Administer 2 sprays into each nostril daily. 12/31/23 Historical Provider, FOLIC ACID PO Take 1 tablet by mouth daily. Historical Provider, ipratropium-albuterol (Duo-Neb) 0.5-2.5 mg/3 mL nebulizer solution Take 3 mL by nebulization every 6 hours as needed. 09/10/23 Historical Provider, metoprolol tartrate (Lopressor) 50 MG tablet Take 1 tablet (50 mg) by mouth 2 times daily. 02/09/24 05/09/24 Wesley Magana, JOB ANALYSIS MANAGER - STRUCTURAL METAL FABRICATOR APPRENTICE pantoprazole (ProtoNix) 20 MG EC tablet Take 20 mg by mouth every morning (before breakfast). 01/02/24 Historical Provider, Spiriva Respimat 2.5 MCG/ACT inhaler 2 puffs daily. 12/31/23 Historical Provider, Symbicort 160-4.5 MCG/ACT inhaler Inhale 2 puffs in the morning and 2 puffs in the evening. 12/31/23istorical Provider, Objective: Vitals: BP: 135/88, MAP (mmHg): 99, Heart Rate: 72 Resp: 17 Temp: (!) 35.9 C (96.6 F), Temp Source: Temporal BMI (Calculated): 20.97 Physical Exam Constitutional: Comments: 4LNC in place Cardiovascular: Rate and Rhythm: Normal rate and regular rhythm. Heart sounds: Normal heart sounds. No murmur heard. No friction rub. Comments: ppm Pulmonary: Effort: Pulmonary effort is normal. Breath sounds: Examination of the right-lower field reveals decreased breath sounds. Examination ofthe left-lower field reveals decreased breath sounds. Decreased breath sounds present. Musculoskeletal: Right lower leg: No edema. Left lower leg: No edema. Skin: General: Skin is warm and dry. Capillary Refill: Capillary refill takes less than 2 seconds. Findings: Bruising and ecchymosis present. Comments: Surgical Incisions: well approximate; clean dry with no drainage noted. Surrounding skin no redness, warmth, or signs of infection noted. Neurological: Mental Status: He is alert. Psychiatric: Behavior: Behavior is cooperative. Diagnostics: Reviewed in EMR Labs: Reviewed in EMR BMP: Recent Labs 02/16/24 0004 NA 136 K 3.8 CL 105 CO2 27 BUN 28* CREATININE 1.04 CALCIUM 8.7 CBC: Recent Labs 02/16/24 0004 WBC 7.1 HGB 7.8* HCT 25.8* PLT 317 MCV 97.7 RDW 16.4* Assessment: SOB likely related to post op fluid overload/bilateral pleural effusions CAD s/p CABG (02/02/24) SSS, Afib s/p dual chamber [facility], on Eliquis s/p MAZE HTN HPL COPD/Emphysema (3L O2) Current tobacco use GERD AAA s/p Endovascular repair Hx PCI Post operative Pulm Management: Normal Post-operative Course Acute blood loss anemia/consumptive coagulopathy Plan: Continue medications as ordered ASA, CCB, statin, BB Hold Eliquis last dose ~02/14 Lasix x1 this morning; may repeat dose this afternoon Check morning CXR Will plan to assess POCUS for left/right thora tomorrow A total of 41 minutes were spent between the gopa-bd-jhey encounter, physical exam, reviewing the medical history, coordinating the patient's care, counseling/educating the patient, ordering medications/test/procedures, interpreting results and documenting clinical information in the [facility] on[facility] record on the day of the encounter. The patient was seen and examined independently andrelevant data reviewed by myself. A full chart review was performed. Associated attestation - Mike East MD - 02/21/2024 3:15 PM EDT DOS: 02-16-24 I personally performed a [id number] diagnostic evaluation on this patient I agree with the findings and plan of care as documented by the TACO or resident. There has been no change in the physical exam or findings unless otherwise noted below. A total of 90 minutes were spent between the qsaz-mu-twls encounter, physical exam, reviewing the medical history, coordinating the patient's care, counseling/educating the patient, ordering medications/test/procedures, interpreting results and documenting clinical information in the patients [facility] record on the day of the encounter. The patient was seen and examined independently andrelevant data reviewed by myself. A full chart review was performed. Patient's readmission was related to dyspnea. There are multiple reasons including COPD and pleuraleffusion. These will be treated accordingly we will follow while in the hospital. [id number]30[facility] History and physical note* Mariely Vasquez, ROBIN - STRUCTURAL METAL FABRICATOR APPRENTICE - 02/16/2024 9:35 AM EDT Images from the original note were not included. [facility]: Cardiothoracic Surgery H&P PATIENT NAME: Darin Breaux : 1945 (79 y.o.) TODAY'S DATE: 02/16/2024 DATE OF ADMISSION: 02/15/2024 7:39 PM Subjective: CC: SOB HPI: 79 y.o. male who was direct admitted from [facility] due to increase in SOB and chest pain. CXR completed at [facility] showed bilateral pleural effusions left greater than right with bibasilar atelectasis and/or infiltrates more prominent at the left lung base. Patient is known to our practice. He recently underwent CABGx3, MAZE, LAAL with atriclip on 02/[address] Vargas. Post op course was uncomplicated and once medically optimized he was discharged home with family on POD#7. Per patient after he got home he continue to decline from a respiratory standpoint. He noticed hiswork of breathing worsened and he could barely walk without getting short of breath. He does admit to some CP but relates that to his incision. He had his family take him to [facility] which led to his transfer to [facility]. A complete ROS is documented below. Review of Systems Constitutional: Positive for activity change and fatigue. Negative for appetite change, diaphoresis, fever and unexpected weight change. HENT: Negative for congestion and dental problem. Eyes: Negative for pain, redness and visual disturbance. Respiratory: Positive for shortness of breath. Negative for cough, choking, chest tightness and wheezing. Cardiovascular: Positive for chest pain (incisional). Gastrointestinal: Negative for abdominal distention, abdominal pain, blood in stool, constipation, diarrhea, nausea and vomiting. Endocrine: Negative for cold intolerance and heat intolerance. Genitourinary: Negative for difficulty urinating and frequency. Musculoskeletal: Negative for arthralgias, back pain, gait problem and joint swelling. Skin: Negative for color change, pallor, rash and wound. Allergic/Immunologic: Negative for immunocompromised state. Neurological: Negative for dizziness, seizures, syncope, speech difficulty, weakness, light-headedness and numbness. Hematological: Does not bruise/bleed easily. Psychiatric/Behavioral: Negative for confusion, decreased concentration and sleep disturbance. The patient is not nervous/anxious. Allergies: Penicillins, Plavix [clopidogrel], and Tamsulosin Past Medical History: has a past medical history of AAA (abdominal aortic aneurysm) ([facility]), Arthritis, Atrial fibrillation([facility]), Carotid artery stenosis, COPD (chronic obstructive pulmonary disease) ([facility]), Coronary arterydisease, GERD (gastroesophageal reflux disease), Hyperlipidemia, Hypertension, Myocardial infarction ([facility]), and Presence of permanent cardiac pacemaker. Past Surgical History: has a past surgical history that includes Abdominal aortic aneurysm repair; Cataract extraction (Bilateral); Carpal tunnel release (Right); Coronary stent placement; Hernia repair (Bilateral); Back surgery; Coronary angioplasty with stent (1996); Colonoscopy; and Transurethral resection of prostate. Social History: reports that he has been smoking cigarettes. He started smoking about 68 years ago. He has a 133.3 pack-year smoking history. He has never used smokeless tobacco. He reports that he does not currently use alcohol. He reports that he does not use drugs. Family History: family history is not on file. Medications: Prior to Admission medications Medication Sig Start Date End Date Taking? Authorizing Provider acetaminophen (Tylenol) 500 MG tablet Take 2 tablets (1,000 mg) by mouth in the morning and 2 tablets (1,000 mg) at noon and 2 tablets (1,000 mg) before bedtime. 02/09/24 03/13/24 Yes ROBIN Gracia CNP albuterol 108 (90 Base) MCG/ACT inhaler Inhale 2 puffs every 6 hours as needed. 10/15/23 Historical Provider, amLODIPine (Norvasc) 5 MG tablet Take 5 mg by mouth daily. 12/31/23 Historical Provider, aspirin 81 MG EC tablet Take 81 mg by mouth daily. Historical Provider, atorvastatin (Lipitor) 80 MG tablet Take 1 tablet (80 mg) by mouth daily. 02/10/24 05/10/24 ROBIN Gracia CNP benzonatate (Tessalon) 200 MG capsule Take 200 mg by mouth 3 times daily as needed. 10/08/23 Historical Provider, cholecalciferol (Vitamin D-3) 50 MCG (2000 UT) capsule Take 2,000 Units by mouth daily. Historical Provider, Eliquis 5 MG tablet Take 5 mg by mouth 2 times daily. 01/13/24 Historical Provider, Ferrous Sulfate (IRON PO) Take 1 tablet by mouth daily. Historical Provider, fluticasone (Flonase) 50 MCG/ACT nasal spray Administer 2 sprays into each nostril daily. 12/31/23 Historical Provider, FOLIC ACID PO Take 1 tablet by mouth daily. Historical Provider, ipratropium-albuterol (Duo-Neb) 0.5-2.5 mg/3 mL nebulizer solution Take 3 mL by nebulization every 6 hours as needed. 09/10/23 Historical Provider, metoprolol tartrate (Lopressor) 50 MG tablet Take 1 tablet (50 mg) by mouth 2 times daily. 02/09/24 05/09/24 ROBIN Gracia CNP pantoprazole (ProtoNix) 20 MG EC tablet Take 20 mg by mouth every morning (before breakfast). 01/02/24 Historical Provider, Spiriva Respimat 2.5 MCG/ACT inhaler 2 puffs daily. 12/31/23 Historical Provider, Symbicort 160-4.5 MCG/ACT inhaler Inhale 2 puffs in the morning and 2 puffs in the evening. 12/31/23istorical Provider, Objective: Vitals: BP: 135/88, MAP (mmHg): 99, Heart Rate: 72 Resp: 17 Temp: (!) 35.9 C (96.6 F), Temp Source: Temporal BMI (Calculated): 20.97 Physical Exam Constitutional: Comments: 4LNC in place Cardiovascular: Rate and Rhythm: Normal rate and regular rhythm. Heart sounds: Normal heart sounds. No murmur heard. No friction rub. Comments: ppm Pulmonary: Effort: Pulmonary effort is normal. Breath sounds: Examination of the right-lower field reveals decreased breath sounds. Examination ofthe left-lower field reveals decreased breath sounds. Decreased breath sounds present. Musculoskeletal: Right lower leg: No edema. Left lower leg: No edema. Skin: General: Skin is warm and dry. Capillary Refill: Capillary refill takes less than 2 seconds. Findings: Bruising and ecchymosis present. Comments: Surgical Incisions: well approximate; clean dry with no drainage noted. Surrounding skin no redness, warmth, or signs of infection noted. Neurological: Mental Status: He is alert. Psychiatric: Behavior: Behavior is cooperative. Diagnostics: Reviewed in EMR Labs: Reviewed in EMR BMP: Recent Labs 02/16/24 0004 NA 136 K 3.8 CL 105 CO2 27 BUN 28* CREATININE 1.04 CALCIUM 8.7 CBC: Recent Labs 02/16/24 0004 WBC 7.1 HGB 7.8* HCT 25.8* PLT 317 MCV 97.7 RDW 16.4* Assessment: SOB likely related to post op fluid overload/bilateral pleural effusions CAD s/p CABG (02/02/24) SSS, Afib s/p dual chamber [facility], on Eliquis s/p MAZE HTN HPL COPD/Emphysema (3L O2) Current tobacco use GERD AAA s/p Endovascular repair Hx PCI Post operative Pulm Management: Normal Post-operative Course Acute blood loss anemia/consumptive coagulopathy Plan: Continue medications as ordered ASA, CCB, statin, BB Hold Eliquis last dose ~02/14 Lasix x1 this morning; may repeat dose this afternoon Check morning CXR Will plan to assess POCUS for left/right thora tomorrow A total of 41 minutes were spent between the fypf-nd-tsdx encounter, physical exam, reviewing the medical history, coordinating the patient's care, counseling/educating the patient, ordering medications/test/procedures, interpreting results and documenting clinical information in the patients electr on health record on the day of the encounter. The patient was seen and examined independently andrelevant data reviewed by myself. A full chart review was performed. Associated attestation - Mike East MD - 02/21/2024 3:15 PM EDT DOS: 02-16-24 I personally performed a gjkr-gm-gjpt diagnostic evaluation on this patient I agree with the findings and plan of care as documented by the TACO or resident. There has been no change in the physical exam or findings unless otherwise noted below. A total of 90 minutes were spent between the htqb-kk-yyyc encounter, physical exam, reviewing the medical history, coordinating the patient's care, counseling/educating the patient, ordering medications/test/procedures, interpreting results and documenting clinical information in the patients electr onic health record on the day of the encounter. The patient was seen and examined independently andrelevant data reviewed by myself. A full chart review was performed. Patient's readmission was related to dyspnea. There are multiple reasons including COPD and pleuraleffusion. These will be treated accordingly we will follow while in the hospital. documented in this [facility]07-29-2024 Plan of care note* Care Plan - Donna Lutz RN - 02/15/2024 8:44 PM EDT Problem: Pain - Adult Goal: Verbalizes/displays adequate comfort level or baseline comfort level Outcome: Progressing Problem: Safety - Adult Goal: Free from fall injury Outcome: Progressing Problem: Discharge Planning Goal: Discharge to home or other facility with appropriate resources Outcome: Progressing Problem: Chronic Conditions and Co-morbidities Goal: Patient's chronic conditions and co-morbidity symptoms are monitored and maintained or improved Outcome: Progressing [id number] History of Present illness Narrative* Albina Green RN - 02/12/2024 3:16 PM EDT 02/12/24 1453 Transitions Post-Discharge Call - Initial Reviewed patients discharge instructions? Yes Was patient able to draft roller picker new prescriptions? Yes Medication reconciliation complete? Yes Does patient have any questions about medications? No Verified that new DME was delivered? Yes Was HHC ordered? Yes If yes, which agency? ([facility]) Was HHC initiated if ordered? Yes Does patient have all necessary follow up appointments scheduled? Plans to schedule List upcoming appointments: 02/15, [facility], CT surgery. DIL waiting buttoner from pulmonologistto schedule. DIL plans to schedule with PCP. Does patient have transportation to and from appointments? Yes Does the patient have any questions/concerns at this time? No Educational and general instructions provided: Medication Adherence;Provider Follow Up;When to callMD;When to return to the ED Has this patient been identified for ongoing CM/SW/Health nutritional health coach needs? Not Eligible Are you able to complete routine daily activities? Yes Any ED, urgent care, or admissions since D/C? No Chart reviewed. Call placed to patient's DIL/emergency contact, Corey Moran. Corey reports patientis doing better today. She tells me that he has been laying around a lot and she is encouraging himto get up and sit in a chair and today he did. Corey denies patient chest pain but reports he has S.O.B. due to COPD and uses continuous home oxygen at 3 L. Corey reports patient has a productive cough of clear, green tinged sputum , and Corey tells me that she called the wood window and door craftsman office to report change in color of sputum and she is waiting on a return call. Educated on S/S of worsening COPD and when to call and Corey notes understanding. She tells me that patient has an oxygen concentrator from [employer] and they are in the process of changing suppliers due to [employer]'s poor service. Corey notes that portable concentrator was ordered before patient was discharged but she has not heard from new supplier. Per chart notes, [employer] is DME company and contact number provided to Corey and she notes that she will follow up with them . Corey reports patient is able to afford food and medications and has transportation to his appointments. Medications reviewed, and Corey reports that patient organizes his own medications in weekly pill box and she checks them. She reports patient is taking his medications as prescribed. Corey denies redness, swelling or drainage from patient 's chest inci don. Educated on S/S of infection and when to call and Corey notes understanding. Corey reports the [facility] SN visited yesterday and patient will also be having PT. Corey reports patient is eating and drinking and is able to walk to the bathroom. She reports patient has a walker if he needs it.Sending referral to LACEY Levin, to review for SDOH needs. documented in this [facility]07-25-2024 Telephone encounter Note* Telephone Encounter - ROBIN Gracia CNP - 02/11/2024 2:04 PM EDT Spoke with family about patient. States Mr. Breaux has been having respiratory problems but these areno different than from prior to surgery. SOB present intermittently, especially with activity, improves with breathing treatments. Denies any swelling in extremities, incisions healing well. Encouraged patient to be seen by his Valet Manager for recommendations. Family member is going to call theiroffice to get appointment. Otherwise, they have no major concerns. Patient has follow up in person scheduled next week. They will call the office with questions or concerns. ROBIN Anglin CNP 02/11/24 [id number] Miscellaneous Notes* Telephone Encounter - ROBIN Gracia CNP - 02/11/2024 2:04 PM EDT Spoke with family about patient. States Mr. Breaux has been having respiratory problems but these areno different than from prior to surgery. SOB present intermittently, especially with activity, improves with breathing treatments. Denies any swelling in extremities, incisions healing well. Encouraged patient to be seen by his Valet Manager for recommendations. Family member is going to call theiroffice to get appointment. Otherwise, they have no major concerns. Patient has follow up in person scheduled next week. They will call the office with questions or concerns. ROBIN Anglin CNP 02/11/24 documented in this [facility]07-23-2024 History of Present illness Narrative* Mike Crump RN - 02/09/2024 2:10 PM EDT Pt Dc'd at this time to home, leaves unit in WC with RN and with friend. Pt taken with RN to vehicle, able to ambulate self and get into vehicle. VSS at time of discharge, IV removed. No needs identified. All DC instructions reviewed twice and reinforced. Pt and friend verbalized understanding. Pt leaving with prescriptions filled with Meds to Beds. * Lanie Cotton Dennis, PT - 02/09/2024 10:35 AM EDT Images from the original note were not included. PHYSICAL THERAPY [facility] Treatment Note Name/MRN: Darin Breaux ([id number]) Date of : 1945 Age: 79 y.o. Room/Bed: T1-107/T1-107 A Discharge Recommendation: 24 hour supervision or assist, Home with Home health PT Equipment Needed: No Prior Level of Function ADL Assistance: Independent Ambulation Assistance: Independent Transfer Assistance: Independent Assessment Pt demonstrating progress towards goals and able to maintain sternal precautions with mobility withminimal VC. Consistently uses pillow during transfers supv. VC for upright posture with amb 70'x2 supv. Pt demonstrates good understanding of P & C exercises. Rec home with 24 hr supv/assist and home health PT. Subjective Up in recliner at PT arrival. Agreeable to therapy, full recall of sternal precautions. Denies dizziness/nausea. RT present during amb to assess O2 needs. Pain: Pt denies any current pain. Medical Precautions: No active isolations Proper PPE donned/doffed in accordance with facility standards. Fall Risk: Hutchison Fall Risk Score: 60 (High Risk) Precautions/Restrictions: Sternal Precautions: No Pushing, No Pulling, No Lifting Greater Than 10 lbs, tele Overall Cognitive Status: WFL Overall Orientation Status: Family/Caregiver Present: none Objective Transfers/Mobility Sit to stand: Supervision Stand to sit: Supervision 2 transfers completed 1 rep from recliner and 1 rep from rollator Device(s) used: none--brief seated rest in rollator between reps of amb Ambulation Ambulation 1 Assistive device(s) used: none Assist level: Supervision Distance (ft): 70'x2 Quality of gait: slight fwd trunk flexion noted, slow demetrio with reciprocal pattern, narrow REZA. Brief seated rest between reps in rollator with VC for pursed lip breathing. Exercises Exercises Upper Extremity: P&C exercises 1-9 , 1x5. Other exercises Other exercises 1: IS x5 1000 ml Plan Continue acute PT per plan of care. Safety/Education Safety Safety Devices in place: call light within reach, left in chair, gait belt, and no alarms engaged upon entry Restraints: N/A Education Education Given To: patient Education Provided: PT Role, Gait Training, Home Exercise Program, Precautions, and Breathing Techniques Education Method: Verbal, Demonstration, and Printed Information Barriers to Learning: None Education Outcome: Verbalized Understanding and Demonstrated Understanding Outcome Measures AM-PAC AM-PAC Inpatient Mobility Raw Score (No Stairs) : 20 JH-HLM -HLM Score: Walked 25 ft or more (i.e. walked outside of room) Goals Patient Stated Goal: Get stronger. Encounter Problems Encounter Problems (Active) Cardiac Patient will perform bed mobility with modified independence in order to improve independence and prepare for out of bed mobility. (Not Addressed) Start: 02/03/24 Expected End: 03/02/24 Patient will complete sit to stand transfer with independence to least restrictive device in order to improve safety and prepare for out of bed mobility. (Progressing) Start: 02/03/24 Expected End: 03/02/24 Patient will ambulate 150+ feet or ambulate 5 minutes with modified independence with RPE of 14 or lower. (Progressing) Start: 02/03/24 Expected End: 03/02/24 Patient will ascend and descend 4 # stairs with supervision rail for balance only. (Progressing) Start: 02/03/24 Expected End: 03/02/24 Patient will be independent with P&C exercises. (Completed) Start: 02/03/24 Expected End: 03/02/24 Resolved: 02/05/24 Patient will be independent with managing secretions and home walking program. (Progressing) Start: 02/03/24 Expected End: 03/02/24 Therapy Time Individual Co-treatment Time In 1004 Time Out 1029 Minutes 25 Timed Code Treatment Minutes: 25 Minutes (TPx1, GT x1) Lanie Collins PT * Myra Gong RCP - 02/09/2024 10:25 AM EDT Images from the original note were not included. [id number]] Respiratory Therapy Home O2 Progress Note O2 saturation at rest on room air: 85% (If resting saturation was 88% or less, enter NA for the next two values) O2 saturation with exertion on room air: NA% (NA if not evaluated) O2 saturation on O2 at 3 LPM with exertion: 94% (NA if not evaluated) Patient meets criteria for home O2 Y/N = Y Patient mobile at home Y/N = Y DME Notified Y * Myra Gong RCP - 02/08/2024 10:33 AM EDT [facility] Respiratory Care Department Progress Note As part of the Respiratory Assessment Program (RAP), the following Respiratory Therapist evaluationhas been completed, including a chart review and clinical/physical assessment. Respiratory Therapist RAP Evaluation Guideline Points 0 1 2 3 4 Points Strongly Consider History Factor No Pulmonary conditions Stable Pulmonary condition(s) Surgery or Intervention that may impact Pulmonary system (at risk) Surgery or Intervention that is impacting Pulmonary system Active Exacerbation of Pulmonary Condition 1 Respiratory Pattern Regular, RR= 12-18 BURGOS or Increased RR= 19-24 Irregular, or RR= 25-30 SOB, talk in short sentences, or RR= 31-35 Severe SOB, accessory muscle use, one word answers, or RR>35 1 Aerosol Med(s), High Flow O2 Breath Sounds Clear Diminished in 1 lobe Diminished in ? 2 lobes Adventitious breath sounds Coarse crackles, Wheezes, or Diminished in >2 lobes 0 Aerosol Med(s), Bronchial Hygiene, Hyperinflation Cough & Sputum Strong cough, no secretion retention or production Weak cough, no secretion retention or production Weak cough, w/ production (less often than Q2hr), or secretion retention No cough, w/ secretion retention or production (less often than Q2hr) Significant secretion production (more often than Q2hr) or mucus plug 0 Aerosol Med(s), Bronchial Hygiene, Hyperinflation Level of Activity Ambulatory Ambulatory with Assist Up in chair or edge of bed (dangle) Non-ambulatory, bedridden with active ROM Completely paralyzed or without active ROM 1 Triage 5 0-2 Triage 4 3-5 Triage 3 6-10 Triage 2 11-14 Triage 1 ?15 Total 3 Triage Score = 4 TRIAGE SCORING - SUGGESTED FREQUENCIES Aerosol Therapy Bronchial Hygiene Hyperinflation Triage Score Q4h & PRN 1 Q4hWA (QID) & PRN 2 TID & PRN 3 BID & PRN 4 PRN 5 Therapy(s) Indicated Yes/No Aerosol Medication Q12 Hyperinflation n Bronchial Hygiene n High Flow Oxygen n RT to enter/modify frequency of treatment order in EMR/EHR to match this RAP evaluation. Based on this RAP evaluation the following therapy is being initiated: Albuterol At the following frequency: Q12 Comments: Thank you for involving Respiratory in the care of this patient, * Lev Coon - 02/08/2024 9:29 AM EDT Images from the original note were not included. PHYSICAL THERAPY [facility] Treatment Note Name/MRN: Darin Breaux ([id number]) Date of : 1945 Age: 79 y.o. Room/Bed: T1-107/T1-107 A Discharge Recommendation: 24 hour supervision or assist, Home with Home health PT Equipment Needed: No Prior Level of Function ADL Assistance: Independent Ambulation Assistance: Independent Transfer Assistance: Independent Assessment Pt progressing with 4/5 goals. Pt able to recall all sternal precautions and was compliant with precautions ~90% throughout the session. Pt required supervision with transfers, SBA with gait with no assistive device, and SBA with stairs. Pt still limited by decreased endurance and fatigue. Pt VENTURA levels when walking stayed around 15/20 or lower. Still recommend home with 24 hour supervision/assist and home with PT after pt discharge. Subjective Pt in bedside chair and agreeable to therapy. Pain: 0-10 pain scale: 3/10 Location: chest incision Medical Precautions: No active isolations Proper PPE donned/doffed in accordance with facility standards. Fall Risk: Hutchison Fall Risk Score: 60 (High Risk) Precautions/Restrictions: Sternal Precautions: No Pushing, No Pulling, No Lifting Greater Than 10 lbs Lines/Drains/Airways: tele, oxygen Chair alarm Overall Cognitive Status: WFL Overall Orientation Status: Oriented to Person, did not ask other orientation questions Family/Caregiver Present: none Objective Transfers/Mobility Sit to stand: Supervision Stand to sit: Supervision Performed 5x throughout entire session. Pt occasionally needed cueing to cross arms over chest to sit rather than reaching back for arm rest support. Device(s) used: none Ambulation Ambulation 1 Assistive device(s) used: none Assist level: SBA Distance (ft): x80 ft Quality of gait: No LOB, reciprocal stepping, B foot clearance, equal step length, slow demetrio, minimal hip and knee flex during venkatesh swing phase, 2 minute break needed before continuing, 12/20 VENTURA level reported Ambulation 2 Assistive device(s) used: none Assist level: SBA Distance (ft): x106 ft Quality of gait: No LOB, reciprocal stepping, B foot clearance, equal step length, slow demetrio, minimal hip and knee flex during venkatesh swing phase, 2 minute break needed before continuing, 15/20 VENTURA level reported Ambulation 3 Assistive device(s) used: none Assist level: SBA Distance (ft): x26 ft Quality of gait: No LOB, reciprocal stepping, B foot clearance, equal step length, slow demetrio, minimal hip and knee flex during venkatesh swing phase With all ambulation, brought rollator for pt to take seated break when needed. Posture: fair Sitting - Static: Independent Standing - Static: SBA Pt stood for a total of 4 minutes throughout the session without LOB. Cued required to breathe in through his nose and out through his mouth. Stairs Stairs 1 Assistive device(s) used: none Assist level: SBA # of steps: 2x4 Rails: right ascending and L descending Additional factors: reciprocal going up, reciprocal going down Wheeled pt in bedside chair to stairs and then wheeled pt back to room. Exercises: Pt reports completing P&C exercises 2x/day. Plan Continue acute PT per plan of care. Safety/Education Safety Safety Devices in place: call light within reach, left in chair, and chair alarm in place Restraints: N/A Education Education Given To: patient Education Provided: PT Role, PT Goals, Gait Training, Transfer Training, and Breathing Techniques Education Method: Verbal Barriers to Learning: None Education Outcome: Verbalized Understanding Outcome Measures AM-PAC AM-PAC Inpatient Mobility Raw Score : 24 AM-PAC Inpatient Mobility Raw Score (No Stairs) : 20 JH-HLM JH-HLM Score: Walked 25 ft or more (i.e. walked outside of room) Goals Patient Stated Goal: Get stronger. Encounter Problems Encounter Problems (Active) Cardiac Patient will perform bed mobility with modified independence in order to improve independence and prepare for out of bed mobility. (Not Addressed) Start: 02/03/24 Expected End: 03/02/24 Patient will complete sit to stand transfer with independence to least restrictive device in order to improve safety and prepare for out of bed mobility. (Progressing) Start: 02/03/24 Expected End: 03/02/24 Patient will ambulate 150+ feet or ambulate 5 minutes with modified independence with RPE of 14 or lower. (Progressing) Start: 02/03/24 Expected End: 03/02/24 Patient will ascend and descend 4 # stairs with supervision rail for balance only. (Progressing) Start: 02/03/24 Expected End: 03/02/24 Patient will be independent with P&C exercises. (Completed) Start: 02/03/24 Expected End: 03/02/24 Resolved: 02/05/24 Patient will be independent with managing secretions and home walking program. (Progressing) Start: 02/03/24 Expected End: 03/02/24 Therapy Time Individual Co-treatment Time In 0813 Time Out 0840 Minutes 27 Timed Code Treatment Minutes: 27 Minutes (gait, func) Lev Coon, NOBLE * Wesley Magana, ROBIN - STRUCTURAL METAL FABRICATOR APPRENTICE - 02/08/2024 5:59 AM EDT Images from the original note were not included. Cardiothoracic Surgery/CCM Progress Note PATIENT NAME: Darin Breaux DATE: 02/08/24 HPI: Darin Breaux is a 79 y.o. male referred by Dr. Valentin for CABG. Patient has history of CAD, SD, PCI, cardiac dysrhythmia, atrial fibrillation, s/p pacemaker placement, carotid artery stenosis, hyperlipidemia, HTN. Pt saw Cardiology in November 2023 and reported left sided chest pain that radiates to left arm and SOB with exertion. Stress test was ordered and completed on 01/05/24 which demonstrated small reversible perfusion defect of the apex suggestive of mild ischemia with an LVEF of 43%. Pt underwent heart catheterization on 01/12/24 which demonstrated multivessel CAD. Patient saw Dr. Vargas in the OP setting, agreed to surgical intervention, surgery scheduled for 02/02/24. Surgery/Procedure: 02/02/24: Dr. Vargas- CABGx3 (MCDUFFIE-LAD, SVG-OM1-PDA sequential), LEVH, modified MAZE with left atrial appendage clip Interval History: 02/08/24, POD# 06: Afebrile HR in the 70's regular rhythm with paced beats at times on 3L NC (baseline). Chest tubes and pacing wires removed. No acute issues overnight. Patient ambulating on unit with nursing and PT. Review of Systems Constitutional: Positive for fatigue. Negative for chills, diaphoresis and fever. Respiratory: Negative for cough, shortness of breath and wheezing. Cardiovascular: Negative for palpitations and leg swelling. Gastrointestinal: Negative for abdominal distention, abdominal pain, nausea and vomiting. Neurological: Negative for dizziness and light-headedness. Objective: Vitals: BP: 118/72, MAP (mmHg): 86, BP Method: Automatic Heart Rate: 70 Resp: 16 Temp: 36.7 C (98 F), Temp Source: Temporal BMI (Calculated): 20.8 BMP: Recent Labs 02/06/24 0042 02/07/24 0405 02/08/248 NA 131* 133* 133* K 4.0 4.4 4.2 CL 101 103 102 CO2 24 BUN 30* 34* 32* CREATININE 1.17 1.27* 1.16 CALCIUM 9.0 8.6 8.7 CBC: Recent Labs 02/06/24 0042 02/07/24 0405 02/08/24 0418 WBC 7.6 6.5 6.2 HGB 8.9* 8.6* 8.5* HCT 27.5* 27.2* 27.0* PLT 111* 147 147 MCV 89.6 92.8 92.8 RDW 16.3* 16.4* 16.5* INR: No results for input(s): "INR" in the last 72 hours. Physical Exam Vitals reviewed. Constitutional: General: He is not in acute distress. Appearance: He is not ill-appearing or diaphoretic. Cardiovascular: Rate and Rhythm: Normal rate. Pulses: Normal pulses. Heart sounds: No murmur heard. Comments: Intermittent paced rhythm. Pulmonary: Effort: Pulmonary effort is normal. Breath sounds: No wheezing, rhonchi or rales. Comments: On NC. Diminished throughout. Abdominal: General: There is no distension. Palpations: Abdomen is soft. Tenderness: There is no abdominal tenderness. Musculoskeletal: General: No swelling. Skin: General: Skin is warm and dry. Capillary Refill: Capillary refill takes less than 2 seconds. Findings: Bruising present. Comments: Surgical incisions well approximated. No redness, warmth or drainage noted. Neurological: General: No focal deficit present. Mental Status: He is alert. Assessment: CAD s/p CABG SSS, Afib s/p dual chamber [facility], on Eliquis s/p MAZE HTN HPL COPD/Emphysema (3L O2) Current tobacco use GERD AAA s/p Endovascular repair Hx PCI Post operative Pulm Management: Normal Post-operative Course Acute blood loss anemia/consumptive coagulopathy Plan: Patient status: Telemetry Continue aspirin, statin and BB. Amlodipine 2.5mg daily, titrate as needed for BP control. On Rifampin for meninigitis prophy. -Last dose tomorrow. Will restart Eliquis once done with Rifampin. Scheduled Albuterol, Spiriva, and Dulera (for home Symbicort) 3L NC, baseline. -Home O2 eval completed. -DME order placed for portable O2 concentrator. [employer] to speak to patient. Progressive mobility, out of bed for meals. Bowel regimen. GI prophy: PO protonix DVT prophy:TEDs, SCDs, and Arixtra. Consults: Endocrine signed off- no needs at discharge PT/OT: Home with home health (02/06/24). Patient lives with multiple grandchildren. His 14you grandchild contracted HIB Meningitis. Also hasan infant grandchild in the home. Per grandchild's fitness management director, all adults in the home need prophylactic treatment to protect the . Reviewed CDC guidelines, which agree with this. Rifampin 600mg qday x4 doses ordered. TCC/Discharge Planning: Will finish Rifampin doses tomorrow, likely home tomorrow vs Weds. Central Line: []Yes [x] No Arterial Line: []Yes [x] No Ny: []Yes [x] No Restraints: []Yes [x] No Patient discussed and plan of day developed from multidisciplinary rounds between Cardiothoracic Surgery (Cardiothoracic Surgeon, TACO) and Critical Care Attending Time spent 30 minutes. The time involved in the performance of this care was exclusive of separately billable procedures, teaching time and treating other patients. The time was spent personally by the attending physician for the following activities: examination of the patient, ordering and/or performing treatment, reviewing the laboratory and radiographic studies, and if applicable, ventilator management and blood gas interpretation. Cardiac Core Medications: ASA, Statin, and BB EF: 01/22/24: 65% Blood Conservation: Transfused Surgical Orderly: Dr. Valentin ([facility]) Associated attestation - Nathaniel López DO - 02/08/2024 2:58 PM EDT I have personally performed a [id number] diagnostic evaluation on this patient on date of fezjosj70/22/24. History, labs, imaging studies, and electronic medical record have been reviewed by me. This note documented by the TACO reflects my history, exam, and medical decision making. I have reviewed and agree with the care plan. Changes were made in the orders as necessary. ROS documentation wasreviewed and negative unless otherwise stated in HPI. Additional pertinent interval history, ROS, and physical exam findings: AdmitDate = 02/02/2024 LOS: 6 ON Event(s): No ETT: No NIV/HHFNC/Salter: No Sedation: No Pressors: No CT output past 24hr: 100ml Iintake/Output: Intake/Output Summary (Last 24 hours) at 02/08/2024 1451 Last data filed at 02/08/2024 0800 Gross per 24 hour Intake 710 ml Output 375 ml Net 335 ml CXR: No valid procedures specified. Assessment: CABG x3 and maze and atrial clip 02/01 CAD s/p CABG. Afib Chronic hypoxemic respir failure in setting of COPD Plan: Finish out rifampin prophy with home sick contacts. Resume eliquis. Agree w/ remainder of plan in TACO note Total care time for this patient including direct patient contact, management of life support systems, review of data including imaging and labs, and discussions with other team members and physicians at least 35min so far today, excluding procedures. * ROBIN Evans CNP - 02/07/2024 1:48 PM EDT Epicardial pacing wire cut without difficulty per protocol. Patient and nurse educated on possible complications. Patient tolerated well. Will continue to monitor. Chest tubes assessed: no air leak, subcutaneous air noted. Chest tubes removed without difficulty and dressing applied. Patient tolerated well. Patient and nurse educated on possible complications toobserve for. Will continue to monitor. Patient began V-pacing at rate 117, he was asymptomatic. Gave 5mg IVP Metoprolol- HR returned to Vpaced at 70 shortly after. Needs BM- lactulose ordered. ROBIN Evans CNP 02/07/24 * Ad Marshall RRT - 02/07/2024 12:07 PM EDT Images from the original note were not included. [id number]] Respiratory Therapy Home O2 Progress Note O2 saturation at rest on room air: 84% (If resting saturation was 88% or less, enter NA for the next two values) O2 saturation with exertion on room air: na% (NA if not evaluated) O2 saturation on O2 at na LPM with exertion: na% (NA if not evaluated) Patient meets criteria for home O2 Y/N = y Patient mobile at home Y/N = y DME Notified n (pt already wears 3 liters oxygen at home prior to admission). * 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, JOB ANALYSIS MANAGER - STRUCTURAL METAL FABRICATOR APPRENTICE - 02/07/2024 7:50 AM EDT Images from the original note were not included. Cardiothoracic Surgery/[facility] Progress Note PATIENT NAME: Darin Breaux DATE: 02/07/24 HPI: Darin Breaux is a 79 y.o. male referred by Dr. Valentin for CABG. Patient has history of CAD, SD, PCI, cardiac dysrhythmia, atrial fibrillation, s/p pacemaker placement, carotid artery stenosis, hyperlipidemia, HTN. Pt saw Cardiology in November 2023 and reported left sided chest pain that radiates to left arm and SOB with exertion. Stress test was ordered and completed on 01/05/24 which demonstrated small reversible perfusion defect of the apex suggestive of mild ischemia with an LVEF of 43%. Pt underwent heart catheterization on 01/12/24 which demonstrated multivessel CAD. Patient saw Dr. Vargas in the OP setting, agreed to surgical intervention, surgery scheduled for 02/02/24. Surgery: 02/02/24: Dr. Vargas- CABGx3 (MCDUFFIE-LAD, SVG-OM1-PDA sequential), LEV[place], modified MAZE with left atrial appendage clip Interval History: 02/07/24, POD# 5: VSS, Afebrile, NSR on tele. On 3L NC, home dose. Resting in chair, discussed needfor home O2 eval to re-eval O2 needs. He is interested in new oxygen company because he would like a portable O2 machine. Cr- 1.27 (1.17 1.31) Review of Systems Constitutional: Negative for activity change, appetite change, diaphoresis, fatigue and fever. Respiratory: Positive for cough, shortness of breath and wheezing. Cardiovascular: Negative for chest pain, palpitations and leg swelling. Gastrointestinal: Negative for abdominal distention, abdominal pain, nausea and vomiting. Skin: Negative for color change, pallor and rash. Objective: CT output cc/24hrs: 290 mL UO cc/24hrs: 575 mL Vitals: BP: 99/65, MAP (mmHg): 75, BP Method: Automatic Heart Rate: 70 Resp: 16 Temp: 36.8 C (98.2 F), Temp Source: Temporal BMI (Calculated): 20.92 CXR: BMP: Recent Labs 02/05/24 0022 02/06/24 0042 02/07/24 0405 NA 131* 131* 133* K 3.9 4.0 4.4 CL 103 101 103 CO2 21* 23 24 BUN 26* 30* 34* CREATININE 1.31* 1.17 1.27* CALCIUM 9.2 9.0 8.6 CBC: Recent Labs 02/05/24 1155 02/06/24 0042 02/07/24 0405 WBC 8.0 7.6 6.5 HGB 9.0* 8.9* 8.6* HCT 27.7* 27.5* 27.2* PLT 105* 111* 147 MCV 90.2 89.6 92.8 RDW 16.4* 16.3* 16.4* INR: Recent Labs 02/05/24 0022 INR 1.0 Physical Exam Cardiovascular: Rate and Rhythm: Normal rate. Heart sounds: Normal heart sounds. No murmur heard. No friction rub. Comments: V-paced Pulmonary: Effort: Pulmonary effort is normal. Breath sounds: Decreased breath sounds, wheezing and rhonchi present. Abdominal: General: Bowel sounds are normal. There is no distension. Palpations: Abdomen is soft. Tenderness: There is no abdominal tenderness. Musculoskeletal: Right lower leg: No edema. Left lower leg: No edema. Skin: General: Skin is warm and dry. Capillary Refill: Capillary refill takes less than 2 seconds. Findings: Bruising and ecchymosis present. Comments: Surgical Incisions: well approximate; clean dry with no drainage noted. Surrounding skin no redness, warmth, or signs of infection noted. Neurological: Mental Status: He is alert. Psychiatric: Behavior: Behavior is cooperative. Assessment: CAD s/p CABG SSS, Afib s/p dual chamber 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 Espitia, agrees with treatment - Must hold Eliquis while on Rifampin. Patient had MAZE/Atriclip, currently not in Afib. Will resume Eliquis once Rifampin complete. Scheduled Albuterol, Spiriva, and Dulera (for home Symbicort) GI prophy: PO protonix DVT prophy:TEDs, SCDs, and arixtra Interventions: CT-> d/c Home O2 eval OOB, progress mobility Pulmonary hygiene: IS and Acapella Consults: Endocrine signed off- no needs at discharge PT/OT: 24 hour supervision or assist, Home with Home health PT Patient lives with multiple grandchildren. His 14you grandchild contracted HIB Meningitis. Also hasan grandchild in the home. Per grandchild's fitness management director, all adults in the home need prophylactic treatment to protect the infant. Reviewed CDC guidelines, which agree with this. Rifampin 600mg qday x4 doses ordered TCC/Discharge Planning Likely d/c tomorrow Central Line: []Yes [x] No Arterial Line: []Yes [x] No Ny: []Yes [x] No Restraints: []Yes [x] No Patient discussed and plan of day developed from multidisciplinary rounds between Cardiothoracic Surgery (Cardiothoracic Surgeon, TACO) and Critical Care Attending Cardiac Core Medications: ASA, Statin, and BB EF: 01/22/24: 65% Blood Conservation: transfused intraop & postop Surgical Orderly: Dr. Valentin ([facility]) Associated attestation - Austen Suarez MD - 02/07/2024 10:30 AM EDT I have personally performed a face to face diagnostic evaluation on this patient today on 02/07/24.Labs, imaging studies, and electronic medical record notes on [facility] have been reviewed by me. This note documented and discussed by the []intelligence support officer []Fellow [x] TACO reflects my history, exam and medical decision making. I have reviewed and agree with the care plan. Changes were made in the orders as necessary. ROS documentation was reviewed and negative unless otherwise stated in the HPI. My history, exam, assessment and plan are as follows: Some elements copied from my notes, which have been updated where appropriate. All reflect current medical decision making from 02/07/24. Physical Exam listed was completed in entirely on 02/07/24 and is unchanged except where noted. Time spent for coordination of care: a subsequent visit: 25 minutes (Level I) In chair, resp unlabored, faint exp wheezes Heart paced Severe CAD, unstable angina, Afib, pacer, HTN, HLD 02/01 s/p CABG x 3, modified MAZE, Atri-Clip Atelectasis post op COPD, chronic resp failure on home O2 Expected anemia, thrombocytopenia post op On rifampin abx prophylaxis Cont albuterol, tiotropium, dulera Cont ASA, statin, b-morteza DVT prophy--arixtra Slight elevated Cr, monitor * Shanell Guevara PTA - 02/06/2024 2:36 PM EDT Images from the original note were not included. PHYSICAL THERAPY [facility] Treatment Note Name/MRN: Darin Breaux ([id number]) Date of : 1945 Age: 79 y.o. Room/Bed: T1-107/T1-107 A Discharge Recommendation: 24 hour supervision or assist, Home with Home health PT Equipment Needed: No Prior Level of Function ADL Assistance: Independent Ambulation Assistance: Independent Transfer Assistance: Independent Assessment Pt able to progress ambulation and complete stair trial this session. Intermittent cues to maintainprecautions. Required x1 seated rest break of ~5-10 minutes after ~ 150ft of ambulation. Additionalrest break after stair navigation and pt was pushed back to his room via w/c d/t fatigue. Pt educated on RPE scale, reported "17-18/20" at his toughest point. Encouraged pt to speak up when that level of fatigue occurs and to take rest breaks sooner. Educated on recovery breathing/pursed lip breathing as needed. Overall, SBA for all activities. Continue to anticipate discharge home with home PT to increase pt strength and endurance. Subjective Pt pleasant and agreeable to PT. Cleared by nursing. Pt able to recite 3/3 sternal precautions. Pain: Pt denies any current pain. Medical Precautions: No active isolations Proper PPE donned/doffed in accordance with facility standards. Fall Risk: Hutchison Fall Risk Score: 45 (High Risk) Precautions/Restrictions: Sternal Precautions: No Pushing, No Pulling, No Lifting Greater Than 10 lbs Lines/Drains/Airways: CVC R internal jugular, pacer wires, introducer Right, cath, chest tube, tele Overall Cognitive Status: WFL Overall Orientation Status: Oriented x4 Family/Caregiver Present: none Objective Transfers/Mobility Sit to stand: SBA Stand to sit: SBA, Contact Guard X1 to/from recliner, x2 to/from wheel chair. X1 cue to maintain sternal precautions during sit to stand. No LOB or instability noted. Pt impulsive initial stand to sit to wheel chair due to fatigue- pt abondoned walker and reached forward/leaned into wheel chair while ~3ft away. Max cues to correct. Device(s) used: none and front wheeled walker Ambulation Ambulation 1 Assistive device(s) used: front wheeled walker Assist level: SBA Distance (ft): 150ft Quality of gait: reciprocal stepping, shuffling, slow demetrio Good, upright posture initially. Increased forward flexed posture final ~15ft due to fatigue. Ambulation 2 Assistive device(s) used: front wheeled walker Assist level: SBA Distance (ft): 30ft Quality of gait: reciprocal stepping, slow demetrio From wheel chair to stair trial and back. Seated rest break/pushed back in wheel chair to room. Ambulation 3 Assistive device(s) used: none Assist level: Contact Guard Distance (ft): 8ft Quality of gait: No LOB, reciprocal stepping, uneven step length, decreased step length. Stairs Stairs 1 Assistive device(s) used: none Assist level: Contact Guard # of steps: 4 Rails: right Additional factors: non-reciprocal going up, non-reciprocal going down Pt fatigued after single stair trial. Ambulated back ~15ft to wheel chair for rest break. No LOB orinstability throughout trial. Plan Continue acute PT per plan of care. Safety/Education Safety Safety Devices in place: All fall risk precautions in place, call light within reach, left in chair, gait belt, nurse notified, and no alarms engaged upon entry Restraints: No Education Education Given To: patient Education Provided: PT Role, PT Goals, Gait Training, Plan of Care, Precautions, Transfer Training,Energy Conservation, Discharge Recommendations, Benefits of Increasing Activity, and Breathing Techniques Education Method: Verbal and Demonstration Barriers to Learning: None Education Outcome: Verbalized Understanding and Demonstrated Understanding Outcome Measures AM-PAC AM-PAC Inpatient Mobility Raw Score : 23 AM-PAC Inpatient Mobility Raw Score (No Stairs) : 20 JH-HLM JH-HLM Score: Walked 25 ft or more (i.e. walked outside of room) Goals Patient Stated Goal: Get stronger. Encounter Problems Encounter Problems (Active) Cardiac Patient will perform bed mobility with modified independence in order to improve independence and prepare for out of bed mobility. (Not Addressed) Start: 02/03/24 Expected End: 03/02/24 Patient will complete sit to stand transfer with independence to least restrictive device in order to improve safety and prepare for out of bed mobility. (Progressing) Start: 02/03/24 Expected End: 03/02/24 Patient will ambulate 150+ feet or ambulate 5 minutes with modified independence with RPE of 14 or lower. (Progressing) Start: 02/03/24 Expected End: 03/02/24 Patient will ascend and descend 4 # stairs with supervision rail for balance only. (Progressing) Start: 02/03/24 Expected End: 03/02/24 Patient will be independent with P&C exercises. (Completed) Start: 02/03/24 Expected End: 03/02/24 Resolved: 02/05/24 Patient will be independent with managing secretions and home walking program. (Progressing) Start: 02/03/24 Expected End: 03/02/24 Therapy Time Individual Co-treatment Time In 1346 Time Out 1425 Minutes 39 Timed Code Treatment Minutes: 39 Minutes (FAx1, GTx2) Shanell Guevara PTA * 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, ROBIN - RENETTA - 02/06/2024 7:22 AM EDT Images from the original note were not included. Cardiothoracic Surgery/CCM Progress Note PATIENT NAME: Darin Breaux DATE: 02/06/24 HPI: Darin Breaux is a 79 y.o. male referred by Dr. Valentin for CABG. Patient has history of CAD, SD, PCI, cardiac dysrhythmia, atrial fibrillation, s/p pacemaker placement, carotid artery stenosis, hyperlipidemia, HTN. Pt saw Cardiology in November 2023 and reported left sided chest pain that radiates to left arm and SOB with exertion. Stress test was ordered and completed on 01/05/24 which demonstrated small reversible perfusion defect of the apex suggestive of mild ischemia with an LVEF of 43%. Pt underwent heart catheterization on 01/12/24 which demonstrated multivessel CAD. Patient saw Dr. Vargas in the OP setting, agreed to surgical intervention, surgery scheduled for 02/02/24. Surgery: 02/02/24: Dr. Vargas- CABGx3 (MCDUFFIE-LAD, SVG-OM1-PDA sequential), LEVH, modified MAZE with left atrial appendage clip Interval History: 02/06/24, POD# 4: VSS, Afebrile, NSR on tele. On 3L NC, home dose. Large amount of CT output yesterday after walking, Hgb remained stable. Needs BM. Resting in chair, pain well controlled, no concerns this morning. Review of Systems Constitutional: Negative for activity change, appetite change, diaphoresis, fatigue and fever. Respiratory: Positive for cough and shortness of breath. Negative for wheezing. Cardiovascular: Negative for chest pain, palpitations and leg swelling. Gastrointestinal: Negative for abdominal distention, abdominal pain, nausea and vomiting. Skin: Negative for color change, pallor and rash. Objective: CT output cc/24hrs: 830 mL UO cc/24hrs: 1,400 mL Vitals: BP: 123/71, MAP (mmHg): 86, BP Method: Automatic Heart Rate: 82 Resp: 16 Temp: 36.6 C (97.8 F), Temp Source: Temporal BMI (Calculated): 21.22 CXR: BMP: Recent Labs 02/04/24 0201 02/05/24 0022 02/06/24 0042 NA 134* 131* 131* K 4.1 3.9 4.0 CL 104 103 101 CO2 21* 21* 23 BUN 20 26* 30* CREATININE 1.00 1.31* 1.17 CALCIUM 9.5 9.2 9.0 MG 1.8 -- -- CBC: Recent Labs 02/05/24 0022 02/05/24 1155 02/06/24 0042 WBC 7.7 8.0 7.6 HGB 8.6* 9.0* 8.9* HCT 26.2* 27.7* 27.5* PLT 89* 105* 111* MCV 89.1 90.2 89.6 RDW 16.5* 16.4* 16.3* INR: Recent Labs 02/04/24 0201 02/05/24 0022 INR 1.1 1.0 Physical Exam Cardiovascular: Rate and Rhythm: Normal rate. Heart sounds: Normal heart sounds. No murmur heard. No friction rub. Comments: V-paced Pulmonary: Effort: Pulmonary effort is normal. Breath sounds: Decreased breath sounds, wheezing and rhonchi present. Abdominal: General: Bowel sounds are normal. There is no distension. Palpations: Abdomen is soft. Tenderness: There is no abdominal tenderness. Musculoskeletal: Right lower leg: No edema. Left lower leg: No edema. Skin: General: Skin is warm and dry. Capillary Refill: Capillary refill takes less than 2 seconds. Findings: Bruising and ecchymosis present. Comments: Surgical Incisions: well approximate; clean dry with no drainage noted. Surrounding skin no redness, warmth, or signs of infection noted. Neurological: Mental Status: He is alert. Psychiatric: Behavior: Behavior is cooperative. Assessment: CAD s/p CABG SSS, Afib s/p dual chamber 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 Espitia, agrees with treatment - Must hold Eliquis while on Rifampin. Patient had MAZE/Atriclip, currently not in Afib. Will resume Eliquis once Rifampin complete. MOM 60mg x1 Scheduled Albuterol, Spiriva, and Dulera (for home Symbicort) GI prophy: PO protonix DVT prophy:TEDs, SCDs, and arixtra Interventions: CT-> water seal- continue today for suly CT output OOB, progress mobility Pulmonary hygiene: IS and Acapella Consults: Endocrine signed off- no needs at discharge PT/OT: 24 hour supervision or assist, Home with Home health PT Patient lives with multiple grandchildren. His 14you grandchild contracted HIB Meningitis. Also hasan grandchild in the home. Per grandchild's fitness management director, all adults in the home need treated prophylactic to protect the . Reviewed CDC guidelines, which agree with this. Rifampin 600mgqday x4 doses ordered TCC/Discharge Planning Likely d/c 1-2 days Central Line: []Yes [x] No Arterial Line: []Yes [x] No Ny: []Yes [x] No Restraints: []Yes [x] No Patient discussed and plan of day developed from multidisciplinary rounds between Cardiothoracic Surgery (Cardiothoracic Surgeon, TACO) and Critical Care Attending Cardiac Core Medications: ASA, Statin, and BB EF: 01/22/24: 65% Blood Conservation: transfused intraop & postop Surgical Orderly: Dr. Valentin ([facility]) Associated attestation - Austen Suarez MD - 02/06/2024 2:04 PM EDT I have personally performed a face to face diagnostic evaluation on this patient today on 02/06/24.Labs, imaging studies, and electronic medical record notes on [facility] have been reviewed by me. This note documented and discussed by the []intelligence support officer []Fellow [x] TACO reflects my history, exam and medical decision making. I have reviewed and agree with the care plan. Changes were made in the orders as necessary. ROS documentation was reviewed and negative unless otherwise stated in the HPI. My history, exam, assessment and plan are as follows: Some elements copied from my notes, which have been updated where appropriate. All reflect current medical decision making from 02/06/24. Physical Exam listed was completed in entirely on 02/06/24 and is unchanged except where noted. Time spent for coordination of care: a subsequent visit: 25 minutes (Level I) Resting in chair, resp unlabored, suspect chronic exp wheezes Severe CAD, unstable angina, Afib, pacer, HTN, HLD 02/01 s/p CABG x 3, modified MAZE, Atri-Clip Atelectasis post op COPD, chronic resp failure on home O2 Expected anemia, thrombocytopenia post op Prior to discharge home, pt to have rifampin abx prophylaxis--child less than 4 years old in household and Hib meningitis in another household member. Cont albuterol, tiotropium, dulera On ASA, statin, b-morteza DVT prophy--arixtra * Lev Madrigaldariel - 02/05/2024 9:35 AM EDT Images from the original note were not included. PHYSICAL THERAPY [facility] Treatment Note Name/MRN: Darin Breaux ([id number]) Date of : 1945 Age: 79 y.o. Room/Bed: T1-107/T1-107 A Discharge Recommendation: 24 hour supervision or assist, Home with Home health PT Equipment Needed: No (Patient reports he has a wheeled walker at home.) Prior Level of Function ADL Assistance: Independent Ambulation Assistance: Independent Transfer Assistance: Independent Assessment Pt completed one goal and is progressing with remaining 4/5 goals. Pt remembered all sternal precautions except for "move in a tube." Pt was compliant with sternal precautions ~90% throughout today'ssession. Pt required SBA with all mobility today. Oxygen levels stayed in the 90's during gait withNezzie, but dropped to the mid 80's with sit to stand transfers - oxygen levels increased back to mid 90's with a 30 second to minute break. Pt reports high compliance with P&C and IS exercises. Assess stairs next visit as well as bed mobility with HOB flat. Still recommend home with 24 hour supervision/assist with home health PT after pt discharge. Subjective Pt in bed side chair and agreeable to therapy. Pt reports slight pain at chest incision site and L calf. Pain: 0-10 pain scale: 2/10 Location: Chest incision site and L calf Medical Precautions: No active isolations Proper PPE donned/doffed in accordance with facility standards. Fall Risk: Hutchison Fall Risk Score: 60 (High Risk) Precautions/Restrictions: Sternal Precautions: No Pushing, No Pulling, No Lifting Greater Than 10 lbs Lines/Drains/Airways: CVC R internal jugular, pacer wires, introducer Right, cath, chest tube, tele, oxygen Overall Cognitive Status: WFL Overall Orientation Status: Oriented to Person, did not ask other orientation questions Family/Caregiver Present: none Objective Bed Mobility Supine to sit: SBA Sit to supine: SBA HOB elevated grossly 30 degrees. Pt hugging pillow. Pt slightly used L UE to help sit up to EOB during supine to sit - cued pt to hold onto pillow. Transfers/Mobility Sit to stand: SBA Stand to sit: SBA Stand pivot: SBA Performed sit to stand and stand to sit 10x throughout session wit no assistive device. Pt hugging pillow during all transfers. Pt at first rocked forward and back to STS, but cued pt to try to standwithout rocking with pt able to complete full STS easily. Oxygen levels dropped from mid 90's to mid 80's when performing sit to stands. Gave pt 30 sec to 1 minute break with SpO2 levels increasing back to mid 90's. Pt intermittently would use his L UE to try to adjust himself when seated in chair - cued pt to lean forward and push with his feet to adjust himself in chair while holding pillow. Ptperformed stand pivot from bedside chair with Nezzie and then performed stand pivot from bed back to bedside chair without assistive device. Pt demonstrated good balance with second stand pivot. Device(s) used: none and Nezzie Ambulation Ambulation 2 Assistive device(s) used: Nezzie Assist level: SBA Distance (ft): 2x112 ft Quality of gait: No LOB, reciprocal stepping, B foot clearance, equal step length, slow demetrio, minimal hip and knee flex during venkatesh swing phase, took one standing break for 1-2 minutes, SpO2 levelsstayed in 90's Posture: fair Sitting - Static: Independent Standing - Static: SBA Standing - Dynamic: SBA Pt demonstrated good static sitting balance while holding pillow. Pt demonstrated good static balance with and without Nezzie. Exercises IS exercise 1x10 - pt able to get up ~1300 mL. Pt reported completing P&C exercises 2x since last visit. Pt reports completing IS exercises 15x/hour. Plan Continue acute PT per plan of care. Safety/Education Safety Safety Devices in place: call light within reach and left in chair Restraints: N/A Education Education Given To: patient Education Provided: PT Role, PT Goals, and Transfer Training Education Method: Verbal Barriers to Learning: None Education Outcome: Verbalized Understanding Outcome Measures AM-PAC AM-PAC Inpatient Mobility Raw Score (No Stairs) : 20 JH-HLM JH-HLM Score: Walked 25 ft or more (i.e. walked outside of room) Goals Patient Stated Goal: Get stronger. Encounter Problems Encounter Problems (Active) Cardiac Patient will perform bed mobility with modified independence in order to improve independence and prepare for out of bed mobility. (Progressing) Start: 02/03/24 Expected End: 03/02/24 Patient will complete sit to stand transfer with independence to least restrictive device in order to improve safety and prepare for out of bed mobility. (Progressing) Start: 02/03/24 Expected End: 03/02/24 Patient will ambulate 150+ feet or ambulate 5 minutes with modified independence with RPE of 14 or lower. (Progressing) Start: 02/03/24 Expected End: 03/02/24 Patient will ascend and descend 4 # stairs with supervision rail for balance only. (Not Addressed) Start: 02/03/24 Expected End: 03/02/24 Patient will be independent with P&C exercises. (Completed) Start: 02/03/24 Expected End: 03/02/24 Resolved: 02/05/24 Patient will be independent with managing secretions and home walking program. (Progressing) Start: 02/03/24 Expected End: 03/02/24 Therapy Time Individual Co-treatment Time In 0854 Time Out 0925 Minutes 31 Timed Code Treatment Minutes: 31 Minutes (gait, func) Lev Coon, SPT * Elsa Saha RN - 02/05/2024 7:08 AM EDT Wound Care consulted for Pressure Injury Prevention. Pt's Elio= 20, pt is no longer at risk. Skin Care Precaution order set in place. Will continue to follow peripherally. Please voicera or secure chat message with any questions. Cleopatra Saha RN, [facility] * Mely Lisandra Patricia, JOB ANALYSIS MANAGER - STRUCTURAL METAL FABRICATOR APPRENTICE - 02/05/2024 6:15 AM EDT Images from the original note were not included. Cardiothoracic Surgery/[facility] Progress Note PATIENT NAME: Darin Breaux DATE: 02/05/24 HPI: Darin Breaux is a 79 y.o. male referred by Dr. Valentin for CABG. Patient has history of CAD, SD, PCI, cardiac dysrhythmia, atrial fibrillation, s/p pacemaker placement, carotid artery stenosis, hyperlipidemia, HTN. Pt saw Cardiology in November 2023 and reported left sided chest pain that radiates to left arm and SOB with exertion. Stress test was ordered and completed on 01/05/24 which demonstrated small reversible perfusion defect of the apex suggestive of mild ischemia with an LVEF of 43%. Pt underwent heart catheterization on 01/12/24 which demonstrated multivessel CAD. Patient saw Dr. Vargas in the OP setting, agreed to surgical intervention, surgery scheduled for 02/02/24. Surgery: 02/02/24: Dr. Vargas- CABGx3 (MCDUFFIE-LAD, SVG-OM1-PDA sequential), LEVH, modified MAZE with left atrial appendage clip Interval History: 02/05/24, POD# 3 VSS overnight, afebrile. NSR on tele. On 3L NC. Resting in chair, states he is feeling pretty good except when he has his "emphysema attacks", which he states he has at home. Pain well controlled. Na- 131 (134) Cr- 1.31 (1.0 1.14) Review of Systems Constitutional: Positive for activity change, appetite change and fatigue. Negative for diaphoresisand fever. Respiratory: Positive for cough and shortness of breath. Negative for wheezing. Cardiovascular: Negative for chest pain, palpitations and leg swelling. Gastrointestinal: Positive for nausea. Negative for abdominal distention, abdominal pain and vomiting. Skin: Negative for color change, pallor and rash. Objective: CT output cc/24hrs: 410 mL UO cc/24hrs: 1,050 mL Vitals: BP: 131/66, MAP (mmHg): 86, BP Method: Automatic Heart Rate: 74 Resp: 20 Temp: 36.5 C (97.7 F), Temp Source: Temporal BMI (Calculated): 21.39 CXR: BMP: Recent Labs 02/02/24 1131 02/02/24 1419 02/02/24 1932 02/03/24 0357 02/03/24 1541 02/04/24 0201 02/05/24 0022 NA 138 < > 138 138 134* 134* 131* K 4.2 < > 4.5 4.6 4.3 4.1 3.9 CL 109* < > 110* 109* 104 104 103 CO2 24 < > 21* 20* 20* 21* 21* BUN 19 < > 20 20 20 20 26* CREATININE 1.32* < > 1.28* 1.11 1.14 1.00 1.31* CALCIUM 8.4 < > 8.7 8.7 9.0 9.5 9.2 MG 2.9* < > 2.2 2.1 -- 1.8 -- PHOS 4.0 -- 3.5 -- -- -- -- < > = values in this interval not displayed. CBC: Recent Labs 02/03/2435602/04/24 02002/05/24 0022 WBC 9.2 11.7* 7.7 HGB 10.2 9.5* 9.2* 8.6* HCT 29.4* 28.5* 26.2* PLT 114* 107* 89* MCV 91.6 90.5 89.1 RDW 16.4* 16.6* 16.5* INR: Recent Labs 02/03/24 03502/04/24 0201 02/05/24 0022 INR 1.1 1.1 1.0 Physical Exam Cardiovascular: Rate and Rhythm: Normal rate. Heart sounds: Normal heart sounds. No murmur heard. No friction rub. Comments: V-paced Pulmonary: Effort: Pulmonary effort is normal. Breath sounds: Decreased breath sounds, wheezing and rhonchi present. Abdominal: General: Bowel sounds are normal. There is no distension. Palpations: Abdomen is soft. Tenderness: There is no abdominal tenderness. Musculoskeletal: Right lower leg: No edema. Left lower leg: No edema. Skin: General: Skin is warm and dry. Capillary Refill: Capillary refill takes less than 2 seconds. Findings: Bruising and ecchymosis present. Comments: Surgical Incisions: well approximate; clean dry with no drainage noted. Surrounding skin no redness, warmth, or signs of infection noted. Neurological: Mental Status: He is alert. Psychiatric: Behavior: Behavior is cooperative. Assessment: CAD s/p CABG SSS, Afib s/p dual chamber [facility], on Eliquis s/p MAZE HTN HPL COPD/Emphysema (3L O2) Current tobacco use GERD AAA s/p Endovascular repair Hx PCI Post operative Pulm Management: Normal Post-operative Course Acute blood loss anemia/consumptive coagulopathy Plan: Patient status: tele Medications: ASA/Statin Increase BB- Metoprolol 25mg BID Decrease amlodipine to 2.5mg - had episodes of hypotension yesterday Resume home Eliquis (Afib) Scheduled Albuterol, Spiriva, and Dulera (for home Symbicort) GI prophy: PO protonix DVT prophy:TEDs, SCDs, and Patient on OAC/NOAC Interventions: CT-> water seal- continue today for suly CT output OOB, progress mobility Pulmonary hygiene: IS and Acapella Consults: Endocrine signed off- no needs at discharge PT/OT: 24 hour supervision or assist, Home with Home health PT TCC/Discharge Planning TBD Central Line: [x]Yes [] No Arterial Line: []Yes [x] No Ny: []Yes [x] No Restraints: []Yes [x] No Patient discussed and plan of day developed from multidisciplinary rounds between Cardiothoracic Surgery (Cardiothoracic Surgeon, TACO) and Critical Care Attending Cardiac Core Medications: ASA, Statin, and No BB due to hypotension EF: 01/22/24: 65% Blood Conservation: transfused intraop & postop Surgical Orderly: Dr. Valentin ([facility]) Associated attestation - Austen Suarez MD - 02/05/2024 10:41 AM EDT I have personally performed a face to face diagnostic evaluation on this patient today on 02/05/24.Labs, imaging studies, and electronic medical record notes on [facility] have been reviewed by me. This note documented and discussed by the []intelligence support officer []Fellow [x] TACO reflects my history, exam and medical decision making. I have reviewed and agree with the care plan. Changes were made in the orders as necessary. ROS documentation was reviewed and negative unless otherwise stated in the HPI. My history, exam, assessment and plan are as follows: Some elements copied from my notes, which have been updated where appropriate. All reflect current medical decision making from 02/05/24. Physical Exam listed was completed in entirely on 02/05/24 and is unchanged except where noted. Time spent for coordination of care: a subsequent visit: 25 minutes (Level I) Up in chair, on nasal cannula, resp unlabored, +scattered wheezes bilateral Heart paced Severe CAD, unstable angina, Afib, pacer, HTN, HLD 02/01 s/p CABG x 3, modified MAZE, Atri-Clip COPD, chronic resp failure on home O2 Expected anemia post op Cont albuterol, tiotropium, dulera On ASA, statin, b-morteza, home apixaban started * Brittney Oliveros - 02/04/2024 11:37 AM EDT Images from the original note were not included. OCCUPATIONAL THERAPY [facility] INITIAL EVALUATION Name/MRN: Darin Breaux ([id number]) Evaluation Date: 02/04/2024 Date of : 1945 Admission Date: 02/02/2024 5:10 AM Age: 79 y.o. Room/Bed: T1-107/T1-107 A Discharge Recommendation: IP Rehab Equipment Needed: (Continue to assess) Assessment IMPRESSION: Pt is a 79 y/o male s/p CABG x3 02/01. Pt limited due to SOB, sternal precautions, and decreased endurance. Pt independent with ADLs and functional mobility at baseline. Pt performed donning/doffing socks with SBA and required increased time due to fatigue. Pt performed sit ><standfrom recliner x2 with min A. Pt requiring some verbal cues for sternal precautions. Recommending IPR upon discharge. Admitting Diagnosis: Atherosclerotic heart disease of [place] coronary artery, CABG x3 Performance Deficits /Impairments: Decreased Endurance Prognosis: Good Decision Making: Low Complexity Subjective RN okayed for participation. Pt in recliner upon arrival. Pt pleasant and agreeable to therapy. Pain: Pt states that his L leg is sore and his chest is sore. Past Medical History: Past Medical History: Diagnosis Date AAA (abdominal aortic aneurysm) ([facility]) Arthritis Atrial fibrillation (HCC) Carotid artery stenosis COPD (chronic obstructive pulmonary disease) ([facility]) Coronary artery disease GERD (gastroesophageal reflux disease) Hyperlipidemia Hypertension Myocardial infarction ([facility]) Presence of permanent cardiac pacemaker Past Surgical History: Past Surgical History: Procedure Laterality Date ABDOMINAL AORTIC ANEURYSM REPAIR BACK SURGERY lumbar discectomy CARPAL TUNNEL RELEASE Right CATARACT EXTRACTION Bilateral COLONOSCOPY CORONARY ANGIOPLASTY WITH STENT PLACEMENT 1996 CORONARY STENT PLACEMENT HERNIA REPAIR Bilateral inguinal TRANSURETHRAL RESECTION OF PROSTATE Admission Diagnosis: Patient Active Problem List Diagnosis Date Noted Severe malnutrition (CMS/HCC) ([facility]) 02/03/2024 CAD in [place] artery 02/02/2024 Medical Precautions: No active isolations Proper PPE donned/doffed in accordance with facility standards. Fall Risk: Hutchison Fall Risk Score: 35 (Medium Risk) Precautions/Restrictions: Sternal Precautions: No Pushing, No Pulling, No Lifting Greater Than 10 lbs Lines/Drains/Airways: CVC R internal jugular, pacer wires, introducer Right, cath, chest tube, tele Family/Caregiver Present: none Overall Cognitive Status: WNL Overall Orientation Status: Oriented x4 Social/Functional History Patient admitted from home. Lives With: daughter in law Type of Home: single family home Home Layout: Single Level Home Home Access: Stairs to Enter with Rails (# of stairs: 4) Home Equipment: front wheeled walker and electric scooter Prior Level of Function ADL Assistance: Independent Ambulation Assistance: Independent Transfer Assistance: Independent Objective ADLs LE Dressing: SBA Upper Extremity Assessment AROM: WNL; while maintaining sternal precautions PROM: Not assessed this session Strength: WNL; while maintaining sternal precautions Vision: wears glasses for reading and and are NOT being used during the eval Hearing: normal Bed Mobility Pt in recliner at start and end of session. Bed mobility not assessed. Transfers/Functional Mobility Sit to stand: Min Assist Stand to sit: Min Assist Pt performed sit><stand x2 with min A from recliner. Pt had to be given verbal cue to not usearms to push up from joy. Pt then used heart shaped pillow, and abided by precautions. Pt presenting with increasing HR to 126 upon standing. Pt experiencing SOB and presenting with UE tremors. RN notified. Pt did not ambulate this session. Once seated back to recliner pt HR steady in high 80s to low 90s. Device(s) used: None Tremors: yes AM-PAC AM-PAC Inpatient Daily Activity Raw Score: 24 ADL Inpatient [facility] G-Code Modifier: CH Plan Pt would benefit from skilled acute OT services to address Strengthening, ROM, Self-Care/ADL Training, Functional Mobility Training, and Endurance Training. Frequency: 5x/week for 4 weeks Barriers: Lower extremity weakness, Decreased endurance, and New weightbearing/ROM restrictions Safety/Education Safety Safety Devices in place: All fall risk precautions in place, call light within reach, left in chair, nurse notified, and no alarms engaged upon entry Restraints: No Education Education Given To: patient Education Provided: OT Role, Plan of Care, Precautions, and Discharge Recommendations Education Method: Verbal Barriers to Learning: None Education Outcome: Verbalized Understanding and Demonstrated Understanding Goals Patient Stated Goal: To go home Encounter Problems Encounter Problems (Active) Balance Patient will maintain dynamic standing balance for 5-10 minutes with independence in order to demonstrate decreased risk of falling. Start: 02/04/24 Expected End: 03/03/24 Dressing Upper Extremities Patient will complete upper body dressing independently Start: 02/04/24 Expected End: 03/03/24 Dressings Lower Extremities Patient will dress lower body independently Start: 02/04/24 Expected End: 03/03/24 Safety Patient will recall/demonstrate ROM restrictions with all functional mobility in order to promote healing and safety with functional tasks. Start: 02/04/24 Expected End: 03/03/24 Toileting Patient will complete toileting tasks at standard toilet with independence. Start: 02/04/24 Expected End: 03/03/24 Transfers Patient will complete functional transfer with least restrictive device with independence in order to prepare for ambulation. Start: 02/04/24 Expected End: 03/03/24 Therapy Time Individual Co-treatment Time In 1021 Time Out 1039 Minutes 18 Brittney Oliveros S/OT Patient's Occupational Therapy Plan of Care supervision is transferred to a [facility] Services Occupational Therapist. Goals and/or treatment plan was established in collaboration with patient/family/other representatives. * Lev Madrigaldariel - 02/04/2024 10:21 AM EDT Images from the original note were not included. PHYSICAL THERAPY [facility] Treatment Note Name/MRN: Darin Breaux ([id number]) Date of : 1945 Age: 79 y.o. Room/Bed: T1-107/T1-107 A Discharge Recommendation: 24 hour supervision or assist, Home with Home health PT Equipment Needed: No (Patient reports he has a wheeled walker at home.) Prior Level of Function ADL Assistance: Independent Ambulation Assistance: Independent Transfer Assistance: Independent Assessment Pt progressing with 4/6 exercises. Pt able to recall 1/4 sternal precautions. Pt required CGA with transfers and CGA with gait with Nethor. SpO2 levels dropped to low 80's when performing P&C exercises, but RN was in room and increased oxygen to 5L. Once O2 levels were increased, SpO2 levels stayed within the 90's. Still recommend home with 24 hour supervision/assist with home PT after pt disc harge. Subjective Pt in bedside chair and agreeable to therapy. RN in room/with pt during entire session. Pain: 0-10 pain scale: 2/10 chest incision, 3-4 L calf Medical Precautions: No active isolations Proper PPE donned/doffed in accordance with facility standards. Fall Risk: Hutchison Fall Risk Score: 35 (Medium Risk) Precautions/Restrictions: Sternal Precautions: No Pushing, No Pulling, No Lifting Greater Than 10 lbs Lines/Drains/Airways: PIV, O2, Chest tube, Ny catheter, pacer wires, CVC triple lumen, introducer Overall Cognitive Status: WFL Overall Orientation Status: Oriented to Person, did not ask other orientation questions Family/Caregiver Present: none Objective Transfers/Mobility Sit to stand: Contact Guard Stand to sit: Contact Guard Performed 1x hugging pillow. Device(s) used: none Ambulation Ambulation 1 Assistive device(s) used: Joshua Assist level: Contact Guard Distance (ft): x120 ft Quality of gait: No LOB, reciprocal stepping, B foot clearance, equal step length, slow demetrio, minimal hip and knee flexion venkatesh during swing phase , RN with WC follow, SpO2 levels stayed in high 90's during entire time walking Exercises Exercises Upper Extremity: P&C exercises 1-9 except for #4 and 5, 1x10 Provided printed handout of P&C exercises. Instructed pt to perform exercises 2x/day. Performed a couple of exercises when SpO2 dropped to low 80's. RN increased oxygen levels to 5L. SpO2 levels remained in 90's for rest of exercises. Plan Continue acute PT per plan of care. Safety/Education Safety Safety Devices in place: call light within reach, left in chair, nurse notified, and RN in room Restraints: N/A Education Education Given To: patient Education Provided: PT Role, PT Goals, Gait Training, Precautions, and Transfer Training Education Method: Verbal, Demonstration, and Printed Information Barriers to Learning: None Education Outcome: Verbalized Understanding Outcome Measures AM-PAC AM-PAC Inpatient Mobility Raw Score (No Stairs) : 15 JH-HLM -HLM Score: Walked 25 ft or more (i.e. walked outside of room) Goals Patient Stated Goal: Get stronger. Encounter Problems Encounter Problems (Active) Cardiac Patient will perform bed mobility with modified independence in order to improve independence and prepare for out of bed mobility. (Not Addressed) Start: 02/03/24 Expected End: 03/02/24 Patient will complete sit to stand transfer with independence to least restrictive device in order to improve safety and prepare for out of bed mobility. (Progressing) Start: 02/03/24 Expected End: 03/02/24 Patient will ambulate 150+ feet or ambulate 5 minutes with modified independence with RPE of 14 or lower. (Progressing) Start: 02/03/24 Expected End: 03/02/24 Patient will ascend and descend 4 # stairs with supervision rail for balance only. (Not Addressed) Start: 02/03/24 Expected End: 03/02/24 Patient will be independent with P&C exercises. (Progressing) Start: 02/03/24 Expected End: 03/02/24 Patient will be independent with managing secretions and home walking program. (Progressing) Start: 02/03/24 Expected End: 03/02/24 Therapy Time Individual Co-treatment Time In 0859 Time Out 0925 Minutes 26 Timed Code Treatment Minutes: 26 Minutes (TP, gait) Lev Coon, SPT * Ernestine Dias, JOB ANALYSIS MANAGER - STRUCTURAL METAL FABRICATOR APPRENTICE - 02/04/2024 8:55 AM EDT Department of Internal Medicine Division of Endocrinology, Diabetes, & Metabolism Endocrinology Note Patient Name: Darin Breaux : 1945 AGE: 79 y.o. Room/Bed: [facility]/[address] Admission Date: 02/02/2024 Visit Date: 02/04/2024 Reason for Endocrine Consult: post op heart Provider/Team Requesting Consult: cts PCP: Estephania Alvarado Outpt Boxing Machine Operator: No ASSESSMENT: Stress hyperglycemia Cabgx3 Cad / htn/ hld Copd Current smoker PLAN: Stop humalog ssi and poct checks Patient has been stable- we will sign off at this time- reach out to our team with any further questions Poct as needed Hypoglycemia management per protocol Carb controlled diet ANTICIPATED ENDOCRINE HOME GOING RECOMMENDATIONS: Optimized for Discharge from Endocrine standpoint: yes Home Going Endocrine Rx Recommendations-- none Outpt Follow Up-- PCP SUBJECTIVE/HPI: CHIEF COMPLAINT: No chief complaint on file. S/p CABGx3 Does not appear to have any hx of diabetes or thyroid disease Bgl below Stable In chair resting Vss-02 nc- Ct in place Awake alert Ate small bfast this am Denies any hx of DM or thyroid disease No family in room Spoke to nursing team We will sign off Type of DM: NA Onset of DM: NA Home DM Medication Regimen: NA DM control (last A1c/glucose data): Lab Results Component Value Date HGBA1C 5.1 01/26/2024 Glucose Date/Time Value Ref Range Status 02/03/2024 08:29 PM 108 (H) 70 - 100 mg/dL Final 02/03/2024 03:49 PM 133 (H) 70 - 100 mg/dL Final 02/03/2024 11:54 AM 138 (H) 70 - 100 mg/dL Final 02/03/2024 08:52 AM 130 (H) 70 - 100 mg/dL Final 02/03/2024 05:58 AM 102 (H) 70 - 100 mg/dL Final 02/03/2024 04:03 AM 117 (H) 70 - 100 mg/dL Final Review of Systems All other systems reviewed and are negative. ROS negative except for those mentioned in HPI. OBJECTIVE: Vitals: 02/04/24 0500 02/04/24 0600 02/04/24 0605 02/04/24 07 BP: 144/92 (!) 141/106 152/82 131/68 BP Location: Patient Position: Pulse: 71 116 73 88 Resp: 16 Temp: TempSrc: SpO2: 94% 99% 99% 100% Weight: 156 lb 15.5 oz (71.2 kg) Height: Physical Exam Vitals and nursing note reviewed. Constitutional: General: He is awake. He is not in acute distress. Appearance: He is ill-appearing. He is not toxic-appearing. Interventions: Nasal cannula in place. HENT: Head: Normocephalic and atraumatic. Eyes: Conjunctiva/sclera: Conjunctivae normal. Cardiovascular: Rate and Rhythm: Normal rate and regular rhythm. Comments: pacer Pulmonary: Effort: Pulmonary effort is normal. No respiratory distress. Abdominal: Tenderness: There is no guarding. Skin: General: Skin is warm and dry. Findings: Bruising present. Comments: Intact mid incision Neurological: Mental Status: He is alert and oriented to person, place, and time. Psychiatric: Mood and Affect: Mood normal. Behavior: Behavior normal. 24 hour intake/output: Intake/Output Summary (Last 24 hours) at 02/04/2024 0876 Last data filed at 02/04/2024 0546 Gross per 24 hour Intake 2923 ml Output 1500 ml Net 1423 ml Diet: Adult diet Regular; No Added Salt (3-4 gm); 5 carb choices (75 gm/meal) Medications (as per EMR): HomeMeds: Current Outpatient Medications Medication Instructions albuterol 108 (90 Base) MCG/ACT inhaler 2 puffs, Inhalation, Every 6 hours PRN amLODIPine (NORVASC) 5 mg, Oral, Daily aspirin 81 mg, Oral, Daily atorvastatin (LIPITOR) 10 mg, Oral, Daily benzonatate (TESSALON) 200 mg, Oral, 3 times daily PRN cholecalciferol (VITAMIN D-3) 2,000 Units, Oral, Daily dilTIAZem CD (CARDIZEM CD) 120 mg, Oral, Daily Eliquis 5 mg, Oral, 2 times daily Ferrous Sulfate (IRON PO) 1 tablet, Oral, Daily fluticasone (Flonase) 50 MCG/ACT nasal spray 2 sprays, Each Nostril, Daily FOLIC ACID PO 1 tablet, Oral, Daily ipratropium-albuterol (Duo-Neb) 0.5-2.5 mg/3 mL nebulizer solution 3 mL, Nebulization, Every 6 hours PRN isosorbide mononitrate ER (IMDUR) 30 mg, Oral, Daily, Do not crush or chew. lisinopril 10 MG tablet Oral, Daily metoprolol tartrate (LOPRESSOR) 100 mg, Oral, 2 times daily mupirocin (Bactroban) 2 % ointment Apply liberal amount per nostril the night before surgery and then again the morning of surgery nitroglycerin (NITROSTAT) 0.4 mg, SubLINGual, Every 5 min PRN pantoprazole (PROTONIX) 20 mg, Oral, Daily before breakfast Spiriva Respimat 2.5 MCG/ACT inhaler 2 puffs, Daily Symbicort 160-4.5 MCG/ACT inhaler 2 puffs, Inhalation, 2 times daily Scheduled Meds:acetaminophen, 1,000 mg, Oral, q8h albuterol, 2.5 mg, Nebulization, TID amLODIPine, 5 mg, Oral, Daily aspirin, 81 mg, Oral, Daily atorvastatin, 80 mg, Oral, Daily chlorhexidine, 15 mL, Mouth/Throat, BID furosemide, 40 mg, IntraVENous, BID heparin, 5,000 Units, SubCUTAneous, BID insulin lispro, 0-6 Units, SubCUTAneous, TID WC ketorolac, 15 mg, IntraVENous, q6h Lidocaine, 1 patch, Topical, Daily metoprolol tartrate, 25 mg, Oral, BID mometasone-formoterol, 2 puff, Inhalation, BID mupirocin, , Nasal, BID pantoprazole, 40 mg, Oral, qAM AC polyethylene glycol (PEG) 3350, 17 g, Oral, Daily senna-docusate sodium, 2 tablet, Oral, Nightly sodium chloride 0.9%, 10 mL, IntraVENous, 2 times per day sodium chloride 0.9%, 5-40 mL, IntraCATHeter, q8h tiotropium, 2 puff, Inhalation, Daily Continuous Infusions: PRN Meds:PRN medications: albuterol, calcium gluconate, dextrose, dextrose, glucagon (rDNA), glucose, magnesium hydroxide, magnesium sulfate OR magnesium sulfate, naloxone, oxyCODONE OR oxyCODONE, potassium chloride CR, prochlorperazine Diagnostic Workup: I reviewed pertinent Laboratory results, Radiographic results, and Other Clinical Notes at the timeof today's encounter. Labs: No components found for: "LABA1C" No components found for: "EAG" Lab Results Component Value Date NA 134 (L) 02/04/2024 K 4.1 02/04/2024 CL 104 02/04/2024 CO2 21 (L) 02/04/2024 BUN 20 02/04/2024 CREATININE 1.00 02/04/2024 GLUCOSE 115 (H) 02/04/2024 CALCIUM 9.5 02/04/2024 No results found for: "CHLPL", "CHOL" No results found for: "TRIG" No results found for: "HDL" No results found for: "LDLCALC" No results found for: "VLDL" No results found for: "CHOLHDLRATIO" No results found for: "YQMZ26DOC" No results found for: "TSH", "J9OEZVY", "D4LLYJO", "THYROIDAB" Radiology reportsas per the Radiologist Radiology: POCT glucose meter Result Date: 02/02/2024 Performed by: [facility], [address] [place] [id number] CLIA ID: [id number] POCT glucose meter Result Date: 02/02/2024 Performed by: [facility] [facility], [address] [place] [id number] CLIA ID: [id number] Transesophageal echocardiogram (YULIANA) with contrast and 3D PRN Result Date: 02/02/2024 Left Ventricle: Left ventricle size is normal. Normal wall thickness. Normal left ventricular systolic function. The EF by visual approximation is 65%. Normal wall motion. Right Ventricle: Right ventricle size is normal. Normal systolic function. Left Atrium: No left atrial appendage thrombus noted. No significant valvular abnormalities. ECG 12 lead A-V dual-paced rhythm with some inhibition POCT glucose meter Result Date: 02/02/2024 Performed by: [facility], [address] [place] [address] CLIA ID: [id number] History/Other: Past Medical History: Past Medical History: Diagnosis Date AAA (abdominal aortic aneurysm) (HCC) Arthritis Atrial fibrillation (HCC) Carotid artery stenosis COPD (chronic obstructive pulmonary disease) (HCC) Coronary artery disease GERD (gastroesophageal reflux disease) Hyperlipidemia Hypertension Myocardial infarction (HCC) Presence of permanent cardiac pacemaker Past Surgical History: Past Surgical History: Procedure Laterality Date ABDOMINAL AORTIC ANEURYSM REPAIR BACK SURGERY lumbar discectomy CARPAL TUNNEL RELEASE Right CATARACT EXTRACTION Bilateral COLONOSCOPY CORONARY ANGIOPLASTY WITH STENT PLACEMENT 1996 CORONARY STENT PLACEMENT HERNIA REPAIR Bilateral inguinal TRANSURETHRAL RESECTION OF PROSTATE Allergy(ies): Allergies Allergen Reactions Penicillins Hives Plavix [Clopidogrel] Hives Tamsulosin Other Blacked out Family History: No family history on file. 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 Best attempts were made to edit/proofread the information prior to note completion. Despite the review of information, some errors may remain. If there are questions related to the information contained within the note please contact the signing physician directly. I spent 15 minutes with the pt which involved coordination of care, medical evaluation, review of records, and/or counseling of the pt regarding his/her condition/disease state/prognosis on the date of this note. Associated attestation - Ousmane Blanchard MD - 02/04/2024 4:06 PM EDT I have personally performed a face to face diagnostic evaluation on this patient. In addition, I have reviewed the resident's/SENIOR QUALITY ANALYST/MANUFACTURING SHIFT SUPERVISOR's care plan and agree with those findings I have performed a substantive portion of the the medical decision making. My findings are as follows: Very minimal insulin requirements and patient denies any specific complaints Vitals: BP 113/66 Pulse 73 Temp 36.4 C (97.5 F) (Temporal) Resp 20 Ht 6' 2" (1.88 m) Wt 156 lb 15.5 oz (71.2 kg) SpO2 97% BMI 20.15 kg/m Constitutional: Well developed Eyes: Conjunctiva clear, Pupils equal Respiratory: No respiratory distress Cardiovascular System: No lower extremity edema Psychiatric: Conscious, alert, oriented to time, place and person A/P Stress hyperglycemia status post CABG Blood glucose readings has been stable also discontinue Humalog correction scale May obtain blood glucose readings as needed Endocrinology service will sign off Old records including available PCP, ED notes and or other specialists notes are reviewed. LABs and/or imaging are reviewed as detailed in the resident's/SENIOR QUALITY ANALYST/MANUFACTURING SHIFT SUPERVISOR's note * Aubrey Wayne APRN - STRUCTURAL METAL FABRICATOR APPRENTICE - 02/04/2024 6:56 AM EDT Images from the original note were not included. Cardiothoracic Surgery/[facility] Progress Note PATIENT NAME: Darin Breaux DATE: 02/04/24 Darin Breaux is a 79 y.o. male referred by Dr. Valentin for CABG. Patient has history of CAD, SD, PCI, cardiac dysrhythmia, atrial fibrillation, s/p pacemaker placement, carotid artery stenosis, hyperlipidemia, HTN. Pt saw Cardiology in November 2023 and reported left sided chest pain that radiates to left arm and SOB with exertion. Stress test was ordered and completed on 01/05/24 which demonstrated small reversible perfusion defect of the apex suggestive of mild ischemia with an LVEF of 43%. Pt underwent heart catheterization on 01/12/24 which demonstrated multivessel CAD. Patient saw Dr. Vargas in the OP setting, agreed to surgical intervention, surgery scheduled for 02/02/24. Surgery: 02/02/24: Dr. Vargas- CABGx3 (MCDUFFIE-LAD, SVG-OM1-PDA sequential), LEVH, modified MAZE with left atrial appendage clip Interval History: 02/04/24, POD# 2 pt doing well overnight sitting up in chair - pain well controlled - on home oxygen amt at 3LNC - CT output too high to remove, CXR clearing, Labs stable. Pt did have an episode of wheezing overngiht that required additional albuterol treatment, Review of Systems Constitutional: Negative for diaphoresis, fatigue and fever. Respiratory: Negative for cough, shortness of breath and wheezing. Cardiovascular: Negative for chest pain, palpitations and leg swelling. Gastrointestinal: Negative for abdominal distention, constipation and diarrhea. Skin: Negative for color change, pallor and rash. Objective: CT output cc/24hrs: 580 UO cc/24hrs:1150 lactated ringers, 250 mL sodium chloride, 20 mL/hr, Last Rate: 20 mL/hr (02/02/24 1200) Vitals: BP: 152/82, MAP (mmHg): 99, BP Method: Automatic Heart Rate: 73 Resp: 16 Temp: 36.6 C (97.8 F), Temp Source: Temporal BMI (Calculated): 20.14 Pacer Wires: capped CXR: BMP: Recent Labs 02/02/24 1131 02/02/24 1419 02/02/24193102/03/24 0357 02/03/24 1541 02/04/24 0201 NA 138 < > 138 138 134* 134* K 4.2 < > 4.5 4.6 4.3 4.1 CL 109* < > 110* 109* 104 104 CO2 24 < > 21* 20* 20* 21* BUN 19 < > 20 20 20 20 CREATININE 1.32* < > 1.28* 1.11 1.14 1.00 CALCIUM 8.4 < > 8.7 8.7 9.0 9.5 MG 2.9* < > 2.2 2.1 -- 1.8 PHOS 4.0 -- 3.5 -- -- -- < > = values in this interval not displayed. CBC: Recent Labs 02/02/24193102/03/24 0357 02/04/24 0201 WBC 15.7* 9.2 11.7* HGB 8.6 7.8* 10.2 9.5* 9.2* HCT 24.5* 29.4* 28.5* PLT 145 114* 107* MCV 92.5 91.6 90.5 RDW 15.9* 16.4* 16.6* INR: Recent Labs 02/02/24 2301 02/03/24 0357 02/04/24 0201 INR 1.1 1.1 1.1 Physical Exam Cardiovascular: Rate and Rhythm: Normal rate and regular rhythm. Heart sounds: Normal heart sounds. No murmur heard. No friction rub. Pulmonary: Effort: Pulmonary effort is normal. Skin: General: Skin is warm and dry. Capillary Refill: Capillary refill takes less than 2 seconds. Findings: Bruising and ecchymosis present. Neurological: Mental Status: He is alert. Psychiatric: Behavior: Behavior is cooperative. Assessment: CAD s/p CABG SSS, Afib s/p dual chamber [facility], on Eliquis s/p MAZE HTN HPL COPD/Emphysema (3L O2) Current tobacco use GERD AAA s/p Endovascular repair Hx PCI Post operative Pulm Management: Acute Post-operative Respiratory Insufficiency Post-operative Atrial Fibrillation: []Yes [x] No Plan: Interventions - Pt is on max COPD meds - next step would be to add steroids - Add Toradol for pain to help with breathing and pain - consider low dose benzo as patient becomes very anxious with his wheezing attacks - DC Chest tubes tomorrow - Start home meds for CAD - Monitor for A-fib pt is high risk with runs of A-fib in the past - Restart home norvasc @ 5mg, and BB @ 25mg - Restart home Eliquis after CT removed - DC eliquis Follow up - On BP controll GDMT For CAD - EF WNL - asa, statin, Pain Control *Nausea with Dilaudid will DC - Lido patches, oxy, tyleonol, toradol added Consults CCM Endocrine - signed off PT/OT: 24 hour supervision or assist, Home with Home health PT Pulmonary hygiene: IS and Acapella GI prophy: PO protonix DVT prophy:TEDs, SCDs, and Heparin SubQ TCC/Discharge Planning Central Line: [x]Yes [] No Arterial Line: []Yes [x] No Ny: [x]Yes [] No Restraints: []Yes [x] No Patient discussed and plan of day developed from multidisciplinary rounds between Cardiothoracic Surgery (Cardiothoracic Surgeon, TACO) and Critical Care Attending Critical Care time spent 38 minutes. The time involved in the performance of this care was exclusive of separately billable procedures, teaching time and treating other patients. The time was spent personally by the attending physician for the following activities: examination of the patient, ordering and/or performing treatment, reviewing the laboratory and radiographic studies, and if applicable, ventilator management and blood gas interpretation. Cardiac Core Medications: ASA, Statin, and BB EF: 01/22/24 65% Blood Conservation: None noted in post-operative period Surgical Orderly: Junior group Associated attestation - Austen Suarez MD - 02/04/2024 2:24 PM EDT I have personally performed a face to face diagnostic evaluation on this patient today on 02/04/24.Labs, imaging studies, and electronic medical record notes on [facility] have been reviewed by me. This note documented and discussed by the []intelligence support officer []Fellow [x] TACO reflects my history, exam and medical decision making. I have reviewed and agree with the care plan. Changes were made in the orders as necessary. ROS documentation was reviewed and negative unless otherwise stated in the HPI. My history, exam, assessment and plan are as follows: Some elements copied from my notes, which have been updated where appropriate. All reflect current medical decision making from 02/04/24. Physical Exam listed was completed in entirely on 02/04/24 and is unchanged except where noted. Time spent for coordination of care: a subsequent visit: 25 minutes (Level I) Pt no longer critical care Awake, in chair, resp unlabored, scattered wheezes Heart RRR Severe CAD, unstable angina, Afib, pacer, HTN, HLD 02/01 s/p CABG x 3, modified MAZE, Atri-Clip Post op ventilator management, resp acidosis, acute resp insufficiency COPD, chronic resp failure on home O2 Expected anemia post op Cont dulera and spiriva Change albuterol 4x daily On ASA, statin, b-morteza Cont lasix as tolerated * Anna Márquez, PT - 02/03/2024 1:59 PM EDT Images from the original note were not included. PHYSICAL THERAPY [facility] Initial Evaluation Name/MRN: Darin Breaux ([id number]) Evaluation Date: 02/03/2024 Date of : 1945 Admission Date: 02/02/2024 5:10 AM Age: 79 y.o. Room/Bed: T1-107/T1-107 A Discharge Recommendation: 24 hour supervision or assist, Home with Home health PT Equipment Needed: No (Patient reports he has a wheeled walker at home.) Assessment IMPRESSION: Patient admitted with CAD and is post CABG x 3 02/02/24. He is limited functionally due to weakness, decreased endurance, and impaired balance and would benefit from PT intervention to improve function. Patient was independent with mobility prior to admit. During PT evaluation, patient co mpleted transfers and ambulation with a Nezzie walker with min assist. Ambulation distance was limited due to decreased oxygen saturation and extended recovery with O2 increased by RN. Recommend homewith assist and home PT at discharge. Admitting Diagnosis: CAD, CABG x 3 02/02/24 Prognosis: good Performance Deficits /Impairments: Increased Pain, Decreased Functional Mobility, Decreased Strength, Decreased Endurance, and Decreased Balance Decision Making: Low Complexity Subjective Patient in chair. Per RNtanya for PT. Patient is agreeable. Pain: 0-10 pain scale: 3/10 Location: sternum Past Medical History: Past Medical History: Diagnosis Date AAA (abdominal aortic aneurysm) ([facility]) Arthritis Atrial fibrillation (HCC) Carotid artery stenosis COPD (chronic obstructive pulmonary disease) (HCC) Coronary artery disease GERD (gastroesophageal reflux disease) Hyperlipidemia Hypertension Myocardial infarction (HCC) Presence of permanent cardiac pacemaker Past Surgical History: Past Surgical History: Procedure Laterality Date ABDOMINAL AORTIC ANEURYSM REPAIR BACK SURGERY lumbar discectomy CARPAL TUNNEL RELEASE Right CATARACT EXTRACTION Bilateral COLONOSCOPY CORONARY ANGIOPLASTY WITH STENT PLACEMENT 1996 CORONARY STENT PLACEMENT HERNIA REPAIR Bilateral inguinal TRANSURETHRAL RESECTION OF PROSTATE Admission Diagnosis: Patient Active Problem List Diagnosis Date Noted Severe malnutrition (CMS/HCC) ([facility]) 02/03/2024 CAD in [place] artery 02/02/2024 Medical Precautions: No active isolations Proper PPE donned/doffed in accordance with facility standards. Fall Risk: [place] Fall Risk Score: 35 (Medium Risk) Precautions/Restrictions: Sternal Precautions: No Pushing, No Pulling, No Lifting Greater Than 10 lbs Lines/Drains/Airways: PIV, O2, Chest tube, Ny catheter Family/Caregiver Present: none Overall Cognitive Status: WFL Overall Orientation Status: Oriented x4 Vision: not assessed this session Hearing: normal Social/Functional History Patient admitted from home. Lives With: daughter in law Type of Home: single family home Home Layout: Single Level Home Home Access: Stairs to Enter with Rails (# of stairs: 4) Home Equipment: front wheeled walker and electric scooter Prior Level of Function ADL Assistance: Independent Ambulation Assistance: Independent Transfer Assistance: Independent Objective Lower Extremity Assessment AROM: WFL PROM: Not assessed this session Strength: Exceptions: Grossly 4-/5 Balance: Not assessed this session Sensation: WFL Bed Mobility: NT Transfers Sit to stand: Min Assist Stand to sit: Min Assist Cueing for sternal precautions. Ambulation Ambulation 1 Assistive device(s) used: [employer] Assist level: Min Assist Distance (ft): 25 Quality of gait: slow demetrio, instability through all phases Patient's O2 saturation decreased to low 80s with ambulation. RN with PT/patient during ambulation and increased O2 to 4L/NC. Patient remained in mid to low 80s with increased recovery time. Wheeled back to room in recliner chair. O2 saturation slowly improving and returned to mid to upper 90s. Exercises Other exercises Other exercises?: Yes Other exercises 1: Patient instructed on and completed P&C ex #1-4 x 10 reps each. Outcome Measures AM-PAC How much HELP from another person do you currently need Turning from your back to your side while in a flat bed without using bedrails?: A Little Moving from lying on your back to sitting on the side of a flat bed without using bedrails?: A Little Moving to and from a bed to a chair (including a wheelchair)?: A Little Standing up from a chair using your arms (wheelchair or bedside chair)?: A Little Walking in a hospital room?: A Little Stair climbing assessed?: No AM-PAC Inpatient Mobility Raw Score (No Stairs) : 15 JH-HLM -HLM Score: Walked 25 ft or more (i.e. walked outside of room) Plan Pt would benefit from skilled acute PT services to address Strengthening, ROM, Gait Training, Balance Training, Functional Mobility Training, Safety Education and Training, Stair Training, Equipment Evaluation/Education, and Patient/Caregiver Training. Frequency: 5x/week for 4 weeks Barriers: None Safety/Education Safety Safety Devices in place: call light within reach, left in chair, nurse notified, and no alarms engaged upon entry Restraints: No Education Education Given To: patient Education Provided: Plan of Care and Home Exercise Program Education Method: Verbal Barriers to Learning: None Education Outcome: Verbalized Understanding Goals Patient Stated Goal: Get stronger. Encounter Problems Encounter Problems (Active) Cardiac Patient will perform bed mobility with modified independence in order to improve independence and prepare for out of bed mobility. Start: 02/03/24 Expected End: 03/02/24 Patient will complete sit to stand transfer with independence to least restrictive device in order to improve safety and prepare for out of bed mobility. Start: 02/03/24 Expected End: 03/02/24 Patient will ambulate 150+ feet or ambulate 5 minutes with modified independence with RPE of 14 or lower. Start: 02/03/24 Expected End: 03/02/24 Patient will ascend and descend 4 # stairs with supervision rail for balance only. Start: 02/03/24 Expected End: 03/02/24 Patient will be independent with P&C exercises. Start: 02/03/24 Expected End: 03/02/24 Patient will be independent with managing secretions and home walking program. Start: 02/03/24 Expected End: 03/02/24 Therapy Time Individual Co-treatment Time In 1319 Time Out 1344 Minutes 25 Timed Code Treatment Minutes: 8 Minutes (TP) PPE worn in accordance with [employer] guidelines. Anna Márquez PT Patient's Physical Therapy Plan of Care supervision is transferred to a [facility] Therapy Services Physical Therapist. Goals and/or treatment plan was established in collaboration with patient/family/other representatives. * Ernestine Dias, ROBIN - STRUCTURAL METAL FABRICATOR APPRENTICE - 02/03/2024 9:54 AM EDT Department of Internal Medicine Division of Endocrinology, Diabetes, & Metabolism Endocrinology Note Patient Name: Darin Breaux : 1945 AGE: 79 y.o. Room/Bed: T1-107/T1-107 A Admission Date: 02/02/2024 Visit Date: 02/03/2024 Reason for Endocrine Consult: post op heart Provider/Team Requesting Consult: cts PCP: Estephania Alvarado Outpt Boxing Machine Operator: No ASSESSMENT: Stress hyperglycemia Cabgx3 Cad / htn/ hld Copd Current smoker PLAN: Stop insulin gtt Start humalog low SSI only for transition ICU goal <180 GMF goal <150 POCT BG ACHS Hypoglycemia management per protocol Carb controlled diet ANTICIPATED ENDOCRINE HOME GOING RECOMMENDATIONS: Optimized for Discharge from Endocrine standpoint: yes Home Going Endocrine Rx Recommendations-- none Outpt Follow Up-- PCP SUBJECTIVE/HPI: CHIEF COMPLAINT: No chief complaint on file. S/p CABGx3 Does not appear to have any hx of diabetes or thyroid disease Bgl below Stable In chair resting Vss-02 nc- extubated Ct in place Awake alert Denies any hx of DM or thyroid disease Had cereal for bfast A bit of [place] this AM Insulin gtt off on exam No pressors No family in room Spoke to nursing team Type of DM: NA Onset of DM: NA Home DM Medication Regimen: NA DM control (last A1c/glucose data): Lab Results Component Value Date HGBA1C 5.1 01/26/2024 Glucose Date/Time Value Ref Range Status 02/03/2024 08:52 AM 130 (H) 70 - 100 mg/dL Final 02/03/2024 05:58 AM 102 (H) 70 - 100 mg/dL Final 02/03/2024 04:03 AM 117 (H) 70 - 100 mg/dL Final 02/03/2024 02:04 AM 105 (H) 70 - 100 mg/dL Final 02/03/2024 01:11 AM 109 (H) 70 - 100 mg/dL Final 02/03/2024 12:02 AM 109 (H) 70 - 100 mg/dL Final Review of Systems All other systems reviewed and are negative. ROS negative except for those mentioned in HPI. OBJECTIVE: Vitals: 02/03/24 0745 02/03/24 0754 02/03/24 0800 02/03/24 0850 BP: 138/56 Patient Position: Sitting Pulse: 72 63 63 Resp: 14 17 15 Temp: 36.5 C (97.7 F) TempSrc: Temporal SpO2: 100% 99% 100% Weight: Height: 6' 2" (1.88 m) Physical Exam Vitals and nursing note reviewed. Constitutional: General: He is awake. He is not in acute distress. Appearance: He is ill-appearing. He is not toxic-appearing. Interventions: Nasal cannula in place. HENT: Head: Normocephalic and atraumatic. Eyes: Conjunctiva/sclera: Conjunctivae normal. Cardiovascular: Rate and Rhythm: Normal rate and regular rhythm. Comments: pacer Pulmonary: Effort: Pulmonary effort is normal. No respiratory distress. Abdominal: Tenderness: There is no guarding. Skin: General: Skin is warm and dry. Findings: Bruising present. Comments: Intact mid incision Neurological: Mental Status: He is alert and oriented to person, place, and time. Psychiatric: Mood and Affect: Mood normal. Behavior: Behavior normal. 24 hour intake/output: Intake/Output Summary (Last 24 hours) at 02/03/2024 0955 Last data filed at 02/03/2024 0930 Gross per 24 hour Intake 6808.12 ml Output 2515 ml Net 4293.12 ml Diet: Adult diet Regular; No Added Salt (3-4 gm); 5 carb choices (75 gm/meal) Medications (as per EMR): HomeMeds: Current Outpatient Medications Medication Instructions albuterol 108 (90 Base) MCG/ACT inhaler 2 puffs, Inhalation, Every 6 hours PRN amLODIPine (NORVASC) 5 mg, Oral, Daily aspirin 81 mg, Oral, Daily atorvastatin (LIPITOR) 10 mg, Oral, Daily benzonatate (TESSALON) 200 mg, Oral, 3 times daily PRN cholecalciferol (VITAMIN D-3) 2,000 Units, Oral, Daily dilTIAZem CD (CARDIZEM CD) 120 mg, Oral, Daily Eliquis 5 mg, Oral, 2 times daily Ferrous Sulfate (IRON PO) 1 tablet, Oral, Daily fluticasone (Flonase) 50 MCG/ACT nasal spray 2 sprays, Each Nostril, Daily FOLIC ACID PO 1 tablet, Oral, Daily ipratropium-albuterol (Duo-Neb) 0.5-2.5 mg/3 mL nebulizer solution 3 mL, Nebulization, Every 6 hours PRN isosorbide mononitrate ER (IMDUR) 30 mg, Oral, Daily, Do not crush or chew. lisinopril 10 MG tablet Oral, Daily metoprolol tartrate (LOPRESSOR) 100 mg, Oral, 2 times daily mupirocin (Bactroban) 2 % ointment Apply liberal amount per nostril the night before surgery and then again the morning of surgery nitroglycerin (NITROSTAT) 0.4 mg, SubLINGual, Every 5 min PRN pantoprazole (PROTONIX) 20 mg, Oral, Daily before breakfast Spiriva Respimat 2.5 MCG/ACT inhaler 2 puffs, Daily Symbicort 160-4.5 MCG/ACT inhaler 2 puffs, Inhalation, 2 times daily Scheduled Meds:acetaminophen, 1,000 mg, Oral, q8h albuterol, 2.5 mg, Nebulization, TID aspirin, 81 mg, Oral, Daily atorvastatin, 80 mg, Oral, Daily chlorhexidine, 15 mL, Mouth/Throat, BID heparin, 5,000 Units, SubCUTAneous, BID Lidocaine, 1 patch, Topical, Daily mometasone-formoterol, 2 puff, Inhalation, BID mupirocin, , Nasal, BID pantoprazole, 40 mg, Oral, qAM AC polyethylene glycol (PEG) 3350, 17 g, Oral, Daily senna-docusate sodium, 2 tablet, Oral, Nightly sodium chloride 0.9%, 10 mL, IntraVENous, 2 times per day sodium chloride 0.9%, 5-40 mL, IntraCATHeter, q8h tiotropium, 2 puff, Inhalation, Daily vancomycin, 1,000 mg, IntraVENous, q12h Continuous Infusions:insulin regular, 1-50 Units/hr, Last Rate: Stopped (02/03/24 0111) lactated ringers, 250 mL sodium chloride, 20 mL/hr, Last Rate: 20 mL/hr (02/02/24 1200) PRN Meds:PRN medications: albumin human, calcium gluconate, dextrose, dextrose, glucagon (rDNA), glucose, HYDROmorphone OR HYDROmorphone, lactated ringers, magnesium hydroxide, magnesium sulfate OR magnesium sulfate, naloxone, oxyCODONE OR oxyCODONE, potassium chloride OR potassium chloride OR potassium chloride, potassium chloride CR, prochlorperazine, sodium chloride, sodiumchloride, sodium chloride, sodium chloride, sodium chloride 0.9%, sodium chloride 0.9% Diagnostic Workup: I reviewed pertinent Laboratory results, Radiographic results, and Other Clinical Notes at the timeof today's encounter. Labs: No components found for: "LABA1C" No components found for: "EAG" Lab Results Component Value Date NA 138 02/03/2024 K 4.6 02/03/2024 CL 109 (H) 02/03/2024 CO2 20 (L) 02/03/2024 BUN 20 02/03/2024 CREATININE 1.11 02/03/2024 GLUCOSE 114 (H) 02/03/2024 CALCIUM 8.7 02/03/2024 No results found for: "CHLPL", "CHOL" No results found for: "TRIG" No results found for: "HDL" No results found for: "LDLCALC" No results found for: "VLDL" No results found for: "CHOLHDLRATIO" No results found for: "FQPS75QQU" No results found for: "TSH", "X0SKLAO", "Y0MJUDD", "THYROIDAB" Radiology reportsas per the Radiologist Radiology: POCT glucose meter Result Date: 02/02/2024 Performed by: [facility] [facility], [address] [place], [place] [id number] CLIA ID: [id number] POCT glucose meter Result Date: 02/02/2024 Performed by: [facility] [facility], [address] [place] [id number] CLIA ID: [id number] Transesophageal echocardiogram (YULIANA) with contrast and 3D PRN Result Date: 02/02/2024 Left Ventricle: Left ventricle size is normal. Normal wall thickness. Normal left ventricular systolic function. The EF by visual approximation is 65%. Normal wall motion. Right Ventricle: Right ventricle size is normal. Normal systolic function. Left Atrium: No left atrial appendage thrombus noted. No significant valvular abnormalities. ECG 12 lead A-V dual-paced rhythm with some inhibition POCT glucose meter Result Date: 02/02/2024 [facility]formed by: [facility], [address] [place] [address] CLIA ID: [id number] History/Other: Past Medical History: Past Medical History: Diagnosis Date AAA (abdominal aortic aneurysm) (HCC) Arthritis Atrial fibrillation (HCC) Carotid artery stenosis COPD (chronic obstructive pulmonary disease) (HCC) Coronary artery disease GERD (gastroesophageal reflux disease) Hyperlipidemia Hypertension Myocardial infarction (HCC) Presence of permanent cardiac pacemaker Past Surgical History: Past Surgical History: Procedure Laterality Date ABDOMINAL AORTIC ANEURYSM REPAIR BACK SURGERY lumbar discectomy CARPAL TUNNEL RELEASE Right CATARACT EXTRACTION Bilateral COLONOSCOPY CORONARY ANGIOPLASTY WITH STENT PLACEMENT 1996 CORONARY STENT PLACEMENT HERNIA REPAIR Bilateral inguinal TRANSURETHRAL RESECTION OF PROSTATE Allergy(ies): Allergies Allergen Reactions Penicillins Hives Plavix [Clopidogrel] Hives Tamsulosin Other Blacked out Family History: No family history on file. 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 Best attempts were made to edit/proofread the information prior to note completion. Despite the review of information, some errors may remain. If there are questions related to the information contained within the note please contact the signing physician directly. I spent 25 minutes with the pt which involved coordination of care, medical evaluation, review of records, and/or counseling of the pt regarding his/her condition/disease state/prognosis on the date of this note. * ROBIN Evans CNP - 02/03/2024 6:19 AM EDT Images from the original note were not included. Cardiothoracic Surgery/CCM Progress Note PATIENT NAME: Darin Breaxu DATE: 02/03/24 HPI: Darin Breaux is a 79 y.o. male referred by Dr. Valentin for CABG. Patient has history of CAD, SD, PCI, cardiac dysrhythmia, atrial fibrillation, s/p pacemaker placement, carotid artery stenosis, hyperlipidemia, HTN. Pt saw Cardiology in November 2023 and reported left sided chest pain that radiates to left arm and SOB with exertion. Stress test was ordered and completed on 01/05/24 which demonstrated small reversible perfusion defect of the apex suggestive of mild ischemia with an LVEF of 43%. Pt underwent heart catheterization on 01/12/24 which demonstrated multivessel CAD. Patient saw Dr. Vargas in the OP setting, agreed to surgical intervention, surgery scheduled for 02/02/24. Surgery: 02/02/24: Dr. Vargas- CABGx3 (MCDUFFIE-LAD, SVG-OM1-PDA sequential), LEVH, modified MAZE with left atrial appendage clip Interval History: 02/03/24, POD# 1: Received 2 uPRBC overnight, then weaned off all pressors. Had one brief episode of Afib, reverted quickly back to V-paced rhythm. NIV overnight, now on 6L NC. Some nausea this am, improved with IV medications. Sitting up in chair, pain is controlled. Review of Systems Constitutional: Positive for activity change, appetite change and fatigue. Negative for diaphoresisand fever. Respiratory: Positive for cough and shortness of breath. Negative for wheezing. Cardiovascular: Negative for chest pain, palpitations and leg swelling. Gastrointestinal: Positive for nausea. Negative for abdominal distention, abdominal pain and vomiting. Skin: Negative for color change, pallor and rash. Objective: CT output cc/24hrs: 880 mL UO cc/24hrs: 1,080 mL Vitals: BP: 140/61, , BP Method: Arterial line Heart Rate: 62 Resp: 12 Temp: 36.6 C (97.9 F), Temp Source: Oral BMI (Calculated): 19.25 CXR: BMP: Recent Labs 02/02/24 1131 02/02/24 1419 02/02/24 1932 02/03/24 0357 NA 138 137 138 138 K 4.2 4.2 4.5 4.6 CL 109* 108* 110* 109* CO2 24 20* 21* 20* BUN 19 18 20 20 CREATININE 1.32* 1.29* 1.28* 1.11 CALCIUM 8.4 8.4 8.7 8.7 MG 2.9* 2.3 2.2 2.1 PHOS 4.0 -- 3.5 -- CBC: Recent Labs 02/02/24 1419 02/02/24 1421 02/02/24 1634 02/02/24 1932 02/03/24 0357 WBC 16.5* -- -- 15.7* 9.2 HGB 7.2* < > 8.1 7.1* 8.6 7.8* 10.2 9.5* HCT 22.3* -- 22.2* 24.5* 29.4* PLT 150 -- -- 145 114* MCV 94.5 -- -- 92.5 91.6 RDW 15.5* -- -- 15.9* 16.4* < > = values in this interval not displayed. INR: Recent Labs 02/02/24 1419 02/02/24 2301 02/03/24 0357 INR 1.2* 1.1 1.1 Physical Exam Cardiovascular: Rate and Rhythm: Normal rate. Heart sounds: Normal heart sounds. No murmur heard. No friction rub. Comments: V-paced Pulmonary: Effort: Pulmonary effort is normal. Breath sounds: Decreased breath sounds and rhonchi present. No wheezing. Abdominal: General: Bowel sounds are normal. There is no distension. Palpations: Abdomen is soft. Tenderness: There is no abdominal tenderness. Genitourinary: Comments: Ny catheter to straight drain Musculoskeletal: Right lower leg: No edema. Left lower leg: No edema. Skin: General: Skin is warm and dry. Capillary Refill: Capillary refill takes less than 2 seconds. Findings: Bruising and ecchymosis present. Comments: Surgical Incisions: well approximate; clean dry with no drainage noted. Surrounding skin no redness, warmth, or signs of infection noted. Neurological: Mental Status: He is alert. Psychiatric: Behavior: Behavior is cooperative. Assessment: CAD s/p CABG SSS, Afib s/p dual chamber [facility], on Eliquis s/p MAZE HTN HPL COPD/Emphysema (3L O2) Current tobacco use GERD AAA s/p Endovascular repair Hx PCI Post operative Pulm Management: Normal Post-operative Course Post-operative Atrial Fibrillation: []Yes [x] No Acute blood loss anemia/consumptive coagulopathy Plan: Patient status: ICU Medications: ASA/Statin BB- held this am, will start if BP can tolerate this afternoone Home Cardizem & Eliquis held- will need resumed prior to discharge Scheduled Albuterol, Spiriva, and Dulera (for home Symbicort) GI prophy: PO protonix DVT prophy:TEDs, SCDs, and Heparin SubQ Interventions: CT-> water seal Remove Rulo Advance diet OOB, progress mobility Pulmonary hygiene: IS and Acapella Consults: Endocrine following for insulin needs PT/OT: Needs assessment TCC/Discharge Planning TBD Central Line: [x]Yes [] No Arterial Line: [x]Yes [] No Ny: [x]Yes [] No Restraints: []Yes [x] No Patient discussed and plan of day developed from multidisciplinary rounds between Cardiothoracic Surgery (Cardiothoracic Surgeon, TACO) and Critical Care Attending Critical Care time spent 30 minutes. The time involved in the performance of this care was exclusive of separately billable procedures, teaching time and treating other patients. The time was spent personally by the attending physician for the following activities: examination of the patient, ordering and/or performing treatment, reviewing the laboratory and radiographic studies, and if applicable, ventilator management and blood gas interpretation. Cardiac Core Medications: ASA, Statin, and No BB due to hypotension EF: 01/22/24: 65% Blood Conservation: transfused intraop & postop Surgical Orderly: Dr. Valentin ([place]) Associated attestation - Austen Suarez MD - 02/03/2024 12:13 PM EDT I have personally performed a face to face diagnostic evaluation on this patient today on 02/03/24.Labs, imaging studies, and electronic medical record notes on [facility] have been reviewed by me. This note documented and discussed by the []intelligence support officer []Fellow [x] TACO reflects my history, exam and medical decision making. I have reviewed and agree with the care plan. Changes were made in the orders as necessary. ROS documentation was reviewed and negative unless otherwise stated in the HPI. My history, exam, assessment and plan are as follows: Some elements copied from my notes, which have been updated where appropriate. All reflect current medical decision making from 02/03/24. Physical Exam listed was completed in entirely on 02/03/24 and is unchanged except where noted. Time spent for coordination of care: a subsequent visit: 50 minutes (Level III) Pt no longer critical care Up in chair, resp unlabored +rhonchi bilaterally, feels SOB Severe CAD, unstable angina, Afib, pacer, HTN, HLD 02/01 s/p CABG x 3, modified MAZE, Atri-Clip Post op ventilator management, resp acidosis, acute resp insufficiency COPD, chronic resp failure on home O2 Expected anemia post op Post op hypotension, weaned off levophed Weaning O2 as tolerated Home dulera and spiriva restarted Change nebs to albuterol 3x daily Transfusion prn * Ney Pinon RRT - 02/02/2024 3:41 PM EDT Pt extubated to NIV medium mask. Pt verbalized name post extubation. Settings per MD orders. Will continue care. * Ney Pinon RRT - 02/02/2024 3:25 PM EDT 02/02/24 1524 Patient Parameters Heart Rate 60 Resp 19 SpO2 100 % Settings Vent Mode SPONT Spontaneous Type TC FiO2 (%) 40 % PEEP/CPAP (cm H2O) 8 cm H20 Sensitivity 3 Expiratory Sensitivity (%) 25 % % Support 100 % Readings PIP Observed (cm H2O) 11 cm H2O MAP (cm H2O) 9.2 Resp Rate Observed 22 Vt (observed, mL) 399 mL Minute Ventilation (L/min) 10 L/min I:E Ratio 1:1.8 Plateau Pressure (cm H2O) 0 cm H2O Dynamic Compliance (L/cm H2O) 46 L/cm H2O Static Compliance (L/cm H2O) 0 Airway Resistance 13 Total PEEP (cm H2O) 0 cm H2O Alarms High RR Alarm 40 breaths per minute Insp Pressure High (cm H2O) 40 cm H2O MV High (L/min) 20 L/min MV Low (L/min) 2 L/min Vt High (zulma) (mL) 1000 mL Vt Low (zulma) (mL) 300 mL Vt High (spont) (mL) 1000 mL Vt Low (spont) (mL) 300 mL High VTi 1200 Apnea Interval (sec) 20 seconds Spontaneous Breathing Trial Weaning Tidal Volume 399 mL Weaning Respiratory Rate 22 Spontaneous Minute Volume (MV) 10 Weaning Vital Capacity 318 mL Total RSBI 47 Weaning Tolerance Good Weaning Stop Time 1525 Weaning Duration (min) 39 Passed SBT. * Ney Pinon RRT - 02/02/2024 2:48 PM EDT 02/02/24 1446 Spontaneous Awakening Trial Safety Screen Spontaneous Awakening Trial (SAT) Proceed with SAT - No exclusion criteria met Spontaneous Awakening Trial (SAT) Outcome SAT pass Wean Screen SpO2>/=88% Yes FiO2</=50% Yes PEEP </=8cmH2O Yes HR <140 BPM Yes RR </= 35 breaths/min Yes MAP >/= 65mmHg Yes Arterial pH >7.30 and <7.50 Yes Safety Screen Spontaneous Breathing Trial (SBT) Proceed with SBT - No exclusion criteria met IHI Ventilator Associated Pneumonia Bundle Head of Bed Elevated HOB 30 Spontaneous Breathing Trial Weaning Start Time 1446 Weaning Tidal Volume 403 mL Weaning Respiratory Rate 27 Spontaneous Minute Volume (MV) 10.7 Weaning Vital Capacity 318 mL Total RSBI 66 SBT started * Ney Pinon RRT - 02/02/2024 1:16 PM EDT Increased rate to 18 per MD due to ABG results. documented in this [facility]07-23-2024 Miscellaneous Notes* Care Coordination - Unknown Case Management - 02/09/2024 12:41 PM EDT Patient Choice Patient Name: DARIN BREAUX Date of : 1945 All Providers Sent Referral Name: [facility] Address: [address] [place] [address] Name: [facility] Address: [address] [place] [address] Name: [address] Phone: [phone] Address: [facility] [facility] [place] [address] Name: [facility] Phone: [phone] Address: [address] [place] [address] Name: [facility] Address: [address] [place] [address] Name: [facility] Address: [address], [address] [place] [address] Name: [facility] [employer], [facility] Address: [address] [facility] [address] [place] [address] Name: [facility] Address: [address] [address] Name: [facility] Address: [address] [place] [address] Name: [facility] Address: [address] [facility] [place] [address] Name: [facility] Address: [address] [place] [address] Name: [facility] Address: [address] [facility] [facility] [address] [place] [address] Name: [facility], [facility] Address: [address] [facility] [address] [place] [address] Name: [facility] Address: [address] [place] [address] Name: [facility] Address: [address] [facility] [place] [address] Name: [facility] Phone: [phone] Address: [address] [place] [address] Name: [facility] Phone: [phone] Address: [address] [place] [address] Name: [facility] Address: [address] [place] [address] Name: [facility] Address: [address] [place] [address] Name: [facility] Address: [address] [facility] [address] [place] [address] Name: [facility] Address: [address] [facility] [facility] [place] [address] Name: [facility] Address: [address] [facility] [facility] [place] [address] Name: [facility] [place] Phone: [phone] Address: [address] [place] [address] Name: [facility] Address: [address] [facility] [place] [address] Name: [facility] Address: [address] [facility] [address] [place] [address] Name: [facility] Off[facility]) Phone: [phone] Address: [address] [address] Name: [facility] Phone: [phone] Address: [address] [place] [address] Name: [facility] Address: [address] [place] [address] Name: [facility] Address: [address] [place] [address] Name: [facility] Address: [address] [facility] [address] [place] [address] Name: [facility] Address: [address] [facility] [address] [place] [address] Name: [facility] ([facility] Fac[facility] Only) Phone: [phone] Address: [facility] [place] [address] Name: [facility] [facility] Phone: [phone] Address: [facility] [place] [address] * Home Care - Christina Montiel RN - 02/09/2024 12:40 PM EDT [facility] notified that patient will discharge to home today. * Care Coordination - Esther Cannon RN - 02/09/2024 11:48 AM EDT Patient remains on T1 for CAD, s/p CABG 02/01. Cardiothoracic surgery cleared patient to discharge home today. [facility] and patient new to [facility]. Respiratory to see, to notify [facility], and they will handle all O2 needs. O2 portable concentrator to be del ivered to home. Therapy rec HHC with 24/hr assist. HHC following for discharge needs, referral placed 02/02. Anticipate discharge today. * Care Plan - Mike Crupm RN - 02/09/2024 11:41 AM EDT The patient is Moderately Stable - Low risk of patient condition declining or worsening Problem: Knowledge Deficit Goal: Patient/family/caregiver demonstrates understanding of disease process, treatment plan, medications, and discharge instructions Outcome: Progressing Problem: Potential for Compromised Skin Integrity Goal: Skin Integrity is Maintained or Improved Outcome: Progressing Goal: Nutritional status is improving Outcome: Progressing Problem: Urinary Incontinence Goal: Perineal skin integrity is maintained or improved Outcome: Progressing Problem: Problem Interventions Goal: Assess Nutritional Intake Outcome: Progressing * Significant Event - Elva Dietz MD - 02/08/2024 8:12 PM EDT Notified by RN regarding new symptoms. Patient endorsed transient central non- radiating chest discomfort. He had a transient spike in HR. Upon evaluation, HR normalized, paced, pain resolved. CXR showed no new findings. Vitals are stable on home 3 LPM. Exam notable for expiratory wheeze. Will administer PRN nebulized albuterol for possible bronchospasm. If happens again, will consider short course of prednisone. Answered all questions. * Care Coordination - Pily Nicole RN - 02/08/2024 8:38 AM EDT Images from the original note were not included. Care Management Progress Note Patient remains in CTV ICU, s/p CABG on 02/01. Chest tubes removed. Patient wishing to obtain portable O2 concentrator instead of tanks at home, call placed to [facility] by this TCC. Request made to JOB ANALYSIS MANAGER-STRUCTURAL METAL FABRICATOR APPRENTICE for DME order. Home O2 eval rec 3L. TCC to continue to follow. Discharge Milestones and Delays Expected date/time: 02/07/[address] discharge order Complete med reconciliation Case mgmt discharge readiness Clinical Stability Diagnostic Workup Patient Education Complete Expected Discharge History Expected Date/Time Set By Reviewed At 02/07/2024 Pily Nicole RN 02/05/2024 11:48 AM 02/07/2024 Olamide Tanner RN 02/04/2024 8:21 AM 02/07/2024 Olamide Tanner RN 02/03/2024 10:13 AM 02/07/2024 Wesley Magana, ROBIN - STRUCTURAL METAL FABRICATOR APPRENTICE 02/02/2024 12:09 PM 02/07/2024 Amado Vargas MD 02/02/2024 5:34 AM Length of Stay (Days): 6 GMLOS: 8.1 * Home Care - Christina Montiel RN - 02/05/2024 3:29 PM EDT Spoke with patient to discuss C agency choice. Reviewed accepting agencies, patients AOC is: [facility] * COVID-19: Positive patients under care,* COVID-19: Willing/Equipped to accept COVID-19 positive patients [id number] [facility], [address] [place] [phone] * Care Coordination - Pily Nicole RN - 02/05/2024 8:42 AM EDT Images from the original note were not included. Care Management Progress Note Patient remains on CTV ICU s/p CABG x3 POD #3. On 3L NC. Patient slightly hypertensive this am. Possible plans to remove chest tubes today. HHC following. TCC to continue to follow. Discharge Milestones and Delays Expected date/time: 02/07/[address] discharge order Complete med reconciliation Case mgmt discharge readiness Clinical Stability Diagnostic Workup Patient Education Complete Expected Discharge History Expected Date/Time Set By Reviewed At 02/07/2024 Olamide Tanner RN 02/04/2024 8:21 AM 02/07/2024 Olamide Tanner RN 02/03/2024 10:13 AM 02/07/2024 Wesley Magana APRN - RENETTA 02/02/2024 12:09 PM 02/07/2024 Amado Vargas MD 02/02/2024 5:34 AM Length of Stay (Days): 3 GMLOS: 8.1 * Care Plan - Steffanie Rojo RN - 02/04/2024 1:46 PM EDT Problem: Knowledge Deficit Goal: Patient/family/caregiver demonstrates understanding of disease process, treatment plan, medications, and discharge instructions Outcome: Progressing Problem: Potential for Compromised Skin Integrity Goal: Skin Integrity is Maintained or Improved Outcome: Progressing Problem: Urinary Incontinence Goal: Perineal skin integrity is maintained or improved Outcome: Progressing Problem: Problem Interventions Goal: Assess Nutritional Intake Outcome: Progressing * Care Coordination - Olamide Tanner RN - 02/04/2024 8:21 AM EDT Images from the original note were not included. Care Management Progress Note Patient remains in CTV ICU s/p CABG x 3 POD # 2. VSs-slightly hypertensive, on 3L NC, in NSR on tele, chest tube to water seal, insulin per endocrine, and PT recommending 24 hr supervision and HHC. DCP-home with HHC, patient out of [facility] service area, referrals sent per [facility]. Discharge Milestones and Delays Expected date/time: 02/07/[address] discharge order Complete med reconciliation Case mgmt discharge readiness Clinical Stability Diagnostic Workup Patient Education Complete Expected Discharge History Expected Date/Time Set By Reviewed At 02/07/2024 Olamide Tanner RN 02/04/2024 8:21 AM 02/07/2024 Olamide Tanner RN 02/03/2024 10:13 AM 02/07/2024 Wesley Magana APRN - STRUCTURAL METAL FABRICATOR APPRENTICE 02/02/2024 12:09 PM 02/07/2024 Amado Vargas MD 02/02/2024 5:34 AM Length of Stay (Days): 2 GMLOS: 8.1 * Care Coordination - Olamide Tanner RN - 02/03/2024 1:31 PM EDT Care Managment Initial Assessment Date: 02/03/2024 Patient Name: Darin Breaux : 1945 Patient Information Source of Information: Patient Cognition/Language: WFL - Within Functional Limits Permission given to speak with patient chain sales representative/caregiver as indicated: Confirmation of Payer with patient/family: Yes Payer Name: [facility] [place]: No Confirmation of Primary Care Physician: Confirmed PCP Name: Estephania Alvarado Seen in last 2 years?: Yes Primary Caregiver: Self If assistance needed, confirmed caregiver ready, willing and able to care for patient at discharge: Confirmed with: Living Arrangements Current Residence: House Number of Floors 2 Number of Entry Steps: 3 Bed/Bath Levels: Both first floor Facility: Facility Name: Plan to Return: Lives with: Children Support Systems: Children Activities of Daily Living Ambulation: Independent Bathing/Dressing: Independent Elimination/Continence/Toileting: Independent Feeding: Independent Who Assists with Activities of Daily Living: Instrumental Activities of Daily Living Prescription Coverage: Yes Pharmacy Used: [facility] Medication Management: Independent Transportation/Shopping: Independent Transportation Mode: Car Needs Assistance with Transportation at Discharge: No Meal Preparation: Assistance Provider Meal Prep Assistance Provider Name: BISHOP Laundry/Cleaning: Assistance Provider Laundry/Cleaning Assistance Provider Name: BISHOP Finances/Bill Paying: Assistance Provider Finances/Bill Payer Assistance Provider Name: BISHOP Communication: Independent Types of Care Services/Equipment Utilized Care Services: Dialysis Type: Durable Medical Equipment: Patient's Goal/Discharge Plan Patient expects to be discharged to: home Discharge Planning Actions: Continue to follow Patient's Choice Rights and [employer] and Collaborative Relationships Disclosed as Indicated for Post-Acute Care: Interdisciplinary Team Engagement: PT/OT, Home Health Care Social Work Referral for: Additional Information: Patient admitted to CTV ICU s/p CABG x 3 POD # 1. Spoke with patient at bedside, introduced self and role. Patient from home with daughter in law, isindependent, has PCP and prescription coverage, will have a ride home and agreeable to [facility] via an agency that can service his area. BLUE following Olamide Tanner RN * Care Plan - Lacie Salazar RN - 02/03/2024 1:17 PM EDT The patient is Moderately Stable - Low risk of patient condition declining or worsening * Care Plan - Hiram Monae RN - 02/02/2024 2:17 PM EDT The patient is Moderately Unstable - Medium risk of patient condition declining or worsening * Op Note - Amado Vargas MD - 02/02/2024 6:52 AM EDT Date of surgery 02/02/2024 Cardiothoracic Surgeon: Amado Vargas MD, FACS Preoperative diagnosis: Paroxysmal atrial fibrillation, CAD Postoperative diagnosis: The same Procedure: CABG x 3 [id number]; ao-om1-pda seq w/ rsvg EVH left leg Modifies MAZE w/ rf Atri-Cure la box lesion LA appendage exclusion with AtriClip Complications: None Anesthesia: GETA Indications for procedure: The patient is a 79-year-old gentleman referred with history of atrial fibrillation and CAD for ablation and coronary bypass surgery. Procedure in detail: The patient was positioned on the operating table in the supine position. The patient was prepped and draped in usual sterile fashion. A right IJ Cordis and radial arterial line were placed by the anesthesiologist. A portion of the greater saphenous vein was harvested from the left leg using endoscopic vein harvest technique through a 2 cm incision on the medial aspect of theleft leg. The vein was of good quality but somewhat thin in character. The branches were clipped with vascular clips and the vein was prepared in the usual fashion. The leg incision was closed with Vicryl and Monocryl. A median sternotomy was performed the left internal mammary artery was dissectedas a pedicle graft from the left anterior chest wall. The patient was systemically heparinized with3.5 mg/kg intravenous heparin. After 4 minutes elapsed since heparinization the CMDUFFIE pedicle was ligated and divided in fashion for bypass. The pericardium was incised aortic and right atrial pursestrings were placed after the ACT was verified the patient was cannulated placed on cardiopulmonary bypass cooled to 34 C. At this point the encompass clamp was used to perform the modified maze procedure to create the left atrial box lesion with radiofrequency ablation. Next the left atrial appendageexclusion was performed using the AtriClip. Next attention was directed to performing the bypass colten elaine. The RCA PDA branch was free of disease the anastomotic region and measured between 1.5 and 2 mm in diameter reverse saphenous vein to PDA was done with a 7-0 Prolene a ifdl-id-dlvj sequential was done to the first obtuse marginal which measured 1.5 mm in diameter clearly a small artery with moderate atherosclerosis this was also done with a 7-0 Prolene. The proximal on the aorta was then done with a 6-0 Prolene the vein graft and ascending aorta were de- aired in the usual fashion I also delivered cardioplegia antegrade through the vein graft after each distal. A warm induction, cold maintenance and warm reperfusion algorithm was utilized regarding cardioplegia. Next the patient was progressively warmed to 37 degrees and in the interim the MCDUFFIE was brought through a hole in the anterolateral aspect of the pericardium for more direct course to the LAD the LAD was totally calcified with areas of soft plaque. The mid LAD was grafted it measured about 2 mm in diameter MCDUFFIE to LAD wasdone with a 7-0 Prolene. Having completed the grafts the hotshot cardioplegia dosage was delivered antegrade and the cross-clamp removed the lungs were then reexpanded at approximately 5 minutes after cross-clamp removal the patient was weaned from cardiopulmonary bypass without incident. The patient has a pacemaker. Having successfully weaned from bypass protamine was given to reverse the systemic effects of heparin and the patient was decannulated a temporary pacing wire was placed to the base of the right ventricle with a ground wire in the upper abdominal wall the right pleural cavity wasnot entered the left pleural cavity was widely opened a 24 Italian Horace drain was placed in the left pleural cavity separately and 19 and a 24 Italian Ohrace were placed in the mediastinum after hemostasis was assured vancomycin paste was applied to the sternal edges and the sternum was closed with stainless to wire in an interrupted fashion. The presternal fascia was closed with a running #1 PDS. The soft tissues were closed with Vicryl and Monocryl and Dermabond dressing was applied. The patient was transferred stable and intubated with a paced rhythm with his intrinsic pacemaker on low-dose Levophed. * Brief Op Note - Amado Vargas MD - 02/02/2024 6:52 AM EDT Images from the original note were not included. Cardiothoracic Surgery Brief Operative Report Pre-operative Diagnosis: cad, a-fib Post-operative Diagnosis: same Procedure: CABG x 3 bepm-zqi-rgs; ao-om1-pda seq EVH left leg Modified MAZE w/ left atrial Encompass clamp by Atricure to perform RF ablation box lesion LA appendage exclusion w/ Atri-Clip Surgeon: Amado Vargas MD, FACS Food Service Supervisor(s): [x] Sera Ferguson [x] Ernestine Comer [] Lula Funez [] Lula Vasquez [] Other Anesthesia: General Estimated blood loss: 500 Total IV fluids: See anesthesia and perfusion record Blood Transfusion?: n Drains: 3 Specimens: 0 Complications: 0 Condition: stable Prophylactic Antibiotics: Yes 1st or 2nd generation cephalosporin given (or other antibiotic in the event of an allergy) within 1hour of surgical incision (two hours if receiving Vancomycin or flouroquinolone) If NO, indication reason why: [] Patient on continuous antibiotics for documented preoperative infection [] Other: The STS Risk Calculator score was calculated and discussed with the patient/family prior to surgery. Yes: [x] No: [] Not a risk calculated procedure [] Emergent or Emergent/Salvage Used of GIANNI: Yes/ No due to: [] Subclavian stenosis [] Emergent or Emergent/Salvage [] Prior cardiothoracic surgery [] Prior mediastinal radiation [] No bypassable LAD disease, LAD not needed/bypassed: (This can include clean LAD, diffusely diseased LAD or other condition resulting in the LAD not being bypassed). Beta-morteza within 24 hours prior to surgical incision: [x] Yes - please see documentation in EMR [] No [] Allergy [] Heart block [] COPD [] Hypotension BP: [] Bradycardia HR: See dictated operative report for full details. Electronically signed by @MEMDNR@ on @TDNR@ at @NOWNR@ documented in this [facility]07-23-2024 [facility] 02-07-2024 Nurse Note* Mariely Vera RN - 02/07/2024 2:53 PM EDT Took a phone call from [facility] for pacer interrogation... Stated that pacer was working "as it should", it's a dual chamber and is about 80% A-paced and 50% V-paced and that patient has been in A flutter since 7/16, rates as high as 110-120, no other events recorded. Attempted to find a print outbut nothing has been printed or faxed her yet. documented in this [facility]07-19-2024 Hospital Discharge instructions* Discharge Instr - IRA* Christina Montiel RN - 02/05/2024 3:31 PM EDT Images from the original note were not included. Continuity of Care Form Patient Name: Darin Breaux : 1945 Admit date: 02/02/2024 Discharge date: Code Status Order: Full Code Advance Directives: N Admitting Physician: Amado Vargas MD PCP: Estephania Alvarado Discharging Nurse: Discharging Hospital Unit/Room#: T1-107/T1107 A Discharging Unit Phone Number: Emergency Contact: Extended Emergency Contact Information Primary Emergency Contact: corey moran Mobile Relation: [id number] Audio Visual Aide needed? No Secondary Emergency Contact: [facility] Mobile Relation: Grandchild Past Surgical History: Past Surgical History: Procedure Laterality Date ABDOMINAL AORTIC ANEURYSM REPAIR BACK SURGERY lumbar discectomy CARPAL TUNNEL RELEASE Right CATARACT EXTRACTION Bilateral COLONOSCOPY CORONARY ANGIOPLASTY WITH STENT PLACEMENT 1996 CORONARY STENT PLACEMENT HERNIA REPAIR Bilateral inguinal TRANSURETHRAL RESECTION OF PROSTATE Immunization History: There is no immunization history on file for this patient. Active Problems: Medical Problems Problem List * (Principal) CAD in [place] artery Severe malnutrition (CMS/HCC) (HCC) Isolation/Infection: No active isolations No active infections Nurse Assessment: Last Vital Signs: BP 141/73 (BP Location: Right arm, Patient Position: Sitting) Pulse 65 Temp 36.5 C (97.7 F) (Temporal) Resp 16 Ht 1.88 m (6' 2") Wt 75.6 kg (166 lb 11.2 oz) SpO2 100% BMI 21.40 kg/m Last documented pain score (0-10 scale): Pain Level: 0 Last Weight: Wt Readings from Last 1 Encounters: 02/05/24 75.6 kg (166 lb 11.2 oz) Mental Status: {IRA Patient Mental Status:46007} IV Access: {IRA IV Access:24142} Nursing Mobility/ADLs: Walking {ROBB ADL:::"Independent"} Transfer {ROBB ADL:::"Independent"} Bathing {ROBB ADL:::"Independent"} Dressing {ROBB ADL:::"Independent"} Toileting {ROBB ADL:::"Independent"} Feeding {ROBB ADL:::"Independent"} Unit Supervisor {ROBB ADL:::"Independent"} Med Delivery {yes/no:96192} Wound Care Documentation and Therapy: Wound/Incision 02/02/24 Incision Calf Anterior;Left (Active) Site Assessment Clean;Dry 02/05/24 1200 Larisa-Wound Assessment Clean;Dry;Intact 02/05/24 1200 Odor None 02/05/24 1200 Drainage Amount None 02/05/24 1200 Primary Dressing Liquid Adhesive (Dermabond) 02/05/24 1200 Dressing Status Clean, dry & intact 02/05/24 0400 Number of days: 3 Wound/Incision 02/02/24 Incision Sternum (Active) Site Assessment Clean;Dry 02/05/24 1200 Larisa-Wound Assessment Clean;Dry;Intact 02/05/24 1200 Odor None 02/05/24 1200 Drainage Amount None 02/05/24 1200 Primary Dressing Liquid Adhesive (Dermabond) 02/05/24 1200 Dressing Status Clean, dry & intact 02/05/24 0400 Number of days: 3 Elimination: Continence: Bowel: {yes/no:80614} Bladder: {yes/no:46126} Urinary Catheter: {IRA Urinary Catheter:55665} Colostomy/Ileostomy/Ileal Conduit: {YES / NO:} Date of Last BM: Intake/Output Summary (Last 24 hours) at 02/05/2024 1531 Last data filed at 02/05/2024 1150 Gross per 24 hour Intake -- Output 1815 ml Net -1815 ml I/O last 3 completed shifts: In: 285 (3.8 mL/kg) [I.V.:285 (3.8 mL/kg)] Out: 2240 (29.6 mL/kg) [Urine:1720 (0.6 mL/kg/hr); Chest Tube:520] Weight: 75.6 kg Safety Concerns: {IRA Safety Concerns:20650} Impairments/Disabilities: {IRA Impairments/Disabilities:91567} Nutrition Therapy: Current Nutrition Therapy: {IRA Diet List:12279} Routes of Feeding: {routes of feedin} Liquids: {liquid consistency:60459} Daily Fluid Restriction: {daily fluid restriction:67748} Last Modified Barium Swallow with Video (Video Swallowing Test): {done not done:04909} Treatments at the Time of Hospital Discharge: Respiratory Treatments: Oxygen Therapy: {Therapy; copd oxygen:74953} Ventilator: {IRA Ventilator:19122} Rehab Therapies: {GEN THERAPY DISCIPLINE SCAL:4380285} Weight Bearing Status/Restrictions: {POD WEIGHT BEARIN} Other Medical Equipment (for information only, NOT a DME order): {Assistive Devices DME:52121} Other Treatments: Patient's personal belongings (please select all that are sent with patient): {IRA Patient Belongings:80851} RN SIGNATURE: {E-signature:28686} CASE MANAGEMENT/SOCIAL WORK SECTION Inpatient Status Date: Discharging to Facility/ Agency Name: [facility] Address:[address] [place] [address] Fax: Dialysis Facility (if applicable) Name: Address: Dialysis Schedule: Phone: Fax: Pattern Assembler/Felled Seam Operator signature: {E-signature:88100} PHYSICIAN SECTION Name: Darin Breaux Prognosis: {Rehab Prognosis:20354} Condition at Discharge: {Patient Condition:29168} Rehab Potential (if transferring to Rehab): {Rehab Prognosis:78477} Recommended Labs or Other Treatments After Discharge: The individual is being admitted to a nursing facility directly from an [facility] or a unit of a hospital that is not operated by or licensed by [facility] under section 5119.14 or 5160-3-15.1 5 The individual requires the level of services provided by a nursing facility for the condition for which he or she was treated in the hospital and, Physician Certification: I certify the above information and transfer of Darin Breaux is necessaryfor the continuing treatment of the diagnosis listed and that he requires {IRA Level of Care:50263}for {greater less than:98108} 30 days. Update Admission H&P: {IRA Changes in H&P:86606} PHYSICIAN SIGNATURE: {E-signature:10700} documented in this [facility]07-17-2024 Consult note* Evelina Singleton, RD - 02/03/2024 12:52 PM EDTAssociated Order(s): IP CONSULT TO DIETITIAN Nutrition Assessment Type and Reason for Visit: Initial, Consult, Patient Education (s/p open heart surgery) Nutrition Recommendations/Plan: Pt meets ASPEN/AND criteria for malnutrition as indicated below Consider liberalizing diet to promote PO intake Per MNT protocol, will order Ensure Surgery BID Heart healthy diet education is not indicated due to poor PO intake at baseline. Encouraged increased PO intake RD will monitor overall nutrition status and will follow weekly Malnutrition Assessment: Malnutrition Status: Severe malnutrition Context: Chronic Illness Findings of the 6 clinical characteristics of malnutrition: Energy Intake: 75% or less estimated energy requirements for 1 month or longer Weight Loss: No significant weight loss (underweight for age) Body Fat Loss: Severe body fat loss Orbital, Triceps, Buccal region, Fat Overlying Ribs Muscle Mass Loss: Severe muscle mass loss Temples (temporalis), Clavicles (pectoralis & deltoids) Fluid Accumulation: No significant fluid accumulation Director Of Patient Care Strength: Not Performed Nutrition Assessment: Pt with PMH including CAD, SD, PCI, cardiac dysrhythmia, atrial fibrillation, s/p pacemaker placement, carotid artery stenosis, HLD, HTN, recent workup for left sided chest pain and SOB with exertionwhich included stress test on 01/05/24 suggestive of mild ischemia with an LVEF of 43%, and heart cath on 01/12/24 demonstrating MV CAD, presented for surgical intervention and underwent CABGx3 on 02/02/24. Extubated with diet ordered. Pt is up in chair, eating lunch (meatloaf and mashed potatoes, ~ 50% ocnsumed), appears sleepy, reports he ate cornflakes at breakfast, endorses nausea earlier which is now resolved. Pt reports his usual intake is one meal daily and states "that's all I ever ate my whole life." He describes eating a large meal of potatoes and an omelet prior to admission. He reports UBW fluctuates and can get as high as 174#. Per weight hx, weight has been stable in 150s this year. Noted weights in 160s in years prior. Pt is unsure of reason for weight loss and denies changes to PO intake. RD advised that pt is unlikely to meet nutrition needs in one meal daily, encouraged increased PO intake during admission and after discharge, advised that his BMI is lower than optimal for his age. Pt is noted with areas of muscle wasting and subcutaneous fat losses. He is agreeable to ONS during admission. Diet education not appropriate due to low PO intake at baseline Estimated Daily Nutrient Needs: Energy Requirements Based On: Kcal/kg Weight Used for Energy Requirements: Current (28-35 kcal/kg) Weight for Energy Calculation (kg): 70.1 kg Total Energy Requirements (kcals/day): 4466-6239 Weight Used for Protein Requirements: Current (1.4-1.6 g/kg) Weight in Kg Used for Protein Requirements: 70.1 kg Estimated Total Protein (g/day): 98-112 Estimated Daily Total Fluid (ml/day): per MD Nutrition Related Findings: Nutrition History: Independent of feeding. Elio Scale Score: 17. Wound Type: Surgical Incision Net IO Since Admission: 5,520.12 mL [02/03/24 1252] Edema: none Bowel Sounds (All Quadrants): Tinkling, Active O2 Delivery Method: Nasal cannula, FiO2 (%): 40 %, O2 Flow Rate (L/min): 3 L/min Labs and meds reviewed: acetaminophen, 1,000 mg, Oral, q8h albuterol, 2.5 mg, Nebulization, TID aspirin, 81 mg, Oral, Daily atorvastatin, 80 mg, Oral, Daily chlorhexidine, 15 mL, Mouth/Throat, BID heparin, 5,000 Units, SubCUTAneous, BID insulin lispro, 0-6 Units, SubCUTAneous, TID WC Lidocaine, 1 patch, Topical, Daily mometasone-formoterol, 2 puff, Inhalation, BID mupirocin, , Nasal, BID pantoprazole, 40 mg, Oral, qAM AC polyethylene glycol (PEG) 3350, 17 g, Oral, Daily senna-docusate sodium, 2 tablet, Oral, Nightly sodium chloride 0.9%, 10 mL, IntraVENous, 2 times per day sodium chloride 0.9%, 5-40 mL, IntraCATHeter, q8h tiotropium, 2 puff, Inhalation, Daily vancomycin, 1,000 mg, IntraVENous, q12h lactated ringers, 250 mL sodium chloride, 20 mL/hr, Last Rate: 20 mL/hr (02/02/24 1200) BMP: Recent Labs 02/02/24 1131 02/02/24 1419 02/02/24 1932 02/03/24 0357 NA 138 137 138 138 K 4.2 4.2 4.5 4.6 CL 109* 108* 110* 109* CO2 24 20* 21* 20* BUN 19 18 20 20 CREATININE 1.32* 1.29* 1.28* 1.11 GLUCOSE 97 131* 138* 114* CALCIUM 8.4 8.4 8.7 8.7 MG 2.9* 2.3 2.2 2.1 PHOS 4.0 -- 3.5 -- Recent Labs 02/03/24 0111 02/03/24 0204 02/03/24 0403 02/03/24 0558 02/03/24 0852 02/03/24 1154 POCGLU 109* 105* 117* 102* 130* 138* Lab Results Component Value Date HGBA1C 5.1 01/26/2024 Lab Results Component Value Date EFBP 71 01/22/2024 Current Nutrition Therapies: Adult diet Regular; No Added Salt (3-4 gm); 5 carb choices (75 gm/meal) Current Oral Intake Average Meal Intake: (small meals) Average Supplements Intake: None Ordered Anthropometric Measures: Height: 188 cm (6' 2") Current Body Weight: 70.1 kg (154 lb 8.7 oz) (02/02) Admission Body Weight: 68 kg (150 lb) (stated) Usual Body Weight: (154# on 10/08/23, 153# on 10/26/23) [place] Body Weight (lbs) (Calculated): 190 lbs [place] Body Weight (Kg) (Calculated): 86 kg % [place] Body Weight (Calculated): 81.3 % BMI (kg/m2) (Calculated): 19.8 BMI Categories: Underweight (BMI less than 22) age over 65 Wt Readings from Last 10 Encounters: 02/03/24 70.1 kg (154 lb 8.7 oz) 01/26/24 68.2 kg (150 lb 6.4 oz) 01/22/24 68 kg (150 lb) 01/19/24 68 kg (150 lb) Nutrition Diagnosis: Severe malnutrition, In context of chronic illness related to inadequate protein-energy intake as evidenced by severe loss of subcutaneous fat, severe muscle loss (energy intake <75% estimated needs for >1 month) Nutrition Interventions: Food and/or Nutrient Delivery: Modify Current Diet, Start Oral Nutrition Supplement Nutrition Education/Counseling: Education not appropriate Coordination of Nutrition Care: Continue to monitor while inpatient Goals: Goals: PO intake 75% or greater, by next RD assessment Nutrition Monitoring and Evaluation: Food/Nutrient Intake Outcomes: Food and Nutrient Intake, Supplement Intake Physical Signs/Symptoms Outcomes: Biochemical Data, GI Status, Nutrition Focused Physical Findings,Skin, Weight Discharge Planning: Continue Oral Nutrition Supplement Evelina Singleton RD, LD Contact: *[phone] or via [facility] [employer] chat * Romy Shawn - 02/03/2024 10:49 AM EDTAssociated Order(s): IP CONSULT TO CARDIAC REHAB Received referral and reviewed chart. Unable to discuss Phase II Cardiopulmonary Rehab Referral with Darin Breaux at this time. Will follow to discuss program when appropriate. Patient will be contacted at home if discharged prior to discussion. * Ernestine Dias APRN - STRUCTURAL METAL FABRICATOR APPRENTICE - 02/02/2024 2:39 PM EDTAssociated Order(s): IP CONSULT TO ENDOCRINOLOGY Department of Internal Medicine Division of Endocrinology, Diabetes, & Metabolism Endocrinology Note Patient Name: Darin Breaux : 1945 AGE: 79 y.o. Room/Bed: T1-107/T1-107 A Admission Date: 02/02/2024 Visit Date: 02/02/2024 Reason for Endocrine Consult: post op heart Provider/Team Requesting Consult: cts PCP: Estephania Alvarado Outpt Boxing Machine Operator: No ASSESSMENT: Stress hyperglycemia Cabgx3 Cad / htn/ hld Copd Current smoker PLAN: Continue insulin gtt per protocol ICU goal <180 GMF goal <150 POCT BG ACHS-q1 on gtt Hypoglycemia management per protocol Carb controlled diet ANTICIPATED ENDOCRINE HOME GOING RECOMMENDATIONS: Optimized for Discharge from Endocrine standpoint: No Home Going Endocrine Rx Recommendations-- Likely none Outpt Follow Up-- PCP SUBJECTIVE/HPI: CHIEF COMPLAINT: No chief complaint on file. S/p CABGx3 Does not appear to have any hx of diabetes or thyroid disease Bgl below Stable In bed resting NPO Remains intubated sedated at time of exam Insulin gtt off on exam PRBC running On levo and propofol gtt X1 ct in place Does not appear to have DM hx, will clarify when extubated Per family in room- no dm or thyroid hx known Spoke with nursing and CTS Type of DM: NA Onset of DM: NA Home DM Medication Regimen: NA DM control (last A1c/glucose data): Lab Results Component Value Date HGBA1C 5.1 01/26/2024 Glucose Date/Time Value Ref Range Status 02/02/2024 02:03 PM 121 (H) 70 - 100 mg/dL Final 02/02/2024 01:06 PM 112 (H) 70 - 100 mg/dL Final 02/02/2024 12:11 PM 105 (H) 70 - 100 mg/dL Final Review of Systems All other systems reviewed and are negative. ROS negative except for those mentioned in HPI. OBJECTIVE: Vitals: 02/02/24 0853 02/02/24 1215 02/02/24 1316 02/02/24 1330 BP: (!) 104/44 Pulse: 55 60 61 Resp: 16 16 18 Temp: 36.2 C (97.2 F) 36.2 C (97.1 F) TempSrc: SpO2: 100% 100% Weight: 150 lb (68 kg) Height: 6' 2" (1.88 m) Physical Exam Vitals and nursing note reviewed. Constitutional: General: He is sleeping. He is not in acute distress. Appearance: He is ill-appearing. He is not toxic-appearing. Interventions: He is sedated and intubated. HENT: Head: Normocephalic and atraumatic. Eyes: Conjunctiva/sclera: Conjunctivae normal. Cardiovascular: Rate and Rhythm: Normal rate and regular rhythm. Pulses: Normal pulses. Pulmonary: Effort: Pulmonary effort is normal. No respiratory distress. He is intubated. Abdominal: Tenderness: There is no guarding. Musculoskeletal: Cervical back: Normal range of motion. Skin: General: Skin is warm and dry. Findings: Bruising present. Comments: Intact mid incision 24 hour intake/output: Intake/Output Summary (Last 24 hours) at 02/02/2024 1439 Last data filed at 02/02/2024 1215 Gross per 24 hour Intake 3976.12 ml Output 795 ml Net 3181.12 ml Diet: NPO diet Medications (as per EMR): HomeMeds: Current Outpatient Medications Medication Instructions albuterol 108 (90 Base) MCG/ACT inhaler 2 puffs, Inhalation, Every 6 hours PRN amLODIPine (NORVASC) 5 mg, Oral, Daily aspirin 81 mg, Oral, Daily atorvastatin (LIPITOR) 10 mg, Oral, Daily benzonatate (TESSALON) 200 mg, Oral, 3 times daily PRN chlorhexidine (Peridex) 0.12 % solution 15 mL, Mouth/Throat, Once, Swish for 30 seconds and spit out the night before surgery. Do not swallow. cholecalciferol (VITAMIN D-3) 2,000 Units, Oral, Daily ciprofloxacin (CIPRO) 250 mg, Oral, 2 times daily dilTIAZem CD (CARDIZEM CD) 120 mg, Oral, Daily Eliquis 5 mg, Oral, 2 times daily Ferrous Sulfate (IRON PO) 1 tablet, Oral, Daily fluticasone (Flonase) 50 MCG/ACT nasal spray 2 sprays, Each Nostril, Daily FOLIC ACID PO 1 tablet, Oral, Daily ipratropium-albuterol (Duo-Neb) 0.5-2.5 mg/3 mL nebulizer solution 3 mL, Nebulization, Every 6 hours PRN isosorbide mononitrate ER (IMDUR) 30 mg, Oral, Daily, Do not crush or chew. lisinopril 10 MG tablet Oral, Daily metoprolol tartrate (LOPRESSOR) 100 mg, Oral, 2 times daily mupirocin (Bactroban) 2 % ointment Apply liberal amount per nostril the night before surgery and then again the morning of surgery nitroglycerin (NITROSTAT) 0.4 mg, SubLINGual, Every 5 min PRN pantoprazole (PROTONIX) 20 mg, Oral, Daily before breakfast Spiriva Respimat 2.5 MCG/ACT inhaler 2 puffs, Daily Symbicort 160-4.5 MCG/ACT inhaler 2 puffs, Inhalation, 2 times daily Scheduled Meds:acetaminophen, 1,000 mg, Oral, q8h chlorhexidine, 15 mL, Mouth/Throat, BID lactated ringers, 500 mL, IntraVENous, Once Lidocaine, 1 patch, Topical, Daily mupirocin, , Nasal, BID [START ON 02/03/2024] pantoprazole, 40 mg, IntraVENous, Daily polyethylene glycol (PEG) 3350, 17 g, Oral, Daily senna-docusate sodium, 2 tablet, Oral, Nightly sodium chloride 0.9%, 10 mL, IntraVENous, 2 times per day sodium chloride 0.9%, 5-40 mL, IntraCATHeter, q8h vancomycin, 1,000 mg, IntraVENous, q12h Continuous Infusions:EPINEPHrine, 0.01-0.2 mcg/kg/min insulin regular, 1-50 Units/hr lactated ringers, 250 mL niCARdipine, 3-15 mg/hr nitroglycerin, 5-300 mcg/min norepinephrine, 0.01-0.2 mcg/kg/min, Last Rate: 0.18 mcg/kg/min (02/02/24 1236) propofol, 5-50 mcg/kg/min, Last Rate: Stopped (02/02/24 1418) sodium chloride, 20 mL/hr, Last Rate: 20 mL/hr (02/02/24 1200) PRN Meds:PRN medications: albumin human, calcium gluconate, dextrose, dextrose, EPINEPHrine, glucagon (rDNA), glucose, HYDROmorphone OR HYDROmorphone, ipratropium-albuterol, lactated ringers, magnesium hydroxide, magnesium sulfate OR magnesium sulfate, niCARdipine, nitroglycerin, norepinephrine, oxyCODONE OR oxyCODONE, potassium chloride OR potassium chloride OR potassium chloride, [START ON 02/03/2024] potassium chloride CR, sodium chloride, sodium chloride, sodium chloride,sodium chloride 0.9%, sodium chloride 0.9% Diagnostic Workup: I reviewed pertinent Laboratory results, Radiographic results, and Other Clinical Notes at the timeof today's encounter. Labs: No components found for: "LABA1C" No components found for: "EAG" Lab Results Component Value Date NA 138 02/02/2024 K 4.2 02/02/2024 CL 109 (H) 02/02/2024 CO2 24 02/02/2024 BUN 19 02/02/2024 CREATININE 1.32 (H) 02/02/2024 GLUCOSE 97 02/02/2024 CALCIUM 8.4 02/02/2024 No results found for: "CHLPL", "CHOL" No results found for: "TRIG" No results found for: "HDL" No results found for: "LDLCALC" No results found for: "VLDL" No results found for: "CHOLHDLRATIO" No results found for: "[id number]" No results found for: "TSH", "V1ODLZB", "A5HENLH", "THYROIDAB" Radiology reportsas per the Radiologist Radiology: POCT glucose meter Result Date: 02/02/2024 Performed by: [facility], [address] [place] [address] CLIA ID: [id number] POCT glucose meter Result Date: 02/02/2024 Performed by: [facility], [address] [place] [address] CLIA ID: [id number] Transesophageal echocardiogram (YULIANA) with contrast and 3D PRN Result Date: 02/02/2024 Left Ventricle: Left ventricle size is normal. Normal wall thickness. Normal left ventricular systolic function. The EF by visual approximation is 65%. Normal wall motion. Right Ventricle: Right ventricle size is normal. Normal systolic function. Left Atrium: No left atrial appendage thrombus noted. No significant valvular abnormalities. ECG 12 lead A-V dual-paced rhythm with some inhibition POCT glucose meter Result Date: 02/02/2024 Performed by: [facility], [address] [place] [address] CLIA ID: [id number] History/Other: Past Medical History: Past Medical History: Diagnosis Date AAA (abdominal aortic aneurysm) (HCC) Arthritis Atrial fibrillation (HCC) Carotid artery stenosis COPD (chronic obstructive pulmonary disease) (HCC) Coronary artery disease GERD (gastroesophageal reflux disease) Hyperlipidemia Hypertension Myocardial infarction (HCC) Presence of permanent cardiac pacemaker Past Surgical History: Past Surgical History: Procedure Laterality Date ABDOMINAL AORTIC ANEURYSM REPAIR BACK SURGERY lumbar discectomy CARPAL TUNNEL RELEASE Right CATARACT EXTRACTION Bilateral COLONOSCOPY CORONARY ANGIOPLASTY WITH STENT PLACEMENT 1996 CORONARY STENT PLACEMENT HERNIA REPAIR Bilateral inguinal TRANSURETHRAL RESECTION OF PROSTATE Allergy(ies): Allergies Allergen Reactions Penicillins Hives Plavix [Clopidogrel] Hives Tamsulosin Other Blacked out Family History: No family history on file. 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 Best attempts were made to edit/proofread the information prior to note completion. Despite the review of information, some errors may remain. If there are questions related to the information contained within the note please contact the signing physician directly. I spent 50 minutes with the pt which involved coordination of care, medical evaluation, review of records, and/or counseling of the pt regarding his/her condition/disease state/prognosis on the date of this note. * Austen Suarez MD - 02/02/2024 1:01 PM EDT Images from the original note were not included. Internal Medicine: MICU Initial Consult Name: Darin Breaux : 1945(79 y.o.) Date: 02/02/24 Attending: Dr. Suarez Subjective: Chief Complaint: Unstable angina, CP, SOB on exertion HPI: 79 y/o male with PMH of unstable angina, severe three-vessel CAD, atrial fib, pacemaker implantation. Other PMH includes tobacco use and COPD. Today his is s/p CABG x 3, modified MAZE, [place] appendage Atri-Clip Currently, pt sedated, intubated on ventilator in the ICU Past Medical History: Diagnosis Date AAA (abdominal aortic aneurysm) (HCC) Arthritis Atrial fibrillation (HCC) Carotid artery stenosis COPD (chronic obstructive pulmonary disease) (HCC) Coronary artery disease GERD (gastroesophageal reflux disease) Hyperlipidemia Hypertension Myocardial infarction (HCC) Presence of permanent cardiac pacemaker Past Surgical History: Procedure Laterality Date ABDOMINAL AORTIC ANEURYSM REPAIR BACK SURGERY lumbar discectomy CARPAL TUNNEL RELEASE Right CATARACT EXTRACTION Bilateral COLONOSCOPY CORONARY ANGIOPLASTY WITH STENT PLACEMENT 1996 CORONARY STENT PLACEMENT HERNIA REPAIR Bilateral inguinal TRANSURETHRAL RESECTION OF PROSTATE No family history on file. Social History Socioeconomic History Marital status: Unknown Spouse name: Not on file Number of children: Not on file Years of education: Not on file Highest education level: Not on file Occupational History Not on file Tobacco Use Smoking status: Every Day Current packs/day: 0.50 Average packs/day: 1.9 packs/day for 68.5 years (133.3 ttl pk-yrs) Types: Cigarettes Start date: 1954 Smokeless tobacco: Never Vaping Use Vaping status: Never Used Substance and Sexual Activity Alcohol use: Not Currently Comment: sober since 2006 Drug use: Never Sexual activity: Not on file Other Topics Concern Not on file Social History Narrative Not on file Social Determinants of Health Financial Resource Strain: Not on file Food Insecurity: Not on file Transportation Needs: Not on file Physical Activity: Not on file Stress: Not on file Social Connections: Not on file Intimate Partner Violence: Not At Risk (02/02/2024) Humiliation, Afraid, Rape, and Kick questionnaire Fear of Current or Ex-Partner: No Emotionally Abused: No Physically Abused: No Sexually Abused: No Housing Stability: Not on file Allergies Allergen Reactions Penicillins Hives Plavix [Clopidogrel] Hives Tamsulosin Other Blacked out Prior to Admission medications Medication Sig Start Date End Date Taking? Authorizing Provider albuterol 108 (90 Base) MCG/ACT inhaler Inhale 2 puffs every 6 hours as needed. 10/15/23 Yes Historical Provider, amLODIPine (Norvasc) 5 MG tablet Take 5 mg by mouth daily. 12/31/23 Yes Historical Provider, aspirin 81 MG EC tablet Take 81 mg by mouth daily. Yes Historical Provider, atorvastatin (Lipitor) 10 MG tablet Take 10 mg by mouth daily. 12/31/23 Yes Historical Provider, benzonatate (Tessalon) 200 MG capsule Take 200 mg by mouth 3 times daily as needed. 10/08/23 Yes Historical Provider, chlorhexidine (Peridex) 0.12 % solution Use 15 mL in the mouth or throat Once for 1 dose. Swish for30 seconds and spit out the night before surgery. Do not swallow. 01/26/24 02/02/24 Yes ROBIN Saez CNP ciprofloxacin (Cipro) 250 MG tablet Take 1 tablet (250 mg) by mouth 2 times daily for 5 days. 01/28/24 02/02/24 Yes ROBIN Evans CNP dilTIAZem CD (Cardizem CD) 120 MG 24 hr capsule Take 120 mg by mouth daily. Yes Historical Provider, fluticasone (Flonase) 50 MCG/ACT nasal spray Administer 2 sprays into each nostril daily. 12/31/23 Yes Historical Provider, ipratropium-albuterol (Duo-Neb) 0.5-2.5 mg/3 mL nebulizer solution Take 3 mL by nebulization every 6 hours as needed. 09/10/23 Yes Historical Provider, isosorbide mononitrate ER (Imdur) 30 MG 24 hr tablet Take 30 mg by mouth daily. Do not crush or chew. Yes Historical Provider, lisinopril 10 MG tablet Take by mouth daily. Yes Historical Provider, metoprolol tartrate (Lopressor) 100 MG tablet Take 100 mg by mouth 2 times daily. 01/02/24 Yes Historical Provider, mupirocin (Bactroban) 2 % ointment Apply liberal amount per nostril the night before surgery and then again the morning of surgery 01/26/24 Yes ROBIN Saez CNP pantoprazole (ProtoNix) 20 MG EC tablet Take 20 mg by mouth every morning (before breakfast). 01/02/24 Yes Historical Provider, Spiriva Respimat 2.5 MCG/ACT inhaler 2 puffs daily. 12/31/23 Yes Historical Provider, Symbicort 160-4.5 MCG/ACT inhaler Inhale 2 puffs in the morning and 2 puffs in the evening. 12/31/23Yes Historical Provider, cholecalciferol (Vitamin D-3) 50 MCG (2000 UT) capsule Take 2,000 Units by mouth daily. Historical Provider, Eliquis 5 MG tablet Take 5 mg by mouth 2 times daily. 01/13/24 Historical Provider, Ferrous Sulfate (IRON PO) Take 1 tablet by mouth daily. Historical Provider, FOLIC ACID PO Take 1 tablet by mouth daily. Historical Provider, nitroglycerin (Nitrostat) 0.[address] 0.4 mg under the tongue every 5 minutes as needed.12/31/23 Historical Provider, Objective: Oxygen Delivery: O2 Flow Rate (L/min): 3 L/min (wears home o2) VITALS: BP 137/84 Pulse 55 Temp 36.2 C (97.2 F) Resp 16 Ht 1.88 m (6' 2") Wt 68 kg (150 lb) SpO2 100% BMI 19.26 kg/m CURRENT PULSE OXIMETRY: SpO2: 100 % Review of Systems Unable to perform ROS: Intubated Constitutional: General Appearance [x]WDWN []Obese []Cachectic []Thin []Ill Eyes: Inspection of Pupils/Irises Pupils round and react: [x]Yes []No Sclera: []Icteric [x]Non-Icteric Inspection of Conjunctiva/Lids Conjunctiva: []Injected [x]Non-Injected Lids: []Intact []Lesion Present ENT/Mouth: External Inspection of ears/nose [] Normal [] Scar/Lesion/Mass Inspection of teeth/lips/gums Dentition: [][place] Teeth []Dentures Lips/Gums: [x]Intact []Lesion Present Mucosa: [x][place] [x]Moist []Dry Neck: External Appearance Overall Appearance: [x]Normal []Lesion/Mass/Crepitus Present Trachea midline: [x]Yes []No Thyroid []Normal []Enlarged []Tender []Mass []Absent Respiratory: Respiratory effort []Labored [x]Non-Labored [] Mechanically-Ventilated Auscultation [x]Clear diminished symmetric []Crackles []Wheezes [][place] Cardiovascular: Auscultation Rate: [x]Regular []Irregular []Tachycardia []Bradycardia Rhythm: [x]Regular -- paced []Irregular Murmur: []Present []Absent Extremities Peripheral Edema: []Present [x]Absent Varicosities: []Present []Absent Gastrointestinal: Abdomen Palpation: [x]Soft []Firm []Tender []Non-Tender []Distended [x]Non-distended Mass: []Present []Absent Bowel Sounds: []Present []Absent Hernia: []Present []Absent Liver/Spleen: []Hepatosplenomegaly []Organomegaly Absent Musculoskeletal: Inspection of Digits and Nails Cyanosis: [x]Present []Absent Clubbing: [x]Present []Absent Ischemia: []Present []Absent Infection: []Present []Absent Extremities ANDRADE Equally: Except ([]RUE []RLE []LUE []LLE) Strength/Tone: Intact and Normal ([]RUE []RLE []LUE []LLE) Skin: Inspection [x]Normal []Rash []Lesion []Ulcer Palpation []Warm []Cool []Dry []Clammy []Nodules []Induration []Skin-tightening Cap-Refill: [] <3 sec [] >3 seconds (delayed) Neurologic: GCS EYE: 1 - No eye opening GCS MOTOR: 1 - No motor response GCS VERBAL: 1 - No response Total GCS: sedated, intubated [] Sensation grossly intact Psych: Mental Status Alert: [x]Yes [] No Oriented: []x0 []X1 []X2 []x3 Mood/Affect []Normal []Flat []Agitated []Depressed []Anxious []Calm [x]Sedated []NAD [facility] within last 24 hours- BMP: Recent Labs 02/02/24 1131 NA 138 K 4.2 CL 109* CO2 24 BUN 19 CREATININE 1.32* CALCIUM 8.4 MG 2.9* PHOS 4.0 LFTs: No results for input(s): "AST", "ALT", "PROT", "ALBUMIN", "BILITOT", "BILIRUBINU", "ALKPHOS","LIPASE" in the last 72 hours. Glucose: Recent Labs 02/02/24 1131 02/02/24 1211 GLUCOSE 97 -- POCGLU -- 105* Procal: No results for input(s): "PROCAL" in the last 72 hours. CBC: Recent Labs 02/02/24 1131 02/02/24 1239 WBC 11.9* -- HGB 7.0 6.5* 6.6* HCT 20.4* -- PLT 156 -- MCV 96.7 -- RDW 15.3* -- ABGs: Recent Labs 02/02/24 1131 02/02/24 1239 PHART 7.238* 7.259* [id number] 58.1* 46.0* PO2ART 392.7* 228.3* [id number] 24.2 20.1* [id number] ETT Vent Lactic Acid: No results for input(s): "LACTATE" in the last 72 hours. INR: Recent Labs 02/02/24 1131 INR 1.4* Cardiac Injury Profile: No results for input(s): "CKTOTAL", "CKMB", "TROPONINI" in the last 72 hours. Labs in Last 3 months: Lab Results Component Value Date INR 1.4 (H) 02/02/2024 Microbiology- Urine Cx: Lab Results Component Value Date URINECX Normal urogenital severiano present 01/26/2024 URINECX 10,000-50,000 CFU/mL Aerococcus urinae (A) 01/26/2024 Blood Cx: No results found for: "BLOODCX" Sputum Cx: No results found for: "RESPCULT" Gram Stain: No results found for: "LABGRAM" PNA PCR: No results found for: "HUMANMETAPNE" COVID19: No results found for: "COVID19" Legionella Ag: No results found for: "LEGIONELLAPN" Strep Ag: No results for input(s): "STREPPNEUMO" in the last 72 hours. Imaging- Assessment and Plan: Principal Problem: CAD in [place] artery Assessment: Severe CAD, unstable angina, Afib, pacer, HTN, HLD 02/01 s/p CABG x 3, modified MAZE, Atri-Clip Post op ventilator management, resp acidosis, COPD Expected anemia post op Plan: Remains on vent, adjust RR, repeat ABG Wean sedation for SBT as tolerated for possible extubation later today Transfuse prn, wean levophed as tolerated CXR with ETT and right IJ central -- adequate position, OG tube repositioned GI Prophylaxis: Pantoprazole IV DVT Prophylaxis: SCDs BMI Classification: Body mass index is 19.26 kg/m . normal BMI 18.5-24.9 Disposition: Remain in ICU Status Critical Care Time: 32 minutes Total critical care time caring for this patient with life threatening, unstable organ failure, including direct patient contact, management of life support systems, review of data including imaging and labs, discussions with other team members and physicians, excluding procedures. * Wesley CottonJoycelyn Magana, JOB ANALYSIS MANAGER - STRUCTURAL METAL FABRICATOR APPRENTICE - 02/02/2024 12:23 PM EDT Images from the original note were not included. [facility]: Critical Care Consultation Note Date: 02/02/24 PATIENT NAME: Darin Breaux : 1945 (79 y.o.) Reason for Consult: Critical Care & Vent Management HPI: Darin Breaux is a 79 y.o. male referred by Dr. Valentin for CABG. Patient has history of CAD, SD, PCI, cardiac dysrhythmia, atrial fibrillation, s/p pacemaker placement, carotid artery stenosis, hyperlipidemia, HTN. Pt saw Cardiology in November 2023 and reported left sided chest pain that radiates to left arm and SOB with exertion. Stress test was ordered and completed on 01/05/24 which demonstrated small reversible perfusion defect of the apex suggestive of mild ischemia with an LVEF of 43%. Pt underwent heart catheterization on 01/12/24 which demonstrated multivessel CAD. Patient saw Dr. Vargas in the OP setting, agreed to surgical intervention, surgery scheduled for 02/02/24. Surgery: 02/02/24: Dr. Vargas- CABGx3 ([id number], SVG-[id number] sequential), RUPA, modified MAZE with left atrial appendage clip Interval History: 02/02/24: POD #0: Patient arrived to the unit, intubated and sedated. Surgical hand off completed below. Surgery Hand Off: Arrival Time in CTVICU: 1215 Complications/Pertinent Events: Last Paralytic: Medications given in route: Gtts OR report Norepinephrine: 0.1mcg/kg/min Propofol: 20mcg/kg/min Insulin: off Amicar: 29 Current gtts upon arrival Norepinephrine: 0.1mcg/kg/min Propofol: 20mcg/kg/min Insulin: off Amicar: 29 Devices: Epicardial wires: yes [x] no [] IABP: yes [] no [x] LVAD: yes [] no [x] Speed: Equipment: Back up controller yes [] no [x] Blood Transfusions Intra Op: yes [x] no [] FFP: 1 PLT: 1 CellSaver: Yes Vital Signs including Cardiac Numbers (if indicated) at Conclusion of Hand-off OR CTVICU CO No Shirley CI CVP SVR PAP Additional Interventions/Misc during Handoff Review of Systems Unable to perform ROS: Intubated Allergies: Penicillins, Plavix [clopidogrel], and Tamsulosin Past Medical History: has a past medical history of AAA (abdominal aortic aneurysm) ([facility]), Arthritis, Atrial fibrillation([facility]), Carotid artery stenosis, COPD (chronic obstructive pulmonary disease) ([facility]), Coronary arterydisease, GERD (gastroesophageal reflux disease), Hyperlipidemia, Hypertension, Myocardial infarction ([facility]), and Presence of permanent cardiac pacemaker. Past Surgical History: has a past surgical history that includes Abdominal aortic aneurysm repair; Cataract extraction (Bilateral); Carpal tunnel release (Right); Coronary stent placement; Hernia repair (Bilateral); Back surgery; Coronary angioplasty with stent (1996); Colonoscopy; and Transurethral resection of prostate. Social History: reports that he has been smoking cigarettes. He started smoking about 68 years ago. He has a 133.3 pack-year smoking history. He has never used smokeless tobacco. He reports that he does not currently use alcohol. He reports that he does not use drugs. Family History: family history is not on file. Medications: Prior to Admission medications Medication Sig Start Date End Date Taking? Authorizing Provider albuterol 108 (90 Base) MCG/ACT inhaler Inhale 2 puffs every 6 hours as needed. 10/15/23 Yes Historical Provider, amLODIPine (Norvasc) 5 MG tablet Take 5 mg by mouth daily. 12/31/23 Yes Historical Provider, aspirin 81 MG EC tablet Take 81 mg by mouth daily. Yes Historical Provider, atorvastatin (Lipitor) 10 MG tablet Take 10 mg by mouth daily. 12/31/23 Yes Historical Provider, benzonatate (Tessalon) 200 MG capsule Take 200 mg by mouth 3 times daily as needed. 10/08/23 Yes Historical Provider, chlorhexidine (Peridex) 0.12 % solution Use 15 mL in the mouth or throat Once for 1 dose. Swish for30 seconds and spit out the night before surgery. Do not swallow. 01/26/24 02/02/24 Yes ROBIN Saez CNP ciprofloxacin (Cipro) 250 MG tablet Take 1 tablet (250 mg) by mouth 2 times daily for 5 days. 01/28/24 02/02/24 Yes ROBIN Evans CNP dilTIAZem CD (Cardizem CD) 120 MG 24 hr capsule Take 120 mg by mouth daily. Yes Historical Provider, fluticasone (Flonase) 50 MCG/ACT nasal spray Administer 2 sprays into each nostril daily. 12/31/23 Yes Historical Provider, ipratropium-albuterol (Duo-Neb) 0.5-2.5 mg/3 mL nebulizer solution Take 3 mL by nebulization every 6 hours as needed. 09/10/23 Yes Historical Provider, isosorbide mononitrate ER (Imdur) 30 MG 24 hr tablet Take 30 mg by mouth daily. Do not crush or chew. Yes Historical Provider, lisinopril 10 MG tablet Take by mouth daily. Yes Historical Provider, metoprolol tartrate (Lopressor) 100 MG tablet Take 100 mg by mouth 2 times daily. 01/02/24 Yes Historical Provider, mupirocin (Bactroban) 2 % ointment Apply liberal amount per nostril the night before surgery and then again the morning of surgery 01/26/24 Yes ROBIN Saez CNP pantoprazole (ProtoNix) 20 MG EC tablet Take 20 mg by mouth every morning (before breakfast). 01/02/24 Yes Historical Provider, Spiriva Respimat 2.5 MCG/ACT inhaler 2 puffs daily. 12/31/23 Yes Historical Provider, Symbicort 160-4.5 MCG/ACT inhaler Inhale 2 puffs in the morning and 2 puffs in the evening. 12/31/23Yes Historical Provider, cholecalciferol (Vitamin D-3) 50 MCG (1999 UT) capsule Take 2,000 Units by mouth daily. Historical Provider, Eliquis 5 MG tablet Take 5 mg by mouth 2 times daily. 01/13/24 Historical Provider, Ferrous Sulfate (IRON PO) Take 1 tablet by mouth daily. Historical Provider, FOLIC ACID PO Take 1 tablet by mouth daily. Historical Provider, nitroglycerin (Nitrostat) 0.[address] 0.4 mg under the tongue every 5 minutes as needed.12/31/23 Historical Provider, Objective: BP 137/84 Pulse 63 Temp 36.6 C (97.9 F) (Temporal) Resp 16 Ht 6' 2" (1.88 m) Wt 150 lb (68 kg) SpO2 100% BMI 19.26 kg/m Intake/Output Summary (Last 24 hours) at 02/02/2024 1223 Last data filed at 02/02/2024 1210 Gross per 24 hour Intake 3343 ml Output 545 ml Net 2798 ml Physical Exam Vitals reviewed. Constitutional: Interventions: He is sedated and intubated. HENT: Mouth/Throat: Comments: ETT/OG. Neck: Comments: Central line. Cardiovascular: Rate and Rhythm: Normal rate. Pulses: Normal pulses. Comments: Paced rhythm. Pulmonary: Effort: He is intubated. Breath sounds: No wheezing or rales. Comments: Ventilator assisted, diminished throughout. Abdominal: General: There is no distension. Palpations: Abdomen is soft. Comments: Chest tubes in place, dressing dry and intact. Genitourinary: Comments: Ny. Musculoskeletal: General: No swelling. Skin: General: Skin is warm and dry. Capillary Refill: Capillary refill takes less than 2 seconds. Comments: LEVH with NEO wrap intact. Neurological: Comments: Sedated. Diagnostics: Reviewed in EMR Labs: Reviewed in EMR BMP: Recent Labs 02/02/24 1131 NA 138 K 4.2 CL 109* CO2 24 BUN 19 CREATININE 1.32* CALCIUM 8.4 MG 2.9* PHOS 4.0 CBC: Recent Labs 02/02/24 1131 WBC 11.9* HGB 7.0 6.5* HCT 20.4* PLT 156 MCV 96.7 RDW 15.3* INR: Recent Labs 02/02/24 1131 INR 1.4* Assessment: CAD, previous SD s/p PCI now with in-stent stenosis s/p CABG SSS, atrial fibrillation S/p dual chamber [facility], on Eliquis HTN Dyslipidemia COPD/emphysema on home 3L O2 Current tobacco abuse GERD Abdominal aortic aneurysm s/p endovascular repair Post operative Pulm Management: Normal Post-operative Course Post-operative Atrial Fibrillation: []Yes [x] No Acute blood loss anemia Plan: - Sugamadex x1 - Wean sedation as able, goal RASS -1 to 0 - SAT/SBT when appropriate->extubate, likely to PAP - STAT CXR and repeat lab work - Finish FFP on arrival - Give 500mL LR and 50 albumin - Scheduled acetaminophen and lidocaine patches, PRN dilaudid and PO oxy - Hemodynamic goals: CI >2.0, SBP 90-130 mmHg, MAP 60-75 - PRN Hypertension 1st option Cardene gtt 2nd option or if Cardene unavailable Nitro -PRN Hypotension CI >2.0 euvolemic with low SVR- Levophed gtt CI <2.0 euvolemic - Epinephrine gtt - Temp pacing wires/mode: at backup - Chest tubes: no air leak or fluctuation noted, suction -20 - Cefazolin - surgical prophy for 5 doses total - Wean to Extubation: Arrival Time in unit: 1215 - Vent: ACVC+, TV 6ml/kg/min, rate 12, fio2 100% PEEP 8 VAP protocol: HOB >30 degrees; peridex BID - HgbA1c: 5.1 - Blood glucose 105 - Insulin gtt; per endo/protocol - GI prophy: Protonix IV daily Patient treatment plan and plan of care discuss with Dr. Austen Bravo documented in this encounterSSelect Medical [facility] - [id number] [facility] 02-02-2024 [facility]07-16-2024 [facility] 01-26-2024 History and physical note* ROBIN Ames CNP - 01/26/2024 2:00 PM EDT Images from the original note were not included. Addendum 01/27/2024 0900: Abnormal PAT labs sent to [facility] CT surg TACO pool for review Maddie Vernon APRN - STRUCTURAL METAL FABRICATOR APPRENTICE Comprehensive Pre Surgical History and Physical ? Name: Darin Breaux : 1945 (Age-79 y.o.) Date of Service: Pt seen/examined on 01/26/2024 Procedure Information Date/Time: 02/02/24 0700 Procedures: CORONARY ARTERY BYPASS GRAFT, MODIFIED MAZE PROCEDURE FOR ATRIAL ABLATION WITH RADIOFREQUENCY ABLATION BY ATRICURE USING THE ENCOMPASS CLAMP AND THE LEFT ATRIAL APPENDAGE EXCLUSION WITH THE ATRICLIP,TRANSESOPHAGEAL ECHOCARDIOGRAM (Chest) - 7:00 am, 5 hours Operative tissue ablation and reconstruction of atria (Maze procedure) OPERATIVE TISSUE ABLATION AND RECONSTRUCTION OF ATRIA LIMITED PERFORMED WITH OTHER PROCEDURES Echocardiography transesophageal real-time Location: [facility] Operating Room Surgeons: Amado Vargas MD Chief Complaint: 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) [I25.110] ASSESSMENT/PLAN: Patient is considered high risk for this high risk procedure/surgery () with no reducible risk factors. Based on the above evaluation, the benefits of the planned procedure likely exceed the risks. The patient is medically optimized to proceed with the planned procedure without any further cardiopulmonary testing. 1) 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) [I25.110] - Managed per surgery - Orders per PAT Protocol: EKG, T&S, T&Cx2, CMP, CBC, A1c, PT/INR, PTT, MRSA, UA and CXR - EKG 01/26/2024 reviewed: A-V dual paced rhythm with some inhibition - METS <4. - On ASA and Eliquis, Continue ASA and hold Eliquis 5 days prior to procedure per PAT protocol 2) CAD - Hx of SD, hx of prior stents x6? - Symptomatic - Last ECHO: 01/22/24; EF 65%, - Follows cardiology, Dr. Valentin ([place]) - Managed with ASA, Eliquis, Metoprolol, isosorbide, lisinopril, NTG SL prn CP using several times a week for the last 3 months (reports has been using less this past week ) - Last used NTG SL: 3 days ago - EKG and labs per PAT protocol - Continue ASA and hold Eliquis 5 days prior to procedure per PAT protocol 3) Atrial Fibrillation - Asymptomatic - Last ECHO: 01/22/24; EF 65%, - Follows cardiology, Dr. Valentin ([place]) - Managed with ASA, Eliquis, Metoprolol, isosorbide, lisinopril - EKG and labs per PAT protocol - Continue ASA and hold Eliquis 5 days prior to procedure per PAT protocol 4) Pacemaker - Last Device Check 10/28/23 (scanned into Media and hardcopy of report on PAT chart) - Last ECHO: 01/22/24; EF 65%, - Follows cardiologyDr. Valentin ([place]) - Managed with ASA, Eliquis, Metoprolol, isosorbide, lisinopril - EKG and labs per PAT protocol Continue ASA and hold Eliquis 5 days prior to procedure per PAT protocol 5) AAA - S/p surgical repair 01/31/16 - Asymptomatic - Last ECHO: 01/22/24; EF 65%, - Follows cardiologyDr. Valentin ([place]). Has seen Vascular in the distant past - EKG and labs per PAT protocol 6) HTN BP Readings from Last 3 Encounters: 01/26/24 (!) 140/81 01/19/24 (!) 145/88 - Mildly elevated, asymptomatic - Follows CardiologyDr. Valentin for management - Managed with metoprolol, amlodipine, isosorbide, lisinopril 7) COPD - Stable, denies exacerbations - Follows pulmonology, Dr. Madison ([place]) for management - Managed with Symbicort, roflumilast, albuterol MDI prn, Spiriva, DuoNeb prn, - Continue inhalers DOS and as directed - O2 therapy: 3L NC - Last used rescue inhaler 1 day ago - Lungs Diminished throughout, no rales, rhonchi or wheezing appreciated. NAD noted, Sp)2 100% on 3L NC - + BURGOS at baseline, denies new or worsening symptoms 8) HPL - Managed with atorvastatin 9) GERD - Symptoms controlled - Managed with protonix 10) Anemia - Source: unspecified - Last CBC 12/15/23: H/H 12.2/36.7 - Hx of Transfusion: unknown - Managed with Ferrous sulfate, Folic Acid 11) Smoker - Pack year hx > 20; EKG and CBC per PAT protocol - Cessation is encouraged - Patient counseled to avoid smoking/nicotine or THC products 24 hours prior to scheduled procedure Visit Type: Pre-Admission Testing Visit Labs Ordered: YES - PER PAT PROTOCOL Sleep Referral Ordered: YES - POSITIVE SCREEN PER SLEEP REFERRAL PROTOCOL Total time spent (which include face to face and non face to face encounters) : 50 minutes Toxic drug monitoring/narrow therapeutic index drug monitoring : # Drug name : ASA, Eliquis, Lisinopril, imdur, NTG SL # Route administered : PO # Method of monitoring : BMP, CBC PAT Protocol referenced includes: 1. Anesthesia Lab Protocol Orders 2. Perioperative Cardiovascular Risk Assessment 3. Anesthesia Assessment 4. Pain Assessment and Acute Pain Service Consult (if appropriate) 5. Medical Clearance/Consult from Internal Medicine ([facility]) 6. Shower/Wash Order (for designated surgeries) 7. ROMEO Screen and Sleep Clinic Referral (if appropriate) History Of Present Illness: 79 y.o. male who we are asked to see/evaluate by Dr. Vargas for pre-operative evaluation prior to ? Case: [id number] Date/Time: 02/02/24 0700 Procedures: CORONARY ARTERY BYPASS GRAFT, MODIFIED MAZE PROCEDURE FOR ATRIAL ABLATION WITH RADIOFREQUENCY ABLATION BY ATRICURE USING THE [place]PASS CLAMP AND THE LEFT ATRIAL APPENDAGE EXCLUSION WITH THE ATRICLIP,TRANSESOPHAGEAL ECHOCARDIOGRAM (Chest) [54818 CPT(R)] - 7:00 am, 5 hours Operative tissue ablation and reconstruction of atria (Maze procedure) [26354 CPT(R)] OPERATIVE TISSUE ABLATION AND RECONSTRUCTION OF ATRIA LIMITED PERFORMED WITH OTHER PROCEDURES [55342 CPT(R)] Echocardiography transesophageal real-time [64216 CPT(R)] Diagnosis: 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) [I25.110] Location: [facility] OR Operating Room Surgeons: Amado Vargas MD From last office visit with Dr. Vargas on 01/19/24: "Darin Breaux is a 79 y.o. male referred by for CABG. Per note, pt has history of CAD, SD, PCI, cardiac dysrhythmia, atrial fibrillation, s/p pacemaker placement, carotid artery stenosis, hyperlipidemia, HTN. Pt saw Cardiology in November 2023 and reported left sided chest pain that radiates to left arm and SOB with exertion. Stress test was ordered and com pleted on 01/05/24 which demonstrated small reversible perfusion defect of the apex suggestive of mild ischemia with an LVEF of 43%. Pt underwent heart catheterization on 01/12/24 which demonstrated multivessel CAD. Pt is currently taking Eliquis. Pt is a current smoker. Pt is here now for an evaluation. " Patient reports exertional chest pain/shortness of breath. BURGOS is baseline for patient. Reports hasbeen experiencing increased CP for the last 3 months. Has been using his NTG SL several times a week for the last 3 months. Reports frequent dizziness and lightheadedness, denies syncope. Primarily when he stands. Denies fever, chills, weakness or fatigue. Patient denies any recent illness, infections, or wounds. Patient denies abdominal pain, nausea, vomiting, diarrhea, or constipation. Patient denies hx of CHF, TIA/CVA, diabetes, asthma, ROMEO, DVT/PE. Past Medical History: Past Medical History: No date: AAA (abdominal aortic aneurysm) ([facility]) No date: Arthritis No date: Atrial fibrillation ([facility]) No date: Carotid artery stenosis No date: COPD (chronic obstructive pulmonary disease) ([facility]) No date: Coronary artery disease No date: GERD (gastroesophageal reflux disease) No date: Hyperlipidemia No date: Hypertension No date: Myocardial infarction ([facility]) No date: Presence of permanent cardiac pacemaker Past Surgical History: Past Surgical History: No date: ABDOMINAL AORTIC ANEURYSM REPAIR No date: BACK SURGERY Comment: lumbar discectomy No date: CARPAL TUNNEL RELEASE; Right No date: CATARACT EXTRACTION; Bilateral No date: COLONOSCOPY 1997: CORONARY ANGIOPLASTY WITH STENT PLACEMENT No date: CORONARY STENT PLACEMENT No date: HERNIA REPAIR; Bilateral Comment: inguinal No date: TRANSURETHRAL RESECTION OF PROSTATE Medications Prior to Admission: Current Outpatient Medications on File Prior to Visit Medication Sig Dispense Refill albuterol 108 (90 Base) MCG/ACT inhaler Inhale 2 puffs every 6 hours as needed. amLODIPine (Norvasc) 5 MG tablet Take 5 mg by mouth daily. aspirin 81 MG EC tablet Take 81 mg by mouth daily. atorvastatin (Lipitor) 10 MG tablet Take 10 mg by mouth daily. benzonatate (Tessalon) 200 MG capsule Take 200 mg by mouth 3 times daily as needed. cholecalciferol (Vitamin D-3) 50 MCG (2000 UT) capsule Take 2,000 Units by mouth daily. dilTIAZem CD (Cardizem CD) 120 MG 24 hr capsule Take 120 mg by mouth daily. Eliquis 5 MG tablet Take 5 mg by mouth 2 times daily. Ferrous Sulfate (IRON PO) Take 1 tablet by mouth daily. fluticasone (Flonase) 50 MCG/ACT nasal spray Administer 2 sprays into each nostril daily. FOLIC ACID PO Take 1 tablet by mouth daily. ipratropium-albuterol (Duo-Neb) 0.5-2.5 mg/3 mL nebulizer solution Take 3 mL by nebulization every 6 hours as needed. isosorbide mononitrate ER (Imdur) 30 MG 24 hr tablet Take 30 mg by mouth daily. Do not crush or chew. lisinopril 10 MG tablet Take by mouth daily. metoprolol tartrate (Lopressor) 100 MG tablet Take 100 mg by mouth 2 times daily. nitroglycerin (Nitrostat) 0.[address] 0.4 mg under the tongue every 5 minutes as needed. pantoprazole (ProtoNix) 20 MG EC tablet Take 20 mg by mouth every morning (before breakfast). Spiriva Respimat 2.5 MCG/ACT inhaler 2 puffs daily. Symbicort 160-4.5 MCG/ACT inhaler Inhale 2 puffs in the morning and 2 puffs in the evening. chlorhexidine (Peridex) 0.12 % solution Use 15 mL in the mouth or throat Once for 1 dose. Swish for30 seconds and spit out the night before surgery. Do not swallow. 15 mL 0 mupirocin (Bactroban) 2 % ointment Apply liberal amount per nostril the night before surgery and then again the morning of surgery 1 g 0 No current facility-administered medications on file prior to visit. CHRONIC NARCOTIC USE: No Do you have a history of chronic opioid use? No Allergies: Penicillins, Plavix [clopidogrel], and Tamsulosin If patient has opioid allergy, is it okay to take Acetaminophen: Yes Social History: TOBACCO: reports that he has been smoking cigarettes. He started smoking about 68 years ago. He hasa 133.3 pack-year smoking history. He has never used smokeless tobacco. ETOH: reports that he does not currently use alcohol. Social History Substance and Sexual Activity Drug Use Never Family History: No family history on file. REVIEW OF SYSTEMS: Review of Systems Constitutional: Negative. HENT: Negative. Eyes: Positive for visual disturbance. Respiratory: Positive for cough and shortness of breath (+ BURGOS, +3l NC O2). Cardiovascular: Positive for chest pain (Intermittent with radiation to his LEFT arm). Gastrointestinal: Negative. Endocrine: Negative. Genitourinary: Negative. Musculoskeletal: Negative. Skin: Negative. Allergic/Immunologic: Negative. Neurological: Positive for dizziness and light-headedness. With standing Hematological: Bruises/bleeds easily (On Eliquis). Psychiatric/Behavioral: Negative. Physical Exam: Physical Exam Vitals reviewed. Constitutional: Appearance: Normal appearance. HENT: Head: Normocephalic. Mouth/Throat: Mouth: Mucous membranes are moist. Pharynx: Oropharynx is clear. Eyes: Conjunctiva/sclera: Conjunctivae normal. Cardiovascular: Rate and Rhythm: Normal rate and regular rhythm. Pulses: Normal pulses. Heart sounds: Normal heart sounds. Comments: No Carotid Bruits appreciated Pulmonary: Effort: Pulmonary effort is normal. Breath sounds: Normal breath sounds. Abdominal: General: Abdomen is flat. Bowel sounds are normal. Palpations: Abdomen is soft. Musculoskeletal: General: Normal range of motion. Cervical back: Normal range of motion. Skin: General: Skin is warm and dry. Capillary Refill: Capillary refill takes less than 2 seconds. Findings: Bruising (Diffuse ecchymosis BL UE) present. Neurological: General: No focal deficit present. Mental Status: He is alert and oriented to person, place, and time. Psychiatric: Mood and Affect: Mood normal. Behavior: Behavior normal. Vitals: Vitals Value Taken Time BP 140/81 01/26/24 1339 Temp 36.2 C (97.1 F) 01/26/24 1339 Pulse 60 01/26/24 1339 Resp 20 01/26/24 1339 SpO2 100 % 01/26/24 1339 Labs: No results found for: "WBC", "HGB", "HCT", "MCV", "PLT" No results found for: "NA", "K", "CL", "CO2", "BUN", "CREATININE", "GLUCOSE", "CALCIUM", "PROT", "BILIRUBINFL", "ALKPHOS", "AST", "ALT", "EGFR", "GLOB" Luis's Simple Cardiac Risk Index: LUIS'S SIMPLE CARDIAC RISK SCORE: 2 Interpretation: 0 Points Class I 0.5% 1 Point Class II 1.3% 2 Points Class III 3.6% 3+ Points Class IV 9.1% PAT Pain Score: Postop Pain Management Plan (Pain consult ordered?): Pain consult not indicated at this time ? EKG: Yes, 01/26/2024 Encounter Date: 01/26/24 ECG 12 lead Result Value Heart Rate 60 QRSD Interval 145 QT Interval 492 QTC Interval 492 P [place] 0 QRS [place]rop -83 T Wave [place] 98 AK Interval 91 Impression A-V dual-paced rhythm with some inhibition ECHO and EF:Echo 01/22/24 Carotid US 01/22/24: METS: No, + BURGOS at baseline Electronically signed by: Maddie Vernon APRN - STRUCTURAL METAL FABRICATOR APPRENTICE Date: 01/26/2024 at 2:47 PM documented in this [facility]07-09-2024 [facility] 01-26-2024 [facility]07-09-2024 NoteAddended by: MARIELY VASQUEZ on: 01/26/2024 08:02 AM Modules accepted: [facility]07-08-2024 NoteAttempted to call for pre op teaching, patient was unavailable. Instructed family member Corey Moran to have patient return call to this office for pre op education, phone number provided.[facility]07-02-2024 History of Present illness Narrative* Amado Vargas MD - 01/19/2024 10:30 AM EDT Images from the original note were not included. [facility] SUR[facility] [address] [facility] [id number] Dept: [phone] Dept Loc: [phone] Visit type: New Reason for Visit: Unstable angina with severe three-vessel CAD referred for coronary bypass surgery Assessment and plan The patient is a 79-year-old gentleman with unstable angina and severe three- vessel CAD. I reviewedthe cardiac catheterization which reveals in-stent stenoses involving the dominant right coronary artery, and the LAD. Plan for bypass will include the LAD RCA PDA and obtuse marginals. Patient also has a history of pacemaker implantation and atrial fibrillation. I also recommend modified maze procedure for atrial fibrillation with radiofrequency ablation by AtriCure using the encompass clamp andthe left atrial appendage exclusion with the AtriClip. I reviewed the risk benefits alternatives ofcardiac surgery with the patient and would consider the surgery low risk. The patient had excellent questions which were all answered to his satisfaction. Patient will be scheduled for surgery next week pending insurance clearance and preoperative testing. History of Present Illness Darin Breaux is a 79 y.o. male referred by Dr. Valentin for CABG. Per note, pt has history of CAD, SD, PCI, cardiac dysrhythmia, atrial fibrillation, s/p pacemaker placement, carotid artery stenosis, hyperlipidemia, HTN. Pt saw Cardiology in November 2023 and reported left sided chest pain that radiates to left arm and SOB with exertion. Stress test was ordered and com pleted on 01/05/24 which demonstrated small reversible perfusion defect of the apex suggestive of mild ischemia with an LVEF of 43%. Pt underwent heart catheterization on 01/12/24 which demonstrated multivessel CAD. Pt is currently taking Eliquis. Pt is a current smoker. Pt is here now for an evaluation. Past Medical History Past Medical History: Diagnosis Date AAA (abdominal aortic aneurysm) (HCC) Atrial fibrillation (HCC) Carotid artery stenosis COPD (chronic obstructive pulmonary disease) (HCC) Coronary artery disease GERD (gastroesophageal reflux disease) Hyperlipidemia Hypertension Myocardial infarction (HCC) Presence of permanent cardiac pacemaker Past Surgical History Past Surgical History: Procedure Laterality Date ABDOMINAL AORTIC ANEURYSM REPAIR BACK SURGERY CARPAL TUNNEL RELEASE CATARACT EXTRACTION CORONARY ANGIOPLASTY WITH STENT PLACEMENT 1996 CORONARY STENT PLACEMENT HERNIA REPAIR Family History No family history on file. Social History Social History Tobacco Use Smoking status: Every Day Types: Cigarettes Allergies Allergies Allergen Reactions Penicillins Hives Plavix [Clopidogrel] Hives Tamsulosin Medications Current Outpatient Medications: albuterol 108 (90 Base) MCG/ACT inhaler, Inhale 2 puffs every 6 hours as needed., Disp: , Rfl: amLODIPine (Norvasc) 5 MG tablet, Take 5 mg by mouth daily., Disp: , Rfl: atorvastatin (Lipitor) 10 MG tablet, Take 10 mg by mouth daily., Disp: , Rfl: benzonatate (Tessalon) 200 MG capsule, Take 200 mg by mouth 3 times daily as needed., Disp: , Rfl: Eliquis 5 MG tablet, Take 5 mg by mouth 2 times daily., Disp: , Rfl: fluticasone (Flonase) 50 MCG/ACT nasal spray, Administer 2 sprays into each nostril daily., Disp: ,Rfl: ipratropium-albuterol (Duo-Neb) 0.5-2.5 mg/3 mL nebulizer solution, Take 3 mL by nebulization every6 hours as needed., Disp: , Rfl: metoprolol tartrate (Lopressor) 100 MG tablet, Take 100 mg by mouth 2 times daily., Disp: , Rfl: nitroglycerin (Nitrostat) 0.4 MG SL tablet, Place 0.4 mg under the tongue every 5 minutes as needed., Disp: , Rfl: pantoprazole (ProtoNix) 20 MG EC tablet, Take 20 mg by mouth every morning (before breakfast)., Disp: , Rfl: Symbicort 160-4.5 MCG/ACT inhaler, Inhale 2 puffs in the morning and 2 puffs in the evening., Disp:, Rfl: cholecalciferol (Vitamin D-3) 50 MCG (2000 UT) capsule, Take 2,000 Units by mouth daily., Disp: , Rfl: Review of Systems Review of Systems Constitutional: Positive for fatigue. HENT: Negative. Eyes: Negative. Respiratory: Positive for shortness of breath. Cardiovascular: Positive for chest pain. Gastrointestinal: Negative. Endocrine: Negative. Genitourinary: Negative. Musculoskeletal: Negative. Skin: Negative. Allergic/Immunologic: Negative. Neurological: Negative. Hematological: Negative. Psychiatric/Behavioral: Negative. Physical Exam Vitals: There were no vitals taken for this visit. Constitutional: General: Not in acute distress. Appearance: Normal appearance. Not toxic-appearing. Ear, nose, mouth: Bilateral external ear and nose normal. Nose: Nose normal. Mouth: Appearance normal, no bleeding, moist mucus membranes Eyes: General: No scleral icterus. No discharge from bilateral eyes Extraocular Movements: Extraocular movements intact. Pupils equal and reactive bilaterally Cardiovascular: Heart: Regular rhythm. Normal heart sounds. Vascular: No carotid bruit. Edema: edema in bilateral lower extremities Pulmonary: Effort: Pulmonary effort is normal. No respiratory distress. Breath sounds: Normal breath sounds. No wheezing. Chest wall: No tenderness. Abdominal: Appearance: Not distended Palpations: There is no abdominal tenderness, no guarding. Musculoskeletal: Bilateral upper and lower extremities: Normal range of motion, no deformity Head: Normocephalic and atraumatic. Neck: Normal range of motion and neck supple. No muscular tenderness. Lymphadenopathy: Cervical: No cervical adenopathy. Skin: General: Skin is warm and dry. Coloration: Skin is not jaundiced. Neurological: General: No focal deficit present. Cranial Nerves: No obvious cranial nerve deficit. Psychiatric: Mood and Affect: Mood normal. Thought Content: Thought content normal. Patient has good judgement and insight Mental Status: Alert and oriented to place, person, and time. Labs No results found for: "WBC", "HGB", "PLT", "NA", "K", "CREATININE" Imaging Heart Catheterization 01/12/24 Patient Care Team: PCP: Estephania Alvarado MD Cardiology: Nimesh Valentin MD Disclaimer INFORMED CONSENT:The nature and purpose of the proposed treatment or procedure have been discussed.The risks and benefits of the proposed treatment or procedures have been reviewed. Alternatives have been reviewed in addition to the risks and benefits of not receiving treatments or undergoing procedures. Pursuant to this discussion, the patient agrees to undergo the proposed treatment or procedure. Captured images seen in this note from are not a substitute for a comprehensive interpretation of the entire data set as reflected by the interpreting physician with regard to radiology, echocardiography, and other diagnostic images. This note may have been dictated using uma information technology Practice Edition 2.6 and/or [employer] Voice Recognition Feature. The document was proofread, however unrecognized voice recognition grain manager errors may be present. documented in this [place] [id number] NoteDr. Homero called referral into office. Patient has CAD, COPD, EF 45-50%, 90% IS RCA, 80% LAD. [facility]05-29-2024 Physician Emergency department Note* Dylon Mccain MD - 12/16/2023 12:38 AM EDT Emergency Department Report [facility] EM[facility]GENCY [facility] Service Date:.12/16/23 PCP: Estephania Alvarado Chief Complaint: Chief Complaint Patient presents with Chest Pain Hypertension Pt arrives with chest pain that has been ongoing for a while and hypertension. HPI Darin Breaux is a 78 y.o. male presents to the ED today due to chest pain high blood pressure. Patient states symptoms been going on while in his intermittent but he is concerned that he had more frequent episodes. There is no report of bowel or bladder dysfunction no reported dizziness. No reported shortness of breath no reported cough. Review of Systems: Review of Systems All other systems reviewed and are negative. Past Medical History: Past Medical History: Diagnosis Date Arrhythmia Arthritis CAD (coronary artery disease) Cardiac angina COPD (chronic obstructive pulmonary disease) Emphysema lung Hyperlipidemia Hypertension Lung disease SD (myocardial infarction) ROMEO (obstructive sleep apnea) Pacemaker Renal disease Seizure 06/06/2020 Witnessed Past Surgical History: Past Surgical History: Procedure Laterality Date AAA REPAIR 01/31/2016 REMOVAL CATARACT (PEM) Bilateral 2012 PACEMAKER PLACEMENT 2002 battery change 2012 CORONARY STENT PLACEMENT 1996 BACK SURGERY N/A [id number] HEART CATHETERIZATION RELEASE CARPAL TUNNEL Right Allergies: Allergies Allergen Reactions Penicillins Hives and Swelling Tamsulosin Other reaction(s): Other (See Comments) Makes him "blackout" Clopidogrel Itching Medications: Patient's Medications New Prescriptions [...] 3 mL by nebulization 4 times daily. LIDOCAINE 5 % PATCH PATCH Place 1 patch on skin every 24 hours. Max of 12 hours of application thenremove. LISINOPRIL 10 MG TABLET Take 1 tablet [...] call 911 OXYGEN GAS Patient discharged from [facility] on 4 Liters of Oxygen via nc due to desaturation.Please provide oxygen for patient due to [facility] ED discharge instructions. This order certifies that this patient is under my care and that I, or a Nurse Practitioner or Physician's Food Service Supervisor had a Xcad-my-Ptev Encounter with them. Based upon those findings, [...] Not on file Tobacco Use Smoking status: Every Day Current packs/day: 0.00 Types: Cigarettes Last attempt to quit: 02/25/2021 Years since quittin.8 Smokeless tobacco: Former Quit date: 02/25/2021 Vaping Use Vaping status: Never Used Substance and Sexual Activity Alcohol [...] Not on file Physical Exam: Physical Exam Constitutional: Appearance: Normal appearance. He is well-developed. HENT: Head: Normocephalic and atraumatic. Right Ear: Tympanic membrane and external ear normal. Left Ear: Tympanic membrane and external ear normal. Nose: Nose normal. Mouth/Throat: Mouth: Mucous membranes are moist. Pharynx: Oropharynx is clear. Eyes: Pupils: Pupils are equal, round, and reactive to light. Cardiovascular: Rate and Rhythm: Normal rate and regular rhythm. Heart sounds: Normal heart sounds. Pulmonary: Effort: Pulmonary effort is normal. Breath sounds: Normal breath sounds. Abdominal: General: Bowel sounds are normal. There is no distension. Palpations: Abdomen is soft. Tenderness: There is no abdominal tenderness. There is no guarding or rebound. Musculoskeletal: General: Normal range of motion. Cervical back: Normal range of motion and neck supple. Skin: General: Skin is warm and dry. Capillary Refill: Capillary refill takes less than 2 seconds. Findings: No erythema. Neurological: General: No focal deficit present. Mental Status: He is alert and oriented to person, place, and time. Mental status is at baseline. Cranial Nerves: No cranial nerve deficit. Sensory: No sensory deficit. Motor: No weakness. Coordination: Coordination normal. Deep Tendon Reflexes: Reflexes normal. Psychiatric: Mood and Affect: Mood normal. Behavior: Behavior normal. Vital Signs During ED Visit Patient Vitals for the past 24 hrs: BP Temp Temp src Pulse Resp SpO2 Height 12/16/23 0011 173/89 -- -- 64 16 96 % -- 12/15/23 2310 (!) 168/112 -- -- 117 22 97 % -- 12/15/23 2220 143/84 -- -- 62 18 95 % -- 12/15/23 2139 165/82 -- -- 60 14 94 % -- 12/15/232048 -- -- -- -- -- -- 1.88 m (6' 2") 12/15/232047 161/90 98.2 F (36.8 C) Temporal 60 20 92 % -- Orders/Results: Orders Placed This Encounter [facility] 1 - NASOPHARYNGEAL XR CHEST PA AND LATERAL 2 VIEWS Troponin I, High sensitivity COMPREHENSIVE METABOLIC PANEL CBC, EDIF, PLATELET MAGNESIUM INFLUENZA A AND B, PCR Troponin I, High sensitivity ECG Results for orders placed or performed during the hospital encounter of 12/15/23 [facility]AVIR[facility] LAB 1 - NASOPHARYNGEAL Specimen: NASOPHARYNGEAL; Fluid/Swab Result Value Ref Range SARS COV 2 RNA, QL REAL TIME RT PCR NOT DETECTED NOT DETECTED NARRATIVE -1 This test was performed using isothermal CHADD and has been approved as Emergency Use Authorization (EUA) for the qualitative detection [id number] nucleic acid. TROPONIN I, HIGH SENSITIVITY Result Value Ref Range TROPONIN I, HIGH SENSITIVITY 6 0 - 20 pg/mL COMPREHENSIVE METABOLIC PANEL Result Value Ref Range Glucose 101 (H) 70 - 100 MG/DL BUN 27 (H) 7 - 20 MG/DL CREATININE SERUM 1.39 (H) 0.70 - 1.20 MG/DL SODIUM 139 137 - 145 MMOL/L POTASSIUM 4.3 3.5 - 5.1 MMOL/L CHLORIDE 105 98 - 107 MMOL/L CALCIUM 9.5 8.4 - 10.2 MG/DL PROTEIN, TOTAL 6.5 6.3 - 8.2 GM/DL Albumin 4.0 3.5 - 5.0 G/dl BILIRUBIN, TOTAL 0.5 0.2 - 1.3 MG/DL AST 17 17 - 59 IU/L ALKALINE PHOSPHATASE 71 38 - 126 IU/L CARBON DIOXIDE (CO2) 30 22 - 30 MMOL/L A/G Ratio 1.6 RATIO ALT 13 <50 IU/L ESTIMATED GFR, NON AMER 53 ml/min/1.73sq.m ESTIMATED GFR, 64 ml/min/1.73sq.m GFR COMMENT Average GFR for 70+ years old = 75. CBC, EDIF, PLATELET Result Value Ref Range WBC (WHITE BLOOD COUNT) 6.1 3.6 - 11.0 10*3/uL RBC 3.97 (L) 4.0 - 6.1 10*6/uL HEMOGLOBIN (HGB) 12.2 (L) 14.0 - 18.0 G/DL HEMATOCRIT (HCT) 36.7 (L) 42.0 - 52.0 % MEAN CELL VOLUME 92.3 80.0 - 100.0 FL Mean Cell HGB 30.6 26.0 - 35.0 PG MEAN CELL HGB CONCENTRATION 33.2 27.0 - 37.0 G/DL RBC DISTRIBUTION 16.5 (H) 11.5 - 14.5 % PLATELET COUNT 223 130 - 400 10*3/uL MEAN PLATELET VOLUME 8.8 7.4 - 11.0 FL DIFFERENTIAL TYPE AUTO DIFF % NEUTROPHILS 64.1 37.0 - 75.0 % LYMPHOCYTE 22.8 20.0 - 55.0 % MONOCYTE % 8.2 0.0 - 10.0 % EOSINOPHIL % 2.9 0.0 - 11.0 % BASOPHIL % 2.0 0.0 - 2.0 % Absolute Neutrophil Count 3.9 1.4 - 6.5 10*3/uL LYMPHOCYTES, ABSOLUTE 1.4 1.2 - 3.4 10*3/uL MONOCYTES, ABSOLUTE 0.5 0.0 - 0.7 10*3/uL ABSOLUTE EOSINOPHIL COUNT 0.2 0.0 - 0.7 10*3/uL ABSOLUTE BASOPHIL COUNT 0.1 0.0 - 0.2 10*3/uL MAGNESIUM Result Value Ref Range MAGNESIUM 2.1 1.6 - 2.3 MG/DL INFLUENZA A AND B, PCR Result Value Ref Range INFLUENZA A NEGATIVE NEGATIVE INFLUENZA B NEGATIVE NEGATIVE TROPONIN I, HIGH SENSITIVITY Result Value Ref Range TROPONIN I, HIGH SENSITIVITY 7 0 - 20 pg/mL EKG RESULTS EKG performed interpreted myself as paced rhythm, otherwise nonacute EKG I ordered, interpreted and acted upon this electrocardiogram during the patients ED visit. Dylon Mccain MD Radiographic Imaging XR CHEST PA AND LATERAL 2 VIEWS Final Result IMPRESSION: Pulmonary hyperinflation. No acute pathology seen. Moderate Sedation Procedure: No Procedures: Procedures ED Summary: Patient workup unremarkable. Patient has been chest pain-free while in the emerged department. Patient will be discharged home in improved condition. Patient has been offered admission for observation but he states this is ongoing problem that he is scheduled to follow-up. Patient has been advised to return for changes symptoms, worsening symptoms, any of the issues that he has. Clinical Impression: 1. Chest pain, unspecified type No follow-ups on file. New Prescriptions No medications on file Discontinued Medications No medications on file An After Visit Summary was printed and given to the patient with above information. . . Dylon Mccain MD 12/16/23 0042 [facility]05-29-2024 Emergency department Note* Dylon Mccain MD - 12/16/2023 12:38 AM EDT Emergency Department Report [facility] Service Date:.12/16/23 PCP: Estephania Alvarado Chief Complaint: Chief Complaint Patient presents with Chest Pain Hypertension Pt arrives with chest pain that has been ongoing for a while and hypertension. HPI Darin Breaux is a 78 y.o. male presents to the ED today due to chest pain high blood pressure. Patient states symptoms been going on while in his intermittent but he is concerned that he had more frequent episodes. There is no report of bowel or bladder dysfunction no reported dizziness. No reported shortness of breath no reported cough. Review of Systems: Review of Systems All other systems reviewed and are negative. Past Medical History: Past Medical History: Diagnosis Date Arrhythmia Arthritis CAD (coronary artery disease) Cardiac angina COPD (chronic obstructive pulmonary disease) Emphysema lung Hyperlipidemia Hypertension Lung disease SD (myocardial infarction) ROMEO (obstructive sleep apnea) Pacemaker Renal disease Seizure 06/06/2020 Witnessed Past Surgical History: Past Surgical History: Procedure Laterality Date AAA REPAIR 01/31/2016 REMOVAL CATARACT (PEM) Bilateral 2012 PACEMAKER PLACEMENT 2002 battery change 2012 CORONARY STENT PLACEMENT 1996 BACK SURGERY N/A [id number] HEART CATHETERIZATION RELEASE CARPAL TUNNEL Right Allergies: Allergies Allergen Reactions Penicillins Hives and Swelling Tamsulosin Other reaction(s): Other (See Comments) Makes him "blackout" Clopidogrel Itching Medications: Patient's Medications New Prescriptions [...] 3 mL by nebulization 4 times daily. LIDOCAINE 5 % PATCH PATCH Place 1 patch on skin every 24 hours. Max of 12 hours of application thenremove. LISINOPRIL 10 MG TABLET Take 1 tablet [...] call 911 OXYGEN GAS Patient discharged from [facility] on 4 Liters of Oxygen via nc due to desaturation.Please provide oxygen for patient due to [facility] ED discharge instructions. This order certifies that this patient is under my care and that I, or a Nurse Practitioner or Physician's Food Service Supervisor had a Sqzi-vh-Voox Encounter with them. Based upon those findings, [...] Not on file Tobacco Use Smoking status: Every Day Current packs/day: 0.00 Types: Cigarettes Last attempt to quit: 02/25/2021 Years since quittin.8 Smokeless tobacco: Former Quit date: 02/25/2021 Vaping Use Vaping status: Never Used Substance and Sexual Activity Alcohol [...] Not on file Physical Exam: Physical Exam Constitutional: Appearance: Normal appearance. He is well-developed. HENT: Head: Normocephalic and atraumatic. Right Ear: Tympanic membrane and external ear normal. Left Ear: Tympanic membrane and external ear normal. Nose: Nose normal. Mouth/Throat: Mouth: Mucous membranes are moist. Pharynx: Oropharynx is clear. Eyes: Pupils: Pupils are equal, round, and reactive to light. Cardiovascular: Rate and Rhythm: Normal rate and regular rhythm. Heart sounds: Normal heart sounds. Pulmonary: Effort: Pulmonary effort is normal. Breath sounds: Normal breath sounds. Abdominal: General: Bowel sounds are normal. There is no distension. Palpations: Abdomen is soft. Tenderness: There is no abdominal tenderness. There is no guarding or rebound. Musculoskeletal: General: Normal range of motion. Cervical back: Normal range of motion and neck supple. Skin: General: Skin is warm and dry. Capillary Refill: Capillary refill takes less than 2 seconds. Findings: No erythema. Neurological: General: No focal deficit present. Mental Status: He is alert and oriented to person, place, and time. Mental status is at baseline. Cranial Nerves: No cranial nerve deficit. Sensory: No sensory deficit. Motor: No weakness. Coordination: Coordination normal. Deep Tendon Reflexes: Reflexes normal. Psychiatric: Mood and Affect: Mood normal. Behavior: Behavior normal. Vital Signs During ED Visit Patient Vitals for the past 24 hrs: BP Temp Temp src Pulse Resp SpO2 Height 12/16/23 0011 173/89 -- -- 64 16 96 % -- 12/15/23 2310 (!) 168/112 -- -- 117 22 97 % -- 12/15/23 2220 143/84 -- -- 62 18 95 % -- 12/15/23 2139 165/82 -- -- 60 14 94 % -- 12/15/232048 -- -- -- -- -- -- 1.88 m (6' 2") 12/15/232047 161/90 98.2 F (36.8 C) Temporal 60 20 92 % -- Orders/Results: Orders Placed This Encounter NOVEL CORONAVIRUS LAB 1 - NASOPHARYNGEAL XR CHEST PA AND LATERAL 2 VIEWS Troponin I, High sensitivity COMPREHENSIVE METABOLIC PANEL CBC, EDIF, PLATELET MAGNESIUM INFLUENZA A AND B, PCR Troponin I, High sensitivity ECG Results for orders placed or performed during the hospital encounter of 12/15/23 NOVEL CORONAVIRUS LAB 1 - NASOPHARYNGEAL Specimen: NASOPHARYNGEAL; Fluid/Swab Result Value Ref Range SARS COV 2 RNA, QL REAL TIME RT PCR NOT DETECTED NOT DETECTED NARRATIVE -1 This test was performed using isothermal CHADD and has been approved as Emergency Use Authorization (EUA) for the qualitative detection [id number] nucleic acid. TROPONIN I, HIGH SENSITIVITY Result Value Ref Range TROPONIN I, HIGH SENSITIVITY 6 0 - 20 pg/mL COMPREHENSIVE METABOLIC PANEL Result Value Ref Range Glucose 101 (H) 70 - 100 MG/DL BUN 27 (H) 7 - 20 MG/DL CREATININE SERUM 1.39 (H) 0.70 - 1.20 MG/DL SODIUM 139 137 - 145 MMOL/L POTASSIUM 4.3 3.5 - 5.1 MMOL/L CHLORIDE 105 98 - 107 MMOL/L CALCIUM 9.5 8.4 - 10.2 MG/DL PROTEIN, TOTAL 6.5 6.3 - 8.2 GM/DL Albumin 4.0 3.5 - 5.0 G/dl BILIRUBIN, TOTAL 0.5 0.2 - 1.3 MG/DL AST 17 17 - 59 IU/L ALKALINE PHOSPHATASE 71 38 - 126 IU/L CARBON DIOXIDE (CO2) 30 22 - 30 MMOL/L A/G Ratio 1.6 RATIO ALT 13 <50 IU/L ESTIMATED GFR, NON AMER 53 ml/min/1.73sq.m ESTIMATED GFR, 64 ml/min/1.73sq.m GFR COMMENT Average GFR for 70+ years old = 75. CBC, EDIF, PLATELET Result Value Ref Range WBC (WHITE BLOOD COUNT) 6.1 3.6 - 11.0 10*3/uL RBC 3.97 (L) 4.0 - 6.1 10*6/uL HEMOGLOBIN (HGB) 12.2 (L) 14.0 - 18.0 G/DL HEMATOCRIT (HCT) 36.7 (L) 42.0 - 52.0 % MEAN CELL VOLUME 92.3 80.0 - 100.0 FL Mean Cell HGB 30.6 26.0 - 35.0 PG MEAN CELL HGB CONCENTRATION 33.2 27.0 - 37.0 G/DL RBC DISTRIBUTION 16.5 (H) 11.5 - 14.5 % PLATELET COUNT 223 130 - 400 10*3/uL MEAN PLATELET VOLUME 8.8 7.4 - 11.0 FL DIFFERENTIAL TYPE AUTO DIFF % NEUTROPHILS 64.1 37.0 - 75.0 % LYMPHOCYTE 22.8 20.0 - 55.0 % MONOCYTE % 8.2 0.0 - 10.0 % EOSINOPHIL % 2.9 0.0 - 11.0 % BASOPHIL % 2.0 0.0 - 2.0 % Absolute Neutrophil Count 3.9 1.4 - 6.5 10*3/uL LYMPHOCYTES, ABSOLUTE 1.4 1.2 - 3.4 10*3/uL MONOCYTES, ABSOLUTE 0.5 0.0 - 0.7 10*3/uL ABSOLUTE EOSINOPHIL COUNT 0.2 0.0 - 0.7 10*3/uL ABSOLUTE BASOPHIL COUNT 0.1 0.0 - 0.2 10*3/uL MAGNESIUM Result Value Ref Range MAGNESIUM 2.1 1.6 - 2.3 MG/DL INFLUENZA A AND B, PCR Result Value Ref Range INFLUENZA A NEGATIVE NEGATIVE INFLUENZA B NEGATIVE NEGATIVE TROPONIN I, HIGH SENSITIVITY Result Value Ref Range TROPONIN I, HIGH SENSITIVITY 7 0 - 20 pg/mL EKG RESULTS EKG performed interpreted myself as paced rhythm, otherwise nonacute EKG I ordered, interpreted and acted upon this electrocardiogram during the patients ED visit. Dylon Mccain MD Radiographic Imaging XR CHEST PA AND LATERAL 2 VIEWS Final Result IMPRESSION: Pulmonary hyperinflation. No acute pathology seen. Moderate Sedation Procedure: No Procedures: Procedures ED Summary: Patient workup unremarkable. Patient has been chest pain-free while in the emerged department. Patient will be discharged home in improved condition. Patient has been offered admission for observation but he states this is ongoing problem that he is scheduled to follow-up. Patient has been advised to return for changes symptoms, worsening symptoms, any of the issues that he has. Clinical Impression: 1. Chest pain, unspecified type No follow-ups on file. New Prescriptions No medications on file Discontinued Medications No medications on file An After Visit Summary was printed and given to the patient with above information. . . Dylon Mccain MD 12/16/23 0042 * Evelina Gill RN - 12/15/2023 10:55 PM EDT Pt visitor informed nurse that pt experiencing pain at this time. Pt was showing PVC's on the monitor with increased Heart rate and Blood pressure. * NADEEM Tobar - 12/15/2023 10:[address] Mccain at bedside [facility] [place]* Evelina Gill RN - 12/15/2023 10:55 PM EDT Pt visitor informed nurse that pt experiencing pain at this time. Pt was showing PVC's on the monitor with increased Heart rate and Blood pressure. [facility]05-28-2024 Emergency department Note* NADEEM Tobar - 12/15/2023 10:[address] Mccain at bedside [facility]04-08-2024 Emergency department Note* Dylon Mccain MD - 10/26/2023 12:21 PM EDT Emergency Department Report [facility] EM[facility] Service Date:.10/26/23 PCP: Estephania Alvarado Chief Complaint: Chief Complaint Patient presents with Shortness of Breath To ED with c/o SOB that started yesterday. Daughter in law states states he was walking without oxygen today and started right sided shingles started today. Patient arrives via EMS from urgent care due to hypotension. HPI Darin Breaux is a 78 y.o. male presents to the ED today due to shortness of breath. Patient states these symptoms are been ongoing. They are concerned about the rash in his abdomen. He states his symptoms started yesterday. He had some pain in a noticed rash is morning. Patient denies prior history of similar. Patient states his breathing is at his baseline. There is no reported chest pain. Noreported cough. Review of Systems: Review of Systems All other systems reviewed and are negative. Past Medical History: Past Medical History: Diagnosis Date Arrhythmia Arthritis CAD (coronary artery disease) Cardiac angina COPD (chronic obstructive pulmonary disease) Emphysema lung Hyperlipidemia Hypertension Lung disease SD (myocardial infarction) ROMEO (obstructive sleep apnea) Pacemaker Renal disease Seizure 06/06/2020 Witnessed Past Surgical History: Past Surgical History: Procedure Laterality Date AAA REPAIR 01/31/2016 REMOVAL CATARACT (PEM) Bilateral 2013 PACEMAKER PLACEMENT 2002 battery change 2012 CORONARY STENT PLACEMENT 1996 BACK SURGERY N/A [id number] HEART CATHETERIZATION RELEASE CARPAL TUNNEL Right Allergies: Allergies Allergen Reactions Penicillins Hives and Swelling Tamsulosin Other reaction(s): Other (See Comments) Makes him "blackout" Clopidogrel Itching Medications: Discharge Medication List as of 10/26/2023 11:54 AM START taking these medications Details lidocaine 5 % Patch patch Place 1 patch on skin every 24 hours. Max of 12 hours of application thenremove. Normal Disp-12 patch, R-0 Valacyclovir 1 g tablet Take 1 tablet by mouth 3 times daily for 7 days. Normal Disp-21 tablet, R-0 CONTINUE these medications which have NOT CHANGED Details albuterol (2.5 MG/3ML) 0.083% inhalation solution inhale contents of 1 vial ( 3 milliliters ) in nebulizer by mouth and INTO THE LUNGS every 6 hours if needed Normal Disp-300 mL, R-3 albuterol 108 (90 Base) MCG/ACT Aero Soln inhaler Inhale 1-2 puffs every 6 hours as needed for Shortness of Breath or Wheezing. Normal Disp-1 Inhaler, R-2 Aspirin (ECOTRIN LOW STRENGTH) [address] tablet Take 1 tablet by mouth daily. Normal Disp-90 tablet, R-3 atorvastatin 10 MG tablet Take 1 tablet by mouth daily. Normal Disp-90 tablet, R-1 budesonide-formoterol (Symbicort) 160-4.5 mcg/puff Aerosol inhaler Inhale 2 puffs every 12 hours. Normal Disp-10.2 g, R-3 !! DISABILITY PLACARD Disability placard end date 08/29/2020 Print Disp-1 Each, R-0 !! DISABILITY PLACARD Disability placard end date 09/19/2025 Print Disp-1 Each, R-0 fluticasone 50 MCG/ACT Suspension nasal spray 2 sprays by Nasal route daily. Normal Disp-9.9 mL, R-0 folic acid 1 MG tablet Take 1 tablet by mouth daily. Normal Disp-90 tablet, R-1 ipratropium-albuterol 0.5-2.5 (3) MG/3ML nebulizer solution Take 3 mL by nebulization 4 times daily. Normal Disp-30 Each,R-0 Lisinopril 10 MG tablet Take 1 tablet by mouth daily. Historical Med metoprolol 25 MG tab regular release Take 1 tablet by mouth 2 times daily. Normal Disp-180 tablet, R-3 midodrine 5 MG tablet Take 1 tablet by mouth 3 times daily (space doses 6 hours apart). Normal Disp-90 tablet, R-3 Misc. Devices Misc by Unknown route. APAP 5-20 cm H2O set up 04/19/21 [facility] Historical Med nitroGLYCERIN 0.[address] 1 tablet under tongue every 5 minutes as needed for Chest pain. max = 3 doses. If CP persists after 3rd dose, call 911 Normal Disp-25 tablet, R-0 oxygen gas Patient discharged from [facility] on 4 Liters of Oxygen via nc due to desaturation.Please provide oxygen for patient due to [facility] ED discharge instructions. This order certifies that this patient is under my care and that I, or a Nurse Practition er or Physician's Food Service Supervisor had a [id number] Encounter with them. Based upon those findings, the equipment/supplies listed above are medically necessary. Print Disp-1 Device, R-0 roflumilast (Daliresp) 500 MCG tablet Take 1 tablet by mouth daily. Normal Disp- 30 tablet, R-5 tiotropium (Spiriva Respimat) 2.5 MCG/ACT Aero Soln inhaler Inhale 2 puffs daily. Normal Disp-4 g, R-5 !! - Potential duplicate medications found. Please [...] Not on file Tobacco Use Smoking status: Every Day Current packs/day: 0.00 Types: Cigarettes Last attempt to quit: 02/25/2021 Years since quittin.6 Smokeless tobacco: Former Quit date: 02/25/2021 Vaping Use Vaping status: Never Used Substance and Sexual Activity Alcohol [...] Not on file Physical Exam: Physical Exam Constitutional: Appearance: Normal appearance. HENT: Head: Normocephalic and atraumatic. Right Ear: Tympanic membrane and external ear normal. Left Ear: Tympanic membrane and external ear normal. Nose: Nose normal. Mouth/Throat: Mouth: Mucous membranes are moist. Pharynx: Oropharynx is clear. Eyes: Pupils: Pupils are equal, round, and reactive to light. Cardiovascular: Rate and Rhythm: Normal rate and regular rhythm. Heart sounds: Normal heart sounds. Pulmonary: Effort: Pulmonary effort is normal. Breath sounds: Normal breath sounds. Abdominal: General: Bowel sounds are normal. There is no distension. Palpations: Abdomen is soft. Tenderness: There is no abdominal tenderness. There is no guarding or rebound. Musculoskeletal: General: Normal range of motion. Cervical back: Normal range of motion and neck supple. Skin: General: Skin is warm and dry. Capillary Refill: Capillary refill takes less than 2 seconds. Findings: No erythema. Neurological: General: No focal deficit present. Mental Status: He is alert and oriented to person, place, and time. Mental status is at baseline. Cranial Nerves: No cranial nerve deficit. Sensory: No sensory deficit. Motor: No weakness. Coordination: Coordination normal. Deep Tendon Reflexes: Reflexes normal. Psychiatric: Mood and Affect: Mood normal. Behavior: Behavior normal. Vital Signs During ED Visit Patient Vitals for the past 24 hrs: BP Temp Temp src Pulse Resp SpO2 10/26/23 1219 117/71 -- -- 77 18 -- 10/26/23 1120 135/82 98.4 F (36.9 C) Oral 60 20 100 % Orders/Results: Orders Placed This Encounter Troponin I, High sensitivity ECG Valacyclovir 1 g tablet lidocaine 5 % Patch patch Results for orders placed or performed during the hospital encounter of 10/26/23 TROPONIN I, HIGH SENSITIVITY Result Value Ref Range TROPONIN I, HIGH SENSITIVITY 4 0 - 20 pg/mL Radiographic Imaging No orders to display Moderate Sedation Procedure: No Procedures: Procedures ED Summary: Appears represent herpes zoster. Patient will be placed on acyclovir as he is within the treatment window. Patient be discharged home with follow up on outpatient basis. Patient can return for changes symptoms, worse symptoms, any of the issues. Clinical Impression: 1. Herpes zoster without complication No follow-ups on file. Discharge Medication List as of 10/26/2023 11:54 AM START taking these medications Details lidocaine 5 % Patch patch Place 1 patch on skin every 24 hours. Max of 12 hours of application thenremove. Normal Disp-12 patch, R-0 Valacyclovir 1 g tablet Take 1 tablet by mouth 3 times daily for 7 days. Normal Disp-21 tablet, R-0 Discharge Medication List as of 10/26/2023 11:54 AM An After Visit Summary was printed and given to the patient with above information. . . Dylon Mccain MD 10/26/231923 * Jacklyn Barrios RN - 10/26/2023 11:21 AM EDT Bed: E012 Expected date: Expected time: Means of arrival: Comments: [facility] [place] Emergency department Note* Dylon Mccain MD - 10/26/2023 12:21 PM EDT Emergency Department Report [facility] EMERGENCY DEPARTMENT Service Date:.10/26/23 PCP: Estephania Alvarado Chief Complaint: Chief Complaint Patient presents with Shortness of Breath To ED with c/o SOB that started yesterday. Daughter in law states states he was walking without oxygen today and started right sided shingles started today. Patient arrives via EMS from urgent care due to hypotension. HPI Darin Breaux is a 78 y.o. male presents to the ED today due to shortness of breath. Patient states these symptoms are been ongoing. They are concerned about the rash in his abdomen. He states his symptoms started yesterday. He had some pain in a noticed rash is morning. Patient denies prior history of similar. Patient states his breathing is at his baseline. There is no reported chest pain. Noreported cough. Review of Systems: Review of Systems All other systems reviewed and are negative. Past Medical History: Past Medical History: Diagnosis Date Arrhythmia Arthritis CAD (coronary artery disease) Cardiac angina COPD (chronic obstructive pulmonary disease) Emphysema lung Hyperlipidemia Hypertension Lung disease SD (myocardial infarction) ROMEO (obstructive sleep apnea) Pacemaker Renal disease Seizure 06/06/2020 Witnessed Past Surgical History: Past Surgical History: Procedure Laterality Date AAA REPAIR 01/31/2016 REMOVAL CATARACT (PEM) Bilateral 2012 PACEMAKER PLACEMENT 2002 battery change 2012 CORONARY STENT PLACEMENT 1996 BACK SURGERY N/A [id number] HEART CATHETERIZATION RELEASE CARPAL TUNNEL Right Allergies: Allergies Allergen Reactions Penicillins Hives and Swelling Tamsulosin Other reaction(s): Other (See Comments) Makes him "blackout" Clopidogrel Itching Medications: Discharge Medication List as of 10/26/2023 11:54 AM START taking these medications Details lidocaine 5 % Patch patch Place 1 patch on skin every 24 hours. Max of 12 hours of application thenremove. Normal Disp-12 patch, R-0 Valacyclovir 1 g tablet Take 1 tablet by mouth 3 times daily for 7 days. Normal Disp-21 tablet, R-0 CONTINUE these medications which have NOT CHANGED Details albuterol (2.5 MG/3ML) 0.083% inhalation solution inhale contents of 1 vial ( 3 milliliters ) in nebulizer by mouth and INTO THE LUNGS every 6 hours if needed Normal Disp-300 mL, R-3 albuterol 108 (90 Base) MCG/ACT Aero Soln inhaler Inhale 1-2 puffs every 6 hours as needed for Shortness of Breath or Wheezing. Normal Disp-1 Inhaler, R-2 Aspirin (ECOTRIN LOW STRENGTH) [address] tablet Take 1 tablet by mouth daily. Normal Disp-90 tablet, R-3 atorvastatin 10 MG tablet Take 1 tablet by mouth daily. Normal Disp-90 tablet, R-1 budesonide-formoterol (Symbicort) 160-4.5 mcg/puff Aerosol inhaler Inhale 2 puffs every 12 hours. Normal Disp-10.2 g, R-3 !! DISABILITY PLACARD Disability placard end date 08/29/2020 Print Disp-1 Each, R-0 !! DISABILITY PLACARD Disability placard end date 09/19/2025 Print Disp-1 Each, R-0 fluticasone 50 MCG/ACT Suspension nasal spray 2 sprays by Nasal route daily. Normal Disp-9.9 mL, R-0 folic acid 1 MG tablet Take 1 tablet by mouth daily. Normal Disp-90 tablet, R-1 ipratropium-albuterol 0.5-2.5 (3) MG/3ML nebulizer solution Take 3 mL by nebulization 4 times daily. Normal Disp-30 Each,R-0 Lisinopril 10 MG tablet Take 1 tablet by mouth daily. Historical Med metoprolol 25 MG tab regular release Take 1 tablet by mouth 2 times daily. Normal Disp-180 tablet, R-3 midodrine 5 MG tablet Take 1 tablet by mouth 3 times daily (space doses 6 hours apart). Normal Disp-90 tablet, R-3 Misc. Devices Misc by Unknown route. APAP 5-20 cm H2O set up 04/19/21 [facility] Historical Med nitroGLYCERIN 0.[address] 1 tablet under tongue every 5 minutes as needed for Chest pain. max = 3 doses. If CP persists after 3rd dose, call 911 Normal Disp-25 tablet, R-0 oxygen gas Patient discharged from [facility] on 4 Liters of Oxygen via nc due to desaturation.Please provide oxygen for patient due to [facility] ED discharge instructions. This order certifies that this patient is under my care and that I, or a Nurse Practition er or Physician's Food Service Supervisor had a [id number] Encounter with them. Based upon those findings, the equipment/supplies listed above are medically necessary. Print Disp-1 Device, R-0 roflumilast (Daliresp) 500 MCG tablet Take 1 tablet by mouth daily. Normal Disp- 30 tablet, R-5 tiotropium (Spiriva Respimat) 2.5 MCG/ACT Aero Soln inhaler Inhale 2 puffs daily. Normal Disp-4 g, R-5 !! - Potential duplicate medications found. Please [...] Not on file Tobacco Use Smoking status: Every Day Current packs/day: 0.00 Types: Cigarettes Last attempt to quit: 02/25/2021 Years since quittin.6 Smokeless tobacco: Former Quit date: 02/25/2021 Vaping Use Vaping status: Never Used Substance and Sexual Activity Alcohol [...] Not on file Physical Exam: Physical Exam Constitutional: Appearance: Normal appearance. HENT: Head: Normocephalic and atraumatic. Right Ear: Tympanic membrane and external ear normal. Left Ear: Tympanic membrane and external ear normal. Nose: Nose normal. Mouth/Throat: Mouth: Mucous membranes are moist. Pharynx: Oropharynx is clear. Eyes: Pupils: Pupils are equal, round, and reactive to light. Cardiovascular: Rate and Rhythm: Normal rate and regular rhythm. Heart sounds: Normal heart sounds. Pulmonary: Effort: Pulmonary effort is normal. Breath sounds: Normal breath sounds. Abdominal: General: Bowel sounds are normal. There is no distension. Palpations: Abdomen is soft. Tenderness: There is no abdominal tenderness. There is no guarding or rebound. Musculoskeletal: General: Normal range of motion. Cervical back: Normal range of motion and neck supple. Skin: General: Skin is warm and dry. Capillary Refill: Capillary refill takes less than 2 seconds. Findings: No erythema. Neurological: General: No focal deficit present. Mental Status: He is alert and oriented to person, place, and time. Mental status is at baseline. Cranial Nerves: No cranial nerve deficit. Sensory: No sensory deficit. Motor: No weakness. Coordination: Coordination normal. Deep Tendon Reflexes: Reflexes normal. Psychiatric: Mood and Affect: Mood normal. Behavior: Behavior normal. Vital Signs During ED Visit Patient Vitals for the past 24 hrs: BP Temp Temp src Pulse Resp SpO2 10/26/23 1219 117/71 -- -- 77 18 -- 10/26/23 1120 135/82 98.4 F (36.9 C) Oral 60 20 100 % Orders/Results: Orders Placed This Encounter Troponin I, High sensitivity ECG Valacyclovir 1 g tablet lidocaine 5 % Patch patch Results for orders placed or performed during the hospital encounter of 10/26/23 TROPONIN I, HIGH SENSITIVITY Result Value Ref Range TROPONIN I, HIGH SENSITIVITY 4 0 - 20 pg/mL Radiographic Imaging No orders to display Moderate Sedation Procedure: No Procedures: Procedures ED Summary: Appears represent herpes zoster. Patient will be placed on acyclovir as he is within the treatment window. Patient be discharged home with follow up on outpatient basis. Patient can return for changes symptoms, worse symptoms, any of the issues. Clinical Impression: 1. Herpes zoster without complication No follow-ups on file. Discharge Medication List as of 10/26/2023 11:54 AM START taking these medications Details lidocaine 5 % Patch patch Place 1 patch on skin every 24 hours. Max of 12 hours of application thenremove. Normal Disp-12 patch, R-0 Valacyclovir 1 g tablet Take 1 tablet by mouth 3 times daily for 7 days. Normal Disp-21 tablet, R-0 Discharge Medication List as of 10/26/2023 11:54 AM An After Visit Summary was printed and given to the patient with above information. . . Dylon Mccain MD 10/26/231923 [facility] [place]04[facility] Emergency department Note* Jacklyn Barrios RN - 10/26/2023 11:21 AM EDT Bed: E012 Expected date: Expected time: Means of arrival: Comments: EMS T [facility] [place]04-[facility]24 History of Present illness Narrative* Gianna Strickland PA-C - 10/26/2023 10:05 AM EDT Images from the original note were not included. [facility] TACO NOTE: Name: Darin Breaux, 78 y.o. CSN:[id number] PCP: No primary care provider on file. ALL: Allergies Allergen Reactions Penicillins Hives and Swelling Tamsulosin Unknown Other reaction(s): Other (See Comments) Makes him "blackout" Clopidogrel Itching History: Chief Complaint: Rash (Rash on right side of abdomen since this AM ) Encounter Date: 10/26/2023 HPI: The history was obtained from the patient. Darin is a 78 y.o. male, who presents with a chief complaint of Rash (Rash on right side of abdomen since this AM ). States he has a rash on the right side of his abdomen. The rash does appear vesicular. He states it is irritated and burning. No medications changes. Today in clinic vitals were abnormal. Blood pressure was 85/45. Pressure was retaken after oxygen and it was 113/74 oxygen at 85%. He states he wears 3 L of oxygen at home and took it off to come here. Does have a history of COPD. He is a current smoker. He states he had 1 cigarette this morning and that was the first on Thursday. Patient put on 2 L of oxygen and O2 sat was as high as 91% after O2 and would lower to 77%. He states yesterday he was in bed all day as he felt short of breath. He states that he does have some lightheadedness. He did take his inhalers this morning. Denies vision changes, nausea, vomiting, chest pain. PMHx: Past Medical History: Diagnosis Date COPD (chronic obstructive pulmonary disease) ([facility]) Current Outpatient Medications Medication Sig Dispense Refill albuterol 2.5 mg /3 mL (0.083 %) nebulizer solution INHALE CONTENTS OF ONE VIAL (3ML) EVERY SIX HOURS NEEDED FOR WHEEZING albuterol 90 mcg/actuation inhaler INHALE TWO PUFFS BY MOUTH EVERY 6 HOURS NEEDED FOR SHORTNESS OF BREATH OR wheezing atorvastatin (Lipitor) 10 mg tablet Take 1 tablet (10 mg) by mouth once daily. budesonide-formoteroL (Symbicort) 160-4.5 mcg/actuation inhaler Inhale 2 puffs twice a day. Eliquis 5 mg tablet Take 1 tablet (5 mg) by mouth 2 times a day. fluticasone (Flonase) 50 mcg/actuation nasal spray Administer 2 sprays into affected nostril(s) once daily. folic acid (Folvite) 1 mg tablet Take 1 tablet (1 mg) by mouth once daily. furosemide (Lasix) 40 mg tablet TAKE ONE TABLET BY MOUTH ONCE DAILY FOR 5 DAYS levoFLOXacin (Levaquin) 750 mg tablet Take 1 tablet (750 mg) by mouth once daily. lisinopril 10 mg tablet Take 1 tablet (10 mg) by mouth once daily. metoprolol tartrate (Lopressor) 100 mg tablet Take 1 tablet (100 mg) by mouth 2 times a day. midodrine (Proamatine) 5 mg tablet Take 1 tablet (5 mg) by mouth. pantoprazole (ProtoNix) 20 mg EC tablet Take 1 tablet (20 mg) by mouth once daily. roflumilast (Daliresp) 500 mcg tablet Take 1 tablet (500 mcg) by mouth once daily. Spiriva Respimat 2.5 mcg/actuation inhaler Inhale 2 puffs once daily. doxycycline (Vibramycin) 100 mg capsule Take 1 capsule (100 mg) by mouth 2 times a day. No current facility-administered medications for this visit. PMSx: History reviewed. No pertinent surgical history. Fam Hx: No family history on file. SOC. Hx: Social History Socioeconomic History Marital status: Spouse name: Not on file Number of children: Not on file Years of education: Not on file Highest education level: Not on file Occupational History Not on file Tobacco Use Smoking status: Every Day Types: Cigarettes Smokeless tobacco: Never Substance and Sexual Activity Alcohol use: Not on file Drug use: Not on file Sexual activity: Not on file Other Topics Concern Not on file Social History Narrative Not on file Social Determinants of Health Financial Resource Strain: Not on file Food Insecurity: Not on file Transportation Needs: Not on file Physical Activity: Not on file Stress: Not on file Social Connections: Not on file Intimate Partner Violence: Not on file Housing Stability: Not on file Vitals: 10/26/23 1004 BP: (!) 85/45 Pulse: 67 Resp: 16 SpO2: (!) 85% 69.4 kg (153 lb) Physical Exam Vitals reviewed. Constitutional: Appearance: Normal appearance. HENT: Mouth/Throat: Mouth: Mucous membranes are moist. Pharynx: Oropharynx is clear. Eyes: Conjunctiva/sclera: Conjunctivae normal. Pupils: Pupils are equal, round, and reactive to light. Cardiovascular: Rate and Rhythm: Normal rate and regular rhythm. Pulmonary: Effort: Pulmonary effort is normal. Breath sounds: Normal breath sounds. No decreased breath sounds, wheezing, rhonchi or rales. Skin: General: Skin is warm. Comments: Vesicular rash noted to the R abdomen. Does not cross midline. Follows dermatomal distribution. Neurological: General: No focal deficit present. Mental Status: He is oriented to person, place, and time. He is lethargic. Psychiatric: Mood and Affect: Mood normal. Behavior: Behavior normal. I did personally review Darin's past medical history, surgical history, social history, as well as family history (when relevant). In this case, I also oversaw the his drug management by reviewinghis medication list, allergy list, as well as the medications that I prescribed during the UC course and/or recommended as an out-patient (including possible OTC medications such as acetaminophen, NSAIDs , etc). After reviewing the items above, I did look at previous medical documentation, such as recent hospitalizations, office visits, and/or recent consultations with PCP/specialist. SDOH: Another factor that I considered in Darin's care was his Social Determinants of Health (SDOH). During this UC encounter, he did not have social determinants of health. Those SDOH influencingClarence's care are: none LABORATORY @ RADIOLOGICAL IMAGING (if done): No results found for this or any previous visit (from the past 24 hour(s)). UC COURSE/MEDICAL DECISION MAKING: Darin is a 78 y.o., who presents with a working diagnosis of 1. SOB (shortness of breath) 2. Herpes zoster with complication Darin was seen today for rash. Diagnoses and all orders for this visit: SOB (shortness of breath) (Primary) Herpes zoster with complication EMS was called due to worsening and O2 sats. Patient was placed on 3 L of oxygen with a nasal cannula. Patient was agreeable to be taken to reviewed up by EMS today. O2 sats were as high as 91 and aslow as 73. BP reaches a high of 113/74 but was difficult to get a reading when EMS arrived. InitialBP reading in our clinic was 85/45. Patient stated he was lightheaded, did appear somewhat lethargic. He does have a history of COPD. EMS arrived 10 minutes post call. History was provided to EMS andhe was taken out of our clinic to [facility] ER immediately. He does also appear to have herpes zoster to his right abdomen. Discussed with him treatment at urgent care versus it being addressed at the ER. Patient states he would like to have this issue addressed at the ER as well. Olamide Strickland PA-C Advanced Practice Provider [facility] Work Phone: [phone] 282-873503-21-2024 History of Present illness Narrative* Gianna Strickland PA-C - 10/08/2023 9:25 AM EDT [facility] TACO NOTE: Name: Darin Breaux, 78 y.o. CSN:[id number] PCP: No primary care provider on file. ALL: Allergies Allergen Reactions Penicillins Hives and Swelling Tamsulosin Unknown Other reaction(s): Other (See Comments) Makes him "blackout" Clopidogrel Itching History: Chief Complaint: Cough (Cough worse than normal, exposed to son with viral infection ) Encounter Date: 10/08/2023 HPI: The history was obtained from the patient. Darin is a 78 y.o. male, who presents with a chief complaint of Cough (Cough worse than normal, exposed to son with viral infection ). He states he was coughing throughout the night and his family wanted him to come and make sure he did not have covid. He states the coughing has decreased today. He does have a hx. Of copd and emphysema. Uses multiple inhalers and oxygen at home. He does appear sob in the exam room. He denies fevers, N/V, headache, sore throat, chest pain, sob, abdominal pain. PMHx: Past Medical History: Diagnosis Date COPD (chronic obstructive pulmonary disease) ([facility]) Current Outpatient Medications Medication Sig Dispense Refill albuterol 2.5 mg /3 mL (0.083 %) nebulizer solution INHALE CONTENTS OF ONE VIAL (3ML) EVERY SIX HOURS NEEDED FOR WHEEZING albuterol 90 mcg/actuation inhaler INHALE TWO PUFFS BY MOUTH EVERY 6 HOURS NEEDED FOR SHORTNESS OF BREATH OR wheezing atorvastatin (Lipitor) 10 mg tablet Take 1 tablet (10 mg) by mouth once daily. budesonide-formoteroL (Symbicort) 160-4.5 mcg/actuation inhaler Inhale 2 puffs twice a day. doxycycline (Vibramycin) 100 mg capsule Take 1 capsule (100 mg) by mouth 2 times a day. Eliquis 5 mg tablet Take 1 tablet (5 mg) by mouth 2 times a day. fluticasone (Flonase) 50 mcg/actuation nasal spray Administer 2 sprays into affected nostril(s) once daily. folic acid (Folvite) 1 mg tablet Take 1 tablet (1 mg) by mouth once daily. furosemide (Lasix) 40 mg tablet TAKE ONE TABLET BY MOUTH ONCE DAILY FOR 5 DAYS levoFLOXacin (Levaquin) 750 mg tablet Take 1 tablet (750 mg) by mouth once daily. lisinopril 10 mg tablet Take 1 tablet (10 mg) by mouth once daily. metoprolol tartrate (Lopressor) 100 mg tablet Take 1 tablet (100 mg) by mouth 2 times a day. midodrine (Proamatine) 5 mg tablet Take 1 tablet (5 mg) by mouth. pantoprazole (ProtoNix) 20 mg EC tablet Take 1 tablet (20 mg) by mouth once daily. roflumilast (Daliresp) 500 mcg tablet Take 1 tablet (500 mcg) by mouth once daily. Spiriva Respimat 2.5 mcg/actuation inhaler Inhale 2 puffs once daily. predniSONE (Deltasone) 10 mg tablet Take 2 tablets (20 mg) by mouth once daily for 7 days. 14 tablet 0 No current facility-administered medications for this visit. PMSx: History reviewed. No pertinent surgical history. Fam Hx: No family history on file. SOC. Hx: Social History Socioeconomic History Marital status: Spouse name: Not on file Number of children: Not on file Years of education: Not on file Highest education level: Not on file Occupational History Not on file Tobacco Use Smoking status: Every Day Types: Cigarettes Smokeless tobacco: Never Substance and Sexual Activity Alcohol use: Not on file Drug use: Not on file Sexual activity: Not on file Other Topics Concern Not on file Social History Narrative Not on file Social Determinants of Health Financial Resource Strain: Not on file Food Insecurity: Not on file Transportation Needs: Not on file Physical Activity: Not on file Stress: Not on file Social Connections: Not on file Intimate Partner Violence: Not on file Housing Stability: Not on file Vitals: 10/08/23 0944 BP: 161/90 Pulse: 59 Resp: 16 Temp: 36.4 C (97.5 F) SpO2: 95% 69.9 kg (154 lb) Physical Exam Constitutional: Appearance: Normal appearance. HENT: Right Ear: Tympanic membrane normal. Left Ear: Tympanic membrane normal. Nose: Nose normal. Mouth/Throat: Mouth: Mucous membranes are moist. Pharynx: Oropharynx is clear. Eyes: Conjunctiva/sclera: Conjunctivae normal. Pupils: Pupils are equal, round, and reactive to light. Cardiovascular: Rate and Rhythm: Normal rate and regular rhythm. Pulmonary: Effort: Pulmonary effort is normal. Breath sounds: Normal breath sounds. No decreased breath sounds, wheezing, rhonchi or rales. Skin: General: Skin is warm. Neurological: General: No focal deficit present. Mental Status: He is alert and oriented to person, place, and time. Psychiatric: Mood and Affect: Mood normal. Behavior: Behavior normal. I did personally review Darin's past medical history, surgical history, social history, as well as family history (when relevant). In this case, I also oversaw the his drug management by reviewinghis medication list, allergy list, as well as the medications that I prescribed during the UC course and/or recommended as an out-patient (including possible OTC medications such as acetaminophen, NSAIDs , etc). After reviewing the items above, I did not look at previous medical documentation, such as recent hospitalizations, office visits, and/or recent consultations with PCP/specialist. SDOH: Another factor that I considered in Darin's care was his Social Determinants of Health (SDOH). During this UC encounter, he did not have social determinants of health. Those SDOH influencingClarence's care are: none LABORATORY @ RADIOLOGICAL IMAGING (if done): Results for orders placed or performed in visit on 10/08/23 (from the past 24 hour(s)) POCT BD Veritor Triplex Ag Result Value Ref Range POC Triplex SARS-CoV-2 Ag Presumptive negative for Triplex SARS-CoV-2 (no antigen detected) Presumptive negative for Triplex SARS-CoV-2 (no antigen detected) POC Triplex Flu A-Ag Presumptive negative for Triplex FLU A (no antigen detected) Presumptive negative for Triplex FLU A (no antigen detected) POC Triplex Flu B-Ag Presumptive negative for Triplex FLU B (no antigen detected) Presumptive negative for Triplex FLU B (no antigen detected) UC COURSE/MEDICAL DECISION MAKING: Darin is a 78 y.o., who presents with a working diagnosis of 1. Acute cough Darin was seen today for cough. Diagnoses and all orders for this visit: Acute cough (Primary) - POCT BD Veritor Triplex Ag - predniSONE (Deltasone) 10 mg tablet; Take 2 tablets (20 mg) by mouth once daily for 7 days. He may be experiencing an acute cough due to a viral syndrome or acute exacerbation of COPD. Appears that the coughing was present for an acute period and is resolving. Will send in steroid burst. Heis to continue with inhaler use and oxygen at home. As we discussed, he is to return to our office or ER immediately if there is any worsening of her condition, such as increased cough, shortness of breath, persistent fevers, repeated vomiting, dehydration, or if his condition worsens at all. Olamide Strickland PA-C Advanced Practice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 exertion with 2 L being his requirement. As noted above he is on 4 L at baseline. He indicates his plan is to go home and live with his daughter at discharge. We will go ahead and discharge him home later today. Objective Data Objective Data Vital Signs: Vital Signs Temp Pulse Resp BP Pulse Ox O2 Del Method O2 Flow Rate 98.5 F 74 20 H 106/57 L 97 Nasal Cannula 2 08/23/22 06:06 08/23/22 06:06 08/23/22 06:06 08/23/22 06:06 08/23/22 06:06 08/23/22 06:06 08/23/22 06:06 Oxygen Flow Rate (L/min) [ 2 AMBULATING with Oxygen #1] Oxygen Flow Rate (L/min) [ 0 AMBULATING on Room Air] Oxygen Flow Rate (L/min) [At 0 REST on Room Air] Oxygen Flow Rate (L/min) 2 Oxygen Delivery Method Nasal Cannula Weight: 72.575 kg Body Mass Index (BMI) 20.5 Intake & Output: Intake and Output for Last 24 Hours 08/21/22 08/22/22 08/23/22 23:59 23:59 23:59 Intake Total 2707.5 / 2707.5 1242.5 / 1242.5 Output Total 400 / 400 475 / 475 Balance 2307.5 / 2307.5 767.5 / 767.5 Lab / Micro Data Result Diagrams: 08/23/22 04:40 08/23/22 04:40 Labs: Laboratory Results - last 24 hr 08/22/22 14:00: WBC 13.4 H, RBC 3.50 L, Hgb 11.0 L, Hct 33.6 L, MCV 96.0 H, MCH 31.4, MCHC 32.7, RDW Std Deviation 52.5 H, RDW Coeff of Jimbo 15.3 H, Plt Count 176, MPV 10.4, Immature Gran % (Auto) 0.600, Neut % (Auto) 94.8 H, Lymph % (Auto) 1.8 L, Crawford % (Auto) 2.2, Eos % (Auto) 0.2, Baso % (Auto) 0.4, Absolute Neuts (auto) 12.7 H, Absolute Lymphs (auto) 0.24 L, Nucleated RBC % 0, Differential Comment COMMENT 08/22/22 14:00: Sodium 143, Potassium 3.8, Chloride 107, Carbon Dioxide 27.0, Anion Gap 9, BUN 34 H, Creatinine 1.47 H, Estim Creat Clear Calc 49.37, Est GFR (MDRD) Af Amer 60, Est GFR (MDRD) Non-Af 49 L, BUN/Creatinine Ratio 23.1 H, Glucose 107 H, Calcium 9.3, Troponin I High Sens 10 08/22/22 14:00: Lactic Acid 2.3 H* 08/22/22 15:40: Urine Color Yellow, Urine Clarity Clear, Urine pH 6.0, Ur Specific [place] 1.010, Urine Protein 30 H, Urine Glucose (UA) Normal, Urine Ketones Negative, Urine Occult Blood 150 H, Urine Nitrite Positive H, Urine Bilirubin Negative, Urine Urobilinogen 4 H, Ur Leukocyte Esterase 500 H, Urine RBC 0 SEEN, Urine WBC 5-10 SEEN, Ur Squamous Epith Cells 0-5 SEEN, Urine Bacteria 2+, Urine Mucus 0 SEEN 08/22/22 18:45: Lactic Acid 2.6 H* 08/23/22 04:40: WBC 14.2 H, RBC 2.73 L, Hgb 8.3 L, Hct 26.8 L, MCV 98.2 H, MCH 30.4, MCHC 31.0 L D, RDW Std Deviation 56.0 H, RDW Coeff of Jimbo 15.6 H, Plt Count 141 L, MPV 10.7, Immature Gran % (Auto) 0.600, Neut % (Auto) 95.0 H, Lymph% (Auto) 1.1 L, Crawford % (Auto) 3.1, Eos % (Auto) 0.0, Baso % (Auto) 0.2, AbsoluteNeuts (auto) 13.4 H, Absolute Lymphs (auto) 0.16 L, Nucleated RBC % 0, Differential Comment SCANNED 08/23/22 04:40: Sodium 140, Potassium 4.1, Chloride 110 H, Carbon Dioxide 23.0, Anion Gap 7, BUN 28 H, Creatinine 1.33 H, Estim Creat Clear Calc 48.50, Est GFR (MDRD) Af Amer 67, Est GFR (MDRD) Non-Af 56 L, BUN/Creatinine Ratio 21.1 H, Glucose 142 H, Calcium 8.4 L Micro: Microbiology 08/22/22 14:00 Nasal Secretion SARS-CoV-2 & FLU Antigen (Rapid) - Final Radiography Diagnostic Testing: Radiology Impression Chest X-Ray 08/22/22 14:08 IMPRESSION: Hyperinflation. Mild linear scarring at the right lung base. Electronically Signed: Lico Torrez MD at 15:00 EST , Physical Exam Const alert, oriented x3, no apparent distress and average body habitus Constitutional Narrative: Thin, older, white male, sitting up in a chair at the bedside, appears comfortable nontoxic, no issues with respiratory status HEENT head/scalp atraumatic and moist oral mucous membranes HEENT Narrative: Edentulous, Mallampati 1, no thrush Head and Scalp: normocephalic Resp normal respiratory effort, no retractions, no use of accessory muscles and No clear to auscultation bilaterally Resp Narrative: Diffusely diminished with few wheezes scattered but otherwise clear and no signsof respiratory distress/extremis, no conversational dyspnea Auscultation: wheezes; Negative for crackles or rhonchi Cardio regular rate, regular rhythm, S1 normal heart sound, S2 normal heart sound, no murmurs, no rub, no gallops and no clicks GI normal to inspection, nondistended, normoactive bowel sounds, soft to palpation and non-tender Extremity no clubbing, cyanosis or edema Extremity Narrative: Decreased lean muscle mass Neuro oriented x3, moves all extremities and no focal motor deficits Neuro Narrative: Mild Weakness proximal greater than distal Speech: speech normal Psych affect normal Psych Narrative: Very pleasant, appropriately interactive Assessment & Plan Assessment/Plan (1) Acute UTI: (2) Generalized weakness: (3) Hypoxia: (4) Bedbug bite: (5) COPD exacerbation: PLAN: Plan Hypoxia secondary to acute exacerbation of COPD -Patient had transient hypoxia at home but has been stable here on his baseline oxygen of 4 L -Has actually been weaned to 2 L with sats of 97% at this time -Continue prednisone taper -COVID and flu were negative -Continue scheduled DuoNebs and as needed albuterol -Chest x-ray reviewed and shows hyperinflation with flattened diaphragms but no acute pulmonary process -Ambulatory pulse ox performed and patient only is requiring oxygen with exertion at 2 L/min Urinary tract infection -Patient with dysuria and frequency on presentation -UA with limited white cells but did have 5-10 per-power field present as well as nitrites, leuk esterase, and bacteria -We will go ahead and treat with ceftriaxone -Blood and urine cultures are pending -We will plan on discharge for 6 more days of Keflex Debility -Patient had evidently been fairly active and stable with regards to his IADLs and ADLs up until the day prior to presentation -Weaker on the day of presentation -PT/OT evaluated the patient felt he would be stable for discharge home with home health -Upon admission daughter did not feel that he would required detention facility at discharge but will await therapy recommendations Microscopic hematuria -Would recommend outpatient follow-up after infection treatment has been completed as patient does have tobacco abuse history and would be at increased risk for bladder CA -We will recommend follow-up with Dr. Melendez after discharge -No gross hematuria Bedbug bite -Clothes have been removed that were infested at the time of admission -No sign of cellulitis -Continue to monitor CKD stage III A -Baseline serum creatinine appears to be between 1.3 and 1.4 -Current serum creatinine is 1.33 -Avoid nephrotoxins as able -Continue to monitor Severe malnutrition -Dietitian consult -Continue supplements with Ensure COPD Gold classification stage IV -Follows with pulmonary as an outpatient -Last FEV1 was 30% of predicted -Still is smoking -Has follow-up with Dr. Madison in November -Hold home inhalers and restart at discharge CAD/HPL/HTN Continue home aspirin -Continue home -Home lisinopril is on hold secondary to borderline blood pressures -Continue home metoprolol PAF/SSS -History of sick sinus syndrome with symptomatic bradycardia status post pacemaker -Continue home metoprolol with hold parameters -Continue home apixaban AAA -Status postrepair 2016 Vitamin D deficiency -Continue home vitamin D supplementation Tobacco abuse -Recommend cessation -Nicotine replacement offered DVT prophylaxis -Patient is fully anticoagulated on apixaban 08/23/22 1345 <Electronically signed by Skylar Smith DO> Cosigner Signature (if applicable): CC: ~ Signed [facility] Work Phone: [phone]) 229-213602-04-[address] Ojeda [facility] August 22, 2022 10:31pm Note Date/Time August 22, 2022 2 :18pm [facility] Medical Records Department [address] [place] [address] Emergency Department Summary 08/22/22 MR#: [id number] Acct: [id number] Name: DARIN BREAUX Rep #:[id number] : 1945 77 From: Randy Ojeda MD PCP: Dr. Estephania Alvarado MD Status:ADM IN Location: [facility] [id number] HPI History of Present Illness Chief Complaint: Shortness of Breath Informant: patient Narrative Narrative: Patient presents with upper complaints. 1 is that he feels he has been short of breath. He has a history of COPD. He states he has been wheezing a little bit more off and on for a week or so. No real cough that is different. He did turn his oxygen up from 3 to 4 L at home. He states even at 4 L he had oxygen saturations down in the 70%. But it sounds like he has a very long oxygen tube. We are getting oxygen levels at 97% with 4L here. He also complains of dysuria frequency and actually urinary incontinence which is new for him. This is all within the last 2 days. He is also noted some blood in the urine. He is on Eliquis and has been taking it 5 mg twice a day. This is for history of intermittent A. fib. He said he had some tightness in his chest when the breathing was bad but no pain. No back pain. He has had a AAA with stents he is having no abdominal or back pain in that area. He is alsohad cardiac stents before. He lives at home with family members. But he stateshe is very weak. He has not been vomiting or having nausea. He may have had fevers but has not checked at home. No change in medications recently. [facility] Medical History (Updated 08/22/22 @ 22:[address] Randy Ojeda MD) AAA (abdominal aortic aneurysm) Atherosclerotic heart disease of [place] coronary artery without angina pectoris Atrial fibrillation Atrial tachycardia Bilateral carotid artery stenosis Carotid artery stenosis Chest pain COPD (chronic obstructive pulmonary disease) Coronary artery disease Emphysema lung Essential hypertension First degree AV block GERD (gastroesophageal reflux disease) High cholesterol Mixed hyperlipidemia Myocardial infarct Paroxysmal atrial fibrillation Presence of permanent cardiac pacemaker (~04/09/21) Presence of stent in coronary artery (~1996) Severe protein-calorie malnutrition Sick sinus syndrome Smoker Symptomatic bradycardia Home Medications albuterol sulfate 2.5 mg/3 mL (0.083 %) solution for nebulization 2.5 mg inhalation Q6H PRN Wheezing 02/17/21 [History Last Taken 3 Days Ago ~08/19/22] aspirin 81 mg tablet 81 mg PO DAILY 02/17/21 [History Last Taken 08/21/22] folic acid 1 mg tablet 1 mg PO DAILY 02/17/21 [History Last Taken Unknown] ipratropium 0.5 mg-albuterol 3 mg (2.5 mg base)/3 mL nebulization soln 3 ml inhalation Q6H 02/17/21 [History Last Taken 3 Days Ago ~08/19/22] albuterol sulfate 90 mcg/actuation aerosol inhaler See Rx Instructions .Route .COMPLEX #8.5 grams 08/22/21 [Rx Last Taken 08/22/22] nitroglycerin 0.4 mg sublingual tablet (Nitrostat) 0.4 mg sublingual Q5-15M PRN Chest Pain #23 tabs 10/24/21 [Rx Last Taken Unknown] cholecalciferol (vitamin D3) 50 mcg (2,000 unit) capsule 50 mcg PO DAILY 01/08/22 [History Last Taken 08/21/22] ferrous sulfate 325 mg (65 mg iron) tablet (Feosol) 325 mg PO DAILY 01/08/22 [History Last Taken 08/21/22] apixaban 5 mg tablet (Eliquis) 5 mg PO BID #60 tabs 02/11/22 [Rx Last Taken 08/21/22] atorvastatin 10 mg tablet 10 mg PO DAILY #90 tabs 02/14/22 [Rx Last Taken 08/21/22] lisinopril 10 mg tablet 10 mg PO DAILY #90 tabs 02/14/22 [Rx Last Taken 08/21/22] midodrine 5 mg tablet 5 mg PO DAILY #90 tabs 02/14/22 [Rx Last Taken 08/21/22] tiotropium bromide 2.5 mcg/actuation mist for inhalation (Spiriva Respimat) 2 puff inhalation DAILY #4 grams 03/21/22 [Rx Last Taken 08/21/22] fluticasone propionate 50 mcg/actuation nasal spray,suspension (Flonase Allergy Relief) 2 spray intranasal DAILY #16 grams 05/22/22 [Rx Last Taken 08/21/22] metoprolol tartrate 50 mg tablet 50 mg PO BID #180 tabs 07/04/22 [Rx Last Taken 08/09/22] budesonide-formoterol HFA 160 mcg-4.5 mcg/actuation aerosol inhaler (Symbicort) See Rx Instructions .Route .COMPLEX #10.2 grams 07/31/22 [Rx Last Taken 08/21/22] Allergy/AdvReac Type Severity Reaction Status Date / Time clopidogrel [From Plavix] Allergy Hives Verified 08/22/22 13:28 Penicillins Allergy Hives Verified 08/22/22 13:28 tamsulosin [From Flomax] Allergy Other Verified 08/22/22 13:28 Family History Other Breast cancer CVA (cerebral vascular accident) Cancer Heart disease Hypertension Myocardial infarction Parkinson disease Surgical History History of AAA (abdominal aortic aneurysm) repair (~01/31/16) History of bilateral cataract extraction History of carpal tunnel release History of coronary artery stent placement History of hernia repair Presence of coronary angioplasty implant and graft (~1996) Previous back surgery Social History Smoking Status: Current every day smoker tobacco type: cigarettes Tobacco: How many years used: 66 Electronic Cigarette Use: not used second hand exposure: No alcohol intake: former substance use type: does not use caffeine: Yes Type: coffee Number of servings: 2 ROS ROS ED Constitutional Constitutional ED: Reports subjective Eyes Eyes: Denies change in vision ENT ENT ED: Denies rhinorrhea or sore throat Cardiovascular Cardiovascular: Denies chest pain, palpitations or racing heartbeat Respiratory/Chest Respiratory/Chest: Reports cough and dyspnea; Denies sputum Gastrointestinal Gastrointestinal: Denies abdominal pain, nausea or vomiting Genitourinary Genitourinary ED: Reports dysuria, hematuria and urinary frequency Musculoskeletal Musculoskeletal: Denies arthralgias, back pain, myalgias or neck pain Integumentary Denies rash Neurologic Neurologic: Denies headache(s) Endocrine Endocrinology: Denies polydipsia or polyuria Hematologic/Lymphatic Hematologic/Lymphatic: Reports easy bleeding and easy bruising Allergic/Immunologic Allergic/Immunologic ED: Denies urticaria EXAM Physical Exam Const Vital Signs: 08/22/22 13:26 08/22/22 13:24 08/22/22 14:24 Temperature 99.8 F H Temperature Source Temporal Pulse Rate 115 H 95 Respiratory Rate 26 H Respiratory Effort Short of Breath Respiratory Depth Shallow Respiratory Pattern Tachypnea Blood Pressure 184/103 H Blood Pressure Mean 130 Pulse Ox 82 95 Oxygen Delivery Method Nasal Cannula Nasal Cannula Nasal Cannula Oxygen Flow Rate (L/min) 3 4 08/22/22 14:34 08/22/22 15:45 08/22/22 15:46 Temperature 98.4 F Temperature Source Oral Pulse Rate 79 97 96 Respiratory Rate 20 H 22 H 18 Respiratory Effort Respiratory Depth Respiratory Pattern Normal Blood Pressure 121/60 H Blood Pressure Mean 80 Pulse Ox 94 95 Oxygen Delivery Method Nasal Cannula Nasal Cannula Oxygen Flow Rate (L/min) 3 3 08/22/22 16:53 Temperature Temperature Source Pulse Rate 99 Respiratory Rate 24 H Respiratory Effort Respiratory Depth Respiratory Pattern Blood Pressure 113/64 Blood Pressure Mean 80 Pulse Ox 96 Oxygen Delivery Method Nasal Cannula Oxygen Flow Rate (L/min) 3 Positive well nourished and well developed General Appearance ED: well developed and NAD; Negative for pallor HEENT Reports dry mucous membranes Mouth ED: Yes dry mucous membranes Mouth: dry mucous membranes Eyes General Eye ED: Negative for pale conjunctiva or scleral icterus Neck supple and no JVD Chest Wall inspection of chest normal Resp Resp Narrative: Overall quiet breath sounds. There is just a very subtle wheeze but not notable. His saturation was measured at 82% on nasal cannula. But he is actually 97% on 4 L nasal cannula while I am in the room. This shows no hypoxiacurrently Cardio regular rhythm Rate: tachycardic and other Other Details: Heart rate is tachycardic. But he does look to be in sinus rhythm on the monitor. He has a history of A. fib. GI normal to inspection, nondistended, normoactive bowel sounds, non-tender and non-distended Back/Spine no CVA tenderness Neuro oriented x3 Sensorium / Orientation: alert Psych mental status grossly normal Skin no rashes or lesions noted General Skin Exam: Negative for jaundice or pallor MDM MDM MDM Narrative Medical decision making narrative: My independent interpretation of his chest x-ray shows some mild basilar atelectasis. No acute infiltrative process. Likely COPD. Final reading by radiology shows hyperinflation and mild scarring Patient's CBC shows mild elevation of his white count at 13 4 with mild anemia at 11.0. Platelets normal. Electrolytes showed mild elevation of the creatinine at 1.47 showing some mild dehydration. Troponin is negative. Lactate was elevated 2.3. His urine showed 5-10 white cells along with positivenitrites and leukocyte Estrace. I did look back on prior cultures done in February 2021. With a urinalysis that was similar, he did end up growing out E. coli. I then noted that at that time it was resistant to Levaquin. I had given him Levaquin here because he had bothpulmonary and urinary symptoms and had significant allergy to penicillin Sellon with hives and trouble breathing. We discussed the patient and the above issueswith the hospitalist that he will be brought in the hospital. His daughter did come in. She states he has been very weak for the last day. He is not able to get up and easily move around at home. He is too weak to get up on his own and this is not normal for him. Lab Data Attestation: I reviewed the patient's lab results. Labs: Laboratory Results - last 24 hr 08/22/22 08/22/22 08/22/22 14:00 14:00 14:00 WBC 13.4 H RBC 3.50 L Hgb 11.0 L Hct 33.6 L MCV 96.0 H MCH 31.4 MCHC 32.7 RDW Std Deviation 52.5 H RDW Coeff of Jimbo 15.3 H Plt Count 176 MPV 10.4 Immature Gran % (Auto) 0.600 Neut % (Auto) 94.8 H Lymph % (Auto) 1.8 L Crawford % (Auto) 2.2 Eos % (Auto) 0.2 Baso % (Auto) 0.4 Absolute Neuts (auto) 12.7 H Absolute Lymphs (auto) 0.24 L Nucleated RBC % 0 Differential Comment COMMENT Sodium 143 Potassium 3.8 Chloride 107 Carbon Dioxide 27.0 Anion Gap 9 BUN 34 H Creatinine 1.47 H Estim Creat Clear Calc 49.37 Est GFR (MDRD) Af Amer 60 Est GFR (MDRD) Non-Af 49 L BUN/Creatinine Ratio 23.1 H Glucose 107 H Lactic Acid 2.3 H* Calcium 9.3 Troponin I High Sens 10 Urine Color Urine Clarity Urine pH Ur Specific [place] Urine Protein Urine Glucose (UA) Urine Ketones Urine Occult Blood Urine Nitrite Urine Bilirubin Urine Urobilinogen Ur Leukocyte Esterase Urine RBC Urine WBC Ur Squamous Epith Cells Urine Bacteria Urine Mucus 08/22/22 15:40 WBC RBC Hgb Hct MCV MCH MCHC RDW Std Deviation RDW Coeff of Jimbo Plt Count MPV Immature Gran % (Auto) Neut % (Auto) Lymph % (Auto) Crawford % (Auto) Eos % (Auto) Baso % (Auto) Absolute Neuts (auto) Absolute Lymphs (auto) Nucleated RBC % Differential Comment Sodium Potassium Chloride Carbon Dioxide Anion Gap BUN Creatinine Estim Creat Clear Calc Est GFR (MDRD) Af Amer Est GFR (MDRD) Non-Af BUN/Creatinine Ratio Glucose Lactic Acid Calcium Troponin I High Sens Urine Color Yellow Urine Clarity Clear Urine pH 6.0 Ur Specific [place] 1.010 Urine Protein 30 H Urine Glucose (UA) Normal Urine Ketones Negative Urine Occult Blood 150 H Urine Nitrite Positive H Urine Bilirubin Negative Urine Urobilinogen 4 H Ur Leukocyte Esterase 500 H Urine RBC 0 SEEN Urine WBC 5-10 SEEN Ur Squamous Epith Cells 0-5 SEEN Urine Bacteria 2+ Urine Mucus 0 SEEN Radiography Diagnostic Testing: Clinical Impression(s) from Imaging Studies Chest X-Ray 08/22/22 14:08 IMPRESSION: Hyperinflation. Mild linear scarring at the right lung base. Electronically Signed: Lico Torrez MD at 15:00 EST , EKG Initial EKG: Comments: My independent interpretation of an EKG none for dyspnea and history of atrial fibrillation showed sinus rhythm with first-degree AV block. Overall rate is 98. No ventricular ectopy. There is very subtle ST depression in lead V3 and possibly V4. Some of this could be some subtle baseline variation. This may be a very minimal change from May 23, 2021. No ST elevation. AK interval is long. QRS duration and QTc are normal. Discharge Plan Dx/Rx/DC Orders Clinical Impression: Acute UTI, Generalized weakness, Dehydration, Creatinine elevation Disposition Disposition: Acute Care Hospital [facility] Discharge Date/Time: 08/22/22 18:03 What to do if you have Problems For any increased pain, shortness of breath, bleeding, nausea or vomiting, chestpain, or any unexpected problems, contact your Primary Care Provider. Call [facility] ([phone]) or report to the closest Emergency Room. Call 911 if necessary. 08/22/222230 <Electronically signed by Randy Ojeda MD> Cosigner Signature (if applicable): CC: Dr. Estephania Alvarado MD ~ Signed [facility] Work Phone: [phone]) 787-890302-03-2023 History and physical note Author Dr. Brown [facility] August 22, 2022 5:19pm Note Date/Time August 22, 2022 5 :19pm [facility] Medical Records Department [address] [place] [address] H&P Exam - Hospitalist 08/22/221711 MR#: [id number] Acct: [id number] Name: DARIN BREAUX Rep #:[id number] : 1945 77 From: Mike Brown DO PCP: Dr. Estephania Alvarado MD Status:ADM IN [place] [facility] [id number] HPI - General General Date of Service: 08/22/22 Chief Complaint: hypoxia HPI Narrative DARIN BREAUX, is a 77 M who presents with hypoxia from home. Patient is on oxygen chronically at 4 L/min and with being on oxygen, patient's pulse ox is noted to be in the 70s. Patient was brought to the emergency room. Patient hashad few other episodes where drop down in the 70s but did not respond. In the emergency room, patient was not noted to be hypoxic. Patient had apparently noted some blood in urine and some urinary frequency and dysuria. Patient had aurinalysis that showed only 5-10 white blood cells but received levofloxacin forurinary tract infection. Additionally, patient did receive IV fluids. Daughter, was present at bedside, states that the patient is not drinking much fluid despite her insistence that he to drink. Patient has just been at his son's house, normally stays at his daughter's house, but apparently his close had been infested with bedbugs which have since been removed. [facility] Medical History (Updated 08/22/22 @ 17:[address] Mike Brown DO) AAA (abdominal aortic aneurysm) Atherosclerotic heart disease of [place] coronary artery without angina pectoris Atrial fibrillation Atrial tachycardia Bilateral carotid artery stenosis Carotid artery stenosis Chest pain COPD (chronic obstructive pulmonary disease) Coronary artery disease Emphysema lung Essential hypertension First degree AV block GERD (gastroesophageal reflux disease) High cholesterol Mixed hyperlipidemia Myocardial infarct Paroxysmal atrial fibrillation Presence of permanent cardiac pacemaker (~04/09/21) Presence of stent in coronary artery (~1996) Severe protein-calorie malnutrition Sick sinus syndrome Smoker Symptomatic bradycardia Home Medications albuterol sulfate 2.5 mg/3 mL (0.083 %) solution for nebulization 2.5 mg inhalation Q6H PRN Wheezing 02/17/21 [History Last Taken Unknown] aspirin 81 mg tablet 81 mg PO DAILY 02/17/21 [History Last Taken Unknown] folic acid 1 mg tablet 1 mg PO DAILY 02/17/21 [History Last Taken Unknown] ipratropium 0.5 mg-albuterol 3 mg (2.5 mg base)/3 mL nebulization soln 3 ml inhalation Q6H 02/17/21 [History Last Taken Unknown] albuterol sulfate 90 mcg/actuation aerosol inhaler See Rx Instructions .Route .COMPLEX #8.5 grams 08/22/21 [Rx Last Taken Unknown] nitroglycerin 0.4 mg sublingual tablet (Nitrostat) 0.4 mg sublingual Q5-15M PRN Chest Pain #23 tabs 10/24/21 [Rx Last Taken Unknown] cholecalciferol (vitamin D3) 50 mcg (2,000 unit) capsule 50 mcg PO DAILY 01/08/22 [History Last Taken Unknown] ferrous sulfate 325 mg (65 mg iron) tablet (Feosol) 325 mg PO DAILY 01/08/22 [History Last Taken Unknown] apixaban 5 mg tablet (Eliquis) 5 mg PO BID #60 tabs 02/11/22 [Rx Last Taken Unknown] atorvastatin 10 mg tablet 10 mg PO DAILY #90 tabs 02/14/22 [Rx Last Taken Unknown] lisinopril 10 mg tablet 10 mg PO DAILY #90 tabs 02/14/22 [Rx Last Taken Unknown] midodrine 5 mg tablet 5 mg PO DAILY #90 tabs 02/14/22 [Rx Last Taken Unknown] tiotropium bromide 2.5 mcg/actuation mist for inhalation (Spiriva Respimat) 2 puff inhalation DAILY #4 grams 03/21/22 [Rx Last Taken Unknown] fluticasone propionate 50 mcg/actuation nasal spray,suspension (Flonase Allergy Relief) 2 spray intranasal DAILY #16 grams 05/22/22 [Rx Last Taken Unknown] metoprolol tartrate 50 mg tablet 50 mg PO BID #180 tabs 07/04/22 [Rx Last Taken Unknown] budesonide-formoterol HFA 160 mcg-4.5 mcg/actuation aerosol inhaler (Symbicort) See Rx Instructions .Route .COMPLEX #10.2 grams 07/31/22 [Rx Last Taken Unknown] Allergy/AdvReac Type Severity Reaction Status Date / Time clopidogrel [From Plavix] Allergy Hives Verified 08/22/22 13:28 Penicillins Allergy Hives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 Oxygen via nc due to desaturation. Please provide oxygen for patient due to [facility] ED discharge instructions. This order certifies that this patient is under my care and that I, or a Nurse Practitioner or Physician's Food Service Supervisor had a Cnmi-ld-Zrws Encounter with them. Based upon those findings, [...] Resume pre-hospital diet as tolerated. Discharge Follow-up: Artemio Ivan MD [address] [place], [place] [id number] Eugene Eagle MD [address] [facility] [id number] In 1 week Discharge Disposition: Patient will be discharged in stable condition. Discharge Time: Including assessment, planning, and medication reconciliation was greater than 35 min. Chris Montiel APRN-RENETTA completing Discharge Summary for Dr. Ovalles Please note portions of this note utilized DiJiPOP dictation software, please excuse any typographical or grammatical errors Associated attestation - Josr, Jose Ram MD - 02/26/2021 12:55 PM EDT Patient seen and examined. All testing reviewed. Discussed with STRUCTURAL METAL FABRICATOR APPRENTICE and agree with A/P. Feels back to baseline. AF, VS normal. Taking po well. Ambulated. Slight drop in hgb likely dilutional. WBC normal. Home on cefdinir, Zithromax, and prednisone taper. Close outpt follow up. Objective: Blood pressure 127/64, pulse 67, temperature 97.9 F (36.6 C), temperature source Oral, resp. rate 16, height 1.88 m (6' 2"), weight 67.3 kg (148 lb 4.8 oz), [...] Use Authorization (EUA) for the qualitative detection [id number] nucleic acid. TROPONIN I, HIGH SENSITIVITY Result [...] CARE 125 (H) 70 - 100 MG/DL Bicycle Repairman [phone] [facility] Result Value Ref [...] Jose Ovalles MD 02/26/2021 documented in this [facility]08-10[facility]2021 Hospital Discharge instructions* Discharge Instr - Activity* Sharri Gandih RN - 02/26/2021 11:11 AM EDT Resume home activity as tolerated. * Discharge Instr - Diet* Sharri Gandhi RN - 02/26/2021 11:11 AM EDT Resume home diet as tolerated. * Discharge Instr - Notify* Sharri Gandhi RN - 02/26/2021 11:34 AM EDT Return or worsening of symptoms. In the event of an emergency, call 911 or go to the nearest ER. * Attachments The following attachments cannot be sent through Care Everywhere. * COPD (Lao) * azithromycin (oral/injection) (Lao) * prednisone (Lao) [facility] [place] History and physical note* Chris Montiel, ROBIN-STRUCTURAL METAL FABRICATOR APPRENTICE - 02/26/2021 10:50 AM EDT [facility] History and Physical Examination 02/26/21 10:54 AM Chief Complaint: Chief Complaint Patient presents with Shortness of Breath Cough Abdominal Pain History of Present Illness: Patient is a 76 y.o. male presents to [facility] for evaluation of shortness of breath and abdominal pain. The patient was complaining of epigastric pain has been continuous for the last 4 days. Patient also reports he has been having increased shortness of breath and decreased by mouth intake.Patient presented to the emergency department at [facility]. Patient is currently taking Levaquin and prednisone [...] bullous changes worse in the lower lobes. Patienthas stable noncalcified triangular-shaped right lower lobe pulmonary nodule unchanged from previous. Patient has CT abdomen and pelvis done and showed suboptimal examination of soft tissue structuresand bowel without IV or oral contrast. Aorta [...] home at this time. He denies chest painor shortness of breath other than normal. Objective: [...] CORONARY STENT PLACEMENT 1996 BACK SURGERY N/A [id number] HEART CATHETERIZATION RELEASE CARPAL TUNNEL Right Social [...] (space doses 6 hours apart). 90 tablet 3Past Week at Unknown time nitroGLYCERIN 0.[address] 1 tablet under tongue every 5 minutes as needed for Chest pain. max = 3 doses. If CP persists after 3rd dose, call 911 25 tablet 0 Past Week at Unknown time oxygen gas Patient discharged from [facility] on 4 Liters of Oxygen via nc due to desaturation.Please provide oxygen for patient due to [facility] ED discharge instructions. This order certifies that this patient is under my care and that I, or a Nurse Practitioner or Physician's Food Service Supervisor had a Grfo-qd-[id number] Encounter with them. Based upon those findings, [...] Other reaction(s): Other (See Comments) Makes him "blackout" Clopidogrel Itching Review of Systems: Ten systems [...] prophylaxis with protonix and lovenox Chris Montiel JOB ANALYSIS MANAGER-STRUCTURAL METAL FABRICATOR APPRENTICE Completing history and physical for Dr. Ovalles 10:54 AM Please note Portions of this note utilized DiJiPOP dictation software, please excuse any typographical or grammatical errors Associated attestation - Jose Ovalles MD - 02/26/2021 12:54 PM EDT Patient seen and examined. All testing reviewed. Discussed with STRUCTURAL METAL FABRICATOR APPRENTICE and agree with A/P. Worsening symptoms despite Levaquin and steroids. CT's noted. Chronic changes only. Cr 1.5. CBC noted. IV steroids, Rocephin, Zithromax and nebs. IVF and follow labs. Objective: Blood pressure 127/64, pulse 67, temperature 97.9 F (36.6 C), temperature source Oral, resp. rate 16, height 1.88 m (6' 2"), weight 67.3 kg (148 lb 4.8 oz), [...] Use Authorization (EUA) for the qualitative detection [id number] nucleic acid. TROPONIN I, HIGH SENSITIVITY Result [...] CARE 125 (H) 70 - 100 MG/DL Bicycle Repairman [phone] [facility] Result Value Ref [...] Jose Ovalles MD 02/26/2021 documented in this [facility]08-09-2021 Emergency department Note* Nathalia Basurto RN - 02/25/2021 6:44 PM EDT Silva DOVER P[facility] taking to floor at this time * Erma Fritz RN - 02/25/2021 5:17 PM EDT Menu given to pt at this time * NADEEM Romero - 02/25/2021 12:09 PM EDT Patient assigned to room #[id number]. * NADEEM Romero - 02/25/2021 12:00 PM EDT Meal tray ordered for patient at this time. * NADEEM Romero - 02/25/2021 11:30 AM EDT PCC notified of admission at this time, waiting on a room assignment. * NADEEM Romero - 02/25/2021 11:[address] Ovalles called back at this time. * NADEEM Romero - 02/25/2021 11:[address] Ovalles at this time, he will call back when he is available. * Aubrey Zurita MD - 02/25/2021 9:02 AM EDT Emergency Department Report [facility] Service Date:.02/25/21 PCP: Artemio Ivan Chief Complaint: Chief Complaint Patient presents with Shortness of Breath Cough Abdominal Pain HPI Darin Breaux is a 76 y.o. male presents to the ED today due to shortness of breath and abdominalpain. The patient's complaining of epigastric pain is continuous for the last 4 days. He is also having increased shortness of breath and decreased by mouth intake. Patient said several visits to theER recently for D hydration as well as [...] Negative for behavioral problems, confusion, dysphoric mood, hallucinationsand self-injury. The patient is not nervous/anxious. Past Medical History: Past Medical History: Diagnosis Date COPD (chronic obstructive pulmonary disease) Emphysema lung Hypertension Lung disease Pacemaker Seizure 06/06/2020 Witnessed Past Surgical History: Past Surgical History: Procedure Laterality Date AAA REPAIR 01/31/2016 REMOVAL CATARACT (PEM) Bilateral 2012 PACEMAKER PLACEMENT 2002 battery change 2012 CORONARY STENT PLACEMENT 1996 BACK SURGERY N/A [id number] HEART CATHETERIZATION RELEASE CARPAL TUNNEL Right Allergies: Allergies Allergen Reactions Penicillins Hives and Swelling Tamsulosin Other reaction(s): Other (See Comments) Makes him "blackout" Clopidogrel Itching Medications: Patient's Medications New Prescriptions [...] call 911 OXYGEN GAS Patient discharged from [facility] on 4 Liters of Oxygen via nc due to desaturation.Please provide oxygen for patient due to [facility] ED discharge instructions. This order certifies that this patient is under my care and that I, or a Nurse Practitioner or Physician's Food Service Supervisor had a Biou-va-Gpwo Encounter with them. Based upon those findings, [...] Social Gatherings with Friends and Family: Attends Synagogue Services: Active Member of Clubs or Organizations: [...] chronic. The documented in the radiology report. HisEKG shows no acute changes. His labs show that he is at his baseline with some mild renal insufficiency and hypokalemia. Patient was given an IV site Medrol bolus and Dr. Broussard agreed to place under ob servation for acute bronchitis and exacerbation of COPD. We will start him on Rocephin and Zithromax Clinical Impression: 1. Acute bronchitis with chronic obstructive pulmonary disease (COPD) No follow-ups on file. New Prescriptions No medications on file Discontinued Medications No medications on file An After Visit Summary was printed and given to the patient with above information. . . Aubrey Zurita MD 02/25/21 1135 * Marycruz Lion RN - 02/25/2021 9:01 AM EDT Pt c/o shortness of breath and productive cough documented in this [facility]08-03-2021 Emergency department Note* Remedios Jones RN - 02/19/2021 11:03 AM EDT Corey Moran called and informed of patients discharge and that patient needs a ride home. Aware to call hospital when arrived and will bring patient out. * Remedios Jones RN - 02/19/2021 10:12 AM EDT Pt much more relaxed and calm, breathing easy and unlabored. Lungs diminshed in the bases with right posterior crackles in the upper lung. Pt aware of repeat lab work. * Remedios Jones RN - 02/19/2021 9:56 AM EDT Called [facility] regarding patient and receiving antibodies. ED staff states that patient was admitted to hospital and transfers to floor where I spoke with Simona DOVER who confirms that patient did receive antibodies yesterday. States she will fax over SEP. Dr. Wheeler aware. * Remedios Jones RN - 02/19/2021 9:41 AM EDT Family member Corey Moran calls in for patient update. Update provided at this time. States patient got something to "fight the Covid" at [facility] on Thursday that you can only get if you home. Dr. Wheeler made aware. * NADEEM Romero - 02/19/2021 9:01 AM EDT Positive Covid result received from [facility] at this time. * Remedios Jones RN - 02/19/2021 8:37 AM EDT Patient again yelling and screaming "help me I cant breath". Into room and encouraged patient to stop yelling and concentrate on his breathing. SPO2 increased from 87% to 96%. Pt states "Can't you please just get me a fan or open the door a little bit?" Again went over with the patient the he had acontagious virus that we do not want to spread not only to other patients but to staff as well. Pt again states that [facility] did not have the door closed when he was there just a curtain. Made aware the door will remained closed. * Remedios Jones RN - 02/19/2021 7:54 AM EDT Into medicate patient, pt yelling at arrival to room, SPO2 87% patient encouraged to stop yelling and breath in through nose and out mouth, when patient stops yelling SPO2 increases to 97%. Pt states"take me back to [facility], they dont close me in like you do here." Pt. Made aware due to being Covid + he should have been in isolation at [facility] also and he will be in isolation where ever he is at. Turned on TV for patient to help occupy patient time and take mind off things. As walking out doorpatient states "Can you keep the door open just a little? It feels so much better with the door open just a little." Again explained the reason for door being closed. * Remedios Jones RN - 02/19/2021 7:39 AM EDT Urinal provided at this time. * Jimmy Wheeler MD - 02/19/2021 7:15 AM EDT Emergency Department Report [facility] Service Date:.02/19/21 PCP: Artemio Ivan Chief Complaint: Chief Complaint Patient presents with Shortness of Breath HPI Darin Breaux is a 76 y.o. male presents to the ED with chief complaint of shortness of breath. Patient was recently diagnosed with coated. He is an oxygen dependent COPD patient as well. He stateshe is been getting worse. He was recently seen at this hospital on the and at [facility] Thursday. He states he is coughing and [...] CORONARY STENT PLACEMENT 1996 BACK SURGERY N/A [id number] HEART CATHETERIZATION RELEASE CARPAL TUNNEL Right Allergies: Allergies Allergen Reactions Penicillins Hives and Swelling Tamsulosin Other reaction(s): Other (See Comments) Makes him "blackout" Clopidogrel Itching Medications: Patient's Medications New Prescriptions [...] call 911 OXYGEN GAS Patient discharged from [facility] on 4 Liters of Oxygen via nc due to desaturation.Please provide oxygen for patient due to [facility] ED discharge instructions. This order certifies that this patient is under my care and that I, or a Nurse Practitioner or Physician's Food Service Supervisor had a Kjdf-oq-Jpwi Encounter with them. Based upon those findings, [...] Social Gatherings with Friends and Family: Attends Synagogue Services: Active Member of Clubs or Organizations: [...] block. No STEMI. There is baseline artifact. AK interval 216 ms. This EKG is compared [...] after discussion with them and confirming with [facility] he did receive the antibodies. At this time he is resting comfortably. He will be discharged homein stable condition and he does have a prescription for antibiotics along with steroids Clinical Impression: 1. Chronic obstructive pulmonary disease with acute exacerbation 2. COVID-19 No follow-ups on file. New Prescriptions No medications on file Discontinued Medications No medications on file An After Visit Summary was printed and given to the patient with above information. . Jimmy Wheeler MD 02/19/21 1052 * Rabia Toney RN - 02/19/2021 6:43 AM EDT Pt arrives via EMS c/o shortness of breath. Pt recently diagnosed with Covid. Woke up around 0500 with labored breathing. Solumedrol 125 mg IVP and Magnesium 2 g IV given by EMS BUSINESS LINE CONTROLLER. * Yane Floyd RN - 02/19/2021 6:35 AM EDT Bed: E009 Expected date: Expected time: Means of arrival: Comments: ems [facility] [place] Emergency department Note* Marycruz Lion RN - 02/15/2021 2:55 PM EDT Pt denies any symptoms with V tach * Aubrey Zurita MD - 02/15/2021 12:58 PM EDT Emergency Department Report [facility] Service Date:.02/15/21 PCP: Artemio Ivan Chief Complaint: Chief Complaint Patient presents with Fatigue HPI Darin Breaux is a 76 y.o. male presents [...] Negative for behavioral problems, confusion, dysphoric mood, hallucinationsand self-injury. The patient is not nervous/anxious. Past Medical History: Past Medical History: Diagnosis Date COPD (chronic obstructive pulmonary disease) Emphysema lung Hypertension Lung disease Pacemaker Seizure 06/06/2020 Witnessed Past Surgical History: Past Surgical History: Procedure Laterality Date AAA REPAIR 01/31/2016 REMOVAL CATARACT (PEM) Bilateral 2012 PACEMAKER PLACEMENT 2002 battery change 2012 CORONARY STENT PLACEMENT 1996 BACK SURGERY N/A [id number] HEART CATHETERIZATION RELEASE CARPAL TUNNEL Right Allergies: Allergies Allergen Reactions Penicillins Hives and Swelling Tamsulosin Other reaction(s): Other (See Comments) Makes him "blackout" Clopidogrel Itching Medications: Current Discharge Medication List [...] tablet, Refills: 3 Associated Diagnoses: Atherosclerosis of nisqu[place] coronary artery of [place] heart, angina presence unspecified; Old myocardial infarction; Hypertensive heart disease without congestive heart failure midodrine 5 MG tablet Take 1 tablet by mouth 3 times daily (space doses 6 hours apart). Qty: 90 tablet, Refills: 3 Associated Diagnoses: Syncope and collapse; Orthostatic hypotension oxygen gas Patient discharged from [facility] on 4 Liters of Oxygen via nc due to desaturation.Please provide oxygen for patient due to [facility] ED discharge instructions. This order certifies that this patient is under my care and that I, or a Nurse Practitioner or Physician's Food Service Supervisor had a Bhfg-mf-Xkvb Encounter with them. Based upon those findings, [...] Syncope and collapse; Orthostatic hypotension !! DISABILITY PLACARD Disability placard end date 09/19/2025 Qty: 1 Each, Refills: [...] Social Gatherings with Friends and Family: Attends Synagogue Services: Active Member of Clubs or Organizations: [...] 98 % 02/15/21 1246 1.88 m (6' 2") 66 kg (145 lb 8 oz) 02/15/21 [...] Discharge him home with early follow-up with hisprimary physician. Patient stable at this time and discharged in good condition Clinical Impression: 1. Dehydration No follow-ups on file. Current Discharge Medication List Current Discharge Medication List An After Visit Summary was printed and given to the patient with above information. . . Aubrey Zurita MD 02/15/21 1617 * Marycruz Lion RN - 02/15/2021 12:51 PM EDT Pt c/o feeling weak for several days documented in this [facility]07-20-2021 History of Present illness Narrative* Artemio Ivan MD - 02/05/2021 9:30 AM EDT PROGRESS NOTE SUBJECTIVE HPI The [...] on both sides Patient follows up with wood window and door craftsman Dr. Lee forhis COPD and the hypoxemic respiratory failure . Patient's blood pressure is being managed by his ca rdiologist and as the patient had hypotension and he restarted him on Midodrine 5 mg 3 times daily.. Patient continues to smoke cigarettes less than 1/2 a pack(4 or 5) per day which he started at theage of 10. Review of Systems Constitutional: Negative for fever, chills, no fatigue. HENT: Positive for nasal congestion, pressure and some rhinorrhea Negative for hearing loss, ear pain, nosebleeds, congestion, sore throat. Eyes: Negative for blurred vision, double vision, eye pain,eye discharge, eye redness and eye watering. Cardiovascular: [...] resp. rate 16, height 1.88 m (6' 2"),weight 68.5 kg (151 lb 1.6 oz), SpO2 [...] 1 followed by 1 tablet daily for 4more days. Start the patient on fluticasone propionic [...] on file for this visit. Signed by: Artemio Ivan MD documented [facility] this [facility] [place] History of Present illness Narrative* Michelle Ortiz RCP - 01/18/2021 9:30 PM EDT ..Patient arrived at 2120. He was roomed in bed two. The following is attached to the encounter: Test Data/Misc documented in this encounterKing[facility] [place] History of Present illness Narrative* Nan Guerrero LPN - 01/15/2021 1:30 PM EDT Nurse Note: Review of Systems Constitutional: Negative [...] liters____ patient is benefiting from oxygen use. [facility] Most recent CT 12/01/20 Most recent PFT- 12/31/20 Symptoms include: Increase in shortness of breath- Yes Dyspnea upon exertion- Yes Dyspnea at rest- Yes Cough- productive Yes Pt presents for 6 week follow up. States he feels pretty good today but the heat and long periods of walking increase his shortness of breath. Medication refill? No * Eugene Ch MD - 01/15/2021 1:30 PM EDT Patient is a 76 y.o. male who [...] 1 tablet by mouth daily., Disp: 90 tablet,Rfl: 3 atorvastatin 10 MG tablet, Take 1 tablet by mouth daily., Disp: 90 tablet, Rfl: 1 budesonide-formoterol (Symbicort) 160-4.5 mcg/puff Aerosol inhaler, Inhale 2 puffs every 12 hours.,Disp: 10.2 g, Rfl: 3 DISABILITY PLACARD, Disability [...] mouth 2 times daily., Disp: 180 tablet, Rfl:3 midodrine 5 MG tablet, Take 1 tablet by mouth daily., Disp: 90 tablet, Rfl: 3 nitroGLYCERIN 0.4 MG tablet SL, Place 1 tablet under tongue every 5 minutes as needed for Chest pain. max = 3 doses. If CP persists after 3rd dose, call 911, Disp: 25 tablet, Rfl: 0 oxygen gas, Patient discharged from [facility] on 4 Liters of Oxygen via nc due to desaturation. Please provide oxygen for patient due to [facility] ED discharge instructions. This order certifies that this patient is under my care and that I, or a Nurse Practitioner or Physician's Food Service Supervisor had a Nbtg-zf-Qnpz Encounter with them. Based upon those findings, the equipment/supplies listed above are m edically necessary., Disp: 1 Device, Rfl: 0 roflumilast [...] CORONARY STENT PLACEMENT 1996 BACK SURGERY N/A [id number] HEART CATHETERIZATION RELEASE CARPAL TUNNEL Right Social History Tobacco Use Smoking status: Current Every Day Smoker Packs/day: 0.25 Smokeless tobacco: Never Used Substance Use Topics Alcohol use: No Family History Problem Relation Age of Onset Dysrhythmia Mother Dysrhythmia Brother Myocardial Infarction Brother Allergies Allergen Reactions Penicillins Hives and Swelling Tamsulosin Other reaction(s): Other (See Comments) Makes him "blackout" Clopidogrel Itching Review of Systems Constitutional: Negative [...] liters____ patient is benefiting from oxygen use. [facility] Most recent CT 12/01/20 Most recent PFT- [...] lb 14.4 oz) Height: 1.88 m (6' 2") Physical Exam Vitals and nursing note reviewed. [...] Cigarette nicotine dependence with nicotine-induced disorder F17.219 [place] SMOKE/TOBACCO COUNSELING3-10 MIN 5. Pulmonary nodules R91.8 6. Secondary [...] arteriovascular disease, including CAD, PVD or stroke areincreased with continued smoking); 3 minutes spent; current smoker: yes; ready to quit:no; options,aids, discussed with pt. Relevant Orders [place] SMOKE/TOBACCO COUNSELING 3-10 MIN COPD (chronic obstructive [...] Mid-Expiratory or Small Airways Flow Rate FEF 25- 75% 0.28 L/s at 11% predicted value. PEF [...] (vacuum, wash beddings frequently, etc). May take vyuk-onw-awtgcwa Zyrtec (or xyzal, gino, claritin) as needed [...] prev.; rinse mouth after inhaler use, especially steroidinhalers - Smoking cessation - monitor PFT prn, [...] notes, results, interpreted tests, imaging today before seeingthe pt; reviewed and discussed w/ pt, questions answered - 12/31/2020 PFT: Severe Obstruction/COPD; possibly with mild emphysema; with possible element of reversible obstruction (reactive airway disease, asthma). TLC NL. DL/VA NL. --- FEV1 to FVC ratio is 32%. FEV1 1.30 L at 36% predicted value. FVC 4.08 L at 82% predicted value. Maximal Mid-Expiratory or Small Airways Flow Rate FEF 25- 75% 0.28 L/s at 11% predicted value. PEF [...] (vacuum, wash beddings frequently, etc). May take sznx-sin-qmwmftb Zyrtec (or xyzal, gino, claritin) as needed [...] spO2 94%. - Dyspnea: SEVERE, highest Mod. Ventura Dyspnea Scale Score: 10/10. IMP: Exercise limitation: [...] above report was entered in part using DiJiPOP voice recognition medical dictation software. Although I have reviewed this report for accuracy, certain words and phrases may not be entered as intended. Please excuse typographical and grammatical errors.) Eugene Lee MD, MPH, [facility] Pulmonary/Critical Care Medicine 01/15/2021 documented in this [facility]06-29-2021 Miscellaneous Notes* Assessment & Plan Note - Eugene Ch MD - 01/15/2021 1:10 PM EDT Associated Problem(s): ROMEO (obstructive sleep apnea) Snoring, poss. Apneas, poor sleep, some excessive daytime somnolence - Sleep study; CPAP, Sleep Clinic referral, as indic. - Reinforced: adverse consequences of ROMEO, compliance, side sleeping if feasible, sleep hygiene (and avoid/minimize alcohol, sedative/respiratory depressant meds, nicotine/smoking cessation), not driving/operating machinery while sleepy. * Assessment & Plan Note - Eugene Ch MD - 01/15/2021 1:09 PM EDT Associated Problem(s): Secondary pulmonary arterial hypertension (Resolved 01/15/2021) May develop sec PH related to cardiopulm dis. - 12/31/2020 Echocardiogram reviewed: satisfactory; normal function (LVEF), no overt pulm HTN (RVSP 31). Stable c/w 05/2020. - monitor Echo as indic - optimize underlying conditions - consider PSG, if indic * Assessment & Plan Note - Eugene Ch MD - 01/15/2021 1:07 PM EDT Associated Problem(s): Pulmonary nodules - CTPE 11/2020: [...] answered; and pt stated understanding and agreement. * Assessment & Plan Note - Eugene Ch MD - 01/15/2021 1:05 PM EDT Associated Problem(s): COPD (chronic obstructive pulmonary disease) [...] Mid-Expiratory or Small Airways Flow Rate FEF 25- 75% 0.28 L/s at 11% predicted value. PEF [...] (vacuum, wash beddings frequently, etc). May take xghf-koq-ysjrpqg Zyrtec (or xyzal, gino, claritin) as needed [...] prev.; rinse mouth after inhaler use, especially steroidinhalers - Smoking cessation - monitor PFT prn, as indic. - monitor imaging prn, CXR prn (CT Chest as indicated) - Pulmonary rehab program, if feasible; rec to stay active - Influenza, pneumococcal, COVID19 vaccines recommended, updated * Assessment & Plan Note - Eugene Ch MD - 01/15/2021 1:04 PM EDT Associated Problem(s): Cigarette nicotine dependence with nicotine-induced disorder Smoking Cessation Counseling (including rationale, help that can be provided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 By Contact Referred To Contact New Request Pulmonary Disease Diagnoses COPD with acute exacerbation Jeannine Fuentes MD [address] [place] [address] Roberto Carlos Townsend MD [address] [phone] Status Reason Specialty Diagnoses / Procedures Referred By Contact Referred To Contact New Request Procedures ECG Dandy Johnson MD [address] [place] [address] Status Reason Specialty Diagnoses / Procedures Referred By Contact Referred To Contact New Request Procedures ECG Dave Espinal MD [address] [place] [address] Status Reason Specialty Diagnoses / Procedures Referred By Contact Referred To Contact New Request Diagnoses ROMEO (obstructive sleep apnea) Procedures SLEEP STUDY - TITRATION Eugene Ch MD [address] [place] [address] Status Reason Specialty Diagnoses / Procedures Referred By Contact Referred To Contact New Request Diagnoses ROMEO (obstructive sleep apnea) Procedures SLEEP STUDY - DIAGNOSTIC Eugene Ch MD [address] [place] [address] Status Reason Specialty Diagnoses / Procedures Referred By Contact Referred To Contact New Request Diagnoses Pulmonary nodules Centrilobular emphysema Procedures CT CHEST WITHOUT CONTRAST CHG DIAGNOSTIC COMPUTED TOMOGRAPHY THORAX W/O CNTRST Eugene Ch MD [address] [place] [phone] Status Reason Specialty Diagnoses / Procedures Re ferred By Contact Referred To Contact New Request Diagnoses Secondary pulmonary arterial hypertension Procedures ECHOCARDIOGRAM AK ECHO HEART XTHORACIC,COMPLETE W DOPPLER Eugene Ch MD [address] [place] [phone] Status Reason Specialty Diagnoses / Procedures Referred By Contact Referred To Contact New Request Diagnoses Chronic obstructive pulmonary disease, unspecified COPD type Procedures PFT COMPLETE Eugene Ch MD [address] [place], [place] [phone] Status Reason Specialty Diagnoses / Procedures Referred By Contact Referred To Contact Auth Not Needed Diagnoses Chronic obstructive pulmonary disease, unspecified COPD type Procedures EXERCISE-6 MIN. WALK Eugene Ch MD [address] [place] [phone] Status Reason Specialty Diagnoses / Procedures Referred By Contact Referred To Contact New Request Pharmacy Diagnoses Cigarette nicotine dependence with nicotine-induced disorder Eugene Ch MD [address] [place] [phone] Status Reason Specialty Diagnoses / Procedures Referred By Contact Referred To Contact Closed Pulmonary Disease Diagnoses Chronic obstructive pulmonary disease, unspecified COPD type Procedures EXERCISE-6 MIN. WALK Eugene Ch MD [address] [place], [place] [phone] [facility] [address] [place], [place] [phone] Status Reason Specialty Diagnoses / Procedures Referred By Contact Referred To Contact Closed Cardiovascular Medicine Diagnoses Secondary pulmonary arterial hypertension Procedures ECHOCARDIOGRAM AK ECHO HEART XTHORACIC,COMPLETE W DOPPLER Eugene Ch MD [address] [place], [place] [phone] [facility] [address] [place] [address] Status Reason Specialty Diagnoses / Procedures Referred By Contact Referred To Contact New Request Pulmonary Disease Diagnoses Centrilobular emphysema Chronic obstructive pulmonary disease, unspecified COPD type Eugene Ch MD [address] [place], [place] [phone] Specialty Diagnoses / Procedures Referred By Contac t Referred To Contact Procedures ECG Aubrey Zurita MD [address] [place] [address] Referral ID Status Reason Start Date Expiration Date V isits Requested Visits Authorized [id number] New Request 02/18/2021 03/15/2022 1 1 Specialty Diagnoses / Procedures Referred By Contac t Referred To Contact Procedures ECG Dylon Mccain MD [address] [place] [address] Referral ID Status Reason Start Date Expiration Date V isits Requested Visits Authorized [id number] New Request 02/19/2021 03/16/2022 1 1 Specialty Diagnoses / Procedures Referred By Contac t Referred To Contact Social Work Diagnoses Acute bronchitis with chronic obstructive pulmonary disease (COPD) Acute on chronic respiratory failure with hypoxia Chris Montiel, JOB ANALYSIS MANAGER-STRUCTURAL METAL FABRICATOR APPRENTICE [address] [place] [address] Referral ID Status Reason Start Date Expiration Date V isits Requested Visits Authorized [id number] New Request 02/26/2021 03/23/2022 1 1 Specialty Diagnoses / Procedures Referred By Contac t Referred To Contact Procedures INPATIENT ADMISSION NOTIFICATION Jose Ovalles MD [address] [place] [address] Referral ID Status Reason Start Date Expiration Date V isits Requested Visits Authorized [id number] New Request 02/25/2021 03/22/2022 1 1 Referral ID Status Reason Start Date Expiration Date V isits Requested Visits Authorized [id number] New Request 02/25/2021 03/22/2022 1 1 Specialty Diagnoses / Procedures Referred By Contac t Referred To Contact Procedures ECG Jeannine Fuentes MD [address] [place] [address] Referral ID Status Reason Start Date Expiration Date V isits Requested Visits Authorized [id number] New Request 10/26/2023 11/19/2024 1 1 Referral ID Status Reason Start Date Expiration Date V isits Requested Visits Authorized [id number] New Request 12/15/2023 01/08/2025 1 1 Specialty Diagnoses / Procedures Referred By Contac t Referred To Contact Cardiology Diagnoses CAD (coronary artery disease) Procedures Transthoracic echocardiogram (TTE) complete with contrast, bubble, strain, and 3D PRN AK ECHO TTHRC R-T 2D W/WOM-MODE COMPL SPEC&COLR D AK TTE W OR WO FOL WCON,DOPPLER Mayor, Amado, MD [address] [place] [address] Referral ID Status Reason Start Date Expiration Date Visits Re quested Visits Authorized [id number] Closed 01/19/2024 01/18/2025 1 1 Specialty Diagnoses / Procedures Referred By Contac t Referred To Contact Cardiology Diagnoses CAD (coronary artery disease) Bruit Procedures Vascular US carotid artery duplex bilateral Vascular US carotid artery duplex bilateral Amado Vargas MD [address] [place] [address] Referral ID Status Reason Start Date Expiration Date V isits Requested Visits Authorized [id number] Pending Review 01/19/2024 01/18/2025 1 1 Specialty Diagnoses / Procedures Referred By Contac t Referred To Contact Procedures ECG Dave Espinal MD [address] [place] [phone] Referral ID Status Reason Start Date Expiration Date V isits Requested Visits Authorized [id number] New Request 04/19/2024 05/14/2025 1 1 Assessments Diagnosis Acute exacerbation of chroni c obstructive pulmonary disease (COPD) - Primary Obstructive chronic bronchitis with exacerbation Diagnosis Symptomatic sinus bradycardia- Primary Other specified cardiac dysrhythmias Diagnosis Abnormal electrocardiogram Nonspecific abnormal electrocardiogram (ECG) (EKG) Cardiac pacemaker in situ Atherosclerosis of nisqually coronary artery of n[place]qually heart, angina presence unspecified Diagnosis Chest pain, [...] as acute or chronic Diagnosis Atherosclerosis of n[place]qually coronary artery of n[place] heart, angina presence unspecified Old myocardial infarction [...] Peripheral vascular disease, unspecified Diagnosis Atherosclerosis of n[place]qually coronary artery of nisqu[place] heart, angina presence unspecified- Primary Old myocardial [...] fatigue History of Present Illness * Deyanira Greenberg, JOB ANALYSIS MANAGER-SENIOR QUALITY ANALYST - 11/08/2018 10:30 AM EDT DUAL CHAMBER [...] months. ANUEL Sterling documented in this encounter* Artemio Ivan MD - 07/11/2019 2:30 PM EST PROGRESS NOTE SUBJECTIVE HPI The patient is a 74 y.o.male who presents today to establish as a new patient to this practice. Patient relocated from [facility] and he was under the care of his primary care physician for hypertension, COPD and hyperlipidemia. Patient also has a history of coronary artery disease and he was seen by medical donation professional at [facility]. Patient has a dual-chamber [employer] e pacemaker and patient sees medical donation professional Dr. Watson at [facility]. . Past surgical history include the hernia [...] resp. rate 16, height 1.88 m (6' 2"),weight 70.6 kg (155 lb 9.6 oz), SpO2 [...] previous physician. Patient to follow up with medical donation professional Dr. Watson as scheduled. Return in 2 [...] on file for this visit. Signed by: Artemio Ivan MD documented in this encounter* Artemio Ivan MD - 09/22/2019 11:30 AM EST PROGRESS [...] when he coughs. Patient was evaluated at [facility] ED on 08/19/2019 for productive cough and [...] resp. rate 16, height 1.88 m (6' 2"),weight 71.2 kg (157 lb), SpO2 96 %., [...] next visit. Patient to follow up with medical donation professional Dr. Watson as scheduled. Return in 2 [...] on file for this visit. Signed by: Artemio Ivan MD documented in this encounter* Artemio Ivan MD - 04/17/2020 11:30 AM EDT PROGRESS [...] next visit. Patient to follow up with medical donation professional Dr. Watson as scheduled. . We will [...] on file for this visit. Signed by: Artemio Ivan MD documented in this encounter* Roberto Carlos Townsend MD - 05/21/2020 3:45 PM EST HPI Darin Breaux is a 75 y.o. male being [...] phlegm. He has wheezing. He was at [facility] ED recently with acute exacerbation of his [...] Other reaction(s): Other (See Comments) Makes him "blackout" Clopidogrel Itching Outpatient Medications Prior to Visit [...] file Gets together: Not on file Attends quaker service: Not on file Active member of [...] No Social History Narrative Not on file Needle Loom Operator Assessment Oxygen Use- 3L at night Most [...] lb 8 oz) Height: 1.88 m (6' 2") Physical Exam Vitals signs and nursing note [...] Park LPN - 05/21/2020 3:45 PM EST Needle Loom Operator Assessment Oxygen Use- 3L at night Most [...] went to ER. documented in this encounter* Artemio Ivan MD - 06/21/2020 11:30 AM EST PROGRESS NOTE SUBJECTIVE HPI The patient is a 75 y.o.male who presents today for follow up after he was seen twice at [facility] ED on 06/06/2020 for possible seizure. Patient [...] resp. rate 18, height 1.88 m (6' 2"),weight 72.2 kg (159 lb 1.6 oz), SpO2 [...] Use Authorization (EUA) for the qualitative detection [id number] nucleic acid. CBC, EDIF, PLATELET Collection Time: [...] Use Authorization (EUA) for the qualitative detection [id number] nucleic acid. ASSESSMENT: No diagnosis found. PLAN: Review of the records from [facility] ED regarding patient's evaluation on 06/06/2020 and [...] to quit smoking. Patient to follow-up with medical donation professional Dr. Watson as scheduled for 06/22/2020. Patient [...] on file for this visit. Signed by: Artemio Ivan MD documented in this encounter* Jovan Irwin [...] pacemaker and follows with Dr. Watson of [facility]. Dr. Watson recently increased the patient's Lopressor. The patient has not had a Tilt Table Test. The patient recently had a rather normal stress test with Dr. Watson. Seizure Risk Factors 1. / Issues -- N 2. Febrile Seizures -- N 3. Head Trauma -- N 4. SENIOR QUALITY ANALYST Infection -- N 5. Family History of Epilepsy -- N Seizure Testing 1. MRI Brain -- Has pacemaker 2. CT Head -- Y (May 2020 -- "unremarkable") 3. Routine EEG -- N 4. EMU/LTM -- N AED History None OARRS-- reviewed Labs & Studies Extensive time was taken to review all available records received with the new patient referral. Inaddition, extensive time was taken to query other [facility] databases, which include [employer], [employer], [employer], and radiology PACS systems. 06/06/2020 1:41 PM [...] mg, Nebulization, EVERY 6 HOURS NEEDED 09/22/19 Artemio Ivan MD albuterol 108 (90 Base) MCG/ACT Aero Soln inhaler 1-2 puffs, Inhalation, EVERY 6 HOURS NEEDED 04/17/20 Artemio Ivan MD Aspirin (ECOTRIN LOW STRENGTH) [address] tablet 81 mg, Oral, DAILY 10/21/18 Luis Watson II, MD atorvastatin 10 MG tablet 10 mg, Oral, DAILY 04/17/20 Artemio Ivan MD azithromycin 250 MG tablet Take 500 mg X1 then 250 mg PO Once Daily X 4 days 06/19/20 06/23/20 Latricia Teran PA-C benzonatate (Tessalon Perles) 100 MG capsule 100 mg, Oral, 3 TIMES DAILY NEEDED 06/19/20 Edis Aguila PA-C budesonide-formoterol (Symbicort) 160-4.5 mcg/puff Aerosol inhaler 2 puffs, Inhalation, EVERY 12 HOURS 04/17/20 Artemio Ivan MD ipratropium-albuterol 0.5-2.5 (3) MG/3ML nebulizer solution 3 mL, Nebulization, 4 TIMES DAILY 05/03/20 Jeannine Fuentes MD metoprolol 25 MG tab regular release 12.5 mg, Oral, 2 TIMES DAILY 04/17/20 Artemio Ivan MD midodrine 5 MG tablet 5 mg, Oral, DAILY 04/17/20 Artemio Ivan MD nitroGLYCERIN 0.4 MG tablet SL 0.4 mg, Sublingual, EVERY 5 MINUTES NEEDED, max = 3 doses. If CP persists after 3rd dose, call 911 01/21/19 Luis Watson II, MD Pramipexole Dihydrochloride 0.125 MG tablet Take 1 tab 3 to 4 hours prior to bedtime 04/17/20 Artemio Ivan MD predniSONE 20 MG tablet 20 mg, Oral, 2 TIMES DAILY 06/19/20 Edis Teran PA-C tiotropium (Spiriva Respimat) 2.5 MCG/ACT Aero Soln inhaler 2 puffs, Inhalation, DAILY 04/17/20 MD Brenda Allergies Allergen Reactions Penicillins Hives and Swelling Tamsulosin Other reaction(s): Other (See Comments) Makes him "blackout" Clopidogrel Itching Social History Socioeconomic History Marital [...] file Gets together: Not on file Attends quaker service: Not on file Active member of [...] resp. rate 18, height 1.88 m (6' 2"), weight 71.7 kg (158 lb). Physical Exam [...] I recommend that he follow-up with his medical donation professional and be considered for a Tilt Table [...] which half or more was dedicated to bzpt-cy-eewv counseling of the problems/issues and coordination of all care. documented in this encounter* Evelina España LPN - 07/09/2020 11:30 AM EST Upon check out, patient and granddaughter requested an order for a portable oxygen concentrator as his current portable tanks are "tiny". I informed them I would pass along the information to nursingto fax an order. * Roberto Carlos Townsend MD - 07/09/2020 11:30 AM EST SUBJECTIVE: Darin Breaux is a 75 y.o. male being [...] Symbicort (160-4.5 mcg) and Spiriva at home. Needle Loom Operator Assessment Oxygen Use- 2 liters at nighttime [facility] Symptoms include : Increase in shortness of breath- No Dyspnea upon Exertion-Yes Dyspnea at rest-No Chest pain-Yes " it comes and goes " Cough-yes productive light yellow to green phelgm [...] resp. rate 18, height 1.88 m (6' 2"), weight 71.7 kg (158 lb). Lungs: Decreased [...] to exercise precaution regarding COVID pandemic * Acacia Green - 07/09/2020 11:30 AM EST Needle Loom Operator Assessment Oxygen Use- 2 liters at nighttime [facility] Symptoms include : Increase in shortness of breath- No Dyspnea upon Exertion-Yes Dyspnea at rest-No Chest pain-Yes " it comes and goes " Cough-yes productive light yellow to green phelgm Wheezing-Yes Swelling LE-No Hemoptysis-No documented in this encounter* Erma Garibay APRN-CNP - 08/08/2020 9:00 AM EST FINDINGS: PPM [...] to <200. Safety margins maintained. AP 76%, MOBILE EQUIPMENT MECHANIC 1.3%. AF <1% of the time. HR histograms reviewed and WNL. No programming changes were made. Return to office in 8 weeks for battery check. For full summary, see [employer] attachment under "Procedures" tab under "Device Evaluation" for this date. If PDF from engineering programmer and/or remote monitoring website is needed, please look in [employer] or contact [facility]. documented in this encounter* Luis Watson II, MD - 01/19/2019 2:20 PM EDT Chief Complaint follow up from testing in November HPI Darin Breaux is a 74 y.o. male who was seen by [facility] today for follow up after havingdiagnostic [...] 158/98, pulse 80, height 1.88 m (6' 2"), weight 67.7 kg (149 lb 3.2 oz), [...] follow up from testing in November HPI Darin Breaux is a 74 y.o. male who [...] and shows no abnormalities. Presenting rhythm is AP-MOBILE EQUIPMENT MECHANIC AT 60 bpm. Underlying rhythm is SR [...] thresholds WNL. Safety margins maintained. AP 76%, MOBILE EQUIPMENT MECHANIC 1.1%. AF 1.6% of the time. On ASA only. HR histograms reviewed and show majority of time HR is between 60 to 90 bpm, very rarely 100-140 bpm. No programming changes were made. Return to office in [address] check[address] Watson notified. For full summary, see [employer] attachment under "Procedures" tab under "Device Evaluation" for this date. If PDF from engineering programmer and/or remote monitoring website is needed, please look in [employer] or contact [email or web address]. documented in this encounter* Artemio Ivan MD - 09/20/2020 11:00 AM EST PROGRESS NOTE SUBJECTIVE HPI The patient is a 75 y.o.male who presents today for follow up of hyperlipidemia and anemia Patient says that he is doing pretty good today. Patient says that his blood pressure is high at home with systolic blood pressure greater than 160. Patient's blood pressure is being managed by his medical donation professional and as the patient had hypotension he restarted him on Midodrine 5 mg 3 times daily which was discontinued may be in the ED. Patient has been having some chronic chest pressure for several months and patient has been seeing medical donation professional Dr. Watson and he had a Holter [...] resp. rate 16, height 1.88 m (6' 2"), weight 72.7 kg (160 lb 3.2 oz), [...] PLAN: Review of the records from his medical donation professional Dr. Watson at [facility] regarding his evaluation on 08/29/2020, his plan of care and recommendations. Patient needs to follow up with him as scheduled. Reviewed the records from his wood window and door craftsman at [facility]. Continue current medications including all inhalers [...] on file for this visit. Signed by: Artemio Ivan MD documented in this encounter* Uzma Gilbert, JOB ANALYSIS MANAGER-STRUCTURAL METAL FABRICATOR APPRENTICE - 12/20/2018 9:10 AM EDT HPI Darin Breaux is a 73 y.o. male presenting [...] resp. rate 16, height 1.88 m (6' 2"), weight 68.6 kg (151 lb 3.2 oz), [...] WANG Sinclair 12/20/2018 documented in this encounter* Artemio Ivan MD - 05/01/2020 10:30 AM EDT PROGRESS NOTE SUBJECTIVE HPI The patient is a 75 y.o.male who presents today for follow up after he was evaluated at the [facility] ED on 04/25/2020 for acute exacerbation of COPD.. Patient went to [facility] in ED with shortness of breath, productive [...] resp. rate 16, height 1.88 m (6' 2"),weight 70.3 kg (154 lb 14.4 oz), SpO2 [...] F17.200 PLAN: Review of the records from [facility] ED regarding patient's evaluation on 04/25/2020 including their management, labs, imaging, discharge medications and discharge instructions. Patient to continue all inhalers as prescribed including Spiriva Respimat. Medications were reviewed with the patient.Advised the patient to quit smoking. . Patient to rinse his mouth after taking the Symbicort. Patien t to complete prednisone as ordered at ED. Return in June 2020 as scheduled or sooner when necessary. No orders of the defined types were placed in this encounter. Discontinued Medications: There are no discontinued medications. Requested Prescriptions No prescriptions requested or ordered in this encounter There are no Patient Instructions on file for this visit. Signed by: Artemio Ivan MD documented in this encounter* Erma Garibay, JOB ANALYSIS MANAGER-STRUCTURAL METAL FABRICATOR APPRENTICE - 10/31/2020 9:30 AM EDT FINDINGS: PPM programming evaluation. Battery is nearing JASWINDER indices (0.25-0.5 years left, 2.71V). PPM site examined and shows no abnormalities. Presenting rhythm is AP-VS at 60 bpm. Underlying rhythm is bradycardia with AP-VS at 30 bpm. Episode log indicates that there were 0 VHR and 121 AMS episodes since last interrogation. Of the 121 AMS episodes, there is not one EGM to review to verify whether or not this is true AF. Impedance, pacing, and sensing thresholds WNL. Safety margins maintained. AP 70%, MOBILE EQUIPMENT MECHANIC 1.4%. AF 1.3% of the time. On [...] For full summary, see PaceArt attachment under "Procedures" tab under "Device Evaluation" for this date. If PDF from engineering programmer and/or remote monitoring website is needed, please look in PaceArt or contact [facility]. documented in this encounter Discharge Instructions * Instructions* Jeannine Fuentes MD - 05/03/2020 Use your aerosol machine with DuoNeb every 4-5 hours while awake for the next 5 days. Continue your steroids as previously prescribed. Call Dr. Townsend tomorrow morning and schedule follow-up as soon as possible. He is a wood window and door craftsman (lung doctor). Dial 911 or return to the ER immediately if you having increasing shortness of breath or feel worsein any way. * Attachments The following attachments cannot be sent through Care Everywhere. * Chronic Obstructive Pulmonary Disease (COPD) ([facility]) (Lao) * Chest Pain (Lao) * Weakness: Generalized (Lao) documented in this encounter* Instructions* Pily Cuellar [...] * Chronic Obstructive Pulmonary Disease (COPD) ([facility]) (Lao) * Smoking Cessation: Health Benefits: General Info (Lao) documented in this encounter* Attachments The following attachments cannot be sent through Care Everywhere. * Chest Pain What to Do if You Have ([facility]) (Lao) documented in this encounter* Attachments The following attachments cannot be sent through Care Everywhere. * Bronchitis with Inhaler ([facility]) (Lao) documented in this encounter* Attachments The following attachments cannot be sent through Care Everywhere. * Seizures ([facility]) (Lao) * UTI (Urinary Tract Infection): Male (Lao) documented in this encounter* Attachments The following attachments cannot be sent through Care Everywhere. * Diarrhea (Lao) documented in this encounter* Attachments The following attachments cannot be sent through Care Everywhere. * Chronic Obstructive Pulmonary Disease (COPD) ([facility]) (Lao) documented in this encounter Instructions * Patient Instructions* Jovan Irwin MD - 06/25/2020 2:20 PM EST I suspect the episodes are fainting (syncope) or near fainting (near syncope). Some people shake or jerk during a fainting episode. These are called syncopal convulsions, which are not seizures. documented in this encounter* Patient Instructions* Uzma Gilbert, JOB ANALYSIS MANAGER-STRUCTURAL METAL FABRICATOR APPRENTICE - 12/20/2018 9:10 AM EDT What Is [...] described above even worse. Date Last Reviewed: 11/18/[id number] [employer]. [address] [place] [address], [place] [address]. All rights reserved. This information is not intended as a substitute for professional medical care. Always follow yourhealthcare professional's instructions. documented in this encounter Chief Complaint and Reason for Visit Chief Complaint 6 m fu BP ISSUES, COUGHING UP GREEN MUCOUS NEW ENROLLEE (RECS. SCANNED) CAROTID ARTERY STENOSIS CAROTID ARTERY STENOSIS COPD CHRONIC OBSTRUCTIVE PULMONARY DISEASE 6 M FU Reason for Visit Carotid artery steno sis Presence of stent in coronary artery Atherosclerotic heart disease of [place] coronary artery without angina pectoris Essential hypertension Mixed hyperlipidemia Presence of permanent cardiac pacemaker Sick sinus syndrome Symptomatic bradycardia Bilateral carotid artery stenosis Emphysema lung Presence of stent in coronary artery Atherosclerotic heart disease of [place] coronary artery without angina pectoris COPD (chronic obstructive pulmonary disease) Essential hypertension Presence of permanent cardiac pacemaker Atrial tachycardia First degree AV block Presence of permanent cardiac pacemaker Sick sinus syndrome Symptomatic bradycardia COVID-19 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 SCANNED) CAROTID ARTERY STENOSIS CAROTID ARTERY STENOSIS COPD CHRONIC OBSTRUCTIVE PULMONARY DISEASE 6 M FU CHRONIC OBSTRUCTIVE PULMONARY DISEASE DAILY PERSISTENT HEADACHE Reason for Visit Carotid artery steno sis Presence of stent in coronary artery Atherosclerotic heart disease of [place] coronary artery without angina pectoris Essential hypertension Mixed hyperlipidemia Presence of permanent cardiac pacemaker Sick sinus syndrome Symptomatic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 surgeon. Do not crush or break. Do not crush, chew, or split. prochlorperazine (Compazine) injection 5 mg 5 mg, IntraVENous, Every 6 hours PRN, nausea, vomiting, Starting on Thu02/03/24 at 0728 Linked Groups Order Group 1: magnesium sulfate IVPB premix 2,000 mgJump to med 2,000 mg, IntraVENous, at 25 mL/hr, Administer over 2 Hours, As needed, Per Magnesium Replacement Protocol, Starting on Thu02/02/24 at 1210, Recovery & On Unit, Mg Lab Replacement Action 1.4-1.6 2 gram IVPB x 1 doses 1.0-1.3 4 gram IVPB x 1 doses Less than 1.0 CALL PHYSICIAN and 4 gram IVPB x 1 doses Infuse at 1 gram/hr. Repeat Mag level next AM. Not for use in Patients with CrCl less than 30 mL/min. Or magnesium sulfate IVPB 4,000 mgJump to med 4,000 mg, IntraVENous, at 25 mL/hr, Administer over 4 Hours, As needed, Per Magnesium Replacement Protocol, Starting on Thu02/02/24 at 1210, Recovery & On Unit, Mg Lab Replacement Action 1.4-1.6 2 gram IVPB x 1 doses 1.0-1.3 4 gram IVPB x 1 doses Less than 1.0 CALL PHYSICIAN and 4 gram IVPB x 1 doses Infuse at 1 gram/hr. Repeat Mag level next AM. Not for use in Patients with CrCl less than 30 mL/min. Group 2: oxyCODONE (Roxicodone) immediate release tablet 5 mgJump to med 5 mg, Oral, Every 4 hours PRN, moderate pain (4-6), Starting on Thu02/02/24 at 1210, Recovery & On Unit Or oxyCODONE (Roxicodone) immediate release tablet 10 mgJump to med 10 mg, Oral, Every 4 hours PRN, severe pain (7-10), Starting on Thu02/02/24 at 1210, Recovery & On Unit Scheduled Medication Order 02/23/2024 02/24/2024 02/25/2024 apixaban (Eliquis) tablet 5 mg 5 mg, Oral, 2 times daily, First dose on Thu02/15/24 at 2100, Anticoagulant 0842 (Given - Provider: Anika Hendrix RN)1999 (Given - Provider: Holly Montalvo RN) 0808 (Given - Provider: Mely Bronson LPN)193 (Given - Provider: Carly Mejia RN) 0853 (Given - Provider: Anika Hendrix RN) aspirin EC tablet 81 mg 81 mg, Oral, Daily, First dose on Thu02/15/24 at 2015, Do not crush, chew, or split. 0842 (Given - Provider: Anika Hendrix RN) 0809 (Given - Provider: Mely Bronson LPN) 0853 (Given - Provider: Anika Hendrix RN) atorvastatin (Lipitor) tablet 80 mg 80 mg, Oral, Daily, First dose on Thu02/15/24 at 2014 0841 (Given - Provider: Anika Hendrix RN) 0808 (Given - Provider: Mely Bronson LPN) 0900 (Canceled Entry - Provider: Automatic Discharge Provider - Comment: Automatically canceled at discontinue of medication order) ipratropium-albuterol (Duo-Neb) 0.5-2.5 mg/3 mL nebulizer solution 3 mL 3 mL, Nebulization, 3 times daily, First dose (after last modification) on Thu02/18/24 at 0930 0738 (Given - Provider: Rita Riojas RCP)1150 (Given - Provider: Rita Riojas RCP)2006 (Given - Provider: Priya Jensen, EUN) 0751 (Given - Provider: Hiram Cabrera RCP)1157 (Given - Provider: Hiram Cabrera RCP)1859 (Given - Provider: Domo Childers) 1057 (Not Given - Provider: Joslyn Mendoza RRT - Reason: Other)1150 (Given - Provider: Joslyn Mendoza, EUN)1400 (Canceled Entry - Provider: Automatic Discharge Provider - Comment: Automatically canceled at discontinue of medication order) metoprolol tartrate (Lopressor) tablet 12.5 mg (CANCELED) 12.5 mg, Oral, 2 times daily, First dose (after last modification) on Thu02/23/24 at 2100, Hold for SBP less than 105 and/or MAPs less than 65 and/or HR less than 60 1053 (Unheld by provider - Provider: 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, JOB ANALYSIS MANAGER - STRUCTURAL METAL FABRICATOR APPRENTICE)2000 (Given - Provider: Holly Montalvo, STANISLAW) 0808 (Given - Provider: Mely Bronson LPN) metoprolol tartrate (Lopressor) tablet 25 mg 25 mg, Oral, 2 times daily, First dose (after last modification) on Thu02/24/24 at 2100, Hold for SBP less than 105 and/or MAPs less than 65 and/or HR less than 60 193 (Given - Provider: Carly Mejia RN) 0853 (Given - Provider: Anika Hendrix RN) mometasone-formoterol (Dulera 100) 100-5 MCG/ACT inhaler 2 puff 2 puff, Inhalation, 2 times daily, First dose on Thu02/15/24 at 2014, @@@COMMON CANISTER@@@ Rinse mouth with water after use to reduce aftertaste and incidence of candidiasis. Do not swallow. 0843 (Given - Provider: Anika Hendrix RN)1930 (Given - Provider: Holly Montalvo RN) 0809 (Given - Provider: Mely Bronson LPN)193 (Given - Provider: Carly Mejia RN) 0856 (Given - Provider: Anika Hendrix RN) pantoprazole (ProtoNix) EC tablet 20 mg 20 mg, Oral, Daily before breakfast, First dose on Thu02/16/24 at 0600, Do not crush, chew, or split. 0611 (Given - Provider: Nasima Gonzalez RN) 0644 (Given - Provider: Holly Montalvo, STANISLAW) 0524 (Given - Provider: Carly Mejia RN) predniSONE (Deltasone) tablet 40 mg 40 mg, Oral, Daily, First dose on Thu02/22/24 at 1445, For 5 days 0842 (Given - Provider: Anika Hendrix RN) 0808 (Given - Provider: Mely Bronson LPN) 0853 (Given - Provider: Anika Hendrix RN) sodium chloride 0.9% (NS) flush 5-40 mL 5-40 mL, IntraVENous, Every 12 hours, First dose on Thu02/15/24 at 2014, For Line Patency: Peripheral IV = 5 mL; Midline or Central Line = 10 mL/lumen. If following IV push medication, administer flush at same rate as the IV push. Flush volume is determined by type of infusion therapy being given. For non-viscous solutions use: Peripheral IV = 5 mL Midline or Central Line = 10 mL/lumen For viscous solutions (i.e. blood components, parenteral nutrition, contrast media, or after obtaining blood sample) use: Peripheral IV = 10 mL Midline or Central Line = 20 mL/lumen 0815 (Given - Provider: Anika Hendrix RN)1930 (Given - Provider: Holly Montalvo RN) 0815 (Given - Provider: Mely Bronson LPN)2014 (Given - Provider: Carly Mejia RN) 0815 (Given - Provider: Anika Hendrix RN) sulfamethoxazole-trimet hoprim (Bactrim) 336 mg of trimethoprim in dextrose 5 % 500 mL IVPB 336 mg of trimethoprim (rounded from 339 mg of trimethoprim = 5 mg/kg of trimethoprim 67.8 kg), IntraVENous, at 333.3 mL/hr, Administer over 90 Minutes, Every 8 hours, First dose on Thu02/23/24 at 0700, Suspected Indication (Select all that apply): Pneumonia (HAP) 0842 (New Bag - Provider: Anika Hendrix RN)1012 (Stopped - Provider: Anika Hendrix RN)1606 (New Bag - Provider: Anika Hendrix RN)1736 (Stopped - Provider: Anika Hendrix RN)2350 (New Bag - Provider: Holly Montalvo RN) 0120 (Stopped - Provider: Holly Montalvo RN)0809 (New Bag - Provider: Mely Bronson LPN)0939 (Stopped - Provider: eMly Bronson LPN)1500 (New Bag - Provider: Mely Bronson LPN)1630 (Stopped - Provider: Mely Bronson LPN)2213 (New Bag - Provider: Carly Mejia RN)2343 (Stopped - Provider: Carly Mejia RN) 0523 (New Bag - Provider: Carly Mejia RN)0653 (Stopped - Provider: Craly Mejia RN)1500 (Canceled Entry - Provider: Automatic Discharge Provider - Comment: Automatically canceled at discontinue of medication order) tiotropium (Spiriva Respimat) 2.5 MCG/ACT inhaler 2 puff 2 puff, Inhalation, Daily, First dose on Thu02/15/24 at 2014, Instruct to hold breath for 10 seconds after each inhalation. Before first use, prime inhaler by actuating until aerosal cloud is seen, then actuating 3 more times. 0843 (Given - Provider: Anika Hendrix RN) 0809 (Given - Provider: Mely Bronson LPN) 0856 (Given - Provider: Anika Hendrix RN) PRN Medication Order 02/23/2024 02/24/2024 02/25/2024 acetaminophen (Tylenol) tablet 1,000 mg 1,000 mg, Oral, Every 8 hours PRN, mild pain (1-3), moderate pain (4-6), fever, headaches, Starting on Thu02/15/24 at 2001, Maximum dose of acetaminophen is 4000 mg from all sources in 24 hours. albuterol 108 (90 Base) MCG/ACT inhaler 2 puff 2 puff, Inhalation, Every 6 hours PRN, wheezing, shortness of breath, Starting on Thu02/15/24 at 2001, @@@COMMON CANISTER@@@ naloxone (Narcan) injection 0.4 mg 0.4 mg, IntraVENous, Every 5 min PRN, opioid reversal, respiratory depression, Starting on Thu02/15/24 at 2013, +++ For RR <10, pinpoint pupils, over sedation for opioid reversal - MUST notify buttoner provider immediately after first dose, may give IM or SQ if no IV access +++ ondansetron (Zofran) injection 4 mg(Linked Group 1) 4 mg, IntraVENous, Every 6 hours PRN, nausea, vomiting, Starting on Thu02/15/24 at 2001, 1st Line. Give IV if patient is unable to take orally. If inadequate response within 60 minutes, proceed to next-line agent or contact provider if no further options ordered. ondansetron ODT (Zofran-ODT) disintegrating tablet 4 mg(Linked Group 1) 4 mg, Oral, Every 8 hours PRN, nausea, vomiting, Starting on Thu02/15/24 at 2001, 1st Line. If inadequate response within 60 minutes, proceed to next-line agent or contact provider if no further options ordered. Patient should allow tablet to dissolve on tongue. Do not remove from blister pack until just before administering. oxyCODONE (Roxicodone) immediate release tablet 5 mg 5 mg, Oral, Every 6 hours PRN, severe pain (7-10), Starting on Thu02/15/24 at 2001 polyethylene glycol (PEG) 3350 (Miralax) packet 17 g 17 g, Oral, Daily PRN, constipation, Starting on Thu02/15/24 at 2001, 1st line for treatment of constipation - give scheduled if no bowel movement in past 24 hours. sodium chloride 0.9 % infusion 5-250 mL/hr, IntraVENous, PRN, if patient receiving piggyback infusions and maintenance fluids are not ordered OR KVO fluids to protect IV site / prevent frequent line interruptions / long duration, Starting on Thu02/15/24 at 2001, For piggyback infusion, administer at same rate as piggyback for a total of 25 mL. Enter 25 mL into dose field and piggyback rate into rate field of order. If piggyback is infusing at a rate less than 100 mL/hr, enter 25 mL into dose field and 100 mL/hr into rate field of order. For KVO fluids, enter rate of 20 mL/hr or less into rate field of order. sodium chloride 0.9 % infusion 250 mL/hr, IntraVENous, Administer over 10 Minutes, As needed, For use in priming line prior to transfusion (prime via gravity) and flush line post transfusion, Starting on Thu02/20/24 at 2020, For 1 dose, For use in priming line prior to transfusion (prime via gravity) and flush line post transfusion ONLY. Discontinue once line has been cleared of remaining blood product. sodium chloride 0.9% (NS) flush 5-40 mL 5-40 mL, IntraVENous, PRN, line care, After every IV line use, Starting on Thu02/15/24 at 2001, For Line Patency: Peripheral IV = 5 mL; Midline or Central Line = 10 mL/lumen. If following IV push medication, administer flush at same rate as the IV push. Flush volume is determined by type of infusion therapy being given. For non-viscous solutions use: Peripheral IV = 5 mL Midline or Central Line = 10 mL/lumen For viscous solutions (i.e. blood components, parenteral nutrition, contrast media, or after obtaining blood sample) use: Peripheral IV = 10 mL Midline or Central Line = 20 mL/lumen Linked Groups Order Group 1: ondansetron ODT (Zofran-ODT) disintegrating tablet 4 mgJump to med 4 mg, Oral, Every 8 hours PRN, nausea, vomiting, Starting on Thu02/15/24 at 2001, 1st Line. If inadequate response within 60 minutes, proceed to next-line agent or contact provider if no further options ordered. Patient should allow tablet to dissolve on tongue. Do not remove from blister pack until just before administering. Or ondansetron (Zofran) injection 4 mgJump to med 4 mg, IntraVENous, Every 6 hours PRN, nausea, vomiting, Starting on Thu02/15/24 at 2001, 1st Line. Give IV if patient is unable to take orally. If inadequate response within 60 minutes, proceed to next-line agent or contact provider if no further options ordered. Scheduled Medication Order 04/17/2024 04/18/2024 04/19/2024 Azithromycin (ZITHROMAX) tablet 500 mg (COMPLETED) 500 mg, Oral, ONCE, 1 dose, On Thu04/19/24 at 2015 195 (Given - Provid er: Kavon Carrera RN) Ipratropium-albuterol (DUONEB) 0.5-2.5 (3) MG/3ML nebulizer solution 3 mL (COMPLETED) 3 mL, Nebulization, ONCE, 1 dose, On Thu04/19/24 at 1815 1759 (Given - Provid er: Mora Aguiar, EUN) Ipratropium-albuterol (DUONEB) 0.5-2.5 (3) MG/3ML nebulizer solution 3 mL (COMPLETED) 3 mL, Nebulization, ONCE, 1 dose, On Thu04/19/24 at 1815 1758 (Given - Provid er: Mora Aguiar, EUN) methylPREDNISolone sodium succinate (SOLU-MEDROL) injection 125 mg (COMPLETED) 125 mg, Intravenous, ONCE, 1 dose, On Thu04/19/24 at 1900 1827 (Given - Provid er: Evelina Foley RN) metoprolol (LOPRESSOR) injection 5 mg (COMPLETED) 5 mg, Intravenous, ONCE, 1 dose, On Thu04/19/24 at 1815 1817 (Given - Provid er: Evelina Foley RN) Scheduled Medication Order 10/22/2024 10/23/2024 10/24/2024 bacitracin ointment 1 Application (COMPLETED) 1 Application, Topical, Once, On Thu10/24/24 at 0830, For 1 dose, Apply to: LEG 0850 (Given - Provid er: Lilly Tineo RN) Care Teams (unrecognized sec tion and content) Rn Rehab Relationship Specialty [place] [address] [place] [id number] PCP - General Internal Medicine 07/11/19 Rn Rehab Relationship Specialty Start Date End Date Artemio Ivan MD [address] [place] [id number] PCP - General Internal Medicine 07/11/19 Rn Rehab Relationship Specialty Start Date End Date Artemio Ivan MD [address] [place] [id number] PCP - General Internal Medicine 07/11/19 Rn Rehab Relationship Specialty Start Date End Date Artemio Ivan MD [address] [place] [id number] PCP - General Internal Medicine 07/11/19 Rn Rehab Relationship Specialty Start Date End Date Artemio Ivan MD [address] [place] [id number] PCP - General Internal Medicine 07/11/19 Team Status: Active Member Role Status Dates Dr. Estephania Alvarado MD Primary Care Provider Active Team Status: Inactive Member Role Status Dates Dr. Estephania Alvarado MD Primary Care Provider Active Lakshmi Jolly MANUFACTURING SHIFT SUPERVISOR, MANUFACTURING SHIFT SUPERVISOR-C Attending Provider, Referrin g Provider Active Team Status: Inactive Member Role Status Dates Dr. Estephania Alvarado MD Primary Care Provider, Referri ng Provider Active Nathalia Ibarra Attending Provider Active Team Status: Inactive Member Role Status Dates Dr. Estephania Alvarado MD Primary Care Provider, Referri ng Provider Active Dr. Bronson Beard MD Attending Provider Active Team Status: Inactive Member Role Status Dates Dr. Estephania Alvarado MD Primary Care Provider Active Nathalia Ibarra Active Dr. Bronson Beard MD Attending Provider, Referring Provider Active Team Status: Active Member Role Status Dates Dr. Estephania Alvarado MD Primary Care Provider Active Dr. Randy Ojeda MD Emergency Provider Active Dr. Mike Brown DO Admit Provider, At tending Provider, Other Provider Active Team Status: Active Member Role Status Dates Dr. Estephania Alvarado MD Primary Care Provider Active Dr. Randy Ojeda MD Emergency Provider Active Dr. Mike Brown DO Admit Provider, Attending Provid er Active Team Status: Active Member Role Status Dates Dr. Estephania Alvarado MD Primary Care Provider Active Dr. Randy Ojeda MD Emergency Provider Active Dr. Mike Brown DO Admit Provider, Other Provider A ctive Dr. Skylar Smith DO Attending Provider, Other Provide r Active Team Status: Inactive Member Role Status Dates Dr. Estephania Alvarado MD Primary Care Provider Active Dr. Randy Ojeda MD Emergency Provider Active Dr. Mike Brown DO Admit Provider, Other Provider A ctive Dr. Skylar Smtih DO Attending Provider Active Rn Rehab Relationship Specialty Start Date End Date Artemio Ivan MD [address] [place] [id number] PCP - General Internal Medicine 07/11/19 Team Status: Inactive Member Role Status Dates Dr. Estephania Alvarado MD Primary Care Provider, Referri ng Provider Active Dr. Chencho Madison MD Attending Provider Active Team Status: Inactive Member Role Status Dates Dr. Estephania Alvarado MD Primary Care Provider Active Nathalia Ibarra Active Dr. Tu Mcmahon MD Attending Provider, Referring Pro vider Active Team Status: Inactive Member Role Status Dates Dr. Estephania Alvarado MD Primary Care Provider, Attendi ng Provider Active Team Status: Inactive Member Role Status Dates Dr. Estephania Alvarado MD Primary Care Provider Active Dr. Chencho Madison MD Attending Provider, Referring Pr ovider Active Team Status: Active Member Role Status Dates Dr. Estephania Alvarado MD Primary Care Provider Active Dr. Chencho Madison MD Referring Provider, Other Provid er Active Dr. Luis Cheung MD Attending Provider Active Team Status: Inactive Member Role Status Dates Dr. Estephania Alvarado MD Primary Care Provider, Referri ng Provider Active Fouzia Aponte MANUFACTURING SHIFT SUPERVISOR, MANUFACTURING SHIFT SUPERVISOR-C Attending Provider Active Team Status: Inactive Member Role Status Dates Dr. Estephania Alvarado MD Primary Care Provider Active Fouzia Aponte MANUFACTURING SHIFT SUPERVISOR, MANUFACTURING SHIFT SUPERVISOR-C Attending Provider, Referring P rojuarez Active Team Status: Inactive Member Role Status Dates Dr. Estephania Alvarado MD Primary Care Provider, Referri ng Provider Active Lakshmi Jolly MANUFACTURING SHIFT SUPERVISOR, MANUFACTURING SHIFT SUPERVISOR-C Attending Provider Active Team Status: Active Member Role Status Dates Dr. Estephania Alvarado MD Primary Care Provider Active Dr. Nimesh Valentin MD Attending Provider Active Team Status: Active Member Role Status Dates Dr. Estephania Alvarado MD Primary Care Provider Active Fouzia Aponte MANUFACTURING SHIFT SUPERVISOR, MANUFACTURING SHIFT SUPERVISOR-C Attending Provider Active Rn Rehab Relationship Specialty Start Date End Date Estephania Alvarado MD [address] [place] [id number] PCP - General Pulmonary Disease 07/10/23 Team Status: Active Member Role Status Dates Dr. Estephania Alvarado MD Primary Care Provider Active Dr. Nimesh Valentin MD Attending Provider, Referring Pr ovider Active Team Status: Inactive Member Role Status Dates Dr. Estephania Alvarado MD Primary Care Provider Active Dr. Tu Mcmahon MD Attending Provider Active Team Status: Inactive Member Role Status Dates Dr. Estephania Alvarado MD Primary Care Provider Active Dr. Tu Mcmahon MD Attending Provider, Referring Pro vider Active Team Status: Inactive Member Role Status Dates Dr. Estephania Alvarado MD Primary Care Provider Active Dr. Mely Sanderson MD Emergency Provider Active Team Status: Inactive Member Role Status Dates Dr. Estephania Alvarado MD Primary Care Provider, Referri ng Provider Active Dr. Nimesh Valentin MD Attending Provider Active Team Status: Inactive Member Role Status Dates Dr. Estephania Alvarado MD Primary Care Provider Active Dr. Mely Sanderson MD Attending Provider, Emergency Provider Active Team Status: Inactive Member Role Status Dates Dr. Estephania Alvarado MD Primary Care Provider Active Dr. Nimesh Valentin MD Attending Provider, Referring Pr ovider Active Rn Rehab Relationship Specialty Start Date End Date Estephania Alvarado MD PCP - General Pulmonary Disease 07/10/23 Rn Rehab Relationship Specialty Start Date End Date Estephania Alvarado MD PCP - General Pulmonary Disease 07/10/23 Rn Rehab Relationship Specialty Start Date End Date Estephania Alvarado [address] [place] [address] PCP - General Internal Medicine 01/19/24 Rn Rehab Relationship Specialty Start Date End Date Estephania Alvarado [address] [place] [address] PCP - General Internal Medicine 01/19/24 Rn Rehab Relationship Specialty Start Date End Date Estephaina Alvarado [address] [place] [address] PCP - General Internal Medicine 01/19/24 Rn Rehab Relationship Specialty Start Date End Date Estephania Alvarado [address] [place] [address] PCP - General Internal Medicine 01/19/24 Rn Rehab Relationship Specialty Start Date End Date Estephania Alvarado [address] [place] [address] PCP - General Internal Medicine 01/19/24 Rn Rehab Relationship Specialty Start Date End Date Estephania Alvarado [address] [place] [address] PCP - General Internal Medicine 01/19/24 Rn Rehab Relationship Specialty Start Date End Date Estephania Alvarado [address] [place] [address] PCP - General Internal Medicine 01/19/24 Rn Rehab Relationship Specialty Start Date End Date Estephania Alvarado [address] [place] [address] PCP - General Internal Medicine 01/19/24 Rn Rehab Relationship Specialty Start Date End Date Estephania Alvarado [address] [place] [address] PCP - General Internal Medicine 01/19/24 Albina Green RNdevops engineerWooden Furniture Polisher Conference Services Manager 02/12/24 Poonam Combs I., MALACHI Felled Seam Operator Licensed Clinical Felled Seam Operator 02/12/24 Rn Rehab Relationship Specialty Start Date End Date Estephania Alvarado [address] [place] [address] PCP - General Internal Medicine 01/19/24 Albina Green RNdevops engineerWooden Furniture Polisher Conference Services Manager 02/12/24 Poonam Combs I., MALACHI Felled Seam Operator Licensed Clinical Felled Seam Operator 02/12/24 Rn Rehab Relationship Specialty Start Date End Date Estephania Alvarado MD PCP - General Pulmonary Disease 07/10/23 Rn Rehab Relationship Specialty Start Date End Date Estephania Alvarado MD PCP - General Pulmonary Disease 07/10/23 Team Status: Inactive Member Role Status Dates Dr. Estephania Alvarado MD Primary Care Provider Active Start: July 18, 2024 End: July 19, 2024 Dr. Nimesh Valentin MD Attending Provider Active Start: July 18, 2024 End: July 19, 2024 Dr. Nimesh Valentin MD Referring Provider Active Start: July 18, 2024 End: July 19, 2024 Team Status: Inactive Member Role Status Dates Dr. Estephania Alvarado MD Primary Care Provider Active Start: July 21, 2024 End: July 21, 2024 Dr. Estephania Alvarado MD Referring Provider Active Start: July 21, 2024 End: July 21, 2024 Artemio H Roof MANUFACTURING SHIFT SUPERVISOR, MANUFACTURING SHIFT SUPERVISOR-C Attending Provider Active S tart: July 21, 2024 End: July 21, 2024 Team Status: Inactive Member Role Status Dates Dr. Estephania Alvarado MD Primary Care Provider Active Start: July 27, 2024 End: July 27, 2024 Dr. Tu Mcmahon MD Attending Provider Active S tart: July 27, 2024 End: July 27, 2024 Dr. Tu Mcmahon MD Referring Provider Active S tart: July 27, 2024 End: July 27, 2024 Team Status: Inactive Member Role Status Dates Dr. Estephania Alvarado MD Primary Care Provider Active Start: August 12, 2024 End: August 12, 2024 Dr. Estephania Alvarado MD Referring Provider Active Start: August 12, 2024 End: August 12, 2024 Lakshmi Jolly MANUFACTURING SHIFT SUPERVISOR, MANUFACTURING SHIFT SUPERVISOR-C Attending Provider Active Start: August 12, 2024 End: August 12, 2024 Team Status: Inactive Member Role Status Dates Dr. Estephania Alvarado MD Primary Care Provider Active Start: August 19, 2024 End: August 19, 2024 Dr. Nimesh Valentin MD Attending Provider Active Start: August 19, 2024 End: August 19, 2024 Dr. Nimesh Valentin MD Referring Provider Active Start: August 19, 2024 End: August 19, 2024 Team Status: Inactive Member Role Status Dates Dr. Estephania Alvarado MD Primary Care Provider Active Start: August 31, 2024 End: August 31, 2024 Dr. Estephania Alvarado MD Attending Provider Active Start: August 31, 2024 End: August 31, 2024 Team Status: Inactive Member Role Status Dates Dr. Estephania Alvarado MD Primary Care Provider Active Start: August 31, 2024 End: August 31, 2024 Dr. Estephania Alvarado MD Attending Provider Active Start: August 31, 2024 End: August 31, 2024 Dr. Estephania Alvarado MD Referring Provider Active Start: August 31, 2024 End: August 31, 2024 Team Status: Inactive Member Role Status Dates Dr. Estephania Alvarado MD Primary Care Provider Active Start: September 16, 2024 End: September 16, 2024 Dr. Nimesh Valentin MD Attending Provider Active Start: September 16, 2024 End: September 16, 2024 Dr. Nimesh Valentin MD Referring Provider Active Start: September 16, 2024 End: September 16, 2024 Team Status: Inactive Member Role Status Dates Dr. Estephania Alvarado MD Primary Care Provider Active Start: October 10, 2024 End: October 17, 2024 Dr. Nimesh Valentin MD Attending Provider Active Start: October 10, 2024 End: October 17, 2024 Dr. Nimesh Valentin MD Referring Provider Active Start: October 10, 2024 End: October 17, 2024 Rn Rehab Relationship Specialty Start Date End Date Generic Provider, No Assigned Pcp, [place] [address] PCP - General Resin Mixer 10/24/24 Team Status: Inactive Member Role Status Dates Dr. Estephania Alvarado MD Primary Care Provider Active Start: October 26, 2024 End: October 26, 2024 Dr. Tu Mcmahon MD Attending Provider Active S tart: October 26, 2024 End: October 26, 2024 Dr. Tu Mcmahon MD Referring Provider Active S tart: October 26, 2024 End: October 26, 2024 Team Status: Inactive Member Role Status Dates Dr. Estephania Alvarado MD Primary Care Provider Active Start: October 26, 2024 End: October 26, 2024 Dr. Estephania Alvarado MD Attending Provider Active Start: October 26, 2024 End: October 26, 2024 Team Status: Inactive Member Role Status Dates Dr. Estephania Alvarado MD Primary Care Provider Active Start: November 14, 2024 End: November 14, 2024 Dr. Estephania Alvarado MD Referring Provider Active Start: November 14, 2024 End: November 14, 2024 Lakshmi Jolly MANUFACTURING SHIFT SUPERVISOR, MANUFACTURING SHIFT SUPERVISOR-C Attending Provider Active Start: November 14, 2024 End: November 14, 2024 Team Status: Active Member Role/Relationship Status Dates Dr. Estephania Alvarado MD Primary Care Provider Active Team Status: Inactive Member Role/Relationship Status Dates Dr. Estephania Alvarado MD Primary Care Provider Active Start: October 10, 2024 End: October 17, 2024 Dr. Nimesh Valentin MD Attending Provider Active Start: October 10, 2024 End: October 17, 2024 Dr. Nimesh Valentin MD Referring Provider Active Start: October 10, 2024 End: October 17, 2024 Team Status: Inactive Member Role/Relationship Status Dates Dr. Estephania Alvarado MD Primary Care Provider Active Start: October 26, 2024 End: October 26, 2024 Dr. Tu Mcmahon MD Attending Provider Active S tart: October 26, 2024 End: October 26, 2024 Dr. Tu Mcmahon MD Referring Provider Active S tart: October 26, 2024 End: October 26, 2024 Team Status: Inactive Member Role/Relationship Status Dates Dr. Estephania Alvarado MD Primary Care Provider Active Start: October 26, 2024 End: October 26, 2024 Dr. Estephania Alvarado MD Attending Provider Active Start: October 26, 2024 End: October 26, 2024 Team Status: Inactive Member Role/Relationship Status Dates Dr. Estephania Alvarado MD Primary Care Provider Active Start: November 14, 2024 End: November 14, 2024 Dr. Estephania Alvarado MD Referring Provider Active Start: November 14, 2024 End: November 14, 2024 Lakshmi Jolly MANUFACTURING SHIFT SUPERVISOR, MANUFACTURING SHIFT SUPERVISOR-C Attending Provider Active Start: November 14, 2024 End: November 14, 2024 Team Status: Inactive Member Role/Relationship Status Dates Dr. Estephania Alvarado MD Primary Care Provider Active Start: January 25, 2025 End: January 25, 2025 Dr. Tu Mcmahon MD Attending Provider Active S tart: January 25, 2025 End: January 25, 2025 Team Status: Inactive Member Role/Relationship Status Dates Dr. Estephania Alvarado MD Primary Care Provider Active Start: October 26, 2024 End: October 26, 2024 Dr. Tu Mcmahon MD Attending Provider Active S tart: October 26, 2024 End: October 26, 2024 Dr. Tu Mcmahon MD Referring Provider Active S tart: October 26, 2024 End: October 26, 2024 Team Status: Inactive Member Role/Relationship Status Dates Dr. Estephania Alvarado MD Primary Care Provider Active Start: October 26, 2024 End: October 26, 2024 Dr. Estephania Alvarado MD Attending Provider Active Start: October 26, 2024 End: October 26, 2024 Team Status: Inactive Member Role/Relationship Status Dates Dr. Estephania Alvarado MD Primary Care Provider Active Start: November 14, 2024 End: November 14, 2024 Dr. Estephania Alvarado MD Referring Provider Active Start: November 14, 2024 End: November 14, 2024 Lakshmi Jolly MANUFACTURING SHIFT SUPERVISOR, MANUFACTURING SHIFT SUPERVISOR-C Attending Provider Active Start: November 14, 2024 End: November 14, 2024 Team Status: Inactive Member Role/Relationship Status Dates Dr. Estephania Alvarado MD Primary Care Provider Active Start: January 25, 2025 End: January 25, 2025 Dr. Tu Mcmahon MD Attending Provider Active S tart: January 25, 2025 End: January 25, 2025 Team Status: Inactive Member Role/Relationship Status Dates Dr. Estephania Alvarado MD Primary Care Provider Active Start: February 13, 2025 End: February 13, 2025 Dr. Estephania Alvarado MD Referring Provider Active Start: February 13, 2025 End: February 13, 2025 Lakshmi Jolly MANUFACTURING SHIFT SUPERVISOR, MANUFACTURING SHIFT SUPERVISOR-C Attending Provider Active Start: February 13, 2025 End: February 13, 2025 Team Status: Inactive Member Role/Relationship Status Dates Dr. Estephania Alvarado MD Primary Care Provider Active Start: November 14, 2024 End: November 14, 2024 Dr. Estephania Alvarado MD Referring Provider Active Start: November 14, 2024 End: November 14, 2024 Lakshmi Jolly MANUFACTURING SHIFT SUPERVISOR, MANUFACTURING SHIFT SUPERVISOR-C Attending Provider Active Start: November 14, 2024 End: November 14, 2024 Team Status: Inactive Member Role/Relationship Status Dates Dr. Estephania Alvarado MD Primary Care Provider Active Start: January 25, 2025 End: January 25, 2025 Dr. Tu Mcmahon MD Attending Provider Active S tart: January 25, 2025 End: January 25, 2025 Dr. Tu Mcmahon MD Referring Provider Active S tart: January 25, 2025 End: January 25, 2025 Team Status: Inactive Member Role/Relationship Status Dates Dr. Estephania Alvarado MD Primary Care Provider Active Start: February 13, 2025 End: February 13, 2025 Dr. Estephania Alvarado MD Referring Provider Active Start: February 13, 2025 End: February 13, 2025 Lakshmi Jolly MANUFACTURING SHIFT SUPERVISOR, MANUFACTURING SHIFT SUPERVISOR-C Attending Provider Active Start: February 13, 2025 End: February 13, 2025 Team Status: Inactive Member Role/Relationship Status Dates Dr. Estephania Alvarado MD Primary Care Provider Active Start: March 01, 2025 End: March 01, 2025 Dr. Estephania Alvarado MD Attending Provider Active Start: March 01, 2025 End: March 01, 2025 Team Status: Inactive Member Role/Relationship Status Dates Dr. Estephania Alvarado MD Primary Care Provider Active Start: February 24, 2025 End: February 24, 2025 Dr. Tu Mcmahon MD Attending Provider Active S tart: February 24, 2025 End: February 24, 2025 Team Status: Inactive Member Role/Relationship Status Dates Dr. Estephania Alvarado MD Primary Care Provider Active Start: March 01, 2025 End: March 01, 2025 Dr. Estephania Alvarado MD Attending Provider Active Start: March 01, 2025 End: March 01, 2025 Goals (unrecognized section and content) Goals may be documented in a n alternate sectionGoals may be documented in an alternate sectionGoals may be documented in an alternate sectionGoals may be documented in an alternate sectionGoals may be documented in an alternate sectionGoals may be documented in an alternate sectionGoals may be documented in an alternate sectionGoals may be documented in an alternate sectionGoals may be documented in an alternate sectionGoals may be documented in an alternate sectionGoals may be documented in an alternate sectionGoals may be documented in an alternate sectionGoals may be documented in an alternate sectionGoals may be documented in an alternate sectionGoals may be documented in an alternate sectionGoals may be documented in an alternate sectionGoals may be documented in an alternate sectionGoals may be documented in an alternate section <item> Privacy Markings (unrecogniz ed section and [...] BE BASED ON THE PRIMARY CLINICAL RECORDS. [facility]. provides no warranty or guarantee of the accuracy or completeness of information in this document.
== END | disposition home or self-care (01) ==
LOC: CT 16:12
PROVIDERS: PCP Internal Medicine; Referring Provider Nurse Practitioner Acute Care; Visit Provider Nurse Practitioner Acute Care
DX: Z12.2 Encounter for screening for malignant neoplasm of respiratory organs (principal); F17.210 Nicotine dependence, cigarettes, uncomplicated
CPT/HCPCS: 71271

== ENCOUNTER → 2025-05-30 | Outpatient (CLI) | payer MEDICARE, SELFPAY ==
[2024-09-15 09:24] VITALS: BMI 21.3
--- NOTE | 2025-05-30 12:00 | PET_ITS ---
PROCEDURE: PET/PET/CT Tumor Base -Thigh Init
== END | disposition home or self-care (01) ==
LOC: ONC 11:52
PROVIDERS: PCP Internal Medicine; Referring Provider Nurse Practitioner Acute Care; Visit Provider Nurse Practitioner Acute Care
DX: R91.8 Other nonspecific abnormal finding of lung field (principal)
CPT/HCPCS: 78815; A9552

== ENCOUNTER → 2025-07-18 | Outpatient (CLI) | payer MEDICARE, SELFPAY ==
[2024-09-15 09:24] VITALS: BMI 21.3
--- NOTE | 2025-07-18 19:08 | CT_ITS ---
PROCEDURE: CHEST WITHOUT CONTRAST 07/18/2025 REASON FOR EXAM: DYSPNEA, LUNG MASS, SMOKER. TECHNIQUE: Chest CT without contrast. Coronal and Sagittal reconstruction series were provided. One or more dose reduction techniques were used (e.g., Automated exposure control, adjustment of the mA and/or kV according to patient size, use of iterative reconstruction technique COMPARISON: 05/05/2025. FINDINGS: Large consolidated density is noted in the posterior medial aspect of the right upper lobe and the medial and posterior aspect of the left lower lobe, which could represent airspace infiltrates or neoplastic process. This density is increased in size and extent since the previous study. Calcified granulomas are noted within both lungs. A noncalcified 6 mm nodule is noted within the right upper lobe (series 4, image 34), unchanged from the previous study. This soft tissue density extends into the left hilar region, which may include lymphadenopathy. Lymphadenopathy is noted in the aortopulmonic window. Calcified subcarinal and right hilar lymph nodes. Severe centrilobular and panlobular emphysematous changes throughout both lungs. The heart is mildly enlarged. A left-sided cardiac pacemaker is in place. Moderate atherosclerotic calcifications. Median sternotomy. Calcified splenic granulomas. Incompletely imaged endovascular stent within the abdominal aorta. Moderate mid to lower thoracic spondylosis, unchanged. Mild S shaped thoracolumbar scoliosis, unchanged. CT/Chest without Contrast IMPRESSION: Large consolidated density in the left lung and extending into the left hilar r egion, as described above. This could represent airspace infiltrates or neoplastic process, and is increased since the previous study. Mediastinal and probable left hilar lymphadenopathy. Severe centrilobular and panlobular pulmonary emphysema, unchanged. Mild cardiomegaly, unchanged. Reading Location: [id number]
== END | disposition home or self-care (01) ==
LOC: CT 19:07
PROVIDERS: PCP Internal Medicine; Referring Provider Internal Medicine; Visit Provider Internal Medicine
DX: R91.8 Other nonspecific abnormal finding of lung field (principal); J44.9 Chronic obstructive pulmonary disease, unspecified; R94.2 Abnormal results of pulmonary function studies
CPT/HCPCS: 71250